=== PATIENT | male | born 1945 | race Caucasian/White ===

== ENCOUNTER 2022-01-23 04:47 | Outpatient (RCR) | payer MEDICAID, SELFPAY | END 2022-07-13 14:50 | disposition home or self-care (01) | LOC: MOW 04:47 | PROVIDERS: PCP Family Medicine; Visit Provider Family Medicine | DX: Z76.0 Encounter for issue of repeat prescription (principal) | CPT/HCPCS: S5170 ==

== ENCOUNTER 2022-01-31 12:59 | Outpatient (CLI) | payer OTHER, MEDICAID, SELFPAY ==
--- OUTSIDE RECORDS SUMMARY | 2022-03-13 16:15 | XMS_ITS | Encounter Summary ---
:1945 Author Organization Department of [facility] rs Address [address] [place] [address] Support Name Relationship Address Phone SIRIA THOMPSON Unavailable [address], [place] [address] JANEY LOPEZ Unavailable [address] [place] [address] [facility], Unavailable [address] [facility] [place] [address] Insurance Providers: All historical and current Section Date Range: From patient's date of to the date document was created.This section includes the names of all active insurance providers for the patient. Insurance Type of Plan Start of End of Group Member Insurance Policy P atient's Provider Coverage Name Policy Policy Number ID Provider's Maldonado's Relationship Coverage Coverage Telephone Name to Policy Number Maldonado MEDICARE MEDICARE PART Sep 26, PART A [id number] DONNA ALMANZAR (WNR) (M) A 2012 [phone] GIO LANDAVERDE MEDICARE MEDICARE PART Sep 26, PART B [id number] DONNAAMARILIS ALMANZAR (WNR) (M) B 2012 [id number] [phone] GIO LANDAVERDE Selected Encounter This section includes the information on record at NH for the Encounter. Date/Time Encounter Type Encounter Reason Provider Source Description Jan 17, 2022 OFFICE O/P EST PRIMARY ICD-10-CM M17.0 VAN 11:00 AM MOD 30-39 MIN CARE/MEDICINE Bilateral primary VRANKEN,BENJ A osteoarthritis of MIN E knee with Provider Comments: Bilateral Primary Osteoarthritis of Knee IHE Encounter Template Text not used by [facility] Assessments - Encounter Diagnoses This section includes the primary and secondary diagnoses documented for the Encounter. Date/Time Primary/Secondary Diagnosis Name Provider Source Diagnosis Jan 17, 2022 PRIMARY Bilateral primary DON Negrete [facility] 12:06 PM osteoarthritis of DAX CANALES knee MIN E Jan 17, 2022 SECONDARY longterm (current) DON MONTELONGO [facility] 12:06 PM use of VRDAX COREY anticoagulants MIN E Jan 17, 2022 SECONDARY Type 2 diabetes [facility] 12:06 PM mellitus with VRANKENDAX unspecified MIN E complications Jan 17, 2022 SECONDARY Unspecified atrial DON SCHWARTZ [facility] 12:06 PM fibrillation DAX CANALES MIN E Plan of Treatment: Future Appointments (+ 6 months) and Future Tests (+/- 45 days) The Plan of Treatment section includes future care activities for the patient from all NH treatmentfacilities. This section includes future appointments and future orders which are active, pending orscheduled.Future Appointments This section includes appointments that were scheduled to occur 6 months from the date of the Encounter, up to a maximum of 20 appointments. The data comes from all NH treatment facilities. Appointment Date/Time Appointment Type Appointment Facili ty Name Feb 02, 2022 11:16 AM AMBULATORY - NONE [facility] Feb 09, 2022 01:00 PM AMBULATORY - SURGERY [facility] Apr 11, 2022 11:00 AM AMBULATORY - MEDICINE [facility] Apr 30, 2022 10:30 AM AMBULATORY - PSYCHIATRY [facility] Lab Results: +/- 30 days of the encounter This section includes the Chemistry and Hematology Lab Results on record with NH for the patient. Radiology Reports and Pathology Reports are provided separately, in subsequent sections.Lab Results This section contains the Chemistry/Hematology Results that were resulted 30 days before or 30 daysafter the date of the Encounter. Date/Time Source Result Type Result - Unit Interpretation Reference Range Comment December 21, 2021 10:[address] [facility] HEMOGLOBIN A1C Specim en Type: BLOOD No comment enter ed. Ordering Provid er: VIPUL CRNAE Report Released Date/Time: Oct 11, 2021 08:32 AM Reporting Lab: [facility] [address] [place] [facility] [id number] Performing Lab: [facility] [id number] HEMOGLOBIN A1C 8.0 H 4.0-6.0 Vital Signs: All taken on the encounter date This section contains inpatient and outpatient Vital Signs collected on the date of the Encounter. Date/Time Temperature Pulse Blood Respiratory SP02 Pain Height Weight Alex dy Source Pressure Rate Mass Index Jan 17 115/77 16 /min 97 % 3 68 in 211 lb 32 [place] 2021 11:16 /min mm[Hg] [facility] Social History: Smoking Status (Most current) and Tobacco Use (All prior to encounter date) This section includes the most current, and the historical, smoking and tobacco-related health factors from the NH facility where the Encounter took place.Current Smoking Status This section includes the most current smoking, or tobacco-related health factor, from the [facility] where the Encounter took place. Date/Time Current Smoking Status Comment Facility Aug 21, 2021 01:00 PM NH-TOBACCO FORMER USER [facility] Tobacco Use History This section includes a history of the smoking, or tobacco- related health factors, that were collected on or before the date of the Encounter. The data comes from the [facility] where the Encounter took place. Date/Time Smoking Status/Tobacco Use Comment [facility] Aug 21, 2021 01:00 PM NH-TOBACCO QUIT [address] [facility] Jul 09, 2018 08:58 AM VA-TOBACCO FORMER USER [facility] Jul 09, 2018 08:58 AM NH-TOBACCO QUIT [address] [facility] Jul 18, 2017 09:58 AM FORMER TOBACCO USER 7Y OR [address] [facility] Aug 14, 2016 10:59 AM FORMER TOBACCO USER 7Y OR [facility] [facility] Jun 29, 2015 02:03 PM FORMER TOBACCO USER 7Y OR [facility] [facility] Jan 06, 2014 03:04 PM FORMER TOBACCO USER 7Y OR [facility] [facility] Jan 04, 2012 08:36 AM FORMER TOBACCO USER 7Y OR [facility] [facility] Radiology Reports: +/- 30 days of the encounter Radiology Reports For cases when an order for radiology services may have been completed prior to the date of the Encounter, the report list includes the Radiology Reports that were completed up to 30 days before date of the Encounter. For cases when an order for radiology services may have been completed after the date of the Encounter, the report list also includes the Radiology Reports that were completed up to 30days after date of the Encounter. The data comes from all NH treatment facilities. Date/Time Radiology Report Provider Source Jan 17, 2022 12:17 PM KNEE LEFT 4 VIEWS: LYNNE MARTÍNEZ [facility] GIO THOMPSON [id number] -[id number] M Exm Date: JAN 17, 2022@12:17 Req Phys: MAI MORALEZ Pat Loc: [facility]SP APACT L RES 0 2 WH 4F (Req' Img Loc: MAIN X-RAY Service: Unknown (Case [id number] COMPLETE) KNEE LEFT 4 VIEWS (RAD Adele led) CPT:70908 Reason for Study: knee pain Clinical History: IS NOT under investigation for COVID-19 or is COVID-19 negative knee pain Report Status: Verified Date Reported: JAN 17, 2022 Date Verified: JAN 17, 2022 Water Meter Reader E-Sig:/ES/LYNNE MARTÍNEZ DO Report: EXAMINATION: KNEE LEFT 3 VIEWS, KNEE RIGHT 4 EWS 01/17/2022 12:17 PM INDICATION: knee pain COMPARISON: Left knee 02/29/2016 FINDINGS: Left knee: No acute fracture or dislo cation. No suspicious bone lesion. Increased severe narrow ing of the medial compartment with minimal genu varum. Associated bony ridging along the medial joint line. Mild osteophytic l ipping in the lateral compartment. Moderate patellofemoral alfonzo int degenerative change with joint space narrowing and osteophyt e formation, slightly increased from prior. No suprapatellar joint effusion. There is atherosclerotic calcification. Right knee: No acute fracture or dislocation. N o suspicious bone lesion. Moderate narrowing of the medial compar tment with bony ridging along the joint line. Minimal genu varu m. Mild osteophytic lipping in the lateral compartment. Moderate patellofemoral joint degenerative change with j oint space narrowing and osteophyte formation. Small enthe sophyte at the superior pole the patella. No significant supra patellar joint effusion. There is atherosclerotic calcificatio n. Impression: Bilateral degenerative changes most pronounced in the medial and patellofemoral compartments. Primary Interpreting Staff: LYNNE MARTÍNEZ DO, RADIOLOGIST (Water Meter Reader) /DDS Jan 17, 2022 12:17 PM KNEE RIGHT 4 VIEWS: LYNNE MARTÍNEZ [facility] GIO THOMPSON [id number] -1945 M Exm Date: JAN 17, 2022@12:17 Req Phys: MORALEZJONATHAN MCMILLANChristos Calabrese Pat Loc: [facility] APACT L RES 0 2 WH 4F (Req' Img Loc: MAIN X-RAY Service: Unknown (Case [id number] COMPLETE) KNEE RIGHT 4 VIEWS (HETAL guerra) CPT:20239 Reason for Study: knee pain Clinical History: IS NOT under investigation for COVID-19 or is COVID-19 negative knee pain Report Status: Verified Date Reported: JAN 17, 2022 Date Verified: JAN 17, 2022 Water Meter Reader E-Sig:/ES/LYNNE MARTÍNEZ DO Report: EXAMINATION: KNEE LEFT 3 VIEWS, KNEE RIGHT 4 EWS 01/17/2022 12:17 PM INDICATION: knee pain COMPARISON: Left knee 02/29/2016 FINDINGS: Left knee: No acute fracture or dislo cation. No suspicious bone lesion. Increased severe narrow ing of the medial compartment with minimal genu varum. Associated bony ridging along the medial joint line. Mild osteophytic l ipping in the lateral compartment. Moderate patellofemoral alfonzo int degenerative change with joint space narrowing and osteophyt e formation, slightly increased from prior. No suprapatellar joint effusion. There is atherosclerotic calcification. Right knee: No acute fracture or dislocation. N o suspicious bone lesion. Moderate narrowing of the medial compar tment with bony ridging along the joint line. Minimal genu varu m. Mild osteophytic lipping in the lateral compartment. Moderate patellofemoral joint degenerative change with j oint space narrowing and osteophyte formation. Small enthe sophyte at the superior pole the patella. No significant supra patellar joint effusion. There is atherosclerotic calcificatio n. Impression: Bilateral degenerative changes most pronounced in the medial and patellofemoral compartments. Primary Interpreting Staff: LYNNE MARTÍNEZ DO, RADIOLOGIST (Water Meter Reader) /DDS Encounter Notes: All associated encounter notes This section contains the clinical notes associated to the Encounter. Date/Time Encounter Note(s) Provider Source Jan 17, 2022 11:54 INTERNAL MEDICINE NOTE: DON ALEXANDRE [facility] TITLE: MEDICINE CLINIC NOTE DAX CANALES STANDARD TITLE: INTERNAL MEDICINE NOTE DATE OF NOTE: JAN 17, 2022@11:54 ENTRY DATE: JAN 17, 2022@11:54:21 AUTHOR: PRANEETH CHAUDHARI EXP COSIGNER: URGENCY: STATUS: COMPLETED I have reviewed this patient's history, pertinen t physical examination, laboratory, and (when obtained) radiologic or ot her diagnostic tests with the Internal Medicine Resident evaluating this p atient. I agree with the treatment plan as outlined. This plan was review ed with the resident on the date of this note. 76 yo M w/ hx of AF (apixaba n), HTN, DMT2, mild cog dis, who has left knee pain. taking ibuprofen, whcih we have strongly discour aged. can use tylenol/ diclofenac gel PRN. ask him to see Ortho to get evaluated + x-rays. would liek to get PT. A1c up from 7 to 8. off metformin and diarrhea h as improved. had bariatric surgery, which is a concern in starting semaglut brady, although not an absolute CI. no clear indication for empagliflozin, from standpoint of hx of CAD or CHF, in addition to neg urine for microalb, but it se ems the more appropriate treatment to start, in an attempt to dis courage further weight gain. if vet is agreeable, will start empagliflozin, but trim ba ck glargine insulin by 20% first. /pablo/ ROWDY CHAUDHARI MD Staff Physician Signed: 01/17/2022 12:06 Jan 17, 2022 11:19 INTERNAL MEDICINE OUTPATIENT NOTE: JYOTSNA MEIER [facility] TITLE: MEDICINE CLINIC NURSING NOTE STANDARD TITLE: INTERNAL MEDICINE OUTPATIENT NOT E DATE OF NOTE: JAN 17, 2022@11:19 ENTRY DATE: JAN 17, 2022@11:19:36 AUTHOR: JYOTSNA MEIER EXP COSIGNER: URGENCY: STATUS: COMPLETED TYPE OF VISIT: Appointment Check In Type of appointment: In-person appointment REASON FOR VISIT: Check up for public health care. ALLERGIES: Patient has answered NKA VITAL SIGNS: Blood Pressure: 115/77 (01/17/2022 11:16) Pulse: 65 (01/17/2022 11:16) Respiration: 16 (01/17/2022 11:16) Temperature: 98.7 F [37.1 C] (05/13/2020 08:28) Weight: 211 lb [95.71 kg] (01/17/2022 11:16) Height: 68 in [172.7 cm] (01/17/2022 11:16) BMI: 32.1 O2 Sat: 97% (01/17/2022 11:16) Pain: 3 (01/17/2022 11:16) PAIN SCREEN: Patient is not having significant pain that the y wish to discuss with their provider today. MEDICATION Over the Counter/Herbal Medications: The patient states that they take some outside medications and/or herbals. COVID-19 Immunization: Moderna COVID-19 Vaccine given previously Patient received a prior dose of the Moderna CO VID-19 Vaccine. Date: November 29, 2021 Series: Series 4 Location: [facility] // JYOTSNA MEIER LPN STAFF DANCE COSTUME DESIGNER Signed: 01/17/2022 11:22 Jan 17, 2022 08:37 INTERNAL MEDICINE NOTE: MAI MORALEZ [facility] TITLE: MEDICINE CLINIC NOTE STANDARD TITLE: INTERNAL MEDICINE NOTE DATE OF NOTE: JAN 17, 2022@08:37 ENTRY DATE: JAN 22, 2022@08:37:45 AUTHOR: MAI MORALEZ EXP COSIGNER: URGENCY: STATUS: COMPLETED GIO SIRIABHAVYA THOMPSON is a 76 year old MALE wit h the following chief complaint: Nurse's Note Reviewed. Follow up for HPI/ROS: Gio Thompson is a pleasant 76 YO male with a Pmhx significant for HTN, T2DM, bariatric surgery, atrial fibrillation on apixab an, bipolar disorder and generalized anxiety disorder who came to the clinic today along with his legal Guardian Janey for a routine follow up and fernanda luation of knee pain Left > right. Patient has been having for a while however now it is getting difficult to manage. He is taking Ibuprofen and found relieve . He experiences pain almost every day.It feels achy/sore. Activity makes it worse. Left >right. No recent injury to the knee. Has been using dicol fenac gel as well. Interested in doing physical therapy at a nearby facility instead of NH. He did not notice any joint redness, warmth or tenderness. Patient was on metformin and insulin for his alonso betes. However he has stopped taking metformin a few weeks ago on his own. He has a long standing history of diarrhea from metformin. He was previously able to deal with it now he thinks that it is affecting his quality og life so he s topped taking it. Since then he did not experience diarrhea. He is currently taking 15 U of glargine. His most recent A1c was 8% which was up by 1% from heriberto heller. Past medical history/Active Problems: Active problems - Computerized Problem List is t he source for the followin. Essential hypertension (SNOMED CT 13628527) 2. Major depressive disorder (SNOMED CT 9866833 00) 3. Generalized anxiety disorder (SNOMED CT 2180 1239) 4. Primary Obesity 5. Bronchiectasis (SNOMED CT 49796991) 6. Gastroesophageal Reflux Disorder * 7. Bariatric Surgery Status 8. Cataracts (SNOMED CT 90841972) 9. Hypermetropia/Hyperopia 10. Astigmatism, Unspec 11. Presbyopia 12. Atrial fibrillation (SNOMED CT 21333263) 13. Varicose veins of lower extremity 14. Compulsive gambling 15. Bipolar disorder (SNOMED CT 15494088) 16. Mild cognitive disorder 17. Type 2 diabetes mellitus 18. Long-term current use of anticoagulant Allergies: Patient has answered NKA Active Outpatient Medications (excluding Supplie s): Outpatient Medications Status 1) ACCU-CHEK GUIDE (GLUCOSE) TEST STRIP USE 1 ST RIP ACTIVE EVERY DAY TO CHECK BLOOD SUGAR--USE WITHIN 3 MINUTES OF REMOVING FROM CONTAINER 2) ALBUTEROL 90MCG (CFC-F) 200D ORAL INHL INHALE 1-2 ACTIVE PUFFS BY INHALATION EVERY 4 HOURS NEEDED FOR IMMEDIATE RELIEF OF SHORTNESS OF BREATH *SHAKE WELL* 3) APIXABAN 5MG TAB TAKE ONE TABLET BY MOUTH JESUS RY 12 ACTIVE HOURS TO PREVENT AND/OR TREAT BLOOD CLOTS 4) ATORVASTATIN CALCIUM 20MG TAB TAKE ONE-HALF T ABLET BY ACTIVE MOUTH AT BEDTIME 5) CALCIUM CARB 500MG (CA 200MG) CHEW TAB CHEW O NE ACTIVE TABLET BY MOUTH TWICE A DAY 6) CHOLECALCIF 25MCG (D3-1,000UNIT) TAB TAKE ONE TABLET ACTIVE (S) BY MOUTH EVERY DAY 7) CYANOCOBALAMIN 1000MCG TAB TAKE ONE TABLET BY MOUTH ACTIVE EVERY DAY 8) DICLOFENAC NA 1% TOP GEL APPLY 2 GRAMS TOPICA LLY FOUR ACTIVE TIMES A DAY NEEDED TO AFFECTED AREA FOR PAIN . *USE DOSE CARD IN BOX TO MEASURE DOSE. MAX 32 G LINDSEY PER DAY. 9) EMPAGLIFLOZIN 25MG TAB TAKE ONE-HALF TABLET B Y MOUTH ACTIVE EVERY MORNING 10) INSULIN,GLARGINE 100 UNT/ML 3ML SOLOSTAR INJ ECT 12 ACTIVE UNITS UNDER THE SKIN EVERY DAY 11) MAGNESIUM OXIDE 400MG TAB TAKE ONE TABLET BY MOUTH ACTIVE EVERY DAY 12) METOPROLOL SUCCINATE 50MG SA TAB TAKE ONE TA BLET BY ACTIVE MOUTH EVERY DAY FOR HEART AND BLOOD PRESSURE 13) MULTIVIT/OPHTH AREDS2/LUTE/ZEAX CAP/TAB TAKE 1 ACTIVE CAP/TAB BY MOUTH TWICE A DAY WITH MEALS 14) MULTIVITAMIN CAP/TAB TAKE 1 TABLET BY MOUTH EVERY DAY ACTIVE 15) OMEPRAZOLE 20MG EC CAP TAKE TWO CAPSULES BY MOUTH ACTIVE EVERY DAY ON AN EMPTY STOMACH, AT LEAST 30 ELIF TIMO PRIOR TO A MEAL FOR REFRACTORY GERD 16) QUETIAPINE FUMARATE 25MG TAB TAKE ONE TO THR EE TABS ACTIVE BY MOUTH AT BEDTIME FOR SLEEP MEDICATION RECONCILIATION Outpatient At this visit I have reviewed the medication li st, and discussed relevant medications with the patient/surrogate . An updated patient medication list was given to the participant(s). ( ) No Change (X ) Change/New: I have noted this on the papa garcía's copy of the medication list. Education on NEW Medication: I have reviewed the medication list for possible drug:drug interactions or contraindicat ions prior to ordering NEW medications during this visit. (X )Patient instructed. I noted new medication on patient's copy of the medication list. Patient sent to Pharmacist for education on new medication. ( )Patient ( )Family Member ( )Caregiver indica levi readiness to learn and has been instructed on action, dose, frequency and side effects of the new medication and I noted new medication on patricia mcclain's copy of the medication list. ( ) Verbalizes understanding of instructions. ( ) Needs additional reinforcement of instructi ons(sent to Pharmacist). ( )Patient unable to participate in learning/in struction. EXAM: VS: Temp: 98.7 F [37.1 C] (05/13/2020 08:28) BP: 115/77 (01/17/2022 11:16) Pulse:65 (01/17/2022 11:16) Resp: 16 (01/17/2022 11:16) Pain: 3 (01/17/2022 11:16) Weight: WEIGHTS IN LAST 6 MONTHS: 211 (JAN 17, 2022@11:16:17) 218 (OCT 04, 2021@14:10:28) O2 sat: 97% (01/17/2022 11:16) General:Pleasant, alert and oriented X3, no foca l deficit HEENT:NC/AT,MMM Lungs:clear breath sounds bilaterally, no wheezi ng or crackles CV:normal rate, regular rhythm Abdomen:soft,non tender Extremities:warm, well perfused Skin:visible skin appears wnl Neuro:alert and oriented X3, no focal deficit Data/Labs: LAB RESULTS LAST 48 HRS - NONE FOUND Assessment and Plan: Gio Thompson is a pleasant 76 YO male with a Pmhx significant for HTN, T2DM, bariatric surgery, atrial fibrillation on apixab an, bipolar disorder and generalized anxiety disorder who came to the clinic today along with his legal Guardian Janey for a routine follow up and fernanda luation of knee pain Left > right. #Bilateral Knee pain L>R #Possible OA patient reported bilateral knee pain L>R for a w hile. No trauma, redness, warmth or edema reported. Takes Ibuprofen. Also applies diclofenac gel sometimes. He has hx of left knee trauma in 2016 . Xray at that time showed degenrative changes with moderate medial compartment narrowing. He was managed conservatively. -Ordered Bilaetral knee Xray -Discussed supportive management with Ice, tylen ol, Physical therapy. -patient prefers to have PT at a nearby facility -Strongly discouraged use of oral NSAID as patie nt currently on DOAC. Okay to use Tylenol instead. -Encouraged using topical diclofenac gel. -Orthopedics referral for steroid shot if above measures insufficient to control his pain. #T2DM Recent hemoglobin A1c is at 8. patient has stopp ed taking metformin due to diarrhea that was affecting his quality of life. Current BMI is 32.15 so increasing insulin dose would not be appropriate . He has hx of bariatric surgery so semaglutide is not an appropr iate option. Would start himn on SGLT2 inhibitor even though he does not have hx of CHF /CKD/CAD. -discontinued Metformin -start Empagliflozin 12.5 mg daily (discussed ri sk of UTI) -decrease insulin to 12 U daily to avoid hypogly cemia due to starting Empagliflozin. -RTC in 3 months or sooner with PCP. Patient staffed with Dr. Chaudhari Education on Treatment Plan: Patient indicates readiness to learn, verbalizes understanding, agreement and satisfaction with the treatment plan. Denies fur ther questions. Patient indicates readiness to learn and has bee n instructed on action, dose, frequency, and side effects of medications. Audrey ent verbalizes understanding. The medication list above was reviewed with the patient at today's visit. I have indicated discrepancies under each medica tion that is not being taken as prescribed. I have updated the medicine s under the med tab as appropriate. /pablo/ MAI MORALEZ MD RESIDENT Signed: 01/22/2022 09:41
--- OUTSIDE RECORDS SUMMARY | 2022-03-13 16:15 | XMS_ITS | Continuity of Care Document ---
:1945 Author Organization [facility] Care Team Providers Name Role Phone [facility] Unavailable Unavailable Problems Combined list of problems from Department of Defense and Veterans Affairs facilities. It does not include entries that were removed or entered in error. Problem Status Onset Problem Type Date of Comments Source Date Resolution Astigmatism, Unspec Active Condition [facility] Atrial fibrillation Active Condition [place] (SNOMED CT 09287573) [facility] Bariatric Surgery [place] Condition [place] Status (ICD-9-CM [facility] V45.86) Bipolar disorder Active Condition [place] (SNOMED CT 12091527) [facility] Bronchiectasis Active Condition [place] (SNOMED CT 28583573) [facility] Cataracts (SNOMED CT Active Condition [place] [id number]) [facility] Compulsive gambling Active Condition [facility] Essential Active Condition [place] hypertension (SNOMED [place] HCS CT 34040917) Gastroesophageal Active Condition [place] Reflux Disorder * [facility] (ICD-9-CM 530.81) Generalized anxiety Active Condition [place] disorder (SNOMED CT [place] [facility] 58223241) Hypermetropia/Hyperop Active Condition [place] ia [facility] Long-term current use Active Condition [place] of anticoagulant [facility] Major depressive Active Condition [place] disorder (SNOMED [place] [facility] 007167040) Mild cognitive Active Condition [place] disorder [facility] Presbyopia Active [place] [facility] Primary Obesity Active Condition [place] (ICD-9-CM 278.00) [facility] Type 2 diabetes Active Condition [place] mellitus [facility] Varicose veins of Active Condition [place] lower extremity [facility] Diagnosis: ICD-10-CM active Diagnosis [place] M17.0 Bilateral [facility] primary osteoarthritis of kneew[place] Provider Comments: Bilateral primary osteoarthritis of knee Diagnosis: ICD-10-CM active Diagnosis [place] M17.0 Bilateral [facility] primary osteoarthritis of [place] Provider Comments: Bilateral Primary Osteoarthritis of Knee Diagnosis: ICD-10-CM active Diagnosis [place] Z23 Encounter for [facility] immunizationwith Provider Comments: Encounter for any immunization Diagnosis: ICD-10-CM active Diagnosis [place] F33.1 Major [facility] depressive disorder, recurrent, moderatewith Provider Comments: Major depressive disorder (SCT 338713896) Diagnosis: ICD-10-CM active Diagnosis [place] Z79.01 alf [facility] (current) use of anticoagulantswith Provider Comments: Long-term current use of anticoagulant (SNOMED CT 449670232) Diagnosis: ICD-10-CM active Diagnosis [place] I10 Essential [facility] (primary) hypertensionwith Provider Comments: Essential hypertension (SCT 43146529) Diagnosis: ICD-10-CM active Diagnosis [place] F39 Unspecified mood [facility] [affective] disorderwith Provider Comments: Mood disorder (SCT 77495477) Diagnosis: ICD-10-CM active Diagnosis [place] 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 Medications provided include 1) outpatient medications from the last 15 months, and 2) patient-reported medications. Medication Details Route Status Patient Prescription Prescription Last Ordering Order Source Instructions Expires Number Dispense Provider Date Date ALBUTEROL INHALE INHALA ACTIVE 10/05/2022 [id number] CR[place]KEITH 10/04/ [place] 90MCG/ACTUA 1-2 TION 2 FFREY J 2021 [place] A T (CFC-F) PUFFS BY [facility] INHL,ORAL,8 INHALATI .5GM DOSE ON EVERY COUNTER 4 HOURS NEEDED FOR IMMEDIAT E RELIEF OF SHORTNES S OF BREATH *SHAKE WELL* APIXABAN TAKE ONE ORALLY ACTIVE 2022 [id number] RICHA SUE 10/11/ [place] 5MG TAB TABLET 2 NIFER KAYLA 2021 [place] [facility] BY MOUTH HCS EVERY 12 HOURS TO PREVENT AND/OR TREAT BLOOD CLOTS APIXABAN TAKE ONE ORALLY DISCONT 11/03/2021 [id number] DEVIN LEVYKEITH 10/04/ [place] 5MG TAB TABLET INUED 2 FFREY J 2021 [place] [facility] BY MOUTH [facility] EVERY 12 HOURS TO PREVENT BLOOD CLOTS ARIPIPRAZOL TAKE ORALLY ACTIVE 01/27/2023 [id number] NEHEMIAH SON, [place] E 30MG TAB ONE-HALF 2 USHA 2021 [place] [facility] A TABLET [facility] BY MOUTH EVERY DAY ARIPIPRAZOL TAKE ORALLY DISCONT 01/16/2022 [id number] THOMP SON, [place] E 30MG TAB ONE-HALF INUED 2 LORETA E 2021 [place] [facility] TABLET HCS BY MOUTH EVERY DAY ATORVASTATI TAKE ORALLY ACTIVE 10/05/2022 [id number] KEITH CRANE [place] CA 20MG ONE-HALF 2 [facility] J 2021 [place] [facility] TAB TABLET HCS BY MOUTH AT BEDTIME BUPROPION TAKE ONE ORALLY ACTIVE 01/27/2023 [id number] AT NESSAON, [place] HCL 150MG TABLET 2 USHA 2021 [place] [facility] 24HR TAB,SA BY MOUTH [facility] EVERY MORNING BUPROPION TAKE ONE ORALLY DISCONT 01/16/2022 [id number] TH OMPSON, [place] HCL 150MG TABLET INUED 2 LORETA E 2021 [place] [facility] 24HR TAB,SA BY MOUTH HCS EVERY MORNING CALCIUM CHEW ONE ORALLY ACTIVE 10/05/2022 [id number] KEITH RCANE 10/04/ [place] CARBONATE TABLET 2 [facility] 2021 [place] [facility] 500MG BY MOUTH HCS TAB,CHEWABL TWICE A E DAY CHOLECALCIF TAKE ONE ORALLY ACTIVE 10/05/2022 [id number] H KEITH EATON 10/04/ [place] GABRIELA 25MCG TABLET 2 [facility] 2021 [place] [facility] A (1,000UNIT) BY MOUTH HCS TAB EVERY DAY CYANOCOBALA TAKE ONE ORALLY ACTIVE 10/05/2022 [id number] H KEITH EATON 10/04/ [place] MIN 1000MCG TABLET 2 [facility] 2021 [place] [facility] TAB BY MOUTH HCS EVERY DAY DICLOFENAC APPLY 4 TOPICA ACTIVE 02/10/2023 [id number] HARPREET [place]NE[place] 02/09/ [place] NA 1% GRAMS LLY 2 HN H 2021 [place] [facility] GEL,TOP TOPICALL HCS Y FOUR TIMES A DAY NEEDED TO AFFECTED AREA FOR PAIN. *USE DOSE CARD IN BOX TO MEASURE DOSE. MAX 32 GRAMS PER DAY. DICLOFENAC APPLY 2 TOPICA DISCONT 10/05/2022 [id number] ADDIE TURPINKEITH 10/04/ [place] NA 1% GRAMS LLY INUED 2 2021 [place] [facility] GEL,TOP TOPICALL HCS Y FOUR TIMES A DAY NEEDED TO AFFECTED AREA FOR PAIN. *USE DOSE CARD IN BOX TO MEASURE DOSE. MAX 32 GRAMS PER DAY. EMPAGLIFLOZ TAKE ORALLY ACTIVE 01/18/2023 [id number] KIRTS JASKARAN 01/18/ [place] IN 25MG TAB ONE-HALF 2 2021 [place] [facility] TABLET HCS BY MOUTH EVERY MORNING INSULIN,GLA INJECT SUBCUT ACTIVE 01/18/2023 [id number] PARK NMAI 01/18/ [place] RGINE,HUMAN 12 UNITS ANEOUS 2 2021 [place] [facility] 100 UNIT/ML UNDER HCS INJ,SOLOSTA THE SKIN R,3ML EVERY DAY INSULIN,GLA INJECT SUBCUT DISCONT 10/06/2022 [id number] ADDIE OSMANGAELKEITH 10/08/ [place] RGINE,HUMAN 15 UNITS ANEOUS INUED 2 2021 [place] [facility] 100 UNIT/ML UNDER (EDIT) HCS INJ,SOLOSTA THE SKIN R,3ML EVERY DAY MAGNESIUM TAKE ONE ORALLY ACTIVE 10/06/2022 [id number] DEVIN LEVY,KEITH 10/08/ [place] OXIDE 400MG TABLET 2 2021 [place] [facility] TAB BY MOUTH HCS EVERY DAY METFORMIN TAKE TWO ORALLY DISCONT 10/05/2022 [id number] KEITH STERN 10/04/ [place] HCL 500MG TABLETS INUED 2 2021 [place] [facility] A 24HR TAB,SA BY MOUTH HCS TWICE A DAY METOPROLOL TAKE ONE ORALLY ACTIVE 10/05/2022 [id number] H KEITH EATON 10/04/ [place] SUCCINATE TABLET 2 2021 [place] [facility] 50MG TAB,SA BY MOUTH HCS EVERY DAY FOR HEART AND BLOOD PRESSURE MULTIVIT/OP TAKE 1 ORALLY ACTIVE 12/12/2022 [id number] DEVIN LEVY,KEITH 12/12/ [place] HTH CAP/TAB 2 2021 [place] [facility] AREDS2/LUTE BY MOUTH HCS IN/ZEAXANTH TWICE A IN CAP/TAB DAY WITH MEALS MULTIVITAMI TAKE 1 ORALLY ACTIVE 10/05/2022 [id number] KEITH DORADO 10/04/ [place] NS CAP/TAB TABLET 2 JONNY 2021 [place] [facility] A BY MOUTH HCS EVERY DAY OMEPRAZOLE TAKE TWO ORALLY ACTIVE 01/11/2023 [id number] MO JULIA, 01/11/ [place] 20MG CAP,EC CAPSULES 2 MARIUSZ 2022 O [place] [facility] BY MOUTH M HCS EVERY DAY ON AN EMPTY STOMACH, AT LEAST 30 MINUTES PRIOR TO A MEAL FOR REFRACTO RY GERD OMEPRAZOLE TAKE ONE ORALLY DISCONT 10/05/2022 [id number] H KEITH EATON 10/04/ [place] 20MG CAP,EC CAPSULE INUED 2 JONNY 2021 [place] [facility] BY MOUTH (EDIT) HCS EVERY DAY ON AN EMPTY STOMACH, AT LEAST 30 MINUTES PRIOR TO A MEAL FOR REFRACTO RY GERD QUETIAPINE TAKE ONE ORALLY ACTIVE 01/27/2023 [id number] A TKINSON, 01/30/ [place] FUMARATE TO THREE 2 2021 [place] [facility] 25MG TAB TABS BY [facility] MOUTH AT BEDTIME FOR SLEEP QUETIAPINE TAKE ONE ORALLY DISCONT 08/22/2022 [id number] H ERMANSEN 08/21/ [place] FUMARATE TO THREE INUED 2 EMMY A 2021 [place] [facility] 25MG TAB TABS BY [facility] MOUTH AT BEDTIME FOR SLEEP VENLAFAXINE TAKE ONE ORALLY ACTIVE 01/27/2023 [id number] PURI, 01/30/ [place] HCL 150MG CAPSULE 2 USHA 2021 [place] [facility] 24HR CAP,SA BY MOUTH [facility] EVERY DAY VENLAFAXINE TAKE ONE ORALLY DISCONT 01/16/2022 [id number] TANGELA, 10/18/ [place] HCL 150MG CAPSULE INUED 2 LORETA Baldo 2021 [place] [facility] 24HR CAP,SA BY MOUTH HCS EVERY DAY Allergies, Adverse Reactions, Alerts Combined list of allergies from Department of Defense and Veterans Affairs facilities. It does not include entries that were removed or entered in error. Substance Category Reaction Severity Reaction Status Date Comments S ource type Reported SULFAMETHOXA Propensity Acute Propensity active [place] ZOLE to adverse renal to adverse 2 LI S VA reactions impairment reactions H CS to drug to drug (finding) (finding) Immunizations Combined list of available immunizations from the Department of Defense and Veterans Affairs facilities. Immunization Series Date Administered Site Reaction Lot CVX Drug St atus Comments Source Given By Number Code [employer] Worker ZOSTER 2 complet [place] RECOMBINANT 2021 ed [place] [facility] COVID-19 4 complet [place] (MODERNA), 2021 ed JIM S VA MRNA, LNP-S, H CS PF, 100 MCG/0.5ML DOSE OR 50 MCG/0.25ML DOSE ZOSTER 1 complet [place] RECOMBINANT 2021 ed [place] [facility] COVID-19 3 complet [place] (MODER[place]), 2020 ed JIM S [facility] MRNA, LNP-S, H CS PF, 100 MCG/0.5ML DOSE OR 50 MCG/0.25ML DOSE INFLUENZA, complet [place] UNSPECIFIED 2020 ed [place] [facility] FORMULATION HC S COVID-19 1 complet [place] (MODERNA), 2020 ed JIM S [facility] MRNA, LNP-S, H CS PF, 100 MCG/0.5 ML DOSE COVID-19 1 complet [place] (MODERNA), 2020 ed JIM S [facility] MRNA, LNP-S, H CS PF, 100 MCG/0.5 ML DOSE INFLUENZA, complet [place] INJECTABLE, 2019 ed [place] [facility] QUADRIVALENT, HCS PRESERVATIVE FREE ZOSTER 1 complet [place] RECOMBINANT 2018 ed [place] [facility] INFLUENZA, complet [place] SEASONAL, 2018 ed [place] [facility] INJECTABLE, HC S PRESERVATIVE FREE INFLUENZA, complet [place] HIGH DOSE 2017 ed [place] [facility] SEASONAL HCS PNEUMOCOCCAL complet MERC K, [place] POLYSACCHARID 2017 ed [id number], [place] [facility] E PPV23 EX HCS 01/01/2018 INFLUENZA, complet [place] HIGH DOSE 2017 ed [place] [facility] SEASONAL HCS PNEUMOCOCCAL complet 000 [place] CONJUGATE PCV 2016 ed [place] [facility] 13 HCS INFLUENZA, complet [place] SEASONAL, 2014 ed [place] [facility] INJECTABLE HCS INFLUENZA, complet [place] SEASONAL, 2013 ed [place] [facility] INJECTABLE HCS INFLUENZA, complet [place] UNSPECIFIED 2012 ed [place] [facility] FORMULATION HC S TDAP complet 2R45M/10/ M [place] 2012 ed 04/12 [place] HCS ZOSTER LIVE complet J0016 98/0 [place] 2012 ed 8May14 [place] [facility] INFLUENZA, complet [place] UNSPECIFIED 2012 ed [facility] FORMULATION HC S INFLUENZA, complet [place] UNSPECIFIED 2010 ed [facility] [place] [facility] FORMULATION HC S PNEUMOCOCCAL, complet [place] UNSPECIFIED 2010 ed [place] [facility] FORMULATION HC S TD(ADULT) complet [place] UNSPECIFIED 2007 ed [place] [facility] FORMULATION HC S Results Combined list of recent chemistry, hematology and other laboratory results from Department of Defense and Veterans Affairs, ranging from 15 months to all on record, depending upon the facility. Order Results Value Reference Date Interpretation Specimen Commen ts Source Name Range HEMOGLOBI HEMOGLOBIN 8.0 4.0 - 6.0 12/21 H Specimen Type: BLOOD [place] A1C A1C/HEMOGLO /2021 No comment e ntered. IS [facility] BIN.TOTAL Ordering Prov ider: VIPUL CRANE IN BLOOD Report Release d Date/Time: Oct 11, 2021 08:32 AM Reporting Lab: [facility] [address] [facility] [place] [address] Performing Lab: [facility] [place] [address] VITAMIN E ALPHA 11.9 5.7 - 19.9 10/04 Specimen Ty pe: SERUM [place] TOCOPHEROL /2021 Comment: Lev els of alpha-tocopherol <5 mg/L are consistent with Vitamin E deficiency in adults. Vitamin supplementation within 24 hours prior to blood draw may affect the accuracy of the results IS [facility] [MASS/VOLUM . This test was developed and its analytical performance characteristics have been determined by [employer]. It has not been cleared or approved by the U.S. Food a E] IN SERUM nd Drug Admi nistration. This assay has been validated pursuant to the CLIA regulations and is used for clinical purposes. Test Performed by [facility], [employer], [address] [place], [place] Devante Meyer M.D., Ph.D., Director of Laboratories , CLIA [id number] Ordering Provid er: VIPUL CRANE Report Released Date/Time: Oct 04, 2021 02:12 PM Reporting Lab: [facility] [address] [facility] [place] [address] Performing Lab: [address] VITAMIN E BETA+GAMMA <1.0 - 4.3 10/04 Specimen Ty pe: SERUM [place] TOCOPHEROL /2021 Comment: Lev els of alpha-tocopherol <5 mg/L are consistent with Vitamin E deficiency in adults. Vitamin supplementation within 24 hours prior to blood draw may affect the accuracy of the results IS [place] HCS [MASS/VOLUM . This test was developed and its analytical performance characteristics have been determined by [employer] [place], [place]. It has not been cleared or approved by the U.S. Food a E] IN SERUM nd Drug Admi nistration. This assay has been validated pursuant to the CLIA regulations and is used for clinical purposes. Test Performed by [facility], [employer], [address] [place], [place] Devante Meyer M.D., Ph.D., Director of Laboratories , CLIA [id number] Ordering Provid er: VIPUL CRANE Report Released Date/Time: Oct 04, 2021 02:12 PM Reporting Lab: [facility] [address] [facility] [place] [address] Performing Lab: [address] VITAMIN A RETINOL 60 38 - 98 10/04 Specimen Type: SERUM [place] [MASS/VOLUM /2021 Comment: Vi tamin supplementation within 24 hours prior to blood draw may affect the accuracy of the results. This test was developed and its analytical performance characteristics have been determined IS [place] HCS E] IN SERUM by [employer] [place]. It has not been cleared or approved by the U.S. Food and Drug Administration. This assay has been validated pursuant to the CLIA regulations and is [place] PLASMA used for clini lance purposes. Test Performed by [facility], [facility], [address] [place] [address] Devante Meyer M.D., Ph.D., Director of Laboratories , CLIA [id number] Ordering Provid er: VIPUL CRANE Report Released Date/Time: Oct 04, 2021 02:12 PM Reporting Lab: [facility] [address] [place] [address] Performing Lab: [address] 12 COBALAMIN 604 213 - 816 10/04 Specimen Typ e: SERUM [place] (VITAMIN /2021 No comment ente red. IS [facility] B12) Ordering Provid er: VIPUL CRANE [MASS/VOLUM Report Rele ased Date/Time: Oct 04, 2021 02:12 PM E] IN SERUM Reporting L ab: [facility] OR PLASMA [facility] [address] Performing Lab: [facility] [place] [address] TSH THYROTROPIN 1.78 0.35 - 10/04 Specimen Typ e: PLASMA [place] W/REFLEX [UNITS/VOLU 4.94 No comment entered. IS [facility] TO FREE ME] IN Ordering Provid er: VIPUL CRANE T4 SERUM OR Report Release d Date/Time: Oct 04, 2021 02:12 PM PLASMA Reporting Lab: [facility] [address] [place] [address] Performing Lab: [facility] [place] [address] FOLATE FOLATE 17.7 7.0 10/04 Specimen Type: S MAKI [place] [MASS/VOLUM /2021 No comment e ntered. IS [facility] E] IN SERUM Ordering Pr ovider: VIPUL CRANE [place] PLASMA Report Releas ed Date/Time: Oct 04, 2021 02:12 PM Reporting Lab: [facility] [address] [place] [address] Performing Lab: [facility] [place] [address] VIT D 25-HYDROXYV 79 12 - 50 03/ H Specimen Typ e: SERUM [place] 25-OH,TOT ITAMIN D3 /2021 No comment e ntered. IS [facility] AL [MASS/VOLUM Ordering Pr ovider: VIPUL CRANE] IN SERUM Report Rele ased Date/Time: Oct 04, 2021 02:12 PM OR PLASMA Reporting Lab : [facility] [address] [facility] [place] [address] Performing Lab: [facility] [address] [facility] [place] [address] HEMOGLOBI HEMOGLOBIN 7.1 4.0 - 6.0 03 H Specimen Type: BLOOD [place] N A1C A1C/HEMOGLO /2021 No comment e ntered. IS [facility] BIN.TOTAL Ordering Prov ider: VIPUL CRANE IN BLOOD Report Release d Date/Time: Oct 04, 2021 02:12 PM Reporting Lab: [facility] [address] [facility] [place] [address] Performing Lab: [facility] [address] [facility] [place] [address] LIPID CHOLESTEROL 114 <199 - 199 10/04 Specimen Type: PLASMA [place] PANEL,NON [MASS/VOLUM /2021 No comment entered. IS [facility] -FASTING E] IN SERUM Ordering P rovider: VIPUL CRANE [place] PLASMA Report Releas ed Date/Time: Oct 04, 2021 02:12 PM Reporting Lab: [facility] [address] [facility] [place] [address] Performing Lab: [facility] [address] [facility] [place] [address] LIPID CHOLESTEROL 45 40 10/04 Specimen Typ e: PLASMA [place] PANEL,NON IN HDL /2021 No comment ent ered. IS [facility] -FASTING [MASS/VOLUM Ordering P rovider: VIPUL CRANE] IN SERUM Report Rele ased Date/Time: Oct 04, 2021 02:12 PM [place] PLASMA Reporting Lab : [facility] [address] [facility] [place] [address] Performing Lab: [facility] [address] [facility] [place] [address] LIPID CHOLESTEROL 55 <99 - 99 10/04 Specimen Ty pe: PLASMA [place] PANEL,NON IN LDL /2021 No comment ent ered. IS [facility] -[facility] [MASS/VOLUM Ordering P rovider: VIPUL CRANE] IN SERUM Report Rele ased Date/Time: Oct 04, 2021 02:12 PM OR PLASMA Reporting Lab : [facility] BY [address] [address] CALCULATION Performing Lab: [facility] [address] [place] [address] LIPID CHOLESTEROL 14 <29 - 29 10/04 Specimen Ty pe: PLASMA [place] PANEL,NON IN VLDL /2021 No comment ent ered. IS [place] [facility] -FASTING [MASS/VOLUM Ordering P rovider: VIPUL CRANE] IN SERUM Report Rele ased Date/Time: Oct 04, 2021 02:12 PM [place] PLASMA Reporting Lab : [facility] BY [place] [address] CALCULATION Performing Lab: [facility] [address] [place] [address] LIPID CHOLESTEROL 69 <129 - 129 10/04 Specimen Type: PLASMA [place] PANEL,NON NON HDL /2021 No comment ent ered. IS [place] [facility] -FASTING [MASS/VOLUM Ordering P rovider: VIPUL CRANE] IN SERUM Report Rele ased Date/Time: Oct 04, 2021 02:12 PM OR PLASMA Reporting Lab : [facility] [address] [place] [address] Performing Lab: [facility] [place] [address] LIPID TRIGLYCERID 69 <149 - 149 10/04 Specimen Type: PLASMA [place] PANEL,NON E /2021 No comment ent ered. IS [place] [facility] -FASTING [MASS/VOLUM Ordering P rovider: VIPUL CRANE] IN SERUM Report Rele ased Date/Time: Oct 04, 2021 02:12 PM OR PLASMA Reporting Lab : [facility] [place] [address] Performing Lab: [facility] [address] [facility] [place] [address] CBC LEUKOCYTES 8.98 4.0 - 11.0 10/04 Specimen T ype: BLOOD [place] [#/VOLUME] /2021 No comment en tered. IS [facility] IN BLOOD BY Ordering Pr ovider: VIPUL CRANE AUTOMATED Report Releas ed Date/Time: Oct 04, 2021 02:12 PM COUNT Reporting Lab: [facility] [address] [place] [address] Performing Lab: [facility] [address] [facility] [place] [address] CBC ERYTHROCYTE 4.19 4.6 - 6.2 10/04 L Specimen T ype: BLOOD [place] S /2021 No comment enter ed. IS [facility] [#/VOLUME] Ordering Pro vider: VIPUL CRANE IN BLOOD BY Report Rele ased Date/Time: Oct 04, 2021 02:12 PM AUTOMATED Reporting Lab : [facility] [address] [facility] [place] [address] Performing Lab: [facility] [address] [facility] [place] [address] CBC HEMOGLOBIN 12.1 13.5 - 03 L Specimen Type : BLOOD [place] [MASS/VOLUM 17.9 /2021 No comment e ntered. IS [facility] E] IN BLOOD Ordering Pr ovider: VIPUL CRANE Report Released Date/Time: Oct 04, 2021 02:12 PM Reporting Lab: [facility] [address] [place] [address] Performing Lab: [facility] [address] [facility] [place] [address] CBC HEMATOCRIT 36.4 41 - 54 10/04 L Specimen Type : BLOOD [place] [VOLUME /2021 No comment enter ed. IS [place] [facility] FRACTION] Ordering Prov ider: VIPUL CRANE OF BLOOD BY Report Rele ased Date/Time: Oct 04, 2021 02:12 PM AUTOMATED Reporting Lab : [facility] [place] [address] Performing Lab: [facility] [address] [place] [address] CBC MCV 86.9 80 - 100 10/04 Specimen Type: BLOOD [place] [ENTITIC /2021 No comment ente red. IS [facility] VOLUME] BY Ordering Pro vider: VIPUL CRANE AUTOMATED Report Releas ed Date/Time: Oct 04, 2021 02:12 PM COUNT Reporting Lab: [facility] [address] [facility] [place] [address] Performing Lab: [facility] [address] [facility] [place] [address] CBC MCH 28.9 27 - 33 10/04 Specimen Type: B LOOD [place] [ENTITIC /2021 No comment ente red. IS [facility] MASS] BY Ordering Provi tosin: VIPUL CRANE AUTOMATED Report Releas ed Date/Time: Oct 04, 2021 02:12 PM COUNT Reporting Lab: [facility] [address] [place] [address] Performing Lab: [facility] [address] [address] CBC MCHC 33.2 32.0 - 10/04 Specimen Type: B LOOD [place] [MASS/VOLUM 37.5 /2021 No comment e ntered. IS [facility] E] BY Ordering Provid er: VIPUL CRANE AUTOMATED Report Releas ed Date/Time: Oct 04, 2021 02:12 PM COUNT Reporting Lab: [facility] [address] [place] [address] Performing Lab: [facility] [address] [place] [address] CBC PLATELETS 279 150 - 400 10/04 Specimen Typ e: BLOOD [place] [#/VOLUME] /2021 No comment en tered. IS [place] [facility] IN BLOOD BY Ordering Pr ovider: VIPUL CRANE AUTOMATED Report Releas ed Date/Time: Oct 04, 2021 02:12 PM COUNT Reporting Lab: [facility] [address] [place] [facility] [place] [address] Performing Lab: [facility] [address] [facility] [place] [address] CBC PLATELET 10.5 7.4 - 10.4 03 H Specimen Typ e: BLOOD [place] MEAN VOLUME /2021 No comment e ntered. IS [place] [facility] [ENTITIC Ordering Provi tosin: VIPUL CRANE VOLUME] IN Report Relea sed Date/Time: Oct 04, 2021 02:12 PM BLOOD BY Reporting Lab: [facility] AUTOMATED [address] [facility] [place] [address] COUNT Performing Lab: [facility] [address] [facility] [place] [address] CBC ERYTHROCYTE 13.2 11.5 - 10/04 Specimen Typ e: BLOOD [place] DISTRIBUTIO 14.5 /2021 No comment e ntered. [place] [facility] N WIDTH Ordering Provid er: VIPUL CRANE [RATIO] BY Report Relea sed Date/Time: Oct 04, 2021 02:12 PM AUTOMATED Reporting Lab : [facility] [place] [address] Performing Lab: [facility] [address] [facility] [place] [address] Vital Signs Combined list of inpatient and outpatient Vital Signs from Department of Defense and Veterans Affairs, ranging from 12 months to all on record, depending upon the facility. Vital Sign Value Date Comments Source SYSTOLIC BLOOD PRESSURE 115 01/17/2022 11:16:17 [facility] DIASTOLIC BLOOD PRESSURE 77 01/17/2022 11:16:17 [facility] PULSE OXIMETRY 97% 01/17/2022 11:16:17 [facility] WEIGHT 211 01/17/2022 11:16:17 [facility] BMI 32kg/m2 01/17/2022 11:16:17 [facility] PAIN 3 01/17/2022 11:16:17 [facility] HEIGHT 68 01/17/2022 11:16:17 [facility] PULSE 65 01/17/2022 11:16:17 [facility] RESPIRATION 16 01/17/2022 11:16:17 [facility] SYSTOLIC BLOOD PRESSURE 138 10/04/2021 14:10:28 [facility] DIASTOLIC BLOOD PRESSURE 84 10/04/2021 14:10:28 [facility] PULSE OXIMETRY 99% 10/04/2021 14:10:28 [facility] WEIGHT 218 10/04/2021 14:10:28 [facility] BMI 33kg/m2 10/04/2021 14:10:28 [facility] PAIN 5 10/04/2021 14:10:28 [facility] HEIGHT 68 10/04/2021 14:10:28 [facility] PULSE 89 10/04/2021 14:10:28 [facility] RESPIRATION 14 10/04/2021 14:10:28 [facility] SYSTOLIC BLOOD PRESSURE 170 08/21/2021 13:06:44 [facility] DIASTOLIC BLOOD PRESSURE 80 08/21/2021 13:06:44 [facility] WEIGHT 224.2 08/21/2021 13:06:44 [facility] BMI 34kg/m2 08/21/2021 13:06:44 [facility] PULSE 74 08/21/2021 13:06:44 [facility] RESPIRATION 14 08/21/2021 13:06:44 [facility] Encounters Combined list of: 1) Encounters from Department of Veterans Affairs facilities going back up to the last 18 months, not all VA inpatient encounters are included; 2) Encounters from the Department of Defense facilities going back up to 280 months. Location Location Encounter Encounter Reason Attending ADM DC Stat us Disposition Source Details Type Number For Provider Date Date Visit Outpatient [id number] 09/21 [place] Encounter [id number] /2020 [place] Outpatient 20973-4.61 / [place] Encounter [id number] /2020 [facility] 32476-8.61 10/13 [place] Encounter [id number] /2020 [facility] 96062-561 10/15 [place] Encounter [id number] /2020 [facility] HC PRO 59890-861 Christos Wise 10/24 [place] [facility] PHONE CALL [id number] is: CEASAR JIM S VA 21-30 MIN ICD-10- HCS CM Z79.01 alf (curren t) use of anticoa gulants
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 gulants Outpatient 23943-761 BROMAGHIM, 11/05 [place] Encounter [id number] [facility] Out[facility] 79876-6.61 11/14 [place] Encounter [id number] /2020 [facility] Outpatient 15837-261 11/15 [place] Encounter [id number] /2020 [facility] [place] [facility] [place] 98937-261 11/22 [place] Encounter [id number] /2020 [place] Outpatient 36042-8.61 Deangelo PRIETO 11/22 [place] Encounter [id number] ERRY /2020 [facility] [place] [facility] [place] 22013-9.61 11/23 [place] Encounter [id number] /2020 [place] Outpatient 82470-8.61 12/02 [place] Encounter [id number] /2020 [facility] [place] [facility] [place] 02076-4.61 12/12 [place] Encounter [id number] /2020 [place] [address]-6.61 Diagnos POEPPING,H 12/12 [place] [facility] EST [id number] is: SHILOH L [facility] 15 MIN ICD-10- HCS CM Z79.01 alf (curren t) use of anticoa gulants
[facility] Provide r Comment s: alf (curren t) use of anticoa gulants Outpatient 60697-1.61 12/23 [place] Encounter [id number] /2020 [facility] 44791-8.61 02/07 [place] En[place] [id number] /2020 [facility] 28532-9.61 04/14 [place] En[place] [id number] /2020 [facility] 54036-0.61 04/19 [place] Encounter [id number] /2020 [facility] 83757-3.61 05/01 [place] En[place] [id number] /2020 [facility] 25186-5.61 10 [place] En[place] [id number] /2020 [facility] 81759-6.61 05/19 [place] En[place] [id number] /2020 [facility] 25675-5.61 07/20 [place] Encounter [id number] /2020 [facility] OFFICE O/P 47576-9.61 Diagnos HERMTRINHEN, 08/21 [place] [id number] is: EMMY A [facility] V A 40-54 MIN ICD-10- HCS CM F39 Unspeci fied mood [affect jennifer] disorde r
w [facility] Provide r Comment s: Mood disorde r ([facility] [id number] 5) Outpatient 60264-4.61 08/25 [place] Encounter [id number] /2021 [facility] 99259-0.61 03/ [place] Encounter [id number] /2021 [facility] OFFICE O/P 55284-8.61 Diagnos JESSICA, 10/04 [place] [id number] is: RAFFI F [facility] V A 60-74 MIN ICD-10- HCS CM I10 Essenti al (primar y) hyperte nsion<b r/>with Provide r Comment s: Clintenti al hyperte nsion ([facility] [id number] 0) Outpatient 20038-7.61 10/11 [place] Encounter [id number] /2021 [facility] [place] [address]-6 Diagnos MARYJO SUE 10/11 [place] DIG [id number] is: IFER KAYLA [facility] A ASSMT&MGMT ICD-10- HCS 21+ CM 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
wi th Provide r Comment s: Long-te rm current use of anticoa gulant ([facility] CT 9803279 03) Outpatient 37452-6.61 10/11 [place] Encounter [id number] /2021 [facility] OFFICE O/P 97647-6 Diagnos Kayla PURI 10/18 [place] [id number] is: AVID /2021 [facility] 40-54 MIN ICD-10- [facility] CM F33.1 Major depress jennifer disorde r, recurre nt, moderat e
w ith Provide r Comment s: Major depress jennifer disorde r ([facility] [id number] 00) Outpatient 73828-2.61 10/20 [place] Encounter [id number] /2021 [place] Outpatient 54878-0.61 05/04 [place] Encounter [id number] /2021 [facility] Outpatient 42269-2.61 05/ [place] Encounter [id number] /2021 [facility] Outpatient 64522-7.61 05/ [place] Encounter [id number] /2021 [facility] Outpatient 78043-5 BLAKE REY 12/04 [place] Encounter [id number] [place] M [facility] Outpatient 23961-2.61 05/12 [place] Encounter [id number] /2021 [facility] Outpatient 94816-8.12/15 [place] Encounter [id number] [facility] Outpatient 98742-1.61 12/15 [place] Encounter [id number] [facility] IMMUNIZATI 57274-8.61 Diagnos LEATHA BROWN 12/21 [place] ADMIN [id number] is: S A [facility] A ICD-10- HCS CM Z23 Encount er for immuniz ation<b r/>with Provide r Comment s: Encount er for any immuniz ation Outpatient 03755-7.61 12/22 [place] Encounter [id number] [facility] Outpatient 74747-1.61 01/03 [place] Encounter [id number] [facility] OFFICE O/P 53014-6.61 Diagnos VAN 01/17 [place] MOD [id number] is: ALLY,BE [facility] VA 30-39 MIN ICD-10- [place] HCS CM 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
with Provide r Comment s: Bilater al Primary Osteoar thritis of Knee Outpatient 02857-6.61 OTF, 02/02 [place] Encounter [id number] RA R /2021 [facility] OFFICE 05791-0.61 HELEN Camara 02/09 [place] CONSULTATI [id number] is: N H /2021 [facility] VA ON ICD-10- HCS CM 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
with Provide r Comment s: 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 Outpatient 20504-5.61 02/09 [place] Encounter [id number] [facility] Social History Combined list of available smoking, tobacco, and other social history from Department of Defense andVeterans Affairs facilities. Social History Type Response Date Comment Source Tobacco smoking status VA-TOBACCO QUIT 15 YRS 08/21/2021 [facility] NHIS OR MORE History of tobacco use VA-TOBACCO FORMER USER 08/21/2021 [facility] History of tobacco use VA-TOBACCO QUIT 15 YRS 07/09/2018 [facility] OR MORE History of tobacco use FORMER TOBACCO USER 7Y 07/18/2017 [facility] OR GREATER History of tobacco use FORMER TOBACCO USER 7Y 08/14/2016 [facility] HCS OR GREATER History of tobacco use FORMER TOBACCO USER 7Y 06/29/2015 [facility] OR GREATER History of tobacco use FORMER TOBACCO USER 7Y 01/06/2014 [facility] OR GREATER History of tobacco use FORMER TOBACCO USER 7Y 01/04/2012 [facility] OR GREATER Plan of Care List of future care activities from Department of Veterans Affairs facilities. Additional future care activities may be listed in the Assessment and Plan section. Date/Time Care Activity Care Activity Detail Facility 04/11/2022 AMBULATORY - MEDICINE AMBULATORY - MEDICINE [facility]
--- OUTSIDE RECORDS SUMMARY | 2022-03-13 16:15 | XMS_ITS | Encounter Summary ---
:1945 Author Organization Department of [facility] rs Address [address] [place] [address] Support Name Relationship Address Phone SIRIA THOMPSON Unavailable [address] [place] [address] JANEY LOPEZ Unavailable [address] [place] [address] [facility], Unavailable [address] [facility] [address] Insurance Providers: All historical and current Section [...] MEDICARE MEDICARE PART Sep 26, PART A [id number] DONNA ALMANZAR (WNR) (M) A 2012 [id number] [phone] JUAN LANDAVERDE MEDICARE MEDICARE PART Sep 26, PART B [id number] DONNA ALMANZAR (WNR) (M) B 2012 [id number] [phone] JUAN Selected Encounter This section includes the information on record at [place] for the Encounter. Date/Time Encounter Type Encounter Reason Provider Source Description Feb 02, 2022 11:16 Outpatient ADMIN PAT ACTIVTIES DUONG VANESSA AM Encounter (MASNONCT) IHE Encounter Template Text not used by [place] Plan of Treatment: Future Appointments (+ 6 months) and Future Tests (+/- 45 days) The Plan of Treatment section includes future care activities for the patient from all VA treatmentfacilities. This section includes future appointments and future orders which are active, pending orscheduled.Future Appointments This section includes appointments that were scheduled to occur 6 months from the date of the Encounter, up to a maximum of 20 appointments. The data comes from all [facility] Appointment Date/Time Appointment Type Appointment Facili ty Name Feb 09, 2022 01:00 PM AMBULATORY - SURGERY [facility] Apr 11, 2022 11:00 AM AMBULATORY - MEDICINE [facility] Apr 30, 2022 10:30 AM AMBULATORY - PSYCHIATRY [facility] Social History: Smoking Status (Most current) and Tobacco Use (All prior to encounter date) This section includes the most current, and the historical, smoking and tobacco-related health factors from the [place] facility where the Encounter took place.Current Smoking Status This section includes the most current smoking, or tobacco-related health factor, from the [place] facility where the Encounter took place. Date/Time Current Smoking Status Comment Facility Aug 21, 2021 01:00 PM AR-TOBACCO FORMER USER [facility] Tobacco Use History This section includes a history of the smoking, or tobacco- related health factors, that were collected on or before the date of the Encounter. The data comes from the [facility] where the Encounter took place. Date/Time Smoking Status/Tobacco Use Comment Facil ity Aug 21, 2021 01:00 PM VA-TOBACCO QUIT 15 YRS OR MORE [facility] Jul 09, 2018 08:58 AM VA-TOBACCO FORMER USER [facility] Jul 09, 2018 08:58 AM AR-TOBACCO QUIT 15 YRS OR MORE [facility] Jul 18, 2017 09:58 AM FORMER TOBACCO USER 7Y OR GREATER [facility] Aug 14, 2016 10:59 AM FORMER TOBACCO USER 7Y OR GREATER [facility] Jun 29, 2015 02:03 PM FORMER TOBACCO USER 7Y OR GREATER [facility] Jan 06, 2014 03:04 PM FORMER TOBACCO USER 7Y OR GREATER [facility] Jan 04, 2012 08:36 AM FORMER TOBACCO USER 7Y OR GREATER [facility] Radiology Reports: +/- 30 days of [...] the Encounter. The data comes from all VA treatment facilities. Date/Time Radiology Report Provider Source Jan 17, 2022 12:17 PM KNEE LEFT 4 VIEWS: LYNNE MARTÍNEZ [facility] JUAN THOMPSON [id number] -1945 M Exm Date: JAN 17, 2022@12:17 Req Phys: KIRT,MAI F Pat Loc: MSP APACT L RES 0 2 WH 4F (Req' Img Loc: MAIN X-RAY Service: Unknown (Case [id number] COMPLETE) KNEE LEFT 4 VIEWS (RAD Detai led) CPT:67979 Reason for Study: knee pain Clinical History: IS NOT under investigation for COVID-19 or is COVID-19 negative knee pain Report Status: Verified Date Reported: JAN 17, 2022 Date Verified: JAN 17, 2022 Test Preparation Tutor E-Sig:/ES/LYNNE MARTÍNEZ DO Report: EXAMINATION: KNEE LEFT [...] Primary Interpreting Staff: LYNNE MARTÍNEZ DO, RADIOLOGIST (Test Preparation Tutor) /DDS Jan 17, 2022 12:17 PM KNEE RIGHT 4 VIEWS: LYNNE MARTÍNEZ [facility] JUAN THOMPSON [id number] -1945 M Exm Date: JAN 17, 2022@12:17 Req Phys: MAI MORALEZ Pat Loc: [facility] APACT L RES 0 2 WH 4F (Req' Img Loc: MAIN X-RAY Service: Unknown (Case [id number] COMPLETE) KNEE RIGHT 4 VIEWS (HETAL guerra) CPT:23055 Reason for Study: knee pain Clinical History: [place] IS NOT under investigation for COVID-19 or is COVID-19 negative knee pain Report Status: Verified Date Reported: JAN 17, 2022 Date Verified: JAN 17, 2022 Test Preparation Tutor E-Sig:/ES/LYNNE MARTÍNEZ DO Report: EXAMINATION: KNEE LEFT [...] Primary Interpreting Staff: LYNNE MARTÍNEZ DO, RADIOLOGIST (Test Preparation Tutor) /DDS Encounter Notes: All associated encounter notes This section contains the clinical notes associated to the Encounter. Date/Time Encounter Note(s) Provider Source Jan 31, 2022 02:15 PM NONVA NOTE: ELISE ADAMS IS [facility] LOCAL TITLE: [facility] SELF PRESENTIN G CARE COORD PLAN STANDARD TITLE: NONVA NOTE DATE OF NOTE: JAN 31, 2022@14:15 ENTRY DATE: FEB 02, 2022@11:17:45 AUTHOR: ELISE ADAMS EXP COSIGNER: URGENCY: STATUS: COMPLETED [facility] SELF PRESENTING CARE CO ORD PLAN NOTE Has ADDENDA Emergency Notification Intake Date Presenting to the Facility: Jan Method of Contact: Notified from [employer] worklist Notification ID: [id number] HSRM Referral [facility] Name[facility] Hospital: [facility] Address: City: [place] State: [place] Zip Code: Phone : Community Facility Point of Contact: Name: Yoon Payne F: [phone] Chief complaint: HEADACHE/STIFF NECK Primary Diagnosis: Disposition Discharged Date of discharge: Jan Discharge to home POM Review /pablo/ ELISE ADAMS [employer]OD) Signed: 02/02/2022 11:21 Receipt Acknowledged By: 02/05/2022 10:31 /pablo/ DUONG VANESSA RN REGISTERED NURSE 02/05/2022 ADDENDUM STATUS: COMPLETED Records will be requested fo r this episode of care and will be uploaded to [employer] when received. /pablo/ DUONG VANESSA RN REGISTERED NURSE Signed: 02/05/2022 10:32 02/27/2022 ADDENDUM STATUS: COMPLETED Records requested for this episode of care x3, b ut not received. This [facility] RN will step out at this time, as I am unable to pr ocess further. /pablo/ DUONG VANESSA RN REGISTERED NURSE Signed: 02/27/2022 17:53
--- OUTSIDE RECORDS SUMMARY | 2022-03-13 16:16 | XMS_ITS | Encounter Summary ---
:1945 Author Organization Department of [facility] rs Address [address] [place] [address] Support Name Relationship Address Phone SIRIA THOMPSON Unavailable [address], [place] [phone] [place] [address] JANEY LOPEZ Unavailable [address] [place] [address] [facility], Unavailable [address] [facility] [place] [place] [address] Insurance Providers: All historical and current Section [...] MEDICARE MEDICARE PART Sep 26, PART A [id number] 800 DONNA HUANG YOHAN (WNR) (M) A 2012 [id number] [phone] JUAN MEDICARE MEDICARE PART Sep 26, PART B [id number] DONNAAMARILIS ALMANZAR (WNR) (M) B 2012 [id number] [phone] JUAN Selected Encounter This section includes the information on record at [place] for the Encounter. Date/Time Encounter Type Encounter Description Reason Provider Source December 15, 2021 02:19 Outpatient Encounter TELEPHONE TRIAGE PM IHE Encounter Template Text not used by [place] Plan of Treatment: Future Appointments (+ 6 [...] 20 appointments. The data comes from all [place] treatment facilities. Appointment Date/Time Appointment Type Appointment Facili ty Name December 21, 2021 09:45 AM AMBULATORY - NONE [facility] December 21, 2021 11:15 AM AMBULATORY - MEDICINE [facility] Jan 17, 2022 11:00 AM AMBULATORY - MEDICINE [facility] Jan 17, 2022 12:30 PM AMBULATORY - NONE [facility] Feb 02, 2022 11:16 AM AMBULATORY - NONE [facility] Feb 09, 2022 01:00 PM AMBULATORY - SURGERY [facility] Apr 11, 2022 11:00 AM AMBULATORY - MEDICINE [facility] Apr 30, 2022 10:30 AM AMBULATORY - PSYCHIATRY [facility] Lab Results: +/- 30 days of the encounter This section includes the Chemistry and Hematology Lab Results on record with [place] for the patient. Radiology Reports and Pathology Reports are provided separately, in subsequent sections.Lab Results This section contains the Chemistry/Hematology Results that were resulted 30 days before or 30 daysafter the date of the Encounter. Date/Time Source Result Type Result - Unit Interpretation Reference Range Comment December 21, 2021 10:34 AM [facility] HEMOGLOBIN A1C Specim en Type: BLOOD No comment enter ed. Ordering Provid er: VIPUL CRANE Report Released Date/Time: Oct 11, 2021 08:32 AM Reporting Lab: [facility] [address] [facility] [id number] Performing Lab: [facility] [address] [facility] [id number] HEMOGLOBIN A1C 8.0 H 4.0-6.0 Social History: Smoking Status (Most current) and Tobacco Use (All prior to encounter date) This section includes the most current, and the historical, smoking and tobacco-related health factors from the [place] facility where the Encounter took place.Current Smoking Status This section includes the most current smoking, or tobacco-related health factor, from the [place] facility where the Encounter took place. Date/Time Current Smoking Status Comment Facility Aug 21, 2021 01:00 PM VA-TOBACCO FORMER USER [facility] Tobacco Use History This section includes a history of the smoking, or tobacco- related health factors, that were collected on or before the date of the Encounter. The data comes from the [place] facility where the Encounter took place. Date/Time Smoking Status/Tobacco Use Comment [facility] Aug 21, 2021 01:00 PM VA-TOBACCO QUIT 15 YRS OR MORE [facility] Jul 09, 2018 08:58 AM VA-TOBACCO FORMER USER [facility] Jul 09, 2018 08:58 AM VA-TOBACCO QUIT 15 YRS OR MORE [facility] Jul 18, 2017 09:58 AM FORMER TOBACCO USER 7Y OR GREATER [facility] Aug 14, 2016 10:59 AM FORMER TOBACCO USER 7Y OR GREATER [facility] Jun 29, 2015 02:03 PM FORMER TOBACCO USER 7Y OR GREATER [facility] Jan 06, 2014 03:04 PM FORMER TOBACCO USER 7Y OR GREATER [facility] Jan 04, 2012 08:36 AM FORMER TOBACCO USER 7Y OR GREATER [facility] Encounter Notes: All associated encounter notes This section contains the clinical notes associated to the Encounter. Date/Time Encounter Note(s) Provider Source December 15, 2021 02:19 PM [facility] TITLE: PATIENT CONTACT NOTE STANDARD TITLE: REPORT OF CONTACT DATE OF NOTE: DECEMBER 15, 2021@14:19 ENTRY DATE: DECEMBER 15, 2021@14:20:02 AUTHOR: JOEL FARRIS EXP COSIGNER: URGENCY: STATUS: COMPLETED PATIENT CONTACT NOTE Has ADDENDA Patient contact Name of : JUAN THOMPSON JR Name/Relationship of Contact if other than Veter an: Date & Time of Contact: November@14:20 Type of Contact: Reason for Contact: called requesting for an increase on his OMEPRAZOLE CAP,EC 20MG medication. Please contact the olayinka g this matter. /pablo/ JOEL WYLIE 23 [facility] Call Center MSA Signed: 12/15/2021 14:22 Receipt Acknowledged By: 12/15/2021 20:49 /es/ VIPUL CRANE MD RESIDENT 12/15/2021 14:49 /es/ STACEY SAHNI RN RN PACT Pediatric Neurologist for SAM GONZALESKARLOS 12/15/2021 ADDENDUM STATUS: COMPLETED Attempted to reach t o assess any new abdominal symptoms. No answer. LEft message for pt to call the call center to speak to a nurse re: abdominal symptoms, why he needs to increase his omeprazol e. *Reviewed outpatient medications. Pt had previously been taking 2 x 20mg q day in the past. /pablo/ STACEY SAHNI RN RN PACT Pediatric Neurologist Signed: 12/15/2021 14:48 12/15/2021 ADDENDUM STATUS: COMPLETED Carlton phones back saying h is reflux symptoms have become way worse and he has heartburn all the time and w akes up choking from bile. He also states he used to take Omeprazole 40MG twice a day and wants to go back to this dose because it worked well for him. /es/ JODEE SAENZ, RN VISN 23 Daytime data examination clerk Signed: 12/15/2021 15:01 Receipt Acknowledged By: 12/15/2021 16:16 /pablo/ ANTOINETTE VERNON MA, RN, [facility] REGISTERED NURSE for STACEY SAHNI 12/15/2021 ADDENDUM STATUS: COMPLETED Will alert PCP for review of above message from PCP requesting increase in omeprazole due to increased reflux symptoms and reports these were better managed when on the 40mg twice daily dosing. /pablo/ ANTOINETTE VERNON MA, RN, [facility] REGISTERED NURSE Signed: 12/15/2021 16:15 Receipt Acknowledged By: 12/15/2021 20:43 /pablo/ VIPUL CRANE MD RESIDENT * AWAITING SIGNATURE * MARIUSZ PHILLIPS 12/15/2021 ADDENDUM STATUS: COMPLETED If Mr. Thompson is still experiencing reflux at 40mg a day then he showed be evaluate and possibly have a GI consult placed. I wont be in for awhile so he should follow up with any of the available resid ents in clinic this week if possible. /pablo/ VIPUL CRANE MD RESIDENT Signed: 12/15/2021 20:47 Receipt Acknowledged By: 12/18/2021 09:43 /pablo/ SAM OBREGON RN [facility] [employer] SEWER * AWAITING SIGNATURE * ANTOINETTE VERNON 12/18/2021 ADDENDUM STATUS: COMPLETED The patient was called at his number on file. No answer. Left detailed message on identified VM asking him to call this technical document writer back at directed contact number. /pablo/ SAM OBREGON RN AP[facility] LINING SEWER Signed: 12/18/2021 09:47
--- OUTSIDE RECORDS SUMMARY | 2022-03-13 16:16 | XMS_ITS | Encounter Summary ---
:1945 Author Organization Department of [facility] rs Address [address] [place] [address] Support Name Relationship Address Phone SIRIA THOMPSON Unavailable [address], [place] [address] JANEY LOPEZ Unavailable [address] [place] [address] [facility], Unavailable [address] [facility] [place] [place] [address] Insurance Providers: All historical and current Section [...] Maldonado MEDICARE MEDICARE PART Sep 26, PART B [id number] DONNA ALMANZAR (WNR) (M) B 2012 [id number] [phone] JUAN LANDAVERDE MEDICARE MEDICARE PART Sep 26, PART A [id number] 800 DONNA ALMANZAR (WNR) (M) A 2012 [id number] [phone] JUAN LANDAVERDE Selected Encounter This section includes the information on record at [place] for the Encounter. Date/Time Encounter Type Encounter Description Reason Provider Source December 15, 2021 02:00 Outpatient PSYCHOGERIATRIC - PM Encounter INDIVIDUAL IHE Encounter Template Text not used by [place] Plan of Treatment: Future Appointments (+ 6 [...] 21, 2021 09:45 AM AMBULATORY - NONE [facility] December 21, 2021 11:15 AM AMBULATORY - MEDICINE [facility] Jan 17, 2022 11:00 AM AMBULATORY - MEDICINE [facility] Jan 17, 2022 12:30 PM AMBULATORY - NONE [facility] Feb 02, 2022 11:16 AM AMBULATORY - NONE [facility] Feb 09, 2022 01:00 PM AMBULATORY - SURGERY [facility] Apr 11, 2022 11:00 AM AMBULATORY - MEDICINE [facility] Apr 30, 2022 10:30 AM AMBULATORY - PSYCHIATRY [facility] Lab Results: +/- 30 days of [...] Range Comment December 21, 2021 10:34 AM [facility] HEMOGLOBIN A1C Specim en Type: BLOOD No comment enter ed. Ordering Provid er: VIPUL CRANE Report Released Date/Time: Oct 11, 2021 08:32 AM Reporting Lab: [facility] [address] [facility] [id number] Performing Lab: [facility] [address] [facility] [id number] HEMOGLOBIN A1C 8.0 H 4.0-6.0 Social History: Smoking Status (Most current) and Tobacco Use (All prior to encounter date) This section includes the most current, and the historical, smoking and tobacco-related health factors from the [place] facility where the Encounter took place.Current Smoking Status This section includes the most current smoking, or tobacco-related health factor, from the [place] facility where the Encounter took place. Date/Time Current Smoking Status Comment Facility Aug 21, 2021 01:00 PM VA-TOBACCO FORMER USER MIN [facility] Tobacco Use History This section includes a history of the smoking, or tobacco- related health factors, that were collected on or before the date of the Encounter. The data comes from the [place] facility where the Encounter took place. Date/Time Smoking Status/Tobacco Use Comment [facility] Aug 21, 2021 01:00 PM VA-TOBACCO QUIT 15 YRS OR MORE [facility] Jul 09, 2018 08:58 AM VA-TOBACCO FORMER USER [facility] Jul 09, 2018 08:58 AM VA-TOBACCO QUIT 15 YRS OR MORE [facility] Jul 18, 2017 09:58 AM FORMER TOBACCO USER 7Y OR GREATER [facility] Aug 14, 2016 10:59 AM FORMER TOBACCO USER 7Y OR GREATER [facility] Jun 29, 2015 02:03 PM FORMER TOBACCO USER 7Y OR GREATER [facility] Jan 06, 2014 03:04 PM FORMER TOBACCO USER 7Y OR GREATER [facility] Jan 04, 2012 08:36 AM FORMER TOBACCO USER 7Y OR GREATER [facility] Encounter Notes: All associated encounter notes This section contains the clinical notes associated to the Encounter. Date/Time Encounter Note(s) Provider Source December 26, 2021 10:20 AM REPORT OF CONTACT: HARRISON DALLAS [facility] LOCAL TITLE: APPOINTMENT SCHEDULING NOTE STANDARD TITLE: REPORT OF CONTACT DATE OF NOTE: DECEMBER 26, 2021@10:20 ENTRY DATE: DECEMBER 26, 2021@10:20:13 AUTHOR: HARRISON DALLAS EXP COSIGNER: URGENCY: STATUS: COMPLETED APPOINTMENT SCHEDULING NOTE Has ADDENDA Attempt to schedule return to clinic 1st Contact: Called at: [phone] Left message Phone number left for to call back: [phone] 2nd Contact: Sent letter by regular [place] mail to address on jennyfer neilWillis JUAN THOMPSON [address] [address] /aneesh DALLAS SEQUENCING MACHINE OPERATOR Signed: 12/26/2021 10:20 12/27/2021 ADDENDUM STATUS: COMPLETED 2nd Attempt- Called [place] to (re)schedule appo intment with provider. No answer, LVM to call [phone]. /aneesh DALLAS SEQUENCING MACHINE OPERATOR Signed: 12/27/2021 08:53 12/28/2021 ADDENDUM STATUS: COMPLETED 3rd Attempt- Called [place] to (re)schedule appo intment with provider. No answer. Not in service. /aneesh DALLAS SEQUENCING MACHINE OPERATOR Signed: 12/28/2021 10:50 12/29/2021 ADDENDUM STATUS: COMPLETED 4th Attempt- Called to (re)schedule appo intment with provider. No answer, LVM to call [phone]. No further att empts will be made to contact . /aneesh DALLAS SEQUENCING MACHINE OPERATOR Signed: 12/29/2021 11:21 December 18, 2021 10:56 AM REPORT OF CONTACT: HARRISON DALLAS [facility] LOCAL TITLE: APPOINTMENT SCHEDULING NOTE STANDARD TITLE: REPORT OF CONTACT DATE OF NOTE: DECEMBER 18, 2021@10:56 ENTRY DATE: DECEMBER 18, 2021@10:56:31 AUTHOR: HARRISON DALLAS EXP COSIGNER: URGENCY: STATUS: COMPLETED APPOINTMENT SCHEDULING NOTE Has ADDENDA Attempt to schedule return to clinic 1st Contact: Called at: [phone] Left message Phone number left for to call back: [phone] 2nd Contact: Sent letter by regular [place] mail to address on jennyfer JUAN Mulligan [address] [address] {12/15/21} 2nd Attempt- Called [place] to (re)schedule appo intment with provider. No answer, LVM to call [phone]. /aneesh DALLAS SEQUENCING MACHINE OPERATOR Signed: 12/18/2021 10:57 12/19/2021 ADDENDUM STATUS: COMPLETED 3rd Attempt- Called [place] to (re)schedule appo intment with provider. No answer, LVM to call [phone]. /aneesh DALLAS SEQUENCING MACHINE OPERATOR Signed: 12/19/2021 12:09 12/20/2021 ADDENDUM STATUS: COMPLETED 4th Attempt- Called [place] to (re)schedule appo intment with provider. No answer, LVM to call [phone]. No further att empts will be made to contact [place]. /aneesh DALLAS SEQUENCING MACHINE OPERATOR Signed: 12/20/2021 09:39
--- OUTSIDE RECORDS SUMMARY | 2022-03-13 16:16 | XMS_ITS | Encounter Summary ---
:1945 Author Organization Department of [facility] rs Address [address] [place] [address] Support Name Relationship Address Phone SIRIA THOMPSON Unavailable [address], [address] [phone] [place] [address] JANEY LOPEZ Unavailable [address] [place] [address] [facility], Unavailable [address] [facility] [place] [address] Insurance Providers: All historical and current Section [...] MEDICARE MEDICARE PART Sep 26, PART A [id number] 800 DONNA ALMANZAR (WNR) (M) A 2012 [id number] JUAN LANDAVERDE MEDICARE MEDICARE PART Sep 26, PART B [id number] 800 DONNA ALMANZAR (WNR) (M) B 2012 [id number] [phone] JUAN LANDAVERDE Selected Encounter This section includes the information on record at [place] for the Encounter. Date/Time Encounter Type Encounter Reason Provider Source Description December 21, 2021 IMMUNIZATION PRIMARY ICD-10-CM Z23 CAMILLA BROWN 11:15 AM ADMIN CARE/MEDICINE Encounter for immunization with Provider Comments: Encounter for any immunization IHE Encounter Template Text not used by [place] Assessments - Encounter Diagnoses This section includes the primary and secondary diagnoses documented for the Encounter. Date/Time Primary/Secondary Diagnosis Name Provider Source Diagnosis December 21, 2021 PRIMARY Encounter for CAMILLA BROWN A 11:25 AM immunization [facility] Plan of Treatment: Future Appointments (+ 6 months) and Future Tests (+/- 45 days) The Plan of Treatment section includes future care activities for the patient from all [place] treatmentfacilities. This section includes future appointments and future orders which are active, pending orscheduled.Future Appointments This section includes appointments that were scheduled to occur 6 months from the date of the Encounter, up to a maximum of 20 appointments. The data comes from all [place] treatment facilities. Appointment Date/Time Appointment Type Appointment Facili ty Name Jan 17, 2022 11:00 AM AMBULATORY - MEDICINE [facility] Jan 17, 2022 12:30 PM AMBULATORY - NONE [facility] Feb 02, 2022 11:16 AM AMBULATORY - NONE [facility] Feb 09, 2022 01:00 PM AMBULATORY - SURGERY [facility] Apr 11, 2022 11:00 AM AMBULATORY - MEDICINE [facility] Apr 30, 2022 10:30 AM AMBULATORY - PSYCHIATRY [facility] Lab Results: +/- 30 days of the encounter This section includes the Chemistry and Hematology Lab Results on record with [place] for the patient. Radiology Reports and Pathology Reports are provided separately, in subsequent sections.Lab Results This section contains the Chemistry/Hematology Results that were resulted 30 days before or 30 daysafter the date of the Encounter. Date/Time Source Result Type Result - Unit Interpretation Reference Range Comment December 21, 2021 10:34 AM [facility] HEMOGLOBIN A1C Specim en Type: BLOOD No comment enter ed. Ordering Provid er: VIPUL CRANE Report Released Date/Time: Oct 11, 2021 08:32 AM Reporting Lab: [facility] [address] [facility] [id number] Performing Lab: [facility] [address] [facility] [facility] [address] [facility] [address] HEMOGLOBIN A1C 8.0 H 4.0-6.0 Immunizations: All administered on the encounter date This section contains immunizations associated to the Encounter. Immunization Series Date Issued Reaction Comments ZOSTER RECOMBINANT 2 December 21, 2021 Social History: Smoking Status (Most current) and Tobacco Use (All prior to encounter date) This section includes the most current, and the historical, smoking and tobacco-related health factors from the [place] facility where the Encounter took place.Current Smoking Status This section includes the most current smoking, or tobacco-related health factor, from the [place] facility where the Encounter took place. Date/Time Current Smoking Status Comment Facility Aug 21, 2021 01:00 PM VA-TOBACCO QUIT 15 YRS OR MORE [facility] Tobacco Use History This section includes a history of the smoking, or tobacco- related health factors, that were collected on or before the date of the Encounter. The data comes from the [place] facility where the Encounter took place. Date/Time Smoking Status/Tobacco Use Comment [facility] Aug 21, 2021 01:00 PM VA-TOBACCO QUIT 15 YRS OR MORE [facility] Jul 09, 2018 08:58 AM VA-TOBACCO FORMER USER [facility] Jul 09, 2018 08:58 AM VA-TOBACCO QUIT 15 YRS OR MORE [facility] Jul 18, 2017 09:58 AM FORMER TOBACCO USER 7Y OR GREATER [facility] Aug 14, 2016 10:59 AM FORMER TOBACCO USER 7Y OR GREATER [facility] Jun 29, 2015 02:03 PM FORMER TOBACCO USER 7Y OR GREATER [facility] Jan 06, 2014 03:04 PM FORMER TOBACCO USER 7Y OR GREATER [facility] Jan 04, 2012 08:36 AM FORMER TOBACCO USER 7Y OR GREATER [facility] Radiology Reports: +/- 30 days of the [...] the Encounter. The data comes from all [facility] facilities. Date/Time Radiology Report Provider Source Jan 17, 2022 12:17 PM KNEE LEFT 4 VIEWS: LYNNE MARTÍNEZ [facility] JUAN THOMPSON [id number] 1945 M Exm Date: JAN 17, 2022@12:17 Req Phys: MAI MORALEZ Pat Loc: [facility]ACT L RES 0 2 WH 4F (Req' Img Loc: MAIN X-RAY Service: Unknown (Case [id number] COMPLETE) KNEE LEFT 4 VIEWS (HETAL Angulo led) CPT:88092 Reason for Study: knee pain Clinical History: [place] IS NOT under investigation for COVID-19 or is COVID-19 negative knee pain Report Status: Verified Date Reported: JAN 17, 2022 Date Verified: JAN 17, 2022 Foundation Drill Operator Helper E-Sig:/ES/LYNNE MARTÍNEZ DO Report: EXAMINATION: KNEE LEFT [...] Primary Interpreting Staff: LYNNE MARTÍNEZ DO, RADIOLOGIST (Foundation Drill Operator Helper) /DDS Jan 17, 2022 12:17 PM KNEE RIGHT 4 VIEWS: LYNNE MARTÍNEZ [facility] JUAN THOMPSON [id number] 1945 M Exm Date: JAN 17, 2022@12:17 Req Phys: MAI MORALEZ Pat Loc: [facility] APACT L RES 0 2 WH 4F (Req' Img Loc: MAIN X-RAY Service: Unknown (Case [id number] COMPLETE) KNEE RIGHT 4 VIEWS (RAD Deta iled) CPT:61263 Reason for Study: knee pain Clinical History: [place] IS NOT under investigation for COVID-19 or is COVID-19 negative knee pain Report Status: Verified Date Reported: JAN 17, 2022 Date Verified: JAN 17, 2022 Foundation Drill Operator Helper E-Sig:/ES/LYNNE MARTÍNEZ DO Report: EXAMINATION: KNEE LEFT [...] Primary Interpreting Staff: LYNNE MARTÍNEZ DO, RADIOLOGIST (Foundation Drill Operator Helper) /DDS Encounter Notes: All associated encounter notes This section contains the clinical notes associated to the Encounter. Date/Time Encounter Note(s) Provider Source Jan 10, 2022 03:21 PM REPORT OF CONTACT: MARIBETH LOPEZ [facility] LOCAL TITLE: PATIENT CONTACT NOTE STANDARD TITLE: REPORT OF CONTACT DATE OF NOTE: JAN 10, 2022@15:21 ENTRY DATE: JAN 10, 2022@15:21:52 AUTHOR: MARIBETH LOPEZ EXP COSIGNER: URGENCY: STATUS: COMPLETED PATIENT CONTACT NOTE Has ADDENDA Patient contact Public health nurse called typewriter assembler stating Tiff pelaez is currently taking 40mg of Omperazole per day. He said he was told to doubl e his dose by his provider. Records do not indicate this . Can you please confirm amount dosage of Omperazole and change current prescription if appropriate. Vet is almost out per PHN /pablo/ MARIBETH LOPEZ REGISTERED NURSE Signed: 01/10/2022 15:24 Receipt Acknowledged By: 01/10/2022 15:52 /pablo/ MARIUSZ PHILLIPS MD PHYSICIAN for VIPUL CRANE 01/10/2022 ADDENDUM STATUS: COMPLETED Ok to cont 40 mg qd for now, can address further at upcoming visit. /pablo/ MARIUSZ PHILLIPS MD PHYSICIAN Signed: 01/10/2022 15:54 December 21, 2021 11:23 AM INTERNAL MEDICINE OUTPATIENT NOTE: CAMILLA BROWN [facility] LOCAL TITLE: MEDICINE CLINIC NURSING NOTE STANDARD TITLE: INTERNAL MEDICINE OUTPATIENT NOT E DATE OF NOTE: DECEMBER 21, 2021@11:23 ENTRY DATE: DECEMBER 21, 2021@11:23:52 AUTHOR: CAMILLA BROWN EXP COSIGNER: URGENCY: STATUS: COMPLETED TYPE OF VISIT: Nurse Clinic REASON FOR VISIT: 2nd shingrix inj ALLERGIES: FACILITY ALLERGY/ADR -------- No Remote Allergy/ADR Data available for this pa marcus [facility] No Known Allergies HERPES ZOSTER (SHINGLES) The patient received recombinant zoster vaccine (RZV) 0.5 ml IM in Left deltoid. Log Operations Coordinator: [employer]#s and Expiration Date: DN74H Exp. 02/04/23 Y 44ZT Exp. 02/04/23 /pablo/ CAMILLA BROWN LPN Signed: 12/21/2021 11:25
--- OUTSIDE RECORDS SUMMARY | 2022-03-13 16:16 | XMS_ITS | Encounter Summary ---
:1945 Author Organization Department of [facility] rs Address [address] [place] [address] Support Name Relationship Address Phone SIRIA THOMPSON Unavailable [address], [place] [address] JANEY LOPEZ Unavailable [address] [place] [address] [facility], Unavailable [address] [facility] [place] [address] Insurance Providers: All historical and current Section [...] MEDICARE MEDICARE PART Sep 26, PART A [id number] 800 DONNA ALMANZAR (WNR) (M) A 2012 [id number] [phone] JUAN LANDAVERDE MEDICARE MEDICARE PART Sep 26, PART B [id number] 800 DONNA ALMANZAR (WNR) (M) B 2012 [id number] [phone] JUAN LANDAVERDE Selected Encounter This section includes the information on record at [place] for the Encounter. Date/Time Encounter Type Encounter Description Reason Provider Source December 07, 2021 10:13 Outpatient Encounter TELEPHONE PRIMARY CARE IHE Encounter Template Text not used by [place] Plan of Treatment: Future Appointments (+ 6 [...] 20 appointments. The data comes from all [place] treatment facilities. Appointment Date/Time Appointment Type Appointment Facili ty Name December 21, 2021 09:45 AM AMBULATORY - NONE [facility] December 21, 2021 11:15 AM AMBULATORY - MEDICINE [facility] Jan 17, 2022 11:00 AM AMBULATORY - MEDICINE [facility] Jan 17, 2022 12:30 PM AMBULATORY - NONE [facility] Feb 02, 2022 11:16 AM AMBULATORY - NONE [facility] Feb 09, 2022 01:00 PM AMBULATORY - SURGERY [facility] Apr 11, 2022 11:00 AM AMBULATORY - MEDICINE [facility] Apr 30, 2022 10:30 AM AMBULATORY - PSYCHIATRY [facility] Lab Results: +/- 30 days of the encounter This section includes the Chemistry and Hematology Lab Results on record with [place] for the patient. Radiology Reports and Pathology Reports are provided separately, in subsequent sections.Lab Results This section contains the Chemistry/Hematology Results that were resulted 30 days before or 30 daysafter the date of the Encounter. Date/Time Source Result Type Result - Unit Interpretation Reference Range Comment December 21, 2021 10:34 AM [facility] HEMOGLOBIN A1C Specim en Type: BLOOD No comment enter ed. Ordering Provid er: VIPUL CRANE Report Released Date/Time: Oct 11, 2021 08:32 AM Reporting Lab: [facility] [address] [facility] [id number] Performing Lab: [facility] [address] [facility] [id number] HEMOGLOBIN A1C 8.0 H 4.0-6.0 Social History: Smoking Status (Most current) and Tobacco Use (All prior to encounter date) This section includes the most current, and the historical, smoking and tobacco-related health factors from the [place] facility where the Encounter took place.Current Smoking Status This section includes the most current smoking, or tobacco-related health factor, from the [place] facility where the Encounter took place. Date/Time Current Smoking Status Comment Facility Aug 21, 2021 01:00 PM VA-TOBACCO FORMER USER [facility] Tobacco Use History This section includes a history of the smoking, or tobacco- related health factors, that were collected on or before the date of the Encounter. The data comes from the [place] facility where the Encounter took place. Date/Time Smoking Status/Tobacco Use Comment Facil ity Aug 21, 2021 01:00 PM VA-TOBACCO QUIT 15 YRS OR MORE [facility] Jul 09, 2018 08:58 AM [facility] Jul 09, 2018 08:58 AM VA-TOBACCO QUIT 15 YRS OR MORE [facility] Jul 18, 2017 09:58 AM FORMER TOBACCO USER 7Y OR GREATER [facility] Aug 14, 2016 10:59 AM FORMER TOBACCO USER 7Y OR GREATER [facility] Jun 29, 2015 02:03 PM FORMER TOBACCO USER 7Y OR GREATER [facility] Jan 06, 2014 03:04 PM FORMER TOBACCO USER 7Y OR GREATER [facility] Jan 04, 2012 08:36 AM FORMER TOBACCO USER 7Y OR GREATER [facility] Encounter Notes: All associated encounter notes This section contains the clinical notes associated to the Encounter. Date/Time Encounter Note(s) Provider Source December 07, 2021 10:13 AM REPORT OF CONTACT: SAM OBREGON [facility] LOCAL TITLE: PATIENT CONTACT NOTE STANDARD TITLE: REPORT OF CONTACT DATE OF NOTE: DECEMBER 07, 2021@10:13 ENTRY DATE: DECEMBER 07, 2021@10:13:57 AUTHOR: SAM OBREGON EXP COSIGNER: URGENCY: STATUS: COMPLETED Name of (Contact): JUAN THOMPSON Name/Relationship of Contact if other than Veter an: Date of Contact: DECEMBER 07, 2021 Time of Contact: Type of Contact: [ ] Telephone [ ] Personal Reason for Contact: Plan/Disposition: Patient contact Name of : JUAN THOMPSON JR Name/Relationship of Contact if other than Veter an: Date & Time of Contact: November@10:14 Type of Contact: Telephone Reason for Contact: patient's [facility] nurse called this global technical writer asking fo r refills for Areds and Omeprazole. Please renew orders if appropriate. Thank you. Disposition: Message to provider /pablo/ SAM OBREGON RN [facility] Signed: 12/07/2021 10:15 Receipt Acknowledged By: * AWAITING SIGNATURE * VIPUL CRANE
--- OUTSIDE RECORDS SUMMARY | 2022-03-13 16:16 | XMS_ITS | Encounter Summary ---
:1945 Author Organization Department of [facility] rs Address [address] [place] [address] Support Name Relationship Address Phone SIRIA THOMPSON Unavailable [address], [place] [address] JANEY LOPEZ Unavailable [address] [place] [address] [facility], Unavailable [address] [facility] [place] [address] Insurance Providers: All historical and current Section [...] MEDICARE MEDICARE PART Sep 26, PART A [id number] 800 DONNA ALMANZAR (WNR) (M) A 2012 [id number] [phone] JUAN LANDAVERDE MEDICARE MEDICARE PART Sep 26, PART B [id number] 800 DONNA ALMANZAR (WNR) (M) B 2012 [id number] [phone] JUAN LANDAVERDE Selected Encounter This section includes the information on record at [place] for the Encounter. Date/Time Encounter Type Encounter Description Reason Provider Source December 22, 2021 10:51 Outpatient Encounter PRIMARY CARE/MEDICINE AM IHE Encounter Template Text not used by [place] Plan of Treatment: Future Appointments (+ 6 [...] 20 appointments. The data comes from all [place] treatment facilities. Appointment Date/Time Appointment Type Appointment Facili ty Name Jan 17, 2022 11:00 AM AMBULATORY - MEDICINE [facility] CS Jan 17, 2022 12:30 PM AMBULATORY - NONE [facility] Feb 02, 2022 11:16 AM AMBULATORY - NONE [facility] Feb 09, 2022 01:00 PM AMBULATORY - SURGERY [facility] S Apr 11, 2022 11:00 AM AMBULATORY - MEDICINE [facility] Apr 30, 2022 10:30 AM AMBULATORY - PSYCHIATRY [facility] Lab Results: +/- 30 days of the encounter This section includes the Chemistry and Hematology Lab Results on record with [place] for the patient. Radiology Reports and Pathology Reports are provided separately, in subsequent sections.Lab Results This section contains the Chemistry/Hematology Results that were resulted 30 days before or 30 daysafter the date of the Encounter. Date/Time Source Result Type Result - Unit Interpretation Reference Range Comment December 21, 2021 10:34 AM [facility] HEMOGLOBIN A1C Specim en Type: BLOOD No comment enter ed. Ordering Provid er: VIPUL CRANE Report Released Date/Time: Oct 11, 2021 08:32 AM Reporting Lab: [facility] [address] [facility] [id number] Performing Lab: [facility] [address] [facility] [id number] HEMOGLOBIN A1C 8.0 H 4.0-6.0 Social History: Smoking Status (Most current) and Tobacco Use (All prior to encounter date) This section includes the most current, and the historical, smoking and tobacco-related health factors from the [place] facility where the Encounter took place.Current Smoking Status This section includes the most current smoking, or tobacco-related health factor, from the [place] facility where the Encounter took place. Date/Time Current Smoking Status Comment Facility Aug 21, 2021 01:00 PM VA-TOBACCO FORMER USER [facility] Tobacco Use History This section includes a history of the smoking, or tobacco- related health factors, that were collected on or before the date of the Encounter. The data comes from the [place] facility where the Encounter took place. Date/Time Smoking Status/Tobacco Use Comment Facil ity Aug 21, 2021 01:00 PM RI-TOBACCO QUIT 15 YRS OR MORE [facility] Jul 09, 2018 08:58 AM VA-TOBACCO FORMER USER MIN [facility] Jul 09, 2018 08:58 AM RI-TOBACCO QUIT 15 YRS OR MORE [facility] Jul 18, 2017 09:58 AM FORMER TOBACCO USER 7Y OR GREATER [facility] Aug 14, 2016 10:59 AM FORMER TOBACCO USER 7Y OR GREATER [facility] Jun 29, 2015 02:03 PM FORMER TOBACCO USER 7Y OR GREATER [facility] Jan 06, 2014 03:04 PM FORMER TOBACCO USER 7Y OR GREATER [facility] Jan 04, 2012 08:36 AM FORMER TOBACCO USER 7Y OR GREATER [facility] Radiology Reports: +/- 30 days of the [...] the Encounter. The data comes from all [place] treatment facilities. Date/Time Radiology Report Provider Source Jan 17, 2022 12:17 PM KNEE LEFT 4 VIEWS: LYNNE MARTÍNEZ [facility] JUAN THOMPSON [id number] -1945 M Exm Date: JAN 17, 2022@12:17 Req Phys: MAI MORALEZ Pat Loc: [facility] APACT L RES 0 2 WH 4F (Req' Img Loc: MAIN X-RAY Service: Unknown (Case [id number] COMPLETE) KNEE LEFT 4 VIEWS (RAD Detai led) CPT:96438 Reason for Study: knee pain Clinical History: IS NOT under investigation for COVID-19 or is COVID-19 negative knee pain Report Status: Verified Date Reported: JAN 17, 2022 Date Verified: JAN 17, 2022 Motion Study Engineer E-Sig:/ES/LYNNE MARTÍNEZ DO Report: EXAMINATION: KNEE LEFT [...] Primary Interpreting Staff: LYNNE MARTÍNEZ DO, RADIOLOGIST (Motion Study Engineer) /DDS Jan 17, 2022 12:17 PM KNEE RIGHT 4 VIEWS: LYNNE [facility]Z [facility] JUAN THOMPSONIC [id number] -1945 M Ex Date: JAN 17, 2022@12:17 Req Phys: MAI MORALEZ F Pat Loc: [facility] APACT L RES 0 2 WH 4F (Req' Img Loc: MAIN X-RAY Service: Unknown (Case [id number] COMPLETE) KNEE RIGHT 4 VIEWS (HETAL guerra) CPT:50763 Reason for Study: knee pain Clinical History: [place] IS NOT under investigation for COVID-19 or is COVID-19 negative knee pain Report Status: Verified Date Reported: JAN 17, 2022 Date Verified: JAN 17, 2022 Motion Study Engineer E-Sig:/ES/LYNNE MARTÍNEZ DO Report: EXAMINATION: KNEE LEFT [...] Primary Interpreting Staff: LYNNE MARTÍNEZ DO, RADIOLOGIST (Motion Study Engineer) /DDS Encounter Notes: All associated encounter notes This section contains the clinical notes associated to the Encounter. Date/Time Encounter Note(s) Provider Source December 22, 2021 10:51 AM HOME HEALTH REFERRAL NOTE: MARQUISE LYLE [facility] LOCAL TITLE: [facility] HOME HEALTH CARE STANDARD TITLE: HOME HEALTH REFERRAL NOTE DATE OF NOTE: DECEMBER 22, 2021@10:51 ENTRY DATE: DECEMBER 22, 2021@10:51:12 AUTHOR: MARQUISE LYLE EXP COSIGNER: URGENCY: STATUS: COMPLETED HOME HEALTH CARE CERTIFICATION AND PLAN OF CARE SIGNED BY: Dr. Ordaz, [facility] [id number] Certification period From: November To: Jan 26 /pablo/ MARQUISE LYLE [facility]VANCED MSA Signed: 12/22/2021 10:51
--- OUTSIDE RECORDS SUMMARY | 2022-03-13 16:16 | XMS_ITS | Encounter Summary ---
:1945 Author Organization Department of [facility] rs Address [address] [place] [address] Support Name Relationship Address Phone SIRIA THOMPSON Unavailable [address], [place] [address] JANEY LOPEZ Unavailable [address] [place] [address] [facility], Unavailable [address] [facility] [place] [address] Insurance Providers: All historical and current Section [...] MEDICARE MEDICARE PART Sep 26, PART A [id number] 800 DONNA HUANG YOHAN (WNR) (M) A 2012 [id number] [phone] JUAN MEDICARE MEDICARE PART Sep 26, PART B [id number] 800 DONNAAMARILIS ALMANZAR (WNR) (M) B 2012 [id number] [phone] JUAN Selected Encounter This section includes the information on record at [place] for the Encounter. Date/Time Encounter Type Encounter Description Reason Provider Source Jan 03, 2022 08:34 Outpatient Encounter TELEPHONE TRIAGE AM IHE Encounter Template Text not used [...] 17, 2022 11:00 AM AMBULATORY - MEDICINE [facility] CS Jan 17, 2022 12:30 PM AMBULATORY - NONE [facility] Feb 02, 2022 11:16 AM AMBULATORY - NONE [facility] Feb 09, 2022 01:00 PM AMBULATORY - SURGERY [facility] S Apr 11, 2022 11:00 AM AMBULATORY - MEDICINE [facility] Apr 30, 2022 10:30 AM AMBULATORY - PSYCHIATRY [facility] Lab Results: +/- 30 days of [...] Range Comment December 21, 2021 10:34 AM [facility] HEMOGLOBIN A1C Specim en Type: BLOOD No comment enter ed. Ordering Provid er: VIPUL CRANE Report Released Date/Time: Oct 11, 2021 08:32 AM Reporting Lab: [facility] [address] [facility] [id number] Performing Lab: [facility] [address] [facility] [id number] HEMOGLOBIN A1C 8.0 H 4.0-6.0 Social History: [...] 2021 01:00 PM VA-TOBACCO FORMER USER MIN [facility] Tobacco Use History This section includes a history of the smoking, or tobacco- related health factors, that were collected on or before the date of the Encounter. The data comes from the [place] facility where the Encounter took place. Date/Time Smoking Status/Tobacco Use Comment Facil ity Aug 21, 2021 01:00 PM NH-TOBACCO QUIT 15 YRS OR MORE [facility] Jul 09, 2018 08:58 AM VA-TOBACCO FORMER USER MIN [facility] Jul 09, 2018 08:58 AM NH-TOBACCO QUIT 15 YRS OR MORE [facility] Jul 18, 2017 09:58 AM FORMER TOBACCO USER 7Y OR GREATER [facility] Aug 14, 2016 10:59 AM FORMER TOBACCO USER 7Y OR GREATER [facility] Jun 29, 2015 02:03 PM FORMER TOBACCO USER 7Y OR GREATER [facility] Jan 06, 2014 03:04 PM FORMER TOBACCO USER 7Y OR GREATER [facility] Jan 04, 2012 08:36 AM FORMER TOBACCO USER 7Y OR GREATER [facility] Radiology Reports: +/- 30 days of [...] PM KNEE LEFT 4 VIEWS: LYNNE MARTÍNEZ [facility] JUAN THOMPSON [id number] -1945 M Exm Date: JAN 17, 2022@12:17 Req Phys: MAI MORALEZ Pat Loc: [facility] APACT L RES 0 2 WH 4F (Req' Img Loc: MAIN X-RAY Service: Unknown (Case [id number] COMPLETE) KNEE LEFT 4 VIEWS (RAD Detai led) CPT:67005 Reason for Study: knee pain Clinical History: IS NOT under investigation for COVID-19 or is COVID-19 negative knee pain Report Status: Verified Date Reported: JAN 17, 2022 Date Verified: JAN 17, 2022 Aircraft Ordnance Technician E-Sig:/ES/LYNNE MARTÍNEZ DO Report: EXAMINATION: KNEE LEFT [...] Primary Interpreting Staff: LYNNE MARTÍNEZ DO, RADIOLOGIST (Aircraft Ordnance Technician) /DDS Jan 17, 2022 12:17 PM KNEE RIGHT 4 VIEWS: LYNNE MARTÍNEZ [facility] JUAN THOMPSON [id number] -1945 M Ex Date: JAN 17, 2022@12:17 Req Phys: MORALEZ,MAI F Pat Loc: [facility] APACT L RES 0 2 WH 4F (Req' Img Loc: MAIN X-RAY Service: Unknown (Case [id number] COMPLETE) KNEE RIGHT 4 VIEWS (HETAL guerra) CPT:88969 Reason for Study: knee pain Clinical History: [place] IS NOT under investigation for COVID-19 or is COVID-19 negative knee pain Report Status: Verified Date Reported: JAN 17, 2022 Date Verified: JAN 17, 2022 Aircraft Ordnance Technician E-Sig:/ES/LYNNE MARTÍNEZ DO Report: EXAMINATION: KNEE LEFT [...] Primary Interpreting Staff: LYNNE MARTÍNEZ DO, RADIOLOGIST (Aircraft Ordnance Technician) /DDS Encounter Notes: All associated encounter notes This section contains the clinical notes associated to the Encounter. Date/Time Encounter Note(s) Provider Source Jan 03, 2022 08:34 AM REPORT OF CONTACT: [facility] LOCAL TITLE: PATIENT CONTACT NOTE STANDARD TITLE: REPORT OF CONTACT DATE OF NOTE: JAN 03, 2022@08:34 ENTRY DATE: JAN 03, 2022@08:34:55 AUTHOR: [facility] EXP COSIGNER: URGENCY: STATUS: COMPLETED PATIENT CONTACT NOTE Has [facility] Primary [facility] Call Center Phone number verified as correct. [phone] - [facility] ([facility]) Patricia RN from [facility], called. Patricia is requesting up-to-date med list and verbal order for medical management. Pl ease fax med list to . Pat can be reach at [phone], for verb al order. /pablo/ [facility] VSN 23 [facility] AMSA Signed: 01/03/2022 08:36 Receipt Acknowledged By: 01/03/2022 10:00 /aneesh LOPEZ REGISTERED NURSE for ANTOINETTE Arreola SAULO 01/03/2022 ADDENDUM STATUS: COMPLETED Verbal orders given for medi lance management. Updated med list faxed to [phone] /aneesh LOPEZ REGISTERED NURSE Signed: 01/03/2022 10:00
--- OUTSIDE RECORDS SUMMARY | 2022-03-13 16:17 | XMS_ITS | Encounter Summary ---
:1945 Author Organization Department of [facility] rs Address [address] [place] [address] Support Name Relationship Address Phone SIRIA THOMPSON Unavailable [address], [place] [address] JANEY LOPEZ Unavailable [address] [place] [address] [facility], Unavailable [address] [facility] [place] [address] Insurance Providers: All historical and current Section [...] MEDICARE MEDICARE PART Sep 26, PART A [id number] 800 DONNA ALMANZAR (WNR) (M) A 2012 [phone] JUAN LANDAVERDE MEDICARE MEDICARE PART Sep 26, PART B [id number] 800 DONNA ALMANZAR (WNR) (M) B 2012 [id number] [phone] JUAN LANDAVERDE Selected Encounter This section includes the information on record at [place] for the Encounter. Date/Time Encounter Type Encounter Description Reason Provider Source November 29, 2021 12:00 Outpatient Encounter EVENT (HISTORICAL) AM E Encounter Template Text not used by [place] Plan of Treatment: Future Appointments (+ 6 [...] 20 appointments. The data comes from all [place] treatment facilities. Appointment Date/Time Appointment Type Appointment Facili ty Name December 21, 2021 09:45 AM AMBULATORY - NONE [facility] December 21, 2021 11:15 AM AMBULATORY - MEDICINE [facility] Jan 17, 2022 11:00 AM AMBULATORY - MEDICINE [facility] Jan 17, 2022 12:30 PM AMBULATORY - NONE [facility] Feb 02, 2022 11:16 AM AMBULATORY - NONE [facility] Feb 09, 2022 01:00 PM AMBULATORY - SURGERY [facility] Apr 11, 2022 11:00 AM AMBULATORY - MEDICINE [facility] Apr 30, 2022 10:30 AM AMBULATORY - PSYCHIATRY [facility] Lab Results: +/- 30 days of the encounter This section includes the Chemistry and Hematology Lab Results on record with [place] for the patient. Radiology Reports and Pathology Reports are provided separately, in subsequent sections.Lab Results This section contains the Chemistry/Hematology Results that were resulted 30 days before or 30 daysafter the date of the Encounter. Date/Time Source Result Type Result - Unit Interpretation Reference Range Comment December 21, 2021 10:34 AM [facility] HEMOGLOBIN A1C Specim en Type: BLOOD No comment enter ed. Ordering Provid er: VIPUL CRANE Report Released Date/Time: Oct 11, 2021 08:32 AM Reporting Lab: [facility] [address] [facility] [id number] Performing Lab: [facility] [address] [facility] [id number] HEMOGLOBIN A1C 8.0 H 4.0-6.0 Immunizations: All administered on the encounter date This section contains immunizations associated to the Encounter. Immunization Series Date Issued Reaction Comments COVID-19 (MODERNA), MRNA, LNP-S, PF, 100 4 November 29, 2021 MCG/0.5ML DOSE OR 50 MCG/0.25ML DOSE Social History: Smoking Status (Most current) and Tobacco Use (All prior to encounter date) This section includes the most current, and the historical, smoking and tobacco-related health factors from the [place] facility where the Encounter took place.Current Smoking Status This section includes the most current smoking, or tobacco-related health factor, from the [place] facility where the Encounter took place. Date/Time Current Smoking Status Comment Facility Aug 21, 2021 01:00 PM VA-TOBACCO QUIT 15 YRS OR MORE [facility] Tobacco Use History This section includes a history of the smoking, or tobacco- related health factors, that were collected on or before the date of the Encounter. The data comes from the [place] facility where the Encounter took place. Date/Time Smoking Status/Tobacco Use Comment Facil ity Aug 21, 2021 01:00 PM VA-TOBACCO QUIT 15 YRS OR MORE [facility] Jul 09, 2018 08:58 AM VA-TOBACCO FORMER USER [facility] Jul 09, 2018 08:58 AM VA-TOBACCO QUIT 15 YRS OR MORE [facility] Jul 18, 2017 09:58 AM FORMER TOBACCO USER 7Y OR GREATER [facility] Aug 14, 2016 10:59 AM FORMER TOBACCO USER 7Y OR GREATER [facility] Jun 29, 2015 02:03 PM FORMER TOBACCO USER 7Y OR GREATER [facility] Jan 06, 2014 03:04 PM FORMER TOBACCO USER 7Y OR GREATER [facility] Jan 04, 2012 08:36 AM FORMER TOBACCO USER 7Y OR GREATER [facility]
--- OUTSIDE RECORDS SUMMARY | 2022-03-13 16:17 | XMS_ITS | Encounter Summary ---
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 a son that lives a [place]most 350 miles away but he is not involved with his cares. 6) The Legal guarding reported that overall he i s doing well on his current medication regimen. Okay to go ahead and renew a nd refill as indicated. Then mail to the listed home address. 7) [facility] the Homer with Dr. Delvalle next available but was not available at this time. 8) Will request Dr. Delvalle for an order for the to get scheduled with him and the duration. PLAN: 1) Alert Dr. Delvalle to thi s correspondence for medication review, renewal and refill as indicated. 2) Alert Dr. Delvalle for a follow up visit orde r. 3) Alert [facility] for continuity of care. /pablo/ MYLES JOE RN-BSN, ROJAS BRIGGS, ROJAS Signed: 01/26/2022 15:34 Receipt Acknowledged By: 01/26/2022 15:53 /pablo/ USHA DELVALLE MD Staff Psychiatrist * AWAITING SIGNATURE * RAULBRAXTON 01/26/2022 ADDENDUM STATUS: COMPLETED Renewed Bupropion, Venlafaxine, Aripiprazole and Quetiapine at most recently prescribed dosages. RTC order placed. /pablo/ USHA DELVALLE MD Staff Psychiatrist Signed: 01/26/2022 15:50 Receipt Acknowledged By: * AWAITING SIGNATURE * MYLES JOE
--- OUTSIDE RECORDS SUMMARY | 2022-03-13 16:17 | XMS_ITS | Encounter Summary ---
:1945 Author Organization Department of [facility] rs Address [address] [place] [address] Support Name Relationship Address Phone SIRIA THOMPSON Unavailable [address] [address] JANEY LOPEZ Unavailable [address] [place] [address] [facility], Unavailable [address] [facility] [place] [address] Insurance Providers: All historical and current Section [...] MEDICARE MEDICARE PART Sep 26, PART A [id number] DONNA HUANG YOHAN (WNR) (M) A 2012 [id number] JUAN MEDICARE MEDICARE PART Sep 26, PART B [id number] DONNAAMARILIS ALMANZAR (WNR) (M) B 2012 [phone] JUAN Selected Encounter This section includes the information on record at [place] for the Encounter. Date/Time Encounter Type Encounter Description Reason Provider Source Oct 20, 2021 03:25 Outpatient Encounter TELEPHONE TRIAGE PM IHE Encounter Template Text not used by [place] Plan of Treatment: Future Appointments (+ 6 [...] 21, 2021 09:45 AM AMBULATORY - NONE [facility] December 21, 2021 11:15 AM AMBULATORY - MEDICINE [facility] Jan 17, 2022 11:00 AM AMBULATORY [facility] MEDICINE [facility] Jan 17, 2022 12:30 PM AMBULATORY - NONE [facility] Feb 02, 2022 11:16 AM AMBULATORY - NONE [facility] Feb 09, 2022 01:00 PM AMBULATORY - SURGERY [facility] S Apr 11, 2022 11:00 AM AMBULATORY - MEDICINE [facility] Active, Pending, and Scheduled Orders This section includes a listing of several types of active, pending, and scheduled orders, including clinic medications orders, diagnostic test orders, procedure orders and consult orders; where the start date of the order is 45 days before the date of the Encounter or 45 days after the date of the Encounter. The data comes from all [facility]. Test Date/Time Test Type Test Details Facility Name Oct 04, 2021 02:12 PM Laboratory - Chemistry MICROALBUMIN/CREATI N [facility] Order INE RATIO URINE URINE WC ONCE Lab Results: +/- 30 days of the encounter This section includes the Chemistry and Hematology Lab Results on record with [place] for the patient. Radiology Reports and Pathology Reports are provided separately, in subsequent sections.Lab Results This section contains the Chemistry/Hematology Results that were resulted 30 days before or 30 daysafter the date of the Encounter. Date/Time Source Result Type Result - Unit Interpretation Reference Range Comment Oct 04, 2021 03:59 PM [facility] VITAMIN E Specim en Type: SERUM Comment: Levels of alpha-tocopherol <5 mg/L are consistent with Vitamin E deficiency in adults. Vitamin supplementation within 24 hours prior to blood draw may affect the accuracy of the results. Th is test was rocael cisneros and its analytical performance characteristics have been determined by [employer] [place], [place]. It has not been cleared or approved by the U.S. Food and D rug Administrati on. This assay has been validated pursuant to the CLIA regulations and is used for clinical purposes. Test Performed by [facility], [employer] [facility], [address] [facility], [place], [place] Devante Meyer M.D., Ph.D., Director of Laboratories , CLIA [id number] Ordering Provid er: VIPUL CRANE Report Released Date/Time: Oct 04, 2021 02:12 PM Reporting Lab: [facility] [address] [facility] [address] Performing Lab: [address] .VITAMIN E (ALPHA) 11.9 5.7-19.9 .VITAMIN E (B-GAMMA) <1.0 <=4.3 Oct 04, 2021 03:59 PM [facility] VITAMIN A Specim en Type: SERUM Comment: Vitami n supplementation within 24 hours prior to blood draw may affect the accuracy of the results. This test was developed and its analytical performance characteristics have been determined by [employer] [place], [place]. It has not been cleared or approved by the U.S. Food and Drug Administration. This assay has been validated pursuant to the CLIA regulations and is used for clinica l purposes. Test Performed by [facility], [employer] [facility], [address] [place] [address] Devante Meyer M.D., Ph.D., Director of Laboratories , CLIA [id number] Ordering Provid er: VIPUL CRANE Report Released Date/Time: Oct 04, 2021 02:12 PM Reporting Lab: [facility] [address] [address] Performing Lab: [address] VITAMIN A 60 38-98 Oct 04, 2021 03:59 PM [facility] FOLATE Specim en Type: SERUM No comment enter ed. Ordering Provid er: VIPUL CRANE Report Released Date/Time: Oct 04, 2021 02:12 PM Reporting Lab: [facility] [address] [facility] [address] Performing Lab: [facility] [address] [facility] [address] FOLATE 17.7 >7.0 Oct 04, 2021 03:59 [facility] TSH W/REFLEX TO FREE Spec imen Type: PLASMA PM T4 No comment enter ed. Ordering Provid er: VIPUL CRANE Report Released Date/Time: Oct 04, 2021 02:12 PM Reporting Lab: [facility] [address] [facility] [address] Performing Lab: [facility] [address] [facility] [address] TSH 1.78 0.35-4.94 Oct 04, 2021 03:59 PM [facility] B 12 Specim en Type: SERUM No comment enter ed. Ordering Provid er: VIPUL CRANE Report Released Date/Time: Oct 04, 2021 02:12 PM Reporting Lab: [facility] [address] [facility] [address] Performing Lab: [facility] [address] [facility] [address] B 12 604 213-816 Oct 04, 2021 03:59 [facility] VIT D 25-OH,TOTAL Specime n Type: SERUM PM No comment enter ed. Ordering Provid er: VIPUL CRANE Report Released Date/Time: Oct 04, 2021 02:12 PM Reporting Lab: [facility] [address] [facility] [address] Performing Lab: [facility] [address] [facility] [address] VIT D 25-OH,TOTAL 79 H 12-50 Oct 04, 2021 03:59 PM [facility] HEMOGLOBIN A1C Specim en Type: BLOOD No comment enter ed. Ordering Provid er: VIPUL CRANE Report Released Date/Time: Oct 04, 2021 02:12 PM Reporting Lab: [facility] [address] [facility] [address] Performing Lab: [facility] [address] [facility] [address] HEMOGLOBIN A1C 7.1 H 4.0-6.0 Oct 04, 2021 [facility] LIPID PANEL,NON-FASTING Spec imen Type: PLASMA 03:59 PM No comment enter ed. Ordering Provid er: VIPUL CRANE Report Released Date/Time: Oct 04, 2021 02:12 PM Reporting Lab: [facility] [address] [facility] [address] Performing Lab: [facility] [address] [facility] [address] CHOLESTEROL 114 <199 .HDL 45 >40 LDL CALCULATION 55 <99 VLDL CALCULATION 14 <29 NON HDL CHOLESTEROL 69 <129 TRIG(NON FASTING) 69 <149 Oct 04, 2021 03:59 PM [facility] CBC Specim en Type: BLOOD No comment enter ed. Ordering Provid er: VIUPL CRANE Report Released Date/Time: Oct 04, 2021 02:12 PM Reporting Lab: [facility] [address] Performing Lab: [facility] [address] WBC 8.98 4.0-11.0 RBC 4.19 L 4.6-6.2 HGB 12.1 L 13.5-17.9 HCT 36.4 L 41-54 MCV 86.9 80-100 MCH 28.9 27-33 MCHC 33.2 32.0-37.5 PLT 279 150-400 MPV 10.5 H 7.4-10.4 RDW 13.2 11.5-14.5 Oct 04, 2021 [facility] COMPREHENSIVE METABOLIC Spec imen Type: PLASMA 03:59 PM PANEL+MG No comment enter ed. Ordering Provid er: VIPUL CRANE Report Released Date/Time: Oct 04, 2021 02:12 PM Reporting Lab: [facility] [address] Performing Lab: [facility] [address] CREATININE 1.1 0.7-1.2 UREA NITROGEN 17 8-26 GLUCOSE 118 H 74-100 SODIUM 142 136-145 POTASSIUM 3.6 3.5-5.1 CHLORIDE 105 98-107 CO2 26 22-29 CALCIUM 9.3 8.4-10.2 PROTEIN,TOTAL 6.4 6.0-8.3 ALBUMIN 4.1 3.5-5.2 BILIRUBIN, TOTAL 0.6 0.2-1.2 MAGNESIUM 1.3 L 1.6-2.6 ANION GAP 11 5-15 ALKALINE PHOSPHATASE 119 40-150 ALT/SGPT 12 <55 AST/SGOT 15 <34 CREAT EGFR(CKD-EPI) 71 >60 Oct 04, 2021 [facility] MICROALBUMIN/CREATININE RATIO Specimen Type: URINE 03:53 PM URINE No comment enter ed. Ordering Provid er: VIPUL CRANE Report Released Date/Time: Oct 04, 2021 03:39 PM Reporting Lab: [facility] [address] Performing Lab: [facility] [address] CREATININE,UR RANDOM 117.0 58.0-161. 0 ALB/CREAT RATIO,UR 15.8 <29.9 MICROALBUMIN,UR 18.5 <29.9 Social History: Smoking Status (Most current) and Tobacco Use (All prior to encounter date) This section includes the most current, and the historical, smoking and tobacco-related health factors from the [facility] where the Encounter took place.Current Smoking Status This section includes the most current smoking, or tobacco-related health factor, from the [facility] where the Encounter took place. Date/Time Current Smoking Status Comment Facility Aug 21, 2021 01:00 PM [place]-TOBACCO FORMER USER [facility] Tobacco Use History This section includes a history of the smoking, or tobacco- related health factors, that were collected on or before the date of the Encounter. The data comes from the [facility] where the Encounter took place. Date/Time Smoking Status/Tobacco Use Comment [facility] Aug 21, 2021 01:00 PM [place]-TOBACCO QUIT 15 YRS OR MORE [facility] Jul 09, 2018 08:58 AM [place]-TOBACCO FORMER USER [facility] Jul 09, 2018 08:58 AM [place]-TO[place]ACCO QUIT 15 YRS OR MORE [facility] Jul 18, 2017 09:58 AM FORMER TOBACCO USER 7Y OR GREATER [facility] Aug 14, 2016 10:59 AM FORMER TOBACCO USER 7Y OR GREATER [facility] Jun 29, 2015 02:03 PM FORMER TOBACCO USER 7Y OR GREATER [facility] Jan 06, 2014 03:04 PM FORMER TOBACCO USER 7Y OR GREATER [facility] Jan 04, 2012 08:36 AM FORMER TOBACCO USER 7Y OR GREATER [facility] Encounter Notes: All associated encounter notes This section contains the clinical notes associated to the Encounter. Date/Time Encounter Note(s) Provider Source Oct 20, 2021 03:25 PM REPORT OF CONTACT: ROYA ARANGO [facility] LOCAL TITLE: PATIENT CONTACT NOTE STANDARD TITLE: REPORT OF CONTACT DATE OF NOTE: OCT 20, 2021@15:25 ENTRY DATE: OCT 20, 2021@15:25:09 AUTHOR: ROYA ARANGO EXP COSIGNER: URGENCY: STATUS: COMPLETED PATIENT CONTACT NOTE Has [facility] Phone number verified as correct. Patient called back to schedule phone ca ll appointment with pcp. gag writer unable to schedule with pcp in December or January. patient crystal gregory like to be scheduled in December. He is okay with [facility] r resident giving him a call if need be. please call back to assist. /pablo/ ROYA patiño 23 [facility]sa Signed: 10/20/2021 15:30 Receipt Acknowledged By: 10/22/2021 20:46 /pablo/ VIPUL CRANE MD RESIDENT 10/20/2021 15:36 /pablo/ SAM OBREGON RN APACT FURNACE FILLER 10/20/2021 ADDENDUM STATUS: COMPLETED Max, please call this patien t and schedule him with any available provider for a telephone appt. I have called him once t o find out why he wants an appt. I had to leave a message. If you c an't connect with him we will have to wait until he contacts us. I will put an RTC in just i n case you contact him and we can move forward with his request. If you don't reach him please let me know and I'll remove the RTC order. thank you. /aneesh OBREGON RN APACT FURNACE FILLER Signed: 10/23/2021 14:35 Receipt Acknowledged By: 10/25/2021 11:43 /aneesh LUEVANO OIL INSPECTOR 10/23/2021 ADDENDUM STATUS: COMPLETED Patient was called at his number on file to request more information on why he wants to be seen. Left [facility] for patient to call this gag writer back at directed phone number. Will place RTC order after patient calls with more information. /aneesh OBREGON RN APACT FURNACE FILLER Signed: 10/23/2021 07:50 10/24/2021 ADDENDUM STATUS: COMPLETED Please schedule Vet for phone appointment after A1C on 12/21 to discuss the switch from 70/30 to lantus /aneesh LUEVANO OIL INSPECTOR Signed: 10/24/2021 13:04 10/25/2021 ADDENDUM STATUS: COMPLETED Left a 2nd voicemail with Vet. /aneesh LUEVANO OIL INSPECTOR Signed: 10/25/2021 11:42
--- OUTSIDE RECORDS SUMMARY | 2022-03-13 16:17 | XMS_ITS | Encounter Summary ---
:1945 Author Organization Department of [facility] rs Address [address] [place] [address] Support Name Relationship Address Phone SIRIA THOMPSON Unavailable [address], [place] [phone] [place] [address] JANEY LOPEZ Unavailable [address] [place] [address] [facility], Unavailable [address] [facility] [place] [address] Insurance Providers: All historical and current [...] MEDICARE MEDICARE PART Sep 26, PART A [id number] 800 DONNA ALMANZAR (WNR) (M) A 2012 [phone] JUAN LANDAVERDE MEDICARE MEDICARE PART Sep 26, PART B [id number] 800 DONNA ALMANZAR (WNR) (M) B 2012 [phone] JUAN LANDAVERDE Selected Encounter This section includes the information on record at [place] for the Encounter. Date/Time Encounter Type Encounter Description Reason Provider Source November 30, 2021 07:47 Outpatient Encounter PRIMARY CARE/MEDICINE AM IHE Encounter Template Text not used by [place] Plan of Treatment: Future Appointments (+ 6 [...] 20 appointments. The data comes from all [place] treatment facilities. Appointment Date/Time Appointment Type Appointment Facili ty Name December 21, 2021 09:45 AM AMBULATORY - NONE [facility] December 21, 2021 11:15 AM AMBULATORY - MEDICINE [facility] Jan 17, 2022 11:00 AM AMBULATORY - MEDICINE [facility] Jan 17, 2022 12:30 PM AMBULATORY - NONE [facility] Feb 02, 2022 11:16 AM AMBULATORY - NONE [facility] Feb 09, 2022 01:00 PM AMBULATORY - SURGERY [facility] Apr 11, 2022 11:00 AM AMBULATORY - MEDICINE [facility] Apr 30, 2022 10:30 AM AMBULATORY - PSYCHIATRY [facility] Lab Results: +/- 30 days of the encounter This section includes the Chemistry and Hematology Lab Results on record with [place] for the patient. Radiology Reports and Pathology Reports are provided separately, in subsequent sections.Lab Results This section contains the Chemistry/Hematology Results that were resulted 30 days before or 30 daysafter the date of the Encounter. Date/Time Source Result Type Result - Unit Interpretation Reference Range Comment December 21, 2021 10:34 AM [facility] HEMOGLOBIN A1C Specim en Type: BLOOD No comment enter ed. Ordering Provid er: VIPUL CRANE Report Released Date/Time: Oct 11, 2021 08:32 AM Reporting Lab: [facility] [address] [facility] [address] Performing Lab: [facility] [address] [facility] [address] HEMOGLOBIN A1C 8.0 H 4.0-6.0 Social History: Smoking Status (Most current) and Tobacco Use (All prior to encounter date) This section includes the most current, and the historical, smoking and tobacco-related health factors from the [place] facility where the Encounter took place.Current Smoking Status This section includes the most current smoking, or tobacco-related health factor, from the [place] facility where the Encounter took place. Date/Time Current Smoking Status Comment Facility Aug 21, 2021 01:00 PM [place]-TOBACCO FORMER USER [facility] Tobacco Use History This section includes a history of the smoking, or tobacco- related health factors, that were collected on or before the date of the Encounter. The data comes from the [place] facility where the Encounter took place. Date/Time Smoking Status/Tobacco Use Comment Facil it Aug 21, 2021 01:00 PM [place]-TOBACCO QUIT 15 YRS OR MORE [facility] Jul 09, 2018 08:58 AM [place] Jul 09, 2018 08:58 AM [place]-TOBACCO QUIT 15 YRS OR MORE [facility] Jul 18, 2017 09:58 AM FORMER TOBACCO USER 7Y OR GREATER [facility] Aug 14, 2016 10:59 AM FORMER TOBACCO USER 7Y OR GREATER [facility] Jun 29, 2015 02:03 PM FORMER TOBACCO USER 7Y OR GREATER [facility] Jan 06, 2014 03:04 PM FORMER TOBACCO USER 7Y OR GREATER [facility] Jan 04, 2012 08:36 AM FORMER TOBACCO USER 7Y OR GREATER [facility] Encounter Notes: All associated encounter notes This section contains the clinical notes associated to the Encounter. Date/Time Encounter Note(s) Provider Source November 30, 2021 07:47 AM HOME HEALTH REFERRAL NOTE: MARQUISE LYLE [facility] LOCAL TITLE: [facility] STANDARD TITLE: HOME HEALTH REFERRAL NOTE DATE OF NOTE: NOVEMBER 30, 2021@07:47 ENTRY DATE: NOVEMBER 30, 2021@07:47:29 AUTHOR: MARQUISE LYLE EXP COSIGNER: URGENCY: STATUS: COMPLETED HOME HEALTH CARE CERTIFICATION AND PLAN OF CARE SIGNED BY: Dr. Ordaz, Home Care [facility] [id number] Certification period From: Sep To: November 27 /pablo/ MARQUISE LYLE [facility]ED MSA Signed: 11/30/2021 07:48
--- OUTSIDE RECORDS SUMMARY | 2022-03-13 16:17 | XMS_ITS | Encounter Summary ---
:1945 Author Organization Department of [facility] rs Address [address] [place] [address] Support Name Relationship Address Phone SIRIA THOMPSON Unavailable [address] [phone] [place] [address] IVETTE OTTO Unavailable [address] [place] [address] [facility], Unavailable [address] [facility] [place] [address] Insurance Providers: All historical and current Section [...] MEDICARE MEDICARE PART Sep 26, PART A [id number] DONNA ALMANZAR (WNR) (M) A 2012 [id number] [phone] GIO LANDAVERDE MEDICARE MEDICARE PART Sep 26, PART B [id number] 800 DONNA ALMANZAR (WNR) (M) B 2012 [id number] [phone] GIO LANDAVERDE Selected Encounter This section includes the information on record at [place] for the Encounter. Date/Time Encounter Type Encounter Reason Provider Source Description December 04, 2021 01:44 Outpatient PRIMARY CINDY REY PM Encounter CARE/MEDICINE E Encounter Template Text not used by [place] Plan of Treatment: Future Appointments (+ 6 [...] 20 appointments. The data comes from all [place] treatment facilities. Appointment Date/Time Appointment Type Appointment Facili ty Name December 21, 2021 09:45 AM AMBULATORY - NONE [facility] December 21, 2021 11:15 AM AMBULATORY - MEDICINE [facility] Jan 17, 2022 11:00 AM AMBULATORY - MEDICINE [facility] Jan 17, 2022 12:30 PM AMBULATORY - NONE [facility] Feb 02, 2022 11:16 AM AMBULATORY - NONE [facility] Feb 09, 2022 01:00 PM AMBULATORY - SURGERY [facility] Apr 11, 2022 11:00 AM AMBULATORY - MEDICINE [facility] Apr 30, 2022 10:30 AM AMBULATORY - PSYCHIATRY [facility] Lab Results: +/- 30 days of the encounter This section includes the Chemistry and Hematology Lab Results on record with [facility] for the patient. Radiology Reports and Pathology Reports are provided separately, in subsequent sections.Lab Results This section contains the Chemistry/Hematology Results that were resulted 30 days before or 30 daysafter the date of the Encounter. Date/Time Source Result Type Result - Unit Interpretation Reference Range Comment December 21, 2021 10:34 AM [facility] HEMOGLOBIN A1C Specim en Type: BLOOD No comment enter ed. Ordering Provid er: VIPUL CRANE Report Released Date/Time: Oct 11, 2021 08:32 AM Reporting Lab: [facility] [address] [facility] [address] Performing Lab: [facility] [address] [facility] [address] HEMOGLOBIN A1C 8.0 H 4.0-6.0 Social History: Smoking Status (Most current) and Tobacco Use (All prior to encounter date) This section includes the most current, and the historical, smoking and tobacco-related health factors from the [place] facility where the Encounter took place.Current Smoking Status This section includes the most current smoking, or tobacco-related health factor, from the [place] facility where the Encounter took place. Date/Time Current Smoking Status Comment Facility Aug 21, 2021 01:00 PM [facility]-TO[facility]ACCO [facility]MER USER [facility] Tobacco Use History This section includes a history of the smoking, or tobacco- related health factors, that were collected on or before the date of the Encounter. The data comes from the [place] facility where the Encounter took place. Date/Time Smoking Status/Tobacco Use Comment Facil [facility] Aug 21, 2021 01:00 PM VA-TOBACCO QUIT 15 YRS OR MORE [facility] Jul 09, 2018 08:58 AM [facility]-TOBACCO FORMER USER [facility] Jul 09, 2018 08:58 AM VA-TOBACCO QUIT 15 YRS OR MORE [facility] Jul 18, 2017 09:58 AM FORMER TOBACCO USER 7Y OR GREATER [facility] Aug 14, 2016 10:59 AM FORMER TOBACCO USER 7Y OR GREATER [facility] Jun 29, 2015 02:03 PM FORMER TOBACCO USER 7Y OR GREATER [facility] Jan 06, 2014 03:04 PM FORMER TOBACCO USER 7Y OR GREATER [facility] Jan 04, 2012 08:36 AM FORMER TOBACCO USER 7Y OR GREATER [facility] Encounter Notes: All associated encounter notes This section contains the clinical notes associated to the Encounter. Date/Time Encounter Note(s) Provider Source December 04, 2021 01:44 PM SOCIAL WORK RISK ASSESSMENT SCREENING NOTE: CINDY REY [facility] LOCAL TITLE: SOCIAL WORK TRIAGE ASSESSMENT STANDARD TITLE: SOCIAL WORK RISK ASSESSMENT SCRE ENING NOTE DATE OF NOTE: DECEMBER 04, 2021@13:44 ENTRY DATE: DECEMBER 04, 2021@13:45:02 AUTHOR: CINDY REY EXP COSIGNER: URGENCY: STATUS: COMPLETED SOCIAL WORK TRIAGE ASSESSMENT Has ADDENDA * SOCIAL WORK TRIAGE ASSESSMENT Referral source: Legal Guardian Ivette Maiton Presenting issues: Documentation Brief summary: Ivette had left a requesting a return call to [phone] Is case management recommended? No Social Work Interventions and Plan: Warranty Clerk reviewed Mr Thompson's chart and ursula Steele's call: - Ivette informed she had previously submitted c ourt documentation appointing her as the legal guardian of Mr Thompson , however she believes it has not made its way into the EHR - Warranty Clerk offered to receive court documents via fax or email to facilitate expeditious forwarding to Executive Dianna sandoval - provided email address as well as PCSW fax numbers Warranty Clerk inquired and Ivette bauer eclined having any other questions/concerns at this time PCSW will remain available /es/ CINDY REY CLAY MACHINE OPERATOR, [facility] SVP PROGRAMMATIC TV Signed: 12/06/2021 14:44 01/01/2022 ADDENDUM STATUS: COMPLETED Warranty Clerk received the following email with pdf attachment FH Facts and Findings. Warranty Clerk forwarded printout of attachment to [facility] Executive Dianna Bernal. Ivette Simms [email or web address]. 01/01/2022 11:46 am SUBJECT: FH Court Orders Shaq Rivera, I'm reaching out to you as [facility] of [facility] is your patient, Gio Thompson's, court appointed legal guardian. I've attached the Facts and Findings report for your review and re cords. The order for Guardianship is on the last two pages of this at [facility]. Please use my cell number of [phone] for all appointment and i mportant information. Gio Thompson's information: Address: [address] [place] [address] [address], [facility] [address] 7 : [birth year] Last 4 of SSN: [id number] Thank you for your assistance, Ivette Otto [facility] [address] [facility] [address] Office: [phone] PCSW will remain available /es/ TRE TALLEY, [facility] SVP PROGRAMMATIC TV Signed: 01/01/2022 13:26
--- OUTSIDE RECORDS SUMMARY | 2022-03-13 16:17 | XMS_ITS | Encounter Summary ---
:1945 Author Organization Department of [facility] rs Address [address] [place] [address] Support Name Relationship Address Phone SIRIA THOMPSON Unavailable [address] [phone] [place] [address] IVETTE LOPEZ Unavailable [address] [place] [address] [facility], Unavailable [address] [facility] [place] [address] Insurance Providers: All historical and current Section [...] MEDICARE MEDICARE PART Sep 26, PART A [id number] 800 DONNA HUANG YOHAN (WNR) (M) A 2012 [id number] [phone] JUAN LANDAVERDE MEDICARE MEDICARE PART Sep 26, PART B [id number] 800 DONNA SAL ALMANZAR (WNR) (M) B 2012 [id number] [phone] JUAN LANDAVERDE Selected Encounter This section includes the information on record at [place] for the Encounter. Date/Time Encounter Type Encounter Description Reason Provider Source December 01, 2021 12:45 Outpatient [facility] Encounter Template Text not used by [place] Plan of Treatment: Future Appointments (+ 6 [...] 20 appointments. The data comes from all [place] treatment facilities. Appointment Date/Time Appointment Type Appointment Facili ty Name December 21, 2021 09:45 AM AMBULATORY - NONE [facility] December 21, 2021 11:15 AM AMBULATORY - MEDICINE [facility] Jan 17, 2022 11:00 AM AMBULATORY - MEDICINE [facility] Jan 17, 2022 12:30 PM AMBULATORY - NONE [facility] Feb 02, 2022 11:16 AM AMBULATORY - NONE [facility] Feb 09, 2022 01:00 PM AMBULATORY - SURGERY [facility] Apr 11, 2022 11:00 AM AMBULATORY - MEDICINE [facility] Apr 30, 2022 10:30 AM AMBULATORY - PSYCHIATRY [facility] Lab Results: +/- 30 days of the encounter This section includes the Chemistry and Hematology Lab Results on record with [place] for the patient. Radiology Reports and Pathology [...] Reporting Lab: [facility] [address] [facility] [address] Performing Lab: [facility] [address] [facility] [address] HEMOGLOBIN A1C 8.0 H 4.0-6.0 Social History: Smoking Status (Most current) and Tobacco Use (All prior to encounter date) This section includes the most current, and the historical, smoking and tobacco-related health factors from the [place] facility where the Encounter took place.Current Smoking Status This section includes the most current smoking, or tobacco-related health factor, from the [place] facility where the Encounter took place. Date/Time Current Smoking Status Comment Facility Aug 21, 2021 01:00 PM VA-TOBACCO FORMER USER [facility] Tobacco Use History This section includes a history of the smoking, or tobacco- related health factors, that were collected on or before the date of the Encounter. The data comes from the [place] facility where the Encounter took place. Date/Time Smoking Status/Tobacco Use Comment [facility] Aug 21, 2021 01:00 PM VA-TOBACCO QUIT 15 YRS OR MORE [facility] Jul 09, 2018 08:58 AM VA-TOBACCO FORMER USER [facility] Jul 09, 2018 08:58 AM VA-TOBACCO QUIT [...] Encounter. Date/Time Encounter Note(s) Provider Source December 01, 2021 12:45 REPORT OF CONTACT: SEVERO AMIN [facility] PM LOCAL TITLE: PATIENT CONTACT NOTE STANDARD TITLE: REPORT OF CONTACT DATE OF NOTE: DECEMBER 01, 2021@12:45 ENTRY DATE: DECEMBER 01, 2021@12:45:32 AUTHOR: SEVERO AMIN EXP COSIGNER: URGENCY: STATUS: COMPLETED Patient contact Name of : DONNAJUAN JR Name/Relationship of Contact if other than Veter an: IVETTE LOPEZ (Friend/Caregiver) Date & Time of Contact: November@12:45 Type of Contact: Telephone Reason for Contact: Ivette (Caregiver) contacted [facility] vi a phone on veterans behalf requesting to reschedule Neuropsychological Eval uation. Team Guide explained that the initial Consult was cancelled (per 14 day co ntact policy) and that a new Consult is required prior to scheduling. Team Guide confirmed that requesting provider would be notified for request for new c onsult and that apprentice painter brush(s) would contact Ivette for scheduling. Ivette is requesting a phone call back at [phone]. /pablo/ SEVERO AMIN [employer] Machine Tender, A Signed: 12/01/2021 12:48 Receipt Acknowledged By: * AWAITING SIGNATURE * LORETA HONEYCUTT
--- OUTSIDE RECORDS SUMMARY | 2022-03-13 16:18 | XMS_ITS | Encounter Summary ---
:1945 Author Organization Department of [facility] rs Address [address] [place] [address] Support Name Relationship Address Phone SIRIA THOMPSON Unavailable [address] [phone] [place] [address] JANEY LOPEZ Unavailable [address] [place] [address] [facility], Unavailable [address] [facility] [place] [address] Insurance Providers: All historical and current Section [...] MEDICARE MEDICARE PART Sep 26, PART A [id number] 800 DONNA ALMANZAR (WNR) (M) A 2012 [id number] [phone] JUAN LANDAVERDE MEDICARE MEDICARE PART Sep 26, PART B [id number] 800 DONNA ALMANZAR (WNR) (M) B 2012 [id number] [phone] JUAN LANDAVERDE Selected Encounter This section includes the information on record at [place] for the Encounter. Date/Time Encounter Type Encounter Description Reason Provider Source Oct 11, 2021 10:28 Outpatient Encounter PRIMARY CARE/MEDICINE [facility] Encounter Template Text not used by [place] Plan of Treatment: Future Appointments (+ 6 [...] 20 appointments. The data comes from all [facility]. Appointment Date/Time Appointment Type Appointment Facili ty Name Oct 18, 2021 01:00 PM AMBULATORY - PSYCHIATRY [facility] December 21, 2021 09:45 AM AMBULATORY - NONE [facility] December 21, 2021 11:15 AM AMBULATORY - MEDICINE [facility] Jan 17, 2022 11:00 AM AMBULATORY - MEDICINE [facility] Jan 17, 2022 12:30 PM AMBULATORY - NONE [facility] Feb 02, 2022 11:16 AM AMBULATORY - NONE [facility] Feb 09, 2022 01:00 PM AMBULATORY - SURGERY [facility] Apr 11, 2022 11:00 AM AMBULATORY - MEDICINE [facility] Active, Pending, and Scheduled Orders This section includes a listing of several types of active, pending, and scheduled orders, including clinic medications orders, diagnostic test orders, procedure orders and consult orders; where the start date of the order is 45 days before the date of the Encounter or 45 days after the date of the Encounter. The data comes from all [facility]. Test Date/Time Test Type Test Details Facility Name Oct 04, 2021 02:12 PM Laboratory - Chemistry MICROALBUMIN/CREATI N [facility] Order INE RATIO URINE URINE [...] Range Comment Oct 04, 2021 03:59 PM [facility] VITAMIN A Specim en Type: SERUM Comment: Vitami n supplementation within 24 hours prior to blood draw may affect the accuracy of the results. This test was developed and its analytical performance characteristics have been determined by [employer] [place], [place]. It has not been cleared or approved by the U.S. Food and Drug Administration. This assay has been validated pursuant to the CLIA regulations and is used for clinica l purposes. Test Performed by [facility], [facility], [address] [facility], [place], [place] Devante Meyer M.D., Ph.D., Director of Laboratories , CLIA [id number] Ordering Provid er: VIPUL CRANE Report Released Date/Time: Oct 04, 2021 02:12 PM Reporting Lab: [facility] [address] [facility] [address] Performing Lab: [address] VITAMIN A 60 38-98 Oct 04, 2021 03:59 PM [facility] VITAMIN E Specim en Type: SERUM Comment: Levels of alpha-tocopherol <5 mg/L are consistent with Vitamin E deficiency in adults. Vitamin supplementation within 24 hours prior to blood draw may affect the accuracy of the results. Th is test was rocael cisneros and its analytical performance characteristics have been determined by [employer] [place], [place]. It has not been cleared or approved by the U.S. Food and D rug Administrati on. This assay has been validated pursuant to the CLIA regulations and is used for clinical purposes. Test Performed by [facility], P[facility] Assistant [facility], [address] [place] [address] Devante Meyer M.D., Ph.D., Director of Laboratories , CLIA [id number] Ordering Provid er: VIPUL CRANE Report Released Date/Time: Oct 04, 2021 02:12 PM Reporting Lab: [facility] [address] [facility] [address] Performing Lab: [address] .VITAMIN E (ALPHA) 11.9 5.7-19.9 .VITAMIN E (B-GAMMA) <1.0 <=4.3 Oct 04, 2021 03:59 PM [facility] B 12 Specim en Type: SERUM No comment enter ed. Ordering Provid er: VIPUL CRANE Report Released Date/Time: Oct 04, 2021 02:12 PM Reporting Lab: [facility] [address] [facility] [address] Performing Lab: [facility] [address] [facility] [address] B 12 [phone] Oct 04, 2021 03:59 PM [facility] FOLATE Specim en Type: SERUM No comment enter ed. Ordering Provid er: VIPUL CRANE Report Released Date/Time: Oct 04, 2021 02:12 PM Reporting Lab: [facility] [address] [facility] [address] Performing Lab: [facility] [address] [facility] [address] FOLATE 17.7 >7.0 Oct 04, 2021 03:59 [facility] TSH W/REFLEX TO FREE Spec imen Type: PLASMA PM T4 No comment enter ed. Ordering Provid er: VIPUL CRANE Report Released Date/Time: Oct 04, 2021 02:12 PM Reporting Lab: [facility] [address] [facility] [address] Performing Lab: [facility] [address] [facility] [address] TSH 1.78 0.35-4.94 Oct 04, 2021 03:59 [facility] VIT D 25-[place],TOTAL Specime n Type: SERUM PM No comment enter ed. Ordering Provid er: VIPUL CRANE Report Released Date/Time: Oct 04, 2021 02:12 PM Reporting Lab: [facility] [address] [facility] [address] Performing Lab: [facility] [address] [facility] [address] VIT D 25-[place],TOTAL 79 H 12-50 Oct 04, 2021 03:59 PM [facility] HEMOGLOBIN A1C Specim en Type: BLOOD No comment enter ed. Ordering Provid er: VIPUL CRANE Report Released Date/Time: Oct 04, 2021 02:12 PM Reporting Lab: [facility] [address] [facility] [address] Performing Lab: [facility] [address] [facility] [address] HEMOGLOBIN A1C 7.1 H 4.0-6.0 Oct 04, 2021 03:59 PM [facility] CBC Specim en Type: BLOOD No comment enter ed. Ordering Provid er: VIPUL CRANE Report Released Date/Time: Oct 04, 2021 02:12 PM Reporting Lab: [facility] [address] [facility] [address] Performing Lab: [facility] [address] [facility] [address] WBC 8.98 4.0-11.0 RBC 4.19 L 4.6-6.2 HGB 12.1 L 13.5-17.9 HCT 36.4 L 41-54 MCV 86.9 80-100 MCH 28.9 27-33 MCHC 33.2 32.0-37.5 PLT 279 150-400 MPV 10.5 H 7.4-10.4 RDW 13.2 11.5-14.5 Oct 04, 2021 [facility] LIPID PANEL,NON-FASTING Spec imen Type: PLASMA 03:59 PM No comment enter ed. Ordering Provid er: VIPUL CRANE Report Released Date/Time: Oct 04, 2021 02:12 PM Reporting Lab: [facility] [address] [facility] [address] Performing Lab: [facility] [address] CHOLESTEROL 114 <199 .HDL 45 >40 LDL CALCULATION 55 <99 VLDL CALCULATION 14 <29 NON HDL CHOLESTEROL 69 <129 TRIG(NON FASTING) 69 <149 Oct 04, 2021 [facility] COMPREHENSIVE METABOLIC Spec imen Type: PLASMA 03:59 PM PANEL+MG No comment enter ed. Ordering Provid er: VIPUL CRANE Report Released Date/Time: Oct 04, 2021 02:12 PM Reporting Lab: [facility] [address] [facility] [address] Performing Lab: [facility] [address] [facility] [address] CREATININE 1.1 0.7-1.2 UREA NITROGEN 17 8-26 GLUCOSE 118 H 74-100 SODIUM 142 136-145 POTASSIUM 3.6 3.5-5.1 CHLORIDE 105 98-107 CO2 26 22-29 CALCIUM 9.3 8.4-10.2 PROTEIN,TOTAL 6.4 6.0-8.3 ALBUMIN 4.1 3.5-5.2 BILIRUBIN, TOTAL 0.6 0.2-1.2 MAGNESIUM 1.3 L 1.6-2.6 ANION GAP 11 5-15 ALKALINE PHOSPHATASE 119 40-150 ALT/SGPT 12 <55 AST/SGOT 15 <34 CREAT EGFR(CKD-EPI) 71 >60 Oct 04, 2021 [facility] MICROALBUMIN/CREATININE RATIO Specimen Type: URINE 03:53 PM URINE No comment enter ed. Ordering Provid er: VIPUL CRANE Report Released Date/Time: Oct 04, 2021 03:39 PM Reporting Lab: [facility] [address] [facility] [address] Performing Lab: [facility] [address] [facility] [address] CREATININE,UR RANDOM 117.0 58.0-161. 0 ALB/CREAT RATIO,UR 15.8 <29.9 MICROALBUMIN,UR 18.5 <29.9 Social History: Smoking Status (Most current) and Tobacco Use (All prior to encounter date) This section includes the most current, and the historical, smoking and tobacco-related health factors from the [facility] where the Encounter took place.Current Smoking Status This section includes the most current smoking, or tobacco-related health factor, from the [facility] where the Encounter took place. Date/Time Current Smoking Status Comment Facility Aug 21, 2021 01:00 PM [place]-TOB[place] FORMER USER [facility] Tobacco Use History This section includes a history of the smoking, or tobacco- related health factors, that were collected on or before the date of the Encounter. The data comes from the [facility] where the Encounter took place. Date/Time Smoking Status/Tobacco Use Comment [facility] Aug 21, 2021 01:00 PM VA-TOBACCO QUIT 15 YRS OR MORE [facility] Jul 09, 2018 08:58 AM VA-TOBACCO FORMER USER [facility] Jul 09, 2018 08:58 AM [place]-TOBACCO QUIT 15 YRS OR MORE [facility] Jul 18, 2017 09:58 AM FORMER TOBACCO USER 7Y OR GREATER [facility] Aug 14, 2016 10:59 AM FORMER TOBACCO USER 7Y OR GREATER [facility] Jun 29, 2015 02:03 PM FORMER TOBACCO USER 7Y OR GREATER [facility] Jan 06, 2014 03:04 PM FORMER TOBACCO USER 7Y OR GREATER [facility] Jan 04, 2012 08:36 AM FORMER TOBACCO USER 7Y OR GREATER [facility] Encounter Notes: All associated encounter notes This section contains the clinical notes associated to the Encounter. Date/Time Encounter Note(s) Provider Source Oct 11, 2021 10:28 AM REPORT OF CONTACT: NORMAN LUEVANO [facility] LOCAL TITLE: APPOINTMENT SCHEDULING NOTE STANDARD TITLE: REPORT OF CONTACT DATE OF NOTE: OCT 11, 2021@10:28 ENTRY DATE: OCT 11, 2021@10:28:08 AUTHOR: NORMAN LUEVANO EXP COSIGNER: URGENCY: STATUS: COMPLETED APPOINTMENT SCHEDULING NOTE Has ADDENDA Attempt to schedule return to clinic 1st Contact: Called Inman at: Sep Left message Phone number left for to call back: If calls back, schedule appointment for : [facility] 4F HEMOGLOBIN A1 C BLOOD SP ONCE LB #[id number] w/ shingle shot on 12/21 and then phone appointment after with an y APACT L provider. DOROTHY Cruz RES 03 WH PHONE Is the RTC marked as no later than? No /pablo/ NORMAN LUEVANO [facility] B[employer]ING FOLDER Signed: 10/11/2021 10:40 10/24/2021 ADDENDUM STATUS: COMPLETED Put in a phone appointment with any apact provid er /pablo/ NORMAN LUEVANO [employer] F[employer] Signed: 10/24/2021 13:05
--- OUTSIDE RECORDS SUMMARY | 2022-03-13 16:18 | XMS_ITS | Encounter Summary ---
:1945 Author Organization Department of [facility] rs Address [address] [place] [address] Support Name Relationship Address Phone SIRIA THOMPSON Unavailable [address], [place] [address] JANEY LOPEZ Unavailable [address] [place] [address] [facility], Unavailable [address] [facility] [place] [address] Insurance Providers: All historical and current Section [...] MEDICARE MEDICARE PART Sep 26, PART A [id number] DONNA ALMANZAR (WNR) (M) A 2012 [id number] [phone] JUAN LANDAVERDE MEDICARE MEDICARE PART Sep 26, PART B [id number] 800 DONNA ALMANZAR (WNR) (M) B 2012 [id number] [phone] JUAN LANDAVERDE Selected Encounter This section includes the information on record at [place] for the Encounter. Date/Time Encounter Type Encounter Description Reason Provider Source Aug 25, 2021 04:09 Outpatient PSYCHOGERIATRIC - PM Encounter INDIVIDUAL IHE Encounter Template Text not used by [place] Plan of Treatment: Future Appointments (+ 6 [...] 20 appointments. The data comes from all [facility]. Appointment Date/Time Appointment Type Appointment Facili ty Name Oct 04, 2021 02:00 PM AMBULATORY - MEDICINE [facility] Oct 18, 2021 01:00 PM AMBULATORY - PSYCHIATRY [facility] December 21, 2021 09:45 AM AMBULATORY - NONE [facility] December 21, 2021 11:15 AM AMBULATORY - MEDICINE [facility] Jan 17, 2022 11:00 AM AMBULATORY - MEDICINE [facility] Jan 17, 2022 12:30 PM AMBULATORY - NONE [facility] Feb 02, 2022 11:16 AM AMBULATORY - NONE [facility] Feb 09, 2022 01:00 PM AMBULATORY - SURGERY [facility] Active, Pending, and Scheduled Orders This section includes a listing of several types of active, pending, and scheduled orders, including clinic medications orders, diagnostic test orders, procedure orders and consult orders; where the start date of the order is 45 days before the date of the Encounter or 45 days after the date of the Encounter. The data comes from all [facility]. Test Date/Time Test Type Test Details Facility Name Oct 04, 2021 02:12 PM Laboratory - Chemistry MICROALBUMIN/CREATI N [facility] Order INE RATIO URINE URINE WC ONCE Social History: Smoking Status (Most current) and Tobacco Use (All prior to encounter date) This section includes the most current, and the historical, smoking and tobacco-related health factors from the [facility] where the Encounter took place.Current Smoking Status This section includes the most current smoking, or tobacco-related health factor, from the [place] facility where the Encounter took place. Date/Time Current Smoking Status Comment Facility Aug 21, 2021 01:00 PM VA-TOBACCO FORMER USER [facility] Tobacco Use History This section includes a history of the smoking, or tobacco- related health factors, that were collected on or before the date of the Encounter. The data comes from the [place] facility where the Encounter took place. Date/Time Smoking Status/Tobacco Use Comment [facility] Aug 21, 2021 01:00 PM VA-TOBACCO QUIT 15 YRS OR MORE [facility] Jul 09, 2018 08:58 AM VA-TOBACCO FORMER USER [facility] Jul 09, 2018 08:58 AM VA-TOBACCO QUIT 15 YRS OR MORE [facility] Jul 18, 2017 09:58 AM FORMER TOBACCO USER 7Y OR GREATER [facility] Aug 14, 2016 10:59 AM FORMER TOBACCO USER 7Y OR GREATER [facility] Jun 29, 2015 02:03 PM FORMER TOBACCO USER 7Y OR GREATER [facility] Jan 06, 2014 03:04 PM FORMER TOBACCO USER 7Y OR GREATER [facility] Jan 04, 2012 08:36 AM FORMER TOBACCO USER 7Y OR GREATER [facility] Encounter Notes: All associated encounter notes This section contains the clinical notes associated to the Encounter. Date/Time Encounter Note(s) Provider Source Aug 25, 2021 04:09 PM REPORT OF CONTACT: [facility] LOCAL TITLE: APPOINTMENT SCHEDULING NOTE STANDARD TITLE: REPORT OF CONTACT DATE OF NOTE: AUG 25, 2021@16:09 ENTRY DATE: AUG 25, 2021@16:09:43 AUTHOR: ELISE FERNÁNDEZ EXP COSIGNER: URGENCY: STATUS: COMPLETED Attempt to schedule return to clinic 1st Contact: Called [place] at: Left message Phone number left for to call back: 2nd Contact: Sent letter by regular [place] mail to address on [address] JUAN Mulligan JR [address] [address] If [place] calls back, schedule appointment for: rtc 10/02/2021 yves bueno f2f 60 Is the RTC marked as no later than? Malinda /pablo/ ELISE FERNÁNDEZ Se[employer] Signed: 08/25/2021 16:10
--- OUTSIDE RECORDS SUMMARY | 2022-03-13 16:18 | XMS_ITS | Encounter Summary ---
:1945 Author Organization Department of [facility] rs Address [address] [place] [address] Support Name Relationship Address Phone SIRIA THOMPSON Unavailable [address] [place] [address] JANEY LOPEZ Unavailable [address] [place] [address] [facility], Unavailable [address] [facility] [place] [place] [address] Insurance Providers: All historical and current Section [...] MEDICARE MEDICARE PART Sep 26, PART A [id number] 800 DONNA HUANG YOHAN (WNR) (M) A 2012 [id number] [phone] JUAN MEDICARE MEDICARE PART Sep 26, PART B [id number] 800 DONNAAMARILIS ALMANZAR (WNR) (M) B 2012 [id number] [phone] JUAN Selected Encounter This section includes the information on record at [place] for the Encounter. Date/Time Encounter Type Encounter Description Reason Provider Source Oct 11, 2021 05:34 Outpatient Encounter TELEPHONE TRIAGE PM IHE Encounter Template Text not used by [place] Plan of Treatment: Future Appointments (+ 6 [...] 20 appointments. The data comes from all [facility]. Appointment Date/Time Appointment Type Appointment Facili ty Name Oct 18, 2021 01:00 PM AMBULATORY - PSYCHIATRY [facility] December 21, 2021 09:45 AM AMBULATORY - NONE [facility] December 21, 2021 11:15 AM AMBULATORY - MEDICINE [facility] Jan 17, 2022 11:00 AM AMBULATORY - MEDICINE [facility] Jan 17, 2022 12:30 PM AMBULATORY - NONE [facility] Feb 02, 2022 11:16 AM AMBULATORY - NONE [facility] Feb 09, 2022 01:00 PM AMBULATORY - SURGERY [facility] Apr 11, 2022 11:00 AM AMBULATORY - MEDICINE [facility] Active, Pending, and Scheduled Orders This section includes a listing of several types of active, pending, and scheduled orders, including clinic medications orders, diagnostic test orders, procedure orders and consult orders; where the start date of the order is 45 days before the date of the Encounter or 45 days after the date of the Encounter. The data comes from all [facility]. Test Date/Time Test Type Test Details Facility Name Oct 04, 2021 02:12 PM Laboratory - Chemistry MICROALBUMIN/CREATI N [facility] Order INE RATIO URINE URINE WC [...] Range Comment Oct 04, 2021 03:59 PM [facility] VITAMIN E Specim en Type: SERUM Comment: Levels of alpha-tocopherol <5 mg/L are consistent with Vitamin E deficiency in adults. Vitamin supplementation within 24 hours prior to blood draw may affect the accuracy of the results. Th is test was rocael cisneros and its analytical performance characteristics have been determined by [employer] [place], [place]. It has not been cleared or approved by the U.S. Food and D rug Administrati on. This assay has been validated pursuant to the CLIA regulations and is used for clinical purposes. Test Performed by Jose Louie, [facility], [address] [place], [place] Devante Meyer M.D., Ph.D., Director of Laboratories , CLIA [id number] Ordering Provid er: VIPUL CRANE Report Released Date/Time: Oct 04, 2021 02:12 PM Reporting Lab: [facility] [address] [facility] [address] Performing Lab: [address] .VITAMIN E (ALPHA) 11.9 5.7-19.9 .VITAMIN E (B-GAMMA) <1.0 <=4.3 Oct 04, 2021 03:59 PM [facility] VITAMIN A Specim en Type: SERUM Comment: Vitami n supplementation within 24 hours prior to blood draw may affect the accuracy of the results. This test was developed and its analytical performance characteristics have been determined by [employer] [facility] [place], [place]. It has not been cleared or approved by the U.S. Food and Drug Administration. This assay has been validated pursuant to the CLIA regulations and is used for clinica l purposes. Test Performed by [facility], [facility], [address] [place] [address] Devante Meyer M.D., Ph.D., Director of Laboratories , CLIA [id number] Ordering Provid er: VIPUL CRANE Report Released Date/Time: Oct 04, 2021 02:12 PM Reporting Lab: [facility] [address] [facility] [address] Performing Lab: [address] VITAMIN A 60 38-98 Oct 04, 2021 03:59 PM [facility] B 12 Specim en Type: SERUM No comment enter ed. Ordering Provid er: VIPUL CRANE Report Released Date/Time: Oct 04, 2021 02:12 PM Reporting Lab: [facility] [address] [facility] [address] Performing Lab: [facility] [address] [facility] [address] B 12 [phone] Oct 04, 2021 03:59 PM [facility] FOLATE Specim en Type: SERUM No comment enter ed. Ordering Provid er: VIPUL CRANE Report Released Date/Time: Oct 04, 2021 02:12 PM Reporting Lab: [facility] [address] [facility] [address] Performing Lab: [facility] [address] [facility] [address] FOLATE 17.7 >7.0 Oct 04, 2021 03:59 [facility] TSH W/REFLEX TO FREE Spec imen Type: PLASMA PM T4 No comment enter ed. Ordering Provid er: VIPUL CRANE Report Released Date/Time: Oct 04, 2021 02:12 PM Reporting Lab: [facility] [address] [facility] [address] Performing Lab: [facility] [address] [facility] [address] TSH 1.78 0.35-4.94 Oct 04, 2021 03:59 [facility] VIT D 25-OH,TOTAL Specime n Type: SERUM PM No comment enter ed. Ordering Provid er: VIPUL CRANE Report Released Date/Time: Oct 04, 2021 02:12 PM Reporting Lab: [facility] [address] [facility] [address] Performing Lab: [facility] [address] [facility] [address] VIT D 25-OH,TOTAL 79 H 12-50 Oct 04, 2021 03:59 PM [facility] HEMOGLOBIN A1C Specim en Type: BLOOD No comment enter ed. Ordering Provid er: VIPUL CRANE Report Released Date/Time: Oct 04, 2021 02:12 PM Reporting Lab: [facility] [address] [facility] [address] Performing Lab: [facility] [address] [facility] [address] HEMOGLOBIN A1C 7.1 H 4.0-6.0 Oct 04, 2021 [facility] LIPID PANEL,NON-FASTING Spec imen Type: PLASMA 03:59 PM No comment enter ed. Ordering Provid er: VIPUL CRANE Report Released Date/Time: Oct 04, 2021 02:12 PM Reporting Lab: [facility] [address] [facility] [address] Performing Lab: [facility] [address] [facility] [address] CHOLESTEROL 114 <199 .HDL 45 >40 LDL CALCULATION 55 <99 VLDL CALCULATION 14 <29 NON HDL CHOLESTEROL 69 <129 TRIG(NON FASTING) 69 <149 Oct 04, 2021 03:59 PM [facility] CBC Specim en Type: BLOOD No comment enter ed. Ordering Provid er: VIPUL CRANE Report Released Date/Time: Oct 04, 2021 02:12 PM Reporting Lab: [facility] [address] [facility] [address] Performing Lab: [facility] [address] [facility] [address] WBC 8.98 4.0-11.0 RBC 4.19 L 4.6-6.2 HGB 12.1 L 13.5-17.9 HCT 36.4 L 41-54 MCV 86.9 80-100 MCH 28.9 27-33 MCHC 33.2 32.0-37.5 PLT 279 150-400 MPV 10.5 H 7.4-10.4 RDW 13.2 11.5-14.5 Oct 04, 2021 [facility] COMPREHENSIVE METABOLIC Spec imen Type: PLASMA 03:59 PM PANEL+MG No comment enter ed. Ordering Provid er: VIPUL CRANE Report Released Date/Time: Oct 04, 2021 02:12 PM Reporting Lab: [facility] [address] [facility] [address] Performing Lab: [facility] [address] CREATININE 1.1 0.7-1.2 UREA NITROGEN 17 8-26 GLUCOSE 118 H 74-100 SODIUM 142 136-145 POTASSIUM 3.6 3.5-5.1 CHLORIDE 105 98-107 CO2 26 22-29 CALCIUM 9.3 8.4-10.2 PROTEIN,TOTAL 6.4 6.0-8.3 ALBUMIN 4.1 3.5-5.2 BILIRUBIN, TOTAL 0.6 0.2-1.2 MAGNESIUM 1.3 L 1.6-2.6 ANION GAP 11 5-15 ALKALINE PHOSPHATASE 119 40-150 ALT/SGPT 12 <55 AST/SGOT 15 <34 CREAT EGFR(CKD-EPI) 71 >60 Oct 04, 2021 [facility] MICROALBUMIN/CREATININE RATIO Specimen Type: URINE 03:53 PM URINE No comment enter ed. Ordering Provid er: VIPUL CRANE Report Released Date/Time: Oct 04, 2021 03:39 PM Reporting Lab: [facility] [address] [facility] [address] Performing Lab: [facility] [address] [facility] [address] CREATININE,UR RANDOM 117.0 58.0-161. 0 ALB/CREAT RATIO,UR 15.8 <29.9 MICROALBUMIN,UR 18.5 <29.9 Social History: Smoking Status (Most current) and Tobacco Use (All prior to encounter date) This section includes the most current, and the historical, smoking and tobacco-related health factors from the [facility] where the Encounter took place.Current Smoking Status This section includes the most current smoking, or tobacco-related health factor, from the [facility] where the Encounter took place. Date/Time Current Smoking Status Comment Facility Aug 21, 2021 01:00 PM [place]-TOBACCO FORMER USER [facility] Tobacco Use History This section includes a history of the smoking, or tobacco- related health factors, that were collected on or before the date of the Encounter. The data comes from the [facility] where the Encounter took place. Date/Time Smoking Status/Tobacco Use Comment Facil it Aug 21, 2021 01:00 PM VA-TOBACCO QUIT 15 YRS OR MORE [facility] Jul 09, 2018 08:58 AM VA-TOBACCO FORMER USER [facility] Jul 09, 2018 08:58 AM [place]-TOBACCO QUIT 15 YRS OR MORE [facility] [...] TOBACCO USER 7Y OR GREATER [facility] Encounter Notes: All associated encounter notes This section contains the clinical notes associated to the Encounter. Date/Time Encounter Note(s) Provider Source Oct 11, 2021 05:34 PM REPORT OF CONTACT: JAMES COCHRAN [facility] LOCAL TITLE: PATIENT CONTACT NOTE STANDARD TITLE: REPORT OF CONTACT DATE OF NOTE: OCT 11, 2021@17:34 ENTRY DATE: OCT 11, 2021@17:34:44 AUTHOR: JAMES COCHRAN EXP COSIGNER: URGENCY: STATUS: COMPLETED PATIENT CONTACT NOTE Has [facility] requests to schedule the following order as an in-clinic appointment. He is requesting a return call. Return to [facility] RES 03 WH PHONE on or arou nd ( Jan 10, 2022 ) Prerequisites: prefers recall reminder, will not schedule RTC today DM check (recently switched from 70/30 to lantus ). 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
--- OUTSIDE RECORDS SUMMARY | 2022-03-13 16:18 | XMS_ITS | Encounter Summary ---
:1945 Author Organization Department of [facility] rs Address [address] [place] [address] Support Name Relationship Address Phone SIRIA THOMPSON Unavailable [address], [place] [address] JANEY LOPEZ Unavailable [address] [place] [address] [facility], Unavailable [address] [facility] [place] [address] Insurance Providers: All historical and current [...] MEDICARE MEDICARE PART Sep 26, PART A [id number] DONNA ALMANZAR (WNR) (M) A 2012 [id number] [phone] JUAN LANDAVERDE MEDICARE MEDICARE PART Sep 26, PART B [id number] DONNA ALMANZAR (WNR) (M) B 2012 [id number] [phone] JUAN LANDAVERDE Selected Encounter This section includes the information on record at [facility] for the Encounter. Date/Time Encounter Type Encounter Reason Provider Source Description Oct 04, 2021 OFFICE O/P NEW PRIMARY ICD-10-CM I10 ALFONSO LOPEZ 02:00 PM HI 60-74 MIN CARE/MEDICINE Essential ER F (primary) hypertension with Provider Comments: Essential hypertension ([facility] [id number]) IHE Encounter Template Text not used by [facility] Assessments - Encounter Diagnoses This section includes the primary and secondary diagnoses documented for the Encounter. Date/Time Primary/Secondary Diagnosis Name Provider Source Diagnosis Oct 04, 2021 PRIMARY Essential JON CRANE [facility] 03:53 PM (primary) Y J [facility] hypertension Oct 04, 2021 SECONDARY Asymptomatic JON CRANE [facility] 03:53 PM varicose veins of Y J HCS bilateral lower extremities Oct 04, 2021 SECONDARY Bipolar II JON CRANE [facility] 03:53 PM disorder Y J [facility] Oct 04, 2021 SECONDARY Bronchiectasis, JON CRANE [facility] 03:53 PM uncomplicated Y J HCS Oct 04, 2021 SECONDARY Encounter for SUSAN MEIER [place] L[place] A 03:53 PM immunization EMILY RUBY Oct 04, 2021 SECONDARY Generalized JON CRANE [facility] 03:53 PM anxiety disorder Y J [facility] Oct 04, 2021 SECONDARY Major depressive [facility] 03:53 PM disorder, Y J [facility] recurrent, moderate Oct 04, 2021 SECONDARY Mild cognitive JON CRANE [facility] 03:53 PM impairment, so Y J [facility] stated Oct 04, 2021 SECONDARY Other age-related [facility]ON [facility]ANE [facility] 03:53 PM cataract [facility] Oct 04, 2021 SECONDARY Type 2 diabetes JON CRANE [place] 03:53 PM mellitus with Y J TUNG unspecified complications Oct 04, 2021 SECONDARY Unspecified atrial JON CRANE [facility] 03:53 PM fibrillation Y J [facility] Plan of Treatment: Future Appointments (+ 6 months) and Future Tests (+/- 45 days) The Plan of Treatment section includes future care activities for the patient from all SD treatmentfaformerly [facility] du[facility]in hospitalities. This section includes future appointments and future orders which are active, pending orscheduled.Future Appointments This section includes appointments that were scheduled to occur 6 months from the date of the Encounter, up to a maximum of 20 appointments. The data comes from all SD treatment facilities. Appointment Date/Time Appointment Type Appointment Facili ty Name Oct 18, 2021 01:00 PM AMBULATORY - PSYCHIATRY [facility] December 21, 2021 09:45 AM AMBULATORY - NONE [facility] December 21, 2021 11:15 AM AMBULATORY - MEDICINE [facility] Jan 17, 2022 11:00 AM AMBULATORY - MEDICINE [facility] Jan 17, 2022 12:30 PM AMBULATORY - NONE [facility] Feb 02, 2022 11:16 AM AMBULATORY - NONE [facility] Feb 09, 2022 01:00 PM AMBULATORY - SURGERY [facility] S Active, Pending, and Scheduled [...] the Encounter. The data comes from all [place] treatment facilities. Test Date/Time Test Type Test Details Facility Name Oct 04, 2021 02:12 PM Laboratory - Chemistry MICROALBUMIN/CREATI N [facility] Order INE RATIO URINE URINE WC ONCE Lab Results: +/- 30 days of the encounter This section includes the Chemistry and Hematology Lab Results on record with SD for the patient. Radiology Reports and Pathology Reports are provided separately, in subsequent sections.Lab Results This section contains the Chemistry/Hematology Results that were resulted 30 days before or 30 daysafter the date of the Encounter. Date/Time Source Result Type Result - Unit Interpretation Reference Range Comment Oct 04, 2021 03:59 PM [facility] VITAMIN A Specim en Type: SERUM Comment: Vitami n supplementation within 24 hours prior to blood draw may affect the accuracy of the results. This test was developed and its analytical performance characteristics have been determined by [employer] [facility] [place], [place]. It has not been cleared or approved by the U.S. Food and Drug Administration. This assay has been validated pursuant to the CLIA regulations and is used for clinica l purposes. Test Performed by [facility], [facility], [address] [place] [address] Devante Meyer M.D., Ph.D., Director of Laboratories , CLIA [id number] Ordering Provid er: VIPUL CRANE Report Released Date/Time: Oct 04, 2021 02:12 PM Reporting Lab: [facility] [address] [facility] [address] Performing Lab: [address] VITAMIN A 60 38-98 Oct 04, 2021 03:59 PM [facility] VITAMIN E Specim en Type: SERUM Comment: Levels of alpha-tocopherol <5 mg/L are consistent with Vitamin E deficiency in adults. Vitamin supplementation within 24 hours prior to blood draw may affect the accuracy of the results. Th is test was rocael cisneros and its analytical performance characteristics have been determined by [employer] [place], [place]. It has not been cleared or approved by the U.S. Food and D rug Administrati on. This assay has been validated pursuant to the CLIA regulations and is used for clinical purposes. Test Performed by [facility], [employer] [facility], [address] [place], [place] Devante Meyer M.D., Ph.D., Director of Laboratories , CLIA [id number] Ordering Provid er: VIPUL CRANE Report Released Date/Time: Oct 04, 2021 02:12 PM Reporting Lab: [facility] [address] [facility] [address] Performing Lab: [facility] [address] [facility] .VITAMIN E (ALPHA) 11.9 5.7-19.9 .VITAMIN E (B-GAMMA) <1.0 <=4.3 Oct 04, 2021 03:59 PM [facility] B 12 Specim en Type: SERUM No comment enter ed. Ordering Provid er: VIPUL CRANE Report Released Date/Time: Oct 04, 2021 02:12 PM Reporting Lab: [facility] [address] [facility] [address] Performing Lab: [facility] [address] [facility] [address] B 12 [phone] Oct 04, 2021 03:59 PM [facility] FOLATE Specim en Type: SERUM No comment enter ed. Ordering Provid er: VIUPL CRANE Report Released Date/Time: Oct 04, 2021 02:12 PM Reporting Lab: [facility] [address] [facility] [address] Performing Lab: [facility] [address] [facility] [address] FOLATE 17.7 >7.0 Oct 04, 2021 03:59 [facility] TSH W/REFLEX TO FREE Spec imen Type: PLASMA PM T4 No comment enter ed. Ordering Provid er: VIPUL CRANE Report Released Date/Time: Oct 04, 2021 02:12 PM Reporting Lab: [facility] [address] [facility] [address] Performing Lab: [facility] [address] [facility] [address] TSH 1.78 0.35-4.94 Oct 04, 2021 03:59 [facility] VIT D 25-OH,TOTAL Specime n Type: SERUM PM No comment enter ed. Ordering Provid er: VIPUL CRANE Report Released Date/Time: Oct 04, 2021 02:12 PM Reporting Lab: [facility] [address] Performing Lab: [facility] [address] [facility] [address] VIT D 25-OH,TOTAL 79 H 12-50 Oct 04, 2021 03:59 PM [facility] HEMOGLOBIN A1C Specim en Type: BLOOD No comment enter ed. Ordering Provid er: VIPUL CRANE Report Released Date/Time: Oct 04, 2021 02:12 PM Reporting Lab: [facility] [address] Performing Lab: [facility] [address] HEMOGLOBIN A1C 7.1 H 4.0-6.0 Oct 04, 2021 [facility] LIPID PANEL,NON-FASTING Spec imen Type: PLASMA 03:59 PM No comment enter ed. Ordering Provid er: VIPUL CRANE Report Released Date/Time: Oct 04, 2021 02:12 PM Reporting Lab: [facility] [address] Performing Lab: [facility] [address] CHOLESTEROL 114 <199 .HDL 45 >40 LDL CALCULATION 55 <99 VLDL CALCULATION 14 <29 NON HDL CHOLESTEROL 69 <129 TRIG(NON FASTING) 69 <149 Oct 04, 2021 03:59 PM [facility] CBC Specim en Type: BLOOD No comment enter ed. Ordering Provid er: VIPUL CRANE Report Released Date/Time: Oct 04, 2021 02:12 PM Reporting Lab: [facility] [address] Performing Lab: [facility] [address] WBC 8.98 4.0-11.0 RBC 4.19 L 4.6-6.2 HGB 12.1 L 13.5-17.9 HCT 36.4 L 41-54 MCV 86.9 80-100 MCH 28.9 27-33 MCHC 33.2 32.0-37.5 PLT 279 150-400 MPV 10.5 H 7.4-10.4 RDW 13.2 11.5-14.5 Oct 04, 2021 [facility] COMPREHENSIVE METABOLIC Spec imen Type: PLASMA 03:59 PM PANEL+MG No comment enter ed. Ordering Provid er: VIPUL CRANE Report Released Date/Time: Oct 04, 2021 02:12 PM Reporting Lab: [facility] [address] Performing Lab: [facility] [address] CREATININE 1.1 0.7-1.2 UREA NITROGEN 17 8-26 GLUCOSE 118 H 74-100 SODIUM 142 136-145 POTASSIUM 3.6 3.5-5.1 CHLORIDE 105 98-107 CO2 26 22-29 CALCIUM 9.3 8.4-10.2 PROTEIN,TOTAL 6.4 6.0-8.3 ALBUMIN 4.1 3.5-5.2 BILIRUBIN, TOTAL 0.6 0.2-1.2 MAGNESIUM 1.3 L 1.6-2.6 ANION GAP 11 5-15 ALKALINE PHOSPHATASE 119 40-150 ALT/SGPT 12 <55 AST/SGOT 15 <34 CREAT EGFR(CKD-EPI) 71 >60 Oct 04, 2021 [facility] MICROALBUMIN/CREATININE RATIO Specimen Type: URINE 03:53 PM URINE No comment enter ed. Ordering Provid er: VIPUL CRANE Report Released Date/Time: Oct 04, 2021 03:39 PM Reporting Lab: [facility] [address] Performing Lab: [facility] [address] CREATININE,UR RANDOM 117.0 58.0-161. 0 ALB/CREAT RATIO,UR 15.8 <29.9 MICROALBUMIN,UR 18.5 <29.9 Vital Signs: All taken on the encounter date This section contains inpatient and outpatient Vital Signs collected on the date of the Encounter. Date/Time Temperature Pulse Blood Respiratory SP02 Pain Height Weight Alex dy Source Pressure Rate Mass Index Oct 04 138/84 14 /min 99 % 5 68 in 218 lb 33 [place] 2021 02:10 /min mm[Hg] IS [facility] Immunizations: All administered on the encounter date This section contains immunizations associated to the Encounter. Immunization Series Date Issued Reaction Comments ZOSTER RECOMBINANT 1 Oct 04, 2021 Social History: Smoking Status (Most current) and Tobacco Use (All prior to encounter date) This section includes the most current, and the historical, smoking and tobacco-related health factors from the [facility] where the Encounter took place.Current Smoking Status This section includes the most current smoking, or tobacco-related health factor, from the [place] facility where the Encounter took place. Date/Time Current Smoking Status Comment Facility Aug 21, 2021 01:00 PM VA-TOBACCO FORMER USER [facility] Tobacco Use History This section includes a history of the smoking, or tobacco- related health factors, that were collected on or before the date of the Encounter. The data comes from the [place] facility where the Encounter took place. Date/Time Smoking Status/Tobacco Use Comment [facility] Aug 21, 2021 01:00 PM VA-TOBACCO QUIT 15 YRS OR MORE [facility] Jul 09, 2018 08:58 AM VA-TOBACCO FORMER USER [facility] Jul 09, 2018 08:58 AM VA-TOBACCO QUIT 15 YRS OR MORE [facility] Jul 18, 2017 09:58 AM FORMER TOBACCO USER 7Y OR GREATER [facility] Aug 14, 2016 10:59 AM FORMER TOBACCO USER 7Y OR GREATER [facility] Jun 29, 2015 02:03 PM FORMER TOBACCO USER 7Y OR GREATER [facility] Jan 06, 2014 03:04 PM FORMER TOBACCO USER 7Y OR GREATER [facility] Jan 04, 2012 08:36 AM FORMER TOBACCO USER 7Y OR GREATER [facility] Encounter Notes: All associated encounter notes This section contains the clinical notes associated to the Encounter. Date/Time Encounter Note(s) Provider Source Oct 05, 2021 12:40 PM LETTERS: VIPUL CRANE IS [facility] LOCAL TITLE: FOLLOW UP RESULTS LETTER STANDARD TITLE: LETTERS DATE OF NOTE: OCT 05, 2021@12:40 ENTRY DATE: OCT 05, 2021@12:40:17 AUTHOR: VIPUL CRANE EXP COSIGNER: URGENCY: STATUS: COMPLETED [facility] [address] [place] [address] Sep JUAN THOMPSON [address] [facility] [address] Dear : I am writing to inform you of the results of wolfgang ting that you had done recently at the [facility]. - Cholesterol Tests (HDL = good and LDL = bad ) CHOLESTEROL 114 (10/04/21) (prefer less than 20 0) HDL 45 (10/04/21) (prefer more than 39) LDL CALCULATION 55 (10/04/21) (prefer less than 100) MEASURED LDL____ (prefer less than 100) TRIGLYCERIDE____ (prefer less than 150) - Complete Blood Count (red/white blood cell cou nts and platelets) White count: WBC 8.98 (10/04/21) (normal is 4.0 -11.0) Hemoglobin: HGB 12.1 L (10/04/21) (normal Male is 13.5-17.9; Female is 11.5-16) Hematocrit: HCT 36.4 L (10/04/21) (normal Male is 41-54; Female is 34.5-48) Platelets: PLT 279 (10/04/21) (normal is 150-40 0) - Electrolytes including sodium and potassium SODIUM 142 (10/04/21) (normal is 136-145) POTASSIUM 3.6 (10/04/21) (normal is 3.5-5.1) - Calcium CALCIUM 9.3 (10/04/21) (normal is 8.5-10.1) - Kidney function CREATININE 1.1 (10/04/21)(normal Male = less th an 1.2; normal Female = less than 1.0)) UREA NITROGEN 17 (10/04/21) (normal Male is 8-2 6; normal Female is 10- 20) - Blood Sugar GLUCOSE 118 H (10/04/21) (normal is 74 - 106 if fasting) - Liver function Tests AST/SGOT 15 (10/04/21) (normal 15-37) ALT/SGPT 12 (10/04/21) (normal 13-61) ALK PHOSPHATASE 119 (10/04/21) (normal 45-117) BILIRUBIN, TOTAL 0.6 (10/04/21) (normal 0.2-1.0 ) - Hemoglobin A1C (normal 4.0-6.0) Collection DT Spec HGBA1C 10/04/2021 15:59 BLOOD 7.1 H 04/23/2019 09:03 BLOOD 7.0 H 10/27/2018 08:51 BLOOD 7.2 H - Thyroid Function: TSH 1.78 (10/04/21) (normal 0.3-5.0) - Albumin/Creatinine Ratio: (test for protein in urine) (prefer less than 30) Collection DT Specimen Test Name Result Units R ef Range 10/04/2021 15:53 URINE ALB/CREAT RATIO,U 15.8 m g/g creat Ref: <=29.9 Additional Comments: Labs look great. Recently switched you insulin r egimen to Lantus. Please stop using the Novolog 70/30. You will have a phone v isit in 3 months with a repeat A1c to make sure you stay under control. Lantus pen with needles should have been mailed out to you. If you have any further questions or problems, heriberto tolentino contact our nursing staff or provider at the following number: [phone]. Sincerely, VIPUL CRANE MD RESIDENT Oct 04, 2021 02:12 PM INTERNAL MEDICINE OUTPATIENT NOTE: JYOTSNA BREWER [facility] LOCAL TITLE: MEDICINE CLINIC NURSING NOTE STANDARD TITLE: INTERNAL MEDICINE OUTPATIENT NOT E DATE OF NOTE: OCT 04, 2021@14:12 ENTRY DATE: OCT 04, 2021@14:12:30 AUTHOR: JYOTSNA MEIER EXP COSIGNER: URGENCY: STATUS: COMPLETED MEDICINE CLINIC NURSING NOTE Has ADDENDA * TYPE OF VISIT: Appointment Check In Type of appointment: In-person appointment REASON FOR VISIT: Establish care. ALLERGIES: Patient has answered NKA VITAL SIGNS: Blood Pressure: 138/84 (10/04/2021 14:10) Pulse: 89 (10/04/2021 14:10) Respiration: 14 (10/04/2021 14:10) Temperature: 98.7 F [37.1 C] (05/13/2020 08:28) Weight: 218 lb [99.1 kg] (10/04/2021 14:10) Height: 68 in [172.7 cm] (10/04/2021 14:10) BMI: 33.2 O2 Sat: 99% (10/04/2021 14:10) Pain: 5 (10/04/2021 14:10) PAIN SCREEN: Patient is not having significant pain that the y wish to discuss with their provider today. MEDICATION Over the Counter/Herbal Medications: The patient states that they take some outside medications and/or herbals. Depression Screening: Perform PHQ-2 A PHQ-2 screen was performed. The score was 0 w hich is a negative screen for depression. Over the past two weeks, how often have you bee n bothered by the following problems? 1. Little interest or pleasure in doing things Not at all 2. Feeling down, depressed, or hopeless Not at all Influenza Immunization: The patient has received the seasonal influenza vaccine for the current season at another location. Date: May 19, 2021 Location: [facility] Herpes Zoster (Shingles) Vaccine: The patient received recombinant zoster vaccine (RZV) 0.5 ml IM in Right deltoid. Delivery Engineer: [employer] Lot#s and Expiration Date: A725Y, EX 12/25/22, H2TB4, EX 12/25/22 Administered by protocol/policy Complications: None COVID-19 Immunization: Moderna COVID-19 Vaccine given previously Patient received a prior dose of the Moderna CO VID-19 Vaccine. Date: July 20, 2021 Series: Series 3 Location: [facility] /aneesh MEIER LPN STAFF TOAN Signed: 10/04/2021 14:25 10/04/2021 ADDENDUM STATUS: COMPLETED EDUCATION: PARTICIPANT(s): Patient Clean Catch Urine Instructed in collection of clean catch urine. Printed instructions provided and participant(s) is able to repeat t hese instructions accurately. Albumin/Creatinine urine sent to [facility] /aneesh MEIER LPN STAFF BONE CHAR OPERATOR Signed: 10/04/2021 15:42 Oct 04, 2021 08:46 AM INTERNAL MEDICINE NOTE: VIPUL CRANE [facility] LOCAL TITLE: MEDICINE CLINIC NOTE STANDARD TITLE: INTERNAL MEDICINE NOTE DATE OF NOTE: OCT 04, 2021@08:46 ENTRY DATE: OCT 04, 2021@08:47 AUTHOR: VIPUL CRANE COSIGNER: URGENCY: STATUS: COMPLETED MEDICINE CLINIC NOTE Has ADDENDA JUAN THOMPSON is a 75 year old MALE wit h the following chief complaint: Nurse's Note Reviewed. Follow up for reestablish care HPI/ROS: Mr. Thompson is a 75 yo male with a PMHx of HTN, DM2, Morbid Obesity, MDD, STEPHANIE, Bipolar, GERD, A.Fib, bronchiectasis, Gastric By pass 2002, mid cognitive disorder who is present to reestablish care at the [facility]. Patient was last seen by Dr. Hoffman in 2019. He was recently in [facility] [place] [facility] for 9 months but was discharged in July of 2021. Prior he was hospitalized in October/November of 2020 for severe hyp erglycemia, dehydraiton and delirium. He was being follo wed by [facility]. Since then he had moved back to independent living in [place], [place]. Patient currently have a legal guardianship Janey Lopez. 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 Patient denies any fevers, chills, CP, BM or urinary changes. Patient would get intermittent abdominal pain/burning but not at this time. Past medical history/Active Problems: Active problems - Computerized Problem List is t he source for the followin. Essential hypertension (SNOMED CT [id number]) 2. Depressive Disorder NEC 3. Anxiety Disorder * 4. Primary Obesity 5. Bronchiectasis without Acute Exacerbation 6. Gastroesophageal Reflux Disorder * 7. Bariatric Surgery Status 9. Cataract nos 10. Hypermetropia/Hyperopia 11. Astigmatism, Unspec 12. Presbyopia 13. Atrial fibrillation (SNOMED CT [id number]) 14. Varicose veins of lower extremity 15. Compulsive gambling 16. Bipolar II disorder, mos t recent episode rapid cycling (SNOMED CT 3984649013 17. Mild cognitive disorder 18. Type 2 diabetes mellitus Allergies: Patient has answered NKA Active Outpatient Medications (excluding Supplie s): Outpatient Medications Status 1) QUETIAPINE FUMARATE 25MG TAB TAKE ONE TO THRE E TABS ACTIVE BY MOUTH AT BEDTIME FOR SLEEP MEDICATION RECONCILIATION Outpatient At this visit I have reviewed the medication li st, and discussed relevant medications with the patient/surrogate . An updated patient medication list was given to the participant(s). (X) No Change () Change/New: I have noted this on the patient 's copy of the medication list. EXAM: Blood Pressure: 138/84 (10/04/2021 14:10) Pulse: 89 (10/04/2021 14:10) Respiration: 14 (10/04/2021 14:10) Temperature: 98.7 F [37.1 C] (05/13/2020 08:28) Weight: 218 lb [99.1 kg] (10/04/2021 14:10) Height: 68 in [172.7 cm] (10/04/2021 14:10) BMI: 33.2 O2 Sat: 99% (10/04/2021 14:10) Pain: 5 (10/04/2021 14:10) General: NAD HEENT: NC/AT, EOMI, no scleral icterus Lungs: CTAB CV: Irregularly irregular Abdomen: soft, ND, NT. No gu arding or rebound. Scar in the center of the abdomen Extremities: wwp, b/l peripehral edema Neuro: A&Ox3. Moving all extremities. Sensation decreased Data/Labs: LAB RESULTS LAST 48 HRS - NONE FOUND Assessment and Plan: # A Fib (CHADVASC 5) # HTN BP today was 138/84. BP controlled. - cont metoprolol - cont apixaban - Anticoag clinic referral to follow up # Bipolar II # MDD - recurrent # STEPHANIE Unclear what his current psy ch regimen is. Has had a history of suicide attempt. Will leave it up to to continue to manage. No SI or HI today. - cont psych meds per - F/u with Dr. Singer Per records in clinc patient is on: - Abilify 15 mg 1 tablet once a day - Venlafaxine 150 mg 1 tablet one a day - Wellbutrin 150 mg 1 tablet by mouth once a day - Recently started on Seroquel by # Bronchiectasis No recent exacerbation. Did have PFT back in [facility] t showed possible obstructive pattern though reader was unclear. No on any inh jamie. - Stopped Symbicort - CTM - albuterol PRN # DMII Last A1c at [facility] was 7.0 in . Unclear medication patient is supposed to be on for diabetes. Previously on metformin 1000 mg BI D and Lantus 25u QD. Patient currently on Novolog 70/30 4 units AM 20 units lunch and 4 units PM, metformin SA 1000 mg BID - Recheck A1c - Diabetic Nephropathy: Will order microalbumin - Diabetic Neuropathy/Foot E xam: decreasion sensation with intermittent tingling September 2021 - Diabetic Retinopathy: Needs to call eye clinic for appt # Mild to Moderate Neurocognitive Disorder # Chronic Small Vessel Ischemia - cont atorvastatin - On anticoagulation # Hx of Gastric Bypass Patient had Rou-en-Y done in early . Patient had been taking supplements. Unclear if he is still on it and if he has any d eficiencies. - Recheck B12, folate, Vit A, E and D, electroly wolfgang #RHM - C-scope: normal in 2017. No further scopes d/t aging out - AAA: 2016 normal - COVID booster at [facility] - Shingles today; 2nd dose 2-6 months Patient staffed with Dr. Lopez Education on Treatment Plan: Patient indicates readiness [...] s under the med tab as appropriate. Diabetic Foot Exam - Complete: A complete foot exam was completed at this visi t with the following findings: Visual Inspection: Normal Pedal pulses: Normal/Present -SENSORY EXAM: Abnormal/Decreased or absent sensation to monof ilament The following risk level was identified for herberth varghese patient: RISK LEVEL SCORE: --LEVEL 2 - (MODERATE RISK) No Level 3 red flag history Abnormal sensory exam Either normal circulation or diminished circulation with no foot deformity a nd no minor infection FOOT CARE EDUCATION: -Examine feet daily -Bathe feet daily -Use clean non-restrictive socks -Ulcers lead to gangrene and amputation -Do not walk barefoot and wear properly fitted shoes -Seek medical attention immediately for new cira t injuries or ulcers Blain offered Podiatry consult, but declined. /pablo/ VIPUL CRANE MD RESIDENT Signed: 10/04/2021 15:56 Receipt Acknowledged By: 10/05/2021 06:14 /pablo/ Sima Wisdom, Fletcher Sp ecialist Principal Facility PCMM Coordinator 10/04/2021 16:53 /pablo/ RAFFI LOPEZ MD Staff Physician 10/04/2021 ADDENDUM STATUS: COMPLETED I have obtained/reviewed this patient's history, pertinent physical exam, laboratory/radiologic data a s noted in today's visit documentation. I agree with the assessment and treatment plan as outlined. /pablo/ RAFFI LOPEZ MD Staff Physician Signed: 10/04/2021 16:54 10/05/2021 ADDENDUM STATUS: COMPLETED Patient A1c was 7.1. Switching patient b ack to Lantus for the time being. Hope is eventually wean back to just oral med ications. Would like patient to follow up in 3 months with new A1c. If worsening (>7.1) then would schedule patient for telephone encounter. I'll place lab order and or tosin for the Lantus. I'll call Janey and let her know. Also adding magn esium supplement to patient regimen as well. /pablo/ VIPUL CRANE MD RESIDENT Signed: 10/05/2021 12:26 10/05/2021 ADDENDUM STATUS: COMPLETED Was unable to get a hold of him or Janey (legal guardian). I left a voice mail. Could you relay the message if he calls back? Carolina guevara /pablo/ VIPUL CRANE MD RESIDENT Signed: 10/05/2021 12:32 Receipt Acknowledged By: 10/05/2021 13:41 /pablo/ SAM OBREGON RN [employer] REPRODUCTIVE SURGEON 10/05/2021 ADDENDUM STATUS: COMPLETED This chief writer unable to contac t either the patient or his guardian. Left a message with the patient and ensured he has this chief writer' s direct contact number. /pablo/ ULYSSES CARTERCT REPRODUCTIVE SURGEON Signed: 10/05/2021 13:42 10/05/2021 ADDENDUM STATUS: COMPLETED The patient returned this wr iter's call. He agrees with taking Lantus again and will expect it in the mail. He will also get his A1c rechecked when he's called and scheduled. He was notified a letter would be coming from his PCP that reviews his latest lab work and his POC. The patient V/U. No other questions for PC at this time. 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
--- OUTSIDE RECORDS SUMMARY | 2022-03-13 16:18 | XMS_ITS | Encounter Summary ---
:1945 Author Organization Department of [facility] rs Address [address] [place] [address] Support Name Relationship Address Phone SIRIA THOMPSON Unavailable [address] [place] [phone] [place] [address] JANEY OTTO Unavailable [address] [place] [address] [facility], Unavailable [address] [facility] [place] [place] [address] Insurance Providers: All historical and current Section [...] MEDICARE MEDICARE PART Sep 26, PART A [id number] DONNA SAL ALMANZAR (WNR) (M) A 2012 [id number] [phone] JUAN MEDICARE MEDICARE PART Sep 26, PART B [id number] ODNNA ALMANZAR (WNR) (M) B 2012 [id number] [phone] JRJUAN Selected Encounter This section includes the information on record at OR for the Encounter. Date/Time Encounter Type Encounter Reason Provider Source Description Oct 11, 2021 QNHP OL DIG CLINICAL ICD-10-CM Z79.01 REID SUE 11:04 AM ASSMT&MGMT 21+ PHARMACY snf (current) R KAYLA use of anticoagulants with Provider Comments: Long-term current use of anticoagulant (SNOMED CT [id number]) IHE Encounter Template Text not used by OR Assessments - Encounter Diagnoses This section includes the primary and secondary diagnoses documented for the Encounter. Date/Time Primary/Secondary Diagnosis Name Provider Source Diagnosis Oct 11, 2021 PRIMARY snf (current) [facility] 11:08 AM use of [facility] anticoagulants Oct 11, 2021 SECONDARY Unspecified atrial [facility] 11:08 AM fibrillation [facility] Plan of Treatment: Future Appointments (+ 6 months) and Future Tests (+/- 45 days) The Plan of Treatment section includes future care activities for the [facility] This section includes future appointments and future orders which are active, pending orscheduled.Future Appointments This section includes appointments that were scheduled to occur 6 months from the date of the Encounter, up to a maximum of 20 appointments. The data comes from all [facility]. Appointment Date/Time Appointment Type Appointment Facili ty Name Oct 18, 2021 01:00 PM AMBULATORY - PSYCHIATRY [facility] December 21, 2021 09:45 AM AMBULATORY - NONE [facility] December 21, 2021 11:15 AM AMBULATORY - MEDICINE [facility] Jan 17, 2022 11:00 AM AMBULATORY - MEDICINE [facility] Jan 17, 2022 12:30 PM AMBULATORY - NONE [facility] Feb 02, 2022 11:16 AM AMBULATORY - NONE [facility] Feb 09, 2022 01:00 PM AMBULATORY - SURGERY [facility] Apr 11, 2022 11:00 AM AMBULATORY - MEDICINE [facility] Active, Pending, and Scheduled Orders This section includes a listing of several types of active, pending, and scheduled orders, including clinic medications orders, diagnostic test orders, procedure orders and consult orders; where the start date of the order is 45 days before the date of the Encounter or 45 days after the date of the Encounter. The data comes from all [facility]. Test Date/Time Test Type Test Details Facility Name Oct 04, 2021 02:12 PM Laboratory - Chemistry MICROALBUMIN/CREATI N [facility] Order INE RATIO URINE URINE WC ONCE Lab Results: +/- 30 days of the encounter This section includes the Chemistry and Hematology Lab Results on record with OR for the patient. Radiology Reports and Pathology Reports are provided separately, in subsequent sections.Lab Results This section contains the Chemistry/Hematology Results that were resulted 30 days before or 30 daysafter the date of the Encounter. Date/Time Source Result Type Result - Unit Interpretation Reference Range Comment Oct 04, 2021 03:59 PM [facility] VITAMIN E Specim en Type: SERUM Comment: Levels of alpha-tocopherol <5 mg/L are consistent with Vitamin E deficiency in adults. Vitamin supplementation within 24 hours prior to blood draw may affect the accuracy of the results. Th is test was rocael cisneros and its analytical performance characteristics have been determined by [facility] [place], [place]. It has not been cleared or approved by the U.S. Food and D rug Administrati on. This assay has been validated pursuant to the CLIA regulations and is used for clinical purposes. Test Performed by [employer], [address] [place] [address] Devante Meyer M.D., Ph.D., Director of Laboratories , CLIA [id number] Ordering Provid er: VIPUL CRANE Report Released Date/Time: Oct 04, 2021 02:12 PM Reporting [facility] [address] Performing Lab: [address] .VITAMIN E (ALPHA) 11.9 5.7-19.9 .VITAMIN E (B-GAMMA) <1.0 <=4.3 Oct 04, 2021 03:59 PM [facility] VITAMIN A Specim en Type: SERUM Comment: Vitami n supplementation within 24 hours prior to blood draw may affect the accuracy of the results. This test was developed and its analytical performance characteristics have been determined by [employer] [place], [place]. It has not been cleared or approved by the U.S. Food and Drug Administration. This assay has been validated pursuant to the CLIA regulations and is used for clinica l purposes. Test Performed by [facility] [address] [place], [address] [place], [place] Devante Meyer M.D., Ph.D., Director of Laboratories , CLIA [id number] Ordering Provid er: VIPUL CRANE Report Released Date/Time: Oct 04, 2021 02:12 PM Reporting Lab: [facility] [address] Performing Lab: [facility] [address] [facility] VITAMIN A 60 38-98 Oct 04, 2021 03:59 PM [facility] B 12 Specim en Type: SERUM No comment enter ed. Ordering Provid er: VIPUL CRANE Report Released Date/Time: Oct 04, 2021 02:12 PM Reporting Lab: [facility] [address] [facility] [address] Performing Lab: [facility] [address] [facility] [address] B 12 604 213-816 Oct 04, 2021 03:59 [facility] TSH W/REFLEX TO FREE Spec imen Type: PLASMA PM T4 No comment enter ed. Ordering Provid er: VIPUL CRANE Report Released Date/Time: Oct 04, 2021 02:12 PM Reporting Lab: [facility] [address] [facility] [address] Performing Lab: [facility] [address] [facility] [address] TSH 1.78 0.35-4.94 Oct 04, 2021 03:59 PM [facility] FOLATE Specim en Type: SERUM No comment enter ed. Ordering Provid er: VIPUL CRANE Report Released Date/Time: Oct 04, 2021 02:12 PM Reporting Lab: [facility] [address] [facility] [address] Performing Lab: [facility] [address] [facility] [address] FOLATE 17.7 >7.0 Oct 04, 2021 03:59 [facility] VIT D 25-OH,TOTAL Specime n Type: SERUM PM No comment enter ed. Ordering Provid er: VIPUL CRANE Report Released Date/Time: Oct 04, 2021 02:12 PM Reporting Lab: [facility] [address] [facility] [address] Performing Lab: [facility] [address] [facility] [address] VIT D 25-OH,TOTAL 79 H 12-50 Oct 04, 2021 03:59 PM [facility] HEMOGLOBIN A1C Specim en Type: BLOOD No comment enter ed. Ordering Provid er: VIPUL CRANE Report Released Date/Time: Oct 04, 2021 02:12 PM Reporting Lab: [facility] [address] [facility] [address] Performing Lab: [facility] [address] [facility] [address] HEMOGLOBIN A1C 7.1 H 4.0-6.0 Oct 04, 2021 [facility] LIPID PANEL,NON-FASTING Spec imen Type: PLASMA 03:59 PM No comment enter ed. Ordering Provid er: VIPUL CRANE Report Released Date/Time: Oct 04, 2021 02:12 PM Reporting Lab: [facility] [address] Performing Lab: [facility] [address] CHOLESTEROL 114 <199 .HDL 45 >40 LDL CALCULATION 55 <99 VLDL CALCULATION 14 <29 NON HDL CHOLESTEROL 69 <129 TRIG(NON FASTING) 69 <149 Oct 04, 2021 03:59 PM [facility] CBC Specim en Type: BLOOD No comment enter ed. Ordering Provid er: VIPUL CRANE Report Released Date/Time: Oct 04, 2021 02:12 PM Reporting Lab: [facility] [address] Performing Lab: [facility] [address] WBC 8.98 4.0-11.0 RBC 4.19 L 4.6-6.2 HGB 12.1 L 13.5-17.9 HCT 36.4 L 41-54 MCV 86.9 80-100 MCH 28.9 27-33 MCHC 33.2 32.0-37.5 PLT 279 150-400 MPV 10.5 H 7.4-10.4 RDW 13.2 11.5-14.5 Oct 04, 2021 [facility] COMPREHENSIVE METABOLIC Spec imen Type: PLASMA 03:59 PM PANEL+MG No comment enter ed. Ordering Provid er: VIPUL CRANE Report Released Date/Time: Oct 04, 2021 02:12 PM Reporting [facility] [address] Performing Lab: [facility] [address] CREATININE 1.1 0.7-1.2 UREA NITROGEN 17 8-26 GLUCOSE 118 H 74-100 SODIUM 142 136-145 POTASSIUM 3.6 3.5-5.1 CHLORIDE 105 98-107 CO2 26 22-29 CALCIUM 9.3 8.4-10.2 PROTEIN,TOTAL 6.4 6.0-8.3 ALBUMIN 4.1 3.5-5.2 BILIRUBIN, TOTAL 0.6 0.2-1.2 MAGNESIUM 1.3 L 1.6-2.6 ANION GAP 11 5-15 ALKALINE PHOSPHATASE 119 40-150 ALT/SGPT 12 <55 AST/SGOT 15 <34 CREAT EGFR(CKD-EPI) 71 >60 Oct 04, 2021 [facility] MICROALBUMIN/CREATININE RATIO Specimen Type: URINE 03:53 PM URINE No comment enter ed. Ordering Provid er: VIPUL CRANE Report Released Date/Time: Oct 04, 2021 03:39 PM Reporting Lab: [facility] [address] [facility] [address] Performing Lab: [facility] [address] CREATININE,UR RANDOM 117.0 58.0-161. 0 ALB/CREAT RATIO,UR 15.8 <29.9 MICROALBUMIN,UR 18.5 <29.9 Social History: Smoking Status (Most current) and Tobacco Use (All prior to encounter date) This section includes the most current, and the historical, smoking and tobacco-related health factors from the OR facility where the Encounter took place.Current Smoking Status This section includes the most current smoking, or tobacco-related health factor, from the OR facility where the Encounter took place. Date/Time Current Smoking Status Comment Facility Aug 21, 2021 01:00 PM VA-TOBACCO FORMER USER [facility] Tobacco Use History This section includes a history of the smoking, or tobacco- related health factors, that were collected on or before the date of the Encounter. The data comes from the OR facility where the Encounter took place. Date/Time Smoking Status/Tobacco Use Comment [facility] Aug 21, 2021 01:00 PM VA-TOBACCO QUIT 15 YRS OR MORE [facility] Jul 09, 2018 08:58 AM VA-TOBACCO FORMER USER [facility] Jul 09, 2018 08:58 AM VA-TOBACCO QUIT 15 YRS OR MORE [facility] Jul 18, 2017 09:58 AM FORMER TOBACCO USER 7Y OR GREATER [facility] Aug 14, 2016 10:59 AM FORMER TOBACCO USER 7Y OR GREATER [facility] Jun 29, 2015 02:03 PM FORMER TOBACCO USER 7Y OR GREATER [facility] Jan 06, 2014 03:04 PM FORMER TOBACCO USER 7Y OR GREATER [facility] Jan 04, 2012 08:36 AM FORMER TOBACCO USER 7Y OR GREATER [facility] Encounter Notes: All associated encounter notes This section contains the clinical notes associated to the Encounter. Date/Time Encounter Note(s) Provider Source Oct 11, 2021 11:04 AM MEDICATION MGT CONSULT: RADHA SUE [facility] LOCAL TITLE: ANTICOAGULATION CLINIC CONSULT STANDARD TITLE: MEDICATION MGT CONSULT DATE OF NOTE: OCT 11, 2021@11:04 ENTRY DATE: OCT 11, 2021@11:04:50 AUTHOR: RADHA SUE EXP COSIGNER: URGENCY: STATUS: COMPLETED DOAC INITIATION - Anticoagulant regimen: Apixaban 5mg every 12 h ours - Indication: Atrial fibrillation - Secondary Indication/Relevant PMH: - h/o TIA (2011) per pt - h/o Ina-en-Y bariatric surgery - Prior major bleeds: none - Prior anticoagulants: warfarin (08/2013-10/2019 ) - Date started: October 2019, ROSARIO back to [place] 10/25 22 - Anticipated duration of therapy: indefinite - CHADS2-VASC = 3-5 [age, htn, dm, +/-tia] - HAS-BLED = 1-2 [age, +/-TIA] Notes: - difficult to reach by phone and has crystal louis getting his voicemail. - legal guardianship Janey Otto Care Coordination: - [facility], MEDINA Fernandez, ph:[phone], iram isiting weekly SUBJECTIVE/OBJECTIVE Obtained from chart review, patient and MEDINA antonio [facility] [place] and monitored locally. Discharged to home ~07/2021 and has now re-established PCP at OR. No Active bleeding/increased bleeding risk: No Active endocarditis: No Falls risk: Yes Abnormal mental status\compliance concerns: - cognitive disorder No Significant drug interactions: No Alcohol use: - Baseline: No Renal or hepatic dysfunction: No Valvular disease (mitral stenosis) or mechani lance valve replacement: No Active cancer/hypercoagulability: Yes History of bariatric or bowel resection surg [place]: - h/o gastric bypass No Weight >150kg/BMI >50 - ROSARIO or already been on 2-4 weeks No Recent health changes: No Upcoming procedures requiring interruption: No Bleeding or thromboembolic complications: Dashboard flags: none Active and Recently Outpatient Medicatio ns (excluding Supplies): Active Outpatient Medications Status 1) ACCU-CHEK GUIDE [...] JESUS RY 12 ACTIVE HOURS TO PREVENT BLOOD CLOTS 4) ATORVASTATIN CALCIUM 20MG TAB [...] UNITS UNDER THE SKIN EVERY DAY 10) MAGNESIUM OXIDE 400MG TAB TAKE ONE TABLET BY MOUTH ACTIVE EVERY DAY 11) METFORMIN HCL 500MG 24HR SA TAB TAKE TWO TAB LETS BY ACTIVE MOUTH TWICE A DAY 12) METOPROLOL SUCCINATE 50MG SA TAB TAKE ONE TA BLET BY ACTIVE MOUTH EVERY DAY FOR HEART AND BLOOD PRESSURE 13) MULTIVITAMIN CAP/TAB TAKE 1 TABLET BY MOUTH EVERY DAY ACTIVE 14) OMEPRAZOLE 20MG EC CAP TAKE ONE CAPSULE BY M OUTH ACTIVE EVERY DAY ON AN EMPTY STOMACH, AT LEAST 30 ELIF TIMO PRIOR TO A MEAL FOR REFRACTORY GERD 15) QUETIAPINE FUMARATE 25MG TAB TAKE ONE TO THR EE TABS ACTIVE BY MOUTH AT BEDTIME FOR SLEEP Inactive Outpatient Medications Status 1) CYANOCOBALAMIN 1000MCG TAB TAKE ONE TABLET BY MOUTH EVERY DAY 2) VENLAFAXINE HCL 150MG 24HR SA CAP TAKE ONE CA PSULE BY MOUTH EVERY EVERY MORNING 17 Total Medications Labs ---- Age: 76 Weight: 218 lb [99.1 kg] (10/04/2021 14:10) BMI: 33.2 Height: 68 in [172.7 cm] (10/04/2021 14:10) CREATININE 1.1 PLASMA (10/04/21 15:59) Cockcroft & Gault (Actual body weight) = 83.7 mL /min Collection DT Spec WBC HGB HCT PLT MCV 10/04/2021 15:59 BLOOD 8.98 12.1 L 36.4 L 279 86 .9 Collection DT Specimen Test Name Result Units Re f Range 10/04/2021 15:59 PLASMA BILIRUBIN, TOTAL 0.6 mg/ dL 0.2 - 1.2 10/04/2021 15:59 PLASMA ALKALINE PHOSPHAT 119 U/ L 40 - 150 10/04/2021 15:59 PLASMA AST/SGOT 15 U/L Ref: <=3 4 10/04/2021 15:59 PLASMA ALT/SGPT 12 U/L Ref: <=5 5 ASSESSMENT/PLAN - Appropriate for DOAC use. - Does NOT meet 2 out of 3 criteria (age >/= 80 years, creatinine >/= 1.5,weight </= 60 kg) for apixaban dose reducti on in A. fib. - Baseline labs within the past ~30 days: o available & acceptable. - Approve DOAC use: Apixaban 5mg q12h - Previously Educated on initial AC intake back in 09/2019, [facility] [place]. Cognitive dx and has HHN visiting weekly - Appropriate review planned: periodic - Lab monitoring frequency defined by dashboard or as clinically indicated. - Monitor dashboard for labs, drug interactions, and compliance. Time spent: 30 minutes Patient Education of Treatment Plan: Patient/Car egiver Indicates readiness to learn, verbalizes understanding, agreeme nt and satisfaction with the treatment plan. Denies further questions. /pablo/ Radha Sue, Pharm.D. Clinical Ambulance Driver Paramedic Signed: 10/11/2021 11:08
--- OUTSIDE RECORDS SUMMARY | 2022-03-13 16:18 | XMS_ITS | Encounter Summary ---
:1945 Author Organization [facility] rs Address [address] [place] [address] Support Name Relationship Address Phone SIRIA THOMPSON Unavailable [address] [place] [phone] [place] [address] JANEY LOPEZ Unavailable [address] [place] [address] [facility], Unavailable [address] [facility] [place] [address] Insurance Providers: All historical and current Section [...] MEDICARE MEDICARE PART Sep 26, PART A [id number] 800 DONNA HUANG YOHAN (WNR) (M) A 2012 [id number] [phone] JUAN MEDICARE MEDICARE PART Sep 26, PART B [id number] 800 DONNAAMARILIS ALMANZAR (WNR) (M) B 2012 [id number] [phone] JUAN Selected Encounter This section includes the information on record at [place] for the Encounter. Date/Time Encounter Type Encounter Description Reason Provider Source Sep 29, 2021 04:14 Outpatient Encounter TELEPHONE TRIAGE PM IHE Encounter Template Text not used by [place] Plan of Treatment: Future Appointments (+ 6 [...] 20 appointments. The data comes from all [facility]. Appointment Date/Time Appointment Type Appointment Facili ty Name Oct 04, 2021 02:00 PM AMBULATORY - MEDICINE [facility] Oct 18, 2021 01:00 PM AMBULATORY - PSYCHIATRY [facility] December 21, 2021 09:45 AM AMBULATORY - NONE [facility] December 21, 2021 11:15 AM AMBULATORY - MEDICINE [facility] Jan 17, 2022 11:00 AM AMBULATORY - MEDICINE [facility] Jan 17, 2022 12:30 PM AMBULATORY - NONE [facility] Feb 02, 2022 11:16 AM AMBULATORY - NONE [facility] Feb 09, 2022 01:00 PM AMBULATORY - SURGERY [facility] S Active, Pending, and Scheduled Orders This section includes a listing of several types of active, pending, and scheduled orders, including clinic medications orders, diagnostic test orders, procedure orders and consult orders; where the start date of the order is 45 days before the date of the Encounter or 45 days after the date of the Encounter. The data comes from all [facility]. Test Date/Time Test Type Test Details Facility Name Oct 04, 2021 02:12 PM Laboratory - Chemistry MICROALBUMIN/CREATI N [facility] Order INE RATIO URINE URINE WC [...] Range Comment Oct 04, 2021 03:59 PM [facility] VITAMIN E Specim en Type: SERUM Comment: Levels of alpha-tocopherol <5 mg/L are consistent with Vitamin E deficiency in adults. Vitamin supplementation within 24 hours prior to blood draw may affect the accuracy of the results. Th is test was rocael cisneros and its analytical performance characteristics have been determined by [employer] [place], [place]. It has not been cleared or approved by the U.S. Food and D rug Administrati on. This assay has been validated pursuant to the CLIA regulations and is used for clinical purposes. Test Performed by Jose Louie, [employer] [facility], [address] [place], [place] Devante Meyer M.D., Ph.D., Director of Laboratories , CLIA [id number] Ordering Provid er: VIPUL CRANE Report Released Date/Time: Oct 04, 2021 02:12 PM Reporting Lab: [facility] [address] [facility] [address] Performing Lab: [address] .VITAMIN E (ALPHA) 11.9 5.7-19.9 .VITAMIN E (B-GAMMA) <1.0 <=4.3 Oct 04, 2021 03:59 PM [facility] VITAMIN A Specim en Type: SERUM Comment: Vitami n supplementation within 24 hours prior to blood draw may affect the accuracy of the results. This test was developed and its analytical performance characteristics have been determined by [employer] [place], [place]. It has not been cleared or approved by the U.S. Food and Drug Administration. This assay has been validated pursuant to the CLIA regulations and is used for clinica l purposes. Test Performed by [facility], [employer] [facility], [address] [place] [address] Devante Meyer M.D., Ph.D., Director of Laboratories , CLIA [id number] Ordering Provid er: VIPUL CRANE Report Released Date/Time: Oct 04, 2021 02:12 PM Reporting Lab: [facility] [address] [facility] [address] Performing Lab: [address] VITAMIN A 60 38-98 Oct 04, 2021 03:59 PM [facility] B 12 Specim en Type: SERUM No comment enter ed. Ordering Provid er: VIPUL CRANE Report Released Date/Time: Oct 04, 2021 02:12 PM Reporting Lab: [facility] [address] [facility] [address] Performing Lab: [facility] [address] [facility] [address] B 12 [phone] Oct 04, 2021 03:59 [facility] TSH W/REFLEX TO FREE Spec imen Type: PLASMA PM T4 No comment enter ed. Ordering Provid er: VIPUL CRANE Report Released Date/Time: Oct 04, 2021 02:12 PM Reporting Lab: [facility] [address] [facility] [address] Performing Lab: [facility] [address] [facility] [address] TSH 1.78 0.35-4.94 Oct 04, 2021 03:59 PM [facility] FOLATE Specim en Type: SERUM No comment enter ed. Ordering Provid er: VIPUL CRANE Report Released Date/Time: Oct 04, 2021 02:12 PM Reporting Lab: [facility] [address] [facility] [address] Performing Lab: [facility] [address] [facility] [address] FOLATE 17.7 >7.0 Oct 04, 2021 03:59 [facility] VIT D 25-OH,TOTAL Specime n Type: SERUM PM No comment enter ed. Ordering Provid er: VIPUL CRANE Report Released Date/Time: Oct 04, 2021 02:12 PM Reporting Lab: [facility] [address] [facility] [address] Performing Lab: [facility] [address] [facility] [address] VIT D 25-OH,TOTAL 79 H 12-50 Oct 04, 2021 03:59 PM [facility] HEMOGLOBIN A1C Specim en Type: BLOOD No comment enter ed. Ordering Provid er: VIPUL CRANE Report Released Date/Time: Oct 04, 2021 02:12 PM Reporting Lab: [facility] [address] [facility] [address] Performing Lab: [facility] [address] [facility] [address] HEMOGLOBIN A1C 7.1 H 4.0-6.0 Oct 04, 2021 [facility] LIPID PANEL,NON-FASTING Spec imen Type: PLASMA 03:59 PM No comment enter ed. Ordering Provid er: VIPUL CRANE Report Released Date/Time: Oct 04, 2021 02:12 PM Reporting Lab: [facility] [address] [facility] [address] Performing Lab: [facility] [facility] [address] CHOLESTEROL 114 <199 .HDL 45 >40 LDL CALCULATION 55 <99 VLDL CALCULATION 14 <29 NON HDL CHOLESTEROL 69 <129 TRIG(NON FASTING) 69 <149 Oct 04, 2021 03:59 PM [facility] CBC Specim en Type: BLOOD No comment enter ed. Ordering Provid er: VIPUL CRANE Report Released Date/Time: Oct 04, 2021 02:12 PM Reporting Lab: [facility] [place] [address] [facility] [address] Performing Lab: [facility] [place] [facility] [address] WBC 8.98 4.0-11.0 RBC 4.19 L 4.6-6.2 HGB 12.1 L 13.5-17.9 HCT 36.4 L 41-54 MCV 86.9 80-100 MCH 28.9 27-33 MCHC 33.2 32.0-37.5 PLT 279 150-400 MPV 10.5 H 7.4-10.4 RDW 13.2 11.5-14.5 Oct 04, 2021 [facility] COMPREHENSIVE METABOLIC Spec imen Type: PLASMA 03:59 PM PANEL+MG No comment enter ed. Ordering Provid er: VIPUL CRANE Report Released Date/Time: Oct 04, 2021 02:12 PM Reporting Lab: [facility] [address] [facility] [address] Performing Lab: [facility] [address] CREATININE 1.1 0.7-1.2 UREA NITROGEN 17 8-26 GLUCOSE 118 H 74-100 SODIUM 142 136-145 POTASSIUM 3.6 3.5-5.1 CHLORIDE 105 98-107 CO2 26 22-29 CALCIUM 9.3 8.4-10.2 PROTEIN,TOTAL 6.4 6.0-8.3 ALBUMIN 4.1 3.5-5.2 BILIRUBIN, TOTAL 0.6 0.2-1.2 MAGNESIUM 1.3 L 1.6-2.6 ANION GAP 11 5-15 ALKALINE PHOSPHATASE 119 40-150 ALT/SGPT 12 <55 AST/SGOT 15 <34 CREAT EGFR(CKD-EPI) 71 >60 Oct 04, 2021 [facility] MICROALBUMIN/CREATININE RATIO Specimen Type: URINE 03:53 PM URINE No comment enter ed. Ordering Provid er: VIPUL CRANE Report Released Date/Time: Oct 04, 2021 03:39 PM Reporting Lab: [facility] [address] Performing Lab: [facility] [address] [facility] [address] CREATININE,UR RANDOM 117.0 58.0-161. 0 ALB/CREAT RATIO,UR 15.8 <29.9 MICROALBUMIN,UR 18.5 <29.9 Social History: Smoking Status (Most current) and Tobacco Use (All prior to encounter date) This section includes the most current, and the historical, smoking and tobacco-related health factors from the [facility] where the Encounter took place.Current Smoking Status This section includes the most current smoking, or tobacco-related health factor, from the [facility] where the Encounter took place. Date/Time Current Smoking Status Comment Facility Aug 21, 2021 01:00 PM [place]-TOBACCO FORMER USER [facility] Tobacco Use History This section includes a history of the smoking, or tobacco- related health factors, that were collected on or before the date of the Encounter. The data comes from the [facility] where the Encounter took place. Date/Time Smoking Status/Tobacco Use Comment Facil it Aug 21, 2021 01:00 PM MA-TOBACCO QUIT 15 YRS OR MORE [facility] Jul 09, 2018 08:58 AM [place]-TOBACCO FORMER USER [facility] Jul 09, 2018 08:58 AM [place]-TOBACCO QUIT 15 YRS OR MORE [facility] [...] USER 7Y OR GREATER [facility] Encounter Notes: All associated encounter notes This section contains the clinical notes associated to the Encounter. Date/Time Encounter Note(s) Provider Source Sep 29, 2021 04:14 PM [facility] TITLE: PATIENT CONTACT NOTE STANDARD TITLE: REPORT OF CONTACT DATE OF NOTE: SEP 29, 2021@16:14 ENTRY DATE: SEP 29, 2021@16:14:18 AUTHOR: JOEL FARRIS EXP COSIGNER: URGENCY: STATUS: COMPLETED PATIENT CONTACT NOTE Has ADDENDA Patient contact Name of : JUAN THOMPSON JR Name/Relationship of Contact if other than Veter an: Date & Time of Contact: Sep@16:14 Type of Contact: Reason for Contact: Rebecca, from [facility], called stating that the was recently discharged from nursing and [facility] Rebecca states that the has dementia and can be forgetful of what's on his med list. Rebecca states that she can provide a list o f that medication needed to please give her a call. Irasema mcdowell has new pt. appt on 10/04. Rebecca is also going to need orders of new updated m ed listed faxed over to [phone]. Please contact Rebecca at the number listed above. /pablo/ JOEL WYLIE 23 [facility] MSA Signed: 09/29/2021 16:19 Receipt Acknowledged By: 10/03/2021 08:19 /pablo/ VIPUL CRANE MD RESIDENT 10/02/2021 10:05 /pablo/ SAM OBREGON RN [employer] REPAIRER HELPER 10/02/2021 ADDENDUM STATUS: COMPLETED It appears the only medicati on still active for this patient is quetiapine. All other medications have expir ed. Please advise if the medications need to be renewed. This process description writer will contact Home Care for clarification of above note. /pablo/ SAM OBREGON RN [employer] MET[employer] REPAIRER HELPER Signed: 10/02/2021 10:12 Receipt Acknowledged By: 10/03/2021 08:28 /pablo/ VIPUL CRANE MD RESIDENT 10/02/2021 ADDENDUM STATUS: COMPLETED This process description writer contacted Rebecca [facility] nurse for this patient. She states he has moved out of a [facility] and now lives independently. The needs to be evaluated for his medi cation renewal and his cognitive ability to live by himself. The pharmacy he uses [facility] in [facility]. The contact number is [phone]. When the patient comes to his appointment on 10/04 Rebecca is hoping to get a new medic ation list with all of his meds up to date. No other questions at this time. Ensured she has this process description writer's direct contact number to call with any more questions or concerns. /pablo/ SAM OBREGON RN [employer] MET[employer] REPAIRER HELPER Signed: 10/02/2021 10:22 Receipt Acknowledged By: 10/03/2021 08:30 /pablo/ VIPUL CRANE MD RESIDENT 10/03/2021 ADDENDUM STATUS: COMPLETED All Psych medications needs to go through Dr. Lyle bray with /pablo/ VIPUL CRANE MD RESIDENT Signed: 10/03/2021 08:30 Receipt Acknowledged By: * AWAITING SIGNATURE * SAM OBREGON
--- OUTSIDE RECORDS SUMMARY | 2022-03-13 16:19 | XMS_ITS | Encounter Summary ---
:1945 Author Organization [facility] rs Address [address] [place] [address] Support Name Relationship Address Phone SIRIA THOMPSON Unavailable [address], [place] [address] JANEY LOPEZ Unavailable [address] [place] [address] [facility], Unavailable [address] [facility] [place] [address] Insurance Providers: All historical and current Section [...] MEDICARE MEDICARE PART Sep 26, PART A [id number] 800 DONNA HUANG YOHAN (WNR) (M) A 2012 [id number] [phone] JUAN MEDICARE MEDICARE PART Sep 26, PART B [id number] 800 DONNAAMARILIS ALMANZAR (WNR) (M) B 2012 [id number] [phone] JUAN Selected Encounter This section includes the information on record at [place] for the Encounter. Date/Time Encounter Type Encounter Description Reason Provider Source May 05, 2021 02:58 Outpatient Encounter TELEPHONE TRIAGE PM IHE Encounter [...] 20 appointments. The data comes from all [place] treatment facilities. Appointment Date/Time Appointment Type Appointment Facili ty Name Aug 21, 2021 01:00 PM AMBULATORY - PSYCHIATRY [facility] Oct 04, 2021 02:00 PM AMBULATORY - MEDICINE [facility] Oct 18, 2021 01:00 PM AMBULATORY - PSYCHIATRY [facility] Social History: Smoking Status (Most current) and Tobacco Use (All prior to encounter date) This section includes the most current, and the historical, smoking and tobacco-related health factors from the [facility] where the Encounter took place.Current Smoking Status This section includes the most current smoking, or tobacco-related health factor, from the [facility] where the Encounter took place. Date/Time Current Smoking Status Comment Facility Jul 09, 2018 08:58 AM VA-TOBACCO FORMER USER [facility] Tobacco Use History This section includes a history of the smoking, or tobacco- related health factors, that were collected on or before the date of the Encounter. The data comes from the [facility] where the Encounter took place. Date/Time Smoking Status/Tobacco Use Comment [facility] it Jul 09, 2018 08:58 AM VA-TOBACCO QUIT 15 YRS OR MORE [facility] Jul 18, 2017 09:58 AM FORMER TOBACCO USER 7Y OR GREATER [facility] Aug 14, 2016 10:59 AM FORMER TOBACCO USER 7Y OR GREATER [facility] Jun 29, 2015 02:03 PM FORMER TOBACCO USER 7Y OR GREATER [facility] Jan 06, 2014 03:04 PM FORMER TOBACCO USER 7Y OR GREATER [facility] Jan 04, 2012 08:36 AM FORMER TOBACCO USER 7Y OR GREATER [facility] Encounter Notes: All associated encounter notes This section contains the clinical notes associated to the Encounter. Date/Time Encounter Note(s) Provider Source May 05, 2021 02:58 PM REPORT OF CONTACT: CIPRIANO ROLON [place] [facility] LOCAL TITLE: PATIENT CONTACT NOTE D STANDARD TITLE: REPORT OF CONTACT DATE OF NOTE: MAY 05, 2021@14:58 ENTRY DATE: MAY 05, 2021@14:59:57 AUTHOR: DARIEL ROLON COSIGNER: URGENCY: STATUS: COMPLETED [facility] Call Center Phone number verified as correct. [phone] Almita/ Elvi nurse [employer] Account Assistant @ [facility] is requesting a call back to assist the in scheduling a msp p act morgan 4d pt request [facility] [phone]# with . Please call Almita at the number listed above. /pablo/ CIPRIANO MERCHANTN23 [facility] Signed: 05/05/2021 15:05 Receipt Acknowledged By: * AWAITING SIGNATURE * CHASIDY GUTIERREZ
--- OUTSIDE RECORDS SUMMARY | 2022-03-13 16:19 | XMS_ITS | Encounter Summary ---
:1945 Author Organization [facility] of [facility] rs Address [address] [place] [address] Support Name Relationship Address Phone SIRIA THOMPSON Unavailable [address], [place] [phone] [place] [address] JANEY LOPEZ Unavailable [address] [place] [address] [facility], Unavailable [address] [facility] [place], [place] [address] Insurance Providers: All historical and current Section [...] MEDICARE MEDICARE PART Sep 26, PART B [id number] 800 DONNA ALMANZAR (WNR) (M) B 2012 [id number] [phone] JUAN LANDAVERDE MEDICARE MEDICARE PART Sep 26, PART A [id number] 800 DONNA ALMANZAR (WNR) (M) A 2012 [id number] [phone] JUAN LANDAVERDE Selected Encounter This section includes the information on record at [place] for the Encounter. Date/Time Encounter Type Encounter Description Reason Provider Source May 19, 2021 12:00 Outpatient Encounter EVENT (HISTORICAL) AM E Encounter Template Text not used by [place] Plan of Treatment: Future Appointments (+ 6 [...] 20 appointments. The data comes from all [place] treatment facilities. Appointment Date/Time Appointment Type Appointment Facili ty Name Aug 21, 2021 01:00 PM AMBULATORY - PSYCHIATRY [facility] Oct 04, 2021 02:00 PM AMBULATORY - MEDICINE [facility] Oct 18, 2021 01:00 PM AMBULATORY - PSYCHIATRY [facility] Immunizations: All administered on the encounter date This section contains immunizations associated to the Encounter. Immunization Series Date Issued Reaction Comments INFLUENZA, UNSPECIFIED FORMULATION May 19, 2021 Social History: Smoking Status (Most current) and Tobacco Use (All prior to encounter date) This section includes the most current, and the historical, smoking and tobacco-related health factors from the [place] facility where the Encounter took place.Current Smoking Status This section includes the most current smoking, or tobacco-related health factor, from the [place] facility where the Encounter took place. Date/Time Current Smoking Status Comment Facility Jul 09, 2018 08:58 AM VA-TOBACCO FORMER USER [facility] Tobacco Use History This section includes a history of the smoking, or tobacco- related health factors, that were collected on or before the date of the Encounter. The data comes from the [place] facility where the Encounter took place. Date/Time Smoking Status/Tobacco Use Comment Facil ity Jul 09, 2018 08:58 AM VA-TOBACCO QUIT [address] [facility] Jul 18, 2017 09:58 AM FORMER TOBACCO USER 7Y OR GRE[address] [facility] Aug 14, 2016 10:59 AM FORMER TOBACCO USER 7Y OR [facility] [facility] Jun 29, 2015 02:03 PM FORMER TOBACCO USER 7Y OR [facility] [facility] Jan 06, 2014 03:04 PM FORMER TOBACCO USER 7Y OR [facility] [facility] Jan 04, 2012 08:36 AM FORMER TOBACCO USER 7Y OR [facility] [facility]
--- OUTSIDE RECORDS SUMMARY | 2022-03-13 16:19 | XMS_ITS | Encounter Summary ---
:1945 [address] [facility] of [facility] rs Address [address] [place] [address] Support Name Relationship Address Phone SIRIA THOMPSON Unavailable [address], [address] [phone] [place] [address] JANEY LOPEZ Unavailable [address] [place] [address] [facility], Unavailable [address] [facility] [place] [place] [address] Insurance Providers: All historical and current Section [...] MEDICARE MEDICARE PART Sep 26, PART A [id number] DONNA ALMANZAR (WNR) (M) A 2012 [id number] [phone] JUAN LANDAVERDE MEDICARE MEDICARE PART Sep 26, PART B [id number] DONNA ALMANZAR (WNR) (M) B 2012 [id number] [phone] JUAN Selected Encounter This section includes the information on record at [place] for the Encounter. Date/Time Encounter Type Encounter Reason Provider Source Description Aug 21, 2021 OFFICE O/P EST MENTAL HEALTH ICD-10-CM F39 DONTE SINGER 01:00 PM HI 40-54 [facility] CL[facility]IC - IND Unspecified mood E A [affective] disorder with Provider Comments: Mood disorder ([facility] [id number]) IHE Encounter Template Text not used by [facility] Assessments - Encounter Diagnoses This section includes the primary and secondary diagnoses documented for the Encounter. Date/Time Primary/Secondary Diagnosis Name Provider Source Diagnosis Aug 21, 2021 PRIMARY Unspecified mood CHRISTI SINGRE IS [facility] 08:05 PM [affective] E A HCS disorder Aug 21, 2021 SECONDARY Anxiety disorder, CHRISTI SINGERO LIS [place] 08:05 PM unspecified E A HCS Aug 21, 2021 SECONDARY Mild cognitive CHRISTI SINGER [place] 08:05 PM impairment, so E A [facility] stated Plan of Treatment: Future Appointments (+ 6 months) and Future Tests (+/- 45 days) The Plan of Treatment section includes future care activities for the patient from all [place] treatmentfacilst. [facility]. This section includes future appointments and future orders which are active, pending orscheduled.Future Appointments This section includes appointments that were scheduled to occur 6 months from the date of the Encounter, up to a maximum of 20 appointments. The data comes from all [facility]. Appointment Date/Time Appointment Type Appointment Facili ty Name Oct 04, 2021 02:00 PM AMBULATORY - MEDICINE [facility] Oct 18, 2021 01:00 PM AMBULATORY - PSYCHIATRY [facility] December 21, 2021 09:45 AM AMBULATORY - NONE [facility] December 21, 2021 11:15 AM AMBULATORY - MEDICINE [facility] Jan 17, 2022 11:00 AM AMBULATORY - MEDICINE [facility] Jan 17, 2022 12:30 PM AMBULATORY - NONE [facility] Feb 02, 2022 11:16 AM AMBULATORY NONE [facility] Feb 09, 2022 01:00 PM AMBULATORY - SURGERY [facility] S Active, Pending, and Scheduled Orders This section includes a listing of several types of active, pending, and scheduled orders, including clinic medications orders, diagnostic test orders, procedure orders and consult orders; where the start date of the order is 45 days before the date of the Encounter or 45 days after the date of the Encounter. The data comes from all [facility]. Test Date/Time Test Type Test Details Facility Name Oct 04, 2021 02:12 PM Laboratory - Chemistry MICROALBUMIN/CREATI N [facility] Order INE RATIO URINE URINE WC ONCE Vital Signs: All taken on the encounter date This section contains inpatient and outpatient Vital Signs collected on the date of the Encounter. Date/Time Temperature Pulse Blood Respiratory SP02 Pain Height Weight Alex dy Source Pressure Rate Mass Index Aug 21 170/80 14 /min 224.2 34 [place] 2021 01:06 /min mm[Hg] lb [facility] Social History: Smoking Status (Most current) and Tobacco Use (All prior to encounter date) This section includes the most current, and the historical, smoking and tobacco-related health factors from the [facility] where the Encounter took place.Current Smoking Status This section includes the most current smoking, or tobacco-related health factor, from the [facility] where the Encounter took place. Date/Time Current Smoking Status Comment Facility Aug 21, 2021 01:00 PM VA-TOBACCO FORMER USER [facility] Tobacco Use History This section includes a history of the smoking, or tobacco- related health factors, that were collected on or before the date of the Encounter. The data comes from the [facility] where the Encounter took place. Date/Time Smoking Status/Tobacco Use Comment [facility] Aug 21, 2021 01:00 PM [place]-TOBACCO QUIT 15 YRS OR MORE [facility] Jul 09, 2018 08:58 AM VA-TOBACCO FORMER USER [facility] Jul 09, 2018 08:58 AM VA-TOBACCO QUIT 15 YRS OR MORE [facility] Jul 18, 2017 09:58 AM FORMER TOBACCO USER 7Y OR GREATER [facility] Aug 14, 2016 10:59 AM FORMER TOBACCO USER 7Y OR GREATER [facility] Jun 29, 2015 02:03 PM FORMER TOBACCO USER 7Y OR GREATER [facility] Jan 06, 2014 03:04 PM FORMER TOBACCO USER 7Y OR GREATER [facility] Jan 04, 2012 08:36 AM FORMER TOBACCO USER 7Y OR GREATER [facility] Encounter Notes: All associated encounter notes This section contains the clinical notes associated to the Encounter. Date/Time Encounter Note(s) Provider Source Aug 21, 2021 SUICIDE PREVENTION RISK ASSESSMENT SCREENING NOT E: EMMY SINGER [facility] 08:10 PM LOCAL TITLE: [place] SCREENING NOTE A STANDARD TITLE: SUICIDE PREVENTION RISK ASSESSME NT SCREENING NOT DATE OF NOTE: AUG 21, 2021@20:10 ENTRY DATE: AUG 21, 2021@20:10:39 AUTHOR: EMMY SINGER EXP COSIGNER: URGENCY: STATUS: COMPLETED C-SSRS Screening [place]-Suicide Severity Rating Scale (C-SSRS Screener) 1. Over the past month, have you wished you wer e or wished you could go to sleep and not wake up? No 2. Over the past month, have you had any actual thoughts of killing yourself? No 3. Over the past month, have you been thinking about how you might do this? Response not required due to responses to other questions. 4. Over the past month, have you had these thou ghts and had some intention of acting on them? Response not required due to responses to other questions. 5. Over the past month, have you started to wor k out or worked out the details of how to kill yourself? Response not required due to responses to other questions. 6. If yes, at any time in the past month did yo u intend to carry out this plan? Response not required due to responses to other questions. 7. In your lifetime, have you ever done anythin g, started to do anything, or prepared to do anything to end your life (fo r example, collected pills, obtained a gun, gave away valuables, went to th e roof but didn't jump)? Yes 8. If YES, was this within the past 3 months? No /es/ EMMY SINGER MD STAFF PSYCHIATRIST Signed: 08/21/2021 20:11 Aug 21, 2021 PSYCHIATRY E & M NOTE[facility] 02:48 PM LOCAL TITLE: PSYCHIATRIC EVALUATION & MANAGE MENT A STANDARD TITLE: PSYCHIATRY E & M NOTE DATE OF NOTE: AUG 21, 2021@14:48 ENTRY DATE: AUG 21, 2021@14:48:26 AUTHOR: EMMY SINGER EXP COSIGNER: URGENCY: STATUS: COMPLETED PSYCHIATRIC EVALUATION & MANAGEMENT Has ADDENDA PSYCHIATRIC EVALUATION AND MANAGEMENT IN PERSON VISIT: Duration: 43 minutes 38 in psychotherapy ID: 75-year-old engaged in person for fu rther evaluation treatment consideration bipolar disorder type II u nspecified anxiety disorder history of gambling difficulties, probably mild cognitive d isorder. CHIEF CONCERN -sleep is poor INTERVAL HX: last contact in March 30. I was treating him for presumptive bipolar disorder type II with fluctu ating depression and mild hypomanic features. He was living independently diabetes and apparently had diabetic crisis. Was hospitalized with glucose o ag 800. He was discharged to a detention and has been there since. Reports 3 days ago he was released back to his apartment and [place]. He now has a guardian present since at least last November. [facility] is working on establishin g rep payee as well regarding Social Security funds. [place] states he enjoyed the staff at the detention and they hated to see him leave but he also did not want to stay there. Comments since he has been back he has g ot a poor sleeping futon and sleep has been poor. Unfortunately for the last several mo nths to year prior to hospitalization he had belief that he could comm unicate with [place] [facility] commentator's while they were on the air through his TV. He still believes that. Difficult to peanut picker other more clear-cut delusional ideation. He comments that he is eating fair. He does get Jayshree ls on Wheels. Difficulty falling asleep staying asleep. Historically slee p cycles would vary at times. Sometimes up late at night. Please have been called at least a couple times to his apartment prior because he was heard to be s houting apparently at news on the TV during the time he fe lt he could communicate with commentator's. He is a pleasant and gregarious individual but ability t o focus thoughts has worsened somewhat over time. Tending to drift in storytel ling. Occasionally losing track of story line. His hair is long now. He sanchez s a son in the area but son declined to become legal guardian and has histor ically had somewhat limited contact with . No other relatives in the area besides son's family. reports he has some friends in [facility] who are willing to let him live with them but he states he would prefer to stick around here for now. Historically he has had some gambling problems a t times less so prior to the hospitalization. He had been reporting i ncreasing depressive symptoms prior to the hospitalization and I sanchez d offered trial of Latuda. Unclear if he ever tried it. We had been using Abilif y bupropion and venlafaxine as most commonly he was having problems with depress ion and hypomania seemed mild and relatively brief. Insight has declined some over time. He has a new hospice case manager/legal guardian Janey Cardona. Her phone # [phone], fax number [phone]. Tuleta did sign release but she holds legal guardianship. [place]ta historically is quite intelligent has a colorful past regarding demonstrations political involvement. He conside rs himself bisexual. DIAGNOSES : (Per DSM 5 classification) Bipolar disorder type II 2. Anxiety disorder not otherwise specified (NOS). Gambling difficulties 3. (Gantt II:) Deferred. 4. (Gantt II:) Status post gastric bypass surgery for morbid obesity. 5. History of gastroesophageal reflux disease (GERD). 6. Lung disease. 7. Chronic cough. (Gantt IV:) Stressors are moderate to severe. Financial. Only recent housing. PDMP checked 07/02/19 PAST PSYCHIATRIC MEDS: Wellbutrin for years. Zoloft was added initially a fewyears ago. He f ound some sexual side effects difficult to tolerate so heswitched to Paxil, BuSpar lorazepam. Topiramate Lamotrigine Risperidone Abilify Venlafaxine Zolpidem DRUG/ALCOHOL USE: Again, he states in the 70s up until 2002 he had fairly regular use of alcohol. He denies this being typically more than 6 drinks on a given day but he drank most d ays; again, in part at times drank out of self-medication. No detoxes. He denies significant social sequela. The only legal sequela was 1 DWI in 2002. At that point he felt that his alcohol use was probably excess jeff and nearly quit. He comments more recently he might get a box of wi ne and that might last quite a while. He has no drank though in the las t few months because financially he could not afford. he experimented some with marijuana, some halluc inogens in the 60s and 70s, no use since 1979 apparently. PAST SUICIDE ATTEMPTS/GESTURES/SIB: He had 1 suicide attempt in 1969 with fluctuatin g thoughts of suicide over time.Finds he ruminates re suicide when depressed. LABS: SODIUM____ POTASSIUM____ CREATININE____ GLUCOSE____ WBC____ HGB____ PLT ____ Collection DT Specimen Test Name Result Units Re f Range 10/27/2018 08:51 PLASMA!! AST/SGOT 16 U/L 15 - 3 7 !! Indicates COMMENTS AVAILABLE...Refer to Inter im Lab Report. Collection DT Specimen Test Name Result Units Re f Range 10/27/2018 08:51 PLASMA!! ALT/SGPT 30 U/L 13 - 6 1 !! Indicates COMMENTS AVAILABLE...Refer to Inter im Lab Report. TSH ____ FREE T4____ VALPROIC ACID____ LITHIUM____ No data available HDL____ SLT - Lab Tests Selected Collection DT Specimen Test Name Result Units Re f Range 10/27/2018 08:51 PLASMA!! LDL CALCULATION canc m g/dL !! Indicates COMMENTS AVAILABLE...Refer to Inter im Lab Report. TRIGLYCERIDE____ CHOLESTEROL____ HEMOGLOBIN A1C____ PSYCHOTHERAPY: engaged in combined CBT/problem s olving and supportive psychotherapy Active Outpatient Medications (including Supplie s): Active Outpatient Medications Status 1) CYANOCOBALAMIN 1000MCG TAB TAKE ONE TABLET BY MOUTH ACTIVE EVERY DAY 2) QUETIAPINE FUMARATE 25MG TAB TAKE ONE TO THRE E TABS ACTIVE BY MOUTH AT BEDTIME FOR SLEEP 3) VENLAFAXINE HCL 150MG 24HR SA CAP TAKE ONE CA PSULE BY ACTIVE MOUTH EVERY EVERY MORNING Side effects: MEDICATION RECONCILIATION Outpatient I have reviewed the psychiatric meds under my g uidance with the patient/surrogate and have made the appropriate changes to the CPRS medication list. Non psychiatric meds briefly reviewed and encouraged pt to confirm meds and doses with the appropriate prescriber. ALLERGIES: Patient has answered NKA VITAL SIGNS: (selected; most recent on file) --BP: 170/80 (08/21/2021 13:06) --P: 74 (08/21/2021 13:06) --Measurement DT WEIGHT LB(KG)[BMI] 08/21/2021 13:06 224.2(101.70)[34*] 10/27/2018 09:16 250(113.40)[38*] 09/11/2018 08:33 241.5(109.54)[37*] PROBLEM LIST Essential hypertension (SCT 56535703) Depressiv e Disorder NEC (ICD-9-CM 311.) Anxiety Disorder (ICD-9-CM 300.00) Primary Obesi ty (ICD-9-CM 278.00) Bronchiectasis without Acute Exacerbatio Gastroesophageal Reflux Disorder (ICD- 9-CM 530.81) Bariatric Surgery Status (ICD-9-CM V45.8MDD, Rec urrent, unspec (ICD-9-CM 296.30) Cataract nos (ICD-9-CM 366.9) Hypermetropia/Hype ropia (ICD-9-CM 367.0) Astigmatism, Unspec (ICD-9-CM 367.20) Presbyopia (ICD-9-CM 367.4) Atrial fibrillation ([facility] [id number]) Varicose vein s of lower extremity ([facility] 76552006) Compulsive gambling ([facility] 56309272) Bipolar II di sorder, most recent episode rapid cycling ([facility] [id number]) Atrial fibrillation ([facility] 64905277) Mild cognitiv e disorder ([facility] 712613784) Type 2 diabetes mellitus ([facility] 40045034) Anxiety disorder ([facility] 588751290) Mood disorder ([facility] 85207231) MENTAL STATUS EXAM: Rather casually groomed with long hair. Engages easily pleasantly. Tends to be somewhat overly elaborat jeff in responses and tendency to digress. Mood is okay. Denies active wish to harm self or others. Still believes he can communicate directly with TV commentator's in real-time through his TV. Insight and judgment limited memories pa rtial attention concentration variable ASSESSMENT: had sign ificant elevation glucose and hospitalization which is led to placement in a detention and eventu al placement of legal guardianship. He has been a champion for human r ights in the past. I fear cognitively he is been slipping some. Unfortunat nahed it does appear delusional regarding his belief that he can communicate with [facility] commentator's directly through his TV. And that they interact with him. The legal guardian is also hospice case manager. He has a substantial debt and so i s not eligible for County van ride here. This limits frequency of visi ts for anything here. Rep payee status may be in place soon. Social Security has been a dvised to establish such. He does not know which medications he is on but believes they are similar to when we last met. They did not have discharge summary from detention. Legal guardian said she would forward to my nurse list of medications when she has them available. Given sleep issues I reviewed ri sks and benefits of Seroquel and will leave that available to help wi th sleep. He is reestablishing himself at his apartment. Had limited activities while t here and somewhat limited physical endurance for walking to various stores . He is a talker. Will refer to team a given my prison. Guardian/hospice case manager will try to provide us copy room technician y of current medication list. Regarding elevated blood pre ssure feels that will settle in as he adjust to his apartment and medication regimen he will have visiting nurse. Jerome's primary care needs currently being managed by doc from [facility]. I gave guardian # for call center t o [facility] primary care here, but transportation is difficult from [place]. Not allowe d to use [employer] of excess bill outstanding. TREATMENT PLAN: - Follow-up: Referral to team A - Medications: Seroquel available as nee ded for sleep 25 mg tablets up to 3 at bedtime probably Abilify but unclear on dosing p ossibly bupropion 150 mg and venlafaxine 150 mg - Therapy: Problem solving supported with me - Lab review: Liver enzymes okay - Target symptoms:manage mood anxiety, a ssist with avoiding excess dwelling on delusions, maintain functioning in community, be tter sleep Safety Risk Assessment: Risk Factors:INcreasing age, likely delu sions, mild cognitive fall off. living alone. history mood fluctuations Protective factors:apparently stable at [facility] has guardian to assist decision making. likely repayee soon. accepting meds sobe r Overall risk level:low currently, but likely int ermediate over time. Level of care required: Outpatient SAFETY PLANNING: patient aware they can call my nurse or other VA providers, use [facility]' hotline [phone], go to ER if nec essary or call 911. review and discuss other coping mechanisms to s corie safe and discuss non-VA supports as well during visits. Addition al Safety plan documents, when they are written as part of inpatient disc harge plans, contain this information as well. Patient states understanding of education/plan p rovided at this encounter; denies further questions; and agrees with plan. Patient indicates readiness to learn, education provided at this encounter. /es/ EMMY SINGER MD STAFF PSYCHIATRIST Signed: 08/21/2021 20:08 08/21/2021 ADDENDUM STATUS: COMPLETED given vet's age please seek transfer to team A, in person intake in 6-8 weeks. /aneesh SINGER MD STAFF PSYCHIATRIST Signed: 08/21/2021 20:09 Receipt Acknowledged By: 08/23/2021 14:54 /aneesh ZAVALA RN PAYROLL ADMINISTRATOR NURSE 08/23/2021 ADDENDUM STATUS: COMPLETED Please obtain discharge med list from TCU. May be able to get it from guardian. /aneesh SINGER MD STAFF PSYCHIATRIST Signed: 08/23/2021 07:01 Receipt Acknowledged By: 08/25/2021 13:02 /aneesh ZAVALA RN PAYROLL ADMINISTRATOR NURSE 08/23/2021 ADDENDUM STATUS: COMPLETED [place] is a candidate for transfer to [facility] if available. Will cosign Dr. Delvalle for review. /aneesh ZAVALA RN PAYROLL ADMINISTRATOR NURSE Signed: 08/23/2021 14:55 Receipt Acknowledged By: 08/25/2021 12:58 /aneesh DELVALLE MD Staff Psychiatrist 08/25/2021 ADDENDUM STATUS: COMPLETED Order placed to schedule [facility] appointment with Dr. Ortega in September 2021. /aneesh DELVALLE MD Staff Psychiatrist Signed: 08/25/2021 12:58 Receipt Acknowledged By: 08/25/2021 13:01 /aneesh ZAVALA RN PAYROLL ADMINISTRATOR NURSE * AWAITING SIGNATURE * LORETA ORTEGA 08/25/2021 ADDENDUM STATUS: COMPLETED Front Tender called 's guardian for a discharge summary of his detention stay so we know what medications he's taking. Le ft message for her to call back. Janey Simms: [phone] /aneesh ZAVALA RN PAYROLL ADMINISTRATOR NURSE Signed: 08/25/2021 13:03 Aug 21, 2021 MENTAL HEALTH NOTE: WALTER MCKEON [facility] 01:09 PM LOCAL TITLE: MH PROGRESS NOTE STANDARD TITLE: MENTAL HEALTH NOTE DATE OF NOTE: AUG 21, 2021@13:09 ENTRY DATE: AUG 21, 2021@13:09:03 AUTHOR: WALTER MCKEON EXP COSIGNER: URGENCY: STATUS: COMPLETED PROGRESS NOTE Has ADDENDA Type of Visit: Appointment Check In Vital Signs: Blood Pressure: 170/80 (08/21/2021 13:06) Rob nunn declined recheck on BP and denies experiencing any SOB,CP, dizziness, arm o r jaw pain, blurred vision or headache. in agreement with plan should he experience any change in physical condition to call his PCP, come to ER o r call [address] Singer was informed of patient BP reading. Pulse: 74 (08/21/2021 13:06) Respiration: 14 (08/21/2021 13:06) Temperature: 98.7 F [37.1 C] (05/13/2020 08:28) Weight: 224.2 lb [101.9 kg] (08/21/2021 13:06) Height: 68 in [172.7 cm] (10/27/2018 09:16) BMI: 34.2 Pain: 5 (05/13/2020 08:28) Medications: Active Outpatient Medications (including Supplie s): CYANOCOBALAMIN 1000MCG TAB TAKE ONE TABLET BY MO UTH EVERY ACTIVE DAY VENLAFAXINE HCL 150MG 24HR SA CAP TAKE ONE CAPSU LE BY ACTIVE MOUTH EVERY EVERY MORNING Patient verified his/her medication list. Patient reports taking current medication list a s prescribed: Yes Side effects: No New Non-VA/Over the Counter/Herbal Medications: None Patient instructed to keep a copy of his/her med ication list and to protect this personal and private medical inform ation. Tobacco use: No Nursing Annual Screening: Fall History Screen During the past 12 months, have you had any fal ls? Patient reports having one fall without injury requiring treatment. MEDICATIONS: Patient does not have an active prescription fo r one of the following medications: Antihypertensives, Antidepressants , Antipsychotics, Diuretics, or Opioid Analgesics (Contolled Subs tance medications used for pain). FALL RISK ADVICE: Fall Risk Advice provided. Handout entitled Fa ll Prevention At Home reviewed and given to patient and/or significan t other. Script Talk Screen Are you able to read your prescription bottles with your glasses, magnifiers or other aids? Yes or patient not taking any prescriptions. Skin Screen Patient reports any current pressure ulcers, a history of pressure ulcers, or a wound from a medical malpractice paralegal or Patient is bed-confined or a wheelchair-user or Patient requires assistance to transfer/change position No, Skin Screen is Negative Home Abuse/Violence Screen Is your home free of abuse and violence? Yes Outpatient Nutrition Screen Body Mass Index (BMI)= 34.2 [place]: Collection DT Specimen Test Name Result Units R ef Range 04/23/2019 09:03 BLOOD HEMOGLOBIN A1C 7.0 H % 4 .0 - 6.0 [place] Hgb A1C: No data available [place] Hgb A1C: No data available Point of Care Hgb A1C: POC HGB A1C____ Is patient's BMI less than 18.5? No Does patient have swallowing, coughing, or chew ing problems affecting oral intake? No Has patient experienced unplanned weight loss o r gain greater than 10 pounds over the last 2 months? No Is patient's Hgb A1C (Glycosylated Hemoglobin) greater than 9.5? Information not available Is patient receiving Total Parenteral Nutrition (TPN) or Tube Feedings? No Patient Health Education Screen BARRIERS/SPECIAL NEEDS: No barriers identified PREFERRED STYLE OF LEARNING: Watching something Listening Reading Client Assistive Service (LARISSA) Screen Does the patient require assistance with outpat ient visit? No Tobacco Use Screening: The patient is a former tobacco user. The patient quit fifteen or more years ago. Homelessness/Food Insecurity Screen: In the past 2 months, have you been living in s table housing that you own, rent, or stay in as part of a household? Y es - Living in stable housing. Are you worried or concerned that in the next 2 months you may NOT have stable housing that you own, rent, or stay in a s part of a household? No - Not worried about housing near future The reports the following: Within the past 12 months, you worried whether your food would run out before you got money to buy more. Never true Within the past 12 months, the food you bought just didn't last and you didn't have money to get more. Never true /es/ WALTER MCKEON LPN STAFF NURSE Signed: 08/21/2021 13:15 Receipt Acknowledged By: 08/21/2021 20:12 /es/ EMMY SINGER MD STAFF PSYCHIATRIST 08/21/2021 ADDENDUM STATUS: COMPLETED BP systolic noted. 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 likely not baseline reading when resting. Will monitor. No distress. Given # for call center to [facility] primary care. for now [facility] doc [facility]. Jose M toledo made aware as well. /pablo/ EMMY SINGER MD STAFF PSYCHIATRIST Signed: 08/21/2021 20:15
--- OUTSIDE RECORDS SUMMARY | 2022-03-13 16:20 | XMS_ITS | Encounter Summary ---
:1945 Author Organization Department of [facility] rs Address [address] [place] [address] Support Name Relationship Address Phone SIRIA THOMPSON Unavailable [address], [place] [address] JANEY LOPEZ Unavailable [address] [place] [address] [facility], Unavailable [address] [facility] [place], [place] [address] Insurance Providers: All historical and current Section [...] MEDICARE MEDICARE PART Sep 26, PART A [id number] DONNAAMARILIS ALMANZAR (WNR) (M) A 2012 [id number] [phone] JRJUAN MEDICARE MEDICARE PART Sep 26, PART B [id number] 800 DONNA ALMANZAR (WNR) (M) B 2012 [id number] [phone] JUAN Selected Encounter This section includes the information on record at [place] for the Encounter. Date/Time Encounter Type Encounter Description Reason Provider Source Apr 19, 2021 10:12 Outpatient Encounter PRIMARY CARE/MEDICINE AM IHE Encounter [...] 21, 2021 01:00 PM AMBULATORY - PSYCHIATRY [facility] Oct 04, 2021 02:00 PM AMBULATORY - MEDICINE [facility] Social History: Smoking Status (Most current) and Tobacco Use (All prior to encounter date) This section includes the most current, and the historical, smoking and tobacco-related health factors from the [facility] where the Encounter took place.Current Smoking Status This section includes the most current smoking, or tobacco-related health factor, from the [facility] where the Encounter took place. Date/Time Current Smoking Status Comment Facility Jul 09, 2018 08:58 AM [place]-TOBACCO FORMER USER [place] [facility] Tobacco Use History This section includes a history of the smoking, or tobacco- related health factors, that were collected on or before the date of the Encounter. The data comes from the [facility] where the Encounter took place. Date/Time Smoking Status/Tobacco Use Comment [facility] Jul 09, 2018 08:58 AM VA-TOBACCO QUIT 15 YRS OR MORE [facility] Jul 18, 2017 09:58 AM FORMER TOBACCO USER 7Y OR GREATER [facility] Aug 14, 2016 10:59 AM FORMER TOBACCO USER 7Y OR GREATER [facility] Jun 29, 2015 02:03 PM FORMER TOBACCO USER 7Y OR GREATER [facility] Jan 06, 2014 03:04 PM FORMER TOBACCO USER 7Y OR GREATER [facility] Jan 04, 2012 08:36 AM FORMER TOBACCO USER 7Y OR GREATER [facility] Encounter Notes: All associated encounter notes This section contains the clinical notes associated to the Encounter. Date/Time Encounter Note(s) Provider Source Apr 19, 2021 10:12 AM REPORT OF CONTACT: CHASIDY GUTIERREZ [facility] LOCAL TITLE: APPOINTMENT SCHEDULING NOTE STANDARD TITLE: REPORT OF CONTACT DATE OF NOTE: APR 19, 2021@10:12 ENTRY DATE: APR 19, 2021@10:12:10 AUTHOR: CHASIDY GUTIERREZ EXP COSIGNER: URGENCY: STATUS: COMPLETED Attempt to schedule return to clinic 1st Contact: Called [place] at: s Left message [phone] Phone number left for to call back: Unable to leave message on voice mail. 2nd Contact: Sent letter by regular [place] mail to address on JUAN Garcia JR [address] [address] If [place] calls back, schedule appointment for : please schedule into [facility] [address] [facility] [id number]# Is the RTC marked as no later than? No /pablo/ CHASIDY PATEL MSA Signed: 04/19/2021 10:14
--- OUTSIDE RECORDS SUMMARY | 2022-03-13 16:20 | XMS_ITS | Encounter Summary ---
:1945 Author Organization Department of [facility] rs Address [address] [place] [address] Support Name Relationship Address Phone SIRIA THOMPSON Unavailable [address], [address] [phone] [place] [address] JANEY LOPEZ Unavailable [address] [place] [address] [facility], Unavailable [address] [facility] [place] [address] Insurance Providers: All historical and current [...] MEDICARE MEDICARE PART Sep 26, PART A [id number] 800 DONNA HUANG YOHAN (WNR) (M) A 2012 [id number] [phone] JUAN MEDICARE MEDICARE PART Sep 26, PART B [id number] 800 DONNA SAL ALMANZAR (WNR) (M) B 2012 [id number] [phone] JUAN Selected Encounter This section includes the information on record at [place] for the Encounter. Date/Time Encounter Type Encounter Description Reason Provider Source Apr 14, 2021 03:22 Outpatient Encounter TELEPHONE TRIAGE PM IHE Encounter Template Text not used by [place] Plan of Treatment: Future Appointments (+ 6 [...] 20 appointments. The data comes from all [place] treatment facilities. Appointment Date/Time Appointment Type Appointment Facili ty Name Aug 21, 2021 01:00 PM AMBULATORY - PSYCHIATRY [facility] Oct 04, 2021 02:00 PM AMBULATORY - MEDICINE [facility] Social History: Smoking Status (Most current) and Tobacco Use (All prior to encounter date) This section includes the most current, and the historical, smoking and tobacco-related health factors from the [place] facility where the Encounter took place.Current Smoking Status This section includes the most current smoking, or tobacco-related health factor, from the [facility] where the Encounter took place. Date/Time Current Smoking Status Comment Facility Jul 09, 2018 08:58 AM VA-TOBACCO FORMER USER [place] [facility] Tobacco Use History This section includes a history of the smoking, or tobacco- related health factors, that were collected on or before the date of the Encounter. The data comes from the [facility] where the Encounter took place. Date/Time Smoking Status/Tobacco Use Comment Facil it Jul 09, 2018 08:58 AM VA-TOBACCO QUIT 15 YRS OR MORE [facility] Jul 18, 2017 09:58 AM FORMER TOBACCO USER 7Y OR GREATER [facility] Aug 14, 2016 10:59 AM FORMER TOBACCO USER 7Y OR GREATER [facility] Jun 29, 2015 02:03 PM FORMER TOBACCO USER 7Y OR GREATER [facility] Jan 06, 2014 03:04 PM FORMER TOBACCO USER 7Y OR GREATER [facility] Jan 04, 2012 08:36 AM FORMER TOBACCO USER 7Y OR GREATER [facility] Encounter Notes: All associated encounter notes This section contains the clinical notes associated to the Encounter. Date/Time Encounter Note(s) Provider Source Apr 14, 2021 03:22 PM RE[facility]TA[facility] LOCAL TITLE: PATIENT CONTACT NOTE STANDARD TITLE: REPORT OF CONTACT DATE OF NOTE: APR 14, 2021@15:22 ENTRY DATE: APR 14, 2021@15:22:30 AUTHOR: ARTEM OJEDA COSIGNER: URGENCY: STATUS: COMPLETED PATIENT CONTACT NOTE Has [facility] Primary Care Call Center Primary Care Provider Call. Please contact at the following number:[phone] Other: Almita bender [facility] calls this date requesting an appt for patient with Dr Angeles. Joe ruano would like to schedule a [facility] appt for patient as transportation is still and issue. /pablo/ ARTEM OJEDA SENIOR REVENUE ACCOUNTANT Signed: 04/14/2021 15:25 Receipt Acknowledged By: 04/14/2021 15:33 /pablo/ CATALINA HOPSON RN REGISTERED NURSE for NASIR SUAREZ * AWAITING SIGNATURE * [place] 04/14/2021 ADDENDUM STATUS: COMPLETED Will alert MSA to schedule /pablo/ CATALINA HOPSON RN REGISTERED NURSE Signed: 04/14/2021 15:34 Receipt Acknowledged By: * AWAITING SIGNATURE * CHASIDY GUTIERREZ
--- OUTSIDE RECORDS SUMMARY | 2022-03-13 16:20 | XMS_ITS | Encounter Summary ---
:1945 Author Organization Department of [facility] rs Address [address] [place] [address] Support Name Relationship Address Phone SIRIA THOMPSON Unavailable [address], [place] [address] JANEY LOPEZ Unavailable [address] [place] [address] [facility], Unavailable [address] [facility] [place], [place] [address] Insurance Providers: All historical and current Section [...] MEDICARE MEDICARE PART Sep 26, PART A [id number] 800 DONNA ALMANZAR (WNR) (M) A 2012 [id number] [phone] JUAN LANDAVERDE MEDICARE MEDICARE PART Sep 26, PART B [id number] 800 DONNA ALMANZAR (WNR) (M) B 2012 [id number] [phone] JUAN Selected Encounter This section includes the information on record at [place] for the Encounter. Date/Time Encounter Type Encounter Description Reason Provider Source May 01, 2021 12:00 Outpatient Encounter ADMIN ROBBI ROSADO AM (SREECT) IHE Encounter Template Text not used by [...] 20 appointments. The data comes from all [place] treatment facilities. Appointment Date/Time Appointment Type Appointment Facili ty Name Aug 21, 2021 01:00 PM AMBULATORY - PSYCHIATRY [facility] Oct 04, 2021 02:00 PM AMBULATORY - MEDICINE [facility] Oct 18, 2021 01:00 PM AMBULATORY - PSYCHIATRY [facility] Social History: Smoking Status (Most current) and Tobacco Use (All prior to encounter date) This section includes the most current, and the historical, smoking and tobacco-related health factors from the [facility] where the Encounter took place.Current Smoking Status This section includes the most current smoking, or tobacco-related health factor, from the [place] facility where the Encounter took place. Date/Time Current Smoking Status Comment Facility Jul 09, 2018 08:58 AM VA-TOBACCO FORMER USER [facility] Tobacco Use History This section includes a history of the smoking, or tobacco- related health factors, that were collected on or before the date of the Encounter. The data comes from the [place] facility where the Encounter took place. Date/Time Smoking Status/Tobacco Use Comment [facility] Jul 09, 2018 08:58 AM VA-TOBACCO QUIT 15 YRS OR MORE [facility] Jul 18, 2017 09:58 AM FORMER TOBACCO USER 7Y OR GREATER [facility] Aug 14, 2016 10:59 AM FORMER TOBACCO USER 7Y OR GREATER [facility] Jun 29, 2015 02:03 PM FORMER TOBACCO USER 7Y OR GREATER [facility] Jan 06, 2014 03:04 PM FORMER TOBACCO USER 7Y OR GREATER [facility] Jan 04, 2012 08:36 AM FORMER TOBACCO USER 7Y OR GREATER [facility] Encounter Notes: All associated encounter notes This section contains the clinical notes associated to the Encounter. Date/Time Encounter Note(s) Provider Source May 01, 2021 12:00 AM ADVANCE DIRECTIVE: MYLENE MONTANA [facility] LOCAL TITLE: PATIENT RECORD FLAG CATEGORY II - [place] STANDARD TITLE: ADVANCE DIRECTIVE DATE OF NOTE: MAY 01, 2021 ENTRY DATE: JAN 16 022@12:03:02 AUTHOR: MYLENE MONTANA COSIGNER: URGENCY: STATUS: COMPLETED VistA Imaging - Scanned Document /pablo/ MYLENE OMNTANA FILE ROOM AND R D ENGINEER Signed: 01/16/2022 12:03 May 01, 2021 12:00 AM [facility] T[facility]: PATIENT RECORD FLAG CATEGORY II - [place] STANDARD TITLE: ADVANCE DIRECTIVE DATE OF NOTE: MAY 01, 2021 ENTRY DATE: JAN 26@12:02:31 AUTHOR: MYLENE MONTANA EXP COSIGNER: URGENCY: STATUS: COMPLETED VistA Imaging - Scanned Document /pablo/ MYLENE MONTANA FILE ROOM AND R D ENGINEER Signed: 01/26/2022 12:02
--- OUTSIDE RECORDS SUMMARY | 2022-03-13 16:25 | XMS_ITS | Encounter Summary ---
:1945 Author Organization Department of [facility] rs Address [address] [place] [address] Support Name Relationship Address Phone SIRIA THOMPSON Unavailable [address], [place] [address] JANEY LOPEZ Unavailable [address] [place] [address] [facility], Unavailable [address] [facility] [place] [place] [address] Insurance Providers: All historical and current Section [...] MEDICARE MEDICARE PART Sep 26, PART A [id number] 800 DONNA ALMANZAR (WNR) (M) A 2012 [id number] [phone] JUAN LANDAVERDE MEDICARE MEDICARE PART Sep 26, PART B [id number] 800 DONNA ALMANZAR (WNR) (M) B 2012 [id number] [phone] JUAN LANDAVERDE Selected Encounter This section includes the information on record at [place] for the Encounter. Date/Time Encounter Type Encounter Description Reason Provider Source Feb 09, 2022 01:19 Outpatient Encounter EVENT (HISTORICAL) PM IHE Encounter Template Text not used by [place] Plan of Treatment: Future Appointments (+ 6 [...] 20 appointments. The data comes from all [facility]. Appointment Date/Time Appointment Type Appointment Facili ty Name Apr 11, 2022 11:00 AM AMBULATORY - MEDICINE [facility] Apr 30, 2022 10:30 AM AMBULATORY - PSYCHIATRY [facility] Social History: Smoking Status (Most current) and Tobacco Use (All prior to encounter date) This section includes the most current, and the historical, smoking and tobacco-related health factors from the [facility] where the Encounter took place.Current Smoking Status This section includes the most current smoking, or tobacco-related health factor, from the [facility] where the Encounter took place. Date/Time Current Smoking Status Comment Facility Aug 21, 2021 01:00 PM UT-TOBACCO FORMER USER [facility] Tobacco Use History This section includes a history of the smoking, or tobacco- related health factors, that were collected on or before the date of the Encounter. The data comes from the [facility] where the Encounter took place. Date/Time Smoking Status/Tobacco Use Comment Facil it Aug 21, 2021 01:00 PM VA-TOBACCO QUIT 15 YRS OR MORE [facility] Jul 09, 2018 08:58 AM VA-TOBACCO FORMER USER [facility] Jul 09, 2018 08:58 AM [place]-TOBACCO QUIT 15 YRS OR MORE [facility] Jul 18, 2017 09:58 AM FORMER TOBACCO USER 7Y OR GREATER [facility] Aug 14, 2016 10:59 AM FORMER TOBACCO USER 7Y OR GREATER [facility] Jun 29, 2015 02:03 PM FORMER TOBACCO USER 7Y OR GREATER [facility] Jan 06, 2014 03:04 PM FORMER TOBACCO USER 7Y OR GREATER [facility] Jan 04, 2012 08:36 AM FORMER TOBACCO USER 7Y OR GREATER [facility] Radiology Reports: +/- 30 days of [...] the Encounter. The data comes from all [facility]. Date/Time Radiology Report Provider Source Jan 17, 2022 12:17 PM KNEE LEFT 4 VIEWS: LYNNE MARTÍNEZ [facility] JUAN THOMPSON [id number] -1945 M Exm Date: JAN 17, 2022@12:17 Req Phys: MAI MORALEZ Pat Loc: [facility] APACT L RES 0 2 WH 4F (Req' Img Loc: MAIN X-RAY Service: Unknown (Case [id number] COMPLETE) KNEE LEFT 4 VIEWS (RAD Detai led) CPT:34487 Reason for Study: knee pain Clinical History: [facility] IS NOT under investigation for COVID-19 or is COVID-19 negative knee pain Report Status: Verified Date Reported: JAN 17, 2022 Date Verified: JAN 17, 2022 Hospital Monitor E-Sig:/ES/LYNNE MARTÍNEZ DO Report: EXAMINATION: KNEE LEFT [...] Primary Interpreting Staff: LYNNE MARTÍNEZ DO, RADIOLOGIST (Hospital Monitor) /DDS Jan 17, 2022 12:17 PM KNEE RIGHT 4 VIEWS: LYNNE MARTÍNEZ [facility] JUAN THOMPSON [id number] -1945 M Exm Date: JAN 17, 2022@12:17 Req Phys: MAI MORALEZ Pat Loc: [facility] APACT L RES 0 2 WH 4F (Req' Img Loc: MAIN X-RAY Service: Unknown (Case [id number] COMPLETE) KNEE RIGHT 4 VIEWS (HETAL guerra) CPT:51765 Reason for Study: knee pain Clinical History: [facility] IS NOT under investigation for COVID-19 or is COVID-19 negative knee pain Report Status: Verified Date Reported: JAN 17, 2022 Date Verified: JAN 17, 2022 Hospital Monitor E-Sig:/ES/LYNNE MARTÍNEZ DO Report: EXAMINATION: KNEE LEFT [...] Primary Interpreting Staff: LYNNE MARTÍNEZ DO, RADIOLOGIST (Hospital Monitor) /DDS
--- OUTSIDE RECORDS SUMMARY | 2022-03-13 16:25 | XMS_ITS | Encounter Summary ---
:1945 Author Organization Department of [facility] rs Address [address] [place] [address] Support Name Relationship Address Phone SIRIA THOMPSON Unavailable [address] [place] [phone] [place] [address] JANEY LOPEZ Unavailable [address] [place] [address] [facility], Unavailable [address] [facility] [place], [place] [address] Insurance Providers: All historical and current [...] MEDICARE MEDICARE PART Sep 26, PART A [id number] DONNA HUANG YOHAN (WNR) (M) A 2012 [id number] [phone] JUAN LANDAVERDE MEDICARE MEDICARE PART Sep 26, PART B [id number] DONNA SAL ALMANZAR (WNR) (M) B 2012 [id number] [phone] JUAN LANDAVERDE Selected Encounter This section includes the information on record at [place] for the Encounter. Date/Time Encounter Type Encounter Reason Provider Source Description Feb 09, 2022 OFFICE ORTHO/JOINT SURG ICD-10-CM M17.0 NEFTALY STEPHENSON 01:00 PM CONSULTATION Bilateral primary H osteoarthritis of knee with Provider Comments: Bilateral primary osteoarthritis of knee IHE Encounter Template Text not used by [place] Assessments - Encounter Diagnoses This section includes the primary and secondary diagnoses documented for the Encounter. Date/Time Primary/Secondary Diagnosis Name Provider Source Diagnosis Feb 09, 2022 PRIMARY Bilateral primary NEFTALY STEPHENSON IS [facility] 01:30 PM osteoarthritis of [facility] knee Plan of Treatment: Future Appointments (+ 6 months) and Future Tests (+/- 45 days) The Plan of Treatment section includes future care activities for the patient [facility] [place] [facility] This section includes future appointments and future orders which are active, pending orscheduled.Future Appointments This section includes appointments that were scheduled to occur 6 months from the date of the Encounter, up to a maximum of 20 appointments. The data comes from all [place] treatment facilities. Appointment Date/Time Appointment Type Appointment Facili ty Name Apr 11, 2022 11:00 AM AMBULATORY - MEDICINE [facility] Apr 30, 2022 10:30 AM AMBULATORY - PSYCHIATRY [facility] Social History: Smoking Status (Most current) and Tobacco Use (All prior to encounter date) This section includes the most current, and the historical, smoking and tobacco-related health factors from the [place] facility where the Encounter took place.Current Smoking Status This section includes the most current smoking, or tobacco-related health factor, from the [place] facility where the Encounter took place. Date/Time Current Smoking Status Comment Facility Aug 21, 2021 01:00 PM VA-TOBACCO FORMER USER [facility] Tobacco Use History This section includes a history of the smoking, or tobacco- related health factors, that were collected on or before the date of the Encounter. The data comes from the [place] facility where the Encounter took place. Date/Time Smoking Status/Tobacco Use Comment [facility] Aug 21, 2021 01:00 PM VA-TOBACCO QUIT 15 YRS OR MORE [facility] Jul 09, 2018 08:58 AM VA-TOBACCO FORMER USER [facility] Jul 09, 2018 08:58 AM VA-TOBACCO QUIT 15 YRS OR MORE [facility] Jul 18, 2017 09:58 AM FORMER TOBACCO USER 7Y OR GREATER [facility] Aug 14, 2016 10:59 AM FORMER TOBACCO USER 7Y OR GREATER [facility] Jun 29, 2015 02:03 PM FORMER TOBACCO USER 7Y OR GREATER [facility] Jan 06, 2014 03:04 PM FORMER TOBACCO USER 7Y OR GREATER [facility] Jan 04, 2012 08:36 AM FORMER TOBACCO USER 7Y OR GREATER [facility] Radiology Reports: +/- 30 days of [...] the Encounter. The data comes from all [place] treatment facilities. Date/Time Radiology Report Provider Source Jan 17, 2022 12:17 PM KNEE LEFT 4 VIEWS: [facility] JUAN THOMPSON [id number] -1945 M Exm Date: JAN 17, 2022@12:17 Req Phys: MAI MORALEZ F Pat Loc: [facility] APACT L RES 0 2 WH 4F (Req' Img Loc: MAIN X-RAY Service: Unknown (Case [id number] COMPLETE) KNEE LEFT 4 VIEWS (HETAL Angulo led) CPT:58193 Reason for Study: knee pain Clinical History: [facility] IS NOT under investigation for COVID-19 or is COVID-19 negative knee pain Report Status: Verified Date Reported: JAN 17, 2022 Date Verified: JAN 17, 2022 Weigh Tank Operator E-Sig:/ES/LYNNE MARTÍNEZ DO Report: EXAMINATION: KNEE LEFT [...] Primary Interpreting Staff: LYNNE MARTÍNEZ DO, RADIOLOGIST (Weigh Tank Operator) /DDS Jan 17, 2022 12:17 PM KNEE RIGHT 4 VIEWS: LYNNE MARTÍNEZ [facility] JUAN THOMPSON [id number] -1945 M Exm Date: JAN 17, 2022@12:17 Req Phys: MORALEZ,MAI F Pat Loc: [facility] L RES 0 2 WH 4F (Req' Img Loc: MAIN X-RAY Service: Unknown (Case [id number] COMPLETE) KNEE RIGHT 4 VIEWS (RAD Deta iled) CPT:41964 Reason for Study: knee pain Clinical History: [facility] IS NOT under investigation for COVID-19 or is COVID-19 negative knee pain Report Status: Verified Date Reported: JAN 17, 2022 Date Verified: JAN 17, 2022 Weigh Tank Operator E-Sig:/ES/LYNNE MARTÍNEZ DO Report: EXAMINATION: KNEE LEFT [...] Primary Interpreting Staff: LYNNE MARTÍNEZ DO, RADIOLOGIST (Weigh Tank Operator) /DDS Encounter Notes: All associated encounter notes This section contains the clinical notes associated to the Encounter. Date/Time Encounter Note(s) Provider Source Feb 09, 2022 01:30 PM ORTHOPEDIC SURGERY CONSULT: NEFTALY STEPHENSON [facility] LOCAL TITLE: ORTHOPEDIC CONSULT STANDARD TITLE: ORTHOPEDIC SURGERY CONSULT DATE OF NOTE: FEB 09, 2022@13:30 ENTRY DATE: FEB 09, 2022@13:30:37 AUTHOR: NEFTALY STEPHENSON EXP COSIGNER: URGENCY: STATUS: COMPLETED CHIEF COMPLAINT: Bilateral knee pain. HPI: The patient has been dealing with bilateral knee pain with an onset starting about 3 years ago. However, the patient started having significant pain about a month ago. He was seen in [facility] emergency Room related to his pain. Distribution of the pain is on the medial and go ing down his tibia. Bilaterally. The patient describes his pain as a dull ache that increases intensity throughout the day. MEDICAL HISTORY/ACTIVE PROBLEMS: Active Problems: Active problems - Computerized Problem List is t source for the followin. Essential hypertension (SNOMED CT 72392059) 2. Major depressive disorder (SNOMED CT 0165768 00) 3. Generalized anxiety disorder (SNOMED CT 2189 7009) 4. Primary Obesity 5. Bronchiectasis (SNOMED CT 63857943) 6. Gastroesophageal Reflux Disorder * 7. Bariatric Surgery Status 8. Cataracts (SNOMED CT 41074998) 9. Hypermetropia/Hyperopia 10. Astigmatism, Unspec 11. Presbyopia 12. Atrial fibrillation (SNOMED CT 46631607) 13. Varicose veins of lower extremity 14. Compulsive gambling 15. Bipolar disorder (SNOMED CT 55627122) 16. Mild cognitive disorder 17. Type 2 diabetes mellitus 18. Long-term current use of anticoagulant ALLERGIES: SULFAMETHOXAZOLE (Feb 07, 2022) Active Outpatient Medications (including Supplie s): Active [...] TO PREVENT AND/OR TREAT BLOOD CLOTS 4) ARIPIPRAZOLE 30MG TAB TAKE ONE-HALF TABLET BY MOUTH ACTIVE EVERY DAY 5) ATORVASTATIN CALCIUM 20MG TAB TAKE ONE-HALF T ABLET BY ACTIVE MOUTH AT BEDTIME 6) BUPROPION HCL 150MG 24HR SA TAB TAKE ONE TABL ET BY ACTIVE MOUTH EVERY MORNING 7) CALCIUM CARB 500MG (CA 200MG) CHEW TAB CHEW O NE ACTIVE TABLET BY MOUTH TWICE A DAY 8) CHOLECALCIF 25MCG (D3-1,000UNIT) TAB TAKE ONE TABLET ACTIVE (S) BY MOUTH EVERY DAY 9) CYANOCOBALAMIN 1000MCG TAB TAKE ONE TABLET BY MOUTH ACTIVE EVERY DAY 10) DICLOFENAC NA 1% TOP GEL APPLY 2 GRAMS TOPIC ALLY FOUR ACTIVE TIMES A DAY NEEDED TO AFFECTED AREA FOR PAIN . *USE DOSE CARD IN BOX TO MEASURE DOSE. MAX 32 G LINDSEY PER DAY. 11) EMPAGLIFLOZIN 25MG TAB TAKE ONE-HALF TABLET BY MOUTH ACTIVE EVERY MORNING 12) INSULIN,GLARGINE 100 UNT/ML 3ML SOLOSTAR INJ ECT 12 ACTIVE UNITS UNDER THE SKIN EVERY DAY 13) LANCET,SOFTCLIX USE 1 LANCET DIRECTED *DI SPOSE ACTIVE OF IN A HARD-PLASTIC CONTAINER WITH A SCREW-ON LIDCONTACT GARBAGE HAULER FOR PROPER DISPOSAL 14) MAGNESIUM OXIDE 400MG TAB TAKE ONE TABLET BY MOUTH ACTIVE EVERY DAY 15) METOPROLOL SUCCINATE 50MG SA TAB TAKE ONE TA BLET BY ACTIVE MOUTH EVERY DAY FOR HEART AND BLOOD PRESSURE 16) MULTIVIT/OPHTH AREDS2/LUTE/ZEAX CAP/TAB TAKE 1 ACTIVE CAP/TAB BY MOUTH TWICE A DAY WITH MEALS 17) MULTIVITAMIN CAP/TAB TAKE 1 TABLET BY MOUTH EVERY DAY ACTIVE 18) NEEDLE,PEN 31G,8MM USE 1 NEEDLE, NEEDLE, PEN 31G 8MM ACTIVE TOPICALLY DIRECTED *DISPOSE OF IN A HARD-ARIAN STIC CONTAINER WITH A SCREW-ON LID CONTACT GARBAGE HAULER FOR PROPER DISPOSAL 19) OMEPRAZOLE 20MG EC CAP TAKE TWO CAPSULES BY MOUTH ACTIVE EVERY DAY ON AN EMPTY STOMACH, AT LEAST 30 ELIF TIMO PRIOR TO A MEAL FOR REFRACTORY GERD 20) QUETIAPINE FUMARATE 25MG TAB TAKE ONE TO THR EE TABS ACTIVE BY MOUTH AT BEDTIME FOR SLEEP 21) VENLAFAXINE HCL 150MG 24HR SA CAP TAKE ONE C APSULE BY ACTIVE MOUTH EVERY DAY Pending Outpatient Medications Status 1) DICLOFENAC NA 1% TOP GEL APPLY 4 GRAMS TOPICA LLY FOUR PENDING TIMES A DAY NEEDED TO AFFECTED AREA FOR PAIN . *USE DOSE CARD IN BOX TO MEASURE DOSE. MAX 32 G LINDSEY PER DAY. 22 Total Medications SOCIAL HISTORY: Non-smoker REVIEW OF SYSTEMS: Constitutional: denies, fever Musculoskeletal: joint pain knees bilateral PHYSICAL EXAM: General Appearance: Frail Musculoskeletal: Exam of the right knee shows she is stable to varus and valgus stress. Anterior/posterior drawers test is negat jeff. He has pain palpating on the medial knee joint line. He has a tough time fully extending his knee. Flexion is to about 100 degrees. Patella trackin g is normal. Imaging: X-ray of the knees: Left knee: No acute fracture or dislocation. No suspicious bone lesion. Increased severe narrowing of the medial compart ment with minimal genu varum. Associated bony ridging along the medial joint l ine. Mild osteophytic lipping in the lateral compartment. Moderate patellofemo ral joint degenerative change with joint space narrowing and osteophyte format ion, slightly increased from prior. No suprapatellar join t effusion. There is atherosclerotic calcification. Right knee: No acute fracture or dislocation. No suspicious bone lesion. Moderate narrowing of the medial compart ment with bony ridging along the joint line. Minimal genu varum. Mild osteophyt ic lipping in the lateral compartment. Moderate patellofemoral join t degenerative change with joint space narrowing and osteophyte formation. Small enthesophyte at the superior pole the patella. No significant supra patellar joint effusion. There is atherosclerotic calcification. Diagnosis/Treatment Plan: Severe osteoarthritis of the knees bilateral. I reviewed the x-rays with the patient showing o steoarthritis in the medial femoral-tibial joint space. To help his pain, I went over different options to include diclofenac gel. He does use this. I pres cribed him some more. I did a cortisone injection today. Hopefully he will get good benefit from this. I did talk to him about a total knee arthroplasty. We will see how much benefit he gets from the therapies. The patient can follow- up as needed. /pablo/ NEFTALY STEPHENSON NP NURSE PRACTITIONER Signed: 02/09/2022 13:35 Feb 09, 2022 01:28 PM ORTHOPEDIC SURGERY PROCEDURE NOTE: NEFTALY STEPHENSON [facility] LOCAL TITLE: ORTHOPEDIC PROCEDURE NOTE STANDARD TITLE: ORTHOPEDIC SURGERY PROCEDURE NOT E DATE OF NOTE: FEB 09, 2022@13:28 ENTRY DATE: FEB 09, 2022@13:28:56 AUTHOR: NEFTALY STEPHENSON EXP COSIGNER: URGENCY: STATUS: COMPLETED Orthopedic Procedure Note *Patient was identified by using full name and s ocial security number. Procedure(s) to be performed was(were) discussed with patient and verified to be correct. Patient and/or family pr ovided with appropriate education and patient and/or family acknowledged understanding. *Written informed consent obtained from the dionte ent or surrogate including risks, benefits and alternatives. *Site Marking: Site marked (as indicated by policy) *Time Out Immediately prior to the procedure a time out was performed correct procedure and correct site. Imaging data were verified and confirmed. Patient positioning was verified prior to proced ure. Diagnosis: Arthritis Patient presents for: A single injection to the affected joint(s) After sterile preparation patient was injected w ith: Bupivacaine 9 mls Depomedrol 40 mg/ml 1 ml Injected into: Knee Side: Both Complications: None Pain: no change in pain *This injection is intended to provide temporary relief and should serve as only one part of an overall musculoskeletal c are plan which may also include (check any of the following): Activity modification Home Exercise Physical/Occupational therapy Next step in care: Discharge to PCP for surveillance /pablo/ NEFTALY STEPHENSON NP NURSE PRACTITIONER Signed: 02/09/2022 13:30
== END 2022-01-31 13:00 | disposition home or self-care (01) ==
LOC: AMB 03-13 16:13
PROVIDERS: PCP Family Medicine; Visit Provider Emergency Medicine Emergency Medical Services
DX: R51.9 Headache, unspecified (principal); M43.6 Torticollis
CPT/HCPCS: A0425; A0429

== ENCOUNTER 2022-01-31 13:17 | Emergency (ER) | payer OTHER, MEDICARE, MEDICAID, SELFPAY ==
[2022-01-31 13:32] VITALS: BP 111/76; PULSE 100; RESP 18; TEMP 37.1; O2SAT 98; BMI 30.9
--- NOTE | 2022-01-31 13:51 | CRLHL7_ITS ---
For Patients: As a result of the Cures Act, medical imaging exams and procedure reports are released immediately into your electronic medical record. You may view this report before your referring provider. If you have questions, please contact your health care provider. INDICATION: Headache and stiff neck TECHNIQUE: CT cervical spine without contrast. COMPARISON: None FINDINGS: Vertebral alignment: Alignment is normal. Vertebrae: There are no fractures or suspicious bony lesions. Discs and facet joints: Degenerative changes C5 through C7. Extraspinal findings: Prevertebral soft tissues, visualized airway, and visualized lungs are unremarkable. IMPRESSION: No acute findings. Degenerative changes C5 through C7. Dictated by Jason Parada MD @ 01/31/2022 3:48:52 PM Please note that all CT scans at this facility use dose modulation, iterative reconstruction, and/or weight-based dosing when appropriate to reduce radiation dose to as low as reasonably achievable. Dictated by: Jason Parada MD @ 01/31/2022 15:48:59 (Electronically Signed)
--- NOTE | 2022-01-31 13:51 | CRLHL7_ITS ---
For Patients: As a result of the Century Cures Act, medical imaging exams and procedure reports are released immediately into your electronic medical record. You may view this report before your referring provider. If you have questions, please contact your health care provider. INDICATION: Headache and stiff neck TECHNIQUE: CT head without contrast. COMPARISON: 11/19/2020 FINDINGS: CSF spaces: Within normal limits for age. Brain parenchyma: The chaney-white differentiation is normal. No sign of mass, hemorrhage, or midline shift. Skull base and calvarium: The visualized paranasal sinuses and mastoid air cells demonstrate no acute or significant findings. The visualized orbits are grossly unremarkable. No skull fractures. IMPRESSION: No acute intracranial abnormalities. Normal aeration of paranasal sinuses and mastoid air cells. Dictated by Jason Parada MD @ 01/31/2022 3:53:21 PM Please note that all CT scans at this facility use dose modulation, iterative reconstruction, and/or weight-based dosing when appropriate to reduce radiation dose to as low as reasonably achievable. Dictated by: Jason Parada MD @ 01/31/2022 15:53:28 (Electronically Signed)
--- NOTE | 2022-01-31 13:53 | ED.GENADULT ---
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 His headache and his back pain have improved he still continued continues to have some neck stiffness. He has limited range of motion of his neck to rotation lateral bending and flexion extension. He denies trauma to his neck, denies fever, denies other symptoms other than he has vomited a couple of times at night. He thought this might be due to his reflux and he got increasing doses of PPI. He doctors through the OR in [place]. He has no chest pain, shortness of breath, fevers, chills, abdominal pain, weakness, and no trauma as mention. He reports the pain in his neck is moderate, worse with movement, denies radicular symptoms her neurologic come changes in his arms or legs. He has had no skin rashes, no insect bites, no travel. The patient has insulin-dependent diabetes, atrial fibrillation, hypercholesterolemia, and depression. His medications are including apixaban aripiprazole atorvastatin bupropion Wellbutrin insulin/Lantus type, metoprolol. Related Data Home Medications Medication Instructions Recorded Confirmed apixaban 5 mg tablet (Eliquis) mg 01/31/22 aripiprazole 15 mg tablet mg 01/31/22 atorvastatin 10 mg tablet mg 01/31/22 bupropion HCl 150 mg 24 hr tablet, mg PO 01/31/22 extended release insulin aspar prot-insulin aspart SUBCUT 01/31/22 100 unit/mL (70-30) subcutaneous pen (Novolog Mix 70-30FlexPen U-100) insulin aspar prt-insulin aspart SUBCUT 01/31/22 100 unit/mL (70-30) subcutaneous soln (Novolog Mix 70-30 U-100 Insuln) metoprolol succinate 50 mg mg PO 01/31/22 tablet,extended release 24 hr Previous Rx's Medication Instructions Recorded methylprednisolone 4 mg tablets in 4 mg PO DAILY #21 ea 01/31/22 a dose pack (Medrol (Rizwan)) Allergies Allergy/AdvReac Type Severity Reaction Status Date / Time No Known Drug Allergies Allergy Verified 01/31/22 13:32 Review of Systems Status of ROS: Reports: 10 or more systems reviewed and unremarkable except as noted in History and below [facility] Social History Smoking Status: Unknown if ever smoked Do you use any of these nicotine containing products: None How often do you have a drink containing alcohol: never AUDIT-C Alcohol total score: 0 Non-prescribed substance use: denies use Exam Narrative: Exam Narrative: Patient is alert orient x3, noncyanotic, talks in even and unlabored sentences Vital signs are unremarkable, he is afebrile Neck is shows very limited range of motion, he is tender along his cervical strap muscles, no redness no swelling Rest of HEENT is unremarkable no facial asymmetry, no scleral icterus no skin changes or rashes. Neck are Chest is clear Heart: Pulse is irregular Abdomen benign Neurologic nonfocal in upper lower extremities Skin is unremarkable warm and dry Const: Vital Signs, click to edit/add: Vital Signs - 24 hr 01/31/22 13:32 Temperature 98.7 F Pulse Rate [Right Pulse Oximeter] 100 Respiratory Rate 18 Blood Pressure [Le ft Upper Arm] 111/76 Pulse Oximetry 98 Course Course Hospital Course: Given the patient's neck pain headache that has now improved I would recommend he get a head and neck CT to make sure he does not have a jumped facet, intracranial issue. He will also get laboratory studies. Of note is he has no temporal artery area pain no pain with mastication. Vital Signs Vital signs: Initial Vital Signs Temperature 98.7 F 01/31/22 13:32 Temperature Source Temporal Artery Scan 01/31/22 13:32 Pulse Rate 100 01/31/22 13:32 Respiratory Rate 18 01/31/22 13:32 Blood Pressure 111/76 01/31/22 13:32 Blood Pressure Mean 87 01/31/22 13:32 Blood Pressure Position Sitting 01/31/22 13:32 Pulse Oximetry 98 01/31/22 13:32 Oxygen Delivery Method 01/31/22 13:32 Vital Signs Temperature 98.7 F 01/31/22 13:32 Pulse Rate 100 01/31/22 13:32 Respiratory Rate 18 01/31/22 13:32 Blood Pressure 111/76 01/31/22 13:32 Pulse Oximetry 98 01/31/22 13:32 Temperature 98.7 F 01/31/22 13:32 Pulse Rate 100 01/31/22 13:32 Respiratory Rate 18 01/31/22 13:32 Blood Pressure 111/76 01/31/22 13:32 Pulse Oximetry 98 01/31/22 13:32 Medical Decision Making MDM Narrative Medical decision making narrative: The patient has a negative head and neck CT scan. His laboratory studies look reassuring. I am going to give him a Medrol Dosepak to take for anti-inflammatory effect, could also take some ibuprofen to continue. Recheck with his regular doctor within the next few days, may benefit from some physical therapy, or more advanced imaging such as MRI scanning. He does have degenerative changes in his C5 through C7 level. However he does not have any radicular symptoms at present. Lab Data Labs: Lab Results 01/31/22 01/31/22 Range/Units 14:03 14:03 WBC 7.87 (4.50-11.00) K/uL RBC 4.73 (4.30-5.90) m/uL Hgb 12.6 L (13.5-17.5) gm/dL Hct 39.5 (37.0-53.0) % MCV 84 (80-100) fL MCH 27 (26-34) pg MCHC 32 (32-36) gm/dL RDW Coeff of Maurice 14.7 (11.5-15.5) % Plt Count 340 (140-440) K/uL Neut % (Auto) 62.1 (42.0-72.0) % Lymph % (Auto) 23.0 (20-44) % Morehouse % (Auto) 11.7 H (0.0-11.0) % Eos % (Auto) 2.7 (0.0-7.0) % Baso % (Auto) 0.4 (0.0-3.0) % Neut # (Auto) 4.89 (1.7-7.0) K/uL Lymph # (Auto) 1.81 (0.90-2.90) K/uL Morehouse # (Auto) 0.90 (0.00-0.90) K/UL Eos # (Auto) 0.21 (0.00-0.50) K/uL Baso # (Auto) 0.03 (0.00-0.30) K/uL Abs Immat Gran (auto) 0.01 (0.00-0.30) K/uL Sodium 138 (135-149) mmol/L Potassium 4.2 (3.6-5.1) mmol/L Chloride 103 (96-114) mmol/L Carbon Dioxide 28 (20-32) mmol/L BUN 22 (7-30) mg/dL Creatinine 1.2 (0.5-1.5) mg/dL Estimated Creat Clear 52.25 Glucose 270 H (60-115) mg/dL Calcium 9.2 (8.4-10.6) mg/dL C-Reactive Protein 4.1 H (0.5-1.0) mg/dL Discharge Plan Discharge Clinical Impression: Acute neck pain Patient Disposition: Home w/ Parent or Adult Condition: Stable Additional Instructions: Light activity, rest, ice to the neck as tolerated, Medrol Dosepak, Advil as needed, recheck with regular doctor within the next 2 days, certainly return here problems concerns difficulty . Activity Level: Light activity Discharge Diet: Regular Prescriptions: New methylprednisolone [Medrol (Rizwan)] 4 mg tablets,dose pack 4 mg PO DAILY Qty: 21 0RF No Action atorvastatin 10 mg tablet 0RF metoprolol succinate 50 mg tablet extended release 24 hr PO 0RF insulin asp prt-insulin aspart [Novolog Mix 70-30FlexPen U-100] 100 unit/mL (70-30) insulin pen SUBCUT 0RF Label Comments: INJECT 20 UNITS EVERY MORNING AND 4 AT MEAL TIME aripiprazole 15 mg tablet 0RF insulin asp prt-insulin aspart [Novolog Mix 70-30 U-100 Insuln] 100 unit/mL (70-30) solution SUBCUT 0RF bupropion HCl 150 mg tablet extended release 24 hr PO 0RF Eliquis 5 mg tablet 0RF Follow Up/Referrals: Nelson Lowe MD [Primary Care Provider] - Stand Alone Forms: MyHealth Info Instructions
[2022-01-31 14:13] LABS: Basophils Absolute Auto 0.03 K/uL (0.00-0.30); Basophils Percent Auto 0.4 % (0.0-3.0); Eosinophils Absolute Auto 0.21 K/uL (0.00-0.50); Eosinophils Percent Auto 2.7 % (0.0-7.0); Hematocrit 39.5 % (37.0-53.0); Hemoglobin* 12.6 gm/dL (13.5-17.5); Immature Granulocytes Abs Auto 0.01 K/uL (0.00-0.30); Lymphocytes Absolute Auto 1.81 K/uL (0.90-2.90); Mean Corpuscular HGB Conc 32 gm/dL (32-36); Mean Corpuscular Hemoglobin 27 pg (26-34); Mean Corpuscular Volume 84 fL (80-100); Monocytes Percent Auto 11.7 % (0.0-11.0); Neutrophils Absolute Auto 4.89 K/uL (1.7-7.0); Neutrophils Percent Auto 62.1 % (42.0-72.0); Platelet Count* 340 K/uL (140-440); RDW Coefficient of Variation % 14.7 % (11.5-15.5); Red Blood Count 4.73 m/uL (4.30-5.90); White Blood Count* 7.87 K/uL (4.50-11.00)
[2022-01-31 14:38] LABS: Chloride* 103 mmol/L (96-114); Potassium* 4.2 mmol/L (3.6-5.1); Sodium* 138 mmol/L (135-149)
[2022-01-31 14:40] LABS: Slide Review Reflex No
[2022-01-31 14:41] LABS: Creatinine* 1.2 mg/dL (0.5-1.5); Est. Creatinine Clearance* 52.25; Estimated Glomerular Filt Rate 63.46
[2022-01-31 14:42] LABS: Blood Urea Nitrogen* 22 mg/dL (7-30); Calcium* 9.2 mg/dL (8.4-10.6); Carbon Dioxide* 28 mmol/L (20-32); Glucose* 270 mg/dL (60-115)
[2022-01-31 14:45] LABS: C Reactive Protein* 4.1 mg/dL (0.5-1.0)
== END 2022-01-31 16:11 ==
PROVIDERS: Emergency Provider Family Medicine; PCP Family Medicine
DX: M54.2 Cervicalgia (principal)
CPT/HCPCS: 36415; 70450; 72125; 80048; 85025; 86140; 99283; 99284

== ENCOUNTER 2022-12-06 17:45 | Emergency (ER) | payer MEDICARE, MEDICAID, SELFPAY ==
[2022-12-06 17:53] VITALS: BP 125/79; PULSE 89; RESP 18; TEMP 37.5; O2SAT 97; BMI 31.9
--- NOTE | 2022-12-06 18:23 | ED_ITS ---
HPI - General Adult General Chief complaint: Fever Stated complaint: Fever of 103.6 Time Seen by Provider: 12/06/22 18:17 History of Present Illness HPI narrative: pt here with dizziness and weakness, fever at home 103.6, voiding often, has a leaky basement 77-year-old man presenting to the emergency department with fever measured at home reportedly to 103.6. He arrives afebrile 99.5. His bowels old thakur this discrepancy. It sounds though as if he has taken 1500 mg of acetaminophen at some point earlier today. Yesterday evening evening he had a trouble getting up from a chair he said he was just weak. Subsequently has been more woozy. With movement it sounds as though he is more so not exactly dizziness described. He is short of breath with exertion. He has not any chest pain. Does have some abdominal discomfort and notes himself to be constipated but aided recently with some what sounds like senna on other measures. No sense of palpitations. Over the last day has been noting what I believe is describing as urinary frequency with some early void dysuria. Not endorsing sore throat. Underlying history of diabetes treated with insulin. 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 He does feel he needs some IV hydration. He says blood sugars have been in the 150s. Related Data Home Medications Medication Instructions Recorded Confirmed apixaban 5 mg tablet (Eliquis) mg 01/31/22 aripiprazole 15 mg tablet mg 01/31/22 atorvastatin 10 mg tablet mg 01/31/22 bupropion HCl 150 mg 24 hr tablet, mg PO 01/31/22 extended release insulin aspar prot-insulin aspart subcut 01/31/22 100 unit/mL (70-30) subcutaneous pen (Novolog Mix 70-30FlexPen U-100) insulin aspar prt-insulin aspart subcut 01/31/22 100 unit/mL (70-30) subcutaneous soln (Novolog Mix 70-30 U-100 Insuln) metoprolol succinate 50 mg mg PO 01/31/22 tablet,extended release 24 hr Previous Rx's Medication Instructions Recorded methylprednisolone 4 mg tablets in 4 mg PO DAILY #21 ea 01/31/22 a dose pack (Medrol (Rizwan)) Allergies Allergy/AdvReac Type Severity Reaction Status Date / Time No Known Drug Allergies Allergy Verified 01/31/22 13:32 Review of Systems Status of ROS: Reports: 6 or more systems reviewed and unremarkable except as noted in History and below [facility] Social History Smoking Status: Never smoker Do you use any of these nicotine containing products: None Second hand tobacco smoke exposure: No How often do you have a drink containing alcohol: never AUDIT-C Alcohol total score: 0 Non-prescribed substance use: denies use Exam Narrative: Exam Narrative: Pleasant. NAD. I believe he is wearing a left side slipper on his right foot. Oropharynx is moist. Cranial nerves 2-12 to be intact. Not appreciating nystagmus. Head looks to be atraumatic. Lungs with crepitus through the left lung and into bilateral bases. He is not tachypneic nor labored in his breathing. Heart with I think regular rate and rhythm distant. Abdomen is protuberant soft and a little tender in the left mid low abdomen. Lower extremities with 1+ pitting edema. Skin otherwise warm and dry. He notes some rashes thinking that he has got psoriatic arthritis. Const: Vital Signs, click to edit/add: Vital Signs - 24 hr 12/06/22 17:53 12/06/22 20:25 12/06/22 22:07 Temperature 99.5 F 98.6 F 98.9 F Pulse Rate [Right Pulse Oximeter] 89 84 86 Respiratory Rate 18 22 20 Blood Pressure [Ri ght Upper Arm] 125/79 160/75 H 161/78 H Pulse Oximetry 97 96 96 Oxygen Delivery Me thod Room Air Room Air Room Air Documenting provider has reviewed patient's vital signs: yes Course Vital Signs Vital signs: Initial Vital Signs Temperature 99.5 F 12/06/22 17:53 Temperature Source Temporal Artery Scan 12/06/22 17:53 Pulse Rate 89 12/06/22 17:53 Respiratory Rate 18 12/06/22 17:53 Blood Pressure 125/79 12/06/22 17:53 Blood Pressure Mean 94 12/06/22 17:53 Blood Pressure Position Sitting 12/06/22 17:53 Pulse Oximetry 97 12/06/22 17:53 Oxygen Delivery Method Room Air 12/06/22 17:53 Vital Signs Temperature 99.5 F 12/06/22 17:53 Pulse Rate 89 12/06/22 17:53 Respiratory Rate 18 12/06/22 17:53 Blood Pressure 125/79 12/06/22 17:53 Pulse Oximetry 97 12/06/22 17:53 Oxygen Delivery Method Room Air 12/06/22 17:53 Temperature 98.9 F 12/06/22 22:07 Pulse Rate 86 12/06/22 22:07 Respiratory Rate 20 12/06/22 22:07 Blood Pressure 161/78 H 12/06/22 22:07 Pulse Oximetry 96 12/06/22 22:07 Oxygen Delivery Method Room Air 12/06/22 22:07 Medical Decision Making MDM Narrative Medical decision making narrative: At this place screening for source of fever is reported. More concerning given history of diabetes. Will be hydrating. Urine. Chest x-ray given findings on physical exam. Vitals are reassuring at this time of triage Have not been able to obtain urine so far. Does not really appear to be cardiac in origin Chest x-ray by my read looks to have some infiltrative process in the right upper lung. This is not where most crepitus that I heard was on physical exam. IV was initiated received a L of normal saline. White count was elevated at 13.4 as well as a CRP elevated at 14.7. Urinalysis finally obtained without ketones or marked evidence of infection. Ordered for ceftriaxone and azithromycin. Generally well and able to rest sleep in the emergency department. Ambulatory from the ER. See patient discharge plan Lab Data Lab results reviewed: Yes I reviewed the patient's lab results Labs: Lab Results 12/06/22 12/06/22 12/06/22 Range/Units 19:00 19:51 20:20 WBC 13.37 H (4.50-11.00) K/uL RBC 4.34 (4.30-5.90) m/uL Hgb 11.4 L (13.5-17.5) gm/dL Hct 35.9 L (37.0-53.0) % MCV 83 (80-100) fL MCH 26 (26-34) pg MCHC 32 (32-36) gm/dL RDW Coeff of Maurice 16.9 H (11.5-15.5) % Plt Count 241 (140-440) K/uL Neut % (Auto) 76.6 H (42.0-72.0) % Lymph % (Auto) 14.7 L (20-44) % [place]berg % (Auto) 6.9 (0.0-11.0) % Eos % (Auto) 1.6 (0.0-7.0) % Baso % (Auto) 0.1 (0.0-3.0) % Neut # (Auto) 10.20 H (1.7-7.0) K/uL Lymph # (Auto) 2.00 (0.90-2.90) K/uL [place] # (Auto) 0.90 (0.00-0.90) K/UL Eos # (Auto) 0.20 (0.00-0.50) K/uL Baso # (Auto) 0.00 (0.00-0.30) K/uL VBG pH 7.438 H (7.32-7.43) VBG pCO2 46 (40-50) mmHG VBG pO2 31.5 (25-47) mmHG VBG HCO3 31 H (21-28) mmol/L Sodium 137 (135-149) mmol/L Potassium 3.7 (3.6-5.1) mmol/L Chloride 100 (96-114) mmol/L Carbon Dioxide 29 (20-32) mmol/L BUN 20 (7-30) mg/dL Creatinine 1.0 (0.5-1.5) mg/dL Estimated Creat Clear 61.75 Estimated GFR 78 ml/min Glucose 140 H (60-115) mg/dL Lactate 1.1 (0.5-1.9) mmol/L Calcium 8.7 (8.4-10.6) mg/dL C-Reactive Protein 14.7 H (0.5-1.0) mg/dL Urine Color Dark yellow (Yellow) Urine Appearance Clear (Clear) Urine pH 7.0 (5.0-8.5) Ur Specific Anderson 1.015 (1.000-1.030) Urine Protein Negative (Negative) Urine Glucose (UA) Negative (Negative) Urine Ketones Negative (Negative) Urine Blood Negative (Negative) Urine Nitrite Negative (Negative) Urine Bilirubin Negative (Negative) Urine Urobilinogen 2.0 A (0.2-1.0) Ur Leukocyte Esterase Trace A (Negative) Urine RBC 0-2 (0-2) Urine WBC 0-2 (0-5) Ur Squamous Epith Cells Few (None-Few) Urine Bacteria None (None) SARS-CoV-2 (PCR) Negative SARS-CoV-2 (Negative) Influenza Type A (PCR) Negative PCR FLU A (Negative) Influenza Type B (PCR) Negative PCR FLU B (Negative) RSV (PCR) Negative PCR RSV (Negative) Discharge Plan Discharge Clinical Impression: Pneumonia Patient Disposition: Home w/ Parent or Adult Condition: Improved Additional Instructions: Focus on hydration. Watch your blood sugars closely. Be seen/return for increasing persistent shortness of breath, inability to control fever, increasing weakness. Doxycycline from [facility] Prescriptions: No Action atorvastatin 10 mg tablet metoprolol succinate 50 mg tablet extended release 24 hr PO insulin asp prt-insulin aspart [Novolog Mix 70-30FlexPen U-100] 100 unit/mL (70-30) insulin pen SUBCUT Patient Comments: INJECT 20 UNITS EVERY MORNING AND 4 AT MEAL TIME aripiprazole 15 mg tablet insulin asp prt-insulin aspart [Novolog Mix 70-30 U-100 Insuln] 100 unit/mL (70-30) solution SUBCUT bupropion HCl 150 mg tablet extended release 24 hr PO Eliquis 5 mg tablet methylprednisolone [Medrol (Rizwan)] 4 mg tablets,dose pack 4 mg PO DAILY Qty: 21 0RF Follow Up/Referrals: Nelson Lowe MD [Primary Care Provider] - Stand Alone Forms: [email or web address] Info Instructions
--- NOTE | 2022-12-06 18:45 | CRLHL7_ITS ---
For Patients: As a result of the Century Cures Act, medical imaging exams and procedure reports are released immediately into your electronic medical record. You may view this report before your referring provider. If you have questions, please contact your health care provider. INDICATION: Short of breath with exertion TECHNIQUE: Chest 1 view COMPARISON: 11/19/2020 FINDINGS: Parenchymal densities right upper lobe. Lung bases clear. Mediastinum unchanged. Degenerative changes left shoulder. IMPRESSION: Right upper lobe pneumonia Dictated by Jason Cannon MD @ 12/06/2022 7:54:31 PM (Electronically Signed)
[2022-12-06 19:08] LABS: HCO3 VBG 31 mmol/L (21-28); Lactate* 1.1 mmol/L (0.5-1.9); PCO2 VBG 46 mmHG (40-50); PO2 VBG 31.5 mmHG (25-47); pH VBG 7.438 (7.32-7.43)
[2022-12-06] MEDS: 0.9 % SODIUM CHLORIDE 1000 ml 1,000 ML IV (19:08)
[2022-12-06 19:11] LABS: Basophils Percent Auto 0.1 % (0.0-3.0); Eosinophils Percent Auto 1.6 % (0.0-7.0); Hematocrit 35.9 % (37.0-53.0); Hemoglobin* 11.4 gm/dL (13.5-17.5); Immature Granulocytes Pct Auto 0.1 %; Lymphocytes Percent Auto 14.7 % (20-44); Mean Corpuscular HGB Conc 32 gm/dL (32-36); Mean Corpuscular Hemoglobin 26 pg (26-34); Mean Corpuscular Volume 83 fL (80-100); Monocytes Percent Auto 6.9 % (0.0-11.0); Neutrophils Percent Auto 76.6 % (42.0-72.0); Platelet Count* 241 K/uL (140-440); RDW Coefficient of Variation % 16.9 % (11.5-15.5); Red Blood Count 4.34 m/uL (4.30-5.90); White Blood Count* 13.37 K/uL (4.50-11.00)
[2022-12-06 19:27] LABS: Slide Review Reflex No
[2022-12-06 19:34] LABS: Chloride* 100 mmol/L (96-114); Sodium* 137 mmol/L (135-149)
[2022-12-06 19:35] LABS: Potassium* 3.7 mmol/L (3.6-5.1)
[2022-12-06 19:37] LABS: Est. Creatinine Clearance* 61.75; Estimated Glomerular Filt Rate 78 ml/min
[2022-12-06 19:38] LABS: Blood Urea Nitrogen* 20 mg/dL (7-30); Calcium* 8.7 mg/dL (8.4-10.6); Carbon Dioxide* 29 mmol/L (20-32); Glucose* 140 mg/dL (60-115)
[2022-12-06 19:53] LABS: C Reactive Protein* 14.7 mg/dL (0.5-1.0)
[2022-12-06] MEDS: cefTRIAXone 1 GM in 0.9 % SODIUM CHLORIDE Mini-bag 100 ML IVPB (20:20)
[2022-12-06] MEDS: AZITHROMYCIN 250 MG TABLET 500 MG PO (20:21)
[2022-12-06 20:25] VITALS: BP 160/75; PULSE 84; RESP 22; TEMP 37; O2SAT 96
[2022-12-06 20:41] LABS: Appearance Urine Clear (Clear); Bilirubin Urine Negative (Negative); Blood Urine Negative (Negative); Color Urine Dark yellow (Yellow); Glucose Urine Negative (Negative); Ketones Urine Negative (Negative); Leukocyte Esterase Urine Trace (Negative); Nitrite Urine Negative (Negative); Protein Urine Negative (Negative); Specific Gravity Urine 1.015 (1.000-1.030)
[2022-12-06 20:44] LABS: RBC Urine 0-2 (0-2); Squamous Epithelial Cell Urine Few (None-Few); WBC Urine 0-2 (0-5)
[2022-12-06 21:12] LABS: PCR FLU A Negative PCR FLU A (Negative); PCR FLU B Negative PCR FLU B (Negative); PCR RSV Negative PCR RSV (Negative)
[2022-12-06 21:15] LABS: SARS PCR* Negative SARS-CoV-2 (Negative)
[2022-12-06 22:07] VITALS: BP 161/78; PULSE 86; RESP 20; TEMP 37.2; O2SAT 96
--- NOTE | 2022-12-06 22:47 | ED.NURSE ---
Pt is A& Ox4, transportion provided by friend. IV removed. denies pain. Understand D/C instructons provided to him
== END 2022-12-06 22:05 | disposition home or self-care (01) ==
PROVIDERS: Emergency Provider Family Medicine; PCP Family Medicine
DX: J18.9 Pneumonia, unspecified organism (principal)
CPT/HCPCS: 36415; 71045; 80048; 81001; 82803; 83605; 85025; 86140; 87631; 96365; 99284; A9270; J0696; J7030

== ENCOUNTER 2023-04-11 11:41 | Emergency (ER) | payer MEDICARE, MEDICAID, SELFPAY ==
[2023-04-11] VITALS (17 sets, daily range): BP systolic 107–139; BP diastolic 77–87; PULSE 94–107; RESP 20; TEMP 36.4; O2SAT 96–100; BMI 29.3
--- NOTE | 2023-04-11 12:53 | ED.GENADULT ---
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 Patient states over the last couple days he has had increasing generalized weakness and productive cough, sputum is yellow in nature, no fevers but he has had chills, associated nausea and vomiting yesterday, denies any diarrhea, he has had worsening shortness of breath, associated chest pain with the cough, he feels he cannot clear the congestion in his chest. No recent falls. Patient has no history of any CAD or stroke. He gets his medical care at the [facility]. Patient recently had pneumonia. Patient states he has been eating and drinking normally. No other concerns at this time. Related Data Home Medications Medication Instructions Recorded Confirmed apixaban 5 mg tablet (Eliquis) mg 01/31/22 aripiprazole 15 mg tablet mg 01/31/22 atorvastatin 10 mg tablet mg 01/31/22 bupropion HCl 150 mg 24 hr tablet, mg PO 01/31/22 extended release insulin aspar prot-insulin aspart subcut 01/31/22 100 unit/mL (70-30) subcutaneous pen (Novolog Mix 70-30FlexPen U-100) insulin aspar prt-insulin aspart subcut 01/31/22 100 unit/mL (70-30) subcutaneous soln (Novolog Mix 70-30 U-100 Insuln) metoprolol succinate 50 mg mg PO 01/31/22 tablet,extended release 24 hr Previous Rx's Medication Instructions Recorded methylprednisolone 4 mg tablets in 4 mg PO DAILY #21 ea 01/31/22 a dose pack (Medrol (Rizwan)) amoxicillin 875 mg-potassium 1 tab PO BID 7 days #14 tabs 04/11/23 clavulanate 125 mg tablet doxycycline hyclate 100 mg capsule 100 mg PO BID #14 caps 04/11/23 Allergies Allergy/AdvReac Type Severity Reaction Status Date / Time No Known Drug Allergies Allergy Verified 01/31/22 13:32 Review of Systems Status of ROS: Reports: 10 or more systems reviewed and unremarkable except as noted in History and below [facility] Social History Smoking Status: Never smoker Do you use any of these nicotine containing products: None Second hand tobacco smoke exposure: No How often do you have a drink containing alcohol: never AUDIT-C Alcohol total score: 0 Non-prescribed substance use: denies use Exam Narrative: Exam Narrative: General: No obvious distress sitting comfortably HEENT: Oropharynx clear and moist, pupils equal round reactive to light Lungs: Mild bibasilar crackles, left greater than right. Heart; irregular regular, tachycardia Abdomen: Soft nontender, bowel sounds present Muscle skeletal: Chronic +2 lower extremity edema Neuro; alert awake and oriented x3 Const: Vital Signs, click to edit/add: Vital Signs - 24 hr 04/11/23 12:25 04/11/23 14:16 04/11/23 14:30 Temperature 97.6 F Pulse Rate 94 97 Pulse Rate [Right Pulse Oximeter] 107 H Respiratory Rate 20 Blood Pressure Blood Pressure [Ri ght Upper Arm] 128/79 Pulse Oximetry 98 97 96 Oxygen Delivery Me thod Room Air 04/11/23 14:31 04/11/23 15:00 04/11/23 15:01 Temperature Pulse Rate 95 99 101 H Pulse Rate [Right Pulse Oximeter] Respiratory Rate Blood Pressure 131/79 131/87 Blood Pressure [Ri ght Upper Arm] Pulse Oximetry 98 99 98 Oxygen Delivery Me thod Course Course ED Course: 1:00 PM: AIDET performed, vitals show mild tachycardia, otherwise stable, workup will include IV peripheral, CBC, CRP, CMP, lactate and blood cultures x2, will obtain EKG, imaging including XR PA and lateral. Will also obtain SARs nasopharyngeal swab. Patient was in agreement differential diagnosis include pneumonia, strep throat illness, COVID, bronchitis, asthma, reactive airway disease, sepsis, chronic cough, medication side effects, foreign body aspiration as well as all etiologies. Reevaluation(s) Time of Reevaluation #1: 14:53 Reevaluation #1: EKG shows sinus tachycardia with first-degree AV block, bpm 102, premature atrial complexes, low-voltage QRS, no comparisons, CBC showed leukocytosis with a left shift, CRP mildly elevated at 8.2, metabolic panel within normal limits. Lactate normal, blood cultures pending. Based on patient's recent history of pneumonia. Patient was given 1 g ceftriaxone and 500 mg azithromycin IV for the URI. No evidence of any pneumonia on imaging, however still plan to treat based on comorbidities and clinical presentation, Augmentin and doxycycline over the next 7 days. Patient is otherwise stable, plan to treat as an outpatient. XR chest PA and lateral: IMPRESSION: No acute cardiopulmonary process. Time of Reevaluation #2: 15:51 Reevaluation #2: Patient is feeling better after above care given, plan would be to discharge, prescription for Augmentin 875-125 mg and doxycycline 100 mg to be taken twice daily over the next 7 days, he will be given additional Tessalon Perles 100 mg 3 times daily over the next 5 days for cough, patient is to follow-up with primary care provider in the next 7-10 days. Return precautions given. Vital Signs Vital signs: Initial Vital Signs Temperature 97.6 F 04/11/23 12:25 Temperature Source Temporal Artery Scan 04/11/23 12:25 Pulse Rate 107 H 04/11/23 12:25 Respiratory Rate 04/11/23 12:25 Blood Pressure 128/79 04/11/23 12:25 Blood Pressure Mean 95 04/11/23 12:25 Blood Pressure Position Sitting 04/11/23 12:25 Pulse Oximetry 98 04/11/23 12:25 Oxygen Delivery Method Room Air 04/11/23 12:25 Vital Signs Temperature 97.6 F 04/11/23 12:25 Pulse Rate 107 H 04/11/23 12:25 Respiratory Rate 20 04/11/23 12:25 Blood Pressure 128/79 04/11/23 12:25 Pulse Oximetry 98 04/11/23 12:25 Oxygen Delivery Method Room Air 04/11/23 12:25 Temperature 97.6 F 04/11/23 12:25 Pulse Rate 101 H 04/11/23 15:01 Respiratory Rate 04/11/23 12:25 Blood Pressure 131/87 04/11/23 15:01 Pulse Oximetry 98 04/11/23 15:01 Oxygen Delivery Method Room Air 04/11/23 12:25 Medical Decision Making Lab Data Labs: Lab Results 04/11/23 Range/Units 13:41 WBC 14.31 H (4.50-11.00) K/uL RBC 4.54 (4.30-5.90) m/uL Hgb 13.0 L (13.5-17.5) gm/dL Hct 39.7 (37.0-53.0) % MCV 87 (80-100) fL MCH 29 (26-34) pg MCHC 33 (32-36) gm/dL RDW Coeff of Maurice 14.6 (11.5-15.5) % Plt Count 295 (140-440) K/uL Neut % (Auto) 78.2 H (42.0-72.0) % Lymph % (Auto) 12.2 L (20-44) % [place] % (Auto) 8.3 (0.0-11.0) % Eos % (Auto) 0.6 (0.0-7.0) % Baso % (Auto) 0.1 (0.0-3.0) % Neut # (Auto) 11.20 H (1.7-7.0) K/uL Lymph # (Auto) 1.70 (0.90-2.90) K/uL [place] # (Auto) 1.20 H (0.00-0.90) K/UL Eos # (Auto) 0.10 (0.00-0.50) K/uL Baso # (Auto) 0.00 (0.00-0.30) K/uL Abs Immat Gran (auto) 0.10 (0.00-0.30) K/uL Imm/Tot Granulo (auto) 0.6 % Sodium 135 (135-149) mmol/L Potassium 3.9 (3.6-5.1) mmol/L Chloride 97 (96-114) mmol/L Carbon Dioxide 33 H (20-32) mmol/L Anion Gap 5 L (7-15) mEq/L BUN 22 (7-30) mg/dL Creatinine 1.1 (0.5-1.5) mg/dL Estimated Creat Clear 56.14 Estimated GFR 70 ml/min Glucose 137 H (60-115) mg/dL Lactate 1.4 (0.5-1.9) mmol/L Calcium 9.3 (8.4-10.6) mg/dL Total Bilirubin 1.1 (0.1-1.5) mg/dL AST 22 (12-35) U/L ALT 16 (4-50) U/L Alkaline Phosphatase 108 (40-150) U/L C-Reactive Protein 8.2 H (0.5-1.0) mg/dL Total Protein 6.2 (6.0-8.3) g/dL Albumin 3.5 (3.3-5.0) g/dL SARS-CoV-2 (PCR) Negative SARS-CoV-2 (Negative) Discharge Plan Discharge Clinical Impression: Upper respiratory infection, Weakness Patient Disposition: Home, Self-Care Condition: Improved Instructions: Upper Respiratory Infection (ED) Additional Instructions: Doxycycline 100 mg twice daily over the next 7 days, Augmentin 875-125 mg tablets twice daily over the next 7 days, Tessalon Perles, 100 mg 3 times daily over the next 5 days for cough, follow-up with primary care provider over the next 7-10 days. Return if worsening symptoms. Activity Level: No Restrictions Prescriptions: New doxycycline hyclate 100 mg capsule 100 mg PO BID Qty: 14 0RF amoxicillin-pot clavulanate 875-125 mg tablet 1 tab PO BID 7 Days Qty: 14 0RF No Action atorvastatin 10 mg tablet metoprolol succinate 50 mg tablet extended release 24 hr PO insulin asp prt-insulin aspart [Novolog Mix 70-30FlexPen U-100] 100 unit/mL (70-30) insulin pen SUBCUT Patient Comments: INJECT 20 UNITS EVERY MORNING AND 4 AT MEAL TIME aripiprazole 15 mg tablet insulin asp prt-insulin aspart [Novolog Mix 70-30 U-100 Insuln] 100 unit/mL (70-30) solution SUBCUT bupropion HCl 150 mg tablet extended release 24 hr PO Eliquis 5 mg tablet methylprednisolone [Medrol (Rizwan)] 4 mg tablets,dose pack 4 mg PO DAILY Qty: 21 0RF Follow Up/Referrals: Nelson Lowe MD [Primary Care Provider] - Stand Alone Forms: [employer] Info Instructions
--- NOTE | 2023-04-11 13:08 | CRLHL7_ITS ---
For Patients: As a result of the Cures Act, medical imaging exams and procedure reports are released immediately into your electronic medical record. You may view this report before your referring provider. If you have questions, please contact your health care provider. INDICATION: Cough. TECHNIQUE: Chest 2 views. COMPARISON: 12/06/2022. FINDINGS: Cardiovascular and mediastinum: Stable. Lungs and pleural spaces: Lungs are clear. No sign of infiltrate or mass. No sign of pleural effusion. No pneumothorax. Bones and soft tissues: No significant interval findings. IMPRESSION: No acute cardiopulmonary process. Dictated by Devante Buckley MD @ 04/11/2023 2:45:19 PM (Electronically Signed)
[2023-04-11 13:53] LABS: Lactate* 1.4 mmol/L (0.5-1.9)
[2023-04-11 13:54] LABS: Basophils Percent Auto 0.1 % (0.0-3.0); Eosinophils Percent Auto 0.6 % (0.0-7.0); Hematocrit 39.7 % (37.0-53.0); Immature Granulocytes Pct Auto 0.6 %; Lymphocytes Percent Auto 12.2 % (20-44); Mean Corpuscular HGB Conc 33 gm/dL (32-36); Mean Corpuscular Hemoglobin 29 pg (26-34); Mean Corpuscular Volume 87 fL (80-100); Monocytes Percent Auto 8.3 % (0.0-11.0); Neutrophils Percent Auto 78.2 % (42.0-72.0); Platelet Count* 295 K/uL (140-440); RDW Coefficient of Variation % 14.6 % (11.5-15.5); Red Blood Count 4.54 m/uL (4.30-5.90); White Blood Count* 14.31 K/uL (4.50-11.00)
[2023-04-11 13:57] LABS: Slide Review Reflex No
[2023-04-11] MEDS: 0.9 % SODIUM CHLORIDE 500 ML 500 ML IV (14:10)
[2023-04-11 14:12] LABS: Albumin* 3.5 g/dL (3.3-5.0); Chloride* 97 mmol/L (96-114); Potassium* 3.9 mmol/L (3.6-5.1); Sodium* 135 mmol/L (135-149)
[2023-04-11 14:14] LABS: Anion Gap 5 mEq/L (7-15); Aspartate Amino Transferase* 22 U/L (12-35); Bilirubin Total* 1.1 mg/dL (0.1-1.5); Carbon Dioxide* 33 mmol/L (20-32); Creatinine* 1.1 mg/dL (0.5-1.5); Est. Creatinine Clearance* 56.14; Estimated Glomerular Filt Rate 70 ml/min
[2023-04-11 14:15] LABS: Alanine Aminotransferase* 16 U/L (4-50); Alkaline Phosphatase* 108 U/L (40-150); Blood Urea Nitrogen* 22 mg/dL (7-30); Glucose* 137 mg/dL (60-115); Total Protein* 6.2 g/dL (6.0-8.3)
[2023-04-11 14:16] LABS: Calcium* 9.3 mg/dL (8.4-10.6)
[2023-04-11 14:19] LABS: C Reactive Protein* 8.2 mg/dL (0.5-1.0)
[2023-04-11] MEDS: cefTRIAXone 1 GM in 0.9 % SODIUM CHLORIDE Mini-bag 100 ML IVPB (14:29)
[2023-04-11 14:31] LABS: SARS PCR* Negative SARS-CoV-2 (Negative)
[2023-04-11] MEDS: AZITHROMYCIN 500 MG in 0.9 % SODIUM CHLORIDE 250 ml 250 ML 255 MG IVPB (16:10)
== END 2023-04-11 17:31 | disposition home or self-care (01) ==
LOC: ED 16:30
PROVIDERS: Emergency Provider Student in an Organized Health Care Education/Training Program; PCP Family Medicine
DX: J06.9 Acute upper respiratory infection, unspecified (principal); R53.1 Weakness
CPT/HCPCS: 36415; 71046; 80053; 83605; 85025; 86140; 87040; 87635; 93005; 96365; 96368; 99284; 99285; J0456; J0696; J7050; J7120

== ENCOUNTER 2023-08-10 08:40 | Outpatient (CLI) | payer MEDICARE, MEDICAID, SELFPAY ==
--- OUTSIDE RECORDS SUMMARY | 2023-08-13 12:22 | XMS_ITS | Encounter Summary ---
Author Name [employer] [facility] [employer] Organization [facility] Address [address] [place] [address] Support Name Relationship Address Phone SIRIA THOMPSON Next of Kin [address] [place], [place] [id number] SIRIA THOMPSON Emergency Contact [address] [place] [phone] NATHALIE DING Emergency Contact Unknown [phone] Insurance Providers: All historical and current Section Date Range: From patient's date of to the date document was created. This section includes the names of all active insurance providers for the patient. Insurance Provider Type of Coverage Plan Name Start of Policy Coverage End of Policy Coverage Group Number Member ID Insurance Provider's Telephone Number Policy Maldonado's Name Patient's Relationship to Policy Maldonado MEDICARE (WNR) MEDICARE (M) PART A Sep 26, 2012 PART A [id number] [facility] [phone] JUAN THOMPSON JR PATIENT MEDICARE (WNR) MEDICARE (M) PART B Sep 26, 2012 PART B [id number] [phone] JUAN THOMPSON JR PATIENT Selected Encounter This section includes the information on record at MD for the Encounter. Date/Time Encounter Type Encounter Description Reason Pro vider Source Oct 11, 2022 03:51 PM Outpatient Encounter TELEPHONE PRIMARY CARE IHE Encounter Template Text not used by MD Plan of Treatment: Future Appointments (+ 6 months) and Future Tests (+/- 45 days) The Plan of Treatment section includes future care activities for the patient from all MD treatmentfacilities. This section includes future appointments and future orders which are active, pending or scheduled. Future Appointments This section includes appointments that were scheduled to occur 6 months from the date of the Encounter, up to a maximum of 20 appointments. The data comes from all MD treatment facilities. Appointment Date/Time Appointment Type Appointme nt Facility Name Nov 06, 2022 10:00 AM AM[place]ORY [place]IC[place] [facility] Nov 06, 2022 12:45 PM AM[place]ORY - NONE [place] [facility] Nov 19, 2022 11:00 AM AM[place] [facility] November 27, 2022 01:15 PM AMBULATORY - NONE [place] [facility] Dec 28, 2022 10:30 AM AMB[place]ATORY - MEDICINE [place] [facility] Dec 31, 2022 09:00 AM AM[place] [facility] Jan 16, 2023 10:00 AM AM[place] [facility] Jan 17, 2023 10:00 AM AM[place] [facility] Feb 13, 2023 01:45 PM AMBULATORY - [place] [facility] Feb 13, 2023 03:15 PM AM[place]ORY - NONE [place] [facility] Feb 25, 2023 09:15 AM AM[place]ORY - MEDICINE [place] [facility] Feb 25, 2023 09:30 AM AM[place]ORY - MEDICINE [place] [facility] Feb 25, 2023 11:00 AM AM[place]ULATORY - [place]ICINE [place] [facility] Mar 07, 2023 08:30 AM AMBULATORY - MEDICINE [place] [facility] Mar 31, 2023 07:00 AM AM[place]ULATORY - NONE [place] [facility] Lab Results: +/- 30 days of the encounter This section includes the Chemistry and Hematology Lab Results on record with MD for the patient. Radiology Reports and Pathology Reports are provided separately, in subsequent sections. Lab Results This section contains the Chemistry/Hematology Results that were resulted 30 days before or 30 daysafter the date of the Encounter. Date/Time Source Result Type Result - Unit Interpretation Reference Range Comment Nov 06, 2022 12:38 PM [facility] VITAMIN B-1,BLOOD Specimen Type: BLOOD Comment: Vitamin supplementation within 24 hours prior to blood draw may affect the accuracy of the results. This test was developed and its analytical performance characteristics have been determined by [facility] [place], [place]. It has not been cleared or approved by the U.S. Food and Drug Administration. This assay has been validated pursuant to the CLIA regulations and is used for clinical purposes. Test Performed by [facility], [facility], [address] [place], [place] Devante Meyer M.D., Ph.D., Director of Laboratories , [place] [id number] Ordering Provider: APRIL KINCAID Report Released Date/Time: Nov 06, 2022 11:06 AM Reporting Lab: [facility] [id number] Performing Lab: [address] VITAMIN B-1,BLOOD [phone] Nov 06, 2022 12:38 PM [facility] HEMOGLOBIN A1C Specimen Type: BLOOD Comment: Values obtained from A1C measurements can vary. For typical A1C assays, a reported value of 7.0 could actually be between 6.7 and 7.3 if measured by a reference method. A reported value of 9.0 could actually be between 8.7 and 9.3. Ref: [email or web address] [email or web address] Ordering Provider: APRIL KINCAID Report Released Date/Time: Nov 06, 2022 11:06 AM Reporting Lab: [facility] [id number] Performing Lab: [facility] [id number] HEMOGLOBIN A1C 8.6 H 4.0-6.0 Nov 06, 2022 12:38 PM [facility] COMPREHENSIVE METABOLIC PANEL+MG Specimen Type: PLASMA No comment entered. Ordering Provider: APRIL KINCAID Report Released Date/Time: Nov 06, 2022 11:06 AM Reporting Lab: [facility] [id number] Performing Lab: [facility] [id number] CREATININE 1.1 0.7-1.2 UREA NITROGEN 19 8-26 GLUCOSE 135 H 70-100 SODIUM 142 136-145 POTASSIUM 4.0 3.5-5.1 CHLORIDE 104 98-107 CO2 32 H 22-29 CALCIUM 9.3 8.4-10.2 PROTEIN,TOTAL 6.1 6.0-8.3 ALBUMIN 3.8 3.5-5.2 BILIRUBIN, TOTAL 0.5 0.2-1.2 MAGNESIUM 1.5 L 1.6-2.6 ANION GAP 6 5-15 ALKALINE PHOSPHATASE 149 40-150 ALT/SGPT 19 <55 AST/SGOT 16 <34 .CREAT EGFR(CKD-EPI) 70 >60 Social History: Smoking Status (Most current) and Tobacco Use (All prior to encounter date) This section includes the most current, and the historical, smoking and tobacco- related health factors from the MD facility where the Encounter took place. Current Smoking Status This section includes the most current smoking, or tobacco-related health factor, from the MD facility where the Encounter took place. Date/Time Current Smoking Status Comment Facil ity Aug 15, 2022 09:00 AM VA-TOBACCO FORMER USER [facility] Tobacco Use History This section includes a history of the smoking, or tobacco-related health factors, that were collected on or before the date of the Encounter. The data comes from the MD facility where the Encounter took place. Date/Time Smoking Status/Tobacco Use Comment F acility Aug 15, 2022 09:00 AM VA-TOBACCO QUIT 15 YRS OR MORE [facility] Aug 21, 2021 01:00 PM VA-TOBACCO FORMER USER [facility] Aug 21, 2021 01:00 PM VA-TOBACCO QUIT 15 YRS OR MORE [facility] Jul 09, 2018 08:58 AM VA-TOBACCO FORMER USER [facility] Jul 09, 2018 08:58 AM VA-TOBACCO QUIT 15 YRS OR MORE [facility] Jul 18, 2017 09:58 AM FORMER TOBACCO USER 7Y OR GREATE R [facility] Aug 14, 2016 10:59 AM FORMER TOBACCO USER 7Y OR GREATE R [facility] Jun 29, 2015 02:03 PM FORMER TOBACCO USER 7Y OR GREATE R [facility] Jan 06, 2014 03:04 PM FORMER TOBACCO USER 7Y OR GREATE R [facility] Jan 04, 2012 08:36 AM FORMER TOBACCO USER 7Y OR GREATE R [facility] Radiology Reports: +/- 30 days of the encounter Radiology Reports For cases when an order for radiology services may have been completed prior to the date of the Encounter, the report list includes the Radiology Reports that were completed up to 30 days before dateof the Encounter. For cases when an order for radiology services may have been completed after the date of the Encounter, the report list also includes the Radiology Reports that were completed up to30 days after date of the Encounter. The data comes from all [facility] facilities. Date/Time Radiology Report Provider Source Sep 28, 2022 08:55 AM ESOPHAGRAM CODY S JULIAN: JUAN THOMPSON [id number] -[id number] M Ex Date: SEP 28, 2022@08:55 Req Phys: VIPUL CRANE Loc: [facility] APACT L RES 03 WH 4F (Req' Img Loc: MAIN X-RAY Service: Unknown (Case [id number] COMPLETE) ESOPHAGRAM VIDEO SWALLOW (RAD Detailed) CPT:97923 Contrast Media : Barium Reason for Study: dysphagia Clinical History: IS NOT under investigation for COVID-19 or is COVID-19 negative Ongoing for several years. 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 Ongoing for several years. 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 FINDINGS/TECHNIQUE: Patient ingested various consistencies of barium (thin liquid, mildly thickened liquid, pudding, barium coated cracker) in the presence of a speech pathologist during observation with fluoroscopy in the lateral and frontal positions. Premature spillage to the level of the vallecula with thin liquid barium. Recurrent episodes of laryngeal penetration of thin barium. Mucosal coating at the larynx of the thin liquid barium is present without additional laryngeal penetration or tracheal aspiration during trials of mildly thickened barium, pudding consistency, or barium coated cracker. Small amount of vallecular residuals. Symmetrical transit of the bolus through the hypopharynx on frontal examination. . Frontal evaluation of the vocal folds demonstrates symmetric movement. Degenerative changes of the visualized cervical spine greatest at C5-6. Fluoroscopy time: 2.7 minutes Dose area product: 158.2 microGray meters squared Skin dose: 15.9 mGy Impression: 1. Laryngeal penetration of thin liquid barium without tracheal aspiration. No penetration or tracheal aspiration with other tested consistencies of barium. 2 Please refer to the speech pathologist report for additional findings and recommendations. I, Valentina Harvey, have reviewed the images and report. Primary Interpreting Staff: VALENTINA HARVEY MD, RADIOLOGIST (Nuclear Medicine Technologist) Primary Interpreting Resident: MARE ROMERO MD, SCRAP HOOKER /VALENTINA CHAMPAGNE [facility] Encounter Notes: All associated encounter notes This section contains the clinical notes associated to the Encounter. Date/Time Encounter Note(s) Provider Source Oct 11, 2022 03:51 PM HOME HEALTH REFERR AL NOTE: LOCAL TITLE: [facility] HEALTH CARE STANDARD TITLE: HOME HEALTH REFERRAL NOTE DATE OF NOTE: OCT 11, 2022@15:51 ENTRY DATE: OCT 11, 2022@15:51:29 AUTHOR: NATHALIE ABRAHAM EXP COSIGNER: URGENCY: STATUS: COMPLETED HOME HEALTH CARE CERTIFICATION AND PLAN OF CARE SIGNED BY: Dr. Ordaz for [facility] in [place], [place] Certification period From: Sep To: Dec /pablo/ NATHALIE ABRAHAM RN REGISTERED NURSE Signed: 10/11/2022 15:53 NATHALIE ABRAHAM [facility]
--- OUTSIDE RECORDS SUMMARY | 2023-08-13 12:22 | XMS_ITS | Encounter Summary ---
Author Name Department of Vetera Affairs Organization Department of Vetera ns Affairs Address [address] [place] [address] Support Name Relationship Address Phone SIRIA THOMPSON Next of Kin [address] [place] [address] SIRIA THOMPSON Emergency Contact [address] [phone] NATHALIE DING Emergency Contact Unknown Insurance Providers: All historical and current Section [...] Policy Maldonado MEDICARE (WNR) MEDICARE (M) PART B Sep 26, 2012 PART B [id number] [facility] [phone] GIO THOMPSON JR PATIENT MEDICARE (WNR) MEDICARE (M) PART A Sep 26, 2012 PART A [id number] [phone] GIO THOMPSON JR PATIENT Selected Encounter This section includes the information on record at [place] for the Encounter. Date/Time Encounter Type Encounter Description Reason Provider Source Oct 08, 2022 07:51 AM Outpatient Encounter COMMUNITY CARE CONSULT RENU SCHOFIELD Encounter Template Text not used by AL Plan of Treatment: Future Appointments (+ 6 [...] 20 appointments. The data comes from all [place] treatment facilities. Appointment Date/Time Appointment Type Appointme nt Facility Name Nov 06, 2022 10:00 AM AM[place] [facility] Nov 06, 2022 12:45 PM AM[place]ORY - NONE [place] [facility] Nov 19, 2022 11:00 AM [place] [facility] November 27, 2022 01:15 PM [place]ORY - NONE [place] [facility] Dec 28, 2022 10:30 AM [place]IC[place] [facility] Dec 31, 2022 09:00 AM [place] [facility] Jan 16, 2023 10:00 AM [place] [facility] Jan 17, 2023 10:00 AM [place] [facility] Feb 13, 2023 01:45 PM [place] [facility] Feb 13, 2023 03:15 PM [place]ONE [place] [facility] Feb 25, 2023 09:15 AM [place]IC[place] [facility] Feb 25, 2023 09:30 AM [place]ORY - [place]ICINE [place] [facility] Feb 25, 2023 11:00 AM [place]ORY - [place]ICINE [place] [facility] Mar 07, 2023 08:30 AM [place]ORY - MEDICINE [place] [facility] Mar 31, 2023 07:00 AM AM[place]UL[place]ORY - NONE [place] [facility] Lab Results: +/- 30 days of the encounter This section includes the Chemistry and Hematology Lab Results on record with AL for the patient. Radiology Reports and Pathology Reports are provided separately, in subsequent sections. Lab Results This section contains the Chemistry/Hematology Results that were resulted 30 days before or 30 daysafter the date of the Encounter. Date/Time Source Result Type Result - Unit Interpretation Reference Range Comment Nov 06, 2022 12:38 PM [facility] VITAMIN B-1,BLOOD Specimen Type: BLOOD Comment: Vitamin supplementation within 24 hours prior to blood draw may affect the accuracy of the results. This test was developed and its analytical performance characteristics have been determined by [employer] [place], [place]. It has not been cleared or approved by the U.S. Food and Drug Administration. This assay has been validated pursuant to the CLIA regulations and is used for clinical purposes. Test Performed by [facility], [employer] [facility], [address] [place], [place] Devante Meyer M.D., Ph.D., Director of Laboratories , [place] [id number] Ordering Provider: APRIL KINCAID Report Released Date/Time: Nov 06, 2022 11:06 AM Reporting Lab: [facility] [id number] Performing Lab: [address] VITAMIN B-1,BLOOD 173 [id number] Nov 06, 2022 12:38 PM [facility] HEMOGLOBIN A1C Specimen Type: BLOOD Comment: [...] Nov 06, 2022 11:06 AM Reporting Lab: [facility] [id number] Performing Lab: [facility] [address] HEMOGLOBIN A1C 8.6 H 4.0-6.0 Nov 06, 2022 12:38 PM [facility] COMPREHENSIVE METABOLIC PANEL+MG Specimen Type: PLASMA No comment entered. Ordering Provider: APRIL KINCAID Report Released Date/Time: Nov 06, 2022 11:06 AM Reporting Lab: [facility] [address] Performing Lab: [facility] [id number] CREATININE 1.1 0.7-1.2 UREA NITROGEN 19 8-26 GLUCOSE 135 H 70-100 SODIUM 142 136-145 POTASSIUM 4.0 3.5-5.1 CHLORIDE 104 98-107 CO2 32 H 22-29 CALCIUM 9.3 8.4-10.2 PROTEIN,TOTAL 6.1 6.0-8.3 ALBUMIN 3.8 3.5-5.2 BILIRUBIN, TOTAL 0.5 0.2-1.2 MAGNESIUM 1.5 L 1.6-2.6 ANION GAP 6 5-15 ALKALINE PHOSPHATASE 149 40-150 ALT/SGPT 19 <55 AST/SGOT 16 <34 .CREAT EGFR(CKD-EPI) 70 >60 Sep 11, 2022 12:52 PM [facility] VITAMIN A Specimen Type: SERUM Comment: Vitamin supplementation within 24 hours prior to blood draw may affect the accuracy of the results. This test was developed and its analytical performance characteristics have been determined by [employer] [place], [place]. It has not been cleared or approved by the U.S. Food and Drug Administration. This assay has been validated pursuant to the CLIA regulations and is used for clinical purposes. Test Performed by [facility], [employer] [facility], [address] [place] [address] Devante Meyer M.D., Ph.D., Director of Laboratories , [place] [id number] Ordering Provider: ABBY COHEN Report Released Date/Time: Sep 11, 2022 11:28 AM Reporting Lab: [facility] [id number] Performing Lab: [address] VITAMIN A 58 38-98 Sep 11, 2022 12:52 PM [facility] PTH-N-TACT Specimen Type: PLASMA No comment entered. Ordering Provider: ABBY COHEN Report Released Date/Time: Sep 11, 2022 11:28 AM Reporting Lab: [facility] [id number] Performing Lab: [facility] [address] PTH-N-TACT 62.1 8.7-77.1 Social History: Smoking Status (Most current) and Tobacco Use (All prior to encounter date) This section includes the most current, and the historical, smoking and tobacco- related health factors from the [facility] where the Encounter took place. Current Smoking Status This section includes the most current smoking, or tobacco-related health factor, from the [facility] where the Encounter took place. Date/Time Current Smoking Status Comment Facil ity Aug 15, 2022 09:00 AM VA-TOBACCO FORMER USER [facility] Tobacco Use History This section includes a history of the smoking, or tobacco-related health factors, that were collected on or before the date of the Encounter. The data comes from the [place] facility where the Encounter took place. Date/Time Smoking Status/Tobacco Use Comment F acility Aug 15, 2022 09:00 AM VA-TOBACCO QUIT 15 YRS OR MORE [facility] Aug 21, 2021 01:00 PM VA-TOBACCO FORMER USER [facility] Aug 21, 2021 01:00 PM VA-TOBACCO QUIT 15 YRS OR MORE [facility] Jul 09, 2018 08:58 AM VA-TOBACCO FORMER USER [facility] Jul 09, 2018 08:58 AM VA-TOBACCO QUIT 15 YRS OR MORE [facility] Jul 18, 2017 09:58 AM FORMER TOBACCO USER 7Y OR GREATE R [facility] Aug 14, 2016 10:59 AM FORMER TOBACCO USER 7Y OR GREATE R [facility] Jun 29, 2015 02:03 PM FORMER TOBACCO USER 7Y OR GREATE R [facility] Jan 06, 2014 03:04 PM FORMER TOBACCO USER 7Y OR GREATE R [facility] Jan 04, 2012 08:36 AM FORMER TOBACCO USER 7Y OR GREATE R [facility] Radiology Reports: +/- 30 days of [...] the Encounter. The data comes from all [facility] facilities. Date/Time Radiology Report Provider Source Sep 28, 2022 08:55 AM ESOPHAGRAM VIDEO S WALLOW: GIO THOMPSON [id number] -[id number] Ex Date: SEP 28, 2022@08:55 Req Phys: VIPUL CRANE Loc: [facility] APACT L RES 03 WH 4F (Req' Img Loc: MAIN X-RAY Service: Unknown (Case [id number] COMPLETE) ESOPHAGRAM VIDEO SWALLOW (RAD Detailed) CPT:31397 Contrast Media : Barium Reason for Study: dysphagia Clinical History: Sublimity IS NOT under investigation for COVID-19 or [...] 28, 2022 Date Verified: SEP 28, 2022 Yacht Captain E-Sig:/ES/VALENTINA LEON MD Report: EXAMINATION: ESOPHAGRAM VIDEO SWALLOW 09/28/2022 [...] pathologist report for additional findings and recommendations. IValentina, have reviewed the images and report. Primary Interpreting Staff: VALENTINA LEON MD, RADIOLOGIST (Yacht Captain) Primary Interpreting Resident: MARE ROMERO MD, PINION POLISHER /VALENTINA CHAMPAGNE [facility] Encounter Notes: All associated encounter notes This section contains the clinical notes associated to the Encounter. Date/Time Encounter Note(s) Provider Source Oct 08, 2022 07:51 AM GERIATRIC MEDICINE NOTE: LOCAL TITLE: PERSONAL CARE SERVICES CASE MIX TOOL STANDARD TITLE: GERIATRIC MEDICINE NOTE DATE OF NOTE: OCT 08, 2022@07:51:15 ENTRY DATE: OCT 08, 2022@07:51:15 AUTHOR: SCHOFIELD,RENU M EXP COSIGNER: URGENCY: STATUS: COMPLETED HCBS Case Mix & Budget Tool (CASE MIX) Date Given: 10/08/2022 Clinician: Renu Schofield Location: [facility] Care : Gio Thompson SSN: [id number] : [birth year]) Gender: Male Type of Evaluation: Initial Anticipated Start Date: 10/01/2022 Anticipated Length of Service: 12 months Case Mix Level: L ADL Category: Low Questions and Answers: Q1. DRESSING 0 Can dress without help of any kind. Q2. GROOMING 0 Can comb your hair, wash your face, shave or brush your teeth without help of any kind. Q3. BATHING *4 Need and get help washing and drying your body. Q4. EATING 0 Can eat without help of any kind. Q5. BED MOBILITY 0 Can move in bed without any help. Q6. TRANSFERRING 0 Can get in and out of a bed or chair without help of any kind. Q7. WALKING 1 Can walk with help of a cane, walker, crutch, or push wheelchair. Q8. BEHAVIOR 0 Behavior requires no intervention. Q9. COMMUNICATION 1 Usually Understood. Q10. TOILETING 0 Can use the toilet without help, including adjusting clothing. Q11. MDS HC 2.0/CPS Cognitive Skill for Daily Decision Making 1 Modified Hill - some difficulty in new situations only. Q12. MDS 2.0/CPS: Short Term Memory (recall of what was learned or known) 1 Memory problem Q13. SPECIAL TREATMENTS 0 No TX Q14. CLINICAL MONITORING 0 Less than once a day Q15. SPECIAL NURSING No Q16. NEUROMUSCULAR DIAGNOSIS No COMMENTS 76 YO Sublimity requiring assist with ADLs/IADLs SOURCES 2. Informant /es/ RENU SCHOFIELD, RN kosher dietary service manager Hygiene Teacher Signed: 10/08/2022 07:51 RENU SCHOFIELD [facility]
--- OUTSIDE RECORDS SUMMARY | 2023-08-13 12:22 | XMS_ITS | Encounter Summary ---
Author Name Department of Vetera Affairs Organization Department of Vetera ns Affairs Address [address] [place] [address] Support Name Relationship Address Phone SIRIA THOMPSON Next of Kin [address] [place], [place] [phone] SIRIA THOMPSON Emergency Contact [address] [place] [phone] NATHALIE DING Emergency Contact Unknown [phone] Insurance Providers: All historical and current Section [...] PART A Sep 26, 2012 PART A [id number] [facility] [phone] JUAN THOMPSON JR PATIENT MEDICARE (WNR) MEDICARE (M) PART B Sep 26, 2012 PART B [id number] [phone] JUAN THOMPSON JR PATIENT Selected Encounter This section includes the information on record at [place] for the Encounter. Date/Time Encounter Type Encounter Description Reason Pro vider Source Nov 11, 2022 08:36 AM Outpatient Encounter ENDOCRINOLOGY IHE Encounter Template Text not used by [place] Plan of Treatment: Future Appointments (+ 6 [...] 20 appointments. The data comes from all [place] treatment facilities. Appointment Date/Time Appointment Type Appointme nt Facility Name Nov 19, 2022 11:00 AM [place] [facility] November 27, 2022 01:15 PM [place]ORY - [place]ONE [place] [facility] Dec 28, 2022 10:30 AM [place]IC[place] [facility] Dec 31, 2022 09:00 AM [place] [facility] Jan 16, 2023 10:00 AM [place] [facility] Jan 17, 2023 10:00 AM [place] [facility] Feb 13, 2023 01:45 PM [place] SURGERY [place] [facility] Feb 13, 2023 03:15 PM [place]ORY - NONE [place] [facility] Feb 25, 2023 09:15 AM [place]ICINE [place] [facility] Feb 25, 2023 09:30 AM [place] [place]ICINE [place] [facility] Feb 25, 2023 11:00 AM [place]ORY [place]ICINE [place] [facility] Mar 07, 2023 08:30 AM [place] [place]ICINE [place] [facility] Mar 31, 2023 07:00 AM [place]ORY - NONE [place] [facility] Apr 19, 2023 10:30 AM AMBUL[facility]ORY - SURGERY [facility] Lab Results: +/- 30 days of the encounter This section includes the Chemistry and Hematology Lab Results on record with [place] for the patient. Radiology Reports and Pathology Reports are provided separately, in subsequent sections. Lab Results This section contains the Chemistry/Hematology Results that were resulted 30 days before or 30 daysafter the date of the Encounter. Date/Time Source Result Type Result - Unit Interpretation Reference Range Comment Nov 06, 2022 12:[address] [facility] VITAMIN B-1,BLOOD Specimen Type: BLOOD Comment: Vitamin supplementation within 24 hours prior to blood draw may affect the accuracy of the results. This test was developed and its analytical performance characteristics have been determined by [facility] It has not been cleared or approved by the U.S. Food and Drug Administration. This assay has been validated pursuant to the CLIA regulations and is used for clinical purposes. Test Performed by Jose [facility], [facility], [address] [place], [place] Devante Meyer M.D., Ph.D., Director of Laboratories , [facility] [id number] Ordering Provider: APRIL KINCAID Report Released Date/Time: Nov 06, 2022 11:06 AM Reporting Lab: [facility] [id number] Performing Lab: [facility] [address] [facility] VITAMIN B-1,BLOOD 173 78-185 Nov 06, 2022 12:[address] [facility] HEMOGLOBIN A1C Specimen Type: BLOOD Comment: Values [...] Nov 06, 2022 11:06 AM Reporting Lab: [facility] [address] Performing Lab: [facility] [address] HEMOGLOBIN A1C 8.6 H 4.0-6.0 Nov 06, 2022 12:[address] [facility] COMPREHENSIVE METABOLIC PANEL+MG Specimen Type: PLASMA No comment entered. Ordering Provider: APRIL KINCAID Report Released Date/Time: Nov 06, 2022 11:06 AM Reporting Lab: [facility] [id number] Performing Lab: [facility] [address] CREATININE 1.1 0.7-1.2 UREA NITROGEN 19 8-26 [...] and tobacco- related health factors from the [place] facility where the Encounter took place. Current Smoking Status This section includes the most current smoking, or tobacco-related health factor, from the [facility] where the Encounter took place. Date/Time Current Smoking Status Comment Facil ity Aug 15, 2022 09:00 AM VA-TOBACCO FORMER USER [facility] Tobacco Use History This section includes a history of the smoking, or tobacco-related health factors, that were collected on or before the date of the Encounter. The data comes from the [place] facility where the Encounter took place. Date/Time Smoking Status/Tobacco Use Comment F acility Aug 15, 2022 09:00 AM VA-TOBACCO QUIT [address] [facility] Aug 21, 2021 01:00 PM VA-TOBACCO FORMER USER [facility] Aug 21, 2021 01:00 PM VA-TOBACCO QUIT [address] [facility] Jul 09, 2018 08:58 AM VA-TOBACCO FORMER USER [facility] Jul 09, 2018 08:58 AM VA-TOBACCO QUIT [address] [facility] Jul 18, 2017 09:58 AM FORMER TOBACCO USER 7Y OR GREATE R [facility] Aug 14, 2016 10:59 AM FORMER TOBACCO USER 7Y OR GREATE R [facility] Jun 29, 2015 02:03 PM FORMER TOBACCO USER 7Y OR GREATE R [facility] Jan 06, 2014 03:04 PM FORMER TOBACCO USER 7Y OR GREATE R [facility] Jan 04, 2012 08:36 AM FORMER TOBACCO USER 7Y OR GREATE R [facility] Radiology Reports: +/- 30 days of the [...] the Encounter. The data comes from all [facility] facilities. Date/Time Radiology Report Provider Source November 27, 2022 01:02 PM DXA BONE DENSITY: JUAN THOMPSON [id number] -[id number] M Exm Date: NOVEMBER 27, 2022@13:02 Req Phys: ABBY COHEN Pat Loc: [facility] METABOLIC EVAL CONSULT 3D Img Loc: [facility] MED Service: Unknown (Case [id number] COMPLETE) DXA BONE DENSITY AXIAL (NM Detailed) CPT:52973 Reason for Study: r/o osteoporosis (Case 1253 COMPLETE) TECHNICAL CALC OF TBS (TRABECULAR(NM Detailed) CPT:15835 Clinical History: IS NOT under investigation for COVID-19 or is COVID-19 negative Has history of nora-en-y bypass; evaluated in endocrine clinic, ensure no osteoporosis/penia Responsible provider name and phone number to notify for critical findings if other than user placing the order and pager listed below: User placing orders pager: [phone] LAST CREATININE 1.1 (08/28/22) Report Status: Verified Date Reported: NOVEMBER 28, 2022 Date Verified: NOVEMBER 28, 2022 Cold Molding Press Operator E-Sig:/ES/ABDOULAYE RIZVI MD Report: DXA BONE DENSITY SCAN INDICATION: Rule out osteoporosis. Has history of Nora-en-Y bypass.. COMPARISONS: DXA Scan(s) 12/05/2017. CLINICAL INFORMATION: No additional clinical information. TRACING LATHE SET UP OPERATOR: [facility]. Model: [employer] A. TECHNIQUE/LIMITATIONS: The technical quality of the scan is good. RESULTS: Lumbar Spine (L1-L4): BMD: 1.499 g/cm2. T-score: 4.1. Z-score: 4.7. Femoral Neck: Left. BMD: 1.030 g/cm2. T-score: 1.6. Z-score: 2.1. Total Hip: Left. BMD: 1.278 g/cm2. T-score: 2.8. Z-score: 2.4. Trabecular Bone Score (TBS) L1-L4: 1.467. Impression: Diagnosis (WHO Classification): Normal bone mineral density. FRAX 10-year Fracture Risk: Not applicable BMD COMPARISONS: At this facility, the least significant change in BMD with 95% confidence is 0.036 g/cm2 at the L1-4 spine, 0.039 g/cm2 at the total hip. Compared to the prior study, the change in bone mineral density at the hip is not statistically different. Comparison to the prior for the spine cannot be performed due to differences in technique.. COMMENTS: None. Primary Diagnostic Code: NO ALERT REQUIRED Primary Interpreting Staff: ABDOULAYE RIZVI MD, STAFF NUCLEAR RADIOLOGIST (Cold Molding Press Operator) /CPD ABDOULAYE RIZVI [facility] Encounter Notes: All associated encounter notes This section contains the clinical notes associated to the Encounter. Date/Time Encounter Note(s) Provider Source Feb 14, 2023 03:31 PM ADDENDUM: LOCAL TITLE: Addendum STANDARD TITLE: ADDENDUM DATE OF NOTE: FEB 14, 2023@15:31 ENTRY DATE: FEB 14, 2023@15:31:01 AUTHOR: SHERIN CRESPO EXP COSIGNER: URGENCY: STATUS: COMPLETED Derek Jenkins, may you please enter the lad order for this patient? Labs and imaging were not ordered, order labs/imaging if appropriate and flag order to author of note. Thanks. /pablo/ SHANIKA BROWN ADVANCED MSA Signed: 02/14/2023 15:32 Receipt Acknowledged By: 02/19/2023 08:39 /pablo/ APRIL KINCAID ENDOCRINE FELLOW 02/14/2023 16:08 /pablo/ ISAEL ALVAREZ MD PHYSICIAN === --- Original Document --- 11/11/22 APPOINTMENT SCHEDULING NOTE: Return to clinic / follow up order needs clarification or adjustment Order needing clarification Activity:11/06/2022 11:03 New Order entered by APRIL KINCAID (FELLOW PHYSICIA) Order Text: Return to [facility] on or around ( Mar 06, 2023 ) for a total of 1 appointment(s) Prerequisites: Labs (NON-FASTING), Imaging Orders Labs and imaging were not ordered, order labs/imaging if appropriate and flag order to author of note. Thanks. /aneesh BROWN ADVANCED MSA Signed: 11/11/2022 08:38 Receipt Acknowledged By: 11/16/2022 09:26 /pablo/ APRIL KINCAID ENDOCRINE FELLOW 02/16/2023 ADDENDUM STATUS: COMPLETED I did not see any order for RTC for this patient. I just placed a new order for RTC with Dr Alvarez in 1 month. The patient does not need any labs or imaging prior to follow up /pablo/ APRIL KINCAID ENDOCRINE FELLOW Signed: 02/16/2023 14:36 Receipt Acknowledged By: 02/18/2023 08:58 /pablo/ SHANIKA HO MSA [facility] Nov 11, 2022 08:36 AM REPORT OF CONTACT: LOCAL TITLE: APPOINTMENT SCHEDULING NOTE STANDARD TITLE: REPORT OF CONTACT DATE OF NOTE: NOV 11, 2022@08:36 ENTRY DATE: NOV 11, 2022@08:36:26 AUTHOR: SHERIN CRESPO EXP COSIGNER: URGENCY: STATUS: COMPLETED APPOINTMENT SCHEDULING NOTE Has ADDENDA Return to clinic / follow up order needs clarification or adjustment Order needing clarification Activity:11/06/2022 11:03 New Order entered by APRIL KINCAID (FELLOW PHYSICIA) Order Text: Return to [address] on or around ( Mar 06, 2023 ) for a total of 1 appointment(s) Prerequisites: Labs (NON-FASTING), Imaging Orders Labs and imaging were not ordered, order labs/imaging if appropriate and flag order to author of note. Thanks. /pablo/ SHANIKA PATEL MSA Signed: 11/11/2022 08:38 Receipt Acknowledged By: 11/16/2022 09:26 /pablo/ APRIL KINCAID ENDOCRINE FELLOW 02/14/2023 ADDENDUM STATUS: COMPLETED Derek Jenkins, may you please enter the lad order for this patient? Labs and imaging were not ordered, order labs/imaging if appropriate and flag order to author of note. Thanks. /pablo/ SHANIKA PATEL MSA Signed: 02/14/2023 15:32 Receipt Acknowledged By: * AWAITING SIGNATURE * APRIL KINCAID 02/14/2023 16:08 /pablo/ ISAEL ALVAREZ MD PHYSICIAN 02/16/2023 ADDENDUM STATUS: COMPLETED I did not see any order for RTC for this patient. I just placed a new order for RTC with Dr Alvarez in 1 month. The patient does not need any labs or imaging prior to follow up /pablo/ APRIL KINCAID ENDOCRINE FELLOW Signed: 02/16/2023 14:36 Receipt Acknowledged By: * AWAITING SIGNATURE * SHANIKA CRESPO YOBANKA E [facility]
--- OUTSIDE RECORDS SUMMARY | 2023-08-13 12:22 | XMS_ITS | Encounter Summary ---
Author Name [facility] Organization [facility] Address [address] [place] [address] Support Name Relationship Address Phone SIRIA THOMPSON Next of Kin [address] [place], [place] [id number] SIRIA THOMPSON Emergency Contact [address] [place] [id number] NATHALIE DING Emergency Contact Unknown Insurance Providers: [...] PART A Sep 26, 2012 PART A [id number] [facility] [phone] JUAN THOMPSON JR PATIENT MEDICARE (WNR) MEDICARE (M) PART B Sep 26, 2012 PART B [id number] [phone] JUAN THOMPSON JR PATIENT Selected Encounter This section includes the information on record at [place] for the Encounter. Date/Time Encounter Type Encounter Description Reason Provider Source Nov 06, 2022 10:00 AM OFFICE O/P EST MOD 30-39 MIN ENDOCRINOLOGY ICD-10-CM E11.8 Type 2 diabetes mellitus with unspecified complications EDUIN KINCAID Encounter Template Text not used by [place] Assessments - Encounter Diagnoses This section includes the primary and secondary diagnoses documented for the Encounter. Date/Time Primary/Secondary Diagnosis Diagnosis Name Provider Source Nov 07, 2022 02:53 PM PRIMARY Type 2 diabetes mellitus with unspecified complications EDUIN KINCAID [facility] Plan of Treatment: Future Appointments (+ 6 months) and Future Tests (+/- 45 days) The Plan of Treatment section includes future care activities for the patient [facility] This section includes future appointments and future orders which are active, pending or scheduled. Future Appointments This section includes appointments that were scheduled to occur 6 months from the date of the Encounter, up to a maximum of 20 appointments. The data comes from all [place] treatment facilities. Appointment Date/Time Appointment Type Appointme nt Facility Name Nov 19, 2022 11:00 AM AMBULATORY - PS[facility]IATRY [facility] November 27, 2022 01:15 PM AMBUL[facility]ORY - NONE [place] [facility] Dec 28, 2022 10:30 AM [facility] Dec 31, 2022 09:00 AM AMBULATORY - PSYCHIATRY [facility] Jan 16, 2023 10:00 AM AMBULATORY - PSYCHIATRY [facility] Jan 17, 2023 10:00 AM AMBULATORY - PSYCHIATRY [facility] Feb 13, 2023 01:45 PM AMBULATORY - SURGERY [facility] Feb 13, 2023 03:15 PM AMBUL[facility]ORY - NONE [place] [facility] Feb 25, 2023 09:15 AM [place] [facility] Feb 25, 2023 09:30 [facility] Feb 25, 2023 11:00 AM [facility] [place]IC[place] [facility] Mar 07, 2023 08:30 AM [place] [place]IC[place] [facility] Mar 31, 2023 07:00 [facility] Apr 19, 2023 10:30 AM AMBULATORY - SURGERY [facility] Lab Results: +/- 30 days of the encounter This section includes the Chemistry and Hematology Lab Results on record with [place] for the patient. Radiology Reports and Pathology Reports are provided separately, in subsequent sections. Lab Results This section contains the Chemistry/Hematology Results that were resulted 30 days before or 30 daysafter the date of the Encounter. Date/Time Source Result Type Result - Unit Interpretation Reference Range Comment Nov 06, 2022 12:38 PM [facility] VITAMIN B-1,BLOOD Specimen Type: BLOOD Comment: Vitamin supplementation within 24 hours prior to blood draw may affect the accuracy of the results. This test was developed and its analytical performance characteristics have been determined by [employer] [place], [place]. It has not been cleared or approved by the U.S. Food and Drug Administration. This assay has been validated pursuant to the CLIA regulations and is used for clinical purposes. Test Performed by [employer] [facility], [employer] [facility], [address] [place] [address] Devante Meyer M.D., Ph.D., Director of Laboratories , CLIA [id number] Ordering Provider: EDUIN KINCAID Report Released Date/Time: Nov 06, 2022 11:06 AM Reporting Lab: [facility] [id number] Performing Lab: [address] VITAMIN B-1,BLOOD [phone] Nov 06, 2022 12:38 PM [facility] HEMOGLOBIN A1C Specimen Type: BLOOD Comment: Values obtained from A1C measurements can vary. For typical A1C assays, a reported value of 7.0 could actually be between 6.7 and 7.3 if measured by a reference method. A reported value of 9.0 could actually be between 8.7 and 9.3. Ref: http://www.[email or web address] [email or web address] Ordering Provider: EDUIN KINCAID Report Released Date/Time: Nov 06, 2022 11:06 AM Reporting Lab: [facility] [id number] Performing Lab: [facility] [id number] HEMOGLOBIN A1C 8.6 H 4.0-6.0 Nov 06, 2022 12:38 PM [facility] COMPREHENSIVE METABOLIC PANEL+MG Specimen Type: PLASMA No comment entered. Ordering Provider: EDUIN KINCAID Report Released Date/Time: Nov 06, 2022 11:06 AM Reporting Lab: [facility] [id number] Performing Lab: [facility] [id number] CREATININE 1.1 0.7-1.2 UREA NITROGEN 19 8-26 GLUCOSE 135 H 70-100 SODIUM 142 136-145 POTASSIUM 4.0 3.5-5.1 CHLORIDE 104 98-107 CO2 32 H 22-29 CALCIUM 9.3 8.4-10.2 PROTEIN,TOTAL 6.1 6.0-8.3 ALBUMIN 3.8 3.5-5.2 BILIRUBIN, TOTAL 0.5 0.2-1.2 MAGNESIUM 1.5 L 1.6-2.6 ANION GAP 6 5-15 ALKALINE PHOSPHATASE 149 40-150 ALT/SGPT 19 <55 AST/SGOT 16 <34 .CREAT EGFR(CKD-EPI) 70 >60 Vital Signs: All taken on the encounter date This section contains inpatient and outpatient Vital Signs collected on the date of the Encounter. Date/Time Temperature Pulse Blood Pressure Respiratory Rate SP02 Pain Height Weight Body Mass Index Source Nov 06, 2022 10:00 AM 99.7 F 88 /min 126/84 mm[Hg] 18 /min 98 % 0 220 lb 34 [facility] Social History: Smoking Status (Most current) and Tobacco Use (All prior to encounter date) This section includes the most current, and the historical, smoking and tobacco- related health factors from the [place] facility where the Encounter took place. Current Smoking Status This section includes the most current smoking, or tobacco-related health factor, from the [place] facility where the Encounter took place. Date/Time Current Smoking Status Comment Facil ity Aug 15, 2022 09:00 AM VA-TOBACCO FORMER USER [facility] Tobacco Use History This section includes a history of the smoking, or tobacco-related health factors, that were collected on or before the date of the Encounter. The data comes from the [place] facility where the Encounter took place. Date/Time Smoking Status/Tobacco Use Comment F acility Aug 15, 2022 09:00 AM VA-TOBACCO QUIT 15 YRS OR MORE [facility] Aug 21, 2021 01:00 PM VA-TOBACCO FORMER USER [facility] Aug 21, 2021 01:00 PM VA-TOBACCO QUIT 15 YRS OR MORE [facility] Jul 09, 2018 08:58 AM VA-TOBACCO FORMER USER [facility] Jul 09, 2018 08:58 AM VA-TOBACCO QUIT 15 YRS OR MORE [facility] Jul 18, 2017 09:58 AM FORMER TOBACCO USER 7Y OR GREATE R [facility] Aug 14, 2016 10:59 AM FORMER TOBACCO USER 7Y OR GREATE R [facility] Jun 29, 2015 02:03 PM FORMER TOBACCO USER 7Y OR GREATE R [facility] Jan 06, 2014 03:04 PM FORMER TOBACCO USER 7Y OR GREATE R [facility] Jan 04, 2012 08:36 AM FORMER TOBACCO USER 7Y OR GREATE R [facility] Radiology Reports: +/- 30 days of the [...] the Encounter. The data comes from all [place] treatment facilities. Date/Time Radiology Report Provider Source November 27, 2022 01:02 PM DXA BONE DENSITY: JUAN THOMPSON [id number] -[id number] M Exm Date: NOVEMBER 27, 2022@13:02 Req Phys: ABBY COHEN Loc: [facility] METABOLIC EVAL CONSULT 3D Img Loc: NUC MED Service: Unknown (Case 1252 COMPLETE) DXA BONE DENSITY AXIAL (NM Detailed) CPT:82274 Reason for Study: r/o osteoporosis (Case 1253 COMPLETE) TECHNICAL CALC OF TBS (TRABECULAR(NM Detailed) CPT:67500 Clinical History: IS NOT under investigation for COVID-19 or is COVID-19 negative Has history of nora-en-y bypass; evaluated in endocrine clinic, ensure no osteoporosis/penia Responsible provider name and phone number to notify for critical findings if other than user placing the order and pager listed below: User placing orders pager: [phone] LAST CREATININE 1.1 (08/28/22) Report Status: Verified Date Reported: NOVEMBER 28, 2022 Date Verified: NOVEMBER 28, [address] Deputy Clerk E-Sig:/ES/ABDOULAYE RIZVI MD Report: DXA BONE DENSITY SCAN INDICATION: Rule out osteoporosis. Has history of Nora-en-Y bypass.. COMPARISONS: DXA Scan(s) 12/05/2017. CLINICAL INFORMATION: No additional clinical information. PHARMACY ASSISTANT: Orad. Model: [employer] A. TECHNIQUE/LIMITATIONS: The technical quality of the [...] Staff: ABDOULAYE RIZVI MD, STAFF NUCLEAR RADIOLOGIST (Justice [address] Deputy Clerk) /ABDOULAYE SALVADOR [facility] Encounter Notes: All associated encounter notes This section contains the clinical notes associated to the Encounter. Date/Time Encounter Note(s) Provider Source November 28, 2022 03:43 PM LETTERS: LOCAL TITLE: FOLLOW UP RESULTS LETTER STANDARD TITLE: LETTERS DATE OF NOTE: NOVEMBER 28, 2022@15:43 ENTRY DATE: NOVEMBER 28, 2022@15:43:36 AUTHOR: ISAEL ALVAREZ EXP COSIGNER: URGENCY: STATUS: COMPLETED [facility] [address] [place] [address] November JUAN BEVERLY JR [facility] [address] [facility] [address] Dear : I am writing to inform you of the results of the tests you had done at the [facility]. The tests below were performed and are satisfactory unless otherwise noted. The date and time of the test as well as the normal range is listed if the actual value of the test is included. Comments: Metabolic results--normal bone density. Please let us know if you have any questions. Report Status: Verified Date Reported: NOVEMBER 28, 2022 Date Verified: NOVEMBER 28, [address] Deputy Clerk E-Sig:/ES/ABDOULAYE RIZVI MD Report: DXA BONE DENSITY SCAN INDICATION: Rule out osteoporosis. Has history of Nora-en-Y bypass.. COMPARISONS: DXA Scan(s) 12/05/2017. CLINICAL INFORMATION: No additional clinical information. PHARMACY ASSISTANT: Orad. Model: [employer] A. TECHNIQUE/LIMITATIONS: The technical quality of the [...] be performed due to differences in technique.. If you have any further questions or problems, please contact our nursing staff or me at the following number: [phone]. Sincerely, ISAEL ALVAREZ MD PHYSICIAN ISAEL ALVAREZ [facility] Nov 06, 2022 10:18 AM ENDOCRINOLOGY ATTE [facility] NOTE: LOCAL TITLE: METABOLIC CLINIC NOTE STANDARD TITLE: ENDOCRINOLOGY ATTENDING NOTE DATE OF NOTE: NOV 06, 2022@10:18 ENTRY DATE: NOV 06, 2022@10:18:12 AUTHOR: EDUIN KINCAID COSIGNER: URGENCY: STATUS: COMPLETED [facility] Note Patient is followed for treatment of morbid obesity associated with DM-2. BMI: 33.5 Todays weight: 220 lb [99.79 kg] (11/06/2022 10:00) Weights past 3 months Measurement DT WEIGHT LB(KG)[BMI] 11/06/2022 10:00 220(99.79)[34*] 09/11/2022 10:27 222.5(100.92)[34*] 08/15/2022 08:56 224(101.60)[34*] HPI PAtient is a 75 YO M w/ PMHx significant for nora-en-y bypass (2011), T2DM (insulin glargine + Metformin), MDD (Venlafaxine + Bupropion) who presents to clinic to seek assistance with weight loss. Patient eats 3 meals a day and snacks on cheese puffs. He does not drink alcohol frequently, does not smoke, and denies all other drug use. He is not physically active as, after orthopedic procedures, he is mainly confined to wheelchair/walker. He has had diabetes on and off in correlation to his weight. After his bypass procedure, patient lost over 100 lbs and his diabetes went into remission. He had his nora-en-y procedure in 2011 and has been taking vitamins/supplements since then including calcium. He drinks about 1 gallon of milk a week in various forms (typically cereal). His goal is to reduce his weight to 170lbs as this was the weight he was at last time when his diabetes went into remission. He has never had pancreatitis. Interval history: Vit A 58, PTH 62, Vit D 58, iron 28, A1c 8.4 Medication effects and side effects: Lantus 14 units daily Metformin 500 mg daily BG lately has been Current diet behavior: Frequency: Snack: Portion: Carb intake: High calories food intake: liquid calories: Alcohol: Cook method: Current physical activity behavior: Blood Pressure: 126/84 (11/06/2022 10:00) Active Outpatient Medications (including Supplies): ACCU-CHEK GUIDE (GLUCOSE) TEST STRIP USE 1 STRIP EVERY ACTIVE (S) DAY TO CHECK BLOOD SUGAR--USE WITHIN 3 MINUTES OF REMOVING FROM CONTAINER ACETAMINOPHEN 500MG TAB TAKE ONE TABLET BY MOUTH EVERY 6 ACTIVE HOURS NEEDED FOR PAIN APIXABAN 5MG TAB TAKE ONE TABLET BY MOUTH EVERY 12 HOURS ACTIVE TO PREVENT AND/OR TREAT BLOOD CLOTS ARIPIPRAZOLE 30MG TAB TAKE ONE-HALF TABLET BY MOUTH EVERY ACTIVE DAY ATORVASTATIN CALCIUM 10MG TAB TAKE ONE TABLET BY MOUTH AT ACTIVE BEDTIME BUPROPION HCL 150MG 24HR SA TAB TAKE ONE TABLET BY MOUTH ACTIVE EVERY MORNING CALCIUM 200MG (CA CITRATE-950MG) TAB TAKE TWO TABLETS BY ACTIVE MOUTH TWICE A DAY FOR CALCIUM SUPPLEMENT CHOLECALCIF 25MCG (D3-1,000UNIT) TAB TAKE ONE TABLET BY ACTIVE MOUTH EVERY DAY DICLOFENAC NA 1% TOP GEL APPLY 4 GRAMS TOPICALLY FOUR ACTIVE TIMES A DAY NEEDED TO AFFECTED AREA FOR PAIN. *USE DOSE CARD IN BOX TO MEASURE DOSE. MAX 32 GRAMS PER DAY. INSULIN,GLARGINE 100 UNT/ML 3ML SOLOSTAR INJECT 14 UNITS ACTIVE UNDER THE SKIN EVERY DAY LIDOCAINE 5% PATCH APPLY 1 PATCH TOPICALLY EVERY DAY FOR ACTIVE PAIN MAGNESIUM OXIDE 400MG TAB TAKE TWO TABLETS BY MOUTH EVERY ACTIVE DAY FOR SUPPLEMENTATION METFORMIN HCL 500MG TAB TAKE ONE TABLET BY MOUTH EVERY DAY ACTIVE FOR DIABETES *NOTE:WHOLE TABLETS METOPROLOL SUCCINATE 50MG SA TAB TAKE ONE TABLET BY MOUTH ACTIVE EVERY DAY FOR HEART AND BLOOD PRESSURE MULTIVIT/OPHTH AREDS2/LUTE/ZEAX CAP/TAB TAKE 1 CAP/TAB BY ACTIVE MOUTH TWICE A DAY WITH MEALS MULTIVITAMIN CAP/TAB TAKE 1 TABLET BY MOUTH EVERY DAY ACTIVE OMEPRAZOLE 20MG EC CAP TAKE ONE CAPSULE BY MOUTH EVERY ACTIVE MORNING AND TAKE TWO CAPSULES EVERY EVENING ON AN EMPTY STOMACH, AT LEAST 30 MINUTES PRIOR TO A MEAL FOR REFRACTORY GERD VENLAFAXINE HCL 150MG 24HR SA CAP TAKE ONE CAPSULE BY ACTIVE MOUTH EVERY DAY Assessment and Plan: # Morbid Obesity (BMI 33.9) # T2DM - uncontrolled # s/p Nora-en-y bypass w/ low iron PAtient received his bariatric procedude in 2011 and experienced profound weight loss thereafter w/ resolution of his diabetes. He is currently treated with Insulin Glargine (14U) and Metformin 500mg (reduced from 2000mg d/t GI symptoms). His A1c 8.6 is today. PLAN: -We would like to start semaglutide for him and RTC 3W and 6W for monitoring -decrease glargine to 8 units. continue metformin 500 mg -pt needs to follow up with dietitian to discuss about nutritional after bypass -we will prescribe iron supplement ofr him # Possible osteoporosis Familial history of osteoporosis. Reports height decrease from 5'10 to 5'8. No fracture history. Takes calcium carbonate supplements (1 500mg tab daily) and consumes 1-1.5 gallons of milk a week which is roughly 600mg elemental Ca daily from oral intake. Given hx of bypass, our goal is 1200-1500mg daily. - C/w Calcium Citrate 400mg BID - DEXA scan pending this month Time spent 30 minutes D/w Attending, who agrees with the assessment and plan. Eduin Kincaid MD Endocrine Fellow [facility] /pablo/ EDUIN KINCAID ENDOCRINE FELLOW Signed: 11/07/2022 14:53 EDUIN KINCAID [facility] Nov 06, 2022 10:02 AM INTERNAL MEDICINE OUTPATIENT NOTE: LOCAL TITLE: MEDICINE CLINIC NURSING NOTE STANDARD TITLE: INTERNAL MEDICINE OUTPATIENT NOTE DATE OF NOTE: NOV 06, 2022@10:02 ENTRY DATE: NOV 06, 2022@10:02:19 AUTHOR: BE WRIGHT EXP COSIGNER: URGENCY: STATUS: COMPLETED MEDICINE CLINIC NURSING NOTE Has ADDENDA TYPE OF VISIT: Appointment Check In Type of appointment: In-person appointment REASON FOR VISIT: scheduled visit ALLERGIES: SULFAMETHOXAZOLE (Feb 07, 2022) EMPAGLIFLOZIN (Jun 06, 2022) VITAL SIGNS: Blood Pressure: 126/84 (11/06/2022 10:00) Pulse: 88 (11/06/2022 10:00) Respiration: 18 (11/06/2022 10:00) Temperature: 99.7 F [37.6 C] (11/06/2022 10:00) Weight: 220 lb [99.79 kg] (11/06/2022 10:00) Height: 68 in [172.7 cm] (08/15/2022 08:56) BMI: 33.5 O2 Sat: 98% (11/06/2022 10:00) Pain: 0 (11/06/2022 10:00) PAIN SCREEN: Patient is not having significant pain that they wish to discuss with their provider today. MEDICATION Over the Counter/Herbal Medications: The patient denies taking any outside medications or herbals. Diabetes/Metabolic Clinic Glucometer: did not bring glucometer to appointment /pablo/ BE WRIGHT LPN LPN Signed: 11/06/2022 10:03 11/06/2022 ADDENDUM STATUS: COMPLETED EDUCATION: PARTICIPANT(s): Patient Diabetes Education GLP-1 Pen Administration: Semaglutide (Ozempic) seen for semaglutide instruction for either diabetes or weight management Intended effect of Drug: Improved blood sugars. Reduction in appetite. Stimulates pancreas to produce insulin in the presence of higher blood sugars. Slows down gastric emptying leading to increased satiety. Possible side effects: nausea, vomiting, weight loss, headache, pancreatits. Procedure: 1. Prepare the pen -verify the pen contains semaglutide and it is not . -pull off paper tab from a new disposable needle and screw it on to the pen -pull off the outer needle cap and save it for later. Pull off inner cap and dispose of it. -always use a new needle for each new injection. Avoid bending the needle. Never try to put the inner needle cap back on the needle. 2. Caring for pen -keep it clean, avoid getting dust or dirt on or in the device, clean with oistened mild detergent cloth. -turn the dose selector until the flow check symbol lines up with the pointer. -with each new pen, check the flow before your first injection. -hold the pen with needle pointing up, tap cartridge gently to get air bubbles to rise to top. -Press the dose button until the '0 mg' lines up with the pointer. -A drop of semaglutide should appear at the needle tip. If no drop appears, repeat above steps. If it still fails, try again with new needle. If no drop still, the pen is defective and you must use a new one. Notify your pharmacy. 3. Select your dose: -Always check that the pointer lines up with the '0 mg' to start, then turn the dose selector until the desired dose lines up with the pointer. -Do not try to select doses other than your prescribed dose. 4. Inject your dose: -Cleanse the desired injection site with alcohol swab, allow to dry. -Insert the needle into your skin at a 90- degree angle into your abdomen. -Keep the dose button pressed down and the needle under your skin for at least 6 seconds. -Pull out the needle. You may still see a drop of the medication on the needle tip, this is normal. -Guide the outer needle cap onto the needle. Push the cap onto pen. Unscrew the needle and dispose of it carefully in a [employer] approved container. -When pen is empty dispose of it without a needle attached in accordance with local requirements. Directions for dosing: -Inject Semaglutide weekly around the same time, usually 30 minutes prior to breakfast. -Start with 0.25mg subcutaneously weekly for 4 weeks. If tolerating medication you will be instructed to increase to 0.5mg weekly for 2-6 weeks. If tolerating this dose you may be instructed to increase to 1 mg weekly. -It is important to note that the first two doses (0.25mg and 0.5mg) are available in one pen. If your provider increases you to the 1mg dose, you will be given a new pen with only the 1mg dose as an option. Patient informed when starting this type of medication further adjustment to diabetes medications including insulin may be needed. Patient to continue to check blood sugar readings if ordered. A metabolic nurse case resolution specialist will be following up via phone call to assess blood sugars, medication effectiveness and any side effects. FOLLOW-UP RECOMMENDED None needed /es/ TONYA HINDS LPN LICENSED PRACTICAL NURSE Signed: 11/06/2022 12:33 Receipt Acknowledged By: * AWAITING SIGNATURE * MIGUEL ANGEL WHITLOCK MACKENSIE K [facility]
--- OUTSIDE RECORDS SUMMARY | 2023-08-13 12:22 | XMS_ITS | Continuity of Care Document ---
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 It does not include entries that were removed or entered in error. Problem Status Onset Date Problem Type Date of Resolution Comments Source Astigmatism, Unspec Active Condition [facility] Atrial fibrillation (SNOMED CT 55860675) Active Condition [facility] Bariatric Surgery Status (ICD-9-CM V45.86) Active Condition [facility] Bipolar disorder (SNOMED CT 07256614) Active Condition [facility] Bronchiectasis (SNOMED CT 22703877) Active Condition [facility] Cataracts (SNOMED CT 00857937) Active Condition [facility] Compulsive gambling Active Condition [facility] Dementia Active Condition [facility] Essential hypertension (SNOMED CT 74367151) Active Condition [facility] Gastritis Active Condition [facility] Gastroesophageal reflux disease (SNOMED CT 331070280) Active Condition [facility] Generalized anxiety disorder (SNOMED CT 86927836) Active Condition [facility] Hypermetropia/Hypero miguel Active Condition [facility] Long-term current use of anticoagulant Active Condition [facility] Major depressive disorder (SNOMED CT 414654421) Active Condition [facility] Mild cognitive disorder Active Condition [facility] Presbyopia Active Condition [facility] Primary Obesity (ICD-9-CM 278.00) Active Condition [facility] Type 2 diabetes mellitus Active Condition [facility] Varicose veins of lower extremity Active Condition [facility] Diagnosis: ICD-10-CM E66.3 Overweight Active Diagnosis [facility] Diagnosis: ICD-10-CM F03.A4 Unspecified dementia, mild, with anxiety Active Diagnosis [facility] Diagnosis: ICD-10-CM F31.81 Bipolar II disorder Active Diagnosis [facility] Diagnosis: ICD-10-CM M16.11 Unilateral primary osteoarthritis, right hip Active Diagnosis [facility] Diagnosis: ICD-10-CM E11.8 Type 2 diabetes mellitus with unspecified complications Active Diagnosis [facility] Diagnosis: ICD-10-CM Z01.818 Encounter for other preprocedural examination Active Diagnosis [facility] Diagnosis: ICD-10-CM Z13.6 Encounter for screening for cardiovascular disorders Active Diagnosis [facility] Diagnosis: ICD-10-CM F03.A18 Unspecified dementia, mild, with other behavioral disturb Active Diagnosis [facility] Diagnosis: ICD-10-CM R13.12 Dysphagia, oropharyngeal phase Active Diagnosis [facility] Diagnosis: ICD-10-CM E11.69 Type 2 diabetes mellitus with other specified complication Active Diagnosis [facility] Diagnosis: ICD-10-CM E66.09 Other obesity due to excess calories Active Diagnosis [facility] Diagnosis: ICD-10-CM M17.0 Bilateral primary osteoarthritis of knee Active Diagnosis [facility] Diagnosis: ICD-10-CM I10 Essential (primary) hypertension Active Diagnosis [facility] Diagnosis: ICD-10-CM K44.9 Diaphragmatic hernia without obstruction or gangrene Active Diagnosis [facility] Diagnosis: ICD-10-CM Z79.01 long term care pharmacist (current) use of anticoagulants Active Diagnosis [facility] Medications Combined list of outpatient medications from Department of Defense and [facility] Affairs facilities.Medications provided include 1) outpatient medications from the last 15 months, and 2) patient-reported medications. Medication Details Route Status Patient Instructions Prescription Expires Prescription Number Last Dispense Date Ordering Provider Order Date Source ACETAMINOPH EN 500MG TAB TAKE ONE TABLET BY MOUTH EVERY 6 HOURS NEEDED FOR PAIN ORALLY ACTIVE 08/16/2023 [id number] KEITH CRANE 2022 [facility] ALBUTEROL 90MCG/ACTUA T (CFC-F) INHL,ORAL,8 .5GM DOSE COUNTER INHALE 1-2 PUFFS BY INHALATI ON EVERY 4 HOURS NEEDED FOR IMMEDIAT E RELIEF OF SHORTNES S OF BREATH *SHAKE WELL* INHALA TION 10/05/2022 [id number] 2 KEITH CRANE 2021 [facility] APIXABAN 5MG TAB TAKE ONE TABLET BY MOUTH EVERY 12 HOURS TO PREVENT AND/OR TREAT BLOOD CLOTS ORALLY ACTIVE 10/13/2023 [id number] 3 SUZIE MISSY L 2022 [facility] APIXABAN 5MG TAB TAKE ONE TABLET BY MOUTH EVERY 12 HOURS TO PREVENT AND/OR TREAT BLOOD CLOTS ORALLY DISCONT INUED 2022 [id number] RICHA SUE 2021 [facility] ARIPIPRAZOL E 20MG TAB TAKE ONE TABLET BY MOUTH EVERY DAY FOR BIPOLAR DISORDER DOSE INCREASE D 11-23-22 ORALLY ACTIVE 11/24/2023 [id number] USHA PURI 2022 [facility] ARIPIPRAZOL E 30MG TAB TAKE ONE-HALF TABLET BY MOUTH EVERY DAY ORALLY DISCONT INUED (EDIT) 01/27/2023 [id number] 3 USHA PURI 2021 [facility] ATORVASTATI N CA 10MG TAB TAKE ONE TABLET BY MOUTH AT BEDTIME ORALLY ACTIVE 09/21/2023 [id number] 3 MARIUSZ PHILLIPS 2022 [facility] ATORVASTATI N CA 20MG TAB TAKE ONE-HALF TABLET BY MOUTH AT BEDTIME ORALLY DISCONT INUED 10/05/2022 [id number] KEITH CRANE 2021 [facility] ATORVASTATI N CA 20MG TAB TAKE ONE-HALF TABLET BY MOUTH AT BEDTIME ORALLY DISCONT INUED (EDIT) 09/21/2023 [id number] 3 MARIUSZ PHILLIPS 2022 [facility] BUPROPION HCL 150MG 24HR TAB,SA TAKE ONE TABLET BY MOUTH EVERY MORNING ORALLY SUSPEND ED 11/24/2023 [id number] 4 USHA PURI 2022 [facility] BUPROPION HCL 150MG 24HR TAB,SA TAKE ONE TABLET BY MOUTH EVERY MORNING ORALLY DISCONT INUED 01/27/2023 [id number] 3 USHA PURI 2021 [facility] CALCIUM 200MG (CA CITRATE-950 MG) TAB TAKE TWO TABLETS BY MOUTH TWICE A DAY FOR CALCIUM SUPPLEME NT ORALLY ACTIVE 09/12/2023 [id number] 3 JOSEKAYLEIGHZULLYChristos Diego 2022 [facility] CHOLECALCIF GABRIELA 25MCG (1,000UNIT) TAB TAKE ONE TABLET BY MOUTH EVERY DAY ORALLY SUSPEND ED 09/21/2023 [id number] 4 MARIUSZ PHILLIPS Elba 2022 [facility] CHOLECALCIF GABRIELA 25MCG (1,000UNIT) TAB TAKE ONE TABLET BY MOUTH EVERY DAY ORALLY DISCONT INUED 10/05/2022 [id number] 2 KEITH CRANE 2021 [facility] CYANOCOBALA MIN 1000MCG TAB TAKE ONE TABLET BY MOUTH EVERY DAY ORALLY SUSPEND ED 11/28/2023 [id number] 4 KEITH CRANE 2022 [facility] CYANOCOBALA MIN 1000MCG TAB TAKE ONE TABLET BY MOUTH EVERY DAY ORALLY DISCONT INUED 10/05/2022 [id number] 3 KEITH CRANE 2021 [facility] DICLOFENAC NA 1% GEL,TOP APPLY 4 GRAMS TOPICALL Y FOUR TIMES A DAY NEEDED TO AFFECTED AREA FOR PAIN. *USE DOSE CARD IN BOX TO MEASURE DOSE. MAX 32 GRAMS PER DAY. TOPICA LLY 02/10/2023 [id number] 3 HARPREET STEPHENSON 2021 [facility] FERROUS SO4 325MG TAB TAKE ONE TABLET BY MOUTH EVERY DAY IRON DEFICIEN CY ORALLY ACTIVE 11/07/2023 [id number] 3 ADELE KINCAID 2022 [facility] INSULIN,GLA RGINE,HUMAN 100 UNIT/ML INJ,SOLOSTA R,3ML INJECT 14 UNITS UNDER THE SKIN EVERY DAY SUBCUT ANEOUS 06/07/2023 [id number] [address] [facility] LIDOCAINE 5% PATCH APPLY 1 PATCH TOPICALL Y EVERY DAY FOR PAIN TOPICA LLY ACTIVE 08/16/2023 [id number] [address] [facility] MAGNESIUM OXIDE 400MG TAB TAKE TWO TABLETS BY MOUTH EVERY DAY FOR SUPPLEME NTATION ORALLY ACTIVE 06/17/2024 [id number] 3 LIZ AR,RACHEL [address] [facility] MAGNESI[facility] OXIDE 400MG TAB TAKE TWO TABLETS BY MOUTH EVERY DAY FOR SUPPLEME NTATION ORALLY DISCONT INUED 07/12/2023 [id number] 3 INGRID BURLESON R 2021 [facility] METFORMIN HCL 500MG TAB TAKE ONE TABLET BY MOUTH EVERY DAY FOR DIABETES *NOTE:WH OLE TABLETS ORALLY ACTIVE 06/12/2024 [id number] 4 KATHERINE, ALTHEA A 2022 [facility] METFORMIN HCL 500MG TAB TAKE ONE TABLET BY MOUTH EVERY DAY FOR DIABETES *NOTE:WH OLE TABLETS ORALLY DISCONT INUED 05/02/2023 [id number] 3 ANGIEFFA, ALTHEA A 2021 [facility] METOPROLOL SUCCINATE 50MG TAB,SA TAKE ONE TABLET BY MOUTH EVERY DAY FOR HEART AND BLOOD PRESSURE ORALLY ACTIVE 10/27/2023 [id number] 4 KEITH CRANE 2022 [facility] METOPROLOL SUCCINATE 50MG TAB,SA TAKE ONE TABLET BY MOUTH EVERY DAY FOR HEART AND BLOOD PRESSURE ORALLY DISCONT INUED 10/05/2022 [id number] [address] [facility] MULTIVIT/OP HTH AREDS2/LUTE IN/ZEAXANTH IN CAP/TAB TAKE 1 CAP/TAB BY MOUTH TWICE A DAY WITH MEALS ORALLY ACTIVE 12/28/2023 [id number] [address] [facility] MULTIVIT/OP HTH AREDS2/LUTE IN/ZEAXANTH IN CAP/TAB TAKE 1 CAP/TAB BY MOUTH TWICE A DAY WITH MEALS ORALLY DISCONT INUED 12/12/2022 [id number] KEITH CRANE 2021 [facility] MULTIVITAMI NS CAP/TAB TAKE 1 TABLET BY MOUTH EVERY DAY ORALLY ACTIVE 2023 [id number] 3 KEITH CRANE 2022 [facility] MULTIVITAMI NS CAP/TAB TAKE 1 TABLET BY MOUTH EVERY DAY ORALLY 10/05/2022 [id number] KEITH CRANE 2021 [facility] OMEPRAZOLE 20MG CAP,EC TAKE ONE CAPSULE BY MOUTH EVERY MORNING AND TAKE TWO CAPSULES EVERY EVENING ON AN EMPTY STOMACH, AT LEAST 30 MINUTES PRIOR TO A MEAL FOR REFRACTO RY GERD ORALLY 07/12/2023 [id number] 3 INGRID BURLESON 2021 [facility] SEMAGLUTIDE 0.25MG/0.37 5ML INJ,SOLN,PE N,3ML INJECT 0.5MG UNDER THE SKIN EVERY WEEK DIABETES AND WEIGHT LOSS SUBCUT ANEOUS ACTIVE 11/08/2023 [id number] 4 ADELE KINCAID HAJOSE 2022 [facility] SEMAGLUTIDE 0.25MG/0.37 5ML INJ,SOLN,PE N,3ML INJECT 0.25MG UNDER THE SKIN EVERY WEEK FOR 4 WEEKS, THEN INJECT 0.5MG EVERY WEEK DIABETES AND WEIGHT LOSS SUBCUT ANEOUS DISCONT INUED 11/08/2023 [id number] ADELE KINCAID 2022 [facility] VENLAFAXINE HCL 150MG 24HR CAP,SA TAKE ONE CAPSULE BY MOUTH EVERY DAY ORALLY SUSPEND ED 11/24/2023 [id number] 4 USHA PURI 2022 [facility] VENLAFAXINE HCL 150MG 24HR CAP,SA TAKE ONE CAPSULE BY MOUTH EVERY DAY ORALLY DISCONT INUED 01/27/2023 [id number] 3 PURIUSHA MAYO KERWIN 2021 [facility] Allergies, Adverse Reactions, Alerts Combined list of allergies from Department of Defense and Veterans Affairs facilities. It does not include entries that were removed or entered in error. Substance Category Reaction Severity Reaction type Status Date Reported Comments Source EMPAGLIFLOZI N Propensity to adverse reactions to drug (finding) Dizziness, Fatigue MILD active 2 [facility] Propensity to adverse reactions to drug (finding) Acute renal impairment active 2 [facility] Immunizations Combined list of available immunizations from the Department of Defense and Veterans Affairs facilities. Immunization Series Date Given Administered By Site Reaction Lot Number CVX Code Drug Doctorate Of Chiropractic Status Comments Source INFLUENZA VACCINE, QUADRIVALENT, ADJUVANTED 2022 SUSAN MEIER LEFT [place] ID [id number] 205 complet ed [facility] ZOSTER RECOMBINANT 2 2021 187 complet ed [facility] COVID-19 (MODERNA), MRNA, LNP-S, PF, 100 MCG/0.5ML DOSE OR 50 MCG/0.25ML DOSE 4 2021 207 complet ed [facility] ZOSTER RECOMBINANT 1 2021 187 complet ed [facility] COVID-19 (MODERNA), MRNA, LNP-S, PF, 100 MCG/0.5ML DOSE OR 50 MCG/0.25ML DOSE 3 2020 207 complet ed [facility] INFLUENZA, HIGH DOSE SEASONAL 2020 135 complet ed [facility] INFLUENZA, UNSPECIFIED FORMULATION 2020 88 complet ed [facility] COVID-19 (MODERNA), MRNA, LNP-S, PF, 100 MCG/0.5 ML DOSE 2 2020 207 complet ed [facility] COVID-19 (MODERNA), MRNA, LNP-S, PF, 100 MCG/0.5ML DOSE OR 50 MCG/0.25ML DOSE 2020 207 complet ed [facility] COVID-19 (MODERNA), MRNA, LNP-S, PF, 100 MCG/0.5 ML DOSE 1 2020 207 complet ed [facility] INFLUENZA, INJECTABLE, QUADRIVALENT, PRESERVATIVE FREE 2019 150 complet ed [facility] ZOSTER RECOMBINANT 1 2018 187 complet ed [facility] INFLUENZA, SEASONAL, INJECTABLE, PRESERVATIVE FREE 2017 140 complet ed [facility] INFLUENZA, HIGH DOSE SEASONAL 2016 135 complet ed [facility] PNEUMOCOCCAL POLYSACCHARID E PPV23 2016 33 complet ed [facility], [id number], EX 01/01/2018 [facility] INFLUENZA, HIGH DOSE SEASONAL 2016 135 complet ed [facility] PNEUMOCOCCAL CONJUGATE PCV 13 2015 133 complet ed 000 [facility] INFLUENZA, HIGH DOSE SEASONAL 2014 135 complet ed [facility] INFLUENZA, SEASONAL, INJECTABLE 2014 141 complet ed [facility] INFLUENZA, SEASONAL, INJECTABLE 2013 141 complet ed [facility] INFLUENZA, INJECTABLE, QUADRIVALENT 2013 158 complet ed [facility] INFLUENZA, UNSPECIFIED FORMULATION 2012 88 complet ed [facility] TDAP 2012 115 complet ed 2R45M/04/12 [facility] ZOSTER LIVE 2012 121 complet ed [id number] 8May14 [facility] INFLUENZA, UNSPECIFIED FORMULATION 2012 88 complet ed [facility] PNEUMOCOCCAL POLYSACCHARID E PPV23 2011 33 complet ed [facility] INFLUENZA, UNSPECIFIED FORMULATION 2010 88 complet ed [facility] PNEUMOCOCCAL, UNSPECIFIED FORMULATION 2010 109 complet ed [facility] INFLUENZA, SEASONAL, INJECTABLE, PRESERVATIVE FREE 2009 140 complet ed [facility] TD(ADULT) UNSPECIFIED FORMULATION 2007 139 complet ed [facility] INFLUENZA, SEASONAL, INJECTABLE 2002 141 complet ed [facility] INFLUENZA, UNSPECIFIED FORMULATION 1997 88 complet ed [facility] PNEUMOCOCCAL POLYSACCHARID E PPV23 1997 33 complet ed [facility] Results Combined list of recent chemistry, hematology and other laboratory results from Department of Defense and Veterans Affairs, ranging from 15 months to all on record, depending upon the facility. Order Name Results Value Reference Range Date Interpretation Specimen Comments Source BASIC METABOLIC PANEL+MG CREATININE [MASS/VOLUM E] IN SERUM OR PLASMA 1.2 0.7 - 1.2 07/11 Specimen Type: PLASMA No comment entered. Ordering Provider: JESSICA ALVAREZ Report Released Date/Time: Jul 11, 2023 10:23 AM Reporting Lab: [facility] [address] Performing Lab: [facility] [address] [place] [facility] BASIC METABOLIC PANEL+MG UREA NITROGEN [MASS/VOLUM E] IN SERUM OR PLASMA 22 8 - 26 07/11 Specimen Type: PLASMA No comment entered. Ordering Provider: JESSICA ALVAREZ Report Released Date/Time: Jul 11, 2023 10:23 AM Reporting Lab: [facility] [address] Performing Lab: [facility] [address] [place] [facility] BASIC METABOLIC PANEL+MG GLUCOSE [MASS/VOLUM E] IN SERUM OR PLASMA 193 70 - 100 07/11 H Specimen Type: PLASMA No comment entered. Ordering Provider: JESSICA ALVAREZ Report Released Date/Time: Jul 11, 2023 10:23 AM Reporting Lab: [facility] [address] Performing Lab: [facility] [address] [place] [facility] BASIC METABOLIC PANEL+MG SODIUM [MOLES/VOLU ME] IN SERUM OR PLASMA 143 136 - 145 07/11 Specimen Type: PLASMA No comment entered. Ordering Provider: JESSICA ALVAREZ Report Released Date/Time: Jul 11, 2023 10:23 AM Reporting Lab: [facility] [address] Performing Lab: [facility] [address] [place] [facility] BASIC METABOLIC PANEL+MG POTASSIUM [MOLES/VOLU ME] IN SERUM OR PLASMA 3.7 3.5 - 5.1 07/11 Specimen Type: PLASMA No comment entered. Ordering Provider: JESSICA ALVAREZ Report Released Date/Time: Jul 11, 2023 10:23 AM Reporting Lab: [facility] [address] Performing Lab: [facility] [address] [place] [facility] BASIC METABOLIC PANEL+MG CHLORIDE [MOLES/VOLU ME] IN SERUM OR PLASMA 108 98 - 107 07/11 H Specimen Type: PLASMA No comment entered. Ordering Provider: JESSCIA ALVAREZ Report Released Date/Time: Jul 11, 2023 10:23 AM Reporting Lab: [facility] [address] Performing Lab: [facility] [address] [place] [facility] BASIC METABOLIC PANEL+MG CARBON DIOXIDE, TOTAL [MOLES/VOLU ME] IN SERUM OR PLASMA 28 - 29 07/11 Specimen Type: PLASMA No comment entered. Ordering Provider: JESSICA ALVAREZ Report Released Date/Time: Jul 11, 2023 10:23 AM Reporting Lab: [facility] [address] Performing Lab: [facility] [address] [place] [facility] BASIC METABOLIC PANEL+MG CALCIUM [MASS/VOLUM E] IN SERUM OR PLASMA 9.2 8.4 - 10.2 07/11 Specimen Type: PLASMA No comment entered. Ordering Provider: JESSICA ALVAREZ Report Released Date/Time: Jul 11, 2023 10:23 AM Reporting Lab: [facility] [address] Performing Lab: [facility] [address] [place] [facility] BASIC METABOLIC PANEL+MG MAGNESIUM [MASS/VOLUM E] IN SERUM OR PLASMA 1.8 1.6 - 2.6 07/11 Specimen Type: PLASMA No comment entered. Ordering Provider: JESSICA ALVAREZ Report Released Date/Time: Jul 11, 2023 10:23 AM Reporting Lab: [facility] [address] Performing Lab: [facility] [address] [place] [facility] BASIC METABOLIC PANEL+MG ANION GAP IN SERUM OR PLASMA 7 5 - 15 07/11 Specimen Type: PLASMA No comment entered. Ordering Provider: JESSICA ALVAREZ Report Released Date/Time: Jul 11, 2023 10:23 AM Reporting Lab: [facility] [address] Performing Lab: [facility] [address] [facility] BASIC METABOLIC PANEL+MG GLOMERULAR FILTRATION RATE/1.73 SQ M.PREDICTED [VOLUME RATE/AREA] IN SERUM, PLASMA OR BLOOD BY CREATININE- BASED FORMULA (CKD-EPI 2020) 63 60 07/11 Specimen Type: PLASMA No comment entered. Ordering Provider: JESSICA ALVAREZ Report Released Date/Time: Jul 11, 2023 10:23 AM Reporting Lab: [facility] [address] Performing Lab: [facility] [address] [facility] VITAMIN B-1,BLOOD THIAMINE [MOLES/VOLU ME] IN BLOOD 132 78 - 185 07/11 Specimen Type: BLOOD Comment: Vitamin supplementa tion within 24 hours prior to blood draw may affect the accuracy of the results. This test was developed and its analytical performance characteris tics have been determined by [employer] [place], [place]. It has not been cleared or approved by the U.S. Food and Drug Administrat ion. This assay has been validated pursuant to the CLIA regulations and is used for clinical purposes. Test Performed by [facility], [facility], [address] [place] [address] Devante Meyer M.D., Ph.D., Director of Laboratorie s , CLIA [id number] Ordering Provider: JESSICA ALVAREZ Report Released Date/Time: Jul 11, 2023 10:23 AM Reporting Lab: [facility] [address] Performing Lab: [address] [facility] VITAMIN A RETINOL [MASS/VOLUM E] IN SERUM OR PLASMA 53 38 - 98 07/11 Specimen Type: SERUM Comment: Vitamin supplementa tion within 24 hours prior to blood draw may affect the accuracy of the results. This test was developed and its analytical performance characteris tics have been determined by [facility] [place]. It has not been cleared or approved by the U.S. Food and Drug Administrat ion. This assay has been validated pursuant to the CLIA regulations and is used for clinical purposes. Test Performed by [facility] Done In :[employer] [place], [address] [place] [address] Devante Meyer M.D., Ph.D., Director of Laboratorie s , CLIA [id number] Ordering Provider: JESSICA ALVAREZ Report Released Date/Time: Jul 11, 2023 10:23 AM Reporting Lab: [facility] [phone] Performing Lab: [address] [place] [facility] COPPER COPPER [MASS/VOLUM E] IN SERUM OR PLASMA 81 70 - 175 07/11 Specimen Type: PLASMA Comment: This test was developed and its analytical performance characteris tics have been determined by [facility] [place]. It has not been cleared or approved by the U.S. Food and Drug Administrat ion. This assay has been validated pursuant to the CLIA regulations and is used for clinical purposes. Test Performed by [facility], [address] [place] [address] Devante Meyer M.D., Ph.D., Director of Laboratorie s , CLIA [id number] Ordering Provider: JESSICA ALVAREZ Report Released Date/Time: Jul 11, 2023 10:23 AM Reporting Lab: [facility] [phone] Performing Lab: [address] [place] [facility] ZINC ZINC [MASS/VOLUM E] IN SERUM OR PLASMA 78 60 - 130 07/11 Specimen Type: SERUM Comment: This test was developed and its analytical performance characteris tics have been determined by [facility] [place]. It has not been cleared or approved by the U.S. Food and Drug Administrat ion. This assay has been validated pursuant to the CLIA regulations and is used for clinical purposes. Test Performed by [facility], [facility], [address] [place] [address] Devante Meyer M.D., Ph.D., Director of Laboratorie s , CLIA [id number] Ordering Provider: JESSICA ALVAREZ Report Released Date/Time: Jul 11, 2023 10:23 AM Reporting Lab: [facility] [address] Performing Lab: [facility] [address] [place] [address] [place] [facility] HEMOGLOBI N A1C HEMOGLOBIN A1C/HEMOGLO BIN.TOTAL IN BLOOD 6.5 4.0 - 6.0 07/11 H Specimen Type: BLOOD Comment: Values obtained from A1C measurement s can vary. For typical A1C assays, a reported value of 7.0 could actually be between 6.7 and 7.3 if measured by a reference method. A reported value of 9.0 could actually be between 8.7 and 9.3. Ref: http://www. ngsp.org/[place] Pdata.asp Ordering Provider: JESSICA ALVAREZ Report Released Date/Time: Jul 11, 2023 10:23 AM Reporting Lab: [facility] [address] Performing Lab: [facility] [address] [place] [facility] FERRITIN FERRITIN [MASS/VOLUM E] IN SERUM OR PLASMA 66.0 21.8 - 274.7 07/11 Specimen Type: SERUM No comment entered. Ordering Provider: JESSICA ALVAREZ Report Released Date/Time: Jul 11, 2023 10:23 AM Reporting Lab: [facility] [address] Performing Lab: [facility] [address] [place] [facility] PRE-ALBUM IN PREALBUMIN [MASS/VOLUM E] IN SERUM OR PLASMA 22.5 14.0 - 45.0 07/11 Specimen Type: SERUM No comment entered. Ordering Provider: JESSICA ALVAREZ Report Released Date/Time: Jul 11, 2023 10:23 AM Reporting Lab: [facility] [address] Performing Lab: [facility] [address] [facility] B 12 COBALAMIN (VITAMIN B12) [MASS/VOLUM E] IN SERUM OR PLASMA 1016 213 - 358 07/11 H Specimen Type: PLASMA No comment entered. Ordering Provider: JESSICA ALVAREZ Report Released Date/Time: Jul 11, 2023 10:23 AM Reporting Lab: [facility] [address] Performing Lab: [facility] [address] [facility] Vital Signs Combined list of inpatient and outpatient Vital Signs from Department of Defense and Veterans Affairs, ranging from 12 months to all on record, depending upon the facility. Vital Sign Value Date Comments Source SYSTOLIC BLOOD PRESSURE 104 07/11/2023 09:58:04 [facility] DIASTOLIC BLOOD PRESSURE 71 07/11/2023 09:58:04 [facility] PULSE OXIMETRY 99% 07/11/2023 09:58:[address] [facility] WEIGHT 184.3 07/11/2023 09:58:04 [facility] BMI 28kg/m2 07/11/2023 09:58:04 [facility] PAIN 4 07/11/2023 09:58:04 [facility] TEMPERATURE 97.4 07/11/2023 09:58:04 [facility] [place] [facility] PULSE 97 07/11/2023 09:58:04 [facility] RESPIRATION 16 07/11/2023 09:58:04 [facility] SYSTOLIC BLOOD PRESSURE 118 02/25/2023 09:35:04 [facility] [place] DIASTOLIC BLOOD PRESSURE 77 02/25/2023 09:35:04 [facility] [place] PULSE OXIMETRY 98% 02/25/2023 09:35:[address] WEIGHT 207.2 02/25/2023 09:35:04 [facility] BMI 32kg/m2 02/25/2023 09:35:04 [facility] HEIGHT 68 02/25/2023 09:35:04 [facility] TEMPERATURE 98.5 02/25/2023 09:35:04 [facility] PULSE 77 02/25/2023 09:35:04 [facility] RESPIRATION 16 02/25/2023 09:35:04 [facility] SYSTOLIC BLOOD PRESSURE 126 11/06/2022 10:00:35 [facility] DIASTOLIC BLOOD PRESSURE 84 11/06/2022 10:00:35 [facility] PULSE OXIMETRY 98% 11/06/2022 10:00:35 [facility] WEIGHT 220 11/06/2022 10:00:35 [facility] BMI 34kg/m2 11/06/2022 10:00:35 [facility] PAIN 0 11/06/2022 10:00:35 [facility] TEMPERATURE 99.7 11/06/2022 10:00:35 [facility] PULSE 88 11/06/2022 10:00:35 [facility] RESPIRATION 18 11/06/2022 10:00:35 [facility] SYSTOLIC BLOOD PRESSURE 166 09/11/2022 10:27:55 [facility] DIASTOLIC BLOOD PRESSURE 98 09/11/2022 10:27:55 [facility] PULSE OXIMETRY 97% 09/11/2022 10:27:55 [facility] WEIGHT 222.5 09/11/2022 10:27:55 [facility] BMI 34kg/m2 09/11/2022 10:27:55 [facility] TEMPERATURE 97.3 09/11/2022 10:27:55 [facility] PULSE 70 09/11/2022 10:27:55 [facility] RESPIRATION 18 09/11/2022 10:27:55 [facility] SYSTOLIC BLOOD PRESSURE 129 08/15/2022 08:56:36 [facility] DIASTOLIC BLOOD PRESSURE 74 08/15/2022 08:56:36 [facility] PULSE OXIMETRY 97% 08/15/2022 08:56:36 [facility] WEIGHT 224 08/15/2022 08:56:36 [facility] BMI 34kg/m2 08/15/2022 08:56:36 [facility] PAIN 8 08/15/2022 08:56:36 [facility] HEIGHT 68 08/15/2022 08:56:36 [facility] PULSE 66 08/15/2022 08:56:36 [facility]ISA RAMIRE[facility] RESPIRATION 20 08/15/2022 08:56:36 ALVERTO VILCHIS [facility] Encounters Combined list of: 1) Encounters from Department of Veterans Affairs facilities going back up to thelast 18 months. 2) Encounters from the Department of Defense facilities going back up to 280 months. Location Location Details Encounter Type Encounter Number Reason For Visit Attending Provider ADM Date DC Date Status Disposition Source [facility] OFFICE O/P EST HI 40-54 MIN [id number] Diagnos is: ICD-10- CM E11.8 Type 2 diabete s mellitu s with unspeci fied complic ations< br/> ADAN CHAUDHARI [facility] Outpatient Encounter [id number] 04/13 [facility] [place] [facility] Outpatient Encounter [id number] 04/13 [facility] [place] [facility] Outpatient Encounter [id number] 04/18 [facility] QNHP OL DIG ASSMT&MGMT 11-20 [id number] Diagnos is: ICD-10- CM Z79.01 snf (curren t) use of anticoa gulants
ELVIS CHAVEZ 04/23 [facility] [place] [facility] Outpatient Encounter [id number] 04/25 [place] [facility] [place] [facility] Outpatient Encounter [id number] Diagnos is: ICD-10- CM E11.8 Type 2 diabete s mellitu s with unspeci fied complic ations< br/> MONTSERRAT GARZA 04/26 [place] [facility] [place] [facility] Outpatient Encounter [id number] 04/26 [place] [facility] [place] [facility] Outpatient Encounter [id number] 04/26 [place] [facility] [place] [facility] OFFICE O/P EST MOD 30-39 MIN [id number] Diagnos is: ICD-10- CM F31.81 Bipolar II disorde r
Kayla PURI 04/30 [facility] [place] [facility] MTMS BY PHARM ADDL 15 MIN [id number] Diagnos is: ICD-10- CM E11.8 Type 2 diabete s mellitu s with unspeci fied complic ations< br/> Bill MURPHY EBECCA A 04/30 [facility] [place] [facility] Outpatient Encounter [id number] 05/01 [facility] [place] [facility] Outpatient Encounter [id number] 05/02 [place] [facility] [place] [facility] Outpatient Encounter [id number] 05/04 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
SARAH FORTUNE 05/08 [place] [facility] [place] [facility] Outpatient Encounter [id number] 05/08 [place] [facility] [place] [facility] Outpatient Encounter [id number] KIARRA BOOTH 05/11 [place] [facility] [place] [facility] Outpatient Encounter [id number] 05/16 [place] [facility] [place] [facility] Outpatient Encounter [id number] 05/16 [facility] Outpatient Encounter [id number] ROSA MARIAMAYO KETAN Cox 05/18 [facility] IS [facility] OFFICE O/P EST SF 10-19 MIN [id number] Diagnos is: ICD-10- CM 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
SHAHAB LYLES MD 05/23 [facility] MTMS BY PHARM ADDL 15 MIN [id number] Diagnos is: ICD-10- CM E11.8 Type 2 diabete s mellitu s with unspeci fied complic ations< br/> Kayla BURLESON 06/06 [facility] OFFICE O/P EST LOW 20-29 MIN [id number] Diagnos is: ICD-10- CM M16.11 Unilate ral primary osteoar thritis , right hip<br/ > SHALONDA SANTANA 06/06 [facility] Outpatient Encounter [id number] 06/06 [facility] Outpatient Encounter [id number] 06/26 [facility] Outpatient Encounter [id number] 07/05 [facility] MTMS BY PHARM ADDL 15 MIN [id number] Diagnos is: ICD-10- CM E11.8 Type 2 diabete s mellitu s with unspeci fied complic ations< br/> Kayla BURLESON 07/11 [facility] OFFICE O/P EST MOD 30-39 MIN [id number] Diagnos is: ICD-10- CM I10 Essenti al (primar y) hyperte nsion<b r/> ADAN CHAUDHARI NJAMIN E 08/15 [place] [facility] [place] [facility] Outpatient Encounter [id number] 08/17 [place] [facility] [place] [facility] Outpatient Encounter [id number] 08/18 [place] [facility] [place] [facility] OFFICE O/P EST MOD 30-39 MIN [id number] Diagnos is: ICD-10- CM F31.81 Bipolar II disorde r
Kayla PURI 08/21 [place] [facility] [place] [facility] OFFICE O/P EST SF 10-19 MIN [id number] Diagnos is: ICD-10- CM M17.0 Bilkrystal al primary osteoar thritis of knee
SOFIA VARELA 08/28 [place] [facility] [place] [facility] Outpatient Encounter [id number] 08/29 [place] [facility] [place] [facility] Outpatient Encounter [id number] 08/31 [place] [facility] [place] [facility] Outpatient Encounter [id number] RA JACOB NJU 09/07 [place] [facility] [place] [facility] Outpatient Encounter [id number] 09/10 [place] [facility] [place] [facility] Outpatient Encounter [id number] 09/10 [place] [facility] [place] [facility] OFF/OP CNSLTJ NEW/EST MOD 40 [id number] Diagnos is: ICD-10- CM E66.09 Other obesity due to excess calorie s
HARSH ALVAREZ 09/11 [place] [facility] [place] [facility] Outpatient Encounter [id number] 09/25 [place] [facility] [place] [facility] ORTHC/PROS TC MGMT SBSQ ENC [id number] Diagnos is: ICD-10- CM E11.69 Type 2 diabete s mellitu s with other specifi ed complic ation<b r/> NICANOR HOYT S 09/28 [place] [facility] ORAL FUNCTION THERAPY [id number] Diagnos is: ICD-10- CM R13.12 Dysphag ia, orophar yngeal phase<b r/> LATRELL POOLE AN P 09/28 [place] [facility] [place] [facility] Outpatient Encounter [id number] MARYJO SCHOFIELD 10/08 [place] [facility] [place] [facility] Outpatient Encounter [id number] 10/11 [place] [facility] [place] [facility] Outpatient Encounter [id number] 10/16 [place] [facility] [place] [facility] OFFICE O/P EST MOD 30-39 MIN [id number] Diagnos is: ICD-10- CM E11.8 Type 2 diabete s mellitu s with unspeci fied complic ations< br/> JEN KINCAID AEL 11/06 [place] [facility] [place] [facility] Outpatient Encounter [id number] 11/11 [place] [facility] [place] [facility] OFFICE O/P EST MOD 30-39 MIN [id number] Diagnos is: ICD-10- CM F31.81 Bipolar II disorde r
Kayla PURI 11/19 [place] [facility] [place] [facility] Outpatient Encounter [id number] 11/19 [place] [facility] [place] [facility] Outpatient Encounter [id number] 12/14 [place] [facility] [place] [facility] Outpatient Encounter [id number] 12/17 [place] [facility] [place] [facility] Outpatient Encounter [id number] 12/28 [place] [facility] [place] [facility] TST EVAL PHYS/QHP [place] [id number] Diagnos is: ICD-10- CM F03.A18 Unspeci fied dementi a, mild, with other behavio ral disturb
LYLES,JAMIE N 12/31 [place] [facility] [place] [facility] Outpatient Encounter [id number] 01/04 [place] [facility] [place] [facility] Outpatient Encounter [id number] 01/16 [place] [facility] [place] [facility] TST EVAL PHYS/QHP 1ST [id number] Diagnos is: ICD-10- CM F03.A18 Unspeci fied dementi a, mild, with other behavio ral disturb
LYLES,JAMIE N 01/17 [place] [facility] [place] [facility] Outpatient Encounter [id number] 01/24 [place] [facility] [place] [facility] Outpatient Encounter [id number] 01/29 [place] [facility] [place] [facility] OFFICE O/P EST LOW 20-29 MIN [id number] Diagnos is: ICD-10- CM M16.11 Unilate ral primary osteoar thritis , right hip<br/ > SOFIA VARELA 02/13 [place] [facility] [place] [facility] Outpatient Encounter [id number] 02/13 [place] [facility] [place] [facility] Outpatient Encounter [id number] 02/13 [place] [facility] [place] [facility] Outpatient Encounter [id number] 02/14 [facility] [place] [facility] Outpatient Encounter [id number] 02/20 [facility] [place] [facility] Outpatient [facility]counter [id number] 02/23 [facility] [place] [facility] ELECTROCAR DIOGRAM COMPLETE [id number] Diagnos is: ICD-10- CM Z13.6 Encount er for screeni ng for cardiov ascular disorde rs
Sabrina WILL 02/25 [facility] [place] [facility] OFFICE O/P EST MOD 30-39 MIN [id number] Diagnos is: ICD-10- CM Z01.818 Encount er for other preproc edural examina tion
RAFFI MG 02/25 [facility] [place] [facility] Outpatient Encounter [id number] 02/25 [facility] [place] [facility] Outpatient Encounter [id number] 02/28 [facility] [place] [facility] Outpatient Encounter [id number] 03/05 [facility] [place] [facility] PRO PHONE CALL 11-20 MIN [id number] Diagnos is: ICD-10- CM E11.8 Type 2 diabete s mellitu s with unspeci fied complic ations< br/> LUCY WHITLOCK I M 03/07 [facility] [place] [facility] Outpatient Encounter [id number] 03/07 [facility] [place] [facility] Outpatient Encounter [id number] 03/13 [facility] [place] [facility] Outpatient Encounter [id number] 04/05 [facility] [place] [facility] OFFICE O/P EST LOW 20-29 MIN [id number] Diagnos is: ICD-10- CM M16.11 Unilate ral primary osteoar thritis , right hip<br/ > PATITO FIGUEROA A 04/19 [facility] Outpatient Encounter [id number] 05/14 [facility] Outpatient Encounter [id number] 05/14 [facility] OFFICE O/P EST HI 40-54 MIN [id number] Diagnos is: ICD-10- CM F31.81 Bipolar II disorde r
Diego HONEYCUTT 05/20 [facility] Outpatient Encounter [id number] 06/04 [facility] SELF CARE MNGMENT TRAINING [id number] Diagnos is: ICD-10- CM F03.A4 Unspeci fied dementi a, mild, with anxiety
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 Social History Type Response Date Comment [facility] Tobacco smoking status IDIS RI-TOBACCO FORMER USER 08/15/2022 [facility] History of tobacco use RI-TOBACCO QUIT 1 5 YRS OR MORE 08/15/2022 [facility] [place] History of tobacco use RI-TOBACCO FORMER USER 08/21/2021 [facility] [place] History of tobacco use RI-TOBACCO FORMER USER 07/09/2018 [facility] [place] History of tobacco use FORMER TOBACCO US ER 7Y OR GREATER 07/18/2017 [facility] [place] History of tobacco use FORMER TOBACCO US ER 7Y OR GREATER 08/14/2016 [facility] [place] History of tobacco use FORMER TOBACCO US ER 7Y OR GREATER 06/29/2015 [facility] [place] History of tobacco use FORMER TOBACCO US ER 7Y OR GREATER 01/06/2014 [facility] [place] History of tobacco use FORMER TOBACCO US ER 7Y OR GREATER 01/04/2012 [facility] [place] Plan of Care List of future care activities from Department of Veterans Affairs facilities. Additional future care activities may be listed in the Assessment and Plan section. Date/Time Care Activity Care Activity Detail Facili ty 08/21/2023 AMBULATORY - PSYCHIATRY AMBULATORY - PSYC HIATRY [facility] [place]
--- OUTSIDE RECORDS SUMMARY | 2023-08-13 12:22 | XMS_ITS | Encounter Summary ---
Author Name Department of Vetera Affairs Organization [facility] of Veter[facility] Affairs Address [address] [place] [address] Support Name Relationship Address Phone DONNA SIRIA Next of Kin [address] [place], [place] [phone] SIRIA THOMPSON Emergency Contact [address] [place] [phone] NATHALIE DING Emergency Contact Unknown Insurance Providers: [...] PART A Sep 26, 2012 PART A [id number] [facility] [phone] JUAN THOMPSON JR PATIENT MEDICARE (WNR) MEDICARE (M) PART B Sep 26, 2012 PART B [id number] [facility] [phone] JUAN THOMPSON JR PATIENT Selected Encounter This section includes the information on record at [place] for the Encounter. Date/Time Encounter Type Encounter Description Reason Provider Source Sep 28, 2022 08:30 AM ORTHC/PROSTC MGMT SBSQ ENC PROSTHETICS/ORTHO TICS ICD-10-CM E11.69 Type 2 diabetes mellitus with other specified complication MCKAYLA HOYT Encounter Template Text not used by [place] Assessments - Encounter Diagnoses This section includes the primary and secondary diagnoses documented for the Encounter. Date/Time Primary/Secondary Diagnosis Diagnosis Name Provider Source Sep 30, 2022 03:20 PM PRIMARY Type 2 diabetes mellitus with other specified complication MCKAYLA HOYT [facility] Plan of Treatment: Future Appointments (+ 6 months) and Future Tests (+/- 45 days) The Plan of Treatment section includes future care activities for the patient from all [place] [facility]. This section includes future appointments and future orders which are active, pending or scheduled. Future Appointments This section includes appointments that were scheduled to occur 6 months from the date of the Encounter, up to a maximum of 20 appointments. The data comes from all [place] treatment facilities. Appointment Date/Time Appointment Type Appointme nt Facility Name Oct 01, 2022 07:00 AM [facility]ORY [facility] NONE [place] [facility] Oct 01, 2022 07:15 AM AMBULATORY - NONE [place] [facility] Nov 06, 2022 10:00 AM [place]IC[place] [facility] Nov 06, 2022 12:45 PM AMB[facility]ORY - NONE [place] [facility] Nov 19, 2022 11:00 AM [place] [facility] November 27, 2022 01:15 PM AMBULATORY - NONE [place] [facility] Dec 28, 2022 10:30 AM [place] [place]ICINE [place] [facility] Dec 31, 2022 09:00 AM [place] [facility] Jan 16, 2023 10:00 AM AM[facility] [facility] Jan 17, 2023 10:00 AM AM[place] [facility] Feb 13, 2023 01:45 PM [place] [place] [facility] Feb 13, 2023 03:15 PM AM[facility]ORY - NONE [place] [facility] Feb 25, 2023 09:15 AM [place] [place]IC[place] [facility] Feb 25, 2023 09:30 AM [place] [place]ICINE [place] [facility] Feb 25, 2023 11:00 AM [place]ORY [place]ICINE [place] [facility] Mar 07, 2023 08:30 AM [place] [place]ICINE [place] [facility] Mar 31, 2023 07:00 AM AM[facility]ULATORY - NONE [place] [facility] Lab Results: +/- 30 days of [...] Result - Unit Interpretation Reference Range Comment Sep 11, 2022 12:52 PM [facility] VITAMIN A Specimen Type: SERUM Comment: Vitamin supplementation within 24 hours prior to blood draw may affect the accuracy of the results. This test was developed and its analytical performance characteristics have been determined by [facility] [place], [place]. It has not been cleared or approved by the U.S. Food and Drug Administration. This assay has been validated pursuant to the CLIA regulations and is used for clinical purposes. Test Performed by [facility], [facility], [address] [place] [address] Devante Meyer M.D., Ph.D., Director of Laboratories , CLIA [id number] Ordering Provider: ABBY COHEN Report Released Date/Time: Sep 11, 2022 11:28 AM Reporting Lab: [facility] [id number] Performing Lab: [address] VITAMIN A 58 [id number] Sep 11, 2022 12:52 PM [facility] PTH-N-TACT Specimen Type: PLASMA No comment entered. Ordering Provider: ABBY COHEN Report Released Date/Time: Sep 11, 2022 11:28 AM Reporting Lab: [facility] [id number] Performing Lab: [facility] [address] PTH-N-TAC T 62.1 8.7-77.1 Social History: Smoking Status (Most current) and Tobacco Use (All prior to encounter date) This section includes the most current, and the historical, smoking and tobacco- related health factors from the [facility] where the Encounter took place. Current Smoking Status This section includes the most current smoking, or tobacco-related health factor, from the [place] facility where the Encounter took place. Date/Time Current Smoking Status Comment Aj benítezy Aug 15, 2022 09:00 AM VA-TOBACCO QUIT 15 YRS OR MORE [facility] Tobacco Use History This section includes a history of the smoking, or tobacco-related health factors, that were collected on or before the date of the Encounter. The data comes from the [place] facility where the Encounter took place. Date/Time Smoking Status/Tobacco Use Comment F acility Aug 15, 2022 09:00 AM VA-TOBACCO QUIT 15 YRS OR MORE [facility] Aug 21, 2021 01:00 PM VA-TOBACCO FORMER USER [facility] Aug 21, 2021 01:00 PM VA-TOBACCO QUIT 15 YRS OR MORE [facility] Jul 09, 2018 08:58 AM VA-TOBACCO FORMER USER [facility] Jul 09, 2018 08:58 AM VA-TOBACCO QUIT 15 YRS OR MORE [facility] Jul 18, 2017 09:58 AM FORMER TOBACCO USER 7Y OR GREATE R [facility] Aug 14, 2016 10:59 AM FORMER TOBACCO USER 7Y OR GREATE R [facility] Jun 29, 2015 02:03 PM FORMER TOBACCO USER 7Y OR GREATE R [facility] Jan 06, 2014 03:04 PM FORMER TOBACCO USER 7Y OR GREATE R [facility] Jan 04, 2012 08:36 AM FORMER TOBACCO USER 7Y OR GREATE R [facility] Radiology Reports: +/- 30 days [...] the Encounter. The data comes from all [facility] facilities. Date/Time Radiology Report Provider Source Sep 28, 2022 08:55 AM ESOPHAGRAM VIDEO S WALL: DONNA,JUAN LEDESMAIC [id number] -1945 [facility] Date: SEP 28, 2022@08:55 Req Phys: VIPUL CRANE Loc: [facility] APACT L RES 03 WH 4F (Req' Img Loc: MAIN X-RAY Service: Unknown (Case [id number] COMPLETE) ESOPHAGRAM VIDEO SWALLOW (RAD Detailed) CPT:85037 Contrast Media : Barium Reason for Study: dysphagia Clinical History: [place] IS NOT under investigation for COVID-19 or [...] 28, 2022 Date Verified: SEP 28, 2022 Licensed Final Expense Agents E-Sig:/ES/VALENTINA LEON MD Report: EXAMINATION: ESOPHAGRAM VIDEO [...] Primary Interpreting Staff: VALENTINA LEON MD, RADIOLOGIST (Licensed Final Expense Agents) Primary Interpreting Resident: MARE ROMERO MD, TELEVISION REPORTER /VALENTINA CHAMPAGNE [facility] Encounter Notes: All associated encounter notes This section contains the clinical notes associated to the Encounter. Date/Time Encounter Note(s) Provider Source Sep 28, 2022 08:30 AM ORTHOTICS PROSTHET ICS CONSULT: LOCAL TITLE: PROSTHETICS CONSULT STANDARD TITLE: ORTHOTICS PROSTHETICS CONSULT DATE OF NOTE: SEP 28, 2022@08:30 ENTRY DATE: SEP 30, 2022@15:16:47 AUTHOR: MCKAYLA HOYT EXP COSIGNER: URGENCY: STATUS: COMPLETED Provisional Diagnosis: Type 2 Diabetes Mellitus with other specified Complication(ICD-10-CM E11.69) Depth inlay shoe A extra depth shoe with a removable insert to accommodate foot orthotics. Available in low quarter or boot height with lace or velcro closure. Patient was seen in prosthetics department for evaluation of extra depth shoe and accommodative arch support. Patient is a type II diabetic male with neuropathy. Patient's shoes and socks were doffed and feet evaluated. Patient would benefit from extra depth shoes and custom accommodative arch supports in order to protect his at risk feet and distribute pressures evenly. EDUCATION: Education was provided to patient during this encounter. Patient indicated readiness to learn about educational information re: the following topics: donning/doffing, wash/care instructions, how to report a concern. Additional education training is not indicated. Patient indicates readiness to learn, verbalizes understanding, agreement and satisfaction with the treatment plan. Patient denies further questions. Patient's EDS and inserts will be mailed when received. Please create PO and order from Dr. Herrera: [id number] x [address] 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
--- OUTSIDE RECORDS SUMMARY | 2023-08-13 12:22 | XMS_ITS | Encounter Summary ---
Author Name Department of Vetera Affairs Organization Department of Vetera Affairs Address [address] [place] [address] Support Name Relationship Address Phone SIRIA THOMPSON Next of Kin [address] [place], [place] [phone] SIRIA THOMPSON Emergency Contact [address] [place] [phone] NATHALIE DING Emergency Contact Unknown Insurance Providers: [...] PART B Sep 26, [id number] [facility] [phone] JUAN THOMPSON JR PATIENT MEDICARE (WNR) MEDICARE (M) PART A Sep 26, 2012 PART A [id number] [phone] JUAN THOMPSON JR PATIENT Selected Encounter This section includes the information on record at [place] for the Encounter. Date/Time Encounter Type Encounter Description Reason Pro vider Source Oct 16, 2022 09:38 AM Outpatient Encounter WEIGHT MGMT & MOVE! PROG - IND IHE Encounter Template Text not used by [place] Plan of Treatment: Future Appointments (+ 6 [...] 20 appointments. The data comes from all [place] treatment facilities. Appointment Date/Time Appointment Type Appointme nt Facility Name Nov 06, 2022 10:00 AM [place]ORY [place]IC[place] [facility] Nov 06, 2022 12:45 PM AMBUL[facility]ORY - NONE [place] [facility] Nov 19, 2022 11:00 AM AM[place] [facility] November 27, 2022 01:15 PM AMBUL[facility]ORY - NONE [place] [facility] Dec 28, 2022 10:30 AM [place]ICINE [place] [facility] Dec 31, 2022 09:00 AM AM[place]UL[place] [facility] Jan 16, 2023 10:00 AM AM[place]UL[place] [facility] Jan 17, 2023 10:00 AM AM[place] [facility] Feb 13, 2023 01:45 PM [place]GERY [place] [facility] Feb 13, 2023 03:15 PM AMBUL[facility]ORY - NONE [place] [facility] Feb 25, 2023 09:15 AM [place]ORY [place] MEDICINE [place] [facility] Feb 25, 2023 09:30 AM [place]ORY [place] MEDICINE [place] [facility] Feb 25, 2023 11:00 AM AM[place]UL[place]ORY - MEDICINE [place] [facility] Mar 07, 2023 08:30 AM AMBUL[place]ORY - MEDICINE [place] [facility] Mar 31, 2023 07:00 AM AMBULATORY - NONE [place] [facility] Lab Results: +/- 30 days of the encounter This section includes the Chemistry and Hematology Lab Results on record with [place] for the patient. Radiology Reports and Pathology Reports are provided separately, in subsequent sections. Lab Results This section contains the Chemistry/Hematology Results that were resulted 30 days before or 30 daysafter the date of the Encounter. Date/Time Source Result Type Result - Unit Interpretation Reference Range Comment Nov 06, 2022 12:38 PM [facility] VITAMIN B-1,BLOOD Specimen Type: BLOOD Comment: Vitamin supplementation within 24 hours prior to blood draw may affect the accuracy of the results. This test was developed and its analytical performance characteristics have been determined by [facility] [place], [place]. It has not been cleared or approved by the U.S. Food and Drug Administration. This assay has been validated pursuant to the CLIA regulations and is used for clinical purposes. Test Performed by [facility], [facility], [address] [place] [address] Devante Meyer M.D., Ph.D., Director of Laboratories , CLIA [id number] Ordering Provider: APRIL KINCAID Report Released Date/Time: Nov 06, 2022 11:06 AM Reporting Lab: [facility] [address] Performing Lab: [facility] [id number] [place] [address] VITAMIN B-1,BLOOD 173 78-185 Nov 06, 2022 12:38 PM [facility] HEMOGLOBIN A1C Specimen Type: BLOOD Comment: [...] 11:06 AM Reporting Lab: [facility] [id number] Performing Lab: [facility] [address] HEMOGLOBIN A1C 8.6 H 4.0-6.0 Nov 06, 2022 12:38 PM [facility] COMPREHENSIVE METABOLIC PANEL+MG Specimen Type: PLASMA No comment entered. Ordering Provider: APRIL KINCAID Report Released Date/Time: Nov 06, 2022 11:06 AM Reporting Lab: [facility] [address] Performing Lab: [facility] [address] CREATININE 1.1 0.7-1.2 UREA NITROGEN 19 8-26 [...] and tobacco- related health factors from the [place] facility where the Encounter took place. Current Smoking Status This section includes the most current smoking, or tobacco-related health factor, from the [place] facility where the Encounter took place. Date/Time Current Smoking Status Comment Facil ity Aug 15, 2022 09:00 AM VA-TOBACCO FORMER USER [facility] Tobacco Use History This section includes a history of the smoking, or tobacco-related health factors, that were collected on or before the date of the Encounter. The data comes from the [place] facility where the Encounter took place. Date/Time Smoking Status/Tobacco Use Comment F acility Aug 15, 2022 09:00 AM VA-TOBACCO QUIT 15 YRS OR MORE [facility] Aug 21, 2021 01:00 PM VA-TOBACCO FORMER USER [facility] Aug 21, 2021 01:00 PM VA-TOBACCO QUIT 15 YRS OR MORE [facility] Jul 09, 2018 08:58 AM VA-TOBACCO FORMER USER [facility] Jul 09, 2018 08:58 AM VA-TOBACCO QUIT 15 YRS OR MORE [facility] Jul 18, 2017 09:58 AM FORMER TOBACCO USER 7Y OR GREATE R [facility] Aug 14, 2016 10:59 AM FORMER TOBACCO USER 7Y OR GREATE R [facility] Jun 29, 2015 02:03 PM FORMER TOBACCO USER 7Y OR GREATE R [facility] Jan 06, 2014 03:04 PM FORMER TOBACCO USER 7Y OR GREATE R [facility] Jan 04, 2012 08:36 AM FORMER TOBACCO USER 7Y OR GREATE R [facility] Radiology Reports: +/- 30 days of [...] the Encounter. The data comes from all [facility] facilities. Date/Time Radiology Report Provider Source Sep 28, 2022 08:55 AM ESOPHAGRAM VIDEO S WALLMARTY: JUAN THOMPSON [id number] -1945 M Ex Date: SEP 28, 2022@08:55 Req Phys: VIPUL CRANE Loc: [facility] APACT L RES 03 WH 4F (Req' Img Loc: MAIN X-RAY Service: Unknown (Case [id number] COMPLETE) ESOPHAGRAM VIDEO SWALLOW (RAD Detailed) CPT:58085 Contrast Media : Barium Reason for Study: dysphagia Clinical History: [place] IS NOT under investigation for COVID-19 or [...] 28, 2022 Date Verified: SEP 28, 2022 Spray Foam Installer E-Sig:/ES/VALENTINA HARVEY MD Report: EXAMINATION: ESOPHAGRAM VIDEO [...] Primary Interpreting Staff: VALENTINA HARVEY MD, RADIOLOGIST (Spray Foam Installer) Primary Interpreting Resident: MARE ROMERO MD, CLOTH HANDLER /VALENTINA CHAMPAGNE [facility] Encounter Notes: All associated encounter notes This section contains the clinical notes associated to the Encounter. Date/Time Encounter Note(s) Provider Source Oct 16, 2022 09:38 AM REPORT OF CONTACT: LOCAL TITLE: APPOINTMENT SCHEDULING NOTE STANDARD TITLE: REPORT OF CONTACT DATE OF NOTE: OCT 16, 2022@09:38 ENTRY DATE: OCT 16, 2022@09:38:43 AUTHOR: KSIP GIBSON EXP COSIGNER: URGENCY: STATUS: COMPLETED APPOINTMENT SCHEDULING NOTE Has ADDENDA Attempted to schedule Return to clinic (RTC) Contact attempt made to 1st attempt Telephone 2nd attempt Telephone Disposition order request after Oct Left message on voice mail to call back to this number [phone] If calls back, schedule appt for: Activity: 10/03/2022 15:21 New Order entered by ISAEL ALVAREZ (PHYSICIAN) Order Text: Return to [facility] MOVE DIET 3D on or around ( Oct 03, 2022 ) for a total of 1 appointment(s) ph/vvc ok if pt prefers;review current supplements/bariat nutr guidelines /es/ SKIP GIBSON RN RN Signed: 10/16/2022 09:40 10/16/2022 ADDENDUM STATUS: COMPLETED The following patient state he missed a call. Patient is requesting a return call to discuss the reason for the appt. JUAN THOMPSON [id number] /es/ [facility] Signed: 10/16/2022 10:22 Receipt Acknowledged By: * AWAITING SIGNATURE * SKIP GIBSON 10/16/2022 ADDENDUM STATUS: COMPLETED I also left voicemail for patient and sent secure message through [employer] website. /es/ WALTER BOWEN Advanced Hadoop Application Developer Signed: 10/16/2022 13:34 10/31/2022 ADDENDUM STATUS: COMPLETED Failed Scheduling mandated efforts RTC order will be dispositioned. /pablo/ SKIP GIBSON RN RN Signed: 10/31/2022 18:22 Receipt Acknowledged By: * AWAITING SIGNATURE * ISAEL ALVAREZ 10/31/2022 ADDENDUM STATUS: COMPLETED Phone call attempted, no answer, message left for a return call at [phone]. /pablo/ SKIP GIBSON RN RN Signed: 10/31/2022 18:24 SKIP GIBSON [facility]
--- OUTSIDE RECORDS SUMMARY | 2023-08-13 12:23 | XMS_ITS | Encounter Summary ---
Author Name Department of Vetera Affairs Organization Department of Veter[facility] ns Affairs Address [address] [place] [address] Support Name Relationship Address Phone SIRIA THOMPSON Next of Kin [address] [place], [place] [id number] SIRIA THOMPSON Emergency Contact [address] [place] [phone] NATHALIE DING Emergency Contact Unknown Insurance Providers: [...] PART A Sep 26, 2012 PART A [id number] [facility] [phone] JUAN THOMPSON JR PATIENT MEDICARE (WNR) MEDICARE (M) PART B Sep 26, 2012 PART B [id number] [phone] JUAN THOMPSON JR PATIENT Selected Encounter This section includes the information on record at [place] for the Encounter. Date/Time Encounter Type Encounter Description Reason Pro vider Source Nov 19, 2022 04:50 PM Outpatient Encounter TELEPHONE PRIMARY CARE IHE Encounter Template Text not used by [place] Plan of Treatment: Future Appointments (+ 6 months) and Future Tests (+/- 45 days) The Plan of Treatment section includes future care activities for the patient from all [place] treatmentfacilities. This section includes future appointments and future orders which are active, pending or scheduled. Future Appointments This section includes appointments that were scheduled to occur 6 months from the date of the Encounter, up to a maximum of 20 appointments. The data comes from all [place] treatment facilities. Appointment Date/Time Appointment Type Appointme nt Facility Name November 27, 2022 01:15 PM [place] [facility] Dec 28, 2022 10:30 AM [place] [facility] Dec 31, 2022 09:00 AM AM[place] [facility] Jan 16, 2023 10:00 AM AM[place] [facility] Jan 17, 2023 10:00 AM AM[place] [facility] Feb 13, 2023 01:45 PM [place] [facility] Feb 13, 2023 03:15 PM [place]ONE [place] [facility] Feb 25, 2023 09:15 AM [place] [facility] Feb 25, 2023 09:30 AM [place] [facility] Feb 25, 2023 11:00 AM [place]IC[place] [facility] Mar 07, 2023 08:30 AM [place] [facility] Mar 31, 2023 07:00 AM [place] [facility] Apr 19, 2023 10:30 AM [place] [facility] May 14, 2023 10:00 AM [place] [facility] May 20, 2023 08:00 AM AMB[place] - [place] [facility] Lab Results: +/- 30 days [...] Range Comment Nov 06, 2022 12:38 PM [facility] VITAMIN B-1,BLOOD Specimen Type: BLOOD Comment: Vitamin supplementation within 24 hours prior to blood draw may affect the accuracy of the results. This test was developed and its analytical performance characteristics have been determined by [facility] [place], [place]. It has not been cleared or approved by the U.S. Food and Drug Administration. This assay has been validated pursuant to the CLIA regulations and is used for clinical purposes. Test Performed by [facility], [facility], [address] [place], [place] Devante Meyer M.D., Ph.D., Director of Laboratories , [place] [id number] Ordering Provider: APRIL KINCAID Report Released Date/Time: Nov 06, 2022 11:06 AM Reporting Lab: [facility] [id number] Performing Lab: [address] VITAMIN B-1,BLOOD [phone] Nov 06, 2022 12:38 PM [facility] HEMOGLOBIN A1C Specimen Type: BLOOD [...] 06, 2022 11:06 AM Reporting Lab: [facility] [id number] Performing Lab: [facility] [address] HEMOGLOBIN A1C 8.6 H 4.0-6.0 Nov 06, 2022 12:38 PM [facility] COMPREHENSIVE METABOLIC PANEL+MG Specimen Type: PLASMA No comment entered. Ordering Provider: APRIL KINCAID Report Released Date/Time: Nov 06, 2022 11:06 AM Reporting Lab: [facility] [id number] Performing Lab: [facility] [id number] CREATININE 1.1 0.7-1.2 UREA NITROGEN 19 8-26 [...] and tobacco- related health factors from the [place] facility where the Encounter took place. Current Smoking Status This section includes the most current smoking, or tobacco-related health factor, from the [place] facility where the Encounter took place. Date/Time Current Smoking Status Comment Facil ity Aug 15, 2022 09:00 AM [place]-TOBACCO QUIT 15 YRS OR MORE [facility] Tobacco Use History [...] YRS OR MORE [facility] Aug 21, 2021 01:00 PM VA-TOBACCO FORMER USER [facility] Aug 21, 2021 01:00 PM VA-TOBACCO QUIT 15 YRS OR MORE [facility] Jul 09, 2018 08:58 AM VA-TOBACCO FORMER USER [facility] Jul 09, 2018 08:58 AM VA-TOBACCO QUIT 15 YRS OR MORE [facility] Jul 18, 2017 09:58 AM FORMER TOBACCO USER 7Y OR GREATE R [facility] Aug 14, 2016 10:59 AM FORMER TOBACCO USER 7Y OR GREATE R [facility] Jun 29, 2015 02:03 PM FORMER TOBACCO USER 7Y OR GREATE R [facility] Jan 06, 2014 03:04 PM FORMER TOBACCO USER 7Y OR GREATE R [facility] Jan 04, 2012 08:36 AM FORMER TOBACCO USER 7Y OR GREATE R [facility] Radiology Reports: +/- 30 days [...] the Encounter. The data comes from all [place] treatment facilities. Date/Time Radiology Report Provider Source November 27, 2022 01:02 PM DXA BONE DENSITY: JUAN THOMPSON [id number] -1945 M Exm Date: NOVEMBER 27, 2022@13:02 Req Phys: ABBY COHEN Pat Loc: [facility]SP METABOLIC EVAL CONSULT 3D Img Loc: NUC MED Service: Unknown (Case 1252 COMPLETE) DXA BONE DENSITY AXIAL (NM Detailed) CPT:22784 Reason for Study: r/o osteoporosis (Case 1253 COMPLETE) TECHNICAL CALC OF TBS (TRABECULAR(NM Detailed) CPT:53217 Clinical History: [place] IS NOT under investigation for COVID-19 or is COVID-19 negative Has history of nora-en-y bypass; evaluated in endocrine clinic, ensure no osteoporosis/penia Responsible provider name and phone number to notify for critical findings if other than user placing the order and pager listed below: User placing orders pager: [phone] LAST CREATININE 1.1 (08/28/22) Report Status: Verified Date Reported: NOVEMBER 28, 2022 Date Verified: NOVEMBER 28, 2022 Gas Tender E-Sig:/ES/ABDOULAYE RIZVI MD Report: DXA BONE DENSITY SCAN INDICATION: Rule out osteoporosis. Has history of Nora-en-Y bypass.. COMPARISONS: DXA Scan(s) 12/05/2017. CLINICAL INFORMATION: No additional clinical information. 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 Model: [address] A. TECHNIQUE/LIMITATIONS: The technical quality of the [...] Staff: ABDOULAYE RIZVI MD, STAFF NUCLEAR RADIOLOGIST (Gas Tender) /CPD ABDOULAYE RIZVI [facility] Encounter Notes: All associated encounter notes This section contains the clinical notes associated to the Encounter. Date/Time Encounter Note(s) Provider Source Nov 19, 2022 04:50 PM HOME HEALTH REFERR AL NOTE: LOCAL TITLE: [facility] STANDARD TITLE: HOME HEALTH REFERRAL NOTE DATE OF NOTE: NOV 19, 2022@16:50 ENTRY DATE: NOV 19, 2022@16:50:07 AUTHOR: NATHALIE ABRAHAM EXP COSIGNER: URGENCY: STATUS: COMPLETED HOME HEALTH CARE CERTIFICATION AND PLAN OF CARE SIGNED BY: Dr. Ordaz for [facility] in [place], [place] Certification period From: November To: Jan /pablo/ NATHALIE ABRAHAM RN REGISTERED NURSE Signed: 11/19/2022 16:50 NATHALIE ABRAHAM [facility]
--- OUTSIDE RECORDS SUMMARY | 2023-08-13 12:23 | XMS_ITS | Encounter Summary ---
Author Name Department of Vetera ns Affairs Organization Department of Vetera ns Affairs Address [address] [place] [address] Support Name Relationship Address Phone SIRIA THOMPSON Next of Kin [address] [place], [place] [phone] SIRIA THOMPSON Emergency Contact [address] [phone] NATHALIE CLINE Emergency Contact Unknown Insurance Providers: All historical [...] PART A Sep 26, 2012 PART A [id number] [facility] [phone] JUAN THOMPSON JR PATIENT MEDICARE (WNR) MEDICARE (M) PART B Sep 26, 2012 PART B [id number] JUAN THOMPSON JR PATIENT Selected Encounter This section includes the information on record at [place] for the Encounter. Date/Time Encounter Type Encounter Description Reason Pro vider Source Nov 19, 2022 11:00 AM OFFICE O/P EST MOD 30-39 MIN PSYCHOGERIATRIC - INDIVIDUAL ICD-10-CM F31.81 Bipolar II disorder ANA PURI Encounter Template Text not used by [place] Assessments - Encounter Diagnoses This section includes the primary and secondary diagnoses documented for the Encounter. Date/Time Primary/Secondary Diagnosis Diagnosis Name Provider Source Nov 19, 2022 04:23 PM PRIMARY Bipolar II disorder USHA PURI [facility] Nov 19, 2022 04:23 PM SECONDARY Mild cognitive impairment of uncertain or unknown etiology USHA PURI [facility] Plan of Treatment: Future Appointments (+ 6 months) and Future Tests (+/- 45 days) The Plan of Treatment section includes future care activities for the patient [facility]. This section includes future appointments and future orders which are active, pending or scheduled. Future Appointments This section includes appointments that were scheduled to occur 6 months from the date of the Encounter, up to a maximum of 20 appointments. The data comes from all [place] treatment facilities. Appointment Date/Time Appointment Type Appointme nt Facility Name November 27, 2022 01:15 PM [place]ORY - [place]ONE [place] [facility] Dec 28, 2022 10:30 AM [place] [facility] Dec 31, 2022 09:00 AM [place] [facility] Jan 16, 2023 10:00 AM [place] [facility] Jan 17, 2023 10:00 AM [place] [facility] Feb 13, 2023 01:45 PM [place] [facility] Feb 13, 2023 03:15 PM [place] [facility] Feb 25, 2023 09:15 AM [place]IC[place] [facility] Feb 25, 2023 09:30 AM [place]IC[place] [facility] Feb 25, 2023 11:00 AM [place]IC[place] [facility] Mar 07, 2023 08:30 AM [place]IC[place] [facility] Mar 31, 2023 07:00 AM [place]ONE [place] [facility] Apr 19, 2023 10:30 AM [place]GERY [place] [facility] May 14, 2023 10:00 AM [place] [facility] May 20, 2023 08:00 AM AM[place] [facility] Lab Results: +/- 30 days [...] Range Comment Nov 06, 2022 12:38 PM [facility] VITAMIN B-1,BLOOD Specimen Type: BLOOD Comment: Vitamin supplementation within 24 hours prior to blood draw may affect the accuracy of the results. This test was developed and its analytical performance characteristics have been determined by [facility] [place], [place]. It has not been cleared or approved by the U.S. Food and Drug Administration. This assay has been validated pursuant to the CLIA regulations and is used for clinical purposes. Test Performed by [facility], [facility], [id number] [place] [address] Devante Meyer M.D., Ph.D., Director of Laboratories , CLIA [id number] Ordering Provider: APRIL KINCAID Report Released Date/Time: Nov 06, 2022 11:06 AM Reporting Lab: [facility] [id number] Performing Lab: [address] VITAMIN B-1,BLOOD [phone] Nov 06, 2022 12:38 PM [facility] HEMOGLOBIN A1C Specimen Type: BLOOD Comment: [...] 11:06 AM Reporting Lab: [facility] [id number] Performing Lab: [facility] [address] HEMOGLOBIN A1C 8.6 H 4.0-6.0 Nov 06, 2022 12:38 PM [facility] COMPREHENSIVE METABOLIC PANEL+MG Specimen Type: PLASMA No comment entered. Ordering Provider: APRIL KINCAID Report Released Date/Time: Nov 06, 2022 11:06 AM Reporting Lab: [facility] [address] Performing Lab: [facility] [address] CREATININE 1.1 0.7-1.2 UREA NITROGEN 19 8-26 [...] and tobacco- related health factors from the [place] facility where the Encounter took place. Current Smoking Status This section includes the most current smoking, or tobacco-related health factor, from the [place] facility where the Encounter took place. Date/Time Current Smoking Status Comment Aj itstephanie Aug 15, 2022 09:00 AM VA-TOBACCO FORMER USER [facility] Tobacco Use History This section includes a history of the smoking, or tobacco-related health factors, that were collected on or before the date of the Encounter. The data comes from the [place] facility where the Encounter took place. Date/Time Smoking Status/Tobacco Use Comment F accelia Aug 15, 2022 09:00 AM VA-TOBACCO QUIT 15 YRS OR MORE [facility] Aug 21, 2021 01:00 PM VA-TOBACCO FORMER USER [facility] Aug 21, 2021 01:00 PM VA-TOBACCO QUIT 15 YRS OR MORE [facility] Jul 09, 2018 08:58 AM VA-TOBACCO FORMER USER [facility] Jul 09, 2018 08:58 AM VA-TOBACCO QUIT 15 YRS OR MORE [facility] Jul 18, 2017 09:58 AM FORMER TOBACCO USER 7Y OR GREATE R [facility] Aug 14, 2016 10:59 AM FORMER TOBACCO USER 7Y OR GREATE R [facility] Jun 29, 2015 02:03 PM FORMER TOBACCO USER 7Y OR GREATE R [facility] Jan 06, 2014 03:04 PM FORMER TOBACCO USER 7Y OR GREATE R [facility] Jan 04, 2012 08:36 AM FORMER TOBACCO USER 7Y OR GREATE R [facility] Radiology Reports: +/- 30 days of [...] the Encounter. The data comes from all [place] treatment facilities. Date/Time Radiology Report Provider Source November 27, 2022 01:02 PM DXA BONE DENSITY: JUAN THOMPSON [id number] -1945 M Exm Date: NOVEMBER 27, 2022@13:02 Req Phys: DHOLE,ABBY K Pat Loc: [facility] METABOLIC EVAL CONSULT 3D Img Loc: NUC MED Service: Unknown (Case 1252 COMPLETE) DXA BONE DENSITY AXIAL (NM Detailed) CPT:69565 Reason for Study: r/o osteoporosis (Case 1253 COMPLETE) TECHNICAL CALC OF TBS (TRABECULAR(NM Detailed) CPT:64235 Clinical History: IS NOT under investigation for COVID-19 or is COVID-19 negative Has history of nora-en-y bypass; evaluated in endocrine clinic, ensure no osteoporosis/penia Responsible provider name and phone number to notify for critical findings if other than user placing the order and pager listed below: User placing orders pager: [phone] LAST CREATININE 1.1 (08/28/22) Report Status: Verified Date Reported: NOVEMBER 28, 2022 Date Verified: NOVEMBER 28, 2022 Supervisor [employer] E-Sig:/ES/ABDOULAYE RIZVI MD Report: DXA BONE DENSITY SCAN INDICATION: Rule out osteoporosis. Has history of Nora-en-Y bypass.. COMPARISONS: DXA Scan(s) 12/05/2017. CLINICAL INFORMATION: No additional clinical information. 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 TECHNIQUE/LIMITATIONS: The technical quality of the scan [...] Staff: ABDOULAYE RIZVI MD, STAFF NUCLEAR RADIOLOGIST (Supervisor White [employer]) /CPD ABDOULAYE RIZVI [facility] Encounter Notes: All associated encounter notes This section contains the clinical notes associated to the Encounter. Date/Time Encounter Note(s) Provider Source Nov 19, 2022 04:10 PM PSYCHIATRY E & M N OTE: LOCAL TITLE: PSYCHIATRIC EVALUATION & MANAGEMENT STANDARD TITLE: PSYCHIATRY E & M NOTE DATE OF NOTE: NOV 19, 2022@16:10 ENTRY DATE: NOV 19, 2022@16:10:52 AUTHOR: USHA PURI EXP COSIGNER: URGENCY: STATUS: COMPLETED PSYCHIATRIC EVALUATION & MANAGEMENT Has ADDENDA PSYCHIATRIC EVALUATION AND MANAGEMENT FOLLOW UP VISIT Pt seen for MH followup, appropriate PPE worn throughout. Presents alone, brought by van. Feeling more depressed the past few months. Will have 4-5 day periods feeling lower mood, lower energy, then they pass. About 3-4 of these episodes since [place]. Denies any elevated mood or manic symptoms in the past several months. Thinks back on history of suicide attempt by overdose many years ago, or times when he would drive more recklessless, does not want to get into those states again (no longer drives). Suicide is NOT on my agenda. Feels he continues to enjoy life, look forward to activities like working on his book. His concern that suicide would have a negative impact on his children (who he's not seen for several years per his report), continues to be a major protective factor. He would like to see/speak with them more, but attempts to problem-solve this today are met with tangents and inability to identify any concrete steps. Given how he's been feeling the past several months, and his mental health history, he is interested in a medication adjustment. Denies any current concerns. He likes where he's living, continues to feel safe there. 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 He also acknowledges that his cognition is worsening, he's considered ordering Prevagen, and in agreement with neuropsych testing to better clarify diagnosis. MSE: Adult male appearing recorded age. Ambulates with walker, transfers independently. No abnormal or involuntary movements. Speech is fluent, no word finding deficits. Comprehension intact. Tangential during discussion, referencing irrelevant past events, needing redirection. No SI or HI. No delusions or obsessions. [facility] (09/2021) SUICIDE RISK ASSESSMENT: Low acute risk Risk factors: age, gender, race, mental health disease, history of suicide attempt, strained relationship with son per prior reports. Protective factors: established connection with the mental health clinic, motivated to improve mental and physical health, positive connection with legal guardian, safe and supportive living situation, absence of current SI or HI. ASSESSMENT: 77 yo male with PMH significant for GERD, hx bariatric surgery, AF, HTN, DM2, MCI, hx psychosis, bipolar 2 disorder, STEPHANIE and MDD, seen today for geriatric psychiatry follow-up. Interval worsening of mood, unclear precipitants, potentially seasonal variation though pt denies history of this. Given severity of MH history and current symptoms, will increase Aripiprazole to augment antidepressants. Pt motivated to attend to other aspects of his health. Will also refer for neuropsych testing. Given continued legal guardianship and supervised care setting, no acute safety concerns. Engages in treatment planning outlined below. TREATMENT PLAN: 1) Increase Aripiprazole to 20 mg po daily. Most recent metabolic labs from 2022 reviewed, continue to monitor. 2) Continue Venlafaxine 150 mg po daily. 3) Continue Bupropion 24HR 150 mg po daily. 4) Refer for NPT. 5) RTC in 2 months. Informed of this provider's anticipated move and plans to transition care at that time. Call with questions or concerns. Aware of clinic contact info and crisis/emergency services to utilize if needed. EDUCATION / SAFETY / MH TREATMENT PLAN: Treatment goals include minimizing and managing medication side effects, decreasing problematic symptoms and optimizing wellness. Patient's overall Mental Health Treatment reviewed. Patient continues to benefit from psychiatric medications as documented. Medication reconciliation for all medications managed by this prescriber was conducted at current visit. The patient has been told the purpose and side effects of the prescribed psychiatric medications. Informed consent obtained from patient and/or substitute medical decision maker where appropriate. Supportive therapy to optimize wellness, including medications, will be done as indicated during visits by MD, and RN. Patient agrees to contact this clinic with any concerns prior to next appointment. Patient is aware of additional MH services that are available, including emergency room and [facility] options. This plan will be reviewed yearly with patient, or sooner if needs change. This plan was discussed with the patient who acknowledges agreement and understanding. Total time, including time spent preparing to see patient, performing appropriate examination/evaluation, counseling and education of patient/family/caregiver, documenting clinical information in medical record, and care coordination: >30 min. /es/ USHA PURI MD Staff Psychiatrist Signed: 11/19/2022 16:23 11/23/2022 ADDENDUM STATUS: COMPLETED Call placed to phone numbers listed under Flag section in CPRS, to contact guardian and review treatment plan: , Office: [phone]. Reached voicemail of Nathalie Cline, with guardianship services for [facility], left message with my callback number. /pablo/ USHA PURI MD Staff Psychiatrist Signed: 11/23/2022 12:01 11/23/2022 ADDENDUM STATUS: COMPLETED Request Mr. Joe please contact patient's Home Health Nurse to inform them of the following medication change: We are increasing Aripiprazole from 15 mg po daily to 20 mg po daily. This will be done by replacing the 30 mg tabs (of which he was taking ONE-HALF tab), with 20 mg tabs (taking ONE FULL tab per day). Prescription will be mailed from [place] pharmacy. ------- [facility] [address] [place] [address] /es/ USHA PURI MD Staff Psychiatrist Signed: 11/23/2022 12:04 Receipt Acknowledged By: 11/23/2022 12:51 /pablo/ MYLES JOE RN-BSN, ROJAS RN-BSN, ROJAS 12/05/2022 ADDENDUM STATUS: COMPLETED 12/05/22 PM: Call placed again to Nathalie Cline with patient's guardianship services for [facility], at [phone] and [phone]. Reached VM. Left message with clinic callback info. /pablo/ USHA PURI MD Staff Psychiatrist Signed: 12/05/2022 16:07 USHA PURI [facility]
--- OUTSIDE RECORDS SUMMARY | 2023-08-13 12:24 | XMS_ITS | Encounter Summary ---
Author Name [facility] Organization [facility] Address [address] [place] [address] Support Name Relationship Address Phone SIRIA THOMPSON Next of Kin [address] [place], [place] [phone] SIRIA THOMPSON Emergency Contact [address] [place] [phone] NATHALIE DING Emergency Contact Unknown Insurance Providers: [...] PART A Sep 26, 2012 PART A [id number] [facility] [phone] JUAN THOMPSON JR PATIENT MEDICARE (WNR) MEDICARE (M) PART B Sep 26, 2012 PART B [id number] [phone] JUAN THOMPSON JR PATIENT Selected Encounter This section includes the information on record at [place] for the Encounter. Date/Time Encounter Type Encounter Description Reason Provider Source Aug 15, 2022 09:00 AM OFFICE O/P EST MOD 30-39 MIN PRIMARY CARE/MEDICINE ICD-10-CM I10 Essential (primary) hypertension DAX CHAUDHARI MIN E IHE Encounter Template Text not used by [place] Assessments - Encounter Diagnoses This section includes the primary and secondary diagnoses documented for the Encounter. Date/Time Primary/Secondary Diagnosis Diagnosis Name Provider Source Aug 15, 2022 01:03 PM PRIMARY Essential (primary) hypertension JON CRANE [facility] Aug 15, 2022 01:03 PM SECONDARY Bipolar II disorder JON CRANE [facility] Aug 15, 2022 01:03 PM SECONDARY Encounter for immunization SUSAN MEIER [facility] Aug 15, 2022 01:03 PM SECONDARY Gastritis, unspecified, without bleeding JON CRANE [facility] Aug 15, 2022 01:03 PM SECONDARY Gastro-esophageal reflux disease without esophagitis JON CRANE [facility] Aug 15, 2022 01:03 PM SECONDARY Generalized anxiety disorder JON CRANE [facility] Aug 15, 2022 01:03 PM 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 JON CRANE [facility] Aug 15, 2022 01:03 PM SECONDARY Major depressive disorder, recurrent, moderate JON CRANE [facility] Aug 15, 2022 01:03 PM SECONDARY Mild cognitive impairment of uncertain or unknown etiology JON CRANE [facility] Aug 15, 2022 01:03 PM SECONDARY Type 2 diabetes mellitus with unspecified complications JON CRANE [facility] Aug 15, 2022 01:03 PM SECONDARY Unspecified atrial fibrillation JON CRANE [facility] Plan of Treatment: Future Appointments (+ 6 months) and Future Tests (+/- 45 days) The Plan of Treatment section includes future care activities for the patient from all [facility]. This section includes future appointments and future orders which are active, pending or scheduled. Future Appointments This section includes appointments that were scheduled to occur 6 months from the date of the Encounter, up to a maximum of 20 appointments. The data comes from all [facility]. Appointment Date/Time Appointment Type Appointme nt Facility Name Aug 21, 2022 10:30 AM AMBUL[place]ORY [place] [facility] Aug 28, 2022 11:40 AM [place] [facility] Sep 03, 2022 05:00 PM AMBULATORY - REHAB MEDIC[facility] Sep 10, 2022 08:00 AM AMBULATORY - NONE [place] [facility] Sep 10, 2022 08:30 AM AMBULATORY - REHAB MEDICIN [place] [facility] Sep 10, 2022 11:00 AM AM[place]ORY [place]ONE [place] [facility] Sep 11, 2022 10:30 AM [place]IC[place] [facility] Sep 11, 2022 11:45 AM [place] [facility] Sep 28, 2022 08:30 AM AM[place]ORY - [place]ONE [place] [facility] Sep 28, 2022 09:00 AM AMB[place]ORY - [place]ONE [place] [facility] Sep 28, 2022 09:30 AM AMBULATORY - REHAB MEDICIN E [facility] Oct 01, 2022 07:00 AM [place]ORY [place]ONE [place] [facility] Oct 01, 2022 07:15 AM [place]ORY [place]ONE [place] [facility] Nov 06, 2022 10:00 AM [place]IC[place] [facility] Nov 06, 2022 12:45 PM AM[place]ORY [place]ONE [place] [facility] Nov 19, 2022 11:00 AM AMBUL[place]ORY [place] [facility] November 27, 2022 01:15 PM AM[place]UL[place]ORY - NONE [place] [facility] Dec 28, 2022 10:30 AM [place] [facility] Dec 31, 2022 09:00 AM [facility] Jan 16, 2023 10:00 AM [facility] Lab Results: +/- 30 days of the encounter This section includes the Chemistry and Hematology Lab Results on record with [place] for the patient. Radiology Reports and Pathology Reports are provided separately, in subsequent sections. Lab Results This section contains the Chemistry/Hematology Results that were resulted 30 days before or 30 daysafter the date of the Encounter. Date/Time Source Result Type Result - Unit Interpretation Reference Range Comment Sep 11, 2022 12:52 PM [facility] VITAMIN A Specimen Type: SERUM Comment: Vitamin supplementation within 24 hours prior to blood draw may affect the accuracy of the results. This test was developed and its analytical performance characteristics have been determined by [employer] [place], [place]. It has not been cleared or approved by the U.S. Food and Drug Administration. This assay has been validated pursuant to the CLIA regulations and is used for clinical purposes. Test Performed by [facility], [facility] [place], [address] [place] [address] Devante Meyer M.D., Ph.D., Director of Laboratories , CLIA [id number] Ordering Provider: ABBY COHEN Report Released Date/Time: Sep 11, 2022 11:28 AM Reporting Lab: [facility] [id number] Performing Lab: [facility] [id number] [facility] VITAMIN A 58 38-98 Sep 11, 2022 12:52 PM [facility] PTH-N-TACT Specimen Type: PLASMA No comment entered. Ordering Provider: ABBY COHEN Report Released Date/Time: Sep 11, 2022 11:28 AM Reporting Lab: [facility] [address] Performing Lab: [facility] [id number] PTH-N-TACT 62.1 8.7-77.1 Aug 28, 2022 10:51 AM [facility] HEMOGLOBIN A1C Specimen Type: BLOOD Comment: Values obtained from A1C measurements can vary. For typical A1C assays, a reported value of 7.0 could actually be between 6.7 and 7.3 if measured by a reference method. A reported value of 9.0 could actually be between 8.7 and 9.3. Ref: http://www.ngsp. org/CAPdata.asp Ordering Provider: VIPUL CRANE Report Released Date/Time: Aug 15, 2022 09:14 AM Reporting Lab: [facility] [address] Performing Lab: [facility] [address] HEMOGLOBIN A1C 8.4 H 4.0-6.0 Aug 28, 2022 10:51 AM [facility] LIPID PANEL,NON-FASTING Specimen Type: PLASMA No comment entered. Ordering Provider: VIPUL CRANE Report Released Date/Time: Aug 15, 2022 09:14 AM Reporting Lab: [facility] [phone] Performing Lab: [facility] [address] CHOLESTEROL 115 <199 .HDL 43 >40 LDL CALCULATION 58 <99 VLDL CALCULATION 14 <29 NON HDL CHOLESTEROL 72 <129 TRIG(NON FASTING) 70 <149 Aug 28, 2022 10:51 AM [facility] BASIC METABOLIC PANEL+MG Specimen Type: PLASMA No comment entered. Ordering Provider: INGRID BURLESON Report Released Date/Time: Jul 11, 2022 01:04 PM Reporting Lab: [facility] [phone] Performing Lab: [facility] [address] CREATININE 1.1 0.7-1.2 UREA NITROGEN 20 8-26 GLUCOSE 170 H 70-100 SODIUM 141 136-145 POTASSIUM 4.2 3.5-5.1 CHLORIDE 103 98-107 CO2 31 H 22-29 CALCIUM 9.4 8.4-10.2 MAGNESIUM 1.5 L 1.6-2.6 ANION GAP 7 5-15 CREAT EGFR(CKD-EPI ) 70 >60 Aug 28, 2022 10:51 AM [facility] FOLATE Specimen Type: SERUM No comment entered. Ordering Provider: VIPUL CRANE Report Released Date/Time: Aug 15, 2022 10:30 AM Reporting Lab: [facility] [address] Performing Lab: [facility] [address] FOLATE 16.2 >7.0 Aug 28, 2022 10:51 AM [facility] B 12 Specimen Type: SERUM No comment entered. Ordering Provider: VIPUL CRANE Report Released Date/Time: Aug 15, 2022 10:30 AM Reporting Lab: [facility] [address] Performing Lab: [facility] [address] B 12 934 H 213-816 Aug 28, 2022 10:51 AM [facility] TSH W/REFLEX TO FREE T4 Specimen Type: PLASMA No comment entered. Ordering Provider: VIPUL CRANE Report Released Date/Time: Aug 15, 2022 10:30 AM Reporting Lab: [facility] [address] Performing Lab: [facility] [address] TSH 2.66 0.35-4.94 Aug 28, 2022 10:51 AM [facility] VIT D 25-OH,TOTAL Specimen Type: SERUM No comment entered. Ordering Provider: VIPUL CRANE Report Released Date/Time: Aug 15, 2022 10:31 AM Reporting Lab: [facility] [address] Performing Lab: [facility] [address] VIT D 25-OH,TOTAL 58 H 12-50 Aug 28, 2022 10:51 AM [facility] CBC Specimen Type: BLOOD No comment entered. Ordering Provider: VIPUL CRANE Report Released Date/Time: Aug 15, 2022 09:14 AM Reporting Lab: [facility] [address] Performing Lab: [facility] [address] WBC 8.61 4.0-11.0 RBC 4.26 L 4.6-6.2 HGB 11.2 L 13.5-17.9 HCT 35.4 L 41-54 MCV 83.1 80-100 MCH 26.3 L 27-33 MCHC 31.6 L 32.0-37.5 PLT 345 150-400 MPV 9.4 7.4-10.4 RDW 15.0 H 11.5-14.5 Aug 28, 2022 10:51 AM [facility] IRON GROUP Specimen Type: SERUM No comment entered. Ordering Provider: VIPUL CRANE Report Released Date/Time: Aug 15, 2022 10:30 AM Reporting Lab: [facility] [address] Performing Lab: [facility] [address] IRON 29 L 65-175 TIBC,CALCULA ASCENCION 399 250-425 FERRITIN 19.7 L 21.8-274.7 IRON SATURATION 7 L 20-50 TRANSFERRIN 319 163-382 Aug 15, 2022 09:38 AM [facility] MICROALBUMIN/CREATININE RATIO URINE Specimen Type: URINE No comment entered. Ordering Provider: VIPUL CRANE Report Released Date/Time: Aug 15, 2022 09:10 AM Reporting Lab: [facility] [address] Performing Lab: [facility] [address] CREATININE,U R RANDOM 97.8 58.0-161.0 ALB/CREAT RATIO,UR 24.7 <29.9 MICROALBUMIN ,UR 24.2 <29.9 Vital Signs: All taken on the encounter date This section contains inpatient and outpatient Vital Signs collected on the date of the Encounter. Date/Time Temperature Pulse Blood Pressure Respiratory Rate SP02 Pain Height Weight Body Mass Index Source Aug 15, 2022 08:56 AM 66 /min 129/74 mm[Hg] 20 /min 97 % 8 68 in 224 lb 34 [facility] Immunizations: All administered on the encounter date This section contains immunizations associated to the Encounter. Immunization Series Date Issued Reaction Comments INFLUENZA VACCINE, QUADRIVALENT, ADJUVANTED Aug 15, 2022 Social History: Smoking Status (Most current) and Tobacco Use (All prior to encounter date) This section includes the most current, and the historical, smoking and tobacco- related health factors from the [facility] where the Encounter took place. Current Smoking Status This section includes the most current smoking, or tobacco-related health factor, from the [place] facility where the Encounter took place. Date/Time Current Smoking Status Comment Facil ity Aug 15, 2022 09:00 AM [place]-TOBACCO FORMER USER [facility] Tobacco Use History This section includes a history of the smoking, or tobacco-related health factors, that were collected on or before the date of the Encounter. The data comes from the [facility] where the Encounter took place. Date/Time Smoking Status/Tobacco Use Comment F acility Aug 15, 2022 09:00 AM VA-TOBACCO QUIT 15 YRS OR MORE [facility] Aug 21, 2021 01:00 PM VA-TOBACCO FORMER USER [facility] Aug 21, 2021 01:00 PM VA-TOBACCO QUIT 15 YRS OR MORE [facility] Jul 09, 2018 08:58 AM VA-TOBACCO FORMER USER [facility] Jul 09, 2018 08:58 AM IN-TOBACCO QUIT 15 YRS OR MORE [facility] Jul 18, 2017 09:58 AM FORMER TOBACCO USER 7Y OR GREATE R [facility] Aug 14, 2016 10:59 AM FORMER TOBACCO USER 7Y OR GREATE R [facility] Jun 29, 2015 02:03 PM FORMER TOBACCO USER 7Y OR GREATE R [facility] Jan 06, 2014 03:04 PM FORMER TOBACCO USER 7Y OR GREATE R [facility] Jan 04, 2012 08:36 AM FORMER TOBACCO USER 7Y OR GREATE R [facility] Radiology Reports: +/- 30 days of the [...] treatment facilities. Date/Time Radiology Report Provider Source Aug 28, 2022 12:35 PM HIP LEFT 2 VIEWS W /PELVIS: JUAN THOMPSON [id number] -[id number] M Exm Date: AUG 28, 2022@12:35 Req Phys: VIPUL CRANE Loc: [facility] APACT L RES 03 WH 4F (Req' Img Loc: MAIN X-RAY Service: Unknown (Case [id number] COMPLETE) HIP LEFT 2 VIEWS W/PELVIS (RAD Detailed) CPT:67249 Proc Modifiers : LEFT Reason for Study: Left hip pain Clinical History: [place] IS NOT under investigation for COVID-19 or is COVID-19 negative Hip Pain Responsible provider name and phone number to notify for critical findings if other than user placing the order and pager listed below: User placing orders pager: LAST CREATININE 1.1 (07/11/22) Report Status: Verified Date Reported: AUG 28, 2022 Date Verified: AUG 28, 2022 Alfalfa Dehydrator Operator E-Sig:/ES/LYNNE MARTÍNEZ DO Report: EXAMINATION: HIP LEFT 2 VIEWS W/PELVIS 08/28/2022 12:35 PM INDICATION: Left hip pain COMPARISON: 06/06/2022 Impression: No acute fracture or dislocation. Slightly progressed severe degenerative change in the right hip with joint space narrowing, subchondral sclerosis and osteophyte formation. Stable mild left hip joint degenerative change. No flattening of the femoral heads. No diastases of the SI joints. SI joint degenerative subchondral sclerosis is grossly stable. The pubic symphysis is intact. Degenerative change in the lower lumbar spine is incompletely evaluated. Stable enthesopathic changes at the iliac bones. There are pelvic phleboliths. Primary Interpreting Staff: LYNNE MARTÍNEZ DO, RADIOLOGIST (Alfalfa Dehydrator Operator) /DDS LYNNE MARTÍNEZ [facility] Encounter Notes: All associated encounter notes This section contains the clinical notes associated to the Encounter. Date/Time Encounter Note(s) Provider Source Aug 15, 2022 10:37 AM ADMINISTRATIVE NOTE: LOCAL TITLE: AFTER VISIT SUMMARY NOTE STANDARD TITLE: ADMINISTRATIVE NOTE DICT DATE: AUG 15, 2022@10:37:12 ENTRY DATE: AUG 15, 2022@10:37:12 DICTATED BY: VIPUL CRANE EXP COSIGNER: URGENCY: STATUS: COMPLETED The patient was provided with a copy of an after-visit summary at the conclusion of the visit. A copy of the after-visit summary provided to the patient is available in [employer]. SCANNED DOCUMENT SIGNATURE NOT REQUIRED Electronically Filed: 08/15/2022 by: [employer]ERRA [employer]IC[employer] ADVANCED MANAGER [employer]INT VIPUL CRANE [facility] Aug 15, 2022 10:02 AM INTERNAL MEDICINE NOTE: LOCAL TITLE: MEDICINE CLINIC NOTE STANDARD TITLE: INTERNAL MEDICINE NOTE DATE OF NOTE: AUG 15, 2022@10:02 ENTRY DATE: AUG 15, 2022@10:02:19 AUTHOR: PRANEETH CHAUDHARI EXP COSIGNER: URGENCY: STATUS: COMPLETED I have reviewed this patient's history, pertinent physical examination, laboratory, and (when obtained) radiologic or other diagnostic tests with the Internal Medicine Resident evaluating this patient. I agree with the treatment plan as outlined. This plan was reviewed with the resident on the date of this note. 76 yo M w/ hx f DMT2, HTN, osteoarthritis, AF (apixaban), GERD, who is here for f/u. right hip pain, intermittent. walks 9 blocks on a regular basis. uses diclofenac gel and lidocaine patches. pain has returned again. seen by Ortho but no tx necessary. uses walker. no falls. left hip pain, lateral. no gr troch tenderness. will get x-ray. quit smoking 25 yrs ago. has dysphagia. EGD - no esoph path but had gastropathy. PPI increased. will get INTERNAL SPECIALIST consult. MOVE referral. hx of Ina-en-Y gastric bypass. /pablo/ ROWDY Bland. DON CANALES MD Staff Physician Signed: 08/15/2022 10:16 ROWDY CHAUDHARI [facility] Aug 15, 2022 09:03 AM INTERNAL MEDICINE NOTE: LOCAL TITLE: MEDICINE CLINIC NOTE STANDARD TITLE: INTERNAL MEDICINE NOTE DATE OF NOTE: AUG 15, 2022@09:03 ENTRY DATE: AUG 15, 2022@09:03:32 AUTHOR: VIPUL CRANE EXP COSIGNER: URGENCY: STATUS: COMPLETED JUAN THOMPSON is a 76 year old MALE with the following chief complaint: Nurse's Note Reviewed. Follow up unclear HPI/ROS: Mr. Thompson is a 75 yo male with a PMHx of HTN, DM2, Morbid Obesity, MDD, STEPHANIE, Bipolar, GERD, A.Fib, bronchiectasis, Gastric Bypass 2002, mid cognitive disorder who doesn't know why he was scheduled for clinic. Unclear why he was scheduled so it was decided to prevent him having to travel back in September for annual to just proceed with it now. Patient major complaint today his his hip pain and dysphagia. Discussed further below. Patient otherwise doing ok. Did not have guardian with him in the room today but was waiting out in the lobby. Rest of ROS was unremarkable. Past medical history/Active Problems: Active problems - Computerized Problem List is the source for the followin. Essential hypertension (SNOMED CT 77586426) 2. Major depressive disorder (SNOMED CT 562406275) 3. Generalized anxiety disorder (SNOMED CT 25384783) 4. Primary Obesity 5. Bronchiectasis (SNOMED CT 53372015) 6. Gastroesophageal Reflux Disorder * 7. Bariatric Surgery Status 8. Cataracts (SNOMED CT 99604243) 9. Hypermetropia/Hyperopia 10. Astigmatism, Unspec 11. Presbyopia 12. Atrial fibrillation (SNOMED CT 66832551) 13. Varicose veins of lower extremity 14. Compulsive gambling 15. Bipolar disorder (SNOMED CT 73509357) 16. Mild cognitive disorder 17. Type 2 diabetes mellitus 18. Long-term current use of anticoagulant Allergies: SULFAMETHOXAZOLE (Feb 07, 2022) EMPAGLIFLOZIN (Jun 06, 2022) Active Outpatient Medications (excluding Supplies): Outpatient Medications Status 1) ACCU-CHEK GUIDE (GLUCOSE) TEST STRIP USE 1 STRIP ACTIVE EVERY DAY TO CHECK BLOOD SUGAR--USE WITHIN 3 MINUTES OF REMOVING FROM CONTAINER 2) ALBUTEROL 90MCG (CFC-F) 200D ORAL INHL INHALE 1-2 ACTIVE PUFFS BY INHALATION EVERY 4 HOURS NEEDED FOR IMMEDIATE RELIEF OF SHORTNESS OF BREATH *SHAKE WELL* 3) APIXABAN 5MG TAB TAKE ONE TABLET BY MOUTH EVERY 12 ACTIVE HOURS TO PREVENT AND/OR TREAT BLOOD CLOTS 4) ARIPIPRAZOLE 30MG TAB TAKE ONE-HALF TABLET BY MOUTH ACTIVE EVERY DAY 5) ATORVASTATIN CALCIUM 20MG TAB TAKE ONE-HALF TABLET BY ACTIVE MOUTH AT BEDTIME 6) BUPROPION HCL 150MG 24HR SA TAB TAKE ONE TABLET BY ACTIVE MOUTH EVERY MORNING 7) CALCIUM CARB 500MG (CA 200MG) CHEW TAB CHEW ONE ACTIVE TABLET BY MOUTH TWICE A DAY 8) CHOLECALCIF 25MCG (D3-1,000UNIT) TAB TAKE ONE TABLET ACTIVE BY MOUTH EVERY DAY 9) CYANOCOBALAMIN 1000MCG TAB TAKE ONE TABLET BY MOUTH ACTIVE EVERY DAY 10) DICLOFENAC NA 1% TOP GEL APPLY 4 GRAMS TOPICALLY FOUR ACTIVE TIMES A DAY NEEDED TO AFFECTED AREA FOR PAIN. *USE DOSE CARD IN BOX TO MEASURE DOSE. MAX 32 GRAMS PER DAY. 11) INSULIN,GLARGINE 100 UNT/ML 3ML SOLOSTAR INJECT 14 ACTIVE UNITS UNDER THE SKIN EVERY DAY 12) MAGNESIUM OXIDE 400MG TAB TAKE TWO TABLETS BY MOUTH ACTIVE EVERY DAY FOR SUPPLEMENTATION 13) METFORMIN HCL 500MG TAB TAKE ONE TABLET BY MOUTH ACTIVE EVERY DAY FOR DIABETES *NOTE:WHOLE TABLETS 14) METOPROLOL SUCCINATE 50MG SA TAB TAKE ONE TABLET BY ACTIVE MOUTH EVERY DAY FOR HEART AND BLOOD PRESSURE 15) MULTIVIT/OPHTH AREDS2/LUTE/ZEAX CAP/TAB TAKE 1 ACTIVE CAP/TAB BY MOUTH TWICE A DAY WITH MEALS 16) MULTIVITAMIN CAP/TAB TAKE 1 TABLET BY MOUTH EVERY DAY ACTIVE 17) OMEPRAZOLE 20MG EC CAP TAKE ONE CAPSULE BY MOUTH ACTIVE EVERY MORNING AND TAKE TWO CAPSULES EVERY EVENING ON AN EMPTY STOMACH, AT LEAST 30 MINUTES PRIOR TO A MEAL FOR REFRACTORY GERD 18) VENLAFAXINE HCL 150MG 24HR SA CAP TAKE ONE CAPSULE BY ACTIVE MOUTH EVERY DAY MEDICATION RECONCILIATION Outpatient At this visit I have reviewed the medication list, and discussed relevant medications with the patient/surrogate. An updated patient medication list was given to the participant(s). ( ) No Change (X) Change/New: I have noted this on the patient's copy of the medication list. Education on NEW Medication: I have reviewed the medication list for possible drug:drug interactions or contraindications prior to ordering NEW medications during this visit. (X)Patient instructed. I noted new medication on patient's copy of the medication list. Patient sent to Pharmacist for education on new medication. EXAM: VS: Temp: 98.1 F [36.7 C] (04/11/2022 11:16) BP: 129/74 (08/15/2022 08:56) Pulse:66 (08/15/2022 08:56) Resp: 20 (08/15/2022 08:56) Pain: 8 (08/15/2022 08:56) Weight: WEIGHTS IN LAST 6 MONTHS: 224 (AUG 15, 2022@08:56:36) 203 (APR 11, 2022@11:16:06) O2 sat: 97% (08/15/2022 08:56) General: NAD HEENT: NC/AT, EOMI, no scleral icterus Lungs: CTAB CV: Irregularly irregular Abdomen: soft, ND, NT. No guarding or rebound. Scar in the center of the abdomen Extremities: wwp, b/l peripehral edema MSK: Full ROM Lt and Rt Hip. Tenderness to palpation of lateral hip. Negative straight leg Neuro: A&Ox3. Moving all extremities. Sensation decreased Data/Labs: LAB RESULTS LAST 48 HRS - NONE FOUND Assessment and Plan: # Dysphagia Ongoing for year. Described it as feel food is stuck but normally sensation improve with water. Denies chronic cough or coughing up of food. No hx of PNA. Recent EGD done 04/2022 did not show evidence of esophagitis or malignancy. - INTERNAL SPECIALIST consulted w/ swallow study # Weight Gain # Obesity Patient states he gained about 16lbs over the last couple of months but states he hasn't been eating as much. Is interested in losing weight and would like to know more about the [facility] - Consult to M[facility]/SM[facility] Class[facility] # Chronic Rt Hip Pain # Subacute Lt Hip Pain Found to have severe arthritis in the right hip. Had previously seen Ortho and told them he did not have much pain with activity. Recommend conservative management. Feels like his pain has been getting worse but still not to the point of disabling. He also felt like his left hip was starting to hurt more but was not in pain in clinic - APAP PRN - Lidocaine QDay - Voltaren gel PRN - PT - Lt Hip Xray # A Fib (CHADVASC 5) # HTN BP today was 129/74. BP controlled. - cont metoprolol - cont apixaban # Bipolar II # MDD - recurrent # STEPHANIE Follows with Dr. Delvalle with . No SI/HI - cont psych meds per # DMII Last A1c at [place] was 8.2 06/2022. Diabetes case management following. Currently on metformin and Lantus - Diabetic Nephropathy: wnl - Diabetic Neuropathy/Foot Exam: decreasion sensation with intermittent tingling September 2021 - Diabetic Retinopathy: Needs to call eye clinic for appt - Cont to follow with case management (next appt 09/11/2022) # Mild to Moderate Neurocognitive Disorder # Chronic Small Vessel Ischemia - cont atorvastatin - On anticoagulation # Hx of Gastric Bypass Patient had Rou-en-Y done in early . Patient had been taking supplements. Unclear if he is still on it and if he has any deficiencies. - Recheck B12, folate, D, electrolytes # Bronchiectasis - albuterol PRN #RHM - C-scope: normal in 2017. No further scopes d/t aging out - AAA: 2016 normal - Eligible for flu shot and bivalent booster RTC in 1 year with labs Patient staffed with Dr. Chaudhari Education on Treatment Plan: Patient indicates readiness to learn, verbalizes understanding, agreement and satisfaction with the treatment plan. Denies further questions. Patient indicates readiness to learn and has been instructed on action, dose, frequency, and side effects of medications. Patient verbalizes understanding. The medication list above was reviewed with the patient at today's visit. I have indicated discrepancies under each medication that is not being taken as prescribed. I have updated the medicines under the med tab as appropriate. /pablo/ VIPUL CRANE MD RESIDENT Signed: 08/15/2022 13:09 VIPUL CRANE [facility] Aug 15, 2022 08:59 AM INTERNAL MEDICINE OUTPATIENT NOTE: LOCAL TITLE: MEDICINE CLINIC NURSING NOTE STANDARD TITLE: INTERNAL MEDICINE OUTPATIENT NOTE DATE OF NOTE: AUG 15, 2022@08:59 ENTRY DATE: AUG 15, 2022@08:59:12 AUTHOR: JYOTSNA MEIER EXP COSIGNER: URGENCY: STATUS: COMPLETED MEDICINE CLINIC NURSING NOTE Has ADDENDA TYPE OF VISIT: Appointment Check In Type of appointment: In-person appointment REASON FOR VISIT: Check up. ALLERGIES: SULFAMETHOXAZOLE (Feb 07, 2022) EMPAGLIFLOZIN (Jun 06, 2022) VITAL SIGNS: Blood Pressure: 129/74 (08/15/2022 08:56) Pulse: 66 (08/15/2022 08:56) Respiration: 20 (08/15/2022 08:56) Temperature: 98.1 F [36.7 C] (04/11/2022 11:16) Weight: 224 lb [101.60 kg] (08/15/2022 08:56) Height: 68 in [172.7 cm] (08/15/2022 08:56) BMI: 34.1 O2 Sat: 97% (08/15/2022 08:56) Pain: 8 (08/15/2022 08:56) PAIN SCREEN: Patient is having significant pain that they would like to talk to their provider about today. Acute pain is new pain, which as been present for less than 6 months Words used to describe pain: sharp Number that best describes pain intensity on average in the past week: 8 Pain located in the following location(s): other: RT Hip Pain has been happening for: 1-3 months Pain is worse when: walking Pain is better when: resting MEDICATION Over the Counter/Herbal Medications: The patient states that they take some outside medications and/or herbals. Suicide Screen: C-SSRS Screening [place] Suicide Severity Rating Scale (C-SSRS) screener 1. Over the past month, have you wished you were or wished you could go to sleep and not wake up? No 2. Over the past month, have you had any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
--- OUTSIDE RECORDS SUMMARY | 2023-08-13 12:25 | XMS_ITS | Encounter Summary ---
Author Name [facility] of [facility]a [facility] Organization [facility] Address [address] [place] [address] Support Name Relationship Address Phone SIRIA THOMPSON Next of Kin [address] [place], [place] [address] SIRIA THOMPSON Emergency Contact [address] [place] [id number] NATHALIE DING Emergency Contact Unknown Insurance Providers: [...] PART A Sep 26, 2012 PART A [id number] [facility] [phone] JUAN THOMPSON JR PATIENT MEDICARE (WNR) MEDICARE (M) PART B Sep 26, 2012 PART B [id number] [phone] JUAN THOMPSON JR PATIENT Selected Encounter This section includes the information on record at [place] for the Encounter. Date/Time Encounter Type Encounter Description Reason Pro vider Source Aug 17, 2022 01:58 PM Outpatient Encounter PRIMARY CARE/MEDICINE IHE Encounter Template Text not used by [place] Plan of Treatment: Future Appointments (+ 6 months) and Future Tests (+/- 45 days) The Plan of Treatment section includes future care activities for the patient from all [place] treatmentfacilities. This section includes future appointments and future orders which are active, pending or scheduled. Future Appointments This section includes appointments that were scheduled to occur 6 months from the date of the Encounter, up to a maximum of 20 appointments. The data comes from all [place] treatment [facility]. Appointment Date/Time Appointment Type Appointme nt Facility Name Aug 21, 2022 10:30 AM AM[place] [facility] Aug 28, 2022 11:40 AM [place] [facility] Sep 03, 2022 05:00 PM AMBULATORY - REHAB MEDIC[facility] Sep 10, 2022 08:00 AM [place]ONE [place] [facility] Sep 10, 2022 08:30 AM AMBULATORY - REHAB MEDICIN [facility] Sep 10, 2022 11:00 AM [place] [facility] Sep 11, 2022 10:30 AM [place]IC[place] [facility] Sep 11, 2022 11:45 AM [place] [facility] Sep 28, 2022 08:30 AM [place] [facility] Sep 28, 2022 09:00 AM [place] [facility] Sep 28, 2022 09:30 AM AMBULATORY - REHAB MEDICIN [facility] Oct 01, 2022 07:00 AM [place]ORY [place] [facility] Oct 01, 2022 07:15 AM [place] [facility] Nov 06, 2022 10:00 AM [place]ICINE [place] [facility] Nov 06, 2022 12:45 PM [place] [facility] Nov 19, 2022 11:00 AM [place] [facility] November 27, 2022 01:15 PM [place]ORY [place]ONE [place] [facility] Dec 28, 2022 10:30 AM [place]IC[place] [facility] Dec 31, 2022 09:00 AM [place] [facility] Jan 16, 2023 10:00 AM [facility] Lab Results: +/- 30 days of the encounter This section includes the Chemistry and Hematology Lab Results on record with [place] for the patient. Radiology Reports and Pathology Reports are provided separately, in subsequent sections. Lab Results This section contains the Chemistry/Hematology Results that were resulted 30 days before or 30 daysafter the date of the Encounter. Date/Time Source Result Type Result - Unit Interpretation Reference Range Comment Sep 11, 2022 12:52 PM [facility] VITAMIN A Specimen Type: SERUM Comment: Vitamin supplementation within 24 hours prior to blood draw may affect the accuracy of the results. This test was developed and its analytical performance characteristics have been determined by [facility] [place], [place]. It has not been cleared or approved by the U.S. Food and Drug Administration. This assay has been validated pursuant to the CLIA regulations and is used for clinical purposes. Test Performed by [facility], [facility], [address] [place] [address] Devante Meyer M.D., Ph.D., Director of Laboratories , CLIA [id number] Ordering Provider: ABBY COHEN Report Released Date/Time: Sep 11, 2022 11:28 AM Reporting Lab: [facility] [id number] Performing Lab: [address] VITAMIN A 58 [phone] Sep 11, 2022 12:52 PM [facility] PTH-N-TACT Specimen Type: PLASMA No comment entered. Ordering Provider: ABBY COHEN Report Released Date/Time: Sep 11, 2022 11:28 AM Reporting Lab: [facility] [phone] Performing Lab: [facility] [phone] PTH-N-TACT 62.1 8.7-77.1 Aug 28, 2022 10:51 AM [facility] LIPID PANEL,NON-FASTING Specimen Type: PLASMA No comment entered. Ordering Provider: VIPUL MONDRAGON Report Released Date/Time: Aug 15, 2022 09:14 AM Reporting Lab: [facility] [id number] Performing Lab: [facility] [phone] CHOLESTEROL 115 <199 .HDL 43 >40 LDL CALCULATION 58 <99 VLDL CALCULATION 14 <29 NON HDL CHOLESTEROL 72 <129 TRIG(NON FASTING) 70 <149 Aug 28, 2022 10:51 AM [facility] HEMOGLOBIN A1C Specimen Type: BLOOD Comment: Values obtained from A1C measurements can vary. For typical A1C assays, a reported value of 7.0 could actually be between 6.7 and 7.3 if measured by a reference method. A reported value of 9.0 could actually be between 8.7 and 9.3. Ref: [email or web address].[email or web address] [email or web address] Ordering Provider: VIPUL MONDRAGON Report Released Date/Time: Aug 15, 2022 09:14 AM Reporting Lab: [facility] [phone] Performing Lab: [facility] [phone] HEMOGLOBIN A1C 8.4 H 4.0-6.0 Aug 28, 2022 10:51 AM [facility] BASIC METABOLIC PANEL+MG Specimen Type: PLASMA No comment entered. Ordering Provider: INGRID BURLESON Report Released Date/Time: Jul 11, 2022 01:04 PM Reporting Lab: [facility] [phone] Performing Lab: [facility] [phone] CREATININE 1.1 0.7-1.2 UREA NITROGEN 20 8-26 GLUCOSE 170 H 70-100 SODIUM 141 136-145 POTASSIUM 4.2 3.5-5.1 CHLORIDE 103 98-107 CO2 31 H 22-29 CALCIUM 9.4 8.4-10.2 MAGNESIUM 1.5 L 1.6-2.6 ANION GAP 7 5-15 CREAT EGFR(CKD-EPI ) 70 >60 Aug 28, 2022 10:51 AM [facility] B 12 Specimen Type: SERUM No comment entered. Ordering Provider: VIPUL MONDRAGON Report Released Date/Time: Aug 15, 2022 10:30 AM Reporting Lab: [facility] [phone] Performing Lab: [facility] [address] B 12 934 H 213-816 Aug 28, 2022 10:51 AM [facility] TSH W/REFLEX TO FREE T4 Specimen Type: PLASMA No comment entered. Ordering Provider: VIPUL MONDRAGON Report Released Date/Time: Aug 15, 2022 10:30 AM Reporting Lab: [facility] [phone] Performing Lab: [facility] [address] TSH 2.66 0.35-4.94 Aug 28, 2022 10:51 AM [facility] FOLATE Specimen Type: SERUM No comment entered. Ordering Provider: VIPUL MONDRAGON Report Released Date/Time: Aug 15, 2022 10:30 AM Reporting Lab: [facility] [phone] Performing Lab: [facility] [phone] FOLATE 16.2 >7.0 Aug 28, 2022 10:51 AM [facility] CBC Specimen Type: BLOOD No comment entered. Ordering Provider: VIPUL MONDRAGON Report Released Date/Time: Aug 15, 2022 09:14 AM Reporting Lab: [facility] [phone] Performing Lab: [facility] [phone] WBC 8.61 4.0-11.0 RBC 4.26 L 4.6-6.2 HGB 11.2 L 13.5-17.9 HCT 35.4 L 41-54 MCV 83.1 80-100 MCH 26.3 L 27-33 MCHC 31.6 L 32.0-37.5 PLT 345 150-400 MPV 9.4 7.4-10.4 RDW 15.0 H 11.5-14.5 Aug 28, 2022 10:51 AM [facility] VIT D 25-OH,TOTAL Specimen Type: SERUM No comment entered. Ordering Provider: VIPUL MONDRAGON Report Released Date/Time: Aug 15, 2022 10:31 AM Reporting Lab: [facility] [phone] Performing Lab: [facility] [phone] VIT D 25-OH,TOTAL 58 H 12-50 Aug 28, 2022 10:51 AM [facility] IRON GROUP Specimen Type: SERUM No comment entered. Ordering Provider: VIPUL MONDRAGON Report Released Date/Time: Aug 15, 2022 10:30 AM Reporting Lab: [facility] [phone] Performing Lab: [facility] [phone] IRON 29 L 65-175 TIBC,CALCULA ASCENCION 399 250-425 FERRITIN 19.7 L 21.8-274.7 IRON SATURATION 7 L 20-50 TRANSFERRIN 319 163-382 Aug 15, 2022 09:38 AM [facility] MICROALBUMIN/CREATININE RATIO URINE Specimen Type: URINE No comment entered. Ordering Provider: VIPUL MONDRAGON Report Released Date/Time: Aug 15, 2022 09:10 AM Reporting Lab: [facility] [address] Performing Lab: [facility] [address] CREATININE,U R RANDOM 97.8 58.0-161.0 ALB/CREAT RATIO,UR 24.7 <29.9 MICROALBUMIN ,UR 24.2 <29.9 Social History: Smoking Status (Most current) and Tobacco Use (All prior to encounter date) This section includes the most current, and the historical, smoking and tobacco- related health factors from the [facility] where the Encounter took place. Current Smoking Status This section includes the most current smoking, or tobacco-related health factor, from the [place] facility where the Encounter took place. Date/Time Current Smoking Status Comment Facil ity Aug 15, 2022 09:00 AM VA-TOBACCO FORMER USER [facility] Tobacco Use History This section includes a history of the smoking, or tobacco-related health factors, that were collected on or before the date of the Encounter. The data comes from the [place] facility where the Encounter took place. Date/Time Smoking Status/Tobacco Use Comment F acility Aug 15, 2022 09:00 AM VA-TOBACCO QUIT 15 YRS OR MORE [facility] Aug 21, 2021 01:00 PM VA-TOBACCO FORMER USER [facility] Aug 21, 2021 01:00 PM VA-TOBACCO QUIT 15 YRS OR MORE [facility] Jul 09, 2018 08:58 AM VA-TOBACCO FORMER USER [facility] Jul 09, 2018 08:58 AM VA-TOBACCO QUIT 15 YRS OR MORE [facility] Jul 18, 2017 09:58 AM FORMER TOBACCO USER 7Y OR GREATE R [facility] Aug 14, 2016 10:59 AM FORMER TOBACCO USER 7Y OR GREATE R [facility] Jun 29, 2015 02:03 PM FORMER TOBACCO USER 7Y OR GREATE R [facility] Jan 06, 2014 03:04 PM FORMER TOBACCO USER 7Y OR GREATE R [facility] Jan 04, 2012 08:36 AM FORMER TOBACCO USER 7Y OR GREATE R [facility] Radiology Reports: +/- 30 [...] the Encounter. The data comes from all [place] treatment facilities. Date/Time Radiology Report Provider Source Aug 28, 2022 12:35 PM HIP LEFT 2 VIEWS W /PELVIS: JUAN THOMPSON [id number] -[id number] M Exm Date: AUG 28, 2022@12:35 Req Phys: MONDRAGONVIPUL MAYO Pat Loc: [facility] APACT L RES 03 WH 4F (Req' Img Loc: MAIN X-RAY Service: Unknown (Case [id number] COMPLETE) HIP LEFT 2 VIEWS W/PELVIS (RAD Detailed) CPT:82775 Proc Modifiers : LEFT Reason for Study: Left hip pain Clinical History: IS NOT under investigation for COVID-19 or is COVID-19 negative Hip Pain Responsible provider name and phone number to notify for critical findings if other than user placing the order and pager listed below: User placing orders pager: LAST CREATININE 1.1 (07/11/22) Report Status: Verified Date Reported: AUG 28, 2022 Date Verified: AUG 28, 2022 Automobile Drivers E-Sig:/ES/LYNNE MARTÍNEZ DO Report: EXAMINATION: HIP LEFT [...] Primary Interpreting Staff: LYNNE MARTÍNEZ DO, RADIOLOGIST (Automobile Drivers) /DDS LYNNE MARTÍNEZ [facility] Encounter Notes: All associated encounter notes This section contains the clinical notes associated to the Encounter. Date/Time Encounter Note(s) Provider Source Aug 17, 2022 01:58 PM REPORT OF CONTACT: LOCAL TITLE: APPOINTMENT SCHEDULING NOTE STANDARD TITLE: REPORT OF CONTACT DATE OF NOTE: AUG 17, 2022@13:58 ENTRY DATE: AUG 17, 2022@13:58:52 AUTHOR: DIEGO ROMERO EXP COSIGNER: URGENCY: STATUS: COMPLETED Attempt to schedule return to clinic 1st Contact: Called at: [phone] Jul Unable to leave message on voice mail. 2nd Contact: Sent letter by regular [place] mail to address on file. JUAN THOMPSON [address] [place] [address] If [place] calls back, schedule appointment for: 1) [facility] Xray HIP LEFT 2 VIEWS W/PELVIS LEFT and 2) [facility] Blood Lab [id number] denise Mondragon (schedule on or around 09/11/22) Is the RTC marked as no later than? No /es/ DIEGO ROMERO [facility] Electrical Prospecting Observer Signed: 08/17/2022 14:00 DIEGO ROMERO [facility]
--- OUTSIDE RECORDS SUMMARY | 2023-08-13 12:25 | XMS_ITS | Encounter Summary ---
Author Name [employer] Organization [employer] [facility] [employer] Address [address] [place] [address] Support Name Relationship Address Phone SIRIA THOMPSON Next of Kin [address] [place], [place] [id number] SIRIA THOMPSON Emergency Contact [address] [place] [id number] NATHALIE DING Emergency Contact Unknown [phone] Insurance Providers: All historical and current Section [...] PART A Sep 26, 2012 PART A [id number] [facility] [phone] JUAN THOMPSON JR PATIENT MEDICARE (WNR) MEDICARE (M) PART B Sep 26, 2012 PART B [id number] [facility] [phone] JUAN THOMPSON JR PATIENT Selected Encounter This section includes the information on record at [place] for the Encounter. Date/Time Encounter Type Encounter Description Reason Pro vider Source Aug 18, 2022 04:33 PM Outpatient Encounter WEIGHT MGMT & MOVE! PROG - IND IHE Encounter Template Text not used by [place] Plan of Treatment: Future Appointments (+ 6 months) and Future Tests (+/- 45 days) The Plan of Treatment section includes future care activities for the patient from all [place] treatmentfacilities. This section includes future appointments and future orders which are active, pending or scheduled. Future Appointments This section includes appointments that were scheduled to occur 6 months from the date of the Encounter, up to a maximum of 20 appointments. The data comes from all [place] treatment [facility]. Appointment Date/Time Appointment Type Appointme nt Facility Name Aug 21, 2022 10:30 AM AM[place] [facility] Aug 28, 2022 11:40 AM [place] [facility] Sep 03, 2022 05:00 PM AMBULATORY - REHAB MEDICIN [place] [facility] Sep 10, 2022 08:00 AM [place] [facility] Sep 10, 2022 08:30 AM AMBULATORY - REHAB MEDICIN E [facility] Sep 10, 2022 11:00 AM [place] [facility] Sep 11, 2022 10:30 AM [place] [facility] Sep 11, 2022 11:45 AM [place] [facility] Sep 28, 2022 08:30 AM [place] [facility] Sep 28, 2022 09:00 AM [place] [facility] Sep 28, 2022 09:30 AM AMBULATORY - REHAB MEDICIN E [facility] Oct 01, 2022 07:00 AM [place] [facility] Oct 01, 2022 07:15 AM [place] [facility] Nov 06, 2022 10:00 AM [place] [facility] Nov 06, 2022 12:45 PM [place] [facility] Nov 19, 2022 11:00 AM [place] [facility] November 27, 2022 01:15 PM [place] [facility] Dec 28, 2022 10:30 AM [place] [facility] Dec 31, 2022 09:00 AM [place] [facility] Jan 16, 2023 10:00 AM [place] [facility] Lab Results: +/- 30 days of the [...] Range Comment Sep 11, 2022 12:52 PM [facility] VITAMIN A Specimen Type: SERUM Comment: Vitamin supplementation within 24 hours prior to blood draw may affect the accuracy of the results. This test was developed and its analytical performance characteristics have been determined by [employer] [place], [place]. It has not been cleared or approved by the U.S. Food and Drug Administration. This assay has been validated pursuant to the CLIA regulations and is used for clinical purposes. Test Performed by [facility] [employer] [facility], [address] [place] [address] Devante Meyer M.D., Ph.D., Director of Laboratories , [place] [id number] Ordering Provider: ABBY COHEN Report Released Date/Time: Sep 11, 2022 11:28 AM Reporting Lab: [facility] [id number] Performing Lab: [address] VITAMIN A 58 38-98 Sep 11, 2022 12:52 PM [facility] PTH-N-TACT Specimen Type: PLASMA No comment entered. Ordering Provider: ABBY COHEN Report Released Date/Time: Sep 11, 2022 11:28 AM Reporting Lab: [facility] [address] Performing Lab: [facility] [address] PTH-N-TACT 62.1 8.7-77.1 Aug 28, 2022 10:51 AM [facility] HEMOGLOBIN A1C Specimen Type: [...] Aug 15, 2022 09:14 AM Reporting Lab: [facility] [address] Performing Lab: [facility] [address] HEMOGLOBIN A1C 8.4 H 4.0-6.0 Aug 28, 2022 10:51 AM [facility] B 12 Specimen Type: SERUM No comment entered. Ordering Provider: VIPUL CRANE Report Released Date/Time: Aug 15, 2022 10:30 AM Reporting Lab: [facility] [address] Performing Lab: [facility] [address] B 12 934 H 213-816 Aug 28, 2022 10:51 AM [facility] BASIC METABOLIC PANEL+MG Specimen Type: PLASMA No comment entered. Ordering Provider: INGRID BURLESON Report Released Date/Time: Jul 11, 2022 01:04 PM Reporting Lab: [facility] [address] Performing Lab: [facility] [address] CREATININE 1.1 0.7-1.2 UREA NITROGEN 20 8-26 GLUCOSE 170 H 70-100 SODIUM 141 136-145 POTASSIUM 4.2 3.5-5.1 CHLORIDE 103 98-107 CO2 31 H 22-29 CALCIUM 9.4 8.4-10.2 MAGNESIUM 1.5 L 1.6-2.6 ANION GAP 7 5-15 CREAT EGFR(CKD-EPI ) 70 >60 Aug 28, 2022 10:51 AM [facility] FOLATE Specimen Type: SERUM No comment entered. Ordering Provider: VIPUL CRANE Report Released Date/Time: Aug 15, 2022 10:30 AM Reporting Lab: [facility] [address] Performing Lab: [facility] [address] FOLATE 16.2 >7.0 Aug 28, 2022 10:51 AM [facility] LIPID PANEL,NON-FASTING Specimen Type: PLASMA No comment entered. Ordering Provider: VIPUL CRNAE Report Released Date/Time: Aug 15, 2022 09:14 AM Reporting Lab: [facility] [address] Performing Lab: [facility] [address] CHOLESTEROL 115 <199 .HDL 43 >40 LDL CALCULATION 58 <99 VLDL CALCULATION 14 <29 NON HDL CHOLESTEROL 72 <129 TRIG(NON FASTING) 70 <149 Aug 28, 2022 10:51 AM [facility] CBC Specimen Type: BLOOD No comment entered. Ordering Provider: VIPUL CRANE Report Released Date/Time: Aug 15, 2022 09:14 AM Reporting Lab: [facility] [address] Performing Lab: [facility] [address] WBC 8.61 4.0-11.0 RBC 4.26 L 4.6-6.2 HGB 11.2 L 13.5-17.9 HCT 35.4 L 41-54 MCV 83.1 80-100 MCH 26.3 L 27-33 MCHC 31.6 L 32.0-37.5 PLT 345 150-400 MPV 9.4 7.4-10.4 RDW 15.0 H 11.5-14.5 Aug 28, 2022 10:51 AM [facility] TSH W/REFLEX TO FREE T4 Specimen Type: PLASMA No comment entered. Ordering Provider: VIPUL CRANE Report Released Date/Time: Aug 15, 2022 10:30 AM Reporting Lab: [facility] [address] Performing Lab: [facility] [address] TSH 2.66 0.35-4.94 Aug 28, 2022 10:51 AM [facility] IRON GROUP Specimen Type: SERUM No comment entered. Ordering Provider: VIPUL CRANE Report Released Date/Time: Aug 15, 2022 10:30 AM Reporting Lab: [facility] [address] Performing Lab: [facility] [address] IRON 29 L 65-175 TIBC,CALCULA ASCENCION 399 250-425 FERRITIN 19.7 L 21.8-274.7 IRON SATURATION 7 L 20-50 TRANSFERRIN 319 163-382 Aug 28, 2022 10:51 AM [facility] VIT D 25-OH,TOTAL Specimen Type: SERUM No comment entered. Ordering Provider: VIPUL CRANE Report Released Date/Time: Aug 15, 2022 10:31 AM Reporting Lab: [facility] [address] Performing Lab: [facility] [address] VIT D 25-OH,TOTAL 58 H 12-50 Aug 15, 2022 09:38 AM [facility] MICROALBUMIN/CREATININE RATIO URINE Specimen Type: URINE No comment entered. Ordering Provider: VIPUL CRANE Report Released Date/Time: Aug 15, 2022 09:10 AM Reporting Lab: [facility] [address] Performing Lab: [facility] [address] CREATININE,U R RANDOM 97.8 58.0-161.0 ALB/CREAT RATIO,UR 24.7 <29.9 MICROALBUMIN ,UR 24.2 <29.9 Social History: Smoking Status (Most current) and Tobacco Use (All prior to encounter date) This section includes the most current, and the historical, smoking and tobacco- related health factors from the [facility] where the Encounter took place. Current Smoking Status This section includes the most current smoking, or tobacco-related health factor, from the [place] facility where the Encounter took place. Date/Time Current Smoking Status Comment Facil ity Aug 15, 2022 09:00 AM VA-TOBACCO QUIT 15 YRS OR MORE [facility] Tobacco Use History This [...] OR MORE [facility] Aug 21, 2021 01:00 PM VA-TOBACCO FORMER USER [facility] Aug 21, 2021 01:00 PM VA-TOBACCO QUIT 15 YRS OR MORE [facility] Jul 09, 2018 08:58 AM VA-TOBACCO FORMER USER [facility] Jul 09, 2018 08:58 AM VA-TOBACCO QUIT 15 YRS OR MORE [facility] Jul 18, 2017 09:58 AM FORMER TOBACCO USER 7Y OR GREATE R [facility] Aug 14, 2016 10:59 AM FORMER TOBACCO USER 7Y OR GREATE R [facility] Jun 29, 2015 02:03 PM FORMER TOBACCO USER 7Y OR GREATE R [facility] Jan 06, 2014 03:04 PM FORMER TOBACCO USER 7Y OR GREATE R [facility] Jan 04, 2012 08:36 AM FORMER TOBACCO USER 7Y OR GREATE R [facility] Radiology Reports: +/- 30 [...] LEFT 2 VIEWS W /PELVIS: JUAN THOMPSON [id number] -[id number] M Exm Date: AUG 28, 2022@12:35 Req Phys: VIPUL CRANE Pat Loc: [facility] APACT L RES 03 WH 4F (Req' Img Loc: MAIN X-RAY Service: Unknown (Case [id number] COMPLETE) HIP LEFT 2 VIEWS W/PELVIS (RAD Detailed) CPT:62651 Proc Modifiers : LEFT Reason for Study: Left hip pain Clinical History: [place] IS NOT under investigation for COVID-19 or is COVID-19 negative Hip Pain Responsible provider name and phone number to notify for critical findings if other than user placing the order and pager listed below: User placing orders pager: LAST CREATININE 1.1 (07/11/22) Report Status: Verified Date Reported: AUG 28, 2022 Date Verified: AUG 28, 2022 Maintenance Worker Municipal E-Sig:/ES/LYNNE MARTÍNEZ DO Report: EXAMINATION: HIP LEFT [...] Primary Interpreting Staff: LYNNE MARTÍNEZ DO, RADIOLOGIST (Maintenance Worker Municipal) /DDS LYNNE MARTÍNEZ [facility] Encounter Notes: All associated encounter notes This section contains the clinical notes associated to the Encounter. Date/Time Encounter Note(s) Provider Source Aug 18, 2022 04:33 PM REPORT OF CONTACT: LOCAL TITLE: APPOINTMENT SCHEDULING NOTE STANDARD TITLE: REPORT OF CONTACT DATE OF NOTE: AUG 18, 2022@16:33 ENTRY DATE: AUG 18, 2022@16:33:35 AUTHOR: TANK KUMAR COSIGNER: URGENCY: STATUS: COMPLETED SUBJECT: MOVE DIET APPOINTMENT SCHEDULING NOTE Has ADDENDA Attempt to schedule return to clinic 1st Contact: Called at: [phone] Jul Unable to leave message on voice mail. MAILBOX FULL. 2nd Contact: Sent letter by regular [place] mail to address on file. (Sent via [employer] message.) JUAN THOMPSON [address] [address] If [place] calls back, schedule appointment for: Activity: 08/15/2022 13:03 New Order entered by VIPUL CRANE (RESIDENT) Order Text: Return to [facility] MOVE DIET 3D on or around ( Aug 28, 2022 )for a total of 1 appointment(s) Prerequisites: Labs (NON-FASTING), [place] prefers recall reminder, will not schedule RTC today Remote hx of Ina en Y but recently start gaining weight Is the RTC marked as no later than? No /pablo/ MARIUSZ KUMAR MOVE! Plug Overwrap Machine Tender Signed: 08/18/2022 16:34 09/10/2022 ADDENDUM STATUS: COMPLETED Patient did not respond to scheduling efforts. No further action will be taken. Corresponding RTC has been discontinued. /pablo/ MARIUSZ KUMAR MOVE! Plug Overwrap Machine Tender Signed: 09/10/2022 16:48 TAYLOR KUMAR [facility]
--- OUTSIDE RECORDS SUMMARY | 2023-08-13 12:25 | XMS_ITS | Encounter Summary ---
Author Name [facility] Organization [facility] Address [address] [place] [address] Support Name Relationship Address Phone SIRIA THOMPSON Next of Kin [address] [place], [place] [id number] SIRIA THOMPSON Emergency Contact [address] [place] [id number] NATHALIE DING Emergency Contact Unknown [phone] Insurance Providers: All historical and current Section [...] PART A Sep 26, 2012 PART A [id number] [facility] [phone] JUAN THOMPSON JR PATIENT MEDICARE (WNR) MEDICARE (M) PART B Sep 26, 2012 PART B [id number] [phone] JUAN THOMPSON JR PATIENT Selected Encounter This section includes the information on record at [facility] for the Encounter. Date/Time Encounter Type Encounter Description Reason Pro vider Source Aug 21, 2022 10:30 AM OFFICE O/P EST MOD 30-39 MIN PSYCHOGERIATRIC - INDIVIDUAL ICD-10-CM F31.81 Bipolar II disorder ANA PURI Encounter Template Text not used by [facility] Assessments - Encounter Diagnoses This section includes the primary and secondary diagnoses documented for the Encounter. Date/Time Primary/Secondary Diagnosis Diagnosis Name Provider Source Aug 21, 2022 12:12 PM PRIMARY Bipolar II disorder USHA PURI [facility] Aug 21, 2022 12:12 PM SECONDARY Mild cognitive impairment of uncertain or unknown etiology USHA PURI [facility] Plan of Treatment: Future Appointments (+ 6 months) and Future Tests (+/- 45 days) The Plan of Treatment section includes future care activities for the patient [facility] This section includes future appointments and future orders which are active, pending or scheduled. Future Appointments This section includes appointments that were scheduled to occur 6 months from the date of the Encounter, up to a maximum of 20 appointments. The data comes from all [facility]. Appointment Date/Time Appointment Type Appointme nt Facility Name Aug 28, 2022 11:40 AM AMBULATORY - [place] [facility] Sep 03, 2022 05:00 PM AMBULATORY - REHAB MEDICIN E [facility] Sep 10, 2022 08:00 AM AMBUL[place]ORY - NONE [place] [facility] Sep 10, 2022 08:30 AM AMBULATORY - REHAB MEDICIN E [facility] Sep 10, 2022 11:00 AM AM[place]ULATORY - NONE [place] [facility] Sep 11, 2022 10:30 AM AMBULATORY [place]ICINE [place] [facility] Sep 11, 2022 11:45 AM AMBULATORY - NONE [place] [facility] Sep 28, 2022 08:30 AM AM[place]UL[place]ORY - [place]ONE [place] [facility] Sep 28, 2022 09:00 AM AMBULATORY - [place]ONE [place] [facility] Sep 28, 2022 09:30 AM AMBULATORY - REHAB MEDICIN E [facility] Oct 01, 2022 07:00 AM AM[place]UL[place]ORY - NONE [place] [facility] Oct 01, 2022 07:15 AM AMBULATORY - NONE [place] [facility] Nov 06, 2022 10:00 AM AMBULATORY - [place]ICINE [place] [facility] Nov 06, 2022 12:45 PM AMBUL[place]ORY - NONE [place] [facility] Nov 19, 2022 11:00 AM AMBUL[place]ORY [place] [facility] November 27, 2022 01:15 PM AMBULATORY - NONE [place] [facility] Dec 28, 2022 10:30 AM AMBUL[place]ORY - [place]ICINE [place] [facility] Dec 31, 2022 09:00 AM [place] [facility] Jan 16, 2023 10:00 AM [place] [facility] Jan 17, 2023 10:00 AM AMBULATORY - PSYCHIATRY [facility] Lab Results: +/- 30 days of the encounter This section includes the Chemistry and Hematology Lab Results on record with [facility] for the patient. Radiology Reports and Pathology Reports are provided separately, in subsequent sections. Lab Results This section contains the Chemistry/Hematology Results that were resulted 30 days before or 30 daysafter the date of the Encounter. Date/Time Source Result Type Result - Unit Interpretation Reference Range Comment Sep 11, 2022 12:52 PM [facility] VITAMIN A Specimen Type: SERUM Comment: Vitamin supplementation within 24 hours prior to blood draw may affect the accuracy of the results. This test was developed and its analytical performance characteristics have been determined by [facility] [place], [place]. It has not been cleared or approved by the U.S. Food and Drug Administration. This assay has been validated pursuant to the CLIA regulations and is used for clinical purposes. Test Performed by [facility], [facility], [address] [place] [address] Devante Meyer M.D., Ph.D., Director of Laboratories , CLIA [id number] Ordering Provider: ABBY COHEN Report Released Date/Time: Sep 11, 2022 11:28 AM Reporting Lab: [facility] [id number] Performing Lab: [address] VITAMIN A [phone] Sep 11, 2022 12:52 PM [facility] PTH-N-TACT Specimen Type: PLASMA No comment entered. Ordering Provider: ABBY COHEN Report Released Date/Time: Sep 11, 2022 11:28 AM Reporting Lab: [facility] [id number] Performing Lab: [facility] [id number] PTH-N-TACT 62.1 8.7-77.1 Aug 28, 2022 10:51 AM [facility] LIPID PANEL,NON-FASTING Specimen Type: PLASMA No comment entered. Ordering Provider: VIPUL CRANE Report Released Date/Time: Aug 15, 2022 09:14 AM Reporting Lab: [facility] [id number] Performing Lab: [facility] [id number] CHOLESTEROL 115 <199 .HDL 43 >40 LDL CALCULATION 58 <99 VLDL CALCULATION 14 <29 NON HDL CHOLESTEROL 72 <129 TRIG(NON FASTING) 70 <149 Aug 28, 2022 10:51 AM [facility] BASIC METABOLIC PANEL+MG Specimen Type: PLASMA No comment entered. Ordering Provider: INGRID BURLESON Report Released Date/Time: Jul 11, 2022 01:04 PM Reporting Lab: [facility] [id number] Performing Lab: [facility] [id number] CREATININE 1.1 0.7-1.2 UREA NITROGEN 20 8-26 GLUCOSE 170 H 70-100 SODIUM 141 136-145 POTASSIUM 4.2 3.5-5.1 CHLORIDE 103 98-107 CO2 31 H 22-29 CALCIUM 9.4 8.4-10.2 MAGNESIUM 1.5 L 1.6-2.6 ANION GAP 7 5-15 CREAT EGFR(CKD-EPI ) 70 >60 Aug 28, 2022 10:51 AM [facility] HEMOGLOBIN A1C Specimen Type: BLOOD Comment: [...] Aug 15, 2022 09:14 AM Reporting Lab: [facility] [phone] Performing Lab: [facility] [address] HEMOGLOBIN A1C 8.4 H 4.0-6.0 Aug 28, 2022 10:51 AM [facility] FOLATE Specimen Type: SERUM No comment entered. Ordering Provider: VIPUL CRANE Report Released Date/Time: Aug 15, 2022 10:30 AM Reporting Lab: [facility] [phone] Performing Lab: [facility] [phone] FOLATE 16.2 >7.0 Aug 28, 2022 10:51 AM [facility] TSH W/REFLEX TO FREE T4 Specimen Type: PLASMA No comment entered. Ordering Provider: VIPUL CRANE Report Released Date/Time: Aug 15, 2022 10:30 AM Reporting Lab: [facility] [phone] Performing Lab: [facility] [address] TSH 2.66 0.35-4.94 Aug 28, 2022 10:51 AM [facility] B 12 Specimen Type: SERUM No comment entered. Ordering Provider: VIPUL CRANE Report Released Date/Time: Aug 15, 2022 10:30 AM Reporting Lab: [facility] [id number] Performing Lab: [facility] [address] B 12 934 H 213-816 Aug 28, 2022 10:51 AM [facility] CBC Specimen Type: BLOOD No comment entered. Ordering Provider: VIPUL CRANE Report Released Date/Time: Aug 15, 2022 09:14 AM Reporting Lab: [facility] [phone] Performing Lab: [facility] [id number] WBC 8.61 4.0-11.0 RBC 4.26 L 4.6-6.2 HGB 11.2 L 13.5-17.9 HCT 35.4 L 41-54 MCV 83.1 80-100 MCH 26.3 L 27-33 MCHC 31.6 L 32.0-37.5 PLT 345 150-400 MPV 9.4 7.4-10.4 RDW 15.0 H 11.5-14.5 Aug 28, 2022 10:51 AM [facility] VIT D 25-OH,TOTAL Specimen Type: SERUM No comment entered. Ordering Provider: VIPUL CRANE Report Released Date/Time: Aug 15, 2022 10:31 AM Reporting Lab: [facility] [phone] Performing Lab: [facility] [phone] VIT D 25-OH,TOTAL 58 H 12-50 Aug 28, 2022 10:51 AM [facility] IRON GROUP Specimen Type: SERUM No comment entered. Ordering Provider: VIPUL CRANE Report Released Date/Time: Aug 15, 2022 10:30 AM Reporting Lab: [facility] [id number] Performing Lab: [facility] [phone] IRON 29 L 65-175 TIBC,CALCULA ASCENCION 399 250-425 FERRITIN 19.7 L 21.8-274.7 IRON SATURATION 7 L 20-50 TRANSFERRIN 319 163-382 Aug 15, 2022 09:38 AM [facility] MICROALBUMIN/CREATININE RATIO URINE Specimen Type: URINE No comment entered. Ordering Provider: VIPUL CRANE Report Released Date/Time: Aug 15, 2022 09:10 AM Reporting Lab: [facility] [phone] Performing Lab: [facility] [phone] CREATININE,U R RANDOM 97.8 58.0-161.0 ALB/CREAT RATIO,UR 24.7 <29.9 MICROALBUMIN ,UR 24.2 <29.9 Social History: Smoking Status (Most current) and Tobacco Use (All prior to encounter date) This section includes the most current, and the historical, smoking and tobacco- related health factors from the [facility] facility where the Encounter took place. Current Smoking Status This section includes the most current smoking, or tobacco-related health factor, from the [facility] facility where the Encounter took place. Date/Time Current Smoking Status Comment Aj ity Aug 15, 2022 09:00 AM VA-TOBACCO FORMER USER [facility] Tobacco Use History This section includes a history of the smoking, or tobacco-related health factors, that were collected on or before the date of the Encounter. The data comes from the [facility] facility where the Encounter took place. Date/Time Smoking Status/Tobacco Use Comment F acility Aug 15, 2022 09:00 AM VA-TOBACCO QUIT 15 YRS OR MORE [facility] Aug 21, 2021 01:00 PM VA-TOBACCO FORMER USER [facility] Aug 21, 2021 01:00 PM VA-TOBACCO QUIT 15 YRS OR MORE [facility] Jul 09, 2018 08:58 AM VA-TOBACCO FORMER USER [facility] Jul 09, 2018 08:58 AM VA-TOBACCO QUIT 15 YRS OR MORE [facility] Jul 18, 2017 09:58 AM FORMER TOBACCO USER 7Y OR GREATE R [facility] Aug 14, 2016 10:59 AM FORMER TOBACCO USER 7Y OR GREATE R [facility] Jun 29, 2015 02:03 PM FORMER TOBACCO USER 7Y OR GREATE R [facility] Jan 06, 2014 03:04 PM FORMER TOBACCO USER 7Y OR KIAH R [facility] Jan 04, 2012 08:36 AM FORMER TOBACCO USER 7Y OR KIAH Khan [facility] Radiology Reports: +/- 30 days of [...] the Encounter. The data comes from all [facility] treatment facilities. Date/Time Radiology Report Provider Source Aug 28, 2022 12:35 PM HIP LEFT 2 VIEWS W /PELVIS: JUAN THOMPSON [id number] M Exm Date: AUG 28, 2022@12:35 Req Phys: VIPUL CRANE Pat Loc: [facility] RES 03 WH 4F (Req' Img Loc: MAIN X-RAY Service: Unknown (Case [id number] COMPLETE) HIP LEFT 2 VIEWS W/PELVIS (RAD Detailed) CPT:74814 Proc Modifiers : LEFT Reason for Study: [...] 28, 2022 Date Verified: AUG 28, 2022 Teaching Pastor E-Sig:/ES/LYNNE MARTÍNEZ DO Report: EXAMINATION: HIP LEFT [...] Primary Interpreting Staff: LYNNE MARTÍNEZ DO, RADIOLOGIST (Teaching Pastor) /DDS LYNNE MARTÍNEZ [facility] Encounter Notes: All associated encounter notes This section contains the clinical notes associated to the Encounter. Date/Time Encounter Note(s) Provider Source Aug 21, 2022 07:43 PM PSYCHIATRY E & M NOTE: LOCAL TITLE: MH PSYCHIATRIC EVALUATION & MANAGEMENT STANDARD TITLE: PSYCHIATRY E & M NOTE DATE OF NOTE: AUG 21, 2022@19:43 ENTRY DATE: AUG 21, 2022@19:43:18 AUTHOR: USHA PURI EXP COSIGNER: URGENCY: STATUS: COMPLETED MH PSYCHIATRIC EVALUATION & MANAGEMENT Has ADDENDA PSYCHIATRIC EVALUATION AND MANAGEMENT FOLLOW UP VISIT Pt seen for MH followup, appropriate PPE worn throughout. His main health concerns are pain in his knees and hips; he is working with other providers to eventually undergo total hip replacement. In terms of MH, denies any interval changes. Mood generally stable. He feels he has some up periods, during which he more enthusiastically writes stories, an autobiography of sorts drawing from his own life experiences. He's self-conscious that others notices he is behaving differently from them, but otherwise denies any manic symptoms that create distres or functional impairment. Continues MH medication regimen which he's been on for an extended period, feels he's tolerating well, denies any adverse effects. 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 Denies any recent episodes of depression. States that he often thinks about the topic of suicide, but in an intellectual way, not with any desire or plans. Denies any safety concerns. He likes where he's living, feels safe there. He was accompanied to [facility] today by someone working with his guardianship organization; they remained in waiting room per his preference. MSE: Elderly man, appears documented age, seated in chair. Slightly disheveled. Appears well-nourished. No restlessness, tremors or repetitive movements appreciated. Speech is fluent, no word finding deficits. Comprehension intact. Logical and organized, moreso than last visit (see 04/30 note). Some perseveration on a prior psychiatrist of his who is now , that person's health issues and how it has him concerned about his own; redirectable. No SI or HI. No delusions or obsessions. MoCA (09/2021) SUICIDE RISK ASSESSMENT: low acute risk Risk factors: age, gender, race, mental health disease, history of suicide attempt, strained relationship with son Protective factors: established connection with the mental health clinic, motivated to improve mental and physical health, positive connection with legal guardian, safe and supportive living situation, absence of current SI or HI. ASSESSMENT: 76 yo male with PMH significant for GERD, hx bariatric surgery, AF, HTN, DM2, MCI, hx psychosis, bipolar 2 disorder, STEPHANIE and MDD, seen today for geriatric psychiatry follow-up. Interval stability in MH, continuing longstanding regimen of medication for mood stabilization. Given severity of MH history, continued tolerability of and benefit from current meds, will continue without changes. Pt motivated to attend to other aspects of his health. While he may have some degree of cognitive impairment, his engagement in discussion about health conditions and medications today indicates good awareness of his overall health. Given continued legal guardianship and supervised care setting, no acute safety concerns. Engages in treatment planning outlined below. TREATMENT PLAN: 1) Continue Aripiprazole 15 mg po daily. Monitor labs upcoming w/ primary care. 2) Continue Venlafaxine 150 mg po daily. 3) Continue Bupropion 24HR 150 mg po daily. 4) At followup, reassess indications for and interest in neuropsychiatric testing, given prior below-normal MoCA. 5) RTC in 3 months. Call sooner with questions or concerns. Aware of clinic c contact info and crisis/emergency services to utilize if needed. /pablo/ USHA PURI MD Staff Psychiatrist Signed: 08/21/2022 19:55 08/21/2022 ADDENDUM STATUS: COMPLETED EDUCATION / SAFETY / MH TREATMENT PLAN: [...] next appointment. Patient is aware of additional services that are available, including emergency room [...] medical record, and care coordination: >30 min. /pablo/ USHA PURI MD Staff Psychiatrist Signed: 08/21/2022 19:55 USHA PURI [facility] Aug 21, 2022 10:25 AM MENTAL HEALTH E & M NOTE: LOCAL TITLE: TARDIVE DYSKINESIA EXAM STANDARD TITLE: MENTAL HEALTH E & M NOTE DATE OF NOTE: AUG 21, 2022@10:25 ENTRY DATE: AUG 21, 2022@10:25:35 AUTHOR: WALTER MCKEON EXP COSIGNER: URGENCY: STATUS: COMPLETED AIMS (Mental Health Instrument) The patient was evaluated for symptoms of tardive dyskinesia using the AIMS. Total score for items 1-7: 0 1. Facial and Oral Movements Muscles of facial expression, e.g., movements of forehead, eyebrows, periorbital area, cheeks. Include frowning, blinking, grimacing of upper face. None 2. Facial and Oral Movements Lips and perioral area, e.g., puckering, pouting, smacking. None 3. Facial and Oral Movements Jaw, e.g., biting, clenching, chewing, mouth opening, lateral movement. None 4. Facial and Oral Movements Tongue. Rate only increase in movement both in and out of mouth, not inability to sustain movement. None 5. Extremity Movements Upper (arms, wrists, hands, fingers). Include movements that are choreic (rapid, objectively purposeless, Irregular, spontaneous) or athetoid (slow, irregular, complex, serpentine). Do not include tremor (repetitive, regular, rhythmic movements). None 6. Extremity Movements Lower (legs, knees, ankles, toes), e.g., lateral knee movement, foot tapping, heel dropping, foot squirming, Inversion and eversion of foot. None 7. Trunk Movements Neck, shoulders, hips, e.g., rocking, twisting, squirming, pelvic gyrations. Include diaphragmatic movements. None 8. Global Judgments Severity of abnormal movements. none, normal 9. Global Judgments Incapacitation due to abnormal movements. none, normal 10. Global Judgments Patient's awareness of abnormal movements. Rate only patient's report no awareness 11. Dental Status Current problems with teeth and/or dentures. yes 12. Dental Status Does patient usually wear dentures? yes The Psychiatrist/Clinician is responsible for determining if the patient has Tardive Dyskinesia and document it in the patients record. Last exam date/score/severity ratin09/11/2018 score was zero Only items 1-7 are counted in the total score. Items 8-10 are global judgments; items 11-12 indicate dental status. Exam score of 3 or more on 1 body region, or, 2 or more on 2 body regions, qualifies patients for Schooler's and Hurd's criteria of Tardive Dyskinesia. Scoring Thomas: 0=None, 1=minimal-might be normal, 2=mild, 3=moderate, 4=severe Tardive Dyskinesia Education: Yes/Date: 08/21/2022 EDUCATION: RISK OF TARDIVE DYSKINESIA - Patient demonstrates readiness to learn, informed of TD and EPS (extrapyramidal symptoms) from neuroleptic medication. Patient has been informed there is a risk of irreversible side effects including abnormal movements of the mouth, tongue or other body parts from psychiatric medications. Patient reports understand side effects from neuroleptic medication and agrees to discuss concerns, if any, with prescriber. Patient agrees to take medications as prescribed and to inform staff if there are side effects and to seek emergency medical care if serious side effects develop. /pablo/ WALTER MCKEON LPN STAFF NURSE Signed: 08/21/2022 10:27 Receipt Acknowledged By: * AWAITING SIGNATURE * USHA PURI * AWAITING SIGNATURE * MYLES JOE LORI [facility]
--- OUTSIDE RECORDS SUMMARY | 2023-08-13 12:26 | XMS_ITS | Encounter Summary ---
Author Name [facility] Organization [facility] Address [address] [place] [address] Support Name Relationship Address Phone SIRIA THOMPSON Next of Kin [address] [place], [place] [phone] SIRIA THOMPSON Emergency Contact [address] [place] [phone] NATHALIE DING Emergency Contact Unknown Insurance Providers: [...] PART A Sep 26, 2012 PART A [id number] [facility] [phone] JUAN THOMPSON JR PATIENT MEDICARE (WNR) MEDICARE (M) PART B Sep 26, 2012 PART B [id number] [phone] JUAN THOMPSON JR PATIENT Selected Encounter This section includes the information on record at [facility] for the Encounter. Date/Time Encounter Type Encounter Description Reason Provider Source Aug 28, 2022 11:40 AM OFFICE O/P EST SF 10-19 MIN ORTHO/JOINT SURG ICD-10-CM M17.0 Bilateral primary osteoarthritis of knee KAMAR VARELA Encounter Template Text not used by [place] Assessments - Encounter Diagnoses This section includes the primary and secondary diagnoses documented for the Encounter. Date/Time Primary/Secondary Diagnosis Diagnosis Name Provider Source Aug 29, 2022 08:24 AM PRIMARY Bilateral primary osteoarthritis of knee KAMAR VARELA [facility] Plan of Treatment: Future Appointments (+ 6 months) and Future Tests (+/- 45 days) The Plan of Treatment section includes future care activities for the patient from [facility] This section includes future appointments and future orders which are active, pending or scheduled. Future Appointments This section includes appointments that were scheduled to occur 6 months from the date of the Encounter, up to a maximum of 20 appointments. The data comes from all [facility]. Appointment Date/Time Appointment Type Appointme nt Facility Name Sep 03, 2022 05:00 PM AMBULATORY - REHAB MEDICIN E [facility] Sep 10, 2022 08:00 AM AMBULATORY - NONE [place] Sep 10, 2022 08:30 AM AMBULATORY - REHAB MEDICIN E [facility] Sep 10, 2022 11:00 AM AMBULATORY - NONE [place] [facility] [facility] Sep 11, 2022 10:30 AM AMBULATORY - MEDICINE [place] [facility] Sep 11, 2022 11:45 AM AMBULATORY - NONE [place] Sep 28, 2022 08:30 AM AMBULATORY - NONE [place] [facility] [facility] Sep 28, 2022 09:00 AM AMBULATORY - NONE [place] [facility] [facility] Sep 28, 2022 09:30 AM AMBULATORY - REHAB MEDICIN E [facility] Oct 01, 2022 07:00 AM AMBULATORY - NONE [place] [facility] Oct 01, 2022 07:15 AM AMBULATORY - NONE [place] [facility] Nov 06, 2022 10:00 AM AMBULATORY - MEDICINE [place] [facility] Nov 06, 2022 12:45 PM AMBULATORY - NONE [place] [facility] Nov 19, 2022 11:00 AM AMBULATORY [place]AT[place] [facility] November 27, 2022 01:15 PM AMBULATORY - NONE [place] [facility] Dec 28, 2022 10:30 AM AMBULATORY - MEDICINE [place] [facility] Dec 31, 2022 09:00 AM AMBULATORY [place] PS[place]IATRY [place] [facility] Jan 16, 2023 10:00 AM AMBULATORY [place] PS[place]IATRY [place] [facility] Jan 17, 2023 10:00 AM AMBULATORY [place] PS[place]ATRY [place] [facility] Feb 13, 2023 01:45 PM AMBULATORY - SURGERY [place] [facility] Lab Results: +/- 30 days of the encounter This section includes the Chemistry and Hematology Lab Results on record with [facility] for the patient. Radiology Reports and Pathology Reports are provided separately, in subsequent sections. Lab Results This section contains the Chemistry/Hematology Results that were resulted 30 days before or 30 daysafter the date of the Encounter. Date/Time Source Result Type Result - Unit Interpretation Reference Range Comment Sep 11, 2022 12:52 PM [facility] VITAMIN A Specimen Type: SERUM Comment: Vitamin supplementation within 24 hours prior to blood draw may affect the accuracy of the results. This test was developed and its analytical performance characteristics have been determined by [employer] [place], [place]. It has not been cleared or approved by the U.S. Food and Drug Administration. This assay has been validated pursuant to the CLIA regulations and is used for clinical purposes. Test Performed by [facility], [facility], [address] [place] [address] Devante Meyer M.D., Ph.D., Director of Laboratories , CLIA [id number] Ordering Provider: ABBY COHEN Report Released Date/Time: Sep 11, 2022 11:28 AM Reporting Lab: [facility] [id number] Performing Lab: [address] VITAMIN A 58 38-98 Sep 11, 2022 12:52 PM [facility] PTH-N-TACT Specimen Type: PLASMA No comment entered. Ordering Provider: ABBY COHEN Report Released Date/Time: Sep 11, 2022 11:28 AM Reporting Lab: [facility] [id number] Performing Lab: [facility] [id number] PTH-N-TACT 62.1 8.7-77.1 Aug 28, 2022 10:51 AM [facility] LIPID PANEL,NON-FASTING Specimen Type: PLASMA No comment entered. Ordering Provider: VIPUL CRANE Report Released Date/Time: Aug 15, 2022 09:14 AM Reporting Lab: [facility] [id number] Performing Lab: [facility] [address] CHOLESTEROL 115 <199 .HDL 43 >40 LDL CALCULATION 58 <99 VLDL CALCULATION 14 <29 NON HDL CHOLESTEROL 72 <129 TRIG(NON FASTING) 70 <149 Aug 28, 2022 10:51 AM [facility] B 12 Specimen Type: SERUM No comment entered. Ordering Provider: VIPUL CRANE Report Released Date/Time: Aug 15, 2022 10:30 AM Reporting Lab: [facility] [id number] Performing Lab: [place] [id number] B 12 934 H 213-816 Aug 28, 2022 10:51 AM [facility] HEMOGLOBIN A1C Specimen [...] Aug 15, 2022 09:14 AM Reporting Lab: [facility] [id number] Performing Lab: [facility] [id number] HEMOGLOBIN A1C 8.4 H 4.0-6.0 Aug 28, 2022 10:51 AM [facility] FOLATE Specimen Type: SERUM No comment entered. Ordering Provider: VIPUL CRANE Report Released Date/Time: Aug 15, 2022 10:30 AM Reporting Lab: [facility] [address] Performing Lab: [facility] [address] FOLATE 16.2 >7.0 Aug 28, 2022 10:51 AM [facility] TSH W/REFLEX TO FREE T4 Specimen Type: PLASMA No comment entered. Ordering Provider: VIPUL CRANE Report Released Date/Time: Aug 15, 2022 10:30 AM Reporting Lab: [facility] [phone] Performing Lab: [facility] [address] TSH 2.66 0.35-4.94 Aug 28, 2022 10:51 AM [facility] CBC Specimen Type: BLOOD No comment entered. Ordering Provider: VIPUL CRANE Report Released Date/Time: Aug 15, 2022 09:14 AM Reporting Lab: [facility] [id number] Performing Lab: [facility] [address] WBC 8.61 4.0-11.0 RBC 4.26 L 4.6-6.2 HGB 11.2 L 13.5-17.9 HCT 35.4 L 41-54 MCV 83.1 80-100 MCH 26.3 L 27-33 MCHC 31.6 L 32.0-37.5 PLT 345 150-400 MPV 9.4 7.4-10.4 RDW 15.0 H 11.5-14.5 Aug 28, 2022 10:51 AM [facility] VIT D 25-OH,TOTAL Specimen Type: SERUM No comment entered. Ordering Provider: VIPUL CRANE Report Released Date/Time: Aug 15, 2022 10:31 AM Reporting Lab: [facility] [phone] Performing Lab: [facility] [address] VIT D 25-OH,TOTAL 58 H 12-50 Aug 28, 2022 10:51 AM [facility] BASIC METABOLIC PANEL+MG Specimen Type: PLASMA No comment entered. Ordering Provider: INGRID BURLESON Report Released Date/Time: Jul 11, 2022 01:04 PM Reporting Lab: [facility] [phone] Performing Lab: [facility] [phone] CREATININE 1.1 0.7-1.2 UREA NITROGEN 20 8-26 GLUCOSE 170 H 70-100 SODIUM 141 136-145 POTASSIUM 4.2 3.5-5.1 CHLORIDE 103 98-107 CO2 31 H 22-29 CALCIUM 9.4 8.4-10.2 MAGNESIUM 1.5 L 1.6-2.6 ANION GAP 7 5-15 CREAT EGFR(CKD-EPI ) 70 >60 Aug 28, 2022 10:51 AM [facility] IRON GROUP Specimen Type: SERUM No comment entered. Ordering Provider: VIUPL CRANE Report Released Date/Time: Aug 15, 2022 10:30 AM Reporting Lab: [facility] [phone] Performing Lab: [facility] [address] IRON 29 L 65-175 TIBC,CALCULA ASCENCION 399 250-425 FERRITIN 19.7 L 21.8-274.7 IRON SATURATION 7 L 20-50 TRANSFERRIN 319 163-382 Aug 15, 2022 09:38 AM [facility] MICROALBUMIN/CREATININE RATIO URINE Specimen Type: URINE No comment entered. Ordering Provider: VIPUL CRANE Report Released Date/Time: Aug 15, 2022 09:10 AM Reporting Lab: [facility] [id number] Performing Lab: [facility] [address] CREATININE,U R RANDOM 97.8 58.0-161.0 ALB/CREAT RATIO,UR 24.7 <29.9 MICROALBUMIN ,UR 24.2 <29.9 Social History: Smoking Status (Most current) and Tobacco Use (All prior to encounter date) This section includes the most current, and the historical, smoking and tobacco- related health factors from the [facility] facility where the Encounter took place. Current Smoking Status This section includes the most current smoking, or tobacco-related health factor, from the [facility] facility where the Encounter took place. Date/Time Current Smoking Status Comment Aj ity Aug 15, 2022 09:00 AM VA-TOBACCO FORMER USER [facility] Tobacco Use History This section includes a history of the smoking, or tobacco-related health factors, that were collected on or before the date of the Encounter. The data comes from the [facility] facility where the Encounter took place. Date/Time [...] the Encounter. The data comes from all [place] treatment facilities. Date/Time Radiology Report Provider Source Aug 28, 2022 12:35 PM HIP LEFT 2 VIEWS W /PELVIS: JUAN THOMPSON [id number] M Exm Date: AUG 28, 2022@12:35 Req Phys: VIPUL CRANE Loc: [facility] APACT L RES 03 WH 4F (Req' Img Loc: MAIN X-RAY Service: Unknown (Case [id number] COMPLETE) HIP LEFT 2 VIEWS W/PELVIS (RAD Detailed) CPT:11102 Proc Modifiers : LEFT Reason for Study: Left hip pain Clinical History: [place] IS NOT under investigation for COVID-19 or is COVID-19 negative Hip Pain Responsible provider name and phone number to notify for critical findings if other than user placing the order and pager listed below: User placing orders pager: LAST CREATININE 1.1 (07/11/22) Report Status: Verified Date Reported: AUG 28, 2022 Date Verified: AUG 28, 2022 Assembly Worker E-Sig:/ES/LYNNE MARTÍNEZ DO Report: EXAMINATION: HIP LEFT [...] Primary Interpreting Staff: LYNNE MARTÍNEZ DO, RADIOLOGIST (Assembly Worker) /DDS LYNNE MARTÍNEZ [facility] Encounter Notes: All associated encounter notes This section contains the clinical notes associated to the Encounter. Date/Time Encounter Note(s) Provider Source Aug 29, 2022 08:11 AM ORTHOPEDIC SURGERY ATTENDING NOTE: LOCAL TITLE: ORTHOPEDIC CLINIC NOTE STANDARD TITLE: ORTHOPEDIC SURGERY ATTENDING NOTE DATE OF NOTE: AUG 29, 2022@08:11 ENTRY DATE: AUG 29, 2022@08:11:51 AUTHOR: KAMAR VARELA COSIGNER: URGENCY: STATUS: COMPLETED PATIENT NAME: JUAN THOMPSON JR SSN:[id number] DATE OF : Sep DATE OF SERVICE: 08/28/22 11:40 CHIEF COMPLAINT: bilateral knee pain HISTORY OF PRESENT ILLNESS: 76 year old male returning for bilateral knee pain. He has been followed in the orthopedic clinic for right hip, and bilateral knee pain in the past. He has advanced degenerative arthritis in all 3 joints. Currenlty the right hip is the most bothersome, and did have a discussion with Dr Floyd regarding possible MARK if symptoms progress. He is still thinking about that option, but is returning today for knee pain. The knees still are relatively stable. He has received cortisone injections in the past, last 05/23/22 which have helped his knee pain. He is returning today to consider repeat injection. PHYSICAL EXAM: VSD - Detailed Vitals Date Vital Measurement Qualifiers 08/15/2022 08:56 Pulse 66 Respir 20 BP 129/74 Ht in (cm) 68 (172.72) Wt lbs (kg)[BMI] 224 (101.60)[34*] Pain 8 POx (L/Min)(%) 97 BMI: 34.1 EXAM: pleasant 76 year old male in no acute distress. His knees bilaterally show no specific effusion but does have lower extremity edema bilaterally with redness. He may lack a couple of degrees of terminal extension, but can flex to 105 degrees. Mild varus alignment bilaterally. IMAGING: No new imaging, but reviewed xrays from December 2021, which confirmed tricompartmental arthritis, worse in medial compartment. ASSESSMENT:bilateral knee degenerative arthritis PLAN: Imed consent would not populate today, but we discussed the options of PT, bracing, injections and TKA along with the risks, benefits of cortisone injection. He is diabetic with last Hgb A1c of 8.4 today. We discussed that all things being equal, he may consider the MARK first when pain reaches level that he would like to consider. The knees were prepped with chloroprep. Each knee was injected with 1 cc depomedrol 40 mg/ml and 4 cc 0.25% bupivicaine without complication. He could repeat injection as soon as 3-4 months. This note was entered using speech recognition software. Although I diligently review and edit my dictations, insensible words or phrases may be present. /pablo/ KAMAR VARELA PA-C PHYSICIAN DYNAMO TENDER Signed: 08/29/2022 08:24 KAMAR VARELA [facility]
--- OUTSIDE RECORDS SUMMARY | 2023-08-13 12:27 | XMS_ITS | Encounter Summary ---
Author Name [facility] Organization [facility] Address [address] [place] [address] Support Name Relationship Address Phone SIRIA THOMPSON Next of Kin [address] [place], [place] [phone] SIRIA THOMPSON Emergency Contact [address] [place] [phone] NATHALIE DING Emergency Contact Unknown Insurance Providers: [...] PART A Sep 26, 2012 PART A [id number] [facility] [phone] JUAN THOMPSON JR PATIENT MEDICARE (WNR) MEDICARE (M) PART B Sep 26, 2012 PART B [id number] [phone] JUAN THOMPSON JR PATIENT Selected Encounter This section includes the information on record at [facility] for the Encounter. Date/Time Encounter Type Encounter Description Reason Pro vider Source Aug 31, 2022 11:55 AM Outpatient Encounter TELEPHONE PRIMARY CARE [facility] Encounter Template Text not used by [facility] Plan of Treatment: Future Appointments (+ 6 months) and Future Tests (+/- 45 days) The Plan of Treatment section includes future care activities for the patient from all [facility] treatmentfacilities. This section includes future appointments and future orders which are active, pending or scheduled. Future Appointments This section includes appointments that were scheduled to occur 6 months from the date of the Encounter, up to a maximum of 20 appointments. The data comes from all [facility] treatment [facility]. Appointment Date/Time Appointment Type Appointme nt Facility Name Sep 03, 2022 05:00 PM AMBULATORY - REHAB MEDICIN E [facility] Sep 10, 2022 08:00 AM AMBULATORY - NONE [place] [facility] Sep 10, 2022 08:30 AM AMBULATORY - REHAB MEDICIN E [facility] Sep 10, 2022 11:00 AM AMBULATORY - NONE [place] [facility] Sep 11, 2022 10:30 AM AMBULATORY [place]IC[place] [facility] Sep 11, 2022 11:45 AM AMBULATORY - NONE [place] [facility] Sep 28, 2022 08:30 AM AMBULATORY - NONE [place] [facility] Sep 28, 2022 09:00 AM AMBULATORY - NONE [place] [facility] Sep 28, 2022 09:30 AM AMBULATORY - REHAB MEDICIN E [facility] Oct 01, 2022 07:00 AM AMBULATORY - NONE [place] [facility] Oct 01, 2022 07:15 AM AMBULATORY - NONE [place] [facility] Nov 06, 2022 10:00 AM AMBULATORY - [place]ICINE [place] [facility] Nov 06, 2022 12:45 PM AMBULATORY - NONE [place] [facility] Nov 19, 2022 11:00 AM AMBULATORY [place] [facility] November 27, 2022 01:15 PM AMBULATORY - NONE [place] [facility] Dec 28, 2022 10:30 AM AMBULATORY - MEDICINE [place] [facility] Dec 31, 2022 09:00 AM AMBULATORY [place] [facility] Jan 16, 2023 10:00 AM AMBULATORY [place] [facility] Jan 17, 2023 10:00 AM AMBUL[place]ORY [place] [facility] Feb 13, 2023 01:45 PM AMBULATORY - SURGERY [place] [facility] Lab Results: +/- 30 days of the [...] Range Comment Sep 11, 2022 12:52 PM [facility] VITAMIN A Specimen Type: SERUM Comment: Vitamin supplementation within 24 hours prior to blood draw may affect the accuracy of the results. This test was developed and its analytical performance characteristics have been determined by [facility] [place], [place]. It has not been cleared or approved by the U.S. Food and Drug Administration. This assay has been validated pursuant to the CLIA regulations and is used for clinical purposes. Test Performed by [facility], [facility], [address] [place] [address] Devante Meyer M.D., Ph.D., Director of Laboratories , CLIA [id number] Ordering Provider: ABBY COHEN Report Released Date/Time: Sep 11, 2022 11:28 AM Reporting Lab: [facility] [id number] Performing Lab: [address] VITAMIN A 58 38-98 Sep 11, 2022 12:52 PM [facility] PTH-N-TACT Specimen Type: PLASMA No comment entered. Ordering Provider: ABBY COHEN Report Released Date/Time: Sep 11, 2022 11:28 AM Reporting Lab: [facility] [id number] Performing Lab: [facility] [address] PTH-N-TACT 62.1 8.7-77.1 Aug 28, 2022 10:51 AM [facility] HEMOGLOBIN A1C Specimen Type: BLOOD Comment: [...] AM Reporting Lab: [facility] [address] Performing Lab: [facility] [address] HEMOGLOBIN A1C 8.4 H 4.0-6.0 Aug 28, 2022 10:51 AM [facility] LIPID PANEL,NON-FASTING Specimen Type: PLASMA No comment entered. Ordering Provider: VIPUL CRANE Report Released Date/Time: Aug 15, 2022 09:14 AM Reporting Lab: [facility] [address] Performing Lab: [facility] [address] CHOLESTEROL 115 <199 .HDL 43 >40 LDL CALCULATION 58 <99 VLDL CALCULATION 14 <29 NON HDL CHOLESTEROL 72 <129 TRIG(NON FASTING) 70 <149 Aug 28, 2022 10:51 AM [facility] BASIC METABOLIC PANEL+MG Specimen Type: PLASMA No comment entered. Ordering Provider: INGRID BURLESON Report Released Date/Time: Jul 11, 2022 01:04 PM Reporting Lab: [facility] [address] Performing Lab: [facility] [address] CREATININE 1.1 0.7-1.2 UREA NITROGEN 20 8-26 GLUCOSE 170 H 70-100 SODIUM 141 136-145 POTASSIUM 4.2 3.5-5.1 CHLORIDE 103 98-107 CO2 31 H 22-29 CALCIUM 9.4 8.4-10.2 MAGNESIUM 1.5 L 1.6-2.6 ANION GAP 7 5-15 CREAT EGFR(CKD-EPI ) 70 >60 Aug 28, 2022 10:51 AM [facility] B 12 Specimen Type: SERUM No comment entered. Ordering Provider: VIPUL CRANE Report Released Date/Time: Aug 15, 2022 10:30 AM Reporting Lab: [facility] [address] Performing Lab: [facility] [address] B 12 934 H 213-816 Aug 28, 2022 10:51 AM [facility] FOLATE Specimen Type: SERUM No comment entered. Ordering Provider: VIPUL CRANE Report Released Date/Time: Aug 15, 2022 10:30 AM Reporting Lab: [facility] [address] Performing Lab: [facility] [address] FOLATE 16.2 >7.0 Aug 28, 2022 10:51 AM [facility] TSH W/REFLEX TO FREE T4 Specimen Type: PLASMA No comment entered. Ordering Provider: VIPUL CRANE Report Released Date/Time: Aug 15, 2022 10:30 AM Reporting Lab: [facility] [address] Performing Lab: [facility] [address] TSH 2.66 0.35-4.94 Aug 28, 2022 10:51 AM [facility] VIT D 25-OH,TOTAL Specimen Type: SERUM No comment entered. Ordering Provider: VIPUL CRANE Report Released Date/Time: Aug 15, 2022 10:31 AM Reporting Lab: [facility] [address] Performing Lab: [facility] [address] VIT D 25-OH,TOTAL 58 H 12-50 Aug 28, 2022 10:51 AM [facility] CBC Specimen Type: BLOOD No comment entered. Ordering Provider: VIPUL CRANE Report Released Date/Time: Aug 15, 2022 09:14 AM Reporting Lab: [facility] [address] Performing Lab: [facility] [address] WBC 8.61 4.0-11.0 RBC 4.26 L 4.6-6.2 HGB 11.2 L 13.5-17.9 HCT 35.4 L 41-54 MCV 83.1 80-100 MCH 26.3 L 27-33 MCHC 31.6 L 32.0-37.5 PLT 345 150-400 MPV 9.4 7.4-10.4 RDW 15.0 H 11.5-14.5 Aug 28, 2022 10:51 AM [facility] IRON GROUP Specimen Type: SERUM No comment entered. Ordering Provider: VIPUL CRANE Report Released Date/Time: Aug 15, 2022 10:30 AM Reporting Lab: [facility] [address] Performing Lab: [facility] [address] IRON 29 L 65-175 TIBC,CALCULA ASCENCION 399 250-425 FERRITIN 19.7 L 21.8-274.7 IRON SATURATION 7 L 20-50 TRANSFERRIN 319 163-382 Aug 15, 2022 09:38 AM [facility] MICROALBUMIN/CREATININE RATIO URINE Specimen Type: URINE No comment entered. Ordering Provider: VIPUL CRANE Report Released Date/Time: Aug 15, 2022 09:10 AM Reporting Lab: [facility] [address] Performing Lab: [facility] [address] CREATININE,U R RANDOM 97.8 58.0-161.0 ALB/CREAT RATIO,UR 24.7 <29.9 MICROALBUMIN ,UR 24.2 <29.9 Social History: Smoking Status (Most current) and Tobacco Use (All prior to encounter date) This section includes the most current, and the historical, smoking and tobacco- related health factors from the [facility] where the Encounter took place. Current Smoking Status This section includes the most current smoking, or tobacco-related health factor, from the [facility] facility where the Encounter took place. Date/Time Current Smoking Status Comment Facil ity Aug 15, 2022 09:00 AM [facility]-TOBACCO FORMER USER [facility] Tobacco Use History This section includes a history of the smoking, or tobacco-related health factors, that were collected on or before the date of the Encounter. The data comes from the [facility] facility where the Encounter took place. Date/Time Smoking Status/Tobacco Use Comment F acility Aug 15, 2022 09:00 AM VA-TOBACCO QUIT 15 YRS OR MORE [facility] Aug 21, 2021 01:00 PM VA-TOBACCO FORMER USER [facility] Aug 21, 2021 01:00 PM VA-TOBACCO QUIT 15 YRS OR MORE [facility] Jul 09, 2018 08:58 AM VA-TOBACCO FORMER USER [facility] Jul 09, 2018 08:58 AM VA-TOBACCO QUIT 15 YRS OR MORE [facility] Jul 18, 2017 09:58 AM FORMER TOBACCO USER 7Y OR GREATE R [facility] Aug 14, 2016 10:59 AM FORMER TOBACCO USER 7Y OR GREATE R [facility] Jun 29, 2015 02:03 PM FORMER TOBACCO USER 7Y OR GREATE R [facility] Jan 06, 2014 03:04 PM FORMER TOBACCO USER 7Y OR GREATE R [facility] Jan 04, 2012 08:36 AM FORMER TOBACCO USER 7Y OR GREATE R [facility] Radiology Reports: +/- 30 days of [...] treatment facilities. Date/Time Radiology Report Provider Source Sep 28, 2022 08:55 AM ESOPHAGRAM VIDEO S WALLOW: JUAN THOMPSON [id number] -[id number] M Exm Date: SEP 28, 2022@08:55 Req Phys: VIPUL CRANE Loc: [facility] APACT L RES 03 WH 4F (Req' Img Loc: MAIN X-RAY Service: Unknown (Case [id number] COMPLETE) ESOPHAGRAM VIDEO SWALLOW (RAD Detailed) CPT:78842 Contrast Media : Barium Reason for Study: dysphagia Clinical History: [place] IS NOT under investigation for COVID-19 or [...] 28, 2022 Date Verified: SEP 28, 2022 Friction Paint Machine Tender E-Sig:/ES/VALENTINA LEON MD Report: EXAMINATION: ESOPHAGRAM VIDEO [...] pathologist report for additional findings and recommendations. Valentina Srivastava, have reviewed the images and report. Primary Interpreting Staff: VALENTINA LEON MD, RADIOLOGIST (Friction Paint Machine Tender) Primary Interpreting Resident: MARE ROMREO MD, SILK SPOTTER /VALENTINA CHAMPAGNE [facility] Aug 28, 2022 12:35 PM HIP LEFT 2 VIEWS W /PELVIS: JUAN THOMPSON [id number] -1945 M Ex Date: AUG 28, 2022@12:35 Req Phys: VIPUL CRANE Loc: [facility] APACT L RES 03 WH 4F (Req' Img Loc: MAIN X-RAY Service: Unknown (Case [id number] COMPLETE) HIP LEFT 2 VIEWS W/PELVIS (RAD Detailed) CPT:95049 Proc Modifiers : LEFT Reason for Study: [...] 28, 2022 Date Verified: AUG 28, 2022 Friction Paint Machine Tender E-Sig:/ES/LYNNE MARTÍNEZ DO Report: EXAMINATION: HIP LEFT [...] Primary Interpreting Staff: LYNNE MARTÍNEZ DO, RADIOLOGIST (Friction Paint Machine Tender) /DDS LYNNE MARTÍNEZ [facility] Encounter Notes: All associated encounter notes This section contains the clinical notes associated to the Encounter. Date/Time Encounter Note(s) Provider Source Aug 31, 2022 11:55 AM HOME HEALTH REFERR AL NOTE: LOCAL TITLE: [facility] STANDARD TITLE: HOME HEALTH REFERRAL NOTE DATE OF NOTE: AUG 31, 2022@11:55 ENTRY DATE: AUG 31, 2022@11:56:10 AUTHOR: NATHALIE ABRAHAM EXP COSIGNER: URGENCY: STATUS: COMPLETED HOME HEALTH CARE CERTIFICATION AND PLAN OF CARE SIGNED BY: Dr. Ordaz for [facility] in [place], [place] Certification period From: Aug To: Oct /pablo/ NATHALIE ABRAHAM RN REGISTERED NURSE Signed: 08/31/2022 11:57 NATHALIE ABRAHAM [facility]
--- OUTSIDE RECORDS SUMMARY | 2023-08-13 12:27 | XMS_ITS | Encounter Summary ---
Author Name [facility] Organization [facility] Address [address] [place] [address] Support Name Relationship Address Phone SIRIA THOMPSON Next of Kin [address] [place], [place] [phone] SIRIA THOMPSON Emergency Contact [address] [place] [phone] NATHALIE DING Emergency Contact Unknown Insurance Providers: [...] PART A Sep 26, 2012 PART A [id number] [facility] [phone] JUAN THOMPSON JR PATIENT MEDICARE (WNR) MEDICARE (M) PART B Sep 26, 2012 PART B [id number] [phone] JUAN THOMPSON JR PATIENT Selected Encounter This section includes the information on record at [facility] for the Encounter. Date/Time Encounter Type Encounter Description Reason Pro vider Source Sep 10, 2022 11:00 AM Outpatient Encounter CLINICAL PHARMACY E Encounter Template Text not used by [facility] Plan of Treatment: Future Appointments (+ 6 months) and Future Tests (+/- 45 days) The Plan of Treatment section includes future care activities for the patient from all [facility] treatmentfacilities. This section includes future appointments and future orders which are active, pending or scheduled. Future Appointments This section includes appointments that were scheduled to occur 6 months from the date of the Encounter, up to a maximum of 20 appointments. The data comes from all [facility] treatment facilities. Appointment Date/Time Appointment Type Appointme nt Facility Name Sep 11, 2022 10:30 AM AMBULATORY [place] [facility] Sep 11, 2022 11:45 AM AMBULATORY - NONE [facility] Sep 28, 2022 08:30 AM AM[facility]ATORY [place] Sep 28, 2022 09:00 AM AM[facility]ATORY [place] [facility] Sep 28, 2022 09:30 AM AMBULATORY - REHAB MEDICIN [place] [facility] Oct 01, 2022 07:00 AM AM[facility]ULATORY [place] [facility] Oct 01, 2022 07:15 AM AMBULATORY [facility] [place] Nov 06, 2022 10:00 AM [facility]ATORY [place] [facility] Nov 06, 2022 12:45 PM AMBULATORY - [place] [facility] Nov 19, 2022 11:00 AM AMBULATORY - PS[place]CHIATRY [place] [facility] November 27, 2022 01:15 PM AMBULATORY - [place] Dec 28, 2022 10:30 AM AM[facility]ATORY [place] Dec 31, 2022 09:00 AM AMBULATORY - PS[place]CHIATRY [place] [facility] Jan 16, 2023 10:00 AM AMBULATORY - PS[place]AT[place] [facility] Jan 17, 2023 10:00 AM AMBULATORY - PS[place]ATRY [place] [facility] Feb 13, 2023 01:45 PM [facility]ORY [place] [facility] Feb 13, 2023 03:15 PM [facility]ORY [facility] Feb 25, 2023 09:15 AM [facility] [place] [facility] Feb 25, 2023 09:30 AM [facility]ORY [place] [facility] Feb 25, 2023 11:00 AM AMBULATORY - [place] [facility] Lab Results: +/- 30 days of the encounter This section includes the Chemistry and Hematology Lab Results on record with [facility] for the patient. Radiology Reports and Pathology Reports are provided separately, in subsequent sections. Lab Results This section contains the Chemistry/Hematology Results that were resulted 30 days before or 30 daysafter the date of the Encounter. Date/Time Source Result Type Result - Unit Interpretation Reference Range Comment Sep 11, 2022 12:52 PM [facility] VITAMIN A Specimen Type: SERUM Comment: Vitamin supplementation within 24 hours prior to blood draw may affect the accuracy of the results. This test was developed and its analytical performance characteristics have been determined by [facility] [place], [place]. It has not been cleared or approved by the U.S. Food and Drug Administration. This assay has been validated pursuant to the CLIA regulations and is used for clinical purposes. Test Performed by [facility], [facility], [address] [place] [address] eDvante Meyer M.D., Ph.D., Director of Laboratories , CLIA [id number] Ordering Provider: ABBY COHEN Report Released Date/Time: Sep 11, 2022 11:28 AM Reporting Lab: [facility] [id number] Performing Lab: [address] VITAMIN A 58 38-98 Sep 11, 2022 12:52 PM [facility] PTH-N-TACT Specimen Type: PLASMA No comment entered. Ordering Provider: ABBY COHEN Report Released Date/Time: Sep 11, 2022 11:28 AM Reporting Lab: [facility] [id number] Performing Lab: [facility] [address] PTH-N-TACT 62.1 8.7-77.1 Aug 28, 2022 10:51 AM [facility] HEMOGLOBIN A1C Specimen Type: BLOOD Comment: [...] Aug 15, 2022 09:14 AM Reporting Lab: [facility] [id number] Performing Lab: [facility] [address] HEMOGLOBIN A1C 8.4 H 4.0-6.0 Aug 28, 2022 10:51 AM [facility] LIPID PANEL,NON-FASTING Specimen Type: PLASMA No comment entered. Ordering Provider: VIPUL CRANE Report Released Date/Time: Aug 15, 2022 09:14 AM Reporting Lab: [facility] [address] Performing Lab: [facility] [address] CHOLESTEROL 115 <199 .HDL 43 >40 LDL CALCULATION 58 <99 VLDL CALCULATION 14 <29 NON HDL CHOLESTEROL 72 <129 TRIG(NON FASTING) 70 <149 Aug 28, 2022 10:51 AM [facility] BASIC METABOLIC PANEL+MG Specimen Type: PLASMA No comment entered. Ordering Provider: INGRID BURLESON Report Released Date/Time: Jul 11, 2022 01:04 PM Reporting Lab: [facility] [address] Performing Lab: [facility] [address] CREATININE 1.1 0.7-1.2 UREA NITROGEN 20 8-26 GLUCOSE 170 H 70-100 SODIUM 141 136-145 POTASSIUM 4.2 3.5-5.1 CHLORIDE 103 98-107 CO2 31 H 22-29 CALCIUM 9.4 8.4-10.2 MAGNESIUM 1.5 L 1.6-2.6 ANION GAP 7 5-15 CREAT EGFR(CKD-EPI ) 70 >60 Aug 28, 2022 10:51 AM [facility] FOLATE Specimen Type: SERUM No comment entered. Ordering Provider: VIPUL CRANE Report Released Date/Time: Aug 15, 2022 10:30 AM Reporting Lab: [facility] [address] Performing Lab: [facility] [address] FOLATE 16.2 >7.0 Aug 28, 2022 10:51 AM [facility] B 12 Specimen Type: SERUM No comment entered. Ordering Provider: VIPUL CRANE Report Released Date/Time: Aug 15, 2022 10:30 AM Reporting Lab: [facility] [id number] Performing Lab: [facility] [address] B 12 934 H 213-816 Aug 28, 2022 10:51 AM [facility] TSH W/REFLEX TO FREE T4 Specimen Type: PLASMA No comment entered. Ordering Provider: VIPUL CRANE Report Released Date/Time: Aug 15, 2022 10:30 AM Reporting Lab: [facility] [address] Performing Lab: [facility] [address] TSH 2.66 0.35-4.94 Aug 28, 2022 10:51 AM [facility] VIT D 25-OH,TOTAL Specimen Type: SERUM No comment entered. Ordering Provider: VIPUL CRANE Report Released Date/Time: Aug 15, 2022 10:31 AM Reporting Lab: [facility] [address] Performing Lab: [facility] [address] VIT D 25-OH,TOTAL 58 H 12-50 Aug 28, 2022 10:51 AM [facility] CBC Specimen Type: BLOOD No comment entered. Ordering Provider: VIPUL CRANE Report Released Date/Time: Aug 15, 2022 09:14 AM Reporting Lab: [facility] [address] Performing Lab: [facility] [address] WBC 8.61 4.0-11.0 RBC 4.26 L 4.6-6.2 HGB 11.2 L 13.5-17.9 HCT 35.4 L 41-54 MCV 83.1 80-100 MCH 26.3 L 27-33 MCHC 31.6 L 32.0-37.5 PLT 345 150-400 MPV 9.4 7.4-10.4 RDW 15.0 H 11.5-14.5 Aug 28, 2022 10:51 AM [facility] IRON GROUP Specimen Type: SERUM No comment entered. Ordering Provider: VIPUL CRANE Report Released Date/Time: Aug 15, 2022 10:30 AM Reporting Lab: [facility] [address] Performing Lab: [facility] [address] IRON 29 L 65-175 TIBC,CALCULA ASCENCION 399 250-425 FERRITIN 19.7 L 21.8-274.7 IRON SATURATION 7 L 20-50 TRANSFERRIN 319 163-382 Aug 15, 2022 09:38 AM [facility] MICROALBUMIN/CREATININE RATIO URINE Specimen Type: URINE No comment entered. Ordering Provider: VIPUL CRANE Report Released Date/Time: Aug 15, 2022 09:10 AM Reporting Lab: [facility] [address] Performing Lab: [facility] [address] CREATININE,U R RANDOM 97.8 58.0-161.0 ALB/CREAT RATIO,UR [...] smoking, or tobacco-related health factor, from the [facility] facility where the Encounter took place. Date/Time Current Smoking Status Comment Facil ity Aug 15, 2022 09:00 AM VA-TOBACCO FORMER USER [facility] Tobacco Use History This section includes a history of the smoking, or tobacco-related health factors, that were collected on or before the date of the Encounter. The data comes from the [facility] facility where the Encounter took place. Date/Time Smoking Status/Tobacco Use Comment F acility Aug 15, 2022 09:00 AM VA-TOBACCO QUIT 15 YRS OR MORE [facility] Aug 21, 2021 01:00 PM VA-TOBACCO FORMER USER [facility] Aug 21, 2021 01:00 PM VA-TOBACCO QUIT 15 YRS OR MORE [facility] Jul 09, 2018 08:58 AM VA-TOBACCO FORMER USER [facility] Jul 09, 2018 08:58 AM VA-TOBACCO QUIT 15 YRS OR MORE [facility] Jul 18, 2017 09:58 AM FORMER TOBACCO USER 7Y OR GREATE R [facility] Aug 14, 2016 10:59 AM FORMER TOBACCO USER 7Y OR GREATE R [facility] Jun 29, 2015 02:03 PM FORMER TOBACCO USER 7Y OR GREATE R [facility] Jan 06, 2014 03:04 PM FORMER TOBACCO USER 7Y OR GREATE R [facility] Jan 04, 2012 08:36 AM FORMER TOBACCO USER 7Y OR GREATE R [facility] Radiology Reports: +/- 30 days of [...] the Encounter. The data comes from all [place] treatment facilities. Date/Time Radiology Report Provider Source Sep 28, 2022 08:55 AM ESOPHAGRAM VIDEO S JULIAN: JUAN THOMPSON [id number] -[id number] M Exm Date: SEP 28, 2022@08:55 Req Phys: VIPUL CRANE Loc: [facility] APACT L RES 03 WH 4F (Req' Img Loc: MAIN X-RAY Service: Unknown (Case [id number] COMPLETE) ESOPHAGRAM VIDEO SWALLOW (RAD Detailed) CPT:77919 Contrast Media : Barium Reason for Study: [...] 28, 2022 Date Verified: SEP 28, 2022 Sports Anchor E-Sig:/ES/VALENTINA LEON MD Report: EXAMINATION: ESOPHAGRAM VIDEO [...] Primary Interpreting Staff: VALENTINA LEON MD, RADIOLOGIST (Sports Anchor) Primary Interpreting Resident: MARE ROMERO MD, SUPERVISOR BODY ASSEMBLY /VALENTINA CHAMPAGNE [facility] Aug 28, 2022 12:35 PM HIP LEFT 2 VIEWS W /PELVIS: JUAN THOMPSON [id number] -[id number] M Exm Date: AUG 28, 2022@12:35 Req Phys: VIPUL CRANE Loc: [facility] APACT L RES 03 WH 4F (Req' Img Loc: MAIN X-RAY Service: Unknown (Case [id number] COMPLETE) HIP LEFT 2 VIEWS W/PELVIS (RAD Detailed) CPT:65097 Proc Modifiers : LEFT Reason for Study: [...] 28, 2022 Date Verified: AUG 28, 2022 Sports Anchor E-Sig:/ES/LYNNE MARTÍNEZ DO Report: EXAMINATION: HIP LEFT [...] are pelvic phleboliths. Primary Interpreting Staff: LYNNE D. MAURICIO, DO, RADIOLOGIST (Sports Anchor) /LYNNE FRANCISCO [facility] Encounter Notes: All associated encounter notes This section contains the clinical notes associated to the Encounter. Date/Time Encounter Note(s) Provider Source Sep 10, 2022 11:30 AM NO SHOW NOTE: LOCAL TITLE: NO SHOW/CANCELLATION CLINIC NOTE STANDARD TITLE: NO SHOW NOTE DATE OF NOTE: SEP 10, 2022@11:30 ENTRY DATE: SEP 10, 2022@11:30:38 AUTHOR: INGRID BURLESON COSIGNER: URGENCY: STATUS: COMPLETED NO SHOW/CANCELLATION CLINIC NOTE Has ADDENDA Spring not seen for scheduled appointment due to: No Show Patient had a scheduled appointment today with PACT pharmacist for medication management. Patient did not answer. Attempted to contact patient 2x within appt time. Left a voice message asking patient to call appointment line [phone] to reschedule. Call Center: if calls to reschedule, please book into any open slot in the following clinics per preference: - [facility] PACT PHONE PHARM WHIT 2 - [facility] PACT PHARM 4F GREEN 2 (in person clinic) - [facility] PHARM BENJY MSA: please cancel 's scheduled pharmacy appointment from today, thanks! Appointment Rescheduled: No /pablo/ INGRID BURLESON Clinical Squadron Worker Signed: 09/10/2022 11:30 Receipt Acknowledged By: 09/10/2022 12:17 /pablo/ STUART Cruz HEAD VOLUNTEER SERVICES DIRECTOR 09/10/2022 ADDENDUM STATUS: COMPLETED Patient called back and said he tried to answer the phone but he got a message that said [id number]. He doesn't know what that means or why it happened. Outboard Technician offered to r/s phone appointment but he didn't want to and copy writer offered to schedule in person and he didn't want to. Outboard Technician was about to offer a video appointment but patient said he just wants a note sent to Ingrid. He would like Ingrid to try and call him back today and if it happens again then to send him a letter. /pablo/ ROYA patiño [address] [facility] Signed: 09/10/2022 11:47 Receipt Acknowledged By: 09/10/2022 16:02 /pablo/ INGRID BURLESON Clinical Squadron Worker 09/10/2022 ADDENDUM STATUS: COMPLETED Attempted to contact patient 2x this afternoon; patient did not answer. will be sent a no show letter given missed appt from earlier. Outboard Technician will attempt contact again tomorrow. /pablo/ INGRID BURLESON Clinical Squadron Worker Signed: 09/10/2022 16:03 INGRID BURLESON [facility]
--- OUTSIDE RECORDS SUMMARY | 2023-08-13 12:27 | XMS_ITS | Encounter Summary ---
Author Name [facility] Organization [facility] Address [address] [place] [address] Support Name Relationship Address Phone SIRIA THOMPSON Next of Kin [address] [place], [place] [id number] SIRIA THOMPSON Emergency Contact [address] [place] [id number] NATHALIE DING Emergency Contact Unknown [phone] Insurance Providers: All historical and current Section [...] PART A Sep 26, 2012 PART A [id number] IRA [facility] [phone] JUAN THOMPSON JR PATIENT MEDICARE (WNR) MEDICARE (M) PART B Sep 26, 2012 PART B [id number] [phone] JUAN THOMPSON JR PATIENT Selected Encounter This section includes the information on record at [facility] for the Encounter. Date/Time Encounter Type Encounter Description Reason Pro vider Source Sep 10, 2022 08:30 AM Outpatient Encounter SPEECH-LANGUAGE PATHOLOGY IHE Encounter Template Text not used by [...] [facility] treatment facilities. Appointment Date/Time Appointment Type Appointme nt Facility Name Sep 11, 2022 10:30 AM AMBULATORY - MEDICINE [facility] Sep 11, 2022 11:45 AM AMBULATORY - NONE [facility] Sep 28, 2022 08:30 AM AMBULATORY - NONE [facility] Sep 28, 2022 09:00 AM AMBULATORY - NONE [facility] Sep 28, 2022 09:30 AM AMBULATORY - REHAB MEDICIN E [facility] Oct 01, 2022 07:00 AM AMBULATORY - NONE [facility] Oct 01, 2022 07:15 AM AMBULATORY - NONE [facility] Nov 06, 2022 10:00 AM AMBULATORY - MEDICINE [facility] Nov 06, 2022 12:45 PM AMBULATORY - NONE [facility] Nov 19, 2022 11:00 AM AMBULATORY - [place]CHIATRY [facility] November 27, 2022 01:15 PM AMBULATORY - NONE [facility] Dec 28, 2022 10:30 AM AMBULATORY - MEDICINE [facility] Dec 31, 2022 09:00 AM AMBULATORY - PS[facility]CHIATRY [facility] Jan 16, 2023 10:00 AM AMBULATORY - PS[facility]CHIATRY [facility] Jan 17, 2023 10:00 AM AMBULATORY - PS[facility]CHIATRY [facility] Feb 13, 2023 01:45 PM AMBULATORY - SURGERY [facility] Feb 13, 2023 03:15 PM AMBULATORY - NONE [facility] Feb 25, 2023 09:15 AM AMBULATORY - MEDICINE [facility] Feb 25, 2023 09:30 AM AMBULATORY - MEDICINE [facility] Feb 25, 2023 11:00 AM AMBULATORY - MEDICINE [facility] Lab Results: +/- 30 days of the encounter This section includes the Chemistry and Hematology Lab Results on record with [facility] for the patient. Radiology Reports and Pathology Reports are provided separately, in subsequent sections. Lab Results This section contains the Chemistry/Hematology Results that were resulted 30 days before or 30 daysafter the date of the Encounter. Date/Time Source Result Type Result - Unit Interpretation Reference Range Comment Sep 11, 2022 12:52 PM [facility] VITAMIN A Specimen Type: SERUM Comment: Vitamin supplementation within 24 hours prior to blood draw may affect the accuracy of the results. This test was developed and its analytical performance characteristics have been determined by [employer] [place], [place]. It has not been cleared or approved by the U.S. Food and Drug Administration. This assay has been validated pursuant to the CLIA regulations and is used for clinical purposes. Test Performed by [facility], [employer] [facility], [address] [place] [address] Devante Meyer M.D., Ph.D., Director of Laboratories , CLIA [id number] Ordering Provider: ABBY COHEN Report Released Date/Time: Sep 11, 2022 11:28 AM Reporting Lab: [facility] [id number] Performing Lab: [address] VITAMIN A 58 38-98 Sep 11, 2022 12:52 PM [facility] PTH-N-TACT Specimen Type: PLASMA No comment entered. Ordering Provider: ABBY COHEN Report Released Date/Time: Sep 11, 2022 11:28 AM Reporting Lab: [facility] [id number] Performing Lab: [facility] [id number] PTH-N-TACT 62.1 8.7-77.1 Aug 28, 2022 10:51 AM [facility] HEMOGLOBIN A1C Specimen Type: BLOOD Comment: Values [...] Aug 15, 2022 09:14 AM Reporting Lab: [facility] [id number] Performing Lab: [facility] [address] HEMOGLOBIN A1C 8.4 H 4.0-6.0 Aug 28, 2022 10:51 AM [facility] LIPID PANEL,NON-FASTING Specimen Type: PLASMA No comment entered. Ordering Provider: VIPUL CRANE Report Released Date/Time: Aug 15, 2022 09:14 AM Reporting Lab: [facility] [address] Performing Lab: [facility] [address] CHOLESTEROL 115 <199 .HDL 43 >40 LDL CALCULATION 58 <99 VLDL CALCULATION 14 <29 NON HDL CHOLESTEROL 72 <129 TRIG(NON FASTING) 70 <149 Aug 28, 2022 10:51 AM [facility] BASIC METABOLIC PANEL+MG Specimen Type: PLASMA No comment entered. Ordering Provider: INGRID BURLESON Report Released Date/Time: Jul 11, 2022 01:04 PM Reporting Lab: [facility] [address] Performing Lab: [facility] [address] CREATININE 1.1 0.7-1.2 UREA NITROGEN 20 8-26 GLUCOSE 170 H 70-100 SODIUM 141 136-145 POTASSIUM 4.2 3.5-5.1 CHLORIDE 103 98-107 CO2 31 H 22-29 CALCIUM 9.4 8.4-10.2 MAGNESIUM 1.5 L 1.6-2.6 ANION GAP 7 5-15 CREAT EGFR(CKD-EPI ) 70 >60 Aug 28, 2022 10:51 AM [facility] B 12 Specimen Type: SERUM No comment entered. Ordering Provider: VIPUL CRANE Report Released Date/Time: Aug 15, 2022 10:30 AM Reporting Lab: [facility] [address] Performing Lab: [facility] [address] B 12 934 H 213-816 Aug 28, 2022 10:51 AM [facility] FOLATE Specimen Type: SERUM No comment entered. Ordering Provider: VIPUL CRANE Report Released Date/Time: Aug 15, 2022 10:30 AM Reporting Lab: [facility] [address] Performing Lab: [facility] [address] FOLATE 16.2 >7.0 Aug 28, 2022 10:51 AM [facility] CBC Specimen Type: BLOOD No comment entered. Ordering Provider: VIPUL CRANE Report Released Date/Time: Aug 15, 2022 09:14 AM Reporting Lab: [facility] [address] Performing Lab: [facility] [address] WBC 8.61 4.0-11.0 RBC 4.26 L 4.6-6.2 HGB 11.2 L 13.5-17.9 HCT 35.4 L 41-54 MCV 83.1 80-100 MCH 26.3 L 27-33 MCHC 31.6 L 32.0-37.5 PLT 345 150-400 MPV 9.4 7.4-10.4 RDW 15.0 H 11.5-14.5 Aug 28, 2022 10:51 AM [facility] VIT D 25-OH,TOTAL Specimen Type: SERUM No comment entered. Ordering Provider: VIPUL CRANE Report Released Date/Time: Aug 15, 2022 10:31 AM Reporting Lab: [facility] [address] Performing Lab: [facility] [address] VIT D 25-OH,TOTAL 58 H 12-50 Aug 28, 2022 10:51 AM [facility] TSH W/REFLEX TO FREE T4 Specimen Type: PLASMA No comment entered. Ordering Provider: VIPUL CRANE Report Released Date/Time: Aug 15, 2022 10:30 AM Reporting Lab: [facility] [address] Performing Lab: [facility] [address] TSH 2.66 0.35-4.94 Aug 28, 2022 10:51 AM [facility] IRON GROUP Specimen Type: SERUM No comment entered. Ordering Provider: VIPUL CRANE Report Released Date/Time: Aug 15, 2022 10:30 AM Reporting Lab: [facility] [address] Performing Lab: [facility] [address] IRON 29 L 65-175 TIBC,CALCULA ASCENCION 399 250-425 FERRITIN 19.7 L 21.8-274.7 IRON SATURATION 7 L 20-50 TRANSFERRIN 319 163-382 Aug 15, 2022 09:38 AM [facility] MICROALBUMIN/CREATININE RATIO URINE Specimen Type: URINE No comment entered. Ordering Provider: VIPUL CRANE Report Released Date/Time: Aug 15, 2022 09:10 AM Reporting Lab: [facility] [address] Performing Lab: [facility] [address] CREATININE,U R RANDOM 97.8 58.0-161.0 ALB/CREAT RATIO,UR 24.7 <29.9 MICROALBUMIN ,UR 24.2 <29.9 Social History: Smoking Status (Most current) and Tobacco Use (All prior to encounter date) This section includes the most current, and the historical, smoking and tobacco- related health factors from the [facility] where the Encounter took place. Current Smoking Status This section includes the most current smoking, or tobacco-related health factor, from the [facility] facility where the Encounter took place. Date/Time Current Smoking Status Comment Facil ity Aug 15, 2022 09:00 AM VA-TOBACCO FORMER USER [facility] Tobacco Use History This section includes a history of the smoking, or tobacco-related health factors, that were collected on or before the date of the Encounter. The data comes from the [facility] facility where the Encounter took place. Date/Time Smoking Status/Tobacco Use Comment F acility Aug 15, 2022 09:00 AM VA-TOBACCO QUIT 15 YRS OR MORE [facility] Aug 21, 2021 01:00 PM VA-TOBACCO FORMER USER [facility] Aug 21, 2021 01:00 PM VA-TOBACCO QUIT 15 YRS OR MORE [facility] Jul 09, 2018 08:58 AM VA-TOBACCO FORMER USER [facility] Jul 09, 2018 08:58 AM VA-TOBACCO QUIT 15 YRS OR MORE [facility] Jul 18, 2017 09:58 AM FORMER TOBACCO USER 7Y OR GREATE R [facility] Aug 14, 2016 10:59 AM FORMER TOBACCO USER 7Y OR GREATE R [facility] Jun 29, 2015 02:03 PM FORMER TOBACCO USER 7Y OR GREATE R [facility] Jan 06, 2014 03:04 PM FORMER TOBACCO USER 7Y OR GREATE R [facility] Jan 04, 2012 08:36 AM FORMER TOBACCO USER 7Y OR GREATE R [facility] Radiology Reports: +/- 30 days [...] the Encounter. The data comes from all [facility] treatment facilities. Date/Time Radiology Report Provider Source Sep 28, 2022 08:55 AM ESOPHAGRAM VIDEO S WALLOW: JUAN THOMPSON [id number] -1945 M Exm Date: SEP 28, 2022@08:55 Req Phys: VIPUL CRANE Loc: [facility] APACT L RES 03 WH 4F (Req' Img Loc: MAIN X-RAY Service: Unknown (Case [id number] COMPLETE) ESOPHAGRAM VIDEO SWALLOW (RAD Detailed) CPT:74269 Contrast Media : Barium Reason for Study: dysphagia Clinical History: [place] IS NOT under investigation for COVID-19 or [...] 28, 2022 Date Verified: SEP 28, 2022 Change Control Coordinator E-Sig:/ES/VALENTINA HARVEY MD Report: EXAMINATION: ESOPHAGRAM VIDEO [...] Primary Interpreting Staff: VALENTINA HARVEY MD, RADIOLOGIST (Change Control Coordinator) Primary Interpreting Resident: MARE ROMERO MD, UG DESIGNER /VALENTINA CHAMPAGNE [facility] Aug 28, 2022 12:35 PM HIP LEFT 2 VIEWS W /PELVIS: JUAN THOMPSON [id number] -1945 M Ex Date: AUG 28, 2022@12:35 Req Phys: VIPUL CRANE Loc: [facility] APACT L RES 03 WH 4F (Req' Img Loc: MAIN X-RAY Service: Unknown (Case [id number] COMPLETE) HIP LEFT 2 VIEWS W/PELVIS (RAD Detailed) CPT:20689 Proc Modifiers : LEFT Reason for Study: [...] 28, 2022 Date Verified: AUG 28, 2022 Change Control Coordinator E-Sig:/ES/LYNNE MARTÍNEZ DO Report: EXAMINATION: HIP LEFT [...] Primary Interpreting Staff: LYNNE MARTÍNEZ DO, RADIOLOGIST (Change Control Coordinator) /DDS LYNNE MARTÍNEZ [facility] Encounter Notes: All associated encounter notes This section contains the clinical notes associated to the Encounter. Date/Time Encounter Note(s) Provider Source Sep 10, 2022 09:53 AM NO SHOW NOTE: LOCAL TITLE: NO SHOW/CANCELLATION CLINIC NOTE STANDARD TITLE: NO SHOW NOTE DATE OF NOTE: SEP 10, 2022@09:53 ENTRY DATE: SEP 10, 2022@09:53:40 AUTHOR: CLEMENTE POOLE EXP COSIGNER: URGENCY: STATUS: COMPLETED [place] not seen for scheduled appointment due to: No Show Patient did not present for swallow study. No show letter sent. Appointment Rescheduled: Per [facility] policy Please review patient chart and medications for renewal needs (if appropriate). /pablo/ CLEMENTE POOLE M.S., CCC-ELECTRONIC SYSTEMS SECURITY ASSESSMENT, [employer]-S SPEECH-LANGUAGE PATHOLOGIST Signed: 09/10/2022 09:54 CLEMENTE POOLE [facility]
--- OUTSIDE RECORDS SUMMARY | 2023-08-13 12:27 | XMS_ITS | Encounter Summary ---
Author Name [facility] Organization [facility] Address [address] [place] [address] Support Name Relationship Address Phone SIRIA THOMPSON Next of Kin [address] [place], [place] [id number] SIRIA THOMPSON Emergency Contact [address] [place] [phone] NATHALIE DING Emergency Contact Unknown Insurance Providers: [...] PART A Sep 26, 2012 PART A [id number] [facility] [phone] JUAN THOMPSON JR PATIENT MEDICARE (WNR) MEDICARE (M) PART B Sep 26, 2012 PART B [id number] [phone] JUAN THOMPSON JR PATIENT Selected Encounter This section includes the information on record at [place] for the Encounter. Date/Time Encounter Type Encounter Description Reason Provider Source Sep 07, 2022 11:35 AM Outpatient Encounter COMMUNITY CARE CONSULT SHEYLA JAMES Encounter Template Text not used by [place] Plan of Treatment: Future Appointments (+ 6 [...] 20 appointments. The data comes from all [place] treatment [facility]. Appointment Date/Time Appointment Type Appointme nt Facility Name Sep 10, 2022 08:00 AM AMBULATORY - NONE [facility] Sep 10, 2022 08:30 AM AMBULATORY - REHAB MEDICIN E [facility] Sep 10, 2022 11:00 AM AMBULATORY - NONE [facility] Sep 11, 2022 10:30 AM AMBULATORY - MEDICINE [facility] Sep 11, 2022 11:45 AM AMBULATORY - NONE [facility] Sep 28, 2022 08:30 AM AMBULATORY - NONE [facility] Sep 28, 2022 09:00 AM AMBULATORY - NONE [facility] Sep 28, 2022 09:30 AM AMBULATORY - REHAB MEDICIN E [facility] Oct 01, 2022 07:00 AM AMBULATORY - NONE [facility] Oct 01, 2022 07:15 AM AMBULATORY - NONE [facility] Nov 06, 2022 10:00 AM AMBULATORY - MEDICINE [facility] Nov 06, 2022 12:45 PM AMBULATORY - NONE [facility] Nov 19, 2022 11:00 AM AMBULATORY - PSYCHIATRY [facility] November 27, 2022 01:15 PM AMBULATORY - NONE [facility] Dec 28, 2022 10:30 AM AMBULATORY - MEDICINE [facility] Dec 31, 2022 09:00 AM AMBULATORY - PSYCHIATRY [facility] Jan 16, 2023 10:00 AM AMBULATORY - PSYCHIATRY [facility] Jan 17, 2023 10:00 AM AMBULATORY - PSYCHIATRY [facility] Feb 13, 2023 01:45 PM AMBULATORY - SURGERY [facility] Feb 13, 2023 03:15 PM AMBULATORY - NONE [facility] Lab Results: +/- 30 days of the encounter This section includes the Chemistry and Hematology Lab Results on record with [place] for the patient. Radiology Reports and Pathology Reports are provided separately, in subsequent sections. Lab Results This section contains the Chemistry/Hematology Results that were resulted 30 days before or 30 daysafter the date of the Encounter. Date/Time Source Result Type Result - Unit Interpretation Reference Range Comment Sep 11, 2022 12:52 PM [facility] VITAMIN A Specimen Type: SERUM Comment: Vitamin supplementation within 24 hours prior to blood draw may affect the accuracy of the results. This test was developed and its analytical performance characteristics have been determined by [facility] [place]. It has not been cleared or approved by the U.S. Food and Drug Administration. This assay has been validated pursuant to the CLIA regulations and is used for clinical purposes. Test Performed by [facility], [facility], [address] [place] [address] Devante Meyer M.D., Ph.D., Director of Laboratories , CLIA [id number] Ordering Provider: ABBY COHEN Report Released Date/Time: Sep 11, 2022 11:28 AM Reporting Lab: [facility] [id number] Performing Lab: [address] VITAMIN A 58 [id number] Sep 11, 2022 12:52 PM [facility] PTH-N-TACT Specimen Type: PLASMA No comment entered. Ordering Provider: ABBY COHEN Report Released Date/Time: Sep 11, 2022 11:28 AM Reporting Lab: [facility] [id number] Performing Lab: [facility] [address] PTH-N-TACT 62.1 8.7-77.1 Aug 28, 2022 10:51 AM [facility] LIPID PANEL,NON-FASTING Specimen Type: PLASMA No comment entered. Ordering Provider: VIPUL CRANE Report Released Date/Time: Aug 15, 2022 09:14 AM Reporting Lab: [facility] [id number] Performing Lab: [facility] [id number] CHOLESTEROL 115 <199 .HDL 43 >40 LDL CALCULATION 58 <99 VLDL CALCULATION 14 <29 NON HDL CHOLESTEROL 72 <129 TRIG(NON FASTING) 70 <149 Aug 28, 2022 10:51 AM [facility] HEMOGLOBIN A1C Specimen Type: BLOOD Comment: [...] Aug 15, 2022 09:14 AM Reporting Lab: [facility] [id number] Performing Lab: [facility] [phone] HEMOGLOBIN A1C 8.4 H 4.0-6.0 Aug 28, 2022 10:51 AM [facility] BASIC METABOLIC PANEL+MG Specimen Type: PLASMA No comment entered. Ordering Provider: INGRID BURLESON Report Released Date/Time: Jul 11, 2022 01:04 PM Reporting Lab: [facility] [phone] Performing Lab: [facility] [id number] CREATININE 1.1 0.7-1.2 UREA NITROGEN 20 8-26 GLUCOSE 170 H 70-100 SODIUM 141 136-145 POTASSIUM 4.2 3.5-5.1 CHLORIDE 103 98-107 CO2 31 H 22-29 CALCIUM 9.4 8.4-10.2 MAGNESIUM 1.5 L 1.6-2.6 ANION GAP 7 5-15 CREAT EGFR(CKD-EPI ) 70 >60 Aug 28, 2022 10:51 AM [facility] FOLATE Specimen Type: SERUM No comment entered. Ordering Provider: VIPUL CARNE Report Released Date/Time: Aug 15, 2022 10:30 AM Reporting Lab: [facility] [id number] Performing Lab: [facility] [phone] FOLATE 16.2 >7.0 Aug 28, 2022 10:51 AM [facility] B 12 Specimen Type: SERUM No comment entered. Ordering Provider: VIPUL CRANE Report Released Date/Time: Aug 15, 2022 10:30 AM Reporting Lab: [facility] [id number] Performing Lab: [facility] [id number] B 12 934 H 213-816 Aug 28, 2022 10:51 AM [facility] TSH W/REFLEX TO FREE T4 Specimen Type: PLASMA No comment entered. Ordering Provider: VIPUL CRANE Report Released Date/Time: Aug 15, 2022 10:30 AM Reporting Lab: [facility] [id number] Performing Lab: [facility] [address] TSH 2.66 0.35-4.94 Aug 28, 2022 10:51 AM [facility] VIT D 25-OH,TOTAL Specimen Type: SERUM No comment entered. Ordering Provider: VIPUL CRANE Report Released Date/Time: Aug 15, 2022 10:31 AM Reporting Lab: [facility] [phone] Performing Lab: [facility] [address] VIT D 25-OH,TOTAL 58 H 12-50 Aug 28, 2022 10:51 AM [facility] CBC Specimen Type: BLOOD No comment entered. Ordering Provider: VIPUL CRANE Report Released Date/Time: Aug 15, 2022 09:14 AM Reporting Lab: [facility] [phone] Performing Lab: [facility] [id number] WBC 8.61 4.0-11.0 RBC 4.26 L 4.6-6.2 HGB 11.2 L 13.5-17.9 HCT 35.4 L 41-54 MCV 83.1 80-100 MCH 26.3 L 27-33 MCHC 31.6 L 32.0-37.5 PLT 345 150-400 MPV 9.4 7.4-10.4 RDW 15.0 H 11.5-14.5 Aug 28, 2022 10:51 AM [facility] IRON GROUP Specimen Type: SERUM No comment entered. Ordering Provider: VIPUL CRANE Report Released Date/Time: Aug 15, 2022 10:30 AM Reporting Lab: [facility] [phone] Performing Lab: [facility] [address] IRON 29 L 65-175 TIBC,CALCULA ASCENCION 399 250-425 FERRITIN 19.7 L 21.8-274.7 IRON SATURATION 7 L 20-50 TRANSFERRIN 319 163-382 Aug 15, 2022 09:38 AM [facility] MICROALBUMIN/CREATININE RATIO URINE Specimen Type: URINE No comment entered. Ordering Provider: VIPUL CRANE Report Released Date/Time: Aug 15, 2022 09:10 AM Reporting Lab: [facility] [address] Performing Lab: [facility] [address] CREATININE,U R RANDOM 97.8 58.0-161.0 ALB/CREAT RATIO,UR 24.7 <29.9 MICROALBUMIN ,UR 24.2 <29.9 Social History: Smoking Status (Most current) and Tobacco Use (All prior to encounter date) This section includes the most current, and the historical, smoking and tobacco- related health factors from the [facility] where the Encounter took place. Current Smoking Status This section includes the most current smoking, or tobacco-related health factor, from the [place] facility where the Encounter took place. Date/Time Current Smoking Status Comment Facil ity Aug 15, 2022 09:00 AM VA-TOBACCO FORMER USER [facility] Tobacco Use History This section includes a history of the smoking, or tobacco-related health factors, that were collected on or before the date of the Encounter. The data comes from the [place] facility where the Encounter took place. Date/Time Smoking Status/Tobacco Use Comment F acility Aug 15, 2022 09:00 AM VA-TOBACCO QUIT 15 YRS OR MORE [facility] Aug 21, 2021 01:00 PM VA-TOBACCO FORMER USER [facility] Aug 21, 2021 01:00 PM VA-TOBACCO QUIT 15 YRS OR MORE [facility] Jul 09, 2018 08:58 AM VA-TOBACCO FORMER USER [facility] Jul 09, 2018 08:58 AM VA-TOBACCO QUIT 15 YRS OR MORE [facility] Jul 18, 2017 09:58 AM FORMER TOBACCO USER 7Y OR GREATE R [facility] Aug 14, 2016 10:59 AM FORMER TOBACCO USER 7Y OR GREATE R [facility] Jun 29, 2015 02:03 PM FORMER TOBACCO USER 7Y OR GREATE R [facility] Jan 06, 2014 03:04 PM FORMER TOBACCO USER 7Y OR GREATE R [facility] Jan 04, 2012 08:36 AM FORMER TOBACCO USER 7Y OR GREATE R [facility] Radiology Reports: +/- 30 days of [...] the Encounter. The data comes from all [place] treatment facilities. Date/Time Radiology Report Provider Source Sep 28, 2022 08:55 AM ESOPHAGRAM VIDEO S WALLMARTY: JUAN THOMPSON [id number] -[id number] M Exm Date: SEP 28, 2022@08:55 Req Phys: VIPUL CRANE Loc: [facility] APACT L RES 03 WH 4F (Req' Img Loc: MAIN X-RAY Service: Unknown (Case [id number] COMPLETE) ESOPHAGRAM VIDEO SWALLOW (RAD Detailed) CPT:67158 Contrast Media : Barium Reason for Study: dysphagia Clinical History: [place] IS NOT under investigation for COVID-19 or [...] 28, 2022 Date Verified: SEP 28, 2022 Clinical Nursing Professor E-Sig:/ES/VALENTINA LEON MD Report: EXAMINATION: ESOPHAGRAM VIDEO [...] Primary Interpreting Staff: VALENTINA LEON MD, RADIOLOGIST (Clinical Nursing Professor) Primary Interpreting Resident: MARE ROMERO MD, HYDROELECTRIC COMPONENT MACHINIST /VALENTINA CHAMPAGNE [facility] Aug 28, 2022 12:35 PM HIP LEFT 2 VIEWS W /PELVIS: JUAN THOMPSON [id number] -[id number] M Ex Date: AUG 28, 2022@12:35 Req Phys: VIPUL CRANE Loc: [facility] APACT L RES 03 WH 4F (Req' Img Loc: MAIN X-RAY Service: Unknown (Case [id number] COMPLETE) HIP LEFT 2 VIEWS W/PELVIS (RAD Detailed) CPT:77580 Proc Modifiers : LEFT Reason for Study: Left hip pain Clinical History: [place] IS NOT under investigation for COVID-19 or is COVID-19 negative Hip Pain Responsible provider name and phone number to notify for critical findings if other than user placing the order and pager listed below: User placing orders pager: LAST CREATININE 1.1 (07/11/22) Report Status: Verified Date Reported: AUG 28, 2022 Date Verified: AUG 28, 2022 Clinical Nursing Professor E-Sig:/ES/LYNNE MARTÍNEZ DO Report: EXAMINATION: HIP LEFT [...] Primary Interpreting Staff: LYNNE MARTÍNEZ DO, RADIOLOGIST (Clinical Nursing Professor) /DDS LYNNE MARTÍNEZ [facility] Encounter Notes: All associated encounter notes This section contains the clinical notes associated to the Encounter. Date/Time Encounter Note(s) Provider Source Sep 07, 2022 11:35 AM NONVA NOTE: LOCAL TITLE: COMMUNITY CARE-CARE COORDINATION PLAN NOTE STANDARD TITLE: NONVA NOTE DATE OF NOTE: SEP 07, 2022@11:35 ENTRY DATE: SEP 07, 2022@11:35:37 AUTHOR: SHEYLA JAMES EXP COSIGNER: URGENCY: STATUS: COMPLETED Community Care Consult: COMMUNITY CARE-OPHTHALMOLOGY Consult No: [id number] Chief Complaint: Cataracts, glaucoma suspect Level of Care Coordination Complex/Chronic Care Coordination was determined from: Chart Review Facility Community Care Office Contact Care Coordination Point of Contact: Sheyla PONCE RN Phone Number: [phone] Services: Moderate Care Coordination Services Case Management, if appropriate Direct communications with interdisciplinary team Plan: [place] assessed as needing complex care coordination which may include case management if appropriate, direct communication with interdisciplinary team and/or [place], chronic disease management if appropriate. and/or caregiver will be provided direct contact information for community care department via letter after has been opted in. Assist with any follow up needs or additional requests for services. CC AMSA please proceed with scheduling process /es/ SHEYLA JAMES RN MARKETING AND DEVELOPMENT COORDINATOR OLERICULTURE PROFESSOR Signed: 09/07/2022 11:37 SHEYLA JAMES [facility]
--- OUTSIDE RECORDS SUMMARY | 2023-08-13 12:27 | XMS_ITS | Encounter Summary ---
Author Name [facility] Organization [facility] Address [address] [place] [address] Support Name Relationship Address Phone DONNA SIRIA Next of Kin [address] [place], [place] [id number] SIRIA THOMPSON Emergency Contact [address] [place] [phone] NATHALIE CLINE Emergency Contact Unknown [phone] Insurance Providers: All historical and current Section [...] PART A Sep 26, 2012 PART A [id number] [facility] [phone] JUAN THOMPSON JR PATIENT MEDICARE (WNR) MEDICARE (M) PART B Sep 26, 2012 PART B [id number] [phone] JUAN THOMPSON JR PATIENT Selected Encounter This section includes the information on record at [place] for the Encounter. Date/Time Encounter Type Encounter Description Reason Pro vider Source Aug 29, 2022 09:33 AM Outpatient Encounter TELEPHONE TRIAGE IHE Encounter Template Text not used by [...] The data comes from all [place] [facility]. Appointment Date/Time Appointment Type Appointme nt Facility Name Sep 03, 2022 05:00 PM AMBULATORY - REHAB MEDICIN E [facility] Sep 10, 2022 08:00 AM AMBULATORY - NONE [facility] Sep 10, 2022 08:30 AM AMBULATORY - REHAB MEDICIN E [facility] Sep 10, 2022 11:00 AM AMBULATORY - NONE [facility] Sep 11, 2022 10:30 AM AM[facility]UL[facility]ORY [place]ICINE [facility] Sep 11, 2022 11:45 AM AMBULATORY - NONE [facility] Sep 28, 2022 08:30 AM AMBULATORY - NONE [facility] Sep 28, 2022 09:00 AM AMBULATORY - NONE [facility] Sep 28, 2022 09:30 AM AMBULATORY - REHAB MEDICIN E [facility] Oct 01, 2022 07:00 AM AMBULATORY - NONE [facility] Oct 01, 2022 07:15 AM AMBULATORY - NONE [facility] Nov 06, 2022 10:00 AM AMBULATORY - MEDICINE [facility] Nov 06, 2022 12:45 PM AMBULATORY - NONE [facility] Nov 19, 2022 11:00 AM AMBULAT[facility] [place]AT[place] [facility] November 27, 2022 01:15 PM AMBULATORY - NONE [facility] Dec 28, 2022 10:30 AM AM[facility]UL[facility]ORY - MEDICINE [facility] Dec 31, 2022 09:00 AM AMBULATORY - PS[facility]CHIATRY [place] [facility] Jan 16, 2023 10:00 AM AMBULATORY - PS[facility]CHIATRY [place] [facility] Jan 17, 2023 10:00 AM AMBULATORY - PS[facility]CHIATRY [place] [facility] Feb 13, 2023 01:45 PM AMBULATORY - SURGERY [facility] Lab Results: +/- 30 [...] Range Comment Sep 11, 2022 12:52 PM [facility] VITAMIN A Specimen Type: SERUM Comment: Vitamin supplementation within 24 hours prior to blood draw may affect the accuracy of the results. This test was developed and its analytical performance characteristics have been determined by [employer] [place], [place]. It has not been cleared or approved by the U.S. Food and Drug Administration. This assay has been validated pursuant to the CLIA regulations and is used for clinical purposes. Test Performed by [facility], [employer] [facility], [address] [place] [address] Devante Meyer M.D., Ph.D., Director of Laboratories , CLIA [id number] Ordering Provider: ABBY COHEN Report Released Date/Time: Sep 11, 2022 11:28 AM Reporting Lab: [facility] [id number] Performing Lab: [address] VITAMIN A 58 38-98 Sep 11, 2022 12:52 PM [facility] PTH-N-TACT Specimen Type: PLASMA No comment entered. Ordering Provider: ABBY COHEN Report Released Date/Time: Sep 11, 2022 11:28 AM Reporting Lab: [facility] [id number] Performing Lab: [facility] [address] PTH-N-TACT 62.1 8.7-77.1 Aug 28, 2022 10:51 AM [facility] LIPID PANEL,NON-FASTING Specimen Type: PLASMA No comment entered. Ordering Provider: VIPUL CRANE Report Released Date/Time: Aug 15, 2022 09:14 AM Reporting Lab: [facility] [id number] Performing Lab: [facility] [address] CHOLESTEROL 115 <199 .HDL 43 >40 LDL CALCULATION 58 <99 VLDL CALCULATION 14 <29 NON HDL CHOLESTEROL 72 <129 TRIG(NON FASTING) 70 <149 Aug 28, 2022 10:51 AM [facility] HEMOGLOBIN A1C Specimen Type: [...] Aug 15, 2022 09:14 AM Reporting Lab: [facility] [id number] Performing Lab: [facility] [phone] HEMOGLOBIN A1C 8.4 H 4.0-6.0 Aug 28, 2022 10:51 AM [facility] B 12 Specimen Type: SERUM No comment entered. Ordering Provider: VIPUL CRANE Report Released Date/Time: Aug 15, 2022 10:30 AM Reporting Lab: [facility] [id number] Performing Lab: [facility] [address] B 12 934 H [phone] Aug 28, 2022 10:51 AM [facility] FOLATE Specimen Type: SERUM No comment entered. Ordering Provider: VIPUL CRANE Report Released Date/Time: Aug 15, 2022 10:30 AM Reporting Lab: [facility] [address] Performing Lab: [facility] [address] FOLATE 16.2 >7.0 Aug 28, 2022 10:51 AM [facility] CBC Specimen Type: BLOOD No comment entered. Ordering Provider: VIPUL CRANE Report Released Date/Time: Aug 15, 2022 09:14 AM Reporting Lab: [facility] [address] Performing Lab: [facility] [address] WBC 8.61 4.0-11.0 RBC 4.26 L 4.6-6.2 HGB 11.2 L 13.5-17.9 HCT 35.4 L 41-54 MCV 83.1 80-100 MCH 26.3 L 27-33 MCHC 31.6 L 32.0-37.5 PLT 345 150-400 MPV 9.4 7.4-10.4 RDW 15.0 H 11.5-14.5 Aug 28, 2022 10:51 AM [facility] TSH W/REFLEX TO FREE T4 Specimen Type: PLASMA No comment entered. Ordering Provider: VIPUL CRANE Report Released Date/Time: Aug 15, 2022 10:30 AM Reporting Lab: [facility] [id number] Performing Lab: [facility] [address] TSH 2.66 0.35-4.94 Aug 28, 2022 10:51 AM [facility] VIT D 25-OH,TOTAL Specimen Type: SERUM No comment entered. Ordering Provider: VIPUL CRANE Report Released Date/Time: Aug 15, 2022 10:31 AM Reporting Lab: [facility] [address] Performing Lab: [facility] [address] VIT D 25-OH,TOTAL 58 H 12-50 Aug 28, 2022 10:51 AM [facility] BASIC METABOLIC PANEL+MG Specimen Type: PLASMA No comment entered. Ordering Provider: INGRID BURLESON Report Released Date/Time: Jul 11, 2022 01:04 PM Reporting Lab: [facility] [address] Performing Lab: [facility] [address] CREATININE 1.1 0.7-1.2 UREA NITROGEN 20 8-26 GLUCOSE 170 H 70-100 SODIUM 141 136-145 POTASSIUM 4.2 3.5-5.1 CHLORIDE 103 98-107 CO2 31 H 22-29 CALCIUM 9.4 8.4-10.2 MAGNESIUM 1.5 L 1.6-2.6 ANION GAP 7 5-15 CREAT EGFR(CKD-EPI ) 70 >60 Aug 28, 2022 10:51 AM [facility] IRON GROUP Specimen Type: SERUM No comment entered. Ordering Provider: VIPUL CRANE Report Released Date/Time: Aug 15, 2022 10:30 AM Reporting Lab: [facility] [address] Performing Lab: [facility] [address] IRON 29 L 65-175 TIBC,CALCULA ASCENCION 399 250-425 FERRITIN 19.7 L 21.8-274.7 IRON SATURATION 7 L 20-50 TRANSFERRIN 319 163-382 Aug 15, 2022 09:38 AM [facility] MICROALBUMIN/CREATININE RATIO URINE Specimen Type: URINE No comment entered. Ordering Provider: VIPUL CRANE Report Released Date/Time: Aug 15, 2022 09:10 AM Reporting Lab: [facility] [address] Performing Lab: [facility] [address] CREATININE,U R RANDOM 97.8 58.0-161.0 ALB/CREAT RATIO,UR 24.7 <29.9 MICROALBUMIN ,UR 24.2 <29.9 Social History: Smoking Status (Most current) and Tobacco Use (All prior to encounter date) This section includes the most current, and the historical, smoking and tobacco- related health factors from the [facility] where the Encounter took place. Current Smoking Status This section includes the most current smoking, or tobacco-related health factor, from the [place] facility where the Encounter took place. Date/Time Current Smoking Status Comment Facil ity Aug 15, 2022 09:00 AM VA-TOBACCO FORMER USER [facility] Tobacco Use History This section includes a history of the smoking, or tobacco-related health factors, that were collected on or before the date of the Encounter. The data comes from the [place] facility where the Encounter took place. Date/Time Smoking Status/Tobacco Use Comment F acility Aug 15, 2022 09:00 AM VA-TOBACCO QUIT 15 YRS OR MORE [facility] Aug 21, 2021 01:00 PM VA-TOBACCO FORMER USER [facility] Aug 21, 2021 01:00 PM VA-TOBACCO QUIT 15 YRS OR MORE [facility] Jul 09, 2018 08:58 AM VA-TOBACCO FORMER USER [facility] Jul 09, 2018 08:58 AM VA-TOBACCO QUIT 15 YRS OR MORE [facility] Jul 18, 2017 09:58 AM FORMER TOBACCO USER 7Y OR GREATE R [facility] Aug 14, 2016 10:59 AM FORMER TOBACCO USER 7Y OR GREATE R [facility] Jun 29, 2015 02:03 PM FORMER TOBACCO USER 7Y OR GREATE R [facility] Jan 06, 2014 03:04 PM FORMER TOBACCO USER 7Y OR GREATE R [facility] Jan 04, 2012 08:36 AM FORMER TOBACCO USER 7Y OR GREATE R [facility] Radiology Reports: +/- 30 [...] AM ESOPHAGRAM VIDEO S WALLMARTY: JUAN THOMPSON [id number] -1945 M Exm Date: SEP 28, 2022@08:55 Req Phys: VIPUL CRANE Loc: [facility] APACT L RES 03 WH 4F (Req' Img Loc: MAIN X-RAY Service: Unknown (Case [id number] COMPLETE) ESOPHAGRAM VIDEO SWALLOW (RAD Detailed) CPT:76660 Contrast Media : Barium Reason for Study: [...] 28, 2022 Date Verified: SEP 28, 2022 Weight And Test Bar Clerk E-Sig:/ES/VALENTINA HARVEY MD Report: EXAMINATION: ESOPHAGRAM VIDEO [...] Primary Interpreting Staff: VALENTINA HARVEY MD, RADIOLOGIST (Weight And Test Bar Clerk) Primary Interpreting Resident: MARE ROMERO MD, METAL SMELTER /VALENTINA CHAMPAGNE [facility] Aug 28, 2022 12:35 PM HIP LEFT 2 VIEWS W /PELVIS: JUAN THOMPSON [id number] -1945 M Exm Date: AUG 28, 2022@12:35 Req Phys: VIPUL CRANE Loc: [facility] APACT L RES 03 WH 4F (Req' Img Loc: MAIN X-RAY Service: Unknown (Case [id number] COMPLETE) HIP LEFT 2 VIEWS W/PELVIS (RAD Detailed) CPT:19093 Proc Modifiers : LEFT Reason for Study: [...] 28, 2022 Date Verified: AUG 28, 2022 Weight And Test Bar Clerk E-Sig:/ES/LYNNE MARTÍNEZ DO Report: EXAMINATION: HIP LEFT [...] Primary Interpreting Staff: LYNNE MARTÍNEZ DO, RADIOLOGIST (Weight And Test Bar Clerk) /DDS LYNNE MARTÍNEZ [facility] Encounter Notes: All associated encounter notes This section contains the clinical notes associated to the Encounter. Date/Time Encounter Note(s) Provider Source Aug 29, 2022 09:33 AM REPORT OF CONTACT: LOCAL TITLE: PATIENT CONTACT NOTE STANDARD TITLE: REPORT OF CONTACT DATE OF NOTE: AUG 29, 2022@09:33 ENTRY DATE: AUG 29, 2022@09:33:17 AUTHOR: LUCRETIA LINARES EXP COSIGNER: URGENCY: STATUS: COMPLETED PATIENT CONTACT NOTE Has [facility]orthotic referral for . Nathalie stated no new emergent symptoms. Phone number verified as correct. Nathalie's cell [phone] /pablo/ GINO LINARES ADULT NEUROLOGIST Signed: 08/29/2022 09:36 Receipt Acknowledged By: 08/29/2022 15:39 /pablo/ ANJALI RUSS RN REGISTERED NURSE 08/29/2022 ADDENDUM STATUS: COMPLETED Prosthetics order for replacement shoes and inserts placed. /pablo/ ANJALI RUSS RN REGISTERED NURSE Signed: 08/29/2022 15:39 GINO LINARES [facility]
--- OUTSIDE RECORDS SUMMARY | 2023-08-13 12:28 | XMS_ITS | Encounter Summary ---
Author Name [facility] Organization [facility] Address [address] [place] [address] Support Name Relationship Address Phone SIRIA THOMPSON Next of Kin [address] [place], [place] [id number] SIRIA THOMPSON Emergency Contact [address] [place] [phone] NATHALIE DING Emergency Contact Unknown Insurance Providers: [...] PART A Sep 26, 2012 PART A [id number] [facility] [phone] JUAN THOMPSON JR PATIENT MEDICARE (WNR) MEDICARE (M) PART B Sep 26, 2012 PART B [id number] [phone] JUAN THOMPSON JR PATIENT Selected Encounter This section includes the information on record at ME for the Encounter. Date/Time Encounter Type Encounter Description Reason Provider Source Sep 11, 2022 10:30 AM OFF/OP CNSLTJ NEW/EST MOD 40 ENDOCRINOLOGY ICD-10-CM E66.09 Other obesity due to excess calories AMANDA ALVAREZ Encounter Template Text not used by ME Assessments - Encounter Diagnoses This section includes the primary and secondary diagnoses documented for the Encounter. Date/Time Primary/Secondary Diagnosis Diagnosis Name Provider Source Sep 16, 2022 07:06 PM PRIMARY Other obesity due to excess calories RAF ALVAREZ Kayla [facility] Sep 16, 2022 07:06 PM SECONDARY Bariatric surgery status RAF ALVAREZ Kayla [facility] Sep 16, 2022 07:06 PM SECONDARY Type 2 diabetes mellitus without complications RAF ALVAREZ [facility] Plan of Treatment: Future Appointments (+ 6 months) and Future Tests (+/- 45 days) The Plan of Treatment section includes future care activities for the patient from all [facility]. This section includes future appointments and future orders which are active, pending or scheduled. Future Appointments This section includes appointments that were scheduled to occur 6 months from the date of the Encounter, up to a maximum of 20 appointments. The data comes from all [facility] facilities. Appointment Date/Time Appointment Type Appointme nt Facility Name Sep 28, 2022 08:30 AM AMBUL[facility]ORY - NONE [place] [facility] Sep 28, 2022 09:00 AM AMBULATORY - NONE [place] [facility] Sep 28, 2022 09:30 AM AMBULATORY - REHAB MEDICIN E [facility] Oct 01, 2022 07:00 AM AMBULATORY - NONE [place] [facility] Oct 01, 2022 07:15 AM AMBULATORY - NONE [place] [facility] Nov 06, 2022 10:00 AM AMBULATORY - MEDICINE [place] [facility] Nov 06, 2022 12:45 PM AMBULATORY - NONE [place] [facility] Nov 19, 2022 11:00 AM AMBULATORY - [place]CHIATRY [place] [facility] November 27, 2022 01:15 PM AMBULATORY - NONE [place] [facility] Dec 28, 2022 10:30 AM AMBULATORY - MEDICINE [place] [facility] Dec 31, 2022 09:00 AM AMBULATORY - [place]CHIATRY [place] [facility] Jan 16, 2023 10:00 AM AMBULATORY - [place]IATRY [place] [facility] Jan 17, 2023 10:00 AM AMBULATORY - [place]CHIATRY [place] [facility] Feb 13, 2023 01:45 PM AMBULATORY - SURGERY [place] [facility] Feb 13, 2023 03:15 PM AMBULATORY - NONE [place] [facility] Feb 25, 2023 09:15 AM AMBUL[place]ORY - MEDICINE [place] [facility] Feb 25, 2023 09:30 AM [place]ORY [place] MEDICINE [place] [facility] Feb 25, 2023 11:00 AM [facility]ORY [facility] [place]ICINE [place] [facility] Mar 07, 2023 08:30 AM AMBULATORY - MEDICINE [facility] Lab Results: +/- 30 days of the encounter This section includes the Chemistry and Hematology Lab Results on record with ME for the patient. Radiology Reports and Pathology Reports are provided separately, in subsequent sections. Lab Results This section contains the Chemistry/Hematology Results that were resulted 30 days before or 30 daysafter the date of the Encounter. Date/Time Source Result Type Result - Unit Interpretation Reference Range Comment Sep 11, 2022 12:52 PM [facility] VITAMIN A Specimen Type: SERUM Comment: Vitamin supplementation within 24 hours prior to blood draw may affect the accuracy of the results. This test was developed and its analytical performance characteristics have been determined by [employer] [place], [place]. It has not been cleared or approved by the U.S. Food and Drug Administration. This assay has been validated pursuant to the CLIA regulations and is used for clinical purposes. Test Performed by [facility], [employer] [facility], [address] [place] [address] Devante Meyer M.D., Ph.D., Director of Laboratories , CLIA [id number] Ordering Provider: ABBY COHEN Report Released Date/Time: Sep 11, 2022 11:28 AM Reporting Lab: [facility] [id number] Performing Lab: [address] VITAMIN A 58 [phone] Sep 11, 2022 12:52 PM [facility] PTH-N-TACT Specimen Type: PLASMA No comment entered. Ordering Provider: ABBY COHEN Report Released Date/Time: Sep 11, 2022 11:28 AM Reporting Lab: [facility] [id number] Performing Lab: [facility] [id number] PTH-N-TACT 62.1 8.7-77.1 Aug 28, 2022 10:51 AM [facility] HEMOGLOBIN A1C Specimen Type: BLOOD Comment: [...] Aug 15, 2022 09:14 AM Reporting Lab: [facility] [id number] Performing Lab: [facility] [id number] HEMOGLOBIN A1C 8.4 H 4.0-6.0 Aug 28, 2022 10:51 AM [facility] LIPID PANEL,NON-FASTING Specimen Type: PLASMA No comment entered. Ordering Provider: VIPUL CRANE Report Released Date/Time: Aug 15, 2022 09:14 AM Reporting Lab: [facility] [id number] Performing Lab: [facility] [address] CHOLESTEROL 115 <199 .HDL 43 >40 LDL CALCULATION 58 <99 VLDL CALCULATION 14 <29 NON HDL CHOLESTEROL 72 <129 TRIG(NON FASTING) 70 <149 Aug 28, 2022 10:51 AM [facility] BASIC METABOLIC PANEL+MG Specimen Type: PLASMA No comment entered. Ordering Provider: INGRID BURLESON Report Released Date/Time: Jul 11, 2022 01:04 PM Reporting Lab: [facility] [id number] Performing Lab: [facility] [address] CREATININE 1.1 0.7-1.2 UREA NITROGEN 20 8-26 GLUCOSE 170 H 70-100 SODIUM 141 136-145 POTASSIUM 4.2 3.5-5.1 CHLORIDE 103 98-107 CO2 31 H 22-29 CALCIUM 9.4 8.4-10.2 MAGNESIUM 1.5 L 1.6-2.6 ANION GAP 7 5-15 CREAT EGFR(CKD-EPI ) 70 >60 Aug 28, 2022 10:51 AM [facility] B 12 Specimen Type: SERUM No comment entered. Ordering Provider: VIPUL CRANE Report Released Date/Time: Aug 15, 2022 10:30 AM Reporting Lab: [facility] [phone] Performing Lab: [facility] [address] B 12 934 H 213-816 Aug 28, 2022 10:51 AM [facility] FOLATE Specimen Type: SERUM No comment entered. Ordering Provider: VIPUL CRANE Report Released Date/Time: Aug 15, 2022 10:30 AM Reporting Lab: [facility] [phone] Performing Lab: [facility] [address] FOLATE 16.2 >7.0 Aug 28, 2022 10:51 AM [facility] TSH W/REFLEX TO FREE T4 Specimen Type: PLASMA No comment entered. Ordering Provider: VIPUL CRANE Report Released Date/Time: Aug 15, 2022 10:30 AM Reporting Lab: [facility] [address] Performing Lab: [facility] [address] TSH 2.66 0.35-4.94 Aug 28, 2022 10:51 AM [facility] VIT D 25-OH,TOTAL Specimen Type: SERUM No comment entered. Ordering Provider: VIPUL CRANE Report Released Date/Time: Aug 15, 2022 10:31 AM Reporting Lab: [facility] [phone] Performing Lab: [facility] [address] VIT D 25-OH,TOTAL 58 H 12-50 Aug 28, 2022 10:51 AM [facility] CBC Specimen Type: BLOOD No comment entered. Ordering Provider: VIPUL CRANE Report Released Date/Time: Aug 15, 2022 09:14 AM Reporting Lab: [facility] [phone] Performing Lab: [facility] [address] WBC 8.61 4.0-11.0 RBC 4.26 L 4.6-6.2 HGB 11.2 L 13.5-17.9 HCT 35.4 L 41-54 MCV 83.1 80-100 MCH 26.3 L 27-33 MCHC 31.6 L 32.0-37.5 PLT 345 150-400 MPV 9.4 7.4-10.4 RDW 15.0 H 11.5-14.5 Aug 28, 2022 10:51 AM [facility] IRON GROUP Specimen Type: SERUM No comment entered. Ordering Provider: VIPUL CRANE Report Released Date/Time: Aug 15, 2022 10:30 AM Reporting Lab: [facility] [address] Performing Lab: [facility] [id number] IRON 29 L 65-175 TIBC,CALCULA ASCENCION 399 250-425 FERRITIN 19.7 L 21.8-274.7 IRON SATURATION 7 L 20-50 TRANSFERRIN 319 163-382 Aug 15, 2022 09:38 AM [facility] MICROALBUMIN/CREATININE RATIO URINE Specimen Type: URINE No comment entered. Ordering Provider: VIPUL CRANE Report Released Date/Time: Aug 15, 2022 09:10 AM Reporting Lab: [facility] [phone] Performing Lab: [facility] [address] CREATININE,U R RANDOM 97.8 58.0-161.0 ALB/CREAT RATIO,UR 24.7 <29.9 MICROALBUMIN ,UR 24.2 <29.9 Vital Signs: All taken on the encounter date This section contains inpatient and outpatient Vital Signs collected on the date of the Encounter. Date/Time Temperature Pulse Blood Pressure Respiratory Rate SP02 Pain Height Weight Body Mass Index Source Sep 11, 2022 10:32 AM 144/85 mm[Hg] [facility] Sep 11, 2022 10:27 AM 97.3 F 70 /min 166/98 mm[Hg] 18 /min 97 % 222.5 lb 34 [facility] Social History: Smoking Status (Most current) and Tobacco Use (All prior to encounter date) This section includes the most current, and the historical, smoking and tobacco- related health factors from the ME facility where the Encounter took place. Current Smoking Status This section includes the most current smoking, or tobacco-related health factor, from the ME facility where the Encounter took place. Date/Time Current Smoking Status Comment Aj woods Aug 15, 2022 09:00 AM VA-TOBACCO FORMER USER [facility] Tobacco Use History This section includes a history of the smoking, or tobacco-related health factors, that were collected on or before the date of the Encounter. The data comes from the ME facility where the Encounter took place. Date/Time Smoking Status/Tobacco Use Comment F accelia Aug 15, 2022 09:00 AM ME-TOBACCO QUIT 15 YRS OR MORE [facility] Aug 21, 2021 01:00 PM VA-TOBACCO FORMER USER [facility] Aug 21, 2021 01:00 PM VA-TOBACCO QUIT 15 YRS OR MORE [facility] Jul 09, 2018 08:58 AM VA-TOBACCO FORMER USER [facility] Jul 09, 2018 08:58 AM VA-TOBACCO QUIT 15 YRS OR MORE [facility] Jul 18, 2017 09:58 AM FORMER TOBACCO USER 7Y OR GREATE R [facility] Aug 14, 2016 10:59 AM FORMER TOBACCO USER 7Y OR GREATE R [facility] Jun 29, 2015 02:03 PM FORMER TOBACCO USER 7Y OR GREATE R [facility] Jan 06, 2014 03:04 PM FORMER TOBACCO USER 7Y OR GREATE R [facility] Jan 04, 2012 08:36 AM FORMER TOBACCO USER 7Y OR GREATE R [facility] Radiology Reports: +/- 30 days of [...] the Encounter. The data comes from all [facility] facilities. Date/Time Radiology Report Provider Source Sep 28, 2022 08:55 AM ESOPHAGRAM VIDEO S WALLOW: JUAN THOMPSON [id number] -[id number] M Ex Date: SEP 28, 2022@08:55 Req Phys: VIPUL CRANE Loc: [facility] APACT L RES 03 WH 4F (Req' Img Loc: MAIN X-RAY Service: Unknown (Case [id number] COMPLETE) ESOPHAGRAM VIDEO SWALLOW (RAD Detailed) CPT:01152 Contrast Media : Barium Reason for Study: dysphagia Clinical History: IS NOT under investigation for COVID-19 or is COVID-19 negative Ongoing for several years. Had a Nora-en-Y and was previously a villegas and smoker (quit 25+ years ago) Responsible provider name and phone number to notify for critical findings if other than user placing the order and pager listed below: User placing orders pager: LAST CREATININE 1.1 (07/11/22) Report Status: Verified Date Reported: SEP 28, 2022 Date Verified: SEP 28, 2022 Lawn Technician E-Sig:/ES/VALENTINA LEON MD Report: EXAMINATION: ESOPHAGRAM VIDEO SWALLOW 09/28/2022 9:43 AM Clinical Indication: Dysphagia. Ongoing for several years. Had a Nora-en-Y and was previously a villegas and smoker [...] Primary Interpreting Staff: VALENTINA LEON MD, RADIOLOGIST (Lawn Technician) Primary Interpreting Resident: MARE ROMERO MD, TOP BOTTOM ATTACHING MACHINE OPERATOR /VALENTINA CHAMPAGNE [facility] Aug 28, 2022 12:35 PM HIP LEFT 2 VIEWS W /PELVIS: JUAN THOMPSON [id number] -1945 M [facility] Date: AUG 28, 2022@12:35 Req Phys: VIPUL CRANE Loc: [facility] APACT L RES 03 WH 4F (Req' Img Loc: MAIN X-RAY Service: Unknown (Case [id number] COMPLETE) HIP LEFT 2 VIEWS W/PELVIS (RAD Detailed) CPT:78168 Proc Modifiers : LEFT Reason for Study: [...] 28, 2022 Date Verified: AUG 28, 2022 Lawn Technician E-Sig:/ES/LYNNE MARTÍNEZ DO Report: EXAMINATION: HIP LEFT [...] Primary Interpreting Staff: LYNNE MARTÍNEZ DO, RADIOLOGIST (Lawn Technician) /DDS LYNNE MARTÍNEZ [facility] Encounter Notes: All associated encounter notes This section contains the clinical notes associated to the Encounter. Date/Time Encounter Note(s) Provider Source Sep 16, 2022 07:24 PM ENDOCRINOLOGY CONSULT: LOCAL TITLE: METABOLIC/ENDOCRINE CONSULT STANDARD TITLE: ENDOCRINOLOGY CONSULT DATE OF NOTE: SEP 16, 2022@19:24 ENTRY DATE: SEP 16, 2022@19:24:43 AUTHOR: ISAEL ALVAREZ COSIGNER: URGENCY: STATUS: COMPLETED Endocrine/Metabolic Clinic Note Chief Complaint: 76 year old MALE referred for initial evaluation of Weight loss. History of Present Illness: PAtient is a 75 YO M w/ [...] into remission. He has never had pancreatitis. Past Medical History: Active problems - Computerized Problem List is the source for the followin. Essential hypertension (SNOMED CT 52287208) 2. Major depressive disorder (SNOMED CT 146300419) 3. Generalized anxiety disorder (SNOMED CT 11697233) 4. Primary Obesity 5. Bronchiectasis (SNOMED CT 24103332) 6. Gastroesophageal reflux disease (SNOMED CT 944437569) 7. Bariatric Surgery Status 8. Cataracts (SNOMED CT 15983344) 9. Hypermetropia/Hyperopia 10. Astigmatism, Unspec 11. Presbyopia 12. Atrial fibrillation (SNOMED CT 53114731) 13. Varicose veins of lower extremity 14. Compulsive gambling 15. Bipolar disorder (SNOMED CT 64285071) 16. Mild cognitive disorder 17. Type 2 diabetes mellitus 18. Long-term current use of anticoagulant 19. Gastritis Allergies: SULFAMETHOXAZOLE (Feb 07, 2022) EMPAGLIFLOZIN (Jun 06, 2022) Active Outpatient Medications (including Supplies): ACCU-CHEK GUIDE (GLUCOSE) TEST STRIP USE 1 STRIP EVERY ACTIVE DAY TO CHECK BLOOD SUGAR--USE WITHIN 3 MINUTES OF REMOVING FROM CONTAINER ACETAMINOPHEN 500MG TAB TAKE ONE TABLET BY MOUTH EVERY 6 ACTIVE HOURS NEEDED FOR PAIN ALBUTEROL 90MCG (CFC-F) 200D ORAL INHL INHALE 1-2 PUFFS BY ACTIVE INHALATION EVERY 4 HOURS NEEDED FOR IMMEDIATE RELIEF OF SHORTNESS OF BREATH *SHAKE WELL* APIXABAN 5MG TAB TAKE ONE TABLET BY MOUTH EVERY 12 HOURS ACTIVE TO PREVENT AND/OR TREAT BLOOD CLOTS ARIPIPRAZOLE 30MG TAB TAKE ONE-HALF TABLET BY MOUTH EVERY ACTIVE (S) DAY ATORVASTATIN CALCIUM 20MG TAB TAKE ONE-HALF TABLET BY ACTIVE MOUTH AT BEDTIME BUPROPION HCL 150MG 24HR SA TAB TAKE ONE TABLET BY MOUTH ACTIVE (S) EVERY MORNING CALCIUM CARB 500MG (CA 200MG) CHEW TAB CHEW ONE TABLET BY ACTIVE MOUTH TWICE A DAY CHOLECALCIF 25MCG (D3-1,000UNIT) TAB TAKE ONE TABLET BY ACTIVE MOUTH EVERY DAY CYANOCOBALAMIN 1000MCG TAB TAKE ONE TABLET BY MOUTH EVERY ACTIVE DAY DICLOFENAC NA 1% TOP GEL APPLY 4 GRAMS TOPICALLY FOUR ACTIVE TIMES A DAY NEEDED TO AFFECTED AREA FOR PAIN. *USE DOSE CARD IN BOX TO MEASURE DOSE. MAX 32 GRAMS PER DAY. INSULIN,GLARGINE 100 UNT/ML 3ML SOLOSTAR INJECT 14 UNITS ACTIVE UNDER THE SKIN EVERY DAY LANCET,SOFTCLIX USE 1 LANCET DIRECTED *DISPOSE OF IN ACTIVE A HARD-PLASTIC CONTAINER WITH A SCREW-ON LIDCONTACT GARBAGE HAULER FOR PROPER DISPOSAL LIDOCAINE 5% PATCH APPLY 1 PATCH TOPICALLY [...] 1 TABLET BY MOUTH EVERY DAY ACTIVE NEEDLE,PEN 31G,8MM USE 1 NEEDLE, NEEDLE, PEN 31G 8MM ACTIVE TOPICALLY DIRECTED *DISPOSE OF IN A HARD-PLASTIC CONTAINER WITH A SCREW-ON LID CONTACT GARBAGE HAULER FOR PROPER DISPOSAL OMEPRAZOLE 20MG EC CAP TAKE ONE CAPSULE BY MOUTH EVERY ACTIVE MORNING AND TAKE TWO CAPSULES EVERY EVENING ON AN EMPTY STOMACH, AT LEAST 30 MINUTES PRIOR TO A MEAL FOR REFRACTORY GERD VENLAFAXINE HCL 150MG 24HR SA CAP TAKE ONE CAPSULE BY ACTIVE (S) MOUTH EVERY DAY MEDICATION RECONCILIATION Outpatient At this visit I have reviewed the medication list, and discussed relevant medications with the patient/surrogate. An updated patient medication list was given to the participant(s). Change/New: I have noted this on the patient's copy of the medication list. Education on NEW Medication: I have reviewed the medication list for possible drug:drug interactions or contraindications prior to ordering NEW medications during this visit. Patient indicated readiness to learn and has been instructed on action, dose, frequency and side effects of the new medication and I noted new medication on participant's copy of the medication list. Verbalizes understanding Family history Osteoporosis in mother Social history Living situation: Alcohol: Infrequently Tobacco: None; quit 30 years prior Other: Denies Review of Systems: Constitutional: denies, fever, chills Derm: denies, skin rashes, new skin lesions HEENT: denies, headaches, seasonal allergies CV: denies, chest discomfort, heart palpitations Resp: denies, shortness of breath, dyspnea on exertion GI: denies, nausea, vomiting, diarrhea Musculoskeletal: joint pain, muscle weakness Neuro: denies, numbness, falls : denies, hematuria Psych: depression Physical Exam: Vital Signs Temp: 97.3 F [36.3 C] (09/11/2022 10:27) B/P: 144/85 (09/11/2022 10:32) Pulse: 70 (09/11/2022 10:27) Ht: 68 in [172.7 cm] (08/15/2022 08:56) Wt: 222.5 lb [100.92 kg] (09/11/2022 10:27) Pain: 8 (08/15/2022 08:56) BMI: 33.9 General: Sitting in chair, walker next to patient, central obesity HEENT: No teeth Neck/Thyroid: thyroid not palpable Cardiac: RRR, no murmurs, radial pulses normal Chest/Lungs: nontender, CTAB Abdomen: soft, non-distended, non-tender : not assessed Extremities: BLE edema 2+ Neurological: hesitant gait (Requires assistance), sensation in legs intact Labs and Imaging LAB RESULTS TODAY - NONE FOUND Assessment and Plan # Morbid Obesity (BMI 33.9) # T2DM # s/p Nora-en-y bypass PAtient received his bariatric procedude in 2011 and experienced profound weight loss thereafter w/ resolution of his diabetes. He is currently treated with Insulin Glargine (14U) and Metformin 500mg (reduced from 2000mg d/t GI symptoms). His home glucometer is currently not functioning, so patient is unable to take measurements. We woud like to have twice daily measurements prior to initiating Liraglutide so that we can appropriately adjust his insulin. Will reach out to nursing home director to help coordinate replacing/troublshooting patient's glucometer. - Vit A level - Return to clinic in 2 months # Possible osteoporosis Familial history of osteoporosis. Reports height decrease from 5'10 to 5'8. No fracture history. Takes calcium carbonate supplements (1 500mg tab daily) and consumes 1-1.5 gallons of milk a week which is roughly 600mg elemental Ca daily from oral intake. Given hx of bypass, our goal is 1200-1500mg daily. - Discontinue Calcium carbonate supplements - Replace with Calcium Citrate 400mg BID - PTH levels today - DEXA ordered Over 50% of this 45 minute visit was spent counseling the patient. All labs completed at this time were discussed with the patient. Patient was discussed and examined with attending , who agrees with the assessment and plan /pablo/ ABBY COHEN RESIDENT PHYSICIAN Signed: 09/11/2022 12:01 Receipt Acknowledged By: 09/16/2022 19:06 /pablo/ ISAEL ALVAREZ MD PHYSICIAN /pablo/ ISAEL ALVAREZ MD PHYSICIAN Signed: 09/16/2022 19:25 ISAEL ALVAREZ [facility] Sep 16, 2022 07:20 PM LETTERS: LOCAL TITLE: FOLLOW UP RESULTS LETTER STANDARD TITLE: LETTERS DATE OF NOTE: SEP 16, 2022@19:20 ENTRY DATE: SEP 16, 2022@19:20:10 AUTHOR: ISAEL ALVAREZ EXP COSIGNER: URGENCY: STATUS: COMPLETED [facility] [address] [place] [address] Aug JUAN THOMPSON [address] [facility] [address] Dear : I am writing to inform you of the results of the tests you had done at the [facility]. The tests below were performed and are satisfactory unless otherwise noted. The date and time of the test as well as the normal range is listed if the actual value of the test is included. Comments: Metabolic results--With these results, given the history of bariatric surgery we obtained a parathyroid hormone and vitamin D level, both of which are at good levels. I also noted some earlier labs, iron studies, consistent with iron deficiency anemia. Let's get you scheduled with a bariatric hackler doll wigs from our group to review bariatric nutritional supplement guidelines, and review what you are currently taking, so that we can make some adjustments as needed. Collection time: Sep 11, 2022@12:52 Test Name Result Units Range --------- ------ ----- ----- PTH-N-TACT 62.1 pg/mL 8.7 - 77.1 VITAMIN A 58 mcg/dL 38 - 98 08/28/2022 10:51 VIT D 25-OH,TOTAL SERUM 58 H ng/mL 12 50 08/28/2022 10:51 B 12 SERUM 934 H pg/mL 213 816 08/28/2022 10:51 FOLATE SERUM 16.2 ng/mL 7.0 08/28/2022 10:51 IRON SERUM 29 L ug/dL 65 175 08/28/2022 10:51 TRANSFERRIN SERUM 319 mg/dL 163 382 08/28/2022 10:51 TIBC,CALCULATED SERUM 399 ug/dL 250 425 08/28/2022 10:51 IRON SATURATION SERUM 7 L % 20 50 08/28/2022 10:51 FERRITIN SERUM 19.7 L ng/mL 21.8 274.7 If you have any further questions or problems, please contact our nursing staff or me at the following number: [phone]. Sincerely, ISAEL ALVAREZ MD PHYSICIAN ISAEL ALVAREZ [facility] Sep 11, 2022 11:28 AM ENDOCRINOLOGY ATTENDING NOTE: LOCAL TITLE: METABOLIC CLINIC NOTE STANDARD TITLE: ENDOCRINOLOGY ATTENDING NOTE DATE OF NOTE: SEP 11, 2022@11:28 ENTRY DATE: SEP 11, 2022@11:28:59 AUTHOR: ABBY COHEN EXP COSIGNER: URGENCY: STATUS: COMPLETED METABOLIC CLINIC NOTE Has ADDENDA Endocrine/Metabolic Clinic Note Chief Complaint: 76 year old MALE referred for initial evaluation of Weight loss. History of Present Illness: PAtient is a 75 YO M w/ [...] into remission. He has never had pancreatitis. Past Medical History: Active problems - Computerized Problem List is the source for the followin. Essential hypertension (SNOMED CT 80604198) 2. Major depressive disorder (SNOMED CT 788609076) 3. Generalized anxiety disorder (SNOMED CT 19976894) 4. Primary Obesity 5. Bronchiectasis (SNOMED CT 04760641) 6. Gastroesophageal reflux disease (SNOMED CT 846061374) 7. Bariatric Surgery Status 8. Cataracts (SNOMED CT 83933921) 9. Hypermetropia/Hyperopia 10. Astigmatism, Unspec 11. Presbyopia 12. Atrial fibrillation (SNOMED CT 66966423) 13. Varicose veins of lower extremity 14. Compulsive gambling 15. Bipolar disorder (SNOMED CT 79582446) 16. Mild cognitive disorder 17. Type 2 diabetes mellitus 18. Long-term current use of anticoagulant 19. Gastritis Allergies: SULFAMETHOXAZOLE (Feb 07, 2022) EMPAGLIFLOZIN (Jun 06, 2022) Active Outpatient Medications (including Supplies): ACCU-CHEK GUIDE (GLUCOSE) TEST STRIP USE 1 STRIP EVERY ACTIVE DAY TO CHECK BLOOD SUGAR--USE WITHIN 3 MINUTES OF REMOVING FROM CONTAINER ACETAMINOPHEN 500MG TAB TAKE ONE TABLET BY MOUTH EVERY 6 ACTIVE HOURS NEEDED FOR PAIN ALBUTEROL 90MCG (CFC-F) 200D ORAL INHL INHALE 1-2 PUFFS BY ACTIVE INHALATION EVERY 4 HOURS NEEDED FOR IMMEDIATE RELIEF OF SHORTNESS OF BREATH *SHAKE WELL* APIXABAN 5MG TAB TAKE ONE TABLET BY MOUTH EVERY 12 HOURS ACTIVE TO PREVENT AND/OR TREAT BLOOD CLOTS ARIPIPRAZOLE 30MG TAB TAKE ONE-HALF TABLET BY MOUTH EVERY ACTIVE (S) DAY ATORVASTATIN CALCIUM 20MG TAB TAKE ONE-HALF TABLET BY ACTIVE MOUTH AT BEDTIME BUPROPION HCL 150MG 24HR SA TAB TAKE ONE TABLET BY MOUTH ACTIVE (S) EVERY MORNING CALCIUM CARB 500MG (CA 200MG) CHEW TAB CHEW ONE TABLET BY ACTIVE MOUTH TWICE A DAY CHOLECALCIF 25MCG (D3-1,000UNIT) TAB TAKE ONE TABLET BY ACTIVE MOUTH EVERY DAY CYANOCOBALAMIN 1000MCG TAB TAKE ONE TABLET BY MOUTH EVERY ACTIVE DAY DICLOFENAC NA 1% TOP GEL APPLY 4 GRAMS TOPICALLY FOUR ACTIVE TIMES A DAY NEEDED TO AFFECTED AREA FOR PAIN. *USE DOSE CARD IN BOX TO MEASURE DOSE. MAX 32 GRAMS PER DAY. INSULIN,GLARGINE 100 UNT/ML 3ML SOLOSTAR INJECT 14 UNITS ACTIVE UNDER THE SKIN EVERY DAY LANCET,SOFTCLIX USE 1 LANCET DIRECTED *DISPOSE OF IN ACTIVE A HARD-PLASTIC CONTAINER WITH A SCREW-ON LIDCONTACT GARBAGE HAULER FOR PROPER DISPOSAL LIDOCAINE 5% PATCH APPLY 1 PATCH TOPICALLY [...] 1 TABLET BY MOUTH EVERY DAY ACTIVE NEEDLE,PEN 31G,8MM USE 1 NEEDLE, NEEDLE, PEN 31G 8MM ACTIVE TOPICALLY DIRECTED *DISPOSE OF IN A HARD-PLASTIC CONTAINER WITH A SCREW-ON LID CONTACT GARBAGE HAULER FOR PROPER DISPOSAL OMEPRAZOLE 20MG EC CAP TAKE ONE CAPSULE BY MOUTH EVERY ACTIVE MORNING AND TAKE TWO CAPSULES EVERY EVENING ON AN EMPTY STOMACH, AT LEAST 30 MINUTES PRIOR TO A MEAL FOR REFRACTORY GERD VENLAFAXINE HCL 150MG 24HR SA CAP TAKE ONE CAPSULE BY ACTIVE (S) MOUTH EVERY DAY MEDICATION RECONCILIATION Outpatient At this visit I have reviewed the medication list, and discussed relevant medications with the patient/surrogate. An updated patient medication list was given to the participant(s). Change/New: I have noted this on the patient's copy of the medication list. Education on NEW Medication: I have reviewed the medication list for possible drug:drug interactions or contraindications prior to ordering NEW medications during this visit. Patient indicated readiness to learn and has been instructed on action, dose, frequency and side effects of the new medication and I noted new medication on participant's copy of the medication list. Verbalizes understanding Family history Osteoporosis in mother Social history Living situation: Alcohol: Infrequently Tobacco: None; quit 30 years prior Other: Denies Review of Systems: Constitutional: denies, fever, chills Derm: denies, skin rashes, new skin lesions HEENT: denies, headaches, seasonal allergies CV: denies, chest discomfort, heart palpitations Resp: denies, shortness of breath, dyspnea on exertion GI: denies, nausea, vomiting, diarrhea Musculoskeletal: joint pain, muscle weakness Neuro: denies, numbness, falls : denies, hematuria Psych: depression Physical Exam: Vital Signs Temp: 97.3 F [36.3 C] (09/11/2022 10:27) B/P: 144/85 (09/11/2022 10:32) Pulse: 70 (09/11/2022 10:27) Ht: 68 in [172.7 cm] (08/15/2022 08:56) Wt: 222.5 lb [100.92 kg] (09/11/2022 10:27) Pain: 8 (08/15/2022 08:56) BMI: 33.9 General: Sitting in chair, walker next to patient, central obesity HEENT: No teeth Neck/Thyroid: thyroid not palpable Cardiac: RRR, no murmurs, radial pulses normal Chest/Lungs: nontender, CTAB Abdomen: soft, non-distended, non-tender : not assessed Extremities: BLE edema 2+ Neurological: hesitant gait (Requires assistance), sensation in legs intact Labs and Imaging LAB RESULTS TODAY - NONE FOUND Assessment and Plan # Morbid Obesity (BMI 33.9) # T2DM # s/p Nora-en-y bypass PAtient received his bariatric procedude in 2011 and experienced profound weight loss thereafter w/ resolution of his diabetes. He is currently treated with Insulin Glargine (14U) and Metformin 500mg (reduced from 2000mg d/t GI symptoms). His home glucometer is currently not functioning, so patient is unable to take measurements. We woud like to have twice daily measurements prior to initiating Liraglutide so that we can appropriately adjust his insulin. Will reach out to nursing home director to help coordinate replacing/troublshooting patient's glucometer. - Vit A level - Return to clinic in 2 months # Possible osteoporosis Familial history of osteoporosis. Reports height decrease from 5'10 to 5'8. No fracture history. Takes calcium carbonate supplements (1 500mg tab daily) and consumes 1-1.5 gallons of milk a week which is roughly 600mg elemental Ca daily from oral intake. Given hx of bypass, our goal is 1200-1500mg daily. - Discontinue Calcium carbonate supplements - Replace with Calcium Citrate 400mg BID - PTH levels today - DEXA ordered Over 50% of this 45 minute visit was spent counseling the patient. All labs completed at this time were discussed with the patient. Patient was discussed and examined with attending , who agrees with the assessment and plan /pablo/ ABBY COHEN RESIDENT PHYSICIAN Signed: 09/11/2022 12:01 Receipt Acknowledged By: 09/16/2022 19:06 /pablo/ ISAEL ALVAREZ MD PHYSICIAN 09/16/2022 ADDENDUM STATUS: COMPLETED metabolic attending addendum--alerting metabolic nurse here by way of co-sign to please follow up with pt in about 1 wk on new blood sugars; pt should be checking sugars (is he checking 2 times daily?) in preparation for possible lirglutide start which will require insulin adjustment. When you talk to him please confirm current insulin dose--do not think he is on any other meds for DM, please confirm. /aneesh ALVAREZ MD PHYSICIAN Signed: 09/16/2022 19:11 Receipt Acknowledged By: 09/18/2022 15:08 /pablo/ MIGUEL ANGEL WHITLOCK RN Metabolic Pizzamaker 09/18/2022 ADDENDUM STATUS: COMPLETED Attemtped to contact , no answer. Left a voicemail with direct number to call when he is available. /aneesh WHITLOCK RN Metabolic Pizzamaker Signed: 09/18/2022 15:09 10/03/2022 ADDENDUM STATUS: COMPLETED pt needs bariatric surgical nutritional guidelines discussion and review of current supplements he is fadi ferraro(hx of bariatric sx); alerting [facility] for scheduling /pablo/ ISAEL ALVAREZ MD PHYSICIAN Signed: 10/03/2022 15:22 Receipt Acknowledged By: * AWAITING SIGNATURE * WALTER BOWEN [facility] Sep 11, 2022 10:29 AM INTERNAL MEDICINE OUTPATIENT NOTE: LOCAL TITLE: MEDICINE CLINIC NURSING NOTE STANDARD TITLE: INTERNAL MEDICINE OUTPATIENT NOTE DATE OF NOTE: SEP 11, 2022@10:29 ENTRY DATE: SEP 11, 2022@10:29:51 AUTHOR: BE WRIGHT EXP COSIGNER: URGENCY: STATUS: COMPLETED MEDICINE CLINIC NURSING NOTE Has ADDENDA TYPE OF VISIT: Appointment Check In Type of appointment: In-person appointment REASON FOR VISIT: scheduled visit ALLERGIES: SULFAMETHOXAZOLE (Feb 07, 2022) EMPAGLIFLOZIN (Jun 06, 2022) VITAL SIGNS: Blood Pressure: 166/98 (09/11/2022 10:27) Recheck: 144/85 Pulse: 70 (09/11/2022 10:27) Respiration: 18 (09/11/2022 10:27) Temperature: 97.3 F [36.3 C] (09/11/2022 10:27) Weight: 222.5 lb [100.92 kg] (09/11/2022 10:27) Height: 68 in [172.7 cm] (08/15/2022 08:56) BMI: 33.9 O2 Sat: 97% (09/11/2022 10:27) Pain: 8 (08/15/2022 08:56) Patient is asymptomatic PAIN SCREEN: Patient is not having significant pain that they wish to discuss with their provider today. MEDICATION Over the Counter/Herbal Medications: The patient denies taking any outside medications or herbals. /aneesh WRIGHT LPN LPN Signed: 09/11/2022 10:32 09/11/2022 ADDENDUM STATUS: COMPLETED THIRD B/P RECHECK: 152/79. Reinforced teaching to patient on monitoring b/p at home. Advised patient to follow up with primary/PACT. /pablo/ OG BUSTAMANTE LPN Signed: 09/11/2022 11:40 BE WRIGHT [facility]
--- OUTSIDE RECORDS SUMMARY | 2023-08-13 12:29 | XMS_ITS | Encounter Summary ---
Author Name [facility] Organization [facility] Address [address] [place] [address] Support Name Relationship Address Phone SIRIA THOMPSON Next of Kin [address] [place] [id number] SIRIA THOMPSON Emergency Contact [address] [place] [id number] NATHALIE DING Emergency Contact Unknown [phone] Insurance Providers: All historical and current Section Date Range: From patient's date of to the date document was created. This section includes the names of all active insurance providers for the patient. Insurance Provider Type of Coverage Plan Name Start of Policy Coverage End of Policy Coverage Group Number Member ID Insurance Provider's Telephone Number Policy Maldonado's Name Patient's Relationship to Policy Maldondao MEDICARE (WNR) MEDICARE (M) PART A Sep 26, 2012 PART A [id number] [facility] [phone] JUAN THOMPSON JR PATIENT MEDICARE (WNR) MEDICARE (M) PART B Sep 26, 2012 PART B [id number] [phone] JUAN THOMPSON JR PATIENT Selected Encounter This section includes the information on record at [place] for the Encounter. Date/Time Encounter Type Encounter Description Reason Provider Source Sep 28, 2022 09:30 AM ORAL FUNCTION THERAPY SPEECH-LANGUAGE PATHOLOGY ICD-10-CM R13.12 Dysphagia, oropharyngeal phase CLEMENTE POOLE Encounter Template Text not used by [place] Assessments - Encounter Diagnoses This section includes the primary and secondary diagnoses documented for the Encounter. Date/Time Primary/Secondary Diagnosis Diagnosis Name Provider Source Sep 28, 2022 10:02 AM PRIMARY Dysphagia, oropharyngeal phase CLEMENTE POOLE [facility] Plan of Treatment: Future Appointments (+ 6 months) and Future Tests (+/- 45 days) The Plan of Treatment section includes future care activities for the [facility] [place] [facility] This section includes future appointments and future orders which are active, pending or scheduled. Future Appointments This section includes appointments that were scheduled to occur 6 months from the date of the Encounter, up to a maximum of 20 appointments. The data comes from all [facility] facilities. Appointment Date/Time Appointment Type Appointme nt Facility Name Oct 01, 2022 07:00 AM AMBULATORY - NONE [facility] Oct 01, 2022 07:15 AM AMBULATORY - NONE [facility] [facility] Nov 06, 2022 10:00 AM AMBULATORY - [place]ICINE [place] [facility] Nov 06, 2022 12:45 PM AMBULATORY - NONE [facility] Nov 19, 2022 11:00 AM AMBUL[place]ORY [place] [facility] November 27, 2022 01:15 PM AMBULATORY - NONE [facility] [facility] Dec 28, 2022 10:30 AM AMBULATORY - MEDICINE [facility] [facility] Dec 31, 2022 09:00 AM AMBULATORY [place] [facility] [facility] Jan 16, 2023 10:00 AM AMBULATORY [place] [facility] [facility] Jan 17, 2023 10:00 AM AMBULATORY [place] [facility] [facility] Feb 13, 2023 01:45 PM AMBULATORY - SURGERY [place] [facility] [facility] Feb 13, 2023 03:15 PM AMBULATORY - NONE [facility] [facility] Feb 25, 2023 09:15 AM AMBULATORY - MEDICINE [place] [facility] [facility] Feb 25, 2023 09:30 AM AMBULATORY - MEDICINE [facility] [facility] Feb 25, 2023 11:00 AM AMBULATORY - MEDICINE [place] [facility] [facility] Mar 07, 2023 08:30 AM AMBULATORY - MEDICINE [place] [facility] [facility] Mar 31, 2023 07:00 AM AMBULATORY - NONE [place] [facility] [facility] Lab Results: +/- 30 days of the encounter This section includes the Chemistry and Hematology Lab Results on record with [place] for the patient. Radiology Reports and Pathology [...] analytical performance characteristics have been determined by [employer] [place], [place]. It has not been cleared or approved by the U.S. Food and Drug Administration. This assay has been validated pursuant to the CLIA regulations and is used for clinical purposes. Test Performed by [facility], [employer] [place], [address] [place] [address] Devante Meyer M.D., Ph.D., Director of Laboratories , CLIA [id number] Ordering Provider: ABBY COHEN Report Released Date/Time: Sep 11, 2022 11:28 AM Reporting Lab: [facility] [id number] Performing Lab: [address] VITAMIN A [id number] Sep 11, 2022 12:52 PM [facility] PTH-N-TACT Specimen Type: PLASMA No comment entered. Ordering Provider: ABBY COHEN Report Released Date/Time: Sep 11, 2022 11:28 AM Reporting Lab: [facility] [id number] Performing Lab: [facility] [id number] PTH-N-TAC T 62.1 8.7-77.1 Social History: Smoking Status (Most current) and Tobacco Use (All prior to encounter date) This section includes the most current, and the historical, smoking and tobacco- related health factors from the [place] facility where the Encounter took place. Current Smoking Status This section includes the most current smoking, or tobacco-related health factor, from the [place] facility where the Encounter took place. Date/Time Current Smoking Status Comment Aj woods Aug 15, 2022 09:00 AM VA-TOBACCO FORMER USER [facility] Tobacco Use History This section includes a history of the smoking, or tobacco-related health factors, that were collected on or before the date of the Encounter. The data comes from the [place] facility where the Encounter took place. Date/Time [...] Encounter. The data comes from all [facility] facilities. Date/Time Radiology Report Provider Source Sep 28, 2022 08:55 AM ESOPHAGRAM VIDEO S WALLOW: JUAN THOMPSON [id number] -[id number] M Ex Date: SEP 28, 2022@08:55 Req Phys: VIPUL CRANE Pat Loc: [facility] APACT L RES 03 WH 4F (Req' Img Loc: MAIN X-RAY Service: Unknown (Case [id number] COMPLETE) ESOPHAGRAM VIDEO SWALLOW (RAD Detailed) CPT:99880 Contrast Media : Barium Reason for Study: dysphagia Clinical History: [place] IS NOT under investigation for COVID-19 or is COVID-19 negative Ongoing for several years. 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 and smoker (quit 25+ years ago) Responsible provider name and phone number to notify for critical findings if other than user placing the order and pager listed below: User placing orders pager: LAST CREATININE 1.1 (12/14/22) Report Status: Verified Date Reported: SEP 28, 2022 Date Verified: SEP 28, 2022 Flat Sheet Maker E-Sig:/ES/VALENTINA LEON MD Report: EXAMINATION: ESOPHAGRAM VIDEO [...] Primary Interpreting Staff: VALENTINA LEON MD, RADIOLOGIST (Flat Sheet Maker) Primary Interpreting Resident: MARE ROMERO MD, TAMPER OPERATOR /VALENTINA CHAMPAGNE [facility] Encounter Notes: All associated encounter notes This section contains the clinical notes associated to the Encounter. Date/Time Encounter Note(s) Provider Source Sep 28, 2022 09:00 AM SPEECH PATHOLOGY C ONSULT: LOCAL TITLE: SPEECH PATHOLOGY CONSULT STANDARD TITLE: SPEECH PATHOLOGY CONSULT DATE OF NOTE: SEP 28, 2022@09:00 ENTRY DATE: SEP 28, 2022@10:36:36 AUTHOR: CLEMENTE POOLE EXP COSIGNER: URGENCY: STATUS: COMPLETED Speech-Language Pathology Outpatient Dysphagia--Modified Barium Swallow (MBS) Evaluation Note IMPRESSIONS: Dysphagia risk factors: # medical conditions; # medications; GERD; cognitive impairment Patient with mild oropharyngeal dysphagia (JOSEPHINE level 5). Deficits to include frequent involuntary tongue movements both at rest during CN exam and during swallowing, reduced oral control, reduced oral clearance, extended mastication (no teeth) with pt swallowing some solid whole/incompletely chewed, reduced anterior hyoid movement during swallowing with incomplete laryngeal vestibule closure, and reduced BOT retraction. There was chronic shallow penetration during the swallow of 100% of thin liquid trials, but most penetrated material was ejected with force of swallow. There was no aspiration for any consistency. There was a mild amount of vallecular residue after swallow of solid, but potentially, this is because it was poorly-chewed. Solid was cleared with a provided thin rinse. Overall, patient with mild deficits that can be well-managed at this time with compensations. Would also recommend GERD precautions as this can cause some of the symptoms he is reporting. Patient's cognitive status may be a barrier to self-use of compensations. Of note, a referral to Neurology could be appropriate given pt's significant hypophonia and tongue movements seen during the CN assessment and during MBSS (aware he has been evaluated for tardive dyskinesia before). I will respectfully defer to MD to place a referral if appropriate. EVENT MARKETING INTERN met with patient and his guardian after MBSS and showed them both the video swallow study on recording for improved understanding. Aspiration and reflux precautions were discussed. Patient thought the information was interesting and he stated understanding. Further EVENT MARKETING INTERN intervention not planned at this time. RECOMMENDATIONS: 1. Diet: - Solids: Easy to Chew solids (not a dysphagia diet, this is for the person without teeth) - Liquids: Thin liquids - Pills with water 2. Aspiration precautions for this patient: - Upright for all PO intake - Eat with maximal levels of awareness and alertness - Alternate solids with liquids 3. Oral hygiene AM and PM: Jasper mouth and tongue with toothbrush and toothpaste. 4. Acid reflux precautions: - Small/frequent meals - Take medication as recommended by physician - Remain upright while eating and for 60 mins after - Do not eat right before bedtime - Maintain water intake - Avoid spicy/acid foods: Alcohol, coffee, mint, chocolate, tomato, citrus, fatty/greasy foods. - Elevate HOB overnight PLAN: ----- -- Further EVENT MARKETING INTERN intervention not planned at this time -- Consider referral to Neurology given hypophonia and tongue shaking seen during swallowing and at rest during CN exam if not consistent with tardive dyskinesia -- Please reconsult EVENT MARKETING INTERN if needed based on outcomes of possible Neuro consult GOALS: ------ Patient goals: None stated this visit Long-term goals: a. Patient will maintain nutrition and hydration on the least restrictive diet without clinical s/s of aspiration or adverse respiratory event. History: -------- Mr. Thompson is a 76YOM with hx of HTN, Depression, STEPHANIE, obesity, GERD, bipolar disorder, gambling disorder, cognitive disorder, who was referred to EVENT MARKETING INTERN for MBSS after the patient reported difficulty swallowing solid food. He no showed the initial MBSS appt and so it was rescheduled for today. S: Patient arrived on time for MBSS accompanied by a guardian from the [facility]. Patient participated in clinical interview with EVENT MARKETING INTERN. He made so many jokes throughout that it was difficult to complete the interview or tell when he was being serious, e.g. when asked about swallowing he told a story about swallows (birds) off [address] in [place].... Redirection was needed throughout. He stated that he has not experienced any choking, but that the food drags down his throat. He eats soft meats and no stringy veggies. He denies problems swallowing liquids or pills. Notably, the patient was significantly hypophonic and he was constantly asked to repeat himself. OBJECTIVE: PATIENT STATUS: RESPIRATORY: On room air SITTING BALANCE: Adequate HEAD AND NECK CONTROL: Adequate HEARING: Impaired MENTAL STATUS: Cooperative, pleasant, friendly. Oral mechanism examination: Remarkable for tongue shaking at rest and mildly reduced tongue strength bilaterally. Complete edentulism. Significant hypophonia requiring repeated requests for repetition by the listener (EVENT MARKETING INTERN and pt's guardian). MBSS: ----- Positioning: Seated Views: Lateral, AP Consistencies: Thin liquid, Mildly-Thick Liquid, Pudding, Solid Presentation: Spoon, Cup SWALLOW: -------- MODIFIED BARIUM SWALLOW IMPAIRMENT PROFILE SCORES 1. Lip Closure 0=No labial escape 2. Tongue Control During Bolus hold 2=Posterior escape of less than half of bolus 3. Bolus Preparation/Mastication 2=Disorganized chewing/mashing with solid pieces of bolus unchewed 4. Bolus Transport/Lingual Motion 3=Repetitive/disorganized tongue motion 5. Oral Residue 2=Residue collection on oral structures Oral Residue Locations C=Tongue 6. Initiation of Pharyngeal Swallow 1=Bolus head in valleculae 7. Soft Palate Elevation 0=No bolus between soft palate (SP)/pharyngeal wall (PW) 8. Laryngeal Elevation 0=Complete superior movement of thyroid cartilage with complete approximation of arytenoids to epiglottic petiole 9. Anterior Hyoid Excursion 1=Partial anterior movement 10. Epiglottis Movement 0=Complete inversion 11. Laryngeal Vestibular Closure 1=Incomplete; narrow column air/contrast in laryngeal vestibule 12. Pharyngeal Stripping Wave 0=Present - complete 13. Pharyngeal Contraction 0=Complete 14. Pharyngoesophageal Segment Opening 0=Complete distension and complete duration; no obstruction of flow 15. Tongue Base Retraction 1=Trace column of contrast or air between TB and PPW 16. Pharyngeal Residue 1=Trace residue within or on pharyngeal structures Pharyngeal Residue Locations B=Valleculae 17. Esophageal Clearance Upright Position Could not assess Oral Impairment Score (Components 1-6): 10 Pharyngeal Impairment Score (Components 7-16): 4 Esophageal Impairment Score (Component 17): -- On the 8-item Penetration-Aspiration Scale, patient scored 1: Contrast does not enter the airway 2: Contrast enters the airway, remains above vocal folds, no residue 3: Contrast remains above vocal folds, visible residue remains 4: Contrast contacts vocal folds, no residue 5: Contrast contacts vocal folds, visual residue remains 6: Contrast passes glottis, no sub-glottic residue visible 7: Contrast passes glottis, visible sub-glottic residue despite pt response 8: Contrast passes glottis, visible sub-glottic residue, absent pt response Lateral View: Thin Liquids: Tsp. PAS: 2 Tsp. PAS: 2 Cup: PAS: 3 Cup: PAS: 3 Consecutive: PAS: 3-3-3-2 Mildly-Thick Liquid: Cup: PAS: 1 Pudding PAS: 1 Cracker: PAS: 1-1 Thin Liquids: Cup: PAS: 2 AP view: - Symmetric swallowing - Symmetrical vocal fold elevation and approximation with phonation FUNCTIONAL ORAL INTAKE SCALE (FOIS): The FOIS is a measure of swallow function that identifies a patient's current method and/or modifications for intake of daily nutrition. Tube Dependent (Levels 1-3) -No oral intake (1) -Tube dependent with minimal/inconsistent oral intake (2) -Tube supplements with consistent oral intake (3) Total Oral Intake (Levels 4-7) -Total oral intake of a single consistency (4) -Total oral intake of multiple consistencies requiring special preparation (5) -Total oral intake with no special preparation, but must avoid specific foods or liquid items (6) -Total oral intake with no restrictions (7) Patient score: 7 DYSPHAGIA OUTCOME AND SEVERITY SCALE: Level 5: Mild dysphagia: Distant supervision, may need one diet consistency restricted May exhibit one or more of the following Aspiration of thin liquids only but with strong reflexive cough to clear completely Airway penetration midway to cords with one or more consistency or to cords with one consistency but clears spontaneously Retention in pharynx that is cleared spontaneously Mild oral dysphagia with reduced mastication and/or oral retention that is cleared spontaneously Thank you for this consult. Please call EVENT MARKETING INTERN with questions at [phone]. /pablo/ CLEMENTE POOLE M.S., CCC-EVENT MARKETING INTERN, B[employer]-S SPEECH-LANGUAGE PATHOLOGIST Signed: 10/01/2022 14:19 CLEMENTE POOLE [facility]
--- OUTSIDE RECORDS SUMMARY | 2023-08-13 12:29 | XMS_ITS | Encounter Summary ---
Author Name Department of Vetera Affairs Organization Department of Vetera ns Affairs Address [address] [place] [address] Support Name Relationship Address Phone DONNA SIRIA Next of Kin [address] [place], [place] [phone] SIRIA THOMPSON Emergency Contact [address] [place] [id number] NATHALIE CLINE Emergency Contact Unknown [phone] Insurance Providers: All historical and current Section [...] PART A Sep 26, 2012 PART A [id number] [facility] [phone] JUAN THOMPSON JR PATIENT MEDICARE (WNR) MEDICARE (M) PART B Sep 26, 2012 PART B [id number] [phone] JUAN THOMPSON JR PATIENT Selected Encounter This section includes the information on record at [place] for the Encounter. Date/Time Encounter Type Encounter Description Reason Pro vider Source Sep 25, 2022 12:42 PM Outpatient Encounter TELEPHONE TRIAGE IHE Encounter Template Text not used by AL Plan of Treatment: Future Appointments (+ 6 months) and Future Tests (+/- 45 days) The Plan of Treatment section includes future care activities for the patient from all [place] treatmentfacilities. This section includes future appointments and [...] 08:30 AM [facility] [place] [facility] Sep 28, 2022 09:00 AM [place] [place] [facility] Sep 28, 2022 09:30 AM AMBULATORY - REHAB [facility] Oct 01, 2022 07:00 AM [place] [place] [facility] Oct 01, 2022 07:15 AM [facility] [place] [facility] Nov 06, 2022 10:00 AM [place] [facility] Nov 06, 2022 12:45 PM AM[facility]ORY [place]ONE [place] [facility] Nov 19, 2022 11:00 AM [place] [facility] November 27, 2022 01:15 PM AM[facility]UL[facility]ORY - NONE [place] [facility] Dec 28, 2022 10:30 AM [place] [facility] Dec 31, 2022 09:00 AM [place] [facility] Jan 16, 2023 10:00 AM [place] [facility] Jan 17, 2023 10:00 AM [place] [facility] Feb [...] [place] [facility] Lab Results: [...] Range Comment Sep 11, 2022 12:52 PM [facility] VITAMIN A Specimen Type: SERUM Comment: Vitamin supplementation within 24 hours prior to blood draw may affect the accuracy of the results. This test was developed and its analytical performance characteristics have been determined by [employer] [place] [place]. It has not been cleared or approved by the U.S. Food and Drug Administration. This assay has been validated pursuant to the CLIA regulations and is used for clinical purposes. Test Performed by [facility], [employer] [facility], [address] [place] [address] Devante Meyer M.D., Ph.D., Director of Laboratories , CLIA [id number] Ordering Provider: ABBY COHEN Report Released Date/Time: Sep 11, 2022 11:28 AM Reporting Lab: [facility] [id number] Performing Lab: [address] VITAMIN A 58 38-98 Sep 11, 2022 12:52 PM [facility] PTH-N-TACT Specimen Type: PLASMA No comment entered. Ordering Provider: ABBY COHEN Report Released Date/Time: Sep 11, 2022 11:28 AM Reporting Lab: [facility] [id number] Performing Lab: [facility] [address] PTH-N-TACT 62.1 8.7-77.1 Aug 28, 2022 10:51 AM [facility] LIPID PANEL,NON-FASTING Specimen Type: PLASMA No comment entered. Ordering Provider: VIPUL CRANE Report Released Date/Time: Aug 15, 2022 09:14 AM Reporting Lab: [facility] [address] Performing Lab: [facility] [address] CHOLESTEROL 115 <199 .HDL 43 >40 LDL CALCULATION 58 <99 VLDL CALCULATION 14 <29 NON HDL CHOLESTEROL 72 <129 TRIG(NON FASTING) 70 <149 Aug 28, 2022 10:51 AM [facility] HEMOGLOBIN A1C Specimen Type: BLOOD Comment: [...] Aug 15, 2022 09:14 AM Reporting Lab: [facility] [address] Performing Lab: [facility] [address] HEMOGLOBIN A1C 8.4 H 4.0-6.0 Aug 28, 2022 10:51 AM [facility] BASIC METABOLIC PANEL+MG Specimen Type: PLASMA No comment entered. Ordering Provider: INGRID BURLESON Report Released Date/Time: Jul 11, 2022 01:04 PM Reporting Lab: [facility] [address] Performing Lab: [facility] [address] CREATININE 1.1 0.7-1.2 UREA NITROGEN 20 8-26 GLUCOSE 170 H 70-100 SODIUM 141 136-145 POTASSIUM 4.2 3.5-5.1 CHLORIDE 103 98-107 CO2 31 H 22-29 CALCIUM 9.4 8.4-10.2 MAGNESIUM 1.5 L 1.6-2.6 ANION GAP 7 5-15 CREAT EGFR(CKD-EPI ) 70 >60 Aug 28, 2022 10:51 AM [facility] B 12 Specimen Type: SERUM No comment entered. Ordering Provider: VIPUL CRANE Report Released Date/Time: Aug 15, 2022 10:30 AM Reporting Lab: [facility] [address] Performing Lab: [facility] [address] B 12 934 H 213-816 Aug 28, 2022 10:51 AM [facility] FOLATE Specimen Type: SERUM No comment entered. Ordering Provider: VIPUL CRANE Report Released Date/Time: Aug 15, 2022 10:30 AM Reporting Lab: [facility] [address] Performing Lab: [facility] [address] FOLATE 16.2 >7.0 Aug 28, 2022 10:51 AM [facility] TSH W/REFLEX TO FREE T4 Specimen Type: PLASMA No comment entered. Ordering Provider: VIPUL CRANE Report Released Date/Time: Aug 15, 2022 10:30 AM Reporting Lab: [facility] [address] Performing Lab: [facility] [address] TSH 2.66 0.35-4.94 Aug 28, 2022 10:51 AM [facility] IRON GROUP Specimen Type: SERUM No comment entered. Ordering Provider: VIPUL CRANE Report Released Date/Time: Aug 15, 2022 10:30 AM Reporting Lab: [facility] [address] Performing Lab: [facility] [address] IRON 29 L 65-175 TIBC,CALCULA ASCENCION 399 250-425 FERRITIN 19.7 L 21.8-274.7 IRON SATURATION 7 L 20-50 TRANSFERRIN 319 163-382 Aug 28, 2022 10:51 AM [facility] VIT D 25-OH,TOTAL Specimen Type: SERUM No comment entered. Ordering Provider: VIPUL CRANE Report Released Date/Time: Aug 15, 2022 10:31 AM Reporting Lab: [facility] [address] Performing Lab: [facility] [address] VIT D 25-OH,TOTAL 58 H 12-50 Aug 28, 2022 10:51 AM [facility] CBC Specimen Type: BLOOD No comment entered. Ordering Provider: VIPUL CRANE Report Released Date/Time: Aug 15, 2022 09:14 AM Reporting Lab: [facility] [address] Performing Lab: [facility] [address] WBC 8.61 4.0-11.0 RBC 4.26 L 4.6-6.2 HGB 11.2 L 13.5-17.9 HCT 35.4 L 41-54 MCV 83.1 80-100 MCH 26.3 L 27-33 MCHC 31.6 L 32.0-37.5 PLT 345 150-400 MPV 9.4 7.4-10.4 RDW 15.0 H 11.5-14.5 Social History: Smoking Status (Most current) and Tobacco Use (All prior to encounter date) This section includes the most current, and the historical, smoking and tobacco- related health factors from the [facility] where the Encounter took place. Current Smoking Status This section includes the most current smoking, or tobacco-related health factor, from the [facility] facility where the Encounter took place. Date/Time Current Smoking Status Comment Facil ity Aug 15, 2022 09:00 AM VA-TOBACCO FORMER USER [facility] Tobacco Use History This section includes a history of the smoking, or tobacco-related health factors, that were collected on or before the date of the Encounter. The data comes from the [facility] where the Encounter took place. Date/Time Smoking Status/Tobacco Use Comment F acility Aug 15, 2022 09:00 AM VA-TOBACCO QUIT 15 YRS OR MORE [facility] Aug 21, 2021 01:00 PM VA-TOBACCO FORMER USER [facility] Aug 21, 2021 01:00 PM VA-TOBACCO QUIT 15 YRS OR MORE [facility] Jul 09, 2018 08:58 AM VA-TOBACCO FORMER USER [facility] Jul 09, 2018 08:58 AM VA-TOBACCO QUIT 15 YRS OR MORE [facility] Jul 18, 2017 09:58 AM FORMER TOBACCO USER 7Y OR GREATE R [facility] Aug 14, 2016 10:59 AM FORMER TOBACCO USER 7Y OR GREATE R [facility] Jun 29, 2015 02:03 PM FORMER TOBACCO USER 7Y OR GREATE R [facility] Jan 06, 2014 03:04 PM FORMER TOBACCO USER 7Y OR GREATE R [facility] Jan 04, 2012 08:36 AM FORMER TOBACCO USER 7Y OR GREATE R [facility] Radiology Reports: +/- 30 days of [...] the Encounter. The data comes from all [facility]. Date/Time Radiology Report Provider Source Sep 28, 2022 08:55 AM ESOPHAGRAM VIDEO S WALLMARTY: JUAN THOMPSON [id number] -1945 M Ex Date: SEP 28, 2022@08:55 Req Phys: VIPUL CRANE Loc: [facility] APACT L RES 03 WH 4F (Req' Img Loc: MAIN X-RAY Service: Unknown (Case [id number] COMPLETE) ESOPHAGRAM VIDEO SWALLOW (RAD Detailed) CPT:33511 Contrast Media : Barium Reason for Study: dysphagia Clinical History: [place] IS NOT under investigation for COVID-19 or [...] 28, 2022 Date Verified: SEP 28, 2022 Cooking Chef E-Sig:/ES/VALENTINA LEON MD Report: EXAMINATION: ESOPHAGRAM VIDEO [...] Primary Interpreting Staff: VALENTINA LEON MD, RADIOLOGIST (Cooking Chef) Primary Interpreting Resident: MARE ROMERO MD, IMPROVEMENT ANALYST /VALENTINA CHAMPAGNE [facility] Aug 28, 2022 12:35 PM HIP LEFT 2 VIEWS W /PELVIS: JUAN THOMPSON [id number] [facility]-1945 M Exm Date: AUG 28, 2022@12:35 Req Phys: CRANEVIPUL Cox Pat Loc: [facility] APACT L RES 03 WH 4F (Req' Img Loc: MAIN X-RAY Service: Unknown (Case [id number] COMPLETE) HIP LEFT 2 VIEWS W/PELVIS (RAD Detailed) CPT:67219 Proc Modifiers : LEFT Reason for Study: [...] 28, 2022 Date Verified: AUG 28, 2022 Cooking Chef E-Sig:/ES/LYNNE MARTÍNEZ DO Report: EXAMINATION: HIP LEFT [...] Primary Interpreting Staff: LYNNE MARTÍNEZ DO, RADIOLOGIST (Cooking Chef) /DDS LYNNE MARTÍNEZ [facility] Encounter Notes: All associated encounter notes This section contains the clinical notes associated to the Encounter. Date/Time Encounter Note(s) Provider Source Sep 25, 2022 12:42 PM REPORT OF CONTACT: LOCAL TITLE: PATIENT CONTACT NOTE STANDARD TITLE: REPORT OF CONTACT DATE OF NOTE: SEP 25, 2022@12:42 ENTRY DATE: SEP 25, 2022@12:42:54 AUTHOR: PENNY RITTER COSIGNER: URGENCY: STATUS: COMPLETED PATIENT CONTACT NOTE Has [facility] Call Center Phone number verified as correct. Noted: Sherry called from [facility] requesting homecare services for the patient. /es/ PENNY WYLIE [facility] Signed: 09/25/2022 12:44 Receipt Acknowledged By: 09/26/2022 13:42 /pablo/ ANJALI RUSS RN REGISTERED NURSE 09/26/2022 ADDENDUM STATUS: COMPLETED No phone number given for Sherry. Was able to reach [facility] and left message for his home care associate. Have not received call back regarding what he needs. /pablo/ ANJALI RUSS RN REGISTERED NURSE Signed: 09/26/2022 13:44 09/27/2022 ADDENDUM STATUS: COMPLETED [place] phoned in response to phone calls received with no vmail. His guardian is who most likely is inquiring about home care services. He believes [facility] is most likely planning in advance of possible hip surgery. Nathalie Cline is Guardian phone [phone], Sherry may also be helping her. /es/ [facility]OR[facility]ZA BLOOM [facility] Signed: 09/27/2022 12:26 Receipt Acknowledged By: 09/27/2022 14:14 /es/ ANJALI RUSS RN REGISTERED NURSE 09/27/2022 ADDENDUM STATUS: COMPLETED Spoke to Jerome Gomez's HHC RN through [facility]. She and Jerome and guardian are wanting to transition payer [facility] to [facility] for home health services. Also, Jerome needs in home PT which [facility] does not provide. Community home health care referral consults placed on chart hold for signature. /pablo/ ANJALI RUSS RN REGISTERED NURSE Signed: 09/27/2022 14:17 Receipt Acknowledged By: 09/27/2022 15:19 /es/ MARIUSZ PHILLIPS MD PHYSICIAN 09/28/2022 07:43 /pablo/ GENOVEVA TORRES RN COMMUNITY DREDGE OPERATOR for [facility] 09/28/2022 ADDENDUM STATUS: COMPLETED In absence of assigned HCC Coordinator, ULYSSES Schofield, alerting HCC Coverage, ULYSSES Mobley to note contents /pablo/ GENOVEVA TORRES RN COMMUNITY DREDGE OPERATOR Signed: 09/28/2022 07:44 09/28/2022 ADDENDUM STATUS: COMPLETED This HCC RN has been assigned coordination of HC services with [facility], no need to alert Rn Itz. Call placed to [facility], ph: [phone], call transferred to Callie Siu RN. Sherron confirms agency can provide PT services but only to VA and Medicare clients. Sherron indicates she is unaware of request for change in payer from [facility] to [facility], transferred call to Jerome's HC RN, Patricia. Left message for Pat requesting return call to this nurse regarding VA auth request and HCC need for agency to accept VA referral in order to transition from [facility] to [facility]. Also attempted call to Nathalie lCine, 's Guardian phone [phone], left generic message on voice mailbox requesting return call to this nurse. /es/ GENOVEVA TORRES, TRANSFER MACHINE OPERATOR DREDGE OPERATOR Signed: 09/28/2022 08:38 PENNY RITTER [facility]
--- OUTSIDE RECORDS SUMMARY | 2023-08-13 12:29 | XMS_ITS | Encounter Summary ---
Author Name Department of Vetera Affairs Organization Department of Vetera ns Affairs Address [address] [place] [address] Support Name Relationship Address Phone DONNA SIRIA Next of Kin [address] [place], [place] [phone] SIRIA THOMPSON Emergency Contact [address] [id number] NATHALIE DING Emergency Contact Unknown Insurance Providers: [...] PART B Sep 26, 2012 PART B [id number] [facility] [phone] JUAN THOMPSON JR PATIENT MEDICARE (WNR) MEDICARE (M) PART A Sep 26, 2012 PART A [id number] [phone] JUAN THOMPSON JR PATIENT Selected Encounter This section includes the information on record at [place] for the Encounter. Date/Time Encounter Type Encounter Description Reason Pro vider Source December 14, 2022 08:19 AM Outpatient Encounter TELEPHONE TRIAGE IHE Encounter [...] Date/Time Appointment Type Appointme nt Facility Name Dec 28, 2022 10:30 AM [place] [facility] Dec 31, 2022 09:00 AM [place] [facility] Jan 16, 2023 10:00 AM [place] [facility] Jan 17, 2023 10:00 AM [place] [facility] Feb 13, 2023 01:45 PM [place] [facility] Feb 13, 2023 03:15 PM [place] [facility] Feb 25, 2023 09:15 AM [place] [facility] Feb 25, 2023 09:30 AM [place] [facility] Feb 25, 2023 11:00 AM [place] [facility] Mar 07, 2023 08:30 AM [place] [facility] Mar 31, 2023 07:00 AM [place] [facility] Apr 19, 2023 10:30 AM [place] [facility] May 14, 2023 10:00 AM [place] [facility] May 20, 2023 08:00 [facility] Social History: Smoking Status (Most current) and [...] 15, 2022 09:00 AM VA-TOBACCO FORMER USER [facility] Tobacco Use History This section includes a history of the smoking, or tobacco-related health factors, that were collected on or before the date of the Encounter. The data comes from the [place] facility where the Encounter took place. Date/Time Smoking Status/Tobacco Use Comment [facility] Aug 15, 2022 09:00 AM VA-TOBACCO QUIT 15 YRS OR MORE [facility] Aug 21, 2021 01:00 PM VA-TOBACCO FORMER USER [facility] Aug 21, 2021 01:00 PM VA-TOBACCO QUIT 15 YRS OR MORE [facility] Jul 09, 2018 08:58 AM VA-TOBACCO FORMER USER [facility] Jul 09, 2018 08:58 AM VA-TOBACCO QUIT 15 YRS OR MORE [facility] Jul 18, 2017 09:58 AM FORMER TOBACCO USER 7Y OR GREATE R [facility] Aug 14, 2016 10:59 AM FORMER TOBACCO USER 7Y OR GREATE R [facility] Jun 29, 2015 02:03 PM FORMER TOBACCO USER 7Y OR GREATE R [facility] Jan 06, 2014 03:04 PM FORMER TOBACCO USER 7Y OR GREATE R [facility] Jan 04, 2012 08:36 AM FORMER TOBACCO USER 7Y OR GREATE R [facility] Radiology Reports: +/- 30 days [...] Hospital facilities. Date/Time Radiology Report Provider Source November 27, 2022 01:02 PM DXA BONE DENSITY: JUAN THOMPSON [id number] -[id number] M Exm Date: NOVEMBER 27, 2022@13:02 Req Phys: DHOLE,ABBY K Pat Loc: [facility] METABOLIC EVAL CONSULT 3D Img Loc: NUC MED Service: Unknown (Case [id number] COMPLETE) DXA BONE DENSITY AXIAL (NM Detailed) CPT:62484 Reason for Study: r/o osteoporosis (Case 1253 COMPLETE) TECHNICAL CALC OF TBS (TRABECULAR(NM Detailed) CPT:37684 Clinical History: IS NOT under investigation for COVID-19 or is COVID-19 negative Has history of nora-en-y bypass; evaluated in endocrine clinic, ensure no osteoporosis/penia Responsible provider name and phone number to notify for critical findings if other than user placing the order and pager listed below: User placing orders pager: [phone] LAST CREATININE 1.1 (08/28/22) Report Status: Verified Date Reported: NOVEMBER 28, 2022 Date Verified: NOVEMBER 28, 2022 Craps Manager E-Sig:/ES/ABDOULAYE RIZVI MD Report: DXA BONE DENSITY SCAN INDICATION: Rule out osteoporosis. Has history of Nora-en-Y bypass.. COMPARISONS: DXA Scan(s) 12/05/2017. CLINICAL INFORMATION: No additional clinical information. MAINTENANCE ADVISOR: [employer]. Model: [employer] A. TECHNIQUE/LIMITATIONS: The technical quality of the [...] Staff: ABDOULAYE RIZVI MD, STAFF NUCLEAR RADIOLOGIST (Craps Manager) /ABDOULAYE SALVADOR [facility] Encounter Notes: All associated encounter notes This section contains the clinical notes associated to the Encounter. Date/Time Encounter Note(s) Provider Source December 14, 2022 08:19 AM ADMINISTRATIVE NOT E: LOCAL TITLE: CCC: SCHEDULING ADMINISTRATION STANDARD TITLE: ADMINISTRATIVE NOTE DATE OF NOTE: DECEMBER 14, 2022@08:19 ENTRY DATE: DECEMBER 14, 2022@08:19:13 AUTHOR: LUCRETIA LINARES EXP COSIGNER: URGENCY: STATUS: COMPLETED CCC: SCHEDULING ADMINISTRATION Has [facility] and [facility] for knee injection for . Nathalie declined offer of triage RNs. Please call Nathalie or for scheduling. Phone number verified as correct. [phone] /es/ GINO LINARES SAP SD ANALYST Signed: 12/14/2022 08:22 Receipt Acknowledged By: 12/14/2022 09:34 /pablo/ KAMAR VARELA PA-C PHYSICIAN RADIOLOGY DIRECTOR 12/14/2022 ADDENDUM STATUS: COMPLETED order placed for follow up /pablo/ KAMAR VARELA PA-C PHYSICIAN RADIOLOGY DIRECTOR Signed: 12/14/2022 09:35 Receipt Acknowledged By: * AWAITING SIGNATURE * WILMAN GILL THERES A A [facility]
--- OUTSIDE RECORDS SUMMARY | 2023-08-13 12:30 | XMS_ITS | Encounter Summary ---
Author Name Department of Vetera Affairs Organization Department of Vetera ns Affairs Address [address] [place] [address] Support Name Relationship Address Phone SIRIA THOMPSON Next of Kin [address] [place], [place] [id number] SIRIA THOMPSON Emergency Contact [address] [place] [id number] NATHALIE DING Emergency Contact Unknown [phone] Insurance Providers: All historical and current Section [...] PART A Sep 26, 2012 PART A [id number] [facility] [phone] JUAN THOMPSON JR PATIENT MEDICARE (WNR) MEDICARE (M) PART B Sep 26, 2012 PART B [id number] JUAN THOMPSON JR PATIENT Selected Encounter This section includes the information on [place] at [place] for the Encounter. Date/Time Encounter Type Encounter Description Reason Pro vider Source Jan 04, 2023 01:33 PM Outpatient Encounter OPHTHALMOLOGY IHE Encounter Template Text not used by [...] 20 appointments. The data comes from all [facility]. Appointment Date/Time Appointment Type Appointme nt Facility Name Jan 16, 2023 10:00 AM AM[facility]ULATORY [facility]ATRY [facility] Jan 17, 2023 10:00 AM AMBULATORY - PSYCHIATRY [facility] Feb 13, 2023 01:45 PM AMBULATORY - SURGERY [facility] Feb 13, 2023 03:15 PM AMBULATORY - NONE [facility] Feb 25, 2023 09:15 AM [facility] Feb 25, 2023 09:30 AM [facility] Feb 25, 2023 11:00 AM [facility] Mar 07, 2023 08:30 AM [facility] Mar 31, 2023 07:00 AM AMBULATORY - NONE [facility] Apr 19, 2023 10:30 AM AMBULATORY - SURGERY [facility] May 14, 2023 10:00 AM AMBULATORY - [facility]YCHIATRY [facility] May 20, 2023 08:00 AM AMBULATORY - [facility]YCHIATRY [facility] Jun 17, 2023 08:30 AM AMBULATORY - REHAB MEDICIN E [facility] Jun 21, 2023 05:10 PM AMBULATORY - REHAB [facility] Active, Pending, and Scheduled Orders This section includes a listing of several types of active, pending, and scheduled orders, including clinic medications orders, diagnostic test orders, procedure orders and consult orders; where the start date of the order is 45 days before the date of the Encounter or 45 days after the date of theEncounter. The data comes from all [facility]. Test Date/Time Test Type Test Details Facility Name Feb 13, 2023 12:00 AM Laboratory - Blood Bank Order TYPE & SCREEN - LAB BLOOD SP [facility] Social History: Smoking Status (Most current) and Tobacco Use (All prior to encounter date) This section includes the most current, and the historical, smoking and tobacco- related health factors from the [place] facility where the Encounter took place. Current Smoking Status This section includes the most current smoking, or tobacco-related health factor, from the [place] facility where the Encounter took place. Date/Time Current Smoking Status Kirstie woods Aug 15, 2022 09:00 AM VA-TOBACCO FORMER USER [facility] Tobacco Use History This section includes a history of the smoking, or tobacco-related health factors, that were collected on or before the date of the Encounter. The data comes from the [place] facility where the Encounter took place. Date/Time Smoking Status/Tobacco Use Comment F acility Aug 15, 2022 09:00 AM VA-TOBACCO QUIT 15 YRS OR MORE [facility] Aug 21, 2021 01:00 PM VA-TOBACCO FORMER USER [facility] Aug 21, 2021 01:00 PM VA-TOBACCO QUIT 15 YRS OR MORE [facility] Jul 09, 2018 08:58 AM VA-TOBACCO FORMER USER [facility] Jul 09, 2018 08:58 AM VA-TOBACCO QUIT 15 YRS OR MORE [facility] Jul 18, 2017 09:58 AM FORMER TOBACCO USER 7Y OR GREATE R [facility] Aug 14, 2016 10:59 AM FORMER TOBACCO USER 7Y OR GREATE R [facility] Jun 29, 2015 02:03 PM FORMER TOBACCO USER 7Y OR GREATE R [facility] Jan 06, 2014 03:04 PM FORMER TOBACCO USER 7Y OR GREATE R [facility] Jan 04, 2012 08:36 AM FORMER TOBACCO USER 7Y OR GREATE R [facility] Encounter Notes: All associated encounter notes This section contains the clinical notes associated to the Encounter. Date/Time Encounter Note(s) Provider Source Jan 04, 2023 01:33 PM REPORT OF CONTACT: LOCAL TITLE: APPOINTMENT SCHEDULING NOTE STANDARD TITLE: REPORT OF CONTACT DATE OF NOTE: JAN 04, 2023@13:33 ENTRY DATE: JAN 04, 2023@13:33:59 AUTHOR: ALTHEA SOLOMON EXP COSIGNER: URGENCY: STATUS: COMPLETED Attempted to schedule Return to clinic (RTC) Contact attempt made to 1st attempt Telephone 2nd attempt Letter Disposition order request after 01/18/23 Unable to leave voice mail Other: Voicemail is full. If [place] calls back, schedule appt for: PID: 03/04/23 RTC: 12/31/22 2-3 M general clinic [id number] MAC APR /pablo/ ALTHEA SOLOMON ADVANCED MSA Signed: 01/04/2023 13:35 ALTHEA SOLOMON [facility]
--- OUTSIDE RECORDS SUMMARY | 2023-08-13 12:30 | XMS_ITS | Encounter Summary ---
Author Name Department of Vetera Affairs Organization Department of Vetera ns Affairs Address [address] [place] [address] Support Name Relationship Address Phone DONNA SIRIA Next of Kin [address] [place], [place] [phone] SIRIA THOMPSON Emergency Contact [address] [place] [id number] NATHALIE DING Emergency Contact Unknown Insurance Providers: [...] PART B Sep 26, 2012 PART B [id number] [facility] [phone] JUAN THOMPSON JR PATIENT MEDICARE (WNR) MEDICARE (M) PART A Sep 26, 2012 PART A [id number] [phone] JUAN THOMPSON JR PATIENT Selected Encounter This section includes the information on record at [place] for the Encounter. Date/Time Encounter Type Encounter Description Reason Pro vider Source December 17, 2022 08:50 AM Outpatient Encounter ORTHO/JOINT SURG IHE Encounter Template Text not used by [place] Plan of Treatment: Future Appointments (+ 6 months) and Future Tests (+/- 45 days) The Plan of Treatment section includes future care activities for the patient from all [place] treatmentfacilities. This section includes future appointments and future orders which are active, pending or scheduled. Future Appointments This section includes appointments that were scheduled to occur 6 months from the date of the Encounter, up to a maximum of 20 appointments. The data comes from all [place] treatment facilities. Appointment Date/Time Appointment Type Appointme nt Facility Name Dec 28, 2022 10:30 AM [facility] Dec 31, 2022 09:00 AM [facility] Jan 16, 2023 10:00 AM [facility] [place] [facility] [place] [facility] Jan 17, 2023 10:00 AM [facility] Feb 13, 2023 01:45 PM [facility] Feb 13, 2023 03:15 PM [facility] Feb 25, 2023 09:15 AM [facility] Feb 25, 2023 09:30 AM [facility] Feb 25[facility] 2023 11:00 AM [facility] Mar 07, 2023 08:30 AM [facility] Mar 31, 2023 07:00 AM [facility] [facility] Apr 19, 2023 10:30 AM [facility] May 14, 2023 10:00 AM [facility] May 20, 2023 08:00 AM AMBULATORY - PS[facility]CH[facility]ATRY [facility] Jun 17, 2023 08:30 AM AMBULATORY - REHAB MEDICIN E [facility] Social History: Smoking Status (Most current) and Tobacco Use (All prior to encounter date) This section includes the most current, and the historical, smoking and tobacco- related health factors from the [place] facility where the Encounter took place. Current Smoking Status This section includes the most current smoking, or tobacco-related health factor, from the [place] facility where the Encounter took place. Date/Time Current Smoking Status Comment Aj ity Aug 15, 2022 09:00 AM VA-TOBACCO FORMER USER [facility] Tobacco Use History This section includes a history of the smoking, or tobacco-related health factors, that were collected on or before the date of the Encounter. The data comes from the [place] facility where the Encounter took place. Date/Time Smoking Status/Tobacco Use Comment F acility Aug 15, 2022 09:00 AM VA-TOBACCO QUIT 15 YRS OR MORE [facility] Aug 21, 2021 01:00 PM VA-TOBACCO FORMER USER [facility] Aug 21, 2021 01:00 PM VA-TOBACCO QUIT 15 YRS OR MORE [facility] Jul 09, 2018 08:58 AM VA-TOBACCO FORMER USER [facility] Jul 09, 2018 08:58 AM VA-TOBACCO QUIT 15 YRS OR MORE [facility] Jul 18, 2017 09:58 AM FORMER TOBACCO USER 7Y OR GREATE R [facility] Aug 14, 2016 10:59 AM FORMER TOBACCO USER 7Y OR GREATE R [facility] Jun 29, 2015 02:03 PM FORMER TOBACCO USER 7Y OR GREATE R [facility] Jan 06, 2014 03:04 PM FORMER TOBACCO USER 7Y OR GREATE R [facility] Jan 04, 2012 08:36 AM FORMER TOBACCO USER 7Y OR GREATE R [facility] Radiology Reports: +/- 30 days of [...] the Encounter. The data comes from all [facility] facilities. Date/Time Radiology Report Provider Source November 27, 2022 01:02 PM DXA BONE DENSITY: JUAN THOMPSON [id number] M Exm Date: NOVEMBER 27, 2022@13:02 Req Phys: DHOLE,ATHARVA K Pat Loc: [facility] METABOLIC EVAL CONSULT 3D Img Loc: NUC MED Service: Unknown (Case [id number] COMPLETE) DXA BONE DENSITY AXIAL (NM Detailed) CPT:56690 Reason for Study: r/o osteoporosis (Case 1253 COMPLETE) TECHNICAL CALC OF TBS (TRABECULAR(NM Detailed) CPT:65367 Clinical History: [place] IS NOT under investigation for COVID-19 or is COVID-19 negative Has history of ina-en-y bypass; evaluated in endocrine clinic, ensure no osteoporosis/penia Responsible provider name and phone number to notify for critical findings if other than user placing the order and pager listed below: User placing orders pager: [phone] LAST CREATININE 1.1 (08/28/22) Report Status: Verified Date Reported: NOVEMBER 28, 2022 Date Verified: NOVEMBER 28, 2022 Spray Rig Operator E-Sig:/ES/ABDOULAYE RIZVI MD Report: DXA BONE DENSITY SCAN INDICATION: Rule out osteoporosis. Has history of Ina-en-Y bypass.. COMPARISONS: DXA Scan(s) 12/05/2017. CLINICAL INFORMATION: No additional clinical information. CLINICAL SERVICES PROFESSIONAL: [employer]. Model: [employer]on[employer] A. TECHNIQUE/LIMITATIONS: The technical quality of the [...] Staff: ABDOULAYE RIZVI MD, STAFF NUCLEAR RADIOLOGIST (Magdiel) /ABDOULAYE SALVADOR [facility] Encounter Notes: All associated encounter notes This section contains the clinical notes associated to the Encounter. Date/Time Encounter Note(s) Provider Source December 17, 2022 08:50 AM REPORT OF CONTACT: LOCAL TITLE: APPOINTMENT SCHEDULING NOTE STANDARD TITLE: REPORT OF CONTACT DATE OF NOTE: DECEMBER 17, 2022@08:50 ENTRY DATE: DECEMBER 17, 2022@08:50:52 AUTHOR: WILMAN GILL COSIGNER: URGENCY: STATUS: COMPLETED Attempted to schedule Return to clinic (RTC) Contact attempt made to 1st attempt Telephone 2nd attempt Letter Left message on voice mail to call back to this number [phone] If calls back, schedule appt for: Return to [facility]THO [facility] RTC on or around ( Jan 13, 2023 ) for a total of 1 appointment(s) knee f/u /pablo/ WILMAN GILL ADVANCED MSA Signed: 12/17/2022 08:53 WILMAN GILL [facility]
--- OUTSIDE RECORDS SUMMARY | 2023-08-13 12:30 | XMS_ITS | Encounter Summary ---
Author Name Department of Vetera Affairs Organization Department of Vetera ns Affairs Address [address] [place] [address] Support Name Relationship Address Phone SIRIA THOMPSON Next of Kin [address] [place], [place] [phone] SIRIA THOMPSON Emergency Contact [address] [place] [phone] NATHALIE DING Emergency Contact Unknown Insurance Providers: [...] PART A Sep 26, 2012 PART A [id number] [facility] [phone] JUAN THOMPSON JR PATIENT MEDICARE (WNR) MEDICARE (M) PART B Sep 26, 2012 PART B [id number] JUAN THOMPSON JR PATIENT Selected Encounter This section includes the information on record at [place] for the Encounter. Date/Time Encounter Type Encounter Description Reason Pro vider Source Dec 28, 2022 10:30 AM Outpatient Encounter TELEPHONE/MEDICINE E Encounter Template Text not used by [place] [...] The data comes from all [place] treatment [facility]. Appointment Date/Time Appointment Type Appointme nt Facility Name Dec 31, 2022 09:00 AM [place] [facility] Jan 16, 2023 10:00 AM [place] [facility] Jan 17, 2023 10:00 AM [place] [facility] Feb 13, 2023 01:45 PM [place] [facility] Feb 13, 2023 03:15 PM [place] [facility] Feb 25, 2023 09:15 AM [facility] Feb 25, 2023 09:30 [facility] Feb 25[facility] 2023 11:00 AM [facility] Mar 07, 2023 08:30 AM [facility] Mar 31, 2023 07:00 AM [place] [place] [facility] Apr 19, 2023 10:30 AM [place] [facility] May 14, 2023 10:00 AM [place] [place] [facility] May 20, 2023 08:00 AM [facility] Jun 17, 2023 08:30 AM AMBULATORY - REHAB MEDICIN E [facility] Jun 21, 2023 05:10 PM AMBULATORY - REHAB MEDICIN E [facility] Social History: Smoking Status (Most current) and Tobacco Use (All prior to encounter date) This section includes the most current, and the historical, smoking and tobacco- related health factors from the [place] facility where the Encounter took place. Current Smoking Status This section includes the most current smoking, or tobacco-related health factor, from the [place] facility where the Encounter took place. Date/Time Current Smoking Status Comment Facil ity Aug 15, 2022 09:00 AM [place]-TOBAC[place] QUIT 15 YRS OR MORE [facility] Tobacco Use History This section includes a history of the smoking, or tobacco-related health factors, that were collected on or before the date of the Encounter. The data comes from the [place] facility where the Encounter took place. Date/Time Smoking Status/Tobacco Use Comment F acility Aug 15, 2022 09:00 AM [place]-TO[place] QU[place] 15 YRS OR MORE [facility] Aug 21, 2021 01:00 PM VA-TOBACCO FORMER USER [facility] Aug 21, 2021 01:00 PM VA-TOBACCO QUIT 15 YRS OR MORE [facility] Jul 09, 2018 08:58 AM VA-TOBACCO FORMER USER [facility] Jul 09, 2018 08:58 AM VA-TOBACCO QUIT 15 YRS OR MORE [facility] Jul 18, 2017 09:58 AM FORMER TOBACCO USER 7Y OR GREATE R [facility] Aug 14, 2016 10:59 AM FORMER TOBACCO USER 7Y OR GREATE R [facility] Jun 29, 2015 02:03 PM FORMER TOBACCO USER 7Y OR GREATE R [facility] Jan 06, 2014 03:04 PM FORMER TOBACCO USER 7Y OR GREATE R [facility] Jan 04, 2012 08:36 AM FORMER TOBACCO USER 7Y OR GREATE R [facility] Encounter Notes: All associated encounter notes This section contains the clinical notes associated to the Encounter. Date/Time Encounter Note(s) Provider Source Dec 28, 2022 12:30 PM REPORT OF CONTACT: LOCAL TITLE: PATIENT CONTACT NOTE STANDARD TITLE: REPORT OF CONTACT DATE OF NOTE: DEC 28, 2022@12:30 ENTRY DATE: DEC 28, 2022@12:30:43 AUTHOR: MIGUEL ANGEL WHITLOCK EXP COSIGNER: URGENCY: STATUS: COMPLETED Patient contact Name of Frederick: JUAN THOMPSON JR Name/Relationship of Contact if other than : Date & Time of Contact: Dec@12:30 Type of Contact: Telephone Reason for Contact: Attempted to contact for a scheduled phone follow-up on semaglutide, no answer. Left a voicemail with direct number to call when he is available. /pablo/ MIGUEL ANGEL WHITLOCK RN Metabolic Bus Attendant Signed: 12/28/2022 12:31 MIGUEL ANGEL WHITLOCK [facility]
--- OUTSIDE RECORDS SUMMARY | 2023-08-13 12:30 | XMS_ITS | Encounter Summary ---
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 elements of the figure incomplete. Emotional/Personality Functioning RS Descriptor ---- GDS 3.00 WNL GAI 0.00 WNL DATA SUMMARY: Demographic factors, educational/occupational history, and previous test results indicate a gentleman with at least high average premorbid intellectual abilities. The current profile evidenced variability in performances across domains. Select aspects of verbal memory and executive functioning tasks appeared particularly challenging, though the 's memory performances are not amnestic. Current performances occur in the context of variable attention and engagement. The [place] currently receives support from his guardian and in-home care providers to manage daily functional tasks. He reported variable mood and ongoing visual hallucinations and also exhibited delusional thinking during the appointment; he did not endorse significant symptoms of depression or anxiety on self-report questionnaires. Compared to the previous evaluation, current results suggest declines on tasks of motor speed, attention and cognitive efficiency, verbal fluency, verbal learning, and variability in executive functioning. Other performances were stable. Daily functioning appears to have declined since 2016. Psychiatric symptoms appear to have worsened as he did not endorse hallucinations and there were no signs of delusional thinking in 2016. /pablo/ JAMIE LYLES, PHD, LP, ABPP STAFF NEUROPSYCHOLIGST Signed: 01/10/2023 09:17 Receipt Acknowledged By: 01/11/2023 12:08 /pablo/ USHA PURI MD Staff Psychiatrist 01/11/2023 ADDENDUM STATUS: COMPLETED Reviewed and appreciate the above. Will review MH symptoms at next visit, 01/16. /pablo/ USHA PURI MD Staff Psychiatrist Signed: 01/11/2023 12:09 JAMIE LYLES [facility]
--- OUTSIDE RECORDS SUMMARY | 2023-08-13 12:31 | XMS_ITS | Encounter Summary ---
Author Name Department of Vetera Affairs Organization Department of Vetera ns Affairs Address [address] [place] [address] Support Name Relationship Address Phone SIRIA THOMPSON Next of Kin [address] [place], [place] [id number] SIRIA THOMPSON Emergency Contact [address] [place] [id number] NATHALIE DING Emergency Contact Unknown [phone] Insurance Providers: All historical and current Section [...] PART A Sep 26, 2012 PART A [id number] [facility] [phone] JUAN THOMPSON JR PATIENT MEDICARE (WNR) MEDICARE (M) PART B Sep 26, 2012 PART B [id number] [facility] [phone] JUAN THOMPSON JR PATIENT Selected Encounter This section includes the information on record at [place] for the Encounter. Date/Time Encounter Type Encounter Description Reason Pro vider Source Jan 24, 2023 02:54 PM Outpatient Encounter PSYCHOGERIATRIC - INDIVIDUAL IHE Encounter Template Text not used by [place] Plan of Treatment: Future Appointments (+ 6 [...] Date/Time Appointment Type Appointme nt Facility Name Feb 13, 2023 01:45 PM AMBULATORY - SURGERY [facility] Feb 13, 2023 03:15 PM AMBULATORY - NONE [facility] Feb 25, 2023 09:15 AM AMBULATORY - MEDICINE [facility] Feb 25, 2023 09:30 AM AMBULATORY - MEDICINE [facility] Feb 25, 2023 11:00 AM [facility] Mar 07, 2023 08:30 AM AMBULATORY - MEDICINE [facility] Mar 31, 2023 07:00 AM AMBULATORY - NONE [facility] Apr 19, 2023 10:30 AM AMBULATORY - SURGERY [facility] May 14, 2023 10:00 AM AMBULATORY - PS[place]CHIATRY [place] [facility] May 20, 2023 08:00 AM AMBUL[facility] Jun 17, 2023 08:30 AM AMBULATORY - REHAB MEDICIN [facility] Jun 21, 2023 05:10 PM AMBULATORY - REHAB MEDICIN E [facility] Jul 11, 2023 10:00 AM AMBULATORY - MEDICINE [facility] Jul 11, 2023 11:15 AM AMBULATORY - MEDICINE [facility] Active, Pending, and Scheduled Orders This section includes a listing of several types of active, pending, and scheduled orders, including clinic medications orders, diagnostic test orders, procedure orders and consult orders; where the start date of the order is 45 days before the date of the Encounter or 45 days after the date of theEncounter. The data comes from all [facility]. Test Date/Time Test Type Test Details Facility Name Feb 13, 2023 12:00 AM Laboratory - Blood Bank Order TYPE & SCREEN - LAB BLOOD SP [facility] Lab Results: +/- 30 days of the encounter This section includes the Chemistry and Hematology Lab Results on record with [place] for the patient. Radiology Reports and Pathology Reports are provided separately, in subsequent sections. Lab Results This section contains the Chemistry/Hematology Results that were resulted 30 days before or 30 daysafter the date of the Encounter. Date/Time Source Result Type Result - Unit Interpretation Reference Range Comment Feb 13, 2023 03:07 PM [facility] PROTHROMBIN TIME/INR Specimen Type: PLASMA No comment entered. Ordering Provider: KAMAR VARELA Report Released Date/Time: Feb 13, 2023 01:44 PM Reporting Lab: [facility] [id number] Performing Lab: [facility] [address] .INR 1.3 H 0.8-1.1 .PT 15.5 H 9.4-12.5 Feb 13, 2023 03:07 PM [facility] HEMOGLOBIN A1C Specimen Type: BLOOD Comment: Values obtained from A1C measurements can vary. For typical A1C assays, a reported value of 7.0 could actually be between 6.7 and 7.3 if measured by a reference method. A reported value of 9.0 could actually be between 8.7 and 9.3. Ref: http://www.ngs p.org/CAPdata. asp Ordering Provider: KAMAR VARELA Report Released Date/Time: Feb 13, 2023 01:44 PM Reporting Lab: [facility] [id number] Performing Lab: [facility] [address] HEMOGLOBIN A1C 7.4 H 4.0-6.0 Feb 13, 2023 03:07 PM [facility] BASIC METABOLIC PANEL+MG Specimen Type: PLASMA No comment entered. Ordering Provider: KAMAR VARELA Report Released Date/Time: Feb 13, 2023 01:44 PM Reporting Lab: [facility] [id number] Performing Lab: [facility] [address] CREATININE 1.3 H 0.7-1.2 UREA NITROGEN 16 8-26 GLUCOSE 129 H 70-100 SODIUM 144 136-145 POTASSIUM 3.9 3.5-5.1 CHLORIDE 105 98-107 CO2 32 H 22-29 CALCIUM 9.1 8.4-10.2 MAGNESIUM 1.8 1.6-2.6 ANION GAP 7 5-15 .CREAT EGFR(CKD-EPI) 57 L See_Comment Feb 13, 2023 03:07 PM [facility] ALBUMIN Specimen Type: PLASMA No comment entered. Ordering Provider: KAMAR VARELA Report Released Date/Time: Feb 13, 2023 01:44 PM Reporting Lab: [facility] [address] Performing Lab: [facility] [address] ALBUMIN 3.8 3.5-5.2 Feb 13, 2023 03:07 PM [facility] CBC & DIFF Specimen Type: BLOOD Comment: Automated Differential Performed Ordering Provider: KAMAR VARELA Report Released Date/Time: Feb 13, 2023 01:44 PM Reporting Lab: [facility] [address] Performing Lab: [facility] [address] WBC 7.60 4.0-11.0 RBC 4.50 L 4.6-6.2 HGB 12.6 L 13.5-17.9 HCT 39.7 L 41-54 MCV 88.2 80-100 MCH 28.0 27-33 MCHC 31.7 L 32.0-37.5 PLT 246 150-400 MPV 10.0 7.4-10.4 NEUT 58.9 LYMPHS 28.8 MONO 8.9 EOSINO 2.8 BASO 0.3 RDW 16.1 H 11.5-14.5 ABS LYMPH 2.19 1.0-4.0 ABS MONO 0.68 0.1-1.0 ABS NEUT 4.48 2.0-7.7 ABS EOS 0.21 0-0.5 ABS BASO 0.02 0-0.2 IG(META,MYELO ,PRO) 0.3 ABS IMMATURE GRAN 0.02 0-0.1 IPF 3.0 0-10 Social History: Smoking Status (Most current) and Tobacco Use (All prior to encounter date) This section includes the most current, and the historical, smoking and tobacco- related health factors from the [place] facility where the Encounter took place. Current Smoking Status This section includes the most current smoking, or tobacco-related health factor, from the [place] facility where the Encounter took place. Date/Time Current Smoking Status Comment Aj woods Aug 15, 2022 09:00 AM VA-TOBACCO FORMER USER [facility] Tobacco Use History This section includes a history of the smoking, or tobacco-related health factors, that were collected on or before the date of the Encounter. The data comes from the [place] facility where the Encounter took place. Date/Time Smoking Status/Tobacco Use Comment F accelia Aug 15, 2022 09:00 AM VA-TOBACCO QUIT 15 YRS OR MORE [facility] Aug 21, 2021 01:00 PM VA-TOBACCO FORMER USER [facility] Aug 21, 2021 01:00 PM VA-TOBACCO QUIT 15 YRS OR MORE [facility] Jul 09, 2018 08:58 AM VA-TOBACCO FORMER USER [facility] Jul 09, 2018 08:58 AM VA-TOBACCO QUIT 15 YRS OR MORE [facility] Jul 18, 2017 09:58 AM FORMER TOBACCO USER 7Y OR GREATE R [facility] Aug 14, 2016 10:59 AM FORMER TOBACCO USER 7Y OR GREATE R [facility] Jun 29, 2015 02:03 PM FORMER TOBACCO USER 7Y OR GREATE R [facility] Jan 06, 2014 03:04 PM FORMER TOBACCO USER 7Y OR GREATE R [facility] Jan 04, 2012 08:36 AM FORMER TOBACCO USER 7Y OR GREATE R [facility] Encounter Notes: All associated encounter notes This section contains the clinical notes associated to the Encounter. Date/Time Encounter Note(s) Provider Source Jan 24, 2023 02:55 PM REPORT OF CONTACT: LOCAL TITLE: PATIENT CONTACT NOTE STANDARD TITLE: REPORT OF CONTACT DATE OF NOTE: JAN 24, 2023@14:55 ENTRY DATE: JAN 24, 2023@14:55:10 AUTHOR: BRANNON SAENZ EXP COSIGNER: URGENCY: STATUS: COMPLETED PATIENT CONTACT NOTE Has ADDENDA Patient contact Name of Howard: JUAN THOMPSON JR Name/Relationship of Contact if other than Howard: radiology scheduler Date & Time of Contact: Dec@14:55 Type of Contact: Reason for Contact: Scheduling return to clinic. /pablo/ BRANNON SAENZ [employer] Maker Signed: 01/24/2023 14:56 Receipt Acknowledged By: 01/28/2023 15:29 /es/ USHA PURI MD Staff Psychiatrist 01/25/2023 13:07 /es/ MYLES JOE RN-BSN, MA RN-BSN, MA * AWAITING SIGNATURE * CARMENZA KYLE 01/28/2023 ADDENDUM STATUS: COMPLETED Called number above. Reached voicemail of Josselyn, whom I believe works with patient's [employer]. Left general VM with clinic callback number. I will place RTC order for [address] April Ortega, due to my upcoming departure for [facility]. If patient or [employer] calls back requesting a sooner appointment, then I recommend scheduling [address] Amish Vigil if there is availability. /pablo/ USHA PURI MD Staff Psychiatrist Signed: 01/28/2023 15:31 Receipt Acknowledged By: * AWAITING SIGNATURE * MYLES JOE * AWAITING SIGNATURE * CARMENZA KYLE [facility]
--- OUTSIDE RECORDS SUMMARY | 2023-08-13 12:31 | XMS_ITS | Encounter Summary ---
Author Name Department of Vetera ns Affairs Organization Department of Vetera ns Affairs Address [address] [place] [address] Support Name Relationship Address Phone SIRIA THOMPSON Next of Kin [address] [place], [place] [id number] SIRIA THOMPSON Emergency Contact [address] [place] [id number] KIMBERLY CLINE Emergency Contact Unknown [phone] Insurance Providers: All historical and current Section [...] PART A Sep 26, 2012 PART A [id number] [facility] [phone] JUAN THOMPSON JR PATIENT MEDICARE (WNR) MEDICARE (M) PART B Sep 26, 2012 PART B [id number] [phone] JUAN THOMPSON JR PATIENT Selected Encounter This section includes the information on record at [place] for the Encounter. Date/Time Encounter Type Encounter Description Reason Provider Source Jan 17, 2023 10:00 AM NRPSYC TST EVAL PHYS/QHP 1ST TELEPHONE ICD-10-CM F03.A18 Unspecified dementia, mild, with other behavioral disturb JAMIE LYLES Encounter Template Text not used by [facility] Assessments - Encounter Diagnoses This section includes the primary and secondary diagnoses documented for the Encounter. Date/Time Primary/Secondary Diagnosis Diagnosis Name Provider Source Jan 17, 2023 10:00 AM PRIMARY Unspecified dementia, mild, with other behavioral disturb RAFALJAMIE Jolley [facility] Jan 17, 2023 10:00 AM SECONDARY Bipolar disord, crnt epsd depress, severe, w psych features JAMIE LYLES [facility] Plan of Treatment: Future Appointments (+ 6 months) and Future Tests (+/- 45 days) The Plan of Treatment section includes future care activities for the patient [facility] [place] [facility]. This section includes future appointments and future orders which are active, pending or scheduled. Future Appointments This section includes appointments that were scheduled to occur 6 months from the date of the Encounter, up to a maximum of 20 appointments. The data comes from all [facility]. Appointment Date/Time Appointment Type Appointme nt Facility Name Feb 13, 2023 01:45 PM AMBULATORY - SURGERY [facility] Feb 13, 2023 03:15 PM AMBULATORY - NONE [facility] Feb 25, 2023 09:15 AM AMBULATORY - MEDICINE [facility] Feb 25, 2023 09:30 AM AMBULATORY - MEDICINE [facility] Feb 25, 2023 11:00 AM AMBULATORY - MEDICINE [facility] Mar 07, 2023 08:30 AM AMBULATORY - MEDICINE [facility] Mar 31, 2023 07:00 AM AMBULATORY - NONE [facility] Apr 19, 2023 10:30 AM AMBULATORY - SURGERY [facility] May 14, 2023 10:00 AM AMBULATORY - PSYCHIATRY [facility] May 20, 2023 08:00 AM AMBULATORY - PSYCHIATRY [facility] Jun 17, 2023 08:30 AM AMBULATORY - REHAB MEDICIN [facility] Jun 21, 2023 05:10 PM AMBULATORY - REHAB MEDICIN [facility] Jul 11, 2023 10:00 AM AMBULATORY - MEDICINE [facility] Jul 11, 2023 11:15 AM AMBULATORY - MEDICINE [facility] Active, Pending, and Scheduled Orders This section includes a listing of several types of active, pending, and scheduled orders, including clinic medications orders, diagnostic test orders, procedure orders and consult orders; where the start date of the order is 45 days before the date of the Encounter or 45 days after the date of theEncounter. The data comes from all [facility]. Test Date/Time Test Type Test Details Facility Name Feb 13, 2023 12:00 AM Laboratory - Blood Bank Order TYPE & SCREEN - LAB BLOOD SP [facility] Lab Results: +/- 30 days [...] Range Comment Feb 13, 2023 03:07 PM [facility] PROTHROMBIN TIME/INR Specimen Type: PLASMA No comment entered. Ordering Provider: KAMAR VARELA Report Released Date/Time: Feb 13, 2023 01:44 PM Reporting Lab: [facility] [address] Performing Lab: [facility] [address] .INR 1.3 H 0.8-1.1 .PT 15.5 H 9.4-12.5 Feb 13, 2023 03:07 PM [facility] ALBUMIN Specimen Type: PLASMA No comment entered. Ordering Provider: KAMAR VARELA Report Released Date/Time: Feb 13, 2023 01:44 PM Reporting Lab: [facility] [address] Performing Lab: [facility] [address] ALBUMIN 3.8 3.5-5.2 Feb 13, 2023 03:07 PM [facility] HEMOGLOBIN A1C Specimen Type: BLOOD [...] 13, 2023 01:44 PM Reporting Lab: [facility] [address] Performing Lab: [facility] [address] HEMOGLOBIN A1C 7.4 H 4.0-6.0 Feb 13, 2023 03:07 PM [facility] BASIC METABOLIC PANEL+MG Specimen Type: PLASMA No comment entered. Ordering Provider: KAMAR VARELA Report Released Date/Time: Feb 13, 2023 01:44 PM Reporting Lab: [facility] [address] Performing Lab: [facility] [address] CREATININE 1.3 H 0.7-1.2 UREA NITROGEN 16 8-26 GLUCOSE 129 H 70-100 SODIUM 144 136-145 POTASSIUM 3.9 3.5-5.1 CHLORIDE 105 98-107 CO2 32 H 22-29 CALCIUM 9.1 8.4-10.2 MAGNESIUM 1.8 1.6-2.6 ANION GAP 7 5-15 .CREAT EGFR(CKD-EPI) 57 L See_Comment Feb 13, 2023 03:07 PM [facility] CBC & DIFF Specimen Type: BLOOD Comment: Automated Differential Performed Ordering Provider: KAMAR VARELA Report Released Date/Time: Feb 13, 2023 01:44 PM Reporting Lab: [facility] [address] Performing Lab: [facility] [address] WBC 7.60 4.0-11.0 RBC 4.50 L 4.6-6.2 [...] and tobacco- related health factors from the [place] facility where the Encounter took place. Current Smoking Status This section includes the most current smoking, or tobacco-related health factor, from the [facility] where the Encounter took place. Date/Time Current Smoking Status Comment Facil ity Aug 15, 2022 09:00 AM VA-TOBACCO FORMER USER [facility] Tobacco Use History This section includes a history of the smoking, or tobacco-related health factors, that were collected on or before the date of the Encounter. The data comes from the [place] facility where the Encounter took place. Date/Time Smoking Status/Tobacco Use Comment F acility Aug 15, 2022 09:00 AM VA-TOBACCO QUIT 15 YRS OR MORE [facility] Aug 21, 2021 01:00 PM VA-TOBACCO FORMER USER [facility] Aug 21, 2021 01:00 PM VA-TOBACCO QUIT 15 YRS OR MORE [facility] Jul 09, 2018 08:58 AM VA-TOBACCO FORMER USER [facility] Jul 09, 2018 08:58 AM VA-TOBACCO QUIT 15 YRS OR MORE [facility] Jul 18, 2017 09:58 AM FORMER TOBACCO USER 7Y OR GREATE R [facility] Aug 14, 2016 10:59 AM FORMER TOBACCO USER 7Y OR GREATE R [facility] Jun 29, 2015 02:03 PM FORMER TOBACCO USER 7Y OR GREATE R [facility] Jan 06, 2014 03:04 PM FORMER TOBACCO USER 7Y OR GREATE R [facility] Jan 04, 2012 08:36 AM FORMER TOBACCO USER 7Y OR GREATE R [facility] Encounter Notes: All associated encounter notes This section contains the clinical notes associated to the Encounter. Date/Time Encounter Note(s) Provider Source Jan 17, 2023 10:00 AM NEUROPSYCHOLOGY NO TE: LOCAL TITLE: NEUROPSYCHOLOGY PROGRESS NOTE STANDARD TITLE: NEUROPSYCHOLOGY NOTE DATE OF NOTE: JAN 17, 2023@10:00 ENTRY DATE: JAN 17, 2023@10:59:14 AUTHOR: JAMIE LYLES COSIGNER: URGENCY: STATUS: COMPLETED DATE OF SESSION: 01.17.23 SESSION TYPE/LENGTH: Individual telephone appointment per [place]'s request for audio-only telehealth, 45 minutes, plus call to his guardian to update the treatment plan, 10 minutes LOCATION: Telephone PROCEDURE CODE: [id number] PATIENT CONSENT/EDUCATION: At initial assessment appointment, informed consent was obtained for participation, including risks, benefits, potential complications, and purpose of the evaluation and limits to confidentiality from the [place]'s guardian and from Mr. Thompson. Today, the [place] indicated readiness to learn for the education provided during this session as noted above. He also indicated understanding by asking questions and making appropriate comments. EMERGENCY INFORMATION: Address at time of the session: [address] [address] Names of other individuals present in the home/emergency contact center team lead: no one else in the home, Kimberly Cline (guardian) as emergency contact Contact information for emergency contact: Kimberly Cline [phone] SUMMARY OF SESSION: The reason for neuropsychological evaluation was reviewed along with a simple explanation about how scores were interpreted. Areas assessed were reviewed noting strengths/weaknesses. Diagnosis, etiological considerations, and treatment recommendations as outlined in the Neuropsychology consult note dated 12.31.22 were discussed. SAFETY ASSESSMENT: The [place] reported that suicidal ideation his been present [...] is low and chronic risk is intermediate DSM-5/ICD-10 DIAGNOSIS: Unspecified dementia, mild, with other behavioral disturbance (ICD-10-CM F03.A18) (Primary), Bipolar Disorder, Current Episode Depressed, Severe, with Psychotic Features (ICD-10-CM F31.5) RECOMMENDATIONS/TREATMENT PLAN: 1. MENTAL HEALTH a. The 's presentation on current evaluation appears different than when he last consulted with Dr. Delvalle (i.e., no mention of psychotic symptoms in recent notes). Further evaluation of current symptoms is encouraged; Mr. Thompson has a Psychiatry appointment scheduled on 01.16. b. He is encouraged to focus on sleep hygiene strategies for optimal sleep. c. To optimize brain functioning, overall mental health, and quality of life, the [place] is encouraged to continue to focus on physical activity (as approved by medical providers), mental activity, social activity, and structure/routine. Physical activity in particular has been supported in the literature as possibly protective for brain functioning. 2. MEDICAL FOLLOW-UP: a. The [place] is encouraged to continue to follow-up with the metabolic clinic and any other available resources for management of diabetes. b. Careful management of blood pressure and heart function is encouraged for stroke prevention. 3. FUNCTIONAL SUPPORT: The [place] is well-supported by his guardian and select [...] and Social Work. 4. COMPENSATORY STRATEGIES: The [place] is encouraged to use compensatory strategies to [...] assist with recall e. FOR PROVIDERS: The [place]'s ability to attend and engage is variable. Keeping information concise, checking in frequently to gauge his understanding, and providing written information/recommendations is encouraged. 5. NEUROPSYCHOLOGY FOLLOW-UP: Re-evaluation may be most helpful after further evaluation and hopefully stabilization of the [place]'s psychiatric and medical conditions. Continued assessment through cognitive screening measures is encouraged. /pablo/ JAMIE LYLES, PHD, LP, ABPP STAFF NEUROPSYCHOLIGST Signed: 01/17/2023 11:09 JAMIE LYLES [facility]
--- OUTSIDE RECORDS SUMMARY | 2023-08-13 12:31 | XMS_ITS | Encounter Summary ---
Author Name Department of Vetera Affairs Organization Department of Veter[facility] ns Affairs Address [address] [place] [address] Support Name Relationship Address Phone SIRIA THOMPSON Next of Kin [address] [place], [place] [phone] SIRIA THOMPSON Emergency Contact [address] [place] [phone] NATHALIE DING Emergency Contact Unknown Insurance Providers: [...] PART B Sep 26, 2012 PART B [id number] [facility] [phone] JUAN THOMPSON JR PATIENT MEDICARE (WNR) MEDICARE (M) PART A Sep 26, 2012 PART A [id number] [phone] JUAN THOMPSON JR PATIENT Selected Encounter This section includes the information on record at [place] for the Encounter. Date/Time Encounter Type Encounter Description Reason Pro vider Source Jan 16, 2023 10:00 AM Outpatient Encounter PSYCHOGERIATRIC - INDIVIDUAL IHE Encounter [...] 20 appointments. [facility]. Appointment Date/Time Appointment Type Appointme nt Facility Name Jan 17, 2023 10:00 AM [facility] Feb 13, 2023 01:45 PM AMBULATORY - SURGERY [facility] Feb 13, 2023 03:15 PM AMBULATORY - NONE [facility] Feb 25, 2023 09:15 AM [facility] Feb 25, 2023 09:30 AM [facility] Feb 25, 2023 11:00 AM [facility] Mar 07[facility] 2023 08:30 AM [facility] Mar 31, 2023 07:00 AM [facility] Apr 19, 2023 10:30 AM AMBULATORY - SURGERY [facility] May 14, 2023 10:00 AM AMBULATORY - PSYCHIATRY [facility] May 20, 2023 08:00 AM AMBULATORY - PSYCHIATRY [facility] Jun 17, 2023 08:30 AM AMBULATORY - REHAB MEDICIN E [facility] Jun 21, 2023 05:10 PM AMBULATORY - REHAB MEDICIN E [facility] Jul 11, 2023 10:00 AM AMBULATORY - MEDICINE [facility] Jul 11, 2023 11:15 AM AMBULATORY - MEDICINE [facility] Active, Pending, and Scheduled Orders This section includes a listing of several types of active, pending, and scheduled orders, including clinic medications orders, diagnostic test orders, procedure orders and consult orders; where the start date of the order is 45 days before the date of the Encounter or 45 days after the date of theEncounter. The [facility] comes from all [facility] Test Date/Time Test Type Test Details Facility Name Feb 13, 2023 12:00 AM Laboratory - Blood Bank Order TYPE & SCREEN - LAB BLOOD SP [facility] Lab Results: +/- 30 days of [...] Range Comment Feb 13, 2023 03:07 PM [facility] PROTHROMBIN TIME/INR Specimen Type: PLASMA No comment entered. Ordering Provider: KAMAR VARELA Report Released Date/Time: Feb 13, 2023 01:44 PM Reporting Lab: [facility] [id number] Performing Lab: [facility] [address] .INR 1.3 H 0.8-1.1 .PT 15.5 H 9.4-12.5 Feb 13, 2023 03:07 PM [facility] ALBUMIN Specimen Type: PLASMA No comment entered. Ordering Provider: KAMAR VARELA Report Released Date/Time: Feb 13, 2023 01:44 PM Reporting Lab: [facility] [id number] Performing Lab: [facility] [id number] ALBUMIN 3.8 3.5-5.2 Feb 13, 2023 03:07 PM [facility] HEMOGLOBIN A1C Specimen Type: [...] Feb 13, 2023 01:44 PM Reporting Lab: [facility] [id number] Performing Lab: [facility] [address] HEMOGLOBIN A1C 7.4 H 4.0-6.0 Feb 13, 2023 03:07 PM [facility] BASIC METABOLIC PANEL+MG Specimen Type: PLASMA No comment entered. Ordering Provider: KAMAR VARELA Report Released Date/Time: Feb 13, 2023 01:44 PM Reporting Lab: [facility] [id number] Performing Lab: [facility] [address] CREATININE 1.3 H 0.7-1.2 UREA NITROGEN 16 8-26 GLUCOSE 129 H 70-100 SODIUM 144 136-145 POTASSIUM 3.9 3.5-5.1 CHLORIDE 105 98-107 CO2 32 H 22-29 CALCIUM 9.1 8.4-10.2 MAGNESIUM 1.8 1.6-2.6 ANION GAP 7 5-15 .CREAT EGFR(CKD-EPI) 57 L See_Comment Feb 13, 2023 03:07 PM [facility] CBC & DIFF Specimen Type: BLOOD Comment: Automated Differential Performed Ordering Provider: KAMAR VARELA Report Released Date/Time: Feb 13, 2023 01:44 PM Reporting Lab: [facility] [id number] Performing Lab: [facility] [id number] WBC 7.60 4.0-11.0 RBC 4.50 L 4.6-6.2 [...] 15, 2022 09:00 AM VA-TOBACCO FORMER USER [facility] Tobacco Use History This section includes a history of the smoking, or tobacco-related health factors, that were collected on or before the date of the Encounter. The data comes from the [place] facility where the Encounter took place. Date/Time Smoking Status/Tobacco Use Comment F acility Aug 15, 2022 09:00 AM VA-TOBACCO QUIT 15 YRS OR MORE [facility] Aug 21, 2021 01:00 PM VA-TOBACCO FORMER USER [facility] Aug 21, 2021 01:00 PM VA-TOBACCO QUIT 15 YRS OR MORE [facility] Jul 09, 2018 08:58 AM VA-TOBACCO FORMER USER [facility] Jul 09, 2018 08:58 AM VA-TOBACCO QUIT 15 YRS OR MORE [facility] Jul 18, 2017 09:58 AM FORMER TOBACCO USER 7Y OR GREATE R [facility] Aug 14, 2016 10:59 AM FORMER TOBACCO USER 7Y OR GREATE R [facility] Jun 29, 2015 02:03 PM FORMER TOBACCO USER 7Y OR GREATE R [facility] Jan 06, 2014 03:04 PM FORMER TOBACCO USER 7Y OR GREATE R [facility] Jan 04, 2012 08:36 AM FORMER TOBACCO USER 7Y OR GREATE R [facility] Encounter Notes: All associated encounter notes This section contains the clinical notes associated to the Encounter. Date/Time Encounter Note(s) Provider Source Feb 04, 2023 11:46 AM REPORT OF CONTACT: LOCAL TITLE: APPOINTMENT SCHEDULING NOTE STANDARD TITLE: REPORT OF CONTACT DATE OF NOTE: FEB 04, 2023@11:46 ENTRY DATE: FEB 04, 2023@11:46:50 AUTHOR: HARRISON DALLASIGNER: URGENCY: STATUS: COMPLETED APPOINTMENT SCHEDULING NOTE Has ADDENDA Attempted to schedule Return to clinic (RTC) Left [facility] [place] pt to call [phone]. Sent letter. /pablo/ HARRISON DALLAS AIRCRAFT ENGINE MECHANIC OVERHAUL Signed: 02/04/2023 11:47 02/05/2023 ADDENDUM STATUS: COMPLETED 3rd Attempt- Called to (re)schedule appointment with provider. No answer, LVM to call [phone]. /pablo/ HARRISON DALLAS AIRCRAFT ENGINE MECHANIC OVERHAUL Signed: 02/05/2023 08:46 HARRISON DALLAS [facility] Jan 17, 2023 07:47 AM REPORT OF CONTACT: LOCAL TITLE: APPOINTMENT SCHEDULING NOTE STANDARD TITLE: REPORT OF CONTACT DATE OF NOTE: JAN 17, 2023@07:47 ENTRY DATE: JAN 17, 2023@07:47:38 AUTHOR: HARRISON DALLAS EXP COSIGNER: URGENCY: STATUS: COMPLETED APPOINTMENT SCHEDULING NOTE Has ADDENDA Attempted to schedule Return to clinic (RTC) Mailbox is full. Sent letter. /pablo/ HARRISON DALLAS AIRCRAFT ENGINE MECHANIC OVERHAUL Signed: 01/17/2023 07:48 01/18/2023 ADDENDUM STATUS: COMPLETED 3rd Attempt- Called to (re)schedule appointment with provider. No answer. Mailbox is full. /pablo/ HARRISON DALLAS AIRCRAFT ENGINE MECHANIC OVERHAUL Signed: 01/18/2023 11:12 01/21/2023 ADDENDUM STATUS: COMPLETED 4th Attempt- Called to (re)schedule appointment with provider. No answer, LVM to call [phone]. No further attempts will be made to contact . /pablo/ HARRISON DALLAS AIRCRAFT ENGINE MECHANIC OVERHAUL Signed: 01/21/2023 13:47 HARRISON DALLAS [facility] Jan 16, 2023 03:33 PM NO SHOW NOTE: LOCAL TITLE: NO SHOW NOTE STANDARD TITLE: NO SHOW NOTE DATE OF NOTE: JAN 16, 2023@15:33 ENTRY DATE: JAN 16, 2023@15:33:22 AUTHOR: USHA PURI EXP COSIGNER: URGENCY: STATUS: COMPLETED NO SHOW NOTE Has ADDENDA Patient did not appear for scheduled appointment. Risk factors: age, gender, race, mental health diagnosis, history of suicide attempt, hx chronic SI, strained relationship with son per prior reports. Protective factors: established connection with the mental health clinic, motivated to improve mental and physical health, positive connection with legal guardian, safe and supportive living situation, absence of current suicide intent or plan at 12/31/22 visit. Clinicial Judgment of Risk: Low acute risk. Intermediate chronic risk. Plan Based on Clinician Judgment of Risk: Called patient 2x during scheduled appt time, at [phone]. Reached identified voicemail, left message explaining reason for call and provided clinic callback number. ------ Request Ms. Quispe please attempt followup outreach per No Show protocol. Recommend also trying to reach Guardian if pt does not answer. He is scheduled for neuropsych feedback tomorrow w/ Dr. Lyles, will alert as FYI. /pablo/ USHA PURI MD Staff Psychiatrist Signed: 01/16/2023 15:36 Receipt Acknowledged By: 01/16/2023 15:40 /es/ JAMIE LYLES, PHD, LP, ABPP STAFF NEUROPSYCHOLIGST 01/18/2023 09:33 /aneesh QUISPE PERFECT BINDER SETTER NURSE 01/16/2023 ADDENDUM STATUS: COMPLETED Please víctor today's visit w/ Dr. Puri as No Show. /pablo/ USHA PURI MD Staff Psychiatrist Signed: 01/16/2023 15:37 Receipt Acknowledged By: 01/17/2023 07:47 /pablo/ HARRISON DALLAS AIRCRAFT ENGINE MECHANIC OVERHAUL 01/17/2023 ADDENDUM STATUS: COMPLETED Attempt made to contact pt about his missed MH appointment, but the call went straight to voicemail and the mailbox is full. Rock Crushing Machine Operator called his son, Siria who stated pt called him yesterday, but has not heard from him today. Rock Crushing Machine Operator provided Siria with the MH clinic number to be given to his dad for rescheduling if he is interested. /aneesh QUISPE RN STAFF NURSE Signed: 01/17/2023 09:47 01/18/2023 ADDENDUM STATUS: COMPLETED Second attempt made to contact pt about his missed appointment. Called x2, no answer. Left a voicemail requesting to call back at [phone] for rescheduling. /aneesh QUISPE RN STAFF NURSE Signed: 01/18/2023 09:30 USHA PURI [facility]
--- OUTSIDE RECORDS SUMMARY | 2023-08-13 12:32 | XMS_ITS | Encounter Summary ---
Author Name Department of Vetera Affairs Organization Department of Vetera ns Affairs Address [address] [place] [address] Support Name Relationship Address Phone SIRIA THOMPSON Next of Kin [address] [place], [place] [phone] SIRIA THOMPSON Emergency Contact [address] [place] [id number] NATHALIE DING Emergency Contact Unknown Insurance Providers: [...] PART A Sep 26, 2012 PART A [id number] [facility] [phone] JUAN THOMPSON JR PATIENT MEDICARE (WNR) MEDICARE (M) PART B Sep 26, 2012 PART B [id number] [phone] JUAN THOMPSON JR PATIENT Selected Encounter This section includes the information on record at [place] for the Encounter. Date/Time Encounter Type Encounter Description Reason Pro vider Source Jan 29, 2023 01:34 PM Outpatient Encounter TELEPHONE/MEDICINE E Encounter Template Text not used by [place] Plan of Treatment: Future Appointments (+ 6 months) and Future Tests (+/- 45 days) The Plan of Treatment section includes future care activities for the patient from all [place] treatmentfacilities. This section includes future appointments and future orders which are active, pending or scheduled. Future Appointments This section includes appointments that were scheduled to occur 6 months from the date of the Encounter, up to a maximum of 20 appointments. The data comes from all [facility]. Appointment Date/Time Appointment Type Appointme nt Facility Name Feb 13, 2023 01:45 PM AMBULATORY - SURGERY [facility] Feb 13, 2023 03:15 PM AMBULATORY - NONE [facility] Feb 25, 2023 09:15 AM AMBULATORY - MEDICINE [facility] Feb 25, 2023 09:30 AM [facility] Feb 25, 2023 11:00 AM [facility] Mar 07, 2023 08:30 AM AMBULATORY - MEDICINE [facility] Mar 31, 2023 07:00 AM AMBULATORY - NONE [facility] Apr 19, 2023 10:30 AM AMBULATORY - SURGERY [facility] May 14, 2023 10:00 AM AMBULATORY - [place]CHIATRY [place] [facility] May 20, 2023 08:00 AM AMBULATORY - PSYCHIATRY [facility] Jun 17, 2023 08:30 AM AMBULATORY - REHAB MEDICIN E [facility] Jun 21, 2023 05:10 PM AMBULATORY - REHAB MEDICIN E [facility] Jul 11, 2023 10:00 AM AMBULATORY - MEDICINE [facility] Jul 11, 2023 11:15 AM AMBULATORY - MEDICINE [facility] Active, Pending, and Scheduled Orders This section includes a listing of several types of active, pending, and scheduled orders, including clinic medications orders, diagnostic test orders, procedure orders and consult orders; where the start date of the order is 45 days before the date of the Encounter or 45 days after the date of theEncounter. The data comes from all [facility]. Test Date/Time Test Type Test Details Facility Name Feb 13, 2023 12:00 AM Laboratory - Blood Bank Order TYPE & SCREEN - LAB BLOOD SP [facility] Lab Results: +/- 30 days of the encounter This section includes the Chemistry and Hematology Lab Results on record with [place] for the patient. Radiology Reports and Pathology Reports are provided separately, in subsequent sections. Lab Results This section contains the Chemistry/Hematology Results that were resulted 30 days before or 30 daysafter the date of the Encounter. Date/Time Source Result Type Result - Unit Interpretation Reference Range Comment Feb 13, 2023 03:07 PM [facility] HEMOGLOBIN A1C Specimen Type: BLOOD Comment: Values [...] 13, 2023 01:44 PM Reporting Lab: [facility] [id number] Performing Lab: [facility] [address] HEMOGLOBIN A1C 7.4 H 4.0-6.0 Feb 13, 2023 03:07 PM [facility] ALBUMIN Specimen Type: PLASMA No comment entered. Ordering Provider: KAMAR VARELA Report Released Date/Time: Feb 13, 2023 01:44 PM Reporting Lab: [facility] [id number] Performing Lab: [facility] [address] ALBUMIN 3.8 3.5-5.2 Feb 13, 2023 03:07 PM [facility] PROTHROMBIN TIME/INR Specimen Type: PLASMA No comment entered. Ordering Provider: KAMAR VARELA Report Released Date/Time: Feb 13, 2023 01:44 PM Reporting Lab: [facility] [id number] Performing Lab: [facility] [address] .INR 1.3 H 0.8-1.1 .PT 15.5 H 9.4-12.5 Feb 13, 2023 03:07 PM [facility] BASIC METABOLIC PANEL+MG Specimen Type: PLASMA No comment entered. Ordering Provider: KAMAR VARELA Report Released Date/Time: Feb 13, 2023 01:44 PM Reporting Lab: [facility] [id number] Performing Lab: [facility] [address] CREATININE 1.3 H 0.7-1.2 UREA NITROGEN 16 8-26 GLUCOSE 129 H 70-100 SODIUM 144 136-145 POTASSIUM 3.9 3.5-5.1 CHLORIDE 105 98-107 CO2 32 H 22-29 CALCIUM 9.1 8.4-10.2 MAGNESIUM 1.8 1.6-2.6 ANION GAP 7 5-15 .CREAT EGFR(CKD-EPI) 57 L See_Comment Feb 13, 2023 03:07 PM [facility] CBC & DIFF Specimen Type: BLOOD Comment: Automated Differential Performed Ordering Provider: KAMAR VARELA Report Released Date/Time: Feb 13, 2023 01:44 PM Reporting Lab: [facility] [id number] Performing Lab: [facility] [address] WBC 7.60 4.0-11.0 RBC 4.50 L 4.6-6.2 [...] and tobacco- related health factors from the [place] facility where the Encounter took place. Current Smoking Status This section includes the most current smoking, or tobacco-related health factor, from the [place] facility where the Encounter took place. Date/Time Current Smoking Status Comment Aj ity Aug 15, 2022 09:00 AM [place]-TOBAC[place] QUIT 15 YRS OR MORE [facility] Tobacco Use History This section includes a history of the smoking, or tobacco-related health factors, that were collected on or before the date of the Encounter. The data comes from the [place] facility where the Encounter took place. Date/Time Smoking Status/Tobacco Use Comment F pérez Aug 15, 2022 09:00 AM VA-TOBACCO QUIT 15 YRS OR MORE [facility] Aug 21, 2021 01:00 PM VA-TOBACCO FORMER USER [facility] Aug 21, 2021 01:00 PM VA-TOBACCO QUIT 15 YRS OR MORE [facility] Jul 09, 2018 08:58 AM VA-TOBACCO FORMER USER [facility] Jul 09, 2018 08:58 AM VA-TOBACCO QUIT 15 YRS OR MORE [facility] Jul 18, 2017 09:58 AM FORMER TOBACCO USER 7Y OR GREATE R [facility] Aug 14, 2016 10:59 AM FORMER TOBACCO USER 7Y OR GREATE R [facility] Jun 29, 2015 02:03 PM FORMER TOBACCO USER 7Y OR GREATE R [facility] Jan 06, 2014 03:04 PM FORMER TOBACCO USER 7Y OR GREATE R [facility] Jan 04, 2012 08:36 AM FORMER TOBACCO USER 7Y OR GREATE R [facility] Encounter Notes: All associated encounter notes This section contains the clinical notes associated to the Encounter. Date/Time Encounter Note(s) Provider Source Jan 29, 2023 01:34 PM REPORT OF CONTACT: LOCAL TITLE: APPOINTMENT SCHEDULING NOTE STANDARD TITLE: REPORT OF CONTACT DATE OF NOTE: JAN 29, 2023@13:34 ENTRY DATE: JAN 29, 2023@13:34:14 AUTHOR: AMA LAROSE EXP COSIGNER: URGENCY: STATUS: COMPLETED Attempted to schedule Return to clinic (RTC) Contact attempt made to 2nd attempt Letter - Mailed by Regular [place] Mail to address listed on file. Disposition order request after Jan Unable to leave voice mail Voicemail box is full. Other: Miguel Angel Whitlock RN attempted contact on 12-28-22 and left a voicemail for the patient. If [place] calls back, schedule appt for: Activity: 11/07/2022 09:48 New Order entered by MIGUEL ANGEL WHITLOCK (REGISTERED NURS) Order Text: Return to [facility] METABOLIC PHONE CHINYERE ARORA on or around ( December 10, 2022 ) for a total of 1 appointment(s) brittani f/u /pablo/ AMA LAROSE RN REGISTERED NURSE Signed: 01/29/2023 13:36 AMA LAROSE [facility]
--- OUTSIDE RECORDS SUMMARY | 2023-08-13 12:32 | XMS_ITS | Encounter Summary ---
Author Name [facility] of [facility] Organization [facility] Address [address] [place] [address] Support Name Relationship Address Phone SIRIA THOMPSON Next of Kin [address] [place], [place] [phone] SIRIA THOMPSON Emergency Contact [address] [place] [phone] NATHALIE DING Emergency Contact Unknown Insurance Providers: [...] PART A Sep 26, 2012 PART A [id number] [facility] [phone] JUAN THOMPSON JR PATIENT MEDICARE (WNR) MEDICARE (M) PART B Sep 26, 2012 PART B [id number] JUAN THOMPSON JR PATIENT Selected Encounter This section includes the information on record at [place] for the Encounter. Date/Time Encounter Type Encounter Description Reason Provider Source Feb 13, 2023 01:45 PM OFFICE O/P EST LOW 20-29 MIN ORTHO/JOINT SURG ICD-10-CM M16.11 Unilateral primary osteoarthritis, right hip KAMAR VARELA Encounter Template Text not used by [place] Assessments - Encounter Diagnoses This section includes the primary and secondary diagnoses documented for the Encounter. Date/Time Primary/Secondary Diagnosis Diagnosis Name Provider Source Feb 13, 2023 01:48 PM PRIMARY Unilateral primary osteoarthritis, right hip KAMAR VARELA [facility] Plan of Treatment: Future Appointments (+ 6 months) and Future Tests (+/- 45 days) The Plan of Treatment section includes future care activities for the patient from all [place] [facility]. This section includes future appointments and future orders which are active, pending or scheduled. Future Appointments This section includes appointments that were scheduled to occur 6 months from the date of the Encounter, up to a maximum of 20 appointments. The data comes from all [facility]. Appointment Date/Time Appointment Type Appointme nt Facility Name Feb 25, 2023 09:15 AM [facility] Feb 25, 2023 09:30 AM [facility] Feb 25, 2023 11:00 AM [facility] Mar 07, 2023 08:30 AM [facility] [facility] Mar 31, 2023 07:00 AM [facility] Apr 19, 2023 10:30 AM [facility] [place] [facility] May 14, 2023 10:00 AM [facility] May 20, 2023 08:00 AM [facility] Jun 17, 2023 08:30 AM AMBULATORY - REHAB MEDICIN E [facility] Jun 21, 2023 05:10 PM AMBULATORY - REHAB MEDICIN E [facility] Jul 11, 2023 10:00 AM AMBULATORY - MEDICINE [facility] Jul 11, 2023 11:15 AM AMBULATORY - MEDICINE [facility] Active, Pending, and Scheduled Orders This section includes a listing of several types of active, pending, and scheduled orders, including clinic medications orders, diagnostic test orders, procedure orders and consult orders; where the start date of the order is 45 days before the date of the Encounter or 45 days after the date of theEncounter. The data comes from all [facility]. Test Date/Time Test Type Test Details Facility Name Feb 13, 2023 12:00 AM Laboratory - Blood Bank Order TYPE & SCREEN - LAB BLOOD SP [facility] Lab Results: +/- 30 days of the [...] Range Comment Feb 13, 2023 03:07 PM [facility] PROTHROMBIN TIME/INR Specimen Type: PLASMA No comment entered. Ordering Provider: KAMAR VARELA Report Released Date/Time: Feb 13, 2023 01:44 PM Reporting Lab: [facility] [id number] Performing Lab: [facility] [id number] .INR 1.3 H 0.8-1.1 .PT 15.5 H 9.4-12.5 Feb 13, 2023 03:07 PM [facility] ALBUMIN Specimen Type: PLASMA No comment entered. Ordering Provider: KAMAR VARELA Report Released Date/Time: Feb 13, 2023 01:44 PM Reporting Lab: [facility] [id number] Performing Lab: [facility] [id number] ALBUMIN 3.8 3.5-5.2 Feb 13, 2023 03:07 PM [facility] HEMOGLOBIN A1C Specimen Type: BLOOD Comment: Values [...] Feb 13, 2023 01:44 PM Reporting Lab: [facility] [id number] Performing Lab: [facility] [phone] HEMOGLOBIN A1C 7.4 H 4.0-6.0 Feb 13, 2023 03:07 PM [facility] BASIC METABOLIC PANEL+MG Specimen Type: PLASMA No comment entered. Ordering Provider: KAMAR VARELA Report Released Date/Time: Feb 13, 2023 01:44 PM Reporting Lab: [facility] [phone] Performing Lab: [facility] [address] CREATININE 1.3 H 0.7-1.2 UREA NITROGEN 16 8-26 GLUCOSE 129 H 70-100 SODIUM 144 136-145 POTASSIUM 3.9 3.5-5.1 CHLORIDE 105 98-107 CO2 32 H 22-29 CALCIUM 9.1 8.4-10.2 MAGNESIUM 1.8 1.6-2.6 ANION GAP 7 5-15 .CREAT EGFR(CKD-EPI) 57 L See_Comment Feb 13, 2023 03:07 PM [facility] CBC & DIFF Specimen Type: BLOOD Comment: Automated Differential Performed Ordering Provider: KAMAR VARELA Report Released Date/Time: Feb 13, 2023 01:44 PM Reporting Lab: [facility] [phone] Performing Lab: [facility] [phone] WBC 7.60 4.0-11.0 RBC 4.50 L 4.6-6.2 [...] and tobacco- related health factors from the [place] facility where the Encounter took place. Current Smoking Status This section includes the most current smoking, or tobacco-related health factor, from the [place] facility where the Encounter took place. Date/Time Current Smoking Status Comment Aj woods Aug 15, 2022 09:00 AM VA-TOBACCO FORMER USER [facility] Tobacco Use History This section includes a history of the smoking, or tobacco-related health factors, that were collected on or before the date of the Encounter. The data comes from the [place] facility where the Encounter took place. Date/Time Smoking Status/Tobacco Use Comment F acility Aug 15, 2022 09:00 AM VA-TOBACCO QUIT 15 YRS OR MORE [facility] Aug 21, 2021 01:00 PM VA-TOBACCO FORMER USER [facility] Aug 21, 2021 01:00 PM VA-TOBACCO QUIT 15 YRS OR MORE [facility] Jul 09, 2018 08:58 AM VA-TOBACCO FORMER USER [facility] Jul 09, 2018 08:58 AM VA-TOBACCO QUIT 15 YRS OR MORE [facility] Jul 18, 2017 09:58 AM FORMER TOBACCO USER 7Y OR GREATE R [facility] Aug 14, 2016 10:59 AM FORMER TOBACCO USER 7Y OR GREATE R [facility] Jun 29, 2015 02:03 PM FORMER TOBACCO USER 7Y OR GREATE R [facility] Jan 06, 2014 03:04 PM FORMER TOBACCO USER 7Y OR GREATE R [facility] Jan 04, 2012 08:36 AM FORMER TOBACCO USER 7Y OR GREATE R [facility] Encounter Notes: All associated encounter notes This section contains the clinical notes associated to the Encounter. Date/Time Encounter Note(s) Provider Source Feb 13, 2023 01:56 PM ORTHOPEDIC SURGERY ATTENDING NOTE: LOCAL TITLE: ORTHOPEDIC CLINIC NOTE STANDARD TITLE: ORTHOPEDIC SURGERY ATTENDING NOTE DATE OF NOTE: FEB 13, 2023@13:56 ENTRY DATE: FEB 13, 2023@13:56:27 AUTHOR: KAMAR VARELA COSIGNER: URGENCY: STATUS: COMPLETED PATIENT NAME: JUAN THOMPSON SSN:[id number] DATE OF : Sep DATE OF SERVICE: 02/13/23 13:45 CHIEF COMPLAINT: Right hip, bilateral knee follow-up HISTORY OF PRESENT ILLNESS: 77-year-old male returning today for repeat evaluation of bilateral knee and right hip pain patient has been followed over the last year for these joints. X-rays of the hip show advanced superior joint space loss, and x-rays of his knees have shown moderate to severe osteoarthritis as well, left greater than right. Injections within the knees have provided some good short-term relief, but he has had a discussion regarding his hip with Dr. Floyd in May, but at that time his pain was fairly minimal. Over the past several months he has noted some progression of pain within his groin with occasional radiation over his anterior thigh with activity. He lives in an apartment which is all on 1 level, so does not have to deal with stairs, but pain is progressing so he is returning today for further discussion regarding the neck steps for his right hip. For the knees he is mainly interested in repeating a cortisone injection today. PHYSICAL EXAM: No data available BMI: 33.5 EXAM: Pleasant 77-year-old male no acute distress. Walks using a walker. Examination of the right hip: He is able to forward elevate to 100 degrees, externally rotate 30 degrees, but internal rotation is limited to about 5 degrees. He does have pain at the extremes of internal rotation. Stinchfield is positive to the groin. His knee exam bilaterally is relatively unchanged. He does lack a few degrees of terminal extension, but can flex to 110 degrees. There is a mild pseudolaxity to varus at 30 degrees with each knee. With the right leg, he does have some edema in bilateral lower extremities, with hair loss. His distal pulses PT/DP were palpable today. IMAGING: No new imaging, otherwise reviewed above ASSESSMENT: Degenerative arthritis right hip, bilateral knees PLAN: For the right hip, we did review his x-rays in detail today. We discussed that the options going forward would include continued symptom management with medications. We did discuss the option of a cortisone injection, but discussed the risk for further deterioration of the right hip in advanced arthritis with injection. He is not interested in injection. Otherwise we discussed right total hip arthroplasty in detail with a posterior approach. Patient was seen with Dr. Flood who discussed the risks and benefits of the procedure, including infection, dislocation, nerve injury and bleeding. He would be interested in pursuing surgery. Frailty index was 36, as patient does get slightly short of breath when walking distances, and has noted some memory changes over the last year. He has been taking Prevagen which has helped with the symptoms. He does have a guardian who helps him with transportation, and does have a nurse coming to his home 2 days a week to help with cleaning and other chores as he lives alone. Orders were placed for the procedure. For both knees, patient is mainly interested in repeating the cortisone injection. Informed consent was obtained through IMED consent. Patient wished to proceed. Knees were prepped with chloroprep, and I injected 1 cc depomedrol 40 mg/ml and 4 cc 0.25% bupivicaine into each knee without complication. This note was entered using speech recognition software. Although I diligently review and edit my dictations, insensible words or phrases may be present. /aneesh VARELA PA-C PHYSICIAN PAINT PREP TECHNICIAN Signed: 02/13/2023 15:07 KAMAR VARELA [facility] Feb 13, 2023 01:33 PM SURGERY NOTE: LOCAL TITLE: AYALA FRAILTY TOOL STANDARD TITLE: SURGERY NOTE DATE OF NOTE: FEB 13, 2023@13:33 ENTRY DATE: FEB 13, 2023@13:33:44 AUTHOR: KAMAR VARELA EXP COSIGNER: URGENCY: STATUS: COMPLETED FRAILTY CALCULATION: Risk Analysis Index (AYALA) score is: Score: 36 CALCULATED SCORE Variable Score Sex: 3 Cancer Status: No Weight Loss: 0 Poor Appetite: 0 Renal Insufficiency: 0 Chronic/Congestive Heart Failure: 0 Shortness of Breath: 3 Dependent Livin Cognitive Decline: Yes ADL*Cognitive Decline: 6 Mobility: Needs help from a cane, walker or scooter Eating: Can plan and prepare his/her own meals Toileting: Can use the toilet without help Personal Hygiene: Can shower or bathe without prompting or help AYALA Score: 36 /pablo/ KAMAR VARELA PA-C PHYSICIAN PAINT PREP TECHNICIAN Signed: 02/13/2023 13:48 KAMAR VARELA [facility]
--- OUTSIDE RECORDS SUMMARY | 2023-08-13 12:33 | XMS_ITS | Encounter Summary ---
Author Name Department of Vetera Affairs Organization [facility] of [facility] Address [address] [place] [address] Support Name Relationship Address Phone SIRIA THOMPSON Next of Kin [address] [place], [place] [phone] SIRIA THOMPSON Emergency Contact [address] [place] [phone] NATHALIE DING Emergency Contact Unknown Insurance Providers: [...] PART B Sep 26, 2012 PART B [id number] [facility] [phone] JUAN THOMPSON JR PATIENT MEDICARE (WNR) MEDICARE (M) PART A Sep 26, 2012 PART A [id number] [phone] JUAN THOMPSON JR PATIENT Selected Encounter This section includes the information on record at [place] for the Encounter. Date/Time Encounter Type Encounter Description Reason Pro vider Source Feb 13, 2023 03:19 PM Outpatient Encounter EVENT (HISTORICAL) IHE Encounter Template Text not used by [place] Plan of Treatment: Future Appointments (+ 6 [...] appointments. The data comes from all [facility]. Appointment Date/Time Appointment Type Appointme nt Facility Name Feb 25, 2023 09:15 AM [facility] Feb 25, 2023 09:30 AM [facility] Feb 25, 2023 11:00 AM [place] [place] [facility] [facility] Mar 07, 2023 08:30 AM [facility] [place] [place] [facility] [facility] Mar 31, 2023 07:00 AM [facility] Apr 19, 2023 10:30 AM [facility]BUL[facility]ORY [place] [facility] May 14, 2023 10:00 AM [facility] May 20, 2023 08:00 AM [facility] Jun 17, 2023 08:30 AM AMBULATORY - REHAB MEDICIN E [facility] Jun 21, 2023 05:10 PM AMBULATORY - REHAB MEDICIN E [facility] Jul 11, 2023 10:00 AM AMBULATORY - MEDICINE [facility] Jul 11, 2023 11:15 AM AMBULATORY - MEDICINE [facility] Active, Pending, and Scheduled Orders This section includes a listing of several types of active, pending, and scheduled orders, including clinic medications orders, diagnostic test orders, procedure orders and consult orders; where the start date of the order is 45 days before the date of the Encounter or 45 days after the date of theEncounter. The data comes from all [facility]. Test Date/Time Test Type Test Details Facility Name Feb 13, 2023 12:00 AM Laboratory - Blood Bank Order TYPE & SCREEN - LAB BLOOD SP [facility] Lab Results: +/- 30 days of the encounter This section includes the Chemistry and Hematology Lab Results on record with [place] for the patient. Radiology Reports and Pathology Reports are provided separately, in subsequent sections. Lab Results This section contains the Chemistry/Hematology Results that were resulted 30 days before or 30 daysafter the date of the Encounter. Date/Time Source Result Type Result - Unit Interpretation Reference Range Comment Feb 13, 2023 03:07 PM [facility] PROTHROMBIN TIME/INR Specimen Type: PLASMA No comment entered. Ordering Provider: KAMAR VARELA Report Released Date/Time: Feb 13, 2023 01:44 PM Reporting Lab: [facility] [id number] Performing Lab: [facility] [phone] .INR 1.3 H 0.8-1.1 .PT 15.5 H 9.4-12.5 Feb 13, 2023 03:07 PM [facility] ALBUMIN Specimen Type: PLASMA No comment entered. Ordering Provider: KAMAR VARELA Report Released Date/Time: Feb 13, 2023 01:44 PM Reporting Lab: [facility] [phone] Performing Lab: [facility] [phone] ALBUMIN 3.8 3.5-5.2 Feb 13, 2023 03:07 PM [facility] HEMOGLOBIN A1C Specimen [...] Feb 13, 2023 01:44 PM Reporting Lab: [facility] [phone] Performing Lab: [facility] [phone] HEMOGLOBIN A1C 7.4 H 4.0-6.0 Feb 13, 2023 03:07 PM [facility] BASIC METABOLIC PANEL+MG Specimen Type: PLASMA No comment entered. Ordering Provider: KAMAR VARELA Report Released Date/Time: Feb 13, 2023 01:44 PM Reporting Lab: [facility] [phone] Performing Lab: [facility] [phone] CREATININE 1.3 H 0.7-1.2 UREA NITROGEN 16 8-26 GLUCOSE 129 H 70-100 SODIUM 144 136-145 POTASSIUM 3.9 3.5-5.1 CHLORIDE 105 98-107 CO2 32 H 22-29 CALCIUM 9.1 8.4-10.2 MAGNESIUM 1.8 1.6-2.6 ANION GAP 7 5-15 .CREAT EGFR(CKD-EPI) 57 L See_Comment Feb 13, 2023 03:07 PM [facility] CBC & DIFF Specimen Type: BLOOD Comment: Automated Differential Performed Ordering Provider: KAMAR VARELA Report Released Date/Time: Feb 13, 2023 01:44 PM Reporting Lab: [facility] [phone] Performing Lab: [facility] [phone] WBC 7.60 4.0-11.0 RBC 4.50 L 4.6-6.2 [...] and tobacco- related health factors from the [place] facility where the Encounter took place. Current Smoking Status This section includes the most current smoking, or tobacco-related health factor, from the [place] facility where the Encounter took place. Date/Time Current Smoking Status Comment Aj woods Aug 15, 2022 09:00 AM VA-TOBACCO FORMER USER [facility] Tobacco Use History This section includes a history of the smoking, or tobacco-related health factors, that were collected on or before the date of the Encounter. The data comes from the [place] facility where the Encounter took place. Date/Time [...] GREATE R [facility] Jan 04, 2012 08:36 AM FORMER TOBACCO USER 7Y OR GREATE R [facility]
--- OUTSIDE RECORDS SUMMARY | 2023-08-13 12:33 | XMS_ITS | Encounter Summary ---
Author Name Department of Vetera Affairs Organization [facility] of [facility] Affairs Address [address] [place] [address] Support Name Relationship Address Phone DONNA SIRIA Next of Kin [address] [place], [place] [phone] SIRIA THOMPSON Emergency Contact [address] [place] [phone] KIMBERLY CLINE Emergency Contact Unknown Insurance Providers: [...] PART A Sep 26, 2012 PART A [id number] [facility] [phone] JUAN THOMPSON JR PATIENT MEDICARE (WNR) MEDICARE (M) PART B Sep 26, 2012 PART B [id number] [phone] JUAN THOMPSON JR PATIENT Selected Encounter This section includes the information on record at [place] for the Encounter. Date/Time Encounter Type Encounter Description Reason Pro vider Source Feb 13, 2023 02:29 PM Outpatient Encounter ORTHO/JOINT SURG IHE Encounter Template Text not used by [place] Plan of Treatment: Future Appointments (+ 6 months) and Future Tests (+/- 45 days) The Plan of Treatment section includes future care activities for the patient from all [place] treatmentfacilities. This section includes future appointments and future orders which are active, pending or scheduled. Future Appointments This section includes appointments that were scheduled to occur 6 months from the date of the Encounter, up to a maximum of 20 appointments. The data comes from all [facility]. Appointment Date/Time Appointment Type Appointme nt Facility Name Feb 25, 2023 09:15 AM [facility] Feb 25, 2023 09:30 AM [facility] Feb 25, 2023 11:00 [facility] Mar 07, 2023 08:30 [facility] Mar 31, 2023 07:00 AM [facility] Apr 19, 2023 10:30 AM [place] [facility] May 14, 2023 10:00 AM [facility] May 20, 2023 08:00 AM [facility] Jun 17, 2023 08:30 AM AMBULATORY - REHAB MEDICIN [facility] Jun 21, 2023 05:10 PM AMBULATORY - REHAB MEDICIN E [facility] Jul 11, 2023 10:00 AM AMBULATORY - MEDICINE [facility] Jul 11, 2023 11:15 AM AMBULATORY - MEDICINE [facility] Active, Pending, and Scheduled Orders This section includes a listing of several types of active, pending, and scheduled orders, including clinic medications orders, diagnostic test orders, procedure orders and consult orders; where the start date of the order is 45 days before the date of the Encounter or 45 days after the date of theEncounter. The data comes from all [facility]. Test Date/Time Test Type Test Details Facility Name Feb 13, 2023 12:00 AM Laboratory - Blood Bank Order TYPE & SCREEN - LAB BLOOD SP [facility] Lab Results: +/- 30 days [...] Range Comment Feb 13, 2023 03:[address] [facility] ALBUMIN Specimen Type: PLASMA No comment entered. Ordering Provider: KAMAR VARELA Report Released Date/Time: Feb 13, 2023 01:44 PM Reporting Lab: [facility] [id number] Performing Lab: [facility] [id number] ALBUMIN 3.8 3.5-5.2 Feb 13, 2023 03:[address] [facility] HEMOGLOBIN A1C Specimen Type: BLOOD [...] PM Reporting Lab: [facility] [phone] Performing Lab: [facility] [id number] HEMOGLOBIN A1C 7.4 H 4.0-6.0 Feb 13, 2023 03:[address] [facility] PROTHROMBIN TIME/INR Specimen Type: PLASMA No comment entered. Ordering Provider: KAMAR VARELA Report Released Date/Time: Feb 13, 2023 01:44 PM Reporting Lab: [facility] [phone] Performing Lab: [facility] [address] .INR 1.3 H 0.8-1.1 .PT 15.5 H 9.4-12.5 Feb 13, 2023 03:[address] [facility] CBC & DIFF Specimen Type: BLOOD Comment: Automated Differential Performed Ordering Provider: KAMAR VARELA Report Released Date/Time: Feb 13, 2023 01:44 PM Reporting Lab: [facility] [id number] Performing Lab: [facility] [phone] WBC 7.60 4.0-11.0 RBC 4.50 L 4.6-6.2 [...] IMMATURE GRAN 0.02 0-0.1 IPF 3.0 0-10 Feb 13, 2023 03:[address] [facility] BASIC METABOLIC PANEL+MG Specimen Type: PLASMA No comment entered. Ordering Provider: KAMAR VARELA Report Released Date/Time: Feb 13, 2023 01:44 PM Reporting Lab: [facility] [address] Performing Lab: [facility] [address] CREATININE 1.3 H 0.7-1.2 UREA NITROGEN 16 8-26 GLUCOSE 129 H 70-100 SODIUM 144 136-145 POTASSIUM 3.9 3.5-5.1 CHLORIDE 105 98-107 CO2 32 H 22-29 CALCIUM 9.1 8.4-10.2 MAGNESIUM 1.8 1.6-2.6 ANION GAP 7 5-15 .CREAT EGFR(CKD-EPI) 57 L See_Comment Social History: Smoking Status (Most current) and [...] 2022 09:00 AM VA-TOBACCO FORMER USER [facility] Tobacco Use History This section includes a history of the smoking, or tobacco-related health factors, that were collected on or before the date of the Encounter. The data comes from the [place] facility where the Encounter took place. Date/Time Smoking Status/Tobacco Use Comment [facility] Aug 15, 2022 09:00 AM VA-TOBACCO QUIT [address] [facility] Aug 21, 2021 01:00 PM VA-TOBACCO FORMER USER [facility] Aug 21, 2021 01:00 PM VA-TOBACCO QUIT [address] [facility] Jul 09, 2018 08:58 AM VA-TOBACCO FORMER USER [facility] Jul 09, 2018 08:58 AM VA-TOBACCO QUIT [address] [facility] Jul 18, 2017 09:58 AM FORMER TOBACCO USER 7Y OR GREATE R [facility] Aug 14, 2016 10:59 AM FORMER TOBACCO USER 7Y OR GREATE R [facility] Jun 29, 2015 02:03 PM FORMER TOBACCO USER 7Y OR GRE[facility] R [facility] Jan 06, 2014 03:04 PM FORMER TOBACCO USER 7Y OR GRE[facility] R [facility] Jan 04, 2012 08:36 AM FORMER TOBACCO USER 7Y OR GREATE R [facility] Encounter Notes: All associated encounter notes This section contains the clinical notes associated to the Encounter. Date/Time Encounter Note(s) Provider Source Feb 13, 2023 02:29 PM SURGERY CASE MANAG ER NOTE: LOCAL TITLE: SURGERY COORDINATOR NOTE STANDARD TITLE: SURGERY CLOUD SECURITY ARCHITECT NOTE DATE OF NOTE: FEB 13, 2023@14:29 ENTRY DATE: FEB 13, 2023@14:29:50 AUTHOR: YVETTE KIRKLAND COSIGNER: URGENCY: STATUS: COMPLETED SURGERY COORDINATOR NOTE Has ADDENDA Patient started down pathway toward elective Right MARK Met with patient and Guardian Kimberly Cline to review prescreening process. Reviewed current schedule at [facility]. Patient declined [facility]IC. Labs: 02/12 Dental: Full Dentures AYALA: 36 Vit D: taking Falls: denies Prescreening education: given to pt Scheduled prescreening appt with ekg on 02/25 If medically optimized after this appt, patient will be contacted to discuss surgery scheduling. Appt letter given to pt Alert DR. MONTES. /pablo/ Yvette Kirkland RN RN OR Signed: 02/13/2023 14:31 Receipt Acknowledged By: 02/19/2023 09:40 /pablo/ EDMOND MONTES MD STAFF PHYSICIAN 02/13/2023 ADDENDUM STATUS: COMPLETED Pt scheduled for med preop 02/25 - pt has guardimalu Cline [phone]. She will not be with pt at appt, she would like to be called with any significant findings. /pablo/ Yvette Kirkland RN RN OR Signed: 02/13/2023 14:35 Receipt Acknowledged By: 02/13/2023 15:11 /es/ RAFFI MG APRN NURSE PRACTITIONER YVETTE KIRKLAND [facility]
--- OUTSIDE RECORDS SUMMARY | 2023-08-13 12:34 | XMS_ITS | Encounter Summary ---
Author Name Department of Vetera Affairs Organization Department of Vetera ns Affairs Address [address] [place] [address] Support Name Relationship Address Phone SIRIA THOMPSON Next of Kin [address] [place], [place] [phone] SIRIA THOMPSON Emergency Contact [address] [place] [phone] NATHALIE DING Emergency Contact Unknown Insurance Providers: [...] PART A Sep 26, 2012 PART A [id number] [facility] [phone] JUAN THOMPOSN JR PATIENT MEDICARE (WNR) MEDICARE (M) PART B Sep 26, 2012 PART B [id number] [phone] JUAN THOMPSON JR PATIENT Selected Encounter This section includes the information on record at [place] for the Encounter. Date/Time Encounter Type Encounter Description Reason Pro vider Source Feb 14, 2023 03:22 PM Outpatient Encounter ENDOCRINOLOGY IHE Encounter Template Text [...] 20 appointments. The data comes from all [facility]. Appointment Date/Time Appointment Type Appointme nt Facility Name Feb 25, 2023 09:15 AM [facility] Feb 25, 2023 09:30 AM [facility] Feb 25, 2023 11:00 AM [facility] Mar 07, 2023 08:30 AM [facility] Mar 31, 2023 07:00 AM [place] [place] Apr 19, 2023 10:30 AM [place] [facility] May 14, 2023 10:00 AM [facility] [place] [facility] May 20, 2023 08:00 AM [place] [facility] Jun 17, 2023 08:30 AM AMBULATORY - REHAB MEDICIN [facility] Jun 21, 2023 05:10 PM AMBULATORY - REHAB MEDICIN E [facility] Jul 11, 2023 10:00 AM AMBULATORY - MEDICINE [facility] Jul 11, 2023 11:15 AM AMBULATORY - MEDICINE [facility] Active, Pending, and Scheduled Orders This section includes a listing of several types of active, pending, and scheduled orders, including clinic medications orders, diagnostic test orders, procedure orders and consult orders; where the start date of the order is 45 days before the date of the Encounter or 45 days after the date of theEncounter. The data comes from all [facility]. Test Date/Time Test Type Test Details Facility Name Feb 13, 2023 12:00 AM Laboratory - Blood Bank Order TYPE & SCREEN - LAB BLOOD SP [facility] Lab Results: +/- 30 days [...] Range Comment Feb 13, 2023 03:07 PM [facility] PROTHROMBIN TIME/INR Specimen Type: PLASMA No comment entered. Ordering Provider: KAMAR VARELA Report Released Date/Time: Feb 13, 2023 01:44 PM Reporting Lab: [facility] [id number] Performing Lab: [facility] [address] .INR 1.3 H 0.8-1.1 .PT 15.5 H 9.4-12.5 Feb 13, 2023 03:07 PM [facility] ALBUMIN Specimen Type: PLASMA No comment entered. Ordering Provider: KAMAR VARELA Report Released Date/Time: Feb 13, 2023 01:44 PM Reporting Lab: [facility] [address] Performing Lab: [facility] [address] ALBUMIN 3.8 3.5-5.2 Feb 13, 2023 03:07 PM [facility] HEMOGLOBIN A1C Specimen Type: BLOOD [...] Feb 13, 2023 01:44 PM Reporting Lab: [facility] [address] Performing Lab: [facility] [address] HEMOGLOBIN A1C 7.4 H 4.0-6.0 Feb 13, 2023 03:07 PM [facility] BASIC METABOLIC PANEL+MG Specimen Type: PLASMA No comment entered. Ordering Provider: KAMAR VARELA Report Released Date/Time: Feb 13, 2023 01:44 PM Reporting Lab: [facility] [address] Performing Lab: [facility] [address] CREATININE 1.3 H 0.7-1.2 UREA NITROGEN 16 8-26 GLUCOSE 129 H 70-100 SODIUM 144 136-145 POTASSIUM 3.9 3.5-5.1 CHLORIDE 105 98-107 CO2 32 H 22-29 CALCIUM 9.1 8.4-10.2 MAGNESIUM 1.8 1.6-2.6 ANION GAP 7 5-15 .CREAT EGFR(CKD-EPI) 57 L See_Comment Feb 13, 2023 03:07 PM [facility] CBC & DIFF Specimen Type: BLOOD Comment: Automated Differential Performed Ordering Provider: KAMAR VARELA Report Released Date/Time: Feb 13, 2023 01:44 PM Reporting Lab: [facility] [phone] Performing Lab: [facility] [address] WBC 7.60 4.0-11.0 RBC 4.50 L 4.6-6.2 [...] 15, 2022 09:00 AM VA-TOBACCO FORMER USER [facility] Tobacco Use History This section includes a history of the smoking, or tobacco-related health factors, that were collected on or before the date of the Encounter. The data comes from the [place] facility where the Encounter took place. Date/Time Smoking Status/Tobacco Use Comment Guan[place] ortez Aug 15, 2022 09:00 AM VA-TOBACCO QUIT 15 YRS OR MORE [facility] Aug 21, 2021 01:00 PM VA-TOBACCO FORMER USER [facility] Aug 21, 2021 01:00 PM VA-TOBACCO QUIT 15 YRS OR MORE [facility] Jul 09, 2018 08:58 AM VA-TOBACCO FORMER USER [facility] Jul 09, 2018 08:58 AM VA-TOBACCO QUIT 15 YRS OR MORE [facility] Jul 18, 2017 09:58 AM FORMER TOBACCO USER 7Y OR GREATE R [facility] Aug 14, 2016 10:59 AM FORMER TOBACCO USER 7Y OR GREATE R [facility] Jun 29, 2015 02:03 PM FORMER TOBACCO USER 7Y OR GREATE R [facility] Jan 06, 2014 03:04 PM FORMER TOBACCO USER 7Y OR GREATE R [facility] Jan 04, 2012 08:36 AM FORMER TOBACCO USER 7Y OR GREATE R [facility] Encounter Notes: All associated encounter notes This section contains the clinical notes associated to the Encounter. Date/Time Encounter Note(s) Provider Source Feb 14, 2023 03:22 PM REPORT OF CONTACT: LOCAL TITLE: APPOINTMENT SCHEDULING NOTE STANDARD TITLE: REPORT OF CONTACT DATE OF NOTE: FEB 14, 2023@15:22 ENTRY DATE: FEB 14, 2023@15:22:30 AUTHOR: SHERIN CRESPO EXP COSIGNER: URGENCY: STATUS: COMPLETED Attempted to schedule Cancellation Clinic cancellation Contact attempt made to [place] 1st attempt Telephone 2nd attempt Letter Left message on voice mail to call back to this number [phone] If calls back, schedule appt for: Activity: 11/06/2022 11:03 New Order entered by APRIL KINCAID (FELLOW PHYSICIA) Order Text: Return to [facility]D on or around ( Mar 06, 2023 ) for a total of 1 appointment(s) Prerequisites: Labs (NON-FASTING),(pendi ng) Imaging Orders /es/ SHANIKA BROWN ADVANCED MSA Signed: 02/14/2023 15:28 SHANIKA CRESPO [facility]
--- OUTSIDE RECORDS SUMMARY | 2023-08-13 12:34 | XMS_ITS | Encounter Summary ---
Author Name Department of Vetera Affairs Organization Department of Vetera ns Affairs Address [address] [place] [address] Support Name Relationship Address Phone DONNABALTAZARIC Next of Kin [address] [place] [phone] SIRIA THOMPSON Emergency Contact [address] [place] [phone] NATHALIE DING Emergency Contact Unknown Insurance Providers: [...] PART A Sep 26, 2012 PART A [id number] [facility] [phone] JUAN THOMPSON JR PATIENT MEDICARE (WNR) MEDICARE (M) PART B Sep 26, 2012 PART B [id number] [phone] JUAN THOMPSON JR PATIENT Selected Encounter This section includes the information on record at [place] for the Encounter. Date/Time Encounter Type Encounter Description Reason Pro vider Source IHE Encounter Template Text not used by [facility]
--- OUTSIDE RECORDS SUMMARY | 2023-08-13 12:34 | XMS_ITS | Encounter Summary ---
Author Name [facility] Organization [facility] Address [address] [place] [address] Support Name Relationship Address Phone SIRIA THOMPSON Next of Kin [address] [place], [place] [phone] SIRIA THOMPSON Emergency Contact [address] [place] [phone] NATHALIE CLINE Emergency Contact Unknown Insurance Providers: [...] PART A Sep 26, [id number] [facility] [phone] JUAN THOMPSON JR PATIENT MEDICARE (WNR) MEDICARE (M) PART B Sep 26, 2012 PART B [id number] [phone] JUAN THOMPSON JR PATIENT Selected Encounter This section includes the information on [place] at [place] for the Encounter. Date/Time Encounter Type Encounter Description Reason Provider Source Feb 25, 2023 09:30 AM OFFICE O/P EST MOD 30-39 MIN GENERAL INTERNAL MEDICINE ICD-10-CM Z01.818 Encounter for other preprocedural examination RAFFI MG Baldo Encounter Template Text not used by [place] Assessments - Encounter Diagnoses This section includes the primary and secondary diagnoses documented for the Encounter. Date/Time Primary/Secondary Diagnosis Diagnosis Name Provider Source Feb 25, 2023 12:44 PM PRIMARY Encounter for other preprocedural examination [facility]I [facility] Feb 25, 2023 12:44 PM SECONDARY Bipolar II disorder [facility] Feb 25, 2023 12:44 PM SECONDARY Essential (primary) hypertension [facility] Feb 25, 2023 12:44 PM SECONDARY Gastritis, unspecified, without bleeding [facility] Feb 25, 2023 12:44 PM SECONDARY Gastro-esophageal reflux disease without esophagitis [facility] Feb 25, 2023 12:44 PM SECONDARY supervisor intermediates (current) use of anticoagulants [facility] Feb 25, 2023 12:44 PM SECONDARY Mild cognitive impairment of uncertain or unknown etiology [facility] Feb 25, 2023 12:44 PM SECONDARY Pain in unspecified hip [facility] Feb 25, 2023 12:44 PM SECONDARY Type 2 diabetes mellitus with unspecified [facility] Feb 25, 2023 12:44 PM SECONDARY [facility]specified [facility] Feb 25, 2023 12:44 PM SECONDARY Unspecified dementia, mild, with other behavioral disturb [facility] Plan of Treatment: Future Appointments (+ 6 months) and Future Tests (+/- 45 days) The Plan of Treatment section includes future care activities for the patient from all [facility]. This section includes future appointments and future orders which are active, pending or scheduled. Future Appointments This section includes appointments that were scheduled to occur 6 months from the date of the Encounter, up to a maximum of 20 appointments. The data comes from all [facility]. Appointment Date/Time Appointment Type Appointme nt Facility Name Mar 07, 2023 08:30 AM [place]ORY [place] [facility] Mar 31, 2023 07:00 AM [place] - [place] [facility] Apr 19, 2023 10:30 AM AM[place]ORY [place] [facility] May 14, 2023 10:00 AM [facility] May 20, 2023 08:00 AM AMBULATORY - PSYCHIATRY IN [facility] Jun 17, 2023 08:30 AM AMBULATORY - REHAB MEDICIN E [facility] Jun 21, 2023 05:10 PM AMBULATORY - REHAB MEDICIN E [facility] Jul 11, 2023 10:00 AM AMBULATORY - MEDICINE [facility] Jul 11, 2023 11:15 AM AMBULATORY - MEDICINE [facility] Aug 21, 2023 10:30 AM AMBULATORY - PS[facility]ATRY [facility] Active, Pending, and Scheduled Orders This section includes a listing of several types of active, pending, and scheduled orders, including clinic medications orders, diagnostic test orders, procedure orders and consult orders; where the start date of the order is 45 days before the date of the Encounter or 45 days after the date of theEncounter. The data comes from all [place] treatment facilities. Test Date/Time Test Type Test Details Facility Name Feb 13, 2023 12:00 AM Laboratory - Blood Bank Order TYPE & SCREEN - LAB BLOOD SP [facility] Lab Results: +/- 30 days of the encounter This section includes the Chemistry and Hematology Lab Results on record with [place] for the patient. Radiology Reports and Pathology Reports are provided separately, in subsequent sections. Lab Results This section contains the Chemistry/Hematology Results that were resulted 30 days before or 30 daysafter the date of the Encounter. Date/Time Source Result Type Result - Unit Interpretation Reference Range Comment Feb 13, 2023 03:07 PM [facility] PROTHROMBIN TIME/INR Specimen Type: PLASMA No comment entered. Ordering Provider: KAMAR VARELA Report Released Date/Time: Feb 13, 2023 01:44 PM Reporting Lab: [facility] [id number] Performing Lab: [facility] [id number] .INR 1.3 H 0.8-1.1 .PT 15.5 H 9.4-12.5 Feb 13, 2023 03:07 PM [facility] ALBUMIN Specimen Type: PLASMA No comment entered. Ordering Provider: KAMAR VARELA Report Released Date/Time: Feb 13, 2023 01:44 PM Reporting Lab: [facility] [id number] Performing Lab: [facility] [id number] ALBUMIN 3.8 3.5-5.2 Feb 13, 2023 03:07 PM [facility] HEMOGLOBIN A1C Specimen Type: BLOOD Comment: [...] Feb 13, 2023 01:44 PM Reporting Lab: [facility] [id number] Performing Lab: [facility] [id number] HEMOGLOBIN A1C 7.4 H 4.0-6.0 Feb 13, 2023 03:07 PM [facility] BASIC METABOLIC PANEL+MG Specimen Type: PLASMA No comment entered. Ordering Provider: KAMAR VARELA Report Released Date/Time: Feb 13, 2023 01:44 PM Reporting Lab: [facility] [id number] Performing Lab: [facility] [id number] CREATININE 1.3 H 0.7-1.2 UREA NITROGEN 16 8-26 GLUCOSE 129 H 70-100 SODIUM 144 136-145 POTASSIUM 3.9 3.5-5.1 CHLORIDE 105 98-107 CO2 32 H 22-29 CALCIUM 9.1 8.4-10.2 MAGNESIUM 1.8 1.6-2.6 ANION GAP 7 5-15 .CREAT EGFR(CKD-EPI) 57 L See_Comment Feb 13, 2023 03:07 PM [facility] CBC & DIFF Specimen Type: BLOOD Comment: Automated Differential Performed Ordering Provider: KAMAR VARELA Report Released Date/Time: Feb 13, 2023 01:44 PM Reporting Lab: [facility] [id number] Performing Lab: [facility] [id number] WBC 7.60 4.0-11.0 RBC 4.50 L 4.6-6.2 [...] IMMATURE GRAN 0.02 0-0.1 IPF 3.0 0-10 Vital Signs: All taken on the encounter date This section contains inpatient and outpatient Vital Signs collected on the date of the Encounter. Date/Time Temperature Pulse Blood Pressure Respiratory Rate SP02 Pain Height Weight Body Mass Index Source Feb 25, 2023 09:35 AM 98.5 F 77 /min 118/77 mm[Hg] 16 /min 98 % 68 in 207.2 lb [facility] Social History: Smoking Status (Most current) [...] Facil ity Aug 15, 2022 09:00 AM [place]-TOBACCO QUIT 15 YRS OR MORE [facility] Tobacco Use History This section includes a history of the smoking, or tobacco-related health factors, that were collected on or before the date of the Encounter. The data comes from the [place] facility where the Encounter took place. Date/Time Smoking Status/Tobacco Use Comment F acility Aug 15, 2022 09:00 AM [place]-TOBACCO QUIT 15 YRS OR MORE [facility] Aug 21, 2021 01:00 PM VA-TOBACCO FORMER USER [facility] Aug 21, 2021 01:00 PM VA-TOBACCO QUIT 15 YRS OR MORE [facility] Jul 09, 2018 08:58 AM VA-TOBACCO FORMER USER [facility] Jul 09, 2018 08:58 AM VA-TOBACCO QUIT 15 YRS OR MORE [facility] Jul 18, 2017 09:58 AM FORMER TOBACCO USER 7Y OR GREATE R [facility] Aug 14, 2016 10:59 AM FORMER TOBACCO USER 7Y OR GREATE R [facility] Jun 29, 2015 02:03 PM FORMER TOBACCO USER 7Y OR GREATE R [facility] Jan 06, 2014 03:04 PM FORMER TOBACCO USER 7Y OR GREATE R [facility] Jan 04, 2012 08:36 AM FORMER TOBACCO USER 7Y OR KIAH Khan [facility] Encounter Notes: All associated encounter notes This section contains the clinical notes associated to the Encounter. Date/Time Encounter Note(s) Provider Source Feb 27, 2023 03:27 PM ADDENDUM: LOCAL TITLE: Addendum STANDARD TITLE: ADDENDUM DATE OF NOTE: FEB 27, 2023@15:27:33 ENTRY DATE: FEB 27, 2023@15:27:34 AUTHOR: RHYS LOJA EXP COSIGNER: URGENCY: STATUS: COMPLETED Ice Cutter called to review surgeon would like to see him before moving any farther with surgery. No answer left vm Ice Cutter called his deidra Harris. She stated that is not good with checking vms. She was in agreement with meeting in mar to discuss next steps. Understands no surgery offered at that time. Nathalie requested a morning appt for follow up-- Scheduled on 04/19 due to availability of provider. She will inform the patient. Stressed if surgery is decided we are able to pick a date for surgery. She has global technical writer's direct number incase she has any questions or concerns between now and surgery FYI to Dr. Figueroa- will follow up with you on 04/19 to discuss his Right hip. /es/ RHYS LOJA RN REGISTERED STAFF NURSE Signed: 02/27/2023 15:30 Receipt Acknowledged By: 03/01/2023 11:19 /es/ PATITO FIGUEROA MD STAFF SURGEON --- Original Document --- 02/25/23 MEDICINE PRE-OP EVALUATION NOTE: PRE-OP MEDICAL EVALUATION Name: DONNAJUAN OLMOS Age: 77 PLANNED SURGERY: R [facility] ALLERGY: SULFAMETHOXAZOLE (Feb 07, 2022) EMPAGLIFLOZIN (Jun 06, 2022) C-MEDS: DRUG RECONCILIATION Active Medications, as listed below, has been reviewed & Discussed with Pt and discrepancies has been reconciled & resolved today. 2) ACETAMINOPHEN 500MG TAB TAKE ONE TAB Q6 HOURS PRN 3) * APIXABAN 5MG TAB TAKE ONE TAB BID 4) ARIPIPRAZOLE 20MG TAB TAKE ONE TAB DAILY 5) ATORVASTATIN CALCIUM 10MG TAB TAKE ONE TAB AT BEDTIME 6) BUPROPION HCL 150MG 24HR SA TAB TAKE ONE TAB QAM 7) CALCIUM 200MG (CA CITRATE-950MG) TAB TAKE TWO TABS BID 8) CHOLECALCIF 25MCG (D3-1,000UNIT) TAB TAKE ONE TAB DAILY 9) CYANOCOBALAMIN 1000MCG TAB TAKE ONE TAB DAILY 10) FERROUS SULFATE 325MG TAB TAKE ONE TAB DAILY 11)* INSULIN,GLARGINE 100 UNT/ML 3ML SOLOSTAR INJECT 8 UNITS DAILY 12) LIDOCAINE 5% PATCH APPLY 1 PATCH DAILY 13) MAGNESIUM OXIDE 400MG TAB TAKE TWO TABS DAILY 14)* METFORMIN HCL 500MG TAB TAKE ONE TAB DAILY 15)* METOPROLOL SUCCINATE 50MG SA TAB TAKE ONE TAB DAILY 16) MULTIVIT/OPHTH AREDS2/LUTE/ZEAX CAP/TAB TAKE 1 TAB BID 17) MULTIVITAMIN CAP/TAB TAKE 1 TAB 18) OMEPRAZOLE 20MG EC CAP TAKE ONE CAP QAM AND TAKE TWO CAPS QPM 19) SEMAGLUTIDE 0.25MG/0.375ML INJ PEN 3ML INJECT 0.25MG WEEKLY (Sundays) 20) VENLAFAXINE HCL 150MG 24HR SA CAP TAKE ONE CAP DAILY 21) ALBUTEROL 90MCG (CFC-F) 200D ORAL INHL () Active problems: A-FIB -CHADS2: 3 -On AC CVD (?) -Patient self-reports that several years ago while homeless he thought he might of had a stroke. Somewhat difficult to gather history, in 2016 he was worked up by neuro for various memory/time labs concerns. MRI at that time showed Mild amount of chronic small vessel ischemic disease HTN DM-II -FS: 120-130s when fasting, up to 200's after eating GERD Bronchiectasis -Uses albuterol inhaler PRN Gastritis Obesity MDD Anxiety Bipolar Disorder MCI/Dementia Compulsive Gambling Varicose Veins of Lower Extremity Bariatric Surgery Status Cataracts Hypermetropia/Hyperopia Astigmatism, Unspec Presbyopia Past Tobacco Use -about 20 years, quit ~30 years ago PAST SURGICAL HISTORY 2001 Gastric Bypass Submandibular gland removed benign Bilateral carpal Tunnel Release Vasectomy Umbilical Hernia Repaired X 2 2001 Cholecystectomy Childhood Tonsillectomy ROS: Relevant Details In Active Med. List Above Functional Status: Best in last 6 months: Walks w/walker, able to walk from parking lot to clinic without stopping however he is limited due to pain in knees and hip. Patient also reports a history of shortness of breath with activity, previously was on inhalers, states he occasionally uses them still. Denies chest pain pressure with activity or dizziness/syncope WC/Bed:[No] METs:[4] Frail-BMI:33.5[No] Falls:[No] CVD : IN:[No] CABG:[No] PTCA/Stent:[No] Angina/Unstable:[No] CHF:[No] LEACH:[No] Orthopnea/PND:[No] :[No] Sxs:[No] A-F/SVT/VT:[YES], DCCV/Ablation:[No] AICD Or PM:[No] ABx Prophylaxis Need: SBE:[No] Cardiac Devices:[No] PAD:[No] CVD:[No] DVT/PE):[No] unprovoked:[No] HEM: Bleeding Diathesis:[No] ASA/PLAVIX/NSAID:[No] AC:[YES] GI: [id number]:[No] Agree to blood products:[Yes] Hepatitis:[No] Cirrhosis/Stage:[No] PULM: COPD/Asthma:[No] Home O2:[No] Oral Steroid<12ths:[No] RALPH:[No} C-PAP Compliant:[No] RALPH Suspect STOP-BANG:[ ] Aspiration Risk: Dysphagia[no] Hiatal Hernia[no] GERD[no] RENAL: CKD/Stage:[No] NARDA:[No] HD-Schedule:[No] BPH/LANDAVERDE[No] ENDOC: Adreno-Suppression:[No] DM[YES] Obesity:33.5:[YES] NEURO: Seizure:[No] Neuropathy:[No] Myopathy:[No] GADGET: Brain/Spinal/Vagal stimulators, Pumps, Prosthesis:[No] ANESTH: FHx/Personal Complic.:[No] Post-Op Delirium/Confusion:[No] CHEM.DEP: ETOH:[~2 drinks/day] Smoking:[No] Illicit Subs:[No] Naltrexone (PO/IM):[No] Buprenorphine:[No] Opioid:[No] BRAIN HEALTH: Dementia/Delirium:[YES] PTSD:[No] TBI:[No] CAPGERALDINEI: VTE RISK ASSESSMENT SCORE -- VTE RISK [%] SCORE -- VTE RISK [%] (0-2) -- Low -- 0.5-1.5% (5-8) -- High -- 6.0% (3-4) -- Moderate-- 3.0% (> 8) -- Highest -- 6-18% Age: 75 (41-60= 1) (61-74= 2) (>75= 3) (3) BMI:33.5 BMI>25= 1 (1) Surgery: Minor=1, Major=2. Major (within a month) Major:1 (2) Mobility: Central-line, Bed-Rest+/- Cast<72H=1 Confined +/- Cast>72H=2 (0) Women: Estrogen//Postpar angy/Spontaneous /Still =1 (0) PMHx:IN/CHF/IBD/Malignancy /(COPD/Asthma/Abnl PFT), LE edema/Varicosity=1(1) Recent Med Hx (< month): Sepsis, Pneumonia/Serious lung disease = 1 (0) CVA, Elective TKA/MARK/Spinal injury/Bone Fx(Hip/pelvis/Leg) =5 (5) VTE: VTE Hx, FHx of VTE, Congenital or Acquired thrombophilia =3 (0) TOTAL SCORE ==>[12] EXAM: General: NAD, uses Wheeled walker for mobility Ht:68 in [172.7 cm], BMI/Wt:31.6/207.2 lb [93.98 kg], RR:16, Temp:98.5 F [36.9 C], HR:77, BP:118/77 (02/25/2023 09:35) Mental Status: Normal: [Yes] Neck ROM: Normal:[Yes] Limited:[No] Trachea Midline:[Yes] Mouth Opening(Fingers): 3 Mallampati: 2 Teeth: WNL:[Yes] Loose:[No] Edentulous:[No] Lungs: CTA Heart: Rhythm: RRR. No Murmur. Extremity: LE edema: 1+ BLE LABS: SODIUM 144 (02/13/23) POTASSIUM 3.9 (02/13/23) UREA NITROGEN 16 (02/13/23) CREATININE 1.3 H (02/13/23) GLUCOSE 129 H (02/13/23) ALBUMIN 3.8 (02/13/23) WBC 7.60 (02/13/23) HGB 12.6 L (02/13/23) PLT 246 (02/13/23) INR 1.3 H (02/13/23) 02/13/2023 HEMOGLOBIN A1C 7.4 H % 4.0 - 6.0 HR: 78 Rhythm[NSR], low voltage QRS, cannot rule out anterior infarct, Date: 02/25/23 09/24/2017 CARDIOVASCULAR STRESS TEST 10451 Verified 1092 1. No ischemia demonstrated. 2. Left ventricular ejection fraction is 54 %. No focal wall motion abnormality. RISK ASSESSMENT: JUAN THOMPSON SIRIA LANDAVERDE is a 77 Y-O, Vet, With Med Hx as outlined above. Has known DM-II, bronchiectasis/COPD, CVD (?), CKD IIIa (? will recheck DOS).endorses baseline shortness of breath with activity that has been present for several years, uses albuterol inhaler as needed. Denies other Cardio-Pulmonary disease symptoms BUT has been relatively inactive as noted above, METS (4).somewhat difficult to gather history from patient reports that possibly in 2016 he had a stroke, reviewed neurology notes which did not appear to diagnose patient with stroke at that time. Labs, EKG, and Exam are as outlined & sign. for: Cr 1.3, Hgb 12.6, INR 1.3. Risk for the planned surgery relate to: Age, CVD (?), DM-II, CKD IIIa (?), A-fib, bronchiectasis, gastritis, dementia, and physical deconditioning. RCRI SCORE/RISK: ONE-TWO (DM-II and CVD (?)) INTERMEDIATE-HIGH RISK FOR THE PLANNED SURGERY FOR CARDIO-PULMONARY COMPLICATION I HAVE DISCUSSED WITH PATENT TODAY ALL THE ABOVE LISTED LABS:(CBC, SMA-7, INR)& EKG DONE TODAY. ALSO DISCUSSED ARE OTHER PERTINENT TESTS OUTLINED ABOVE. RECOMMENDATIONS: OPTIMIZATION FOR SURGERY Recheck Creatinine at Follow up appointment and or DOS CARDIAC: Known A-fib and CVD (?) At risk for RVR and ischemia/IN Hold apixaban 2 days Preop & day of surgery; resume per surgeon Stop Vitamins/Minerals/Suppleme nts 7 days Pre-op Give Metoprolol AM of OP Monitor Vitals & for Angina & Arrhythmia greg-op PULMONARY: Known Obesity and Bronchiectasis. Non Smoker. At risk for exacerbation Continue current inhaler therapy Albuterol nebs PRN greg-OP Incentive spirometry -Encourage use post-OP Keep head of bed elevated greg-OP when possible DM-II: Reasonably controlled, A1C 7.4% Give 1/2 Dose of Insulin Glargine AM of OP, 4 Units Hold Metformin AM of OP Monitor FSBG closely greg-OP Aspart Insulin SQ PRN FSBG Greg-OP RENAL: CKD-IIIa (?), Cr 1.3, slight elevation from baseline At risk for NARDA, monitor for worsening signs/symptoms Avoid NSAID and contrast dye Monitor Cr and K+ closely greg-OP ANEMIA: Hgb 12.6 Monitor HGB closely greg-OP Transfuse to keep HGB > 7.0 post-OP DVT PROPHYLAXIS: No Hx of DVT or Hypercoagulable state. CAPRINI SCORE:[12] == DVT/PE RISK: HIGHEST [6-18%] DVT PROPHYLAXIS RECOMMENDATION: Per surgical service ANESTHESIA: Oral Opening Fingers: 3 Mallampati: 1 BRAIN HEALTH: MCI/Dementia At risk for post-op delirium ALLERGY: Note allergies as listed above Thanks, call Q's. /pablo/ RAFFI MG APRN NURSE PRACTITIONER Signed: 02/25/2023 12:46 Receipt Acknowledged By: 02/25/2023 13:42 /aneesh Blackwell RN RN OR 02/25/2023 13:07 /pablo/ RHYS LOJA RN REGISTERED STAFF NURSE 02/25/2023 ADDENDUM STATUS: COMPLETED Ice Cutter called Guardimal[facility] Cline at [phone] and discussed appointment and findings. Nathalie appreciated call and would also like call w/updates from surgery coordinators with next step in process for surgery. /aneesh MG APRN NURSE PRACTITIONER Signed: 02/25/2023 12:55 Receipt Acknowledged By: 02/25/2023 13:39 /aneesh Blackwell RN RN OR 02/25/2023 13:07 /pablo/ RHYS LOJA RN REGISTERED STAFF NURSE 02/25/2023 ADDENDUM STATUS: COMPLETED came back as intermediate to High risk for Right MARK surgery. Do you want him to see you again for a pause appt prior to moving any farther or can be offered a date and see you at ortho pre-op. IF ok to proceed with scheduling please place surgery request. Thank you /aneesh LOJA RN REGISTERED STAFF NURSE Signed: 02/25/2023 13:07 Receipt Acknowledged By: 02/27/2023 12:03 /es/ PATITO FIGUEROA MD STAFF SURGEON 02/27/2023 ADDENDUM STATUS: COMPLETED order placed [facility] on 04/15/23 /pablo/ PATITO FIGUEROA MD STAFF SURGEON Signed: 02/27/2023 12:06 Receipt Acknowledged By: 02/27/2023 15:30 /pablo/ RHYS LOJA RN REGISTERED STAFF NURSE RHYS LOJA [facility] Feb 27, 2023 12:03 PM ADDENDUM: LOCAL TITLE: Addendum STANDARD TITLE: ADDENDUM DATE OF NOTE: FEB 27, 2023@12:03:49 ENTRY DATE: FEB 27, 2023@12:03:49 AUTHOR: PATITO FIGUEROA EXP COSIGNER: URGENCY: STATUS: COMPLETED order placed for follow up at [facility] on 04/15/23 /pablo/ PATITO FIGUEROA MD STAFF SURGEON Signed: 02/27/2023 12:06 Receipt Acknowledged By: 02/27/2023 15:30 /pablo/ RHYS LOJA RN REGISTERED STAFF NURSE --- Original Document --- 02/25/23 MEDICINE PRE-OP EVALUATION NOTE: PRE-OP MEDICAL EVALUATION Name: JUAN THOMPSON JR Age: 77 PLANNED SURGERY: R [facility] ALLERGY: SULFAMETHOXAZOLE (Feb 07, 2022) EMPAGLIFLOZIN (Jun 06, 2022) C-MEDS: DRUG RECONCILIATION Active Medications, as listed below, has been reviewed & Discussed with Pt and discrepancies has been reconciled & resolved today. 2) ACETAMINOPHEN 500MG TAB TAKE ONE TAB Q6 HOURS PRN 3) * APIXABAN 5MG TAB TAKE ONE TAB BID 4) ARIPIPRAZOLE 20MG TAB TAKE ONE TAB DAILY 5) ATORVASTATIN CALCIUM 10MG TAB TAKE ONE TAB AT BEDTIME 6) BUPROPION HCL 150MG 24HR SA TAB TAKE ONE TAB QAM 7) CALCIUM 200MG (CA CITRATE-950MG) TAB TAKE TWO TABS BID 8) CHOLECALCIF 25MCG (D3-1,000UNIT) TAB TAKE ONE TAB DAILY 9) CYANOCOBALAMIN 1000MCG TAB TAKE ONE TAB DAILY 10) FERROUS SULFATE 325MG TAB TAKE ONE TAB DAILY 11)* INSULIN,GLARGINE 100 UNT/ML 3ML SOLOSTAR INJECT 8 UNITS DAILY 12) LIDOCAINE 5% PATCH APPLY 1 PATCH DAILY 13) MAGNESIUM OXIDE 400MG TAB TAKE TWO TABS DAILY 14)* METFORMIN HCL 500MG TAB TAKE ONE TAB DAILY 15)* METOPROLOL SUCCINATE 50MG SA TAB TAKE ONE TAB DAILY 16) MULTIVIT/OPHTH AREDS2/LUTE/ZEAX CAP/TAB TAKE 1 TAB BID 17) MULTIVITAMIN CAP/TAB TAKE 1 TAB 18) OMEPRAZOLE 20MG EC CAP TAKE ONE CAP QAM AND TAKE TWO CAPS QPM 19) SEMAGLUTIDE 0.25MG/0.375ML INJ PEN 3ML INJECT 0.25MG WEEKLY (Sundays) 20) VENLAFAXINE HCL 150MG 24HR SA CAP TAKE ONE CAP DAILY 21) ALBUTEROL 90MCG (CFC-F) 200D ORAL INHL () Active problems: A-FIB -CHADS2: 3 -On AC CVD (?) -Patient self-reports that several years ago while homeless he thought he might of had a stroke. Somewhat difficult to gather history, in 2016 he was worked up by neuro for various memory/time labs concerns. MRI at that time showed Mild amount of chronic small vessel ischemic disease HTN DM-II -FS: 120-130s when fasting, up to 200's after eating GERD Bronchiectasis -Uses albuterol inhaler PRN Gastritis Obesity MDD Anxiety Bipolar Disorder MCI/Dementia Compulsive Gambling Varicose Veins of Lower Extremity Bariatric Surgery Status Cataracts Hypermetropia/Hyperopia Astigmatism, Unspec Presbyopia Past Tobacco Use -about 20 years, quit ~30 years ago PAST SURGICAL HISTORY 2001 Gastric Bypass Submandibular gland removed benign Bilateral carpal Tunnel Release Vasectomy Umbilical Hernia Repaired X 2 2001 Cholecystectomy Childhood Tonsillectomy ROS: Relevant Details In Active Med. List Above Functional Status: Best in last 6 months: Walks w/walker, able to walk from parking lot to clinic without stopping however he is limited due to pain in knees and hip. Patient also reports a history of shortness of breath with activity, previously was on inhalers, states he occasionally uses them still. Denies chest pain pressure with activity or dizziness/syncope WC/Bed:[No] METs:[4] Frail-BMI:33.5[No] Falls:[No] CVD : IN:[No] CABG:[No] PTCA/Stent:[No] Angina/Unstable:[No] CHF:[No] LEACH:[No] Orthopnea/PND:[No] :[No] Sxs:[No] A-F/SVT/VT:[YES], DCCV/Ablation:[No] AICD Or PM:[No] ABx Prophylaxis Need: SBE:[No] Cardiac Devices:[No] PAD:[No] CVD:[No] DVT/PE):[No] unprovoked:[No] HEM: Bleeding Diathesis:[No] ASA/PLAVIX/NSAID:[No] AC:[YES] GI: [id number]:[No] Agree to blood products:[Yes] Hepatitis:[No] Cirrhosis/Stage:[No] PULM: COPD/Asthma:[No] Home O2:[No] Oral Steroid<12ths:[No] RALPH:[No} C-PAP Compliant:[No] RALPH Suspect STOP-BANG:[ ] Aspiration Risk: Dysphagia[no] Hiatal Hernia[no] GERD[no] RENAL: CKD/Stage:[No] NARDA:[No] HD-Schedule:[No] BPH/LANDAVERDE[No] ENDOC: Adreno-Suppression:[No] DM[YES] Obesity:33.5:[YES] NEURO: Seizure:[No] Neuropathy:[No] Myopathy:[No] GADGET: Brain/Spinal/Vagal stimulators, Pumps, Prosthesis:[No] ANESTH: FHx/Personal Complic.:[No] Post-Op Delirium/Confusion:[No] CHEM.DEP: ETOH:[~2 drinks/day] Smoking:[No] Illicit Subs:[No] Naltrexone (PO/IM):[No] Buprenorphine:[No] Opioid:[No] BRAIN HEALTH: Dementia/Delirium:[YES] PTSD:[No] TBI:[No] CAPRINI: VTE RISK ASSESSMENT SCORE -- VTE RISK [%] SCORE -- VTE RISK [%] (0-2) -- Low -- 0.5-1.5% (5-8) -- High -- 6.0% (3-4) -- Moderate-- 3.0% (> 8) -- Highest -- 6-18% Age: 75 (41-60= 1) (61-74= 2) (>75= 3) (3) BMI:33.5 BMI>25= 1 (1) Surgery: Minor=1, Major=2. Major (within a month) Major:1 (2) Mobility: Central-line, Bed-Rest+/- Cast<72H=1 Confined +/- Cast>72H=2 (0) Women: Estrogen//Postpar angy/Spontaneous /Still =1 (0) PMHx:IN/CHF/IBD/Malignancy /(COPD/Asthma/Abnl PFT), LE edema/Varicosity=1(1) Recent Med Hx (< month): Sepsis, Pneumonia/Serious lung disease = 1 (0) CVA, Elective TKA/MARK/Spinal injury/Bone Fx(Hip/pelvis/Leg) =5 (5) VTE: VTE Hx, FHx of VTE, Congenital or Acquired thrombophilia =3 (0) TOTAL SCORE ==>[12] EXAM: General: NAD, uses Wheeled walker for mobility Ht:68 in [172.7 cm], BMI/Wt:31.6/207.2 lb [93.98 kg], RR:16, Temp:98.5 F [36.9 C], HR:77, BP:118/77 (02/25/2023 09:35) Mental Status: Normal: [Yes] Neck ROM: Normal:[Yes] Limited:[No] Trachea Midline:[Yes] Mouth Opening(Fingers): 3 Mallampati: 2 Teeth: WNL:[Yes] Loose:[No] Edentulous:[No] Lungs: CTA Heart: Rhythm: RRR. No Murmur. Extremity: LE edema: 1+ BLE LABS: SODIUM 144 (02/13/23) POTASSIUM 3.9 (02/13/23) UREA NITROGEN 16 (02/13/23) CREATININE 1.3 H (02/13/23) GLUCOSE 129 H (02/13/23) ALBUMIN 3.8 (02/13/23) WBC 7.60 (02/13/23) HGB 12.6 L (02/13/23) PLT 246 (02/13/23) INR 1.3 H (02/13/23) 02/13/2023 HEMOGLOBIN A1C 7.4 H % 4.0 - 6.0 HR: 78 Rhythm[NSR], low voltage QRS, cannot rule out anterior infarct, Date: 02/25/23 09/24/2017 CARDIOVASCULAR STRESS TEST 85195 Verified 1092 1. No ischemia demonstrated. 2. Left ventricular ejection fraction is 54 %. No focal wall motion abnormality. RISK ASSESSMENT: JUAN THOMPSON JR is a 77 Y-O, Vet, With Med Hx as outlined above. Has known DM-II, bronchiectasis/COPD, CVD (?), CKD IIIa (? will recheck DOS).endorses baseline shortness of breath with activity that has been present for several years, uses albuterol inhaler as needed. Denies other Cardio-Pulmonary disease symptoms BUT has been relatively inactive as noted above, METS (4).somewhat difficult to gather history from patient reports that possibly in 2016 he had a stroke, reviewed neurology notes which did not appear to diagnose patient with stroke at that time. Labs, EKG, and Exam are as outlined & sign. for: Cr 1.3, Hgb 12.6, INR 1.3. Risk for the planned surgery relate to: Age, CVD (?), DM-II, CKD IIIa (?), A-fib, bronchiectasis, gastritis, dementia, and physical deconditioning. RCRI SCORE/RISK: ONE-TWO (DM-II and CVD (?)) INTERMEDIATE-HIGH RISK FOR THE PLANNED SURGERY FOR CARDIO-PULMONARY COMPLICATION I HAVE DISCUSSED WITH PATENT TODAY ALL THE ABOVE LISTED LABS:(CBC, SMA-7, INR)& EKG DONE TODAY. ALSO DISCUSSED ARE OTHER PERTINENT TESTS OUTLINED ABOVE. RECOMMENDATIONS: OPTIMIZATION FOR SURGERY Recheck Creatinine at Follow up appointment and or DOS CARDIAC: Known A-fib and CVD (?) At risk for RVR and ischemia/IN Hold apixaban 2 days Preop & day of surgery; resume per surgeon Stop Vitamins/Minerals/Suppleme nts 7 days Pre-op Give Metoprolol AM of OP Monitor Vitals & for Angina & Arrhythmia greg-op PULMONARY: Known Obesity and Bronchiectasis. Non Smoker. At risk for exacerbation Continue current inhaler therapy Albuterol nebs PRN greg-OP Incentive spirometry -Encourage use post-OP Keep head of bed elevated greg-OP when possible DM-II: Reasonably controlled, A1C 7.4% Give 1/2 Dose of Insulin Glargine AM of OP, 4 Units Hold Metformin AM of OP Monitor FSBG closely greg-OP Aspart Insulin SQ PRN FSBG Greg-OP RENAL: CKD-IIIa (?), Cr 1.3, slight elevation from baseline At risk for NARDA, monitor for worsening signs/symptoms Avoid NSAID and contrast dye Monitor Cr and K+ closely greg-OP ANEMIA: Hgb 12.6 Monitor HGB closely greg-OP Transfuse to keep HGB > 7.0 post-OP DVT PROPHYLAXIS: No Hx of DVT or Hypercoagulable state. CAPRINI SCORE:[12] == DVT/PE RISK: HIGHEST [6-18%] DVT PROPHYLAXIS RECOMMENDATION: Per surgical service ANESTHESIA: Oral Opening Fingers: 3 Mallampati: 1 BRAIN HEALTH: MCI/Dementia At risk for post-op delirium ALLERGY: Note allergies as listed above Thanks, call Q's. /pablo/ RAFFI MG APRN NURSE PRACTITIONER Signed: 02/25/2023 12:46 Receipt Acknowledged By: 02/25/2023 13:42 /pablo/ Adeel Blackwell RN RN OR 02/25/2023 13:07 /pablo/ RHYS LOJA RN REGISTERED STAFF NURSE 02/25/2023 ADDENDUM STATUS: COMPLETED Ice Cutter called Butch Cline at [phone] and discussed appointment and findings. Nathalie appreciated call and would also like call w/updates from surgery coordinators with next step in process for surgery. /pablo/ RAFFI MG APRN NURSE PRACTITIONER Signed: 02/25/2023 12:55 Receipt Acknowledged By: 02/25/2023 13:39 /pablo/ Adeel Blackwell RN RN OR 02/25/2023 13:07 /pablo/ RHYS LOJA RN REGISTERED STAFF NURSE 02/25/2023 ADDENDUM STATUS: COMPLETED came back as intermediate to High risk for Right MARK surgery. Do you want him to see you again for a pause appt prior to moving any farther or can seth be offered a date and see you at ortho pre-op. IF ok to proceed with scheduling please place surgery request. Thank you /pablo/ RHYS LOJA RN REGISTERED STAFF NURSE Signed: 02/25/2023 13:07 Receipt Acknowledged By: 02/27/2023 12:03 /es/ PATITO FIGUEROA MD STAFF SURGEON 02/27/2023 ADDENDUM STATUS: COMPLETED Ice Cutter called to review surgeon would like to see him before moving any farther with surgery. No answer left vm Ice Cutter called his deidra Harris. She stated that is not good with checking vms. She was in agreement with meeting in mar to discuss next steps. Understands no surgery offered at that time. Nathalie requested a morning appt for follow up-- Scheduled on 04/19 due to availability of provider. She will inform the patient. Stressed if surgery is decided we are able to pick a date for surgery. She has global technical writer's direct number incase she has any questions or concerns between now and surgery FYI to Dr. Figueroa- will follow up with you on 04/19 to discuss his Right hip. /pablo/ RHYS LOJA RN REGISTERED STAFF NURSE Signed: 02/27/2023 15:30 Receipt Acknowledged By: * AWAITING SIGNATURE * PATITO FIGUEROA [facility] Feb 25, 2023 01:05 PM ADDENDUM: LOCAL TITLE: Addendum STANDARD TITLE: ADDENDUM DATE OF NOTE: FEB 25, 2023@13:05:38 ENTRY DATE: FEB 25, 2023@13:05:38 AUTHOR: RHYS LOJA EXP COSIGNER: URGENCY: STATUS: COMPLETED [place] came back as intermediate to High risk for Right MARK surgery. Do you want him to see you again for a pause appt prior to moving any farther or can be offered a date and see you at ortho pre-op. IF ok to proceed with scheduling please place surgery request. Thank you /pablo/ RHYS LOJA RN REGISTERED STAFF NURSE Signed: 02/25/2023 13:07 Receipt Acknowledged By: 02/27/2023 12:03 /pablo/ PATITO FIGUEROA MD STAFF SURGEON --- Original Document --- 02/25/23 MEDICINE PRE-OP EVALUATION NOTE: PRE-OP MEDICAL EVALUATION Name: DONNAJUAN LEDESMABHAVYA LANDAVERDE Age: 77 PLANNED SURGERY: [facility] ALLERGY: SULFAMETHOXAZOLE (Feb 07, 2022) EMPAGLIFLOZIN (Jun 06, 2022) C-MEDS: DRUG RECONCILIATION Active Medications, as listed below, has been reviewed & Discussed with Pt and discrepancies has been reconciled & resolved today. 2) ACETAMINOPHEN 500MG TAB TAKE ONE TAB Q6 HOURS PRN 3) * APIXABAN 5MG TAB TAKE ONE TAB BID 4) ARIPIPRAZOLE 20MG TAB TAKE ONE TAB DAILY 5) ATORVASTATIN CALCIUM 10MG TAB TAKE ONE TAB AT BEDTIME 6) BUPROPION HCL 150MG 24HR SA TAB TAKE ONE TAB QAM 7) CALCIUM 200MG (CA CITRATE-950MG) TAB TAKE TWO TABS BID 8) CHOLECALCIF 25MCG (D3-1,000UNIT) TAB TAKE ONE TAB DAILY 9) CYANOCOBALAMIN 1000MCG TAB TAKE ONE TAB DAILY 10) FERROUS SULFATE 325MG TAB TAKE ONE TAB DAILY 11)* INSULIN,GLARGINE 100 UNT/ML 3ML SOLOSTAR INJECT 8 UNITS DAILY 12) LIDOCAINE 5% PATCH APPLY 1 PATCH DAILY 13) MAGNESIUM OXIDE 400MG TAB TAKE TWO TABS DAILY 14)* METFORMIN HCL 500MG TAB TAKE ONE TAB DAILY 15)* METOPROLOL SUCCINATE 50MG SA TAB TAKE ONE TAB DAILY 16) MULTIVIT/OPHTH AREDS2/LUTE/ZEAX CAP/TAB TAKE 1 TAB BID 17) MULTIVITAMIN CAP/TAB TAKE 1 TAB 18) OMEPRAZOLE 20MG EC CAP TAKE ONE CAP QAM AND TAKE TWO CAPS QPM 19) SEMAGLUTIDE 0.25MG/0.375ML INJ PEN 3ML INJECT 0.25MG WEEKLY (Sundays) 20) VENLAFAXINE HCL 150MG 24HR SA CAP TAKE ONE CAP DAILY 21) ALBUTEROL 90MCG (CFC-F) 200D ORAL INHL () Active problems: A-FIB -CHADS2: 3 -On AC CVD (?) -Patient self-reports that several years ago while homeless he thought he might of had a stroke. Somewhat difficult to gather history, in 2016 he was worked up by neuro for various memory/time labs concerns. MRI at that time showed Mild amount of chronic small vessel ischemic disease HTN DM-II -FS: 120-130s when fasting, up to 200's after eating GERD Bronchiectasis -Uses albuterol inhaler PRN Gastritis Obesity MDD Anxiety Bipolar Disorder MCI/Dementia Compulsive Gambling Varicose Veins of Lower Extremity Bariatric Surgery Status Cataracts Hypermetropia/Hyperopia Astigmatism, Unspec Presbyopia Past Tobacco Use -about 20 years, quit ~30 years ago PAST SURGICAL HISTORY 2001 Gastric Bypass Submandibular gland removed benign Bilateral carpal Tunnel Release Vasectomy Umbilical Hernia Repaired X 2 2001 Cholecystectomy Childhood Tonsillectomy ROS: Relevant Details In Active Med. List Above Functional Status: Best in last 6 months: Walks w/walker, able to walk from parking lot to clinic without stopping however he is limited due to pain in knees and hip. Patient also reports a history of shortness of breath with activity, previously was on inhalers, states he occasionally uses them still. Denies chest pain pressure with activity or dizziness/syncope WC/Bed:[No] METs:[4] Frail-BMI:33.5[No] Falls:[No] CVD : IN:[No] CABG:[No] PTCA/Stent:[No] Angina/Unstable:[No] CHF:[No] LEACH:[No] Orthopnea/PND:[No] :[No] Sxs:[No] A-F/SVT/VT:[YES], DCCV/Ablation:[No] AICD Or PM:[No] ABx Prophylaxis Need: SBE:[No] Cardiac Devices:[No] PAD:[No] CVD:[No] DVT/PE):[No] unprovoked:[No] HEM: Bleeding Diathesis:[No] ASA/PLAVIX/NSAID:[No] AC:[YES] GI: [id number]:[No] Agree to blood products:[Yes] Hepatitis:[No] Cirrhosis/Stage:[No] PULM: COPD/Asthma:[No] Home O2:[No] Oral Steroid<12ths:[No] RALPH:[No} C-PAP Compliant:[No] RALPH Suspect STOP-BANG:[ ] Aspiration Risk: Dysphagia[no] Hiatal Hernia[no] GERD[no] RENAL: CKD/Stage:[No] NARDA:[No] HD-Schedule:[No] BPH/LANDAVERDE[No] ENDOC: Adreno-Suppression:[No] DM[YES] Obesity:33.5:[YES] NEURO: Seizure:[No] Neuropathy:[No] Myopathy:[No] GADGET: Brain/Spinal/Vagal stimulators, Pumps, Prosthesis:[No] ANESTH: FHx/Personal Complic.:[No] Post-Op Delirium/Confusion:[No] CHEM.DEP: ETOH:[~2 drinks/day] Smoking:[No] Illicit Subs:[No] Naltrexone (PO/IM):[No] Buprenorphine:[No] Opioid:[No] BRAIN HEALTH: Dementia/Delirium:[YES] PTSD:[No] TBI:[No] CAPRINI: VTE RISK ASSESSMENT SCORE -- VTE RISK [%] SCORE -- VTE RISK [%] (0-2) -- Low -- 0.5-1.5% (5-8) -- High -- 6.0% (3-4) -- Moderate-- 3.0% (> 8) -- Highest -- 6-18% Age: 75 (41-60= 1) (61-74= 2) (>75= 3) (3) BMI:33.5 BMI>25= 1 (1) Surgery: Minor=1, Major=2. Major (within a month) Major:1 (2) Mobility: Central-line, Bed-Rest+/- Cast<72H=1 Confined +/- Cast>72H=2 (0) Women: Estrogen//Postpar angy/Spontaneous /Still =1 (0) PMHx:IN/CHF/IBD/Malignancy /(COPD/Asthma/Abnl PFT), LE edema/Varicosity=1(1) Recent Med Hx (< month): Sepsis, Pneumonia/Serious lung disease = 1 (0) CVA, Elective TKA/MARK/Spinal injury/Bone Fx(Hip/pelvis/Leg) =5 (5) VTE: VTE Hx, FHx of VTE, Congenital or Acquired thrombophilia =3 (0) TOTAL SCORE ==>[12] EXAM: General: NAD, uses Wheeled walker for mobility Ht:68 in [172.7 cm], BMI/Wt:31.6/207.2 lb [93.98 kg], RR:16, Temp:98.5 F [36.9 C], HR:77, BP:118/77 (02/25/2023 09:35) Mental Status: Normal: [Yes] Neck ROM: Normal:[Yes] Limited:[No] Trachea Midline:[Yes] Mouth Opening(Fingers): 3 Mallampati: 2 Teeth: WNL:[Yes] Loose:[No] Edentulous:[No] Lungs: CTA Heart: Rhythm: RRR. No Murmur. Extremity: LE edema: 1+ BLE LABS: SODIUM 144 (02/13/23) POTASSIUM 3.9 (02/13/23) UREA NITROGEN 16 (02/13/23) CREATININE 1.3 H (02/13/23) GLUCOSE 129 H (02/13/23) ALBUMIN 3.8 (02/13/23) WBC 7.60 (02/13/23) HGB 12.6 L (02/13/23) PLT 246 (02/13/23) INR 1.3 H (02/13/23) 02/13/2023 HEMOGLOBIN A1C 7.4 H % 4.0 - 6.0 HR: 78 Rhythm[NSR], low voltage QRS, cannot rule out anterior infarct, Date: 7/31/23 09/24/2017 CARDIOVASCULAR STRESS TEST 21367 Verified 1092 1. No ischemia demonstrated. 2. Left ventricular ejection fraction is 54 %. No focal wall motion abnormality. RISK ASSESSMENT: JUAN THOMPSON SIRIA LANDAVERDE is a 77 Y-O, Vet, With Med Hx as outlined above. Has known DM-II, bronchiectasis/COPD, CVD (?), CKD IIIa (? will recheck DOS).endorses baseline shortness of breath with activity that has been present for several years, uses albuterol inhaler as needed. Denies other Cardio-Pulmonary disease symptoms BUT has been relatively inactive as noted above, METS (4).somewhat difficult to gather history from patient reports that possibly in 2016 he had a stroke, reviewed neurology notes which did not appear to diagnose patient with stroke at that time. Labs, EKG, and Exam are as outlined & sign. for: Cr 1.3, Hgb 12.6, INR 1.3. Risk for the planned surgery relate to: Age, CVD (?), DM-II, CKD IIIa (?), A-fib, bronchiectasis, gastritis, dementia, and physical deconditioning. RCRI SCORE/RISK: ONE-TWO (DM-II and CVD (?)) INTERMEDIATE-HIGH RISK FOR THE PLANNED SURGERY FOR CARDIO-PULMONARY COMPLICATION I HAVE DISCUSSED WITH PATENT TODAY ALL THE ABOVE LISTED LABS:(CBC, SMA-7, INR)& EKG DONE TODAY. ALSO DISCUSSED ARE OTHER PERTINENT TESTS OUTLINED ABOVE. RECOMMENDATIONS: OPTIMIZATION FOR SURGERY Recheck Creatinine at Follow up appointment and or DOS CARDIAC: Known A-fib and CVD (?) At risk for RVR and ischemia/IN Hold apixaban 2 days Preop & day of surgery; resume per surgeon Stop Vitamins/Minerals/Suppleme nts 7 days Pre-op Give Metoprolol AM of OP Monitor Vitals & for Angina & Arrhythmia greg-op PULMONARY: Known Obesity and Bronchiectasis. Non Smoker. At risk for exacerbation Continue current inhaler therapy Albuterol nebs PRN greg-OP Incentive spirometry -Encourage use post-OP Keep head of bed elevated greg-OP when possible DM-II: Reasonably controlled, A1C 7.4% Give 1/2 Dose of Insulin Glargine AM of OP, 4 Units Hold Metformin AM of OP Monitor FSBG closely greg-OP Aspart Insulin SQ PRN FSBG Greg-OP RENAL: CKD-IIIa (?), Cr 1.3, slight elevation from baseline At risk for NARDA, monitor for worsening signs/symptoms Avoid NSAID and contrast dye Monitor Cr and K+ closely greg-OP ANEMIA: Hgb 12.6 Monitor HGB closely greg-OP Transfuse to keep HGB > 7.0 post-OP DVT PROPHYLAXIS: No Hx of DVT or Hypercoagulable state. CAPRINI SCORE:[12] == DVT/PE RISK: HIGHEST [6-18%] DVT PROPHYLAXIS RECOMMENDATION: Per surgical service ANESTHESIA: Oral Opening Fingers: 3 Mallampati: 1 BRAIN HEALTH: MCI/Dementia At risk for post-op delirium ALLERGY: Note allergies as listed above Thanks, call Q's. /pablo/ RAFFI MG APRN NURSE PRACTITIONER Signed: 02/25/2023 12:46 Receipt Acknowledged By: 02/25/2023 13:42 /pablo/ Adeel Blackwell RN RN OR 02/25/2023 13:07 /es/ RHYS LOJA, RN REGISTERED STAFF NURSE 02/25/2023 ADDENDUM STATUS: COMPLETED Ice Cutter called Butch Cline at [phone] and discussed appointment and findings. Nathalie appreciated call and would also like call w/updates from surgery coordinators with next step in process for surgery. /pablo/ RAFFI MG APRN NURSE PRACTITIONER Signed: 02/25/2023 12:55 Receipt Acknowledged By: 02/25/2023 13:39 /pablo/ Adeel BlackwellRN RN OR 02/25/2023 13:07 /pablo/ RHYS LOJA, RN REGISTERED STAFF NURSE 02/27/2023 ADDENDUM STATUS: UNSIGNED You may not VIEW this UNSIGNED Addendum. RHYS LOJA [facility] Feb 25, 2023 12:46 PM ADDENDUM: LOCAL TITLE: Addendum STANDARD TITLE: ADDENDUM DATE OF NOTE: FEB 25, 2023@12:46:50 ENTRY DATE: FEB 25, 2023@12:46:51 AUTHOR: RAFFI MG EXP COSIGNER: URGENCY: STATUS: COMPLETED Ice Cutter called Butch Cline at [phone] and discussed appointment and findings. Nathalie appreciated call and would also like call w/updates from surgery coordinators with next step in process for surgery. /es/ RAFFI MG APRN NURSE PRACTITIONER Signed: 02/25/2023 12:55 Receipt Acknowledged By: 02/25/2023 13:39 /es/ Adeel Blackwell RN RN OR 02/25/2023 13:07 /es/ RHYS LOJA RN REGISTERED STAFF NURSE --- Original Document --- 02/25/23 MEDICINE PRE-OP EVALUATION NOTE: PRE-OP MEDICAL EVALUATION Name: JUAN THOMPSON JR Age: 77 PLANNED SURGERY: [facility] ALLERGY: SULFAMETHOXAZOLE (Feb 07, 2022) EMPAGLIFLOZIN (Jun 06, 2022) C-MEDS: DRUG RECONCILIATION Active Medications, as listed below, has been reviewed & Discussed with Pt and discrepancies has been reconciled & resolved today. 2) ACETAMINOPHEN 500MG TAB TAKE ONE TAB Q6 HOURS PRN 3) * APIXABAN 5MG TAB TAKE ONE TAB BID 4) ARIPIPRAZOLE 20MG TAB TAKE ONE TAB DAILY 5) ATORVASTATIN CALCIUM 10MG TAB TAKE ONE TAB AT BEDTIME 6) BUPROPION HCL 150MG 24HR SA TAB TAKE ONE TAB QAM 7) CALCIUM 200MG (CA CITRATE-950MG) TAB TAKE TWO TABS BID 8) CHOLECALCIF 25MCG (D3-1,000UNIT) TAB TAKE ONE TAB DAILY 9) CYANOCOBALAMIN 1000MCG TAB TAKE ONE TAB DAILY 10) FERROUS SULFATE 325MG TAB TAKE ONE TAB DAILY 11)* INSULIN,GLARGINE 100 UNT/ML 3ML SOLOSTAR INJECT 8 UNITS DAILY 12) LIDOCAINE 5% PATCH APPLY 1 PATCH DAILY 13) MAGNESIUM OXIDE 400MG TAB TAKE TWO TABS DAILY 14)* METFORMIN HCL 500MG TAB TAKE ONE TAB DAILY 15)* METOPROLOL SUCCINATE 50MG SA TAB TAKE ONE TAB DAILY 16) MULTIVIT/OPHTH AREDS2/LUTE/ZEAX CAP/TAB TAKE 1 TAB BID 17) MULTIVITAMIN CAP/TAB TAKE 1 TAB 18) OMEPRAZOLE 20MG EC CAP TAKE ONE CAP QAM AND TAKE TWO CAPS QPM 19) SEMAGLUTIDE 0.25MG/0.375ML INJ PEN 3ML INJECT 0.25MG WEEKLY (Sundays) 20) VENLAFAXINE HCL 150MG 24HR SA CAP TAKE ONE CAP DAILY 21) ALBUTEROL 90MCG (CFC-F) 200D ORAL INHL () Active problems: A-FIB -CHADS2: 3 -On AC CVD (?) -Patient self-reports that several years ago while homeless he thought he might of had a stroke. Somewhat difficult to gather history, in 2016 he was worked up by neuro for various memory/time labs concerns. MRI at that time showed Mild amount of chronic small vessel ischemic disease HTN DM-II -FS: 120-130s when fasting, up to 200's after eating GERD Bronchiectasis -Uses albuterol inhaler PRN Gastritis Obesity MDD Anxiety Bipolar Disorder MCI/Dementia Compulsive Gambling Varicose Veins of Lower Extremity Bariatric Surgery Status Cataracts Hypermetropia/Hyperopia Astigmatism, Unspec Presbyopia Past Tobacco Use -about 20 years, quit ~30 years ago PAST SURGICAL HISTORY 2001 Gastric Bypass Submandibular gland removed benign Bilateral carpal Tunnel Release Vasectomy Umbilical Hernia Repaired X 2 2001 Cholecystectomy Childhood Tonsillectomy ROS: Relevant Details In Active Med. List Above Functional Status: Best in last 6 months: Walks w/walker, able to walk from parking lot to clinic without stopping however he is limited due to pain in knees and hip. Patient also reports a history of shortness of breath with activity, previously was on inhalers, states he occasionally uses them still. Denies chest pain pressure with activity or dizziness/syncope WC/Bed:[No] METs:[4] Frail-BMI:33.5[No] Falls:[No] CVD : IN:[No] CABG:[No] PTCA/Stent:[No] Angina/Unstable:[No] CHF:[No] LEACH:[No] Orthopnea/PND:[No] :[No] Sxs:[No] A-F/SVT/VT:[YES], DCCV/Ablation:[No] AICD Or PM:[No] ABx Prophylaxis Need: SBE:[No] Cardiac Devices:[No] PAD:[No] CVD:[No] DVT/PE):[No] unprovoked:[No] HEM: Bleeding Diathesis:[No] ASA/PLAVIX/NSAID:[No] AC:[YES] GI: [id number]:[No] Agree to blood products:[Yes] Hepatitis:[No] Cirrhosis/Stage:[No] PULM: COPD/Asthma:[No] Home O2:[No] Oral Steroid<12ths:[No] RALPH:[No} C-PAP Compliant:[No] RALPH Suspect STOP-BANG:[ ] Aspiration Risk: Dysphagia[no] Hiatal Hernia[no] GERD[no] RENAL: CKD/Stage:[No] NARDA:[No] HD-Schedule:[No] BPH/LANDAVERDE[No] ENDOC: Adreno-Suppression:[No] DM[YES] Obesity:33.5:[YES] NEURO: Seizure:[No] Neuropathy:[No] Myopathy:[No] GADGET: Brain/Spinal/Vagal stimulators, Pumps, Prosthesis:[No] ANESTH: FHx/Personal Complic.:[No] Post-Op Delirium/Confusion:[No] CHEM.DEP: ETOH:[~2 drinks/day] Smoking:[No] Illicit Subs:[No] Naltrexone (PO/IM):[No] Buprenorphine:[No] Opioid:[No] BRAIN HEALTH: Dementia/Delirium:[YES] PTSD:[No] TBI:[No] CAPRINI: VTE RISK ASSESSMENT SCORE -- VTE RISK [%] SCORE -- VTE RISK [%] (0-2) -- Low -- 0.5-1.5% (5-8) -- High -- 6.0% (3-4) -- Moderate-- 3.0% (> 8) -- Highest -- 6-18% Age: 75 (41-60= 1) (61-74= 2) (>75= 3) (3) BMI:33.5 BMI>25= 1 (1) Surgery: Minor=1, Major=2. Major (within a month) Major:1 (2) Mobility: Central-line, Bed-Rest+/- Cast<72H=1 Confined +/- Cast>72H=2 (0) Women: Estrogen//Postpar angy/Spontaneous /Still =1 (0) PMHx:IN/CHF/IBD/Malignancy /(COPD/Asthma/Abnl PFT), LE edema/Varicosity=1(1) Recent Med Hx (< month): Sepsis, Pneumonia/Serious lung disease = 1 (0) CVA, Elective TKA/MARK/Spinal injury/Bone Fx(Hip/pelvis/Leg) =5 (5) VTE: VTE Hx, FHx of VTE, Congenital or Acquired thrombophilia =3 (0) TOTAL SCORE ==>[12] EXAM: General: NAD, uses Wheeled walker for mobility Ht:68 in [172.7 cm], BMI/Wt:31.6/207.2 lb [93.98 kg], RR:16, Temp:98.5 F [36.9 C], HR:77, BP:118/77 (02/25/2023 09:35) Mental Status: Normal: [Yes] Neck ROM: Normal:[Yes] Limited:[No] Trachea Midline:[Yes] Mouth Opening(Fingers): 3 Mallampati: 2 Teeth: WNL:[Yes] Loose:[No] Edentulous:[No] Lungs: CTA Heart: Rhythm: RRR. No Murmur. Extremity: LE edema: 1+ BLE LABS: SODIUM 144 (02/13/23) POTASSIUM 3.9 (02/13/23) UREA NITROGEN 16 (02/13/23) CREATININE 1.3 H (02/13/23) GLUCOSE 129 H (02/13/23) ALBUMIN 3.8 (02/13/23) WBC 7.60 (02/13/23) HGB 12.6 L (02/13/23) PLT 246 (02/13/23) INR 1.3 H (02/13/23) 02/13/2023 HEMOGLOBIN A1C 7.4 H % 4.0 - 6.0 HR: 78 Rhythm[NSR], low voltage QRS, cannot rule out anterior infarct, Date: 02/25/23 09/24/2017 CARDIOVASCULAR STRESS TEST 23050 Verified 1092 1. No ischemia demonstrated. 2. Left ventricular ejection fraction is 54 %. No focal wall motion abnormality. RISK ASSESSMENT: JUAN THOMPSON SIRIA LANDAVERDE is a 77 Y-O, Vet, With Med Hx as outlined above. Has known DM-II, bronchiectasis/COPD, CVD (?), CKD IIIa (? will recheck DOS).endorses baseline shortness of breath with activity that has been present for several years, uses albuterol inhaler as needed. Denies other Cardio-Pulmonary disease symptoms BUT has been relatively inactive as noted above, METS (4).somewhat difficult to gather history from patient reports that possibly in 2016 he had a stroke, reviewed neurology notes which did not appear to diagnose patient with stroke at that time. Labs, EKG, and Exam are as outlined & sign. for: Cr 1.3, Hgb 12.6, INR 1.3. Risk for the planned surgery relate to: Age, CVD (?), DM-II, CKD IIIa (?), A-fib, bronchiectasis, gastritis, dementia, and physical deconditioning. RCRI SCORE/RISK: ONE-TWO (DM-II and CVD (?)) INTERMEDIATE-HIGH RISK FOR THE PLANNED SURGERY FOR CARDIO-PULMONARY COMPLICATION I HAVE DISCUSSED WITH PATENT TODAY ALL THE ABOVE LISTED LABS:(CBC, SMA-7, INR)& EKG DONE TODAY. ALSO DISCUSSED ARE OTHER PERTINENT TESTS OUTLINED ABOVE. RECOMMENDATIONS: OPTIMIZATION FOR SURGERY Recheck Creatinine at Follow up appointment and or DOS CARDIAC: Known A-fib and CVD (?) At risk for RVR and ischemia/IN Hold apixaban 2 days Preop & day of surgery; resume per surgeon Stop Vitamins/Minerals/Suppleme nts 7 days Pre-op Give Metoprolol AM of OP Monitor Vitals & for Angina & Arrhythmia greg-op PULMONARY: Known Obesity and Bronchiectasis. Non Smoker. At risk for exacerbation Continue current inhaler therapy Albuterol nebs PRN greg-OP Incentive spirometry -Encourage use post-OP Keep head of bed elevated greg-OP when possible DM-II: Reasonably controlled, A1C 7.4% Give 1/2 Dose of Insulin Glargine AM of OP, 4 Units Hold Metformin AM of OP Monitor FSBG closely greg-OP Aspart Insulin SQ PRN FSBG Greg-OP RENAL: CKD-IIIa (?), Cr 1.3, slight elevation from baseline At risk for NARDA, monitor for worsening signs/symptoms Avoid NSAID and contrast dye Monitor Cr and K+ closely greg-OP ANEMIA: Hgb 12.6 Monitor HGB closely greg-OP Transfuse to keep HGB > 7.0 post-OP DVT PROPHYLAXIS: No Hx of DVT or Hypercoagulable state. CAPRINI SCORE:[12] == DVT/PE RISK: HIGHEST [6-18%] DVT PROPHYLAXIS RECOMMENDATION: Per surgical service ANESTHESIA: Oral Opening Fingers: 3 Mallampati: 1 BRAIN HEALTH: MCI/Dementia At risk for post-op delirium ALLERGY: Note allergies as listed above Thanks, call Q's. /pablo/ RAFFI MG APRN NURSE PRACTITIONER Signed: 02/25/2023 12:46 Receipt Acknowledged By: * AWAITING SIGNATURE * ADEEL BLACKWELL ADIN 02/25/2023 13:07 /pablo/ RHYS LOJA RN REGISTERED STAFF NURSE 02/25/2023 ADDENDUM STATUS: COMPLETED [place] came back as intermediate to High risk for Right MARK surgery. Do you want him to see you again for a pause appt prior to moving any farther or can be offered a date and see you at ortho pre-op. IF ok to proceed with scheduling please place surgery request. Thank you /pablo/ RHYS LOJA RN REGISTERED STAFF NURSE Signed: 02/25/2023 13:07 Receipt Acknowledged By: * AWAITING SIGNATURE * PATITO FIGUEROA [facility] Feb 25, 2023 08:04 AM PRE OPERATIVE E & M NOTE: LOCAL TITLE: MEDICINE PRE-OP EVALUATION NOTE STANDARD TITLE: PRE OPERATIVE E & M NOTE DATE OF NOTE: FEB 25, 2023@08:04 ENTRY DATE: FEB 14, 2023@14:52:25 AUTHOR: RAFFI MG EXP COSIGNER: URGENCY: STATUS: COMPLETED MEDICINE PRE-OP EVALUATION NOTE Has ADDENDA PRE-OP MEDICAL EVALUATION Name: DONNAJUAN JR Age: 77 PLANNED SURGERY: R MARK [facility] ALLERGY: SULFAMETHOXAZOLE (Feb 07, 2022) EMPAGLIFLOZIN (Jun 06, 2022) C-MEDS: DRUG RECONCILIATION Active Medications, as listed below, has been reviewed & Discussed with Pt and discrepancies has been reconciled & resolved today. 2) ACETAMINOPHEN 500MG TAB TAKE ONE TAB Q6 HOURS PRN 3) * APIXABAN 5MG TAB TAKE ONE TAB BID 4) ARIPIPRAZOLE 20MG TAB TAKE ONE TAB DAILY 5) ATORVASTATIN CALCIUM 10MG TAB TAKE ONE TAB AT BEDTIME 6) BUPROPION HCL 150MG 24HR SA TAB TAKE ONE TAB QAM 7) CALCIUM 200MG (CA CITRATE-950MG) TAB TAKE TWO TABS BID 8) CHOLECALCIF 25MCG (D3-1,000UNIT) TAB TAKE ONE TAB DAILY 9) CYANOCOBALAMIN 1000MCG TAB TAKE ONE TAB DAILY 10) FERROUS SULFATE 325MG TAB TAKE ONE TAB DAILY 11)* INSULIN,GLARGINE 100 UNT/ML 3ML SOLOSTAR INJECT 8 UNITS DAILY 12) LIDOCAINE 5% PATCH APPLY 1 PATCH DAILY 13) MAGNESIUM OXIDE 400MG TAB TAKE TWO TABS DAILY 14)* METFORMIN HCL 500MG TAB TAKE ONE TAB DAILY 15)* METOPROLOL SUCCINATE 50MG SA TAB TAKE ONE TAB DAILY 16) MULTIVIT/OPHTH AREDS2/LUTE/ZEAX CAP/TAB TAKE 1 TAB BID 17) MULTIVITAMIN CAP/TAB TAKE 1 TAB 18) OMEPRAZOLE 20MG EC CAP TAKE ONE CAP QAM AND TAKE TWO CAPS QPM 19) SEMAGLUTIDE 0.25MG/0.375ML INJ PEN 3ML INJECT 0.25MG WEEKLY (Sundays) 20) VENLAFAXINE HCL 150MG 24HR SA CAP TAKE ONE CAP DAILY 21) ALBUTEROL 90MCG (CFC-F) 200D ORAL INHL () Active problems: A-FIB -CHADS2: 3 -On AC CVD (?) -Patient self-reports that several years ago while homeless he thought he might of had a stroke. Somewhat difficult to gather history, in 2016 he was worked up by neuro for various memory/time labs concerns. MRI at that time showed Mild amount of chronic small vessel ischemic disease HTN DM-II -FS: 120-130s when fasting, up to 200's after eating GERD Bronchiectasis -Uses albuterol inhaler PRN Gastritis Obesity MDD Anxiety Bipolar Disorder MCI/Dementia Compulsive Gambling Varicose Veins of Lower Extremity Bariatric Surgery Status Cataracts Hypermetropia/Hyperopia Astigmatism, Unspec Presbyopia Past Tobacco Use -about 20 years, quit ~30 years ago PAST SURGICAL HISTORY 2001 Gastric Bypass Submandibular gland removed benign Bilateral carpal Tunnel Release Vasectomy Umbilical Hernia Repaired X 2 2001 Cholecystectomy Childhood Tonsillectomy ROS: Relevant Details In Active Med. List Above Functional Status: Best in last 6 months: Walks w/walker, able to walk from parking lot to clinic without stopping however he is limited due to pain in knees and hip. Patient also reports a history of shortness of breath with activity, previously was on inhalers, states he occasionally uses them still. Denies chest pain pressure with activity or dizziness/syncope WC/Bed:[No] METs:[4] Frail-BMI:33.5[No] Falls:[No] CVD : IN:[No] CABG:[No] PTCA/Stent:[No] Angina/Unstable:[No] CHF:[No] LEACH:[No] Orthopnea/PND:[No] :[No] Sxs:[No] A-F/SVT/VT:[YES], DCCV/Ablation:[No] AICD Or PM:[No] ABx Prophylaxis Need: SBE:[No] Cardiac Devices:[No] PAD:[No] CVD:[No] DVT/PE):[No] unprovoked:[No] HEM: Bleeding Diathesis:[No] ASA/PLAVIX/NSAID:[No] AC:[YES] GI: [id number]:[No] Agree to blood products:[Yes] Hepatitis:[No] Cirrhosis/Stage:[No] PULM: COPD/Asthma:[No] Home O2:[No] Oral Steroid<12ths:[No] RALPH:[No} C-PAP Compliant:[No] RALPH Suspect STOP-BANG:[ ] Aspiration Risk: Dysphagia[no] Hiatal Hernia[no] GERD[no] RENAL: CKD/Stage:[No] NARDA:[No] HD-Schedule:[No] BPH/LANDAVERDE[No] ENDOC: Adreno-Suppression:[No] DM[YES] Obesity:33.5:[YES] NEURO: Seizure:[No] Neuropathy:[No] Myopathy:[No] GADGET: Brain/Spinal/Vagal stimulators, Pumps, Prosthesis:[No] ANESTH: FHx/Personal Complic.:[No] Post-Op Delirium/Confusion:[No] CHEM.DEP: ETOH:[~2 drinks/day] Smoking:[No] Illicit Subs:[No] Naltrexone (PO/IM):[No] Buprenorphine:[No] Opioid:[No] BRAIN HEALTH: Dementia/Delirium:[YES] PTSD:[No] TBI:[No] CAPRINI: VTE RISK ASSESSMENT SCORE -- VTE RISK [%] SCORE -- VTE RISK [%] (0-2) -- Low -- 0.5-1.5% (5-8) -- High -- 6.0% (3-4) -- Moderate-- 3.0% (> 8) -- Highest -- 6-18% Age: 77 (41-60= 1) (61-74= 2) (>75= 3) (3) BMI:33.5 BMI>25= 1 (1) Surgery: Minor=1, Major=2. Major (within a month) Major:1 (2) Mobility: Central-line, Bed-Rest+/- Cast<72H=1 Confined +/- Cast>72H=2 (0) Women: Estrogen//Postpar angy/Spontaneous /Still =1 (0) PMHx:IN/CHF/IBD/Malignancy /(COPD/Asthma/Abnl PFT), LE edema/Varicosity=1(1) Recent Med Hx (< month): Sepsis, Pneumonia/Serious lung disease = 1 (0) CVA, Elective TKA/MARK/Spinal injury/Bone Fx(Hip/pelvis/Leg) =5 (5) VTE: VTE Hx, FHx of VTE, Congenital or Acquired thrombophilia =3 (0) TOTAL SCORE ==>[12] EXAM: General: NAD, uses Wheeled walker for mobility Ht:68 in [172.7 cm], BMI/Wt:31.6/207.2 lb [93.98 kg], RR:16, Temp:98.5 F [36.9 C], HR:77, BP:118/77 (02/25/2023 09:35) Mental Status: Normal: [Yes] Neck ROM: Normal:[Yes] Limited:[No] Trachea Midline:[Yes] Mouth Opening(Fingers): 3 Mallampati: 2 Teeth: WNL:[Yes] Loose:[No] Edentulous:[No] Lungs: CTA Heart: Rhythm: RRR. No Murmur. Extremity: LE edema: 1+ BLE LABS: SODIUM 144 (02/13/23) POTASSIUM 3.9 (02/13/23) UREA NITROGEN 16 (02/13/23) CREATININE 1.3 H (02/13/23) GLUCOSE 129 H (02/13/23) ALBUMIN 3.8 (02/13/23) WBC 7.60 (02/13/23) HGB 12.6 L (02/13/23) PLT 246 (02/13/23) INR 1.3 H (02/13/23) 02/13/2023 HEMOGLOBIN A1C 7.4 H % 4.0 - 6.0 HR: 78 Rhythm[NSR], low voltage QRS, cannot rule out anterior infarct, Date: 02/25/23 09/24/2017 CARDIOVASCULAR STRESS TEST 37882 Verified 1092 1. No ischemia demonstrated. 2. Left ventricular ejection fraction is 54 %. No focal wall motion abnormality. RISK ASSESSMENT: JUAN THOMPSON JR is a 77 Y-O, Vet, With Med Hx as outlined above. Has known DM-II, bronchiectasis/COPD, CVD (?), CKD IIIa (? will recheck DOS).endorses baseline shortness of breath with activity that has been present for several years, uses albuterol inhaler as needed. Denies other Cardio-Pulmonary disease symptoms BUT has been relatively inactive as noted above, METS (4).somewhat difficult to gather history from patient reports that possibly in 2016 he had a stroke, reviewed neurology notes which did not appear to diagnose patient with stroke at that time. Labs, EKG, and Exam are as outlined & sign. for: Cr 1.3, Hgb 12.6, INR 1.3. Risk for the planned surgery relate to: Age, CVD (?), DM-II, CKD IIIa (?), A-fib, bronchiectasis, gastritis, dementia, and physical deconditioning. RCRI SCORE/RISK: ONE-TWO (DM-II and CVD (?)) INTERMEDIATE-HIGH RISK FOR THE PLANNED SURGERY FOR CARDIO-PULMONARY COMPLICATION I HAVE DISCUSSED WITH PATENT TODAY ALL THE ABOVE LISTED LABS:(CBC, SMA-7, INR)& EKG DONE TODAY. ALSO DISCUSSED ARE OTHER PERTINENT TESTS OUTLINED ABOVE. RECOMMENDATIONS: OPTIMIZATION FOR SURGERY Recheck Creatinine at Follow up appointment and or DOS CARDIAC: Known A-fib and CVD (?) At risk for RVR and ischemia/IN Hold apixaban 2 days Preop & day of surgery; resume per surgeon Stop Vitamins/Minerals/Suppleme nts 7 days Pre-op Give Metoprolol AM of OP Monitor Vitals & for Angina & Arrhythmia greg-op PULMONARY: Known Obesity and Bronchiectasis. Non Smoker. At risk for exacerbation Continue current inhaler therapy Albuterol nebs PRN greg-OP Incentive spirometry -Encourage use post-OP Keep head of bed elevated greg-OP when possible DM-II: Reasonably controlled, A1C 7.4% Give 1/2 Dose of Insulin Glargine AM of OP, 4 Units Hold Metformin AM of OP Monitor FSBG closely greg-OP Aspart Insulin SQ PRN FSBG Greg-OP RENAL: CKD-IIIa (?), Cr 1.3, slight elevation from baseline At risk for NARDA, monitor for worsening signs/symptoms Avoid NSAID and contrast dye Monitor Cr and K+ closely greg-OP ANEMIA: Hgb 12.6 Monitor HGB closely greg-OP Transfuse to keep HGB > 7.0 post-OP DVT PROPHYLAXIS: No Hx of DVT or Hypercoagulable state. CAPRINI SCORE:[12] == DVT/PE RISK: HIGHEST [6-18%] DVT PROPHYLAXIS RECOMMENDATION: Per surgical service ANESTHESIA: Oral Opening Fingers: 3 Mallampati: 1 BRAIN HEALTH: MCI/Dementia At risk for post-op delirium ALLERGY: Note allergies as listed above Thanks, call Q's. /pablo/ RAFFI MG APRN NURSE PRACTITIONER Signed: 02/25/2023 12:46 Receipt Acknowledged By: 02/25/2023 13:42 /pablo/ Adeel Blackwell RN RN OR 02/25/2023 13:07 /pablo/ RHYS LOJA RN REGISTERED STAFF NURSE 02/25/2023 ADDENDUM STATUS: COMPLETED Ice Cutter called Guardimalu Cline at [phone] and discussed appointment and findings. Nathalie appreciated call and would also like call w/updates from surgery coordinators with next step in process for surgery. /pablo/ RAFFI MG APRN NURSE PRACTITIONER Signed: 02/25/2023 12:55 Receipt Acknowledged By: 02/25/2023 13:39 /pablo/ Adeel Blackwell RN RN OR 02/25/2023 13:07 /pablo/ RHYS LOJA RN REGISTERED STAFF NURSE 02/25/2023 ADDENDUM STATUS: COMPLETED [place] came back as intermediate to High risk for Right MARK surgery. Do you want him to see you again for a pause appt prior to moving any farther or can seth be offered a date and see you at ortho pre-op. IF ok to proceed with scheduling please place surgery request. Thank you /pablo/ RHYS LOJA RN REGISTERED STAFF NURSE Signed: 02/25/2023 13:07 Receipt Acknowledged By: 02/27/2023 12:03 /pablo/ PATITO FIGUEROA MD STAFF SURGEON 02/27/2023 ADDENDUM STATUS: COMPLETED order placed for [facility] up at [facility] on 04/15/23 /pablo/ PATITO FIGUEROA MD STAFF SURGEON Signed: 02/27/2023 12:06 Receipt Acknowledged By: 02/27/2023 15:30 /pablo/ RHYS LOJA RN REGISTERED STAFF NURSE 02/27/2023 ADDENDUM STATUS: COMPLETED Ice Cutter called to review surgeon would like to see him before moving any farther with surgery. No answer left vm Ice Cutter called his deidra Harris. She stated that is not good with checking vms. She was in agreement with meeting in mar to discuss next steps. Understands no surgery offered at that time. Nathalie requested a morning appt for follow up-- Scheduled on 04/19 due to availability of provider. She will inform the patient. Stressed if surgery is decided we are able to pick a date for surgery. She has global technical writer's direct number incase she has any questions or concerns between now and surgery FYI to Dr. Figueroa- will follow up with you on 04/19 to discuss his Right hip. /pablo/ RHYS LOJA RN REGISTERED STAFF NURSE Signed: 02/27/2023 15:30 Receipt Acknowledged By: * AWAITING SIGNATURE * PATITO FIGUEROA,RAFFI [facility]
--- OUTSIDE RECORDS SUMMARY | 2023-08-13 12:34 | XMS_ITS | Encounter Summary ---
Author Name [employer] [facility] [employer] Organization [facility] Address [address] [place] [address] Support Name Relationship Address Phone DONNA SIRIA Next of Kin [address] [place], [place] [id number] SIRIA THOMPSON Emergency Contact [address] [place] [id number] NATHALIE DING Emergency Contact Unknown Insurance Providers: [...] PART A Sep 26, 2012 PART A [id number] [facility] [phone] JUAN THOMPSON JR PATIENT MEDICARE (WNR) MEDICARE (M) PART B Sep 26, 2012 PART B [id number] [facility] [phone] JUAN THOMPSON JR PATIENT Selected Encounter This section includes the information on record at MD for the Encounter. Date/Time Encounter Type Encounter Description Reason Pro vider Source Feb 20, 2023 09:52 AM Outpatient Encounter TELEPHONE [facility] Encounter Template Text not used by MD [...] 20 appointments. The data comes from all [facility]. Appointment Date/Time Appointment Type Appointme nt Facility Name Feb 25, 2023 09:15 AM [facility] Feb 25, 2023 09[facility]30 [facility] Feb 25, 2023 11:00 AM [place] [facility] Mar 07, 2023 08:30 AM [facility] Mar 31, 2023 07:00 AM [place] [facility] Apr 19, 2023 10:30 AM [place] [facility] May 14, 2023 10:00 AM [place] [facility] May 20, 2023 08:00 AM [place] [facility] Jun 17, 2023 08:30 AM AMBULATORY - REHAB MEDICIN [place] [facility] Jun 21, 2023 05:10 PM AMBULATORY - REHAB MEDICIN E [facility] Jul 11, 2023 10:00 AM [facility] Jul 11, 2023 11:15 AM [facility] Aug 21, 2023 10:30 AM [place] [place] [facility] Active, Pending, and Scheduled Orders This section includes a listing of several types of active, pending, and scheduled orders, including clinic medications orders, diagnostic test orders, procedure orders and consult orders; where the start date of the order is 45 days before the date of the Encounter or 45 days after the date of theEncounter. The data comes from all [facility]. Test Date/Time Test Type Test Details Facility Name Feb 13, 2023 12:00 AM Laboratory - Blood Bank Order TYPE & SCREEN - LAB BLOOD SP [facility] Lab Results: +/- 30 days [...] Range Comment Feb 13, 2023 03:07 PM [facility] ALBUMIN Specimen Type: PLASMA No comment entered. Ordering Provider: KAMAR VARELA Report Released Date/Time: Feb 13, 2023 01:44 PM Reporting Lab: [facility] [id number] Performing Lab: [facility] [id number] ALBUMIN 3.8 3.5-5.2 Feb 13, 2023 03:07 PM [facility] PROTHROMBIN TIME/INR Specimen Type: PLASMA No comment entered. Ordering Provider: KAMAR VARELA Report Released Date/Time: Feb 13, 2023 01:44 PM Reporting Lab: [facility] [id number] Performing Lab: [facility] [id number] .INR 1.3 H 0.8-1.1 .PT 15.5 H 9.4-12.5 Feb 13, 2023 03:07 PM [facility] BASIC METABOLIC PANEL+MG Specimen Type: PLASMA No comment entered. Ordering Provider: KAMAR VARELA Report Released Date/Time: Feb 13, 2023 01:44 PM Reporting Lab: [facility] [id number] Performing Lab: [facility] [id number] CREATININE 1.3 H 0.7-1.2 UREA NITROGEN 16 8-26 GLUCOSE 129 H 70-100 SODIUM 144 136-145 POTASSIUM 3.9 3.5-5.1 CHLORIDE 105 98-107 CO2 32 H 22-29 CALCIUM 9.1 8.4-10.2 MAGNESIUM 1.8 1.6-2.6 ANION GAP 7 5-15 .CREAT EGFR(CKD-EPI) 57 L See_Comment Feb 13, 2023 03:07 PM [facility] HEMOGLOBIN A1C Specimen Type: BLOOD [...] Feb 13, 2023 01:44 PM Reporting Lab: [facility] [id number] Performing Lab: [facility] [phone] HEMOGLOBIN A1C 7.4 H 4.0-6.0 Feb 13, 2023 03:07 PM [facility] CBC & DIFF Specimen Type: BLOOD Comment: Automated Differential Performed Ordering Provider: KAMAR VARELA Report Released Date/Time: Feb 13, 2023 01:44 PM Reporting Lab: [facility] [id number] Performing Lab: [facility] [id number] WBC 7.60 4.0-11.0 RBC 4.50 L 4.6-6.2 [...] benítezy Aug 15, 2022 09:00 AM VA-TOBACCO FORMER USER [facility] Tobacco Use History This section includes a history of the smoking, or tobacco-related health factors, that were collected on or before the date of the Encounter. The data comes from the MD facility where the Encounter took place. Date/Time Smoking Status/Tobacco Use Comment [facility] Aug 15, 2022 09:00 AM MD-TOBACCO QUIT 15 YRS OR MORE [facility] Aug 21, 2021 01:00 PM VA-TOBACCO FORMER USER [facility] Aug 21, 2021 01:00 PM VA-TOBACCO QUIT 15 YRS OR MORE [facility] Jul 09, 2018 08:58 AM VA-TOBACCO FORMER USER [facility] Jul 09, 2018 08:58 AM VA-TOBACCO QUIT 15 YRS OR MORE [facility] Jul 18, 2017 09:58 AM FORMER TOBACCO USER 7Y OR GREATE R [facility] Aug 14, 2016 10:59 AM FORMER TOBACCO USER 7Y OR GREATE R [facility] Jun 29, 2015 02:03 PM FORMER TOBACCO USER 7Y OR GREATE R [facility] Jan 06, 2014 03:04 PM FORMER TOBACCO USER 7Y OR GREATE R [facility] Jan 04, 2012 08:36 AM FORMER TOBACCO USER 7Y OR GREATE R [facility] Encounter Notes: All associated encounter notes This section contains the clinical notes associated to the Encounter. Date/Time Encounter Note(s) Provider Source Feb 20, 2023 09:52 AM REPORT OF CONTACT: LOCAL TITLE: PATIENT CONTACT NOTE STANDARD TITLE: REPORT OF CONTACT DATE OF NOTE: FEB 20, 2023@09:52 ENTRY DATE: FEB 20, 2023@09:52:24 AUTHOR: JAMIE LYLES EXP COSIGNER: URGENCY: STATUS: COMPLETED Patient contact Name of [place]: JUAN THOMPSON SIRIA LANDAVERDE Name/Relationship of Contact if other than : Date & Time of Contact: Jan@09:52 Type of Contact: Telephone Reason for Contact: Received voicemail from [place], stating that he was informed that his rep payee is being changed and that he has no information on this change. He stated that this was through [facility] and that they were cutting me loose. He was seeking additional information about this change. This ticket writer met with the for a neuropsychological evaluation in December 2022 and I do not see any information in the [place]'s medical chart about the issues he described. I left a HIPAA-compliant message for Mr. Thompson, providing [facility][phone][facility] as is listed in his medical chart and encouraging him to contact them to seek more information. /pablo/ JAMIE LYLES, PHD, LP, ABPP STAFF NEUROPSYCHOLIGST Signed: 02/20/2023 09:55 JAMIE LYLES [facility]
--- OUTSIDE RECORDS SUMMARY | 2023-08-13 12:35 | XMS_ITS | Encounter Summary ---
Author Name Department of Vetera Affairs Organization Department of Vetera ns Affairs Address [address] [place] [address] Support Name Relationship Address Phone SIRIA THOMPSON Next of Kin [address] [place], [place] [phone] SIRIA THOMPSON Emergency Contact [address] [place] [phone] NATHALIE DING Emergency Contact Unknown Insurance Providers: [...] PART A Sep 26, 2012 PART A [id number] [facility] [phone] JUAN THOMPSON JR PATIENT MEDICARE (WNR) MEDICARE (M) PART B Sep 26, 2012 PART B [id number] [phone] JUAN THOMPSON JR PATIENT Selected Encounter This section includes the information on record at [place] for the Encounter. Date/Time Encounter Type Encounter Description Reason Pro vider Source Feb 25, 2023 11:00 AM Outpatient Encounter TELEPHONE/MEDICINE E Encounter Template Text not used by MA Plan of Treatment: Future Appointments (+ 6 months) and Future Tests (+/- 45 days) The Plan of Treatment section includes future care activities for the patient from all [place] treatmentfacilities. This section includes future appointments and future orders which are active, pending or scheduled. Future Appointments This section includes appointments that were scheduled to occur 6 months from the date of the Encounter, up to a maximum of 20 appointments. The data comes from all [facility]. Appointment Date/Time Appointment Type Appointme nt Facility Name Mar 07, 2023 08:30 AM [facility] Mar 31, 2023 07:00 AM AMBULATORY - NONE [facility] Apr 19, 2023 10:30 AM [place] [place] [facility] May 14, 2023 10:00 AM [place] [place] [facility] [facility] May 20, 2023 08:00 AM [place] [facility] Jun 17, 2023 08:30 AM AMBULATORY - REHAB MEDICIN E [facility] Jun 21, 2023 05:10 PM AMBULATORY - REHAB MEDICIN E [facility] Jul 11, 2023 10:00 AM AMBULATORY - MEDICINE [facility] Jul 11, 2023 11:15 AM AMBULATORY - MEDICINE [facility] Aug 21, 2023 10:30 AM [facility] [place] [facility] Active, Pending, and Scheduled Orders This section includes a listing of several types of active, pending, and scheduled orders, including clinic medications orders, diagnostic test orders, procedure orders and consult orders; where the start date of the order is 45 days before the date of the Encounter or 45 days after the date of theEncounter. The data comes from all [facility]. Test Date/Time Test Type Test Details Facility Name Feb 13, 2023 12:00 AM Laboratory - Blood Bank Order TYPE & SCREEN - LAB BLOOD SP [facility] Lab Results: +/- 30 days of the encounter This section includes the Chemistry and Hematology Lab Results on record with MA for the patient. Radiology Reports and Pathology Reports are provided separately, in subsequent sections. Lab Results This section contains the Chemistry/Hematology Results that were resulted 30 days before or 30 daysafter the date of the Encounter. Date/Time Source Result Type Result - Unit Interpretation Reference Range Comment Feb 13, 2023 03:07 PM [facility] ALBUMIN Specimen Type: PLASMA No comment entered. Ordering Provider: KAMAR VARELA Report Released Date/Time: Feb 13, 2023 01:44 PM Reporting Lab: [facility] [id number] Performing Lab: [facility] [id number] ALBUMIN 3.8 3.5-5.2 Feb 13, 2023 03:07 PM [facility] HEMOGLOBIN A1C Specimen Type: BLOOD Comment: Values [...] Feb 13, 2023 01:44 PM Reporting Lab: [facility] [id number] Performing Lab: [facility] [address] HEMOGLOBIN A1C 7.4 H 4.0-6.0 Feb 13, 2023 03:07 PM [facility] PROTHROMBIN TIME/INR Specimen Type: PLASMA No comment entered. Ordering Provider: KAMAR VARELA Report Released Date/Time: Feb 13, 2023 01:44 PM Reporting Lab: [facility] [id number] Performing Lab: [facility] [address] .INR 1.3 H 0.8-1.1 .PT 15.5 H 9.4-12.5 Feb 13, 2023 03:07 PM [facility] BASIC METABOLIC PANEL+MG Specimen Type: PLASMA No comment entered. Ordering Provider: KAMAR VARELA Report Released Date/Time: Feb 13, 2023 01:44 PM Reporting Lab: [facility] [id number] Performing Lab: [facility] [address] CREATININE 1.3 H 0.7-1.2 UREA NITROGEN 16 8-26 GLUCOSE 129 H 70-100 SODIUM 144 136-145 POTASSIUM 3.9 3.5-5.1 CHLORIDE 105 98-107 CO2 32 H 22-29 CALCIUM 9.1 8.4-10.2 MAGNESIUM 1.8 1.6-2.6 ANION GAP 7 5-15 .CREAT EGFR(CKD-EPI) 57 L See_Comment Feb 13, 2023 03:07 PM [facility] CBC & DIFF Specimen Type: BLOOD Comment: Automated Differential Performed Ordering Provider: KAMAR VARELA Report Released Date/Time: Feb 13, 2023 01:44 PM Reporting Lab: [facility] [id number] Performing Lab: [facility] [address] WBC 7.60 4.0-11.0 RBC 4.50 L 4.6-6.2 [...] 98 % 68 in 207.2 lb 32 [place] [facility] [facility] Social History: Smoking Status (Most current) and Tobacco Use (All prior to encounter date) This section includes the most current, and the historical, smoking and tobacco- related health factors from the [place] facility where the Encounter took place. Current Smoking Status This section includes the most current smoking, or tobacco-related health factor, from the [place] facility where the Encounter took place. Date/Time Current Smoking Status Comment Aj woods Aug 15, 2022 09:00 AM VA-TOBACCO FORMER USER [facility] Tobacco Use History This section includes a history of the smoking, or tobacco-related health factors, that were collected on or before the date of the Encounter. The data comes from the [place] facility where the Encounter took place. Date/Time Smoking Status/Tobacco Use Comment F pérez Aug 15, 2022 09:00 AM VA-TOBACCO QUIT 15 YRS OR MORE [facility] Aug 21, 2021 01:00 PM VA-TOBACCO FORMER USER [facility] Aug 21, 2021 01:00 PM VA-TOBACCO QUIT 15 YRS OR MORE [facility] Jul 09, 2018 08:58 AM VA-TOBACCO FORMER USER [facility] Jul 09, 2018 08:58 AM VA-TOBACCO QUIT 15 YRS OR MORE [facility] Jul 18, 2017 09:58 AM FORMER TOBACCO USER 7Y OR GREATE R [facility] Aug 14, 2016 10:59 AM FORMER TOBACCO USER 7Y OR GREATE R [facility] Jun 29, 2015 02:03 PM FORMER TOBACCO USER 7Y OR GREATE R [facility] Jan 06, 2014 03:04 PM FORMER TOBACCO USER 7Y OR GREATE R [facility] Jan 04, 2012 08:36 AM FORMER TOBACCO USER 7Y OR GREATE R [facility] Encounter Notes: All associated encounter notes This section contains the clinical notes associated to the Encounter. Date/Time Encounter Note(s) Provider Source Feb 25, 2023 11:12 AM NO SHOW NOTE: LOCAL TITLE: NO SHOW/CANCELLATION CLINIC NOTE STANDARD TITLE: NO SHOW NOTE DATE OF NOTE: FEB 25, 2023@11:12 ENTRY DATE: FEB 25, 2023@11:12:44 AUTHOR: JACOBO HAMILTON EXP COSIGNER: URGENCY: STATUS: COMPLETED [place] not seen for scheduled appointment due to: Attempted to contact patient for scheduled metabolic RN phone appointment. No answer and patient's voicemail box is full. /pablo/ JACOBO HAMILTON RN Signed: 02/25/2023 11:14 JACOBO HAMILTON [facility]
--- OUTSIDE RECORDS SUMMARY | 2023-08-13 12:35 | XMS_ITS | Encounter Summary ---
Author Name Department of Vetera Affairs Organization Department of Vetera ns Affairs Address [address] [place] [address] Support Name Relationship Address Phone SIRIA THOMPSON Next of Kin [address] [place], [place] [phone] SIRIA THOMPSON Emergency Contact [address] [place] [phone] NATHALIE DING Emergency Contact Unknown Insurance Providers: [...] PART A Sep 26, [id number] [facility] [phone] JUAN THOMPSON JR PATIENT MEDICARE (WNR) MEDICARE (M) PART B Sep 26, [id number] [facility] [phone] JUAN THOMPSON JR PATIENT Selected Encounter This section includes the information on record at [place] for the Encounter. Date/Time Encounter Type Encounter Description Reason Pro vider Source May 14, 2023 10:00 AM Outpatient Encounter PSYCHOGERIATRIC - INDIVIDUAL IHE Encounter Template Text not used by [place] Plan of Treatment: Future Appointments (+ 6 [...] 20 appointments. The data comes from all [facility] facilities. Appointment Date/Time Appointment Type Appointme nt Facility Name May 20, 2023 08:00 AM AMBULATORY [place]ATRY [place] [facility] Jun 17, 2023 08:30 AM AMBULATORY - REHAB MEDICIN E [facility] Jun 21, 2023 05:10 PM AMBULATORY - REHAB MEDICIN E [facility] Jul 11, 2023 10:00 AM AMBULATORY - MEDICINE [facility] Jul 11, 2023 11:15 AM AMBULATORY - MEDICINE [facility] Aug 21, 2023 10:30 AM AMBUL[place]ORY [place]ATRY [place] [facility] Nov 07, 2023 09:30 AM AMBULATORY - MEDICINE [facility] Nov 07, 2023 10:30 AM AM[facility]ULATORY [facility] MEDICINE [facility] Social History: Smoking Status (Most current) and Tobacco Use (All prior to encounter date) This section includes the most current, and the historical, smoking and tobacco- related health factors from the [place] facility where the Encounter took place. Current Smoking Status This section includes the most current smoking, or tobacco-related health factor, from the [place] facility where the Encounter took place. Date/Time Current Smoking Status Comment Facil ity Aug 15, 2022 09:00 AM VA-TOBACCO FORMER USER [facility] Tobacco Use History This section includes a history of the smoking, or tobacco-related health factors, that were collected on or before the date of the Encounter. The data comes from the [place] facility where the Encounter took place. Date/Time Smoking Status/Tobacco Use Comment F acility Aug 15, 2022 09:00 AM VA-TOBACCO QUIT [address] [facility] Aug 21, 2021 01:00 PM VA-TOBACCO FORMER USER [facility] Aug 21, 2021 01:00 PM VA-TOBACCO QUIT [address] [facility] Jul 09, 2018 08:58 AM VA-TOBACCO FORMER USER [facility] Jul 09, 2018 08:58 AM VA-TOBACCO QUIT [address] [facility] Jul 18, 2017 09:58 AM FORMER TOBACCO USER 7Y OR GREATE R [facility] Aug 14, 2016 10:59 AM FORMER TOBACCO USER 7Y OR GREATE R [facility] Jun 29, 2015 02:03 PM FORMER TOBACCO USER 7Y OR GREATE R [facility] Jan 06, 2014 03:04 PM FORMER TOBACCO USER 7Y OR K[facility]H Khan [facility] Jan 04, 2012 08:36 AM FORMER TOBACCO USER 7Y OR [facility]H Khan [facility] Encounter Notes: All associated encounter notes This section contains the clinical notes associated to the Encounter. Date/Time Encounter Note(s) Provider Source Feb 20, 2023 02:58 PM MENTAL HEALTH ADMINISTRATIVE NOTE: LOCAL TITLE: MHTC ASSIGNMENT/REASSIGNMENT NOTE STANDARD TITLE: MENTAL HEALTH ADMINISTRATIVE NOTE DATE OF NOTE: FEB 20, 2023@14:58 ENTRY DATE: FEB 20, 2023@14:59 AUTHOR: USHA PURI EXP COSIGNER: URGENCY: STATUS: COMPLETED MHTC Reassignment This note documents the reassignment of the [facility] [employer] (MHTC) on Jan. The 's new Mental Health Meter Tester [employer] is: MHTC Name: Jesus Alberto Rojas MHTC Contact information: Office Other contact: This [facility] existing MHTC was reassigned due to: Dr. Puri leaving [facility] The assignment of the MHTC and education on the role of the MHTC in the 's mental health care was discussed with the Scott, who verbally concurred with the reassignment. The new MHTC's contact information was provided in writing to . The 's CPRS chart (i.e., PCMM) and MH Treatment Plan have been updated to reflect the new MHTC Assignment. The [facility] new MHTC, along with the previous MHTC if applicable, are included as additional signers on this note. /pablo/ USHA PURI MD Staff Psychiatrist Signed: 02/20/2023 14:59 Receipt Acknowledged By: 02/22/2023 15:13 /pablo/ FAWAD CRENSHAW PIPE SMOKING MACHINE OFFBEARER USHA PURI [facility]
--- OUTSIDE RECORDS SUMMARY | 2023-08-13 12:35 | XMS_ITS | Encounter Summary ---
Author Name Department of Vetera Affairs Organization Department of Vetera ns Affairs Address [address] [place] [address] Support Name Relationship Address Phone DONNA SIRIA Next of Kin [address] [place], [place] [phone] SIRIA THOMPSON Emergency Contact [address] [place] [phone] NATHALIE DING Emergency Contact Unknown Insurance Providers: [...] PART A Sep 26, 2012 PART A [id number] [facility] [phone] JUAN THOMPSON JR PATIENT MEDICARE (WNR) MEDICARE (M) PART B Sep 26, 2012 PART B [id number] JUAN THOMPSON JR PATIENT Selected Encounter This section includes the information on record at [place] for the Encounter. Date/Time Encounter Type Encounter Description Reason Pro vider Source Feb 23, 2023 12:28 PM Outpatient Encounter TELEPHONE TRIAGE IHE Encounter Template Text not used by [place] Plan of Treatment: Future Appointments (+ 6 months) and Future Tests (+/- 45 days) The Plan of Treatment section includes future care activities for the patient from all [place] treatmentfacilities. This section includes future appointments and future orders which are active, pending or scheduled. Future Appointments This section includes appointments that were scheduled to occur 6 months from the date of the Encounter, up to a maximum of 20 appointments. The data comes from all [facility]. Appointment Date/Time Appointment Type Appointme nt Facility Name Feb 25, 2023 09:15 AM [facility] Feb 25[facility] 2023 09:30 AM [place] [facility] Feb 25, 2023 11:00 AM [place] [facility] Mar 07, 2023 08:30 AM [place]IC[place] [facility] Mar 31, 2023 07:00 AM [place]ORY - [place]ONE [place] [facility] Apr 19, 2023 10:30 AM AMB[place]ORY [place]GERY [place] [facility] May 14, 2023 10:00 AM [facility] May 20[facility] 2023 08:00 AM [facility] [place] [facility] [facility] Jun 17, 2023 08:30 AM AMBULATORY - REHAB MEDICIN E [facility] Jun 21, 2023 05:10 PM AMBULATORY - REHAB MEDICIN E [facility] Jul 11, 2023 10:00 AM [facility] Jul 11, 2023 11:15 AM [facility] Aug 21, 2023 10:30 AM [facility] [place] [facility] Active, Pending, and Scheduled Orders This section includes a listing of several types of active, pending, and scheduled orders, including clinic medications orders, diagnostic test orders, procedure orders and consult orders; where the start date of the order is 45 days before the date of the Encounter or 45 days after the date of theEncounter. The data comes from all [facility]. Test Date/Time Test Type Test Details Facility Name Feb 13, 2023 12:00 AM Laboratory - Blood Bank Order TYPE & SCREEN - LAB BLOOD SP [facility] Lab Results: +/- 30 [...] Range Comment Feb 13, 2023 03:07 PM [facility] HEMOGLOBIN A1C Specimen Type: BLOOD Comment: [...] 13, 2023 01:44 PM Reporting Lab: [facility] [id number] Performing Lab: [facility] [address] HEMOGLOBIN A1C 7.4 H 4.0-6.0 Feb 13, 2023 03:07 PM [facility] PROTHROMBIN TIME/INR Specimen Type: PLASMA No comment entered. Ordering Provider: KAMAR VARELA Report Released Date/Time: Feb 13, 2023 01:44 PM Reporting Lab: [facility] [id number] Performing Lab: [facility] [address] .INR 1.3 H 0.8-1.1 .PT 15.5 H 9.4-12.5 Feb 13, 2023 03:07 PM [facility] ALBUMIN Specimen Type: PLASMA No comment entered. Ordering Provider: KAMAR VARELA Report Released Date/Time: Feb 13, 2023 01:44 PM Reporting Lab: [facility] [address] Performing Lab: [facility] [address] ALBUMIN 3.8 3.5-5.2 Feb 13, 2023 03:07 PM [facility] BASIC METABOLIC PANEL+MG Specimen Type: PLASMA No comment entered. Ordering Provider: KAMAR VARELA Report Released Date/Time: Feb 13, 2023 01:44 PM Reporting Lab: [facility] [address] Performing Lab: [facility] [address] CREATININE 1.3 H 0.7-1.2 UREA NITROGEN 16 8-26 GLUCOSE 129 H 70-100 SODIUM 144 136-145 POTASSIUM 3.9 3.5-5.1 CHLORIDE 105 98-107 CO2 32 H 22-29 CALCIUM 9.1 8.4-10.2 MAGNESIUM 1.8 1.6-2.6 ANION GAP 7 5-15 .CREAT EGFR(CKD-EPI) 57 L See_Comment Feb 13, 2023 03:07 PM [facility] CBC & DIFF Specimen Type: BLOOD Comment: Automated Differential Performed Ordering Provider: KAMAR VARELA Report Released Date/Time: Feb 13, 2023 01:44 PM Reporting Lab: [facility] [address] Performing Lab: [facility] [address] WBC 7.60 4.0-11.0 RBC 4.50 L 4.6-6.2 [...] 15, 2022 09:00 AM VA-TOBACCO FORMER USER [facility] Tobacco Use History This section includes a history of the smoking, or tobacco-related health factors, that were collected on or before the date of the Encounter. The data comes from the [place] facility where the Encounter took place. Date/Time Smoking Status/Tobacco Use Comment F accelia Aug 15, 2022 09:00 AM [place]-TOBACCO QUIT 15 YRS OR MORE [facility] Aug 21, 2021 01:00 PM VA-TOBACCO FORMER USER [facility] Aug 21, 2021 01:00 PM VA-TOBACCO QUIT 15 YRS OR MORE [facility] Jul 09, 2018 08:58 AM VA-TOBACCO FORMER USER [facility] Jul 09, 2018 08:58 AM VA-TOBACCO QUIT 15 YRS OR MORE [facility] Jul 18, 2017 09:58 AM FORMER TOBACCO USER 7Y OR GREATE R [facility] Aug 14, 2016 10:59 AM FORMER TOBACCO USER 7Y OR GREATE R [facility] Jun 29, 2015 02:03 PM FORMER TOBACCO USER 7Y OR GREATE R [facility] Jan 06, 2014 03:04 PM FORMER TOBACCO USER 7Y OR GREATE R [facility] Jan 04, 2012 08:36 AM FORMER TOBACCO USER 7Y OR GREATE R [facility] Encounter Notes: All associated encounter notes This section contains the clinical notes associated to the Encounter. Date/Time Encounter Note(s) Provider Source Feb 25, 2023 10:27 AM ADDENDUM: LOCAL TITLE: Addendum STANDARD TITLE: ADDENDUM DATE OF NOTE: FEB 25, 2023@10:27:13 ENTRY DATE: FEB 25, 2023@10:27:14 AUTHOR: ANTOINETTE VERNON EXP COSIGNER: URGENCY: STATUS: COMPLETED Will alert metabolic RN to above request from patient to be seen in person rather than phone. /pablo/ ANTOINETTE VERNON MA, RN, [facility] REGISTERED NURSE Signed: 02/25/2023 10:27 Receipt Acknowledged By: 02/25/2023 11:19 /pablo/ JACOBO HAMILTON RN for MIGUEL ANGEL WHITLOCK 02/25/2023 10:54 /es/ RAFFI MG APRN NURSE PRACTITIONER --- Original Document --- 02/23/23 CCC: SCHEDULING ADMINISTRATION: Patient would rather come into the office since he has a prior appointment at 9:30. He states, he has a hard time with his cell phone. Please contact Patient in Preop with Lázaro. APPT: 02/25/2023 @ 11:00 MSP METABOLIC PHONE CHINYERE ARORA /pablo/ JAZ FORD ADVANCED LAB NURSE Signed: 02/23/2023 12:29 Receipt Acknowledged By: 02/25/2023 09:23 /pablo/ TYSHAWN AWAN [facility] 02/25/2023 10:29 /es/ ANTOINETTE VERNON MA, RN, CCCTM REGISTERED NURSE for SIOMARA AMARALANTOINETTE SMITH [facility] Feb 23, 2023 12:28 PM ADMINISTRATIVE NOT E: LOCAL TITLE: CCC: SCHEDULING ADMINISTRATION STANDARD TITLE: ADMINISTRATIVE NOTE DATE OF NOTE: FEB 23, 2023@12:28 ENTRY DATE: FEB 23, 2023@12:28:33 AUTHOR: JAZ FORD EXP COSIGNER: URGENCY: STATUS: COMPLETED CCC: SCHEDULING ADMINISTRATION Has ADDENDA Patient would rather come into the office since he has a prior appointment at 9:30. He states, he has a hard time with his cell phone. Please contact Patient in Preop with Lázaro. APPT: 02/25/2023 @ 11:00 MSP METABOLIC PHONE CHINYERE ARORA /pablo/ JAZ FORD ADVANCED LAB NURSE Signed: 02/23/2023 12:29 Receipt Acknowledged By: 02/25/2023 09:23 /es/ [facility]WN [facility] 02/25/2023 10:29 /es/ ANTOINETTE VERNON MA, RN, CCCTM REGISTERED NURSE for SIOMARA SNYDER 02/25/2023 ADDENDUM STATUS: COMPLETED Will alert metabolic RN to above request from patient to be seen in person rather than phone. /pablo/ ANTOINETTE VERNON MA, RN, CCCTM REGISTERED NURSE Signed: 02/25/2023 10:27 Receipt Acknowledged By: * AWAITING SIGNATURE * MIGUEL ANGEL WHITLOCK * AWAITING SIGNATURE * RAFFI MG TONJUA D [facility]
--- OUTSIDE RECORDS SUMMARY | 2023-08-13 12:36 | XMS_ITS | Encounter Summary ---
Author Name Department of Vetera Affairs Organization Department of Vetera ns Affairs Address [address] [place] [address] Support Name Relationship Address Phone SIRIA THOMPSON Next of Kin [address] [place], [place] [phone] SIRIA THOMPSON Emergency Contact [address] [place] [phone] NATHALIE DING Emergency Contact Unknown [phone] Insurance Providers: All historical and current Section [...] PART A Sep 26, 2012 PART A [id number] [facility] [phone] JUAN THOMPSON JR PATIENT MEDICARE (WNR) MEDICARE (M) PART B Sep 26, 2012 PART B [id number] [phone] JUAN THOMPSON JR PATIENT Selected Encounter This section includes the information on record at [place] for the Encounter. Date/Time Encounter Type Encounter Description Reason Pro vider Source Mar 05, 2023 12:00 AM Outpatient Encounter COMMUNITY CARE CONSULT IHE Encounter Template Text not used by [...] 20 appointments. The data comes from all [facility]. Appointment Date/Time Appointment Type Appointme nt Facility Name Mar 07, 2023 08:30 AM [facility] Mar 31, 2023 07:00 AM AMBULATORY - NONE [facility] Apr 19, 2023 10:30 AM AM[place] [facility] May 14, 2023 10:00 AM [facility] May 20, 2023 08:00 AM [facility] Jun 17, 2023 08:30 AM AMBULATORY - REHAB MEDICIN E [facility] Jun 21, 2023 05:10 PM AMBULATORY - REHAB MEDICIN E [facility] Jul 11, 2023 10:00 AM AMBULATORY - MEDICINE [facility] Jul 11, 2023 11:15 AM AMBULATORY - MEDICINE [facility] Aug 21, 2023 10:30 AM AMBULATORY - PSYCHIATRY [facility] Active, Pending, and Scheduled Orders This section includes a listing of several types of active, pending, and scheduled orders, including clinic medications orders, diagnostic test orders, procedure orders and consult orders; where the start date of the order is 45 days before the date of the Encounter or 45 days after the date of theEncounter. The data comes from all [facility]. Test Date/Time Test Type Test Details Facility Name Feb 13, 2023 12:00 AM Laboratory - Blood Bank Order TYPE & SCREEN - LAB BLOOD SP [facility] Lab Results: [...] Range Comment Feb 13, 2023 03:07 PM [facility] PROTHROMBIN TIME/INR Specimen Type: PLASMA No comment entered. Ordering Provider: KAMAR VARELA Report Released Date/Time: Feb 13, 2023 01:44 PM Reporting Lab: [facility] [id number] Performing Lab: [facility] [address] .INR 1.3 H 0.8-1.1 .PT 15.5 H 9.4-12.5 Feb 13, 2023 03:07 PM [facility] ALBUMIN Specimen Type: PLASMA No comment entered. Ordering Provider: KAMAR VARELA Report Released Date/Time: Feb 13, 2023 01:44 PM Reporting Lab: [facility] [id number] Performing Lab: [facility] [address] ALBUMIN 3.8 3.5-5.2 Feb 13, 2023 03:07 PM [facility] HEMOGLOBIN A1C Specimen Type: BLOOD [...] Feb 13, 2023 01:44 PM Reporting Lab: [facility] [id number] Performing Lab: [facility] [address] HEMOGLOBIN A1C 7.4 H 4.0-6.0 Feb 13, 2023 03:07 PM [facility] BASIC METABOLIC PANEL+MG Specimen Type: PLASMA No comment entered. Ordering Provider: KAMAR VARELA Report Released Date/Time: Feb 13, 2023 01:44 PM Reporting Lab: [facility] [id number] Performing Lab: [facility] [address] CREATININE 1.3 H 0.7-1.2 UREA NITROGEN 16 8-26 GLUCOSE 129 H 70-100 SODIUM 144 136-145 POTASSIUM 3.9 3.5-5.1 CHLORIDE 105 98-107 CO2 32 H 22-29 CALCIUM 9.1 8.4-10.2 MAGNESIUM 1.8 1.6-2.6 ANION GAP 7 5-15 .CREAT EGFR(CKD-EPI) 57 L See_Comment Feb 13, 2023 03:07 PM [facility] CBC & DIFF Specimen Type: BLOOD Comment: Automated Differential Performed Ordering Provider: KAMAR VARELA Report Released Date/Time: Feb 13, 2023 01:44 PM Reporting Lab: [facility] [address] Performing Lab: [facility] [address] WBC 7.60 4.0-11.0 RBC 4.50 L 4.6-6.2 [...] woods Aug 15, 2022 09:00 AM VA-TOBACCO QUIT 15 YRS OR MORE [facility] Tobacco Use History This section includes a history of the smoking, or tobacco-related health factors, that were collected on or before the date of the Encounter. The data comes from the [place] facility where the Encounter took place. Date/Time Smoking Status/Tobacco Use Comment Guan[place]ito ortez Aug 15, 2022 09:00 AM VA-TOBACCO QUIT 15 YRS OR MORE [facility] Aug 21, 2021 01:00 PM VA-TOBACCO FORMER USER [facility] Aug 21, 2021 01:00 PM VA-TOBACCO QUIT 15 YRS OR MORE [facility] Jul 09, 2018 08:58 AM VA-TOBACCO FORMER USER [facility] Jul 09, 2018 08:58 AM VA-TOBACCO QUIT 15 YRS OR MORE [facility] Jul 18, 2017 09:58 AM FORMER TOBACCO USER 7Y OR MARVAE R [facility] Aug 14, 2016 10:59 AM FORMER TOBACCO USER 7Y OR MARVAE R [facility] Jun 29, 2015 02:03 PM FORMER TOBACCO USER 7Y OR KIAH R [facility] Jan 06, 2014 03:04 PM FORMER TOBACCO USER 7Y OR MARVAE R [facility] Jan 04, 2012 08:36 AM FORMER TOBACCO USER 7Y OR KIAH Khan [facility] Encounter Notes: All associated encounter notes This section contains the clinical notes associated to the Encounter. Date/Time Encounter Note(s) Provider Source Mar 05, 2023 12:00 AM NONVA CONSULT: LOCAL TITLE: COMMUNITY CARE CONSULT RESULT NOTE STANDARD TITLE: NONVA CONSULT DATE OF NOTE: MAR 05, 2023 ENTRY DATE: MAR 07, 2023@11:59:45 AUTHOR: YADIEL FARRELL EXP COSIGNER: URGENCY: STATUS: COMPLETED [employer] - Scanned Document [facility] SKILLED HOME [facility]ARE [facility] CHOICE APPOINTMENT INFORMATION Documentation received from non-VA provider and scanned into [employer]. /pablo/ YADIEL PROCESS Signed: 03/07/2023 11:59 YADIEL FARRELL [facility]
--- OUTSIDE RECORDS SUMMARY | 2023-08-13 12:36 | XMS_ITS | Encounter Summary ---
Author Name Department of Vetera Affairs Organization Department of Vetera ns Affairs Address [address] [place] [address] Support Name Relationship Address Phone SIRIA THOMPSON Next of Kin [address] [place], [place] [phone] SIRIA THOMPSON Emergency Contact [address] [place] [phone] NATHALIE DING Emergency Contact Unknown Insurance Providers: [...] PART A Sep 26, 2012 PART A [id number] [facility] [phone] JUAN THOMPSON JR PATIENT MEDICARE (WNR) MEDICARE (M) PART B Sep 26, 2012 PART B [id number] [phone] JUAN THOMPSON JR PATIENT Selected Encounter This section includes the information on record at [place] for the Encounter. Date/Time Encounter Type Encounter Description Reason Provider Source Feb 25, 2023 09:15 AM ELECTROCARDIOGRAM COMPLETE EKG ICD-10-CM Z13.6 Encounter for screening for cardiovascular disorders [facility] Encounter Template Text not used by [place] Assessments - Encounter Diagnoses This section includes the primary and secondary diagnoses documented for the Encounter. Date/Time Primary/Secondary Diagnosis Diagnosis Name Provider Source Feb 25, 2023 03:22 PM PRIMARY Encounter for screening for cardiovascular disorders [facility]HA SAMANO [facility] Plan of Treatment: Future Appointments (+ 6 months) and Future Tests (+/- 45 days) The Plan of Treatment section includes future care activities for the patient from [facility] [place] [facility] This section includes future appointments and future orders which are active, pending or scheduled. Future Appointments This section includes appointments that were scheduled to occur 6 months from the date of the Encounter, up to a maximum of 20 appointments. The data comes from all [facility]. Appointment Date/Time Appointment Type Appointme nt Facility Name Mar 07, 2023 08:30 AM AM[place]UL[place]ORY [place]IC[place] [facility] Mar 31, 2023 07:00 AM [facility] Apr 19, 2023 10:30 AM AMBUL[place]ORY - [place] [facility] May 14, 2023 10:00 AM AM[place]ORY [place] [facility] May 20, 2023 08:00 AM AMBULATORY - PS[place]IATRY [place] [facility] Jun 17, 2023 08:30 AM AMBULATORY - REHAB MEDICIN E [facility] Jun 21, 2023 05:10 PM AMBULATORY - REHAB MEDICIN E [facility] Jul 11, 2023 10:00 AM AMBULATORY - MEDICINE [facility] Jul 11, 2023 11:15 AM AMBULATORY - MEDICINE [facility] Aug 21, 2023 10:30 AM AMBULATORY - PSYCHIATRY [place] [facility] Active, Pending, and Scheduled Orders This section includes a listing of several types of active, pending, and scheduled orders, including clinic medications orders, diagnostic test orders, procedure orders and consult orders; where the start date of the order is 45 days before the date of the Encounter or 45 days after the date of theEncounter. The data comes from all [facility]. Test Date/Time Test Type Test Details Facility Name Feb 13, 2023 12:00 AM Laboratory - Blood Bank Order TYPE & SCREEN - LAB BLOOD SP [facility] Lab Results: +/- 30 days of the encounter This section includes the Chemistry and Hematology Lab Results on record with [place] for the patient. Radiology Reports and Pathology Reports are provided separately, in subsequent sections. Lab Results This section contains the Chemistry/Hematology Results that were resulted 30 days before or 30 daysafter the date of the Encounter. Date/Time Source Result Type Result - Unit Interpretation Reference Range Comment Feb 13, 2023 03:[address] [facility] PROTHROMBIN TIME/INR Specimen Type: PLASMA No comment entered. Ordering Provider: KAMAR VARELA Report Released Date/Time: Feb 13, 2023 01:44 PM Reporting Lab: [facility] [id number] Performing Lab: [facility] [id number] .INR 1.3 H 0.8-1.1 .PT 15.5 H 9.4-12.5 Feb 13, 2023 03:[address] [facility] ALBUMIN Specimen Type: PLASMA No comment entered. Ordering Provider: KAMAR VARELA Report Released Date/Time: Feb 13, 2023 01:44 PM Reporting Lab: [facility] [id number] Performing Lab: [facility] [address] ALBUMIN 3.8 3.5-5.2 Feb 13, 2023 03:[address] [facility] HEMOGLOBIN A1C Specimen Type: BLOOD Comment: [...] Feb 13, 2023 01:44 PM Reporting Lab: [facility] [address] Performing Lab: [facility] [address] HEMOGLOBIN A1C 7.4 H 4.0-6.0 Feb 13, 2023 03:[address] [facility] BASIC METABOLIC PANEL+MG Specimen Type: PLASMA No comment entered. Ordering Provider: KAMAR VARELA Report Released Date/Time: Feb 13, 2023 01:44 PM Reporting Lab: [facility] [address] Performing Lab: [facility] [address] CREATININE 1.3 H 0.7-1.2 UREA NITROGEN 16 8-26 GLUCOSE 129 H 70-100 SODIUM 144 136-145 POTASSIUM 3.9 3.5-5.1 CHLORIDE 105 98-107 CO2 32 H 22-29 CALCIUM 9.1 8.4-10.2 MAGNESIUM 1.8 1.6-2.6 ANION GAP 7 5-15 .CREAT EGFR(CKD-EPI) 57 L See_Comment Feb 13, 2023 03:[address] [facility] CBC & DIFF Specimen Type: BLOOD Comment: Automated Differential Performed Ordering Provider: KAMAR VARELA Report Released Date/Time: Feb 13, 2023 01:44 PM Reporting Lab: [facility] [address] Performing Lab: [facility] [address] WBC 7.60 4.0-11.0 RBC 4.50 L 4.6-6.2 [...] 68 in 207.2 lb 32 [place] [facility] Social History: Smoking Status (Most current) and Tobacco Use (All prior to encounter date) This section includes the most current, and the historical, smoking and tobacco- related health factors from the [place] facility where the Encounter took place. Current Smoking Status This section includes the most current smoking, or tobacco-related health factor, from the [place] facility where the Encounter took place. Date/Time Current Smoking Status Comment Aj woods Aug 15, 2022 09:00 AM VA-TOBACCO FORMER USER [facility] Tobacco Use History This section includes a history of the smoking, or tobacco-related health factors, that were collected on or before the date of the Encounter. The data comes from the [place] facility where the Encounter took place. Date/Time Smoking Status/Tobacco Use Comment F acility Aug 15, 2022 09:00 AM VA-TOBACCO QUIT [address] [facility] Aug 21, 2021 01:00 PM VA-TOBACCO FORMER USER [facility] Aug 21, 2021 01:00 PM VA-TOBACCO QUIT [address] [facility] Jul 09, 2018 08:58 AM VA-TOBACCO FORMER USER [facility] Jul 09, 2018 08:58 AM VA-TOBACCO QUIT [address] [facility] Jul 18, 2017 09:58 AM FORMER TOBACCO USER 7Y OR GREATE R [facility] Aug 14, 2016 10:59 AM FORMER TOBACCO USER 7Y OR GREATE R [facility] Jun 29, 2015 02:03 PM FORMER TOBACCO USER 7Y OR GREATE R [facility] Jan 06, 2014 03:04 PM FORMER TOBACCO USER 7Y OR GREATE R [facility] Jan 04, 2012 08:36 AM FORMER TOBACCO USER 7Y OR GRE[facility] R [facility]
--- OUTSIDE RECORDS SUMMARY | 2023-08-13 12:36 | XMS_ITS | Encounter Summary ---
Author Name Department of Vetera Affairs Organization Department of Vetera ns Affairs Address [address] [place] [address] Support Name Relationship Address Phone SIRIA THOMPSON Next of Kin [address] [place], [place] [phone] SIRIA THOMPSON Emergency Contact [address] [place] [phone] NATHALIE DING Emergency Contact Unknown [phone] Insurance Providers: All historical and current Section [...] PART B Sep 26, 2012 PART B [id number] [facility] [phone] JUAN THOMPSON JR PATIENT MEDICARE (WNR) MEDICARE (M) PART A Sep 26, 2012 PART A [id number] [phone] JUAN THOMPSON JR PATIENT Selected Encounter This section includes the information on record at [place] for the Encounter. Date/Time Encounter Type Encounter Description Reason Pro vider Source Feb 28, 2023 10:00 AM Outpatient Encounter TELEPHONE/MEDICINE E Encounter Template Text not used by [place] Plan of Treatment: Future Appointments (+ 6 months) and Future Tests (+/- 45 days) The Plan of Treatment section includes future care activities for the patient from all [place] treatmentfacilities. This section includes future appointments and future orders which are active, pending or scheduled. Future Appointments This section includes appointments that were scheduled to occur 6 months from the date of the Encounter, up to a maximum of 20 appointments. The data comes from all [facility]. Appointment Date/Time Appointment Type Appointme nt Facility Name Mar 07, 2023 08:30 AM [facility] Mar 31, 2023 07:00 AM AMBULATORY - NONE [facility] Apr 19, 2023 10:30 AM AMBULATORY - [facility]GERY [place] [facility] May 14, 2023 10:00 AM [facility] May 20, 2023 08:00 AM [facility] Jun 17, 2023 08:30 AM AMBULATORY - REHAB MEDICIN E [facility] Jun 21, 2023 05:10 PM AMBULATORY - REHAB MEDICIN E [facility] Jul 11, 2023 10:00 AM AMBULATORY - MEDICINE [facility] Jul 11, 2023 11:15 AM AMBULATORY - MEDICINE [facility] Aug 21, 2023 10:30 AM AMBULATORY - PS[facility]CHIATRY [facility] Active, Pending, and Scheduled Orders This section includes a listing of several types of active, pending, and scheduled orders, including clinic medications orders, diagnostic test orders, procedure orders and consult orders; where the start date of the order is 45 days before the date of the Encounter or 45 days after the date of theEncounter. The data comes from all [facility]. Test Date/Time Test Type Test Details Facility Name Feb 13, 2023 12:00 AM Laboratory - Blood Bank Order TYPE & SCREEN - LAB BLOOD SP [facility] Lab Results: +/- 30 days [...] Range Comment Feb 13, 2023 03:07 PM [facility] HEMOGLOBIN A1C Specimen Type: BLOOD [...] Feb 13, 2023 01:44 PM Reporting Lab: [facility] [id number] Performing Lab: [facility] [address] HEMOGLOBIN A1C 7.4 H 4.0-6.0 Feb 13, 2023 03:07 PM [facility] ALBUMIN Specimen Type: PLASMA No comment entered. Ordering Provider: KAMAR VARELA Report Released Date/Time: Feb 13, 2023 01:44 PM Reporting Lab: [facility] [id number] Performing Lab: [facility] [address] ALBUMIN 3.8 3.5-5.2 Feb 13, 2023 03:07 PM [facility] PROTHROMBIN TIME/INR Specimen Type: PLASMA No comment entered. Ordering Provider: KAMAR VARELA Report Released Date/Time: Feb 13, 2023 01:44 PM Reporting Lab: [facility] [address] Performing Lab: [facility] [address] .INR 1.3 H 0.8-1.1 .PT 15.5 H 9.4-12.5 Feb 13, 2023 03:07 PM [facility] BASIC METABOLIC PANEL+MG Specimen Type: PLASMA No comment entered. Ordering Provider: KAMAR VARELA Report Released Date/Time: Feb 13, 2023 01:44 PM Reporting Lab: [facility] [address] Performing Lab: [facility] [address] CREATININE 1.3 H 0.7-1.2 UREA NITROGEN 16 8-26 GLUCOSE 129 H 70-100 SODIUM 144 136-145 POTASSIUM 3.9 3.5-5.1 CHLORIDE 105 98-107 CO2 32 H 22-29 CALCIUM 9.1 8.4-10.2 MAGNESIUM 1.8 1.6-2.6 ANION GAP 7 5-15 .CREAT EGFR(CKD-EPI) 57 L See_Comment Feb 13, 2023 03:07 PM [facility] CBC & DIFF Specimen Type: BLOOD Comment: Automated Differential Performed Ordering Provider: KAMAR VARELA Report Released Date/Time: Feb 13, 2023 01:44 PM Reporting Lab: [facility] [address] Performing Lab: [facility] [address] WBC 7.60 4.0-11.0 RBC 4.50 L 4.6-6.2 [...] and tobacco- related health factors from the [place] facility where the Encounter took place. Current Smoking Status This section includes the most current smoking, or tobacco-related health factor, from the [place] facility where the Encounter took place. Date/Time Current Smoking Status Comment Aj woods Aug 15, 2022 09:00 AM VA-TOBACCO FORMER USER [facility] Tobacco Use History This section includes a history of the smoking, or tobacco-related health factors, that were collected on or before the date of the Encounter. The data comes from the [place] facility where the Encounter took place. Date/Time Smoking Status/Tobacco Use Comment F accelia Aug 15, 2022 09:00 AM VA-TOBACCO QUIT 15 YRS OR MORE [facility] Aug 21, 2021 01:00 PM VA-TOBACCO FORMER USER [facility] Aug 21, 2021 01:00 PM VA-TOBACCO QUIT 15 YRS OR MORE [facility] Jul 09, 2018 08:58 AM VA-TOBACCO FORMER USER [facility] Jul 09, 2018 08:58 AM VA-TOBACCO QUIT 15 YRS OR MORE [facility] Jul 18, 2017 09:58 AM FORMER TOBACCO USER 7Y OR GREATE R [facility] Aug 14, 2016 10:59 AM FORMER TOBACCO USER 7Y OR GREATE R [facility] Jun 29, 2015 02:03 PM FORMER TOBACCO USER 7Y OR GREATE R [facility] Jan 06, 2014 03:04 PM FORMER TOBACCO USER 7Y OR GREATE R [facility] Jan 04, 2012 08:36 AM FORMER TOBACCO USER 7Y OR GREATE R [facility] Encounter Notes: All associated encounter notes This section contains the clinical notes associated to the Encounter. Date/Time Encounter Note(s) Provider Source Feb 28, 2023 10:00 AM REPORT OF CONTACT: LOCAL TITLE: APPOINTMENT SCHEDULING NOTE STANDARD TITLE: REPORT OF CONTACT DATE OF NOTE: FEB 28, 2023@10:00 ENTRY DATE: FEB 28, 2023@10:01:02 AUTHOR: SAM CRAMER COSIGNER: URGENCY: STATUS: COMPLETED Attempted to schedule No show Contact: Called [place] at: [phone] If calls back, schedule appointment for: Activity:11/07/2022 14:52 New Order entered by APRIL KINCAID ([employer]) Order Text: Return to [facility] on or around ( Jan 16, 2023 ) for a total of 1 appointment(s) Contact attempt made to 1st attempt Telephone 2nd attempt Letter Unable to leave voice mail Other: JODEE MOSES /pablo/ SAM CRAMER LEAD MSA Signed: 02/28/2023 10:01 SAM CRAMER CASSANDRA [facility]
--- OUTSIDE RECORDS SUMMARY | 2023-08-13 12:36 | XMS_ITS | Encounter Summary ---
Author Name Department of Vetera Affairs Organization Department of Vetera ns Affairs Address [address] [place] [address] Support Name Relationship Address Phone SIRIA THOMPSON Next of Kin [address] [place], [place] [phone] SIRIA THOMPSON Emergency Contact [address] [place] [id number] NATHALIE DING Emergency Contact Unknown Insurance Providers: [...] PART A Sep 26, 2012 PART A [id number] [facility] [phone] JUAN THOMPSON JR PATIENT MEDICARE (WNR) MEDICARE (M) PART B Sep 26, 2012 PART B [id number] [phone] JUAN THOMPSON JR PATIENT Selected Encounter This section includes the information on record at [place] for the Encounter. Date/Time Encounter Type Encounter Description Reason Pro vider Source Mar 07, 2023 08:30 AM Outpatient Encounter TELEPHONE/MEDICINE E Encounter Template Text not used by [place] Plan of Treatment: Future Appointments (+ 6 months) and Future Tests (+/- 45 days) The Plan of Treatment section includes future care activities for the patient from all [place] treatmentfacilities. This section includes future appointments and future orders which are active, pending or scheduled. Future Appointments This section includes appointments that were scheduled to occur 6 months from the date of the Encounter, up to a maximum of 20 appointments. The data comes from all [facility]. Appointment Date/Time Appointment Type Appointme nt Facility Name Mar 31, 2023 07:00 AM AMBULATORY - NONE [place] [facility] Apr 19, 2023 10:30 AM AMBULATORY - SURGERY [facility] ALEXANDRE [facility] May 14, 2023 10:00 AM [facility] May 20, 2023 08:00 AM AMBULATORY - PSYCHIATRY [place] [facility] Jun 17, 2023 08:30 AM AMBULATORY - REHAB MEDICIN E [facility] Jun 21, 2023 05:10 PM AMBULATORY - REHAB MEDICIN E [facility] Jul 11, 2023 10:00 AM [facility] Jul 11, 2023 11:15 AM AMBULATORY - MEDICINE [facility] Aug 21, 2023 10:30 AM AMBULATORY - PSYCHIATRY [place] [facility] Active, Pending, and Scheduled Orders This [...] comes from all [facility]. Test Date/Time Test Type Test Details Facility [...] Feb 13, 2023 01:44 PM Reporting Lab: [facility] [id number] Performing Lab: [facility] [address] .INR 1.3 H 0.8-1.1 .PT 15.5 H 9.4-12.5 Feb 13, 2023 03:07 PM [facility] ALBUMIN Specimen Type: PLASMA No comment entered. Ordering Provider: KAMAR VARELA Report Released Date/Time: Feb 13, 2023 01:44 PM Reporting Lab: [facility] [id number] Performing Lab: [facility] [id number] ALBUMIN 3.8 3.5-5.2 Feb 13, 2023 03:07 [...] Feb 13, 2023 01:44 PM Reporting Lab: [facility] [id number] Performing Lab: [facility] [address] HEMOGLOBIN A1C 7.4 H 4.0-6.0 Feb 13, 2023 03:07 PM [facility] BASIC METABOLIC PANEL+MG Specimen Type: PLASMA No comment entered. Ordering Provider: KAMAR VARELA Report Released Date/Time: Feb 13, 2023 01:44 PM Reporting Lab: [facility] [id number] Performing Lab: [facility] [address] CREATININE 1.3 H 0.7-1.2 UREA NITROGEN 16 [...] Feb 13, 2023 01:44 PM Reporting Lab: [facility] [id number] Performing Lab: [facility] [address] WBC 7.60 4.0-11.0 RBC 4.50 L 4.6-6.2 [...] Facil ity Aug 15, 2022 09:00 AM [place]-TOBACCO QUIT 15 YRS OR MORE [facility] Tobacco Use History This section [...] Encounter. Date/Time Encounter Note(s) Provider Source Mar 07, 2023 09:08 AM ADDENDUM: LOCAL TITLE: Addendum STANDARD TITLE: ADDENDUM DATE OF NOTE: MAR 07, 2023@09:08:24 ENTRY DATE: MAR 07, 2023@09:08:24 AUTHOR: MORTEZA BLOOM EXP COSIGNER: URGENCY: STATUS: COMPLETED phoned. Please try him again. He isn't sure how to clear his VM but is watching for your call. /es/ MORTEZA BLOOM VISN23 CCC AMSA Signed: 03/07/2023 09:09 Receipt Acknowledged By: 03/07/2023 11:24 /aneesh WHITLOCK RN Metabolic Bag Shop Worker ====== --- Original Document --- 03/07/23 PATIENT CONTACT NOTE: Patient contact Name of : JUAN THOMPSON JR Name/Relationship of Contact if other than : Date & Time of Contact: Feb@08:32 Type of Contact: Telephone Reason for Contact: Attempted to contact the for scheduled phone appt, no answer. Unable to leave a message, voicemail box is full. /aneesh WHITLOCK RN Metabolic Bag Shop Worker Signed: 03/07/2023 08:33 03/07/2023 ADDENDUM STATUS: COMPLETED Attempted to return 's call, no answer. Will make another attempt at a later time. /aneesh WHITLOCK RN Metabolic Bag Shop Worker Signed: 03/07/2023 11:28 MORTEZA BLOOM [facility] Mar 07, 2023 08:31 AM REPORT OF CONTACT: LOCAL TITLE: PATIENT CONTACT NOTE STANDARD TITLE: REPORT OF CONTACT DATE OF NOTE: MAR 07, 2023@08:31 ENTRY DATE: MAR 07, 2023@08:31:55 AUTHOR: MIGUEL ANGEL WHITLOCK EXP COSIGNER: URGENCY: STATUS: COMPLETED PATIENT CONTACT NOTE Has ADDENDA Patient contact Name of : DONNAJUAN SIRIABHAVYA LANDAVERDE Name/Relationship of Contact if other than : Date & Time of Contact: Feb@08:32 Type of Contact: Telephone Reason for Contact: Attempted to contact the for scheduled phone appt, no answer. Unable to leave a message, voicemail box is full. /aneesh WHITLOCK RN Metabolic Bag Shop Worker Signed: 03/07/2023 08:33 03/07/2023 ADDENDUM STATUS: COMPLETED phoned. Please try him again. He isn't sure how to clear his VM but is watching for your call. /pablo/ MORTEZA BLOOM VISN23 [facility] AMSA Signed: 03/07/2023 09:09 Receipt Acknowledged By: 03/07/2023 11:24 /aneesh WHITLOCK RN Metabolic Bag Shop Worker 03/07/2023 ADDENDUM STATUS: COMPLETED Attempted to return 's call, no answer. Will make another attempt at a later time. /aneesh WHITLOCK RN Metabolic Bag Shop Worker Signed: 03/07/2023 11:28 03/07/2023 ADDENDUM STATUS: COMPLETED Made another attempt to contact , no answer. Unable to leave a message, mailbox is full. /aneesh WHITLOCK RN Metabolic Bag Shop Worker Signed: 03/07/2023 15:13 MIGUEL ANGEL WHITLOCK [facility]
--- OUTSIDE RECORDS SUMMARY | 2023-08-13 12:37 | XMS_ITS | Encounter Summary ---
Author Name Department of Vetera Affairs Organization Department of Vetera ns Affairs Address [address] [place] [address] Support Name Relationship Address Phone DONNA SIRIA Next of Kin [address] [place], [place] [phone] SIRIA THOMPSON Emergency Contact [address] [place] [phone] NATHALIE DING Emergency Contact Unknown Insurance Providers: [...] PART A Sep 26, 2012 PART A [id number] [facility] [phone] JUAN THOMPSON JR PATIENT MEDICARE (WNR) MEDICARE (M) PART B Sep 26, 2012 PART B [id number] [phone] JUAN THOMPSON JR PATIENT Selected Encounter This section includes the information on record at [place] for the Encounter. Date/Time Encounter Type Encounter Description Reason Pro vider Source Mar 13, 2023 09:45 AM Outpatient Encounter TELEPHONE TRIAGE IHE Encounter [...] appointments. The data comes from all [facility]. Appointment Date/Time Appointment Type Appointme nt Facility Name Mar 31, 2023 07:00 AM AMBULATORY - NONE [place] [facility] Apr 19, 2023 10:30 AM AMBULATORY - SURGERY [facility]ISA ALEXANDRE [facility] May 14, 2023 10:00 AM [facility] May 20, 2023 08:00 AM AMBULATORY - PSYCHIATRY [place] [facility] Jun 17, 2023 08:30 AM AMBULATORY - REHAB MEDICIN E [facility] Jun 21, 2023 05:10 PM AMBULATORY - REHAB MEDICIN E [facility] Jul 11, 2023 10:00 AM AMBULATORY - MEDICINE [facility] Jul 11, 2023 11:15 AM AMBULATORY - MEDICINE [facility] Aug 21, 2023 10:30 AM AMBULATORY - PSYCHIATRY [place] [facility] Active, Pending, and Scheduled Orders This section includes a listing of several types of active, pending, and scheduled orders, including clinic medications orders, diagnostic test orders, procedure orders and consult orders; where the start date of the order is 45 days before the date of the Encounter or 45 days after the date of theEncounter. The data comes from all [facility]. Test Date/Time Test Type Test Details Facility Name Feb 13, 2023 12:00 AM Laboratory - Blood Bank Order TYPE & SCREEN - LAB BLOOD SP [facility] Lab Results: +/- 30 days of [...] Range Comment Feb 13, 2023 03:07 PM [facility] PROTHROMBIN TIME/INR Specimen Type: PLASMA No comment entered. Ordering Provider: KAMAR VARELA Report Released Date/Time: Feb 13, 2023 01:44 PM Reporting Lab: [facility] [id number] Performing Lab: [facility] [address] .INR 1.3 H 0.8-1.1 .PT 15.5 H 9.4-12.5 Feb 13, 2023 03:07 PM [facility] ALBUMIN Specimen Type: PLASMA No comment entered. Ordering Provider: KAMAR VARELA Report Released Date/Time: Feb 13, 2023 01:44 PM Reporting Lab: [facility] [id number] Performing Lab: [facility] [address] ALBUMIN 3.8 3.5-5.2 Feb 13, 2023 03:07 PM [facility] HEMOGLOBIN A1C Specimen Type: BLOOD Comment: [...] 13, 2023 01:44 PM Reporting Lab: [facility] [address] Performing Lab: [facility] [address] HEMOGLOBIN A1C 7.4 H 4.0-6.0 Feb 13, 2023 03:07 PM [facility] BASIC METABOLIC PANEL+MG Specimen Type: PLASMA No comment entered. Ordering Provider: KAMAR VARELA Report Released Date/Time: Feb 13, 2023 01:44 PM Reporting Lab: [facility] [address] Performing Lab: [facility] [address] CREATININE 1.3 H 0.7-1.2 UREA NITROGEN 16 8-26 GLUCOSE 129 H 70-100 SODIUM 144 136-145 POTASSIUM 3.9 3.5-5.1 CHLORIDE 105 98-107 CO2 32 H 22-29 CALCIUM 9.1 8.4-10.2 MAGNESIUM 1.8 1.6-2.6 ANION GAP 7 5-15 .CREAT EGFR(CKD-EPI) 57 L See_Comment Feb 13, 2023 03:07 PM [facility] CBC & DIFF Specimen Type: BLOOD Comment: Automated Differential Performed Ordering Provider: KAMAR VARELA Report Released Date/Time: Feb 13, 2023 01:44 PM Reporting Lab: [facility] [address] Performing Lab: [facility] [address] [facility] [address] WBC 7.60 4.0-11.0 RBC 4.50 L 4.6-6.2 [...] 15, 2022 09:00 AM VA-TOBACCO FORMER USER [facility] Tobacco Use History This section includes a history of the smoking, or tobacco-related health factors, that were collected on or before the date of the Encounter. The data comes from the [place] facility where the Encounter took place. Date/Time Smoking Status/Tobacco Use Comment F acility Aug 15, 2022 09:00 AM VA-TOBACCO QUIT 15 YRS OR MORE [facility] Aug 21, 2021 01:00 PM VA-TOBACCO FORMER USER [facility] Aug 21, 2021 01:00 PM VA-TOBACCO QUIT 15 YRS OR MORE [facility] Jul 09, 2018 08:58 AM VA-TOBACCO FORMER USER [facility] Jul 09, 2018 08:58 AM VA-TOBACCO QUIT 15 YRS OR MORE [facility] Jul 18, 2017 09:58 AM FORMER TOBACCO USER 7Y OR GREATE R [facility] Aug 14, 2016 10:59 AM FORMER TOBACCO USER 7Y OR KIAH Khan [facility] Jun 29, 2015 02:03 PM FORMER TOBACCO USER 7Y OR KIAH Khan [facility] Jan 06, 2014 03:04 PM FORMER TOBACCO USER 7Y OR KIAH Khan [facility] Jan 04, 2012 08:36 AM FORMER TOBACCO USER 7Y OR KIAH Khan [facility] Encounter Notes: All associated encounter notes This section contains the clinical notes associated to the Encounter. Date/Time Encounter Note(s) Provider Source Mar 13, 2023 09:45 AM REPORT OF CONTACT: LOCAL TITLE: PATIENT CONTACT NOTE - PHARMACY STANDARD TITLE: REPORT OF CONTACT DATE OF NOTE: MAR 13, 2023@09:45 ENTRY DATE: MAR 13, 2023@09:45:20 AUTHOR: TIMA SIDDIQI EXP COSIGNER: URGENCY: STATUS: COMPLETED PATIENT CONTACT NOTE - PHARMACY Has ADDENDA Patient Contact Date & Time of Contact: Feb@09:45 Type of Contact: Comments: Patient called pharmacy requesting a refill for the following medication(s) that have been discontinued. Patient states that they still use this medication(s) and would like it refilled. Please advise patient if unable to fill. Thank you Medication(s): CALCIUM CARBONATE TAB,CHEWABLE 500MG /pablo/ TIMA SIDDIQI, PAPER HANDLER V23 [facility] ENTRY PROCESS[facility] Signed: 03/13/2023 09:45 Receipt Acknowledged By: 03/22/2023 09:18 /es/ LYUBOV YEUNG MD RESIDENT PHYSICIAN 03/13/2023 12:54 /es/ Brittani Hernandez RN Registered Nurse 03/13/2023 11:35 /pablo/ MARIUSZ PHILLIPS MD PHYSICIAN 03/13/2023 ADDENDUM STATUS: COMPLETED Patient has active order for calcium citrate for calcium supplement. Please advise if patient is specifically requesting calcium carbonate or if there has been some confusion. Refill pending for calcium citrate. /pablo/ MARIUSZ PHILLIPS MD PHYSICIAN Signed: 03/13/2023 11:37 03/13/2023 ADDENDUM STATUS: COMPLETED Called pt for clarification of above message, no answer. Left detailed message on pt's self-identified voicemail stating per August provider notes he was to stop calcium carbonate chewables and start calcium citrate tablets- asked pt to call back and clarify if he is still taking calcium citrate tablets and if he is taking calcium carbonate chewables daily or PRN for other symptoms, like acid reflux. Left this publications writer's call back number for clarification and f/u. /es/ Brittani Hernandez RN Registered Nurse Signed: 03/13/2023 12:56 TIMA SIDDIQI [facility]
--- OUTSIDE RECORDS SUMMARY | 2023-08-13 12:37 | XMS_ITS | Encounter Summary ---
Author Name Department of Vetera Affairs Organization Department of Vetera ns Affairs Address [address] [place] [address] Support Name Relationship Address Phone SIRIA THOMPSON Next of Kin [address] [place], [place] [phone] SIRIA THOMPSON Emergency Contact [address] [place] [phone] NATHALIE DING Emergency Contact Unknown [phone] Insurance Providers: All historical and current Section [...] PART A Sep 26, 2012 PART A [id number] [facility] [phone] JUAN THOMPSON JR PATIENT MEDICARE (WNR) MEDICARE (M) PART B Sep 26, 2012 PART B [id number] JUAN THOMPSON JR PATIENT Selected Encounter This section includes the information on record at [place] for the Encounter. Date/Time Encounter Type Encounter Description Reason Provider Source Mar 07, 2023 08:30 AM HC PRO PHONE CALL 11-20 MIN TELEPHONE/MEDICIN E ICD-10-CM E11.8 Type 2 diabetes mellitus with unspecified complications MIGUEL ANGEL WHITLOCK Encounter Template Text not used by [place] Assessments - Encounter Diagnoses This section includes the primary and secondary diagnoses documented for the Encounter. Date/Time Primary/Secondary Diagnosis Diagnosis Name Provider Source Mar 07, 2023 08:30 AM PRIMARY Type 2 diabetes mellitus with unspecified complications MIGUEL ANGEL WHITLOCK [facility] Plan of Treatment: Future Appointments (+ 6 months) and Future Tests (+/- 45 days) The Plan of Treatment section includes future care activities for the patient from [facility] [place] [facility] This section includes future appointments and future orders which are active, pending or scheduled. Future Appointments This section includes appointments that were scheduled to occur 6 months from the date of the Encounter, up to a maximum of 20 appointments. The data comes from all [facility]. Appointment Date/Time Appointment Type Appointme nt Facility Name Mar 31, 2023 07:00 AM AMBULATORY - NONE [facility] Apr 19, 2023 10:30 AM AMBULATORY - SURGERY [facility] May 14, 2023 10:00 AM AMBULATORY - PSYCHIATRY [facility] May 20, 2023 08:00 AM AMBULATORY - PSYCHIATRY [facility] Jun 17, 2023 08:30 AM [facility] Jun 21, 2023 05:10 PM AMBULATORY - REHAB MEDICIN E [facility] Jul 11, 2023 10:00 AM AMBULATORY - MEDICINE [facility] Jul 11, 2023 11:15 AM AMBULATORY - MEDICINE [facility] Aug 21, 2023 10:30 AM AMBULATORY - PSYCHIATRY [facility] Active, Pending, and Scheduled Orders This section includes a listing of several types of active, pending, and scheduled orders, including clinic medications orders, diagnostic test orders, procedure orders and consult orders; where the start date of the order is 45 days before the date of the Encounter or 45 days after the date of theEncounter. The data comes from all [facility]. Test Date/Time Test Type Test Details Facility Name Feb 13, 2023 12:00 AM Laboratory - Blood Bank Order TYPE & SCREEN - LAB BLOOD SP [facility] Lab Results: +/- 30 days of the encounter This section includes the Chemistry and Hematology Lab Results on record with [place] for the patient. Radiology Reports and Pathology Reports are provided separately, in subsequent sections. Lab Results This section contains the Chemistry/Hematology Results that were resulted 30 days before or 30 daysafter the date of the Encounter. Date/Time Source Result Type Result - Unit Interpretation Reference Range Comment Feb 13, 2023 03:07 PM [facility] PROTHROMBIN TIME/INR Specimen Type: PLASMA No comment entered. Ordering Provider: KAMAR VARELA Report Released Date/Time: Feb 13, 2023 01:44 PM Reporting Lab: [facility] [id number] Performing Lab: [facility] [address] .INR 1.3 H 0.8-1.1 .PT 15.5 H 9.4-12.5 Feb 13, 2023 03:07 PM [facility] ALBUMIN Specimen Type: PLASMA No comment entered. Ordering Provider: KAMAR VARELA Report Released Date/Time: Feb 13, 2023 01:44 PM Reporting Lab: [facility] [id number] Performing Lab: [facility] [address] ALBUMIN 3.8 3.5-5.2 Feb 13, 2023 03:07 PM [facility] HEMOGLOBIN A1C Specimen Type: BLOOD Comment: Values [...] Feb 13, 2023 01:44 PM Reporting Lab: [facility] [address] Performing Lab: [facility] [address] HEMOGLOBIN A1C 7.4 H 4.0-6.0 Feb 13, 2023 03:07 PM [facility] BASIC METABOLIC PANEL+MG Specimen Type: PLASMA No comment entered. Ordering Provider: KAMAR VARELA Report Released Date/Time: Feb 13, 2023 01:44 PM Reporting Lab: [facility] [address] Performing Lab: [facility] [address] CREATININE 1.3 H 0.7-1.2 UREA NITROGEN 16 8-26 GLUCOSE 129 H 70-100 SODIUM 144 136-145 POTASSIUM 3.9 3.5-5.1 CHLORIDE 105 98-107 CO2 32 H 22-29 CALCIUM 9.1 8.4-10.2 MAGNESIUM 1.8 1.6-2.6 ANION GAP 7 5-15 .CREAT EGFR(CKD-EPI) 57 L See_Comment Feb 13, 2023 03:07 PM [facility] CBC & DIFF Specimen Type: BLOOD Comment: Automated Differential Performed Ordering Provider: KAMAR VARELA Report Released Date/Time: Feb 13, 2023 01:44 PM Reporting Lab: [facility] [id number] Performing Lab: [facility] [address] WBC 7.60 4.0-11.0 RBC 4.50 L 4.6-6.2 [...] and tobacco- related health factors from the [place] facility where the Encounter took place. Current Smoking Status This section includes the most current smoking, or tobacco-related health factor, from the [place] facility where the Encounter took place. Date/Time Current Smoking Status Comment [place] Aug 15, 2022 09:00 AM VA-TOBACCO FORMER USER [facility] Tobacco Use History This section includes a history of the smoking, or tobacco-related health factors, that were collected on or before the date of the Encounter. The data comes from the [place] facility where the Encounter took place. Date/Time Smoking Status/Tobacco Use Comment F acility Aug 15, 2022 09:00 AM VA-TOBACCO QUIT 15 YRS OR MORE [facility] Aug 21, 2021 01:00 PM VA-TOBACCO FORMER USER [facility] Aug 21, 2021 01:00 PM VA-TOBACCO QUIT 15 YRS OR MORE [facility] Jul 09, 2018 08:58 AM VA-TOBACCO FORMER USER [facility] Jul 09, 2018 08:58 AM VA-TOBACCO QUIT 15 YRS OR MORE [facility] Jul 18, 2017 09:58 AM FORMER TOBACCO USER 7Y OR GREATE R [facility] Aug 14, 2016 10:59 AM FORMER TOBACCO USER 7Y OR GREATE R [facility] Jun 29, 2015 02:03 PM FORMER TOBACCO USER 7Y OR GREATE R [facility] Jan 06, 2014 03:04 PM FORMER TOBACCO USER 7Y OR GREATE R [facility] Jan 04, 2012 08:36 AM FORMER TOBACCO USER 7Y OR GREATE R [facility] Encounter Notes: All associated encounter notes This section contains the clinical notes associated to the Encounter. Date/Time Encounter Note(s) Provider Source Mar 07, 2023 03:24 PM REPORT OF CONTACT: LOCAL TITLE: PATIENT CONTACT NOTE STANDARD TITLE: REPORT OF CONTACT DATE OF NOTE: MAR 07, 2023@15:24 ENTRY DATE: MAR 07, 2023@15:24:59 AUTHOR: MIGUEL ANGEL WHITLOCK EXP COSIGNER: URGENCY: STATUS: COMPLETED DIABETES: Type of visit: RN phone appt to f/u on semaglutide Patient History: T2DM Allergies: SULFAMETHOXAZOLE (Feb 07, 2022) EMPAGLIFLOZIN (Jun 06, 2022) ACTIVE DIABETIC MEDICATIONS: Metformin 500mg qday Glargine 4 units, decreased from 8 units 3 days ago semaglutide 0.5mg qweek Reports he is tolerating semaglutide without side effects. His appetite has decreased. His weight is down 15 lbs. SELF BLOOD GLUCOSE MONITORING: Date AM Lunch Supper Bedtime Feb 121 Feb 242 Feb 159 Feb 122 Feb 167 Feb 125 Feb 129 Feb 209 Checks his blood sugars before bed. Last A1C was 7.9 on 02/13/23. TYPICAL DIET: He eats 2-3 meals a day, denies snacking since starting semaglutide. Drinks sugar free drinks. REPORTED ACTIVITY & EXERCISE: Reports being quite active, walks 9-10 blocks every few days. PLAN: Collaborated with participant(s) who is/are in agreement with the following plan: MEDICATION CHANGES: He is tolerating semaglutide. Continue to take medications as prescribed. Encouraged him to call if evening blood sugars are consistently in the 200's. FOLLOW UP: He did not another RN phone appt, provided my direct number for him to call with any questions or concerns. Encouraged him to call if evening blood sugar are consistently in the 200's, he is agreeable. Dr. Salvador clinic appt 06/27/23 /pablo/ MIGUEL ANGEL WHITLOCK RN Metabolic Exhibition Designer Signed: 03/07/2023 15:45 MIGUEL ANGEL WHITLOCK [facility]
--- OUTSIDE RECORDS SUMMARY | 2023-08-13 12:37 | XMS_ITS | Encounter Summary ---
Author Name Department of Vetera Affairs Organization [facility] of [facility] Affairs Address [address] [place] [address] Support Name Relationship Address Phone SIRIA THOMPSON Next of Kin [address] [place], [place] [phone] SIRIA THOMPSON Emergency Contact [address] [place] [id number] NATHALIE DING Emergency Contact Unknown Insurance Providers: [...] PART A Sep 26, 2012 PART A [id number] [facility] [phone] JUAN THOMPSON JR PATIENT MEDICARE (WNR) MEDICARE (M) PART B Sep 26, 2012 PART B [id number] [phone] JUAN THOMPSON JR PATIENT Selected Encounter This section includes the information on record at [place] for the Encounter. Date/Time Encounter Type Encounter Description Reason Pro vider Source Apr 05, 2023 11:15 AM Outpatient Encounter PRIMARY CARE/MEDICINE IHE Encounter Template [...] 20 appointments. The data comes from all [facility] facilities. Appointment Date/Time Appointment Type Appointme nt Facility Name Apr 19, 2023 10:30 AM AMBULATORY - SURGERY [facility] May 14, 2023 10:00 AM AMBULATORY [place] [facility] May 20, 2023 08:00 AM AM[place] [facility] Jun 17, 2023 08:30 AM AMBULATORY - REHAB MEDICIN E [facility] Jun 21, 2023 05:10 PM AMBULATORY - REHAB MEDICIN E [facility] Jul 11, 2023 10:00 AM AMBULATORY - MEDICINE [facility] Jul 11, 2023 11:15 AM AMBULATORY - MEDICINE [facility] Aug 21, 2023 10:30 AM AMBULATORY [place]ATRY [place] [facility] Social History: Smoking Status (Most current) and [...] 15, 2022 09:00 AM VA-TOBACCO FORMER USER [facility] Tobacco Use History This [...] FORMER TOBACCO USER 7Y OR [facility] Jan 04, 2012 08:36 AM FORMER TOBACCO USER 7Y OR [facility] Encounter Notes: All associated encounter notes This section contains the clinical notes associated to the Encounter. Date/Time Encounter Note(s) Provider Source Apr 05, 2023 11:15 AM HOME HEALTH REFERR AL NOTE: LOCAL TITLE: [facility] STANDARD TITLE: HOME HEALTH REFERRAL NOTE DATE OF NOTE: APR 05, 2023@11:15 ENTRY DATE: APR 05, 2023@11:15:15 AUTHOR: TYSHAWN AWAN EXP COSIGNER: URGENCY: STATUS: COMPLETED HOME HEALTH CARE CERTIFICATION AND PLAN OF CARE SIGNED BY: Dr. Ordaz for [facility] in [place], [place] Certification period From: Mar To: Apr /pablo/ TYSHAWN AWAN AMSA Signed: 04/05/2023 11:15 TYSHAWN AWAN [facility]
--- OUTSIDE RECORDS SUMMARY | 2023-08-13 12:38 | XMS_ITS | Encounter Summary ---
Author Name Department of Vetera ns Affairs Organization Department of Vetera ns Affairs Address [address] [place] [address] Support Name Relationship Address Phone SIRIA THOMPSON Next of Kin [address] [place], [place] [phone] SIRIA THOMPSON Emergency Contact [address] [place] [phone] NATHALIE DING Emergency Contact Unknown [phone] Insurance Providers: All historical and current Section [...] PART B Sep 26, 2012 PART B [id number] [facility] [phone] GIO THOMPSON JR PATIENT MEDICARE (WNR) MEDICARE (M) PART A Sep 26, 2012 PART A [id number] GIO THOMPSON JR PATIENT Selected Encounter This section includes the information on record at [place] for the Encounter. Date/Time Encounter Type Encounter Description Reason Provider Source Apr 19, 2023 10:30 AM OFFICE O/P EST LOW 20-29 MIN ORTHO/JOINT SURG ICD-10-CM M16.11 Unilateral primary osteoarthritis, right hip DAIN FIGUEROA Encounter Template Text not used by [place] Assessments - Encounter Diagnoses This section includes the primary and secondary diagnoses documented for the Encounter. Date/Time Primary/Secondary Diagnosis Diagnosis Name Provider Source Apr 21, 2023 09:15 PM PRIMARY Unilateral primary osteoarthritis, right hip LAVON FIGUEROA [facility] Apr 21, 2023 09:15 PM SECONDARY Bilateral primary osteoarthritis of knee LAVON FIGUEROA [facility] Plan of Treatment: Future Appointments (+ 6 months) and Future Tests (+/- 45 days) The Plan of Treatment section includes future care activities for the patient from [facility] [place] [facility] This section includes future appointments and future orders which are active, pending or scheduled. Future Appointments This section includes appointments that were scheduled to occur 6 months from the date of the Encounter, up to a maximum of 20 appointments. The data comes from all [place] treatment facilities. Appointment Date/Time Appointment Type Appointme nt Facility Name May 14, 2023 10:00 AM AMBULATORY - PSYCHIATRY [facility] May 20, 2023 08:00 AM AMBULATORY - PSYCHIATRY [facility] Jun 17, 2023 08:30 AM AMBULATORY - [facility] Jun 21, 2023 05:10 PM AMBULATORY - [facility]AB MEDICIN [facility] Jul 11, 2023 10:00 AM AMBULATORY - MEDICINE [facility] Jul 11, 2023 11:15 AM AMBULATORY - MEDICINE [facility] Aug 21, 2023 10:30 AM AMBULATORY - PSYCHIATRY [facility] Social History: Smoking Status (Most current) and Tobacco Use (All prior to encounter date) This section includes the most current, and the historical, smoking and tobacco- related health factors from the [place] facility where the Encounter took place. Current [...] USER 7Y OR GREATE R [facility] Encounter Notes: All associated encounter notes This section contains the clinical notes associated to the Encounter. Date/Time Encounter Note(s) Provider Source Apr 19, 2023 04:15 PM ORTHOPEDIC SURGERY ATTENDING NOTE: LOCAL TITLE: ORTHOPEDIC CLINIC NOTE STANDARD TITLE: ORTHOPEDIC SURGERY ATTENDING NOTE DATE OF NOTE: APR 19, 2023@16:15 ENTRY DATE: APR 19, 2023@16:15:07 AUTHOR: PATITO FIGUEROA COSIGNER: URGENCY: STATUS: COMPLETED SUBJECT: Orthopedic Clinic Note Subjective: Mr. Gio Thompson is a 77-year-old male returning today for repeat evaluation of bilateral knee and right hip osteoarthritis. The patient was last seen back in 02/13/23 where he was given cortisone injections on both knees. At that time he signified his intention to proceed with his right hip surgery. At present, the patient is currently being treated for pneumonia. He has a scheduled appointment next week to check if this been resolved. He continues to report right groin pain that has not changed in character. This continues to prevent him from engaging in his daily activities. His interest remains the same in pursuing right hip surgery. Objective: Physical Examination: general: alert, oriented x 3, not in acute distress, uses a walker for ambulation. Musculoskeletal: Focused examination of his right hip revealed - no obvious deformities; no significant warmth, swelling or erythema - intact skin - ROM: extension 0 degrees; flexion 100 degrees, externally rotate 25 degrees, internal rotation 5 degrees. - (+) Stinchfield test. Focused examination of both knees revealed - no obvious deformities bilaterally. - ROM: lacks a few degrees of terminal extension; flexion, 110 degrees. - mild edema in bilateral lower extremities, with hair loss. - intact motor and sensory function - distal pulses PT/DP were palpable today. Imaging: No new imaging, otherwise reviewed above Assessment/Plan: - Degenerative arthritis right hip - Degerative arthritiss bilateral knees We will hold off on scheduling him for a right MARK. The patient will continue with his pneumonia treatment and will discuss this further once the pneumonia has been resolved. The patient and his guardian were instructed to call us to get the process started once he gets cleared from pnemonia. Th enumber of our nurse coordinator was provided. The last cortisone injection given for both knees continue to provide relief. No new additional treatment for his knees. The patient and his guardian agreed with this plan. All their questions and concerns were answered to their satisfaction. I spent 25 minutes with the patient to discuss the clinical findings, review the imaging studies and treatment plan. More than 50% of the time was spent counselling the patient. /pablo/ PATITO FIGUEROA MD STAFF SURGEON Signed: 04/21/2023 21:15 PATITO FIGUEROA [facility]
--- OUTSIDE RECORDS SUMMARY | 2023-08-13 12:38 | XMS_ITS | Encounter Summary ---
Author Name Department of Vetera Affairs Organization Department of Vetera ns Affairs Address [address] [place] [address] Support Name Relationship Address Phone SIRIA THOMPSON Next of Kin [address] [place], [place] [phone] SIRIA THOMPSON Emergency Contact [address] [place] [phone] KIMBERLY CLINE Emergency Contact Unknown Insurance Providers: [...] PART B Sep 26, 2012 PART B [id number] [facility] [phone] JUAN THOMPSON JR PATIENT MEDICARE (WNR) MEDICARE (M) PART A Sep 26, 2012 PART A [id number] [facility] [phone] JUAN THOMPSON JR PATIENT Selected Encounter This section includes the information on record at [place] for the Encounter. Date/Time Encounter Type Encounter Description Reason Pro vider Source May 14, 2023 10:00 AM Outpatient Encounter PSYCHOGERIATRIC - INDIVIDUAL IHE Encounter Template Text not used by [place] Plan of Treatment: Future Appointments (+ 6 [...] 20 appointments. The data comes from all [facility] facilities. Appointment Date/Time Appointment Type Appointme nt Facility Name May 20, 2023 08:00 AM AMBULATORY - [place]ATRY [place] [facility] Jun 17, 2023 08:30 AM AMBULATORY - REHAB MEDICIN E [facility] Jun 21, 2023 05:10 PM AMBULATORY - REHAB MEDICIN E [facility] Jul 11, 2023 10:00 AM AMBULATORY - MEDICINE [facility] Jul 11, 2023 11:15 AM AMBULATORY - MEDICINE [facility] Aug 21, 2023 10:30 AM AMBULATORY - PS[place]CHIATRY [place] [facility] Nov 07, 2023 09:30 AM AMBULATORY - MEDICINE [facility] Nov 07, 2023 10:30 AM AMBULATORY - MEDICINE [facility] Social History: Smoking Status (Most [...] 2022 09:00 AM VA-TOBACCO FORMER USER [facility] Tobacco Use History This section includes a history of the smoking, or tobacco-related health factors, that were collected on or before the date of the Encounter. The data comes from the [place] facility where the Encounter took place. Date/Time Smoking Status/Tobacco Use Comment F acility Aug 15, 2022 09:00 AM VA-TOBACCO QUIT [address] [facility] Aug 21, 2021 01:00 PM VA-TOBACCO FORMER USER [facility] Aug 21, 2021 01:00 PM VA-TOBACCO QUIT [address] [facility] Jul 09, 2018 08:58 AM VA-TOBACCO FORMER USER [facility] Jul 09, 2018 08:58 AM VA-TOBACCO QUIT [address] [facility] Jul 18, 2017 09:58 AM FORMER TOBACCO USER 7Y OR [facility] Aug 14, 2016 10:59 AM FORMER TOBACCO USER [address]Y [address] [facility] [facility] Jun 29, 2015 02:03 PM FORMER TOBACCO USER [address]Y [address] [facility] Jan 06, 2014 03:04 PM FORMER TOBACCO USER [address]Y [address] [facility] Jan 04, 2012 08:36 AM FORMER TOBACCO USER 7Y OR [facility] Encounter Notes: All associated encounter notes This section contains the clinical notes associated to the Encounter. Date/Time Encounter Note(s) Provider Source May 14, 2023 12:27 PM REPORT OF CONTACT: LOCAL TITLE: APPOINTMENT SCHEDULING NOTE STANDARD TITLE: REPORT OF CONTACT DATE OF NOTE: MAY 14, 2023@12:27 ENTRY DATE: MAY 14, 2023@12:27:37 AUTHOR: HARRISON DALLAS EXP COSIGNER: URGENCY: STATUS: COMPLETED Attempted to schedule Return to clinic (RTC) Called Kimberly Cline [phone] to r/s pt. Left msg to call [phone]. Sent letter. /aneesh DALLAS MAPPING PILOT Signed: 05/14/2023 12:28 HARRISON DALLAS [facility] May 14, 2023 10:13 AM ADDENDUM: LOCAL TITLE: Addendum STANDARD TITLE: ADDENDUM DATE OF NOTE: MAY 14, 2023@10:13:35 ENTRY DATE: MAY 14, 2023@10:13:36 AUTHOR: LORETA HONEYCUTT EXP COSIGNER: URGENCY: STATUS: COMPLETED Alerting Harrison Dallas MSA. Please complete no show protocol to reschedule appointment by contacting patient's guardian , Kimberly Cline, at ph :. /aneesh HONEYCUTT DO STAFF PSYCHIATRIST Signed: 05/14/2023 10:14 Receipt Acknowledged By: 05/14/2023 12:26 /aneesh DALLAS MAPPING PILOT --- Original Document --- 05/14/23 NO SHOW NOTE: Patient did not appear for scheduled appointment. Risk Factors: gender, race, previous hx psychiatric diagnosis, previous history of psychosis, cognitive impairment Protective Factors: Denies SI/intent or plan. Denies HI. Reports stable mental health. Adequate support system Clinician Judgment of Risk: Low Plan Based on Clinician Judgment of Risk: General Teller called patient who answered telephone and reports he slept late and missed the appointment. Patient denies acute Mental health concerns. Reports he is doing well from a mental health standpoint . Also reports he is taking ozempic and recently lost 40 lbs. He reports he has occasional visual hallucinations of his family around him, reports they don't say or do anything, but he feels like he can sense their present. He denies any AH or CAH/SI/HI. He reports it would be best to call his guardian to reschedule the appointment. General Teller called patient's guardian Kimberly Cline, ph . Voicemail left alerting her to patient no show to mental health appointment and provided instructions to call and reschedule or reach the clinic with other concerns. She was provided with outpatient mental health phone number ([phone]). /pablo/ LORETA HONEYCUTT DO STAFF PSYCHIATRIST Signed: 05/14/2023 10:[address] [facility] May 14, 2023 10:08 AM NO SHOW NOTE: LOCAL TITLE: NO SHOW NOTE STANDARD TITLE: NO SHOW NOTE DATE OF NOTE: MAY 14, 2023@10:08 ENTRY DATE: MAY 14, 2023@10:08:23 AUTHOR: LORETA HONEYCUTT EXP COSIGNER: URGENCY: STATUS: COMPLETED NO SHOW NOTE Has ADDENDA Patient did not appear for scheduled appointment. Risk Factors: gender, race, previous hx psychiatric diagnosis, previous history of psychosis, cognitive impairment Protective Factors: Denies SI/intent or plan. Denies HI. Reports stable mental health. Adequate support system Clinician Judgment of Risk: Low Plan Based on Clinician Judgment of Risk: General Teller called patient who answered telephone and reports he slept late and missed the appointment. Patient denies acute Mental health concerns. Reports he is doing well from a mental health standpoint . Also reports he is taking ozempic and recently lost 40 lbs. He reports he has occasional visual hallucinations of his family around him, reports they don't say or do anything, but he feels like he can sense their present. He denies any AH or CAH/SI/HI. He reports it would be best to call his guardian to reschedule the appointment. General Teller called patient's guardian Kimberly Cline, ph . Voicemail left alerting her to patient no show to mental health appointment and provided instructions to call and reschedule or reach the clinic with other concerns. She was provided with outpatient mental health phone number ([phone]). /pablo/ LORETA HONEYCUTT DO STAFF PSYCHIATRIST Signed: 05/14/2023 10:13 05/14/2023 ADDENDUM STATUS: COMPLETED Alerting Harrison Dallas MSA. Please complete no show protocol to reschedule appointment by contacting patient's guardian , Kimberly Cline, at ph :. /pablo/ LORETA HONEYCUTT DO STAFF PSYCHIATRIST Signed: 05/14/2023 10:14 Receipt Acknowledged By: * AWAITING SIGNATURE * HARRISON DALLAS [facility]
--- OUTSIDE RECORDS SUMMARY | 2023-08-13 12:38 | XMS_ITS | Encounter Summary ---
Author Name [facility] Organization [facility] Address [address] [place] [address] Support Name Relationship Address Phone SIRIA THOMPSON Next of Kin [address] [place], [place] [id number] SIRIA THOMPSON Emergency Contact [address] [place] [id number] NATHALIE DING Emergency Contact Unknown Insurance Providers: [...] PART A Sep 26, 2012 PART A [id number] [facility] [phone] JUAN THOMPSON JR PATIENT MEDICARE (WNR) MEDICARE (M) PART B Sep 26, 2012 PART B [id number] [phone] JUAN THOMPSON JR PATIENT Selected Encounter This section includes the information on record at [place] for the Encounter. Date/Time Encounter Type Encounter Description Reason Pro vider Source May 20, 2023 08:00 AM OFFICE O/P EST HI 40-54 MIN PSYCHOGERIATRIC - INDIVIDUAL ICD-10-CM F31.81 Bipolar II disorder JOSE HONEYCUTT Encounter Template Text not used by [place] Assessments - Encounter Diagnoses This section includes the primary and secondary diagnoses documented for the Encounter. Date/Time Primary/Secondary Diagnosis Diagnosis Name Provider Source May 21, 2023 08:17 AM PRIMARY Bipolar II disorder JOSE HONEYCUTT [facility] May 21, 2023 08:17 AM SECONDARY Unspecified dementia, mild, with other behavioral disturb JOSE HONEYCUTT [facility] May 21, 2023 08:17 AM SECONDARY Visual hallucinations JOSE HONEYCUTT [facility] Plan of Treatment: Future Appointments (+ 6 months) and Future Tests (+/- 45 days) The Plan of Treatment section includes future care activities for the [facility] This section includes future appointments and future orders which are active, pending or scheduled. Future Appointments This section includes appointments that were scheduled to occur 6 months from the date of the Encounter, up to a maximum of 20 appointments. The data comes from all [facility]. Appointment Date/Time Appointment Type Appointme nt Facility Name Jun 17, 2023 08:30 AM AMBULATORY - REHAB MEDICIN [facility] Jun 21, 2023 05:10 PM AMBULATORY - REHAB MEDICIN [facility] Jul 11, 2023 10:00 AM AMBULATORY - MEDICINE [facility] Jul 11, 2023 11:15 AM AMBULATORY - MEDICINE [facility] Aug 21, 2023 10:30 AM AMBULATORY - PSYCHIATRY [facility] Nov 07, 2023 09:30 AM AMBULATORY - MEDICINE [facility] Nov 07, 2023 10:30 AM AMBULATORY - MEDICINE [facility] Social History: Smoking Status (Most current) and Tobacco Use (All prior to encounter date) This section includes the most current, and the historical, smoking and tobacco- related health factors from the [place] facility where the Encounter took place. Current Smoking Status This section includes the most current smoking, or tobacco-related health factor, from the [place] facility where the Encounter took place. Date/Time Current Smoking Status Comment Aj ity Aug 15, 2022 09:00 AM AL-TOBACCO QUIT 15 YRS OR MORE [facility] Tobacco Use History This section includes a history of the smoking, or tobacco-related health factors, that were collected on or before the date of the Encounter. The data comes from the [place] facility where the Encounter took place. Date/Time Smoking Status/Tobacco Use Comment F acility Aug 15, 2022 09:00 AM AL-TOBACCO QUIT 15 YRS OR MORE [facility] Aug 21, 2021 01:00 PM VA-TOBACCO FORMER USER [facility] Aug 21, 2021 01:00 PM VA-TOBACCO QUIT 15 YRS OR MORE [facility] Jul 09, 2018 08:58 AM VA-TOBACCO FORMER USER [facility] Jul 09, 2018 08:58 AM VA-TOBACCO QUIT 15 YRS OR MORE [facility] Jul 18, 2017 09:58 AM FORMER TOBACCO USER 7Y OR GREATE R [facility] Aug 14, 2016 10:59 AM FORMER TOBACCO USER 7Y OR GREATE R [facility] Jun 29, 2015 02:03 PM FORMER TOBACCO USER 7Y OR GREATE R [facility] Jan 06, 2014 03:04 PM FORMER TOBACCO USER 7Y OR GREATE R [facility] Jan 04, 2012 08:36 AM FORMER TOBACCO USER 7Y OR GREATE R [facility] Encounter Notes: All associated encounter notes This section contains the clinical notes associated to the Encounter. Date/Time Encounter Note(s) Provider Source May 21, 2023 08:18 AM MENTAL HEALTH ADMINISTRATIVE NOTE: LOCAL TITLE: MHTC ASSIGNMENT/REASSIGNMENT NOTE STANDARD TITLE: MENTAL HEALTH ADMINISTRATIVE NOTE DATE OF NOTE: MAY 21, 2023@08:18 ENTRY DATE: MAY 21, 2023@08:18:13 AUTHOR: LORETA HONEYCUTT COSIGNER: URGENCY: STATUS: COMPLETED MHTC ASSIGNMENT/REASSIGNMENT NOTE Has ADDENDA MHTC Reassignment This note documents the reassignment of the [facility] Mental Health Telecom Analyst (MHTC) on Apr. The [facility] new Mental Health Telecom Analyst is: MHTC Name: Loreta Honeycutt DO MHTC Contact information: Office Other contact: This [facility] existing MHTC was reassigned due to: prior psychiatrist left [facility] The assignment of the MHTC and education on the role of the MHTC in the 's mental health care was discussed with the , who verbally concurred with the reassignment. The new MHTC's contact information was provided in writing to [facility]. The [facility] CPRS chart (i.e., PCMM) and MH Treatment Plan have been updated to reflect the new MHTC Assignment. The 's new MHTC, along with the previous MHTC if applicable, are included as additional signers on this note. /pablo/ LORETA HONEYCUTT DO STAFF PSYCHIATRIST Signed: 05/21/2023 08:19 Receipt Acknowledged By: 05/21/2023 11:09 /pablo/ FAWAD CRENSHAW DEGREASING SOLUTION MIXER 06/04/2023 ADDENDUM STATUS: COMPLETED Received VM from ULYSSES Gomez at [facility] ([phone]). Patricia requesting a shower chair for as he is moving to a new apartment. Alerting PACT for f/u with Pat regarding DME needs /es/ RENU SCHOFIELD RN servomechanism designer Software Tools Build Engineer Signed: 06/04/2023 13:05 06/04/2023 ADDENDUM STATUS: COMPLETED Disregard above note. Separate CCCP note placed alerting PACT to DME needs. /pablo/ RENU SCHOFIELD RN servomechanism designer Software Tools Build Engineer Signed: 06/04/2023 13:07 LORETA HONEYCUTT [facility] May 20, 2023 08:13 AM PSYCHIATRY E & M NOTE: LOCAL TITLE: PSYCHIATRIC EVALUATION & MANAGEMENT STANDARD TITLE: PSYCHIATRY E & M NOTE DATE OF NOTE: MAY 20, 2023@08:13 ENTRY DATE: MAY 20, 2023@08:14:35 AUTHOR: LORETA HONEYCUTT EXP COSIGNER: URGENCY: STATUS: COMPLETED PSYCHIATRIC EVALUATION AND MANAGEMENT FOLLOW UP VISIT INTERVAL HISTORY: Patient presents on time for appointment. He ambulates with a walker. He is appropriately dressed and groomed. He is cooperative. His thought process is tangential but redirectable. Patient reports overall his mood is pretty good. He reports that current medications appear to be helping him. States he had 1 incident at his current residence where he blew up at another resident but this was very out of character. In general reports he is good at making friends and is interested in becoming more of a community with the people in his residence. Roving Inspector asked patient about prior report of delusions of being able to communicate with Emma Esparza through the television. Patient reports that happened in the past and is no longer occurring. He reports he would watch [employer] every night and that she had a message for him and about 100 other people. Reports she would show him images of protesters being lead away or wrongly treated. States he showed Emma Senaw pictures of his grandchildren. Currently denies any ability to communicate with television. He denies paranoid or persecutory delusion, though he does report that his communication with Emma Esparza was real. Denies command type auditory hallucinations. Patient reports visual hallucinations of seeing his family occasionally. States it can happen at anytime of day. States it does not bother him at all and is actually somewhat of a comfort. He will see his mother and his sister talking. Does make him sad sometimes that he cannot communicate with them. He emphasizes that it is not bothersome and is if anything a comfort, and does not want to change his medication to target the symptoms, which are not causing any danger to himself or others. Patient denies suicidal ideation, intent, or plan. Denies homicidal ideation. No manic or hypomanic symptoms reported. Reports sleep is adequate. States his mood fluctuates and if anything tends towards the depressed side, but currently feels the medications are helping maintain a stable mood. Reports he does get sad when he thinks about his estranged relationship with his son and grandchildren. We reviewed neuropsychological testing. Patient reports he had a lot of difficulty completing the testing. Reports he has a crush on the aws consultant and felt like a 17-year-old boy. He reports his mind went chaney and he could not focus on some of the tasks. He thinks some of this might have had to do with adjusting aripiprazole several weeks prior. Now feels he has adjusted aripiprazole and its helping him. SUBSTANCE USE: Denies current substance use MEDICATION COMPLIANCE: Good per patient SIDE EFFECTS: MEDICAL ROS (Review of System): MOST RECENT VITALS: Blood Pressure: 118/77 (02/25/2023 09:35) Pulse: 77 (02/25/2023 09:35) Temperature: 98.5 F [36.9 C] (02/25/2023 09:35) Weight: 207.2 lb [93.98 kg] (02/25/2023 09:35) Body Mass Index: 31.6 Kidney Function: Creatinine: CREATININE 1.3 H (02/13/23) Liver Panel: Alk Phosphatase ALK PHOSPHATASE 149 (11/06/22) ALT/SGPT: SGPT 19 (11/06/22) AST/SGOT: SGOT 16 (11/06/22) Bilirubin: BILIRUBIN, TOTAL 0.5 (11/06/22) Metabolic: LAB TESTS SELECTED Collection DT Specimen Test Name Result Units Ref Range 02/13/2023 15:07 BLOOD !! HEMOGLOBIN A1C 7.4 H % 4.0 - 6.0 !! Indicates COMMENTS AVAILABLE...Refer to Interim Lab Report. GLUCOSE 129 H (02/13/23) Lipid Panel: Cholesterol: CHOLESTEROL 115 (08/28/22) Triglyceride: TRIGLYCERIDE____ HDL: HDL 43 (08/28/22) LDL-C: LDL CALCULATION 58 (08/28/22) TSH: TSH 2.66 (08/28/22) MENTAL STATUS EXAM: General: Cooperative, no acute distress Eye Contact: Good Psychomotor Activity: WNL (Within normal limits) Abnormal Involuntary Movements: None Speech: Regular rate and rhythm, soft Mood: Euthymic Affect: Euthymic Thought Process: Tangential, referencing unrelated past events Thought Content: Denies SI (Suicidal Ideation), HI(Homicidal Ideation) Perceptual disturbances: No AH(Auditory Hallucinations),VH(Visual Hallucinations), or delusions Insight: Fair Judgment: Fair Attention/Concentration: Intact for exam purposes Musculoskeletal: Muscle strength/tone intact for exam purposes. Neuropsychological testing 01/17/2023: SUMMARY/IMPRESSIONS: The [facility] presentation is likely consistent with a major neurocognitive disorder (dementia) affecting multiple cognitive domains. Etiology is certainly multifactorial. The 's psychiatric presentation likely plays a prominent role; symptoms of psychosis were evident during the current evaluation and appeared to affect his attention and ability to engage in the assessment; this may be technical service representative of his day-to-day functioning. Given his [...] as Alzheimer's disease is less likely. The [facility] presentation is complex and symptoms may persist and progress, as his history increases his risk for future decline. Further evaluation of his psychiatric symptoms and intervention for management of diabetes and sleep disruption is encouraged. DIAGNOSIS: Unspecified dementia, mild, with other behavioral disturbance (ICD- 10-CM F03.A18) (Primary), Bipolar Disorder, Current Episode Depressed, Severe, with Psychotic Features (ICD-10-CM F31.5) MoCA (09/2021) SUICIDE RISK ASSESSMENT: Low acute [...] MDD, seen today for geriatric psychiatry follow-up. Last seen by Dr. Delvalle October 2022 at which time aripiprazole was increased from 15 to 20 mg for depression. Psychotic symptoms were noted during neuropsychological assessment by Dr. Hess in December 2022. He reported an ability to communicate with television writer Emmawinifred SenaNiko Niko and visual hallucinations of his siblings at night. Today patient endorses stable mood, and believes depression has improved since increase in aripiprazole. He continues to endorse delusion that he communicated with television writer in the past, though reports it is not currently occurring. He continues to report visual hallucinations of his family which are not bothersome and if anything are comforting. Denies any command type auditory hallucinations, suicidal ideation, homicidal ideation, manic or hypomanic symptoms. Though some induced psychosis are present, (fixed delusion about communicating with EmmaCrowd Visionw, VH of family), the intensity appears to have lessened and now references that communication with television writer occured in the past, not currently and are not interfering with patient's daily function, not distressing, and not causing patient to be a danger to himself or others. VH/delusions are not associated with current symptoms of a major depressive episode. Patient does not want to increase his medication any further at present and believes it is helping and maintaining stable mood. We will continue to monitor closely. DIAGNOSIS: Bipolar Disorder, most recent episode depressed, now stable Psychosis, unspecified Unspecified dementia, mild, with other behavioral disturbance (ICD- 10-CM F03.A18) TREATMENT PLAN: 1) Continue Aripiprazole 20 mg po daily. Most recent metabolic labs from 2023 reviewed, continue to monitor. 2) Continue Venlafaxine 150 mg po daily. 3) Continue Bupropion 24HR 150 mg po daily. 4) NPT completed 5) RTC in 2 months. Informed of this provider's anticipated move and plans to transition care at that time. Call with questions or concerns. Aware of clinic contact info and crisis/emergency services to utilize if needed. PERCEIVED ACUTE SUICIDE RISK: Low acute - No current intent or recent suicide preparatory behaviors. Protective factors and coping strategies are present. PERCEIVED CHRONIC SUICIDE RISK: Low Chronic - Can identify strengths, activate and utilize resources, does not have chronic suicidal ideation or history of self-directed violence. EDUCATION / SAFETY / MH TREATMENT PLAN: [...] agrees to contact this clinic with any concerns. Patient is aware of additional MH services that are available, including emergency room and [facility] options. This plan was discussed with the patient who acknowledges agreement and understanding. Total time, including time spent preparing to see patient, performing appropriate examination/evaluation, counseling and education of patient/family/caregiver, documenting clinical information in medical record, and care coordination: 60 minutes /es/ LORETA HONEYCUTT DO STAFF PSYCHIATRIST Signed: 05/21/2023 08:17 LORETA HONEYCUTT [facility]
--- OUTSIDE RECORDS SUMMARY | 2023-08-13 12:39 | XMS_ITS | Encounter Summary ---
Author Name [facility] Organization [facility] Address [address] [place] [address] Support Name Relationship Address Phone SIRIA THOMPSON Next of Kin [address] [place], [place] [id number] SIRIA THOMPSON Emergency Contact [address] [place] [phone] NATHALIE DING Emergency Contact Unknown Insurance Providers: [...] PART B Sep 26, 2012 PART B [id number] [facility] [phone] JUAN THOMPSON JR PATIENT MEDICARE (WNR) MEDICARE (M) PART A Sep 26, 2012 PART A [id number] [phone] JUAN THOMPSON JR PATIENT Selected Encounter This section includes the information on record at [place] for the Encounter. Date/Time Encounter Type Encounter Description Reason Provider Source Jul 11, 2023 10:00 AM OFFICE O/P EST MOD 30-39 MIN ENDOCRINOLOGY ICD-10-CM E66.3 Overweight RAF ALVAREZ Encounter Template Text not used by [place] Assessments - Encounter Diagnoses This section includes the primary and secondary diagnoses documented for the Encounter. Date/Time Primary/Secondary Diagnosis Diagnosis Name Provider Source Jul 15, 2023 11:19 AM PRIMARY Overweight RAF ALVAREZ [facility] Jul 15, 2023 11:19 AM SECONDARY Bariatric surgery status RAF ALVAREZ [facility] Jul 15, 2023 11:19 AM SECONDARY Type 2 diabetes mellitus without complications RAF ALVAREZ [facility] Plan of Treatment: Future Appointments (+ 6 months) and Future Tests (+/- 45 days) The Plan of Treatment section includes future care activities for the patient from all [place] [facility]. This section includes future appointments and future orders which are active, pending or scheduled. Future Appointments This section includes appointments that were scheduled to occur 6 months from the date of the Encounter, up to a maximum of 20 appointments. The data comes from all [facility]. Appointment Date/Time Appointment Type Appointme nt Facility Name Aug 21, 2023 10:30 AM AMBULATORY - PSYCHIATRY [facility] Nov 07, 2023 09:30 AM AMBULATORY - MEDICINE [facility] Nov 07, 2023 10:30 AM AMBULATORY MEDICINE [facility] Active, Pending, and Scheduled Orders This section includes a listing of several types of active, pending, and scheduled orders, including clinic medications orders, diagnostic test orders, procedure orders and consult orders; where the start date of the order is 45 days before the date of the Encounter or 45 days after the date of theEncounter. The data comes from all [facility]. Test Date/Time Test Type Test Details Facility Name Jul 11, 2023 12:00 AM Laboratory - Chemi stry Order VITAMIN A SERUM [facility] Jul 11, 2023 12:00 AM Laboratory - Chemi stry Order HEMOGLOBIN A1C BLOOD [facility] Aug 15, 2023 12:00 AM Laboratory - Chemi stry Order BASIC METABOLIC PANEL+MG PLASMA [facility] Aug 15, 2023 12:00 AM Laboratory - Chemi stry Order HEMOGLOBIN A1C BLOOD [facility] Aug 15, 2023 12:00 AM Laboratory - Chemi stry Order CBC BLOOD [facility] Lab Results: +/- 30 days [...] Result - Unit Interpretation Reference Range Comment Jul 11, 2023 10:38 AM [facility] BASIC METABOLIC PANEL+MG Specimen Type: PLASMA No comment entered. Ordering Provider: ISAEL ALVAREZ Report Released Date/Time: Jul 11, 2023 10:23 AM Reporting Lab: [facility] [id number] Performing Lab: [facility] [id number] CREATININE 1.2 0.7-1.2 UREA NITROGEN 22 8-26 GLUCOSE 193 H 70-100 SODIUM 143 136-145 POTASSIUM 3.7 3.5-5.1 CHLORIDE 108 H 98-107 CO2 28 22-29 CALCIUM 9.2 8.4-10.2 MAGNESIUM 1.8 1.6-2.6 ANION GAP 7 5-15 .CREAT EGFR(CKD-EPI ) 63 >60 Jul 11, 2023 10:37 AM [facility] VITAMIN B-1,BLOOD Specimen Type: BLOOD Comment: Vitamin supplementation within 24 hours prior to blood draw may affect the accuracy of the results. This test was developed and its analytical performance characteristics have been determined by [employer] [place], [place]. It has not been cleared or approved by the U.S. Food and Drug Administration. This assay has been validated pursuant to the CLIA regulations and is used for clinical purposes. Test Performed by [facility], [facility] [place], [address] [place] [address] Devante Meyer M.D., Ph.D., Director of Laboratories , CLIA [id number] Ordering Provider: ISAEL ALVAREZ Report Released Date/Time: Jul 11, 2023 10:23 AM Reporting Lab: [facility] [id number] Performing Lab: [address] VITAMIN B-1,BLOOD 132 78-185 Jul 11, 2023 10:37 AM [facility] VITAMIN A Specimen Type: SERUM Comment: Vitamin supplementation within 24 hours prior to blood draw may affect the accuracy of the results. This test was developed and its analytical performance characteristics have been determined by [facility] [place] [place]. It has not been cleared or approved by the U.S. Food and Drug Administration. This assay has been validated pursuant to the CLIA regulations and is used for clinical purposes. Test Performed by [facility] [employer] [place], [address] [place] [address] Devante Meyer M.D., Ph.D., Director of Laboratories , CLIA [id number] Ordering Provider: ISAEL ALVAREZ Report Released Date/Time: Jul 11, 2023 10:23 AM Reporting Lab: [facility] [phone] Performing Lab: [address] [address] VITAMIN A 53 38-98 Jul 11, 2023 10:37 AM [facility] ZINC Specimen Type: SERUM Comment: This test was developed and its analytical performance characteristics have been determined by [facility] [place] [place]. It has not been cleared or approved by the U.S. Food and Drug Administration. This assay has been validated pursuant to the CLIA regulations and is used for clinical purposes. Test Performed by [facility] [employer] [place], [address] [place] [address] Devante Meyer M.D., Ph.D., Director of Laboratories , CLIA [id number] Ordering Provider: ISAEL ALVAREZ Report Released Date/Time: Jul 11, 2023 10:23 AM Reporting Lab: [facility] [phone] Performing Lab: [address] ZINC 78 60-130 Jul 11, 2023 10:37 AM [facility] COPPER Specimen Type: PLASMA Comment: This test was developed and its analytical performance characteristics have been determined by [facility] [place] [place]. It has not been cleared or approved by the U.S. Food and Drug Administration. This assay has been validated pursuant to the CLIA regulations and is used for clinical purposes. Test Performed by [facility] [employer] [place], [address] [place] [address] Devante Meyer M.D., Ph.D., Director of Laboratories , CLIA [id number] Ordering Provider: ISAEL ALVAREZ Report Released Date/Time: Jul 11, 2023 10:23 AM Reporting Lab: [facility] [phone] Performing Lab: [facility] [address] [facility] [address] [place] 81 70-175 Jul 11, 2023 10:37 AM [facility] FERRITIN Specimen Type: SERUM No comment entered. Ordering Provider: ISAEL ALVAREZ Report Released Date/Time: Jul 11, 2023 10:23 AM Reporting Lab: [facility] [id number] Performing Lab: [facility] [address] FERRITIN 66.0 21.8-274.7 Jul 11, 2023 10:37 AM [facility] LIPID PANEL,NON-FASTING Specimen Type: PLASMA Comment: Values obtained from A1C measurements can vary. For typical A1C assays, a reported value of 7.0 could actually be between 6.7 and 7.3 if measured by a reference method. A reported value of 9.0 could actually be between 8.7 and 9.3. Ref: http://www.ngsp. org/CAPdata.asp Ordering Provider: ISAEL ALVAREZ Report Released Date/Time: Jul 11, 2023 10:23 AM Reporting Lab: [facility] [phone] Performing Lab: [facility] Jul 11, 2023 10:37 AM [facility] HEMOGLOBIN A1C Specimen Type: BLOOD Comment: Values obtained from A1C measurements can vary. For typical A1C assays, a reported value of 7.0 could actually be between 6.7 and 7.3 if measured by a reference method. A reported value of 9.0 could actually be between 8.7 and 9.3. Ref: http://www.ngsp. org/CAPdata.asp Ordering Provider: ISAEL ALVAREZ Report Released Date/Time: Jul 11, 2023 10:23 AM Reporting Lab: [facility] [phone] Performing Lab: [facility] [address] HEMOGLOBIN A1C 6.5 H 4.0-6.0 Jul 11, 2023 10:37 AM [facility] PRE-ALBUMIN Specimen Type: SERUM No comment entered. Ordering Provider: ISAEL ALVAREZ Report Released Date/Time: Jul 11, 2023 10:23 AM Reporting Lab: [facility] [phone] Performing Lab: [facility] [address] PRE-ALBUMIN 22.5 14.0-45.0 Jul 11, 2023 10:37 AM [facility] B 12 Specimen Type: PLASMA No comment entered. Ordering Provider: ISAEL ALVAREZ Report Released Date/Time: Jul 11, 2023 10:23 AM Reporting Lab: [facility] [phone] Performing Lab: [facility] [address] B 12 1016 H 213-816 Jul 11, 2023 10:37 AM [facility] CBC Specimen Type: BLOOD No comment entered. Ordering Provider: ISAEL ALVAREZ Report Released Date/Time: Jul 11, 2023 10:23 AM Reporting Lab: [facility] [address] Performing Lab: [facility] [address] WBC 7.56 4.0-11.0 RBC 4.25 L 4.6-6.2 HGB 12.5 L 13.5-17.9 HCT 39.1 L 41-54 MCV 92.0 80-100 MCH 29.4 27-33 MCHC 32.0 32.0-37.5 PLT 249 150-400 MPV 9.8 7.4-10.4 RDW 14.6 H 11.5-14.5 Jul 11, 2023 10:37 AM [facility] FOLATE Specimen Type: SERUM No comment entered. Ordering Provider: ISAEL ALVAREZ Report Released Date/Time: Jul 11, 2023 10:23 AM Reporting Lab: [facility] [address] Performing Lab: [facility] [address] FOLATE 17.8 >7.0 Jul 11, 2023 10:37 AM [facility] IRON GROUP Specimen Type: SERUM Comment: Values obtained from A1C measurements can vary. For typical A1C assays, a reported value of 7.0 could actually be between 6.7 and 7.3 if measured by a reference method. A reported value of 9.0 could actually be between 8.7 and 9.3. Ref: [email or web address].[email or web address] org/CAPdata.asp Ordering Provider: ISAEL ALVAREZ Report Released Date/Time: Jul 11, 2023 10:23 AM Reporting Lab: [facility] [address] Performing Lab: [facility] Jul 11, 2023 10:37 AM [facility] MAGNESIUM Specimen Type: PLASMA No comment entered. Ordering Provider: ISAEL ALVAREZ Report Released Date/Time: Jul 11, 2023 10:23 AM Reporting Lab: [facility] [address] Performing Lab: [facility] [address] MAGNESIUM 1.7 1.6-2.6 Jul 11, 2023 10:37 AM [facility] VIT D 25-OH,TOTAL Specimen Type: SERUM No comment entered. Ordering Provider: ISAEL ALVAREZ Report Released Date/Time: Jul 11, 2023 10:23 AM Reporting Lab: [facility] [address] Performing Lab: [facility] [address] VIT D 25-OH,TOTAL 68 H 12-50 Jul 11, 2023 10:37 AM [facility] CALCIUM Specimen Type: PLASMA No comment entered. Ordering Provider: ISAEL ALVAREZ Report Released Date/Time: Jul 11, 2023 10:23 AM Reporting Lab: [facility] [address] Performing Lab: [facility] [address] CALCIUM 9.2 8.4-10.2 Jul 11, 2023 10:37 AM [facility] PTH-N-TACT Specimen Type: SERUM No comment entered. Ordering Provider: ISAEL ALVAREZ Report Released Date/Time: Jul 11, 2023 10:23 AM Reporting Lab: [facility] [phone] Performing Lab: [facility] [address] PTH-N-TACT 30.3 8.7-77.1 Vital Signs: All taken on the encounter date This section contains inpatient and outpatient Vital Signs collected on the date of the Encounter. Date/Time Temperature Pulse Blood Pressure Respiratory Rate SP02 Pain Height Weight Body Mass Index Source Jul 11, 2023 09:58 AM 97.4 F 97 /min 104/71 mm[Hg] 16 /min 99 % 4 184.3 lb 28 CIARA GAMING [facility] Social History: Smoking Status (Most current) [...] Facil ity Aug 15, 2022 09:00 AM [place]-TOBACCO QUIT 15 YRS OR MORE [facility] Tobacco Use History This section includes a history of the smoking, or tobacco-related health factors, that were collected on or before the date of the Encounter. The data comes from the [facility] where the Encounter took place. Date/Time Smoking Status/Tobacco Use Comment F acility Aug 15, 2022 09:00 AM [place]-TOBACCO QUIT 15 YRS OR MORE [facility] Aug 21, 2021 01:00 PM VA-TOBACCO FORMER USER [facility] Aug 21, 2021 01:00 PM [place]-TOBACCO QUIT 15 YRS OR MORE [facility] Jul 09, 2018 08:58 AM [place]-TOBACCO FORMER USER [facility] Jul 09, 2018 08:58 AM [place]-TOBACCO QUIT 15 YRS OR MORE [facility] [...] USER 7Y OR GREATE R [facility] Encounter Notes: All associated encounter notes This section contains the clinical notes associated to the Encounter. Date/Time Encounter Note(s) Provider Source Jul 18, 2023 08:20 PM ADDENDUM: LOCAL TITLE: Addendum STANDARD TITLE: ADDENDUM DATE OF NOTE: JUL 18, 2023@20:20:42 ENTRY DATE: JUL 18, 2023@20:20:43 AUTHOR: ISAEL ALVAREZ EXP COSIGNER: URGENCY: STATUS: COMPLETED lab results letter sent to pt--will alert Timothy Munoz here by way of co-sign to please review that with him and review the nutritional supplement doses he is currently taking as well as recommendations for adjustments. thanks for your input. /pablo/ ISAEL ALVAREZ MD PHYSICIAN Signed: 07/18/2023 20:23 Receipt Acknowledged By: 07/24/2023 09:09 /pablo/ MILY CACER[address], LD MOVE! Dietitian for TIMOTHY Cox TAMMY --- Original Document --- 07/11/23 METABOLIC CLINIC NOTE: Endocrine/Metabolic Clinic Note Nursing note reviewed and agree. PAtient is a 77 YO M w/ PMHx significant for nora-en-y bypass (2011), T2DM who presents to clinic to seek assistance with weight loss. return visit for him, reviewed and relevant is the following history, as extracted-- Patient eats 3 meals a day and [...] lbs and his diabetes went into remission. Interval history: He had his nora-en-y procedure in 2011 and continues taking vitamins/supplements since then including calcium, MVI, B12, vit D. He drinks about 1 gallon of milk a week in various forms (including use with cereal). His goal is to reduce his weight to 170lbs; he again notes this was the weight he was at last time when his diabetes went into remission. He has never had pancreatitis. due for nutritional labs screening again Medication effects and side effects: semaglutide 0.5 mg weekly, tolerating, benefiting Metformin 500 mg daily Past Medical History: Active problems - Computerized Problem List is the source for the followin. Essential hypertension (SNOMED CT 15422229) 2. Major depressive disorder (SNOMED CT 223763935) 3. Generalized anxiety disorder (SNOMED CT 54424530) 4. Primary Obesity 5. Bronchiectasis (SNOMED CT 90849374) 6. Gastroesophageal reflux disease (SNOMED CT 956791421) 7. Bariatric Surgery Status 8. Cataracts (SNOMED CT 10796963) 9. Hypermetropia/Hyperopia 10. Astigmatism, Unspec 11. Presbyopia 12. Atrial fibrillation (SNOMED CT 98367162) 13. Varicose veins of lower extremity 14. Compulsive gambling 15. Bipolar disorder (SNOMED CT 24357802) 16. Mild cognitive disorder 17. Type 2 diabetes mellitus 18. Long-term current use of anticoagulant 19. Gastritis 20. Dementia Allergies: SULFAMETHOXAZOLE (Feb 07, 2022) EMPAGLIFLOZIN (Jun [...] TO PREVENT AND/OR TREAT BLOOD CLOTS ARIPIPRAZOLE 20MG TAB TAKE ONE TABLET BY MOUTH EVERY DAY ACTIVE FOR BIPOLAR DISORDER DOSE INCREASED 11-23-22 ATORVASTATIN CALCIUM 10MG TAB TAKE ONE TABLET [...] ONE TABLET BY MOUTH EVERY ACTIVE DAY FERROUS SULFATE 325MG TAB TAKE ONE TABLET BY MOUTH EVERY ACTIVE DAY IRON DEFICIENCY LIDOCAINE 5% PATCH APPLY 1 PATCH TOPICALLY [...] PRIOR TO A MEAL FOR REFRACTORY GERD SEMAGLUTIDE 0.25MG/0.375ML INJ PEN 3ML INJECT 0.5MG UNDER ACTIVE THE SKIN EVERY WEEK DIABETES AND WEIGHT LOSS VENLAFAXINE HCL 150MG 24HR SA CAP TAKE ONE CAPSULE BY ACTIVE MOUTH EVERY DAY Review of Systems: Constitutional/endo reviewed with pertinents as above Physical Exam: Vital Signs Temp: 97.4 F [36.3 C] (07/11/2023 09:58) B/P: 104/71 (07/11/2023 09:58) Pulse: 97 (07/11/2023 09:58) Ht: 68 in [172.7 cm] (02/25/2023 09:35) Wt: 184.3 lb [83.60 kg] (07/11/2023 09:58) Pain: 4 (07/11/2023 09:58) BMI: 28.1 General: NAD, alert, interactive HEENT: NCAT, eomi, no scleral icterus or proptosis Labs: 02/13/2023 15:07 WBC BLOOD 7.60 K/cmm 4.0 11.0 Automated Differential Performed... [+] 02/13/2023 15:07 UREA NITROGEN PLASMA 16 mg/dL 8 26 02/13/2023 15:07 SODIUM PLASMA 144 mmol/L 136 145 02/13/2023 15:07 RDW BLOOD 16.1 H % 11.5 14.5 Automated Differential Performed... [+] 02/13/2023 15:07 RBC BLOOD 4.50 L M/cmm 4.6 6.2 Automated Differential Performed... [+] 02/13/2023 15:07 POTASSIUM PLASMA 3.9 mmol/L 3.5 5.1 02/13/2023 15:07 PLT BLOOD 246 K/cmm 150 400 Automated Differential Performed... [+] 02/13/2023 15:07 NEUT BLOOD 58.9 % Automated Differential Performed... [+] 02/13/2023 15:07 MPV BLOOD 10.0 fL 7.4 10.4 Automated Differential Performed... [+] 02/13/2023 15:07 MONO BLOOD 8.9 % Automated Differential Performed... [+] 02/13/2023 15:07 MCV BLOOD 88.2 fL 80 100 Automated Differential Performed... [+] 02/13/2023 15:07 MCHC BLOOD 31.7 L g/dL 32.0 37.5 Automated Differential Performed... [+] 02/13/2023 15:07 MCH BLOOD 28.0 pg 27 33 Automated Differential Performed... [+] 02/13/2023 15:07 MAGNESIUM PLASMA 1.8 mg/dL 1.6 2.6 02/13/2023 15:07 LYMPHS BLOOD 28.8 % Automated Differential Performed... [+] 02/13/2023 15:07 IPF BLOOD 3.0 % 0 10 Automated Differential Performed... [+] 02/13/2023 15:07 IG(META,MYELO,PRO) BLOOD 0.3 % Automated Differential Performed... [+] 02/13/2023 15:07 HGB BLOOD 12.6 L g/dL 13.5 17.9 Automated Differential Performed... [+] 02/13/2023 15:07 HEMOGLOBIN A1C BLOOD 7.4 H % 4.0 6.0 Values obtained from A1C measurements can vary. For typical A1C... [+] 02/13/2023 15:07 HCT BLOOD 39.7 L % 41 54 Automated Differential Performed... [+] 02/13/2023 15:07 GLUCOSE PLASMA 129 H mg/dL 70 100 02/13/2023 15:07 EOSINO BLOOD 2.8 % Automated Differential Performed... [+] 02/13/2023 15:07 EGFRCKD PLASMA 57 L 60 02/13/2023 15:07 CREATININE PLASMA 1.3 H mg/dL 0.7 1.2 02/13/2023 15:07 CO2 PLASMA 32 H mmol/L 22 29 02/13/2023 15:07 CHLORIDE PLASMA 105 mmol/L 98 107 02/13/2023 15:07 CALCIUM PLASMA 9.1 mg/dL 8.4 10.2 02/13/2023 15:07 BASO BLOOD 0.3 % Automated Differential Performed... [+] 02/13/2023 15:07 ANION GAP PLASMA 7 mmol/L 5 15 02/13/2023 15:07 ALBUMIN PLASMA 3.8 g/dL 3.5 5.2 02/13/2023 15:07 ABS NEUT BLOOD 4.48 K/cmm 2.0 7.7 Automated Differential Performed... [+] 02/13/2023 15:07 ABS MONO BLOOD 0.68 K/cmm 0.1 1.0 Automated Differential Performed... [+] 02/13/2023 15:07 ABS LYMPH BLOOD 2.19 K/cmm 1.0 4.0 Automated Differential Performed... [+] 02/13/2023 15:07 ABS IMMATURE GRAN BLOOD 0.02 K/UL 0 0.1 Automated Differential Performed... [+] 02/13/2023 15:07 ABS EOS BLOOD 0.21 K/cmm 0 0.5 Automated Differential Performed... [+] 02/13/2023 15:07 ABS BASO BLOOD 0.02 K/cmm 0 0.2 Automated Differential Performed... [+] Assessment and Plan: # Morbid Obesity (BMI 28 with treatment) # T2DM - controlled # s/p Nora-en-y bypass w/ low iron prior, need to reassess PLAN: -labs today # osteoporosis screen (done 12/18) Familial history of osteoporosis. he had reported height decrease from 5'10 to 5'8. No fracture history. Takes calcium --had nl DXA --will follow RTC October 2023 with labs then Time spent 30 minutes /pablo/ ISAEL ALVAREZ MD PHYSICIAN Signed: 07/15/2023 11:19 ISAEL ALVAREZ [facility] Jul 15, 2023 10:54 AM LETTERS: LOCAL TITLE: FOLLOW UP RESULTS LETTER STANDARD TITLE: LETTERS DATE OF NOTE: JUL 15, 2023@10:54 ENTRY DATE: JUL 15, 2023@10:54:51 AUTHOR: ISAEL ALVAREZ EXP COSIGNER: URGENCY: STATUS: COMPLETED [facility] [place] [address] Jun JUAN THOMPSON [address] [facility] [address] Dear : I am writing to inform you of the results of the tests you had done at the [facility]. The tests below were performed and are satisfactory unless otherwise noted. The date and time of the test as well as the normal range is listed if the actual value of the test is included. Comments: Metabolic results--with these results we will want to check in with you on your current iron supplementation dosage, result here is low. Also, the 25OH vitamin D level was high--you can lower your daily intake by around 2000 IU--we will confirm after we confirm the dosage you have been taking most recently and how long you have been regularly taking that dose. Collection time: Jul 11, 2023@10:37 Test Name Result Units Range --------- ------ ----- ----- ZINC 78 mcg/dL 60 - 130 COPPER 81 mcg/dL 70 - 175 FOLATE 17.8 ng/mL Ref: >=7.0 IRON 45 L ug/dL 65 - 175 TRANSFERRIN 188 mg/dL 163 - 382 TIBC,CALCULATED 235 L ug/dL 250 - 425 IRON SATURATION 19 L % 20 - 50 FERRITIN 66.0 ng/mL 21.8 - 274.7 FERRITIN 66.0 ng/mL 21.8 - 274.7 PRE-ALBUMIN 22.5 mg/dL 14.0 - 45.0 VIT D 25-OH,TOTAL 68 H ng/mL 12 - 50 B 12 1016 H pg/mL 213 - 816 CALCIUM 9.2 mg/dL 8.4 - 10.2 MAGNESIUM 1.7 mg/dL 1.6 - 2.6 CHOLESTEROL 110 mg/dL Ref: <=199 TRIG(NON FASTING) 93 mg/dL Ref: <=149 .HDL 53 mg/dL Ref: >=40 LDL CALCULATION 38 mg/dL Ref: <=99 VLDL CALCULATION 19 mg/dL Ref: <=29 NON HDL CHOLESTEROL 57 mg/dL Ref: <=129 PTH-N-TACT 30.3 pg/mL 8.7 - 77.1 SODIUM 143 mmol/L 136 - 145 POTASSIUM 3.7 mmol/L 3.5 - 5.1 CHLORIDE 108 H mmol/L 98 - 107 CO2 28 mmol/L 22 - 29 ANION GAP 7 mmol/L 5 - 15 GLUCOSE 193 H mg/dL 70 - 100 UREA NITROGEN 22 mg/dL 8 - 26 CREATININE 1.2 mg/dL 0.7 - 1.2 CALCIUM 9.2 mg/dL 8.4 - 10.2 MAGNESIUM 1.8 mg/dL 1.6 - 2.6 .CREAT EGFR(CKD-EPI) 63 Ref: >=60 WBC 7.56 K/cmm 4.0 - 11.0 RBC 4.25 L M/cmm 4.6 - 6.2 HGB 12.5 L g/dL 13.5 - 17.9 HCT 39.1 L % 41 - 54 MCV 92.0 fL 80 - 100 MCH 29.4 pg 27 - 33 MCHC 32.0 g/dL 32.0 - 37.5 RDW 14.6 H % 11.5 - 14.5 PLT 249 K/cmm 150 - 400 MPV 9.8 fL 7.4 - 10.4 HEMOGLOBIN A1C 6.5 H % 4.0 - 6.0 VITAMIN A 53 mcg/dL 38 - 98 VITAMIN B-1,BLOOD 132 nmol/L 78 - 185 If you have any further questions or problems, please contact our nursing staff or me at the following number: [phone]. Sincerely, ISAEL ALVAREZ MD PHYSICIAN ISAEL ALVAREZ [facility] Jul 11, 2023 10:07 AM ENDOCRINOLOGY ATTE NDMICHELLE NOTE: LOCAL TITLE: METABOLIC CLINIC NOTE STANDARD TITLE: ENDOCRINOLOGY ATTENDING NOTE DATE OF NOTE: JUL 11, 2023@10:07 ENTRY DATE: JUL 11, 2023@10:07:31 AUTHOR: ISAEL ALVAREZ EXP COSIGNER: URGENCY: STATUS: COMPLETED METABOLIC CLINIC NOTE Has ADDENDA Endocrine/Metabolic Clinic Note Nursing note reviewed and agree. PAtient is a 77 YO M w/ PMHx significant for nora-en-y bypass (2011), T2DM who presents to clinic to seek assistance with weight loss. return visit for him, reviewed and relevant is the following history, as extracted-- Patient eats 3 meals a day and [...] lbs and his diabetes went into remission. Interval history: He had his nora-en-y procedure in 2011 and continues taking vitamins/supplements since then including calcium, MVI, B12, vit D. He drinks about 1 gallon of milk a week in various forms (including use with cereal). His goal is to reduce his weight to 170lbs; he again notes this was the weight he was at last time when his diabetes went into remission. He has never had pancreatitis. due for nutritional labs screening again Medication effects and side effects: semaglutide 0.5 mg weekly, tolerating, benefiting Metformin 500 mg daily Past Medical History: Active problems - Computerized Problem List is the source for the followin. Essential hypertension (SNOMED CT 49902979) 2. Major depressive disorder (SNOMED CT 920062257) 3. Generalized anxiety disorder (SNOMED CT 45717975) 4. Primary Obesity 5. Bronchiectasis (SNOMED CT 94920120) 6. Gastroesophageal reflux disease (SNOMED CT 557818658) 7. Bariatric Surgery Status 8. Cataracts (SNOMED CT 89559249) 9. Hypermetropia/Hyperopia 10. Astigmatism, Unspec 11. Presbyopia 12. Atrial fibrillation (SNOMED CT 63011235) 13. Varicose veins of lower extremity 14. Compulsive gambling 15. Bipolar disorder (SNOMED CT 50959509) 16. Mild cognitive disorder 17. Type 2 diabetes mellitus 18. Long-term current use of anticoagulant 19. Gastritis 20. Dementia Allergies: SULFAMETHOXAZOLE (Feb 07, 2022) EMPAGLIFLOZIN (Jun [...] TO PREVENT AND/OR TREAT BLOOD CLOTS ARIPIPRAZOLE 20MG TAB TAKE ONE TABLET BY MOUTH EVERY DAY ACTIVE FOR BIPOLAR DISORDER DOSE INCREASED 11-23-22 ATORVASTATIN CALCIUM 10MG TAB TAKE ONE TABLET [...] ONE TABLET BY MOUTH EVERY ACTIVE DAY FERROUS SULFATE 325MG TAB TAKE ONE TABLET BY MOUTH EVERY ACTIVE DAY IRON DEFICIENCY LIDOCAINE 5% PATCH APPLY 1 PATCH TOPICALLY [...] PRIOR TO A MEAL FOR REFRACTORY GERD SEMAGLUTIDE 0.25MG/0.375ML INJ PEN 3ML INJECT 0.5MG UNDER ACTIVE THE SKIN EVERY WEEK DIABETES AND WEIGHT LOSS VENLAFAXINE HCL 150MG 24HR SA CAP TAKE ONE CAPSULE BY ACTIVE MOUTH EVERY DAY Review of Systems: Constitutional/endo reviewed with pertinents as above Physical Exam: Vital Signs Temp: 97.4 F [36.3 C] (07/11/2023 09:58) B/P: 104/71 (07/11/2023 09:58) Pulse: 97 (07/11/2023 09:58) Ht: 68 in [172.7 cm] (02/25/2023 09:35) Wt: 184.3 lb [83.60 kg] (07/11/2023 09:58) Pain: 4 (07/11/2023 09:58) BMI: 28.1 General: NAD, alert, interactive HEENT: NCAT, eomi, no scleral icterus or proptosis Labs: 02/13/2023 15:07 WBC BLOOD 7.60 K/cmm 4.0 11.0 Automated Differential Performed... [+] 02/13/2023 15:07 UREA NITROGEN PLASMA 16 mg/dL 8 26 02/13/2023 15:07 SODIUM PLASMA 144 mmol/L 136 145 02/13/2023 15:07 RDW BLOOD 16.1 H % 11.5 14.5 Automated Differential Performed... [+] 02/13/2023 15:07 RBC BLOOD 4.50 L M/cmm 4.6 6.2 Automated Differential Performed... [+] 02/13/2023 15:07 POTASSIUM PLASMA 3.9 mmol/L 3.5 5.1 02/13/2023 15:07 PLT BLOOD 246 K/cmm 150 400 Automated Differential Performed... [+] 02/13/2023 15:07 NEUT BLOOD 58.9 % Automated Differential Performed... [+] 02/13/2023 15:07 MPV BLOOD 10.0 fL 7.4 10.4 Automated Differential Performed... [+] 02/13/2023 15:07 MONO BLOOD 8.9 % Automated Differential Performed... [+] 02/13/2023 15:07 MCV BLOOD 88.2 fL 80 100 Automated Differential Performed... [+] 02/13/2023 15:07 MCHC BLOOD 31.7 L g/dL 32.0 37.5 Automated Differential Performed... [+] 02/13/2023 15:07 MCH BLOOD 28.0 pg 27 33 Automated Differential Performed... [+] 02/13/2023 15:07 MAGNESIUM PLASMA 1.8 mg/dL 1.6 2.6 02/13/2023 15:07 LYMPHS BLOOD 28.8 % Automated Differential Performed... [+] 02/13/2023 15:07 IPF BLOOD 3.0 % 0 10 Automated Differential Performed... [+] 02/13/2023 15:07 IG(META,MYELO,PRO) BLOOD 0.3 % Automated Differential Performed... [+] 02/13/2023 15:07 HGB BLOOD 12.6 L g/dL 13.5 17.9 Automated Differential Performed... [+] 02/13/2023 15:07 HEMOGLOBIN A1C BLOOD 7.4 H % 4.0 6.0 Values obtained from A1C measurements can vary. For typical A1C... [+] 02/13/2023 15:07 HCT BLOOD 39.7 L % 41 54 Automated Differential Performed... [+] 02/13/2023 15:07 GLUCOSE PLASMA 129 H mg/dL 70 100 02/13/2023 15:07 EOSINO BLOOD 2.8 % Automated Differential Performed... [+] 02/13/2023 15:07 EGFRCKD PLASMA 57 L 60 02/13/2023 15:07 CREATININE PLASMA 1.3 H mg/dL 0.7 1.2 02/13/2023 15:07 CO2 PLASMA 32 H mmol/L 22 29 02/13/2023 15:07 CHLORIDE PLASMA 105 mmol/L 98 107 02/13/2023 15:07 CALCIUM PLASMA 9.1 mg/dL 8.4 10.2 02/13/2023 15:07 BASO BLOOD 0.3 % Automated Differential Performed... [+] 02/13/2023 15:07 ANION GAP PLASMA 7 mmol/L 5 15 02/13/2023 15:07 ALBUMIN PLASMA 3.8 g/dL 3.5 5.2 02/13/2023 15:07 ABS NEUT BLOOD 4.48 K/cmm 2.0 7.7 Automated Differential Performed... [+] 02/13/2023 15:07 ABS MONO BLOOD 0.68 K/cmm 0.1 1.0 Automated Differential Performed... [+] 02/13/2023 15:07 ABS LYMPH BLOOD 2.19 K/cmm 1.0 4.0 Automated Differential Performed... [+] 02/13/2023 15:07 ABS IMMATURE GRAN BLOOD 0.02 K/UL 0 0.1 Automated Differential Performed... [+] 02/13/2023 15:07 ABS EOS BLOOD 0.21 K/cmm 0 0.5 Automated Differential Performed... [+] 02/13/2023 15:07 ABS BASO BLOOD 0.02 K/cmm 0 0.2 Automated Differential Performed... [+] Assessment and Plan: # Morbid Obesity (BMI 28 with treatment) # T2DM - controlled # s/p Nora-en-y bypass w/ low iron prior, need to reassess PLAN: -labs today # osteoporosis screen (done 12/18) Familial history of osteoporosis. he had reported height decrease from 5'10 to 5'8. No fracture history. Takes calcium --had nl DXA --will follow RTC October 2023 with labs then Time spent 30 minutes /aneesh ALVAREZ MD PHYSICIAN Signed: 07/15/2023 11:19 07/18/2023 ADDENDUM STATUS: COMPLETED lab results letter sent to pt--will alert Timothy Munoz here by way of co-sign to please review that with him and review the nutritional supplement doses he is currently taking as well as recommendations for adjustments. thanks for your input. /pablo/ ISAEL ALVAREZ MD PHYSICIAN Signed: 07/18/2023 20:23 Receipt Acknowledged By: 07/24/2023 09:09 /pablo/ MILY CACERES [address], NIKKI MOVE! Dietitian for TIMOTHY MUNOZ 07/24/2023 ADDENDUM STATUS: COMPLETED Attempted to reach to discuss iron supplementation. Left voicemail with call back number. /pablo/ NIKKI NAVA RD MOVE! Dietitian Signed: 07/24/2023 15:37 ISAEL ALVAREZ [facility] Jul 11, 2023 09:59 AM INTERNAL MEDICINE OUTPATIENT NOTE: LOCAL TITLE: MEDICINE CLINIC NURSING NOTE STANDARD TITLE: INTERNAL MEDICINE OUTPATIENT NOTE DATE OF NOTE: JUL 11, 2023@09:59 ENTRY DATE: JUL 11, 2023@09:59:25 AUTHOR: NATHALIE MCCLELLAN EXP COSIGNER: URGENCY: STATUS: COMPLETED TYPE OF VISIT: Appointment Check In Type of appointment: In-person appointment REASON FOR VISIT: Scheduled clinic visit ALLERGIES: SULFAMETHOXAZOLE (Feb 07, 2022) EMPAGLIFLOZIN (Jun 06, 2022) VITAL SIGNS: Blood Pressure: 104/71 (07/11/2023 09:58) Pulse: 97 (07/11/2023 09:58) Respiration: 16 (07/11/2023 09:58) Temperature: 97.4 F [36.3 C] (07/11/2023 09:58) Weight: 184.3 lb [83.60 kg] (07/11/2023 09:58) Height: 68 in [172.7 cm] (02/25/2023 09:35) BMI: 28.1 O2 Sat: 99% (07/11/2023 09:58) Pain: 4 (07/11/2023 09:58) PAIN SCREEN: Patient is not having significant pain that they wish to discuss with their provider today. MEDICATION Over the Counter/Herbal Medications: The patient denies taking any outside medications or herbals. Diabetes/Metabolic Clinic Glucometer: Huslia did not bring glucometer to appointment /pablo/ NATHALIE MCCLELLAN LPN Licensed Practical Nurse Signed: 07/11/2023 10:00 NATHALIE MCCLELLAN [facility]
--- OUTSIDE RECORDS SUMMARY | 2023-08-13 12:39 | XMS_ITS | Encounter Summary ---
Author Name [employer] [facility] [employer] Organization [facility] Address [address] [place] [address] Support Name Relationship Address Phone SIRIA THOMPSON Next of Kin [address] [place], [place] [phone] SIRIA THOMPSON Emergency Contact [address] [place] [phone] NATHALIE DING Emergency Contact Unknown Insurance Providers: [...] PART A Sep 26, 2012 PART A [id number] [facility] [phone] JUAN THOMPSON JR PATIENT MEDICARE (WNR) MEDICARE (M) PART B Sep 26, 2012 PART B [id number] [phone] JUAN THOMPSON JR PATIENT Selected Encounter This section includes the information on record at [place] for the Encounter. Date/Time Encounter Type Encounter Description Reason Provider Source Jun 17, 2023 08:30 AM SELF CARE MNGMENT TRAINING OCCUPATIONAL THERAPY ICD-10-CM F03.A4 Unspecified dementia, mild, with anxiety MARQUITA COOK Baldo Encounter Template Text not used by [place] Assessments - Encounter Diagnoses This section includes the primary and secondary diagnoses documented for the Encounter. Date/Time Primary/Secondary Diagnosis Diagnosis Name Provider Source Jun 17, 2023 09:27 AM PRIMARY Unspecified dementia, mild, with anxiety DEB COOK [facility] Plan of Treatment: Future Appointments (+ 6 months) and Future Tests (+/- 45 days) The Plan of Treatment section includes future care activities for the patient from all [place] [facility] This section includes future appointments and future orders which are active, pending or scheduled. Future Appointments This section includes appointments that were scheduled to occur 6 months from the date of the Encounter, up to a maximum of 20 appointments. The data comes from all [facility]. Appointment Date/Time Appointment Type Appointme nt Facility Name Jun 21, 2023 05:10 PM AMBULATORY - REHAB MEDICIN E [facility] Jul 11, 2023 10:00 AM AMBULATORY - MEDICINE [facility] Jul 11, 2023 11:15 AM AMBULATORY MEDICINE [facility] Aug 21, 2023 10:30 AM AMBULATORY - PSYCHIATRY [facility] Nov 07, 2023 09:30 AM AMBULATORY MEDICINE [facility] Nov 07, 2023 10:30 AM AMBULATORY MEDICINE [facility] Active, Pending, and Scheduled Orders This section includes a listing of several types of active, pending, and scheduled orders, including clinic medications orders, diagnostic test orders, procedure orders and consult orders; where the start date of the order is 45 days before the date of the Encounter or 45 days after the date of theEncounter. The data comes from all [facility]. Test Date/Time Test Type Test Details Facility Name Jul 11, 2023 12:00 AM Laboratory - Chemi stry Order VITAMIN A SERUM [facility] Jul 11, 2023 12:00 AM Laboratory - Chemi stry Order HEMOGLOBIN A1C BLOOD [facility] Lab Results: +/- 30 days [...] Range Comment Jul 11, 2023 10:38 AM [facility] BASIC METABOLIC PANEL+MG Specimen Type: PLASMA No comment entered. Ordering Provider: ISAEL ALVAREZ Report Released Date/Time: Jul 11, 2023 10:23 AM Reporting Lab: [facility] [id number] Performing Lab: [facility] [address] CREATININE 1.2 0.7-1.2 UREA NITROGEN 22 8-26 GLUCOSE 193 H 70-100 SODIUM 143 136-145 POTASSIUM 3.7 3.5-5.1 CHLORIDE 108 H 98-107 CO2 28 22-29 CALCIUM 9.2 8.4-10.2 MAGNESIUM 1.8 1.6-2.6 ANION GAP 7 5-15 .CREAT EGFR(CKD-EPI ) 63 >60 Jul 11, 2023 10:37 AM [facility] VITAMIN B-1,BLOOD Specimen Type: BLOOD Comment: Vitamin supplementation within 24 hours prior to blood draw may affect the accuracy of the results. This test was developed and its analytical performance characteristics have been determined by [employer] [place], [place]. It has not been cleared or approved by the U.S. Food and Drug Administration. This assay has been validated pursuant to the CLIA regulations and is used for clinical purposes. Test Performed by [facility] [employer] [place], [address] [place] [address] Devante Meyer M.D., Ph.D., Director of Laboratories , CLIA [id number] Ordering Provider: ISAEL ALVAREZ Report Released Date/Time: Jul 11, 2023 10:23 AM Reporting Lab: [facility] [phone] Performing Lab: [address] VITAMIN B-1,BLOOD 132 78-185 Jul 11, 2023 10:37 AM [facility] VITAMIN A Specimen Type: SERUM Comment: Vitamin supplementation within 24 hours prior to blood draw may affect the accuracy of the results. This test was developed and its analytical performance characteristics have been determined by [employer] [place]. It has not been cleared or approved by the U.S. Food and Drug Administration. This assay has been validated pursuant to the CLIA regulations and is used for clinical purposes. Test Performed by [facility] [employer], [address] [place] [address] Devante Meyer M.D., Ph.D., Director of Laboratories , CLIA [id number] Ordering Provider: ISAEL ALVAREZ Report Released Date/Time: Jul 11, 2023 10:23 AM Reporting Lab: [facility] [phone] Performing Lab: [address] VITAMIN A 53 38-98 Jul 11, 2023 10:37 AM [facility] COPPER Specimen Type: PLASMA Comment: This test was developed and its analytical performance characteristics have been determined by [employer] [place], [place]. It has not been cleared or approved by the U.S. Food and Drug Administration. This assay has been validated pursuant to the CLIA regulations and is used for clinical purposes. Test Performed by [facility] [employer] [place], [address] [place] [address] Devante Meyer M.D., Ph.D., Director of Laboratories , CLIA [id number] Ordering Provider: ISAEL ALVAREZ Report Released Date/Time: Jul 11, 2023 10:23 AM Reporting Lab: [facility] [phone] Performing Lab: [address] COPPER 81 70-175 Jul 11, 2023 10:37 AM [facility] ZINC Specimen Type: SERUM Comment: This test was developed and its analytical performance characteristics have been determined by [employer] [place], [place]. It has not been cleared or approved by the U.S. Food and Drug Administration. This assay has been validated pursuant to the CLIA regulations and is used for clinical purposes. Test Performed by [facility] [employer] [place], [address] [place] [address] Devante Meyer M.D., Ph.D., Director of Laboratories , CLIA [id number] Ordering Provider: ISAEL ALVAREZ Report Released Date/Time: Jul 11, 2023 10:23 AM Reporting Lab: [facility] [phone] Performing Lab: [address] [address] ZINC 78 60-130 Jul 11, 2023 10:37 AM [facility] HEMOGLOBIN A1C Specimen Type: BLOOD [...] Jul 11, 2023 10:23 AM Reporting Lab: [facility] [phone] Performing Lab: [facility] [address] HEMOGLOBIN A1C 6.5 H 4.0-6.0 Jul 11, 2023 10:37 AM [facility] FERRITIN Specimen Type: SERUM No comment entered. Ordering Provider: ISAEL ALVAREZ Report Released Date/Time: Jul 11, 2023 10:23 AM Reporting Lab: [facility] [address] Performing Lab: [facility] [address] FERRITIN 66.0 21.8-274.7 Jul 11, 2023 10:37 AM [facility] LIPID PANEL,NON-FASTING Specimen Type: PLASMA Comment: Values [...] Jul 11, 2023 10:23 AM Reporting Lab: [facility] [phone] Performing Lab: [facility] Jul 11, 2023 10:37 AM [facility] PRE-ALBUMIN Specimen Type: SERUM No comment entered. Ordering Provider: ISAEL ALVAREZ Report Released Date/Time: Jul 11, 2023 10:23 AM Reporting Lab: [facility] [address] Performing Lab: [facility] [phone] PRE-ALBUMIN 22.5 14.0-45.0 Jul 11, 2023 10:37 AM [facility] B 12 Specimen Type: PLASMA No comment entered. Ordering Provider: ISAEL ALVAREZ Report Released Date/Time: Jul 11, 2023 10:23 AM Reporting Lab: [facility] [address] Performing Lab: [facility] [address] B 12 1016 H 213-816 Jul 11, 2023 10:37 AM [facility] FOLATE Specimen Type: SERUM No comment entered. Ordering Provider: ISAEL ALVAREZ Report Released Date/Time: Jul 11, 2023 10:23 AM Reporting Lab: [facility] [address] Performing Lab: [place] [phone] FOLATE 17.8 >7.0 Jul 11, 2023 10:37 AM [facility] CBC Specimen Type: BLOOD No comment entered. Ordering Provider: ISAEL ALVAREZ Report Released Date/Time: Jul 11, 2023 10:23 AM Reporting Lab: [facility] [address] Performing Lab: [facility] [address] WBC 7.56 4.0-11.0 RBC 4.25 L 4.6-6.2 HGB 12.5 L 13.5-17.9 HCT 39.1 L 41-54 MCV 92.0 80-100 MCH 29.4 27-33 MCHC 32.0 32.0-37.5 PLT 249 150-400 MPV 9.8 7.4-10.4 RDW 14.6 H 11.5-14.5 Jul 11, 2023 10:37 AM [facility] IRON GROUP Specimen Type: SERUM Comment: Values [...] Jul 11, 2023 10:23 AM Reporting Lab: [facility] [phone] Performing Lab: [facility] Jul 11, 2023 10:37 AM [facility] VIT D 25-OH,TOTAL Specimen Type: SERUM No comment entered. Ordering Provider: ISAEL ALVAREZ Report Released Date/Time: Jul 11, 2023 10:23 AM Reporting Lab: [facility] [address] Performing Lab: [facility] [address] VIT D 25-OH,TOTAL 68 H 12-50 Jul 11, 2023 10:37 AM [facility] CALCIUM Specimen Type: PLASMA No comment entered. Ordering Provider: ISAEL ALVAREZ Report Released Date/Time: Jul 11, 2023 10:23 AM Reporting Lab: [facility] [address] Performing Lab: [facility] [address] CALCIUM 9.2 8.4-10.2 Jul 11, 2023 10:37 AM [facility] PTH-N-TACT Specimen Type: SERUM No comment entered. Ordering Provider: ISAEL ALVAREZ Report Released Date/Time: Jul 11, 2023 10:23 AM Reporting Lab: [facility] [address] Performing Lab: [facility] [address] PTH-N-TACT 30.3 8.7-77.1 Jul 11, 2023 10:37 AM [facility] MAGNESIUM Specimen Type: PLASMA No comment entered. Ordering Provider: ISAEL ALVAREZ Report Released Date/Time: Jul 11, 2023 10:23 AM Reporting Lab: [facility] [address] Performing Lab: [facility] [address] MAGNESIUM 1.7 1.6-2.6 Social History: Smoking Status (Most current) and [...] 15, 2022 09:00 AM [place]-TOBACCO FORMER USER [facility] Tobacco Use History This section includes a history of the smoking, or tobacco-related health factors, that were collected on or before the date of the Encounter. The data comes from the [place] facility where the Encounter took place. Date/Time Smoking Status/Tobacco Use Comment F acility Aug 15, 2022 09:00 AM VA-TOBACCO QUIT 15 YRS OR MORE [facility] Aug 21, 2021 01:00 PM VA-TOBACCO FORMER USER [facility] Aug 21, 2021 01:00 PM VA-TOBACCO QUIT 15 YRS OR MORE [facility] Jul 09, 2018 08:58 AM VA-TOBACCO FORMER USER [facility] Jul 09, 2018 08:58 AM VA-TOBACCO QUIT 15 YRS OR MORE [facility] Jul 18, 2017 09:58 AM FORMER TOBACCO USER 7Y OR GREATE R [facility] Aug 14, 2016 10:59 AM FORMER TOBACCO USER 7Y OR GREATE R [facility] Jun 29, 2015 02:03 PM FORMER TOBACCO USER 7Y OR GREATE R [facility] Jan 06, 2014 03:04 PM FORMER TOBACCO USER 7Y OR GREATE R [facility] Jan 04, 2012 08:36 AM FORMER TOBACCO USER 7Y OR GREATE R [facility] Encounter Notes: All associated encounter notes This section contains the clinical notes associated to the Encounter. Date/Time Encounter Note(s) Provider Source Jun 17, 2023 07:48 AM OCCUPATIONAL THERA PY CONSULT: [facility] TITLE: OCCUPATIONAL THERAPY CONSULT STANDARD TITLE: OCCUPATIONAL THERAPY CONSULT DATE OF NOTE: JUN 17, 2023@07:48 ENTRY DATE: JUN 17, 2023@07:48:34 AUTHOR: DEB COOK EXP COSIGNER: URGENCY: STATUS: COMPLETED OCCUPATIONAL THERAPY EQUIPMENT CONSULT Ordering provider: MARIUSZ PHILLIPS Consult request: OCCUPATIONAL THERAPY OPT OT EQUIPMENT CONSULT Diagnosis: Unspecified dementia, mild, with anxiety(ICD-10-CM F03.A4) Encounter: 15 min low complexity evaluation 15 min self care Subjective: Vet reports he needs a shower bench for his new walk in shower, he moved [facility] apartments Assessment/recommendations: Vet seen via clinic today to discuss adaptive equipment to increase safety and independence for showering and shower transfer. Vet recieves assist to shower and would benefit from a chair for fall prevention. Identified the following barriers: -Impaired cognition -Lives alone -Generalized weakness -Hx of falls -Hx of seizures Vet will benefit from adaptive equipment to increase safety and functional independence and was provided education on features and benefits of equipment. Vet will benefit from the following adaptive equipment that was ordered at this date: -Shower bench CURRENT MEDICAL HISTORY: Essential hypertension ([facility] [id number]) Major depressive disorder ([facility] [id number]) Generalized anxiety disorder ([facility] [id number] Obesity (ICD-9-CM 278.00) Bronchiectasis ([facility] [id number]) Gastroesophageal reflux disease ([facility] [id number]) Bariatric Surgery Status (ICD-9-CM V45.8Cataracts ([facility] [id number]) Hypermetropia/Hyperopia (ICD-9-CM 367.0)Astigmatism, Unspec (ICD-9-CM 367.20) Presbyopia (ICD-9-CM 367.4) Atrial fibrillation ([facility] 10990508) Varicose veins of lower extremity (SCT 7Compulsive gambling ([facility] [id number]) Bipolar disorder ([facility] 96892918) Mild cognitive disorder ([facility] [id number]) Type 2 diabetes mellitus ([facility] 37114024) Long-term current use of anticoagulant ([facility] [id number]) Gastritis ([facility] 9094645) Dementia ([facility] 12457666) CONTEXT SOCIAL HISTORY/HOME ENVIRONMENT: Lives: Alone Primary Support System: Home health aide for help with showering [employer] Lives in: [facility] Home accessibility comments: - 0 steps to enter - Lives on 1st floor Bathroom: Walk-in shower w/ bars - Toilet with grab bars PRIOR LEVEL OF FUNCTION: Activities of Daily Living (ADLs)/IADLs: - Vet reports dependent for showering Falls in the last 6 months: 2-3, used falls alert device IADLs: Cooking: I, Ind grocery shopping Cleaning: [employer] Laundry: [employer] Driving: Shuttle bus Medication management: SetupA with automatic dispenser manager wealth management: Insurance Biller Pay Funtional mobility: No AD today, reports he forgot 4WW COGNITION: - Orientation: Oriented to self, place and situation, not oreinted to time, vet late to appt and forgot about his 8:30 appt - Attention span: Attended to full session without difficulty - Commands: Able to follow 1 step commands, requires cues - Communication: Able to make needs known - Safety Awareness: Appears intact, pt demonstrates insight to current limitations EMOTIONAL/BEHAVIORAL: Appropriate affect, Eye contact, Acknowledges others, Initiates/engages conversation, Calm/pleasant, Cooperative Education: Vet indicates readiness to learn, verbalizes understanding, agreement and satisfaction with the treatment plan. Denies further questions. PLAN: No other OT needs at this time. GOALS: 1.Vet will identify areas of concern in the home to assist with equipment selection in order to maximize safety and (I). MET OCCUPATIONAL THERAPY EVALUATION COMPLEXITY Identifying and reporting the complexity level of an evaluation focuses on the first three of these factors--profile and history, assessment and determination of deficits, and clinical decision making. These three factors must be scored and defensible documentation written to support the choice of a level. (Information taken from: https://www.aota.org) PROFILE AND HISTORY (including chart view) Brief history of medical and/or therapy records relating to the presenting problem (low complexity) ASSESSMENT & PERFORMANCE DEFICITS (select all that apply): Physical & Cognition 1-3 performance deficits (Low complexity) LEVEL OF CLINICAL DECISION MAKING Problem-focused assessment(s), consideration of a limited number of treatment options, presents with no comorbidities and modification of tasks or assistance is not necessary.(Low complexity) LOW COMPLEXITY Brief history of medical/or therapy records relating to the presenting problem. An assessment(s) that identifies 1-3 performance deficits that result in activity limitation and/or participating restrictions. Includes analysis of the occupational profile, analysis of date from problem- focused assessment(s), and consideration of a limited number of treatment options. Patient presents with no comorbidities that affect occupational performance. Modification of tasks or assistance with assessment(s) is not necessary to enable completion of evaluation component. /es/ DEB COOK Occupational Therapist Signed: 06/17/2023 09:27 DEB COOK [facility]
--- OUTSIDE RECORDS SUMMARY | 2023-08-13 12:39 | XMS_ITS | Encounter Summary ---
Author Name Department of Vetera Affairs Organization [facility] Affairs Address [address] [place] [address] Support Name Relationship Address Phone SIRIA THOMPSON Next of Kin [address] [place], [place] [id number] SIRIA THOMPSON Emergency Contact [address] [place] [phone] NATHALIE DING Emergency Contact Unknown Insurance Providers: [...] PART A Sep 26, 2012 PART A [id number] [facility] [phone] JUAN THOMPSON JR PATIENT MEDICARE (WNR) MEDICARE (M) PART B Sep 26, 2012 PART B [id number] [phone] JUAN THOMPSON JR PATIENT Selected Encounter This section includes the information on record at [place] for the Encounter. Date/Time Encounter Type Encounter Description Reason Pro vider Source Jun 04, 2023 01:06 PM Outpatient Encounter COMMUNITY CARE CONSULT IHE Encounter Template Text not used by [place] [...] appointments. The data comes from all [facility]. Appointment Date/Time Appointment Type Appointme nt Facility Name Jun 17, 2023 08:30 AM AMBULATORY - REHAB MEDICIN E [facility] Jun 21, 2023 05:10 PM AMBULATORY - REHAB MEDICIN E [facility] Jul 11, 2023 10:00 AM AMBULATORY - MEDICINE [facility] Jul 11, 2023 11:15 AM AMBULATORY - MEDICINE [facility] Aug 21, 2023 10:30 AM AMBULATORY - PSYCHIATRY [facility] Nov 07, 2023 09:30 AM AMBULATORY - MEDICINE [facility] Nov 07, 2023 10:30 AM AMBULATORY MEDICINE [facility] Active, Pending, and Scheduled [...] theEncounter. The data comes from all [facility]. Test Date/Time Test Type Test Details Facility Name Jul 11, 2023 12:00 AM Laboratory - Chemi stry Order VITAMIN A SERUM [facility] Jul 11, 2023 12:00 AM Laboratory - Chemi stry Order HEMOGLOBIN A1C BLOOD [facility] Social History: Smoking Status (Most current) and Tobacco Use (All prior to encounter date) This section includes the most current, and the historical, smoking and tobacco- related health factors from the [place] facility where the Encounter took place. Current Smoking Status This section includes the most current smoking, or tobacco-related health factor, from the [place] facility where the Encounter took place. Date/Time Current Smoking Status Comment Facil ity Aug 15, 2022 09:00 AM [place]-TOBACCO FORMER USER [facility] Tobacco Use History This section includes a history of the smoking, or tobacco-related health factors, that were collected on or before the date of the Encounter. The data comes from the [place] facility where the Encounter took place. Date/Time Smoking Status/Tobacco Use Comment F acility Aug 15, 2022 09:00 AM [place]-TOBACCO QUIT 15 YRS OR MORE [facility] Aug 21, 2021 01:00 PM VA-TOBACCO FORMER USER [facility] Aug 21, 2021 01:00 PM VA-TOBACCO QUIT 15 YRS OR MORE [facility] Jul 09, 2018 08:58 AM VA-TOBACCO FORMER USER [facility] Jul 09, 2018 08:58 AM VA-TOBACCO QUIT 15 YRS OR MORE [facility] Jul 18, 2017 09:58 AM FORMER TOBACCO USER 7Y OR GREATE R [facility] Aug 14, 2016 10:59 AM FORMER TOBACCO USER 7Y OR GREATE R [facility] Jun 29, 2015 02:03 PM FORMER TOBACCO USER 7Y OR GREATE R [facility] Jan 06, 2014 03:04 PM FORMER TOBACCO USER 7Y OR GREATE R [facility] Jan 04, 2012 08:36 AM FORMER TOBACCO USER 7Y OR GREATE R [facility] Encounter Notes: All associated encounter notes This section contains the clinical notes associated to the Encounter. Date/Time Encounter Note(s) Provider Source Jun 04, 2023 01:06 PM NONVA NOTE: LOCAL TITLE: COMMUNITY CARE-CARE COORDINATION PLAN NOTE STANDARD TITLE: NONVA NOTE DATE OF NOTE: JUN 04, 2023@13:06 ENTRY DATE: JUN 04, 2023@13:06:19 AUTHOR: RENU SCHOFIELD EXP COSIGNER: URGENCY: STATUS: COMPLETED COMMUNITY CARE-CARE COORDINATION PLAN NOTE Has ADDENDA Received VM from ULYSSES Gomez at [facility] ([phone]). Patricia requesting a shower chair for as he is moving to a new apartment. 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 /pablo/ Brittani Hernandez RN Registered Nurse Signed: 06/04/2023 13:47 RENU SCHOFIELD [facility]
--- OUTSIDE RECORDS SUMMARY | 2023-08-13 12:40 | XMS_ITS | Encounter Summary ---
Author Name Department of Vetera Affairs Organization [facility] of Veter[facility] ns Affairs Address [address] [place] [address] Support Name Relationship Address Phone SIRIA THOMPSON Next of Kin [address] [place], [place] [phone] SIRIA THOMPSON Emergency Contact [address] [place] [phone] NATHALIE DING Emergency Contact Unknown Insurance Providers: [...] PART A Sep 26, 2012 PART A [id number] [facility] [phone] JUAN THOMPSON JR PATIENT MEDICARE (WNR) MEDICARE (M) PART B Sep 26, 2012 PART B [id number] [phone] JUAN THOMPSON JR PATIENT Selected Encounter This section includes the information on record at [place] for the Encounter. Date/Time Encounter Type Encounter Description Reason Pro vider Source Aug 09, 2023 03:55 PM Outpatient Encounter PRIMARY CARE/MEDICINE IHE Encounter [...] 21, 2023 10:30 AM AMBULATORY - PSYCHIATRY [facility] Nov 07, 2023 09:30 AM AMBULATORY - MEDICINE [facility] Nov 07, 2023 10:30 AM AMBULATORY - MEDICINE [facility] Active, Pending, and Scheduled Orders This section [...] - Chemi stry Order VITAMIN A SERUM [facility] Jul 11, 2023 12:00 AM Laboratory - Chemi stry Order HEMOGLOBIN A1C BLOOD [facility] Aug 15, 2023 12:00 AM Laboratory - Chemi stry Order BASIC METABOLIC PANEL+MG PLASMA [facility] Aug 15, 2023 12:00 AM Laboratory - Chemi stry Order HEMOGLOBIN A1C BLOOD [facility] Aug 15, 2023 12:00 AM Laboratory - Chemi stry Order CBC BLOOD [facility] Lab Results: +/- 30 days of [...] Range Comment Jul 11, 2023 10:[address] [facility] BASIC METABOLIC PANEL+MG Specimen Type: PLASMA No comment entered. Ordering Provider: ISAEL ALVAREZ Report Released Date/Time: Jul 11, 2023 10:23 AM Reporting Lab: [facility] [id number] Performing Lab: [facility] [id number] CREATININE 1.2 0.7-1.2 UREA NITROGEN 22 8-26 GLUCOSE 193 H 70-100 SODIUM 143 136-145 POTASSIUM 3.7 3.5-5.1 CHLORIDE 108 H 98-107 CO2 28 22-29 CALCIUM 9.2 8.4-10.2 MAGNESIUM 1.8 1.6-2.6 ANION GAP 7 5-15 .CREAT EGFR(CKD-EPI ) 63 >60 Jul 11, 2023 10:[address] [facility] VITAMIN B-1,BLOOD Specimen Type: BLOOD Comment: Vitamin supplementation within 24 hours prior to blood draw may affect the accuracy of the results. This test was developed and its analytical performance characteristics have been determined by [facility] [place], [place]. It has not been cleared or approved by the U.S. Food and Drug Administration. This assay has been validated pursuant to the CLIA regulations and is used for clinical purposes. Test Performed by [facility] [email or web address] [place], [address] [place] [address] Devante Meyer M.D., Ph.D., Director of Laboratories , CLIA [id number] Ordering Provider: ISAEL ALVAREZ Report Released Date/Time: Jul 11, 2023 10:23 AM Reporting Lab: [facility] [phone] Performing Lab: [address] VITAMIN B-1,BLOOD 132 78-185 Jul 11, 2023 10:[address] [facility] VITAMIN A Specimen Type: SERUM Comment: Vitamin supplementation within 24 hours prior to blood draw may affect the accuracy of the results. This test was developed and its analytical performance characteristics have been determined by [email or web address] [place], [place]. It has not been cleared or approved by the U.S. Food and Drug Administration. This assay has been validated pursuant to the CLIA regulations and is used for clinical purposes. Test Performed by [facility], [facility], [address] [place] [address] Devante Meyer M.D., Ph.D., Director of Laboratories , CLIA [id number] Ordering Provider: ISAEL ALVAREZ Report Released Date/Time: Jul 11, 2023 10:23 AM Reporting Lab: [facility] [id number] Performing Lab: [address] [address] VITAMIN A 53 38-98 Jul 11, 2023 10:[address] [facility] ZINC Specimen Type: SERUM Comment: This test was developed and its analytical performance characteristics have been determined by [email or web address] [place], [place]. It has not been cleared or approved by the U.S. Food and Drug Administration. This assay has been validated pursuant to the CLIA regulations and is used for clinical purposes. Test Performed by [facility] [email or web address] [facility], [address] [place] [address] Devante Meyer M.D., Ph.D., Director of Laboratories , CLIA [id number] Ordering Provider: ISAEL ALVAREZ Report Released Date/Time: Jul 11, 2023 10:23 AM Reporting Lab: [facility] [address] Performing Lab: [address] ZINC 78 60-130 Jul 11, 2023 10:[address] [facility] COPPER Specimen Type: PLASMA Comment: This test was developed and its analytical performance characteristics have been determined by [email or web address] [place], [place]. It has not been cleared or approved by the U.S. Food and Drug Administration. This assay has been validated pursuant to the CLIA regulations and is used for clinical purposes. Test Performed by [facility] [email or web address] [facility], [address] [place] [address] Devante Meyer M.D., Ph.D., Director of Laboratories , CLIA [id number] Ordering Provider: ISAEL ALVAREZ Report Released Date/Time: Jul 11, 2023 10:23 AM Reporting Lab: [facility] [address] Performing Lab: [place] [address] COPPER 81 70-175 Jul 11, 2023 10:[address] [facility] HEMOGLOBIN A1C Specimen Type: BLOOD Comment: [...] Jul 11, 2023 10:23 AM Reporting Lab: [facility] [address] Performing Lab: [facility] [address] HEMOGLOBIN A1C 6.5 H 4.0-6.0 Jul 11, 2023 10:[address] [facility] FERRITIN Specimen Type: SERUM No comment entered. Ordering Provider: ISAEL ALVAREZ Report Released Date/Time: Jul 11, 2023 10:23 AM Reporting Lab: [facility] [address] Performing Lab: [facility] [address] FERRITIN 66.0 21.8-274.7 Jul 11, 2023 10:[address] [facility] LIPID PANEL,NON-FASTING Specimen Type: PLASMA Comment: [...] Jul 11, 2023 10:23 AM Reporting Lab: [facility] [address] Performing Lab: [facility] Jul 11, 2023 10:[address] [facility] PRE-ALBUMIN Specimen Type: SERUM No comment entered. Ordering Provider: ISAEL ALVAREZ Report Released Date/Time: Jul 11, 2023 10:23 AM Reporting Lab: [facility] [address] Performing Lab: [facility] [address] PRE-ALBUMIN 22.5 14.0-45.0 Jul 11, 2023 10:[address] [facility] B 12 Specimen Type: PLASMA No comment entered. Ordering Provider: ISAEL ALVAREZ Report Released Date/Time: Jul 11, 2023 10:23 AM Reporting Lab: [facility] [address] Performing Lab: [facility] [address] B 12 1016 H 213-816 Jul 11, 2023 10:[address] [facility] FOLATE Specimen Type: SERUM No comment entered. Ordering Provider: ISAEL ALVAREZ Report Released Date/Time: Jul 11, 2023 10:23 AM Reporting Lab: [facility] [address] Performing Lab: [facility] [address] FOLATE 17.8 >7.0 Jul 11, 2023 10:[address] [facility] VIT D 25-[place],TOTAL Specimen Type: SERUM No comment entered. Ordering Provider: ISAEL ALVAREZ Report Released Date/Time: Jul 11, 2023 10:23 AM Reporting Lab: [facility] [address] Performing Lab: [facility] [address] VIT D 25-OH,TOTAL 68 H 12-50 Jul 11, 2023 10:[address] [facility] CBC Specimen Type: BLOOD No comment entered. Ordering Provider: ISAEL ALVAREZ Report Released Date/Time: Jul 11, 2023 10:23 AM Reporting Lab: [facility] [address] Performing Lab: [facility] [address] WBC 7.56 4.0-11.0 RBC 4.25 L 4.6-6.2 HGB 12.5 L 13.5-17.9 HCT 39.1 L 41-54 MCV 92.0 80-100 MCH 29.4 27-33 MCHC 32.0 32.0-37.5 PLT 249 150-400 MPV 9.8 7.4-10.4 RDW 14.6 H 11.5-14.5 Jul 11, 2023 10:[address] [facility] IRON GROUP Specimen Type: SERUM Comment: [...] Jul 11, 2023 10:23 AM Reporting Lab: [facility] [address] Performing Lab: [facility] Jul 11, 2023 10:[address] [facility] CALCIUM Specimen Type: PLASMA No comment entered. Ordering Provider: ISAEL ALVAREZ Report Released Date/Time: Jul 11, 2023 10:23 AM Reporting Lab: [facility] [address] Performing Lab: [facility] [address] CALCIUM 9.2 8.4-10.2 Jul 11, 2023 10:[address] [facility] PTH-N-TACT Specimen Type: SERUM No comment entered. Ordering Provider: ISAEL ALVAREZ Report Released Date/Time: Jul 11, 2023 10:23 AM Reporting Lab: [facility] [address] Performing Lab: [facility] [address] PTH-N-TACT 30.3 8.7-77.1 Jul 11, 2023 10:[address] [facility] MAGNESIUM Specimen Type: PLASMA No comment entered. Ordering Provider: ISAEL ALVAREZ Report Released Date/Time: Jul 11, 2023 10:23 AM Reporting Lab: [facility] [address] Performing Lab: [facility] [address] MAGNESIUM 1.7 1.6-2.6 Social History: Smoking Status [...] 2022 09:00 AM VA-TOBACCO FORMER USER [facility] Tobacco Use History This section includes a history of the smoking, or tobacco-related health factors, that were collected on or before the date of the Encounter. The data comes from the [place] facility where the Encounter took place. Date/Time Smoking Status/Tobacco Use Comment [facility] Aug 15, 2022 09:00 AM VA-TOBACCO QUIT [address] [facility] Aug 21, 2021 01:00 PM VA-TOBACCO FORMER USER [facility] Aug 21, 2021 01:00 PM VA-TOBACCO QUIT [address] [facility] Jul 09, 2018 08:58 AM VA-TOBACCO FORMER USER [facility] Jul 09, 2018 08:58 AM VA-TOBACCO QUIT [address] [facility] Jul 18, 2017 09:58 AM FORMER TOBACCO USER 7Y OR GREATE R [facility] Aug 14, 2016 10:59 AM FORMER TOBACCO USER 7Y OR GREATE R [facility] Jun 29, 2015 02:03 PM FORMER TOBACCO USER 7Y OR GREATE R [facility] Jan 06, 2014 03:04 PM FORMER TOBACCO USER 7Y OR GREATE R [facility] Jan 04, 2012 08:36 AM FORMER TOBACCO USER 7Y OR GRE[address] R [facility] Encounter Notes: All associated encounter notes This section contains the clinical notes associated to the Encounter. Date/Time Encounter Note(s) Provider Source Aug 09, 2023 03:55 PM REPORT OF CONTACT: LOCAL TITLE: APPOINTMENT SCHEDULING NOTE STANDARD TITLE: REPORT OF CONTACT DATE OF NOTE: AUG 09, 2023@15:55 ENTRY DATE: AUG 09, 2023@15:55:31 AUTHOR: WILL INIGUEZ EXP COSIGNER: URGENCY: STATUS: COMPLETED Attempted to schedule Recall/Patient Center Scheduling (PtCSch) Contact attempt made to [facility] 1st attempt, 07/16/23 Letter - Sent letter by regular [place] mail to address on file: 2nd attempt Text message, 07/23/23 If [facility] calls back, schedule appt for: DOROTHY MORGANCT L RES 03 RTC +12M W/NF [id number] FED 08/15/22 Dispositioned: 08/09/23 /pablo/ Will Iniguez CP, BEBETO Rail Technician Signed: 08/09/2023 15:[address] [facility]
== END 2023-08-10 08:41 | disposition home or self-care (01) ==
LOC: AMB 08-13 12:10
PROVIDERS: PCP Family Medicine; Visit Provider Family Medicine
DX: S89.92XA Unspecified injury of left lower leg, initial encounter (principal); W18.30XA Fall on same level, unspecified, initial encounter; Y92.038 Other place in apartment as the place of occurrence of the external cause
CPT/HCPCS: A0998

== ENCOUNTER 2023-08-14 08:18 | Outpatient (CLI) | payer MEDICARE, MEDICAID, SELFPAY ==
--- OUTSIDE RECORDS SUMMARY | 2023-08-16 16:16 | XMS_ITS | Continuity of Care Document ---
Author Name [facility] Organization [facility] Care Team Providers Care Eight Section Blower Name Role Phone [facility] Unavailable Unavailable Problems Combined list of problems from Department of Defense and Veterans Affairs facilities. It does not include entries that were removed or entered in error. Problem Status Onset Date Problem Type Date of Resolution Comments Source Astigmatism, Unspec Active Condition [facility] Atrial fibrillation (SNOMED CT 56305013) Active Condition [facility] Bariatric Surgery Status (ICD-9-CM V45.86) Active Condition [facility] Bipolar disorder (SNOMED CT 99441589) Active Condition [facility] Bronchiectasis (SNOMED CT 31671467) Active Condition [facility] Cataracts (SNOMED CT 42101920) Active Condition [facility] Compulsive gambling Active Condition [facility] Dementia Active Condition [facility] Essential hypertension (SNOMED CT 77337554) Active Condition [facility] Gastritis Active Condition [facility] Gastroesophageal reflux disease (SNOMED CT 690684349) Active Condition [facility] Generalized anxiety disorder (SNOMED CT 21060357) Active Condition [facility] Hypermetropia/Hypero miguel Active Condition [facility] Long-term current use of anticoagulant Active Condition [facility] Major depressive disorder (SNOMED CT 168810913) Active Condition [facility] Mild cognitive disorder Active Condition [facility] Presbyopia Active Condition [facility] Primary Obesity (ICD-9-CM 278.00) [address] [facility] Type 2 diabetes mellitus Active Condition [facility] Varicose veins of lower extremity Active Condition [facility] Diagnosis: ICD-10-CM E66.[address] [facility] Diagnosis: ICD-10-CM F03.A4 Unspecified dementia, mild, with anxiety Active Diagnosis [facility] Diagnosis: ICD-10-CM F31.81 Bipolar II disorder Active Diagnosis [facility] Diagnosis: ICD-10-CM M16.11 Unilateral primary osteoarthritis, right hip Active Diagnosis [facility] Diagnosis: ICD-10-CM E11.8 Type 2 diabetes mellitus with unspecified complications Active Diagnosis [facility] Diagnosis: ICD-10-CM Z01.818 Encounter for other preprocedural examination Active Diagnosis [facility] Diagnosis: ICD-10-CM Z13.6 Encounter for screening for cardiovascular disorders Active Diagnosis [facility] Diagnosis: ICD-10-CM F03.A18 Unspecified dementia, mild, with other behavioral disturb Active Diagnosis [facility] Diagnosis: ICD-10-CM R13.12 Dysphagia, oropharyngeal phase Active Diagnosis [facility] Diagnosis: ICD-10-CM E11.69 Type 2 diabetes mellitus with other specified complication Active Diagnosis [facility] Diagnosis: ICD-10-CM E66.09 Other obesity due to excess calories Active Diagnosis [facility] Diagnosis: ICD-10-CM M17.0 Bilateral primary osteoarthritis of knee Active Diagnosis [facility] Diagnosis: ICD-10-CM I10 Essential (primary) hypertension Active Diagnosis [facility] Diagnosis: ICD-10-CM K44.9 Diaphragmatic hernia without obstruction or gangrene Active Diagnosis [facility] Diagnosis: ICD-10-CM 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 Medication Details Route Status Patient Instructions Prescription Expires Prescription Number Last Dispense Date Ordering Provider Order Date Source ACETAMINOPH EN 500MG TAB TAKE ONE TABLET BY MOUTH EVERY 6 HOURS NEEDED FOR PAIN ORALLY ACTIVE 08/16/2023 [id number] [facility] ALBUTEROL 90MCG/ACTUA T (CFC-F) INHL,ORAL,8 .5GM DOSE COUNTER INHALE 1-2 PUFFS BY INHALATI ON EVERY 4 HOURS NEEDED FOR IMMEDIAT E RELIEF OF SHORTNES S OF BREATH *SHAKE WELL* INHALA TION 10/05/2022 [id number] [address] [facility] APIXABAN 5MG TAB TAKE ONE TABLET BY MOUTH EVERY 12 HOURS TO PREVENT AND/OR TREAT BLOOD CLOTS ORALLY ACTIVE 10/13/2023 [id number] SUZIE MISSY Nancy [address] [facility] APIXABAN 5MG TAB TAKE ONE TABLET BY MOUTH EVERY 12 HOURS TO PREVENT AND/OR TREAT BLOOD CLOTS ORALLY DISCONT INUED 2022 [id number] RICHA SUE 2021 [facility] ARIPIPRAZOL E 20MG TAB TAKE ONE TABLET BY MOUTH EVERY DAY FOR BIPOLAR DISORDER DOSE INCREASE D 11-23-22 ORALLY ACTIVE 11/24/2023 [id number] 3 [facility] PUR[facility] ARIPIPRAZOL E 30MG TAB TAKE ONE-HALF TABLET BY MOUTH EVERY DAY ORALLY DISCONT INUED (EDIT) 01/27/2023 [id number] 3 USHA PURI 2021 [facility] ATORVASTATI N CA 10MG TAB TAKE ONE TABLET BY MOUTH AT BEDTIME ORALLY ACTIVE 09/21/2023 [id number] 3 MARIUSZ PHILLIPS 2022 [facility] ATORVASTATI N CA 20MG TAB TAKE ONE-HALF TABLET BY MOUTH AT BEDTIME ORALLY DISCONT INUED 10/05/2022 [id number] [facility] ATORVASTATI N CA 20MG TAB TAKE ONE-HALF TABLET BY MOUTH AT BEDTIME ORALLY DISCONT INUED (EDIT) 09/21/2023 [id number] 3 MARIUSZ PHILLIPS 2022 [facility] BUPROPION HCL 150MG 24HR TAB,SA TAKE ONE TABLET BY MOUTH EVERY MORNING ORALLY ACTIVE 11/24/2023 [id number] 4 USHA PURI 2022 [facility] BUPROPION HCL 150MG 24HR TAB,SA TAKE ONE TABLET BY MOUTH EVERY MORNING ORALLY DISCONT INUED 01/27/2023 [id number] [address] [facility] CALCIUM 200MG (CA CITRATE-950 MG) TAB TAKE TWO TABLETS BY MOUTH TWICE A DAY FOR CALCIUM SUPPLEME NT ORALLY ACTIVE 09/12/2023 [id number] 3 JOSEKAYLEIGHZULLYChristos Diego [address] [facility] CHOLECALCIF GABRIELA 25MCG (1,000UNIT) TAB TAKE ONE TABLET BY MOUTH EVERY DAY ORALLY ACTIVE 09/21/2023 [id number] 4 JACQUELINE, MARIUSZ Elba [address] [facility] CHOLECALCIF GABRIELA 25MCG (1,000UNIT) TAB TAKE ONE TABLET BY MOUTH EVERY DAY ORALLY DISCONT INUED 10/05/2022 [id number] [address] [facility] CYANOCOBALA MIN 1000MCG TAB TAKE ONE TABLET BY MOUTH EVERY DAY ORALLY ACTIVE 11/28/2023 [id number] [address] [facility] CYANOCOBALA MIN 1000MCG TAB TAKE ONE TABLET BY MOUTH EVERY DAY ORALLY DISCONT INUED 10/05/2022 [id number] [address] [facility] DICLOFENAC NA 1% GEL,TOP APPLY 4 GRAMS TOPICALL Y FOUR TIMES A DAY NEEDED TO AFFECTED AREA FOR PAIN. *USE DOSE CARD IN BOX TO MEASURE DOSE. MAX 32 GRAMS PER DAY. [place] 02/10/2023 [id number] [address] HARPRE[address]SON [address] [facility] FERROUS SO4 325MG TAB TAKE ONE TABLET BY MOUTH EVERY DAY IRON DEFICIEN CY ORALLY ACTIVE 11/07/2023 [id number] 3 ADE[address]CAID [address] [facility] INSULIN,GLA RGINE,HUMAN 100 UNIT/ML INJ,SOLOSTA R,3ML INJECT 14 UNITS UNDER THE SKIN EVERY DAY SUBCUT ANEOUS 06/07/2023 [id number] 3 INGRID BURLESON 2021 [facility] LIDOCAINE 5% PATCH APPLY 1 PATCH TOPICALL Y EVERY DAY FOR PAIN TOPICA LLY ACTIVE 08/16/2023 [id number] 4 KEITH CRANE 2022 [facility] MAGNESIUM OXIDE 400MG TAB TAKE TWO TABLETS BY MOUTH EVERY DAY FOR SUPPLEME NTATION ORALLY ACTIVE 06/17/2024 [id number] 3 LIZ TABOR,RACHEL 2022 [place] [facility] MAGNESIUM OXIDE 400MG TAB TAKE TWO TABLETS BY MOUTH EVERY DAY FOR SUPPLEME NTATION ORALLY DISCONT INUED 07/12/2023 [id number] INGRID BURLESON R 2021 [facility] METFORMIN HCL 500MG TAB TAKE ONE TABLET BY MOUTH EVERY DAY FOR DIABETES *NOTE:WH OLE TABLETS ORALLY ACTIVE 06/12/2024 [id number] 4 DONITAA ALTHEA A 2022 [facility] METFORMIN HCL 500MG TAB TAKE ONE TABLET BY MOUTH EVERY DAY FOR DIABETES *NOTE:WH OLE TABLETS ORALLY DISCONT INUED 05/02/2023 [id number] 3 MARRAFFA, ALTHEA A 2021 [facility] METOPROLOL SUCCINATE 50MG TAB,SA TAKE ONE TABLET BY MOUTH EVERY DAY FOR HEART AND BLOOD PRESSURE ORALLY ACTIVE 10/27/2023 [id number] 4 KEITH CRANE 2022 [facility] METOPROLOL SUCCINATE 50MG TAB,SA TAKE ONE TABLET BY MOUTH EVERY DAY FOR HEART AND BLOOD PRESSURE ORALLY DISCONT INUED 10/05/2022 [id number] 3 KEITH CRANE 2021 [place] [facility] MULTIVIT/OP HTH AREDS2/LUTE IN/ZEAXANTH IN CAP/TAB TAKE 1 CAP/TAB BY MOUTH TWICE A DAY WITH MEALS ORALLY ACTIVE 12/28/2023 [id number] 3 KEITH CRANE 2022 [place] [facility] MULTIVIT/OP HTH AREDS2/LUTE IN/ZEAXANTH IN CAP/TAB TAKE 1 CAP/TAB BY MOUTH TWICE A DAY WITH MEALS ORALLY DISCONT INUED 12/12/2022 [id number] KEITH CRANE 2021 [place] [facility] MULTIVITAMI NS CAP/TAB TAKE 1 TABLET BY MOUTH EVERY DAY ORALLY ACTIVE 2023 [id number] KEITH CRANE 2022 [place] [facility] MULTIVITAMI NS CAP/TAB TAKE 1 TABLET BY MOUTH EVERY DAY ORALLY 10/05/2022 [id number] KEITH CRANE 2021 [facility] OMEPRAZOLE 20MG CAP,EC TAKE ONE CAPSULE BY MOUTH EVERY MORNING AND TAKE TWO CAPSULES EVERY EVENING ON AN EMPTY STOMACH, AT LEAST 30 MINUTES PRIOR TO A MEAL FOR REFRACTO RY GERD ORALLY 07/12/2023 [id number] 3 INGRID BURLESON 2021 [facility] SEMAGLUTIDE 0.25MG/0.37 5ML INJ,SOLN,PE N,3ML INJECT 0.5MG UNDER THE SKIN EVERY WEEK DIABETES AND WEIGHT LOSS SUBCUT ANEOUS ACTIVE 11/08/2023 [id number] 4 ADELE KINCAID 2022 [place] [facility] SEMAGLUTIDE 0.25MG/0.37 5ML INJ,SOLN,PE N,3ML INJECT 0.25MG UNDER THE SKIN EVERY WEEK FOR 4 WEEKS, THEN INJECT 0.5MG EVERY WEEK DIABETES AND WEIGHT LOSS SUBCUT ANEOUS DISCONT INUED 11/08/2023 [id number] ADELE KINCAID 2022 [place] [facility] VENLAFAXINE HCL 150MG 24HR CAP,SA TAKE ONE CAPSULE BY MOUTH EVERY DAY ORALLY ACTIVE 11/24/2023 [id number] 4 USHA PURI 2022 [place] [facility] VENLAFAXINE HCL 150MG 24HR CAP,SA TAKE ONE CAPSULE BY MOUTH EVERY DAY ORALLY DISCONT INUED 01/27/2023 [id number] [address] [facility] Allergies, Adverse Reactions, Alerts Combined list of allergies from Department of Defense and Veterans Affairs facilities. It does not include entries that were removed or entered in error. Substance Category Reaction Severity Reaction type Status Date Reported Comments Source EMPAGLIFLOZI N Propensity to adverse reactions to drug (finding) Dizziness, Fatigue MILD active 2 [facility] SULFAMETHOXA ZOLE Propensity to adverse reactions to drug (finding) Acute renal impairment active 2 [facility] Immunizations Combined list of available immunizations from the Department of Defense and Veterans Affairs facilities. Immunization Series Date Given Administered By Site Reaction Lot Number CVX Code Drug Store Stock Associate Status Comments Source INFLUENZA VACCINE, QUADRIVALENT, ADJUVANTED 2022 SUSAN MEIER LEFT DELTO ID [id number] [address] [facility] ZOSTER RECOMBINANT [address] [facility] COVID-19 (MODERNA), MRNA, LNP-S, PF, 100 MCG/0.5ML DOSE OR 50 MCG/0.25ML DOSE [address] [facility] ZOSTER RECOMBINANT 1 [address] [facility] COVID-19 (MODERNA), MRNA, LNP-S, PF, 100 MCG/0.5ML DOSE OR 50 MCG/0.25ML DOSE 3 [address] [facility] INFLUENZA, HIGH DOSE SEASONAL [address] [facility] INFLUENZA, UNSPECIFIED FORMULATION [address] [facility] COVID-19 (MODERNA), MRNA, LNP-S, PF, 100 MCG/0.5 ML DOSE 1 [address] [facility] COVID-19 (MODERNA), MRNA, LNP-S, PF, 100 MCG/0.5ML DOSE OR 50 MCG/0.25ML DOSE [address] [facility] COVID-19 (MODERNA), MRNA, LNP-S, PF, 100 MCG/0.5 ML DOSE 1 [address] [facility] INFLUENZA, INJECTABLE, QUADRIVALENT, PRESERVATIVE FREE [address] [facility] ZOSTER RECOMBINANT 1 [address] [facility] INFLUENZA, SEASONAL, INJECTABLE, PRESERVATIVE FREE [address] [facility] INFLUENZA, HIGH DOSE SEASONAL [address] [facility] PNEUMOCOCCAL POLYSACCHARID E PPV23 2016 33 complet ed [facility], [id number], EX 01/01/2018 [facility] INFLUENZA, HIGH DOSE SEASONAL [address] [facility] PNEUMOCOCCAL CONJUGATE PCV 13 [address] [facility] INFLUENZA, HIGH DOSE SEASONAL [address] [facility] INFLUENZA, SEASONAL, INJECTABLE [address] [facility] INFLUENZA, SEASONAL, INJECTABLE [address] [facility] INFLUENZA, INJECTABLE, QUADRIVALENT [address] [facility] INFLUENZA, UNSPECIFIED FORMULATION [address] [facility] TDAP 2012 115 complet ed 2R45M/04/12 [facility] ZOSTER LIVE 2012 121 complet ed [id number] [facility] INFLUENZA, UNSPECIFIED FORMULATION [address] [facility] PNEUMOCOCCAL POLYSACCHARID E PPV23 [address] [facility] INFLUENZA, UNSPECIFIED FORMULATION [address] [facility] PNEUMOCOCCAL, UNSPECIFIED FORMULATION [address] [facility] INFLUENZA, SEASONAL, INJECTABLE, PRESERVATIVE FREE [address] [facility] TD(ADULT) UNSPECIFIED FORMULATION [address] [facility] INFLUENZA, SEASONAL, INJECTABLE [address] [facility] INFLUENZA, UNSPECIFIED FORMULATION [address] [facility] PNEUMOCOCCAL POLYSACCHARID E PPV23 [address] [facility] Results Combined list of recent chemistry, hematology [...] Jul 11, 2023 10:23 AM Reporting Lab: [facility] [address] Performing Lab: [facility] [phone] [place] [facility] BASIC METABOLIC PANEL+MG UREA NITROGEN [MASS/VOLUM E] IN SERUM OR PLASMA 22 8 - 26 07/11 Specimen Type: PLASMA No comment entered. Ordering Provider: JESSICA ALVAREZ Report Released Date/Time: Jul 11, 2023 10:23 AM Reporting Lab: [facility] [address] Performing Lab: [facility] [address] [place] [facility] BASIC METABOLIC PANEL+MG GLUCOSE [MASS/VOLUM E] IN SERUM OR PLASMA 193 70 - 100 07/11 H Specimen Type: PLASMA No comment entered. Ordering Provider: JESSICA ALVAREZ Report Released Date/Time: Jul 11, 2023 10:23 AM Reporting Lab: [facility] [address] Performing Lab: [facility] [address] [place] [facility] BASIC METABOLIC PANEL+MG SODIUM [MOLES/VOLU ME] IN SERUM OR PLASMA 143 136 - 145 07/11 Specimen Type: PLASMA No comment entered. Ordering Provider: JESSICA ALVAREZ Report Released Date/Time: Jul 11, 2023 10:23 AM Reporting Lab: [facility] [address] Performing Lab: [facility] [address] [place] [facility] BASIC METABOLIC PANEL+MG POTASSIUM [MOLES/VOLU ME] IN SERUM OR PLASMA 3.7 3.5 - 5.1 07/11 Specimen Type: PLASMA No comment entered. Ordering Provider: JESSICA ALVAREZ Report Released Date/Time: Jul 11, 2023 10:23 AM Reporting Lab: [facility] [address] Performing Lab: [facility] [address] [place] [facility] BASIC METABOLIC PANEL+MG CHLORIDE [MOLES/VOLU ME] IN SERUM OR PLASMA 108 98 - 107 07/11 H Specimen Type: PLASMA No comment entered. Ordering Provider: JESSICA ALVAREZ Report Released Date/Time: Jul 11, 2023 10:23 AM Reporting Lab: [facility] [address] Performing Lab: [facility] [address] [place] [facility] BASIC METABOLIC PANEL+MG CARBON DIOXIDE, TOTAL [MOLES/VOLU ME] IN SERUM OR PLASMA - 07/11 Specimen Type: PLASMA No comment entered. Ordering Provider: JESSICA ALVAREZ Report Released Date/Time: Jul 11, 2023 10:23 AM Reporting Lab: [facility] [address] Performing Lab: [facility] [address] [place] [facility] BASIC METABOLIC PANEL+MG CALCIUM [MASS/VOLUM E] IN SERUM OR PLASMA 9.2 8.4 - 10.2 07/11 Specimen Type: PLASMA No comment entered. Ordering Provider: JESSICA ALVAREZ Report Released Date/Time: Jul 11, 2023 10:23 AM Reporting Lab: [facility] [address] Performing Lab: [facility] [address] [place] [facility] BASIC METABOLIC PANEL+MG MAGNESIUM [MASS/VOLUM E] IN SERUM OR PLASMA 1.8 1.6 - 2.6 07/11 Specimen Type: PLASMA No comment entered. Ordering Provider: JESSICA ALVAREZ Report Released Date/Time: Jul 11, 2023 10:23 AM Reporting Lab: [facility] [address] Performing Lab: [facility] [address] [place] [facility] BASIC METABOLIC PANEL+MG ANION GAP IN SERUM OR PLASMA 7 5 - 15 07/11 Specimen Type: PLASMA No comment entered. Ordering Provider: JESSICA ALVAREZ Report Released Date/Time: Jul 11, 2023 10:23 AM Reporting Lab: [facility] [address] Performing Lab: [facility] [address] [facility] BASIC METABOLIC PANEL+MG GLOMERULAR FILTRATION RATE/1.73 SQ M.PREDICTED [VOLUME RATE/AREA] IN SERUM, PLASMA OR BLOOD BY CREATININE- BASED FORMULA (CKD-EPI 2020) 63 60 07/11 Specimen Type: PLASMA No comment entered. Ordering Provider: JESSICA ALVAREZ Report Released Date/Time: Jul 11, 2023 10:23 AM Reporting Lab: [facility] [address] Performing Lab: [facility] [address] [facility] VITAMIN B-1,BLOOD THIAMINE [MOLES/VOLU ME] IN BLOOD 132 78 - 185 07/11 Specimen Type: BLOOD Comment: Vitamin supplementa tion within 24 hours prior to blood draw may affect the accuracy of the results. This test was developed and its analytical performance characteris tics have been determined by [employer] [place], [place]. It has not been cleared or approved by the U.S. Food and Drug Administrat ion. This assay has been validated pursuant to the CLIA regulations and is used for clinical purposes. Test Performed by [facility], [facility], [address] [place] [address] Devante Meyer M.D., Ph.D., Director of Laboratorie s , CLIA [id number] Ordering Provider: JESSICA ALVAREZ Report Released Date/Time: Jul 11, 2023 10:23 AM Reporting Lab: [facility] [phone] Performing Lab: [address] [facility] VITAMIN A RETINOL [MASS/VOLUM E] IN SERUM OR PLASMA 53 38 - 98 07/11 Specimen Type: SERUM Comment: Vitamin supplementa tion within 24 hours prior to blood draw may affect the accuracy of the results. This test was developed and its analytical performance characteris tics have been determined by [employer] [place]. It has not been cleared or approved by the U.S. Food and Drug Administrat ion. This assay has been validated pursuant to the CLIA regulations and is used for clinical purposes. Test Performed by [facility], [employer] [place], [address] [place] [address] Devante Meyer M.D., Ph.D., Director of Laboratorie s , CLIA [id number] Ordering Provider: JESSICA ALVAREZ Report Released Date/Time: Jul 11, 2023 10:23 AM Reporting Lab: [facility] [address] Performing Lab: [address] [place] [facility] ZINC ZINC [MASS/VOLUM E] IN SERUM OR PLASMA 78 60 - 130 07/11 Specimen Type: SERUM Comment: This test was developed and its analytical performance characteris tics have been determined by [employer] [place], [place]. It has not been cleared or approved by the U.S. Food and Drug Administrat ion. This assay has been validated pursuant to the CLIA regulations and is used for clinical purposes. Test Performed by [facility] [place], [address] [place] [address] Devante Meyer M.D., Ph.D., Director of Laboratorie s , CLIA [id number] Ordering Provider: JESSICA ALVAREZ Report Released Date/Time: Jul 11, 2023 10:23 AM Reporting Lab: [facility] [address] Performing Lab: [address] [place] [facility] COPPER COPPER [MASS/VOLUM E] IN SERUM OR PLASMA 81 70 - 175 07/11 Specimen Type: PLASMA Comment: This test was developed and its analytical performance characteris tics have been determined by [employer] [place], [place]. It has not been cleared or approved by the U.S. Food and Drug Administrat ion. This assay has been validated pursuant to the CLIA regulations and is used for clinical purposes. Test Performed by [facility], [facility], [address] [place] [address] Devante Meyer M.D., Ph.D., Director of Laboratorie s , CLIA [id number] Ordering Provider: JESSICA ALVAREZ Report Released Date/Time: Jul 11, 2023 10:23 AM Reporting Lab: [facility] [address] Performing Lab: [facility] [address] [facility] [place] [facility] HEMOGLOBI N A1C HEMOGLOBIN A1C/HEMOGLO BIN.TOTAL [...] Jul 11, 2023 10:23 AM Reporting Lab: [facility] [address] Performing Lab: [facility] [address] [place] [facility] FERRITIN FERRITIN [MASS/VOLUM E] IN SERUM OR PLASMA 66.0 21.8 - 274.7 07/11 Specimen Type: SERUM No comment entered. Ordering Provider: JESSICA ALVAREZ Report Released Date/Time: Jul 11, 2023 10:23 AM Reporting Lab: [facility] [address] Performing Lab: [facility] [address] [place] [facility] PRE-ALBUM IN PREALBUMIN [MASS/VOLUM E] IN SERUM OR PLASMA 22.5 14.0 - 45.0 07/11 Specimen Type: SERUM No comment entered. Ordering Provider: JESSICA ALVAREZ Report Released Date/Time: Jul 11, 2023 10:23 AM Reporting Lab: [facility] [address] Performing Lab: [facility] [address] [place] [facility] B 12 COBALAMIN (VITAMIN B12) [MASS/VOLUM E] IN SERUM OR PLASMA 1016 213 - 145 07/11 H Specimen Type: PLASMA No comment entered. Ordering Provider: JESSICA ALVAREZ Report Released Date/Time: Jul 11, 2023 10:23 AM Reporting Lab: [facility] [address] Performing Lab: [facility] [address] [facility] Vital Signs Combined list of inpatient and outpatient Vital Signs from Department of Defense and Veterans Affairs, ranging from 12 months to all on record, depending upon the facility. Vital Sign Value Date Comments Source SYSTOLIC BLOOD PRESSURE 104 07/11/2023 09:58:04 [facility] DIASTOLIC BLOOD PRESSURE 71 07/11/2023 09:58:04 [facility] PULSE OXIMETRY 99% 07/11/2023 09:58:[address] [facility] WEIGHT 184.3 07/11/2023 09:58:04 [facility] BMI 28kg/m2 07/11/2023 09:58:04 [facility] PAIN 4 07/11/2023 09:58:04 [facility] TEMPERATURE 97.4 07/11/2023 09[place]58:04 [place] [facility] PULSE 97 07/11/2023 09:58:04 [facility] RESPIRATION 16 07/11/2023 09:58:04 [facility] SYSTOLIC BLOOD PRESSURE 118 02/25/2023 09:35:04 [facility] [facility] D[facility] B[facility] PRESSURE 77 02/25/2023 09:35:04 [facility] PULSE OXIMETRY 98% 02/25/2023 09:35:04 [facility] WEIGHT 207.2 02/25/2023 09:35:04 [facility] BMI 32kg/m2 02/25/2023 09:35:04 [facility] HEIGHT 68 02/25/2023 09:35:04 [facility] TEMPERATURE 98.5 02/25/2023 09:35:04 [facility] PULSE 77 02/25/2023 09:35:04 [facility] RESPIRATION 16 02/25/2023 09:35:04 [facility] SYSTOLIC BLOOD PRESSURE 126 11/06/2022 10:00:35 [facility] DIASTOLIC BLOOD PRESSURE 84 11/06/2022 10:00:35 [facility] PULSE OXIMETRY 98% 11/06/2022 10:00:35 [facility] 220 11[facility]06/2022 10:00:35 [facility] BMI 34kg/m2 11/06/2022 10:00:35 [facility] PAIN 0 11/06/2022 10:00:35 [facility] TEMPERATURE 99.7 11/06/2022 10:00:35 [facility] PULSE 88 11/06/2022 10:00:35 [facility] RESPIRATION 18 11/06/2022 10:00:35 [facility] SYSTOLIC BLOOD PRESSURE 166 09/11/2022 10:27:55 [facility] DIASTOLIC BLOOD PRESSURE 98 09/11/2022 10:27:55 [facility] PULSE OXIMETRY 97% 09/11/2022 10:27:55 [facility] WEIGHT 222.5 09/11/2022 10:27:55 [facility] BMI 34kg/m2 09/11/2022 10:27:55 [facility] TEMPERATURE 97.3 09/11/2022 10:27:55 [facility] PULSE 70 09/11/2022 10:27:55 [facility] RESPIRATION 18 09/11/2022 10:27:55 [facility] Encounters Combined list of: 1) Encounters from Department of Veterans Affairs facilities going back up to thelast 18 months. 2) Encounters from the Department of Defense facilities going back up to 280 months. Location Location Details Encounter Type Encounter Number Reason For Visit Attending Provider ADM Date DC Date Status Disposition Source FELIX SCHWARTZ [facility] OFFICE O/P EST HI 40-54 MIN [id number] Diagnos is: ICD-10- CM E11.8 Type 2 diabete s mellitu s with unspeci fied complic ations< br/> ADAN CHAUDHARI 04/11 [place] [facility] [place] [facility] Outpatient Encounter [id number] 04/13 [place] [facility] [place] [facility] Outpatient Encounter [id number] 04/13 [place] [facility] [place] [facility] Outpatient [facility]counter [id number] 04/18 [place] 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
ELVIS CHAVEZ 04/23 [place] [facility] Outpatient Encounter [id number] 04/25 [place] [facility] Outpatient Encounter [id number] Diagnos is: ICD-10- CM E11.8 Type 2 diabete s mellitu s with unspeci fied complic ations< br/> MONTSERRAT GARZA A 04/26 [place] [facility] [place] [facility] Outpatient Encounter [id number] 04/26 [place] [facility] Outpatient Encounter [id number] 04/26 [facility] OFF[facility] O/P EST MOD 30-39 MIN [id number] Diagnos is: ICD-10- CM F31.81 Bipolar II disorde r
Kayla PURI 04/30 [facility] MTMS BY PHARM ADDL 15 MIN [id number] Diagnos is: ICD-10- CM E11.8 Type 2 diabete s mellitu s with unspeci fied complic ations< br/> Bill MURPHY A 04/30 [place] [facility] [place] [facility] Outpatient Encounter [id number] 05/01 [place] [facility] [place] [facility] Outpatient Encounter [id number] 05/02 [place] [facility] [place] [facility] Outpatient Encounter [id number] 05/04 [place] 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
SARAH FORTUNE 05/08 [facility] [place] [facility] Outpatient Encounter [id number] 05/08 [facility] [place] [facility] Outpatient Encounter [id number] KIARRA BOOTHOS A 05/11 [facility] [place] [facility] Outpatient Encounter [id number] 05/16 [facility] [place] [facility] Outpatient Encounter [id number] 05/16 [facility] [place] [facility] Outpatient Encounter [id number] MAYO CRANE 05/18 [facility] OFF[facility] O/P EST SF 10-19 MIN [id number] Diagnos is: ICD-10- CM 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
SHAHAB LYLES MD 05/23 [facility] MTMS BY PHARM ADDL 15 MIN [id number] Diagnos is: ICD-10- CM E11.8 Type 2 diabete s mellitu s with unspeci fied complic ations< br/> Kayla BURLESON 06/06 [place] [facility] [place] [facility] OFF[place] O/P EST LOW 20-29 MIN [id number] Diagnos is: ICD-10- CM M16.11 Unilate ral primary osteoar thritis , right hip<br/ > SHALONDA SANTANA T 06/06 [place] [facility] [place] [facility] Outpatient Encounter [id number] 06/06 [place] [facility] [place] [facility] Outpatient Encounter [id number] 06/26 [place] [facility] [place] [facility] Outpatient Encounter [id number] 07/05 [facility] [place] [facility] MTMS BY PHARM ADDL 15 MIN [id number] Diagnos is: ICD-10- CM E11.8 Type 2 diabete s mellitu s with unspeci fied complic ations< br/> Kayla BURLESONOND R 07/11 [facility] [place] [facility] OFFICE O/P EST MOD 30-39 MIN [id number] Diagnos is: ICD-10- CM I10 Essenti al (primar y) hyperte nsion<b r/> ADAN CHAUDHARI NJSUGAR E 08/15 [place] [facility] [place] [facility] Outpatient Encounter [id number] 08/17 [place] [facility] [place] [facility] Outpatient Encounter [id number] 08/18 [place] [facility] [place] [facility] OFF[place] O/P EST MOD 30-39 MIN [id number] Diagnos is: ICD-10- CM F31.81 Bipolar II disorde r
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
SOFIA VARELA RAMIREZ D 08/28 [place] [facility] [place] [facility] Outpatient Encounter [id number] 08/29 [place] [facility] [place] [facility] Outpatient Encounter [id number] 08/31 [place] [facility] [place] [facility] Outpatient Encounter [id number] RA DARIA JAMESU 09/07 [place] [facility] [place] [facility] Outpatient Encounter [id number] 09/10 [place] [facility] [place] [facility] Outpatient [facility]counter [id number] 09/10 [place] [facility] OFF/OP CNSLTJ NEW/EST MOD 40 [id number] Diagnos is: ICD-10- CM E66.09 Other obesity due to excess calorie s
HARSH ALVAREZ D 09/11 [place] [facility] [place] [facility] Outpatient Encounter [id number] 09/25 [place] [facility] ORTHC/PROS TC MGMT SBSQ ENC [id number] Diagnos is: ICD-10- CM E11.69 Type 2 diabete s mellitu s with other specifi ed complic ation<b r/> ANCO,NICANOR S 09/28 [place] [facility] ORAL FUNCTION THERAPY [id number] Diagnos is: ICD-10- CM R13.12 Dysphag ia, orophar yngeal phase<b r/> LATRELL POOLE P 09/28 [place] [facility] [place] [facility] Outpatient Encounter [id number] MARYJO SCHOFIELD 10/08 [place] [facility] Outpatient Encounter [id number] 10/11 [place] [facility] [place] [facility] Outpatient Encounter [id number] 10/16 [place] [facility] [place] [facility] OFF[place] O/P EST MOD 30-39 MIN [id number] Diagnos is: ICD-10- CM E11.8 Type 2 diabete s mellitu s with unspeci fied complic ations< br/> JEN KINCAID AEL 11/06 [place] [facility] [place] [facility] Outpatient Encounter [id number] 11/11 [place] [facility] [place] [facility] OFF[place] O/P EST MOD 30-39 MIN [id number] Diagnos is: ICD-10- CM F31.81 Bipolar II disorde r
Kayla PURI 11/19 [facility] [place] [facility] Outpatient Encounter [id number] 11/19 [place] [facility] [place] [facility] Outpatient Encounter [id number] 12/14 [place] [facility] [place] [facility] Outpatient Encounter [id number] 12/17 [place] [facility] [place] [facility] Outpatient Encounter [id number] 12/28 [facility] [place] [facility] NRPSYC TST EVAL PHYS/[place] [id number] Diagnos is: ICD-10- CM F03.A18 Unspeci fied dementi a, mild, with other behavio ral disturb
JAMIE LYLES 12/31 [place] [facility] [place] [facility] Outpatient Encounter [id number] 01/04 [place] [facility] [place] [facility] Outpatient Encounter [id number] 01/16 [place] [facility] [place] [facility] NRPSYC TST EVAL PHYS/QHP 1ST [id number] Diagnos is: ICD-10- CM F03.A18 Unspeci fied dementi a, mild, with other behavio ral disturb
JAMIE LYLES N 01/17 [place] [facility] [place] [facility] Outpatient Encounter [id number] 01/24 [place] [facility] [place] [facility] Outpatient Encounter [id number] 01/29 [facility] [place] [facility] OFFICE O/P EST LOW 20-29 MIN [id number] Diagnos is: ICD-10- CM M16.11 Unilate ral primary osteoar thritis , right hip<br/ > SOFIA VARELA 02/13 [facility] [place] [facility] Outpatient Encounter [id number] 02/13 [facility] [place] [facility] Outpatient Encounter [id number] 02/13 [facility] [place] [facility] Outpatient Encounter [id number] 02/14 [facility] [place] [facility] Outpatient Encounter [id number] 02/20 [facility] [place] [facility] Outpatient Encounter [id number] 02/23 [facility] [place] [facility] ELECTROCAR DIOGRAM COMPLETE [id number] Diagnos is: ICD-10- CM Z13.6 Encount er for screeni ng for cardiov ascular disorde rs
Sabrina WILL O 02/25 [facility] [place] [facility] OFF[place] O/P EST MOD 30-39 MIN [id number] Diagnos is: ICD-10- CM Z01.818 Encount er for other preproc edural examina tion
RAFFI MG 02/25 [place] [facility] [place] [facility] Outpatient Encounter [id number] 02/25 [place] [facility] [place] [facility] Outpatient Encounter [id number] 02/28 [place] [facility] [place] [facility] Outpatient Encounter [id number] 03/05 [facility] [place] [facility] PRO PHONE CALL 11-20 MIN [id number] Diagnos is: ICD-10- CM E11.8 Type 2 diabete s mellitu s with unspeci fied complic ations< br/> LUCY WHITLOCK 03/07 [facility] [place] [facility] Outpatient Encounter [id number] 03/07 [facility] [place] [facility] Outpatient Encounter [id number] 03/13 [facility] [place] [facility] Outpatient Encounter [id number] 04/05 [facility] [place] [facility] OFFICE O/P EST LOW 20-29 MIN [id number] Diagnos is: ICD-10- CM M16.11 Unilate ral primary osteoar thritis , right hip<br/ > PATITO FIGUEROA 04/19 [facility] [place] [facility] Outpatient Encounter [id number] 05[facility]14 [facility] [place] [facility] Outpatient Encounter [id number] 05/14 [facility] [place] [facility] OFFICE O/P EST HI 40-54 MIN [id number] Diagnos is: ICD-10- CM F31.81 Bipolar II disorde r
Diego HONEYCUTT 05/20 [facility] Outpatient Encounter [id number] 06/04 [facility] SELF CARE MNGMENT TRAINING [id number] Diagnos is: ICD-10- CM F03.A4 Unspeci fied dementi a, mild, with anxiety
JAVIER COOKIN A 06/17 [facility] OFF[facility] O/P EST MOD 30-39 MIN [id number] Diagnos is: ICD-10- CM E66.3 Overwei ght<br/ > HARSH ALVAREZ 07/11 [facility] Outpatient Encounter [id number] 08/09 [facility] Outpatient Encounter [id number] 08/14 [facility] Social History Combined list of available smoking, tobacco, and other social history from Department of Defense and Veterans Affairs facilities. Social History Type Response Date Comment Sour e Tobacco smoking status NHIS [place]-TOBACCO FORMER USER 08/15/2022 [facility] History of tobacco use MT-TOBACCO QUIT 1 5 YRS OR MORE 08/15/2022 [facility] History of tobacco use MT-TOBACCO FORMER USER 08/21/2021 [facility] History of tobacco use MT-TOBACCO FORMER USER 07/09/2018 [facility] History of tobacco use FORMER TOBACCO US ER 7Y OR GREATER 07/18/2017 [facility] History of tobacco use FORMER TOBACCO US ER 7Y OR GREATER 08/14/2016 [facility] History of tobacco use FORMER TOBACCO US ER 7Y OR GREATER 06/29/2015 [facility] History of tobacco use FORMER TOBACCO US ER 7Y OR GREATER 01/06/2014 [facility] History of tobacco use FORMER TOBACCO US ER 7Y OR GREATER 01/04/2012 [facility] Plan of Care List of future care activities from Department of Veterans Affairs facilities. Additional future care activities may be listed in the Assessment and Plan section. Date/Time Care Activity Care Activity Detail Facili ty 08/21/2023 AMBULATORY - PSYCHIATRY [facility]
--- OUTSIDE RECORDS SUMMARY | 2023-08-16 16:27 | XMS_ITS | Encounter Summary ---
Author Name [facility] Organization [facility] Address [address] [place] [address] Support Name Relationship Address Phone SIRIA THOMPSON Next of Kin [address] [place], [place] [phone] SIRIA THOMPSON Emergency Contact [address] [place] [phone] NATHALIE DING Emergency Contact Unknown [phone] Insurance Providers: All historical and current Section [...] PART A Sep 26, 2012 PART A [id number] [facility] [phone] JUAN THOMPSON JR PATIENT MEDICARE (WNR) MEDICARE (M) PART B Sep 26, 2012 PART B [id number] [phone] JUAN THOMPSON JR PATIENT Selected Encounter This section includes the information on record at [facility] for the Encounter. Date/Time Encounter Type Encounter Description Reason Pro vider Source Aug 14, 2023 12:03 PM Outpatient Encounter PRIMARY CARE/MEDICINE IHE Encounter Template Text not used by [facility] Plan of Treatment: Future Appointments (+ 6 months) and Future Tests (+/- 45 days) The Plan of Treatment section includes future care activities for the patient from all [facility] treatmentfacilities. This section includes future appointments and future orders which are active, pending or scheduled. Future Appointments This section includes appointments that were scheduled to occur 6 months from the date of the Encounter, up to a maximum of 20 appointments. The data comes from all [facility]. Appointment Date/Time Appointment Type Appointme nt Facility Name Aug 21, 2023 10:30 AM AMBULATORY - PSYCHIATRY [facility] Nov 07, 2023 09:30 AM AMBULATORY - MEDICINE [facility] Nov 07, 2023 10:30 AM AMBULATORY - MEDICINE [facility] Active, Pending, and Scheduled Orders This section includes a listing of several types of active, pending, and scheduled orders, including clinic medications orders, diagnostic test orders, procedure orders and consult orders; where the start date of the order is 45 days before the date of the Encounter or 45 days after the date of theEncounter. The data comes from all [facility]. Test Date/Time Test Type Test Details Facility Name Jul 11, 2023 12:00 AM Laboratory - Chemi stry Order VITAMIN A SERUM [facility] Jul 11, 2023 12:00 AM Laboratory - Chemi stry Order HEMOGLOBIN A1C BLOOD [facility] Aug 15, 2023 12:00 AM Laboratory - Chemi stry Order BASIC METABOLIC PANEL+MG PLASMA [facility] Aug 15, 2023 12:00 AM Laboratory - Chemi stry Order HEMOGLOBIN A1C BLOOD [facility] Aug 15, 2023 12:00 AM Laboratory - Chemi stry Order CBC BLOOD [facility] Social History: Smoking Status (Most current) and Tobacco Use (All prior to encounter date) This section includes the most current, and the historical, smoking and tobacco- related health factors from the [facility] where the Encounter took place. Current Smoking Status This section includes the most current smoking, or tobacco-related health factor, from the [facility] where the Encounter took place. Date/Time Current Smoking Status Comment Facil ity Aug 15, 2022 09:00 AM VA-TOBACCO FORMER USER [facility] Tobacco Use History This section includes a history of the smoking, or tobacco-related health factors, that were collected on or before the date of the Encounter. The data comes from the [facility] where the Encounter took place. Date/Time Smoking Status/Tobacco Use Comment F acility Aug 15, 2022 09:00 AM SD-TOBACCO QUIT 15 YRS OR MORE [facility] Aug 21, 2021 01:00 PM VA-TOBACCO FORMER USER [facility] Aug 21, 2021 01:00 PM VA-TOBACCO QUIT 15 YRS OR MORE [facility] Jul 09, 2018 08:58 AM VA-TOBACCO FORMER USER [facility] Jul 09, 2018 08:58 AM VA-TOBACCO QUIT 15 YRS OR MORE [facility] Jul 18, 2017 09:58 AM FORMER TOBACCO USER 7Y OR GREATE R [facility] Aug 14, 2016 10:59 AM FORMER TOBACCO USER 7Y OR GREATE R [facility] Jun 29, 2015 02:03 PM FORMER TOBACCO USER 7Y OR GREATE R [facility] Jan 06, 2014 03:04 PM FORMER TOBACCO USER 7Y OR GREATE R [facility] Jan 04, 2012 08:36 AM FORMER TOBACCO USER 7Y OR GREATE R [facility] Encounter Notes: All associated encounter notes This section contains the clinical notes associated to the Encounter. Date/Time Encounter Note(s) Provider Source Aug 14, 2023 12:03 PM HOME HEALTH REFERR AL NOTE: LOCAL TITLE: [facility] STANDARD TITLE: HOME HEALTH REFERRAL NOTE DATE OF NOTE: AUG 14, 2023@12:03 ENTRY DATE: AUG 14, 2023@12:03:32 AUTHOR: STACEY SEWELL EXP COSIGNER: URGENCY: STATUS: COMPLETED HOME HEALTH CARE CERTIFICATION AND PLAN OF CARE SIGNED BY: Dr. Sonia Ordaz/[facility] Certification period From: Jun To: Aug /pablo/ STACEY SEWELL RN Signed: 08/14/2023 12:04 STACEY SEWELL [facility]
== END 2023-08-14 08:19 | disposition home or self-care (01) ==
LOC: AMB 08-16 16:14
PROVIDERS: Visit Provider Family Medicine
DX: S69.92XA Unspecified injury of left wrist, hand and finger(s), initial encounter (principal); W18.30XA Fall on same level, unspecified, initial encounter; Y92.480 Sidewalk as the place of occurrence of the external cause
CPT/HCPCS: A0425; A0429

== ENCOUNTER 2023-08-14 08:41 | Emergency (ER) | payer MEDICARE, MEDICAID, SELFPAY ==
[2023-08-14 08:50] VITALS: BP 123/70; PULSE 73; RESP 18; TEMP 36.6; O2SAT 99; BMI 25.5
--- NOTE | 2023-08-14 08:51 | ED_ITS ---
HPI - General Adult General Chief complaint: Extremity Pain/Injury, Lower Stated complaint: fall Time Seen by Provider: 08/14/23 08:42 History of Present Illness HPI narrative: The patient is a 77-year-old male who unfortunately is follow a couple of times in the last few days. Most recently was yesterday. Today developed some pain in his knee on the left and his right wrist. His main reason for coming is his right wrist. He was brought in by ambulance. He reports that he simply lost balance when he was walking. He has not had issues with frequent falls by his report. He has a pretty complicated medical history including impaired cognition, pneumonia , diabetes , atrial fibrillation is chronic COPD, lumbar disc herniation. He denies lightheadedness, dizziness, fevers, chills he, cough. Denies lower extremity edema. Denies focal neurologic changes Related Data Home Medications Medication Instructions Recorded Confirmed apixaban 5 mg tablet (Eliquis) 5 mg PO BID 04/24/23 04/24/23 aripiprazole 15 mg tablet 15 mg PO QDAY 04/24/23 04/24/23 atorvastatin 10 mg tablet 10 mg PO QHS 04/24/23 04/24/23 bupropion HCl 150 mg 24 hr tablet, 150 mg PO QDAY 04/24/23 04/24/23 extended release calcium carbonate 500 mg-vitamin 2 tab PO BID 04/24/23 04/24/23 D3 3.125 mcg (125 unit) tablet cholecalciferol (vitamin D3) 25 2,000 unit PO DAILY 04/24/23 04/24/23 mcg (1,000 unit) tablet cyanocobalamin (vitamin B-12) 1,000 mcg PO DAILY 04/24/23 04/24/23 1,000 mcg tablet insulin aspar prot-insulin aspart 4 unit subcut QDAY 04/24/23 04/24/23 100 unit/mL (70-30) subcutaneous pen (Novolog Mix 70-30FlexPen U-100) lurasidone 40 mg tablet 40 mg PO QPM 04/24/23 04/24/23 magnesium oxide 400 mg (241.3 mg 400 mg PO BID 04/24/23 04/24/23 magnesium) tablet metformin 500 mg tablet,extended 500 mg PO DAILY 04/24/23 04/24/23 release 24 hr metoprolol succinate 50 mg 50 mg PO QDAY 04/24/23 04/24/23 tablet,extended release 24 hr multivitamin 1 tab PO QDAY 04/24/23 04/24/23 mv-mn-folic 200 mcg-vit K 15 1 cap PO BID 04/24/23 04/24/23 mcg-lutein 5 mg-zeaxanthin 1 mg capsule (PreserVision AREDS 2 Plus Multivit) omeprazole 20 mg capsule,delayed 40 mg PO BID 04/24/23 04/24/23 release venlafaxine 150 mg 150 mg PO DAILY 04/24/23 04/24/23 capsule,extended release 24 hr Allergies Allergy/AdvReac Type Severity Reaction Status Date / Time Sulfa (Sulfonamide Allergy Mild Rash Verified 04/24/23 14:02 Antibiotics) sulfamethoxazole Allergy Mild Rash Verified 04/24/23 14:02 trimethoprim Allergy Mild Rash Verified 04/24/23 14:02 Review of Systems Status of ROS: Reports: 6 or more systems reviewed and unremarkable except as noted in History and below PFSH PFSH Surgical History Hx of appendectomy ?Z90.49 - Acquired absence of other specified parts of digestive tract (ICD- 10) History of carpal tunnel release ?Z98.890 - Other specified postprocedural states (ICD-10) Hx of cholecystectomy ?Z90.49 - Acquired absence of other specified parts of digestive tract (ICD- 10) H/O submandibular gland removal ?Z98.890 - Other specified postprocedural states (ICD-10) ?Z90.89 - Acquired absence of other organs (ICD-10) Hx of hernia repair ?Z98.890 - Other specified postprocedural states (ICD-10) ?Z87.19 - Personal history of other diseases of the digestive system (ICD-10) Hx of tonsillectomy ?Z90.89 - Acquired absence of other organs (ICD-10) History of gastric bypass ?Z98.84 - Bariatric surgery status (ICD-10) Social History Smoking Status: Never smoker Do you use any of these nicotine containing products: None Second hand tobacco smoke exposure: No How often do you have a drink containing alcohol: never AUDIT-C Alcohol total score: 0 Non-prescribed substance use: denies use Exam Narrative: Exam Narrative: Objective: Patient's vital signs look within normal limits He is alert orient x3, pleasant man HEENT and neck are unremarkable to any findings no bruising ecchymoses no neck tenderness Back exam unremarkable Chest nontender abdomen nontender upper extremities show right wrist swelling over the distal radius, no open wounds distal CMS is intact His abdomen is benign pelvis stable Extremities show a bruise over his left knee slight soft tissue swelling about his knee. He reports he has been ambulatory. He has no focal neurologic w eakness or sensation change. Const: Vital Signs, click to edit/add: Vital Signs - 24 hr 08/14/23 08:50 Temperature 97.8 F Pulse Rate [Right Pulse Oximeter] 73 Respiratory Rate 18 Blood Pressure [Ri ght Upper Arm] 123/70 Pulse Oximetry 99 Oxygen Delivery Me thod Room Air Course Vital Signs Vital signs: Initial Vital Signs Temperature 97.8 F 08/14/23 08:50 Temperature Source Temporal Artery Scan 08/14/23 08:50 Pulse Rate 73 08/14/23 08:50 Respiratory Rate 18 08/14/23 08:50 Blood Pressure 123/70 08/14/23 08:50 Blood Pressure Mean 87 08/14/23 08:50 Blood Pressure Position Sitting 08/14/23 08:50 Pulse Oximetry 99 08/14/23 08:50 Oxygen Delivery Method Room Air 08/14/23 08:50 Vital Signs Temperature 97.8 F 08/14/23 08:50 Pulse Rate 73 08/14/23 08:50 Respiratory Rate 18 08/14/23 08:50 Blood Pressure 123/70 08/14/23 08:50 Pulse Oximetry 99 08/14/23 08:50 Oxygen Delivery Method Room Air 08/14/23 08:50 Temperature 97.8 F 08/14/23 08:50 Pulse Rate 73 08/14/23 08:50 Respiratory Rate 18 08/14/23 08:50 Blood Pressure 123/70 08/14/23 08:50 Pulse Oximetry 99 08/14/23 08:50 Oxygen Delivery Method Room Air 08/14/23 08:50 Medical Decision Making MDM Narrative Medical decision making narrative: [age] year white male who by his report [place] [facility] [place], reports that he has fallen a couple of times accidentally and when he lost his balance over the last few days. Last fall was yesterday where he injured his right wrist and left knee. These will get x-rayed. Will also check a heme 4 and a basic 7. Disposition pending findings. Addendum 9:44 a.m. by my read his x-rays of his knee and wrist or other thakur negative for fracture, mild degenerative changes. He is also complaining of his right hip will get a pelvis and right hip x-ray. Also check his electrolytes and hemoglobin. Addendum 10:30 a.m.: The patient's x-ray of his wrist and pelvis are negative, his knee x-ray is also negative other than chronic degenerative changes. The patient's white count is normal at 6750 hemoglobin 11.5, electrolytes are pending at this point. If these are somewhat within normal limits will long to go home, have given him a wrist splint. Would not use Tylenol and ice on the affected areas. Recheck with regular doctor in the next few days. Lab Data Labs: Lab Results 08/14/23 Range/Units 09:50 WBC 6.75 (4.50-11.00) K/uL RBC 3.88 L (4.30-5.90) m/uL Hgb 11.5 L (13.5-17.5) gm/dL Hct 35.4 L (37.0-53.0) % MCV 91 (80-100) fL MCH 30 (26-34) pg MCHC 33 (32-36) gm/dL RDW Coeff of Maurcie 13.9 (11.5-15.5) % Plt Count 206 (140-440) K/uL Neut % (Auto) 61.0 (42.0-72.0) % Lymph % (Auto) 25.2 (20-44) % Kleberg % (Auto) 10.8 (0.0-11.0) % Eos % (Auto) 2.8 (0.0-7.0) % Baso % (Auto) 0.1 (0.0-3.0) % Neut # (Auto) 4.11 (1.7-7.0) K/uL Lymph # (Auto) 1.70 (0.90-2.90) K/uL Kleberg # (Auto) 0.70 (0.00-0.90) K/UL Eos # (Auto) 0.19 (0.00-0.50) K/uL Baso # (Auto) 0.01 (0.00-0.30) K/uL Abs Immat Gran (auto) 0.01 (0.00-0.30) K/uL Imm/Tot Granulo (auto) 0.1 % Sodium 140 (135-149) mmol/L Potassium 4.6 (3.6-5.1) mmol/L Chloride 103 (96-114) mmol/L Carbon Dioxide 34 H (20-32) mmol/L Anion Gap 3 L (7-15) mEq/L BUN 23 (7-30) mg/dL Creatinine 1.0 (0.5-1.5) mg/dL Estimated Creat Clear 63.83 Estimated GFR 78 ml/min Glucose 123 H (60-115) mg/dL Calcium 8.9 (8.4-10.6) mg/dL Discharge Plan Discharge Clinical Impression: Acute wrist pain, Fall Patient Disposition: Home w/ Parent or Adult Condition: Stable Additional Instructions: Wear the wrist splint, he can put ice on the affected areas from your fall. Recommend we recheck with her regular doctor the next several days. Continue home medications. Activity Level: Light activity Discharge Diet: Diabetic Prescriptions: No Action lurasidone 40 mg tablet 40 mg PO QPM cholecalciferol (vitamin D3) 25 mcg (1,000 unit) tablet 2,000 unit PO DAILY cyanocobalamin (vitamin B-12) 1,000 mcg tablet 1,000 mcg PO DAILY multivitamin Tablet 1 tab PO QDAY venlafaxine 150 mg capsule,extended release 24hr 150 mg PO DAILY PreserVision AREDS 2 Plus MV 200 mcg-15 mcg- 5 mg-1 mg capsule 1 cap PO BID magnesium oxide 400 mg (241.3 mg magnesium) tablet 400 mg PO BID omeprazole 20 mg capsule,delayed release(DR/EC) 40 mg PO BID calcium carbonate-vitamin D3 500 mg-3.125 mcg (125 unit) tablet 2 tab PO BID metformin 500 mg tablet extended release 24 hr 500 mg PO DAILY Eliquis 5 mg tablet 5 mg PO BID aripiprazole 15 mg tablet 15 mg PO QDAY atorvastatin 10 mg tablet 10 mg PO QHS bupropion HCl 150 mg tablet extended release 24 hr 150 mg PO QDAY metoprolol succinate 50 mg tablet extended release 24 hr 50 mg PO QDAY insulin asp prt-insulin aspart [Novolog Mix 70-30FlexPen U-100] 100 unit/mL (70-30) insulin pen 4 unit SUBCUT QDAY Patient Comments: INJECT 20 UNITS EVERY MORNING AND 4 AT MEAL TIME Follow Up/Referrals: Nelson Lowe MD [Staff Physician] - Stand Alone Forms: [employer] Info Instructions
--- NOTE | 2023-08-14 08:59 | CRLHL7_ITS ---
For Patients: As a result of the Cures Act, medical imaging exams and procedure reports are released immediately into your electronic medical record. You may view this report before your referring provider. If you have questions, please contact your health care provider. Indication: Injury Technique: A total of three views of the right knee were acquired. Comparison: None Findings: Bones: Alignment is normal. No fractures or bone lesions. Joint spaces: Mild degenerative changes. No dislocation Soft tissues: Unremarkable. Impression: Mild degenerative changes. No acute fracture, dislocation or destructive process Dictated by Joe Ambriz MD @ 08/14/2023 9:34:14 AM (Electronically Signed)
--- NOTE | 2023-08-14 08:59 | CRLHL7_ITS ---
For Patients: As a result of the Century Cures Act, medical imaging exams and procedure reports are released immediately into your electronic medical record. You may view this report before your referring provider. If you have questions, please contact your health care provider. Indication: Fall Technique: A total of three views of the left knee were acquired. Comparison: None Findings: Neuro are demineralized osseous structures and degenerative changes. This most affects the medial and patellofemoral compartment. No dislocation. There is a small joint effusion. 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 No directly visible acute fracture, dislocation or destructive process. Small joint effusion. Dictated by Joe Ambriz MD @ 08/14/2023 9:33:06 AM (Electronically Signed)
--- OUTSIDE RECORDS SUMMARY | 2023-08-14 09:19 | XMS_ITS | Continuity of Care Document ---
Author Name [facility] Organization [facility] Care Team Providers Care Television Actor Name Role Phone [facility] Unavailable Unavailable Problems Combined list of problems from Department of Defense and Veterans Affairs facilities. It does not include entries that were removed or entered in error. Problem Status Onset Date Problem Type Date of Resolution Comments Source Astigmatism, Unspec Active Condition [facility] Atrial fibrillation (SNOMED CT 35123708) Active Condition [facility] Bariatric Surgery Status (ICD-9-CM V45.86) Active Condition [facility] Bipolar disorder (SNOMED CT 85954812) Active Condition [facility] Bronchiectasis (SNOMED CT 17958359) Active Condition [facility] Cataracts (SNOMED CT 14533970) Active Condition [facility] Compulsive gambling Active Condition [facility] Dementia Active Condition [facility] Essential hypertension (SNOMED CT 75150147) Active Condition [facility] Gastritis Active Condition [facility] Gastroesophageal reflux disease (SNOMED CT 778891154) Active Condition [facility] Generalized anxiety disorder (SNOMED CT 41958140) Active Condition [facility] Hypermetropia/Hypero miguel Active Condition [facility] Long-term current use of anticoagulant Active Condition [facility] Major depressive disorder (SNOMED CT 228465159) Active Condition [facility] Mild cognitive disorder Active Condition [facility] Presbyopia Active Condition [facility] Primary Obesity (ICD-9-CM 278.00) Active Condition [facility] Type 2 diabetes mellitus Active Condition [facility] Varicose veins of lower extremity Active Condition [facility] Diagnosis: ICD-10-CM E66.3 Overweight Active Diagnosis [facility] Diagnosis: ICD-10-CM F03.A4 Unspecified dementia, mild, with anxiety Active Diagnosis [facility] Diagnosis: ICD-10-CM F31.81 Bipolar II disorder Active Diagnosis [facility] Diagnosis: ICD-10-CM M16.11 Unilateral primary osteoarthritis, right hip Active Diagnosis [facility] Diagnosis: ICD-10-CM E11.8 Type 2 diabetes mellitus with unspecified complications Active Diagnosis [facility] Diagnosis: ICD-10-CM Z01.818 Encounter for other preprocedural examination Active Diagnosis [facility] Diagnosis: ICD-10-CM Z13.6 Encounter for screening for cardiovascular disorders Active Diagnosis [facility] Diagnosis: ICD-10-CM F03.A18 Unspecified dementia, mild, with other behavioral disturb Active Diagnosis [facility] Diagnosis: ICD-10-CM R13.12 Dysphagia, oropharyngeal phase Active Diagnosis [facility] Diagnosis: ICD-10-CM E11.69 Type 2 diabetes mellitus with other specified complication Active Diagnosis [facility] Diagnosis: ICD-10-CM E66.09 Other obesity due to excess calories Active Diagnosis [facility] Diagnosis: ICD-10-CM M17.0 Bilateral primary osteoarthritis of knee Active Diagnosis [facility] Diagnosis: ICD-10-CM I10 Essential (primary) hypertension Active Diagnosis [facility] Diagnosis: ICD-10-CM K44.9 Diaphragmatic hernia without obstruction or gangrene Active Diagnosis [facility] Diagnosis: ICD-10-CM Z79.01 intermediate manager (current) use of anticoagulants Active Diagnosis [facility] Medications Combined list of outpatient medications from Department of Defense and [facility] Affairs facilities.Medications provided include 1) outpatient medications from the last 15 months, and 2) patient-reported medications. Medication Details Route Status Patient Instructions Prescription Expires Prescription Number Last Dispense Date Ordering Provider Order Date Source ACETAMINOPH EN 500MG TAB TAKE ONE TABLET BY MOUTH EVERY 6 HOURS NEEDED FOR PAIN ORALLY ACTIVE 08/16/2023 [id number] KEITH CRANE 2022 [facility] ALBUTEROL 90MCG/ACTUA T (CFC-F) INHL,ORAL,8 .5GM DOSE COUNTER INHALE 1-2 PUFFS BY INHALATI ON EVERY 4 HOURS NEEDED FOR IMMEDIAT E RELIEF OF SHORTNES S OF BREATH *SHAKE WELL* INHALA TION 10/05/2022 [id number] 2 KEITH CRANE 2021 [facility] APIXABAN 5MG TAB TAKE ONE TABLET BY MOUTH EVERY 12 HOURS TO PREVENT AND/OR TREAT BLOOD CLOTS ORALLY ACTIVE 10/13/2023 [id number] 3 SUZIE MISSY L 2022 [facility] APIXABAN 5MG TAB TAKE ONE TABLET BY MOUTH EVERY 12 HOURS TO PREVENT AND/OR TREAT BLOOD CLOTS ORALLY DISCONT INUED 2022 [id number] RICHA SUE 2021 [facility] ARIPIPRAZOL E 20MG TAB TAKE ONE TABLET BY MOUTH EVERY DAY FOR BIPOLAR DISORDER DOSE INCREASE D 11-23-22 ORALLY ACTIVE 11/24/2023 [id number] 3 USHA PURI 2022 [facility] ARIPIPRAZOL E 30MG TAB TAKE ONE-HALF TABLET BY MOUTH EVERY DAY ORALLY DISCONT INUED (EDIT) 01/27/2023 [id number] 3 USHA PURI 2021 [facility] ATORVASTATI N CA 10MG TAB TAKE ONE TABLET BY MOUTH AT BEDTIME ORALLY ACTIVE 09/21/2023 [id number] 3 MARIUSZ PHILLIPS 2022 [facility] ATORVASTATI N CA 20MG TAB TAKE ONE-HALF TABLET BY MOUTH AT BEDTIME ORALLY DISCONT INUED 10/05/2022 [id number] 2 KEITH CRANE 2021 [facility] ATORVASTATI N CA 20MG TAB TAKE ONE-HALF TABLET BY MOUTH AT BEDTIME ORALLY DISCONT INUED (EDIT) 09/21/2023 [id number] 3 MARIUSZ PHILLIPS 2022 [facility] BUPROPION HCL 150MG 24HR TAB,SA TAKE ONE TABLET BY MOUTH EVERY MORNING ORALLY SUSPEND ED 11/24/2023 [id number] 4 USHA PURI 2022 [place] [facility] BUPROPION HCL 150MG 24HR TAB,SA TAKE ONE TABLET BY MOUTH EVERY MORNING ORALLY DISCONT INUED 01/27/2023 [id number] 3 USHA PURI 2021 [facility] CALCIUM 200MG (CA CITRATE-950 MG) TAB TAKE TWO TABLETS BY MOUTH TWICE A DAY FOR CALCIUM SUPPLEME NT ORALLY ACTIVE 09/12/2023 [id number] 3 JOSEKAYLEIGHZULLYChristos Digeo 2022 [facility] CHOLECALCIF GABRIELA 25MCG (1,000UNIT) TAB TAKE ONE TABLET BY MOUTH EVERY DAY ORALLY SUSPEND ED 09/21/2023 [id number] 4 MARIUSZ PHILLIPS Elba 2022 [facility] CHOLECALCIF GABRIELA 25MCG (1,000UNIT) TAB TAKE ONE TABLET BY MOUTH EVERY DAY ORALLY DISCONT INUED 10/05/2022 [id number] KEITH CRANE 2021 [facility] CYANOCOBALA MIN 1000MCG TAB TAKE ONE TABLET BY MOUTH EVERY DAY ORALLY SUSPEND ED 11/28/2023 [id number] 4 KEITH CRANE 2022 [facility] CYANOCOBALA MIN 1000MCG TAB TAKE ONE TABLET BY MOUTH EVERY DAY ORALLY DISCONT INUED 10/05/2022 [id number] 3 KEITH CRANE 2021 [facility] DICLOFENAC NA 1% GEL,TOP APPLY 4 GRAMS TOPICALL Y FOUR TIMES A DAY NEEDED TO AFFECTED AREA FOR PAIN. *USE DOSE CARD IN BOX TO MEASURE DOSE. MAX 32 GRAMS PER DAY. TOPICA LLY 02/10/2023 [id number] 3 HARPREET STEPHENSON 2021 [facility] FERROUS SO4 325MG TAB TAKE ONE TABLET BY MOUTH EVERY DAY IRON DEFICIEN CY ORALLY ACTIVE 11/07/2023 [id number] 3 ADELE KINCAID 2022 [facility] INSULIN,GLA RGINE,HUMAN 100 UNIT/ML INJ,SOLOSTA R,3ML INJECT 14 UNITS UNDER THE SKIN EVERY DAY SUBCUT ANEOUS 06/07/2023 [id number] 3 INGRID BURLESON 2021 [facility]AP [facility] LIDOCAINE 5% PATCH APPLY 1 PATCH TOPICALL Y EVERY DAY FOR PAIN TOPICA LLY ACTIVE 08/16/2023 [id number] 4 KEITH CRANE 2022 [facility]AP [facility] MAGNESIUM OXIDE 400MG TAB TAKE TWO TABLETS BY MOUTH EVERY DAY FOR SUPPLEME NTATION ORALLY ACTIVE 06/17/2024 [id number] 3 LIZ AR,RACHEL 2022 [facility] MAGNESIUM OXIDE 400MG TAB TAKE TWO TABLETS BY MOUTH EVERY DAY FOR SUPPLEME NTATION ORALLY DISCONT INUED 07/12/2023 [id number] 3 INGRID BURLESON R 2021 [facility] METFORMIN HCL 500MG TAB TAKE ONE TABLET BY MOUTH EVERY DAY FOR DIABETES *NOTE:WH OLE TABLETS ORALLY ACTIVE 06/12/2024 [id number] 4 KATHERINE, ALTHEA A 2022 [facility] METFORMIN HCL 500MG TAB TAKE ONE TABLET BY MOUTH EVERY DAY FOR DIABETES *NOTE:WH OLE TABLETS ORALLY DISCONT INUED 05/02/2023 [id number] 3 ANGIEFFA, ALTHEA A 2021 [facility] METOPROLOL SUCCINATE 50MG TAB,SA TAKE ONE TABLET BY MOUTH EVERY DAY FOR HEART AND BLOOD PRESSURE ORALLY ACTIVE 10/27/2023 [id number] 4 KEITH CRANE 2022 [facility] METOPROLOL SUCCINATE 50MG TAB,SA TAKE ONE TABLET BY MOUTH EVERY DAY FOR HEART AND BLOOD PRESSURE ORALLY DISCONT INUED 10/05/2022 [id number] 3 KEITH CRANE 2021 [facility]AP IS [facility] MULTIVIT/OP HTH AREDS2/LUTE IN/ZEAXANTH IN CAP/TAB TAKE 1 CAP/TAB BY MOUTH TWICE A DAY WITH MEALS ORALLY ACTIVE 12/28/2023 [id number] 3 KEITH CRANE 2022 [facility]AP [facility] MULTIVIT/OP HTH AREDS2/LUTE IN/ZEAXANTH IN CAP/TAB TAKE 1 CAP/TAB BY MOUTH TWICE A DAY WITH MEALS ORALLY DISCONT INUED 12/12/2022 [id number] 3 KEITH CRANE 2021 [place] [facility] MULTIVITAMI NS CAP/TAB TAKE 1 TABLET BY MOUTH EVERY DAY ORALLY ACTIVE 2023 [id number] 3 KEITH CRANE 2022 [place] [facility] MULTIVITAMI NS CAP/TAB TAKE 1 TABLET BY MOUTH EVERY DAY ORALLY 10/05/2022 [id number] KEITH CRANE 2021 [place] [facility] OMEPRAZOLE 20MG CAP,EC TAKE ONE CAPSULE BY MOUTH EVERY MORNING AND TAKE TWO CAPSULES EVERY EVENING ON AN EMPTY STOMACH, AT LEAST 30 MINUTES PRIOR TO A MEAL FOR REFRACTO RY GERD ORALLY 07/12/2023 [id number] 3 INGRID BURLESON 2021 [place] [facility] SEMAGLUTIDE 0.25MG/0.37 5ML INJ,SOLN,PE N,3ML INJECT 0.5MG UNDER THE SKIN EVERY WEEK DIABETES AND WEIGHT LOSS SUBCUT ANEOUS ACTIVE 11/08/2023 [id number] 4 ADELE KINCAID HAJOSE 2022 [place] [facility] SEMAGLUTIDE 0.25MG/0.37 5ML INJ,SOLN,PE N,3ML INJECT 0.25MG UNDER THE SKIN EVERY WEEK FOR 4 WEEKS, THEN INJECT 0.5MG EVERY WEEK DIABETES AND WEIGHT LOSS SUBCUT ANEOUS DISCONT INUED 11/08/2023 [id number] 3 ADELE KINCAID 2022 [place] [facility] VENLAFAXINE HCL 150MG 24HR CAP,SA TAKE ONE CAPSULE BY MOUTH EVERY DAY ORALLY SUSPEND ED 11/24/2023 [id number] 4 USHA PURI 2022 [place] [facility] VENLAFAXINE HCL 150MG 24HR CAP,SA TAKE ONE CAPSULE BY MOUTH EVERY DAY ORALLY DISCONT INUED 01/27/2023 [id number] 3 PURIUSHA MAYO KERWIN 2021 [facility] Allergies, Adverse Reactions, Alerts Combined list of allergies from Department of Defense and Veterans Affairs facilities. It does not include entries that were removed or entered in error. Substance Category Reaction Severity Reaction type Status Date Reported Comments Source EMPAGLIFLOZI N Propensity to adverse reactions to drug (finding) Dizziness, Fatigue MILD active 2 [facility] SULFAMETHOXA ZOLE Propensity to adverse reactions to drug (finding) Acute renal impairment active 2 [facility] Immunizations Combined list of available immunizations from the Department of Defense and Veterans Affairs facilities. Immunization Series Date Given Administered By Site Reaction Lot Number CVX Code Drug English Instructor Status Comments Source INFLUENZA VACCINE, QUADRIVALENT, ADJUVANTED 2022 SUSAN MEIER LEFT DELTO ID [id number] 205 complet ed [facility] ZOSTER RECOMBINANT 2 2021 187 complet ed [facility] COVID-19 (MODERNA), MRNA, LNP-S, PF, 100 MCG/0.5ML DOSE OR 50 MCG/0.25ML DOSE 4 2021 207 complet ed [facility] ZOSTER RECOMBINANT 1 2021 187 complet ed [facility] COVID-19 (MODERNA), MRNA, LNP-S, PF, 100 MCG/0.5ML DOSE OR 50 MCG/0.25ML DOSE 3 2020 207 complet ed [facility] INFLUENZA, HIGH DOSE SEASONAL 2020 135 complet ed [facility] INFLUENZA, UNSPECIFIED FORMULATION 2020 88 complet ed [facility] COVID-19 (MODERNA), MRNA, LNP-S, PF, 100 MCG/0.5 ML DOSE 2 2020 207 complet ed [facility] COVID-19 (MODERNA), MRNA, LNP-S, PF, 100 MCG/0.5ML DOSE OR 50 MCG/0.25ML DOSE 2020 207 complet ed [facility] COVID-19 (MODERNA), MRNA, LNP-S, PF, 100 MCG/0.5 ML DOSE 1 2020 207 complet ed [facility] INFLUENZA, INJECTABLE, QUADRIVALENT, PRESERVATIVE FREE 2019 150 complet ed [facility] ZOSTER RECOMBINANT 1 2018 187 complet ed [facility] INFLUENZA, SEASONAL, INJECTABLE, PRESERVATIVE FREE 2017 140 complet ed [facility] INFLUENZA, HIGH DOSE SEASONAL 2016 135 complet ed [facility] PNEUMOCOCCAL POLYSACCHARID E PPV23 2016 33 complet ed [place], [id number], EX 01/01/2018 [facility] INFLUENZA, HIGH DOSE SEASONAL 2016 135 complet ed [facility] PNEUMOCOCCAL CONJUGATE PCV 13 2015 133 complet ed 000 [facility] INFLUENZA, HIGH DOSE SEASONAL 2014 135 complet ed [facility] INFLUENZA, SEASONAL, INJECTABLE 2014 141 complet ed [facility] INFLUENZA, SEASONAL, INJECTABLE 2013 141 complet ed [facility] INFLUENZA, INJECTABLE, QUADRIVALENT 2013 158 complet ed [facility] INFLUENZA, UNSPECIFIED FORMULATION 2012 88 complet ed [facility] TDAP 2012 115 complet ed 2R45M/04/12 [facility] ZOSTER LIVE 2012 121 complet ed [id number] [facility] INFLUENZA, UNSPECIFIED FORMULATION 2012 88 complet ed [facility] PNEUMOCOCCAL POLYSACCHARID E PPV23 2011 33 complet ed [facility] INFLUENZA, UNSPECIFIED FORMULATION 2010 88 complet ed [facility] PNEUMOCOCCAL, UNSPECIFIED FORMULATION 2010 109 complet ed [facility] INFLUENZA, SEASONAL, INJECTABLE, PRESERVATIVE FREE 2009 140 complet ed [facility] TD(ADULT) UNSPECIFIED FORMULATION 2007 139 complet ed [facility] INFLUENZA, SEASONAL, INJECTABLE 2002 141 complet ed [facility] INFLUENZA, UNSPECIFIED FORMULATION 1997 88 complet ed [facility] PNEUMOCOCCAL POLYSACCHARID E PPV23 1997 33 complet ed [facility] Results Combined list of recent chemistry, hematology [...] Jul 11, 2023 10:23 AM Reporting Lab: [facility] [address] Performing Lab: [facility] [address] [place] [facility] BASIC METABOLIC PANEL+MG UREA NITROGEN [MASS/VOLUM E] IN SERUM OR PLASMA 22 8 - 26 07/11 Specimen Type: PLASMA No comment entered. Ordering Provider: EJSSICA ALVAREZ Report Released Date/Time: Jul 11, 2023 10:23 AM Reporting Lab: [facility] [address] Performing Lab: [facility] [address] [place] [facility] BASIC METABOLIC PANEL+MG GLUCOSE [MASS/VOLUM E] IN SERUM OR PLASMA 193 70 - 100 07/11 H Specimen Type: PLASMA No comment entered. Ordering Provider: JESSICA ALVAREZ Report Released Date/Time: Jul 11, 2023 10:23 AM Reporting Lab: [facility] [address] Performing Lab: [facility] [address] [place] [facility] BASIC METABOLIC PANEL+MG SODIUM [MOLES/VOLU ME] IN SERUM OR PLASMA 143 136 - 145 07/11 Specimen Type: PLASMA No comment entered. Ordering Provider: JESSICA ALVAREZ Report Released Date/Time: Jul 11, 2023 10:23 AM Reporting Lab: [facility] [address] Performing Lab: [facility] [address] [place] [facility] BASIC METABOLIC PANEL+MG POTASSIUM [MOLES/VOLU ME] IN SERUM OR PLASMA 3.7 3.5 - 5.1 07/11 Specimen Type: PLASMA No comment entered. Ordering Provider: JESSICA ALVAREZ Report Released Date/Time: Jul 11, 2023 10:23 AM Reporting Lab: [facility] [address] Performing Lab: [facility] [address] [place] [facility] BASIC METABOLIC PANEL+MG CHLORIDE [MOLES/VOLU ME] IN SERUM OR PLASMA 108 98 - 107 07/11 H Specimen Type: PLASMA No comment entered. Ordering Provider: JESSICA ALVAREZ Report Released Date/Time: Jul 11, 2023 10:23 AM Reporting Lab: [facility] [address] Performing Lab: [facility] [address] [place] [facility] BASIC METABOLIC PANEL+MG CARBON DIOXIDE, TOTAL [MOLES/VOLU ME] IN SERUM OR PLASMA 28 - 29 07/11 Specimen Type: PLASMA No comment entered. Ordering Provider: JESSICA ALVAREZ Report Released Date/Time: Jul 11, 2023 10:23 AM Reporting Lab: [facility] [address] Performing Lab: [facility] [address] [place] [facility] BASIC METABOLIC PANEL+MG CALCIUM [MASS/VOLUM E] IN SERUM OR PLASMA 9.2 8.4 - 10.2 07/11 Specimen Type: PLASMA No comment entered. Ordering Provider: JESSICA ALVAREZ Report Released Date/Time: Jul 11, 2023 10:23 AM Reporting Lab: [facility] [address] Performing Lab: [facility] [address] [place] [facility] BASIC METABOLIC PANEL+MG MAGNESIUM [MASS/VOLUM E] IN SERUM OR PLASMA 1.8 1.6 - 2.6 07/11 Specimen Type: PLASMA No comment entered. Ordering Provider: JESSICA ALVAREZ Report Released Date/Time: Jul 11, 2023 10:23 AM Reporting Lab: [facility] [address] Performing Lab: [facility] [address] [place] [facility] BASIC METABOLIC PANEL+MG ANION GAP IN SERUM OR PLASMA 7 5 - 15 07/11 Specimen Type: PLASMA No comment entered. Ordering Provider: JESSICA ALVAREZ Report Released Date/Time: Jul 11, 2023 10:23 AM Reporting Lab: [facility] [address] Performing Lab: [facility] [address] [place] [facility] BASIC METABOLIC PANEL+MG GLOMERULAR FILTRATION RATE/1.73 SQ M.PREDICTED [VOLUME RATE/AREA] IN SERUM, PLASMA OR BLOOD BY CREATININE- BASED FORMULA (CKD-EPI 2020) 63 60 07/11 Specimen Type: PLASMA No comment entered. Ordering Provider: JESSICA ALVAREZ Report Released Date/Time: Jul 11, 2023 10:23 AM Reporting Lab: [facility] [address] Performing Lab: [facility] [address] [place] [facility] B 12 COBALAMIN (VITAMIN B12) [MASS/VOLUM E] IN SERUM OR PLASMA 1016 213 - 816 07/11 H Specimen Type: PLASMA No comment entered. Ordering Provider: JESSICA ALVAREZ Report Released Date/Time: Jul 11, 2023 10:23 AM Reporting Lab: [facility] [address] Performing Lab: [facility] [address] [facility] COPPER COPPER [MASS/VOLUM E] IN SERUM OR PLASMA 81 70 - 175 07/11 Specimen Type: PLASMA Comment: This test was developed and its analytical performance characteris tics have been determined by [employer] [facility] [place], [place]. It has not been cleared or approved by the U.S. Food and Drug Administrat ion. This assay has been validated pursuant to the CLIA regulations and is used for clinical purposes. Test Performed by [facility], [facility], [address] [place], [place] Devante Meyer M.D., Ph.D., Director of Laboratorie s , CLIA [id number] Ordering Provider: JESSICA ALVAREZ Report Released Date/Time: Jul 11, 2023 10:23 AM Reporting Lab: [facility] [address] Performing Lab: [facility] [address] [facility] [place] [facility] FERRITIN FERRITIN [MASS/VOLUM E] IN SERUM OR PLASMA 66.0 21.8 - 274.7 07/11 Specimen Type: SERUM No comment entered. Ordering Provider: JESSICA ALVAREZ Report Released Date/Time: Jul 11, 2023 10:23 AM Reporting Lab: [facility] [address] Performing Lab: [facility] [address] [place] [facility] HEMOGLOBI N A1C HEMOGLOBIN A1C/HEMOGLO BIN.TOTAL IN [...] Jul 11, 2023 10:23 AM Reporting Lab: [facility] [address] Performing Lab: [facility] [address] [place] [facility] PRE-ALBUM IN PREALBUMIN [MASS/VOLUM E] IN SERUM OR PLASMA 22.5 14.0 - 45.0 07/11 Specimen Type: SERUM No comment entered. Ordering Provider: JESSICA ALVAREZ Report Released Date/Time: Jul 11, 2023 10:23 AM Reporting Lab: [facility] [address] Performing Lab: [facility] [address] [place] [facility] VITAMIN A RETINOL [MASS/VOLUM E] IN SERUM OR PLASMA 53 38 - 98 07/11 Specimen Type: SERUM Comment: Vitamin supplementa tion within 24 hours prior to blood draw may affect the accuracy of the results. This test was developed and its analytical performance characteris tics have been determined by [place]. It has not been cleared or approved by the U.S. Food and Drug Administrat ion. This assay has been validated pursuant to the CLIA regulations and is used for clinical purposes. Test Performed by [facility], [employer], [address] [place] [address] Devante Meyer M.D., Ph.D., Director of Laboratorie s , CLIA [id number] Ordering Provider: JESSICA ALVAREZ Report Released Date/Time: Jul 11, 2023 10:23 AM Reporting Lab: [facility] [address] Performing Lab: [address] [place] [facility] VITAMIN B-1,BLOOD THIAMINE [MOLES/VOLU ME] IN BLOOD 132 78 - 185 07/11 Specimen Type: BLOOD Comment: Vitamin supplementa tion within 24 hours prior to blood draw may affect the accuracy of the results. This test was developed and its analytical performance characteris tics have been determined by [employer] [facility] [place]. It has not been cleared or approved by the U.S. Food and Drug Administrat ion. This assay has been validated pursuant to the CLIA regulations and is used for clinical purposes. Test Performed by [facility], [employer] [place], [address] [place] [address] Devante Meyer M.D., Ph.D., Director of Laboratorie s , CLIA [id number] Ordering Provider: JESSICA ALVAREZ Report Released Date/Time: Jul 11, 2023 10:23 AM Reporting Lab: [facility] [address] Performing Lab: [address] [place] [facility] ZINC ZINC [MASS/VOLUM E] IN SERUM OR PLASMA 78 60 - 130 07/11 Specimen Type: SERUM Comment: This test was developed and its analytical performance characteris tics have been determined by [employer] [place]. It has not been cleared or approved by the U.S. Food and Drug Administrat ion. This assay has been validated pursuant to the CLIA regulations and is used for clinical purposes. Test Performed by [facility], [facility], [address] [place], [place] Devante Meyer M.D., Ph.D., Director of Laboratorie s , CLIA [id number] Ordering Provider: JESSICA ALVAREZ Report Released Date/Time: Jul 11, 2023 10:23 AM Reporting Lab: [facility] [address] Performing Lab: [address] [facility] Vital Signs Combined list of inpatient and outpatient Vital Signs from Department of Defense and Veterans Affairs, ranging from 12 months to all on record, depending upon the facility. Vital Sign Value Date Comments Source SYSTOLIC BLOOD PRESSURE 104 07/11/2023 09:58:04 [facility] DIASTOLIC BLOOD PRESSURE 71 07/11/2023 09:58:04 [facility] PULSE OXIMETRY 99% 07/11/2023 09:58:04 [facility] WEIGHT 184.3 07/11/2023 09:58:04 [facility] BMI 28kg/m2 07/11/2023 09:58:04 [facility] PAIN 4 07/11/2023 09:58:04 [facility] TEMPERATURE 97.4 07/11/2023 09:58:04 [facility] PULSE 97 07/11/2023 09:58:04 [facility] RESPIRATION 16 07/11/2023 09:58:04 [facility] SYSTOLIC BLOOD PRESSURE 118 02/25/2023 09:35:04 [facility] DIASTOLIC BLOOD PRESSURE 77 02/25/2023 09:35:04 [facility] PULSE OXIMETRY 98% 02/25/2023 09:35:04 [facility] WEIGHT 207.2 02/25/2023 09:35:04 [facility] BMI 32kg/m2 02/25/2023 09:35:04 [facility] HEIGHT 68 02/25/2023 09:35:04 [facility] TEMPERATURE 98.5 02/25/2023 09:35:04 [facility] HE[facility] 68 08/15/2022 08:56:36 [facility] PULSE 66 08/15/2022 08:56:36 [facility] RESPIRATION 20 08/15/2022 08:56:36 ALVERTO VILCHIS [facility] Encounters Combined list of: 1) Encounters from Department of Veterans Affairs facilities going back up to thelast 18 months. 2) Encounters from the Department of Defense facilities going back up to 280 months. Location Location Details Encounter Type Encounter Number Reason For Visit Attending Provider ADM Date DC Date Status Disposition Source [facility] OFFICE O/P EST HI 40-54 MIN [id number] Diagnos is: ICD-10- CM E11.8 Type 2 diabete s mellitu s with unspeci fied complic ations< br/> ADAN CHAUDHARI 04/11 [facility] Outpatient Encounter [id number] 04/13 [facility] [place] [facility] Outpatient Encounter [id number] 04/13 [facility] [place] [facility] Outpatient Encounter [id number] 04/18 [facility] QNHP OL DIG ASSMT&MGMT 11-20 [id number] Diagnos is: ICD-10- CM Z79.01 intermediate (curren t) use of anticoa gulants
ELVIS CHAVEZ 04/23 [facility] [place] [facility] Outpatient Encounter [id number] 04/25 [place] [facility] [place] [facility] Outpatient Encounter [id number] Diagnos is: ICD-10- CM E11.8 Type 2 diabete s mellitu s with unspeci fied complic ations< br/> MONTSERRAT GARZA 04/26 [place] [facility] [place] [facility] Outpatient Encounter [id number] 04/26 [place] [facility] [place] [facility] Outpatient Encounter [id number] 04/26 [place] [facility] [place] [facility] OFFICE O/P EST MOD 30-39 MIN [id number] Diagnos is: ICD-10- CM F31.81 Bipolar II disorde r
Kayla PURI 04/30 [facility] [place] [facility] MTMS BY PHARM ADDL 15 MIN [id number] Diagnos is: ICD-10- CM E11.8 Type 2 diabete s mellitu s with unspeci fied complic ations< br/> Bill MURPHY EBECCA A 04/30 [facility] [place] [facility] Outpatient Encounter [id number] 05/01 [facility] [place] [facility] Outpatient Encounter [id number] 05/02 [place] [facility] [place] [facility] Outpatient Encounter [id number] 05/04 [facility] [place] [facility] EGD BIOPSY SINGLE/MUL TIPLE [id number] Diagnos is: ICD-10- CM K44.9 Diaphra gmatic hernia without obstruc tion or gangren e
SARAH FORTUNE 05/08 [place] [facility] [place] [facility] Outpatient Encounter [id number] 05/08 [place] [facility] [place] [facility] Outpatient Encounter [id number] KIARRA BOOTH 05/11 [place] [facility] [place] [facility] Outpatient Encounter [id number] 05/16 [place] [facility] [place] [facility] Outpatient Encounter [id number] 05/16 [facility] Outpatient Encounter [id number] ROSA MARIAMAYO KETAN Cox 05/18 [facility] OFFICE O/P EST SF 10-19 MIN [id number] Diagnos is: ICD-10- CM 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
SHAHAB LYLES MD 05/23 [facility] MTMS BY PHARM ADDL 15 MIN [id number] Diagnos is: ICD-10- CM E11.8 Type 2 diabete s mellitu s with unspeci fied complic ations< br/> Kayla BURLESON 06/06 [facility] OFFICE O/P EST LOW 20-29 MIN [id number] Diagnos is: ICD-10- CM M16.11 Unilate ral primary osteoar thritis , right hip<br/ > SHALONDA SANTANA 06/06 [facility] Outpatient Encounter [id number] 06/06 [facility] Outpatient Encounter [id number] 06/26 [facility] Outpatient Encounter [id number] 07/05 [facility] MTMS BY PHARM ADDL 15 MIN [id number] Diagnos is: ICD-10- CM E11.8 Type 2 diabete s mellitu s with unspeci fied complic ations< br/> Kayla BURLESON 07/11 [facility] OFFICE O/P EST MOD 30-39 MIN [id number] Diagnos is: ICD-10- CM I10 Essenti al (primar y) hyperte nsion<b r/> ADAN CHAUDHARI NJAMIN E 08/15 [place] [facility] [place] [facility] Outpatient Encounter [id number] 08/17 [place] [facility] [place] [facility] Outpatient Encounter [id number] 08/18 [place] [facility] [place] [facility] OFF[facility] O/P EST MOD 30-39 MIN [id number] Diagnos is: ICD-10- CM F31.81 Bipolar II disorde r
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
SOFIA VARELA 08/28 [place] [facility] [place] [facility] Outpatient Encounter [id number] 08/29 [place] [facility] [place] [facility] Outpatient Encounter [id number] 08/31 [place] [facility] [place] [facility] Outpatient Encounter [id number] RA JACOB NJU 09/07 [place] [facility] [place] [facility] Outpatient Encounter [id number] 09/10 [place] [facility] [place] [facility] Outpatient Encounter [id number] 09/10 [place] [facility] [place] [facility] OFF/OP CNSLTJ NEW/EST MOD 40 [id number] Diagnos is: ICD-10- CM E66.09 Other obesity due to excess calorie s
HARSH ALVAREZ 09/11 [place] [facility] [place] [facility] Outpatient Encounter [id number] 09/25 [place] [place] [facility] ORTHC/PROS TC MGMT SBSQ ENC [id number] Diagnos is: ICD-10- CM E11.69 Type 2 diabete s mellitu s with other specifi ed complic ation<b r/> NICANOR HOYT S 09/28 [place] [facility] ORAL FUNCTION THERAPY [id number] Diagnos is: ICD-10- CM R13.12 Dysphag ia, orophar yngeal phase<b r/> LATRELL POOLE AN P 09/28 [place] [facility] [place] [facility] Outpatient Encounter [id number] MARYJO SCHOFIELD 10/08 [place] [facility] [place] [facility] Outpatient Encounter [id number] 10/11 [place] [facility] [place] [facility] Outpatient Encounter [id number] 10/16 [place] [facility] [place] [facility] OFFICE O/P EST MOD 30-39 MIN [id number] Diagnos is: ICD-10- CM E11.8 Type 2 diabete s mellitu s with unspeci fied complic ations< br/> JEN KINCAID AEL 11/06 [place] [facility] [place] [facility] Outpatient Encounter [id number] 11/11 [place] [facility] [place] [facility] OFFICE O/P EST MOD 30-39 MIN [id number] Diagnos is: ICD-10- CM F31.81 Bipolar II disorde r
Kayla PURI 11/19 [place] [facility] [place] [facility] Outpatient Encounter [id number] 11/19 [place] [facility] [place] [facility] Outpatient Encounter [id number] 12/14 [place] [facility] [place] [facility] Outpatient Encounter [id number] 12/17 [place] [facility] [place] [facility] Outpatient Encounter [id number] 12/28 [place] [facility] [place] [facility] TST EVAL PHYS/[place] [id number] Diagnos is: ICD-10- CM F03.A18 Unspeci fied dementi a, mild, with other behavio ral disturb
LYLES,JAMIE N 12/31 [place] [facility] [place] [facility] Outpatient Encounter [id number] 01/04 [place] [facility] [place] [facility] Outpatient Encounter [id number] 01/16 [place] [facility] [place] [facility] TST EVAL PHYS/QHP 1ST [id number] Diagnos is: ICD-10- CM F03.A18 Unspeci fied dementi a, mild, with other behavio ral disturb
LYLES,JAMIE N 01/17 [place] [facility] [place] [facility] Outpatient Encounter [id number] 01/24 [place] [facility] [place] [facility] Outpatient Encounter [id number] 01/29 [place] [facility] [place] [facility] OFFICE O/P EST LOW 20-29 MIN [id number] Diagnos is: ICD-10- CM M16.11 Unilate ral primary osteoar thritis , right hip<br/ > SOFIA VARELA 02/13 [place] [facility] [place] [facility] Outpatient Encounter [id number] 02/13 [place] [facility] [place] [facility] Outpatient Encounter [id number] 02/13 [place] [facility] [place] [facility] Outpatient Encounter [id number] 02/14 [facility] [place] [facility] Outpatient Encounter [id number] 02/20 [facility] [place] [facility] Outpatient Encounter [id number] 02/23 [facility] [place] [facility] ELECTROCAR DIOGRAM COMPLETE [id number] Diagnos is: ICD-10- CM Z13.6 Encount er for screeni ng for cardiov ascular disorde rs
Sabrina WILL 02/25 [facility] [place] [facility] OFFICE O/P EST MOD 30-39 MIN [id number] Diagnos is: ICD-10- CM Z01.818 Encount er for other preproc edural examina tion
RAFFI MG 02/25 [facility] [place] [facility] Outpatient Encounter [id number] 02/25 [facility] [place] [facility] Outpatient Encounter [id number] 02/28 [facility] [place] [facility] Outpatient Encounter [id number] 03/05 [facility] [place] [facility] PRO PHONE CALL 11-20 MIN [id number] Diagnos is: ICD-10- CM E11.8 Type 2 diabete s mellitu s with unspeci fied complic ations< br/> LUCY WHITLOCK I M 03/07 [facility] [place] [facility] Outpatient Encounter [id number] 03/07 [facility] [place] [facility] Outpatient Encounter [id number] 03/13 [facility] [place] [facility] Outpatient Encounter [id number] 04/05 [facility] [place] [facility] OFFICE O/P EST LOW 20-29 MIN [id number] Diagnos is: ICD-10- CM M16.11 Unilate ral primary osteoar thritis , right hip<br/ > PATITO FIGUEROA A 04/19 [facility] Outpatient Encounter [id number] 05/14 [facility] Outpatient Encounter [id number] 05/14 [facility] OFFICE O/P EST HI 40-54 MIN [id number] Diagnos is: ICD-10- CM F31.81 Bipolar II disorde r
Diego HONEYCUTT 05/20 [facility] Outpatient Encounter [id number] 06/04 [facility] SELF CARE MNGMENT TRAINING [id number] Diagnos is: ICD-10- CM F03.A4 Unspeci fied dementi a, mild, with anxiety
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 Social History Type Response Date Comment [facility] e Tobacco smoking status NY[place] PR-TOBACCO FORMER USER 08/15/2022 [facility] History of tobacco use PR-TOBACCO QUIT 1 5 YRS OR MORE 08/15/2022 [facility] History of tobacco use PR-TOBACCO FORMER USER 08/21/2021 [facility] History of tobacco use PR-TOBACCO FORMER USER 07/09/2018 [facility] History of tobacco use FORMER TOBACCO US ER 7Y OR GREATER 07/18/2017 [facility] History of tobacco use FORMER TOBACCO US ER 7Y OR GREATER 08/14/2016 [facility] History of tobacco use FORMER TOBACCO US ER 7Y OR GREATER 06/29/2015 [facility] History of tobacco use FORMER TOBACCO US ER 7Y OR GREATER 01/06/2014 [facility] History of tobacco use FORMER TOBACCO US ER 7Y OR GREATER 01/04/2012 [facility] Plan of Care List of future care activities from Department of Veterans Affairs facilities. Additional future care activities may be listed in the Assessment and Plan section. Date/Time Care Activity Care Activity Detail Facili ty 08/21/2023 AMBULATORY - PSYCHIATRY AMBULATORY - PSYC HIATRY [facility]
--- NOTE | 2023-08-14 09:42 | CRLHL7_ITS ---
For Patients: As a result of the Cures Act, medical imaging exams and procedure reports are released immediately into your electronic medical record. You may view this report before your referring provider. If you have questions, please contact your health care provider. Indication: FALL, HIP PAIN Technique: Single frontal view of the pelvis and frontal and lateral views of the right hip. Comparison: None. Findings/Impression: No acute fracture or malalignment. 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 No significant degenerative changes of the left femoral acetabular joint. Minimal degenerative changes of the visualized lower lumbar spine. No suspicious osseous lesions. Few pelvic phleboliths. No suspicious soft tissue abnormalities. Dictated by Sheng Pizano MD @ 08/14/2023 10:21:59 AM (Electronically Signed)
[2023-08-14 10:03] LABS: Basophils Absolute Auto 0.01 K/uL (0.00-0.30); Basophils Percent Auto 0.1 % (0.0-3.0); Eosinophils Absolute Auto 0.19 K/uL (0.00-0.50); Eosinophils Percent Auto 2.8 % (0.0-7.0); Hematocrit 35.4 % (37.0-53.0); Hemoglobin* 11.5 gm/dL (13.5-17.5); Immature Granulocytes Abs Auto 0.01 K/uL (0.00-0.30); Immature Granulocytes Pct Auto 0.1 %; Lymphocytes Percent Auto 25.2 % (20-44); Mean Corpuscular HGB Conc 33 gm/dL (32-36); Mean Corpuscular Hemoglobin 30 pg (26-34); Mean Corpuscular Volume 91 fL (80-100); Monocytes Percent Auto 10.8 % (0.0-11.0); Neutrophils Absolute Auto 4.11 K/uL (1.7-7.0); Platelet Count* 206 K/uL (140-440); RDW Coefficient of Variation % 13.9 % (11.5-15.5); Red Blood Count 3.88 m/uL (4.30-5.90); White Blood Count* 6.75 K/uL (4.50-11.00)
[2023-08-14 10:05] LABS: Slide Review Reflex No
[2023-08-14 10:17] LABS: Chloride* 103 mmol/L (96-114); Potassium* 4.6 mmol/L (3.6-5.1); Sodium* 140 mmol/L (135-149)
[2023-08-14 10:20] LABS: Anion Gap 3 mEq/L (7-15); Blood Urea Nitrogen* 23 mg/dL (7-30); Carbon Dioxide* 34 mmol/L (20-32); Est. Creatinine Clearance* 63.83; Estimated Glomerular Filt Rate 78 ml/min; Glucose* 123 mg/dL (60-115)
[2023-08-14 10:21] LABS: Calcium* 8.9 mg/dL (8.4-10.6)
--- NOTE | 2023-08-14 11:26 | PC.NURSE ---
Wrist splint provided to patient. States it feels very comfortable. Ambulated without difficulty. Requested a cab ride home. Will be here at 1145. All questions answered. Left via ambulatory.
== END 2023-08-14 11:27 | disposition home or self-care (01) ==
PROVIDERS: Emergency Provider Family Medicine
DX: M25.531 Pain in right wrist (principal); W19.XXXA Unspecified fall, initial encounter
CPT/HCPCS: 29125; 36415; 73110; 73502; 73562; 80048; 85025; 99283; 99284

== ENCOUNTER 2023-09-30 14:50 | Outpatient (CLI) | payer MEDICARE, MEDICAID, SELFPAY | END 2023-09-30 14:51 | disposition home or self-care (01) | LOC: AMB 10-10 00:58 | PROVIDERS: Visit Provider Emergency Medicine | DX: S09.93XA Unspecified injury of face, initial encounter (principal); W18.30XA Fall on same level, unspecified, initial encounter; Y92.099 Unspecified place in other non-institutional residence as the place of occurrence of the external cause | CPT/HCPCS: A0425; A0429 ==

== ENCOUNTER 2023-09-30 15:10 | Emergency (ER) | payer MEDICARE, MEDICAID, SELFPAY ==
[2023-09-30 15:23] VITALS: BP 119/76; PULSE 74; RESP 18; TEMP 36.6; O2SAT 99; BMI 25.8
--- NOTE | 2023-09-30 15:32 | CT_ITS ---
Final Report Patient: JUAN THOMPSON Facility:?[facility] Patient ID:?[id number] Site Patient ID:?[id number]. Site :?[id number] Study:?CT Head W/O-09/30/2023 4:08:37 PM Ordering Physician:STEFANIE Final Report: INDICATION: Fall TECHNIQUE: CT head without contrast. COMPARISON: Head CT 01/31/2022 FINDINGS: CSF spaces: Within normal limits for age. Brain parenchyma: The chaney-white differentiation is normal. No sign of mass, hemorrhage, or midline shift. Diffuse cerebral atrophy. Skull base and calvarium: Atherosclerosis. Opacified right ethmoid air cell. The visualized orbits are grossly unremarkable. No skull fractures. Left infraorbital subcutaneous hematoma. IMPRESSION: 1. Left infraorbital subcutaneous hematoma without evidence of fracture. No intracranial bleed. 2. Cerebral atrophy. Please note that all CT scans at this facility use dose modulation, iterative reconstruction, and/or weight-based dosing when appropriate to reduce radiation dose to as low as reasonably achievable. Dictated by Dominick Faulkner MD @ 09/30/2023 4:34:29 PM (Electronic Signature)
--- NOTE | 2023-09-30 15:32 | CT_ITS ---
Final Report Patient: JUAN THOMPSON Facility:?[facility] Patient ID:?[id number] Site Patient ID:?[id number]. Site :?[id number] Study:?CT Facial W/O-09/30/2023 4:09:42 PM Ordering Physician:STEFANIE Final Report: INDICATION: Fall with left facial swelling and pain TECHNIQUE: CT maxillofacial without contrast. COMPARISON: None FINDINGS: Facial bones: No fractures or bone lesions. Specifically the nasal bones, temporomandibular joints, maxilla and mandible appear intact. Orbits and globes: Unremarkable. Globes are intact. No sign of intraorbital hemorrhage or emphysema. Sinuses: Opacification right middle ethmoidal air cells. Soft tissues: Fat stranding and soft tissue density in the left buccal region consistent with hematoma. IMPRESSION: Left facial subcutaneous hematoma without evidence of facial fracture. Please note that all CT scans at this facility use dose modulation, iterative reconstruction, and/or weight-based dosing when appropriate to reduce radiation dose to as low as reasonably achievable. Dictated by Dominick Faulkner MD @ 09/30/2023 4:40:59 PM (Electronic Signature)
--- NOTE | 2023-09-30 15:33 | CT_ITS ---
Final Report Patient: JUAN THOMPSON Facility:?[facility] Patient ID:?[id number] Site Patient ID:?[id number] Site :?[id number] Study:?CT Spine Cervical W/O-09/30/2023 4:10:54 PM Ordering Physician:STEFANIE Final Report: INDICATION: Fall TECHNIQUE: CT cervical spine without contrast. COMPARISON: Cervical spine CT 01/31/2022 FINDINGS: Vertebrae: Alignment is normal. There are no fractures or suspicious bony lesions. Discs and facet joints: Facet hypertrophy C2-3 without significant stenosis. Facet hypertrophy C3-4 without significant stenosis. Facet hypertrophy with small posterior osteophytes at the C4-5 level without significant stenosis. Disc space narrowing with small marginal osteophytes and mild facet hypertrophy at C5-6 without significant stenosis. Facet hypertrophy at C6-7 and C7-T1 without significant stenosis. Extraspinal findings: Atherosclerosis. Left facial subcutaneous hematoma. IMPRESSION: Multilevel degenerative changes cervical spine without evidence of cervical spine fracture. Please note that all CT scans at this facility use dose modulation, iterative reconstruction, and/or weight-based dosing when appropriate to reduce radiation dose to as low as reasonably achievable. Dictated by Dominick Faulkner MD @ 09/30/2023 4:38:46 PM (Electronic Signature)
[2023-09-30 16:43] VITALS: BP 120/62; PULSE 77; RESP 18; O2SAT 100
--- NOTE | 2023-09-30 17:15 | ED.GENADULT ---
HPI - General Adult General Date Seen: 09/30/23 Chief complaint: Fall/Minor Trauma Stated complaint: fall Time Seen by Provider: 09/30/23 15:28 Source: patient, EMS and RN notes reviewed Mode of arrival: EMS Limitations: no limitations History of Present Illness HPI narrative: Patient is a very pleasant 77-year-old who lives at [address] [facility]. He had a fall last night, he says he stood up ?2 straight, lost his balance and fell. He hit the left side of his face on the ground, sustained a cut to his chin. He also has a skin tear on his right forearm. He has a small bruise by his left shoulder but says he does not have any pain there aside from his normal arthritis pain. He did not lose consciousness, he has some neck pain but says he always has neck pain. He comes in this afternoon, the delay he says attributed to stubbornness on his part, not wanting to come in. Related Data Home Medications Medication Instructions Recorded Confirmed apixaban 5 mg tablet (Eliquis) 5 mg PO BID 04/24/23 09/30/23 aripiprazole 15 mg tablet 15 mg PO QDAY 04/24/23 09/30/23 atorvastatin 10 mg tablet 10 mg PO QHS 04/24/23 09/30/23 bupropion HCl 150 mg 24 hr tablet, 150 mg PO QDAY 04/24/23 09/30/23 extended release calcium carbonate 500 mg-vitamin 2 tab PO BID 04/24/23 09/30/23 D3 3.125 mcg (125 unit) tablet cholecalciferol (vitamin D3) 25 2,000 unit PO DAILY 04/24/23 09/30/23 mcg (1,000 unit) tablet cyanocobalamin (vitamin B-12) 1,000 mcg PO DAILY 04/24/23 09/30/23 1,000 mcg tablet magnesium oxide 400 mg (241.3 mg 400 mg PO BID 04/24/23 09/30/23 magnesium) tablet metformin 500 mg tablet,extended 500 mg PO DAILY 04/24/23 09/30/23 release 24 hr metoprolol succinate 50 mg 50 mg PO QDAY 04/24/23 09/30/23 tablet,extended release 24 hr multivitamin 1 tab PO QDAY 04/24/23 09/30/23 mv-mn-folic 200 mcg-vit K 15 1 cap PO BID 04/24/23 09/30/23 mcg-lutein 5 mg-zeaxanthin 1 mg capsule (PreserVision AREDS 2 Plus Multivit) omeprazole 20 mg capsule,delayed 40 mg PO BID 04/24/23 09/30/23 release venlafaxine 150 mg 150 mg PO DAILY 04/24/23 09/30/23 capsule,extended release 24 hr ferrous sulfate 325 mg (65 mg 325 mg PO DAILY 09/30/23 09/30/23 iron) tablet (Daniel-Time) Allergies Allergy/AdvReac Type Severity Reaction Status Date / Time Sulfa (Sulfonamide Allergy Mild Rash Verified 09/30/23 15:29 Antibiotics) sulfamethoxazole Allergy Mild Rash Verified 09/30/23 15:29 trimethoprim Allergy Mild Rash Verified 09/30/23 15:29 Review of Systems Status of ROS: Reports: 10 or more systems reviewed and unremarkable except as noted in History and below PFSH PFSH Surgical History Hx of appendectomy ?Z90.49 - Acquired absence of other specified parts of digestive tract (ICD-10) History of carpal tunnel release ?Z98.890 - Other specified postprocedural states (ICD-10) Hx of cholecystectomy ?Z90.49 - Acquired absence of other specified parts of digestive tract (ICD-10) H/O submandibular gland removal ?Z98.890 - Other specified postprocedural states (ICD-10) ?Z90.89 - Acquired absence of other organs (ICD-10) Hx of hernia repair ?Z98.890 - Other specified postprocedural states (ICD-10) ?Z87.19 - Personal history of other diseases of the digestive system (ICD-10) Hx of tonsillectomy ?Z90.89 - Acquired absence of other organs (ICD-10) History of gastric bypass ?Z98.84 - Bariatric surgery status (ICD-10) Social History Smoking Status: Former smoker Do you use any of these nicotine containing products: None Second hand tobacco smoke exposure: No How often do you have a drink containing alcohol: monthly or less How many standard drinks containing alcohol do you have on a typical day: 1 or 2 How often do you have six or more drinks on one occasion: Never AUDIT-C Alcohol total score: 1 Non-prescribed substance use: denies use service: Yes Exam Narrative: Exam Narrative: Vital signs as noted above. In general, an alert, nontoxic elderly male. Head: Normocephalic. He has a 2 cm laceration on his chin with bleeding controlled. No jaw deformity or tenderness. He has significant bruising and swelling over his left cheek, no obvious bony deformity. Eyes: Pupils are equal reactive. Extraocular movements are full. Conjunctivae are normal. ENT: Mucous membranes are moist. Neck: Supple without lymphadenopathy. No midline tenderness. Heart: Regular rate and rhythm. No murmur or rub. Lungs: Clear bilaterally. No increased work of breathing, crackles or wheezes. Abdomen: Soft and nontender. No organomegaly. Extremities: Well perfused. No edema. No calf tenderness. Pulses intact. On the right forearm he has a skin tear, bleeding controlled. Neurologic: Patient is alert and oriented to person and place. Speech is fluent. Face is symmetric. Moves all extremities equally. Affect: Normal. Skin: Warm and dry. Well perfused. Const: Vital Signs, click to edit/add: Vital Signs - 24 hr 09/30/23 15:23 09/30/23 16:43 Temperature 97.9 F Pulse Rate [Pulse Oximeter] 74 77 Respiratory Rate 18 18 Blood Pressure [Ri ght Upper Arm] 119/76 120/62 Pulse Oximetry 99 100 Oxygen Delivery Me thod Room Air Documenting provider has reviewed patient's vital signs: yes Course Course ED Course: Patient had CT scans of the head, cervical spine and facial bones, all read as negative by Radiology for acute findings. Procedure note: The wound on his chin was anesthetized with lidocaine with epinephrine and then cleaned and explored, no evidence of foreign body or injury to deeper structures. I approximated the skin edges using 2 deep sutures with 5 0 Vicryl, then placed a total of for superficial simple interrupted sutures with 5 0 nylon. He tolerated this well, bleeding controlled, no immediate complication. The skin tear was cleaned and dressed. Patient feels well at this time, stable for discharge home. Suture removal in about 7 days, return any time for signs of infection. Vital Signs Vital signs: Initial Vital Signs Temperature 97.9 F 09/30/23 15:23 Temperature Source Temporal Artery Scan 09/30/23 15:23 Pulse Rate 74 09/30/23 15:23 Pulse Rhythm Regular 09/30/23 15:23 Pulse Strength 3+ Normal 09/30/23 15:23 Respiratory Rate 18 09/30/23 15:23 Blood Pressure 119/76 09/30/23 15:23 Blood Pressure Mean 90 09/30/23 15:23 Blood Pressure Position Semi-Fowlers 09/30/23 15:23 Pulse Oximetry 99 09/30/23 15:23 Oxygen Delivery Method Room Air 09/30/23 15:23 Vital Signs Temperature 97.9 F 09/30/23 15:23 Pulse Rate 74 09/30/23 15:23 Respiratory Rate 18 09/30/23 15:23 Blood Pressure 119/76 09/30/23 15:23 Pulse Oximetry 99 09/30/23 15:23 Oxygen Delivery Method Room Air 09/30/23 15:23 Temperature 97.9 F 09/30/23 15:23 Pulse Rate 77 09/30/23 16:43 Respiratory Rate 18 09/30/23 16:43 Blood Pressure 120/62 09/30/23 16:43 Pulse Oximetry 100 09/30/23 16:43 Oxygen Delivery Method Room Air 09/30/23 15:23 Discharge Plan Discharge Clinical Impression: Skin tear of right forearm without complication, Chin laceration, Contusion of multiple sites Patient Disposition: Home, Self-Care Condition: Improved Instructions: Laceration (ED), Skin Tear (ED) Additional Instructions: Your CT scans do not show any evidence of broken bones. The stitches in your chin should be taken out in about 7 days. If you develop signs of infection such as significant increased redness, swelling or pain, you should be seen again. Tylenol and ice as needed for areas of bruising/swelling. Prescriptions: No Action cholecalciferol (vitamin D3) 25 mcg (1,000 unit) tablet 2,000 unit PO DAILY cyanocobalamin (vitamin B-12) 1,000 mcg tablet 1,000 mcg PO DAILY multivitamin Tablet 1 tab PO QDAY venlafaxine 150 mg capsule,extended release 24hr 150 mg PO DAILY PreserVision AREDS 2 Plus MV 200 mcg-15 mcg- 5 mg-1 mg capsule 1 cap PO BID magnesium oxide 400 mg (241.3 mg magnesium) tablet 400 mg PO BID omeprazole 20 mg capsule,delayed release(DR/EC) 40 mg PO BID calcium carbonate-vitamin D3 500 mg-3.125 mcg (125 unit) tablet 2 tab PO BID metformin 500 mg tablet extended release 24 hr 500 mg PO DAILY Eliquis 5 mg tablet 5 mg PO BID aripiprazole 15 mg tablet 15 mg PO QDAY atorvastatin 10 mg tablet 10 mg PO QHS bupropion HCl 150 mg tablet extended release 24 hr 150 mg PO QDAY metoprolol succinate 50 mg tablet extended release 24 hr 50 mg PO QDAY ferrous sulfate [Daniel-Time] 325 mg (65 mg iron) tablet 325 mg PO DAILY Follow Up/Referrals: Provider,Not a Local [Primary Care Provider] - Stand Alone Forms: [facility] Info Instructions
== END 2023-09-30 17:24 | disposition home or self-care (01) ==
PROVIDERS: Emergency Provider Emergency Medicine
DX: S01.81XA Laceration without foreign body of other part of head, initial encounter (principal); S51.811A Laceration without foreign body of right forearm, initial encounter; W18.30XA Fall on same level, unspecified, initial encounter
CPT/HCPCS: 12051; 70450; 70486; 72125; 99284; 99285

== ENCOUNTER 2024-03-02 10:24 | Outpatient (RCR) | payer MEDICAID, SELFPAY | END 2025-02-26 08:17 | disposition home or self-care (01) | LOC: MOW 10:24 | PROVIDERS: PCP Hospitalist; Visit Provider Hospitalist | DX: Z76.0 Encounter for issue of repeat prescription (principal) | CPT/HCPCS: S5170 ==

== ENCOUNTER 2024-07-06 13:22 | Outpatient (CLI) | payer MEDICARE, MEDICAID, SELFPAY | END 2024-07-06 13:23 | disposition home or self-care (01) | LOC: AMB 07-11 06:55 | PROVIDERS: PCP Hospitalist; Visit Provider Family Medicine | DX: M79.605 Pain in left leg (principal); R22.42 Localized swelling, mass and lump, left lower limb | CPT/HCPCS: A0425; A0427 ==

== ENCOUNTER 2024-07-06 13:55 | Emergency (ER) | payer MEDICARE, MEDICAID, SELFPAY ==
[2024-07-06 14:00] VITALS: BP 127/73; PULSE 59; RESP 16; TEMP 36.8; O2SAT 98; BMI 24.4
--- NOTE | 2024-07-06 15:59 | ED.GENADULT ---
HPI - General Adult General Time Seen by Provider: 15:59 Date Seen: 07/06/24 Chief complaint: Lower Extremity Swelling Stated complaint: illness Time Seen by Provider: 07/06/24 15:59 Source: patient, family, EMS and RN notes reviewed Mode of arrival: EMS Limitations: no limitations History of Present Illness HPI narrative: This 78-year-old male is coming into the ER with concern of bilateral lower extremity swelling, he reports left is worse than right. He issues feel little tight but he notes no pain in his lower extremities. He has had bilateral hip and bilateral knee replacements. [facility], he contacted them and they told him to come to the ER. His son called 911 to have him come in. Right now he is here alone when I see him. He notes he is lost about 100 lb over the last year so, he was following the [place] diet to do this. He does have underlying atrial fibrillation and is chronically anticoagulated with Eliquis, states he has been taking it twice a day and is not missing doses. He states he has had a history of bronchiectasis, is not maintained on any chronic inhalers. He believes there is probably some scarring in his lungs. He is able to lie flat, sleeping okay. He baseline note some shortness of breath and some dyspnea on exertion but can not say that it is worse at this time. He is concerned maybe about congestive heart failure given the swelling in his legs. He did tell nursing staff that he had a little chest pain. He tells me that he gets twinges of chest pain, this is been happening maybe for years. He has no pain right now. It may not happen every day. He also has a history of type 2 diabetes, chart states he has COPD. He notes no illness at this time. Medications reviewed. Related Data Home Medications ?Medication ?Instructions ?Recorded ?Confirmed apixaban 5 mg tablet (Eliquis) 5 mg PO BID 04/24/23 07/06/24 aripiprazole 15 mg tablet 15 mg PO QDAY 04/24/23 07/06/24 atorvastatin 10 mg tablet 10 mg PO QHS 04/24/23 07/06/24 bupropion HCl 150 mg 24 hr tablet, 150 mg PO QDAY 04/24/23 07/06/24 extended release calcium 500 mg (as 2 tab PO BID 04/24/23 07/06/24 carbonate)-vitamin D3 3.125 mcg (125 unit) tablet cholecalciferol (vitamin D3) 25 2,000 unit PO DAILY 04/24/23 07/06/24 mcg (1,000 unit) tablet cyanocobalamin (vitamin B-12) 1,000 mcg PO DAILY 04/24/23 07/06/24 1,000 mcg tablet magnesium oxide 400 mg (241.3 mg 400 mg PO BID 04/24/23 07/06/24 magnesium) tablet metformin 500 mg tablet,extended 500 mg PO DAILY 04/24/23 07/06/24 release 24 hr metoprolol succinate 50 mg 50 mg PO QDAY 04/24/23 07/06/24 tablet,extended release 24 hr multivitamin 1 tab PO QDAY 04/24/23 07/06/24 mv-mn-folic 200 mcg-vit K 15 1 cap PO BID 04/24/23 07/06/24 mcg-lutein 5 mg-zeaxanthin 1 mg capsule (PreserVision AREDS 2 Plus Multivit) omeprazole 20 mg capsule,delayed 40 mg PO BID 04/24/23 07/06/24 release venlafaxine 150 mg 150 mg PO DAILY 04/24/23 07/06/24 capsule,extended release 24 hr ferrous sulfate 325 mg (65 mg 325 mg PO DAILY 09/30/23 07/06/24 iron) tablet (Daniel-Time) Previous Rx's ?Medication ?Instructions ?Recorded furosemide 20 mg tablet 20 mg PO DAILY #3 tabs 07/06/24 Allergies Allergy/AdvReac Type Severity Reaction Status Date / Time Sulfa (Sulfonamide Allergy Mild Rash Verified 07/06/24 14:07 Antibiotics) sulfamethoxazole Allergy Mild Rash Verified 07/06/24 14:07 trimethoprim Allergy Mild Rash Verified 07/06/24 14:07 Review of Systems Status of ROS: Reports: 6 or more systems reviewed and unremarkable except as noted in History and below [facility] Surgical History Hx of appendectomy ?Z90.49 - Acquired absence of other specified parts of digestive tract (ICD-10) History of carpal tunnel release ?Z98.890 - Other specified postprocedural states (ICD-10) Hx of cholecystectomy ?Z90.49 - Acquired absence of other specified parts of digestive tract (ICD-10) H/O submandibular gland removal ?Z98.890 - Other specified postprocedural states (ICD-10) ?Z90.89 - Acquired absence of other organs (ICD-10) Hx of hernia repair ?Z98.890 - Other specified postprocedural states (ICD-10) ?Z87.19 - Personal history of other diseases of the digestive system (ICD-10) Hx of tonsillectomy ?Z90.89 - Acquired absence of other organs (ICD-10) History of gastric bypass ?Z98.84 - Bariatric surgery status (ICD-10) Social History Smoking Status: Former smoker Do you use any of these nicotine containing products: None Second hand tobacco smoke exposure: No How often do you have a drink containing alcohol: monthly or less How many standard drinks containing alcohol do you have on a typical day: 1 or 2 How often do you have six or more drinks on one occasion: Never AUDIT-C Alcohol total score: 1 Non-prescribed substance use: denies use service: Yes Exam Const: Vital Signs, click to edit/add: Vital Signs - 24 hr 07/06/24 14:00 07/06/24 16:39 Temperature 98.3 F Pulse Rate 65 Pulse Rate [Pulse Oximeter] 59 L Respiratory Rate 16 14 Blood Pressure [Ri ght Upper Arm] 127/73 Pulse Oximetry 98 98 Oxygen Delivery Me thod Room Air This 78-year-old male is alert, interactive, no apparent distress. He is sitting up in the chair in the room. Able speak in complete sentences. Neck supple, no masses or jugular venous distension noted. Lungs are clear, good air entry, no wheezing or crackles. Heart rate sounds mostly regular but is slower, certainly no murmur, normal S1-S2. Abdomen soft, nontender. He has about 3+ bilateral lower extremity edema, hemosiderin staining about shelter up both of his legs. They are both symmetrically swollen, does extend down into the feet. He has normal sensation distally, still feel good dorsalis pedis pulses bilaterally. Do not appreciate any secondary areas of infection, definitely seems to have chronic pigmentary changes that would suggest chronic edema. Documenting provider has reviewed patient's vital signs: yes Course Course ED Course: This 78-year-old male is coming in with lower extremity edema, is not supporting significant respiratory symptoms. The chest symptoms he is reporting are short, sharp and fleeting, have been recurrent for potentially years. We still will do a troponin and a baseline EKG given the edema. He does have peripheral edema, could be some right heart failure developing but he has no respiratory symptoms at this time and is hemodynamically stable. Both legs are edematous and looked to be of similar size. I a note no evidence of any infectious etiology like cellulitis. Will get a portable chest x-ray to look at the lung parenchyma and full complement of labs. Reevaluation(s) Time of Reevaluation #1: 17:51 Reevaluation #1: Reviewed with patient that his chest x-ray, labs are all reassuring. He definitely has peripheral edema of his lower extremities but no evidence of congestive heart failure. We discussed using compression stockings which he the stated that he had. 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 He would like to try the diuretic. His kidney function should allow this but will only provide few days worth and to follow up with primary provider bailey. Vital Signs Vital signs: Initial Vital Signs Temperature 98.3 F 07/06/24 14:00 Temperature Source Temporal Artery Scan 07/06/24 14:00 Pulse Rate 59 L 07/06/24 14:00 Respiratory Rate 16 07/06/24 14:00 Blood Pressure 127/73 07/06/24 14:00 Blood Pressure Mean 91 07/06/24 14:00 Blood Pressure Position Sitting 07/06/24 14:00 Pulse Oximetry 98 07/06/24 14:00 Oxygen Delivery Method Room Air 07/06/24 14:00 Vital Signs Temperature 98.3 F 07/06/24 14:00 Pulse Rate 59 L 07/06/24 14:00 Respiratory Rate 16 07/06/24 14:00 Blood Pressure 127/73 07/06/24 14:00 Pulse Oximetry 98 07/06/24 14:00 Oxygen Delivery Method Room Air 07/06/24 14:00 Temperature 98.3 F 07/06/24 14:00 Pulse Rate 65 07/06/24 16:39 Respiratory Rate 14 07/06/24 16:39 Blood Pressure 127/73 07/06/24 14:00 Pulse Oximetry 98 07/06/24 16:39 Oxygen Delivery Method Room Air 07/06/24 14:00 Medical Decision Making Lab Data Lab results reviewed: Yes I reviewed the patient's lab results Lab results narrative: Hemoglobin has been in the 11 range since 2022 and is currently stable. Labs: Lab Results 07/06/24 Range/Units 16:29 WBC 5.44 (4.50-11.00) K/uL RBC 3.82 L (4.30-5.90) m/uL Hgb 11.1 L (13.5-17.5) gm/dL Hct 35.3 L (37.0-53.0) % MCV 92 (80-100) fL MCH 29 (26-34) pg MCHC 31 L (32-36) gm/dL RDW Coeff of Maurice 13.8 (11.5-15.5) % Plt Count 259 (140-440) K/uL Neut % (Auto) 48.7 (42.0-72.0) % Lymph % (Auto) 33.5 (20-44) % Vermilion % (Auto) 12.1 H (0.0-11.0) % Eos % (Auto) 5.3 (0.0-7.0) % Baso % (Auto) 0.4 (0.0-3.0) % Neut # (Auto) 2.65 (1.7-7.0) K/uL Lymph # (Auto) 1.82 (0.90-2.90) K/uL Vermilion # (Auto) 0.70 (0.00-0.90) K/UL Eos # (Auto) 0.29 (0.00-0.50) K/uL Baso # (Auto) 0.02 (0.00-0.30) K/uL Abs Immat Gran (auto) 0.00 (0.00-0.30) K/uL Imm/Tot Granulo (auto) 0.0 % Sodium 139 (135-149) mmol/L Potassium 4.1 (3.6-5.1) mmol/L Chloride 102 (96-114) mmol/L Carbon Dioxide 33 H (20-32) mmol/L Anion Gap 4 L (7-15) mEq/L BUN 27 (7-30) mg/dL Creatinine 0.9 (0.5-1.5) mg/dL Estimated Creat Clear 64.89 Estimated GFR 89 ml/min Glucose 134 H (60-115) mg/dL Lactate 1.1 (0.5-1.9) mmol/L Calcium 9.5 (8.4-10.6) mg/dL Total Bilirubin 0.2 (0.1-1.5) mg/dL AST 21 (12-35) U/L ALT 16 (4-50) U/L Alkaline Phosphatase 77 (40-150) U/L Troponin I < 0.01 L (0.01-0.04) ng/mL C-Reactive Protein < 0.5 L (0.5-1.0) mg/dL NT-Pro-B Natriuret Pep 211 pg/mL Total Protein 6.3 (6.0-8.3) g/dL Albumin 4.1 (3.3-5.0) g/dL Imaging Data Chest x-ray: Attestation: I have reviewed the pertinent imaging results. My impression: I see no acute pathology on my preliminary review, await radiology over read. Radiologist's impression: Patient: JUAN THOMPSON Facility:?[facility] Patient ID:?[id number] Site Patient ID:?[id number]. Site :?[id number] Study:?XRay-Chest PORTABLE-07/06/2024 4:26:22 PM Ordering Physician:Renu Pandya Final Report: INDICATION: Cough. TECHNIQUE: Chest 1 views. COMPARISON: April 11, 2023. FINDINGS: Cardiovascular and mediastinum: Heart size and vasculature are normal in caliber and appearance. Lungs and pleural spaces: Lungs are clear. No sign of infiltrate or mass. No sign of pleural effusion. No pneumothorax. Bones and soft tissues: No significant findings. IMPRESSION: No acute or significant findings. No change. Dictated by Roosevelt Berg MD @ 07/06/2024 5:04:06 PM (Electronic Signature) ECG Data Attestation: I personally reviewed and interpreted this ECG as follows: (Atrial fibrillation, low-voltage, rate 62 beats per minute. No evidence of any active ischemia or definitive infarct, some artifact noted.) Prior ECG tracings: available for review (Prior EKG reportedly sinus tachycardia, 102 beats per minute, from March of 2023.) Discharge Plan Discharge Clinical Impression: Bilateral edema of lower extremity Patient Disposition: Home, Self-Care Condition: Stable Instructions: Leg Edema (ED) Additional Instructions: There is no evidence of congestive heart failure this evening but you definitely do have lower extremity edema. Some of the pigmentary changes in your lower extremities really does point to chronic underlying edema and can come from venous insufficiency. I do recommend wearing the knee high compression stockings daily, can come off at night. When you are resting, try to keep your lower legs up and elevate them, this helps to prevent edema. Have written for a couple days of diuretic use, take tomorrow morning. Need to follow-up with your primary care provider as soon as possible. Activity Level: Activity as Tolerated Prescriptions: New furosemide 20 mg tablet 20 mg PO DAILY Qty: 3 0RF No Action cholecalciferol (vitamin D3) 25 mcg (1,000 unit) tablet 2,000 unit PO DAILY cyanocobalamin (vitamin B-12) 1,000 mcg tablet 1,000 mcg PO DAILY multivitamin Tablet 1 tab PO QDAY venlafaxine 150 mg capsule,extended release 24hr 150 mg PO DAILY PreserVision AREDS 2 Plus MV 200 mcg-15 mcg- 5 mg-1 mg capsule 1 cap PO BID magnesium oxide 400 mg (241.3 mg magnesium) tablet 400 mg PO BID omeprazole 20 mg capsule,delayed release(DR/EC) 40 mg PO BID calcium carbonate-vitamin D3 500 mg-3.125 mcg (125 unit) tablet 2 tab PO BID metformin 500 mg tablet extended release 24 hr 500 mg PO DAILY Eliquis 5 mg tablet 5 mg PO BID aripiprazole 15 mg tablet 15 mg PO QDAY atorvastatin 10 mg tablet 10 mg PO QHS bupropion HCl 150 mg tablet extended release 24 hr 150 mg PO QDAY metoprolol succinate 50 mg tablet extended release 24 hr 50 mg PO QDAY ferrous sulfate [Daniel-Time] 325 mg (65 mg iron) tablet 325 mg PO DAILY Follow Up/Referrals: Sonia Ordaz MD [Primary Care Provider] - Stand Alone Forms: [facility] Info Instructions
--- NOTE | 2024-07-06 16:11 | CRLHL7_ITS ---
For Patients: As a result of the Cures Act, medical imaging exams and procedure reports are released immediately into your electronic medical record. You may view this report before your referring provider. If you have questions, please contact your health care provider. INDICATION: Cough. TECHNIQUE: Chest 1 views. COMPARISON: April 11, 2023. FINDINGS: Cardiovascular and mediastinum: Heart size and vasculature are normal in caliber and appearance. Lungs and pleural spaces: Lungs are clear. No sign of infiltrate or mass. No sign of pleural effusion. No pneumothorax. Bones and soft tissues: No significant findings. IMPRESSION: No acute or significant findings. No change. Dictated by Roosevelt Berg MD @ 07/06/2024 5:04:06 PM (Electronically Signed)
--- OUTSIDE RECORDS SUMMARY | 2024-07-06 16:16 | XMS_ITS | Encounter Summary ---
Author Name [facility] [facility] [place] Address [address] [facility] 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 Date/Time Encounter Type Encounter Description Reason Provider Source Jul 11, 2023 10:00 AM OFFICE O/P EST MOD 30-39 MIN ENDOCRINOLOGY ICD-10-CM E66.3 Overweight RAF ALVAREZ Kayla [facility] Encounter Template Text not used by [place] Assessments - Encounter Diagnoses This section includes the primary and secondary diagnoses documented for the Encounter. Date/Time Primary/Secondary Diagnosis Diagnosis Name Provider Source Jul 15, 2023 11:19 AM PRIMARY Overweight RAF ALVAREZ SHARONA Garza [facility] Jul 15, 2023 11:19 AM SECONDARY Bariatric surgery status RAF ALVAREZ [facility] Jul 15, 2023 11:19 AM SECONDARY Type 2 diabetes mellitus without complications RAF ALVAREZ [facility] Plan of Treatment: Future Appointments (+ 6 months) and Future Tests (+/- 45 days) The Plan of Treatment section includes future care activities for the patient from [facility] [place] [facility] This section includes future appointments [...] 2023 10:30 AM AMBULATORY [place] [facility] Aug 21, 2023 11:15 AM [place]IC[place] [facility] Aug 21, 2023 01:30 PM AMBUL[place]ORY - NONE [place] [facility] Sep 28, 2023 07:00 AM AMBULATORY - NONE [place] [facility] Oct 02, 2023 07:00 AM AMBUL[place]ORY - [place]ONE [place] [facility] Oct 03, 2023 08:30 AM AMBULATORY - [place] [facility] Oct 09, 2023 09:00 AM AMBUL[place]ORY - NONE [place] [facility] Oct 09, 2023 10:00 AM AM[place]ORY [place]ICINE [place] [facility] Nov 07, 2023 09:30 AM [place]ORY - [place]ICINE [place] [facility] Nov 07, 2023 10:30 AM AMB[place]ORY - [place]ICINE [place] [facility] Nov 07, 2023 11:30 AM AMBUL[place]ORY [place]RY [place] [facility] Nov 07, 2023 11:45 AM [place]ORY [place]ICINE [place] [facility] Nov 20, 2023 09:00 AM AMBUL[place]ORY [place]UROLOG[place] [facility] December 05, 2023 09:30 AM [facility] Active, Pending, and Scheduled Orders [...] data comes from all [facility]. Test Date/Time Test Type Test Details Facility Name Aug 15, 2023 12:00 AM Laboratory - Chemi stry Order BASIC METABOLIC PANEL+MG PLASMA [facility] Aug 15, 2023 12:00 AM Laboratory - Chemi stry Order HEMOGLOBIN A1C BLOOD [facility] Aug 15, 2023 12:00 AM Laboratory - Chemi stry Order CBC BLOOD [facility] Aug 21, 2023 04:02 PM Laboratory - Chemi stry Order URINALYSIS URINE ER STAT WC ONCE [facility] Lab Results: +/- 30 [...] Range Comment Jul 11, 2023 10:38 AM [facility] BASIC METABOLIC PANEL+MG Specimen Type: PLASMA No comment entered. Ordering Provider: ISAEL ALVAREZ Report Released Date/Time: Jul 11, 2023 10:23 AM Reporting Lab: [facility] [phone] Performing Lab: [facility] [phone] CREATININE 1.2 mg/dL 0.7-1.2 UREA NITROGEN 22 mg/dL 8-26 GLUCOSE 193 mg/dL H 70-100 SODIUM 143 mmol/L 136-145 POTASSIUM 3.7 mmol/L 3.5-5.1 CHLORIDE 108 mmol/L H 98-107 CO2 28 mmol/L 22-29 CALCIUM 9.2 mg/dL 8.4-10.2 MAGNESIUM 1.8 mg/dL 1.6-2.6 ANION GAP 7 mmol/L 5-15 .CREAT EGFR(CKD-EPI ) 63 >60 Jul 11, 2023 10:37 AM [facility] VITAMIN A Specimen Type: SERUM Comment: Vitamin supplementation within 24 hours prior to blood draw may affect the accuracy of the results. This test was developed and its analytical performance characteristics have been determined by [facility] [place] [place]. It has not been cleared or approved by the U.S. Food and Drug Administration. This assay has been validated pursuant to the CLIA regulations and is used for clinical purposes. Test Performed by [facility] [place], [address] [place] [address] Devante Meyer M.D., Ph.D., Director of Laboratories , CLIA [id number] Ordering Provider: ISAEL ALVAREZ Report Released Date/Time: Jul 11, 2023 10:23 AM Reporting Lab: [facility] [id number] Performing Lab: [address] VITAMIN A 53 ug/dL 38-98 Jul 11, 2023 10:37 AM [facility] VITAMIN B-1,BLOOD Specimen Type: BLOOD Comment: Vitamin supplementation within 24 hours prior to blood draw may affect the accuracy of the results. This test was developed and its analytical performance characteristics have been determined by [facility] [place] [place]. It has not been cleared or approved by the U.S. Food and Drug Administration. This assay has been validated pursuant to the CLIA regulations and is used for clinical purposes. Test Performed by [facility], [facility], [address] [place] [address] Devante Meyer M.D., Ph.D., Director of Laboratories , CLIA [id number] Ordering Provider: ISAEL ALVAREZ Report Released Date/Time: Jul 11, 2023 10:23 AM Reporting Lab: [facility] [phone] Performing Lab: [address] VITAMIN B-1,BLOOD 132 nmol/L 78-185 Jul 11, 2023 10:37 AM [facility] ZINC Specimen Type: SERUM Comment: This test was developed and its analytical performance characteristics have been determined by [facility] [place] [place]. It has not been cleared or approved by the U.S. Food and Drug Administration. This assay has been validated pursuant to the CLIA regulations and is used for clinical purposes. Test Performed by [facility] [place], [address] [place] [address] Devante Meyer M.D., Ph.D., Director of Laboratories , CLIA [id number] Ordering Provider: ISAEL ALVAREZ Report Released Date/Time: Jul 11, 2023 10:23 AM Reporting Lab: [facility] [phone] Performing Lab: [address] ZINC 78 ug/dL 60-130 Jul 11, 2023 10:37 AM [facility] COPPER Specimen Type: PLASMA Comment: This test was developed and its analytical performance characteristics have been determined by [facility] [place] [place]. It has not been cleared or approved by the U.S. Food and Drug Administration. This assay has been validated pursuant to the CLIA regulations and is used for clinical purposes. Test Performed by [facility] [place], [address] [place] [address] Devante Meyer M.D., Ph.D., Director of Laboratories , CLIA [id number] Ordering Provider: ISAEL ALVAREZ Report Released Date/Time: Jul 11, 2023 10:23 AM Reporting Lab: [facility] [phone] Performing Lab: [address] COPPER 81 ug/dL 70-175 Jul 11, 2023 10:37 AM [facility] HEMOGLOBIN A1C [...] Jul 11, 2023 10:23 AM Reporting Lab: [facility] [phone] Performing Lab: [facility] [phone] HEMOGLOBIN A1C 6.5 H 4.0-6.0 Jul 11, 2023 10:37 AM [facility] FERRITIN Specimen Type: SERUM No comment entered. Ordering Provider: ISAEL ALVAREZ Report Released Date/Time: Jul 11, 2023 10:23 AM Reporting Lab: [facility] [phone] Performing Lab: [facility] [address] FERRITIN 66.0 ng/mL 21.8-274.7 Jul 11, 2023 10:37 AM [facility] LIPID PANEL,NON-FASTING [...] Jul 11, 2023 10:23 AM Reporting Lab: [facility] [phone] Performing Lab: [facility] Jul 11, 2023 10:37 AM [facility] PRE-ALBUMIN Specimen Type: SERUM No comment entered. Ordering Provider: ISAEL ALVAREZ Report Released Date/Time: Jul 11, 2023 10:23 AM Reporting Lab: [facility] [phone] Performing Lab: [facility] [address] PRE-ALBUMIN 22.5 mg/dL 14.0-45.0 Jul 11, 2023 10:37 AM [facility] FOLATE Specimen Type: SERUM No comment entered. Ordering Provider: ISAEL ALVAREZ Report Released Date/Time: Jul 11, 2023 10:23 AM Reporting Lab: [facility] [phone] Performing Lab: [facility] [address] FOLATE 17.8 ng/mL >7.0 Jul 11, 2023 10:37 AM [facility] B 12 Specimen Type: PLASMA No comment entered. Ordering Provider: ISAEL ALVAREZ Report Released Date/Time: Jul 11, 2023 10:23 AM Reporting Lab: [facility] [address] Performing Lab: [facility] [address] B 12 1016 pg/mL H 213-816 Jul 11, 2023 10:37 AM [facility] CBC Specimen Type: BLOOD No comment entered. Ordering Provider: ISAEL ALVAREZ Report Released Date/Time: Jul 11, 2023 10:23 AM Reporting Lab: [facility] [phone] Performing Lab: [facility] [phone] WBC 7.56 10*3/uL 4.0-11.0 RBC 4.25 10*6/uL L 4.6-6.2 HGB 12.5 g/dL L 13.5-17.9 HCT 39.1 L 41-54 MCV 92.0 fL 80-100 MCH 29.4 pg 27-33 MCHC 32.0 g/dL 32.0-37.5 PLT 249 10*3/uL 150-400 MPV 9.8 fL 7.4-10.4 RDW 14.6 H 11.5-14.5 Jul 11, 2023 10:37 AM [facility] VIT D 25-OH,TOTAL Specimen Type: SERUM No comment entered. Ordering Provider: ISAEL ALVAREZ Report Released Date/Time: Jul 11, 2023 10:23 AM Reporting Lab: [facility] [phone] Performing Lab: [facility] [phone] VIT D 25-OH,TOTAL 68 ng/mL H 12-50 Jul 11, 2023 10:37 AM [facility] IRON GROUP [...] Jul 11, 2023 10:23 AM Reporting Lab: [facility] [phone] Performing Lab: [facility] Jul 11, 2023 10:37 AM [facility] MAGNESIUM Specimen Type: PLASMA No comment entered. Ordering Provider: ISAEL ALVAREZ Report Released Date/Time: Jul 11, 2023 10:23 AM Reporting Lab: [facility] [phone] Performing Lab: [facility] [address] MAGNESIUM 1.7 mg/dL 1.6-2.6 Jul 11, 2023 10:37 AM [facility] PTH-N-TACT Specimen Type: SERUM No comment entered. Ordering Provider: ISAEL ALVAREZ Report Released Date/Time: Jul 11, 2023 10:23 AM Reporting Lab: [facility] [phone] Performing Lab: [facility] [address] PTH-N-TACT 30.3 pg/mL 8.7-77.1 Jul 11, 2023 10:37 AM [facility] CALCIUM Specimen Type: PLASMA No comment entered. Ordering Provider: ISAEL ALVAREZ Report Released Date/Time: Jul 11, 2023 10:23 AM Reporting Lab: [facility] [phone] Performing Lab: [facility] [address] CALCIUM 9.2 mg/dL 8.4-10.2 Vital Signs: All taken on the encounter date This section contains inpatient and outpatient Vital Signs collected on the date of the Encounter. Date/Time Temperature Pulse Blood Pressure Respiratory Rate SP02 Pain Height Weight Body Mass Index Source Jul 11, 2023 09:58 AM 97.4 F 97 /min 104/71 mm[Hg] 16 /min 99 % 4 184.3 lb 28 [facility] Social History: Smoking Status (Most current) [...] OR GREATE R [facility] Encounter Notes: All [...] [address], NIKKI MOVE! Dietitian for TIMOTHY Cox TAMMY --- [...] for the followin. Essential hypertension (SNOMED CT 16599630) 2. Major depressive disorder (SNOMED CT 715613145) 3. Generalized anxiety disorder (SNOMED CT 71564091) 4. Primary Obesity 5. Bronchiectasis (SNOMED CT 76579024) 6. Gastroesophageal reflux disease (SNOMED CT 550362702) 7. Bariatric Surgery Status 8. Cataracts (SNOMED CT 51458872) 9. Hypermetropia/Hyperopia 10. Astigmatism, Unspec 11. Presbyopia 12. Atrial fibrillation (SNOMED CT 16122699) 13. Varicose veins of lower extremity 14. Compulsive gambling [facility]. [facility] 16. Mild cognitive disorder 17. Type 2 [...] MD PHYSICIAN Signed: 07/15/2023 11:19 ISAEL ALVAREZ [facility] Jul 15, 2023 10:54 AM LETTERS: LOCAL TITLE: FOLLOW UP RESULTS LETTER STANDARD TITLE: LETTERS DATE OF NOTE: JUL 15, 2023@10:54 ENTRY DATE: JUL 15, 2023@10:54:51 AUTHOR: ISAEL ALVAREZ EXP COSIGNER: URGENCY: STATUS: COMPLETED [facility] [address] [place] [address] Jun JUAN THOMPSON [address] [facility] [address] Dear [place]: I am writing to inform you of the results of the tests you had done at the [facility]. The tests below were performed and are [...] staff or me at the following number: [phone]. Sincerely, ISAEL ALVAREZ MD PHYSICIAN ISAEL ALVAREZ [facility] Jul 11, 2023 10:07 AM ENDOCRINOLOGY ATTE SHELLIE NOTE: LOCAL TITLE: [...] for the followin. Essential hypertension (SNOMED CT 09124037) 2. Major depressive disorder (SNOMED CT 182610966) 3. Generalized anxiety disorder (SNOMED CT 33473578) 4. Primary Obesity 5. Bronchiectasis (SNOMED CT 32138189) 6. Gastroesophageal reflux disease (SNOMED CT 548165697) 7. Bariatric Surgery Status 8. Cataracts (SNOMED CT 56678736) 9. Hypermetropia/Hyperopia 10. Astigmatism, Unspec 11. Presbyopia 12. Atrial fibrillation (SNOMED CT 00311959) 13. Varicose veins of lower extremity 14. Compulsive gambling 15. Bipolar disorder (SNOMED CT 32323418) 16. Mild cognitive disorder 17. Type 2 [...] ISAEL ALVAREZ MD PHYSICIAN Signed: 07/15/2023 11:19 07/18/2023 ADDENDUM STATUS: COMPLETED lab results letter sent to pt--will alert Timothy Moontrinity here by way of co-sign to please review that with him and review the nutritional supplement doses he is currently taking as well as recommendations for adjustments. thanks for your input. /aneesh ALVAREZ MD PHYSICIAN Signed: 07/18/2023 20:23 Receipt Acknowledged By: 07/24/2023 09:09 /pablo/ MILY [address], LD MOVE! Dietitian for TIMOTHY MUNOZ 07/24/2023 ADDENDUM STATUS: COMPLETED Attempted to reach to discuss iron supplementation. Left voicemail with call back number. /pablo/ MILY [address], NIKKI MOVE! Dietitian Signed: 07/24/2023 15:37 ISAEL ALVAREZ [facility] Jul 11, 2023 09:59 AM INTERNAL MEDICINE [...] outside medications or herbals. Diabetes/Metabolic Clinic Glucometer: [place] did not bring glucometer to appointment /pablo/ NATHALIE MCCLELLAN LPN Licensed Practical Nurse Signed: 07/11/2023 10:00 NATHALIE MCCLELLAN [facility]
--- OUTSIDE RECORDS SUMMARY | 2024-07-06 16:16 | XMS_ITS | Continuity of Care Document ---
Author Name [facility] Organization [facility] Care Team Providers Care Head Kiln Operator Name Role Phone [facility] Unavailable Unavailable Problems Combined list of problems from Department of Defense and Veterans Affairs facilities. It does not include entries that were removed or entered in error. Problem Status Onset Date Problem Type Date of Resolution Comments Source Anemia Active Condition [facility] Astigmatism, Unspec Active Condition [facility] Atrial fibrillation (SNOMED CT 89490915) Active Condition [facility] Bariatric Surgery Status (ICD-9-CM V45.86) Active Condition [facility] Bipolar disorder (SNOMED CT 96089211) Active Condition [facility] Bronchiectasis (SNOMED CT 86167101) Active Condition [facility] Cataracts (SNOMED CT 53710396) Active Condition [facility] Compulsive gambling Active Condition [facility] Dementia Active Condition [facility] Essential hypertension (SNOMED CT 88971193) Active Condition [facility] Gastritis Active Condition [facility] Gastroesophageal reflux disease (SNOMED CT 095572829) Active Condition [facility] Generalized anxiety disorder (SNOMED CT 07846453) Active Condition [facility] Hypermetropia/Hypero miguel Active Condition [facility] Long-term current use of anticoagulant Active Condition [facility] Major depressive disorder (SNOMED CT 882274622) Active Condition [facility] Mild cognitive disorder Active Condition [facility] Monoclonal gammopathy of uncertain significance Active Condition [facility] Presbyopia Active Condition [facility] Primary Obesity (ICD-9-CM 278.00) Active Condition [facility] Type 2 diabetes mellitus Active Condition [facility] Varicose veins of lower extremity Active Condition [facility] Diagnosis: ICD-10-CM R91.1 Solitary pulmonary nodule Active Diagnosis [facility] Diagnosis: ICD-10-CM D47.2 Monoclonal gammopathy Active Diagnosis [facility] Diagnosis: ICD-10-CM R93.7 Abnormal findings on diagnostic imaging of prt ms sys Active Diagnosis [facility] Diagnosis: ICD-10-CM D64.9 Anemia, unspecified Active Diagnosis [facility] Diagnosis: ICD-10-CM 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, mild, w/o beh/psych/mood/anx [facility] Diagnosis: ICD-10-CM R63.4 Abnormal weight loss Active Diagnosis [facility] Diagnosis: ICD-10-CM R93.89 Abnormal findings on dx imaging of oth body structures Active Diagnosis [facility] Diagnosis: ICD-10-CM F03.A18 Unspecified dementia, mild, with other behavioral disturb Active Diagnosis [facility] Diagnosis: ICD-10-CM M17.0 Bilateral primary osteoarthritis of knee Active Diagnosis [facility] Diagnosis: ICD-10-CM G20.C Parkinsonism, unspecified Active Diagnosis [facility] Diagnosis: ICD-10-CM M25.552 Pain in left hip Active Diagnosis [facility] Diagnosis: ICD-10-CM M16.11 Unilateral primary osteoarthritis, right hip Active Diagnosis [facility] Diagnosis: ICD-10-CM E11.8 Type 2 diabetes mellitus with unspecified complications Active Diagnosis [facility] Diagnosis: ICD-10-CM R60.9 Edema, unspecified Active Diagnosis [facility] Diagnosis: ICD-10-CM Z79.01 longterm (current) use of anticoagulants Active Diagnosis [facility] Diagnosis: ICD-10-CM F31.81 Bipolar II disorder Active Diagnosis [facility] Diagnosis: ICD-10-CM F31.76 Bipolar disorder, in full remis, most recent episode depress Active Diagnosis [facility] Diagnosis: ICD-10-CM 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 mellitus with diabetic neuropathy, unsp Active Diagnosis [facility] Diagnosis: ICD-10-CM W19.XXXD Unspecified fall, subsequent encounter Active Diagnosis [facility] Diagnosis: ICD-10-CM W19.XXXA Unspecified fall, initial encounter Active Diagnosis [facility] Diagnosis: ICD-10-CM E66.3 Overweight Active Diagnosis [facility] Diagnosis: ICD-10-CM F03.A4 Unspecified dementia, mild, with anxiety Active Diagnosis [facility] Diagnosis: ICD-10-CM Z01.818 Encounter for other preprocedural examination Active Diagnosis [facility] Diagnosis: ICD-10-CM Z13.6 Encounter for screening for cardiovascular disorders Active Diagnosis [facility] Medications Combined list of outpatient medications from Department of Defense and Veterans Affairs facilities.Medications provided include 1) outpatient medications from the last 15 months, and 2) patient-reported medications. Medication Details Route Status Patient Instructions Prescription Expires Prescription Number Last Dispense Date Ordering Provider Order Date Order Qty Source ACETAMINOPH EN 500MG TAB TAKE ONE TABLET BY MOUTH EVERY 6 HOURS NEEDED FOR PAIN ORAL ACTIVE 10/09/2024 [id number] 4 LYUBOV YEUNG 2023 100 [facility] ACETAMINOPH EN 500MG TAB TAKE ONE TABLET BY MOUTH EVERY 6 HOURS NEEDED FOR PAIN ORAL DISCONT INUED 08/16/2023 [id number] KEITH CRANE 2022 100 [facility] ALBUTEROL 90MCG/ACTUA T (CFC-F) INHL,ORAL,8 .5GM DOSE COUNTER INHALE 2 PUFFS BY INHALATI ON FOUR TIMES A DAY NEEDED FOR SHORTNES S OF BREATH RESPIR ATORY (INHAL ATION) ACTIVE 10/09/2024 [id number] 4 LYUBOV YEUNG 2023 2 [facility] AMOXICILLIN TRIHYDRATE 875MG/CLAVU LANATE K 125MG TAB TAKE 1 TABLET BY MOUTH TWICE A DAY FOR URINARY TRACT INFECTIO N ORAL 09/20/2023 [id number] Caden CHAVEZ 2023 14 [facility] APIXABAN 5MG TAB TAKE ONE TABLET BY MOUTH EVERY 12 HOURS TO PREVENT AND/OR TREAT BLOOD CLOTS ORAL ACTIVE 12/05/2024 [id number] 4 COBY HOWE 2023 180 [facility] APIXABAN 5MG TAB TAKE ONE TABLET BY MOUTH EVERY 12 HOURS TO PREVENT AND/OR TREAT BLOOD CLOTS ORAL DISCONT INUED 10/13/2023 [id number] 4 MISSY LARSEN 2022 180 [facility] ARIPIPRAZOL E 20MG TAB TAKE ONE TABLET BY MOUTH EVERY DAY FOR BIPOLAR DISORDER DOSE INCREASE D 11-23-22 ORAL ACTIVE 12/05/2024 [id number] 4 LORETA HONEYCUTT 2023 90 [facility] ARIPIPRAZOL E 20MG TAB TAKE ONE TABLET BY MOUTH EVERY DAY FOR BIPOLAR DISORDER DOSE INCREASE D 11-23-22 ORAL DISCONT INUED 11/24/2023 [id number] 4 USHA PURI 2022 90 [facility] ATORVASTATI N CA 10MG TAB TAKE ONE TABLET BY MOUTH AT BEDTIME ORAL ACTIVE 10/09/2024 [id number] 4 LYUBOV YEUNG 2023 90 [facility] ATORVASTATI N CA 10MG TAB TAKE ONE TABLET BY MOUTH AT BEDTIME ORAL DISCONT INUED 09/21/2023 [id number] MARIUSZ PHILLIPS 2022 90 [facility] BUPROPION HCL 150MG 24HR TAB,SA TAKE ONE TABLET BY MOUTH EVERY MORNING ORAL DISCONT INUED BY PROVIDE R 11/24/2023 [id number] 4 USHA PURI 2022 90 [facility] CALCIUM 200MG (CA CITRATE-950 MG) TAB TAKE TWO TABLETS BY MOUTH TWICE A DAY FOR CALCIUM SUPPLEME NT ORAL ACTIVE 11/13/2024 [id number] 4 MARIUSZ PHILLIPS 2023 400 [facility] CALCIUM 200MG (CA CITRATE-950 MG) TAB TAKE TWO TABLETS BY MOUTH TWICE A DAY FOR CALCIUM SUPPLEME NT ORAL DISCONT INUED 09/12/2023 [id number] DHOLE,ATH ARVA K 2022 400 [facility] CHOLECALCIF GABRIELA 25MCG (1,000UNIT) TAB TAKE ONE TABLET BY MOUTH EVERY DAY ORAL DISCONT INUED BY PROVIDE R 10/30/2024 [id number] 4 MARIUSZ PHILLIPS 2023 100 [facility] CHOLECALCIF GABRIELA 25MCG (1,000UNIT) TAB TAKE ONE TABLET BY MOUTH EVERY DAY ORAL DISCONT INUED 09/21/2023 [id number] 4 MARIUSZ PHILLIPS 2022 100 [facility] CYANOCOBALA MIN 1000MCG TAB TAKE ONE TABLET BY MOUTH EVERY DAY ORAL ACTIVE 03/10/2025 [id number] 4 MARIUSZ PHILLIPS 2023 100 [facility] CYANOCOBALA MIN 1000MCG TAB TAKE ONE TABLET BY MOUTH EVERY DAY ORAL DISCONT INUED 11/28/2023 [id number] 4 KEITH CRANE 2022 100 [facility] DICLOFENAC NA 1% GEL,TOP APPLY 4 GRAMS TOPICALL Y FOUR TIMES A DAY NEEDED TO AFFECTED AREA FOR PAIN TOPICA L ACTIVE 11/13/2024 [id number] 4 RACHEL LEIVA 2023 100 [facility] FERROUS SO4 325MG TAB TAKE ONE TABLET BY MOUTH EVERY DAY FOR IRON SUPPLEME NT ORAL ACTIVE 01/13/2025 [id number] 4 ADELE KINCAID 2023 100 [facility] FERROUS SO4 325MG TAB TAKE ONE TABLET BY MOUTH EVERY DAY IRON DEFICIEN CY ORAL DISCONT INUED 11/07/2023 [id number] ADELE KINCAID HAJOSE 2022 100 [facility] LIDOCAINE 5% PATCH APPLY 1 PATCH TOPICALL Y EVERY DAY FOR UP TO 12 HOURS FOR PAIN TOPICA L ACTIVE 10/09/2024 [id number] 4 LYUBOV YEUNG 2023 30 [facility] LIDOCAINE 5% PATCH APPLY 1 PATCH TOPICALL Y EVERY DAY FOR PAIN TOPICA L DISCONT INUED 08/16/2023 [id number] 4 KEITH CRANE 2022 30 [facility] MAGNESIUM OXIDE 400MG TAB TAKE TWO TABLETS BY MOUTH EVERY DAY FOR SUPPLEME NTATION ORAL SUSPEND ED 05/07/2025 [id number] 5 MARIUSZ PHILLIPS 2023 120 [facility] MAGNESIUM OXIDE 400MG TAB TAKE TWO TABLETS BY MOUTH EVERY DAY FOR SUPPLEME NTATION ORAL DISCONT INUED 06/17/2024 [id number] 4 RACHEL LEIVA 2022 120 [facility] MAGNESIUM OXIDE 400MG TAB TAKE TWO TABLETS BY MOUTH EVERY DAY FOR SUPPLEME NTATION ORAL DISCONT INUED 07/12/2023 [id number] INGRID BURLESON 2021 240 [facility] METFORMIN HCL 500MG TAB TAKE ONE TABLET BY MOUTH EVERY DAY FOR DIABETES *NOTE:WH OLE TABLETS ORAL DISCONT INUED 05/02/2023 [id number] MARRAFFA, ALTHEA A 2021 60 [facility] METFORMIN HCL 500MG TAB TAKE ONE TABLET BY MOUTH EVERY DAY FOR DIABETES *NOTE:WH OLE TABLETS ORAL 06/12/2024 [id number] 4 MARRAFFA, ALTHEA A 2022 60 [facility] METOPROLOL SUCCINATE 25MG TAB,SA TAKE THREE TABLETS BY MOUTH EVERY DAY FOR HEART AND BLOOD PRESSURE ORAL ACTIVE 10/09/2024 [id number] 4 LYUBOV YEUNG 2023 270 [facility] METOPROLOL SUCCINATE 50MG TAB,SA TAKE ONE TABLET BY MOUTH EVERY DAY FOR HEART AND BLOOD PRESSURE ORAL DISCONT INUED (EDIT) 10/27/2023 [id number] 4 KEITH CRANE 2022 90 [facility] MULTIVIT/OP HTH AREDS2/LUTE IN/ZEAXANTH IN CAP/TAB TAKE 1 CAP/TAB BY MOUTH TWICE A DAY WITH MEALS ORAL ACTIVE 02/24/2025 [id number] 4 MARIUSZ PHILLIPS 2023 120 [facility] MULTIVIT/OP HTH AREDS2/LUTE IN/ZEAXANTH IN CAP/TAB TAKE 1 CAP/TAB BY MOUTH TWICE A DAY WITH MEALS ORAL DISCONT INUED 12/28/2023 [id number] 4 KEITH CRANE 2022 120 [facility] MULTIVITAMI NS CAP/TAB TAKE 1 TABLET BY MOUTH EVERY DAY FOR SUPPLEME NT ORAL ACTIVE 03/12/2025 [id number] MARIUSZ PHILLIPS 2023 100 [facility] MULTIVITAMI NS CAP/TAB TAKE 1 TABLET BY MOUTH EVERY DAY ORAL 2023 [id number] KEITH CRANE 2022 100 [facility] OMEPRAZOLE 20MG CAP,EC TAKE ONE CAPSULE BY MOUTH EVERY MORNING AND TAKE TWO CAPSULES EVERY EVENING ON AN EMPTY STOMACH, AT LEAST 30 MINUTES PRIOR TO A MEAL FOR REFRACTO RY GERD ORAL DISCONT INUED 07/12/2023 [id number] INGRID BURLESON 2021 270 [facility] OMEPRAZOLE 40MG CAP,EC TAKE ONE CAPSULE BY MOUTH TWICE A DAY ON AN EMPTY STOMACH, AT LEAST 30 MINUTES PRIOR TO A MEAL TO DECREASE STOMACH ACID ORAL ACTIVE 09/19/2024 [id number] JACQUELINEMARIUSZ Garza Elba 2023 180 [facility] SEMAGLUTIDE 0.25MG/0.37 5ML INJ,SOLN,PE N,3ML INJECT 0.5MG UNDER THE SKIN EVERY WEEK DIABETES AND WEIGHT LOSS SUBCUT ANEOUS DISCONT INUED BY ANGEL Khan 12/03/2024 [id number] 4 ADELE KINCAID 2023 1 [facility] SEMAGLUTIDE 0.25MG/0.37 5ML INJ,SOLN,PE N,3ML INJECT 0.5MG UNDER THE SKIN EVERY WEEK DIABETES AND WEIGHT LOSS SUBCUT ANEOUS DISCONT INUED 11/08/2023 [id number] 4 ADELE KINCAID 2022 1 [facility] VENLAFAXINE HCL 150MG 24HR CAP,SA TAKE ONE CAPSULE BY MOUTH EVERY DAY ORAL ACTIVE 12/05/2024 [id number] 4 LORETA HONEYCUTT 2023 90 [facility] VENLAFAXINE HCL 150MG 24HR CAP,SA TAKE ONE CAPSULE BY MOUTH EVERY DAY ORAL DISCONT INUED 11/24/2023 [id number] 4 USHA PURI 2022 90 [facility] Allergies, Adverse Reactions, Alerts Combined list of allergies from Department of Defense and Veterans Affairs facilities. It does not include entries that were removed or entered in error. Substance Category Reaction Severity Reaction type Status Date Reported Comments Source EMPAGLIFLOZI N Propensity to adverse reactions to drug (finding) Dizziness, Fatigue MILD active 2 [facility] SULFAMETHOXA ZOLE Propensity to adverse reactions to drug (finding) Acute renal impairment active 2 [facility] Immunizations Combined list of available immunizations from the Department of Defense and Veterans Affairs facilities. Immunization Series Date Given Administered By Site Reaction Lot Number CVX Code Drug Computer System Validation Specialist Status Comments Source COVID-19 (PFIZER), MRNA, LNP-S, PF, JERI-SUCROSE, 30 MCG/0.3 ML (AGES 12+ YEARS) 2023 SUSAN MEIER LEFT DELTO ID [id number] 309 complet ed [facility] PNEUMOCOCCAL CONJUGATE PCV20, POLYSACCHARID E [id number] CONJUGATE, ADJUVANT, PF 2023 DIVINAS,CAMILLA A RIGHT DELTO ID [id number] 216 complet ed [facility] INFLUENZA, HIGH-DOSE, TRIVALENT, PF 2023 SHADES,CAMILLA A LEFT DELTO ID [id number] A 135 complet ed [facility] INFLUENZA VACCINE, QUADRIVALENT, ADJUVANTED 2022 SUSAN MEIER LEFT DELTO ID [id number] 205 complet ed [facility] ZOSTER RECOMBINANT 2 2021 187 complet ed [facility] COVID-19 (MODERNA), MRNA, LNP-S, PF, 100 MCG/0.5ML DOSE OR 50 MCG/0.25ML DOSE 4 2021 207 complet ed [facility] ZOSTER RECOMBINANT 1 2021 187 complet ed [facility] COVID-19 (MODERNA), MRNA, LNP-S, PF, 100 MCG/0.5ML DOSE OR 50 MCG/0.25ML DOSE 3 2020 207 complet ed [facility] INFLUENZA, HIGH DOSE SEASONAL 2020 135 complet ed [facility] INFLUENZA, UNSPECIFIED FORMULATION 2020 88 complet ed [facility] COVID-19 (MODERNA), MRNA, LNP-S, PF, 100 MCG/0.5 ML DOSE 1 2020 207 complet ed [facility] COVID-19 (MODERNA), MRNA, LNP-S, PF, 100 MCG/0.5ML DOSE OR 50 MCG/0.25ML DOSE 2020 207 complet ed [facility] COVID-19 (MODERNA), MRNA, LNP-S, PF, 100 MCG/0.5 ML DOSE 1 2020 207 complet ed [facility] INFLUENZA, INJECTABLE, QUADRIVALENT, PRESERVATIVE FREE 2019 150 complet ed [facility] ZOSTER RECOMBINANT 1 2018 187 complet ed [facility] INFLUENZA, SEASONAL, INJECTABLE, PRESERVATIVE FREE 2017 140 complet ed [facility] INFLUENZA, HIGH DOSE SEASONAL 2016 135 complet ed [facility] PNEUMOCOCCAL POLYSACCHARID E PPV23 2016 33 complet ed MERCK, [id number], EX 01/01/2018 [facility] INFLUENZA, HIGH DOSE SEASONAL 2016 135 complet ed [facility] PNEUMOCOCCAL CONJUGATE PCV 13 2015 133 complet ed 000 [facility] INFLUENZA, HIGH DOSE SEASONAL 2014 135 complet ed [facility] INFLUENZA, SEASONAL, INJECTABLE 2014 141 complet ed [facility] INFLUENZA, SEASONAL, INJECTABLE 2013 141 complet ed [facility] INFLUENZA, INJECTABLE, QUADRIVALENT 2013 158 complet ed [facility] INFLUENZA, UNSPECIFIED FORMULATION 2012 88 complet ed [facility] TDAP 2012 115 complet ed 2R45M/04/12 [facility] ZOSTER LIVE 2012 121 complet ed [id number] 8May14 [facility] INFLUENZA, UNSPECIFIED FORMULATION 2012 88 complet ed [facility] PNEUMOCOCCAL POLYSACCHARID E PPV23 2011 33 complet ed [facility] INFLUENZA, UNSPECIFIED FORMULATION 2010 88 complet ed [facility] PNEUMOCOCCAL, UNSPECIFIED FORMULATION 2010 109 complet ed [facility] INFLUENZA, SEASONAL, INJECTABLE, PRESERVATIVE FREE 2009 140 complet ed [facility] TD(ADULT) UNSPECIFIED FORMULATION 2007 139 complet ed [facility] INFLUENZA, SEASONAL, INJECTABLE 2002 141 complet ed [facility] INFLUENZA, UNSPECIFIED FORMULATION 1997 88 complet ed [facility] PNEUMOCOCCAL POLYSACCHARID E PPV23 1997 33 complet ed [facility] Results Combined list of recent chemistry, hematology and other laboratory results from Department of Defense and Veterans Affairs, ranging from 15 months to all on record, depending upon the facility. Order Name Results Value Reference Range Date Interpretation Specimen Comments Source PHOSPHOR US PHOSPHATE [MASS/VOLU ME] IN SERUM OR PLASMA 3.4 mg/dL 2.3 - 4.3 06/12 Specimen Type: PLASMA No comment entered. Ordering Provider: ADA MICHELLE Report Released Date/Time: May 26, 2024 09:45 AM Reporting Lab: [facility] [address] Performing Lab: [facility] [address] [facility] RETICULOCY TIMO/100 ERYTHROCYT ES IN BLOOD BY AUTOMATED COUNT 0.0429 0.0300 - 0.1000 06/12 Specimen Type: BLOOD Comment: Automated Differentia l Performed Ordering Provider: ADA MICHELLE Report Released Date/Time: May 26, 2024 09:53 AM Reporting Lab: [facility] [address] Performing Lab: [facility] [address] [facility] RETICS RETICULOCY TIMO/100 ERYTHROCYT ES IN BLOOD BY AUTOMATED COUNT 1.06 0.6 - 2.0 06/12 Specimen Type: BLOOD Comment: Automated Differentia l Performed Ordering Provider: ADA MICHELLE Report Released Date/Time: May 26, 2024 09:53 AM Reporting Lab: [facility] [address] Performing Lab: [facility] [phone] [place] [facility] IMMATURE RETICULOCY TIMO/RETICU LOCYTES.TO ANA IN BLOOD 5.9 1.0 - 14.0 06/12 Specimen Type: BLOOD Comment: Automated Differentia l Performed Ordering Provider: ADA MICHELLE Report Released Date/Time: May 26, 2024 09:53 AM Reporting Lab: [facility] [address] Performing Lab: [facility] [address] [place] [facility] RETICULOCY TE PRODUCTION INDEX 30.5 pg 28.2 - 36.6 06/12 Specimen Type: BLOOD Comment: Automated Differentia l Performed Ordering Provider: ADA MICHELLE Report Released Date/Time: May 26, 2024 09:53 AM Reporting Lab: [facility] [phone] Performing Lab: [facility] [address] [place] [facility] COMPREHE NSIVE METABOLI C PANEL+MG CREATININE [MASS/VOLU ME] IN SERUM OR PLASMA 1.0 mg/dL 0.7 - 1.2 06/12 Specimen Type: PLASMA No comment entered. Ordering Provider: ADA MICHELLE Report Released Date/Time: May 26, 2024 09:45 AM Reporting Lab: [facility] [address] Performing Lab: [facility] [address] [place] [facility] COMPREHE NSIVE METABOLI C PANEL+MG UREA NITROGEN [MASS/VOLU ME] IN SERUM OR PLASMA 22 mg/dL 8 - 26 06/12 Specimen Type: PLASMA No comment entered. Ordering Provider: ADA MICHELLE Report Released Date/Time: May 26, 2024 09:45 AM Reporting Lab: [facility] [address] Performing Lab: [facility] [address] [place] [facility] COMPREHE NSIVE METABOLI C PANEL+MG GLUCOSE [MASS/VOLU ME] IN SERUM OR PLASMA 132 mg/dL 70 - 100 06/12 H Specimen Type: PLASMA No comment entered. Ordering Provider: ADA MICHELLE Report Released Date/Time: May 26, 2024 09:45 AM Reporting Lab: [facility] [address] Performing Lab: [facility] [address] [place] [facility] COMPREHE NSIVE METABOLI C PANEL+MG SODIUM [MOLES/VOL UME] IN SERUM OR PLASMA 142 mmol/L 136 - 145 06/12 Specimen Type: PLASMA No comment entered. Ordering Provider: ADA MICHELLE Report Released Date/Time: May 26, 2024 09:45 AM Reporting Lab: [facility] [address] Performing Lab: [facility] [address] [place] [facility] COMPREHE NSIVE METABOLI C PANEL+MG POTASSIUM [MOLES/VOL UME] IN SERUM OR PLASMA 4.2 mmol/L 3.5 - 5.1 06/12 Specimen Type: PLASMA No comment entered. Ordering Provider: ADA MICHELLE Report Released Date/Time: May 26, 2024 09:45 AM Reporting Lab: [facility] [address] Performing Lab: [facility] [address] [place] [facility] COMPREHE NSIVE METABOLI C PANEL+MG CHLORIDE [MOLES/VOL UME] IN SERUM OR PLASMA 104 mmol/L 98 - 107 06/12 Specimen Type: PLASMA No comment entered. Ordering Provider: ADA MICHELLE Report Released Date/Time: May 26, 2024 09:45 AM Reporting Lab: [facility] [address] Performing Lab: [facility] [address] [place] [facility] COMPREHE NSIVE METABOLI C PANEL+MG CARBON DIOXIDE, TOTAL [MOLES/VOL UME] IN SERUM OR PLASMA 32 mmol/L 22 - 29 06/12 H Specimen Type: PLASMA No comment entered. Ordering Provider: ADA MICHELLE Report Released Date/Time: May 26, 2024 09:45 AM Reporting Lab: [facility] [address] Performing Lab: [facility] [address] [place] [facility] COMPREHE NSIVE METABOLI C PANEL+MG CALCIUM [MASS/VOLU ME] IN SERUM OR PLASMA 9.0 mg/dL 8.4 - 10.2 06/12 Specimen Type: PLASMA No comment entered. Ordering Provider: ADA MICHELLE Report Released Date/Time: May 26, 2024 09:45 AM Reporting Lab: [facility] [address] Performing Lab: [facility] [address] [place] [facility] COMPREHE NSIVE METABOLI C PANEL+MG PROTEIN [MASS/VOLU ME] IN SERUM OR PLASMA 5.9 g/dL 6.4 - 8.3 06/12 L Specimen Type: PLASMA No comment entered. Ordering Provider: ADA MICHELLE Report Released Date/Time: May 26, 2024 09:45 AM Reporting Lab: [facility] [address] Performing Lab: [facility] [address] [place] [facility] COMPREHE NSIVE METABOLI C PANEL+MG ALBUMIN [MASS/VOLU ME] IN SERUM OR PLASMA 3.8 g/dL 3.5 - 5.0 06/12 Specimen Type: PLASMA No comment entered. Ordering Provider: ADA MICHELLE Report Released Date/Time: May 26, 2024 09:45 AM Reporting Lab: [facility] [address] Performing Lab: [facility] [address] [place] [facility] COMPREHE NSIVE METABOLI C PANEL+MG BILIRUBIN. TOTAL [MASS/VOLU ME] IN SERUM OR PLASMA 0.2 mg/dL 0.2 - 1.2 06/12 Specimen Type: PLASMA No comment entered. Ordering Provider: ADA MICHELLE Report Released Date/Time: May 26, 2024 09:45 AM Reporting Lab: [facility] [address] Performing Lab: [facility] [address] [place] [facility] COMPREHE NSIVE METABOLI C PANEL+MG MAGNESIUM [MASS/VOLU ME] IN SERUM OR PLASMA 1.6 mg/dL 1.6 - 2.6 06/12 Specimen Type: PLASMA No comment entered. Ordering Provider: ADA MICHELLE Report Released Date/Time: May 26, 2024 09:45 AM Reporting Lab: [facility] [address] Performing Lab: [facility] [address] [place] [facility] COMPREHE NSIVE METABOLI C PANEL+MG ANION GAP IN SERUM OR PLASMA 6 mmol/L 5 - 15 06/12 Specimen Type: PLASMA No comment entered. Ordering Provider: ADA MICHELLE Report Released Date/Time: May 26, 2024 09:45 AM Reporting Lab: [facility] [address] Performing Lab: [facility] [address] [facility] COMPREHE NSIVE METABOLI C PANEL+MG ALKALINE PHOSPHATAS E [ENZYMATIC ACTIVITY/V OLUME] IN SERUM OR PLASMA 74 U/L 40 - 150 06/12 Specimen Type: PLASMA No comment entered. Ordering Provider: ADA MICHELLE Report Released Date/Time: May 26, 2024 09:45 AM Reporting Lab: [facility] [address] Performing Lab: [facility] [address] [place] [facility] COMPREHE NSIVE METABOLI C PANEL+MG ALANINE AMINOTRANS FERASE [ENZYMATIC ACTIVITY/V OLUME] IN SERUM OR PLASMA 14 U/L <44 - 44 06/12 Specimen Type: PLASMA No comment entered. Ordering Provider: ADA MICHELLE Report Released Date/Time: May 26, 2024 09:45 AM Reporting Lab: [facility] [address] Performing Lab: [facility] [address] [place] [facility] COMPREHE NSIVE METABOLI C PANEL+MG ASPARTATE AMINOTRANS FERASE [ENZYMATIC ACTIVITY/V OLUME] IN SERUM OR PLASMA 20 U/L 11 - 34 06/12 Specimen Type: PLASMA No comment entered. Ordering Provider: ADA MICHELLE Report Released Date/Time: May 26, 2024 09:45 AM Reporting Lab: [facility] [address] Performing Lab: [facility] [address] [place] [facility] COMPREHE NSIVE METABOLI C PANEL+MG GLOMERULAR FILTRATION RATE/1.73 SQ M.PREDICTE D [VOLUME RATE/AREA] IN SERUM, PLASMA OR BLOOD BY CREATININE -BASED FORMULA (CKD-EPI 2020) 78 60 06/12 Specimen Type: PLASMA No comment entered. Ordering Provider: ADA MICHELLE Report Released Date/Time: May 26, 2024 09:45 AM Reporting Lab: [facility] [id number] Performing Lab: [facility] [phone] [place] [facility] CBC & DIFF LEUKOCYTES [#/VOLUME] IN BLOOD BY AUTOMATED COUNT 6.4 4.0 - 11.0 06/12 Specimen Type: BLOOD Comment: Automated Differentia l Performed Ordering Provider: ADA MICHELLE Report Released Date/Time: May 26, 2024 09:45 AM Reporting Lab: [facility] [address] Performing Lab: [facility] [address] [place] [facility] CBC & DIFF ERYTHROCYT ES [#/VOLUME] IN BLOOD BY AUTOMATED COUNT 4.05 4.60 - 6.20 06/12 L Specimen Type: BLOOD Comment: Automated Differentia l Performed Ordering Provider: ADA MICHELLE Report Released Date/Time: May 26, 2024 09:45 AM Reporting Lab: [facility] [address] Performing Lab: [facility] [address] [place] [facility] CBC & DIFF HEMOGLOBIN [MASS/VOLU ME] IN BLOOD 11.8 g/dL 13.5 - 17.9 06/12 L Specimen Type: BLOOD Comment: Automated Differentia l Performed Ordering Provider: ADA MICHELLE Report Released Date/Time: May 26, 2024 09:45 AM Reporting Lab: [facility] [address] Performing Lab: [facility] [address] [place] [facility] CBC & DIFF HEMATOCRIT [VOLUME FRACTION] OF BLOOD BY AUTOMATED COUNT 37.5 41.0 - 54.0 06/12 L Specimen Type: BLOOD Comment: Automated Differentia l Performed Ordering Provider: ADA MICHELLE Report Released Date/Time: May 26, 2024 09:45 AM Reporting Lab: [facility] [address] Performing Lab: [facility] [address] [place] [facility] CBC & DIFF MCV [ENTITIC VOLUME] BY AUTOMATED COUNT 92.6 fL 80.0 - 100.0 06/12 Specimen Type: BLOOD Comment: Automated Differentia l Performed Ordering Provider: ADA MICHELLE Report Released Date/Time: May 26, 2024 09:45 AM Reporting Lab: [facility] [address] Performing Lab: [facility] [address] [place] [facility] CBC & DIFF MCH [ENTITIC MASS] BY AUTOMATED COUNT 29.1 pg 27.0 - 33.0 06/12 Specimen Type: BLOOD Comment: Automated Differentia l Performed Ordering Provider: ADA MICHELLE Report Released Date/Time: May 26, 2024 09:45 AM Reporting Lab: [facility] [address] Performing Lab: [facility] [address] [place] [facility] CBC & DIFF MCHC [MASS/VOLU ME] BY AUTOMATED COUNT 31.5 g/dL 32.0 - 37.5 06/12 L Specimen Type: BLOOD Comment: Automated Differentia l Performed Ordering Provider: ADA MICHELLE Report Released Date/Time: May 26, 2024 09:45 AM Reporting Lab: [facility] [address] Performing Lab: [facility] [address] [place] [facility] CBC & DIFF PLATELETS [#/VOLUME] IN BLOOD BY AUTOMATED COUNT 298 150 - 400 06/12 Specimen Type: BLOOD Comment: Automated Differentia l Performed Ordering Provider: ADA MICHELLE Report Released Date/Time: May 26, 2024 09:45 AM Reporting Lab: [facility] [address] Performing Lab: [facility] [address] [place] [facility] CBC & DIFF PLATELET MEAN VOLUME [ENTITIC VOLUME] IN BLOOD BY AUTOMATED COUNT 9.0 fL 9.1 - 13.0 06/12 L Specimen Type: BLOOD Comment: Automated Differentia l Performed Ordering Provider: ADA MICHELLE Report Released Date/Time: May 26, 2024 09:45 AM Reporting Lab: [facility] [address] Performing Lab: [facility] [address] [place] [facility] CBC & DIFF NEUTROPHIL S/100 LEUKOCYTES IN BLOOD BY MANUAL COUNT 54.5 40.0 - 80.0 06/12 Specimen Type: BLOOD Comment: Automated Differentia l Performed Ordering Provider: ADA MICHELLE Report Released Date/Time: May 26, 2024 09:45 AM Reporting Lab: [facility] [address] Performing Lab: [facility] [address] [place] [facility] CBC & DIFF LYMPHOCYTE S/100 LEUKOCYTES IN BLOOD BY MANUAL COUNT 31.6 15.0 - 45.0 06/12 Specimen Type: BLOOD Comment: Automated Differentia l Performed Ordering Provider: ADA MICHELLE Report Released Date/Time: May 26, 2024 09:45 AM Reporting Lab: [facility] [address] Performing Lab: [facility] [address] [place] [facility] CBC & DIFF MONOCYTES/ 100 LEUKOCYTES IN BLOOD BY AUTOMATED COUNT 9.2 2.0 - 12.0 06/12 Specimen Type: BLOOD Comment: Automated Differentia l Performed Ordering Provider: ADA MICHELLE Report Released Date/Time: May 26, 2024 09:45 AM Reporting Lab: [facility] [address] Performing Lab: [facility] [address] [place] [facility] CBC & DIFF EOSINOPHIL S/100 LEUKOCYTES IN BLOOD BY AUTOMATED COUNT 3.9 0.0 - 6.0 06/12 Specimen Type: BLOOD Comment: Automated Differentia l Performed Ordering Provider: ADA MICHELLE Report Released Date/Time: May 26, 2024 09:45 AM Reporting Lab: [facility] [address] Performing Lab: [facility] [address] [place] [facility] CBC & DIFF BASOPHILS/ 100 LEUKOCYTES IN BLOOD BY MANUAL COUNT 0.5 0.0 - 2.0 06/12 Specimen Type: BLOOD Comment: Automated Differentia l Performed Ordering Provider: ADA MICHELLE Report Released Date/Time: May 26, 2024 09:45 AM Reporting Lab: [facility] [address] Performing Lab: [facility] [address] [place] [facility] CBC & DIFF ERYTHROCYT E DISTRIBUTI ON WIDTH [RATIO] BY AUTOMATED COUNT 14.1 11.5 - 14.5 06/12 Specimen Type: BLOOD Comment: Automated Differentia l Performed Ordering Provider: ADA MICHELLE Report Released Date/Time: May 26, 2024 09:45 AM Reporting Lab: [facility] [address] Performing Lab: [facility] [address] [place] [facility] CBC & DIFF LYMPHOCYTE S [#/VOLUME] IN BLOOD BY AUTOMATED COUNT 2.0 1.0 - 4.0 06/12 Specimen Type: BLOOD Comment: Automated Differentia l Performed Ordering Provider: ADA MICHELLE Report Released Date/Time: May 26, 2024 09:45 AM Reporting Lab: [facility] [address] Performing Lab: [facility] [address] [place] [facility] CBC & DIFF MONOCYTES [#/VOLUME] IN BLOOD BY AUTOMATED COUNT 0.6 0.1 - 1.0 06/12 Specimen Type: BLOOD Comment: Automated Differentia l Performed Ordering Provider: ADA MICHELLE Report Released Date/Time: May 26, 2024 09:45 AM Reporting Lab: [facility] [address] Performing Lab: [facility] [address] [place] [facility] CBC & DIFF NEUTROPHIL S [#/VOLUME] IN BLOOD BY AUTOMATED COUNT 3.5 2.0 - 7.7 06/12 Specimen Type: BLOOD Comment: Automated Differentia l Performed Ordering Provider: ADA MICHELLE Report Released Date/Time: May 26, 2024 09:45 AM Reporting Lab: [facility] [address] Performing Lab: [facility] [address] [place] [facility] CBC & DIFF EOSINOPHIL S [#/VOLUME] IN BLOOD BY AUTOMATED COUNT 0.3 0.0 - 0.5 06/12 Specimen Type: BLOOD Comment: Automated Differentia l Performed Ordering Provider: ADA MICHELLE Report Released Date/Time: May 26, 2024 09:45 AM Reporting Lab: [facility] [address] Performing Lab: [facility] [address] [place] [facility] CBC & DIFF BASOPHILS [#/VOLUME] IN BLOOD BY AUTOMATED COUNT 0.0 0.0 - 0.2 06/12 Specimen Type: BLOOD Comment: Automated Differentia l Performed Ordering Provider: ADA MICHELLE Report Released Date/Time: May 26, 2024 09:45 AM Reporting Lab: [facility] [address] Performing Lab: [facility] [address] [place] [facility] CBC & DIFF IG(META,MY [place],PRO) 0.3 06/12 Specimen Type: BLOOD Comment: Automated Differentia l Performed Ordering Provider: ADA MICHELLE Report Released Date/Time: May 26, 2024 09:45 AM Reporting Lab: [facility] [address] Performing Lab: [facility] [address] [place] [facility] CBC & DIFF IMMATURE GRANULOCYT ES [PRESENCE] IN BLOOD BY AUTOMATED COUNT 0.0 0.0 - 0.1 06/12 Specimen Type: BLOOD Comment: Automated Differentia l Performed Ordering Provider: ADA MICHELLE Report Released Date/Time: May 26, 2024 09:45 AM Reporting Lab: [facility] [address] Performing Lab: [facility] [address] [place] [facility] CBC & DIFF RETICULOCY TE PRODUCTION INDEX 30.5 pg 28.2 - 36.6 06/12 Specimen Type: BLOOD Comment: Automated Differentia l Performed Ordering Provider: ADA MICHELLE Report Released Date/Time: May 26, 2024 09:45 AM Reporting Lab: [facility] [address] Performing Lab: [facility] [address] [place] [facility] URINALYS IS COLOR OF URINE YELLOW 06/03 Specimen Type: URINE No comment entered. Ordering Provider: DESIREE YEUNG NNOR R Report Released Date/Time: Jun 03, 2024 10:39 AM Reporting Lab: [facility] [address] Performing Lab: [facility] [address] [place] [facility] URINALYS IS SPECIFIC GRAVITY OF URINE 1.018 1.003 - 1.035 06/03 Specimen Type: URINE No comment entered. Ordering Provider: DESIREE YEUNG NNOR R Report Released Date/Time: Jun 03, 2024 10:39 AM Reporting Lab: [facility] [address] Performing Lab: [facility] [address] [place] [facility] URINALYS IS BILIRUBIN. TOTAL [PRESENCE] IN URINE BY TEST STRIP NEGATIVE 06/03 Specimen Type: URINE No comment entered. Ordering Provider: DESIREE YEUNG NNOR R Report Released Date/Time: Jun 03, 2024 10:39 AM Reporting Lab: [facility] [address] Performing Lab: [facility] [address] [place] [facility] URINALYS IS KETONES [MASS/VOLU ME] IN URINE BY TEST STRIP NEGATIVE 06/03 Specimen Type: URINE No comment entered. Ordering Provider: DESIREE YEUNG NNOR R Report Released Date/Time: Jun 03, 2024 10:39 AM Reporting Lab: [facility] [address] Performing Lab: [facility] [address] [place] [facility] URINALYS IS GLUCOSE [MASS/VOLU ME] IN URINE BY TEST STRIP 500 mg/dL <30 - 30 06/03 Specimen Type: URINE No comment entered. Ordering Provider: DESIREE YEUNG NNOR R Report Released Date/Time: Jun 03, 2024 10:39 AM Reporting Lab: [facility] [address] Performing Lab: [facility] [address] [place] [facility] URINALYS IS PROTEIN [MASS/VOLU ME] IN URINE BY TEST STRIP NEGATIVE mg/dL <20 - 20 06/03 Specimen Type: URINE No comment entered. Ordering Provider: DESIREE YEUNG NNOR R Report Released Date/Time: Jun 03, 2024 10:39 AM Reporting Lab: [facility] [address] Performing Lab: [facility] [address] [facility] URINALYS IS PH OF URINE BY TEST STRIP 6.5 5.0 - 8.0 06/03 Specimen Type: URINE No comment entered. Ordering Provider: DESIREE YEUNG NNOR R Report Released Date/Time: Jun 03, 2024 10:39 AM Reporting Lab: [facility] [address] Performing Lab: [facility] [address] [facility] URINALYS IS LEUKOCYTES [#/AREA] IN URINE SEDIMENT BY MICROSCOPY HIGH POWER FIELD 9 /[HPF] 0 - 7 06/03 H Specimen Type: URINE No comment entered. Ordering Provider: DESIREE YEUNG NNOR R Report Released Date/Time: Jun 03, 2024 10:39 AM Reporting Lab: [facility] [address] Performing Lab: [facility] [address] [place] [facility] URINALYS IS BACTERIA [PRESENCE] IN URINE SEDIMENT BY LIGHT MICROSCOPY NONE SEEN 06/03 Specimen Type: URINE No comment entered. Ordering Provider: DESIREE YEUNG NNOR R Report Released Date/Time: Jun 03, 2024 10:39 AM Reporting Lab: [facility] [address] Performing Lab: [facility] [address] [place] [facility] URINALYS IS ERYTHROCYT ES [#/AREA] IN URINE SEDIMENT BY MICROSCOPY HIGH POWER FIELD 3 /[HPF] 0 - 3 06/03 Specimen Type: URINE No comment entered. Ordering Provider: DESIREE YEUNG NNOR R Report Released Date/Time: Jun 03, 2024 10:39 AM Reporting Lab: [facility] [address] Performing Lab: [facility] [address] [place] [facility] URINALYS IS APPEARANCE OF URINE CLEAR 06/03 Specimen Type: URINE No comment entered. Ordering Provider: DESIREE YEUNG NNOR R Report Released Date/Time: Jun 03, 2024 10:39 AM Reporting Lab: [facility] [address] Performing Lab: [facility] [address] [place] [facility] URINALYS IS EPITHELIAL CELLS.SQUA MOUS [#/AREA] IN URINE SEDIMENT BY MICROSCOPY HIGH POWER FIELD <1/[HPF] 06/03 Specimen Type: URINE No comment entered. Ordering Provider: DESIREE YEUNG NNOR R Report Released Date/Time: Jun 03, 2024 10:39 AM Reporting Lab: [facility] [address] Performing Lab: [facility] [address] [place] [facility] URINALYS IS HEMOGLOBIN [PRESENCE] IN URINE BY TEST STRIP NEGATIVE 06/03 Specimen Type: URINE No comment entered. Ordering Provider: DESIREE YEUNG NNOR R Report Released Date/Time: Jun 03, 2024 10:39 AM Reporting Lab: [facility] [address] Performing Lab: [facility] [address] [place] [facility] URINALYS IS NITRITE [PRESENCE] IN URINE BY TEST STRIP NEGATIVE 06/03 Specimen Type: URINE No comment entered. Ordering Provider: DESIREE YEUNG NNOR R Report Released Date/Time: Jun 03, 2024 10:39 AM Reporting Lab: [facility] [address] Performing Lab: [facility] [address] [place] [facility] URINALYS IS LEUKOCYTE ESTERASE [PRESENCE] IN URINE BY TEST STRIP 75 06/03 Specimen Type: URINE No comment entered. Ordering Provider: DESIREE YEUNG Report Released Date/Time: Jun 03, 2024 10:39 AM Reporting Lab: [facility] [address] Performing Lab: [facility] [address] [facility] FINGERST ICK GLUCOSE GLUCOSE [MASS/VOLU ME] IN CAPILLARY BLOOD 148 mg/dL 70 - 100 05/20 H Specimen Type: BLOOD Comment: Save Result Ordering Provider: JOSE PHILLIPS Report Released Date/Time: May 20, 2024 03:03 PM Reporting Lab: [facility] [address] Performing Lab: [facility] [address] [facility] KAPPA/LA MBDA LC FREE,RAT IO KAPPA LIGHT CHAINS.PAULA E [MASS/VOLU ME] IN SERUM 27.3 mg/L 3.3 - 19.4 05/13 H Specimen Type: SERUM Comment: Free kappa/lambd a ratio in serum of normal individuals is 0.26-1.65. Excess production of free kappa or lambda chains can alter the ratio. Monoclonal free light chains are found in the serum of patients with multiple myeloma, Waldenstrom 's macroglobul inemia, mu-heavy chain disease, primary amyloidosis , light chain deposition disease, monoclonal gammopathy of undetermine d significanc e, and lymphoproli ferative disorders. Measurement of free light chain concen- tration in serum is useful for diagnosis, prognosis, monitoring disease activity and following response to therapy of these disorders. Test Performed by [facility], [facility] [facility], [address] [place] [address] Devante Meyer M.D., Ph.D., Director of Laboratorie s , CLIA [id number] Ordering Provider: RENUKA JOHNSON Report Released Date/Time: Apr 24, 2024 04:08 PM Reporting Lab: [facility] [address] Performing Lab: [address] [place] [facility] KAPPA/LA MBDA LC FREE,RAT IO LAMBDA LIGHT CHAINS.PAULA E [MASS/VOLU ME] IN SERUM OR PLASMA 15.8 mg/L 5.7 - 26.3 05/13 Specimen Type: SERUM Comment: Free kappa/lambd a ratio in serum of normal individuals is 0.26-1.65. Excess production of free kappa or lambda chains can alter the ratio. Monoclonal free light chains are found in the serum of patients with multiple myeloma, Waldenstrom 's macroglobul inemia, mu-heavy chain disease, primary amyloidosis , light chain deposition disease, monoclonal gammopathy of undetermine d significanc e, and lymphoproli ferative disorders. Measurement of free light chain concen- tration in serum is useful for diagnosis, prognosis, monitoring disease activity and following response to therapy of these disorders. Test Performed by [employer], [employer], [address] [place] [address] Devante Meyer M.D., Ph.D., Director of Laboratorie s , CLIA [id number] Ordering Provider: RENUKA JOHNSON Report Released Date/Time: Apr 24, 2024 04:08 PM Reporting Lab: [facility] [address] Performing Lab: [address] [place] [facility] KAPPA/LA MBDA LC FREE,RAT IO KAPPA LIGHT CHAINS.PAULA E/LAMBDA LIGHT CHAINS.PAULA E [MASS RATIO] IN SERUM 1.73 0.26 - 1.65 05/13 H Specimen Type: SERUM Comment: Free kappa/lambd a ratio in serum of normal individuals is 0.26-1.65. Excess production of free kappa or lambda chains can alter the ratio. Monoclonal free light chains are found in the serum of patients with multiple myeloma, Waldenstrom 's macroglobul inemia, mu-heavy chain disease, primary amyloidosis , light chain deposition disease, monoclonal gammopathy of undetermine d significanc e, and lymphoproli ferative disorders. Measurement of free light chain concen- tration in serum is useful for diagnosis, prognosis, monitoring disease activity and following response to therapy of these disorders. Test Performed by [facility], [facility] [facility], [address] [place], [place] Devante Meyer M.D., Ph.D., Director of Laboratorie s , [place] [id number] Ordering Provider: RENUKA JOHNSON Report Released Date/Time: Apr 24, 2024 04:08 PM Reporting Lab: [facility] [address] Performing Lab: [facility] [address] [facility] LD,TOTAL LACTATE DEHYDROGEN ASE [ENZYMATIC ACTIVITY/V OLUME] IN SERUM OR PLASMA BY LACTATE TO PYRUVATE REACTION 141 U/L 125 - 220 05/13 Specimen Type: PLASMA No comment entered. Ordering Provider: RENUKA JOHNSON Report Released Date/Time: Apr 24, 2024 04:08 PM Reporting Lab: [facility] [address] Performing Lab: [facility] [address] [facility] URIC ACID URATE [MASS/VOLU ME] IN SERUM OR PLASMA 3.1 mg/dL 3.7 - 7.7 05/13 L Specimen Type: PLASMA No comment entered. Ordering Provider: RENUKA JOHNSON Report Released Date/Time: Apr 24, 2024 04:08 PM Reporting Lab: [facility] [address] Performing Lab: [facility] [address] [facility] B 12 COBALAMIN (VITAMIN B12) [MASS/VOLU ME] IN SERUM OR PLASMA 722 pg/mL 213 - 816 05/13 Specimen Type: SERUM No comment entered. Ordering Provider: RENUKA JOHNSON Report Released Date/Time: Apr 24, 2024 04:08 PM Reporting Lab: [facility] [address] Performing Lab: [facility] [address] [facility] Vital Signs Combined list of inpatient and outpatient Vital Signs from Department of Defense and Veterans Affairs, ranging from 12 months to all on record, depending upon the facility. Vital Sign Value Date Comments Source SYSTOLIC BLOOD PRESSURE 142 06/23/2024 09:54:57 [facility] DIASTOLIC BLOOD PRESSURE 73 06/23/2024 09:54:57 [facility] PULSE OXIMETRY 99 06/23/2024 09:54:57 [facility] WEIGHT 176.8 06/23/2024 09:54:57 [facility] BMI 27kg/m2 06/23/2024 09:54:57 [facility] PAIN 0 06/23/2024 09:54:57 [facility] HEIGHT 68 06/23/2024 09:54:57 [facility] TEMPERATURE 97.9 06/23/2024 09:54:57 [facility] PULSE 58 06/23/2024 09:54:57 [facility] RESPIRATION 18 06/23/2024 09:54:57 [facility] SYSTOLIC BLOOD PRESSURE 109 06/12/2024 08:50:58 [facility] DIASTOLIC BLOOD PRESSURE 62 06/12/2024 08:50:58 [facility] PULSE OXIMETRY 99 06/12/2024 08:50:58 [facility] WEIGHT 173.2 06/12/2024 08:50:58 [facility] BMI 26kg/m2 06/12/2024 08:50:58 [facility] PAIN 0 06/12/2024 08:50:58 [facility] HEIGHT 68 06/12/2024 08:50:58 [facility] TEMPERATURE 97.6 06/12/2024 08:50:58 [facility] PULSE 77 06/12/2024 08:50:58 [facility] RESPIRATION 20 06/12/2024 08:50:58 [facility] SYSTOLIC BLOOD PRESSURE 110 06/03/2024 10:12:03 [facility] DIASTOLIC BLOOD PRESSURE 73 06/03/2024 10:12:03 [facility] PULSE OXIMETRY 97 06/03/2024 10:12:03 [facility] WEIGHT 166 06/03/2024 10:12:03 [facility] BMI 25kg/m2 06/03/2024 10:12:03 [facility] PAIN 1 06/03/2024 10:12:03 [facility] HEIGHT 68 06/03/2024 10:12:03 [facility] PULSE 90 06/03/2024 10:12:03 [facility] RESPIRATION 16 06/03/2024 10:12:03 [facility] SYSTOLIC BLOOD PRESSURE 110 05/26/2024 09:22:56 [facility] DIASTOLIC BLOOD PRESSURE 73 05/26/2024 09:22:56 [facility] PULSE OXIMETRY 98 05/26/2024 09:22:56 [facility] WEIGHT 166.9 05/26/2024 09:22:56 [facility] BMI 25kg/m2 05/26/2024 09:22:56 [facility] PAIN 4 05/26/2024 09:22:56 [facility] TEMPERATURE 98.6 05/26/2024 09:22:56 [facility] PULSE 88 05/26/2024 09:22:56 [facility] RESPIRATION 19 05/26/2024 09:22:56 [facility] SYSTOLIC BLOOD PRESSURE 120 05/13/2024 12:38:02 [facility] DIASTOLIC BLOOD PRESSURE 80 05/13/2024 12:38:02 [facility] PULSE OXIMETRY 97 05/13/2024 12:38:02 [facility] WEIGHT 162.3 05/13/2024 12:38:02 [facility] BMI 25kg/m2 05/13/2024 12:38:02 [facility] PAIN 4 05/13/2024 12:38:02 [facility] TEMPERATURE 98.6 05/13/2024 12:38:02 [facility] PULSE 105 05/13/2024 12:38:02 [facility] RESPIRATION 17 05/13/2024 12:38:02 [facility] Encounters Combined list of: 1) Encounters from Department of Veterans Affairs facilities going back up to thelast 18 months. 2) Encounters from the Department of Defense facilities going back up to 280 months. Location Location Details Encounter Type Encounter Number Reason For Visit Attending Provider ADM Date DC Date Status Disposition Source [facility] [facility] Outpatient Encounter [id number] 01/04 [place] [facility] [place] [facility] Outpatient Encounter [id number] 01[facility]16 [place] [facility] [place] [facility] NRPSYC TST EVAL PHYS/QHP 1ST [id number] Diagnos is: ICD-10- CM F03.A18 Unspeci fied dementi a, mild, with other behavio ral disturb
JAMIE LYLES N 01/17 [place] [facility] [place] [facility] Out[facility] Encounter [id number] 01/24 [place] [facility] [place] [facility] Outpatient Encounter [id number] 01/29 [facility] [place] [facility] OFFICE O/P EST LOW 20-29 MIN [id number] Diagnos is: ICD-10- CM M16.11 Unilate ral primary osteoar thritis , right hip<br/ > SOFIA VARELA 02/13 [facility] [place] [facility] Outpatient Encounter [id number] 02/13 [facility] [place] [facility] Outpatient Encounter [id number] 02/13 [facility] [place] [facility] Outpatient Encounter [id number] 02/14 [facility] [place] [facility] Outpatient Encounter [id number] 02/20 [place] [facility] [place] [facility] Outpatient Encounter [id number] 02/23 [facility] [place] [facility] ELECTROCAR DIOGRAM COMPLETE [id number] Diagnos is: ICD-10- CM Z13.6 Encount er for screeni ng for cardiov ascular disorde rs
Sabrina WILL O 02/25 [facility] [place] [facility] OFFICE O/P EST MOD 30-39 MIN [id number] Diagnos is: ICD-10- CM Z01.818 Encount er for other preproc edural examina tion
RAFFI MG 02/25 [facility] [place] [facility] Outpatient Encounter [id number] 02/25 [facility] [place] [facility] Outpatient [facility]counter [id number] 02/28 [facility] Outpatient Encounter [id number] 03/05 [facility] PRO PHONE CALL 11-20 MIN [id number] Diagnos is: ICD-10- CM E11.8 Type 2 diabete s mellitu s with unspeci fied complic ations< br/> LUCY WHITLOCK 03/07 [facility] [place] Outpatient Encounter [id number] 03/07 [facility] [place] [facility] Outpatient Encounter [id number] 03/13 [facility] [place] Outpatient Encounter [id number] 04/05 [facility] [place] OFFICE O/P EST LOW 20-29 MIN [id number] Diagnos is: ICD-10- CM M16.11 Unilate ral primary osteoar thritis , right hip<br/ > PATITO FIGUEROA 04/19 [facility] [place] [facility] Outpatient Encounter [id number] 05/14 [facility] [place] [facility] Outpatient Encounter [id number] 05/14 [facility] [place] [facility] OFFICE O/P EST HI 40-54 MIN [id number] Diagnos is: ICD-10- CM F31.81 Bipolar II disorde r
Diego HONEYCUTT 05/20 [facility] [place] [facility] Outpatient Encounter [id number] 06/04 [facility] [place] [facility] SELF CARE MNGMENT TRAINING [id number] Diagnos is: ICD-10- CM F03.A4 Unspeci fied dementi a, mild, with anxiety
JAVIER COOKIN A 06/17 [facility] OFFICE O/P EST MOD 30-39 MIN [id number] Diagnos is: ICD-10- CM E66.3 Overwei ght<br/ > HARSH ALVAREZ 07/11 [facility] Outpatient Encounter [id number] 08/09 [facility] [place] [facility] Outpatient Encounter [id number] 08/14 [facility] [place] [facility] OFFICE O/P EST MOD 30 MIN [id number] Diagnos is: ICD-10- CM F31.81 Bipolar II disorde r
Diego HONEYCUTT 08/21 [facility] EMERGENCY DEPT VISIT MOD MDM [id number] Diagnos is: ICD-10- CM W19.XXX A Unspeci fied fall, initial encount er
SA ROSA CHAVEZA A 08/21 [facility] [place] Outpatient Encounter [id number] 08/22 [facility] [place] [facility] Outpatient Encounter [id number] 08/22 [facility] [place] Outpatient Encounter [id number] 08/23 [facility] [place] [facility] Outpatient Encounter [id number] 08/29 [facility] Outpatient Encounter [id number] MARYJO SCHOFIELD Elba 09/04 [facility] [place] [facility] Outpatient Encounter [id number] 09/19 [facility] [place] [facility] Outpatient Encounter [id number] 10/01 [facility] [place] [facility] Outpatient Encounter [id number] 10/01 [facility] OFFICE O/P EST MOD 30 MIN [id number] Diagnos is: ICD-10- CM F31.76 Bipolar disorde r, in full remis, most recent episode depress
Diego HONEYCUTT 10/02 [facility] OFFICE O/P EST MOD 30 MIN [id number] Diagnos is: ICD-10- CM W19.XXX D Unspeci fied fall, subsequ ent encount er
LA OVIEDO 10/08 [facility] Outpatient Encounter [id number] 10/13 [facility] OFFICE O/P EST MOD 30 MIN [id number] Diagnos is: ICD-10- CM E11.40 Type 2 diabete s mellitu s with diabeti c neuropa thy, unsp
HARSH ALVAREZ 11/06 [facility] OFFICE O/P EST MOD 30 MIN [id number] Diagnos is: ICD-10- CM F31.76 Bipolar disorde r, in full remis, most recent episode depress
Diego HONEYCUTT 04/11 /2024 [facility] Outpatient Encounter [id number] 11/08 [place] [facility] [place] [facility] Outpatient Encounter [id number] ASHOK CHRISTIANSON MALCOM WALTER 11/10 [place] [facility] [place] [facility] Outpatient Encounter [id number] ANNALEE LENNON 11/12 [facility] OFF/OP CNSLTJ NEW/EST MOD 40 [id number] Diagnos is: ICD-10- CM G20.C Yumiko onism, unspeci fied
ADELE DUNN 11/19 [facility] [place] [facility] Outpatient Encounter [id number] 11/25 [place] [facility] Outpatient Encounter [id number] BAR LANTIGUA 11/27 [facility] OFFICE O/P EST MOD 30 MIN [id number] [id number] Diagnos is: ICD-10- CM F31.81 Bipolar II disorde r
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
Christos HOWE 12/04 [facility] [place] [facility] Outpatient Encounter [id number] SAAR MI 02/05 [facility] [place] [facility] Outpatient Encounter [id number] 02/05 [facility] OFFICE O/P EST MOD 30 MIN [id number] [id number] Diagnos is: ICD-10- CM M16.11 Unilate ral primary osteoar thritis , right hip<br/ > PATITO FIGUEROA A 02/06 [facility] TTE W/DOPPLER COMPLETE [id number] Diagnos is: ICD-10- CM R60.9 Edema, unspeci fied
MELVIN MERRILL RADHA 02/17 [facility] Outpatient Encounter [id number] 02/18 [facility] OFFICE O/P EST HI 40 MIN [id number] [id number] Diagnos is: ICD-10- CM E11.8 Type 2 diabete s mellitu s with unspeci fied complic ations< br/> HARSH ALVAREZ 03/05 [facility] Outpatient Encounter [id number] Diagnos is: ICD-10- CM M16.11 Unilate ral primary osteoar thritis , right hip<br/ > PATITO FIGUEROA A 03/09 [facility] Outpatient Encounter [id number] JOE ROPER A 03/10 [facility] Outpatient Encounter [id number] MARYJO SCHOFIELD 03/12 [facility] Outpatient Encounter [id number] 03/12 [facility] OFFICE O/P EST MOD 30 MIN [id number] Diagnos is: ICD-10- CM M25.552 Pain in left hip<br/ > ROYA RIBEIRO 03/16 [facility] Outpatient Encounter [id number] 03/16 [facility] Outpatient Encounter [id number] 03/25 [facility] Outpatient Encounter [id number] 03/27 [facility] OFFICE O/P EST MOD 30 MIN [id number] [id number] Diagnos is: ICD-10- CM G20.C Yumiko onism, unspeci fied
ADELE DUNN 04/20 [facility] Outpatient Encounter [id number] 04/22 [facility] OFFICE O/P EST MOD 30 MIN [id number] [id number] Diagnos is: ICD-10- CM R63.4 Abnorma l weight loss
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
PATITO FIGUEROA 04/29 [facility] PRO PHONE CALL 21-30 MIN [id number] Diagnos is: ICD-10- CM F03.A18 Unspeci fied dementi a, mild, with other behavio ral disturb
ROJAS SNYDER K 05/01 [facility] Outpatient Encounter [id number] 05/08 [facility] OFFICE O/P NEW HI 60 MIN [id number] Diagnos is: ICD-10- CM R93.89 Abnorma l finding s on dx imaging of oth body structu res<br/ > RENUKA JOHNSON 05/13 [facility] Outpatient Encounter [id number] CASEY DASILVA E 05/14 [facility] Outpatient Encounter [id number] 05/20 [facility] OFFICE O/P EST HI 40 MIN [id number] [id number] Diagnos is: ICD-10- CM R93.89 Abnorma l finding s on dx imaging of oth body structu res<br/ > OSIEL MICHELLE ASHOKTY M 05/26 [facility] Outpatient Encounter [id number] 05/26 [facility] OFFICE O/P EST MOD 30 MIN [id number] [id number] Diagnos is: ICD-10- CM R63.4 Abnorma l weight loss
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
Diego HONEYCUTT 06/04 [facility] Outpatient Encounter [id number] 06/04 [facility] HC PRO PHONE CALL 11-20 MIN [id number] [id number] Diagnos is: ICD-10- CM D64.9 Anemia, unspeci fied
ABDIRAHMAN CHIN M 06/05 [facility] Outpatient Encounter [id number] 06/11 [facility] DX [employer] BX [employer] ASPIR [id number] Diagnos is: ICD-10- CM R93.7 Abnorma l finding s on diagnos tic imaging of prt ms sys<br/ > FERNANDOMARY S 06/12 [facility] Outpatient Encounter [id number] 06/12 [facility] Outpatient Encounter [id number] CIOC,SARAH M 06/16 [facility] Outpatient Encounter [id number] CIOC,SARAH M 06/16 [facility] OFFICE O/P EST HI 40 MIN [id number] Diagnos is: ICD-10- CM 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<br/ > RENUKA JOHNSON 06/23 [facility] Outpatient Encounter [id number] ROJAS PARKER S 06/24 [facility] OFF/OP EST MAY X REQ PHY/QHP [id number] [id number] Diagnos is: ICD-10- CM R91.1 Solitar y pulmona ry nodule< br/> ROJAS PARKER S 06/24 [facility] Outpatient Encounter [id number] 07/02 [facility] Outpatient Encounter [id number] 07/06 [facility] Social History 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 Social History Type Response Date Comment [facility]ly [facility] e Tobacco smoking status NHIS VA-TOBACCO FORMER USER 08/21/2023 [facility] History of tobacco use ND-TOBACCO QUIT 1 5 YRS OR MORE 08/21/2023 [facility] History of tobacco use VA-TOBACCO FORMER USER 08/15/2022 [facility] History of tobacco use VA-TOBACCO FORMER USER 08/21/2021 [facility] History of tobacco use VA-TOBACCO FORMER USER 07/09/2018 [facility] History of tobacco use FORMER TOBACCO US ER 7Y OR GREATER 07/18/2017 [facility] History of tobacco use FORMER TOBACCO US ER 7Y OR GREATER 08/14/2016 [facility] History of tobacco use FORMER TOBACCO US ER 7Y OR GREATER 06/29/2015 [facility] History of tobacco use FORMER TOBACCO US ER 7Y OR GREATER 01/06/2014 [facility] History of tobacco use FORMER TOBACCO US ER 7Y OR GREATER 01/04/2012 [facility] Plan of Care List of future care activities from [facility] Affairs facilities. Additional future care activities may be listed in the Assessment and Plan section. Date/Time Care Activity Care Activity Detail Facili ty 07/06/2024 AMBULATORY - NONE AMBULATORY - NONE [facility] 07/16/2024 AMBULATORY - MEDICINE AMBULATORY - MEDICI NE [facility] 07/16/2024 AMBULATORY - MEDICINE AMBULATORY - MEDICI NE [facility] 07/16/2024 AMBULATORY - PSYCHIATRY AMBULATORY - PSYC HIATRY [facility] 07/16/2024 AMBULATORY - PSYCHIATRY AMBULATORY - PSYC HIATRY [facility] 10/07/2024 AMBULATORY - MEDICINE AMBULATORY - MEDICI NE [facility] 10/19/2024 AMBULATORY - NEUROLOGY AMBULATORY - NEURO LOGY [facility] 06/19/2024 Consult [facility] Cons Management Consultant's Choice [facility]
--- OUTSIDE RECORDS SUMMARY | 2024-07-06 16:17 | XMS_ITS | Encounter Summary ---
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 Date/Time Encounter Type Encounter Description Reason Provider Source Apr 20, 2024 09:30 AM OFFICE O/P EST MOD 30 MIN NEUROLOGY ICD-10-CM G20.C Parkinsonism, unspecified APRIL DUNN [facility] Encounter Template Text not used by [place] Assessments - Encounter Diagnoses This section includes the primary and secondary diagnoses documented for the Encounter. Date/Time Primary/Secondary Diagnosis Diagnosis Name Provider Source Apr 22, 2024 10:01 AM PRIMARY Parkinsonism, unspecified APRIL DUNN [facility] Plan of Treatment: Future Appointments (+ 6 months) and Future Tests (+/- 45 days) The Plan of Treatment section includes future care activities for the patient from all [place] treatmentfacilities. This section includes future appointments and future orders which are active, pending or scheduled. Future Appointments This section includes appointments that were scheduled to occur 6 months from the date of the Encounter, up to a maximum of 20 appointments. The data comes from all [place] treatment facilities. Appointment Date/Time Appointment Type Appointme nt Facility Name Apr 22, 2024 09:00 AM AM[place] - [place] [facility] Apr 22, 2024 10:00 AM [place]IC[place] [facility] Apr 29, 2024 10:30 AM AMB[place] [facility] May 13, 2024 12:00 PM AMBUL[place]ORY - NONE [place] [facility] May 13, 2024 01:00 PM [place]IC[place] [facility] May 20, 2024 09:45 AM AMBULATORY - NONE [place] [facility] May 26, 2024 09:15 AM [place]IC[place] [facility] Jun 03, 2024 10:00 AM [place]IC[place] [facility] Jun 04, 2024 09:30 AM [place] [facility] Jun 05, 2024 01:30 PM [place]ORY [place]IC[place] [facility] Jun 12, 2024 07:30 AM AM[place]ORY - NONE [place] [facility] Jun 12, 2024 08:30 AM [place]IC[place] [facility] Jun 23, 2024 10:15 AM [place]ORY - [place]ICINE [place] [facility] Jul 06, 2024 08:30 AM AM[place]ORY - NONE [place] [facility] Jul 16, 2024 07:30 AM [place]IC[place] [facility] Jul 16, 2024 08:30 AM [place]IC[place] [facility] Jul 16, 2024 09:00 AM AM[place] [facility] Jul 16, 2024 09:30 AM AMBULATORY - PS[facility]CHIATRY [facility] Oct 07, 2024 09:00 AM [facility] Active, Pending, and Scheduled Orders This section includes a listing of several types of active, pending, and scheduled orders, including clinic medications orders, diagnostic test orders, procedure orders and consult orders; where the start date of the order is 45 days before the date of the Encounter or 45 days after the date of theEncounter. The data comes from all [place] treatment facilities. Test Date/Time Test Type Test Details Facility Name Mar 18, 2024 05:05 PM Consult Order CARDIAC EC HO OUTPT-ALL SITES Cons Full Time Paramedic's Choice [facility] Lab Results: +/- 30 days of the encounter This section includes the Chemistry and Hematology Lab Results on record with [place] for the patient. Radiology Reports and Pathology Reports are provided separately, in subsequent sections. Lab Results This section contains the Chemistry/Hematology Results that were resulted 30 days before or 30 daysafter the date of the Encounter. Date/Time Source Result Type Result - Unit Interpretation Reference Range Comment May 20, 2024 09:39 AM [facility] FINGERSTICK GLUCOSE Specimen Type: BLOOD Comment: Save Result Ordering Provider: TANK PHILLIPS Report Released Date/Time: May 20, 2024 03:03 PM Reporting Lab: [facility] [phone] Performing Lab: [facility] [address] FINGERSTICK GLUCOSE 148 mg/dL H 70-100 May 13, 2024 11:44 AM [facility] KAPPA/LAMBDA LC FREE,RATIO Specimen Type: SERUM Comment: Free kappa/lambda ratio in serum of normal individuals is 0.26-1.65. Excess production of free kappa or lambda chains can alter the ratio. Monoclonal free light chains are found in the serum of patients with multiple myeloma, Waldenstrom's macroglobulinemi a, mu-heavy chain disease, primary amyloidosis, light chain deposition disease, monoclonal gammopathy of undetermined significance, and lymphoproliferat jeff disorders. Measurement of free light chain concen- tration in serum is useful for diagnosis, prognosis, monitoring disease activity and following response to therapy of these disorders. Test Performed by Jose Louie, [employer] [facility], [address] [place], [place] Devante Meyer M.D., Ph.D., Director of Laboratories , [facility] [id number] Ordering Provider: RENUKA JOHNSON Report Released Date/Time: Apr 24, 2024 04:08 PM Reporting Lab: [facility] [address] Performing Lab: [facility] [address] [facility] .KAPPA LT CHAIN,FREE 27.3 mg/L H 3.3-19.4 .LAMBDA LC,FREE 15.8 mg/L 5.7-26.3 .KAPPA/LAMBDA, FREE 1.73 H 0.26-1.65 May 13, 2024 11:44 AM [facility] LD,TOTAL Specimen Type: PLASMA No comment entered. Ordering Provider: RENUKA JOHNSON Report Released Date/Time: Apr 24, 2024 04:08 PM Reporting Lab: [facility] [address] Performing Lab: [facility] [address] LD,TOTAL 141 U/L 125-220 May 13, 2024 11:44 AM [facility] URIC ACID Specimen Type: PLASMA No comment entered. Ordering Provider: RENUKA JOHNSON Report Released Date/Time: Apr 24, 2024 04:08 PM Reporting Lab: [facility] [address] Performing Lab: [facility] [address] URIC ACID 3.1 mg/dL L 3.7-7.7 May 13, 2024 11:44 AM [facility] B 12 Specimen Type: SERUM No comment entered. Ordering Provider: RENUKA JOHNSON Report Released Date/Time: Apr 24, 2024 04:08 PM Reporting Lab: [facility] [address] Performing Lab: [facility] [address] B 12 722 pg/mL 213-816 May 13, 2024 11:44 AM [facility] FOLATE Specimen Type: SERUM No comment entered. Ordering Provider: RENUKA JOHNSON Report Released Date/Time: Apr 24, 2024 04:08 PM Reporting Lab: [facility] [address] Performing Lab: [facility] [address] FOLATE 14.6 ng/mL >7.0 May 13, 2024 11:44 AM [facility] PHOSPHORUS Specimen Type: PLASMA No comment entered. Ordering Provider: RENUKA JOHNSON Report Released Date/Time: Apr 24, 2024 04:08 PM Reporting Lab: [facility] [address] Performing Lab: [facility] [address] PHOSPHORUS 3.3 mg/dL 2.3-4.3 May 13, 2024 11:44 AM [facility] IRON GROUP Specimen Type: SERUM No comment entered. Ordering Provider: RENUKA JOHNSON Report Released Date/Time: Apr 24, 2024 04:08 PM Reporting Lab: [facility] [address] Performing Lab: [facility] [address] IRON 101 ug/dL 65-175 TIBC,CALCULATE D 313 ug/dL 250-425 FERRITIN pending IRON SATURATION 32 20-50 TRANSFERRIN 250 mg/dL 163-382 May 13, 2024 11:44 AM [facility] BETA 2-MICROGLOBULIN Specimen Type: SERUM No comment entered. Ordering Provider: RENUKA JOHNSON Report Released Date/Time: Apr 24, 2024 04:08 PM Reporting Lab: [facility] [address] Performing Lab: [facility] [address] BETA 2-MICROGLOBULI N 3.36 mg/L H 0.97-2.64 May 13, 2024 11:44 AM [facility] PSA Specimen Type: SERUM No comment entered. Ordering Provider: ABBY MEANS Report Released Date/Time: May 12, 2024 08:28 PM Reporting Lab: [facility] [address] Performing Lab: [facility] [address] PSA 0.49 ng/mL <4.00 May 13, 2024 11:44 AM [facility] TOTAL IMMUNOGLOB (IGA,IGG,IGM) Specimen Type: PLASMA No comment entered. Ordering Provider: RENUKA JOHNSON Report Released Date/Time: Apr 24, 2024 04:08 PM Reporting Lab: [facility] [address] Performing Lab: [facility] [address] IGM 78.8 mg/dL 22.0-293.0 IGG 714.3 mg/dL 540.0-18 22 .0 IGA 123.8 mg/dL 63.0-645.0 May 13, 2024 11:44 AM [facility] TESTOSTERONE Specimen Type: SERUM No comment entered. Ordering Provider: ABBY MEANS Report Released Date/Time: May 12, 2024 08:30 PM Reporting Lab: [facility] [address] Performing Lab: [facility] [address] TESTOSTERONE 534 ng/dL 221-870 May 13, 2024 11:44 AM [facility] CBC & DIFF Specimen Type: BLOOD Comment: Automated Differential Performed Ordering Provider: RENUKA JOHNSON Report Released Date/Time: Apr 24, 2024 04:08 PM Reporting Lab: [facility] [address] Performing Lab: [facility] [address] WBC 8.3 4.0-11.0 RBC 4.04 L 4.60-6.20 HGB 11.5 g/dL L 13.5-17.9 HCT 36.7 L 41.0-54.0 MCV 90.8 fL 80.0-100.0 MCH 28.5 pg 27.0-33.0 MCHC 31.3 g/dL L 32.0-37.5 PLT 327 150-400 MPV 9.8 fL 9.1-13.0 NEUT 66.2 40.0-80.0 LYMPHS 23.9 15.0-45.0 MONO 7.1 2.0-12.0 EOSINO 2.0 0.0-6.0 BASO 0.4 0.0-2.0 RDW 14.6 H 11.5-14.5 ABS LYMPH 2.0 1.0-4.0 ABS MONO 0.6 0.1-1.0 ABS NEUT 5.5 2.0-7.7 ABS EOS 0.2 0.0-0.5 ABS BASO 0.0 0.0-0.2 IG(META,MYELO, PRO) 0.4 ABS IMMATURE GRAN 0.0 0.0-0.1 May 13, 2024 11:44 AM [facility] COMPREHENSIVE METABOLIC PANEL+MG Specimen Type: PLASMA No comment entered. Ordering Provider: RENUKA JOHNSON Report Released Date/Time: Apr 24, 2024 04:08 PM Reporting Lab: [facility] [address] Performing Lab: [facility] [address] CREATININE 1.0 mg/dL 0.7-1.2 UREA NITROGEN 26 mg/dL 8-26 GLUCOSE 212 mg/dL H 70-100 SODIUM 140 mmol/L 136-145 POTASSIUM 4.1 mmol/L 3.5-5.1 CHLORIDE 104 mmol/L 98-107 CO2 30 mmol/L H 22-29 CALCIUM 9.2 mg/dL 8.4-10.2 PROTEIN,TOTAL 6.2 g/dL L 6.4-8.3 ALBUMIN 3.9 g/dL 3.5-5.2 BILIRUBIN, TOTAL 0.4 mg/dL 0.2-1.2 MAGNESIUM 1.5 mg/dL L 1.6-2.6 ANION GAP 6 mmol/L 5-15 ALKALINE PHOSPHATASE 78 U/L 40-150 ALT/SGPT 14 U/L <44 AST/SGOT 21 U/L 11-34 .CREAT EGFR(CKD-EPI) 78 >60 May 13, 2024 11:44 AM [facility] PERIPHERAL SMEAR PATHOLOGIST REVIEW Specimen Type: BLOOD No comment entered. Ordering Provider: RENUKA JOHNSON Report Released Date/Time: May 13, 2024 01:51 PM Reporting Lab: [facility] [address] Performing Lab: [facility] [address] PERIPHERAL SMEAR PATHOLOGIST REVIEW SLIDES MADE Apr 22, 2024 10:41 AM [facility] ELP/IMMFIX,SERUM PANEL Specimen Type: SERUM Comment: Decreased gamma fraction may be seen in certain lymphoproliferat jeff disorders. Recommend submitting a 24 hr urine for ELP and immunofixation tests. Ordering Provider: LYUBOV YEUNG Report Released Date/Time: Apr 22, 2024 10:20 AM Reporting Lab: [facility] [address] Performing Lab: [facility] [address] PROTEIN,TOTAL 6.0 g/dL L 6.4-8.3 .ALBUMIN FRACTION 3.63 g/dL L 3.66-4.78 .ALPHA 1 FRACTION 0.37 g/dL 0.14-0.38 .ALPHA 2 FRACTION 0.81 g/dL 0.50-0.90 .BETA 1 FRACTION 0.34 g/dL 0.33-0.55 .BETA 2 FRACTION 0.28 g/dL 0.20-0.52 .GAMMA FRACTION 0.57 g/dL L 0.58-1.72 .TOTAL PROTEIN 6.0 g/dL 6.0-8.3 .INTERPRETATIO N NO MONOCLONALS DETECTED Apr 22, 2024 10:32 AM [facility] ELP/IMMFIX,URINE RANDOM PANEL Specimen Type: URINE No comment entered. Ordering Provider: LYUBOV YEUNG Report Released Date/Time: Apr 22, 2024 10:20 AM Reporting Lab: [facility] [address] Performing Lab: [facility] [address] PROTEIN,T. RANDOM UR <6.8 mg/dL <14.0 .INTERPRETATIO N,UR NO MONOCLONALS DETECTED Apr 22, 2024 08:15 AM [facility] CBC Specimen Type: BLOOD No comment entered. Ordering Provider: LYUBOV YEUNG Report Released Date/Time: Oct 09, 2023 11:10 AM Reporting Lab: [facility] [address] Performing Lab: [facility] [address] WBC 9.8 4.0-11.0 RBC 4.45 L 4.60-6.20 HGB 13.0 g/dL L 13.5-17.9 HCT 40.2 L 41-54 MCV 90.3 fL 80-100 MCH 29.2 pg 27-33 MCHC 32.3 g/dL 32.0-37.5 PLT 328 150-400 MPV 9.7 fL 9.1-13.0 RDW 14.3 11.5-14.5 Apr 22, 2024 08:15 AM [facility] BASIC METABOLIC PANEL+MG Specimen Type: PLASMA No comment entered. Ordering Provider: LYUBOV YEUNG Report Released Date/Time: Oct 09, 2023 11:10 AM Reporting Lab: [facility] [address] Performing Lab: [facility] [address] CREATININE 1.0 mg/dL 0.7-1.2 UREA NITROGEN 18 mg/dL 8-26 GLUCOSE 217 mg/dL H 70-100 SODIUM 144 mmol/L 136-145 POTASSIUM 4.3 mmol/L 3.5-5.1 CHLORIDE 106 mmol/L 98-107 CO2 31 mmol/L H 22-29 CALCIUM 9.6 mg/dL 8.4-10.2 MAGNESIUM 1.4 mg/dL L 1.6-2.6 ANION GAP 7 mmol/L 5-15 .CREAT EGFR(CKD-EPI) 78 >60 Apr 20, 2024 08:28 AM [facility] POC CREATININE Specimen Type: BLOOD No comment entered. Ordering Provider: TANK PHILLIPS Report Released Date/Time: Apr 20, 2024 08:30 AM Reporting Lab: [facility] [address] Performing Lab: [facility] [address] POC CREATININE 1.1 mg/dL 0.6-1.3 Vital Signs: All taken on the encounter date This section contains inpatient and outpatient Vital Signs collected on the date of the Encounter. Date/Time Temperature Pulse Blood Pressure Respiratory Rate SP02 Pain Height Weight Body Mass Index Source Apr 20, 2024 09:38 AM 98.5 65 105/66 16 97 5 [facility] Social History: Smoking Status (Most current) and Tobacco Use (All prior to encounter date) This section includes the most current, and the historical, smoking and tobacco- related health factors from the [place] facility where the Encounter took place. Current Smoking Status This section includes the most current smoking, or tobacco-related health factor, from the [place] facility where the Encounter took place. Date/Time Current Smoking Status Comment Aj woods Aug 21, 2023 10:30 AM [place]-TOBACCO FORMER USER [facility] Tobacco Use History This section includes a history of the smoking, or tobacco-related health factors, that were collected on or before the date of the Encounter. The data comes from the [place] facility where the Encounter took place. Date/Time Smoking Status/Tobacco Use Comment Guanakito ortez Aug 21, 2023 10:30 AM [place]-TOBACCO QUIT 15 YRS OR MORE [facility] Aug 15, 2022 09:00 AM [place]-TOBACCO FORMER USER [facility] Aug 15, 2022 09:00 AM [place]-TOBACCO QUIT 15 YRS OR MORE [facility] OR GREATE R [facility] Radiology Reports: +/- 30 days [...] the Encounter. The data comes from all [place] treatment facilities. Date/Time Radiology Report Provider Source May 20, 2024 09:[address] BODY W/O CONTRAST (P): JUAN THOMPSON [id number] -[id number] M Exm Date: MAY 20, 2024@09:14 Req Phys: LYUBOV YEUNG Loc: [facility] APACT L RES 03 WH 4F (Req' Img Loc: NUC MED Service: [place] [address] (Case [id number] COMPLETE) SKULL-THIGH PET IMAGE W/CT ([place] Detailed) CPT:64201 Reason for Study: eval for malignancy (Case 1910 COMPLETE) F-18 FDG ([place] Detailed) CPT:A9552 Clinical History: Per Joint Commission Standards, by signing this diagnostic imaging request the ordering provider confirms they have considered patients age and recent imaging history. 78M advancing weight loss, weakness, LAD, lytic bone lesions. Eval for primary malignancy. Responsible provider name and phone number to notify for critical findings if other than user placing the order and pager listed below: User placing orders pager: [phone] LAST CREATININE 1.0 (04/22/24) Report Status: Verified Date Reported: MAY 20, 2024 Date Verified: MAY 20, 2024 Project Builder E-Sig:/ES/RUFUS GROVES MD, FACR, CCD Report: PET/CT SCAN INDICATION: Weight loss. Weakness. Lymphadenopathy. Lytic bone lesions. Evaluate for primary malignancy. CLINICAL HISTORY ADDITIONAL: May 13, 2024 peripheral smear demonstrated slight anemia. COMPARISON: CT scan chest, abdomen and pelvis April 20, 2024. TECHNIQUE: Total Exam DLP: 644 mGy-cm. FDG dose: 11.4 mCi. Injection site: Left arm. Injection to scan time: 61 minutes. Contrast: Oral. Scan region: Skull base to mid thigh. Blood glucose: 148 mg/dl. SUVs based on lean body mass. FINDINGS: HEAD AND NECK: No abnormal hypermetabolism identified. CHEST: No abnormal hypermetabolism visualized. A groundglass pulmonary opacities seen previously within the right upper lobe and right lower lobe on the CT scan performed on April 20, 2024 have either significantly decreased or resolved. Residual groundglass opacity is seen within the right upper lobe. In addition, a 5 mm solid pulmonary nodule appears to present within the right upper lobe with surrounding groundglass opacity on image 96 series 3. This small solid nodule appears new from April 20, 2024 and is likely inflammatory in nature. This is associated with minimal metabolic activity. No hypermetabolic hilar or mediastinal lymph nodes identified. Bilateral calcified pleural plaques. This is compatible with previous asbestos exposure. Moderate coronary artery calcification. Valve calcification. ABDOMEN AND PELVIS: No abnormal hypermetabolism identified. Postsurgical changes stomach. [Nonobstructing calculi inferior pole left kidney. Small nonobstructing calculus right kidney. MUSCULOSKELETAL: No abnormal hypermetabolism identified to suggest metastatic disease. No abnormal hypermetabolism identified within the bone marrow. Impression: 1. Hyperglycemia. This may decrease the sensitivity of the examination for detecting viable tumor. 2. No malignancy identified. 3. Residual groundglass opacity right upper lobe. This is associated with a 5 mm solid nodule which appears new from April 20, 2024. I would favor the findings are likely inflammatory in nature. If clinically desired, close follow-up can be considered. Primary Diagnostic Code: SIGNIFICANT ABNORMALITY, ATTN NEEDED Secondary Diagnostic Codes: INCIDENTAL LUNG NODULE(NONSCREENING) Primary Interpreting Staff: RUFUS GROVES MD, FACR, STAFF RADIOLOGIST (Project Builder) /BSF RUFUS GROVES [facility] Apr 20, 2024 08:[address] (CAP) CHEST/ABD/PELVIS (P): JUAN THOMPSON [id number] M Exm Date: APR 20, 2024@08:07 Req Phys: JACRACHEL PRICE Pat Loc: [facility] APACT L RES 03 WH 4F (Req' Img Loc: CT IMAGING Service: [place] [address] (Case [id number] COMPLETE) CT (CAP) CHEST W CONTRAST (CT Detailed) CPT:72582 Contrast Media : Non-ionic Iodinated Reason for Study: 78M with weight loss & lymphadenopathy, CT for malignancy eval (Case 148 COMPLETE) CT (CAP) ABDOMEN/PELVIS W CONTRAS(CT Detailed) CPT:93203 Contrast Media : Non-ionic Iodinated Clinical History: 78M with weight loss & lymphadenopathy, CT for malignancy eval Per Joint Commission Standards, by signing this diagnostic imaging request the ordering provider confirms they have considered patients age and recent imaging history. Defer to radiologist for final CT protocol. Contact number for responsible provider who can be reached for any questions or notifications of critical findings: [phone] If ordering provider is a trainee, enter the name and contact information of the responsible staff physician. Amish Figueroa LAST 3: Collection DT Specimen Test Name Result Units Ref Range 03/05/2024 09:55 PLASMA CREATININE 1.1 mg/dL 0.7 - 1.2 10/09/2023 08:35 PLASMA CREATININE 1.1 mg/dL 0.7 - 1.2 08/21/2023 13:36 PLASMA CREATININE 1.2 mg/dL 0.7 - 1.2 03/05/2024 09:55 PLASMA .CREAT EGFR(CKD-E 70 Ref: >=60 10/09/2023 08:35 PLASMA .CREAT EGFR(CKD-E 70 Ref: >=60 08/21/2023 13:36 PLASMA .CREAT EGFR(CKD-E 63 Ref: >=60 Allergies: ([facility] only) SULFAMETHOXAZOLE (Feb 07, 2022) EMPAGLIFLOZIN (Jun 06, 2022) Report Status: Verified Date Reported: APR 20, 2024 Date Verified: APR 20, 2024 Project Builder E-Sig:/ES/JONATAN MILLER MD Report: CT CHEST, ABDOMEN AND PELVIS WITH IV CONTRAST CLINICAL HISTORY: 78-year-old male with weight loss and lymphadenopathy. Evaluate for malignancy. COMPARISON FILMS: No prior CT chest, abdomen or pelvis. Previous abdominal ultrasound dated 11/11/2015. TECHNIQUE: Axial images through the chest, abdomen and pelvis with IV contrast. 81 ml Omnipaque 350 IV contrast was administered. Coronal and sagittal reformats obtained. DOSE: Total DLP 529 mGy*cm. FINDINGS: LUNG PARENCHYMA AND PLEURA: Calcified pleural plaques in both hemithoraces and over the right hemidiaphragm. Mild peribronchovascular and centrilobular groundglass opacities in the right upper lobe, posterior left upper lobe, within the lower lobes bilaterally with very mild peribronchovascular ground glass opacities in the right middle lobe and lingula. Linear fibrosis versus atelectasis in the left lower lobe. Scattered calcified granuloma in the left upper and left lower lobes. 14 x 12 mm part solid nodule in the right lower lobe image 201 series 3 with 2 adjacent solid components measuring up to 3 mm surrounded by groundglass opacities. A few scattered solid pulmonary nodules (series 3) for example, a 3.5 mm perivascular nodule in the right lower lobe centrally image 166, 3.5 mm perivascular solid pulmonary nodule in the right lower lobe image 160, a 4 mm perivascular nodule in the lateral left lower lobe image 218. MEDIASTINUM: Thyroid unremarkable. Mildly atherosclerotic thoracic aorta. Ascending thoracic aorta measures 4 cm. Main pulmonary artery within normal measuring 2.2 cm. Moderate coronary artery calcifications. Aortic valve calcifications. Heart size within normal. No pericardial effusion. Patulous esophagus with mild esophageal wall thickening and a small sliding-type hiatal hernia. A few prominent paratracheal, AP window, subcarinal and hilar lymph nodes some of which are partially calcified. Largest noncalcified lymph node measures 3.2 mm in short axis dimension (image 116 series 2). Mucosal stranding in the distal trachea. Central tracheobronchial tree otherwise clear. ABDOMEN: Liver: No focal masses. No intrahepatic ductal dilatation. Gallbladder: Surgically absent. Common bile duct measures 8 mm likely secondary to a postoperative reservoir effect. No calcified choledocholithiasis. Spleen: Unremarkable. Spleen 10.5 cm. Pancreas: Diffuse fatty infiltration of the pancreas. No pancreatic duct dilation. No discrete mass. Adrenals: Unremarkable. No focal nodules. Kidneys: Fluid attenuating cysts within both kidneys. Several nonobstructing calyceal stones in these inferior pole calyx of the left kidney largest measuring 1.3 cm. Tiny nonobstructing calyceal stone in the inferior pole of the right kidney measuring 4 mm. No hydronephrosis or hydroureter. No ureteric calculi. 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 Small bowel unremarkable. Question colonic wall thickening versus inadequate distention of the ascending colon images [id number] series 2. Colonic diverticulosis. No diverticulitis. Mesentery/Peritoneum: Unremarkable. Nodes: A few subcentimeter periportal and portal caval lymph nodes. A few subcentimeter periaortic lymph nodes. No significant lymphadenopathy by size criteria. Vasculature: Atherosclerotic abdominal aorta. No abdominal aortic aneurysm. PELVIS: Prostate calcifications. Bladder unremarkable. OSSEOUS STRUCTURES AND SOFT TISSUES: Degenerative changes in the hips, sacroiliac joints, facet joints and lumbar spine. Mild anterior wedging involving the inferior endplate of T12, mild anterior wedging of T11 likely chronic. Mottled appearance to the ribs, thoracic and lumbar spine. Degenerative changes in both shoulders. Small lytic lesions within the sacrum (image 474 series 2 measuring 8 mm, in the iliacs more pronounced on the left image 46 series 2 measuring 8.2 mm, in the right acetabulum image 524 measuring 1.4 cm, in the femoral heads and necks images [id number] series 2. Calcified right axillary lymph nodes. Bilateral gynecomastia. Impression: In this patient with history of weight loss with lymphadenopathy: 1. Mottled appearance to ribs, thoracic, lumbar spine, femoral heads and neck with suggestion of a small lytic lesions within the sacrum and iliacs. Metastatic disease or myeloma cannot be excluded. 2. Question mild thickening versus inadequate distention of the ascending colon. Underlying lesion cannot be excluded. 3. 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 An underlying gastritis or underlying lesion cannot be excluded. 4. Mild peribronchial vascular groundglass opacities in the lung parenchyma bilaterally. A mild infectious or inflammatory pneumonitis cannot be excluded. 5. Findings suggesting asbestos related pleural disease with a few scattered solid sub-4 mm, subsolid (14 mm) and calcified nodules in the lung parenchyma as described above. Follow-up according to Fleischner Society criteria. 6. Several nonobstructing calyceal stones as described above. 7. Additional incidental findings as described in the body the report. Primary Interpreting Staff: JONATAN MILLER MD, RADIOLOGIST (Project Builder) /JONATAN GOMEZ [facility] Pathology Reports: +/- 30 days of the encounter Pathology Reports For cases when an order for pathology services may have been completed prior to the date of the Encounter, the report list includes the Pathology Reports that were completed up to 30 days before dateof the Encounter. For cases when an order for pathology services may have been completed after the date of the Encounter, the report list also includes the Pathology Reports that were completed up to30 days after date of the Encounter. The data comes from all [place] treatment facilities. Date/Time Pathology Report Provider Source May 14, 2024 10:47 AM LR SURGICAL PATHOLOGY REPORT: LOCAL TITLE: LR SURGICAL PATHOLOGY REPORT STANDARD TITLE: PATHOLOGY REPORT DATE OF NOTE: MAY 14, 2024@10:47:04 ENTRY DATE: MAY 14, 2024@10:47:04 AUTHOR: VIPUL DASILVA COSIGNER: URGENCY: STATUS: COMPLETED $APHDR Reporting Lab: [facility] [CLIA# [id number]] [address] [place] [address] - - - - - - - - - - - - - - - - - - - - - - - - - - - - - - - - - - - - - - - - MEDICAL RECORD PERIPHERAL SMEAR - - - - - - - - - - - - - - - - - - - - - - - - - - - - - - - - - - - - - - - - PATHOLOGY REPORT Accession No. PS-MN [id number] - - - - - - - - - - - - - - - - - - - - - - - - - - - - - - - - - - - - - - - - $TEXT Submitted by: Date obtained: May 13, 2024 - - - - - - - - - - - - - - - - - - - - - - - - - - - - - - - - - - - - - - - - Specimen (Received May 14, 2024 08:12): PERIPHERAL SMEAR - - - - - - - - - - - - - - - - - - - - - - - - - - - - - - - - - - - - - - - - BRIEF CLINICAL HISTORY: - - - - - - - - - - - - - - - - - - - - - - - - - - - - - - - - - - - - - - - - PREOPERATIVE DIAGNOSIS: - - - - - - - - - - - - - - - - - - - - - - - - - - - - - - - - - - - - - - - - OPERATIVE FINDINGS: - - - - - - - - - - - - - - - - - - - - - - - - - - - - - - - - - - - - - - - - POSTOPERATIVE DIAGNOSIS: Surgeon/physician: RENUKA JOHNSON MD =-=-=-=-=-=-=-=-=-=-=-=-=-=-=- =-=-=-=-=-=-=-=-=-=-=-=-=-=-=- =-=-=-=-=-=-=-=-=-= - - - - - - - - - - - - - - - - - - - - - - - - - - - - - - - - - - - - - - - - PATHOLOGY REPORT Accession No. PS-MN [id number] - - - - - - - - - - - - - - - - - - - - - - - - - - - - - - - - - - - - - - - - Specimen: The automated CBC shows a slight normochromic normocytic anemia. The red blood cells have a slight increase in anisopoikilocytosis with ovalocytes and other nonspecific forms. Polychromasia is not increased. The reticulocyte production index is decreased at 1.5. The neutrophils have normal segmentation and granulation. The lymphocytes are small and mature appearing. The platelets are small to medium in size with normal granulation. Diagnosis: - Slight normochromic normocytic anemia Comment: There is no morphologic evidence of hemolysis. Normochromic normocytic anemia without increased polychromasia can be seen with a large variety of systemic conditions such as infection/inflammation, malignancies (with or without bone marrow involvement), renal insufficiency, liver disease, endocrine diseases, early nutritional deficiency (iron, B12, folate). It can also be seen with chemotherapy and erythroid hypoplasia (congenital or acquired). Correlation with clinical history and other lab data is necessary. /pablo/ VIPUL DASILVA MD STAFF PATHOLOGIST Signed May 14, 2024@10:47 Performing Laboratory: Surgical Pathology Report Performed By: [facility] [CLIA# [id number]] [place] [address] $FTR - - - - - - - - - - - - - - - - - - - - - - - - - - - - - - - - - - - - - - - - (End of report) VIPUL orantes Date May 14, 2024 - - - - - - - - - - - - - - - - - - - - - - - - - - - - - - - - - - - - - - - - JUAN THOMPSON STANDARD FORM 515 ID:[id number] SEX:M :1945 AGE: 78 LOC:[id number] PCP: Sonia Phillips /pablo/ VIPUL DASILVA MD STAFF PATHOLOGIST Signed: 05/14/2024 10:47 VIPUL DASILVA [facility] Encounter Notes: All associated encounter notes This section contains the clinical notes associated to the Encounter. Date/Time Encounter Note(s) Provider Source Apr 20, 2024 10:30 AM NEUROLOGY ATTENDIN Dena NOTE: LOCAL TITLE: NEUROLOGY CLINIC NOTE STANDARD TITLE: NEUROLOGY ATTENDING NOTE DATE OF NOTE: APR 20, 2024@10:30 ENTRY DATE: APR 22, 2024@10:01:13 AUTHOR: APRIL DUNN COSIGNER: URGENCY: STATUS: COMPLETED The patient returns to neurology clinic for follow-up. He was last seen in October 2023. He has been referred for complaints of shuffling gait, hypophonia and difficulty turning when walking. The patient reports he has not had any significant changes. He does note that it is difficult for him to project when he speaks. He also endorses vivid dreaming. He will sometimes wake up and still believe he is in a dream. He reports waking up and hearing his mother who 15 years ago. He walks with a 4 wheeled walker. He reports this significantly helps his balance. He has been quite unsteady. He does report a couple near falls but no actual falls. Examination: Mental status: The patient is alert and oriented x 3. Speech and language are normal. Cranial nerves: He does have masked facies and hypophonia. Motor: Tone is increased in the bilateral upper extremities left greater than right. It is worse with distraction. Gait: He takes somewhat short steps and walks with a four-wheel walker. Impression and plan: 78-year-old man with a history of parkinsonism. He has not had any obvious progression since his last visit. I will refer the patient for a DaTscan to help evaluate for Parkinson's disease. I will plan to have the patient return to clinic in 6 months time for further follow-up. /pablo/ APRIL DUNN STAFF NEUROLOGIST Signed: 04/22/2024 10:02 APRIL DUNN [facility] Apr 20, 2024 09:44 AM NEUROLOGY NURSING OUTPATIENT NOTE: LOCAL TITLE: NEUROLOGY CLINIC NURSING NOTE STANDARD TITLE: NEUROLOGY NURSING OUTPATIENT NOTE DATE OF NOTE: APR 20, 2024@09:44 ENTRY DATE: APR 20, 2024@09:44:49 AUTHOR: MARY GRACE PACHECO COSIGNER: URGENCY: STATUS: COMPLETED Type of visit: Appointment Check In Reason for Visit: RTC Vital Signs: Blood Pressure: 105/66 (04/20/2024 09:38) Pulse: 65 (04/20/2024 09:38) Respiration: 16 (04/20/2024 09:38) Temperature: 98.5 F [36.9 C] (04/20/2024 09:38) Weight: 156.8 lb [71.12 kg] (03/16/2024 09:03) Height: 68 in [172.7 cm] (10/09/2023 09:43) BMI: 23.9 Pain: 5 (04/20/2024 09:38) Allergies: SULFAMETHOXAZOLE (Feb 07, 2022) EMPAGLIFLOZIN (Jun 06, 2022) Medications: Active Outpatient Medications and Supplies: Active Outpatient Medications (including Supplies): Active Outpatient Medications Status 1) ACETAMINOPHEN 500MG TAB TAKE ONE TABLET BY MOUTH ACTIVE EVERY 6 HOURS NEEDED FOR PAIN 2) ALBUTEROL 90MCG (CFC-F) 200D ORAL INHL INHALE 2 PUFFS ACTIVE BY INHALATION FOUR TIMES A DAY NEEDED FOR SHORTNESS OF BREATH 3) APIXABAN 5MG TAB TAKE ONE TABLET BY MOUTH EVERY 12 ACTIVE HOURS TO PREVENT AND/OR TREAT BLOOD CLOTS 4) ARIPIPRAZOLE 20MG TAB TAKE ONE TABLET BY MOUTH EVERY ACTIVE DAY FOR BIPOLAR DISORDER DOSE INCREASED 11-23-22 5) ATORVASTATIN CALCIUM 10MG TAB TAKE ONE TABLET BY ACTIVE MOUTH AT BEDTIME 6) CALCIUM 200MG (CA CITRATE-950MG) TAB TAKE TWO TABLETS ACTIVE BY MOUTH TWICE A DAY FOR CALCIUM SUPPLEMENT 7) CYANOCOBALAMIN 1000MCG TAB TAKE ONE TABLET BY MOUTH ACTIVE EVERY DAY 8) DICLOFENAC NA 1% TOP GEL APPLY 4 GRAMS TOPICALLY FOUR ACTIVE TIMES A DAY NEEDED TO AFFECTED AREA FOR PAIN 9) FERROUS SULFATE 325MG TAB TAKE ONE TABLET BY MOUTH ACTIVE EVERY DAY FOR IRON SUPPLEMENT 10) LIDOCAINE 5% PATCH APPLY 1 PATCH TOPICALLY EVERY DAY ACTIVE FOR UP TO 12 HOURS FOR PAIN 11) MAGNESIUM OXIDE 400MG TAB TAKE TWO TABLETS BY MOUTH ACTIVE (S) EVERY DAY FOR SUPPLEMENTATION 12) METFORMIN HCL 500MG TAB TAKE ONE TABLET BY MOUTH ACTIVE EVERY DAY FOR DIABETES *NOTE:WHOLE TABLETS 13) METOPROLOL SUCCINATE 25MG SA TAB TAKE THREE TABLETS ACTIVE BY MOUTH EVERY DAY FOR HEART AND BLOOD PRESSURE 14) MULTIVIT/OPHTH AREDS2/LUTE/ZEAX CAP/TAB TAKE 1 ACTIVE CAP/TAB BY MOUTH TWICE A DAY WITH MEALS 15) MULTIVITAMIN CAP/TAB TAKE 1 TABLET BY MOUTH EVERY DAY ACTIVE FOR SUPPLEMENT 16) OMEPRAZOLE 40MG EC CAP TAKE ONE CAPSULE BY MOUTH ACTIVE TWICE A DAY ON AN EMPTY STOMACH, AT LEAST 30 MINUTES PRIOR TO A MEAL TO DECREASE STOMACH ACID 17) VENLAFAXINE HCL 150MG 24HR SA CAP TAKE ONE CAPSULE BY ACTIVE MOUTH EVERY DAY Patient reports the following changes regarding the current pharmacy list of medications: The above medication list confirmed with patient. A copy of the above medication list given to the MD for review and update. Provider will give printed copy of medication list to patient with any changes documented on printed medication list. /pablo/ MARY GRACE PACHECO LPN LPN Signed: 04/20/2024 09:45 MARY GRACE PACHECO [facility]
--- OUTSIDE RECORDS SUMMARY | 2024-07-06 16:18 | XMS_ITS | Encounter Summary ---
Author Name [facility] [facility] [place] [facility] [place] [place] Address [address] [place] [address] Care Team Providers Care Rn Security Name Role Phone SONIA PHILLIPS Primary Care [...] PART A Sep 26, 2012 PART A [id number] [phone] JUAN THOMPSON JR PATIENT MEDICARE ([place]NR) MEDICARE (M) PART B Sep 26, 2012 PART B [id number] [phone] JUAN THOMPSON JR PATIENT Selected Encounter This section includes the information on record at [place] for the Encounter. Date/Time Encounter Type Encounter Description Reason Pro vider Source Apr 22, 2024 08:23 AM Outpatient Encounter PRIMARY CARE/MEDICINE IHE Encounter Template Text not used by [place] Plan of Treatment: Future Appointments (+ 6 months) and Future Tests (+/- 45 days) The Plan of Treatment section includes future care activities for the [facility] [place] [facility] This section includes future appointments and future orders which are active, pending or scheduled. Future Appointments This section includes appointments that were scheduled to occur 6 months from the date of the Encounter, up to a maximum of 20 appointments. The data comes from all [place] treatment facilities. Appointment Date/Time Appointment Type Appointme nt Facility Name Apr 29, 2024 10:30 AM AMBULATORY - [place] [facility] May 13, 2024 12:00 PM AMBULATORY - NONE [place] [facility] May 13, 2024 01:00 PM AMBULATORY - MEDICINE [place] [facility] May 20, 2024 09:45 AM AMBULATORY - NONE [place] [facility] May 26, 2024 09:15 AM AMBULATORY - MEDICINE [place] [facility] Jun 03, 2024 10:00 AM AMBULATORY - MEDICINE [place] [facility] Jun 04, 2024 09:30 AM AMBULATORY [place]CHIATRY [place] [facility] Jun 05, 2024 01:30 PM AMBULATORY - MEDICINE [place] [facility] Jun 12, 2024 07:30 AM AMBULATORY - NONE [place] [facility] Jun 12, 2024 08:30 AM AMBULATORY - MEDICINE [place] [facility] Jun 23, 2024 10:15 AM AMBULATORY - MEDICINE [place] [facility] Jul 06, 2024 08:30 AM AMBULATORY - NONE [place] [facility] Jul 16, 2024 07:30 AM AMBULATORY - MEDICINE [place] [facility] Jul 16, 2024 08:30 AM AMBULATORY - MEDICINE [place] [facility] Jul 16, 2024 09:00 AM AMBULATORY [place] PS[place]ATRY [place] [facility] Jul 16, 2024 09:30 AM AMBUL[place]ORY [place]ATRY [place] [facility] Oct 07, 2024 09:00 AM AMBULATORY - MEDICINE [place] [facility] Oct 19, 2024 09:30 AM AMBUL[place]ORY [place]UROLOGY [place] [facility] Active, Pending, and Scheduled Orders This section includes a listing of several types of active, pending, and scheduled orders, including clinic medications orders, diagnostic test orders, procedure orders and consult orders; where the start date of the order is 45 days before the date of the Encounter or 45 days after the date of theEncounter. The data comes from all [place] treatment facilities. Test Date/Time Test Type Test Details Facility Name Mar 18, 2024 05:05 PM Consult Order CARDIAC EC HO OUTPT-ALL SITES Cons [employer] [facility] Lab Results: +/- 30 days of the encounter This section includes the Chemistry and Hematology Lab Results on record with [place] for the patient. Radiology Reports and Pathology Reports are provided separately, in subsequent sections. Lab Results This section contains the Chemistry/Hematology Results that were resulted 30 days before or 30 daysafter the date of the Encounter. Date/Time Source Result Type Result - Unit Interpretation Reference Range Comment May 20, 2024 09:39 AM [facility] FINGERSTICK GLUCOSE Specimen Type: BLOOD Comment: Save Result Ordering Provider: TANK PHILLIPS Report Released Date/Time: May 20, 2024 03:03 PM Reporting Lab: [facility] [address] Performing Lab: [facility] [address] FINGERSTICK GLUCOSE 148 mg/dL H 70-100 May 13, 2024 11:44 AM [facility] KAPPA/LAMBDA LC FREE,RATIO Specimen Type: SERUM Comment: [...] therapy of these disorders. Test Performed by [employer] [facility], [address] [place] [address] Devante Meyer M.D., Ph.D., Director of Laboratories , CLIA [id number] Ordering Provider: RENUKA JOHNSON Report Released Date/Time: Apr 24, 2024 04:08 PM Reporting Lab: [facility] [address] Performing Lab: [address] [place] .KAPPA LT CHAIN,FREE 27.3 mg/L H 3.3-19.4 .LAMBDA LC,FREE 15.8 mg/L 5.7-26.3 .KAPPA/LAMBDA, FREE 1.73 H 0.26-1.65 May 13, 2024 11:44 AM [facility] LD,TOTAL Specimen Type: PLASMA No comment entered. Ordering Provider: RENUKA JOHNSON Report Released Date/Time: Apr 24, 2024 04:08 PM Reporting Lab: [facility] [address] Performing Lab: [facility] [address] LD,TOTAL 141 U/L 125-220 May 13, 2024 11:44 AM [facility] URIC ACID Specimen Type: PLASMA No comment entered. Ordering Provider: RENUKA JOHNSON Report Released Date/Time: Apr 24, 2024 04:08 PM Reporting Lab: [facility] [address] Performing Lab: [facility] [address] URIC ACID 3.1 mg/dL L 3.7-7.7 May 13, 2024 11:44 AM [facility] B 12 Specimen Type: SERUM No comment entered. Ordering Provider: RENUKA JOHNSON Report Released Date/Time: Apr 24, 2024 04:08 PM Reporting Lab: [facility] [address] Performing Lab: [facility] [address] B 12 722 pg/mL 213-816 May 13, 2024 11:44 AM [facility] FOLATE Specimen Type: SERUM No comment entered. Ordering Provider: RENUKA JOHNSON Report Released Date/Time: Apr 24, 2024 04:08 PM Reporting Lab: [facility] [address] Performing Lab: [facility] [address] FOLATE 14.6 ng/mL >7.0 May 13, 2024 11:44 AM [facility] PHOSPHORUS Specimen Type: PLASMA No comment entered. Ordering Provider: RENUKA JOHNSON Report Released Date/Time: Apr 24, 2024 04:08 PM Reporting Lab: [facility] [address] Performing Lab: [facility] [address] PHOSPHORUS 3.3 mg/dL 2.3-4.3 May 13, 2024 11:44 AM [facility] IRON GROUP Specimen Type: SERUM No comment entered. Ordering Provider: RENUKA JOHNSON Report Released Date/Time: Apr 24, 2024 04:08 PM Reporting Lab: [facility] [address] Performing Lab: [facility] [address] IRON 101 ug/dL 65-175 TIBC,CALCULATE D 313 ug/dL 250-425 FERRITIN pending IRON SATURATION 32 20-50 TRANSFERRIN 250 mg/dL 163-382 May 13, 2024 11:44 AM [facility] BETA 2-MICROGLOBULIN Specimen Type: SERUM No comment entered. Ordering Provider: RENUKA JOHNSON Report Released Date/Time: Apr 24, 2024 04:08 PM Reporting Lab: [facility] [address] Performing Lab: [facility] [address] BETA 2-MICROGLOBULI N 3.36 mg/L H 0.97-2.64 May 13, 2024 11:44 AM [facility] PSA Specimen Type: SERUM No comment entered. Ordering Provider: ABBY MEANS Report Released Date/Time: May 12, 2024 08:28 PM Reporting Lab: [facility] [address] Performing Lab: [facility] [address] PSA 0.49 ng/mL <4.00 May 13, 2024 11:44 AM [facility] TOTAL IMMUNOGLOB (IGA,IGG,IGM) Specimen Type: PLASMA No comment entered. Ordering Provider: RENUKA JOHNSON Report Released Date/Time: Apr 24, 2024 04:08 PM Reporting Lab: [facility] [address] Performing Lab: [facility] [address] IGM 78.8 mg/dL 22.0-293.0 IGG 714.3 mg/dL 540.0-18 22 .0 IGA 123.8 mg/dL 63.0-645.0 May 13, 2024 11:44 AM [facility] TESTOSTERONE Specimen Type: SERUM No comment entered. Ordering Provider: ABBY MEANS Report Released Date/Time: May 12, 2024 08:30 PM Reporting Lab: [facility] [address] Performing Lab: [facility] [address] TESTOSTERONE 534 ng/dL 221-870 May 13, 2024 11:44 AM [facility] CBC & DIFF Specimen Type: BLOOD Comment: Automated Differential Performed Ordering Provider: RENUKA JOHNSON Report Released Date/Time: Apr 24, 2024 04:08 PM Reporting Lab: [facility] [address] Performing Lab: [facility] [address] WBC 8.3 4.0-11.0 RBC 4.04 L 4.60-6.20 [...] 0.0 0.0-0.1 May 13, 2024 11:44 AM [facility] COMPREHENSIVE METABOLIC PANEL+MG Specimen Type: PLASMA No comment entered. Ordering Provider: RENUKA JOHNSON Report Released Date/Time: Apr 24, 2024 04:08 PM Reporting Lab: [facility] [address] Performing Lab: [facility] [address] CREATININE 1.0 mg/dL 0.7-1.2 UREA NITROGEN 26 [...] 78 >60 May 13, 2024 11:44 AM [facility] PERIPHERAL SMEAR PATHOLOGIST REVIEW Specimen Type: BLOOD No comment entered. Ordering Provider: RENUKA JOHNSON Report Released Date/Time: May 13, 2024 01:51 PM Reporting Lab: [facility] [address] Performing Lab: [facility] [address] PERIPHERAL SMEAR PATHOLOGIST REVIEW SLIDES MADE Apr 22, 2024 10:41 AM [facility] ELP/IMMFIX,SERUM PANEL Specimen Type: SERUM Comment: Decreased gamma fraction may be seen in certain lymphoproliferat jeff disorders. Recommend submitting a 24 hr urine for ELP and immunofixation tests. Ordering Provider: LYUBOV YEUNG Report Released Date/Time: Apr 22, 2024 10:20 AM Reporting Lab: [facility] [address] Performing Lab: [facility] [address] PROTEIN,TOTAL 6.0 g/dL L 6.4-8.3 .ALBUMIN FRACTION 3.63 g/dL L 3.66-4.78 .ALPHA 1 FRACTION 0.37 g/dL 0.14-0.38 .ALPHA 2 FRACTION 0.81 g/dL 0.50-0.90 .BETA 1 FRACTION 0.34 g/dL 0.33-0.55 .BETA 2 FRACTION 0.28 g/dL 0.20-0.52 .GAMMA FRACTION 0.57 g/dL L 0.58-1.72 .TOTAL PROTEIN 6.0 g/dL 6.0-8.3 .INTERPRETATIO N NO MONOCLONALS DETECTED Apr 22, 2024 10:32 AM [facility] ELP/IMMFIX,URINE RANDOM PANEL Specimen Type: URINE No comment entered. Ordering Provider: LYUBOV YEUNG Report Released Date/Time: Apr 22, 2024 10:20 AM Reporting Lab: [facility] [address] Performing Lab: [facility] [address] PROTEIN,T. RANDOM UR <6.8 mg/dL <14.0 .INTERPRETATIO N,UR NO MONOCLONALS DETECTED Apr 22, 2024 08:15 AM [facility] BASIC METABOLIC PANEL+MG Specimen Type: PLASMA No comment entered. Ordering Provider: LYUBOV YEUNG Report Released Date/Time: Oct 09, 2023 11:10 AM Reporting Lab: [facility] [address] Performing Lab: [facility] [address] CREATININE 1.0 mg/dL 0.7-1.2 UREA NITROGEN 18 mg/dL 8-26 GLUCOSE 217 mg/dL H 70-100 SODIUM 144 mmol/L 136-145 POTASSIUM 4.3 mmol/L 3.5-5.1 CHLORIDE 106 mmol/L 98-107 CO2 31 mmol/L H 22-29 CALCIUM 9.6 mg/dL 8.4-10.2 MAGNESIUM 1.4 mg/dL L 1.6-2.6 ANION GAP 7 mmol/L 5-15 .CREAT EGFR(CKD-EPI) 78 >60 Apr 22, 2024 08:15 AM [facility] CBC Specimen Type: BLOOD No comment entered. Ordering Provider: LYUBOV YEUNG Report Released Date/Time: Oct 09, 2023 11:10 AM Reporting Lab: [facility] [address] Performing Lab: [facility] [address] WBC 9.8 4.0-11.0 RBC 4.45 L 4.60-6.20 HGB 13.0 g/dL L 13.5-17.9 HCT 40.2 L 41-54 MCV 90.3 fL 80-100 MCH 29.2 pg 27-33 MCHC 32.3 g/dL 32.0-37.5 PLT 328 150-400 MPV 9.7 fL 9.1-13.0 RDW 14.3 11.5-14.5 Apr 20, 2024 08:28 AM [facility] POC CREATININE Specimen Type: BLOOD No comment entered. Ordering Provider: TANK PHILLIPS Report Released Date/Time: Apr 20, 2024 08:30 AM Reporting Lab: [facility] [address] Performing Lab: [facility] [address] POC CREATININE 1.1 mg/dL 0.6-1.3 Vital Signs: All taken on the encounter date This section contains inpatient and outpatient Vital Signs collected on the date of the Encounter. Date/Time Temperature Pulse Blood Pressure Respiratory Rate SP02 Pain Height Weight Body Mass Index Source Apr 22, 2024 10:20 AM 88 [facility] Apr 22, 2024 08:49 AM 102/69 [facility] Apr 22, 2024 08:40 AM 97.6 120 94/64 18 97 5 68 154.8 24 [facility] Social History: Smoking Status (Most [...] 21, 2023 10:30 AM [place]-TOBACCO FORMER USER [facility] Tobacco Use History This section includes a history of the smoking, or tobacco-related health factors, that were collected on or before the date of the Encounter. The data comes from the [place] facility where the Encounter took place. Date/Time Smoking Status/Tobacco Use Comment F acility Aug 21, 2023 10:30 AM VA-TOBACCO QUIT 15 YRS OR MORE [facility] Aug 15, 2022 09:00 AM VA-TOBACCO FORMER USER [facility] Aug 15, 2022 09:00 AM VA-TOBACCO QUIT [...] the Encounter. The data comes from all [place] treatment facilities. Date/Time Radiology Report Provider Source May 20, 2024 09:[address] BODY W/O CONTRAST (P): JUAN THOMPSON [id number] -1945 M Exm Date: MAY 20, 2024@09:14 Req Phys: LYUBOV YEUNG Pat Loc: [facility] APACT L RES 03 WH 4F (Req' Img Loc: NUC MED Service: [place] [address] (Case [id number] COMPLETE) SKULL-THIGH PET IMAGE W/CT (NM Detailed) CPT:00266 Reason for Study: eval for malignancy (Case [...] pager listed below: User placing orders pager: [phone] LAST CREATININE 1.0 (04/22/24) Report Status: Verified Date Reported: MAY 20, 2024 Date Verified: MAY 20, 2024 [employer] E-Sig:/ES/RUFUS GROVES MD, FACR, CCD Report: PET/CT [...] Staff: RUFUS GROVES MD, FACR, STAFF RADIOLOGIST (Graphite Pan Drier Tender) /BSF RUFUS GROVES [facility] Apr 20, 2024 08:[address] (CAP) CHEST/ABD/PELVIS (P): JUAN THOMPSON [id number] -1945 M Exm Date: APR 20, 2024@08:07 Req Phys: RACHEL WATSON Pat Loc: [facility] APACT L RES 03 WH 4F (Req' Img Loc: CT IMAGING Service: [place] [address] (Case [id number] COMPLETE) CT (CAP) CHEST W CONTRAST (CT Detailed) CPT:79205 Contrast Media : Non-ionic Iodinated Reason for Study: 78M with weight loss & lymphadenopathy, CT for malignancy eval (Case 148 COMPLETE) CT (CAP) ABDOMEN/PELVIS W CONTRAS(CT Detailed) CPT:45075 Contrast Media : Non-ionic Iodinated Clinical History: [...] any questions or notifications of critical findings: [phone] If ordering provider is a trainee, enter [...] PLASMA .CREAT EGFR(CKD-E 63 Ref: >=60 Allergies: ([place] only) SULFAMETHOXAZOLE (Feb 07, 2022) EMPAGLIFLOZIN (Jun 06, 2022) Report Status: Verified Date Reported: APR 20, 2024 Date Verified: APR 20, 2024 [employer] Pan Drier Tender E-Sig:/ES/JONATAN MILLER MD Report: CT CHEST, ABDOMEN [...] Primary Interpreting Staff: JONATAN MILLER MD, RADIOLOGIST (Graphite Pan Drier Tender) /JONATAN GOMEZ [facility] Pathology Reports: +/- 30 days of the [...] the Encounter. The data comes from all [place] treatment facilities. Date/Time Pathology Report Provider Source May 14, 2024 10:47 AM LR SURGICAL PATHOLOGY REPORT: LOCAL TITLE: LR SURGICAL PATHOLOGY REPORT STANDARD TITLE: PATHOLOGY REPORT DATE OF NOTE: MAY 14, 2024@10:47:04 ENTRY DATE: MAY 14, 2024@10:47:04 AUTHOR: VIPUL DASILVA COSIGNER: URGENCY: STATUS: COMPLETED $APHDR Reporting Lab: [facility] [CLIA# [id number]] [place] [address] - - - - - - - [...] Performing Laboratory: Surgical Pathology Report Performed By: [facility] [CLIA# [id number]] [place] [address] $FTR - - - - - - - - - - - - - - - - - - - - - - - - - - - - - - - - - - - - - - - - (End of report) VIPUL DASILVA MD rolanda Date May 14, 2024 - - - - - - - - - - - - - - - - - - - - - - - - - - - - - - - - - - - - - - - - JUAN THOMPSON JR STANDARD FORM 515 ID:[id number] SEX:M :1945 AGE: 78 LOC:[id number] PCP: Sonia Phillips /pablo/ VIPUL DASILVA MD STAFF PATHOLOGIST Signed: 05/14/2024 10:47 VIPUL DASILVA [facility] Encounter Notes: All associated encounter notes This section contains the clinical notes associated to the Encounter. Date/Time Encounter Note(s) Provider Source Apr 22, 2024 08:23 AM ADVANCE DIRECTIVE: LOCAL TITLE: AD NOTIFICATION AND SCREENING STANDARD TITLE: ADVANCE DIRECTIVE DATE OF NOTE: APR 22, 2024@08:23 ENTRY DATE: APR 22, 2024@08:23:44 AUTHOR: SAÚL LEVY EXP COSIGNER: URGENCY: STATUS: COMPLETED ADVANCE DIRECTIVE NOTIFICATION: Patient was given written notification of the following rights: 1. Accept or refuse any medical treatment. 2. Complete a durable power of senior trial attorney for health care. 3. Complete a living will. ADVANCE DIRECTIVE SCREENING: Does patient have an Advance Directive? The patient does not have an Advance Directive. The patient does not wish to create an Advance Directive for health care. Comment: declined /aneesh LEVY Advance Yield Engineer Signed: 04/22/2024 08:24 SAÚL LEVY [facility]
--- OUTSIDE RECORDS SUMMARY | 2024-07-06 16:18 | XMS_ITS | Encounter Summary ---
Author Name [facility] [facility] [place] Address [address] [place] [address] Care Team Providers Care Van Loader Name Role Phone SONIA PHILLIPS Primary Care [...] PART A Sep 26, 2012 PART A [id number] [facility] [phone] JUAN THOMPSON JR PATIENT MEDICARE (WNR) MEDICARE (M) PART B Sep 26, 2012 PART B [id number] [phone] JUAN THOMPSON JR PATIENT Selected Encounter This section includes the information on record at [place] for the Encounter. Date/Time Encounter Type Encounter Description Reason Provider Source Apr 22, 2024 10:00 AM OFFICE O/P EST MOD 30 MIN PRIMARY CARE/MEDICINE ICD-10-CM R63.4 Abnormal weight loss CIPRIANO ZENG Baldo Encounter Template Text not used by [place] Assessments - Encounter Diagnoses This section includes the primary and secondary diagnoses documented for the Encounter. Date/Time Primary/Secondary Diagnosis Diagnosis Name Provider Source Apr 22, 2024 04:44 PM PRIMARY Abnormal weight loss ELOISE YEUNG OR R [facility] Apr 22, 2024 04:44 PM SECONDARY Bronchiectasis, uncomplicated [facility] Apr 22, 2024 04:44 PM SECONDARY Encounter for immunization SHADES,CAMILLA A [facility] Apr 22, 2024 04:44 PM SECONDARY Gastro-esophageal reflux disease without esophagitis [facility] Apr 22, 2024 04:44 PM SECONDARY Generalized anxiety disorder [facility] Apr 22, 2024 04:44 PM 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 [facility] Apr 22, 2024 04:44 PM SECONDARY Major depressive disorder, recurrent, moderate [facility] Apr 22, 2024 04:44 PM SECONDARY Type 2 diabetes mellitus with unspecified complications [facility] Apr 22, 2024 04:44 PM SECONDARY Unspecified atrial fibrillation [facility] Plan of Treatment: Future Appointments (+ 6 months) and Future Tests (+/- 45 days) The Plan of Treatment section includes future care activities for the patient from all [facility]. This section includes future appointments and future orders which are active, pending or scheduled. Future Appointments This section includes appointments that were scheduled to occur 6 months from the date of the Encounter, up to a maximum of 20 appointments. The data comes from all [facility]. Appointment Date/Time Appointment Type Appointme nt Facility Name Apr 29, 2024 10:30 AM AMBULATORY - SURGERY [facility] [place] [facility] May 13, 2024 12:00 PM AMBULATORY - NONE [facility] May 13, 2024 01:00 PM AMBULATORY - MEDICINE [facility] May 20, 2024 09:45 AM AMBULATORY - NONE [facility] May 26, 2024 09:15 AM AMBULATORY - MEDICINE [facility] Jun 03, 2024 10:00 AM AMBULATORY - MEDICINE [facility] Jun 04, 2024 09:30 AM AMBUL[place]ORY [place] [facility] Jun 05, 2024 01:30 PM AMBULATORY - MEDICINE [place] [facility] Jun 12, 2024 07:30 AM AMBULATORY - NONE [place] [facility] Jun 12, 2024 08:30 AM AMBULATORY - [place]IC[place] [facility] Jun 23, 2024 10:15 AM AMBULATORY - [place]IC[place] [facility] Jul 06, 2024 08:30 AM AMBULATORY - NONE [place] [facility] Jul 16, 2024 07:30 AM AMBULATORY - [place]IC[place] [facility] Jul 16, 2024 08:30 AM AMBUL[place]ORY - [place]IC[place] [facility] Jul 16, 2024 09:00 AM AMBUL[place]ORY [place] [facility] Jul 16, 2024 09:30 AM AMBUL[place]ORY [place] [facility] Oct 07, 2024 09:00 AM AMBULATORY - MEDICINE [place] [facility] Oct 19, 2024 09:30 AM AMBULATORY - [place]UROLOGY [place] [facility] Active, Pending, and Scheduled Orders This section includes a listing of several types of active, pending, and scheduled orders, including clinic medications orders, diagnostic test orders, procedure orders and consult orders; where the start date of the order is 45 days before the date of the Encounter or 45 days after the date of theEncounter. The data comes from all [place] treatment facilities. Test Date/Time Test Type Test Details Facility Name Mar 18, 2024 05:05 PM Consult Order CARDIAC EC HO OUTPT-ALL SITES Cons Mud Engineer's Choice [facility] Lab Results: +/- 30 days of [...] Range Comment May 20, 2024 09:39 AM [facility] FINGERSTICK GLUCOSE Specimen Type: BLOOD Comment: Save Result Ordering Provider: TANK PHILLIPS Report Released Date/Time: May 20, 2024 03:03 PM Reporting Lab: [facility] [phone] Performing Lab: [facility] [phone] FINGERSTICK GLUCOSE 148 mg/dL H 70-100 May 13, 2024 11:44 AM [facility] KAPPA/LAMBDA LC FREE,RATIO Specimen Type: SERUM Comment: [...] therapy of these disorders. Test Performed by [facility], [facility], [address] [place] [address] Devante Meyer M.D., Ph.D., Director of Laboratories , [facility] [id number] Ordering Provider: RENUKA JOHNSON Report Released Date/Time: Apr 24, 2024 04:08 PM Reporting Lab: [facility] [phone] Performing Lab: [address] .KAPPA LT CHAIN,FREE 27.3 mg/L H 3.3-19.4 .LAMBDA LC,FREE 15.8 mg/L 5.7-26.3 .KAPPA/LAMBDA, FREE 1.73 H 0.26-1.65 May 13, 2024 11:44 AM [facility] LD,TOTAL Specimen Type: PLASMA No comment entered. Ordering Provider: RENUKA JOHNSON Report Released Date/Time: Apr 24, 2024 04:08 PM Reporting Lab: [facility] [address] Performing Lab: [facility] [phone] LD,TOTAL 141 U/L 125-220 May 13, 2024 11:44 AM [facility] B 12 Specimen Type: SERUM No comment entered. Ordering Provider: RENUKA JOHNSON Report Released Date/Time: Apr 24, 2024 04:08 PM Reporting Lab: [facility] [phone] Performing Lab: [facility] [address] B 12 722 pg/mL 213-816 May 13, 2024 11:44 AM [facility] URIC ACID Specimen Type: PLASMA No comment entered. Ordering Provider: RENUKA JOHNSON Report Released Date/Time: Apr 24, 2024 04:08 PM Reporting Lab: [facility] [phone] Performing Lab: [facility] [address] URIC ACID 3.1 mg/dL L 3.7-7.7 May 13, 2024 11:44 AM [facility] FOLATE Specimen Type: SERUM No comment entered. Ordering Provider: RENUKA JOHNSON Report Released Date/Time: Apr 24, 2024 04:08 PM Reporting Lab: [facility] [phone] Performing Lab: [facility] [address] FOLATE 14.6 ng/mL >7.0 May 13, 2024 11:44 AM [facility] IRON GROUP Specimen Type: SERUM No comment entered. Ordering Provider: RENUKA JOHNSON Report Released Date/Time: Apr 24, 2024 04:08 PM Reporting Lab: [facility] [address] Performing Lab: [facility] [address] IRON 101 ug/dL 65-175 TIBC,CALCULATE D 313 ug/dL 250-425 FERRITIN pending IRON SATURATION 32 20-50 TRANSFERRIN 250 mg/dL 163-382 May 13, 2024 11:44 AM [facility] PHOSPHORUS Specimen Type: PLASMA No comment entered. Ordering Provider: RENUKA JOHNSON Report Released Date/Time: Apr 24, 2024 04:08 PM Reporting Lab: [facility] [address] Performing Lab: [facility] [phone] PHOSPHORUS 3.3 mg/dL 2.3-4.3 May 13, 2024 11:44 AM [facility] BETA 2-MICROGLOBULIN Specimen Type: SERUM No comment entered. Ordering Provider: RENUKA JOHNSON Report Released Date/Time: Apr 24, 2024 04:08 PM Reporting Lab: [facility] [phone] Performing Lab: [facility] [address] BETA 2-MICROGLOBULI N 3.36 mg/L H 0.97-2.64 May 13, 2024 11:44 AM [facility] PSA Specimen Type: SERUM No comment entered. Ordering Provider: ABBY MEANS Report Released Date/Time: May 12, 2024 08:28 PM Reporting Lab: [facility] [address] Performing Lab: [facility] [address] PSA 0.49 ng/mL <4.00 May 13, 2024 11:44 AM [facility] TESTOSTERONE Specimen Type: SERUM No comment entered. Ordering Provider: ABBY MEANS Report Released Date/Time: May 12, 2024 08:30 PM Reporting Lab: [facility] [address] Performing Lab: [facility] [address] TESTOSTERONE 534 ng/dL 221-870 May 13, 2024 11:44 AM [facility] CBC & DIFF Specimen Type: BLOOD Comment: Automated Differential Performed Ordering Provider: RENUKA JOHNSON Report Released Date/Time: Apr 24, 2024 04:08 PM Reporting Lab: [facility] [address] Performing Lab: [facility] [address] WBC 8.3 4.0-11.0 RBC 4.04 L 4.60-6.20 [...] 0.0 0.0-0.1 May 13, 2024 11:44 AM [facility] TOTAL IMMUNOGLOB (IGA,IGG,IGM) Specimen Type: PLASMA No comment entered. Ordering Provider: RENUKA JOHNSON Report Released Date/Time: Apr 24, 2024 04:08 PM Reporting Lab: [facility] [address] Performing Lab: [facility] [address] IGM 78.8 mg/dL 22.0-293.0 IGG 714.3 mg/dL 540.0-18 22 .0 IGA 123.8 mg/dL 63.0-645.0 May 13, 2024 11:44 AM [facility] COMPREHENSIVE METABOLIC PANEL+MG Specimen Type: PLASMA No comment entered. Ordering Provider: RENUKA JOHNSON Report Released Date/Time: Apr 24, 2024 04:08 PM Reporting Lab: [facility] [address] Performing Lab: [facility] [address] CREATININE 1.0 mg/dL 0.7-1.2 UREA NITROGEN 26 [...] 78 >60 May 13, 2024 11:44 AM [facility] PERIPHERAL SMEAR PATHOLOGIST REVIEW Specimen Type: BLOOD No comment entered. Ordering Provider: RENUKA JOHNSON Report Released Date/Time: May 13, 2024 01:51 PM Reporting Lab: [facility] [address] Performing Lab: [facility] [address] PERIPHERAL SMEAR PATHOLOGIST REVIEW SLIDES MADE Apr 22, 2024 10:41 AM [facility] ELP/IMMFIX,SERUM PANEL Specimen Type: SERUM Comment: Decreased gamma fraction may be seen in certain lymphoproliferat jeff disorders. Recommend submitting a 24 hr urine for ELP and immunofixation tests. Ordering Provider: LYUBOV YEUNG Report Released Date/Time: Apr 22, 2024 10:20 AM Reporting Lab: [facility] [address] Performing Lab: [facility] [address] PROTEIN,TOTAL 6.0 g/dL L 6.4-8.3 .ALBUMIN FRACTION 3.63 g/dL L 3.66-4.78 .ALPHA 1 FRACTION 0.37 g/dL 0.14-0.38 .ALPHA 2 FRACTION 0.81 g/dL 0.50-0.90 .BETA 1 FRACTION 0.34 g/dL 0.33-0.55 .BETA 2 FRACTION 0.28 g/dL 0.20-0.52 .GAMMA FRACTION 0.57 g/dL L 0.58-1.72 .TOTAL PROTEIN 6.0 g/dL 6.0-8.3 .INTERPRETATIO N NO MONOCLONALS DETECTED Apr 22, 2024 10:32 AM [facility] ELP/IMMFIX,URINE RANDOM PANEL Specimen Type: URINE No comment entered. Ordering Provider: LYUBOV YEUNG Report Released Date/Time: Apr 22, 2024 10:20 AM Reporting Lab: [facility] [address] Performing Lab: [facility] [address] PROTEIN,T. RANDOM UR <6.8 mg/dL <14.0 .INTERPRETATIO N,UR NO MONOCLONALS DETECTED Apr 22, 2024 08:15 AM [facility] CBC Specimen Type: BLOOD No comment entered. Ordering Provider: LYUBOV YEUNG Report Released Date/Time: Oct 09, 2023 11:10 AM Reporting Lab: [facility] [address] Performing Lab: [facility] [address] WBC 9.8 4.0-11.0 RBC 4.45 L 4.60-6.20 HGB 13.0 g/dL L 13.5-17.9 HCT 40.2 L 41-54 MCV 90.3 fL 80-100 MCH 29.2 pg 27-33 MCHC 32.3 g/dL 32.0-37.5 PLT 328 150-400 MPV 9.7 fL 9.1-13.0 RDW 14.3 11.5-14.5 Apr 22, 2024 08:15 AM [facility] BASIC METABOLIC PANEL+MG Specimen Type: PLASMA No comment entered. Ordering Provider: LYUBOV YEUNG Report Released Date/Time: Oct 09, 2023 11:10 AM Reporting Lab: [facility] [address] Performing Lab: [facility] [address] CREATININE 1.0 mg/dL 0.7-1.2 UREA NITROGEN 18 mg/dL 8-26 GLUCOSE 217 mg/dL H 70-100 SODIUM 144 mmol/L 136-145 POTASSIUM 4.3 mmol/L 3.5-5.1 CHLORIDE 106 mmol/L 98-107 CO2 31 mmol/L H 22-29 CALCIUM 9.6 mg/dL 8.4-10.2 MAGNESIUM 1.4 mg/dL L 1.6-2.6 ANION GAP 7 mmol/L 5-15 .CREAT EGFR(CKD-EPI) 78 >60 Apr 20, 2024 08:28 AM [facility] POC CREATININE Specimen Type: BLOOD No comment entered. Ordering Provider: TANK PHILLIPS Report Released Date/Time: Apr 20, 2024 08:30 AM Reporting Lab: [facility] [address] Performing Lab: [facility] [address] POC CREATININE 1.1 mg/dL 0.6-1.3 Vital Signs: All taken on the encounter date This section contains inpatient and outpatient Vital Signs collected on the date of the Encounter. Date/Time Temperature Pulse Blood Pressure Respiratory Rate SP02 Pain Height Weight Body Mass Index Source Apr 22, 2024 10:20 AM 88 [facility] Apr 22, 2024 08:49 AM 102/69 [facility] Apr 22, 2024 08:40 AM 97.6 120 94/64 18 97 5 68 154.8 24 [facility] Immunizations: All administered on the encounter date This section contains immunizations associated to the Encounter. Immunization Series Date Issued Reaction Comments PNEUMOCOCCAL CONJUGATE PCV20 , POLYSACCHARIDE HMF385 CONJUGATE, ADJUVANT, PF Apr 22, 2024 INFLUENZA, HIGH-DOSE, TRIVALENT, PF Apr 22 Social History: Smoking Status (Most current) and Tobacco Use (All prior to encounter date) This section includes the most current, and the historical, smoking and tobacco- related health factors from the [facility] where the Encounter took place. Current Smoking Status This section includes the most current smoking, or tobacco-related health factor, from the [place] facility where the Encounter took place. Date/Time Current Smoking Status Comment Facil ity Aug 21, 2023 10:30 AM [place]-TOBACCO FORMER USER [facility] Tobacco Use History This section includes a history of the smoking, or tobacco-related health factors, that were collected on or before the date of the Encounter. The data comes from the [facility] where the Encounter took place. Date/Time Smoking Status/Tobacco Use Comment F acility Aug 21, 2023 10:30 AM VA-TOBACCO QUIT 15 YRS OR MORE [facility] Aug 15, 2022 09:00 AM VA-TOBACCO FORMER USER [facility] Aug 15, 2022 09:00 AM VA-TOBACCO QUIT 15 YRS OR MORE [facility] Aug 21, 2021 01:00 PM VA-TOBACCO FORMER USER [facility] Aug 21, 2021 01:00 PM VA-TOBACCO QUIT 15 YRS OR MORE [facility] Jul 09, 2018 08:58 AM VA-TOBACCO FORMER USER [facility] Jul 09, 2018 08:58 AM VA-TOBACCO QUIT 15 YRS OR MORE [facility] Jul 18, 2017 09:58 AM FORMER TOBACCO USER 7Y OR GREATE R [facility] Aug 14, 2016 10:59 AM FORMER TOBACCO USER 7Y OR GREATE R [facility] Jun 29, 2015 02:03 PM FORMER TOBACCO USER 7Y OR GREATE R [facility] Jan 06, 2014 03:04 PM FORMER TOBACCO USER 7Y OR GREATE R [facility] Jan 04, 2012 08:36 AM FORMER TOBACCO USER 7Y OR GREATE R [facility] Radiology Reports: +/- 30 days of the [...] the Encounter. The data comes from all [place] treatment facilities. Date/Time Radiology Report Provider Source May 20, 2024 09:[address] BODY W/O CONTRAST (P): JUAN THOMPSON [id number] -1945 M Exm Date: MAY 20, 2024@09:14 Req Phys: LYUBOV YEUNG Loc: [facility] APACT L RES 03 WH 4F (Req' Img Loc: [facility]UC MED Service: [place] [address] (Case 190 COMPLETE) SKULL-THIGH PET IMAGE W/CT (NM Detailed) CPT:78330 Reason for Study: eval for malignancy (Case [...] pager listed below: User placing orders pager: [phone] LAST CREATININE 1.0 (04/22/24) Report Status: Verified Date Reported: MAY 20, 2024 Date Verified: MAY 20, 2024 Sole Polisher E-Sig:/ES/RUFUS GROVES MD, FACR, CCD Report: PET/CT [...] Staff: RUFUS GROVES MD, FACR, STAFF RADIOLOGIST (Sole Polisher) /BSF RUFUS GROVES [facility] Apr 20, 2024 08:[address] (CAP) CHEST/ABD/PELVIS (P): JUAN THOMPSON [id number] -1945 M Exm Date: APR 20, 2024@08:07 Req Phys: RACHEL WATSON Pat Loc: [facility] APACT L RES 03 WH 4F (Req' Img Loc: CT IMAGING Service: [place] [address] (Case 147 COMPLETE) CT (CAP) CHEST W CONTRAST (CT Detailed) CPT:35080 Contrast Media : Non-ionic Iodinated Reason for Study: 78M with weight loss & lymphadenopathy, CT for malignancy eval (Case 148 COMPLETE) CT (CAP) ABDOMEN/PELVIS W CONTRAS(CT Detailed) CPT:45398 Contrast Media : Non-ionic Iodinated Clinical History: [...] any questions or notifications of critical findings: [phone] If ordering provider is a trainee, enter [...] PLASMA .CREAT EGFR(CKD-E 63 Ref: >=60 Allergies: ([place] only) SULFAMETHOXAZOLE (Feb 07, 2022) EMPAGLIFLOZIN (Jun 06, 2022) Report Status: Verified Date Reported: APR 20, 2024 Date Verified: APR 20, 2024 Sole Polisher E-Sig:/ES/JONATAN MILLER MD Report: CT CHEST, ABDOMEN [...] Primary Interpreting Staff: JONATAN MILLER MD, RADIOLOGIST (Sole Polisher) /[facility] Pathology Reports: +/- 30 days of [...] the Encounter. The data comes from all [place] treatment facilities. Date/Time Pathology Report Provider Source May 14, 2024 10:47 AM LR SURGICAL PATHOLOGY REPORT: LOCAL TITLE: LR SURGICAL PATHOLOGY REPORT STANDARD TITLE: PATHOLOGY REPORT DATE OF NOTE: MAY 14, 2024@10:47:04 ENTRY DATE: MAY 14, 2024@10:47:04 AUTHOR: VIPUL DASILVA COSIGNER: URGENCY: STATUS: COMPLETED $APHDR Reporting Lab: [facility] [CLIA# [id number]] [place] [address] - - - - - - - [...] history and other lab data is necessary. /es/ VIPUL DASILVA MD STAFF PATHOLOGIST Signed May 14, 2024@10:47 Performing Laboratory: Surgical Pathology Report Performed By: [facility] [CLIA# [id number]] [place] [address] $FTR - - - - - - [...] - JUAN THOMPSON JR STANDARD FORM 515 ID:[id number] SEX:M :1945 AGE: 78 LOC:[id number] PCP: Sonia Phillips /pablo/ VIPUL DASILVA MD STAFF PATHOLOGIST Signed: 05/14/2024 10:47 VIPUL DASILVA [facility] Encounter Notes: All associated encounter notes This section contains the clinical notes associated to the Encounter. Date/Time Encounter Note(s) Provider Source Apr 22, 2024 08:42 AM INTERNAL MEDICINE OUTPATIENT NOTE: LOCAL TITLE: MEDICINE CLINIC NURSING NOTE STANDARD TITLE: INTERNAL MEDICINE OUTPATIENT NOTE DATE OF NOTE: APR 22, 2024@08:42 ENTRY DATE: APR 22, 2024@08:42:41 AUTHOR: CAMILLA BROWN COSIGNER: URGENCY: STATUS: COMPLETED MEDICINE CLINIC NURSING NOTE Has ADDENDA TYPE OF VISIT: Appointment Check In Type of appointment: In-person appointment REASON FOR VISIT: wt loss, cat scan results ALLERGIES: SULFAMETHOXAZOLE (Feb 07, 2022) EMPAGLIFLOZIN (Jun 06, 2022) VITAL SIGNS: Blood Pressure: 94/64 (04/22/2024 08:40) rechecked 102/69 Pulse: 120 (04/22/2024 08:40) Respiration: 18 (04/22/2024 08:40) Temperature: 97.6 F [36.4 C] (04/22/2024 08:40) Weight: 154.8 lb [70.22 kg] (04/22/2024 08:40) Height: 68 in [172.7 cm] (04/22/2024 08:40) BMI: 23.6 O2 Sat: 97% (04/22/2024 08:40) Pain: 5 (04/22/2024 08:40) PAIN SCREEN: Patient is having significant pain that they would like to talk to their provider about today. Old (Chronic) (began more than 6 months ago) Patient states their average pain this past week is 5 Patient states the average number on how the chronic pain affects their enjoyment of life the past week is 2 Patient states during the past week the average number on how the pain has interfered with their general activity is 2 MEDICATION Over the Counter/Herbal Medications: The patient denies taking any outside medications or herbals. Influenza Immunization: Influenza, High-Dose, Trivalent, Preservative Free (Fluzone-Syringe) Administered: INFLUENZA, HIGH-DOSE, TRIVALENT, PF Date Administered: Apr 22, 2024 08:44 Fx Artist: [employer] PASTEUR Lot: [id number] Exp Date: Jan 25, 2025 Admin Route/Site: INTRAMUSCULAR/LEFT DELTOID Dosage: 0.5mL Vaccine Information Statement(s): INFLUENZA(FLU) VACC(INACTIVATED OR RECOMBINANT)VIS Mar 03, 2021 (ECUADOREAN) Order By: Policy Administered By: Camilla Brown The Influenza Vaccine Information Statement (VIS) was reviewed with the patient/caregiver which lists the benefits and risks of the vaccine and the risks of not receiving the Influenza vaccine. The patient/caregiver denied any prior severe reaction to this vaccine or its components or a severe allergic reaction, such as anaphylaxis, to any vaccine or any injectable therapy. The patient/caregiver gave verbal consent to receive the vaccine. PNEUMOCOCCAL VACCINATION Pneumococcal Conjugate Vaccine PCV20 ([id number]) PCV20 (Prevnar 20) Administered: PNEUMOCOCCAL CONJUGATE PCV20, POLYSACCHARIDE DSM438 CONJUGATE, ADJUVANT, PF Date Administered: Apr 22, 2024 08:46 Fx Artist: Patient Communicator, Sharematic Lot: [id number] Exp Date: Jan 25, 2025 [facility]: [id number] Admin Route/Site: INTRAMUSCULAR/RIGHT DELTOID Dosage: 0.5mL Vaccine Information Statement(s): PNEUMOCOCCAL CONJUGATE ([id number]) VIS December 07, 2022 (ECUADOREAN) Order By: Policy Administered By: Camilla Brown Vaccine Information Sheet (VIS) was given to the patient/caregiver, education regarding adverse reactions was discussed, as well as barriers to learning, if any, were acknowledged. /pablo/ CAMILLA BROWN LPN Signed: 04/22/2024 08:48 04/22/2024 ADDENDUM STATUS: COMPLETED EDUCATION: PARTICIPANT(s): Patient Clean Catch Urine Instructed in collection of clean catch urine. Printed instructions provided and participant(s) is able to repeat these instructions accurately. Urinalysis sent to lab /pablo/ JYOTSNA MEIER LPN STAFF STERILE TECH Signed: 04/22/2024 10:25 CAMILLA BROWN [facility] Apr 22, 2024 07:57 AM INTERNAL MEDICINE NOTE: LOCAL TITLE: MEDICINE CLINIC NOTE STANDARD TITLE: INTERNAL MEDICINE NOTE DATE OF NOTE: APR 22, 2024@07:57:51 ENTRY DATE: APR 22, 2024@07:57:52 AUTHOR: LYUBOV YEUNG COSIGNER: URGENCY: STATUS: COMPLETED JUAN SIRIA THOMPSON is a 78 year old MALE Nurse's Note Reviewed. HPI/ROS: 78M presenting for 6m f/u and acute visit for LAD and weight loss. PMhx includes obesity s/p Nora-en-y 2011, bilateral knee OA, right hip OA, falls, parkinsonism, DM2. Recently called to discuss weight loss with Dr. Watson who ordered CT CAP to eval for malignancy, that imaging notable for mottled appearance of several bony structures with small lytic lesions in sacrum and iliac bones c/f metastatic disease or myeloma. Could not exclude lesions in ascending colon, bypassed portion of stomach Patient's weight was 224 lbs on 08/15/22, but has decreased to 157 lbs by 03/16/24. Patient had been on semaglutide from 10/2022 until early 02/2024. he had a nora-en-y bypass ~14 years ago. However weight loss over this time (67 lbs) exceeds what would be expected for semaglutide. He also reports generalized weakness, has meals on wheels that comes and delivers food but it's not always good so he doesn't always eat it. Eats protein shake and a couple of cheese sandwiches and some of the meals on wheels every day. Feels like his appetite is improving so he's eating more since stopping the semaglutide a month ago. Weight loss has plateaued, essentially stable over last month (155 from 157). Feels generally very healthy except for the weakness and weight loss. Last a1c was 6.6 02/2024. Still has not had Nikolay to eval for parkinsons as planned 10/2023, symptoms are unchanged. Knee and hips still painful. Uses lidocaine patches which are helpful. Also reports worsening L chest wall pain, not positional. Reports his chronic cough is now productive of pink phlegm most days over past month. Patient denies fevers, chills, or night sweats. Past medical history/Active Problems: Active problems - Computerized Problem List is the source for the followin. Essential hypertension (SNOMED CT 74124041) 2. Major depressive disorder (SNOMED CT 760930004) 3. Generalized anxiety disorder (SNOMED CT 82109963) 4. Primary Obesity 5. Bronchiectasis (SNOMED CT 50949859) 6. Gastroesophageal reflux disease (SNOMED CT 071380450) 7. Bariatric Surgery Status 8. Cataracts (SNOMED CT 53930318) 9. Hypermetropia/Hyperopia 10. Astigmatism, Unspec 11. Presbyopia 12. Atrial fibrillation (SNOMED CT 18990062) 13. Varicose veins of lower extremity 14. Compulsive gambling 15. Bipolar disorder (SNOMED CT 18630300) 16. Mild cognitive disorder 17. Type 2 diabetes mellitus 18. Long-term current use of anticoagulant 19. Gastritis 20. Dementia Allergies: SULFAMETHOXAZOLE (Feb 07, 2022) EMPAGLIFLOZIN (Jun 06, 2022) EXAM: VS: Temperature: 97.6 F [36.4 C] (04/22/2024 08:40) Blood Pressure: 102/69 (04/22/2024 08:49) Pulse: 88 (04/22/2024 10:20) Respiration: 18 (04/22/2024 08:40) Pain: 5 (04/22/2024 08:40) General: sitting comfortably, NAD HEENT: NCAT, PERRL, EOMI, MMM Lungs: bibasilar insp crackles otherwise CTAB, no W/R/R CV: irregularly irregular though overall normocardic, no M/G/R, no JVD Abdomen: BS+, S/NT/ND, no masses Extremities: WWP, pulses 2+ and symmetric b/l Neuro: Shuffling gait, hypophonia, fine resting tremor most notable in jaw> hands. Strength 5/5 in UE and LE. CN II-XII grossly intact Psych: Calm, cooperative, appropriate Data/Labs: Today's Labs: PROTEIN,TOTAL: 6.0 L PROTEIN TOTAL URINE (03/01): <6.8 WBC: 9.8 RBC: 4.45 L HGB: 13.0 L HCT: 40.2 L MCV: 90.3 MCH: 29.2 MCHC: 32.3 RDW: 14.3 PLT: 328 MPV: 9.7 GLUCOSE: 217 H UREA NITROGEN: 18 CREATININE: 1.0 SODIUM: 144 POTASSIUM: 4.3 CHLORIDE: 106 CO2: 31 H CALCIUM: 9.6 MAGNESIUM: 1.4 L ANION GAP: 7 CREATININE EGFR (CKD-EPI): 78 CT CAP 04/20/24 Impression: In this patient with history of [...] as described in the body the report. Assessment and Plan: # Weight loss # Lytic bone lesions While lytic bone lesions can certainly be benign or non-infectious in many cases, and we lack a comparator image to prove that the findings are acute, this patient's age, rapid weight loss, and radiographic findings are concerning for infection or cancer of unknown primary. The main ddx for multiple lytic lesions in an elderly patient is multiple myeloma. However, he does not have renal failure or hypercalcemia, and we have no other data pointing towards myeloma. Other lytic metastases include renal cancer, non-small cell lung cancer, thyroid cancer, melanoma, non-hodgkin lymphoma, and breast cancer. His self-reported pink sputum and multiple lung nodules with evidence of possible asbestosis on imaging would seem to make NSCLC most likely of these. For patients with an unknown primary cancer who present with a bone metastasis, an initial PET is indicated to see if a particular primary can be identified, otherwise a biopsy is generally indicated to both confirm the malignant nature of the bone lesion and to provide histologic information about likely primary sites. Will eval for myeloma today, order the PET ANAMIKA given his advancing disease and unknown primary, and refer to oncology for further eval/mgmt. - Full-body PET, may need biopsy of most available site - SPEP - UPEP - Referral to oncology, appreciate input # Parkinsonism Following with neurology, saw him 10/2023 and planned Nikolay scan which was not performed, saw him again 03/2024 no changes and still plan for Nikolay scan. No recent falls. - Continue to follow with neurology # A Fib (CHADSVASC 5) # HTN - controlled BP today controlled. - Cont metoprolol 75 mg QD - Cont apixaban via anticoag clinic # OA Affected: hips, knees. [facility], planning for R hip MARK. - APAP PRN - Lidocaine QDay - Voltaren gel PRN - PT - F/u ortho as planned # Normocytic anemia Stable. Mulifactorial (vitamin deficiencies d/t gastric bypass + ACD). - Supplements and f/u as planned per metabolic clinic # Bipolar II # STEPHANIE # Major Neurocognitive Disorder, multifactoral etiology (vascular , bipolar disorder, h/o delirium, sleep dysfunction) # Sleep dysfunction # Psychosis Follows with Dr. Delvalle with . No SI/HI. Feels this is well controlled currently. - cont psych meds per # Mild aortic stenosis # Mild regurgitation - F/u echo scheduled for 01/2025 # DMII Well controlled. Metabolic clinic following. Off insulin and stopped semaglutide in setting of weight loss as above. - Diabetic Nephropathy: wnl 2022, repeat U alb/cr next visit - Diabetic Neuropathy/Foot Exam: complete at next visit - Diabetic Retinopathy: reminded to call eye clinic for appt - Cont metformin 500 mg QD - F/u as planned metabolic clinic (next 06/2024) # HLD # Chronic Small Vessel Ischemia - cont atorvastatin # Hx of Gastric Bypass Patient had Rou-en-Y done in early . Lab monitoring and supplements per metabolic clinic - F/u with metabolic clinic as planned (next visit 06/2024) # Bronchiectasis - albuterol PRN #RHM - C-scope: normal in 2017. No further scopes d/t aging out - AAA: 2016 normal RTC 1m for f/u imaging and RHM. Patient staffed with Dr. Trenton Yeung MD Internal Medicine/Dermatology PGY-4 --[id number] Education on Treatment Plan: Patient indicates readiness [...] medicines under the med tab as appropriate. /es/ LYUBOV YEUNG MD RESIDENT PHYSICIAN Signed: 04/22/2024 16:44 LYUBOV YEUNG [facility]
--- OUTSIDE RECORDS SUMMARY | 2024-07-06 16:19 | XMS_ITS | Encounter Summary ---
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 [phone] JUAN THOMPSON JR PATIENT MEDICARE (WNR) MEDICARE (M) PART B Sep 26, 2012 PART B [id number] [phone] JUAN THOMPSON JR PATIENT Selected Encounter This section includes the information on record at [place] for the Encounter. Date/Time Encounter Type Encounter Description Reason Provider Source May 13, 2024 01:00 PM OFFICE O/P [place] 60 MIN ONCOLOGY/TUMOR ICD-10-CM R93.89 Abnormal findings on dx imaging of oth body structures RENUKA JOHNSON [facility] Encounter Template Text not used by [place] Assessments - Encounter Diagnoses This section includes the primary and secondary diagnoses documented for the Encounter. Date/Time Primary/Secondary Diagnosis Diagnosis Name Provider Source May 14, 2024 06:44 PM PRIMARY Abnormal findings on dx imaging of oth body structures RENUKA JOHNSON [facility] Plan of Treatment: Future Appointments (+ 6 months) and Future Tests (+/- 45 days) The Plan of Treatment section includes future care activities for the patient [facility] all [facility] This section includes future appointments and future orders which are active, pending or scheduled. Future Appointments This section includes appointments that were scheduled to occur 6 months from the date of the Encounter, up to a maximum of 20 appointments. The data comes from all [place] treatment facilities. Appointment Date/Time Appointment Type Appointme nt Facility Name May 20, 2024 09:45 AM [place] [facility] May 26, 2024 09:15 AM [place] [facility] Jun 03, 2024 10:00 AM [place] [facility] Jun 04, 2024 09:30 AM [place] [facility] Jun 05, 2024 01:30 PM [place] [facility] Jun 12, 2024 07:30 AM [place]ONE [place] [facility] Jun 12, 2024 08:30 AM [place] [facility] Jun 23, 2024 10:15 AM [place]IC[place] [facility] Jul 06, 2024 08:30 AM [place]ONE [place] [facility] Jul 16, 2024 07:30 AM [place] [facility] Jul 16, 2024 08:30 AM [place] [facility] Jul 16, 2024 09:00 AM [place] [facility] Jul 16, 2024 09:30 AM [place] [facility] Oct 07, 2024 09:00 AM [place] [facility] Oct 19, 2024 09:30 AM [place] [facility] Active, Pending, and Scheduled Orders This section includes a listing of several types of active, pending, and scheduled orders, including clinic medications orders, diagnostic test orders, procedure orders and consult orders; where the start date of the order is 45 days before the date of the Encounter or 45 days after the date of theEncounter. The data comes from all [place] treatment facilities. Test Date/Time Test Type Test Details Facility Name Jun 19, 2024 04:32 PM Consult Order [facility] Cons Ferris Wheel Attendant's Choice [facility] Lab Results: +/- 30 days of the encounter This section includes the Chemistry and Hematology Lab Results on record with [place] for the patient. Radiology Reports and Pathology Reports are provided separately, in subsequent sections. Lab Results This section contains the Chemistry/Hematology Results that were resulted 30 days before or 30 daysafter the date of the Encounter. Date/Time Source Result Type Result - Unit Interpretation Reference Range Comment Jun 12, 2024 07:22 AM [facility] PHOSPHORUS Specimen Type: PLASMA No comment entered. Ordering Provider: JAVIER MICHELLE Report Released Date/Time: May 26, 2024 09:45 AM Reporting Lab: [facility] [address] Performing Lab: [facility] [address] PHOSPHORUS 3.4 mg/dL 2.3-4.3 Jun 12, 2024 07:22 AM [facility] RETICS Specimen Type: BLOOD Comment: Automated Differential Performed Ordering Provider: JAVIER MICHELLE Report Released Date/Time: May 26, 2024 09:53 AM Reporting Lab: [facility] [address] Performing Lab: [facility] [address] ABS RETIC 0.0429 0.0300-0.1 000 .RETICULOCYTE 1.06 0.6-2.0 IMMATURE RETIC 5.9 1.0-14.0 .RETICULOCYTE HE 30.5 pg 28.2-36.6 Jun 12, 2024 07:22 AM [facility] COMPREHENSIVE METABOLIC PANEL+MG Specimen Type: PLASMA No comment entered. Ordering Provider: JAVIER MICHELLE Report Released Date/Time: May 26, 2024 09:45 AM Reporting Lab: [facility] [address] Performing Lab: [facility] [address] CREATININE 1.0 mg/dL 0.7-1.2 UREA NITROGEN 22 mg/dL 8-26 GLUCOSE 132 mg/dL H 70-100 SODIUM 142 mmol/L 136-145 POTASSIUM 4.2 mmol/L 3.5-5.1 CHLORIDE 104 mmol/L 98-107 CO2 32 mmol/L H 22-29 CALCIUM 9.0 mg/dL 8.4-10.2 PROTEIN,TOTAL 5.9 g/dL L 6.4-8.3 ALBUMIN 3.8 g/dL 3.5-5.0 BILIRUBIN, TOTAL 0.2 mg/dL 0.2-1.2 MAGNESIUM 1.6 mg/dL 1.6-2.6 ANION GAP 6 mmol/L 5-15 ALKALINE PHOSPHATASE 74 U/L 40-150 ALT/SGPT 14 U/L <44 AST/SGOT 20 U/L 11-34 .CREAT EGFR(CKD-EPI) 78 >60 Jun 12, 2024 07:22 AM [facility] CBC & DIFF Specimen Type: BLOOD Comment: Automated Differential Performed Ordering Provider: JAVIER MICHELLE Report Released Date/Time: May 26, 2024 09:45 AM Reporting Lab: [facility] [address] Performing Lab: [facility] [address] WBC 6.4 4.0-11.0 RBC 4.05 L 4.60-6.20 HGB 11.8 g/dL L 13.5-17.9 HCT 37.5 L 41.0-54.0 MCV 92.6 fL 80.0-100.0 MCH 29.1 pg 27.0-33.0 MCHC 31.5 g/dL L 32.0-37.5 PLT 298 150-400 MPV 9.0 fL L 9.1-13.0 NEUT 54.5 40.0-80.0 LYMPHS 31.6 15.0-45.0 MONO 9.2 2.0-12.0 EOSINO 3.9 0.0-6.0 BASO 0.5 0.0-2.0 RDW 14.1 11.5-14.5 ABS LYMPH 2.0 1.0-4.0 ABS MONO 0.6 0.1-1.0 ABS NEUT 3.5 2.0-7.7 ABS EOS 0.3 0.0-0.5 ABS BASO 0.0 0.0-0.2 IG(META,MYELO, PRO) 0.3 ABS IMMATURE GRAN 0.0 0.0-0.1 .RETICULOCYTE HE 30.5 pg 28.2-36.6 Jun 03, 2024 11:17 AM [facility] URINALYSIS Specimen Type: URINE No comment entered. Ordering Provider: LYUBOV YEUNG Report Released Date/Time: Jun 03, 2024 10:39 AM Reporting Lab: [facility] [address] Performing Lab: [facility] [address] URINE COLOR YELLOW SPECIFIC GRAVITY 1.018 1.003-1.03 5 URINE BILIRUBIN NEGATIVE NEGATIVE URINE KETONES NEGATIVE NEGATIVE URINE GLUCOSE 500 mg/dL <30 URINE PROTEIN NEGATIVE mg/dL <20 URINE PH 6.5 5.0-8.0 URINE WBC/HPF 9 /[HPF] H 0-7 URINE BACTERIA NONE SEEN URINE RBC/HPF 3 /[HPF] 0-3 APPEARANCE CLEAR SQUAMOUS EPITHELIAL <1 /[HPF] URINE BLOOD NEGATIVE NEGATIVE URINE NITRITE NEGATIVE NEGATIVE LEUKOCYTE ESTERASE 75 NEGATIVE May 20, 2024 09:39 AM [facility] FINGERSTICK GLUCOSE Specimen Type: BLOOD Comment: Save Result Ordering Provider: TANK PHILLIPS Report Released Date/Time: May 20, 2024 03:03 PM Reporting Lab: [facility] [address] Performing Lab: [facility] [address] FINGERSTICK GLUCOSE 148 mg/dL H 70-100 May 13, 2024 11:44 AM [facility] KAPPA/LAMBDA LC FREE,RATIO Specimen Type: SERUM [...] therapy of these disorders. Test Performed by [employer], [facility], [address] [place], [place] Devante Meyer M.D., Ph.D., Director of Laboratories , [facility] [id number] Ordering Provider: RENUKA JOHNSON Report Released Date/Time: Apr 24, 2024 04:08 PM Reporting Lab: [facility] [address] Performing Lab: [facility] [address] [facility] .KAPPA LT CHAIN,FREE 27.3 mg/L H 3.3-19.4 .LAMBDA LC,FREE 15.8 mg/L 5.7-26.3 .KAPPA/LAMBDA, FREE 1.73 H 0.26-1.65 May 13, 2024 11:44 AM [facility] LD,TOTAL Specimen Type: PLASMA No comment entered. Ordering Provider: RENUKA JOHNSON Report Released Date/Time: Apr 24, 2024 04:08 PM Reporting Lab: [facility] [address] Performing Lab: [facility] [address] LD,TOTAL 141 U/L 125-220 May 13, 2024 11:44 AM [facility] URIC ACID Specimen Type: PLASMA No comment entered. Ordering Provider: RENUKA JOHNSON Report Released Date/Time: Apr 24, 2024 04:08 PM Reporting Lab: [facility] [address] Performing Lab: [facility] [address] URIC ACID 3.1 mg/dL L 3.7-7.7 May 13, 2024 11:44 AM [facility] B 12 Specimen Type: SERUM No comment entered. Ordering Provider: RENUKA JOHNSON Report Released Date/Time: Apr 24, 2024 04:08 PM Reporting Lab: [facility] [address] Performing Lab: [facility] [address] B 12 722 pg/mL 213-816 May 13, 2024 11:44 AM [facility] FOLATE Specimen Type: SERUM No comment entered. Ordering Provider: RENUKA JOHNSON Report Released Date/Time: Apr 24, 2024 04:08 PM Reporting Lab: [facility] [address] Performing Lab: [facility] [address] FOLATE 14.6 ng/mL >7.0 May 13, 2024 11:44 AM [facility] PHOSPHORUS Specimen Type: PLASMA No comment entered. Ordering Provider: RENUKA JOHNSON Report Released Date/Time: Apr 24, 2024 04:08 PM Reporting Lab: [facility] [address] Performing Lab: [facility] [address] PHOSPHORUS 3.3 mg/dL 2.3-4.3 May 13, 2024 11:44 AM [facility] IRON GROUP Specimen Type: SERUM No comment entered. Ordering Provider: RENUKA JOHNSON Report Released Date/Time: Apr 24, 2024 04:08 PM Reporting Lab: [facility] [address] Performing Lab: [facility] [address] IRON 101 ug/dL 65-175 TIBC,CALCULATE D 313 ug/dL 250-425 FERRITIN pending IRON SATURATION 32 20-50 TRANSFERRIN 250 mg/dL 163-382 May 13, 2024 11:44 AM [facility] PSA Specimen Type: SERUM No comment entered. Ordering Provider: ABBY MEANS Report Released Date/Time: May 12, 2024 08:28 PM Reporting Lab: [facility] [address] Performing Lab: [facility] [address] PSA 0.49 ng/mL <4.00 May 13, 2024 11:44 AM [facility] BETA 2-MICROGLOBULIN Specimen Type: SERUM No comment entered. Ordering Provider: RENUKA JOHNSON Report Released Date/Time: Apr 24, 2024 04:08 PM Reporting Lab: [facility] [address] Performing Lab: [facility] [address] BETA 2-MICROGLOBULI N 3.36 mg/L H 0.97-2.64 May 13, 2024 11:44 AM [facility] TOTAL IMMUNOGLOB (IGA,IGG,IGM) Specimen Type: PLASMA No comment entered. Ordering Provider: RENUKA JOHNSON Report Released Date/Time: Apr 24, 2024 04:08 PM Reporting Lab: [facility] [address] Performing Lab: [facility] [address] IGM 78.8 mg/dL 22.0-293.0 IGG 714.3 mg/dL 540.0-18 22 .0 IGA 123.8 mg/dL 63.0-645.0 May 13, 2024 11:44 AM [facility] TESTOSTERONE Specimen Type: SERUM No comment entered. Ordering Provider: ABBY MEANS Report Released Date/Time: May 12, 2024 08:30 PM Reporting Lab: [facility] [address] Performing Lab: [facility] [address] TESTOSTERONE 534 ng/dL 221-870 May 13, 2024 11:44 AM [facility] CBC & DIFF Specimen Type: BLOOD Comment: Automated Differential Performed Ordering Provider: RENUKA JOHNSON Report Released Date/Time: Apr 24, 2024 04:08 PM Reporting Lab: [facility] [address] Performing Lab: [facility] [address] WBC 8.3 4.0-11.0 RBC 4.04 L 4.60-6.20 [...] 0.0 0.0-0.1 May 13, 2024 11:44 AM [facility] COMPREHENSIVE METABOLIC PANEL+MG Specimen Type: PLASMA No comment entered. Ordering Provider: RENUKA JOHNSON Report Released Date/Time: Apr 24, 2024 04:08 PM Reporting Lab: [facility] [address] Performing Lab: [facility] [address] CREATININE 1.0 mg/dL 0.7-1.2 UREA NITROGEN 26 [...] 78 >60 May 13, 2024 11:44 AM [facility] PERIPHERAL SMEAR PATHOLOGIST REVIEW Specimen Type: BLOOD No comment entered. Ordering Provider: RENUKA JOHNSON Report Released Date/Time: May 13, 2024 01:51 PM Reporting Lab: [facility] [address] Performing Lab: [facility] [address] PERIPHERAL SMEAR PATHOLOGIST REVIEW SLIDES MADE Apr 22, 2024 10:41 AM [facility] ELP/IMMFIX,SERUM PANEL Specimen Type: SERUM Comment: Decreased gamma fraction may be seen in certain lymphoproliferat jeff disorders. Recommend submitting a 24 hr urine for ELP and immunofixation tests. Ordering Provider: LYUBOV YEUNG Report Released Date/Time: Apr 22, 2024 10:20 AM Reporting Lab: [facility] [address] Performing Lab: [facility] [address] PROTEIN,TOTAL 6.0 g/dL L 6.4-8.3 .ALBUMIN FRACTION 3.63 g/dL L 3.66-4.78 .ALPHA 1 FRACTION 0.37 g/dL 0.14-0.38 .ALPHA 2 FRACTION 0.81 g/dL 0.50-0.90 .BETA 1 FRACTION 0.34 g/dL 0.33-0.55 .BETA 2 FRACTION 0.28 g/dL 0.20-0.52 .GAMMA FRACTION 0.57 g/dL L 0.58-1.72 .TOTAL PROTEIN 6.0 g/dL 6.0-8.3 .INTERPRETATIO N NO MONOCLONALS DETECTED Apr 22, 2024 10:32 AM [facility] ELP/IMMFIX,URINE RANDOM PANEL Specimen Type: URINE No comment entered. Ordering Provider: LYUBOV YEUNG Report Released Date/Time: Apr 22, 2024 10:20 AM Reporting Lab: [facility] [address] Performing Lab: [facility] [address] PROTEIN,T. RANDOM UR <6.8 mg/dL <14.0 .INTERPRETATIO N,UR NO MONOCLONALS DETECTED Apr 22, 2024 08:15 AM [facility] CBC Specimen Type: BLOOD No comment entered. Ordering Provider: LYUBOV YEUNG Report Released Date/Time: Oct 09, 2023 11:10 AM Reporting Lab: [facility] [address] Performing Lab: [facility] [address] WBC 9.8 4.0-11.0 RBC 4.45 L 4.60-6.20 HGB 13.0 g/dL L 13.5-17.9 HCT 40.2 L 41-54 MCV 90.3 fL 80-100 MCH 29.2 pg 27-33 MCHC 32.3 g/dL 32.0-37.5 PLT 328 150-400 MPV 9.7 fL 9.1-13.0 RDW 14.3 11.5-14.5 Apr 22, 2024 08:15 AM [facility] BASIC METABOLIC PANEL+MG Specimen Type: PLASMA No comment entered. Ordering Provider: LYUBOV YEUNG Report Released Date/Time: Oct 09, 2023 11:10 AM Reporting Lab: [facility] [address] Performing Lab: [facility] [address] CREATININE 1.0 mg/dL 0.7-1.2 UREA NITROGEN 18 mg/dL 8-26 GLUCOSE 217 mg/dL H 70-100 SODIUM 144 mmol/L 136-145 POTASSIUM 4.3 mmol/L 3.5-5.1 CHLORIDE 106 mmol/L 98-107 CO2 31 mmol/L H 22-29 CALCIUM 9.6 mg/dL 8.4-10.2 MAGNESIUM 1.4 mg/dL L 1.6-2.6 ANION GAP 7 mmol/L 5-15 .CREAT EGFR(CKD-EPI) 78 >60 Apr 20, 2024 08:28 AM [facility] POC CREATININE Specimen Type: BLOOD No comment entered. Ordering Provider: TANK PHILLIPS Report Released Date/Time: Apr 20, 2024 08:30 AM Reporting Lab: [facility] [address] Performing Lab: [facility] [address] POC CREATININE 1.1 mg/dL 0.6-1.3 Vital Signs: All taken on the encounter date This section contains inpatient and outpatient Vital Signs collected on the date of the Encounter. Date/Time Temperature Pulse Blood Pressure Respiratory Rate SP02 Pain Height Weight Body Mass Index Source May 13, 2024 12:38 PM 98.6 105 120/80 17 97 4 162.3 25 [facility] Social History: Smoking Status (Most current) and Tobacco Use (All prior to encounter date) This section includes the most current, and the historical, smoking and tobacco- related health factors from the [place] facility where the Encounter took place. Current Smoking Status This section includes the most current smoking, or tobacco-related health factor, from the [place] facility where the Encounter took place. Date/Time Current Smoking Status Comment Aj woods Aug 21, 2023 10:30 AM [place]-TOBACCO FORMER USER [facility] Tobacco Use History This section includes a history of the smoking, or tobacco-related health factors, that were collected on or before the date of the Encounter. The data comes from the NE facility where the Encounter took place. Date/Time Smoking Status/Tobacco Use Comment Guanakito ortez Aug 21, 2023 10:30 AM NE-TOBACCO QUIT 15 YRS OR MORE [facility] Aug 15, 2022 09:00 AM VA-TOBACCO FORMER USER [facility] Aug 15, 2022 09:00 AM NE-TOBACCO QUIT 15 YRS OR MORE [facility] Aug 21, 2021 01:00 PM VA-TOBACCO FORMER USER [facility] Aug 21, 2021 01:00 PM VA-TOBACCO QUIT 15 YRS OR MORE [facility] Jul 09, 2018 08:58 AM VA-TOBACCO FORMER USER [facility] Jul 09, 2018 08:58 AM VA-TOBACCO QUIT 15 YRS OR MORE [facility] Jul 18, 2017 09:58 AM FORMER TOBACCO USER 7Y OR GREATE R [facility] Aug 14, 2016 10:59 AM FORMER TOBACCO USER 7Y OR GREATE R [facility] Jun 29, 2015 02:03 PM FORMER TOBACCO USER 7Y OR GREATE R [facility] Jan 06, 2014 03:04 PM FORMER TOBACCO USER 7Y OR GREATE R [facility] Jan 04, 2012 08:36 AM FORMER TOBACCO USER 7Y OR GREATE R [facility] Radiology Reports: +/- 30 days of [...] the Encounter. The data comes from all [place] treatment facilities. Date/Time Radiology Report Provider Source May 20, 2024 09:[address] BODY W/O CONTRAST (P): JUAN THOMPSON [id number] -1945 M Exm Date: MAY 20, 2024@09:14 Req Phys: LYUBOV YEUNG Loc: [facility] APACT L RES 03 WH 4F (Req' Img Loc: NUC MED Service: [place] [address] (Case [id number] COMPLETE) SKULL-THIGH PET IMAGE W/CT (NM Detailed) CPT:53112 Reason for Study: eval for malignancy (Case [...] pager listed below: User placing orders pager: [phone] LAST CREATININE 1.0 (04/22/24) Report Status: Verified Date Reported: MAY 20, 2024 Date Verified: MAY 20, 2024 Filter Changer E-Sig:/ES/RUFUS GROVES MD, FACR, CCD Report: PET/CT [...] Staff: RUFUS GROVES MD, FACR, STAFF RADIOLOGIST (Filter Changer) /BSF RUFUS GROVES [facility] Apr 20, 2024 08:[address] (CAP) CHEST/ABD/PELVIS (P): JUAN THOMPSON [id number] -1945 M Exm Date: APR 20, 2024@08:07 Req Phys: JACRACHEL PRICE Pat Loc: [facility] APACT L RES 03 WH 4F (Req' Img Loc: CT IMAGING Service: [place] [address] (Case 147 COMPLETE) CT (CAP) CHEST W CONTRAST (CT Detailed) CPT:36696 Contrast Media : Non-ionic Iodinated Reason for Study: 78M with weight loss & lymphadenopathy, CT for malignancy eval (Case 148 COMPLETE) CT (CAP) ABDOMEN/PELVIS W CONTRAS(CT Detailed) CPT:06614 Contrast Media : Non-ionic Iodinated Clinical History: [...] any questions or notifications of critical findings: [phone] If ordering provider is a trainee, enter [...] PLASMA .CREAT EGFR(CKD-E 63 Ref: >=60 Allergies: ([place] only) SULFAMETHOXAZOLE (Feb 07, 2022) EMPAGLIFLOZIN (Jun 06, 2022) Report Status: Verified Date Reported: APR 20, 2024 Date Verified: APR 20, 2024 Filter Changer E-Sig:/ES/JONATAN MILLER MD Report: CT CHEST, ABDOMEN [...] Primary Interpreting Staff: JONATAN MILLER MD, RADIOLOGIST (Filter Changer) /JONATAN GOMEZ [facility] Pathology Reports: +/- 30 days of [...] the Encounter. The data comes from all [place] treatment facilities. Date/Time Pathology Report Provider Source May 14, 2024 10:47 AM LR SURGICAL PATHOLOGY REPORT: LOCAL TITLE: LR SURGICAL PATHOLOGY REPORT STANDARD TITLE: PATHOLOGY REPORT DATE OF NOTE: MAY 14, 2024@10:47:04 ENTRY DATE: MAY 14, 2024@10:47:04 AUTHOR: VIPUL DASILVA COSIGNER: URGENCY: STATUS: COMPLETED $APHDR Reporting Lab: [facility] [CLIA# [id number]] [employer] [place] [place] [address] - - - - - - - [...] Performing Laboratory: Surgical Pathology Report Performed By: [facility] [CLIA# [id number]] [place] [address] $FTR - - - - - - [...] - - JUAN THOMPSON STANDARD FORM 515 ID:[id number] SEX:M :1945 AGE: 78 LOC:[id number] PCP: Sonia Phillips /pablo/ VIPUL DASILVA MD STAFF PATHOLOGIST Signed: 05/14/2024 10:47 VIPUL DASILVA [facility] Encounter Notes: All associated encounter notes This section contains the clinical notes associated to the Encounter. Date/Time Encounter Note(s) Provider Source May 13, 2024 12:48 PM HEMATOLOGY AND ONCOLOGY CONSULT: LOCAL TITLE: HEM/ONC/COAG CONSULT STANDARD TITLE: HEMATOLOGY AND ONCOLOGY CONSULT DATE OF NOTE: MAY 13, 2024@12:48 ENTRY DATE: MAY 13, 2024@12:48:19 AUTHOR: ABBY MEANS EXP COSIGNER: URGENCY: STATUS: COMPLETED HEM/ONC/COAG CONSULT Has ADDENDA Reason for consult: Lytic lesions on CT, pending further work up. History of present illness: A 78 -year-old male with complex PMHx including but not limited to Ina en Y bypass (2011), Afib on eliquis, personal history of colonic polyps, mild cognitive disorder, bipolar disorder, >30 year smoking history, lung nodules here for initial oncology visit for lytic lesions and non specific LAD noted on CT and ongoing unintentional weight loss for malignancy work up. Pt noted to have 65+ lb weight loss since few months, overall decline in energy levels. Pt reports pink sputum. Pt has been taking semaglutide from 10/2022 until 02/2024 when metabolic clinic team stopped 02/2024. As part of weight loss work up, CT CAP was done that showed multiple non specific LAD, Mottled appearance to ribs, thoracic, lumbar spine, femoral heads and neck with suggestion of a small lytic lesions within the sacrum and iliacs. RLL opacity 1.4 x 1.1 cm with semisolid components. He has ongoing back and hip pain ongoing since few months.I do see some XRays done over past few months. Mid February 2024 had mechanical fall: XR L hip without fracture In january pt had Lumbar spine and R hip X ray for radiating RLE pain: showed modest degenerative changes in L spine and advanced degernative change in R hip. 07/2023 CT C spine showed multi level degenerative changes without fratures. 04/22/24: SPEP, UPEP: no monoclonal protein, 11/27/22: Dexa scan - Normal BMD. Most recent PSA:2012 0.29 Most recent colonoscopy: 08/28/2016: Impression: - The cecum is normal. - The transverse colon is normal. - Diverticulosis in the sigmoid colon and in the ascending colon making the colonoscopy particularly challenging. - Hemorrhoids. - No specimens collected. Recommendation: - Discharge patient to home. - Repeat colonoscopy can be consider in 10 years for surveillance, however, the patient will be > 75 y/o and colon cancer screening will no longer be needed Endoscopy: 05/08/2022: A 3 cm hiatal hernia was present. The middle third of the esophagus and lower third of the esophagus were normal. Biopsies were taken with a cold forceps for histology. Evidence of a sleeve gastrectomy was found in the gastric body. This was characterized by congestion, edema, erosion and erythema. Biopsies were taken with a cold forceps for Helicobacter pylori testing. Path: SPEC.1 Stomach; body; biopsy-- -mild to moderate reactive gastropathy, vascular congestion -special stain for H pylori with adequate controls is negative SPEC.2 Stomach; body, white plaques; biopsy-- -mild to moderate reactive gastropathy, vascular congestion, and edema -PAS special stain with adequate controls is negative for fungal forms -special stain for H pylori with adequate controls is negative SPEC.3 Esophagus; mid/distal; biopsies-- -no significant histopathologic abnormalities -no evidence of eosinophilic esophagitis PAST MEDICAL HISTORY: Active problems - Computerized Problem List is the source for the followin. Essential hypertension (SNOMED CT 66571705) 2. Major depressive disorder (SNOMED CT 197480611) 3. Generalized anxiety disorder (SNOMED CT 75484593) 4. Primary Obesity 5. Bronchiectasis (SNOMED CT 54876540) 6. Gastroesophageal reflux disease (SNOMED CT 537735153) 7. Bariatric Surgery Status 8. Cataracts (SNOMED CT 60485175) 9. Hypermetropia/Hyperopia 10. Astigmatism, Unspec 11. Presbyopia 12. Atrial fibrillation (SNOMED CT 66928063) 13. Varicose veins of lower extremity 14. Compulsive gambling 15. Bipolar disorder (SNOMED CT 20066477) 16. Mild cognitive disorder 17. Type 2 diabetes mellitus 18. Long-term current use of anticoagulant 19. Gastritis 20. Dementia ALLERGIES Reviewed: SULFAMETHOXAZOLE (Feb 07, 2022) EMPAGLIFLOZIN (Jun 06, 2022) Medications reviewed: Active Outpatient Medications (including Supplies): Active Outpatient [...] ONE CAPSULE BY ACTIVE MOUTH EVERY DAY FAMILY HISTORY: PGM: colon cancer maternal AUNT: Colon cancer BROTHER SON: spinal cancer SOCIAL HISTORY: Tobacco use: smoked 1PPD x 20 years, quit >30 years ago Alcohol: Drink very occasionally , once a month Lives by himself. Has assistance with nurses visiting him at home. 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 REVIEW OF SYSTEMS: All other systems are negative except what was mentioned in the history of present illness. PHYSICAL EXAMINATION: VITAL SIGNS: Tempreture:98.6 F [37.0 C] (05/13/2024 12:38), BP: 120/80 (05/13/2024 12:38), HR: 105 (05/13/2024 12:38), RR: 17 (05/13/2024 12:38), Weight: 162.3 lb [73.62 kg] (05/13/2024 12:38) Vital Signs Max/Min Last 24 Hrs: VITALS HIGH & LOW - NONE FOUND CBC: WBC 8.3 (05/13/24) HGB 11.5 L (05/13/24) HCT 36.7 L (05/13/24) PLT 327 (05/13/24) ABS NEUT 5.5 (05/13/24) ABS LYMPH 2.0 (05/13/24) Hg trend: HGB 11.5 L BLOOD (05/13/24 11:44) 13.0 L BLOOD (04/22/24 08:15) 12.3 L BLOOD (03/05/24 09:55) BMP POTASSIUM 4.1 (05/13/24) CO2 30 H (05/13/24) UREA NITROGEN 26 (05/13/24) CREATININE 1.0 (05/13/24) CALCIUM 9.2 (05/13/24) Liver Function tests: SGOT 21 (05/13/24) SGPT 14 (05/13/24) BILIRUBIN, TOTAL 0.4 (05/13/24) ALK PHOSPHATASE 78 (05/13/24) ALBUMIN 3.9 (05/13/24) IMAGING Reviewed with patient: 04/20/24: CT CAP: FINDINGS: LUNG PARENCHYMA AND PLEURA: Calcified pleural [...] lateral left lower lobe image 218. MEDIASTINUM: Patulous esophagus with mild esophageal wall thickening and a small sliding-type hiatal hernia. A few prominent paratracheal, AP window, subcarinal and hilar lymph nodes some of which are partially calcified. Largest noncalcified lymph node measures 3.2 mm in short axis dimension . Mucosal stranding in the distal trachea. Central tracheobronchial tree otherwise clear. Kidneys: Fluid attenuating cysts within both kidneys. [...] as described in the body the report. Performance Status ECOG = 2 (ambulating with walker, Lives with assited care living [facility] due to cognitive issues) ASSESSMENT: A 78 -year-old male with complex PMHx including but not limited to [place] en Y bypass (2011), Afib on eliquis, personal history of colonic polyps, mild cognitive disorder, bipolar disorder, >3- year smoking history, lung nodules here for initial oncology visit for lytic lesions and non specific LAD noted on CT and ongoing unintentional weight loss for malignancy work up. At this time we do not have a definite diagnosis of malignancy. PSA today noral. SPEP , UPEP without monoclonal protein, will complete MM workup with Light chains, IgG levels. Overall low suspicion of MM with normal renal function, normal Calcium, Hgb 11-13 to explain this extent of bone inv, could still be light chain disease. Pt has unexplained non specifci LAD of unclear origin. We recommend work up with PET/CT and most amenable lesion biopsy after PET. RECOMMENDATIONS - F/u labs from today - PET/CT - Next steps based on above work up. RTC 05/26/24 to review PET/CT results and discuss +/- biopsy. 80 min spent with patient, with greater than 50% in patient education, counselling, management and coordination of care. Patient seen and examined with Dr. Gideon Means MD Hematology and Medical Oncology Fellow Pager: /pablo/ ABBY MEANS HEMATOLOGY AND MEDICAL ONCOLOGY FELLOW Signed: 05/13/2024 14:06 Receipt Acknowledged By: 05/14/2024 18:44 /pablo/ Renuka Johnson MD HEM/ONC STAFF PHYSICIAN 05/14/2024 ADDENDUM STATUS: COMPLETED I saw Mr. Thompson and agree with the fellow note and plan. Mr. Thompson has weight loss, new bone lesiosn on imaging, and lymphadenopathy. Recommended a pet/ct to better define a potential biopsy site to evaluate for malignancy. Will f/u after the pet/ct is complete and make recommendations then. /pablo/ Renuka Johnson MD HEM/ONC STAFF PHYSICIAN Signed: 05/14/2024 18:45 05/25/2024 ADDENDUM STATUS: COMPLETED PET SCAN 05/20/24 Impression: 1. Hyperglycemia. This may decrease the sensitivity of the examination for detecting viable tumor. 2. No malignancy identified. 3. Residual groundglass opacity right upper lobe. This is associated with a 5 mm solid nodule which appears new from April 20, 2024. I would favor the findings are likely inflammatory in nature. If clinically desired, close follow-up can be considered. Will review with MD Johnson prior to visit to determine if we will continue to follow vs. biopsy. /pablo/ JAVIER MICHELLE, MSN, CORE INSPECTOR CORE INSPECTOR Signed: 05/25/2024 17:36 ABBY MEANS [facility] May 13, 2024 12:41 PM INTERNAL MEDICINE OUTPATIENT NOTE: LOCAL TITLE: MEDICINE CLINIC NURSING NOTE STANDARD TITLE: INTERNAL MEDICINE OUTPATIENT NOTE DATE OF NOTE: MAY 13, 2024@12:41 ENTRY DATE: MAY 13, 2024@12:41:44 AUTHOR: ЕЛЕНА LAWTON EXP COSIGNER: URGENCY: STATUS: COMPLETED TYPE OF VISIT: Appointment Check In Type of appointment: In-person appointment REASON FOR VISIT: Scheduled visit ALLERGIES: SULFAMETHOXAZOLE (Feb 07, 2022) EMPAGLIFLOZIN (Jun 06, 2022) VITAL SIGNS: Blood Pressure: 120/80 (05/13/2024 12:38) Pulse: 105 (05/13/2024 12:38) Respiration: 17 (05/13/2024 12:38) Temperature: 98.6 F [37.0 C] (05/13/2024 12:38) Weight: 162.3 lb [73.62 kg] (05/13/2024 12:38) Height: 68 in [172.7 cm] (04/22/2024 08:40) BMI: 24.7 O2 Sat: 97% (05/13/2024 12:38) Pain: 4 (05/13/2024 12:38) PAIN SCREEN: Patient is not having significant pain that they wish to discuss with their provider today. MEDICATION Over the Counter/Herbal Medications: The patient denies taking any outside medications or herbals. Hematology/Oncology Clinic Has the [place] had concerns about any of the items below in the past week, including today. Physical Problems: If yes, notify provider of physical problem(s) Pain Sleep Fatigue Memory or concentration Emotional Concerns: Loss of interest or enjoyment Loneliness Social Concerns: Relationship with family members Communication with health care team Practical Concerns: Housing Transportation Treatment decisions Referral resources: Physical Concerns: Contacted Nursing/Provider Patient declines Social Work /pablo/ ЕЛЕНА LAWTON LPN Signed: 05/13/2024 12:48 Receipt Acknowledged By: 05/13/2024 13:08 /pablo/ TISHA KRUSE, CABLE WORKER HELPER Primary Care Contracting Engineer ЕЛЕНА LAWTON [facility]
--- OUTSIDE RECORDS SUMMARY | 2024-07-06 16:19 | XMS_ITS | Encounter Summary ---
Author Name [facility] [place] Organization [facility] [place] Address [address] [place] [address] Care Team Providers Care Aluminum Hydroxide Process Operator Name Role Phone SONIA PHILLIPS Primary [...] PART A Sep 26, 2012 PART A [id number] [phone] JUAN THOMPSON JR PATIENT MEDICARE (WNR) MEDICARE (M) PART B Sep 26, 2012 PART B [id number] [phone] JUAN THOMPSON JR PATIENT Selected Encounter This section includes the information on record at [place] for the Encounter. Date/Time Encounter Type Encounter Description Reason Pro vider Source Apr 28, 2024 02:52 PM Outpatient Encounter TELEPHONE TRIAGE IHE Encounter Template Text not used by [place] Plan of Treatment: Future Appointments (+ 6 months) and Future Tests (+/- 45 days) The Plan of Treatment section includes future care activities for the [facility] [place] [facility] This section includes future appointments and future orders which are active, pending or scheduled. Future Appointments This section includes appointments that were scheduled to occur 6 months from the date of the Encounter, up to a maximum of 20 appointments. The data comes from all [facility] facilities. Appointment Date/Time Appointment Type Appointme nt Facility Name Apr 29, 2024 10:30 AM [place] [facility] May 13, 2024 12:00 PM [place] [facility] May 13, 2024 01:00 PM [place] [facility] May 20, 2024 09:45 AM [place] [facility] May 26, 2024 09:15 AM [place] [facility] Jun 03, 2024 10:00 AM [place] [facility] Jun 04, 2024 09:30 AM [place] [facility] Jun 05, 2024 01:30 PM [place] [facility] Jun 12, 2024 07:30 AM [place] [facility] Jun 12, 2024 08:30 AM [place] [facility] Jun 23, 2024 10:15 AM [place] [facility] Jul 06, 2024 08:30 AM [place] [facility] Jul 16, 2024 07:30 AM [place] [facility] Jul 16, 2024 08:30 AM [place] [facility] Jul 16, 2024 09:00 AM [place] [facility] Jul 16, 2024 09:30 AM [place] [facility] Oct 07, 2024 09:00 AM [place] [facility] Oct 19, 2024 09:30 AM [place] [facility] Active, Pending, and Scheduled Orders This section includes a listing of several types of active, pending, and scheduled orders, including clinic medications orders, diagnostic test orders, procedure orders and consult orders; where the start date of the order is 45 days before the date of the Encounter or 45 days after the date of theEncounter. The data comes from all [place] treatment facilities. Test Date/Time Test Type Test Details Facility Name Mar 18, 2024 05:05 PM Consult Order CARDIAC EC HO OUTPT-ALL SITES Cons Branch Service Associate's Choice [facility] Lab Results: +/- 30 days of [...] Range Comment May 20, 2024 09:39 AM [facility] FINGERSTICK GLUCOSE Specimen Type: BLOOD Comment: Save Result Ordering Provider: TANK PHILLIPS Report Released Date/Time: May 20, 2024 03:03 PM Reporting Lab: [facility] [address] Performing Lab: [facility] [address] FINGERSTICK GLUCOSE 148 mg/dL H 70-100 May 13, 2024 11:44 AM [facility] KAPPA/LAMBDA LC FREE,RATIO Specimen Type: SERUM [...] therapy of these disorders. Test Performed by [email or web address], [facility], [address] [place] [address] Devante Meyer M.D., Ph.D., Director of Laboratories , CLIA [id number] Ordering Provider: RENUKA JOHNSON Report Released Date/Time: Apr 24, 2024 04:08 PM Reporting Lab: [facility] [address] Performing Lab: [address] .KAPPA LT CHAIN,FREE 27.3 mg/L H 3.3-19.4 .LAMBDA LC,FREE 15.8 mg/L 5.7-26.3 .KAPPA/LAMBDA, FREE 1.73 H 0.26-1.65 May 13, 2024 11:44 AM [facility] LD,TOTAL Specimen Type: PLASMA No comment entered. Ordering Provider: RENUKA JOHNSON Report Released Date/Time: Apr 24, 2024 04:08 PM Reporting Lab: [facility] [address] Performing Lab: [facility] [address] LD,TOTAL 141 U/L 125-220 May 13, 2024 11:44 AM [facility] URIC ACID Specimen Type: PLASMA No comment entered. Ordering Provider: RENUKA JOHNSON Report Released Date/Time: Apr 24, 2024 04:08 PM Reporting Lab: [facility] [address] Performing Lab: [facility] [address] URIC ACID 3.1 mg/dL L 3.7-7.7 May 13, 2024 11:44 AM [facility] B 12 Specimen Type: SERUM No comment entered. Ordering Provider: RENUKA JOHNSON Report Released Date/Time: Apr 24, 2024 04:08 PM Reporting Lab: [facility] [address] Performing Lab: [facility] [address] B 12 722 pg/mL 213-816 May 13, 2024 11:44 AM [facility] FOLATE Specimen Type: SERUM No comment entered. Ordering Provider: RENUKA JOHNSON Report Released Date/Time: Apr 24, 2024 04:08 PM Reporting Lab: [facility] [address] Performing Lab: [facility] [address] FOLATE 14.6 ng/mL >7.0 May 13, 2024 11:44 AM [facility] PHOSPHORUS Specimen Type: PLASMA No comment entered. Ordering Provider: RENUKA JOHNSON Report Released Date/Time: Apr 24, 2024 04:08 PM Reporting Lab: [facility] [address] Performing Lab: [facility] [address] PHOSPHORUS 3.3 mg/dL 2.3-4.3 May 13, 2024 11:44 AM [facility] IRON GROUP Specimen Type: SERUM No comment entered. Ordering Provider: RENUKA JOHNSON Report Released Date/Time: Apr 24, 2024 04:08 PM Reporting Lab: [facility] [address] Performing Lab: [facility] [address] IRON 101 ug/dL 65-175 TIBC,CALCULATE D 313 ug/dL 250-425 FERRITIN pending IRON SATURATION 32 20-50 TRANSFERRIN 250 mg/dL 163-382 May 13, 2024 11:44 AM [facility] BETA 2-MICROGLOBULIN Specimen Type: SERUM No comment entered. Ordering Provider: RENUKA JOHNSON Report Released Date/Time: Apr 24, 2024 04:08 PM Reporting Lab: [facility] [address] Performing Lab: [facility] [address] BETA 2-MICROGLOBULI N 3.36 mg/L H 0.97-2.64 May 13, 2024 11:44 AM [facility] PSA Specimen Type: SERUM No comment entered. Ordering Provider: ABBY MEANS Report Released Date/Time: May 12, 2024 08:28 PM Reporting Lab: [facility] [address] Performing Lab: [facility] [address] PSA 0.49 ng/mL <4.00 May 13, 2024 11:44 AM [facility] TOTAL IMMUNOGLOB (IGA,IGG,IGM) Specimen Type: PLASMA No comment entered. Ordering Provider: RENUKA JOHNSON Report Released Date/Time: Apr 24, 2024 04:08 PM Reporting Lab: [facility] [address] Performing Lab: [facility] [address] IGM 78.8 mg/dL 22.0-293.0 IGG 714.3 mg/dL 540.0-18 22 .0 IGA 123.8 mg/dL 63.0-645.0 May 13, 2024 11:44 AM [facility] TESTOSTERONE Specimen Type: SERUM No comment entered. Ordering Provider: ABBY MEANS Report Released Date/Time: May 12, 2024 08:30 PM Reporting Lab: [facility] [address] Performing Lab: [facility] [address] TESTOSTERONE 534 ng/dL 221-870 May 13, 2024 11:44 AM [facility] CBC & DIFF Specimen Type: BLOOD Comment: Automated Differential Performed Ordering Provider: RENUKA JOHNSON Report Released Date/Time: Apr 24, 2024 04:08 PM Reporting Lab: [facility] [address] Performing Lab: [facility] [address] WBC 8.3 4.0-11.0 RBC 4.04 L 4.60-6.20 [...] 0.0 0.0-0.1 May 13, 2024 11:44 AM [facility] COMPREHENSIVE METABOLIC PANEL+MG Specimen Type: PLASMA No comment entered. Ordering Provider: RENUKA JOHNSON Report Released Date/Time: Apr 24, 2024 04:08 PM Reporting Lab: [facility] [address] Performing Lab: [facility] [address] CREATININE 1.0 mg/dL 0.7-1.2 UREA NITROGEN 26 [...] 78 >60 May 13, 2024 11:44 AM [facility] PERIPHERAL SMEAR PATHOLOGIST REVIEW Specimen Type: BLOOD No comment entered. Ordering Provider: RENUKA JOHNSON Report Released Date/Time: May 13, 2024 01:51 PM Reporting Lab: [facility] [address] Performing Lab: [facility] [address] PERIPHERAL SMEAR PATHOLOGIST REVIEW SLIDES MADE Apr 22, 2024 10:41 AM [facility] ELP/IMMFIX,SERUM PANEL Specimen Type: SERUM Comment: Decreased gamma fraction may be seen in certain lymphoproliferat jeff disorders. Recommend submitting a 24 hr urine for ELP and immunofixation tests. Ordering Provider: LYUBOV YEUNG Report Released Date/Time: Apr 22, 2024 10:20 AM Reporting Lab: [facility] [address] Performing Lab: [facility] [address] PROTEIN,TOTAL 6.0 g/dL L 6.4-8.3 .ALBUMIN FRACTION 3.63 g/dL L 3.66-4.78 .ALPHA 1 FRACTION 0.37 g/dL 0.14-0.38 .ALPHA 2 FRACTION 0.81 g/dL 0.50-0.90 .BETA 1 FRACTION 0.34 g/dL 0.33-0.55 .BETA 2 FRACTION 0.28 g/dL 0.20-0.52 .GAMMA FRACTION 0.57 g/dL L 0.58-1.72 .TOTAL PROTEIN 6.0 g/dL 6.0-8.3 .INTERPRETATIO N NO MONOCLONALS DETECTED Apr 22, 2024 10:32 AM [facility] ELP/IMMFIX,URINE RANDOM PANEL Specimen Type: URINE No comment entered. Ordering Provider: LYUBOV YEUNG Report Released Date/Time: Apr 22, 2024 10:20 AM Reporting Lab: [facility] [address] Performing Lab: [facility] [address] PROTEIN,T. RANDOM UR <6.8 mg/dL <14.0 .INTERPRETATIO N,UR NO MONOCLONALS DETECTED Apr 22, 2024 08:15 AM [facility] CBC Specimen Type: BLOOD No comment entered. Ordering Provider: LYUBOV YEUNG Report Released Date/Time: Oct 09, 2023 11:10 AM Reporting Lab: [facility] [address] Performing Lab: [facility] [address] WBC 9.8 4.0-11.0 RBC 4.45 L 4.60-6.20 HGB 13.0 g/dL L 13.5-17.9 HCT 40.2 L 41-54 MCV 90.3 fL 80-100 MCH 29.2 pg 27-33 MCHC 32.3 g/dL 32.0-37.5 PLT 328 150-400 MPV 9.7 fL 9.1-13.0 RDW 14.3 11.5-14.5 Apr 22, 2024 08:15 AM [facility] BASIC METABOLIC PANEL+MG Specimen Type: PLASMA No comment entered. Ordering Provider: LYUBOV YEUNG Report Released Date/Time: Oct 09, 2023 11:10 AM Reporting Lab: [facility] [address] Performing Lab: [facility] [address] CREATININE 1.0 mg/dL 0.7-1.2 UREA NITROGEN 18 mg/dL 8-26 GLUCOSE 217 mg/dL H 70-100 SODIUM 144 mmol/L 136-145 POTASSIUM 4.3 mmol/L 3.5-5.1 CHLORIDE 106 mmol/L 98-107 CO2 31 mmol/L H 22-29 CALCIUM 9.6 mg/dL 8.4-10.2 MAGNESIUM 1.4 mg/dL L 1.6-2.6 ANION GAP 7 mmol/L 5-15 .CREAT EGFR(CKD-EPI) 78 >60 Apr 20, 2024 08:28 AM [facility] POC CREATININE Specimen Type: BLOOD No comment entered. Ordering Provider: TANK PHILLIPS Report Released Date/Time: Apr 20, 2024 08:30 AM Reporting Lab: [facility] [address] Performing Lab: [facility] [address] POC CREATININE 1.1 mg/dL 0.6-1.3 Social History: Smoking Status (Most current) and [...] Current Smoking Status Comment Aj ity Aug 21, 2023 10:30 AM VA-TOBACCO QUIT 15 YRS OR MORE [facility] Tobacco Use History This section includes a history of the smoking, or tobacco-related health factors, that were collected on or before the date of the Encounter. The data comes from the [place] facility where the Encounter took place. Date/Time Smoking Status/Tobacco Use Comment F acility Aug 21, 2023 10:30 AM VA-TOBACCO QUIT 15 YRS OR MORE [facility] Aug 15, 2022 09:00 AM VA-TOBACCO FORMER USER [facility] Aug 15, 2022 09:00 AM VA-TOBACCO QUIT 15 YRS OR MORE [facility] Aug 21, 2021 01:00 PM VA-TOBACCO FORMER USER [facility] Aug 21, 2021 01:00 PM VA-TOBACCO QUIT 15 YRS OR MORE [facility] Jul 09, 2018 08:58 AM VA-TOBACCO FORMER USER [facility] Jul 09, 2018 08:58 AM VA-TOBACCO QUIT 15 YRS OR MORE [facility] Jul 18, 2017 09:58 AM FORMER TOBACCO USER 7Y OR GREATE R [facility] Aug 14, 2016 10:59 AM FORMER TOBACCO USER 7Y OR GREATE R [facility] Jun 29, 2015 02:03 PM FORMER TOBACCO USER 7Y OR GREATE R [facility] Jan 06, 2014 03:04 PM FORMER TOBACCO USER 7Y OR GREATE R [facility] Jan 04, 2012 08:36 AM FORMER TOBACCO USER 7Y OR GREATE R [facility] Radiology Reports: [...] the Encounter. The data comes from all [place] treatment facilities. Date/Time Radiology Report Provider Source May 20, 2024 09:[address] BODY W/O CONTRAST (P): JUAN THOMPSON [id number] -1945 M Exm Date: MAY 20, 2024@09:14 Req Phys: LYUBOV YEUNG Loc: [facility] APACT L RES 03 WH 4F (Req' Img Loc: [facility] Service: [place] [address] (Case [id number] COMPLETE) SKULL-THIGH PET IMAGE W/CT (NM Detailed) CPT:28867 Reason for Study: eval for malignancy (Case [...] pager listed below: User placing orders pager: [phone] LAST CREATININE 1.0 (04/22/24) Report Status: Verified Date Reported: MAY 20, 2024 Date Verified: MAY 20, 2024 Professor Of Engineering E-Sig:/ES/RUFUS GROVES MD, FACR, CCD Report: PET/CT [...] Staff: RUFUS GROVES MD, FACR, STAFF RADIOLOGIST (Professor Of Engineering) /BSF RUFUS GROVES [facility] Apr 20, 2024 08:[address] (CAP) CHEST/ABD/PELVIS (P): JUAN THOMPSON [id number] 1945 M Exm Date: APR 20, 2024@08:07 Req Phys: RACHEL WATSON Pat Loc: [facility] APACT L RES 03 WH 4F (Req' Img Loc: CT IMAGING Service: [place] [address] (Case [id number] COMPLETE) CT (CAP) CHEST W CONTRAST (CT Detailed) CPT:62586 Contrast Media : Non-ionic Iodinated Reason for Study: 78M with weight loss & lymphadenopathy, CT for malignancy eval (Case 148 COMPLETE) CT (CAP) ABDOMEN/PELVIS W CONTRAS(CT Detailed) CPT:41616 Contrast Media : Non-ionic Iodinated Clinical History: [...] any questions or notifications of critical findings: [phone] If ordering provider is a trainee, enter [...] PLASMA .CREAT EGFR(CKD-E 63 Ref: >=60 Allergies: ([place] only) SULFAMETHOXAZOLE (Feb 07, 2022) EMPAGLIFLOZIN (Jun 06, 2022) Report Status: Verified Date Reported: APR 20, 2024 Date Verified: APR 20, 2024 Professor Of Engineering E-Sig:/ES/JONATAN MILLER MD Report: CT CHEST, ABDOMEN [...] Primary Interpreting Staff: JONATAN MILLER MD, RADIOLOGIST (Professor Of Engineering) /[facility] Pathology Reports: +/- 30 days of the [...] the Encounter. The data comes from all [place] treatment facilities. Date/Time Pathology Report Provider Source May 14, 2024 10:47 AM LR SURGICAL PATHOLOGY REPORT: LOCAL TITLE: LR SURGICAL PATHOLOGY REPORT STANDARD TITLE: PATHOLOGY REPORT DATE OF NOTE: MAY 14, 2024@10:47:04 ENTRY DATE: MAY 14, 2024@10:47:04 AUTHOR: VIPUL DASILVA COSIGNER: URGENCY: STATUS: COMPLETED $APHDR Reporting Lab: [facility] [CLIA# [id number]] [place] [address] - - - - - - - [...] Performing Laboratory: Surgical Pathology Report Performed By: [facility] [CLIA# [id number]] [facility] [place] [address] $FTR - - - - - - [...] - - - - - JUAN THOMPSON SIRIA STANDARD FORM 515 ID:[id number] SEX:M :1945 AGE: 78 LOC:[id number] PCP: Sonia Phillips /pablo/ VIPUL DASILVA MD STAFF PATHOLOGIST Signed: 05/14/2024 10:47 VIPUL DASILVA [facility] Encounter Notes: All associated encounter notes This section contains the clinical notes associated to the Encounter. Date/Time Encounter Note(s) Provider Source Apr 28, 2024 02:52 PM ADMINISTRATIVE NOT E: LOCAL TITLE: CCC: SCHEDULING ADMINISTRATION STANDARD TITLE: ADMINISTRATIVE NOTE DATE OF NOTE: APR 28, 2024@14:52 ENTRY DATE: APR 28, 2024@14:52:40 AUTHOR: ROYA SALAS EXP COSIGNER: URGENCY: STATUS: COMPLETED CCC: SCHEDULING ADMINISTRATION Has [facility] Primary Care Call Center Primary Care Provider Call. Please contact at the following number: [phone] Other: Nathalie with [facility] would like a call back to go over results of the CT scan he had done last week. Please contact Nathalie at number above to further discuss. This note was created by a [employer] [facility] Call Center JANESA/ANASTACIO. Please do not alert this mortgage or loan underwriter by adding as a signer for future communications. Alerts are not monitored by this user, please reach out to [facility] Leadership instead if indicated. /aneesh SALAS Risk Control Consultant Signed: 04/28/2024 14:54 Receipt Acknowledged By: 05/01/2024 11:35 /pablo/ Brittani Hernandez RN Registered Nurse 05/01/2024 ADDENDUM STATUS: COMPLETED See PACT RN note. /aneesh Hernandez RN Registered Nurse Signed: 05/01/2024 11:36 ROYA SALAS [facility]
--- OUTSIDE RECORDS SUMMARY | 2024-07-06 16:19 | XMS_ITS | Encounter Summary ---
Author Name [facility] Organization [facility] [place] Address [address] [place] [address] Care Team Providers Care Party Planner Name Role Phone SONIA PHILLIPS Primary Care [...] PART B Sep 26, 2012 PART B [id number] [facility] [phone] JUAN THOMPSON JR PATIENT MEDICARE (WNR) MEDICARE (M) PART A Sep 26, 2012 PART A [id number] [phone] JUAN THOMPSON JR PATIENT Selected Encounter This section includes the information on record at [place] for the Encounter. Date/Time Encounter Type Encounter Description Reason Provider Source May 01, 2024 11:13 AM HC PRO PHONE CALL 21-30 MIN TELEPHONE PRIMARY CARE ICD-10-CM F03.A18 Unspecified dementia, mild, with other behavioral disturb BRITTANI HERNANDEZ [facility] Encounter Template Text not used by [place] Assessments - Encounter Diagnoses This section includes the primary and secondary diagnoses documented for the Encounter. Date/Time Primary/Secondary Diagnosis Diagnosis Name Provider Source May 01, 2024 11:13 AM PRIMARY Unspecified dementia, mild, with other behavioral disturb BRITTANI HERNANDEZ [facility] May 01, 2024 11:13 AM SECONDARY Abnormal weight loss BRITTANI HERNANDEZ [facility] Plan of Treatment: Future Appointments (+ 6 months) and Future Tests (+/- 45 days) The Plan of Treatment section includes future care activities for the patient from all [place] [facility]. This section includes future appointments and future orders which are active, pending or scheduled. Future Appointments This section includes appointments that were scheduled to occur 6 months from the date of the Encounter, up to a maximum of 20 appointments. The data comes from all [place] treatment facilities. Appointment Date/Time Appointment Type Appointme nt Facility Name May 13, 2024 12:00 PM AM[place] - [place] [facility] [facility] May 13, 2024 01:00 [facility] May 20, 2024 09:45 AM [facility] [place] [facility] May 26, 2024 09:15 AM [facility] Jun 03[facility] 2024 10:00 [facility] Jun 04, 2024 09:30 [facility] Jun 05, 2024 01:30 PM [place] [facility] Jun 12, 2024 07:30 AM [place] [facility] Jun 12, 2024 08:30 AM [place] [facility] Jun 23, 2024 10:15 AM [place] [facility] Jul 06, 2024 08:30 AM [place] [facility] Jul 16, 2024 07:30 AM [place] [facility] Jul 16, 2024 08:30 AM [place] [facility] Jul 16, 2024 09:00 AM [facility] 16, 2024 09:30 [facility] Oct 07, 2024 09:00 AM [place] [facility] Oct 19, 2024 09:30 AM [place] [facility] Active, Pending, and Scheduled Orders This section includes a listing of several types of active, pending, and scheduled orders, including clinic medications orders, diagnostic test orders, procedure orders and consult orders; where the start date of the order is 45 days before the date of the Encounter or 45 days after the date of theEncounter. The data comes from all [place] treatment facilities. Test Date/Time Test Type Test Details Facility Name Mar 18, 2024 05:05 PM Consult Order CARDIAC EC HO OUTPT-ALL SITES Cons [employer] [facility] Lab Results: +/- 30 days of the encounter This section includes the Chemistry and Hematology Lab Results on record with [place] for the patient. Radiology Reports and Pathology Reports are provided separately, in subsequent sections. Lab Results This section contains the Chemistry/Hematology Results that were resulted 30 days before or 30 daysafter the date of the Encounter. Date/Time Source Result Type Result - Unit Interpretation Reference Range Comment May 20, 2024 09:39 AM [facility] FINGERSTICK GLUCOSE Specimen Type: BLOOD Comment: Save Result Ordering Provider: TANK PHILLIPS Report Released Date/Time: May 20, 2024 03:03 PM Reporting Lab: [facility] [phone] Performing Lab: [facility] [address] FINGERSTICK GLUCOSE 148 mg/dL H 70-100 May 13, 2024 11:44 AM [facility] KAPPA/LAMBDA LC FREE,RATIO Specimen Type: [...] these disorders. Test Performed by Jose Louie, [facility], [address] [place], [place] Devante Meyer M.D., Ph.D., Director of Laboratories , [facility] [id number] Ordering Provider: RENUKA JOHNSON Report Released Date/Time: Apr 24, 2024 04:08 PM Reporting Lab: [facility] [address] Performing Lab: [facility] [address] [facility] .KAPPA LT CHAIN,FREE 27.3 mg/L H 3.3-19.4 .LAMBDA LC,FREE 15.8 mg/L 5.7-26.3 .KAPPA/LAMBDA, FREE 1.73 H 0.26-1.65 May 13, 2024 11:44 AM [facility] LD,TOTAL Specimen Type: PLASMA No comment entered. Ordering Provider: RENUKA JOHNSON Report Released Date/Time: Apr 24, 2024 04:08 PM Reporting Lab: [facility] [address] Performing Lab: [facility] [address] LD,TOTAL 141 U/L 125-220 May 13, 2024 11:44 AM [facility] URIC ACID Specimen Type: PLASMA No comment entered. Ordering Provider: RENUKA JOHNSON Report Released Date/Time: Apr 24, 2024 04:08 PM Reporting Lab: [facility] [address] Performing Lab: [facility] [address] URIC ACID 3.1 mg/dL L 3.7-7.7 May 13, 2024 11:44 AM [facility] B 12 Specimen Type: SERUM No comment entered. Ordering Provider: RENUKA JOHNSON Report Released Date/Time: Apr 24, 2024 04:08 PM Reporting Lab: [facility] [address] Performing Lab: [facility] [address] B 12 722 pg/mL 213-816 May 13, 2024 11:44 AM [facility] FOLATE Specimen Type: SERUM No comment entered. Ordering Provider: RENUKA JOHNSON Report Released Date/Time: Apr 24, 2024 04:08 PM Reporting Lab: [facility] [address] Performing Lab: [facility] [address] FOLATE 14.6 ng/mL >7.0 May 13, 2024 11:44 AM [facility] PHOSPHORUS Specimen Type: PLASMA No comment entered. Ordering Provider: RENUKA JOHNSON Report Released Date/Time: Apr 24, 2024 04:08 PM Reporting Lab: [facility] [address] Performing Lab: [facility] [address] PHOSPHORUS 3.3 mg/dL 2.3-4.3 May 13, 2024 11:44 AM [facility] IRON GROUP Specimen Type: SERUM No comment entered. Ordering Provider: RENUKA JOHNSON Report Released Date/Time: Apr 24, 2024 04:08 PM Reporting Lab: [facility] [address] Performing Lab: [facility] [address] IRON 101 ug/dL 65-175 TIBC,CALCULATE D 313 ug/dL 250-425 FERRITIN pending IRON SATURATION 32 20-50 TRANSFERRIN 250 mg/dL 163-382 May 13, 2024 11:44 AM [facility] BETA 2-MICROGLOBULIN Specimen Type: SERUM No comment entered. Ordering Provider: RENUKA JOHNSON Report Released Date/Time: Apr 24, 2024 04:08 PM Reporting Lab: [facility] [address] Performing Lab: [facility] [address] BETA 2-MICROGLOBULI N 3.36 mg/L H 0.97-2.64 May 13, 2024 11:44 AM [facility] PSA Specimen Type: SERUM No comment entered. Ordering Provider: ABBY MEANS Report Released Date/Time: May 12, 2024 08:28 PM Reporting Lab: [facility] [address] Performing Lab: [facility] [address] PSA 0.49 ng/mL <4.00 May 13, 2024 11:44 AM [facility] TOTAL IMMUNOGLOB (IGA,IGG,IGM) Specimen Type: PLASMA No comment entered. Ordering Provider: RENUKA JOHNSON Report Released Date/Time: Apr 24, 2024 04:08 PM Reporting Lab: [facility] [address] Performing Lab: [facility] [address] IGM 78.8 mg/dL 22.0-293.0 IGG 714.3 mg/dL 540.0-18 22 .0 IGA 123.8 mg/dL 63.0-645.0 May 13, 2024 11:44 AM [facility] TESTOSTERONE Specimen Type: SERUM No comment entered. Ordering Provider: ABBY MEANS Report Released Date/Time: May 12, 2024 08:30 PM Reporting Lab: [facility] [address] Performing Lab: [facility] [address] TESTOSTERONE 534 ng/dL 221-870 May 13, 2024 11:44 AM [facility] CBC & DIFF Specimen Type: BLOOD Comment: Automated Differential Performed Ordering Provider: RENUKA JOHNSON Report Released Date/Time: Apr 24, 2024 04:08 PM Reporting Lab: [facility] [address] Performing Lab: [facility] [address] WBC 8.3 4.0-11.0 RBC 4.04 L 4.60-6.20 [...] 0.0 0.0-0.1 May 13, 2024 11:44 AM [facility] COMPREHENSIVE METABOLIC PANEL+MG Specimen Type: PLASMA No comment entered. Ordering Provider: RENUKA JOHNSON Report Released Date/Time: Apr 24, 2024 04:08 PM Reporting Lab: [facility] [address] Performing Lab: [facility] [address] CREATININE 1.0 mg/dL 0.7-1.2 UREA NITROGEN 26 [...] 78 >60 May 13, 2024 11:44 AM [facility] PERIPHERAL SMEAR PATHOLOGIST REVIEW Specimen Type: BLOOD No comment entered. Ordering Provider: RENUKA JOHNSON Report Released Date/Time: May 13, 2024 01:51 PM Reporting Lab: [facility] [address] Performing Lab: [facility] [address] PERIPHERAL SMEAR PATHOLOGIST REVIEW SLIDES MADE Apr 22, 2024 10:41 AM [facility] ELP/IMMFIX,SERUM PANEL Specimen Type: SERUM Comment: Decreased gamma fraction may be seen in certain lymphoproliferat jeff disorders. Recommend submitting a 24 hr urine for ELP and immunofixation tests. Ordering Provider: LYUBOV YEUNG Report Released Date/Time: Apr 22, 2024 10:20 AM Reporting Lab: [facility] [address] Performing Lab: [facility] [address] PROTEIN,TOTAL 6.0 g/dL L 6.4-8.3 .ALBUMIN FRACTION 3.63 g/dL L 3.66-4.78 .ALPHA 1 FRACTION 0.37 g/dL 0.14-0.38 .ALPHA 2 FRACTION 0.81 g/dL 0.50-0.90 .BETA 1 FRACTION 0.34 g/dL 0.33-0.55 .BETA 2 FRACTION 0.28 g/dL 0.20-0.52 .GAMMA FRACTION 0.57 g/dL L 0.58-1.72 .TOTAL PROTEIN 6.0 g/dL 6.0-8.3 .INTERPRETATIO N NO MONOCLONALS DETECTED Apr 22, 2024 10:32 AM [facility] ELP/IMMFIX,URINE RANDOM PANEL Specimen Type: URINE No comment entered. Ordering Provider: LYUBOV YEUNG Report Released Date/Time: Apr 22, 2024 10:20 AM Reporting Lab: [facility] [address] Performing Lab: [facility] [address] PROTEIN,T. RANDOM UR <6.8 mg/dL <14.0 .INTERPRETATIO N,UR NO MONOCLONALS DETECTED Apr 22, 2024 08:15 AM [facility] CBC Specimen Type: BLOOD No comment entered. Ordering Provider: LYUBOV YEUNG Report Released Date/Time: Oct 09, 2023 11:10 AM Reporting Lab: [facility] [address] Performing Lab: [facility] [address] WBC 9.8 4.0-11.0 RBC 4.45 L 4.60-6.20 HGB 13.0 g/dL L 13.5-17.9 HCT 40.2 L 41-54 MCV 90.3 fL 80-100 MCH 29.2 pg 27-33 MCHC 32.3 g/dL 32.0-37.5 PLT 328 150-400 MPV 9.7 fL 9.1-13.0 RDW 14.3 11.5-14.5 Apr 22, 2024 08:15 AM [facility] BASIC METABOLIC PANEL+MG Specimen Type: PLASMA No comment entered. Ordering Provider: LYUBOV YEUNG Report Released Date/Time: Oct 09, 2023 11:10 AM Reporting Lab: [facility] [address] Performing Lab: [facility] [address] CREATININE 1.0 mg/dL 0.7-1.2 UREA NITROGEN 18 mg/dL 8-26 GLUCOSE 217 mg/dL H 70-100 SODIUM 144 mmol/L 136-145 POTASSIUM 4.3 mmol/L 3.5-5.1 CHLORIDE 106 mmol/L 98-107 CO2 31 mmol/L H 22-29 CALCIUM 9.6 mg/dL 8.4-10.2 MAGNESIUM 1.4 mg/dL L 1.6-2.6 ANION GAP 7 mmol/L 5-15 .CREAT EGFR(CKD-EPI) 78 >60 Apr 20, 2024 08:28 AM [facility] POC CREATININE Specimen Type: BLOOD No comment entered. Ordering Provider: TANK PHILLIPS Report Released Date/Time: Apr 20, 2024 08:30 AM Reporting Lab: [facility] [address] Performing Lab: [facility] [address] POC CREATININE 1.1 mg/dL 0.6-1.3 Social History: Smoking Status (Most current) and Tobacco Use (All prior to encounter date) This section includes the most current, and the historical, smoking and tobacco- related health factors from the [facility] where the Encounter took place. Current Smoking Status This section includes the most current smoking, or tobacco-related health factor, from the [place] facility where the Encounter took place. Date/Time Current Smoking Status Comment Aj woods Aug 21, 2023 10:30 AM [place]-TOBACCO QUIT 15 YRS OR MORE [facility] Tobacco Use History This section includes a history of the smoking, or tobacco-related health factors, that were collected on or before the date of the Encounter. The data comes from the [place] facility where the Encounter took place. Date/Time Smoking Status/Tobacco Use Comment Guanakito accelia Aug 21, 2023 10:30 AM VA-TOBACCO QUIT 15 YRS OR MORE [facility] Aug 15, 2022 09:00 AM VA-TOBACCO FORMER USER [facility] Aug 15, 2022 09:00 AM VA-TOBACCO QUIT 15 YRS OR MORE [facility] Aug 21, 2021 01:00 PM VA-TOBACCO FORMER USER [facility] Aug 21, 2021 01:00 PM VA-TOBACCO QUIT 15 YRS OR MORE [facility] Jul 09, 2018 08:58 AM VA-TOBACCO FORMER USER [facility] Jul 09, 2018 08:58 AM VA-TOBACCO QUIT 15 YRS OR MORE [facility] Jul 18, 2017 09:58 AM FORMER TOBACCO USER 7Y OR GREATE R [facility] Aug 14, 2016 10:59 AM FORMER TOBACCO USER 7Y OR GREATE R [facility] Jun 29, 2015 02:03 PM FORMER TOBACCO USER 7Y OR GREATE R [facility] Jan 06, 2014 03:04 PM FORMER TOBACCO USER 7Y OR GREATE R [facility] Jan 04, 2012 08:36 AM FORMER TOBACCO USER 7Y OR GREATE R [facility] Radiology Reports: +/- 30 days [...] the Encounter. The data comes from all [place] treatment facilities. Date/Time Radiology Report Provider Source May 20, 2024 09:[address] BODY W/O CONTRAST (P): JUAN THOMPSON [id number] -1945 M Exm Date: MAY 20, 2024@09:14 Req Phys: LYUBOV YEUNG Pat Loc: [facility] APACT L RES 03 WH 4F (Req' Img Loc: NUC MED Service: [place] [address] (Case [id number] COMPLETE) SKULL-THIGH PET IMAGE W/CT (NM Detailed) CPT:19613 Reason for Study: eval for malignancy (Case [...] pager listed below: User placing orders pager: [phone] LAST CREATININE 1.0 (04/22/24) Report Status: Verified Date Reported: MAY 20, 2024 Date Verified: MAY 20, 2024 Health Unit Coordinator E-Sig:/ES/RUFUS GROVES MD, FACR, CCD Report: PET/CT [...] Staff: RUFUS GROVES MD, FACR, STAFF RADIOLOGIST (Health Unit Coordinator) /BSF RUFUS GROVES [facility] Apr 20, 2024 08:[address] (CAP) CHEST/ABD/PELVIS (P): JUAN THOMPSON [id number] -1945 M Exm Date: APR 20, 2024@08:07 Req Phys: RACHEL WATSON Pat Loc: [facility] APACT L RES 03 WH 4F (Req' Img Loc: CT IMAGING Service: [place] [address] (Case [id number] COMPLETE) CT (CAP) CHEST W CONTRAST (CT Detailed) CPT:75255 Contrast Media : Non-ionic Iodinated Reason for Study: 78M with weight loss & lymphadenopathy, CT for malignancy eval (Case 148 COMPLETE) CT (CAP) ABDOMEN/PELVIS W CONTRAS(CT Detailed) CPT:43134 Contrast Media : Non-ionic Iodinated Clinical History: [...] any questions or notifications of critical findings: [phone] If ordering provider is a trainee, enter [...] PLASMA .CREAT EGFR(CKD-E 63 Ref: >=60 Allergies: ([place]ris only) SULFAMETHOXAZOLE (Feb 07, 2022) EMPAGLIFLOZIN (Jun 06, 2022) Report Status: Verified Date Reported: APR 20, 2024 Date Verified: APR 20, 2024 Health Unit Coordinator E-Sig:/ES/JONATAN MILLER MD Report: CT CHEST, ABDOMEN [...] Primary Interpreting Staff: JONATAN MILLER MD, RADIOLOGIST (Health Unit Coordinator) /JONATAN GOMEZ-FARHAN [facility] Pathology Reports: +/- 30 days [...] the Encounter. The data comes from all [place] treatment facilities. Date/Time Pathology Report Provider Source May 14, 2024 10:47 AM LR SURGICAL PATHOLOGY REPORT: LOCAL TITLE: LR SURGICAL PATHOLOGY REPORT STANDARD TITLE: PATHOLOGY REPORT DATE OF NOTE: MAY 14, 2024@10:47:04 ENTRY DATE: MAY 14, 2024@10:47:04 AUTHOR: VIPUL DASILVA COSIGNER: URGENCY: STATUS: COMPLETED $APHDR Reporting Lab: [facility] [CLIA# [id number]] [place] [address] - - - - - - - [...] Performing Laboratory: Surgical Pathology Report Performed By: [facility] [CLIA# [id number]] [place] [address] $FTR - - - - - - - - - - - - - - - - - - - - - - - - - - - - - - - - - - - - - - - - (End of report) VIPUL torreso Date May 14, 2024 - - - - - - - - - - - - - - - - - - - - - - - - - - - - - - - - - - - - - - - - JUAN THOMPSON STANDARD FORM 515 ID:[id number] SEX:M :1945 AGE: 78 LOC:[id number] PCP: Sonia Phillips /pablo/ VIPUL DASILVA MD STAFF PATHOLOGIST Signed: 05/14/2024 10:47 VIPUL DASILVA [facility] Encounter Notes: All associated encounter notes This section contains the clinical notes associated to the Encounter. Date/Time Encounter Note(s) Provider Source May 01, 2024 11:13 AM NURSING OUTPATIENT NOTE: LOCAL TITLE: MEDICINE CLINIC NURSING RN NOTE STANDARD TITLE: NURSING OUTPATIENT NOTE DATE OF NOTE: MAY 01, 2024@11:13 ENTRY DATE: MAY 01, 2024@11:13:46 AUTHOR: BRITTANI HERNANDEZ COSIGNER: URGENCY: STATUS: COMPLETED TYPE OF VISIT: Telephone Case Management REASON FOR VISIT: CT results f/u ----- Copied from 04/28 note: Please contact at the following number: [phone] Other: Nathalie with [facility] would like a call back to go over results of the CT scan he had done last week. Please contact Nathalie at number above to further discuss. ----- ASSESSMENT: Called and spoke to pt's guardian, Nathalie Cline. Reviewed notes from recent neurology , ortho, and primary care visits; reviewed 04/20 CT report. All questions and concerns addressed. She will f/u with pt to ensure understanding and attendance at upcoming appts. PLAN: - Warm hand off transfer to nuclear medicine for scheduling PET scan - F/u 05/13 with oncology and PCP. - Alerting PCP for f/u results letter for 04/20 CT and f/u recs, any other message for pt's guardian; please alert PACT RN and will fax to her for update. - Fax CT results, appt list to Nathalie: - Update pt's primary contact number to Nathalie'halima for improved response to scheduling efforts. - Alerting PACT ANASTACIO to update primary phone number to . /pablo/ Brittani Hernandez RN Registered Nurse Signed: 05/01/2024 11:32 Receipt Acknowledged By: 05/07/2024 07:46 /es/ LYUBOV YEUNG MD RESIDENT PHYSICIAN 05/04/2024 12:29 /pablo/ BRITTANI TERESA MSA [facility]
--- OUTSIDE RECORDS SUMMARY | 2024-07-06 16:19 | XMS_ITS | Encounter Summary ---
Author Name [facility] [place] Organization [facility] [place] [place] Address [address] [place] [address] Care Team Providers Care Bed Bug Exterminator Name Role Phone SONIA PHILLIPS Primary Care [...] PART A Sep 26, 2012 PART A [id number] JUAN THOMPSON JR PATIENT MEDICARE (WNR) MEDICARE (M) PART B Sep 26, 2012 PART B [id number] [phone] JUAN THOMPSON JR PATIENT Selected Encounter This section includes the information on record at [place] for the Encounter. Date/Time Encounter Type Encounter Description Reason Pro vider Source May 08, 2024 04:12 PM Outpatient Encounter TELEPHONE/SURGERY IHE Encounter Template Text not used by [facility] Plan of Treatment: Future Appointments (+ 6 months) and Future Tests (+/- 45 days) The Plan of Treatment section includes future care activities for the [facility] [place] [facility] This section includes future appointments [...] 12:00 PM AMBULATORY - NONE [place] [facility] May 13, 2024 01:00 PM AMBULATORY - MEDICINE [facility] [facility] [facility] May 20, 2024 09:45 AM AMBULATORY - NONE [facility] [facility] May 26, 2024 09:15 AM AMBULATORY - MEDICINE [facility] Jun 03, 2024 10:00 AM AMBULATORY - MEDICINE [facility] Jun 04, 2024 09:30 AM AMBULATORY - PS[place]CHIATRY [place] [facility] Jun 05, 2024 01:30 PM AMBULATORY - MEDICINE [facility] Jun 12, 2024 07:30 AM AMBULATORY - NONE [facility] [facility] Jun 12, 2024 08:30 AM AMBULATORY - MEDICINE [facility] Jun 23, 2024 10:15 AM AMBULATORY - MEDICINE [facility] [facility] Jul 06, 2024 08:30 AM AMBULATORY - NONE [facility] Jul 16, 2024 07:30 AM AMBULATORY - MEDICINE [facility] Jul 16, 2024 08:30 AM AMBULATORY - MEDICINE [facility] Jul 16, 2024 09:00 AM AMBULATORY - PS[place]CHIATRY [place] [facility] Jul 16, 2024 09:30 AM AMBULATORY - PS[place]CHIATRY [place] [facility] [facility] Oct 07, 2024 09:00 AM AMBULATORY - MEDICINE [facility] [facility] [facility] Oct 19, 2024 09:30 AM AMBULATORY - NEUROLOGY [place] [facility] [facility] Active, Pending, and Scheduled Orders This section includes a listing of several types of active, pending, and scheduled orders, including clinic medications orders, diagnostic test orders, procedure orders and consult orders; where the start date of the order is 45 days before the date of the Encounter or 45 days after the date of theEncounter. The data comes from all [facility] treatment facilities. Test Date/Time Test Type Test Details Facility Name Jun 19, 2024 04:32 PM Consult Order COMMUNITY CARE-NUCLEAR MEDICINE Cons Configuration Management Manager's Choice [facility] Lab Results: +/- 30 days of the encounter This section includes the Chemistry and Hematology Lab Results on record with [place] for the patient. Radiology Reports and Pathology Reports are provided separately, in subsequent sections. Lab Results This section contains the Chemistry/Hematology Results that were resulted 30 days before or 30 daysafter the date of the Encounter. Date/Time Source Result Type Result - Unit Interpretation Reference Range Comment Jun 03, 2024 11:17 AM [facility] URINALYSIS Specimen Type: URINE No comment entered. Ordering Provider: LYUBOV YEUNG Report Released Date/Time: Jun 03, 2024 10:39 AM Reporting Lab: [facility] [address] Performing Lab: [facility] [address] URINE COLOR YELLOW SPECIFIC GRAVITY 1.018 1.003-1.03 [...] 75 NEGATIVE May 20, 2024 09:39 AM [facility] FINGERSTICK GLUCOSE Specimen Type: BLOOD Comment: Save Result Ordering Provider: TANK PHILLIPS Report Released Date/Time: May 20, 2024 03:03 PM Reporting Lab: [facility] [address] Performing Lab: [facility] [address] FINGERSTICK GLUCOSE 148 mg/dL H 70-100 May 13, 2024 11:44 AM [facility] KAPPA/LAMBDA LC FREE,RATIO Specimen Type: SERUM Comment: [...] therapy of these disorders. Test Performed by [employer] [facility], [id number] [place] [address] Devante Meyer M.D., Ph.D., Director of Laboratories , [place] [id number] Ordering Provider: RENUKA JOHNSON Report Released Date/Time: Apr 24, 2024 04:08 PM Reporting Lab: [facility] [address] Performing Lab: [address] .KAPPA LT CHAIN,FREE 27.3 mg/L H 3.3-19.4 .LAMBDA LC,FREE 15.8 mg/L 5.7-26.3 .KAPPA/LAMBDA, FREE 1.73 H 0.26-1.65 May 13, 2024 11:44 AM [facility] LD,TOTAL Specimen Type: PLASMA No comment entered. Ordering Provider: RENUKA JOHNSON Report Released Date/Time: Apr 24, 2024 04:08 PM Reporting Lab: [facility] [address] Performing Lab: [facility] [address] LD,TOTAL 141 U/L 125-220 May 13, 2024 11:44 AM [facility] B 12 Specimen Type: SERUM No comment entered. Ordering Provider: RENUKA JOHNSON Report Released Date/Time: Apr 24, 2024 04:08 PM Reporting Lab: [facility] [address] Performing Lab: [facility] [address] B 12 722 pg/mL 213-816 May 13, 2024 11:44 AM [facility] URIC ACID Specimen Type: PLASMA No comment entered. Ordering Provider: RENUKA JOHNSON Report Released Date/Time: Apr 24, 2024 04:08 PM Reporting Lab: [facility] [address] Performing Lab: [facility] [address] URIC ACID 3.1 mg/dL L 3.7-7.7 May 13, 2024 11:44 AM [facility] FOLATE Specimen Type: SERUM No comment entered. Ordering Provider: RENUKA JOHNSON Report Released Date/Time: Apr 24, 2024 04:08 PM Reporting Lab: [facility] [address] Performing Lab: [facility] [address] FOLATE 14.6 ng/mL >7.0 May 13, 2024 11:44 AM [facility] IRON GROUP Specimen Type: SERUM No comment entered. Ordering Provider: RENUKA JOHNSON Report Released Date/Time: Apr 24, 2024 04:08 PM Reporting Lab: [facility] [address] Performing Lab: [facility] [address] IRON 101 ug/dL 65-175 TIBC,CALCULATE D 313 ug/dL 250-425 FERRITIN pending IRON SATURATION 32 20-50 TRANSFERRIN 250 mg/dL 163-382 May 13, 2024 11:44 AM [facility] PHOSPHORUS Specimen Type: PLASMA No comment entered. Ordering Provider: RENUKA JOHNSON Report Released Date/Time: Apr 24, 2024 04:08 PM Reporting Lab: [facility] [address] Performing Lab: [facility] [address] PHOSPHORUS 3.3 mg/dL 2.3-4.3 May 13, 2024 11:44 AM [facility] BETA 2-MICROGLOBULIN Specimen Type: SERUM No comment entered. Ordering Provider: RENUKA JOHNSON Report Released Date/Time: Apr 24, 2024 04:08 PM Reporting Lab: [facility] [address] Performing Lab: [facility] [address] BETA 2-MICROGLOBULI N 3.36 mg/L H 0.97-2.64 May 13, 2024 11:44 AM [facility] PSA Specimen Type: SERUM No comment entered. Ordering Provider: ABBY MEANS Report Released Date/Time: May 12, 2024 08:28 PM Reporting Lab: [facility] [address] Performing Lab: [facility] [address] PSA 0.49 ng/mL <4.00 May 13, 2024 11:44 AM [facility] TESTOSTERONE Specimen Type: SERUM No comment entered. Ordering Provider: ABBY MEANS Report Released Date/Time: May 12, 2024 08:30 PM Reporting Lab: [facility] [address] Performing Lab: [facility] [address] TESTOSTERONE 534 ng/dL 221-870 May 13, 2024 11:44 AM [facility] CBC & DIFF Specimen Type: BLOOD Comment: Automated Differential Performed Ordering Provider: RENUKA JOHNSON Report Released Date/Time: Apr 24, 2024 04:08 PM Reporting Lab: [facility] [address] Performing Lab: [facility] [address] WBC 8.3 4.0-11.0 RBC 4.04 L 4.60-6.20 [...] 0.0 0.0-0.1 May 13, 2024 11:44 AM [facility] TOTAL IMMUNOGLOB (IGA,IGG,IGM) Specimen Type: PLASMA No comment entered. Ordering Provider: RENUKA JOHNSON Report Released Date/Time: Apr 24, 2024 04:08 PM Reporting Lab: [facility] [address] Performing Lab: [facility] [address] IGM 78.8 mg/dL 22.0-293.0 IGG 714.3 mg/dL 540.0-18 22 .0 IGA 123.8 mg/dL 63.0-645.0 May 13, 2024 11:44 AM [facility] COMPREHENSIVE METABOLIC PANEL+MG Specimen Type: PLASMA No comment entered. Ordering Provider: RENUKA JOHNSON Report Released Date/Time: Apr 24, 2024 04:08 PM Reporting Lab: [facility] [address] Performing Lab: [facility] [address] CREATININE 1.0 mg/dL 0.7-1.2 UREA NITROGEN 26 [...] 78 >60 May 13, 2024 11:44 AM [facility] PERIPHERAL SMEAR PATHOLOGIST REVIEW Specimen Type: BLOOD No comment entered. Ordering Provider: RENUKA JOHNSON Report Released Date/Time: May 13, 2024 01:51 PM Reporting Lab: [facility] [address] Performing Lab: [facility] [address] PERIPHERAL SMEAR PATHOLOGIST REVIEW SLIDES MADE Apr 22, 2024 10:41 AM [facility] ELP/IMMFIX,SERUM PANEL Specimen Type: SERUM Comment: Decreased gamma fraction may be seen in certain lymphoproliferat jeff disorders. Recommend submitting a 24 hr urine for ELP and immunofixation tests. Ordering Provider: LYUBOV YEUNG Report Released Date/Time: Apr 22, 2024 10:20 AM Reporting Lab: [facility] [address] Performing Lab: [facility] [address] PROTEIN,TOTAL 6.0 g/dL L 6.4-8.3 .ALBUMIN FRACTION 3.63 g/dL L 3.66-4.78 .ALPHA 1 FRACTION 0.37 g/dL 0.14-0.38 .ALPHA 2 FRACTION 0.81 g/dL 0.50-0.90 .BETA 1 FRACTION 0.34 g/dL 0.33-0.55 .BETA 2 FRACTION 0.28 g/dL 0.20-0.52 .GAMMA FRACTION 0.57 g/dL L 0.58-1.72 .TOTAL PROTEIN 6.0 g/dL 6.0-8.3 .INTERPRETATIO N NO MONOCLONALS DETECTED Apr 22, 2024 10:32 AM [facility] ELP/IMMFIX,URINE RANDOM PANEL Specimen Type: URINE No comment entered. Ordering Provider: LYUBOV YEUNG Report Released Date/Time: Apr 22, 2024 10:20 AM Reporting Lab: [facility] [address] Performing Lab: [facility] [address] PROTEIN,T. RANDOM UR <6.8 mg/dL <14.0 .INTERPRETATIO N,UR NO MONOCLONALS DETECTED Apr 22, 2024 08:15 AM [facility] CBC Specimen Type: BLOOD No comment entered. Ordering Provider: LYUBOV YEUNG Report Released Date/Time: Oct 09, 2023 11:10 AM Reporting Lab: [facility] [address] Performing Lab: [facility] [address] WBC 9.8 4.0-11.0 RBC 4.45 L 4.60-6.20 HGB 13.0 g/dL L 13.5-17.9 HCT 40.2 L 41-54 MCV 90.3 fL 80-100 MCH 29.2 pg 27-33 MCHC 32.3 g/dL 32.0-37.5 PLT 328 150-400 MPV 9.7 fL 9.1-13.0 RDW 14.3 11.5-14.5 Apr 22, 2024 08:15 AM [facility] BASIC METABOLIC PANEL+MG Specimen Type: PLASMA No comment entered. Ordering Provider: LYUBOV YEUNG Report Released Date/Time: Oct 09, 2023 11:10 AM Reporting Lab: [facility] [address] Performing Lab: [facility] [address] CREATININE 1.0 mg/dL 0.7-1.2 UREA NITROGEN 18 mg/dL 8-26 GLUCOSE 217 mg/dL H 70-100 SODIUM 144 mmol/L 136-145 POTASSIUM 4.3 mmol/L 3.5-5.1 CHLORIDE 106 mmol/L 98-107 CO2 31 mmol/L H 22-29 CALCIUM 9.6 mg/dL 8.4-10.2 MAGNESIUM 1.4 mg/dL L 1.6-2.6 ANION GAP 7 mmol/L 5-15 .CREAT EGFR(CKD-EPI) 78 >60 Apr 20, 2024 08:28 AM [facility] POC CREATININE Specimen Type: BLOOD No comment entered. Ordering Provider: TANK PHILLIPS Report Released Date/Time: Apr 20, 2024 08:30 AM Reporting Lab: [facility] [address] Performing Lab: [facility] [address] POC CREATININE 1.1 mg/dL 0.6-1.3 Social History: Smoking Status (Most current) and Tobacco Use (All prior to encounter date) This section includes the most current, and the historical, smoking and tobacco- related health factors from the [place] facility where the Encounter took place. Current Smoking Status This section includes the most current smoking, or tobacco-related health factor, from the [place] facility where the Encounter took place. Date/Time Current Smoking Status Comment Aj woods Aug 21, 2023 10:30 AM VA-TOBACCO FORMER USER [facility] Tobacco Use History This section includes a history of the smoking, or tobacco-related health factors, that were collected on or before the date of the Encounter. The data comes from the [place] facility where the Encounter took place. Date/Time Smoking Status/Tobacco Use Comment Guanakito ortez Aug 21, 2023 10:30 AM VA-TOBACCO QUIT 15 YRS OR MORE [facility] Aug 15, 2022 09:00 AM VA-TOBACCO FORMER USER [facility] Aug 15, 2022 09:00 AM VA-TOBACCO QUIT 15 YRS OR MORE [facility] Aug 21, 2021 01:00 PM VA-TOBACCO FORMER USER [facility] Aug 21, 2021 01:00 PM VA-TOBACCO QUIT 15 YRS OR MORE [facility] Jul 09, 2018 08:58 AM VA-TOBACCO FORMER USER [facility] Jul 09, 2018 08:58 AM VA-TOBACCO QUIT 15 YRS OR MORE [facility] Jul 18, 2017 09:58 AM FORMER TOBACCO USER 7Y OR GREATE R [facility] Aug 14, 2016 10:59 AM FORMER TOBACCO USER 7Y OR GREATE R [facility] Jun 29, 2015 02:03 PM FORMER TOBACCO USER 7Y OR GREATE R [facility] Jan 06, 2014 03:04 PM FORMER TOBACCO USER 7Y OR GREATE R [facility] Jan 04, 2012 08:36 AM FORMER TOBACCO USER 7Y OR GREATE R [facility] Radiology Reports: +/- 30 days of the [...] the Encounter. The data comes from all [place] treatment facilities. Date/Time Radiology Report Provider Source May 20, 2024 09:[address] BODY W/O CONTRAST (P): JUAN THOMPSON [id number] -1945 M Exm Date: MAY 20, 2024@09:14 Req Phys: LYUBOV YEUNG Pat Loc: [facility] APACT L RES 03 WH 4F (Req' Img Loc: NUC MED Service: [place] [address] (Case [id number] COMPLETE) SKULL-THIGH PET IMAGE W/CT ([place] Detailed) CPT:97295 Reason for Study: eval for malignancy (Case [...] pager listed below: User placing orders pager: [phone] LAST CREATININE 1.0 (04/22/24) Report Status: Verified Date Reported: MAY 20, 2024 Date Verified: MAY 20, 2024 [employer]er E-Sig:/ES/RUFUS GROVES MD, FACR, CCD Report: PET/CT [...] Staff: RUFUS GROVES MD, FACR, STAFF RADIOLOGIST (Lock[employer]ch Front Edge Tape Sewer) /BSF RUFUS GROVES [facility] Apr 20, 2024 08:[address] (CAP) CHEST/ABD/PELVIS (P): JUAN THOMPSON [id number] -1945 M Exm Date: APR 20, 2024@08:07 Req Phys: JACDEERACHEL Pat Loc: [facility] APACT L RES 03 WH 4F (Req' Img Loc: CT IMAGING Service: [place] [address] (Case [id number] COMPLETE) CT (CAP) CHEST W CONTRAST (CT Detailed) CPT:29559 Contrast Media : Non-ionic Iodinated Reason for Study: 78M with weight loss & lymphadenopathy, CT for malignancy eval (Case 148 COMPLETE) CT (CAP) ABDOMEN/PELVIS W CONTRAS(CT Detailed) CPT:65825 Contrast Media : Non-ionic Iodinated Clinical History: [...] any questions or notifications of critical findings: [phone] If ordering provider is a trainee, enter the name and contact information of the responsible staff physician. Aimsh Figueroa LAST 3: Collection DT Specimen Test [...] PLASMA .CREAT EGFR(CKD-E 63 Ref: >=60 Allergies: ([place] only) SULFAMETHOXAZOLE (Feb 07, 2022) EMPAGLIFLOZIN (Jun 06, 2022) Report Status: Verified Date Reported: APR 20, 2024 Date Verified: APR 20, 2024 Lockstitch Front Edge Tape Sewer E-Sig:/ES/JONATAN MILLER MD Report: CT CHEST, ABDOMEN [...] Primary Interpreting Staff: JONATAN MILLER MD, RADIOLOGIST (Lockstitch Front Edge Tape Sewer) /JONATAN GOMEZ [facility] Pathology Reports: +/- 30 days of the [...] the Encounter. The data comes from all [place] treatment facilities. Date/Time Pathology Report Provider Source May 14, 2024 10:47 AM [facility] SURGICAL PATHOLOGY REPORT: LOCAL TITLE: LR SURGICAL PATHOLOGY REPORT STANDARD TITLE: PATHOLOGY REPORT DATE OF NOTE: MAY 14, 2024@10:47:04 ENTRY DATE: MAY 14, 2024@10:47:04 AUTHOR: VIPUL DASILVA COSIGNER: URGENCY: STATUS: COMPLETED $APHDR Reporting Lab: [facility] [CLIA# [id number]] [place] [address] - - - - - - - [...] Performing Laboratory: Surgical Pathology Report Performed By: [facility] [CLIA# [id number]] [place] [address] $FTR - - - - - - [...] - JUAN THOMPSON JR STANDARD FORM 515 ID:[id number] SEX:M :1945 AGE: 78 LOC:[id number] PCP: Sonia Phillips /apblo/ VIPUL DASILVA MD STAFF PATHOLOGIST Signed: 05/14/2024 10:47 VIPUL DASILVA [facility] Encounter Notes: All associated encounter notes This section contains the clinical notes associated to the Encounter. Date/Time Encounter Note(s) Provider Source May 08, 2024 04:12 PM REPORT OF CONTACT: LOCAL TITLE: APPOINTMENT SCHEDULING NOTE STANDARD TITLE: REPORT OF CONTACT DATE OF NOTE: MAY 08, 2024@16:12 ENTRY DATE: MAY 08, 2024@16:12:44 AUTHOR: ALMA FREDERICK COSIGNER: URGENCY: STATUS: COMPLETED Attempted to schedule [facility]uling ([facility]) request; unable to accommodate times indicated Contact attempt made to [place] 1st attempt Telephone 2nd attempt Letter - Sent letter by regular [place] mail to address on file: JUAN THOMPSON JR [address] [address] If calls back, schedule appt for: Return to [facility] PHONE on or around ( Jul 29, 2024 ) for a total of 1 appointment(s) Phone follow up to discuss cancer work up, determine surgical timing of TKA /es/ ALMA FREDERICK ADVANCED MSA Signed: 05/08/2024 16:15 ALMA FREDERICK [facility]
--- OUTSIDE RECORDS SUMMARY | 2024-07-06 16:19 | XMS_ITS | Encounter Summary ---
Author Name [facility] [facility] [place] [facility] [place] [facility] [place] Address [address] [place] [address] Care Team Providers Care Machine Bender Name Role Phone SONIA PHILLIPS Primary Care [...] Member ID Insurance Provider's Telephone Number Policy Maldoando's Name Patient's Relationship to Policy Maldonado MEDICARE (WNR) MEDICARE (M) PART A Sep 26, 2012 PART A [id number] [facility] [phone] GIO THOMPSON JR PATIENT MEDICARE (WNR) MEDICARE (M) PART B Sep 26, 2012 PART B [id number] GIO THOMPSON JR PATIENT Selected Encounter This section includes the information on record at [place] for the Encounter. Date/Time Encounter Type Encounter Description Reason Provider Source Apr 29, 2024 10:30 AM OFFICE O/P EST MOD 30 MIN ORTHO/JOINT SURG ICD-10-CM M17.0 Bilateral primary osteoarthritis of knee LAVON FIGUEROA IHE Encounter Template Text not used by [place] Assessments - Encounter Diagnoses This section includes the primary and secondary diagnoses documented for the Encounter. Date/Time Primary/Secondary Diagnosis Diagnosis Name Provider Source Apr 29, 2024 02:33 PM PRIMARY Bilateral primary osteoarthritis of knee ZULEMA CARVALHO [facility] Apr 29, 2024 02:33 PM SECONDARY Unilateral primary osteoarthritis, right hip ZULEMA CARVALHO [facility] Plan of Treatment: Future Appointments (+ 6 months) and Future Tests (+/- 45 days) The Plan of Treatment section includes future care activities for the patient from all [place] [facility]. This section includes future appointments and future orders which are active, pending or scheduled. Future Appointments This section includes appointments that were scheduled to occur 6 months from the date of the Encounter, up to a maximum of 20 appointments. The data comes from all [place] treatment facilities. Appointment Date/Time Appointment Type Appointme nt Facility Name May 13, 2024 12:00 PM [facility] May 13, 2024 01:00 PM [facility] [place]IC[place] [facility] May 20, 2024 09:45 AM [facility] May 26, 2024 09:15 AM [facility] [place]IC[place] [facility] Jun 03, 2024 10:00 AM [facility] Jun 04, 2024 09:30 AM AMBUL[place]ORY [place] [facility] Jun 05, 2024 01:30 PM [facility]ORY - [place]IC[place] [facility] Jun 12, 2024 07:30 AM [facility] Jun 12, 2024 08:30 AM [facility] - [place]IC[place] [facility] Jun 23, 2024 10:15 AM [facility]BUL[facility]ORY - [place]IC[place] [facility] Jul 06, 2024 08:30 AM [facility] Jul 16, 2024 07:30 AM [facility] [place]IC[place] [facility] Jul 16, 2024 08:30 AM [facility] Jul 16, 2024 09:00 AM [place] [facility] Jul 16, 2024 09:30 AM [place] [facility] Oct 07, 2024 09:00 AM AMBULATORY - MEDICINE [facility] Oct 19, 2024 09:30 AM AMBULATORY - NEUROLOGY [facility] Active, Pending, and Scheduled Orders This section includes a listing of several types of active, pending, and scheduled orders, including clinic medications orders, diagnostic test orders, procedure orders and consult orders; where the start date of the order is 45 days before the date of the Encounter or 45 days after the date of theEncounter. The data comes from all [place] treatment facilities. Test Date/Time Test Type Test Details Facility Name Mar 18, 2024 05:05 PM Consult Order CARDIAC EC HO OUTPT-ALL SITES Cons Per Diem Rn's Choice [facility] Lab Results: +/- 30 days of the encounter This section includes the Chemistry and Hematology Lab Results on record with [place] for the patient. Radiology Reports and Pathology Reports are provided separately, in subsequent sections. Lab Results This section contains the Chemistry/Hematology Results that were resulted 30 days before or 30 daysafter the date of the Encounter. Date/Time Source Result Type Result - Unit Interpretation Reference Range Comment May 20, 2024 09:39 AM [facility] FINGERSTICK GLUCOSE Specimen Type: BLOOD Comment: Save Result Ordering Provider: TANK PHILLIPS Report Released Date/Time: May 20, 2024 03:03 PM Reporting Lab: [facility] [address] Performing Lab: [facility] [address] FINGERSTICK GLUCOSE 148 mg/dL H 70-100 May 13, 2024 11:44 AM [facility] KAPPA/LAMBDA LC FREE,RATIO Specimen Type: SERUM Comment: [...] therapy of these disorders. Test Performed by [facility] [employer] [facility], [address] [place], [place] Devante Meyer M.D., Ph.D., Director of Laboratories , [facility] [id number] Ordering Provider: RENUKA JOHNSON Report Released Date/Time: Apr 24, 2024 04:08 PM Reporting Lab: [facility] [address] Performing Lab: [facility] [address] [facility] .KAPPA LT CHAIN,FREE 27.3 mg/L H 3.3-19.4 .LAMBDA LC,FREE 15.8 mg/L 5.7-26.3 .KAPPA/LAMBDA, FREE 1.73 H 0.26-1.65 May 13, 2024 11:44 AM [facility] LD,TOTAL Specimen Type: PLASMA No comment entered. Ordering Provider: RENUKA JOHNSON Report Released Date/Time: Apr 24, 2024 04:08 PM Reporting Lab: [facility] [address] Performing Lab: [facility] [address] LD,TOTAL 141 U/L 125-220 May 13, 2024 11:44 AM [facility] URIC ACID Specimen Type: PLASMA No comment entered. Ordering Provider: RENUKA JOHNSON Report Released Date/Time: Apr 24, 2024 04:08 PM Reporting Lab: [facility] [address] Performing Lab: [facility] [address] URIC ACID 3.1 mg/dL L 3.7-7.7 May 13, 2024 11:44 AM [facility] B 12 Specimen Type: SERUM No comment entered. Ordering Provider: RENUKA JOHNSON Report Released Date/Time: Apr 24, 2024 04:08 PM Reporting Lab: [facility] [address] Performing Lab: [facility] [address] B 12 722 pg/mL 213-816 May 13, 2024 11:44 AM [facility] FOLATE Specimen Type: SERUM No comment entered. Ordering Provider: RENUKA JOHNSON Report Released Date/Time: Apr 24, 2024 04:08 PM Reporting Lab: [facility] [address] Performing Lab: [facility] [address] FOLATE 14.6 ng/mL >7.0 May 13, 2024 11:44 AM [facility] PHOSPHORUS Specimen Type: PLASMA No comment entered. Ordering Provider: RENUKA JOHNSON Report Released Date/Time: Apr 24, 2024 04:08 PM Reporting Lab: [facility] [address] Performing Lab: [facility] [address] PHOSPHORUS 3.3 mg/dL 2.3-4.3 May 13, 2024 11:44 AM [facility] IRON GROUP Specimen Type: SERUM No comment entered. Ordering Provider: RENUKA JOHNSON Report Released Date/Time: Apr 24, 2024 04:08 PM Reporting Lab: [facility] [address] Performing Lab: [facility] [address] IRON 101 ug/dL 65-175 TIBC,CALCULATE D 313 ug/dL 250-425 FERRITIN pending IRON SATURATION 32 20-50 TRANSFERRIN 250 mg/dL 163-382 May 13, 2024 11:44 AM [facility] BETA 2-MICROGLOBULIN Specimen Type: SERUM No comment entered. Ordering Provider: RENUKA JOHNSON Report Released Date/Time: Apr 24, 2024 04:08 PM Reporting Lab: [facility] [address] Performing Lab: [facility] [address] BETA 2-MICROGLOBULI N 3.36 mg/L H 0.97-2.64 May 13, 2024 11:44 AM [facility] PSA Specimen Type: SERUM No comment entered. Ordering Provider: ABBY MEANS Report Released Date/Time: May 12, 2024 08:28 PM Reporting Lab: [facility] [address] Performing Lab: [facility] [address] PSA 0.49 ng/mL <4.00 May 13, 2024 11:44 AM [facility] TOTAL IMMUNOGLOB (IGA,IGG,IGM) Specimen Type: PLASMA No comment entered. Ordering Provider: RENUKA JOHNSON Report Released Date/Time: Apr 24, 2024 04:08 PM Reporting Lab: [facility] [address] Performing Lab: [facility] [address] IGM 78.8 mg/dL 22.0-293.0 IGG 714.3 mg/dL 540.0-18 22 .0 IGA 123.8 mg/dL 63.0-645.0 May 13, 2024 11:44 AM [facility] TESTOSTERONE Specimen Type: SERUM No comment entered. Ordering Provider: ABBY MEANS Report Released Date/Time: May 12, 2024 08:30 PM Reporting Lab: [facility] [address] Performing Lab: [facility] [address] TESTOSTERONE 534 ng/dL 221-870 May 13, 2024 11:44 AM [facility] CBC & DIFF Specimen Type: BLOOD Comment: Automated Differential Performed Ordering Provider: RENUKA JOHNSON Report Released Date/Time: Apr 24, 2024 04:08 PM Reporting Lab: [facility] [address] Performing Lab: [facility] [address] WBC 8.3 4.0-11.0 RBC 4.04 L 4.60-6.20 [...] 0.0 0.0-0.1 May 13, 2024 11:44 AM [facility] COMPREHENSIVE METABOLIC PANEL+MG Specimen Type: PLASMA No comment entered. Ordering Provider: RENUKA JOHNSON Report Released Date/Time: Apr 24, 2024 04:08 PM Reporting Lab: [facility] [address] Performing Lab: [facility] [address] CREATININE 1.0 mg/dL 0.7-1.2 UREA NITROGEN 26 [...] 78 >60 May 13, 2024 11:44 AM [facility] PERIPHERAL SMEAR PATHOLOGIST REVIEW Specimen Type: BLOOD No comment entered. Ordering Provider: RENUKA JOHNSON Report Released Date/Time: May 13, 2024 01:51 PM Reporting Lab: [facility] [address] Performing Lab: [facility] [address] PERIPHERAL SMEAR PATHOLOGIST REVIEW SLIDES MADE Apr 22, 2024 10:41 AM [facility] ELP/IMMFIX,SERUM PANEL Specimen Type: SERUM Comment: Decreased gamma fraction may be seen in certain lymphoproliferat jeff disorders. Recommend submitting a 24 hr urine for ELP and immunofixation tests. Ordering Provider: LYUBOV YEUNG Report Released Date/Time: Apr 22, 2024 10:20 AM Reporting Lab: [facility] [address] Performing Lab: [facility] [address] PROTEIN,TOTAL 6.0 g/dL L 6.4-8.3 .ALBUMIN FRACTION 3.63 g/dL L 3.66-4.78 .ALPHA 1 FRACTION 0.37 g/dL 0.14-0.38 .ALPHA 2 FRACTION 0.81 g/dL 0.50-0.90 .BETA 1 FRACTION 0.34 g/dL 0.33-0.55 .BETA 2 FRACTION 0.28 g/dL 0.20-0.52 .GAMMA FRACTION 0.57 g/dL L 0.58-1.72 .TOTAL PROTEIN 6.0 g/dL 6.0-8.3 .INTERPRETATIO N NO MONOCLONALS DETECTED Apr 22, 2024 10:32 AM [facility] ELP/IMMFIX,URINE RANDOM PANEL Specimen Type: URINE No comment entered. Ordering Provider: LYUBOV YEUNG Report Released Date/Time: Apr 22, 2024 10:20 AM Reporting Lab: [facility] [address] Performing Lab: [facility] [address] PROTEIN,T. RANDOM UR <6.8 mg/dL <14.0 .INTERPRETATIO N,UR NO MONOCLONALS DETECTED Apr 22, 2024 08:15 AM [facility] CBC Specimen Type: BLOOD No comment entered. Ordering Provider: LYUBOV YEUNG Report Released Date/Time: Oct 09, 2023 11:10 AM Reporting Lab: [facility] [address] Performing Lab: [facility] [address] WBC 9.8 4.0-11.0 RBC 4.45 L 4.60-6.20 HGB 13.0 g/dL L 13.5-17.9 HCT 40.2 L 41-54 MCV 90.3 fL 80-100 MCH 29.2 pg 27-33 MCHC 32.3 g/dL 32.0-37.5 PLT 328 150-400 MPV 9.7 fL 9.1-13.0 RDW 14.3 11.5-14.5 Apr 22, 2024 08:15 AM [facility] BASIC METABOLIC PANEL+MG Specimen Type: PLASMA No comment entered. Ordering Provider: LYUBOV YEUNG Report Released Date/Time: Oct 09, 2023 11:10 AM Reporting Lab: [facility] [address] Performing Lab: [facility] [address] CREATININE 1.0 mg/dL 0.7-1.2 UREA NITROGEN 18 mg/dL 8-26 GLUCOSE 217 mg/dL H 70-100 SODIUM 144 mmol/L 136-145 POTASSIUM 4.3 mmol/L 3.5-5.1 CHLORIDE 106 mmol/L 98-107 CO2 31 mmol/L H 22-29 CALCIUM 9.6 mg/dL 8.4-10.2 MAGNESIUM 1.4 mg/dL L 1.6-2.6 ANION GAP 7 mmol/L 5-15 .CREAT EGFR(CKD-EPI) 78 >60 Apr 20, 2024 08:28 AM [facility] POC CREATININE Specimen Type: BLOOD No comment entered. Ordering Provider: TANK PHILLIPS Report Released Date/Time: Apr 20, 2024 08:30 AM Reporting Lab: [facility] [address] Performing Lab: [facility] [address] POC CREATININE 1.1 mg/dL 0.6-1.3 Vital Signs: All taken on the encounter date This section contains inpatient and outpatient Vital Signs collected on the date of the Encounter. Date/Time Temperature Pulse Blood Pressure Respiratory Rate SP02 Pain Height Weight Body Mass Index Source Apr 29, 2024 12:02 PM 158 24 [facility] Social History: Smoking Status [...] Aj woods Aug 21, 2023 10:30 AM [place]-TOBACCO QUIT 15 YRS OR MORE [facility] Tobacco Use History This section includes a history of the smoking, or tobacco-related health factors, that were collected on or before the date of the Encounter. The data comes from the [place] facility where the Encounter took place. Date/Time Smoking Status/Tobacco Use Comment Guanakito ortez Aug 21, 2023 10:30 AM [place]-TOBACCO QUIT 15 YRS OR MORE [facility] Aug 15, 2022 09:00 AM [place]-TOBAC[place] FORMER USER [facility] Aug 15, 2022 09:00 AM [place]-TOBACCO QUIT 15 YRS OR MORE [facility] Aug 21, 2021 01:00 PM [place]-TOBACCO FORMER USER [facility] Aug 21, 2021 01:00 PM [place]-TOBACCO QUIT 15 YRS OR MORE [facility] Jul 09, 2018 08:58 AM [place]-TOBACCO FORMER USER [facility] Jul 09, 2018 08:58 AM [place]-TOBACCO QUIT 15 YRS OR MORE [facility] Jul 18, 2017 09:58 AM FORMER TOBACCO USER 7Y OR GREATE R [facility] Aug 14, 2016 10:59 AM FORMER TOBACCO USER 7Y OR GREATE R [facility] Jun 29, 2015 02:03 PM FORMER TOBACCO USER 7Y OR GREATE R [facility] Jan 06, 2014 03:04 PM FORMER TOBACCO USER 7Y OR GREATE R [facility] Jan 04, 2012 08:36 AM FORMER TOBACCO USER 7Y OR GREATE R [facility] Radiology Reports: +/- [...] the Encounter. The data comes from all [place] treatment facilities. Date/Time Radiology Report Provider Source May 20, 2024 09:[address] BODY W/O CONTRAST (P): GIO THOMPSON [id number] -1945 M Exm Date: MAY 20, 2024@09:14 Req Phys: LYUBOV YEUNG Pat Loc: [facility] APACT L RES 03 WH 4F (Req' Img Loc: NUC MED Service: [place] [address] (Case [id number] COMPLETE) SKULL-THIGH PET IMAGE W/CT (NM Detailed) CPT:83651 Reason for Study: eval for malignancy (Case [...] pager listed below: User placing orders pager: [phone] LAST CREATININE 1.0 (04/22/24) Report Status: Verified Date Reported: MAY 20, 2024 Date Verified: MAY 20, 2024 Pilot Control Operator Helper E-Sig:/ES/RUFUS GROVES MD, FACR, CCD Report: PET/CT [...] Staff: RUFUS GROVES MD, FACR, STAFF RADIOLOGIST (Pilot Control Operator Helper) /BSF RUFUS GROVES [facility] Apr 20, 2024 08:[address] (CAP) CHEST/ABD/PELVIS (P): GIO THOMPSON [id number] -1945 M Exm Date: APR 20, 2024@08:07 Req Phys: RACHEL WATSON Pat Loc: [facility] APACT L RES 03 WH 4F (Req' Img Loc: CT IMAGING Service: [place] [address] (Case 147 COMPLETE) CT (CAP) CHEST W CONTRAST (CT Detailed) CPT:67245 Contrast Media : Non-ionic Iodinated Reason for Study: 78M with weight loss & lymphadenopathy, CT for malignancy eval (Case 148 COMPLETE) CT (CAP) ABDOMEN/PELVIS W CONTRAS(CT Detailed) CPT:23638 Contrast Media : Non-ionic Iodinated Clinical History: [...] any questions or notifications of critical findings: [phone] If ordering provider is a trainee, enter [...] PLASMA .CREAT EGFR(CKD-E 63 Ref: >=60 Allergies: ([place] only) SULFAMETHOXAZOLE (Feb 07, 2022) EMPAGLIFLOZIN (Jun 06, 2022) Report Status: Verified Date Reported: APR 20, 2024 Date Verified: APR 20, 2024 Pilot Control Operator Helper E-Sig:/ES/JONATAN MILLER MD Report: CT CHEST, ABDOMEN [...] Primary Interpreting Staff: JONATAN MILLER MD, RADIOLOGIST (Pilot Control Operator Helper) /JONATAN GOMEZ [facility] Pathology Reports: +/- 30 days of the [...] the Encounter. The data comes from all [place] treatment facilities. Date/Time Pathology Report Provider Source May 14, 2024 10:47 AM LR SURGICAL PATHOLOGY REPORT: LOCAL TITLE: LR SURGICAL PATHOLOGY REPORT STANDARD TITLE: PATHOLOGY REPORT DATE OF NOTE: MAY 14, 2024@10:47:04 ENTRY DATE: MAY 14, 2024@10:47:04 AUTHOR: VIPUL DASILVA COSIGNER: URGENCY: STATUS: COMPLETED $APHDR Reporting Lab: [facility] [CLIA# [id number]] [place] [address] - - - - - - - [...] Performing Laboratory: Surgical Pathology Report Performed By: [facility] [CLIA# [id number]] [place] [address] $FTR - - - - - - [...] - - - - - - - GIO THOMPSON STANDARD FORM 515 ID:[id number] SEX:M :1945 AGE: 78 LOC:[id number] PCP: Sonia Phillips /pablo/ VIPUL DASILVA MD STAFF PATHOLOGIST Signed: 05/14/2024 10:47 VIPUL DASILVA [facility] Encounter Notes: All associated encounter notes This section contains the clinical notes associated to the Encounter. Date/Time Encounter Note(s) Provider Source Apr 29, 2024 12:09 PM ORTHOPEDIC SURGERY ATTENDING NOTE: LOCAL TITLE: ORTHOPEDIC CLINIC NOTE STANDARD TITLE: ORTHOPEDIC SURGERY ATTENDING NOTE DATE OF NOTE: APR 29, 2024@12:09 ENTRY DATE: APR 29, 2024@12:09:22 AUTHOR: ZULEMA CARVALHO COSIGNER: URGENCY: STATUS: COMPLETED Subjective: Mr. Gio Thompson is a 78-year-old male returning today for follow-up evaluation of his bilateral knee and right hip osteoarthritis. He was last seen for the above problems back in 02/07/[address] Figueroa. At that time, he was undergoing treatment for frequent falls. At present, he still has persistent bilateral knee pain, L>R, that is relatively well controlled but does limit his ability to walk more than 18 blocks every 2-4 days. He states that his right hip pain has actually improved since his last visit. He has had cortisone injections in both knees- most recent in February of 2023 with improvement in pain, albeit for a short time. He feels he is ready to discuss surgical treatment options but notes that in light of recent unexplained weightloss, he is currently undergoing workup for possible underlying malignancy. He has no other complaints. Objective: Physical Examination: General: alert, oriented x 3, not in acute distress; uses a walker for ambulation. Cardiopulmonary: RRR, respirations nonlabored and WNL Respiration: equal chest expansion, clear breath sounds; no wheezing Musculoskeletal: Focused examination of his right hip revealed: - no obvious deformities; no significant warmth, swelling or erythema - intact skin - ROM: extension 0 degrees; flexion 100 degrees, externally rotate 30 degrees, internal rotation 5 degrees. Focused examination of bilateral knees revealed - no obvious deformities bilaterally. - ROM: 5 degrees short of full extension; flexion to 110 degrees - medial and lateral joint line tenderness to palpation - no reproduceable radiating pain on hip/LE maneuvers - intact motor and sensory function - distal pulses PT/DP palpable Focused examination of the lower back: - no pain with SLR Imaging: No new imaging obtained at today's visit. Assessment/Plan: - Degenerative arthritis right hip - Degerative arthritis bilateral knees Discussed both nonoperative and operative treatment options moving forward with the patinet. His bilateral knee pain persists, L>R, with improvement in his right hip pain. We discussed that given his early work up for possible malignancy in the setting of unintentional weight loss and CT CAP with evidnence of lytic lesions in the sacrum and pelvis, we will defer any surgical intervention until he has been seen by oncology and workup has been determined. The patient agreed with the plan. All of his questions and concerns were answered to his satisfaction. Will plan for follow up in 3 months via telephone to determine steps moving forward, overall treatment plan with Oncology. The patient was seen and examined with Dr Figueroa. I spent 30 minutes with the patient to discuss the clinical findings, review the imaging studies and treatment plan. More than 50% of the time was spent counselling the patient. /pablo/ ZULEMA CARVALHO MD RESIDENT Signed: 04/29/2024 14:31 ZULEMA CARVALHO [facility]
--- OUTSIDE RECORDS SUMMARY | 2024-07-06 16:20 | XMS_ITS | Encounter Summary ---
Author Name [facility] [place] [facility] [place] [facility] [facility] [place] Address [address] [place] [address] Care Team Providers Care Electrical Repairer Name Role Phone SONIA PHILLIPS Primary Care [...] PART A Sep 26, 2012 PART A [id number] [facility] [phone] JUAN THOMPSON JR PATIENT MEDICARE (WNR) MEDICARE (M) PART B Sep 26, 2012 PART B [id number] [phone] JUAN THOMPSON JR PATIENT Selected Encounter This section includes the information on record at [place] for the Encounter. Date/Time Encounter Type Encounter Description Reason Provider Source May 26, 2024 09:15 AM OFFICE O/P EST HI 40 MIN ONCOLOGY/TUMOR ICD-10-CM R93.89 Abnormal findings on dx imaging of oth body structures TAILA MICHELLE [facility] Encounter Template Text not used by [place] Assessments - Encounter Diagnoses This section includes the primary and secondary diagnoses documented for the Encounter. Date/Time Primary/Secondary Diagnosis Diagnosis Name Provider Source May 26, 2024 10:24 AM PRIMARY Abnormal findings on dx imaging of oth body structures TALIA MICHELLE [facility] Plan of Treatment: Future Appointments (+ 6 months) and Future Tests (+/- 45 days) The Plan of Treatment section includes future care activities for the [facility] [place] [facility] This section includes future appointments and future orders which are active, pending or scheduled. Future Appointments This section includes appointments that were scheduled to occur 6 months from the date of the Encounter, up to a maximum of 20 appointments. The data comes from all [place] treatment facilities. Appointment Date/Time Appointment Type Appointme nt Facility Name Jun 03, 2024 10:00 AM [facility] Jun 04, 2024 09:30 AM [facility] Jun 05, 2024 01:30 PM [facility] Jun 12, 2024 07:30 AM [facility] [place] [facility] Jun 12, 2024 08:30 AM [facility] Jun 23, 2024 10:15 AM [place] [facility] Jul 06, 2024 08:30 AM [place] [facility] Jul 16, 2024 07:30 AM [place] [facility] Jul 16, 2024 08:30 AM [place] [facility] Jul 16, 2024 09:00 AM [place] [facility] Jul 16, 2024 09:30 AM [place] [facility] Oct 07, 2024 09:00 AM [facility] Oct 19, 2024 09:30 AM [facility] Active, Pending, and Scheduled Orders This section includes a listing of several types of active, pending, and scheduled orders, including clinic medications orders, diagnostic test orders, procedure orders and consult orders; where the start date of the order is 45 days before the date of the Encounter or 45 days after the date of theEncounter. The data comes from all [place] treatment facilities. Test Date/Time Test Type Test Details Facility Name Jun 19, 2024 04:32 PM Consult Order COMMUNITY CARE-NUCLEAR MEDICINE Cons Concession Attendant's Choice [facility] Lab Results: +/- 30 [...] Range Comment Jun 12, 2024 07:[address] [facility] PHOSPHORUS Specimen Type: PLASMA No comment entered. Ordering Provider: JAVIER MICHELLE Report Released Date/Time: May 26, 2024 09:45 AM Reporting Lab: [facility] [address] Performing Lab: [facility] [address] PHOSPHORUS 3.4 mg/dL 2.3-4.3 Jun 12, 2024 07:[address] [facility] RETICS Specimen Type: BLOOD Comment: Automated Differential Performed Ordering Provider: JAVIER MICHELLE Report Released Date/Time: May 26, 2024 09:53 AM Reporting Lab: [facility] [id number] Performing Lab: [facility] [address] ABS RETIC 0.0429 0.0300-0.1 000 .RETICULOCYTE 1.06 0.6-2.0 IMMATURE RETIC 5.9 1.0-14.0 .RETICULOCYTE HE 30.5 pg 28.2-36.6 Jun 12, 2024 07:[address] [facility] COMPREHENSIVE METABOLIC PANEL+MG Specimen Type: PLASMA No comment entered. Ordering Provider: JAVIER MICHELLE Report Released Date/Time: May 26, 2024 09:45 AM Reporting Lab: [facility] [address] Performing Lab: [facility] [address] CREATININE 1.0 mg/dL 0.7-1.2 UREA NITROGEN 22 [...] 78 >60 Jun 12, 2024 07:[address] [facility] CBC & DIFF Specimen Type: BLOOD Comment: Automated Differential Performed Ordering Provider: JAVIER MICHELLE Report Released Date/Time: May 26, 2024 09:45 AM Reporting Lab: [facility] [address] Performing Lab: [facility] [address] WBC 6.4 4.0-11.0 RBC 4.05 L 4.60-6.20 [...] pg 28.2-36.6 Jun 03, 2024 11:[address] [facility] URINALYSIS Specimen Type: URINE No comment entered. Ordering Provider: LYUBOV YEUNG Report Released Date/Time: Jun 03, 2024 10:39 AM Reporting Lab: [facility] [address] Performing Lab: [facility] [address] URINE COLOR YELLOW SPECIFIC GRAVITY 1.018 1.003-1.03 [...] 75 NEGATIVE May 20, 2024 09:[address] [facility] FINGERSTICK GLUCOSE Specimen Type: BLOOD Comment: Save Result Ordering Provider: TANK PHILLIPS Report Released Date/Time: May 20, 2024 03:03 PM Reporting Lab: [facility] [address] Performing Lab: [facility] [address] FINGERSTICK GLUCOSE 148 mg/dL H 70-100 May 13, 2024 11:[address] [facility] KAPPA/LAMBDA LC FREE,RATIO Specimen Type: SERUM [...] therapy of these disorders. Test Performed by [facility], [facility], [address] [place], [place] Devante Meyer M.D., Ph.D., Director of Laboratories , [facility] [id number] Ordering Provider: RENUKA JOHNSON Report Released Date/Time: Apr 24, 2024 04:08 PM Reporting Lab: [facility] [address] Performing Lab: [facility] [address] [facility] .KAPPA LT CHAIN,FREE 27.3 mg/L H 3.3-19.4 .LAMBDA LC,FREE 15.8 mg/L 5.7-26.3 .KAPPA/LAMBDA, FREE 1.73 H 0.26-1.65 May 13, 2024 11:[address] [facility] LD,TOTAL Specimen Type: PLASMA No comment entered. Ordering Provider: RENUKA JOHNSON Report Released Date/Time: Apr 24, 2024 04:08 PM Reporting Lab: [facility] [address] Performing Lab: [facility] [address] LD,TOTAL 141 U/L 125-220 May 13, 2024 11:[address] [facility] URIC ACID Specimen Type: PLASMA No comment entered. Ordering Provider: RENUKA JOHNSON Report Released Date/Time: Apr 24, 2024 04:08 PM Reporting Lab: [facility] [address] Performing Lab: [facility] [address] URIC ACID 3.1 mg/dL L 3.7-7.7 May 13, 2024 11:[address] [facility] B 12 Specimen Type: SERUM No comment entered. Ordering Provider: RENUKA JOHNSON Report Released Date/Time: Apr 24, 2024 04:08 PM Reporting Lab: [facility] [address] Performing Lab: [facility] [address] B 12 722 pg/mL 213-816 May 13, 2024 11:[address] [facility] FOLATE Specimen Type: SERUM No comment entered. Ordering Provider: RENUKA JOHNSON Report Released Date/Time: Apr 24, 2024 04:08 PM Reporting Lab: [facility] [address] Performing Lab: [place] [address] FOLATE 14.6 ng/mL >7.0 May 13, 2024 11:[address] [facility] PHOSPHORUS Specimen Type: PLASMA No comment entered. Ordering Provider: RENUKA JOHNSON Report Released Date/Time: Apr 24, 2024 04:08 PM Reporting Lab: [facility] [address] Performing Lab: [facility] [address] PHOSPHORUS 3.3 mg/dL 2.3-4.3 May 13, 2024 11:[address] [facility] IRON GROUP Specimen Type: SERUM No comment entered. Ordering Provider: RENUKA JOHNSON Report Released Date/Time: Apr 24, 2024 04:08 PM Reporting Lab: [facility] [address] Performing Lab: [facility] [address] IRON 101 ug/dL 65-175 TIBC,CALCULATE D 313 ug/dL 250-425 FERRITIN pending IRON SATURATION 32 20-50 TRANSFERRIN 250 mg/dL 163-382 May 13, 2024 11:[address] [facility] BETA 2-MICROGLOBULIN Specimen Type: SERUM No comment entered. Ordering Provider: RENUKA JOHNSON Report Released Date/Time: Apr 24, 2024 04:08 PM Reporting Lab: [facility] [address] Performing Lab: [facility] [address] BETA 2-MICROGLOBULI N 3.36 mg/L H 0.97-2.64 May 13, 2024 11:[address] [facility] PSA Specimen Type: SERUM No comment entered. Ordering Provider: ABBY MEANS Report Released Date/Time: May 12, 2024 08:28 PM Reporting Lab: [facility] [address] Performing Lab: [facility] [address] PSA 0.49 ng/mL <4.00 May 13, 2024 11:[address] [facility] TOTAL IMMUNOGLOB (IGA,IGG,IGM) Specimen Type: PLASMA No comment entered. Ordering Provider: RENUKA JOHNSON Report Released Date/Time: Apr 24, 2024 04:08 PM Reporting Lab: [facility] [address] Performing Lab: [facility] [address] IGM 78.8 mg/dL 22.0-293.0 IGG 714.3 mg/dL 540.0-18 22 .0 IGA 123.8 mg/dL 63.0-645.0 May 13, 2024 11:[address] [facility] TESTOSTERONE Specimen Type: SERUM No comment entered. Ordering Provider: ABBY MEANS Report Released Date/Time: May 12, 2024 08:30 PM Reporting Lab: [facility] [address] Performing Lab: [facility] [address] TESTOSTERONE 534 ng/dL 221-870 May 13, 2024 11:[address] [facility] CBC & DIFF Specimen Type: BLOOD Comment: Automated Differential Performed Ordering Provider: RENUKA JOHNSON Report Released Date/Time: Apr 24, 2024 04:08 PM Reporting Lab: [facility] [address] Performing Lab: [facility] [address] WBC 8.3 4.0-11.0 RBC 4.04 L 4.60-6.20 [...] 0.0 0.0-0.1 May 13, 2024 11:[address] [facility] COMPREHENSIVE METABOLIC PANEL+MG Specimen Type: PLASMA No comment entered. Ordering Provider: RENUKA JOHNSON Report Released Date/Time: Apr 24, 2024 04:08 PM Reporting Lab: [facility] [address] Performing Lab: [facility] [address] CREATININE 1.0 mg/dL 0.7-1.2 UREA NITROGEN 26 [...] 78 >60 May 13, 2024 11:[address] [facility] PERIPHERAL SMEAR PATHOLOGIST REVIEW Specimen Type: BLOOD No comment entered. Ordering Provider: RENUKA JOHNSON Report Released Date/Time: May 13, 2024 01:51 PM Reporting Lab: [facility] [address] Performing Lab: [facility] [address] PERIPHERAL SMEAR PATHOLOGIST REVIEW SLIDES MADE Vital Signs: All taken on the encounter date This section contains inpatient and outpatient Vital Signs collected on the date of the Encounter. Date/Time Temperature Pulse Blood Pressure Respiratory Rate SP02 Pain Height Weight Body Mass Index Source May 26, 2024 09:22 AM 98.6 88 110/73 19 98 4 166.9 25 [facility] Social History: Smoking Status [...] place. Date/Time Current Smoking Status Comment Facil [facility] Aug 21, 2023 10:30 AM [place]-TOBACCO QUIT [address] [facility] Tobacco Use History This section includes a history of the smoking, or tobacco-related health factors, that were collected on or before the date of the Encounter. The data comes from the [place] facility where the Encounter took place. Date/Time Smoking Status/Tobacco Use Comment F acility Aug 21, 2023 10:30 AM VA-TOBACCO QUIT [address] [facility] Aug 15, 2022 09:00 AM VA-TOBACCO FORMER USER [facility] Aug 15, 2022 09:00 AM VA-TOBACCO [...] 7Y OR GREATE R [facility] Radiology Reports: +/- 30 days of [...] the Encounter. The data comes from all [facility] facilities. Date/Time Radiology Report Provider Source May 20, 2024 09:[address] BODY W/O CO NTRAST (P): JUAN THOMPSON [id number] -1945 M Exm Date: MAY 20, 2024@09:14 Req Phys: LYUBOV YEUNG Loc: [facility] APACT L RES 03 WH 4F (Req' Img Loc: NUC MED Service: [place] [address] (Case [id number] COMPLETE) SKULL-THIGH PET IMAGE W/CT (NM Detailed) CPT:11143 Reason for Study: eval for malignancy (Case [...] pager listed below: User placing orders pager: [phone] LAST CREATININE 1.0 (04/22/24) Report Status: Verified Date Reported: MAY 20, 2024 Date Verified: MAY 20, 2024 Academic Advisement Director E-Sig:/ES/RUFUS GROVES MD, FACR, CCD Report: PET/CT [...] Staff: RUFUS GROVES MD, FACR, STAFF RADIOLOGIST (Academic Advisement Director) /BSF RUFUS GROVES [facility] Pathology Reports: +/- 30 days of [...] comes from all [place] treatment facilities. Date/Time Pathology Report Provider Source Jun 16, 2024 12:06 PM LR SURGICAL PATHOLOGY REPORT: LOCAL TITLE: LR SURGICAL PATHOLOGY REPORT STANDARD TITLE: PATHOLOGY REPORT DATE OF NOTE: JUN 16, 2024@12:06:01 ENTRY DATE: JUN 16, 2024@12:06:01 AUTHOR: BRIELLE AMIN COSIGNER: URGENCY: STATUS: COMPLETED $APHDR Reporting Lab: [facility] [CLIA# [id number]] [facility] [place] [address] - - - - - - - - - - - - - - - - - - - - - - - - - - - - - - - - - - - - - - - - MEDICAL RECORD BONE MARROW - - - - - - - - - - - - - - - - - - - - - - - - - - - - - - - - - - - - - - - - PATHOLOGY REPORT Accession No. [id number] - - - - - - - - - - - - - - - - - - - - - - - - - - - - - - - - - - - - - - - - $TEXT Submitted by: Date obtained: Jun 12, 2024 10:30 - - - - - - - - - - - - - - - - - - - - - - - - - - - - - - - - - - - - - - - - Specimen (Received Jun 12, 2024 11:40): BONE MARROW - - - - - - - - - - - - - - - - - - - - - - - - - - - - - - - - - - - - - - - - BRIEF CLINICAL HISTORY: 78 year old male with lytic lesion, weight loss and fatigue. - - - - - - - [...] - - - - POSTOPERATIVE DIAGNOSIS: Surgeon/physician: JAVIER MICHELLE =-=-=-=-=-=-=-=-=-=-=-=-=-=-=- =-=-=-=-=-=-=-=-=-=-=-=-=-=-=- =-=-=-=-=-=-=-=-=-= - - - - - - - - - - - - - - - - - - - - - - - - - - - - - - - - - - - - - - - - PATHOLOGY REPORT Accession No. [id number] - - - - - - - - - - - - - - - - - - - - - - - - - - - - - - - - - - - - - - - - Bone marrow biopsy procedure performed by SAL Jurado. Bone marrow core biopsy obtained from right posterior iliac crest. Bone marrow aspirate obtained from right posterior iliac crest. Specimens are received labeled with the patient's name and MRN and date/time in formalin. Specimen identification is confirmed. A. Specimen is labeled Asp and is an particle concentrate consisting of 4.0x1.0x0.1cm aggregate of hemorrhagic soft tissue entirely submitted in cassette A. B. Specimen is labeled right bone and consists of 1 red-pink bone core fragment of approximately 0.3cm in diameter and length of 2.0cm entirely submitted after decalcification in cassette B. Grossing performed by: DAVID, Spraying Machine Operator Entered by: DAVID, Spraying Machine Operator Grossing confirmed by: Brielle Amin Hematopathologist This report includes the results of laboratory tests utilizing Analyte Specific Reagents or commercially available antibodies (Stow and Lambda CISH Probes). These tests have been developed, fully validated, and their optimal performance characteristics determined by the [facility]. Such tests have not been cleared nor approved by the US Food and Drug Administration. Proper control tissues were used. DIAGNOSIS: - Slightly hypercellular bone marrow (50% cellular) with trilineage hematopoietic maturation - No morphologic or immunophenotypic evidence of involvement by a lymphoid or plasma cell neoplasm; no evidence of metastatic carcinoma - Peripheral blood smear with moderate normochromic, normocytic anemia Comment: Please see also concurrent negative flow cytometry study ([id number]). Imaging studies concerning for possible lytic lesions are noted. Bone marrow findings do not provide an explanation for these concerns. Rare lymphoid aggregates are present; however, there is no immunophenotypic evidence of clonal lymphocyte (or plasma cell) populations. PERIPHERAL BLOOD DATA: 06/12/2024 HEMOGRAM WBC 6.43 (K/cmm) RBC 4.05 (M/cmm) HGB 11.8 (g/dL) MCV 92.6 (fl) MCHC 31.5 (g/dl) RDW-CV 14.1 (%) PLT 298 (K/cmm) DIFFERENTIAL (200 cells) 58.0% neutrophils 34.0% lymphocytes 5.0% monocytes 3.0% eosinophils 0.0% basophils Morphologic Description: The red blood cells are normochromic. Occasional elliptocytes, ellipto-ovalocytes, and echinocytes are seen. White blood cell morphology is essentially unremarkable. Small platelet clumps are noted. BONE MARROW SPECIAL STUDIES SENT: Flow cytometry DIFFERENTIAL: 500 cells from touch imprints. Normal Ranges Myeloblasts 1.4 % 0-1 Promyelocytes 2.0 % 2-4 Neutrophil & Precursors 55.0 % 54-63 Erythroid precursors 31.0 % 18-24 Monocytes 1.0 % 1-1.5 Eosinophils 4.0 % 1-3 Basophils 0.0 % 0-1 Lymphocytes 5.0 % 8-12 Plasma cells 0.6 % 0-1.5 ASPIRATE DESCRIPTION: The aspirate smears and touch imprints are adequate for evaluation. Neutrophilic and erythroid maturation is complete. Erythroid precursors show slight megaloblastoid changes and rare karyorrhectic nuclei. Megakaryocytes are present and generally show normal morphology. A rare hypolobated megakaryocyte or megakaryocyte with widely nuclear lobes is noted. IRON STAINS: Iron stains with appropriately reactive tissue controls were performed. Sideroblasts number 17% of erythroblasts. Ring sideroblasts number 3% of normoblasts. Of note, the ring sideroblasts identified fulfill only minimal morphologic requirements. Particle crush preparation shows slightly increased storage iron. CLOT AND TREPHINE BIOPSY SECTIONS: The biopsy section is adequate for evaluation. The marrow is slightly hypercellular for the patients age (50 cellular). The differential count of the touch imprint is confirmed. Megakaryocytes are normal in number. Rare lymphoid aggregates are seen. IMMUNOHISTOCHEMISTRY: Immunohistochemical stains with appropriately reactive tissue controls for CD3, CD20, CD34, CD61, CD138, Stow and lambda light chains, and pankeratin are performed on the clot and biopsy sections. Rare blasts are seen. Megakaryocytes appear generally adequate in number and morphology. Scattered and small groups of B- and T-cells are present with T-cells exceeding B-cells. Plasma cells appear normal in number and distribution and appear polyclonal. Pankeratin stain is negative. /pablo/ BRIELLE AMIN MD STAFF PATHOLOGIST, PATHOLOGY & LABORATORY [facility] Signed Jun 16, 2024@12:06 Performing Laboratory: Surgical Pathology Report Performed By: [facility] [CLIA# [id number]] [place] [address] $FTR - - - - - - - - - - - - - - - - - - - - - - - - - - - - - - - - - - - - - - - - (End of report) BRIELLE AMIN MD [facility] [place] Date Jun 16, 2024 - - - - - - - - - - - - - - - - - - - - - - - - - - - - - - - - - - - - - - - - JUAN THOMPSON JR STANDARD FORM 515 ID:[id number] SEX:M :1945 AGE: 78 LOC:[id number] PCP: Sonia alegre/ BRIELLE AMIN MD STAFF PATHOLOGIST, PATHOLOGY & LABORATORY [facility] Signed: 06/16/2024 12:[address] [facility] Jun 16, 2024 12:02 PM LR SURGICAL PATHOLOGY REPORT: LOCAL TITLE: LR SURGICAL PATHOLOGY REPORT STANDARD TITLE: PATHOLOGY REPORT DATE OF NOTE: JUN 16, 2024@12:02:40 ENTRY DATE: JUN 16, 2024@12:02:40 AUTHOR: BRIELLE AMIN EXP COSIGNER: URGENCY: STATUS: COMPLETED $APHDR Reporting Lab: [facility] [CLIA# [id number]] [place] [address] - - - - - - - - - - - - - - - - - - - - - - - - - - - - - - - - - - - - - - - - MEDICAL RECORD FLOW CYTOMETRY - - - - - - - - - - - - - - - - - - - - - - - - - - - - - - - - - - - - - - - - PATHOLOGY REPORT Accession No. [id number] - - - - - - - - - - - - - - - - - - - - - - - - - - - - - - - - - - - - - - - - $TEXT Submitted by: Date obtained: Jun 12, 2024 10:15 - - - - - - - - - - - - - - - - - - - - - - - - - - - - - - - - - - - - - - - - Specimen (Received Jun 12, 2024 10:56): IMMUNOPHENOTYPING BONE MARROW Bone Marrow Aspirate - - - - - - - [...] - - - - POSTOPERATIVE DIAGNOSIS: Surgeon/physician: JAVIER MICHELLE =-=-=-=-=-=-=-=-=-=-=-=-=-=-=- =-=-=-=-=-=-=-=-=-=-=-=-=-=-=- =-=-=-=-=-=-=-=-=-= - - - - - - - - - - - - - - - - - - - - - - - - - - - - - - - - - - - - - - - - PATHOLOGY REPORT Accession No. [id number] - - - - - - - - - - - - - - - - - - - - - - - - - - - - - - - - - - - - - - - - INTERPRETATION: No immunophenotypic evidence of a lymphoproliferative disorder. No increase in blasts. Plasma cell clonality was not analyzed by this method. For morphologic correlation see bone marrow biopsy report [id number]. Summary: On CD45 vs. side scatter analysis, lymphocytes comprise 14% of the total cells analyzed, and consist of 73% T-cells, 3% B-cells and 24% NK-cells. The CD4:CD8 ratio is normal: 1.6:1. The B-cells are polyclonal with a kappa to lambda ratio of 1.5:1. A population of plasma cells is identified by this method, comprising 0.2% of the total cells analyzed (approximately 150 cells). These cells express CD19, CD38, CD45, and CD138 but lack CD56. Plasma cells were too scarce for assessment of clonality. Blasts are not increased (1% of total cells analyzed). Antibodies performed: Six color analyses are performed for the following markers: CD3, CD4, CD8, CD10, CD13, CD14, CD19, CD20, CD23, CD33, CD34, CD38, CD43, CD45, CD138, and kappa and lambda (surface and cytoplasmic) immunoglobulin chains. Cells are gated to isolate populations (CD45 vs side scatter and forward scatter vs side scatter) to exclude debris and to exclude cell doublets. Forward scatter varies with size. Side scatter varies with the number of cytoplasmic granules. Intensity for CD45 usually increases as hematolymphoid cells mature. This test was developed and its performance characteristics determined by the [facility]. It has not been cleared or approved by the U.S. Food and Drug Administration. /pablo/ BRIELLE AMIN MD STAFF PATHOLOGIST, PATHOLOGY & LABORATORY MED [facility] [place] Signed Jun 16, 2024@12:02 Performing Laboratory: Surgical Pathology Report Performed By: [facility] [CLIA# [id number]] [place] [address] $FTR - - - - - - - - - - - - - - - - - - - - - - - - - - - - - - - - - - - - - - - - (End of report) BRIELLE AMIN MD [facility] [place] Date Jun 16, 2024 - - - - - - - - - - - - - - - - - - - - - - - - - - - - - - - - - - - - - - - - JUAN THOMPSON STANDARD FORM 515 ID:[id number] SEX:M :1945 AGE: 78 LOC:[id number] PCP: Sonia Phillips /aneesh AMIN MD STAFF PATHOLOGIST, PATHOLOGY & LABORATORY [facility] Signed: 06/16/2024 12:[address] [facility] May 14, 2024 10:47 AM LR SURGICAL PATHOLOGY REPORT: LOCAL TITLE: LR SURGICAL PATHOLOGY REPORT STANDARD TITLE: PATHOLOGY REPORT DATE OF NOTE: MAY 14, 2024@10:47:04 ENTRY DATE: MAY 14, 2024@10:47:04 AUTHOR: VIPUL DASILVA COSIGNER: URGENCY: STATUS: COMPLETED $APHDR Reporting Lab: [facility] [CLIA# [id number]] [place] [address] - - - - - - - [...] Performing Laboratory: Surgical Pathology Report Performed By: [facility] [CLIA# [id number]] [place] [address] $FTR - - - - - - [...] - JUAN THOMPSON JR STANDARD FORM 515 ID:[id number] SEX:M :1945 AGE: 78 LOC:[id number] PCP: Sonia Phillips /pablo/ VIPUL DASILVA MD STAFF PATHOLOGIST Signed: 05/14/2024 10:[address] [facility] Encounter Notes: All associated encounter notes This section contains the clinical notes associated to the Encounter. Date/Time Encounter Note(s) Provider Source May 26, 2024 10:27 AM ADDENDUM: LOCAL TITLE: Addendum STANDARD TITLE: ADDENDUM DATE OF NOTE: MAY 26, 2024@10:27:57 ENTRY DATE: MAY 26, 2024@10:27:58 AUTHOR: JAVIER MICHELLE: URGENCY: STATUS: COMPLETED In review of patient's chart, mortgage loan underwriter identified that has a guardian (see neuropsych note 01/17/23). A BMBX has been recommended for . Visual Developer saw today who appeared decisional. Requesting Hem/Onc social media sr strategy manager to evaluate further and see if guardian will need to be present (via phone or in person) to consent for BMBX for patient. /pablo/ JAVIER MICHELLE, MSN, TILE LAYER DRAINAGE TILE LAYER DRAINAGE Signed: 05/26/2024 10:31 Receipt Acknowledged By: 05/26/2024 13:09 /pablo/ TISHA KRUSE, [facility] Primary Care Loss Prevention Analyst --- Original Document --- 05/26/24 HEME/ONC CLINIC NOTE: Date of service: MAY 25, 2024 Last visit: 05/13/24 Reason for visit: f/u for lytic lesions Interval Hx: JUAN THOMPSON is a 78 year old MALE who presents to the [facility] ([facility]). Liberty shares that his right and left leg have been hurting, mainly from knee up and into the thigh and has been interrupting sleep. He shares that he is currently being evaluated for a hip replacement, anticipated to take place in September. No new leg weakness, no overt blood in stool or urine however, urine turns black in incontinence brief. He also has a strong sense of urinary urgency and is frequently unable to make it to the restroom before his stream has started. Has numbness and tingling and hands in feet, baseline due to diagnosis of peripheral neuropathy. Denies fevers, chills, night sweats. Denies changes in appetite or baseline energy level. Denies recent infections, hospitalizations, or changes in baseline health. ROS: 10 point ROS completed with pertinent positives and negatives as detailed above in interval history section. 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 07/2023 CT C spine showed multi level degenerative changes without fractures. 04/22/24: SPEP, UPEP: no monoclonal protein, 11/27/22: [...] histopathologic abnormalities -no evidence of eosinophilic esophagitis Meds reviewed/Allergies reviewed: SULFAMETHOXAZOLE (Feb 07, 2022) EMPAGLIFLOZIN (Jun 06, 2022) Nursing note and vitals reviewed: Height: 68 in [172.7 cm] (04/22/2024 08:40) Weight: 162.3 lb. [73.62 kg] (05/13/2024 12:38) BSA: 1.88 BMI: 24.7 BP: 120/80 (05/13/2024 12:38) Pulse: 105 (05/13/2024 12:38) Resp: 17 (05/13/2024 12:38) Temp: 98.6 F [37.0 C] (05/13/2024 12:38) Pain: 4 (05/13/2024 12:38) Measurement DT WEIGHT LB(KG)[BMI] 05/13/2024 12:38 162.3(73.62)[25] 04/29/2024 12:02 158(71.67)[24] 04/22/2024 08:40 154.8(70.22)[24] PHYSICAL EXAMINATION: General: no acute distress, appears stated age, dressed appropriately for weather. Head: normocephalic and atraumatic Cardiac: Regular rate and rhythm, no lower extremity edema Respiratory: symmetrical chest expansion and respiratory effort, no audible rales, rhonchi, or wheezing MSK: walks with rollinator at baseline Skin: no rash or ulcers, no nodules Neurology: grossly normal, no apparent neuro deficits Psychiatric: Appropriate mood and affect. LABORATORY/IMAGING STUDIES: The results of the laboratory and imaging studies obtained by Hem/Onc for this visit were reviewed and discussed with the patient. LABORATORY Collection DT Spec WBC HGB HCT PLT MCV NEUT LYMPHS 05/13/2024 11:44 BLOOD 8.3 11.5 L 36.7 L 327 90.8 66.2 23.9 04/22/2024 08:15 BLOOD 9.8 13.0 L 40.2 L 328 90.3 03/05/2024 09:55 BLOOD 6.85 12.3 L 37.6 L 305 89.5 65.5 23.8 CREATININE 1.0 PLASMA (05/13/24 11:44) 1.0 PLASMA (04/22/24 08:15) 1.1 PLASMA (03/05/24 09:55) UREA NITROGEN 26 (05/13/24) POTASSIUM 4.1 (05/13/24) SODIUM 140 (05/13/24) CO2 30 H (05/13/24) CALCIUM 9.2 (05/13/24) MAGNESIUM 1.5 L (05/13/24) PO4 3.3 (05/13/24) SGOT 21 (05/13/24) SGPT 14 (05/13/24) BILIRUBIN, TOTAL 0.4 (05/13/24) ALK PHOSPHATASE 78 (05/13/24) ALBUMIN 3.9 (05/13/24) IMAGING: PET SCAN 05/20/24 Impression: 1. Hyperglycemia. This may decrease the sensitivity of the examination for detecting viable tumor. 2. No malignancy identified. 3. Residual ground glass opacity right upper lobe. This is associated with a 5 mm solid nodule which appears new from April 20, 2024. I would favor the findings are likely inflammatory in nature. If clinically desired, close follow-up can be considered. Performance Status: ECOG 2 0 Fully active, able to carry on all pre-disease performance without restriction 1 Restricted in physically strenuous activity but ambulatory and able to carry out work of a light or sedentary nature, e.g., light house work, office work 2 Ambulatory and capable of all selfcare but unable to carry out any work activities. Up and about more than 50% of waking hours 3 Capable of only limited selfcare, confined to bed or chair more than 50% of waking hours 4 Completely disabled. Cannot carry on any selfcare. Totally confined to bed or chair 5 Am. J. Clin. Oncol. (CCT) 5:649-655, 1981 ASSESSMENT/PLAN: 1. A 78 -year-old male with complex PMHx including but not limited to Ina en Y bypass (2011), Afib on Eliquis, personal history of colonic polyps, mild cognitive disorder, bipolar disorder, >3- year smoking history, lung nodules here for initial oncology visit for lytic lesions and non specific LAD noted on CT and ongoing unintentional weight loss for malignancy work up. At this time we do not have a definite diagnosis of malignancy. PSA today normal. SPEP , UPEP without monoclonal protein, will complete MM workup with Light chains, IgG levels. Overall low suspicion of MM with normal renal function, normal Calcium, Hgb 11-13 to explain this extent of bone inv, could still be light chain disease. Pt has unexplained non specific LAD of unclear origin. Pet scan completed 05/20/24 does not demonstrate evidence of malignancy. Discussed with patient that next step for work up would be bone marrow biopsy. Patient is agreeable to pursing bone marrow biopsy. PLAN: - BMBX in next 2-3 weeks - RTC MD Johnson Fellow clinic 1 week following, with labs prior Patient Education of Treatment Plan: Patient indicates readiness to learn, verbalizes understanding, agreement and satisfaction with the treatment plan. All questions answered to their apparent satisfaction. 40 min spent in total including time spent with patient, reviewing lab results, examination, reviewing treatment plan, coordination of care, and EHR documentation. Pt discussed with Dr. Johnson who agrees with the above assessment and plan. /pablo/ JAVIER MICHELLE, MSN, TILE LAYER DRAINAGE TILE LAYER DRAINAGE Signed: 05/26/2024 10:24 Receipt Acknowledged By: * AWAITING SIGNATURE * RENUKA JOHNSON [facility] May 26, 2024 10:23 AM HEMATOLOGY AND ONCOLOGY ATTENDING NOTE: LOCAL TITLE: HEME/ONC CLINIC NOTE STANDARD TITLE: HEMATOLOGY AND ONCOLOGY ATTENDING NOTE DATE OF NOTE: MAY 26, 2024@10:23 ENTRY DATE: MAY 25, 2024@17:45:09 AUTHOR: JAVIER MICHELLE EXP COSIGNER: URGENCY: STATUS: COMPLETED HEME/ONC CLINIC NOTE Has ADDENDA Date of service: MAY 25, 2024 Last visit: 05/13/24 Reason for visit: f/u for lytic lesions Interval Hx: JUAN BEVERLY JR DONNA is a 78 year old MALE who presents to the [facility] ([facility]). [place] shares that his right and left leg have been hurting, mainly from knee up and into the thigh and has been interrupting sleep. He shares that he is currently being evaluated for a hip replacement, anticipated to take place in September. No new leg weakness, no overt blood in stool or urine however, urine turns black in incontinence brief. He also has a strong sense of urinary urgency and is frequently unable to make it to the restroom before his stream has started. Has numbness and tingling and hands in feet, baseline due to diagnosis of peripheral neuropathy. Denies fevers, chills, night sweats. Denies changes in appetite or baseline energy level. Denies recent infections, hospitalizations, or changes in baseline health. ROS: 10 point ROS completed with pertinent positives and negatives as detailed above in interval history section. 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 07/2023 CT C spine showed multi level degenerative changes without fractures. 04/22/24: SPEP, UPEP: no monoclonal protein, 11/27/22: [...] histopathologic abnormalities -no evidence of eosinophilic esophagitis Meds reviewed/Allergies reviewed: SULFAMETHOXAZOLE (Feb 07, 2022) EMPAGLIFLOZIN (Jun 06, 2022) Nursing note and vitals reviewed: Height: 68 in [172.7 cm] (04/22/2024 08:40) Weight: 162.3 lb. [73.62 kg] (05/13/2024 12:38) BSA: 1.88 BMI: 24.7 BP: 120/80 (05/13/2024 12:38) Pulse: 105 (05/13/2024 12:38) Resp: 17 (05/13/2024 12:38) Temp: 98.6 F [37.0 C] (05/13/2024 12:38) Pain: 4 (05/13/2024 12:38) Measurement DT WEIGHT LB(KG)[BMI] 05/13/2024 12:38 162.3(73.62)[25] 04/29/2024 12:02 158(71.67)[24] 04/22/2024 08:40 154.8(70.22)[24] PHYSICAL EXAMINATION: General: no acute distress, appears stated age, dressed appropriately for weather. Head: normocephalic and atraumatic Cardiac: Regular rate and rhythm, no lower extremity edema Respiratory: symmetrical chest expansion and respiratory effort, no audible rales, rhonchi, or wheezing MSK: walks with rollinator at baseline Skin: no rash or ulcers, no nodules Neurology: grossly normal, no apparent neuro deficits Psychiatric: Appropriate mood and affect. LABORATORY/IMAGING STUDIES: The results of the laboratory and imaging studies obtained by Hem/Onc for this visit were reviewed and discussed with the patient. LABORATORY Collection DT Spec WBC HGB HCT PLT MCV NEUT LYMPHS 05/13/2024 11:44 BLOOD 8.3 11.5 L 36.7 L 327 90.8 66.2 23.9 04/22/2024 08:15 BLOOD 9.8 13.0 L 40.2 L 328 90.3 03/05/2024 09:55 BLOOD 6.85 12.3 L 37.6 L 305 89.5 65.5 23.8 CREATININE 1.0 PLASMA (05/13/24 11:44) 1.0 PLASMA (04/22/24 08:15) 1.1 PLASMA (03/05/24 09:55) UREA NITROGEN 26 (05/13/24) POTASSIUM 4.1 (05/13/24) SODIUM 140 (05/13/24) CO2 30 H (05/13/24) CALCIUM 9.2 (05/13/24) MAGNESIUM 1.5 L (05/13/24) PO4 3.3 (05/13/24) SGOT 21 (05/13/24) SGPT 14 (05/13/24) BILIRUBIN, TOTAL 0.4 (05/13/24) ALK PHOSPHATASE 78 (05/13/24) ALBUMIN 3.9 (05/13/24) IMAGING: PET SCAN 05/20/24 Impression: 1. Hyperglycemia. This may decrease the sensitivity of the examination for detecting viable tumor. 2. No malignancy identified. 3. Residual ground glass opacity right upper lobe. This is associated with a 5 mm solid nodule which appears new from April 20, 2024. I would favor the findings are likely inflammatory in nature. If clinically desired, close follow-up can be considered. Performance Status: ECOG 2 0 Fully active, able to carry on all pre-disease performance without restriction 1 Restricted in physically strenuous activity but ambulatory and able to carry out work of a light or sedentary nature, e.g., light house work, office work 2 Ambulatory and capable of all selfcare but unable to carry out any work activities. Up and about more than 50% of waking hours 3 Capable of only limited selfcare, confined to bed or chair more than 50% of waking hours 4 Completely disabled. Cannot carry on any selfcare. Totally confined to bed or chair 5 Am. J. Clin. Oncol. (CCT) 5:649-655, 1982 ASSESSMENT/PLAN: 1. A 78 -year-old male with complex PMHx including but not limited to Ina en Y bypass (2011), Afib on Eliquis, personal history of colonic polyps, mild cognitive disorder, bipolar disorder, >3- year smoking history, lung nodules here for initial oncology visit for lytic lesions and non specific LAD noted on CT and ongoing unintentional weight loss for malignancy work up. At this time we do not have a definite diagnosis of malignancy. PSA today normal. SPEP , UPEP without monoclonal protein, will complete MM workup with Light chains, IgG levels. Overall low suspicion of MM with normal renal function, normal Calcium, Hgb 11-13 to explain this extent of bone inv, could still be light chain disease. Pt has unexplained non specific LAD of unclear origin. Pet scan completed 05/20/24 does not demonstrate evidence of malignancy. Discussed with patient that next step for work up would be bone marrow biopsy. Patient is agreeable to pursing bone marrow biopsy. PLAN: - BMBX in next 2-3 weeks - RTC MD Johnson Fellow clinic 1 week following, with labs prior Patient Education of Treatment Plan: Patient indicates readiness to learn, verbalizes understanding, agreement and satisfaction with the treatment plan. All questions answered to their apparent satisfaction. 40 min spent in total including time spent with patient, reviewing lab results, examination, reviewing treatment plan, coordination of care, and EHR documentation. Pt discussed with Dr. Johnson who agrees with the above assessment and plan. /pablo/ JAVIER MICHELLE, MSN, TILE LAYER DRAINAGE TILE LAYER DRAINAGE Signed: 05/26/2024 10:24 Receipt Acknowledged By: 05/26/2024 17:08 /es/ Renuka Johnson MD HEM/ONC STAFF PHYSICIAN 05/26/2024 ADDENDUM STATUS: COMPLETED In review of patient's chart, mortgage loan underwriter identified that has a guardian (see neuropsych note 01/17/23). A BMBX has been recommended for . Visual Developer saw today who appeared decisional. Requesting Hem/Onc social media sr strategy manager to evaluate further and see if guardian will need to be present (via phone or in person) to consent for BMBX for patient. /pablo/ JAVIER MICHELLE, MSN, TILE LAYER DRAINAGE TILE LAYER DRAINAGE Signed: 05/26/2024 10:31 Receipt Acknowledged By: 05/26/2024 13:09 /es/ TISHA KRUSE, [facility] Primary Care Loss Prevention Analyst 06/18/2024 ADDENDUM STATUS: COMPLETED - - - - - - - - - - - - - - - - - - - - - - - - - - - - - - - - - - - - - - - - PATHOLOGY REPORT Accession No. [id number] - - - - - - - - - - - - - - - - - - - - - - - - - - - - - - - - - - - - - - - - Submitted by: Date obtained: Jun 12, 2024 10:30 - - - - - - - - - - - - - - - - - - - - - - - - - - - - - - - - - - - - - - - - Specimen (Received Jun 12, 2024 11:40): BONE MARROW - - - - - - - - - - - - - - - - - - - - - - - - - - - - - - - - - - - - - - - - BRIEF CLINICAL HISTORY: 78 year old male with lytic lesion, weight loss and fatigue. - - - - - - - [...] - - - - POSTOPERATIVE DIAGNOSIS: Surgeon/physician: JAVIER MICHELLE =-=-=-=-=-=-=-=-=-=-=-=-=-=-= -=-=-=-=-=-=-=-=-=-=-=-=-=-=- =-=-=-=-=-=-=-=-=-=-= - - - - - - - - - - - - - - - - - - - - - - - - - - - - - - - - - - - - - - - - PATHOLOGY REPORT Accession No. [id number] - - - - - - - - - - - - - - - - - - - - - - - - - - - - - - - - - - - - - - - Bone marrow biopsy procedure performed by SAL Jurado. Bone marrow core biopsy obtained from right posterior iliac crest. Bone marrow aspirate obtained from right posterior iliac crest. Specimens are received labeled with the patient's name and MRN and date/time in formalin. Specimen identification is confirmed. A. Specimen is labeled Asp and is an particle concentrate consisting of 4.0x1.0x0.1cm aggregate of hemorrhagic soft tissue entirely submitted in cassette A. B. Specimen is labeled right bone and consists of 1 red-pink bone core fragment of approximately 0.3cm in diameter and length of 2.0cm entirely submitted after decalcification in cassette B. Grossing performed by: DAVID, Spraying Machine Operator Entered by: DAVID, Spraying Machine Operator Grossing confirmed by: Brielle Amin, Hematopathologist This report includes the results of laboratory tests utilizing Analyte Specific Reagents or commercially available antibodies (Stow and Lambda CISH Probes). These tests have been developed, fully validated, and their optimal performance characteristics determined by the [facility]. Such tests have not been cleared nor approved by the [place] Food and Drug Administration. Proper control tissues were used. DIAGNOSIS: - Slightly hypercellular bone marrow (50% cellular) with trilineage hematopoietic maturation - No morphologic or immunophenotypic evidence of involvement by a lymphoid or plasma cell neoplasm; no evidence of metastatic carcinoma - Peripheral blood smear with moderate normochromic, normocytic anemia Comment: Please see also concurrent negative flow cytometry study ([id number]). Imaging studies concerning for possible lytic lesions are noted. Bone marrow findings do not provide an explanation for these concerns. Rare lymphoid aggregates are present; however, there is no immunophenotypic evidence of clonal lymphocyte (or plasma cell) populations. PERIPHERAL BLOOD DATA: 06/12/2024 HEMOGRAM WBC 6.43 (K/cmm) RBC 4.05 (M/cmm) HGB 11.8 (g/dL) MCV 92.6 (fl) MCHC 31.5 (g/dl) RDW-CV 14.1 (%) PLT 298 (K/cmm) DIFFERENTIAL (200 cells) 58.0% neutrophils 34.0% lymphocytes 5.0% monocytes 3.0% eosinophils 0.0% basophils Morphologic Description: The red blood cells are normochromic. Occasional elliptocytes, ellipto-ovalocytes, and echinocytes are seen. White blood cell morphology is essentially unremarkable. Small platelet clumps are noted. BONE MARROW SPECIAL STUDIES SENT: Flow cytometry DIFFERENTIAL: 500 cells from touch imprints. Normal Ranges Myeloblasts 1.4 % 0-1 Promyelocytes 2.0 % 2-4 Neutrophil & Precursors 55.0 % 54-63 Erythroid precursors 31.0 % 18-24 Monocytes 1.0 % 1-1.5 Eosinophils 4.0 % 1-3 Basophils 0.0 % 0-1 Lymphocytes 5.0 % 8-12 Plasma cells 0.6 % 0-1.5 ASPIRATE DESCRIPTION: The aspirate smears and touch imprints are adequate for evaluation. Neutrophilic and erythroid maturation is complete. Erythroid precursors show slight megaloblastoid changes and rare karyorrhectic nuclei. Megakaryocytes are present and generally show normal morphology. A rare hypolobated megakaryocyte or megakaryocyte with widely nuclear lobes is noted. IRON STAINS: Iron stains with appropriately reactive tissue controls were performed. Sideroblasts number 17% of erythroblasts. Ring sideroblasts number 3% of normoblasts. Of note, the ring sideroblasts identified fulfill only minimal morphologic requirements. Particle crush preparation shows slightly increased storage iron. CLOT AND TREPHINE BIOPSY SECTIONS: The biopsy section is adequate for evaluation. The marrow is slightly hypercellular for the patients age (50 cellular). The differential count of the touch imprint is confirmed. Megakaryocytes are normal in number. Rare lymphoid aggregates are seen. IMMUNOHISTOCHEMISTRY: Immunohistochemical stains with appropriately reactive tissue controls for CD3, CD20, CD34, CD61, CD138, Stow and lambda light chains, and pankeratin are performed on the clot and biopsy sections. Rare blasts are seen. Megakaryocytes appear generally adequate in number and morphology. Scattered and small groups of B- and T-cells are present with T-cells exceeding B-cells. Plasma cells appear normal in number and distribution and appear polyclonal. Pankeratin stain is negative. /es/ BRIELLE AMIN MD STAFF PATHOLOGIST, PATHOLOGY & LABORATORY MED [facility] [place] Signed Jun 16, 2024@12:06 Performing Laboratory: Surgical Pathology Report Performed By: [facility] [CLIA# [id number]] [place] [address] - - - - - - - - - - - - - - - - - - - - - - - - - - - - - - - - - - - - - - - - (End of report) BRIELLE AMIN MD [facility] [place] Date Jun 16, 2024 - - - - - - - - - - - - - - - - - - - - - - - - - - - - - - - - - - - - - - - - JUAN THOMPSON JR STANDARD FORM 515 ID:[id number] SEX:M :1945 AGE: 78 LOC:[id number] PCP: Sonia Phillips Facility: [facility] /pablo/ JAVIER MICHELLE, MSN, TILE LAYER DRAINAGE TILE LAYER DRAINAGE Signed: 06/18/2024 19:[address] [facility] May 26, 2024 09:27 AM INTERNAL MEDICINE OUTPATIENT NOTE: LOCAL TITLE: MEDICINE CLINIC NURSING NOTE STANDARD TITLE: INTERNAL MEDICINE OUTPATIENT NOTE DATE OF NOTE: MAY 26, 2024@09:27 ENTRY DATE: MAY 26, 2024@09:27:10 AUTHOR: EDMOND RANGEL EXP COSIGNER: URGENCY: STATUS: COMPLETED TYPE OF VISIT: Appointment Check In Type of appointment: In-person appointment REASON FOR VISIT: scheduled visit ALLERGIES: SULFAMETHOXAZOLE (Feb 07, 2022) EMPAGLIFLOZIN (Jun 06, 2022) VITAL SIGNS: Blood Pressure: 110/73 (05/26/2024 09:22) Pulse: 88 (05/26/2024 09:22) Respiration: 19 (05/26/2024 09:22) Temperature: 98.6 F [37.0 C] (05/26/2024 09:22) Weight: 166.9 lb [75.70 kg] (05/26/2024 09:22) Height: 68 in [172.7 cm] (04/22/2024 08:40) BMI: 25.4 O2 Sat: 98% (05/26/2024 09:22) Pain: 4 (05/26/2024 09:22) PAIN SCREEN: Patient is not having significant pain that they wish to discuss with their provider today. /pablo/ EDMOND RANGEL BUSINESS DEVELOPMENT OFFICER BUSINESS DEVELOPMENT OFFICER Signed: 05/26/2024 09:[address] [facility]
--- OUTSIDE RECORDS SUMMARY | 2024-07-06 16:20 | XMS_ITS | Encounter Summary ---
Author Name [facility] [place] [facility] [place] [facility] [place] Address [address] [place] [address] Care Team Providers Care Enrollment Manager Name Role Phone SONIA PHILLIPS Primary Care [...] PART A Sep 26, 2012 PART A [id number] [phone] JUAN THOMPSON JR PATIENT MEDICARE (WNR) MEDICARE (M) PART B Sep 26, 2012 PART B [id number] [phone] JUAN THOMPSON JR PATIENT Selected Encounter This section includes the information on record at [place] for the Encounter. Date/Time Encounter Type Encounter Description Reason Pro vider Source May 26, 2024 11:23 AM Outpatient Encounter TELEPHONE/MEDICINE IHE Encounter Template Text not used by [facility] Plan of Treatment: Future Appointments (+ 6 months) and Future Tests (+/- 45 days) The Plan of Treatment section includes future care activities for the patient from all [place] [facility]. This section includes future appointments [...] AMBULATORY - [place]IC[place] [facility] Jun 04, 2024 09:30 AM AMB[place]AT[place] [facility] Jun 05, 2024 01:30 PM [place]IC[place] [facility] Jun 12, 2024 07:30 AM [place]UL[place]ORY - [place] [facility] Jun 12, 2024 08:30 AM [place]IC[place] [facility] Jun 23, 2024 10:15 AM [place]IC[place] [facility] Jul 06, 2024 08:30 AM [place]ORY - [place]ONE [place] [facility] Jul 16, 2024 07:30 AM [place]IC[place] [facility] Jul 16, 2024 08:30 AM [place] [facility] Jul 16, 2024 09:00 AM AMBULATORY [place] [facility] Jul 16, 2024 09:30 AM AMBULATORY [place] [facility] Oct 07, 2024 09:00 AM [place]IC[place] [facility] Oct 19, 2024 09:30 AM [place] [facility] Active, Pending, and Scheduled Orders This section includes a listing of several types of active, pending, and scheduled orders, including clinic medications orders, diagnostic test orders, procedure orders and consult orders; where the start date of the order is 45 days before the date of the Encounter or 45 days after the date of theEncounter. The data comes from all [facility]. Test Date/Time Test Type Test Details Facility Name Jun 19, 2024 04:32 PM Consult Order COMMUNITY CARE-NUCLEAR MEDICINE Cons [place] [facility] Lab Results: +/- 30 days [...] Range Comment Jun 12, 2024 07:22 AM [facility] PHOSPHORUS Specimen Type: PLASMA No comment entered. Ordering Provider: JAVIER MICHELLE Report Released Date/Time: May 26, 2024 09:45 AM Reporting Lab: [facility] [place] [address] Performing Lab: [facility] [place] [address] PHOSPHORUS 3.4 mg/dL 2.3-4.3 Jun 12, 2024 07:22 AM [facility] RETICS Specimen Type: BLOOD Comment: Automated Differential Performed Ordering Provider: JAVIER MICHELLE Report Released Date/Time: May 26, 2024 09:53 AM Reporting Lab: [facility] [place] [address] Performing Lab: [facility] [place] [address] ABS RETIC 0.0429 0.0300-0.1 000 .RETICULOCYTE 1.06 0.6-2.0 IMMATURE RETIC 5.9 1.0-14.0 .RETICULOCYTE HE 30.5 pg 28.2-36.6 Jun 12, 2024 07:22 AM [facility] COMPREHENSIVE METABOLIC PANEL+MG Specimen Type: PLASMA No comment entered. Ordering Provider: JAVIER MICHELLE Report Released Date/Time: May 26, 2024 09:45 AM Reporting Lab: [facility] [place] [address] Performing Lab: [facility] [place] [address] CREATININE 1.0 mg/dL 0.7-1.2 UREA NITROGEN 22 [...] 78 >60 Jun 12, 2024 07:22 AM [facility] CBC & DIFF Specimen Type: BLOOD Comment: Automated Differential Performed Ordering Provider: JAVIER MICHELLE Report Released Date/Time: May 26, 2024 09:45 AM Reporting Lab: [facility] [place] [address] Performing Lab: [facility] [place] [address] WBC 6.4 4.0-11.0 RBC 4.05 L 4.60-6.20 [...] pg 28.2-36.6 Jun 03, 2024 11:17 AM [facility] URINALYSIS Specimen Type: URINE No comment entered. Ordering Provider: LYUBOV YEUNG Report Released Date/Time: Jun 03, 2024 10:39 AM Reporting Lab: [facility] [place] [address] Performing Lab: [facility] [place] [address] URINE COLOR YELLOW SPECIFIC GRAVITY 1.018 1.003-1.03 [...] 75 NEGATIVE May 20, 2024 09:39 AM [facility] FINGERSTICK GLUCOSE Specimen Type: BLOOD Comment: Save Result Ordering Provider: TANK PHILLIPS Report Released Date/Time: May 20, 2024 03:03 PM Reporting Lab: [facility] [place] [address] Performing Lab: [facility] [place] [address] FINGERSTICK GLUCOSE 148 mg/dL H 70-100 May 13, 2024 11:44 AM [facility] KAPPA/LAMBDA LC FREE,RATIO Specimen Type: [...] therapy of these disorders. Test Performed by [facility], [employer] [facility], [address] [place] [address] Devante Meyer M.D., Ph.D., Director of Laboratories , CLIA [id number] Ordering Provider: RENUKA JOHNSON Report Released Date/Time: Apr 24, 2024 04:08 PM Reporting Lab: [facility] [place] [address] Performing Lab: [address] .KAPPA LT CHAIN,FREE 27.3 mg/L H 3.3-19.4 .LAMBDA LC,FREE 15.8 mg/L 5.7-26.3 .KAPPA/LAMBDA, FREE 1.73 H 0.26-1.65 May 13, 2024 11:44 AM [facility] LD,TOTAL Specimen Type: PLASMA No comment entered. Ordering Provider: RENUKA JOHNSON Report Released Date/Time: Apr 24, 2024 04:08 PM Reporting Lab: [facility] [place] [address] Performing Lab: [address] LD,TOTAL 141 U/L 125-220 May 13, 2024 11:44 AM [facility] URIC ACID Specimen Type: PLASMA No comment entered. Ordering Provider: RENUKA JOHNSON Report Released Date/Time: Apr 24, 2024 04:08 PM Reporting Lab: [facility] [place] [address] Performing Lab: [address] URIC ACID 3.1 mg/dL L 3.7-7.7 May 13, 2024 11:44 AM [facility] B 12 Specimen Type: SERUM No comment entered. Ordering Provider: RENUKA JOHNSON Report Released Date/Time: Apr 24, 2024 04:08 PM Reporting Lab: [facility] [place] [address] Performing Lab: [facility] [place] [address] B 12 722 pg/mL 213-816 May 13, 2024 11:44 AM [facility] FOLATE Specimen Type: SERUM No comment entered. Ordering Provider: RENUKA JOHNSON Report Released Date/Time: Apr 24, 2024 04:08 PM Reporting Lab: [facility] [place] [address] Performing Lab: [facility] [place] [address] FOLATE 14.6 ng/mL >7.0 May 13, 2024 11:44 AM [facility] PHOSPHORUS Specimen Type: PLASMA No comment entered. Ordering Provider: RENUKA JOHNSON Report Released Date/Time: Apr 24, 2024 04:08 PM Reporting Lab: [facility] [place] [address] Performing Lab: [facility] [place] [address] PHOSPHORUS 3.3 mg/dL 2.3-4.3 May 13, 2024 11:44 AM [facility] IRON GROUP Specimen Type: SERUM No comment entered. Ordering Provider: RENUKA JOHNSON Report Released Date/Time: Apr 24, 2024 04:08 PM Reporting Lab: [facility] [place] [address] Performing Lab: [facility] [place] [address] IRON 101 ug/dL 65-175 TIBC,CALCULATE D 313 ug/dL 250-425 FERRITIN pending IRON SATURATION 32 20-50 TRANSFERRIN 250 mg/dL 163-382 May 13, 2024 11:44 AM [facility] PSA Specimen Type: SERUM No comment entered. Ordering Provider: ABBY MEANS Report Released Date/Time: May 12, 2024 08:28 PM Reporting Lab: [facility] [place] [address] Performing Lab: [place] [phone] PSA 0.49 ng/mL <4.00 May 13, 2024 11:44 AM [facility] BETA 2-MICROGLOBULIN Specimen Type: SERUM No comment entered. Ordering Provider: RENUKA JOHNSON Report Released Date/Time: Apr 24, 2024 04:08 PM Reporting Lab: [facility] [place] [address] Performing Lab: [facility] [place] [address] BETA 2-MICROGLOBULI N 3.36 mg/L H 0.97-2.64 May 13, 2024 11:44 AM [facility] TOTAL IMMUNOGLOB (IGA,IGG,IGM) Specimen Type: PLASMA No comment entered. Ordering Provider: RENUKA JOHNSON Report Released Date/Time: Apr 24, 2024 04:08 PM Reporting Lab: [facility] [place] [address] Performing Lab: [facility] [place] [address] IGM 78.8 mg/dL 22.0-293.0 IGG 714.3 mg/dL 540.0-18 22 .0 IGA 123.8 mg/dL 63.0-645.0 May 13, 2024 11:44 AM [facility] TESTOSTERONE Specimen Type: SERUM No comment entered. Ordering Provider: ABBY MENAS Report Released Date/Time: May 12, 2024 08:30 PM Reporting Lab: [facility] [place] [address] Performing Lab: [facility] [place] [address] TESTOSTERONE 534 ng/dL 221-870 May 13, 2024 11:44 AM [facility] CBC & DIFF Specimen Type: BLOOD Comment: Automated Differential Performed Ordering Provider: RENUKA JOHNSON Report Released Date/Time: Apr 24, 2024 04:08 PM Reporting Lab: [facility] [place] [address] Performing Lab: [facility] [place] [address] WBC 8.3 4.0-11.0 RBC 4.04 L 4.60-6.20 [...] 0.0 0.0-0.1 May 13, 2024 11:44 AM [facility] COMPREHENSIVE METABOLIC PANEL+MG Specimen Type: PLASMA No comment entered. Ordering Provider: RENUKA JOHNSON Report Released Date/Time: Apr 24, 2024 04:08 PM Reporting Lab: [facility] [place] [address] Performing Lab: [facility] [place] [address] CREATININE 1.0 mg/dL 0.7-1.2 UREA NITROGEN 26 [...] 78 >60 May 13, 2024 11:44 AM [facility] PERIPHERAL SMEAR PATHOLOGIST REVIEW Specimen Type: BLOOD No comment entered. Ordering Provider: RENUKA JOHNSON Report Released Date/Time: May 13, 2024 01:51 PM Reporting Lab: [facility] [place] [address] Performing Lab: [facility] [place] [address] PERIPHERAL SMEAR PATHOLOGIST REVIEW SLIDES MADE Vital Signs: All taken on the encounter date This section contains inpatient and outpatient Vital Signs collected on the date of the Encounter. Date/Time Temperature Pulse Blood Pressure Respiratory Rate SP02 Pain Height Weight Body Mass Index Source May 26, 2024 09:22 AM 98.6 88 110/73 19 98 4 166.9 [facility] Social History: Smoking Status (Most current) [...] 21, 2023 10:30 AM [place]-TOBACCO FORMER USER [facility] Tobacco Use History This section includes a history of the smoking, or tobacco-related health factors, that were collected on or before the date of the Encounter. The data comes from the [place] facility where the Encounter took place. Date/Time Smoking Status/Tobacco Use Comment F pérez Aug 21, 2023 10:30 AM [place]-TOBACCO QUIT 15 YRS OR MORE [facility] Aug 15, 2022 09:00 AM VA-TOBACCO FORMER USER [facility] Aug 15, 2022 09:00 AM [...] the Encounter. The data comes from all [place] treatment facilities. Date/Time Radiology Report Provider Source May 20, 2024 09:[address] BODY W/O CO NTRAST (P): JUAN THOMPSON [id number] -1945 M Exm Date: MAY 20, 2024@09:14 Req Phys: LYUBOV YEUNG Pat Loc: [facility] APACT L RES 03 WH 4F (Req' Img Loc: [facility] Service: [place] [address] (Case 190 COMPLETE) SKULL-THIGH PET IMAGE W/CT (NM Detailed) CPT:06523 Reason for Study: eval for malignancy (Case [...] pager listed below: User placing orders pager: [phone] LAST CREATININE 1.0 (04/22/24) Report Status: Verified Date Reported: MAY 20, 2024 Date Verified: MAY 20, 2024 Supervisor [place] E-Sig:/ES/RUFUS GROVES MD, FACR, CCD Report: PET/CT [...] Staff: RUFUS GROVES MD, FACR, STAFF RADIOLOGIST (Supervisor [place]) /BSF RUFUS GROVES [facility] Pathology Reports: +/- 30 days [...] the Encounter. The data comes from all [place] treatment facilities. Date/Time Pathology Report Provider Source Jun 16, 2024 12:06 PM LR SURGICAL PATHOLOGY REPORT: LOCAL TITLE: LR SURGICAL PATHOLOGY REPORT STANDARD TITLE: PATHOLOGY REPORT DATE OF NOTE: JUN 16, 2024@12:06:01 ENTRY DATE: JUN 16, 2024@12:06:01 AUTHOR: BRIELLE AIMN COSIGNER: URGENCY: STATUS: COMPLETED $APHDR Reporting Lab: [facility] [CLIA# [id number]] [place] [address] - - - - - - - [...] in cassette B. Grossing performed by: DAVID, Wood Pile Driver Operator Entered by: DAVID, Wood Pile Driver Operator Grossing confirmed by: Brielle Amin, Hematopathologist This report includes the results of laboratory tests utilizing Analyte Specific Reagents or commercially available antibodies (Haslett and Lambda CISH Probes). These tests have [...] see also concurrent negative flow cytometry study ([id number]). Imaging studies concerning for possible lytic lesions [...] controls for CD3, CD20, CD34, CD61, CD138, Haslett and lambda light chains, and pankeratin are [...] MD STAFF PATHOLOGIST, PATHOLOGY & LABORATORY [facility] Signed Jun 16, 2024@12:06 Performing Laboratory: Surgical Pathology Report Performed By: [facility] [CLIA# [id number]] [place] [address] $FTR - - - - - - - - - - - - - - - - - - - - - - - - - - - - - - - - - - - - - - - - (End of report) BRIELLE AMIN MD [facility] Date Jun 16, 2024 - - - - - - - - - - - - - - - - - - - - - - - - - - - - - - - - - - - - - - - - JUAN THOMPSON JR STANDARD FORM 515 ID:[id number] SEX:M :1945 AGE: 78 LOC:[id number] PCP: Sonia Phillips /pablo/ BRIELLE AMIN MD STAFF PATHOLOGIST, PATHOLOGY & LABORATORY [facility] Signed: 06/16/2024 12:06 BRIELLE AMIN [facility] Jun 16, 2024 12:02 PM LR SURGICAL PATHOLOGY REPORT: LOCAL TITLE: LR SURGICAL PATHOLOGY REPORT STANDARD TITLE: PATHOLOGY REPORT DATE OF NOTE: JUN 16, 2024@12:02:40 ENTRY DATE: JUN 16, 2024@12:02:40 AUTHOR: BRIELLE AMIN EXP COSIGNER: URGENCY: STATUS: COMPLETED $APHDR Reporting Lab: [facility] [CLIA# [id number]] [place] [address] - - - - - - - [...] morphologic correlation see bone marrow biopsy report [id number]. Summary: On CD45 vs. side scatter analysis, [...] MD STAFF PATHOLOGIST, PATHOLOGY & LABORATORY [facility] Signed Jun 16, 2024@12:02 Performing Laboratory: Surgical Pathology Report Performed By: [facility] [CLIA# [id number]] [place] [address] $FTR - - - - - - - - - - - - - - - - - - - - - - - - - - - - - - - - - - - - - - - - (End of report) BRIELLE AMIN MD [facility] Date Jun 16, 2024 - - - - - - - - - - - - - - - - - - - - - - - - - - - - - - - - - - - - - - - - JUAN THOMPSON JR STANDARD FORM 515 ID:[id number] SEX:M :1945 AGE: 78 LOC:[id number] PCP: Sonia Phillips /aneesh AMIN MD STAFF PATHOLOGIST, PATHOLOGY & LABORATORY [facility] Signed: 06/16/2024 12:02 BRIELLE AMIN [facility] May 14, 2024 10:47 AM LR SURGICAL PATHOLOGY REPORT: LOCAL TITLE: LR SURGICAL PATHOLOGY REPORT STANDARD TITLE: PATHOLOGY REPORT DATE OF NOTE: MAY 14, 2024@10:47:04 ENTRY DATE: MAY 14, 2024@10:47:04 AUTHOR: VIPUL DASILVA COSIGNER: URGENCY: STATUS: COMPLETED $APHDR Reporting Lab: [facility] [CLIA# [id number]] [place] [address] - - - - - - - [...] - PATHOLOGY REPORT Accession No. [id number] - - - - - - - [...] Performing Laboratory: Surgical Pathology Report Performed By: [facility] [CLIA# [id number]] [place] [address] $FTR - - - - - - [...] - - JUAN THOMPSON STANDARD FORM 515 ID:[id number] SEX:M :1945 AGE: 78 LOC:[id number] PCP: Sonia Phillips /pablo/ VIPUL DASILVA MD STAFF PATHOLOGIST Signed: 05/14/2024 10:47 VIPUL DASILVA [facility] Encounter Notes: All associated encounter notes This section contains the clinical notes associated to the Encounter. Date/Time Encounter Note(s) Provider Source May 26, 2024 11:23 AM SOCIAL WORK NOTE: LOCAL TITLE: SOCIAL WORK PROGRESS NOTE STANDARD TITLE: SOCIAL WORK NOTE DATE OF NOTE: MAY 26, 2024@11:23 ENTRY DATE: MAY 26, 2024@13:11:11 AUTHOR: STACEY MONACO EXP COSIGNER: URGENCY: STATUS: COMPLETED SOCIAL WORK PROGRESS NOTE Has ADDENDA PCSW-Hem/Onc. Ceo And President copied to addendum to 05/26/24 Heme/Onc Clinic Note regarding guardianship for . Review of records shows has been under guardianship with [employer] [facility] since 05/01/21. Recent records in CPRS reference Nathalie Cline as current guardian Cell as his current guardian. Reviewed guardianship flag, Ms. Cline is not one of the four individuals named. The cell phone number above is listed as the cell phone number for 's guardian on the guardianship flag. Left HIPPA compliant vm message for Ms. Cline inviting return call, provided direct contact information and tour. When we connected, functional tester typewriters introduced self, role, and purpose of call. Ms. Cline confirms she works with [employer] [facility] and is 's current guardian and must consent for 's medical care. She said that she often does phone consents if needed. Ms. Cline said 3 of the 4 individuals initially listed on the Guardianship flag no longer work with [employer]. She confirmed address, phone, cell, and fax as listed on guardianship flag. Ceo And President requested updated guardianship papework and Ms. Cline will fax to functional tester typewriters's attention. She is driving and unable to take down [facility] fax number, agreed functional tester typewriters could call back and leave it on her voicemail and this was done. Ceo And President will fax her [facility] Form [id number] Request for and Authorization to Release Health Information for completion and return. Faxed [facility] Form [id number] to Attention of Nathalie at [phone]. PCSW remains available. /es/ TISHA KRUSE LICSW [facility] Signed: 05/26/2024 13:22 06/04/2024 ADDENDUM STATUS: COMPLETED Entered Guardianship--Historical note dated 06/04/24 with updated information showing Nathalie Cline as 's current guardian through [employer] [facility]. Forms placed in mailbox for TISHA Hernandez LICSW who manages Guardianship flag. Also received ENOCH form from [employer] [facility] and this was placed in ENOCH box to be scanned into his record. PCSW remains available. /pablo/ TISHA KRUSE LICSW Primary Care [facility] Diver Signed: 06/04/2024 17:17 STACEY MONACO [facility]
--- OUTSIDE RECORDS SUMMARY | 2024-07-06 16:20 | XMS_ITS | Encounter Summary ---
Author Name [facility] [place] [facility] [place] Address [address] [place] [address] Care Team Providers Care Medical Accountant Name Role Phone SONIA PHILLIPS Primary Care [...] PART A Sep 26, 2012 PART A [id number] [phone] JUAN THOMPSON JR PATIENT MEDICARE (WNR) MEDICARE (M) PART B Sep 26, 2012 PART B [id number] [phone] JUAN THOMPSON JR PATIENT Selected Encounter This section includes the information on record at [place] for the Encounter. Date/Time Encounter Type Encounter Description Reason Provider Source May 14, 2024 10:47 AM Outpatient Encounter EVENT (HISTORICAL) VIPUL DASILVA Encounter Template Text not used by [place] Plan of Treatment: Future Appointments (+ 6 months) and Future Tests (+/- 45 days) The Plan of Treatment section includes [facility] care [facility] [place] [facility] This section includes future appointments [...] 2024 09:45 AM AM[place] [facility] May 26, 2024 09:15 AM [facility] Jun 03, 2024 10:00 [facility] Jun 04, 2024 09:30 AM [facility] [place] [facility] Jun 05[facility] 2024 01:30 [place] [facility] Jun 12, 2024 07:30 AM [place] [facility] Jun 12, 2024 08:30 AM [place] [facility] Jun 23, 2024 10:15 AM [place] [place] [facility] Jul 06, 2024 08:30 AM [place] [facility] Jul 16, 2024 07:30 AM [place] [place] [facility] Jul 16, 2024 08:30 AM [place] [facility] Jul 16, 2024 09:00 AM [place] [facility] [facility] Jul 16, 2024 09:30 AM [place] [facility] [facility] Oct 07, 2024 09:00 AM [place] [facility] Oct 19, 2024 09:30 AM [place] [facility] Active, Pending, and Scheduled Orders This [...] PM Consult Order COMMUNITY CARE-NUCLEAR MEDICINE Cons Siene Maker's Choice [facility] Lab Results: +/- 30 [...] Range Comment Jun 12, 2024 07:22 AM [facility] PHOSPHORUS Specimen Type: PLASMA No comment entered. Ordering Provider: JAVIER MICHELLE Report Released Date/Time: May 26, 2024 09:45 AM Reporting Lab: [facility] [address] Performing Lab: [facility] [address] PHOSPHORUS 3.4 mg/dL 2.3-4.3 Jun 12, 2024 07:22 AM [facility] RETICS Specimen Type: BLOOD Comment: Automated Differential Performed Ordering Provider: JAVIER MICHELLE Report Released Date/Time: May 26, 2024 09:53 AM Reporting Lab: [facility] [address] Performing Lab: [facility] [address] ABS RETIC 0.0429 0.0300-0.1 000 .RETICULOCYTE 1.06 0.6-2.0 IMMATURE RETIC 5.9 1.0-14.0 .RETICULOCYTE HE 30.5 pg 28.2-36.6 Jun 12, 2024 07:22 AM [facility] COMPREHENSIVE METABOLIC PANEL+MG Specimen Type: PLASMA No comment entered. Ordering Provider: JAVIER MICHELLE Report Released Date/Time: May 26, 2024 09:45 AM Reporting Lab: [facility] [address] Performing Lab: [facility] [address] CREATININE 1.0 mg/dL 0.7-1.2 UREA NITROGEN 22 [...] 78 >60 Jun 12, 2024 07:22 AM [facility] CBC & DIFF Specimen Type: BLOOD Comment: Automated Differential Performed Ordering Provider: JAVIER MICHELLE Report Released Date/Time: May 26, 2024 09:45 AM Reporting Lab: [facility] [address] Performing Lab: [facility] [address] WBC 6.4 4.0-11.0 RBC 4.05 L 4.60-6.20 [...] pg 28.2-36.6 Jun 03, 2024 11:17 AM [facility] URINALYSIS Specimen Type: URINE No comment entered. Ordering Provider: LYUBOV YEUNG Report Released Date/Time: Jun 03, 2024 10:39 AM Reporting Lab: [facility] [address] Performing Lab: [facility] [address] URINE COLOR YELLOW SPECIFIC GRAVITY 1.018 1.003-1.03 [...] 75 NEGATIVE May 20, 2024 09:39 AM [facility] FINGERSTICK GLUCOSE Specimen Type: BLOOD Comment: Save Result Ordering Provider: TANK PHILLIPS Report Released Date/Time: May 20, 2024 03:03 PM Reporting Lab: [facility] [address] Performing Lab: [facility] [address] FINGERSTICK GLUCOSE 148 mg/dL H 70-100 May 13, 2024 11:44 AM [facility] KAPPA/LAMBDA LC FREE,RATIO Specimen Type: SERUM [...] therapy of these disorders. Test Performed by [employer] [place], [facility], [address] [place], [place] Devante Meyer M.D., Ph.D., Director of Laboratories , CLIA [id number] Ordering Provider: RENUKA JOHNSON Report Released Date/Time: Apr 24, 2024 04:08 PM Reporting Lab: [facility] [address] Performing Lab: [place] [id number] [facility] .KAPPA LT CHAIN,FREE 27.3 mg/L H 3.3-19.4 .LAMBDA LC,FREE 15.8 mg/L 5.7-26.3 .KAPPA/LAMBDA, FREE 1.73 H 0.26-1.65 May 13, 2024 11:44 AM [facility] LD,TOTAL Specimen Type: PLASMA No comment entered. Ordering Provider: RENUKA JOHNSON Report Released Date/Time: Apr 24, 2024 04:08 PM Reporting Lab: [facility] [address] Performing Lab: [facility] [address] LD,TOTAL 141 U/L 125-220 May 13, 2024 11:44 AM [facility] URIC ACID Specimen Type: PLASMA No comment entered. Ordering Provider: RENUKA JOHNSON Report Released Date/Time: Apr 24, 2024 04:08 PM Reporting Lab: [facility] [address] Performing Lab: [facility] [address] URIC ACID 3.1 mg/dL L 3.7-7.7 May 13, 2024 11:44 AM [facility] B 12 Specimen Type: SERUM No comment entered. Ordering Provider: RENUKA JOHNSON Report Released Date/Time: Apr 24, 2024 04:08 PM Reporting Lab: [facility] [address] Performing Lab: [facility] [address] B 12 722 pg/mL 213-816 May 13, 2024 11:44 AM [facility] FOLATE Specimen Type: SERUM No comment entered. Ordering Provider: RENUKA JOHNSON Report Released Date/Time: Apr 24, 2024 04:08 PM Reporting Lab: [facility] [address] Performing Lab: [facility] [address] FOLATE 14.6 ng/mL >7.0 May 13, 2024 11:44 AM [facility] PHOSPHORUS Specimen Type: PLASMA No comment entered. Ordering Provider: RENUKA JOHNSON Report Released Date/Time: Apr 24, 2024 04:08 PM Reporting Lab: [facility] [address] Performing Lab: [facility] [address] PHOSPHORUS 3.3 mg/dL 2.3-4.3 May 13, 2024 11:44 AM [facility] IRON GROUP Specimen Type: SERUM No comment entered. Ordering Provider: RENUKA JOHNSON Report Released Date/Time: Apr 24, 2024 04:08 PM Reporting Lab: [facility] [address] Performing Lab: [facility] [address] IRON 101 ug/dL 65-175 TIBC,CALCULATE D 313 ug/dL 250-425 FERRITIN pending IRON SATURATION 32 20-50 TRANSFERRIN 250 mg/dL 163-382 May 13, 2024 11:44 AM [facility] BETA 2-MICROGLOBULIN Specimen Type: SERUM No comment entered. Ordering Provider: RENUKA JOHNSON Report Released Date/Time: Apr 24, 2024 04:08 PM Reporting Lab: [facility] [address] Performing Lab: [facility] [address] BETA 2-MICROGLOBULI N 3.36 mg/L H 0.97-2.64 May 13, 2024 11:44 AM [facility] PSA Specimen Type: SERUM No comment entered. Ordering Provider: ABBY MEANS Report Released Date/Time: May 12, 2024 08:28 PM Reporting Lab: [facility] [address] Performing Lab: [facility] [address] PSA 0.49 ng/mL <4.00 May 13, 2024 11:44 AM [facility] TOTAL IMMUNOGLOB (IGA,IGG,IGM) Specimen Type: PLASMA No comment entered. Ordering Provider: RENUKA JOHNSON Report Released Date/Time: Apr 24, 2024 04:08 PM Reporting Lab: [facility] [address] Performing Lab: [facility] [address] IGM 78.8 mg/dL 22.0-293.0 IGG 714.3 mg/dL 540.0-18 22 .0 IGA 123.8 mg/dL 63.0-645.0 May 13, 2024 11:44 AM [facility] TESTOSTERONE Specimen Type: SERUM No comment entered. Ordering Provider: ABBY MEANS Report Released Date/Time: May 12, 2024 08:30 PM Reporting Lab: [facility] [address] Performing Lab: [facility] [address] TESTOSTERONE 534 ng/dL 221-870 May 13, 2024 11:44 AM [facility] CBC & DIFF Specimen Type: BLOOD Comment: Automated Differential Performed Ordering Provider: RENUKA JOHNSON Report Released Date/Time: Apr 24, 2024 04:08 PM Reporting Lab: [facility] [address] Performing Lab: [facility] [address] WBC 8.3 4.0-11.0 RBC 4.04 L 4.60-6.20 [...] 0.0 0.0-0.1 May 13, 2024 11:44 AM [facility] COMPREHENSIVE METABOLIC PANEL+MG Specimen Type: PLASMA No comment entered. Ordering Provider: RENUKA JOHNSON Report Released Date/Time: Apr 24, 2024 04:08 PM Reporting Lab: [facility] [address] Performing Lab: [facility] [address] CREATININE 1.0 mg/dL 0.7-1.2 UREA NITROGEN 26 [...] 78 >60 May 13, 2024 11:44 AM [facility] PERIPHERAL SMEAR PATHOLOGIST REVIEW Specimen Type: BLOOD No comment entered. Ordering Provider: RENUKA JOHNSON Report Released Date/Time: May 13, 2024 01:51 PM Reporting Lab: [facility] [address] Performing Lab: [facility] [address] PERIPHERAL SMEAR PATHOLOGIST REVIEW SLIDES MADE Apr 22, 2024 10:41 AM [facility] ELP/IMMFIX,SERUM PANEL Specimen Type: SERUM Comment: Decreased gamma fraction may be seen in certain lymphoproliferat jeff disorders. Recommend submitting a 24 hr urine for ELP and immunofixation tests. Ordering Provider: LYUBOV YEUNG Report Released Date/Time: Apr 22, 2024 10:20 AM Reporting Lab: [facility] [address] Performing Lab: [facility] [address] PROTEIN,TOTAL 6.0 g/dL L 6.4-8.3 .ALBUMIN FRACTION 3.63 g/dL L 3.66-4.78 .ALPHA 1 FRACTION 0.37 g/dL 0.14-0.38 .ALPHA 2 FRACTION 0.81 g/dL 0.50-0.90 .BETA 1 FRACTION 0.34 g/dL 0.33-0.55 .BETA 2 FRACTION 0.28 g/dL 0.20-0.52 .GAMMA FRACTION 0.57 g/dL L 0.58-1.72 .TOTAL PROTEIN 6.0 g/dL 6.0-8.3 .INTERPRETATIO N NO MONOCLONALS DETECTED Apr 22, 2024 10:32 AM [facility] ELP/IMMFIX,URINE RANDOM PANEL Specimen Type: URINE No comment entered. Ordering Provider: LYUBOV YEUNG Report Released Date/Time: Apr 22, 2024 10:20 AM Reporting Lab: [facility] [address] Performing Lab: [facility] [address] PROTEIN,T. RANDOM UR <6.8 mg/dL <14.0 .INTERPRETATIO N,UR NO MONOCLONALS DETECTED Apr 22, 2024 08:15 AM [facility] CBC Specimen Type: BLOOD No comment entered. Ordering Provider: LYUBOV YEUNG Report Released Date/Time: Oct 09, 2023 11:10 AM Reporting Lab: [facility] [address] Performing Lab: [facility] [address] WBC 9.8 4.0-11.0 RBC 4.45 L 4.60-6.20 HGB 13.0 g/dL L 13.5-17.9 HCT 40.2 L 41-54 MCV 90.3 fL 80-100 MCH 29.2 pg 27-33 MCHC 32.3 g/dL 32.0-37.5 PLT 328 150-400 MPV 9.7 fL 9.1-13.0 RDW 14.3 11.5-14.5 Apr 22, 2024 08:15 AM [facility] BASIC METABOLIC PANEL+MG Specimen Type: PLASMA No comment entered. Ordering Provider: LYUBOV YEUNG Report Released Date/Time: Oct 09, 2023 11:10 AM Reporting Lab: [facility] [address] Performing Lab: [facility] [address] CREATININE 1.0 mg/dL 0.7-1.2 UREA NITROGEN 18 mg/dL 8-26 GLUCOSE 217 mg/dL H 70-100 SODIUM 144 mmol/L 136-145 POTASSIUM 4.3 mmol/L 3.5-5.1 CHLORIDE 106 mmol/L 98-107 CO2 31 mmol/L H 22-29 CALCIUM 9.6 mg/dL 8.4-10.2 MAGNESIUM 1.4 mg/dL L 1.6-2.6 ANION GAP 7 mmol/L 5-15 .CREAT EGFR(CKD-EPI) 78 >60 Apr 20, 2024 08:28 AM [facility] POC CREATININE Specimen Type: BLOOD No comment entered. Ordering Provider: TANK PHILLIPS Report Released Date/Time: Apr 20, 2024 08:30 AM Reporting Lab: [facility] [address] Performing Lab: [facility] [address] POC CREATININE 1.1 mg/dL 0.6-1.3 Social History: Smoking Status (Most current) and Tobacco Use (All prior to encounter date) This section includes the most current, and the historical, smoking and tobacco- related health factors from the [place] facility where the Encounter took place. Current Smoking Status This section includes the most current smoking, or tobacco-related health factor, from the [place] facility where the Encounter took place. Date/Time Current Smoking Status Comment Facil ity Aug 21, 2023 10:30 AM [place] FORMER USER [facility] [...] YRS OR MORE [facility] Aug 15, 2022 09:00 AM [place]-TOBAC[place] FORMER USER [facility] Aug 15, 2022 09:00 AM [place] [...] 08:36 AM FORMER TOBACCO USER 7Y OR [facility] Radiology Reports: +/- 30 days of [...] the Encounter. The data comes from all [place] treatment facilities. Date/Time Radiology Report Provider Source May 20, 2024 09:[address] BODY W/O CONTRAST (P): JUAN THOMPSON [id number] -1945 M Exm Date: MAY 20, 2024@09:14 Req Phys: LYUBOV YEUNG Loc: [facility] APACT L RES 03 WH 4F (Req' Img Loc: [facility] MED Service: [place] [address] (Case [id number] COMPLETE) SKULL-THIGH PET IMAGE W/CT (NM Detailed) CPT:82976 Reason for Study: eval for malignancy (Case [...] pager listed below: User placing orders pager: [phone] LAST CREATININE 1.0 (04/22/24) Report Status: Verified Date Reported: MAY 20, 2024 Date Verified: MAY 20, 2024 Hospital Personnel Director E-Sig:/ES/RUFUS GROVES MD, FACR, CCD Report: [...] Staff: RUFUS GROVES MD, FACR, STAFF RADIOLOGIST (Hospital Personnel Director) /BSF RUFUS GROVES [facility] Apr 20, 2024 08:[address] (CAP) CHEST/ABD/PELVIS (P): JUAN THOMPSON [id number] 1945 M Exm Date: APR 20, 2024@08:07 Req Phys: RACHEL WATSON Pat Loc: [facility] APACT L RES 03 WH 4F (Req' Img Loc: CT IMAGING Service: [place] [address] (Case [id number] COMPLETE) CT (CAP) CHEST W CONTRAST (CT Detailed) CPT:93537 Contrast Media : Non-ionic Iodinated Reason for Study: 78M with weight loss & lymphadenopathy, CT for malignancy eval (Case [id number] COMPLETE) CT (CAP) ABDOMEN/PELVIS W CONTRAS(CT Detailed) CPT:96797 Contrast Media : Non-ionic Iodinated Clinical History: [...] any questions or notifications of critical findings: [phone] If ordering provider is a trainee, enter [...] PLASMA .CREAT EGFR(CKD-E 63 Ref: >=60 Allergies: ([place] only) SULFAMETHOXAZOLE (Feb 07, 2022) EMPAGLIFLOZIN (Jun 06, 2022) Report Status: Verified Date Reported: APR 20, 2024 Date Verified: APR 20, 2024 Hospital Personnel Director E-Sig:/ES/JONATAN MILLER MD Report: CT CHEST, ABDOMEN [...] Primary Interpreting Staff: JONATAN MILLER MD, RADIOLOGIST (Hospital Personnel Director) [facility] Reports: +/- 30 days of [...] the Encounter. The data comes from all [place] treatment facilities. Date/Time Pathology Report Provider Source May 14, 2024 10:47 AM [facility] SURGICAL PATHOLOGY REPORT: LOCAL TITLE: LR SURGICAL PATHOLOGY REPORT STANDARD TITLE: PATHOLOGY REPORT DATE OF NOTE: MAY 14, 2024@10:47:04 ENTRY DATE: MAY 14, 2024@10:47:04 AUTHOR: VIPUL DASILVA COSIGNER: URGENCY: STATUS: COMPLETED $APHDR Reporting Lab: [facility] [CLIA# [id number]] [place] [address] - - - - - - - [...] Performing Laboratory: Surgical Pathology Report Performed By: [facility] [CLIA# [id number]] [place] [address] $FTR - - - - - - [...] - JUAN THOMPSON JR STANDARD FORM 515 ID:[id number] SEX:M :1945 AGE: 78 LOC:85670 PCP: Sonia Phillips /pablo/ VIPUL DASILVA MD STAFF PATHOLOGIST Signed: 05/14/2024 10:47 VIPUL DASILVA [facility] Encounter Notes: All associated encounter notes This section contains the clinical notes associated to the Encounter. Date/Time Encounter Note(s) Provider Source May 14, 2024 10:47 AM PATHOLOGY REPORT: LOCAL TITLE: LR SURGICAL PATHOLOGY REPORT STANDARD TITLE: PATHOLOGY REPORT DATE OF NOTE: MAY 14, 2024@10:47:04 ENTRY DATE: MAY 14, 2024@10:47:04 AUTHOR: VIPUL DASILVA EXP COSIGNER: URGENCY: STATUS: COMPLETED $APHDR Reporting Lab: [facility] [CLIA# [id number]] [place] [address] - - - - - - - [...] Performing Laboratory: Surgical Pathology Report Performed By: [facility] [CLIA# [id number]] [place] [address] $FTR - - - - - - [...] - JUAN THOMPSON JR STANDARD FORM 515 ID:[id number] SEX:M :1945 AGE: 78 LOC:58761 PCP: Sonia Phillips /pablo/ VIPUL DASILVA MD STAFF PATHOLOGIST Signed: 05/14/2024 10:47 VIPUL DASILVA [facility]
--- OUTSIDE RECORDS SUMMARY | 2024-07-06 16:21 | XMS_ITS | Encounter Summary ---
Author Name [facility] [place] [facility] [place] [facility] [place] [facility] [place] Address [address] [place] [address] Care Team Providers Care Authors Motivational Name Role Phone SONIA PHILLIPS Primary Care Provider TUAN Mayfield Unavailable Unavailable Insurance Providers: All historical [...] PART A Sep 26, 2012 PART A [id number] [facility] [phone] JUAN THOMPSON JR PATIENT MEDICARE (WNR) MEDICARE (M) PART B Sep 26, 2012 PART B [id number] [phone] JUAN THOMPSON JR PATIENT Selected Encounter This section includes the information on record at [place] for the Encounter. Date/Time Encounter Type Encounter Description Reason Provider Source Jun 03, 2024 10:00 AM OFFICE O/P EST MOD 30 MIN PRIMARY CARE/MEDICINE ICD-10-CM R63.4 Abnormal weight loss LINDA BOOGIE I IHE Encounter Template Text not used by [place] Assessments - Encounter Diagnoses This section includes the primary and secondary diagnoses documented for the Encounter. Date/Time Primary/Secondary Diagnosis Diagnosis Name Provider Source Jun 03, 2024 12:20 PM PRIMARY Abnormal weight loss WESTON BOOGIE GURINDER [facility] Jun 03, 2024 12:20 PM SECONDARY Encounter for immunization SUSAN MEIER [facility] Plan of Treatment: Future Appointments (+ 6 months) and Future Tests (+/- 45 days) The Plan of Treatment section includes future care activities for the patient from all [place] [facility]. This section includes future appointments and future orders which are active, pending or scheduled. Future Appointments This section includes appointments that were scheduled to occur 6 months from the date of the Encounter, up to a maximum of 20 appointments. The data comes from all [place] treatment facilities. Appointment Date/Time Appointment Type Appointme nt Facility Name Jun 04, 2024 09:30 AM AMBULATORY [place]AT[place] [facility] Jun 05, 2024 01:30 PM [facility] Jun 12, 2024 07:30 AM AMBULATORY - NONE [facility] Jun 12, 2024 08:30 AM [facility] Jun 23, 2024 10:15 AM [facility] Jul 06, 2024 08:30 AM [facility] Jul 16, 2024 07:30 AM [facility] Jul 16, 2024 08:30 AM AMBULATORY - MEDICINE [facility] Jul 16, 2024 09:00 AM AMBULATORY [place]AT[place] [facility] Jul 16, 2024 09:30 AM AMBULATORY [place]IATRY [place] [facility] Oct 07, 2024 09:00 AM [facility] Oct 19, 2024 09:30 AM AMBULATORY - NEUROLOGY [facility] Active, Pending, and [...] of theEncounter. The data comes from all [place] treatment facilities. Test Date/Time Test Type Test Details Facility Name Jun 19, 2024 04:32 PM Consult Order COMMUNITY CARE-NUCLEAR MEDICINE Cons Inspector [employer] [facility] Lab Results: +/- 30 days of [...] Range Comment Jun 12, 2024 07:22 AM [facility] PHOSPHORUS Specimen Type: PLASMA No comment entered. Ordering Provider: JAVIER MICHELLE Report Released Date/Time: May 26, 2024 09:45 AM Reporting Lab: [facility] [address] Performing Lab: [facility] [address] PHOSPHORUS 3.4 mg/dL 2.3-4.3 Jun 12, 2024 07:22 AM [facility] RETICS Specimen Type: BLOOD Comment: Automated Differential Performed Ordering Provider: JAVIER MICHELLE Report Released Date/Time: May 26, 2024 09:53 AM Reporting Lab: [facility] [address] Performing Lab: [facility] [address] ABS RETIC 0.0429 0.0300-0.1 000 .RETICULOCYTE 1.06 0.6-2.0 IMMATURE RETIC 5.9 1.0-14.0 .RETICULOCYTE HE 30.5 pg 28.2-36.6 Jun 12, 2024 07:22 AM [facility] COMPREHENSIVE METABOLIC PANEL+MG Specimen Type: PLASMA No comment entered. Ordering Provider: JAVIER MICHELLE Report Released Date/Time: May 26, 2024 09:45 AM Reporting Lab: [facility] [address] Performing Lab: [facility] [address] CREATININE 1.0 mg/dL 0.7-1.2 UREA NITROGEN 22 [...] 78 >60 Jun 12, 2024 07:22 AM [facility] CBC & DIFF Specimen Type: BLOOD Comment: Automated Differential Performed Ordering Provider: JAVIER MICHELLE Report Released Date/Time: May 26, 2024 09:45 AM Reporting Lab: [facility] [address] Performing Lab: [facility] [address] WBC 6.4 4.0-11.0 RBC 4.05 L 4.60-6.20 [...] pg 28.2-36.6 Jun 03, 2024 11:17 AM [facility] URINALYSIS Specimen Type: URINE No comment entered. Ordering Provider: TUAN YEUNG Report Released Date/Time: Jun 03, 2024 10:39 AM Reporting Lab: [facility] [address] Performing Lab: [facility] [address] URINE COLOR YELLOW SPECIFIC GRAVITY 1.018 1.003-1.03 [...] 75 NEGATIVE May 20, 2024 09:39 AM [facility] FINGERSTICK GLUCOSE Specimen Type: BLOOD Comment: Save Result Ordering Provider: TANK PHILLIPS Report Released Date/Time: May 20, 2024 03:03 PM Reporting Lab: [facility] [address] Performing Lab: [facility] [address] FINGERSTICK GLUCOSE 148 mg/dL H 70-100 May 13, 2024 11:44 AM [facility] KAPPA/LAMBDA LC FREE,RATIO Specimen Type: SERUM [...] therapy of these disorders. Test Performed by [facility], [facility], [address] [place], [place] Devante Meyer M.D., Ph.D., Director of Laboratories , CLIA [id number] Ordering Provider: RENUKA JOHNSON Report Released Date/Time: Apr 24, 2024 04:08 PM Reporting Lab: [facility] [address] Performing Lab: [facility] [address] [facility] .KAPPA LT CHAIN,FREE 27.3 mg/L H 3.3-19.4 .LAMBDA LC,FREE 15.8 mg/L 5.7-26.3 .KAPPA/LAMBDA, FREE 1.73 H 0.26-1.65 May 13, 2024 11:44 AM [facility] LD,TOTAL Specimen Type: PLASMA No comment entered. Ordering Provider: RENUKA JOHNSON Report Released Date/Time: Apr 24, 2024 04:08 PM Reporting Lab: [facility] [address] Performing Lab: [facility] [address] LD,TOTAL 141 U/L 125-220 May 13, 2024 11:44 AM [facility] URIC ACID Specimen Type: PLASMA No comment entered. Ordering Provider: RENUKA JOHNSON Report Released Date/Time: Apr 24, 2024 04:08 PM Reporting Lab: [facility] [address] Performing Lab: [facility] [address] URIC ACID 3.1 mg/dL L 3.7-7.7 May 13, 2024 11:44 AM [facility] B 12 Specimen Type: SERUM No comment entered. Ordering Provider: RENUKA JOHNSON Report Released Date/Time: Apr 24, 2024 04:08 PM Reporting Lab: [facility] [address] Performing Lab: [facility] [address] B 12 722 pg/mL 213-816 May 13, 2024 11:44 AM [facility] FOLATE Specimen Type: SERUM No comment entered. Ordering Provider: RENUKA JOHNSON Report Released Date/Time: Apr 24, 2024 04:08 PM Reporting Lab: [facility] [address] Performing Lab: [facility] [address] FOLATE 14.6 ng/mL >7.0 May 13, 2024 11:44 AM [facility] PHOSPHORUS Specimen Type: PLASMA No comment entered. Ordering Provider: RENUKA JOHNSON Report Released Date/Time: Apr 24, 2024 04:08 PM Reporting Lab: [facility] [address] Performing Lab: [facility] [address] PHOSPHORUS 3.3 mg/dL 2.3-4.3 May 13, 2024 11:44 AM [facility] IRON GROUP Specimen Type: SERUM No comment entered. Ordering Provider: RENUKA JOHNSON Report Released Date/Time: Apr 24, 2024 04:08 PM Reporting Lab: [facility] [address] Performing Lab: [facility] [address] IRON 101 ug/dL 65-175 TIBC,CALCULATE D 313 ug/dL 250-425 FERRITIN pending IRON SATURATION 32 20-50 TRANSFERRIN 250 mg/dL 163-382 May 13, 2024 11:44 AM [facility] BETA 2-MICROGLOBULIN Specimen Type: SERUM No comment entered. Ordering Provider: RENUKA JOHNSON Report Released Date/Time: Apr 24, 2024 04:08 PM Reporting Lab: [facility] [address] Performing Lab: [facility] [address] BETA 2-MICROGLOBULI N 3.36 mg/L H 0.97-2.64 May 13, 2024 11:44 AM [facility] PSA Specimen Type: SERUM No comment entered. Ordering Provider: ABBY MEANS Report Released Date/Time: May 12, 2024 08:28 PM Reporting Lab: [facility] [address] Performing Lab: [facility] [address] PSA 0.49 ng/mL <4.00 May 13, 2024 11:44 AM [facility] TOTAL IMMUNOGLOB (IGA,IGG,IGM) Specimen Type: PLASMA No comment entered. Ordering Provider: RENUKA JOHNSON Report Released Date/Time: Apr 24, 2024 04:08 PM Reporting Lab: [facility] [address] Performing Lab: [facility] [address] IGM 78.8 mg/dL 22.0-293.0 IGG 714.3 mg/dL 540.0-18 22 .0 IGA 123.8 mg/dL 63.0-645.0 May 13, 2024 11:44 AM [facility] TESTOSTERONE Specimen Type: SERUM No comment entered. Ordering Provider: ABBY MEANS Report Released Date/Time: May 12, 2024 08:30 PM Reporting Lab: [facility] [address] Performing Lab: [facility] [address] TESTOSTERONE 534 ng/dL 221-870 May 13, 2024 11:44 AM [facility] CBC & DIFF Specimen Type: BLOOD Comment: Automated Differential Performed Ordering Provider: RENUKA JOHNSON Report Released Date/Time: Apr 24, 2024 04:08 PM Reporting Lab: [facility] [address] Performing Lab: [facility] [address] WBC 8.3 4.0-11.0 RBC 4.04 L 4.60-6.20 [...] 0.0 0.0-0.1 May 13, 2024 11:44 AM [facility] COMPREHENSIVE METABOLIC PANEL+MG Specimen Type: PLASMA No comment entered. Ordering Provider: RENUKA JOHNSON Report Released Date/Time: Apr 24, 2024 04:08 PM Reporting Lab: [facility] [address] Performing Lab: [facility] [address] CREATININE 1.0 mg/dL 0.7-1.2 UREA NITROGEN 26 [...] 78 >60 May 13, 2024 11:44 AM [facility] PERIPHERAL SMEAR PATHOLOGIST REVIEW Specimen Type: BLOOD No comment entered. Ordering Provider: RENUKA JOHNSON Report Released Date/Time: May 13, 2024 01:51 PM Reporting Lab: [facility] [address] Performing Lab: [facility] [address] PERIPHERAL SMEAR PATHOLOGIST REVIEW SLIDES MADE Vital Signs: All taken on the encounter date This section contains inpatient and outpatient Vital Signs collected on the date of the Encounter. Date/Time Temperature Pulse Blood Pressure Respiratory Rate SP02 Pain Height Weight Body Mass Index Source Jun 03, 2024 10:12 AM 90 110/73 16 97 1 68 166 25 [facility] Immunizations: All administered on the encounter date This section contains immunizations associated to the Encounter. Immunization Series Date Issued Reaction Comments COVID-19 (PFIZER), MRNA, LNP -S, PF, JERI-SUCROSE, 30 MCG/0.3 ML (AGES 12+ YEARS) Jun 03, 2024 Social History: Smoking Status (Most current) and [...] 21, 2023 10:30 AM [place]-TO[place]AC[place] FORMER USER [facility] Tobacco Use History This section includes a history of the smoking, or tobacco-related health factors, that were collected on or before the date of the Encounter. The data comes from the [facility] where the Encounter took place. Date/Time Smoking Status/Tobacco Use Comment F acility Aug 21, 2023 10:30 AM [place]-TOBACCO QUIT 15 YRS OR MORE [facility] Aug 15, 2022 09:00 AM VA-TOBACCO FORMER USER [facility] Aug 15, 2022 09:00 AM VA-TOBACCO QUIT 15 YRS OR MORE [facility] Aug 21, 2021 01:00 PM VA-TOBACCO FORMER USER [facility] Aug 21, 2021 01:00 PM VA-TOBACCO QUIT 15 YRS OR MORE [facility] Jul 09, 2018 08:58 AM VA-TOBACCO FORMER USER [facility] Jul 09, 2018 08:58 AM VA-TOBACCO QUIT 15 YRS OR MORE [facility] Jul 18, 2017 09:58 AM FORMER TOBACCO USER 7Y OR GREATE R [facility] Aug 14, 2016 10:59 AM FORMER TOBACCO USER 7Y OR GREATE R [facility] Jun 29, 2015 02:03 PM FORMER TOBACCO USER 7Y OR GREATE R [facility] Jan 06, 2014 03:04 PM FORMER TOBACCO USER 7Y OR GREATE R [facility] Jan 04, 2012 08:36 AM FORMER TOBACCO USER 7Y OR GREATE R [facility] Radiology Reports: +/- 30 days of [...] the Encounter. The data comes from all [facility] facilities. Date/Time Radiology Report Provider Source May 20, 2024 09:[address] BODY W/O CO NTRAST (P): DONNAJUAN OLMOS SIRIA [id number] -1945 M Ex Date: MAY 20, 2024@09:14 Req Phys: TUAN YEUNG Loc: [facility] APACT L RES 03 WH 4F (Req' Img Loc: [facility] MED Service: [place] [address] (Case [id number] COMPLETE) SKULL-THIGH PET IMAGE W/CT (NM Detailed) CPT:08265 Reason for Study: eval for malignancy (Case [...] pager listed below: User placing orders pager: [phone] LAST CREATININE 1.0 (04/22/24) Report Status: Verified Date Reported: MAY 20, 2024 Date Verified: MAY 20, 2024 Direct Marketing Specialist E-Sig:/ES/RUFUS GROVES MD, FACR, CCD Report: PET/CT [...] Staff: RUFUS GROVES MD, FACR, STAFF RADIOLOGIST (Direct Marketing Specialist) /BSF RUFUS GROVES [facility] Pathology Reports: +/- 30 days of [...] the Encounter. The data comes from all [place] treatment facilities. Date/Time Pathology Report Provider Source Jun 16, 2024 12:06 PM LR SURGICAL PATHOLOGY REPORT: LOCAL TITLE: LR SURGICAL PATHOLOGY REPORT STANDARD TITLE: PATHOLOGY REPORT DATE OF NOTE: JUN 16, 2024@12:06:01 ENTRY DATE: JUN 16, 2024@12:06:01 AUTHOR: BRIELLE AMIN COSIGNER: URGENCY: STATUS: COMPLETED $APHDR Reporting Lab: [facility] [CLIA# [id number]] [place] [address] - - - - - - - [...] in cassette B. Grossing performed by: DAVID, Oil Field Equipment Mechanic Supervisor Entered by: DAVID, Oil Field Equipment Mechanic Supervisor Grossing confirmed by: Brielle Amin, Hematopathologist This report includes the results of laboratory tests utilizing Analyte Specific Reagents or commercially available antibodies ([place] and Lambda CISH Probes). These tests have been developed, fully validated, and their optimal performance characteristics determined by the [facility]. Such tests have not been [...] see also concurrent negative flow cytometry study ([id number]). Imaging studies concerning for possible lytic lesions [...] controls for CD3, CD20, CD34, CD61, CD138, [place] and lambda light chains, and pankeratin are [...] MD STAFF PATHOLOGIST, PATHOLOGY & LABORATORY MED [facility] Signed Jun 16, 2024@12:06 Performing Laboratory: Surgical Pathology Report Performed By: [facility] [CLIA# [id number]] [place] [address] $FTR - - - - - - - - - - - - - - - - - - - - - - - - - - - - - - - - - - - - - - - - (End of report) BRIELLE AMIN MD [facility] Date Jun 16, 2024 - - - - - - - - - - - - - - - - - - - - - - - - - - - - - - - - - - - - - - - - JUAN THOMPSON SIRIA STANDARD FORM 515 ID:[id number] SEX:M :1945 AGE: 78 LOC:[id number] PCP: Sonia Phillips /pablo/ BRIELLE AMIN MD STAFF PATHOLOGIST, PATHOLOGY & LABORATORY [facility] Signed: 06/16/2024 12:06 BRIELLE AMIN [facility] Jun 16, 2024 12:02 PM LR SURGICAL PATHOLOGY REPORT: LOCAL TITLE: LR SURGICAL PATHOLOGY REPORT STANDARD TITLE: PATHOLOGY REPORT DATE OF NOTE: JUN 16, 2024@12:02:40 ENTRY DATE: JUN 16, 2024@12:02:40 AUTHOR: BRIELLE AMIN EXP COSIGNER: URGENCY: STATUS: COMPLETED $APHDR Reporting Lab: [facility] [CLIA# [id number]] [place] [address] - - - - - - - [...] morphologic correlation see bone marrow biopsy report [id number]. Summary: On CD45 vs. side scatter analysis, [...] MD STAFF PATHOLOGIST, PATHOLOGY & LABORATORY [facility] Signed Jun 16, 2024@12:02 Performing Laboratory: Surgical Pathology Report Performed By: [facility] [CLIA# [id number]] [place] [address] $FTR - - - - - - - - - - - - - - - - - - - - - - - - - - - - - - - - - - - - - - - - (End of report) BRIELLE AMIN MD [facility] Date Jun 16, 2024 - - - - - - - - - - - - - - - - - - - - - - - - - - - - - - - - - - - - - - - - JUAN THOMPSON JR STANDARD FORM 515 ID:[id number] SEX:M :1945 AGE: 78 LOC:[id number] PCP: Sonia Phillips /aneesh AMIN MD STAFF PATHOLOGIST, PATHOLOGY & LABORATORY [facility] Signed: 06/16/2024 12:02 BRIELLE AMIN [facility] May 14, 2024 10:47 AM LR SURGICAL PATHOLOGY REPORT: LOCAL TITLE: LR SURGICAL PATHOLOGY REPORT STANDARD TITLE: PATHOLOGY REPORT DATE OF NOTE: MAY 14, 2024@10:47:04 ENTRY DATE: MAY 14, 2024@10:47:04 AUTHOR: VIPUL DASILVA COSIGNER: URGENCY: STATUS: COMPLETED $APHDR Reporting Lab: [facility] [CLIA# [id number]] [place] [address] - - - - - - - [...] Performing Laboratory: Surgical Pathology Report Performed By: [facility] [CLIA# [id number]] [place] [address] $FTR - - - - - - [...] - JUAN THOMPSON JR STANDARD FORM 515 ID:[id number] SEX:M :1945 AGE: 78 LOC:[id number] PCP: Sonia Phillips /pablo/ VIPUL DASILVA MD STAFF PATHOLOGIST Signed: 05/14/2024 10:47 VIPUL DASILVA [facility] Encounter Notes: All associated encounter notes This section contains the clinical notes associated to the Encounter. Date/Time Encounter Note(s) Provider Source Jun 03, 2024 10:15 AM INTERNAL MEDICINE OUTPATIENT NOTE: LOCAL TITLE: MEDICINE CLINIC NURSING NOTE STANDARD TITLE: INTERNAL MEDICINE OUTPATIENT NOTE DATE OF NOTE: JUN 03, 2024@10:15 ENTRY DATE: JUN 03, 2024@10:15:32 AUTHOR: JYOTSNA MEIER EXP COSIGNER: URGENCY: STATUS: COMPLETED MEDICINE CLINIC NURSING NOTE Has ADDENDA TYPE OF VISIT: Appointment Check In Type of appointment: In-person appointment REASON FOR VISIT: Check up. ALLERGIES: SULFAMETHOXAZOLE (Feb 07, 2022) EMPAGLIFLOZIN (Jun 06, 2022) VITAL SIGNS: Blood Pressure: 110/73 (06/03/2024 10:12) Pulse: 90 (06/03/2024 10:12) Respiration: 16 (06/03/2024 10:12) Temperature: 98.6 F [37.0 C] (05/26/2024 09:22) Weight: 166 lb [75.30 kg] (06/03/2024 10:12) Height: 68 in [172.7 cm] (06/03/2024 10:12) BMI: 25.3 O2 Sat: 97% (06/03/2024 10:12) Pain: 1 (06/03/2024 10:12) PAIN SCREEN: Patient is not having significant pain that they wish to discuss with their provider today. MEDICATION Over the Counter/Herbal Medications: The patient states that they take some outside medications and/or herbals. COVID-19 Immunization: Pfizer Monovalent (Comirnaty) Administered: COVID-19 (PFIZER), MRNA, LNP-S, PF, JERI-SUCROSE, 30 MCG/0.3 ML (AGES 12+ YEARS) Date Administered: Jun 03, 2024 10:00 Observation Assistant: [employer] Lot: [id number] Exp Date: Oct 27, 2024 [facility]: [id number] Admin Route/Site: INTRAMUSCULAR/LEFT DELTOID Dosage: 0.3mL Vaccine Information Statement(s): COVID-19 MRNA VACCINE (12+ YRS) VACCINE VIS May 14, 2024 (CYPRIOT) Order By: Policy Administered By: Jyotsna Meier Vaccine administered without complications. Td / Tdap Immunization: The patient declines to receive the recommended dose of Td/Tdap vaccine. Immunization: TD(ADULT) UNSPECIFIED FORMULATION Refusal Reason: PATIENT DECISION Patient refuses all immunization(s) in the Td group Date Documented: 06/03/24 10:17 /aneesh MEIER LPN STAFF SILVERLIGHT DEVELOPER Signed: 06/03/2024 10:17 06/03/2024 ADDENDUM STATUS: COMPLETED EDUCATION: PARTICIPANT(s): Patient Clean Catch Urine Instructed in collection of clean catch urine. Printed instructions provided and participant(s) is able to repeat these instructions accurately. Urinalysis and urine culture sent to lab /pablo/ JYOTSNA MEIER LPN STAFF SILVERLIGHT DEVELOPER Signed: 06/03/2024 10:52 JYOTSNA MEIER [facility] Jun 03, 2024 08:46 AM INTERNAL MEDICINE NOTE: LOCAL TITLE: MEDICINE CLINIC NOTE STANDARD TITLE: INTERNAL MEDICINE NOTE DATE OF NOTE: JUN 03, 2024@08:46:21 ENTRY DATE: JUN 03, 2024@08:46:23 AUTHOR: TUAN YEUNG COSIGNER: URGENCY: STATUS: COMPLETED MEDICINE CLINIC NOTE Has ADDENDA JUAN THOMPSON is a 78 year old MALE Nurse's Note Reviewed. HPI/ROS: 78-year-old who is here for follow-up with ongoing workup for weight loss and lytic bone lesions. His imaging performed since last visit includes PET scan, on which no malignancy was identified. He did have residual groundglass opacity in the right upper lobe associated with a 5 mm solid nodule, though these findings were favored to be likely inflammatory in nature. His kappa light chains were elevated at 27.3, and the kappa lambda ratio was elevated at 1.73. His beta-2 microglobulin was also high. He was seen in the oncology clinic after that exam, at which time they planned for bone marrow biopsy to further workup his unexplained nonspecific lymphadenopathy of unclear origin. Overall there is a low suspicion of multiple myeloma given his normal renal function, normal calcium, hemoglobin 11-13, though he still may have light chain disease. His bone marrow biopsy is scheduled for June 12, and he has follow-up with oncology on the . Weight has risen from heber of 155 to 168. Reports he just started eating more, and eating more sweets. Hasn't noticed any changes to his energy level. On ROS reports that he has a little pinkness to his urine that has been consistent for several months. Still has intermittently productive cough from his bronchiectasis but this is unchanged in quality or quantity and he feels the albuterol is helpful. Otherwise he denies new or changing fever, chills, night sweats, headaches, dizzyness, vision/hearing changes, sore throat, difficulty swallowing, nausea, vomiting, reflux, chest pain, palpitations, SOB, cough, orthopnea, abdominal pain, diarrhea, constipation, bloody or dark stool, urinary habit changes, numbness/tingling, cramping, focal weakness, joint pains/swelling, muscle pains/weakness, bleeding, rashes, lumps. Past medical history/Active Problems: Active problems - Computerized Problem List is the source for the followin. Essential hypertension (SNOMED CT 14098994) 2. Major depressive disorder (SNOMED CT 423705695) 3. Generalized anxiety disorder (SNOMED CT 38524160) 4. Primary Obesity 5. Bronchiectasis (SNOMED CT 63225606) 6. Gastroesophageal reflux disease (SNOMED CT 993172846) 7. Bariatric Surgery Status 8. Cataracts (SNOMED CT 90443789) 9. Hypermetropia/Hyperopia 10. Astigmatism, Unspec 11. Presbyopia 12. Atrial fibrillation (SNOMED CT 15123731) 13. Varicose veins of lower extremity 14. Compulsive gambling 15. Bipolar disorder (SNOMED CT 83984704) 16. Mild cognitive disorder 17. Type 2 diabetes mellitus 18. Long-term current use of anticoagulant 19. Gastritis 20. Dementia Allergies: SULFAMETHOXAZOLE (Feb 07, 2022) EMPAGLIFLOZIN (Jun 06, 2022) EXAM: VS: Temperature: 98.6 F [37.0 C] (05/26/2024 09:22) Blood Pressure: 110/73 (06/03/2024 10:12) Pulse: 90 (06/03/2024 10:12) Respiration: 16 (06/03/2024 10:12) Pain: 1 (06/03/2024 10:12) General: sitting comfortably, NAD HEENT: NCAT, PERRL, EOMI, MMM Lungs: bibasilar insp crackles otherwise CTAB, no W/R/R CV: irregularly irregular though overall normocardic, no M/G/R, no JVD Abdomen: BS+, S/NT/ND, no masses Extremities: WWP, pulses 2+ and symmetric b/l Neuro: Shuffling gait, hypophonia, fine resting tremor most notable in jaw hands. Strength 5/5 in UE and LE. CN II-XII grossly intact Psych: Calm, cooperative, appropriate Data/Labs: LAB RESULTS LAST 48 HRS - NONE FOUND Assessment and Plan: # Weight loss # Lytic bone lesions # Diffuse LAD PET unremarkable, light chains elevated, weight loss appears to have stabilized with some recent gains since stopping semaglutide 02/2024. Workup ongoing per oncology team. - BMBx next week, f/u oncology, appreciate input # [place] urine No urinary tract sxs otherwise, but reports on questioning today that pink urine he was experiencing earlier this year has not fully resolved. July UA in the ED showed >180 RBC and trace blood. CT abdomen and PET performed since that time have shown an unremarkable bladder, prostatic calcifications, and nonobstructing ureteral stones. May need CT urogram for further workup if this has not resolved. - UA # Parkinsonism Following with neurology, saw him 10/2023 and planned Nikolay scan which was not performed, saw him again 03/2024 no changes and still plan for Nikolay scan, though this does not appear to have been ordered and has not been performed. No recent falls. Still concerned this may be medication related. - Continue to follow with neurology - Co-sign neurology to ensure Nikolay scan is being performed as planned # Hx of Gastric Bypass Patient had Ina-en-Y done in early . Lab monitoring and supplements per metabolic clinic, next f/u 06/2024. Will also have him meet with dietitian given recent weight loss followed by reported switch to a more sweets-based diet on discontinuation of semaglutide. - Dietitian PACT referral - F/u with metabolic clinic as planned (next visit 06/2024) # DMII Well controlled. Metabolic clinic managing. Off insulin. - Diabetic Nephropathy: wnl 2022, repeat U alb/cr next visit - Diabetic Neuropathy/Foot Exam: complete at next visit - Diabetic Retinopathy: reminded to call eye clinic for appt - Cont metformin 500 mg QD - F/u as planned metabolic clinic (next 06/2024) # A Fib (CHADSVASC 5) # HTN [...] - F/u echo scheduled for 01/2025 # HLD # Chronic Small Vessel Ischemia - cont atorvastatin # Bronchiectasis - albuterol PRN #RHM - C-scope: normal in 2017. No further scopes d/t aging out - AAA: 2016 normal - COVID vaccines today RTC 4m Patient staffed with Dr. Boogie. Tuan Yeung MD Internal Medicine/Dermatology PGY-4 --[id number] Education on Treatment Plan: Patient indicates readiness [...] under the med tab as appropriate. /pablo/ TUAN YEUNG MD RESIDENT PHYSICIAN Signed: 06/03/2024 11:11 Receipt Acknowledged By: 06/03/2024 12:20 /pablo/ LA BOOGIE MD Staff Physician 06/19/2024 16:28 /pablo/ APRIL DUNN STAFF NEUROLOGIST 06/03/2024 ADDENDUM STATUS: COMPLETED I have reviewed this patient's history, pertinent physical examination, laboratory, and (when obtained) radiologic or other diagnostic tests with the resident evaluating this patient. I agree with the treatment plan as outlined. This plan was reviewed with the resident on the date of this note. Staffed with Dr. Yeung. Mr. Thompson presents today to follow up his unintentional weight loss. He had elevated light chains without a diagnosis of multiple myeloma but with lytic bone lesions. He is due for bone marrow biopsy on 06/12/24 and then follow up with heme/onc. He also reports a history concerning for hematuria; will verify and consider CT urogram and follow up with urology. He was seeing neurology for possible Parkinson's disease and will follow up with neurology. /pablo/ LA BOOGIE MD Staff Physician Signed: 06/03/2024 12:20 [facility]AN YEUNG [facility]
--- OUTSIDE RECORDS SUMMARY | 2024-07-06 16:22 | XMS_ITS | Encounter Summary ---
Author Name [facility] [facility] [place] [facility] [place] [facility] [place] Address [address] [place] [address] Care Team Providers Care Dehairing Machine Tender Name Role Phone SONIA PHILLIPS Primary Care [...] PART A Sep 26, 2012 PART A [id number] [facility] [phone] JUAN THOMPSON JR PATIENT MEDICARE (WNR) MEDICARE (M) PART B Sep 26, 2012 PART B [id number] [phone] JUAN THOMPSON JR PATIENT Selected Encounter This section includes the information on record at [place] for the Encounter. Date/Time Encounter Type Encounter Description Reason Provider Source Jun 12, 2024 08:30 AM DX BONE MARROW BX & ASPIR ONCOLOGY/TUMOR ICD-10-CM R93.7 Abnormal findings on diagnostic imaging of prt WILLEM Kwok I[facility] Encounter Template Text not used by [place] Assessments - Encounter Diagnoses This section includes the primary and secondary diagnoses documented for the Encounter. Date/Time Primary/Secondary Diagnosis Diagnosis Name Provider Source Jun 12, 2024 10:39 AM PRIMARY Abnormal findings on diagnostic imaging of prt WILLEM Kwok [facility] Plan of Treatment: Future Appointments (+ 6 months) and Future Tests (+/- 45 days) The Plan of Treatment section includes future care activities for the patient from all [place] [facility]. This section includes future appointments and future orders which are active, pending or scheduled. Future Appointments This section includes appointments that were scheduled to occur 6 months from the date of the Encounter, up to a maximum of 20 appointments. The data comes from all [facility]. Appointment Date/Time Appointment Type Appointme nt Facility Name Jun 23, 2024 10:15 AM [facility] Jul 06, 2024 08:30 AM [facility] Jul 16, 2024 07:30 AM [facility] Jul 16, 2024 08:30 [facility] Jul 16, 2024 09:00 AM [facility] [place] [facility] Jul 16, 2024 09:30 AM [facility] [place] [facility] Oct 07[facility] 2024 09:00 AM [facility] Oct 19, 2024 09:30 AM AM[facility] - NEUROLOGY [facility] Active, Pending, and Scheduled Orders This section includes a listing of several types of active, pending, and scheduled orders, including clinic medications orders, diagnostic test orders, procedure orders and consult orders; where the start date of the order is 45 days before the date of the Encounter or 45 days after the date of theEncounter. The data comes from all [facility]. Test Date/Time Test Type Test Details Facility Name Jun 19, 2024 04:32 PM Consult Order COMMUNITY CARE-NUCLEAR MEDICINE Cons Inbound Sales Consultant's Choice [facility] Lab Results: +/- 30 days of [...] Range Comment Jun 12, 2024 07:22 AM [facility] PHOSPHORUS Specimen Type: PLASMA No comment entered. Ordering Provider: AYANA MICHELLE Report Released Date/Time: May 26, 2024 09:45 AM Reporting Lab: [facility] [address] Performing Lab: [facility] [address] PHOSPHORUS 3.4 mg/dL 2.3-4.3 Jun 12, 2024 07:22 AM [facility] RETICS Specimen Type: BLOOD Comment: Automated Differential Performed Ordering Provider: AYANA MICHELLE Report Released Date/Time: May 26, 2024 09:53 AM Reporting Lab: [facility] [address] Performing Lab: [facility] [address] ABS RETIC 0.0429 0.0300-0.1 000 .RETICULOCYTE 1.06 0.6-2.0 IMMATURE RETIC 5.9 1.0-14.0 .RETICULOCYTE HE 30.5 pg 28.2-36.6 Jun 12, 2024 07:22 AM [facility] COMPREHENSIVE METABOLIC PANEL+MG Specimen Type: PLASMA No comment entered. Ordering Provider: AYANA MICHELLE Report Released Date/Time: May 26, 2024 09:45 AM Reporting Lab: [facility] [address] Performing Lab: [facility] [address] CREATININE 1.0 mg/dL 0.7-1.2 UREA NITROGEN 22 [...] 78 >60 Jun 12, 2024 07:22 AM [facility] CBC & DIFF Specimen Type: BLOOD Comment: Automated Differential Performed Ordering Provider: AYANA MICHELLE Report Released Date/Time: May 26, 2024 09:45 AM Reporting Lab: [facility] [address] Performing Lab: [facility] [address] WBC 6.4 4.0-11.0 RBC 4.05 L 4.60-6.20 [...] EOS 0.3 0.0-0.5 ABS BASO 0.0 0.0-0.2 IG(META,MYELO,P RO) 0.3 ABS IMMATURE GRAN 0.0 0.0-0.1 .RETICULOCYTE HE 30.5 pg 28.2-36.6 Jun 03, 2024 11:17 AM [facility] URINALYSIS Specimen Type: URINE No comment entered. Ordering Provider: ELOISE YEUNG Report Released Date/Time: Jun 03, 2024 10:39 AM Reporting Lab: [facility] [address] Performing Lab: [facility] [address] URINE COLOR YELLOW SPECIFIC GRAVITY 1.018 1.003-1.03 [...] 75 NEGATIVE May 20, 2024 09:39 AM [facility] FINGERSTICK GLUCOSE Specimen Type: BLOOD Comment: Save Result Ordering Provider: UNA PHILLIPS Report Released Date/Time: May 20, 2024 03:03 PM Reporting Lab: [facility] [address] Performing Lab: [facility] [address] FINGERSTICK GLUCOSE 148 mg/dL H 70-100 Vital Signs: All taken on the encounter date This section contains inpatient and outpatient Vital Signs collected on the date of the Encounter. Date/Time Temperature Pulse Blood Pressure Respiratory Rate SP02 Pain Height Weight Body Mass Index Source Jun 12, 2024 11:14 AM 97.4 63 119/70 16 97 0 [facility] Jun 12, 2024 10:32 AM 97.7 62 126/83 16 97 0 [facility] Jun 12, 2024 08:50 AM 97.6 77 109/62 20 99 0 68 173.2 26 [facility] Social History: Smoking Status (Most [...] Aj ity Aug 21, 2023 10:30 AM [place]-TOBACCO QUIT 15 YRS OR MORE [facility] Tobacco Use History This section includes a history of the smoking, or tobacco-related health factors, that were collected on or before the date of the Encounter. The data comes from the [place] facility where the Encounter took place. Date/Time Smoking Status/Tobacco Use Comment F acility Aug 21, 2023 10:30 AM VA-TOBACCO QUIT 15 YRS OR MORE [facility] Aug 15, 2022 09:00 AM VA-TOBACCO FORMER USER [facility] Aug 15, 2022 09:00 AM VA-TOBACCO [...] the Encounter. The data comes from all [facility] facilities. Date/Time Radiology Report Provider Source May 20, 2024 09:[address] BODY W/O CO NTRAST (P): JUAN THOMPSON [id number] -1945 M Ex Date: MAY 20, 2024@09:14 Req Phys: LYUBOV YEUNG Loc: [facility] APACT L RES 03 WH 4F (Req' Img Loc: NUC MED Service: [place] [address] (Case [id number] COMPLETE) SKULL-THIGH PET IMAGE W/CT (NM Detailed) CPT:88683 Reason for Study: eval for malignancy (Case [...] pager listed below: User placing orders pager: [phone] LAST CREATININE 1.0 (04/22/24) Report Status: Verified Date Reported: MAY 20, 2024 Date Verified: MAY 20, 2024 Rubber Gasket Inspector Trimmer E-Sig:/ES/RUFUS GROVES MD, FACR, CCD Report: PET/CT [...] Staff: RUFUS GROVES MD, FACR, STAFF RADIOLOGIST (Rubber Gasket Inspector Trimmer) /BSF RUFUS GROVES [facility] Pathology Reports: +/- 30 days of [...] COSIGNER: URGENCY: STATUS: COMPLETED $APHDR Reporting Lab: [facility] [CLIA# [id number]] [place] [address] - - - - - - - [...] in cassette B. Grossing performed by: DAVID, Trimmer Tailer Entered by: DAVID, Trimmer Tailer Grossing confirmed by: Brielle Amin, Hematopathologist This report includes the results of laboratory tests utilizing Analyte Specific Reagents or commercially available antibodies (Comunas and Lambda CISH Probes). These tests have been developed, fully validated, and their optimal performance characteristics determined by the [facility]. Such tests have not been [...] see also concurrent negative flow cytometry study ([id number]). Imaging studies concerning for possible lytic lesions [...] controls for CD3, CD20, CD34, CD61, CD138, Comunas and lambda light chains, and pankeratin are [...] MD STAFF PATHOLOGIST, PATHOLOGY & LABORATORY [facility] Signed Jun 16, 2024@12:06 Performing Laboratory: Surgical Pathology Report Performed By: [facility] [CLIA# [id number]] [place] [address] $FTR - - - - - - - - - - - - - - - - - - - - - - - - - - - - - - - - - - - - - - - - (End of report) BRIELLE AMIN MD [facility] [place] Jun 16, 2024 - - - - - - - - - - - - - - - - - - - - - - - - - - - - - - - - - - - - - - - - JUAN THOMPSON JR STANDARD FORM 515 ID:[id number] SEX:M :1945 AGE: 78 LOC:[id number] PCP: Sonia alegre/ BRIELLE AMIN MD STAFF PATHOLOGIST, PATHOLOGY & LABORATORY [facility] Signed: 06/16/2024 12:06 BRIELLE AMIN [facility] Jun 16, 2024 12:02 PM LR SURGICAL PATHOLOGY REPORT: LOCAL TITLE: LR SURGICAL PATHOLOGY REPORT STANDARD TITLE: PATHOLOGY REPORT DATE OF NOTE: JUN 16, 2024@12:02:40 ENTRY DATE: JUN 16, 2024@12:02:40 AUTHOR: BRIELLE AMIN EXP COSIGNER: URGENCY: STATUS: COMPLETED $APHDR Reporting Lab: [facility] [CLIA# [id number]] [place] [address] - - - - - - - [...] - - - PATHOLOGY REPORT Accession No. [id number] - - - - - [...] morphologic correlation see bone marrow biopsy report [id number]. Summary: On CD45 vs. side scatter analysis, [...] MD STAFF PATHOLOGIST, PATHOLOGY & LABORATORY [facility] Signed Jun 16, 2024@12:02 Performing Laboratory: Surgical Pathology Report Performed By: [facility] [CLIA# [id number]] [place] [address] $FTR - - - - - - - - - - - - - - - - - - - - - - - - - - - - - - - - - - - - - - - - (End of report) BRIELLE AMIN MD [facility] [place] Jun 16, 2024 - - - - - - - - - - - - - - - - - - - - - - - - - - - - - - - - - - - - - - - - JUAN THOMPSON STANDARD FORM 515 ID:[id number] SEX:M :1945 AGE: 78 LOC:[id number] PCP: Sonia Phillips /pablo/ BRIELLE AMIN MD STAFF PATHOLOGIST, PATHOLOGY & LABORATORY [facility] Signed: 06/16/2024 12:02 BRIELLE AMIN [facility] May 14, 2024 10:47 AM LR SURGICAL PATHOLOGY REPORT: LOCAL TITLE: LR SURGICAL PATHOLOGY REPORT STANDARD TITLE: PATHOLOGY REPORT DATE OF NOTE: MAY 14, 2024@10:47:04 ENTRY DATE: MAY 14, 2024@10:47:04 AUTHOR: VIPUL DASILVA COSIGNER: URGENCY: STATUS: COMPLETED $APHDR Reporting Lab: [facility] [CLIA# [id number]] [place] [address] - - - - - - - [...] Performing Laboratory: Surgical Pathology Report Performed By: [facility] [CLIA# [id number]] [place] [address] $FTR - - - - - - [...] - JUAN THOMPSON JR STANDARD FORM 515 ID:[id number] SEX:M :1945 AGE: 78 LOC:[id number] PCP: Sonia Phillips /pablo/ VIPUL DASILVA MD STAFF PATHOLOGIST Signed: 05/14/2024 10:47 VIPUL DASILVA [facility] Encounter Notes: All associated encounter notes This section contains the clinical notes associated to the Encounter. Date/Time Encounter Note(s) Provider Source Jun 12, 2024 11:36 AM INTERNAL MEDICINE OUTPATIENT NOTE: LOCAL TITLE: MEDICINE CLINIC NURSING NOTE STANDARD TITLE: INTERNAL MEDICINE OUTPATIENT NOTE DATE OF NOTE: JUN 12, 2024@11:36 ENTRY DATE: JUN 12, 2024@11:36:15 AUTHOR: ROSANA ORANTES EXP COSIGNER: URGENCY: STATUS: COMPLETED MEDICINE CLINIC NURSING NOTE Has ADDENDA Procedure: Bone Marrow Biopsy Biopsy Procedure Release Criteria Vital Signs Temperature: 97.4 F [36.3 C] (06/12/2024 11:14) Pulse: 63 (06/12/2024 11:14) Respirations: 16 (06/12/2024 11:14) Blood Pressure: 119/70 (06/12/2024 11:14) Pain: 0 (06/12/2024 11:14) O2 Sats: 97% (06/12/2024 11:14) Hematoma: No; Bleeding: No; Dressing: Clean, Dry, and Intact Wristband Removed: Yes /pablo/ ROSANA ORANTES LPN, LPN Signed: 06/12/2024 11:37 Receipt Acknowledged By: 06/12/2024 11:54 /pablo/ JAMES CHIN REGISTERED NURSE 06/12/2024 ADDENDUM STATUS: COMPLETED Procedure: Bone Marrow Biopsy Biopsy Procedure Release Criteria Vital Signs Temperature: 97.4 F [36.3 C] (06/12/2024 11:14) Pulse: 63 (06/12/2024 11:14) Respirations: 16 (06/12/2024 11:14) Blood Pressure: 119/70 (06/12/2024 11:14) Pain: 0 (06/12/2024 11:14) O2 Sats: 97% (06/12/2024 11:14) Hematoma: No; Bleeding: No; Dressing: Clean, Dry, and Intact Wristband Removed: Yes RN Education: Patient, Family Member demonstrates readiness to learn and has been instructed on the instructions for home care. Verbalizes understanding of release instructions. /pablo/ JAMES CHIN REGISTERED NURSE Signed: 06/12/2024 11:55 ROSANA ORANTES [facility] Jun 12, 2024 10:33 AM INTERNAL MEDICINE OUTPATIENT NOTE: LOCAL TITLE: MEDICINE CLINIC NURSING NOTE STANDARD TITLE: INTERNAL MEDICINE OUTPATIENT NOTE DATE OF NOTE: JUN 12, 2024@10:33 ENTRY DATE: JUN 12, 2024@10:33:48 AUTHOR: ROSANA ORANTES EXP COSIGNER: URGENCY: STATUS: COMPLETED Procedure: Bone Marrow Biopsy Nursing Post Biopsy Note Vital Signs Temperature: 97.7 F [36.5 C] (06/12/2024 10:32) Pulse: 62 (06/12/2024 10:32) Respirations: 16 (06/12/2024 10:32) Blood Pressure: 126/83 (06/12/2024 10:32) Pain: 0 (06/12/2024 10:32) O2 Sats: 97% (06/12/2024 10:32) Hematoma: No; Bleeding: No; Location of Bone Marrow Biopsy Site: Right posterior iliac crest// Dressing: Clean, Dry, and Intact Bedrest until: May@11:20 /pablo/ ROSANA ORANTES LPN [employer]'S SURVEYOR Signed: 06/12/2024 10:36 ROSANA ORANTES [facility] Jun 12, 2024 10:29 AM HEMATOLOGY AND ONC OLOGY PROCEDURE NOTE: LOCAL TITLE: HEME/ONC PROCEDURE NOTE STANDARD TITLE: HEMATOLOGY AND ONCOLOGY PROCEDURE NOTE DATE OF NOTE: JUN 12, 2024@10:29 ENTRY DATE: JUN 12, 2024@10:29:08 AUTHOR: MARY KING EXP COSIGNER: URGENCY: STATUS: COMPLETED Reason for procedure: abnormal imaging with suspected lytic lesions, weight loss Procedure start time: May@09:55 Procedure stop time: May@10:15 Bone Marrow Core Biopsy Patient was identified by using full name and social security number. Procedure(s) to be performed was(were) discussed with patient and verified to be correct. Patient and legal guardian provided with appropriate education and patient and legal guardian acknowledged understanding. Site Marking: Site marked (as indicated by policy) A time out was taken prior to the procedure to verify correct patient, correct procedure and correct site. Written informed consent obtained from the patient, using the [place] approved form. Informed Consent Progress Note containing risks, benefits and alternatives documented. Patient positioning was verified prior to procedure if relevant. Patient positioned prone. All necessary special equipment including implants were verified prior to procedure. ORAL PRE-MEDICATION: Tylenol 1000mg PO once ANESTHETIC: 30 ml 1% Lidocaine without Epinephrine PROCEDURE: 2 cm biopsy from right posterior iliac crest (Jamshidi needle) 4 ml aspirate was obtained easily from the right posterior superior iliac spine OTHER STUDIES: 4ml for Cytometry. 4ml for Cytogenetics. 4ml for other:NGS if needed DRESSING(S)APPLIED:Coverl et and Pressure Bandage. COMPLICATIONS/FINDINGS: Patient tolerated the procedure well overall. Alert, conversant, and following commands throughout procedure. Minimal blood loss. No immediate complications. Patient positioned supine at end of procedure. /pablo/ SAL RODRIGUEZ [address] [employer]ICE LOCKSMITH Signed: 06/12/2024 10:45 MARY KING [facility] Jun 12, 2024 08:51 AM INTERNAL MEDICINE OUTPATIENT NOTE: LOCAL TITLE: MEDICINE CLINIC NURSING NOTE STANDARD TITLE: INTERNAL MEDICINE OUTPATIENT NOTE DATE OF NOTE: JUN 12, 2024@08:51 ENTRY DATE: JUN 12, 2024@08:52:01 AUTHOR: ROSANA ORANTES COSIGNER: URGENCY: STATUS: COMPLETED MEDICINE CLINIC NURSING NOTE Has ADDENDA TYPE OF VISIT: Appointment Check In Type of appointment: In-person appointment REASON FOR VISIT: bone marrow biopsy ALLERGIES: SULFAMETHOXAZOLE (Feb 07, 2022) EMPAGLIFLOZIN (Jun 06, 2022) VITAL SIGNS: Blood Pressure: 109/62 (06/12/2024 08:50) Pulse: 77 (06/12/2024 08:50) Respiration: 20 (06/12/2024 08:50) Temperature: 97.6 F [36.4 C] (06/12/2024 08:50) Weight: 173.2 lb [78.56 kg] (06/12/2024 08:50) Height: 68 in [172.7 cm] (06/12/2024 08:50) BMI: 26.4 O2 Sat: 99% (06/12/2024 08:50) Pain: 0 (06/12/2024 08:50) PAIN SCREEN: Patient is not having significant pain that they wish to discuss with their provider today. MEDICATION Over the Counter/Herbal Medications: The patient denies taking any outside medications or herbals. Procedure: Bone Marrow Biopsy Nursing Pre-Biopsy Note Education: Patient demonstrates readiness to learn and has been instructed on the biopsy procedure. Brochure of Bone Marrow Biopsy given. Bone Marrow Biopsy Handout Given the opportunity to ask questions. States understanding of the procedure. Medication list reviewed with patient/caregiver? Yes: What medication/s did you hold today? patient held all his AM medications Pre-medications given as ordered: : No Baseline Vital Signs: Temperature: 97.6 F [36.4 C] (06/12/2024 08:50) Pulse: 77 (06/12/2024 08:50) Respirations: 20 (06/12/2024 08:50) Blood Pressure: 109/62 (06/12/2024 08:50) Pain: 0 (06/12/2024 08:50) O2 Sats: 99% (06/12/2024 08:50) Height: 68 in [172.7 cm] (06/12/2024 08:50) Weight: 173.2 lb [78.56 kg] (06/12/2024 08:50) Mental Status: Alert, Oriented x3 Patient states understanding of procedure/surgery: Yes Emergency Contact Information: Primary NOK: SIRIA THOMPSON Relation: SON [address] [place], [place] [address] Emergency Contact information verified or corrected. Outpatient Scheduler accompanying patient today: anam [phone] /pablo/ ROSANA ORANTES LPN, LPN Signed: 06/12/2024 08:55 06/12/2024 ADDENDUM STATUS: COMPLETED tylenol 1000mg given at 0925 /pablo/ ROSANA ORANTES LPN, LPN Signed: 06/12/2024 09:32 ROSANA ORANTES [facility]
--- OUTSIDE RECORDS SUMMARY | 2024-07-06 16:22 | XMS_ITS | Encounter Summary ---
Author Name [facility] [facility] Address [address] [place] [address] Care Team Providers Care Hand Cutter Name Role Phone SONIA PHILLIPS Primary Care [...] PART A Sep 26, 2012 PART A [id number] [facility] [phone] JUAN THOMPSON JR PATIENT MEDICARE (WNR) MEDICARE (M) PART B Sep 26, 2012 PART B [id number] [phone] JUAN THOMPSON JR PATIENT Selected Encounter This section includes the information on record at [place] for the Encounter. Date/Time Encounter Type Encounter Description Reason Provider Source Jun 05, 2024 01:30 PM HC PRO PHONE CALL 11-20 MIN TELEPHONE/MEDICIN E ICD-10-CM D64.9 Anemia, unspecified JAMES CHIN IHE Encounter Template Text not used by [place] Assessments - Encounter Diagnoses This section includes the primary and secondary diagnoses documented for the Encounter. Date/Time Primary/Secondary Diagnosis Diagnosis Name Provider Source Jun 05, 2024 01:30 PM PRIMARY Anemia, unspecified JAMES CHIN [facility] Plan of Treatment: Future Appointments (+ 6 months) and Future Tests (+/- 45 days) The Plan of Treatment section includes future care activities for the patient [facility] This section includes future appointments and future orders which are active, pending or scheduled. Future Appointments This section includes appointments that were scheduled to occur 6 months from the date of the Encounter, up to a maximum of 20 appointments. The data comes from all [facility]. Appointment Date/Time Appointment Type Appointme nt Facility Name Jun 12, 2024 07:30 AM AMBULATORY - NONE [facility] Jun 12, 2024 08:30 AM AM[facility]ORY [facility] MEDICINE [facility] Jun 23, 2024 10:15 AM AMBULATORY - [facility]IC[facility] Jul 06, 2024 08:30 AM AMBULATORY - NONE [facility] Jul 16, 2024 07:30 AM [facility]UL[facility]ORY - [facility] Jul 16, 2024 08:30 AM AMBULATORY - MEDICINE [facility] Jul 16, 2024 09:00 AM AMBULATORY - PSYCHIATRY [facility] Jul 16, 2024 09:30 AM AMBULATORY - PSYCHIATRY IN [facility] Oct 07, 2024 09:00 AM AMBULATORY - MEDICINE [facility] Oct 19, 2024 09:30 AM AMBULATORY - NEUROLOGY [facility] Active, Pending, [...] of theEncounter. The data comes from all [facility]. Test Date/Time Test Type Test Details Facility Name Jun 19, 2024 04:32 PM Consult Order COMMUNITY [facility]ARE-NUCLEAR MEDICINE Cons [employer] [facility] Lab Results: +/- 30 days of [...] Range Comment Jun 12, 2024 07:22 AM [facility] PHOSPHORUS Specimen Type: PLASMA No comment entered. Ordering Provider: JAVIER MICHELLE Report Released Date/Time: May 26, 2024 09:45 AM Reporting Lab: [facility] [address] Performing Lab: [facility] [address] PHOSPHORUS 3.4 mg/dL 2.3-4.3 Jun 12, 2024 07:22 AM [facility] RETICS Specimen Type: BLOOD Comment: Automated Differential Performed Ordering Provider: JAVIER MICHELLE Report Released Date/Time: May 26, 2024 09:53 AM Reporting Lab: [facility] [address] Performing Lab: [facility] [address] ABS RETIC 0.0429 0.0300-0.1 000 .RETICULOCYTE 1.06 0.6-2.0 IMMATURE RETIC 5.9 1.0-14.0 .RETICULOCYTE HE 30.5 pg 28.2-36.6 Jun 12, 2024 07:22 AM [facility] COMPREHENSIVE METABOLIC PANEL+MG Specimen Type: PLASMA No comment entered. Ordering Provider: JAVIER MICHELLE Report Released Date/Time: May 26, 2024 09:45 AM Reporting Lab: [facility] [address] Performing Lab: [facility] [address] CREATININE 1.0 mg/dL 0.7-1.2 UREA NITROGEN 22 [...] 78 >60 Jun 12, 2024 07:22 AM [facility] CBC & DIFF Specimen Type: BLOOD Comment: Automated Differential Performed Ordering Provider: JAVIER MICHELLE Report Released Date/Time: May 26, 2024 09:45 AM Reporting Lab: [facility] [address] Performing Lab: [facility] [address] WBC 6.4 4.0-11.0 RBC 4.05 L 4.60-6.20 [...] pg 28.2-36.6 Jun 03, 2024 11:17 AM [facility] URINALYSIS Specimen Type: URINE No comment entered. Ordering Provider: LYUBOV YEUNG Report Released Date/Time: Jun 03, 2024 10:39 AM Reporting Lab: [facility] [address] Performing Lab: [facility] [address] URINE COLOR YELLOW SPECIFIC GRAVITY 1.018 1.003-1.03 [...] 75 NEGATIVE May 20, 2024 09:39 AM [facility] FINGERSTICK GLUCOSE Specimen Type: BLOOD Comment: Save Result Ordering Provider: TANK PHILLIPS Report Released Date/Time: May 20, 2024 03:03 PM Reporting Lab: [facility] [address] Performing Lab: [facility] [address] FINGERSTICK GLUCOSE 148 mg/dL H 70-100 May 13, 2024 11:44 AM [facility] KAPPA/LAMBDA LC FREE,RATIO Specimen Type: SERUM [...] therapy of these disorders. Test Performed by [facility] [place], [facility], [address] [place] [address] Devante Meyer M.D., Ph.D., Director of Laboratories , CLIA [id number] Ordering Provider: RENUKA JOHNSON Report Released Date/Time: Apr 24, 2024 04:08 PM Reporting Lab: [facility] [address] Performing Lab: [address] .KAPPA LT CHAIN,FREE 27.3 mg/L H 3.3-19.4 .LAMBDA LC,FREE 15.8 mg/L 5.7-26.3 .KAPPA/LAMBDA, FREE 1.73 H 0.26-1.65 May 13, 2024 11:44 AM [facility] LD,TOTAL Specimen Type: PLASMA No comment entered. Ordering Provider: RENUKA JOHNSON Report Released Date/Time: Apr 24, 2024 04:08 PM Reporting Lab: [facility] [address] Performing Lab: [address] LD,TOTAL 141 U/L 125-220 May 13, 2024 11:44 AM [facility] URIC ACID Specimen Type: PLASMA No comment entered. Ordering Provider: RENUKA JOHNSON Report Released Date/Time: Apr 24, 2024 04:08 PM Reporting Lab: [facility] [address] Performing Lab: [facility] [address] URIC ACID 3.1 mg/dL L 3.7-7.7 May 13, 2024 11:44 AM [facility] B 12 Specimen Type: SERUM No comment entered. Ordering Provider: RENUKA JOHNSON Report Released Date/Time: Apr 24, 2024 04:08 PM Reporting Lab: [facility] [address] Performing Lab: [facility] [address] B 12 722 pg/mL 213-816 May 13, 2024 11:44 AM [facility] FOLATE Specimen Type: SERUM No comment entered. Ordering Provider: RENUKA JOHNSON Report Released Date/Time: Apr 24, 2024 04:08 PM Reporting Lab: [facility] [address] Performing Lab: [facility] [address] FOLATE 14.6 ng/mL >7.0 May 13, 2024 11:44 AM [facility] PHOSPHORUS Specimen Type: PLASMA No comment entered. Ordering Provider: RENUKA JOHNSON Report Released Date/Time: Apr 24, 2024 04:08 PM Reporting Lab: [facility] [address] Performing Lab: [facility] [address] PHOSPHORUS 3.3 mg/dL 2.3-4.3 May 13, 2024 11:44 AM [facility] IRON GROUP Specimen Type: SERUM No comment entered. Ordering Provider: RENUKA JOHNSON Report Released Date/Time: Apr 24, 2024 04:08 PM Reporting Lab: [facility] [address] Performing Lab: [facility] [address] IRON 101 ug/dL 65-175 TIBC,CALCULATE D 313 ug/dL 250-425 FERRITIN pending IRON SATURATION 32 20-50 TRANSFERRIN 250 mg/dL 163-382 May 13, 2024 11:44 AM [facility] BETA 2-MICROGLOBULIN Specimen Type: SERUM No comment entered. Ordering Provider: RENUKA JOHNSON Report Released Date/Time: Apr 24, 2024 04:08 PM Reporting Lab: [facility] [address] Performing Lab: [facility] [address] BETA 2-MICROGLOBULI N 3.36 mg/L H 0.97-2.64 May 13, 2024 11:44 AM [facility] PSA Specimen Type: SERUM No comment entered. Ordering Provider: ABBY MEANS Report Released Date/Time: May 12, 2024 08:28 PM Reporting Lab: [facility] [address] Performing Lab: [facility] [address] PSA 0.49 ng/mL <4.00 May 13, 2024 11:44 AM [facility] TOTAL IMMUNOGLOB (IGA,IGG,IGM) Specimen Type: PLASMA No comment entered. Ordering Provider: RENUKA JOHNSON Report Released Date/Time: Apr 24, 2024 04:08 PM Reporting Lab: [facility] [address] Performing Lab: [facility] [address] IGM 78.8 mg/dL 22.0-293.0 IGG 714.3 mg/dL 540.0-18 22 .0 IGA 123.8 mg/dL 63.0-645.0 May 13, 2024 11:44 AM [facility] TESTOSTERONE Specimen Type: SERUM No comment entered. Ordering Provider: ABBY MEANS Report Released Date/Time: May 12, 2024 08:30 PM Reporting Lab: [facility] [address] Performing Lab: [facility] [address] TESTOSTERONE 534 ng/dL 221-870 May 13, 2024 11:44 AM [facility] CBC & DIFF Specimen Type: BLOOD Comment: Automated Differential Performed Ordering Provider: RENUKA JOHNSON Report Released Date/Time: Apr 24, 2024 04:08 PM Reporting Lab: [facility] [address] Performing Lab: [facility] [address] WBC 8.3 4.0-11.0 RBC 4.04 L 4.60-6.20 [...] 0.0 0.0-0.1 May 13, 2024 11:44 AM [facility] COMPREHENSIVE METABOLIC PANEL+MG Specimen Type: PLASMA No comment entered. Ordering Provider: RENUKA JOHNSON Report Released Date/Time: Apr 24, 2024 04:08 PM Reporting Lab: [facility] [address] Performing Lab: [facility] [address] CREATININE 1.0 mg/dL 0.7-1.2 UREA NITROGEN 26 [...] 78 >60 May 13, 2024 11:44 AM [facility] PERIPHERAL SMEAR PATHOLOGIST REVIEW Specimen Type: BLOOD No comment entered. Ordering Provider: RENUKA JOHNSON Report Released Date/Time: May 13, 2024 01:51 PM Reporting Lab: [facility] [address] Performing Lab: [facility] [address] PERIPHERAL SMEAR PATHOLOGIST REVIEW SLIDES MADE Social History: Smoking Status (Most current) and Tobacco Use (All prior to encounter date) This section includes the most current, and the historical, smoking and tobacco- related health factors from the [place] facility where the Encounter took place. Current Smoking Status This section includes the most current smoking, or tobacco-related health factor, from the [place] facility where the Encounter took place. Date/Time Current Smoking Status Comment Aj woods Aug 21, 2023 10:30 AM [place]-TOBACCO QUIT 15 YRS OR MORE [facility] Tobacco [...] [facility] Aug 15, 2022 09:00 AM VA-TOBACCO FORMER USER [facility] Aug 15, 2022 09:00 AM VA-TOBACCO [...] BODY W/O CO NTRAST (P): JUAN THOMPSON [id number] -1945 M Exm Date: MAY 20, 2024@09:14 Req Phys: LYUBOV YEUNG Pat Loc: [facility] APACT L RES 03 WH 4F (Req' Img Loc: [facility]UC MED Service: [place] [address] (Case [id number] COMPLETE) SKULL-THIGH PET IMAGE W/CT (NM Detailed) CPT:77943 Reason for Study: eval for malignancy (Case [...] pager listed below: User placing orders pager: [phone] LAST CREATININE 1.0 (04/22/24) Report Status: Verified Date Reported: MAY 20, 2024 Date Verified: MAY 20, 2024 Configuration Manager E-Sig:/ES/RUFUS GROVES MD, FACR, CCD Report: PET/CT [...] Staff: RUFUS GROVES MD, FACR, STAFF RADIOLOGIST (Configuration Manager) /BSF RUFUS GROVES [facility] Pathology Reports: +/- 30 days of [...] comes from all [place] treatment facilities. Date/Time Pathology Report Provider Source Jun 16, 2024 12:06 PM LR SURGICAL PATHOLOGY REPORT: LOCAL TITLE: LR SURGICAL PATHOLOGY REPORT STANDARD TITLE: PATHOLOGY REPORT DATE OF NOTE: JUN 16, 2024@12:06:01 ENTRY DATE: JUN 16, 2024@12:06:01 AUTHOR: BRIELLE AMIN COSIGNER: URGENCY: STATUS: COMPLETED $APHDR Reporting Lab: [facility] [CLIA# [id number]] [place] [address] - - - - - - - [...] in cassette B. Grossing performed by: DAVID, Mounter Automatic Entered by: DAVID, Mounter Automatic Grossing confirmed by: Brielle Amin, Hematopathologist This report includes the results of laboratory tests utilizing Analyte Specific Reagents or commercially available antibodies (Olinda and Lambda CISH Probes). These tests have been developed, fully validated, and their optimal performance characteristics determined by the [facility]. Such tests have not been [...] see also concurrent negative flow cytometry study ([id number]). Imaging studies concerning for possible lytic lesions [...] controls for CD3, CD20, CD34, CD61, CD138, Olinda and lambda light chains, and pankeratin are [...] MD STAFF PATHOLOGIST, PATHOLOGY & LABORATORY [facility] Signed Jun 16, 2024@12:06 Performing Laboratory: Surgical Pathology Report Performed By: [facility] [CLIA# [id number]] [place] [address] $FTR - - - - - - - - - - - - - - - - - - - - - - - - - - - - - - - - - - - - - - - - (End of report) BRIELLE AMIN MD [facility] Date Jun 16, 2024 - - - - - - - - - - - - - - - - - - - - - - - - - - - - - - - - - - - - - - - - JUAN THOMPSON JR STANDARD FORM 515 ID:[id number] SEX:M :1945 AGE: 78 LOC:[id number] PCP: Sonia Phillips /aneesh AMIN MD STAFF PATHOLOGIST, PATHOLOGY & LABORATORY [facility] Signed: 06/16/2024 12:06 BRIELLE AMIN [facility] Jun 16, 2024 12:02 PM LR SURGICAL PATHOLOGY REPORT: LOCAL TITLE: LR SURGICAL PATHOLOGY REPORT STANDARD TITLE: PATHOLOGY REPORT DATE OF NOTE: JUN 16, 2024@12:02:40 ENTRY DATE: JUN 16, 2024@12:02:40 AUTHOR: BRIELLE AMIN COSIGNER: URGENCY: STATUS: COMPLETED $APHDR Reporting Lab: [facility] [CLIA# [id number]] [address] [place] [address] - - - - - - - [...] - - - PATHOLOGY REPORT Accession No. [id number] - - - - - - - [...] morphologic correlation see bone marrow biopsy report [id number]. Summary: On CD45 vs. side scatter analysis, [...] MD STAFF PATHOLOGIST, PATHOLOGY & LABORATORY [facility] Signed Jun 16, 2024@12:02 Performing Laboratory: Surgical Pathology Report Performed By: [facility] [CLIA# [id number]] [place] [address] $FTR - - - - - - - - - - - - - - - - - - - - - - - - - - - - - - - - - - - - - - - - (End of report) BRIELLE AMIN MD [facility] Date Jun 16, 2024 - - - - - - - - - - - - - - - - - - - - - - - - - - - - - - - - - - - - - - - - JUAN THOMPSON JR STANDARD FORM 515 ID:[id number] SEX:M :1945 AGE: 78 LOC:[id number] PCP: Sonia Phillips /pablo/ BRIELLE AMIN MD STAFF PATHOLOGIST, PATHOLOGY & LABORATORY [facility] Signed: 06/16/2024 12:02 BRIELLE AMIN [facility] May 14, 2024 10:47 AM LR SURGICAL PATHOLOGY REPORT: LOCAL TITLE: LR SURGICAL PATHOLOGY REPORT STANDARD TITLE: PATHOLOGY REPORT DATE OF NOTE: MAY 14, 2024@10:47:04 ENTRY DATE: MAY 14, 2024@10:47:04 AUTHOR: VIPUL DASILVA COSIGNER: URGENCY: STATUS: COMPLETED $APHDR Reporting Lab: [facility] [CLIA# [id number]] [place] [address] - - - - - - - [...] Performing Laboratory: Surgical Pathology Report Performed By: [facility] [CLIA# [id number]] [place] [address] $FTR - - - - - - [...] - - JUAN THOMPSON STANDARD FORM 515 ID:[id number] SEX:M :1945 AGE: 78 LOC:[id number] PCP: Sonia Phillips /pablo/ VIPUL DASILVA MD STAFF PATHOLOGIST Signed: 05/14/2024 10:47 VIPUL DASILVA [facility] Encounter Notes: All associated encounter notes This section contains the clinical notes associated to the Encounter. Date/Time Encounter Note(s) Provider Source Jun 05, 2024 01:58 PM HEMATOLOGY AND ONC OLOGY NURSING NOTE: LOCAL TITLE: HEME/ONC CASE MANAGEMENT NOTE STANDARD TITLE: HEMATOLOGY AND ONCOLOGY NURSING NOTE DATE OF NOTE: JUN 05, 2024@13:58 ENTRY DATE: JUN 05, 2024@13:58:50 AUTHOR: JAMES CHIN EXP COSIGNER: URGENCY: STATUS: COMPLETED OBJECTIVES: Bone Marrow Biopsy Indicated readiness to learn and has been instructed on the following: -Purpose of the bone marrow biopsy -Verify if Bone Marrow Biopsy pamphlet provided or mailed to patient at least 4 days prior to procedure -What to expect: o Local anesthetic o Possible complications such as pain, infection, and bleeding o Pre-medications o Tylenol (Acetaminophen)) o Ativan (Lorazepam) o Dilaudid (Hydromorphone) -Blood thinner o Yes--RN to verify with provider if medication needs to be held. Provider to provide date to begin holding, duration to be held and restart date. -Discuss the need for driver license technician or if no driver license technician available the alternate option is local Lidocaine and Tylenol only as pre-medication -Post care discharge instructions found in informational [facility] pamphlet Day of Bone Marrow Biopsy -You may eat breakfast -Take your medications as prescribed -Lab appointment 1 hr prior -Report to 3V-100 to check for [facility] appointment -Expect to be in clinic until around 12pm Patient questions the [place] has regarding the procedure: No questions at this time. Appointments Confirmed: 06/12/24 Lab draw 0730 [facility] Appointment 0830 Allergy posting Reviewed Per MD Johnson hold Apixaban the morning of procedure only, patient verbalized understanding and repeated back correctly. Patient has court appointed gaurdian named Nathalie Cline- she completes his medical consents. Under [facility] contacted Nathalie, who will be available for phone consent at 0900. Please contact her at # /es/ JAMES CHIN REGISTERED NURSE Signed: 06/05/2024 14:16 Receipt Acknowledged By: 06/05/2024 14:22 /pablo/ SAL RODRIGUEZ PHYSICIAN PRIMARY CLASS TEACHER JAMES CHIN [facility]
--- OUTSIDE RECORDS SUMMARY | 2024-07-06 16:22 | XMS_ITS | Encounter Summary ---
Author Name [facility] Address [address] [place] [address] Care Team Providers Care Suede Brusher Name Role Phone SONIA PHILLIPS Primary Care [...] PART A Sep 26, 2012 PART A [id number] [phone] JUAN THOMPSON JR PATIENT MEDICARE (WNR) MEDICARE (M) PART B Sep 26, 2012 PART B [id number] [phone] JUAN THOMPSON JR PATIENT Selected Encounter This section includes the information on record at [place] for the Encounter. Date/Time Encounter Type Encounter Description Reason Pro vider Source Jun 12, 2024 09:16 AM Outpatient Encounter EVENT (HISTORICAL) I[facility] Encounter Template Text not used by [place] Plan of Treatment: Future Appointments (+ 6 months) and Future Tests (+/- 45 days) The Plan of Treatment section includes future care activities for the patient from all [place] [facility]. This section includes future appointments and future orders which are active, pending or scheduled. Future Appointments This section includes appointments that were scheduled to occur 6 months from the date of the Encounter, up to a maximum of 20 appointments. The data comes from all [place] treatment facilities. Appointment Date/Time Appointment Type Appointme nt Facility Name Jun 23, 2024 10:15 AM [facility] Jul 06, 2024 08:30 AM AMBULATORY - NONE [facility] Jul 16, 2024 07:30 AM [facility] Jul 16, 2024 08:30 AM [facility] Jul 16, 2024 09:00 AM AMBULATORY - PSYCHIATRY [facility] Jul 16, 2024 09:30 AM AMBULATORY - PSYCHIATRY [facility] Oct 07, 2024 09:00 AM [facility] Oct 19, 2024 09:30 AM AMBULATORY - NEUROLOGY [facility] Active, Pending, and Scheduled Orders This section includes a listing of several types of active, pending, and scheduled orders, including clinic medications orders, diagnostic test orders, procedure orders and consult orders; where the start date of the order is 45 days before the date of the Encounter or 45 days after the date of theEncounter. The data comes from all [facility]. 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 Ordering Provider: AYANA MICHELLE Report Released Date/Time: May 26, 2024 09:45 AM Reporting Lab: [facility] [address] Performing Lab: [facility] [address] PHOSPHORUS 3.4 mg/dL 2.3-4.3 Jun 12, 2024 07:22 AM [facility] RETICS Specimen Type: BLOOD Comment: Automated Differential Performed Ordering Provider: AYANA MICHELLE Report Released Date/Time: May 26, 2024 09:53 AM Reporting Lab: [facility] [address] Performing Lab: [facility] [address] ABS RETIC 0.0429 0.0300-0.1 000 .RETICULOCYTE 1.06 0.6-2.0 IMMATURE RETIC 5.9 1.0-14.0 .RETICULOCYTE HE 30.5 pg 28.2-36.6 Jun 12, 2024 07:22 AM [facility] COMPREHENSIVE METABOLIC PANEL+MG Specimen Type: PLASMA No comment entered. Ordering Provider: AYANA MICHELLE Report Released Date/Time: May 26, 2024 09:45 AM Reporting Lab: [facility] [address] Performing Lab: [facility] [address] CREATININE 1.0 mg/dL 0.7-1.2 UREA NITROGEN 22 [...] Jun 12, 2024 07:22 AM [facility] CBC & DIFF Specimen Type: BLOOD Comment: Automated Differential Performed Ordering Provider: AYANA MICHELLE Report Released Date/Time: May 26, 2024 09:45 AM Reporting Lab: [facility] [address] Performing Lab: [facility] [address] WBC 6.4 4.0-11.0 RBC 4.05 L 4.60-6.20 [...] Jun 03, 2024 11:17 AM [facility] URINALYSIS Specimen Type: URINE No comment entered. Ordering Provider: ELOISE YEUNG Report Released Date/Time: Jun 03, 2024 10:39 AM Reporting Lab: [facility] [address] Performing Lab: [facility] [address] URINE COLOR YELLOW SPECIFIC GRAVITY 1.018 1.003-1.03 [...] May 20, 2024 09:39 AM [facility] FINGERSTICK GLUCOSE Specimen Type: BLOOD Comment: Save Result Ordering Provider: UNA PHILLIPS Report Released Date/Time: May 20, 2024 03:03 PM Reporting Lab: [facility] [address] Performing Lab: [facility] [address] FINGERSTICK GLUCOSE 148 mg/dL H 70-100 Vital Signs: All taken on the encounter date This section contains inpatient and outpatient Vital Signs collected on the date of the Encounter. Date/Time Temperature Pulse Blood Pressure Respiratory Rate SP02 Pain Height Weight Body Mass Index Source Jun 12, 2024 11:14 AM 97.4 63 119/70 16 97 0 [facility] Jun 12, 2024 10:32 AM 97.7 62 126/83 16 97 0 [facility] Jun 12, 2024 08:50 AM 97.6 77 109/62 20 99 0 68 173.2 26 [facility] Social History: Smoking Status (Most current) and Tobacco Use (All prior to encounter date) This section includes the most current, and the historical, smoking and tobacco- related health factors from the [place] facility where the Encounter took place. Current [...] YRS OR MORE [facility] Aug 15, 2022 09:00 AM VA-TOBACCO FORMER USER [facility] Aug 15, 2022 09:00 AM VA-TOBACCO [...] 7Y OR GREATE R [facility] Radiology Reports: +/- 30 days of [...] BODY W/O CO NTRAST (P): JUAN THOMPSON [id number] -1945 M Exm Date: MAY 20, 2024@09:14 Req Phys: LYUBOV YEUNG Loc: [facility] APACT L RES 03 WH 4F (Req' Img Loc: [facility] MED Service: [place] [address] (Case [id number] COMPLETE) SKULL-THIGH PET IMAGE W/CT (NM Detailed) CPT:42633 Reason for Study: eval for malignancy (Case [...] pager listed below: User placing orders pager: [phone] LAST CREATININE 1.0 (04/22/24) Report Status: Verified Date Reported: MAY 20, 2024 Date Verified: MAY 20, 2024 Hotel Lobby Concierge E-Sig:/ES/RUFUS GROVES MD, FACR, CCD Report: PET/CT [...] Staff: RUFUS GROVES MD, FACR, STAFF RADIOLOGIST (Hotel Lobby Concierge) /BSF RUFUS GROVES [facility] Pathology Reports: +/- 30 days of [...] comes from all [place] treatment facilities. Date/Time Pathology Report Provider Source Jun 16, 2024 12:06 PM [facility] SURGICAL PATHOLOGY REPORT: LOCAL TITLE: LR SURGICAL PATHOLOGY REPORT STANDARD TITLE: PATHOLOGY REPORT DATE OF NOTE: JUN 16, 2024@12:06:01 ENTRY DATE: JUN 16, 2024@12:06:01 AUTHOR: BRIELLE OROURKE COSIGNER: URGENCY: STATUS: COMPLETED $APHDR Reporting Lab: [facility] [CLIA# [id number]] [place] [address] - - - - - - - [...] in cassette B. Grossing performed by: DAVID, Wind Farm Engineer Entered by: DAVID, Wind Farm Engineer Grossing confirmed by: Brielle Orourke, Hematopathologist This report includes the results of laboratory tests utilizing Analyte Specific Reagents or commercially available antibodies ([place] and Lambda CISH Probes). These tests have been developed, fully validated, and their optimal performance characteristics determined by the [facility]. Such tests have not been [...] see also concurrent negative flow cytometry study ([id number]). Imaging studies concerning for possible lytic lesions [...] controls for CD3, CD20, CD34, CD61, CD138, [place] and lambda light chains, and pankeratin are performed on the clot and biopsy sections. Rare blasts are seen. Megakaryocytes appear generally adequate in number and morphology. Scattered and small groups of B- and T-cells are present with T-cells exceeding B-cells. Plasma cells appear normal in number and distribution and appear polyclonal. Pankeratin stain is negative. /pablo/ BRIELLE OROURKE MD STAFF PATHOLOGIST, PATHOLOGY & LABORATORY [facility] Signed Jun 16, 2024@12:06 Performing Laboratory: Surgical Pathology Report Performed By: [facility] [CLIA# [id number]] [place] [address] $FTR - - - - - - - - - - - - - - - - - - - - - - - - - - - - - - - - - - - - - - - - (End of report) BRIELLE OROURKE MD [facility] [place] Jun 16, 2024 - - - - - - - - - - - - - - - - - - - - - - - - - - - - - - - - - - - - - - - - JUAN THOMPSON JR STANDARD FORM 515 ID:[id number] SEX:M :1945 AGE: 78 LOC:[id number] PCP: Sonia Phillips /aneesh OROURKE MD STAFF PATHOLOGIST, PATHOLOGY & LABORATORY [facility] Signed: 06/16/2024 12:06 BRIELLE OROURKE [facility] Jun 16, 2024 12:02 PM LR SURGICAL PATHOLOGY REPORT: LOCAL TITLE: LR SURGICAL PATHOLOGY REPORT STANDARD TITLE: PATHOLOGY REPORT DATE OF NOTE: JUN 16, 2024@12:02:40 ENTRY DATE: JUN 16, 2024@12:02:40 AUTHOR: BRIELLE OROURKE COSIGNER: URGENCY: STATUS: COMPLETED $APHDR Reporting Lab: [facility] [CLIA# [id number]] [place] [address] - - - - - - - [...] - - - PATHOLOGY REPORT Accession No. [id number] - - - - - - - [...] morphologic correlation see bone marrow biopsy report [id number]. Summary: On CD45 vs. side scatter analysis, [...] U.S. Food and Drug Administration. /pablo/ BRIELLE OROURKE MD STAFF PATHOLOGIST, PATHOLOGY & LABORATORY [facility] Signed Jun 16, 2024@12:02 Performing Laboratory: Surgical Pathology Report Performed By: [facility] [CLIA# [id number]] [place] [address] $FTR - - - - - - - - - - - - - - - - - - - - - - - - - - - - - - - - - - - - - - - - (End of report) BRIELLE OROURKE MD [facility] [place] Date Jun 16, 2024 - - - - - - - - - - - - - - - - - - - - - - - - - - - - - - - - - - - - - - - - JUAN THOMPSON JR STANDARD FORM 515 ID:[id number] SEX:M :1945 AGE: 78 LOC:[id number] PCP: Sonia Phillips /pablo/ BRIELLE OROURKE MD STAFF PATHOLOGIST, PATHOLOGY & LABORATORY [facility] Signed: 06/16/2024 12:02 BRIELLE OROURKE [facility] May 14, 2024 10:47 AM LR SURGICAL PATHOLOGY REPORT: LOCAL TITLE: LR SURGICAL PATHOLOGY REPORT STANDARD TITLE: PATHOLOGY REPORT DATE OF NOTE: MAY 14, 2024@10:47:04 ENTRY DATE: MAY 14, 2024@10:47:04 AUTHOR: VIPUL DASILVA EXP COSIGNER: URGENCY: STATUS: COMPLETED $APHDR Reporting Lab: [facility] [CLIA# [id number]] [place] [address] - - - - - - - [...] Surgical Pathology Report Performed By: [facility] [CLIA# [id number]] [place] [address] $FTR - - - - - - [...] - - JUAN THOMPSON STANDARD FORM 515 ID:[id number] SEX:M :1945 AGE: 78 LOC:[id number] PCP: Sonia Phillips /pablo/ VIPUL DASILVA MD STAFF PATHOLOGIST Signed: 05/14/2024 10:47 VIPUL DASILVA [facility]
--- OUTSIDE RECORDS SUMMARY | 2024-07-06 16:22 | XMS_ITS | Encounter Summary ---
Author Name [facility] [place] Organization [facility] [place] Address [address] [place] [address] Care Team Providers Care Water Quality Control Engineer Name Role Phone SONIA PHILLIPS Primary Care [...] PART A Sep 26, 2012 PART A [id number] JUAN THOMPSON JR PATIENT MEDICARE (WNR) MEDICARE (M) PART B Sep 26, 2012 PART B [id number] [phone] JUAN THOMPSON JR PATIENT Selected Encounter This section includes the information on record at [place] for the Encounter. Date/Time Encounter Type Encounter Description Reason Pro vider Source Jun 11, 2024 09:17 AM Outpatient Encounter SOCIAL WORK SERVICE IHE Encounter Template Text not used by [facility] Plan of Treatment: Future Appointments (+ 6 months) and Future Tests (+/- 45 days) The Plan of Treatment section includes future care activities for the [facility] This section includes future appointments and future orders which are active, pending or scheduled. Future Appointments This section includes appointments that were scheduled to occur 6 months from the date of the Encounter, up to a maximum of 20 appointments. The data comes from all [facility]. Appointment Date/Time Appointment Type Appointme nt Facility Name Jun 12, 2024 07:30 AM AM[facility] - NONE [facility] Jun 12, 2024 08:30 AM [facility] Jun 23, 2024 10:15 [facility] Jul 06[facility] 2024 08:30 AM [facility] Jul 16, 2024 07:30 AM [facility] Jul 16, 2024 08:30 [facility] Jul 16, 2024 09:00 AM [facility] 16, 2024 09:30 AM [facility] Oct 07, 2024 09:00 AM [facility] Oct 19, 2024 09:30 AM AMBULATORY - NEUROLOGY [facility] Active, Pending, and Scheduled Orders This section includes a listing of several types of active, pending, and scheduled orders, including clinic medications orders, diagnostic test orders, procedure orders and consult orders; where the start date of the order is 45 days before the date of the Encounter or 45 days after the date of theEncounter. The data comes from all [facility]. Test Date/Time Test Type Test Details Facility Name Jun 19, 2024 04:32 PM Consult Order COMMUNITY CARE-NUCLEAR MEDICINE Cons Manager Corporate Strategy's Choice [facility] Lab Results: +/- 30 days of [...] Range Comment Jun 12, 2024 07:22 AM [facility] PHOSPHORUS Specimen Type: PLASMA No comment entered. Ordering Provider: JAVIER MICHELLE Report Released Date/Time: May 26, 2024 09:45 AM Reporting Lab: [facility] [address] Performing Lab: [facility] [address] PHOSPHORUS 3.4 mg/dL 2.3-4.3 Jun 12, 2024 07:22 AM [facility] RETICS Specimen Type: BLOOD Comment: Automated Differential Performed Ordering Provider: JAVIER MICHELLE Report Released Date/Time: May 26, 2024 09:53 AM Reporting Lab: [facility] [address] Performing Lab: [facility] [address] ABS RETIC 0.0429 0.0300-0.1 000 .RETICULOCYTE 1.06 0.6-2.0 IMMATURE RETIC 5.9 1.0-14.0 .RETICULOCYTE HE 30.5 pg 28.2-36.6 Jun 12, 2024 07:22 AM [facility] COMPREHENSIVE METABOLIC PANEL+MG Specimen Type: PLASMA No comment entered. Ordering Provider: JAVIER MICHELLE Report Released Date/Time: May 26, 2024 09:45 AM Reporting Lab: [facility] [address] Performing Lab: [facility] [address] CREATININE 1.0 mg/dL 0.7-1.2 UREA NITROGEN 22 [...] 78 >60 Jun 12, 2024 07:22 AM [facility] CBC & DIFF Specimen Type: BLOOD Comment: Automated Differential Performed Ordering Provider: JAVIER MICHELLE Report Released Date/Time: May 26, 2024 09:45 AM Reporting Lab: [facility] [address] Performing Lab: [facility] [address] WBC 6.4 4.0-11.0 RBC 4.05 L 4.60-6.20 [...] pg 28.2-36.6 Jun 03, 2024 11:17 AM [facility] URINALYSIS Specimen Type: URINE No comment entered. Ordering Provider: LYUBOV YEUNG Report Released Date/Time: Jun 03, 2024 10:39 AM Reporting Lab: [facility] [address] Performing Lab: [facility] [address] URINE COLOR YELLOW SPECIFIC GRAVITY 1.018 1.003-1.03 [...] 75 NEGATIVE May 20, 2024 09:39 AM [facility] FINGERSTICK GLUCOSE Specimen Type: BLOOD Comment: Save Result Ordering Provider: TANK PHILLIPS Report Released Date/Time: May 20, 2024 03:03 PM Reporting Lab: [facility] [address] Performing Lab: [facility] [address] FINGERSTICK GLUCOSE 148 mg/dL H 70-100 May 13, 2024 11:44 AM [facility] KAPPA/LAMBDA LC FREE,RATIO Specimen Type: SERUM [...] therapy of these disorders. Test Performed by [facility] [place], [facility], [address] [place] [address] Devante Meyer M.D., Ph.D., Director of Laboratories , [place] [id number] Ordering Provider: RENUKA JOHNSON Report Released Date/Time: Apr 24, 2024 04:08 PM Reporting Lab: [facility] [address] Performing Lab: [address] .KAPPA LT CHAIN,FREE 27.3 mg/L H 3.3-19.4 .LAMBDA LC,FREE 15.8 mg/L 5.7-26.3 .KAPPA/LAMBDA, FREE 1.73 H 0.26-1.65 May 13, 2024 11:44 AM [facility] LD,TOTAL Specimen Type: PLASMA No comment entered. Ordering Provider: RENUKA JOHNSON Report Released Date/Time: Apr 24, 2024 04:08 PM Reporting Lab: [facility] [address] Performing Lab: [facility] [address] LD,TOTAL 141 U/L 125-220 May 13, 2024 11:44 AM [facility] URIC ACID Specimen Type: PLASMA No comment entered. Ordering Provider: RENUAK JOHNSON Report Released Date/Time: Apr 24, 2024 04:08 PM Reporting Lab: [facility] [address] Performing Lab: [facility] [address] URIC ACID 3.1 mg/dL L 3.7-7.7 May 13, 2024 11:44 AM [facility] B 12 Specimen Type: SERUM No comment entered. Ordering Provider: RENUKA JOHNSON Report Released Date/Time: Apr 24, 2024 04:08 PM Reporting Lab: [facility] [address] Performing Lab: [facility] [address] B 12 722 pg/mL 213-816 May 13, 2024 11:44 AM [facility] FOLATE Specimen Type: SERUM No comment entered. Ordering Provider: RENUKA JOHNSON Report Released Date/Time: Apr 24, 2024 04:08 PM Reporting Lab: [facility] [address] Performing Lab: [facility] [address] FOLATE 14.6 ng/mL >7.0 May 13, 2024 11:44 AM [facility] PHOSPHORUS Specimen Type: PLASMA No comment entered. Ordering Provider: RENUKA JOHNSON Report Released Date/Time: Apr 24, 2024 04:08 PM Reporting Lab: [facility] [address] Performing Lab: [facility] [address] PHOSPHORUS 3.3 mg/dL 2.3-4.3 May 13, 2024 11:44 AM [facility] IRON GROUP Specimen Type: SERUM No comment entered. Ordering Provider: RENUKA JOHNSON Report Released Date/Time: Apr 24, 2024 04:08 PM Reporting Lab: [facility] [address] Performing Lab: [facility] [address] IRON 101 ug/dL 65-175 TIBC,CALCULATE D 313 ug/dL 250-425 FERRITIN pending IRON SATURATION 32 20-50 TRANSFERRIN 250 mg/dL 163-382 May 13, 2024 11:44 AM [facility] BETA 2-MICROGLOBULIN Specimen Type: SERUM No comment entered. Ordering Provider: RENUKA JOHNSON Report Released Date/Time: Apr 24, 2024 04:08 PM Reporting Lab: [facility] [address] Performing Lab: [facility] [address] BETA 2-MICROGLOBULI N 3.36 mg/L H 0.97-2.64 May 13, 2024 11:44 AM [facility] PSA Specimen Type: SERUM No comment entered. Ordering Provider: ABBY MEANS Report Released Date/Time: May 12, 2024 08:28 PM Reporting Lab: [facility] [address] Performing Lab: [facility] [address] PSA 0.49 ng/mL <4.00 May 13, 2024 11:44 AM [facility] TOTAL IMMUNOGLOB (IGA,IGG,IGM) Specimen Type: PLASMA No comment entered. Ordering Provider: RENUKA JOHNSON Report Released Date/Time: Apr 24, 2024 04:08 PM Reporting Lab: [facility] [address] Performing Lab: [facility] [address] IGM 78.8 mg/dL 22.0-293.0 IGG 714.3 mg/dL 540.0-18 22 .0 IGA 123.8 mg/dL 63.0-645.0 May 13, 2024 11:44 AM [facility] TESTOSTERONE Specimen Type: SERUM No comment entered. Ordering Provider: ABBY MEANS Report Released Date/Time: May 12, 2024 08:30 PM Reporting Lab: [facility] [address] Performing Lab: [facility] [address] TESTOSTERONE 534 ng/dL 221-870 May 13, 2024 11:44 AM [facility] CBC & DIFF Specimen Type: BLOOD Comment: Automated Differential Performed Ordering Provider: RENUKA JOHNSON Report Released Date/Time: Apr 24, 2024 04:08 PM Reporting Lab: [facility] [address] Performing Lab: [facility] [address] WBC 8.3 4.0-11.0 RBC 4.04 L 4.60-6.20 [...] 0.0 0.0-0.1 May 13, 2024 11:44 AM [facility] COMPREHENSIVE METABOLIC PANEL+MG Specimen Type: PLASMA No comment entered. Ordering Provider: RENUKA JOHNSON Report Released Date/Time: Apr 24, 2024 04:08 PM Reporting Lab: [facility] [address] Performing Lab: [facility] [address] CREATININE 1.0 mg/dL 0.7-1.2 UREA NITROGEN 26 [...] 78 >60 May 13, 2024 11:44 AM [facility] PERIPHERAL SMEAR PATHOLOGIST REVIEW Specimen Type: BLOOD No comment entered. Ordering Provider: RENUKA JOHNSON Report Released Date/Time: May 13, 2024 01:51 PM Reporting Lab: [facility] [address] Performing Lab: [facility] [address] PERIPHERAL SMEAR PATHOLOGIST REVIEW SLIDES MADE Social History: Smoking Status (Most current) and Tobacco Use (All prior to encounter date) This section includes the most current, and the historical, smoking and tobacco- related health factors from the [place] facility where the Encounter took place. Current Smoking Status This section includes the most current smoking, or tobacco-related health factor, from the [place] facility where the Encounter took place. Date/Time Current Smoking Status Comment Aj ity Aug 21, 2023 10:30 AM VA-TOBACCO FORMER USER [facility] [...] YRS OR MORE [facility] Aug 15, 2022 09:00 AM VA-TOBACCO FORMER USER [facility] Aug 15, 2022 09:00 AM VA-TOBACCO [...] FORMER TOBACCO USER 7Y OR [facility] Jan 04, 2012 08:36 AM FORMER TOBACCO USER 7Y OR [facility] Bill [facility] Radiology Reports: +/- 30 [...] the Encounter. The data comes from all [place] treatment facilities. Date/Time Radiology Report Provider Source May 20, 2024 09:[address] BODY W/O CO NTRAST (P): JUAN THOMPSON [id number] -1945 M Exm Date: MAY 20, 2024@09:14 Req Phys: LYUBOV YEUNG Loc: [facility] APACT L RES 03 WH 4F (Req' Img Loc: [facility] MED Service: [place] [address] (Case [id number] COMPLETE) SKULL-THIGH PET IMAGE W/CT (NM Detailed) CPT:70543 Reason for Study: eval for malignancy (Case [...] pager listed below: User placing orders pager: [phone] LAST CREATININE 1.0 (04/22/24) Report Status: Verified Date Reported: MAY 20, 2024 Date Verified: MAY 20, 2024 Temper Mill Operator E-Sig:/ES/RUFUS GROVES MD, FACR, CCD Report: PET/CT [...] Staff: RUFUS GROVES MD, FACR, STAFF RADIOLOGIST (Temper Mill Operator) /RUFUS HANEY [facility] Pathology Reports: +/- 30 days of [...] the Encounter. The data comes from all [place] treatment facilities. Date/Time Pathology Report Provider Source Jun 16, 2024 12:06 PM LR SURGICAL PATHOLOGY REPORT: LOCAL TITLE: LR SURGICAL PATHOLOGY REPORT STANDARD TITLE: PATHOLOGY REPORT DATE OF NOTE: JUN 16, 2024@12:06:01 ENTRY DATE: JUN 16, 2024@12:06:01 AUTHOR: BRIELLE AMIN COSIGNER: URGENCY: STATUS: COMPLETED $APHDR Reporting Lab: [facility] [CLIA# [id number]] [place] [address] - - - - - - - [...] in cassette B. Grossing performed by: DAVID, Evp Strategy Entered by: DAVID, Evp Strategy Grossing confirmed by: Brielle Amin, Hematopathologist This report includes the results of laboratory tests utilizing Analyte Specific Reagents or commercially available antibodies (Parkton and Lambda CISH Probes). These tests have been developed, fully validated, and their optimal performance characteristics determined by the [facility]. Such tests have not [...] see also concurrent negative flow cytometry study ([id number]). Imaging studies concerning for possible lytic lesions [...] controls for CD3, CD20, CD34, CD61, CD138, Parkton and lambda light chains, and pankeratin are [...] AMIN MD STAFF PATHOLOGIST, PATHOLOGY & LABORATORY [facility] Signed Jun 16, 2024@12:06 Performing Laboratory: Surgical Pathology Report Performed By: [facility] [CLIA# [id number]] [place] [address] $FTR - - - - - - - - - - - - - - - - - - - - - - - - - - - - - - - - - - - - - - - - (End of report) BRIELLE AMIN MD [facility] Date Jun 16, 2024 - - - - - - - - - - - - - - - - - - - - - - - - - - - - - - - - - - - - - - - - JUAN THOMPSON JR STANDARD FORM 515 ID:[id number] SEX:M :1945 AGE: 78 LOC:[id number] PCP: Sonia Phillisp /pablo/ BRIELLE AMIN MD STAFF PATHOLOGIST, PATHOLOGY & LABORATORY [facility] Signed: 06/16/2024 12:06 BRIELLE AMIN [facility] Jun 16, 2024 12:02 PM LR SURGICAL PATHOLOGY REPORT: LOCAL TITLE: LR SURGICAL PATHOLOGY REPORT STANDARD TITLE: PATHOLOGY REPORT DATE OF NOTE: JUN 16, 2024@12:02:40 ENTRY DATE: JUN 16, 2024@12:02:40 AUTHOR: BRIELLE AMIN EXP COSIGNER: URGENCY: STATUS: COMPLETED $APHDR Reporting Lab: [facility] [CLIA# [id number]] [place] [address] - - - - - - - [...] morphologic correlation see bone marrow biopsy report [id number]. Summary: On CD45 vs. side scatter analysis, [...] MD STAFF PATHOLOGIST, PATHOLOGY & LABORATORY [facility] Signed Jun 16, 2024@12:02 Performing Laboratory: Surgical Pathology Report Performed By: [facility] [CLIA# [id number]] [place] [address] $FTR - - - - - - - - - - - - - - - - - - - - - - - - - - - - - - - - - - - - - - - - (End of report) BRIELLE AMIN MD [facility] Date Jun 16, 2024 - - - - - - - - - - - - - - - - - - - - - - - - - - - - - - - - - - - - - - - - JUAN THOMPSON JR STANDARD FORM 515 ID:[id number] SEX:M :1945 AGE: 78 LOC:[id number] PCP: Sonia Phillips /pablo/ BRIELLE AMIN MD STAFF PATHOLOGIST, PATHOLOGY & LABORATORY [facility] Signed: 06/16/2024 12:02 BRIELLE AMIN [facility] May 14, 2024 10:47 AM LR SURGICAL PATHOLOGY REPORT: LOCAL TITLE: LR SURGICAL PATHOLOGY REPORT STANDARD TITLE: PATHOLOGY REPORT DATE OF NOTE: MAY 14, 2024@10:47:04 ENTRY DATE: MAY 14, 2024@10:47:04 AUTHOR: VIPUL DASILVA EXP COSIGNER: URGENCY: STATUS: COMPLETED $APHDR Reporting Lab: [facility] [CLIA# [id number]] [place] [address] - - - - - - - [...] Performing Laboratory: Surgical Pathology Report Performed By: [facility] [CLIA# [id number]] [place] [address] $FTR - - - - - - [...] - - JUAN THOMPSON STANDARD FORM 515 ID:[id number] SEX:M :1945 AGE: 78 LOC:[id number] PCP: Sonia Phillips /pablo/ VIPUL DASILVA MD STAFF PATHOLOGIST Signed: 05/14/2024 10:47 VIPUL DASILVA [facility] Encounter Notes: All associated encounter notes This section contains the clinical notes associated to the Encounter. Date/Time Encounter Note(s) Provider Source Jun 11, 2024 09:17 AM RESCINDED ADVANCE DIRECTIVE: LOCAL TITLE: GUARDIANSHIP-HISTORICAL STANDARD TITLE: RESCINDED ADVANCE DIRECTIVE DATE OF NOTE: JUN 11, 2024@09:17 ENTRY DATE: JUN 11, 2024@09:17:28 AUTHOR: TIMA STANLEY EXP COSIGNER: URGENCY: STATUS: COMPLETED [place] has a court appointed Guardian of Person: Guardian name: Guardianship Services [facility]: Flor Sanford, Elaina Verdugo, Nathalie Cline, Danya Aviles, and Tima Cassidy Contact information for Guardian: Office Office Cell Phone(s): Khanh Bynum: Flor Diaz: Elaina Verdugo: Nathalie Cline: Danya Aviles: [address] [place] [address] [address] [place] [address] Effective Date of Guardianship: 05/01/2021 If applicable, expiration date of Guardianship: Court documents sent to scanning to be scanned into [employer]: Yes /pablo/ TIMA STANLEY Senior Delivery Recruiter Signed: 06/11/2024 09:19 TIMA STANLEY [facility]
--- OUTSIDE RECORDS SUMMARY | 2024-07-06 16:22 | XMS_ITS | Encounter Summary ---
Author Name [facility] [place] [facility] [place] [facility] [place] [place] Address [address] [place] [address] Care Team Providers Care Educational Administration Teacher Name Role Phone SONIA PHILLIPS Primary Care [...] PART A Sep 26, 2012 PART A [id number] JUAN THOMPSON JR PATIENT MEDICARE (WNR) MEDICARE (M) PART B Sep 26, 2012 PART B [id number] [phone] JUAN THOMPSON JR PATIENT Selected Encounter This section includes the information on [place] at [place] for the [place]counter. Date/Time Encounter Type Encounter Description Reason Pro vider Source Jun 04, 2024 05:07 PM Outpatient Encounter TELEPHONE/MEDICINE IHE Encounter Template Text not used by [facility] Plan of Treatment: Future Appointments (+ 6 months) and Future Tests (+/- 45 days) The Plan of Treatment section includes future care activities for the patient from [facility] [place] [facility] This section includes future appointments and future orders which are active, pending or scheduled. Future Appointments This section includes appointments that were scheduled to occur 6 months from the date of the Encounter, up to a maximum of 20 appointments. The data comes from all [facility]. Appointment Date/Time Appointment Type Appointme nt Facility Name Jun 05, 2024 01:30 PM AM[place]UL[place]ORY [place] [facility] Jun 12, 2024 07:30 AM [facility] Jun 12, 2024 08:30 AM [facility] Jun 23, 2024 10:15 AM [facility] Jul 06, 2024 08:30 AM [facility] Jul 16, 2024 07:30 AM [facility] [facility] Jul 16, 2024 08:30 AM [place] [place] [facility] Jul 16, 2024 09:00 AM [facility] Jul 16, 2024 09:30 AM AMBUL[place] [facility] Oct 07, 2024 09:00 AM [facility] [place] [facility] Oct 19, 2024 09:30 AM AMBULATORY - NEUROLOGY [facility] Active, Pending, and Scheduled Orders This section includes a listing of several types of active, pending, and scheduled orders, including clinic medications orders, diagnostic test orders, procedure orders and consult orders; where the start date of the order is 45 days before the date of the Encounter or 45 days after the date of theEncounter. The data comes from all [facility]. Test Date/Time Test Type Test Details Facility Name Jun 19, 2024 04:32 PM Consult Order COMMUNITY CARE-NUCLEAR MEDICINE Cons Software Integration Developer's Choice [facility] Lab Results: +/- 30 days [...] Range Comment Jun 12, 2024 07:22 AM [facility] PHOSPHORUS Specimen Type: PLASMA No comment entered. Ordering Provider: JAVIER MICHELLE Report Released Date/Time: May 26, 2024 09:45 AM Reporting Lab: [facility] [address] Performing Lab: [facility] [address] PHOSPHORUS 3.4 mg/dL 2.3-4.3 Jun 12, 2024 07:22 AM [facility] RETICS Specimen Type: BLOOD Comment: Automated Differential Performed Ordering Provider: JAVIER MICHELLE Report Released Date/Time: May 26, 2024 09:53 AM Reporting Lab: [facility] [address] Performing Lab: [facility] [address] ABS RETIC 0.0429 0.0300-0.1 000 .RETICULOCYTE 1.06 0.6-2.0 IMMATURE RETIC 5.9 1.0-14.0 .RETICULOCYTE HE 30.5 pg 28.2-36.6 Jun 12, 2024 07:22 AM [facility] COMPREHENSIVE METABOLIC PANEL+MG Specimen Type: PLASMA No comment entered. Ordering Provider: JAVIER MICHELLE Report Released Date/Time: May 26, 2024 09:45 AM Reporting Lab: [facility] [address] Performing Lab: [facility] [address] CREATININE 1.0 mg/dL 0.7-1.2 UREA NITROGEN 22 [...] 78 >60 Jun 12, 2024 07:22 AM [facility] CBC & DIFF Specimen Type: BLOOD Comment: Automated Differential Performed Ordering Provider: JAVIER MICHELLE Report Released Date/Time: May 26, 2024 09:45 AM Reporting Lab: [facility] [address] Performing Lab: [facility] [address] WBC 6.4 4.0-11.0 RBC 4.05 L 4.60-6.20 [...] pg 28.2-36.6 Jun 03, 2024 11:17 AM [facility] URINALYSIS Specimen Type: URINE No comment entered. Ordering Provider: LYUBOV YEUNG Report Released Date/Time: Jun 03, 2024 10:39 AM Reporting Lab: [facility] [address] Performing Lab: [facility] [address] URINE COLOR YELLOW SPECIFIC GRAVITY 1.018 1.003-1.03 [...] 75 NEGATIVE May 20, 2024 09:39 AM [facility] FINGERSTICK GLUCOSE Specimen Type: BLOOD Comment: Save Result Ordering Provider: TANK PHILLIPS Report Released Date/Time: May 20, 2024 03:03 PM Reporting Lab: [facility] [address] Performing Lab: [facility] [address] FINGERSTICK GLUCOSE 148 mg/dL H 70-100 May 13, 2024 11:44 AM [facility] KAPPA/LAMBDA LC FREE,RATIO Specimen Type: [...] therapy of these disorders. Test Performed by [facility], [address] [place] [address] Devante Meyer M.D., Ph.D., Director of Laboratories , [place] [id number] Ordering Provider: RENUKA JOHNSON Report Released Date/Time: Apr 24, 2024 04:08 PM Reporting Lab: [facility] [address] Performing Lab: [address] .KAPPA LT CHAIN,FREE 27.3 mg/L H 3.3-19.4 .LAMBDA LC,FREE 15.8 mg/L 5.7-26.3 .KAPPA/LAMBDA, FREE 1.73 H 0.26-1.65 May 13, 2024 11:44 AM [facility] LD,TOTAL Specimen Type: PLASMA No comment entered. Ordering Provider: RENUKA JOHNSON Report Released Date/Time: Apr 24, 2024 04:08 PM Reporting Lab: [facility] [address] Performing Lab: [facility] [address] LD,TOTAL 141 U/L 125-220 May 13, 2024 11:44 AM [facility] URIC ACID Specimen Type: PLASMA No comment entered. Ordering Provider: RENUKA JOHNSON Report Released Date/Time: Apr 24, 2024 04:08 PM Reporting Lab: [facility] [address] Performing Lab: [facility] [address] URIC ACID 3.1 mg/dL L 3.7-7.7 May 13, 2024 11:44 AM [facility] B 12 Specimen Type: SERUM No comment entered. Ordering Provider: RENUKA JOHNSON Report Released Date/Time: Apr 24, 2024 04:08 PM Reporting Lab: [facility] [address] Performing Lab: [facility] [address] B 12 722 pg/mL 213-816 May 13, 2024 11:44 AM [facility] FOLATE Specimen Type: SERUM No comment entered. Ordering Provider: RENUKA JOHNSON Report Released Date/Time: Apr 24, 2024 04:08 PM Reporting Lab: [facility] [address] Performing Lab: [facility] [address] FOLATE 14.6 ng/mL >7.0 May 13, 2024 11:44 AM [facility] PHOSPHORUS Specimen Type: PLASMA No comment entered. Ordering Provider: RENUKA JOHNSON Report Released Date/Time: Apr 24, 2024 04:08 PM Reporting Lab: [facility] [address] Performing Lab: [facility] [address] PHOSPHORUS 3.3 mg/dL 2.3-4.3 May 13, 2024 11:44 AM [facility] IRON GROUP Specimen Type: SERUM No comment entered. Ordering Provider: RENUKA JOHNSON Report Released Date/Time: Apr 24, 2024 04:08 PM Reporting Lab: [facility] [address] Performing Lab: [facility] [address] IRON 101 ug/dL 65-175 TIBC,CALCULATE D 313 ug/dL 250-425 FERRITIN pending IRON SATURATION 32 20-50 TRANSFERRIN 250 mg/dL 163-382 May 13, 2024 11:44 AM [facility] PSA Specimen Type: SERUM No comment entered. Ordering Provider: ABBY MEANS Report Released Date/Time: May 12, 2024 08:28 PM Reporting Lab: [facility] [address] Performing Lab: [facility] [address] PSA 0.49 ng/mL <4.00 May 13, 2024 11:44 AM [facility] BETA 2-MICROGLOBULIN Specimen Type: SERUM No comment entered. Ordering Provider: RENUKA JOHNSON Report Released Date/Time: Apr 24, 2024 04:08 PM Reporting Lab: [facility] [address] Performing Lab: [facility] [address] BETA 2-MICROGLOBULI N 3.36 mg/L H 0.97-2.64 May 13, 2024 11:44 AM [facility] TOTAL IMMUNOGLOB (IGA,IGG,IGM) Specimen Type: PLASMA No comment entered. Ordering Provider: RENUKA JOHNSON Report Released Date/Time: Apr 24, 2024 04:08 PM Reporting Lab: [facility] [address] Performing Lab: [facility] [address] IGM 78.8 mg/dL 22.0-293.0 IGG 714.3 mg/dL 540.0-18 22 .0 IGA 123.8 mg/dL 63.0-645.0 May 13, 2024 11:44 AM [facility] TESTOSTERONE Specimen Type: SERUM No comment entered. Ordering Provider: ABBY MEANS Report Released Date/Time: May 12, 2024 08:30 PM Reporting Lab: [facility] [address] Performing Lab: [facility] [address] TESTOSTERONE 534 ng/dL 221-870 May 13, 2024 11:44 AM [facility] CBC & DIFF Specimen Type: BLOOD Comment: Automated Differential Performed Ordering Provider: RENUKA JOHNSON Report Released Date/Time: Apr 24, 2024 04:08 PM Reporting Lab: [facility] [address] Performing Lab: [facility] [address] WBC 8.3 4.0-11.0 RBC 4.04 L 4.60-6.20 [...] 0.0 0.0-0.1 May 13, 2024 11:44 AM [facility] COMPREHENSIVE METABOLIC PANEL+MG Specimen Type: PLASMA No comment entered. Ordering Provider: RENUKA JOHNSON Report Released Date/Time: Apr 24, 2024 04:08 PM Reporting Lab: [facility] [address] Performing Lab: [facility] [address] CREATININE 1.0 mg/dL 0.7-1.2 UREA NITROGEN 26 [...] 78 >60 May 13, 2024 11:44 AM [facility] PERIPHERAL SMEAR PATHOLOGIST REVIEW Specimen Type: BLOOD No comment entered. Ordering Provider: RENUKA JOHNSON Report Released Date/Time: May 13, 2024 01:51 PM Reporting Lab: [facility] [address] Performing Lab: [facility] [address] PERIPHERAL SMEAR PATHOLOGIST REVIEW SLIDES MADE Social History: Smoking Status (Most current) and Tobacco Use (All prior to encounter date) This section includes the most current, and the historical, smoking and tobacco- related health factors from the [place] facility where the Encounter took place. Current Smoking Status This section includes the most current smoking, or tobacco-related health factor, from the [place] facility where the Encounter took place. Date/Time Current Smoking Status Comment Facil ity Aug 21, 2023 10:30 AM VA-TOBACCO FORMER USER [facility] Tobacco Use History This section includes a history of the smoking, or tobacco-related health factors, that were collected on or before the date of the Encounter. The data comes from the [place] facility where the Encounter took place. Date/Time Smoking Status/Tobacco Use Comment F acility Aug 21, 2023 10:30 AM VA-TOBACCO QUIT 15 YRS OR MORE [facility] Aug 15, 2022 09:00 AM VA-TOBACCO FORMER USER [facility] Aug 15, 2022 09:00 AM VA-TOBACCO QUIT 15 YRS OR MORE [facility] Aug 21, 2021 01:00 PM VA-TOBACCO FORMER USER [facility] Aug 21, 2021 01:00 PM VA-TOBACCO QUIT 15 YRS OR MORE [facility] Jul 09, 2018 08:58 AM VA-TOBACCO FORMER USER [facility] Jul 09, 2018 08:58 AM VA-TOBACCO QUIT 15 YRS OR MORE [facility] Jul 18, 2017 09:58 AM FORMER TOBACCO USER 7Y OR GREATE R [facility] Aug 14, 2016 10:59 AM FORMER TOBACCO USER 7Y OR GREATE R [facility] Jun 29, 2015 02:03 PM FORMER TOBACCO USER 7Y OR MARVAE R [facility] Jan 06, 2014 03:04 PM FORMER TOBACCO USER 7Y OR MARVAE R [facility] Jan 04, 2012 08:36 AM FORMER TOBACCO USER 7Y OR KIAH R [facility] Radiology Reports: +/- 30 days [...] BODY W/O CO NTRAST (P): JUAN THOMPSON [id number] -1945 M Exm Date: MAY 20, 2024@09:14 Req Phys: LYUBOV YEUNG Loc: [facility] APACT L RES 03 WH 4F (Req' Img Loc: [facility] MED Service: [place] [address] (Case [id number] COMPLETE) SKULL-THIGH PET IMAGE W/CT (NM Detailed) CPT:54275 Reason for Study: eval for malignancy (Case [...] pager listed below: User placing orders pager: [phone] LAST CREATININE 1.0 (04/22/24) Report Status: Verified Date Reported: MAY 20, 2024 Date Verified: MAY 20, 2024 Mold Sheet Cleaner E-Sig:/ES/RUFUS GROVES MD, FACR, CCD Report: PET/CT [...] Staff: RUFUS GROVES MD, FACR, STAFF RADIOLOGIST (Mold Sheet Cleaner) /BSF RUFUS GROVES [facility] Pathology Reports: +/- 30 days [...] comes from all [place] treatment facilities. Date/Time Pathology Report Provider Source Jun 16, 2024 12:06 PM [facility] SURGICAL PATHOLOGY REPORT: LOCAL TITLE: LR SURGICAL PATHOLOGY REPORT STANDARD TITLE: PATHOLOGY REPORT DATE OF NOTE: JUN 16, 2024@12:06:01 ENTRY DATE: JUN 16, 2024@12:06:01 AUTHOR: BRIELLE OROURKE COSIGNER: URGENCY: STATUS: COMPLETED $APHDR Reporting Lab: [facility] [CLIA# [id number]] [place] [address] - - - - - - - [...] in cassette B. Grossing performed by: DAVID, Youtuber Entered by: DAVID, Youtuber Grossing confirmed by: Brielle Orourke, Hematopathologist This report includes the results of laboratory tests utilizing Analyte Specific Reagents or commercially available antibodies ([place] and Lambda CISH Probes). These tests have been developed, fully validated, and their optimal performance characteristics determined by the [facility]. Such tests have not [...] see also concurrent negative flow cytometry study ([id number]). Imaging studies concerning for possible lytic lesions [...] controls for CD3, CD20, CD34, CD61, CD138, [place] and lambda light chains, and pankeratin are [...] MD STAFF PATHOLOGIST, PATHOLOGY & LABORATORY [facility] Signed Jun 16, 2024@12:06 Performing Laboratory: Surgical Pathology Report Performed By: [facility] [CLIA# [id number]] [place] [address] $FTR - - - - - - - - - - - - - - - - - - - - - - - - - - - - - - - - - - - - - - - - (End of report) BRIELLE OROURKE MD [facility] Date Jun 16, 2024 - - - - - - - - - - - - - - - - - - - - - - - - - - - - - - - - - - - - - - - - JUAN THOMPSON JR STANDARD FORM 515 ID:[id number] SEX:M :1945 AGE: 78 LOC:[id number] PCP: Sonia Phillips /aneesh OROURKE MD STAFF PATHOLOGIST, PATHOLOGY & LABORATORY [facility] [place] Signed: 06/16/2024 12:06 BRIELLE OROURKE [facility] Jun 16, 2024 12:02 PM LR SURGICAL PATHOLOGY REPORT: LOCAL TITLE: LR SURGICAL PATHOLOGY REPORT STANDARD TITLE: PATHOLOGY REPORT DATE OF NOTE: JUN 16, 2024@12:02:40 ENTRY DATE: JUN 16, 2024@12:02:40 AUTHOR: BRIELLE OROURKE EXP COSIGNER: URGENCY: STATUS: COMPLETED $APHDR Reporting Lab: [facility] [CLIA# [id number]] [place] [address] - - - - - - - [...] morphologic correlation see bone marrow biopsy report [id number]. Summary: On CD45 vs. side scatter analysis, [...] MD STAFF PATHOLOGIST, PATHOLOGY & LABORATORY [facility] Signed Jun 16, 2024@12:02 Performing Laboratory: Surgical Pathology Report Performed By: [facility] [CLIA# [id number]] [place] [address] $FTR - - - - - - - - - - - - - - - - - - - - - - - - - - - - - - - - - - - - - - - - (End of report) BRIELLE OROURKE MD [facility] Date Jun 16, 2024 - - - - - - - - - - - - - - - - - - - - - - - - - - - - - - - - - - - - - - - - DONNAJUAN SIRIABHAVYA LANDAVERDE STANDARD FORM 515 ID:[id number] SEX:M :1945 AGE: 78 LOC:[id number] PCP: Sonia Phillips /pablo/ BRIELLE OROURKE MD STAFF PATHOLOGIST, PATHOLOGY & LABORATORY [facility] Signed: 06/16/2024 12:02 BRIELLE OROURKE [facility] May 14, 2024 10:47 AM LR SURGICAL PATHOLOGY REPORT: LOCAL TITLE: LR SURGICAL PATHOLOGY REPORT STANDARD TITLE: PATHOLOGY REPORT DATE OF NOTE: MAY 14, 2024@10:47:04 ENTRY DATE: MAY 14, 2024@10:47:04 AUTHOR: VIPUL DASILVA EXP COSIGNER: URGENCY: STATUS: COMPLETED $APHDR Reporting Lab: [facility] [CLIA# [id number]] [place] [address] - - - - - - - [...] Performing Laboratory: Surgical Pathology Report Performed By: [facility] [CLIA# [id number]] [place] [address] $FTR - - - - - - [...] - JUAN THOMPSON JR STANDARD FORM 515 ID:[id number] SEX:M :1945 AGE: 78 LOC:[id number] PCP: Sonia Phillips /pablo/ VIPUL DASILVA MD STAFF PATHOLOGIST Signed: 05/14/2024 10:47 VIPUL DASILVA [facility]
--- OUTSIDE RECORDS SUMMARY | 2024-07-06 16:22 | XMS_ITS | Encounter Summary ---
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 Date/Time Encounter Type Encounter Description Reason Pro vider Source Jun 04, 2024 09:30 AM OFFICE O/P EST HI 40 MIN PSYCHOGERIATRIC - INDIVIDUAL ICD-10-CM 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, mild, w/o beh/psych/mo od/anx JANETTE HONEYCUTT IN [facility] Encounter Template Text not used by [place] Assessments - Encounter Diagnoses This section includes the primary and secondary diagnoses documented for the Encounter. Date/Time Primary/Secondary Diagnosis Diagnosis Name Provider Source Jun 04, 2024 05:53 PM PRIMARY Dem in other dis classd elswhr, mild, w/o beh/psych/mood/ anx JANETTE HONEYCUTT IN [facility] Jun 04, 2024 05:53 PM SECONDARY Bipolar II disorder JANETTE HONEYCUTT IN [facility] Plan of Treatment: Future Appointments (+ 6 months) and Future Tests (+/- 45 days) The Plan of Treatment section includes future care activities for the patient from all [place] [facility] This section includes future appointments and future orders which are active, pending or scheduled. Future Appointments This section includes appointments that were scheduled to occur 6 months from the date of the Encounter, up to a maximum of 20 appointments. The data comes from all [place] [facility]. Appointment Date/Time Appointment Type Appointme nt Facility Name Jun 05, 2024 01:30 PM [facility] Jun 12, 2024 07:30 AM AMBULATORY - NONE [facility] Jun 12, 2024 08:30 AM AMBULATORY - MEDICINE [facility] Jun 23, 2024 10:15 AM AMBULATORY - MEDICINE [facility] Jul 06, 2024 08:30 AM AMBULATORY - NONE [facility] Jul 16, 2024 07:30 AM [facility] Jul 16, 2024 08:30 AM [facility] Jul 16, 2024 09:00 AM AMBULATORY - PSYCHIATRY [facility] Jul 16, 2024 09:30 AM AMBULATORY - PSYCHIATRY [facility] Oct 07, 2024 09:00 AM [facility] Oct 19, 2024 09:30 AM AMBULATORY - NEUROLOGY [facility] Active, Pending, and Scheduled Orders [...] PM Consult Order COMMUNITY CARE-NUCLEAR MEDICINE Cons Oil Treater's Choice [facility] Lab Results: +/- [...] Jun 12, 2024 07:[address] [facility] PHOSPHORUS Specimen Type: PLASMA No comment entered. Ordering Provider: JAVIER MICHELLE Report Released Date/Time: May 26, 2024 09:45 AM Reporting Lab: [facility] [address] Performing Lab: [facility] [address] PHOSPHORUS 3.4 mg/dL 2.3-4.3 Jun 12, 2024 07:[address] [facility] RETICS Specimen Type: BLOOD Comment: Automated Differential Performed Ordering Provider: JAVIER MICHELLE Report Released Date/Time: May 26, 2024 09:53 AM Reporting Lab: [facility] [address] Performing Lab: [facility] [address] ABS RETIC 0.0429 0.0300-0.1 000 .RETICULOCYTE 1.06 0.6-2.0 IMMATURE RETIC 5.9 1.0-14.0 .RETICULOCYTE HE 30.5 pg 28.2-36.6 Jun 12, 2024 07:[address] [facility] COMPREHENSIVE METABOLIC PANEL+MG Specimen Type: PLASMA No comment entered. Ordering Provider: JAVIER MICHELLE Report Released Date/Time: May 26, 2024 09:45 AM Reporting Lab: [facility] [address] Performing Lab: [facility] [address] CREATININE 1.0 mg/dL 0.7-1.2 UREA NITROGEN 22 [...] Jun 12, 2024 07:[address] [facility] CBC & DIFF Specimen Type: BLOOD Comment: Automated Differential Performed Ordering Provider: JAVIER MICHELLE Report Released Date/Time: May 26, 2024 09:45 AM Reporting Lab: [facility] [address] Performing Lab: [facility] [address] WBC 6.4 4.0-11.0 RBC 4.05 L 4.60-6.20 [...] Jun 03, 2024 11:[address] [facility] URINALYSIS Specimen Type: URINE No comment entered. Ordering Provider: LYUBOV YEUNG Report Released Date/Time: Jun 03, 2024 10:39 AM Reporting Lab: [facility] [address] Performing Lab: [facility] [address] URINE COLOR YELLOW SPECIFIC GRAVITY 1.018 1.003-1.03 [...] May 20, 2024 09:[address] [facility] FINGERSTICK GLUCOSE Specimen Type: BLOOD Comment: Save Result Ordering Provider: TANK PHILLIPS Report Released Date/Time: May 20, 2024 03:03 PM Reporting Lab: [facility] [address] Performing Lab: [facility] [address] FINGERSTICK GLUCOSE 148 mg/dL H 70-100 May 13, 2024 11:[address] [facility] KAPPA/LAMBDA LC FREE,RATIO Specimen Type: [...] therapy of these disorders. Test Per[facility] by [facility], [facility], [address] [place] [address] Devante Meyer M.D., Ph.D., Director of Laboratories , [place] [id number] Ordering Provider: RENUKA JOHNSON Report Released Date/Time: Apr 24, 2024 04:08 PM Reporting Lab: [facility] [address] Performing Lab: [facility] [address] [facility] .KAPPA LT CHAIN,FREE 27.3 mg/L H 3.3-19.4 .LAMBDA LC,FREE 15.8 mg/L 5.7-26.3 .KAPPA/LAMBDA, FREE 1.73 H 0.26-1.65 May 13, 2024 11:[address] [facility] LD,TOTAL Specimen Type: PLASMA No comment entered. Ordering Provider: RENUKA JOHNSON Report Released Date/Time: Apr 24, 2024 04:08 PM Reporting Lab: [facility] [address] Performing Lab: [facility] [address] LD,TOTAL 141 U/L 125-220 May 13, 2024 11:[address] [facility] URIC ACID Specimen Type: PLASMA No comment entered. Ordering Provider: RENUKA JOHNSON Report Released Date/Time: Apr 24, 2024 04:08 PM Reporting Lab: [facility] [address] Performing Lab: [facility] [address] URIC ACID 3.1 mg/dL L 3.7-7.7 May 13, 2024 11:[address] [facility] B 12 Specimen Type: SERUM No comment entered. Ordering Provider: RENUKA JOHNSON Report Released Date/Time: Apr 24, 2024 04:08 PM Reporting Lab: [facility] [address] Performing Lab: [facility] [address] B 12 722 pg/mL 213-816 May 13, 2024 11:[address] [facility] FOLATE Specimen Type: SERUM No comment entered. Ordering Provider: RENUKA JOHNSON Report Released Date/Time: Apr 24, 2024 04:08 PM Reporting Lab: [facility] [address] Performing Lab: [facility] [address] FOLATE 14.6 ng/mL >7.0 May 13, 2024 11:[address] [facility] PHOSPHORUS Specimen Type: PLASMA No comment entered. Ordering Provider: RENUKA JOHNSON Report Released Date/Time: Apr 24, 2024 04:08 PM Reporting Lab: [facility] [address] Performing Lab: [facility] [address] PHOSPHORUS 3.3 mg/dL 2.3-4.3 May 13, 2024 11:[address] [facility] IRON GROUP Specimen Type: SERUM No comment entered. Ordering Provider: RENUKA JOHNSON Report Released Date/Time: Apr 24, 2024 04:08 PM Reporting Lab: [facility] [address] Performing Lab: [facility] [address] IRON 101 ug/dL 65-175 TIBC,CALCULATE D 313 ug/dL 250-425 FERRITIN pending IRON SATURATION 32 20-50 TRANSFERRIN 250 mg/dL 163-382 May 13, 2024 11:[address] [facility] PSA Specimen Type: SERUM No comment entered. Ordering Provider: ABBY MEANS Report Released Date/Time: May 12, 2024 08:28 PM Reporting Lab: [facility] [address] Performing Lab: [facility] [address] PSA 0.49 ng/mL <4.00 May 13, 2024 11:[address] [facility] BETA 2-MICROGLOBULIN Specimen Type: SERUM No comment entered. Ordering Provider: RENUKA JOHNSON Report Released Date/Time: Apr 24, 2024 04:08 PM Reporting Lab: [facility] [address] Performing Lab: [facility] [address] BETA 2-MICROGLOBULI N 3.36 mg/L H 0.97-2.64 May 13, 2024 11:[address] [facility] TOTAL IMMUNOGLOB (IGA,IGG,IGM) Specimen Type: PLASMA No comment entered. Ordering Provider: RENUKA JOHNSON Report Released Date/Time: Apr 24, 2024 04:08 PM Reporting Lab: [facility] [address] Performing Lab: [facility] [address] IGM 78.8 mg/dL 22.0-293.0 IGG 714.3 mg/dL 540.0-18 22 .0 IGA 123.8 mg/dL 63.0-645.0 May 13, 2024 11:[address] [facility] TESTOSTERONE Specimen Type: SERUM No comment entered. Ordering Provider: ABBY MEANS Report Released Date/Time: May 12, 2024 08:30 PM Reporting Lab: [facility] [address] Performing Lab: [facility] [address] TESTOSTERONE 534 ng/dL 221-870 May 13, 2024 11:[address] [facility] CBC & DIFF Specimen Type: BLOOD Comment: Automated Differential Performed Ordering Provider: RENUKA JOHNSON Report Released Date/Time: Apr 24, 2024 04:08 PM Reporting Lab: [facility] [address] Performing Lab: [facility] [address] WBC 8.3 4.0-11.0 RBC 4.04 L 4.60-6.20 [...] May 13, 2024 11:[address] [facility] COMPREHENSIVE METABOLIC PANEL+MG Specimen Type: PLASMA No comment entered. Ordering Provider: RENUKA JOHNSON Report Released Date/Time: Apr 24, 2024 04:08 PM Reporting Lab: [facility] [address] Performing Lab: [facility] [address] CREATININE 1.0 mg/dL 0.7-1.2 UREA NITROGEN 26 [...] May 13, 2024 11:[address] [facility] PERIPHERAL SMEAR PATHOLOGIST REVIEW Specimen Type: BLOOD No comment entered. Ordering Provider: RENUKA JOHNSON Report Released Date/Time: May 13, 2024 01:51 PM Reporting Lab: [facility] [address] Performing Lab: [facility] [address] PERIPHERAL SMEAR PATHOLOGIST REVIEW SLIDES MADE Social [...] 21, 2023 10:30 AM [facility] OR MORE [facility] Aug 15, 2022 09:00 AM [facility]AC[place] FORMER USER [facility] Aug 15, 2022 09:00 AM [...] OR GREATE R [facility] Radiology Reports: +/- 30 days [...] the Encounter. The data comes from [facility]. Date/Time Radiology Report Provider Source May 20, 2024 09:[address] BODY W/O CO NTRAST (P): JUAN THOMPSON [id number] -1945 M Ex Date: MAY 20, 2024@09:14 Req Phys: LYUBOV YEUNG Loc: [facility] APACT L RES 03 WH 4F (Req' Img Loc: [facility] Service: [place] [address] (Case [id number] COMPLETE) SKULL-THIGH PET IMAGE W/CT (NM Detailed) CPT:26175 Reason for Study: eval for malignancy (Case [...] pager listed below: User placing orders pager: [phone] LAST CREATININE 1.0 (04/22/24) Report Status: Verified Date Reported: MAY 20, 2024 Date Verified: MAY 20, 2024 Assurance Manager Insurance E-Sig:/ES/RUFUS GROVES MD, FACR, CCD Report: PET/CT [...] Staff: RUFUS GROVES MD, FACR, STAFF RADIOLOGIST (Assurance Manager Insurance) /BSF RUFUS GROVES [facility] Pathology Reports: +/- 30 days [...] STATUS: COMPLETED $APHDR Reporting Lab: [facility] [CLIA# [id number]] [place] [address] - - - - - - - [...] in cassette B. Grossing performed by: DAVID, Weigher And Grader Entered by: DAVID, Weigher And Grader Grossing confirmed by: Brielle Amin, Hematopathologist This report includes the results of laboratory tests utilizing Analyte Specific Reagents or commercially available antibodies ([place] and Lambda CISH Probes). These tests have been developed, fully validated, and their optimal performance characteristics determined by the [facility]. Such tests have [...] see also concurrent negative flow cytometry study ([id number]). Imaging studies concerning for possible lytic lesions [...] controls for CD3, CD20, CD34, CD61, CD138, [place] and lambda light chains, and pankeratin are [...] MD STAFF PATHOLOGIST, PATHOLOGY & LABORATORY [facility] [place]igned Jun 16, 2024@12:06 Performing Laboratory: Surgical Pathology Report Performed By: [facility] [CLIA# [id number]] [place] [address] $FTR - - - - - - - - - - - - - - - - - - - - - - - - - - - - - - - - - - - - - - - - (End of report) BRIELLE AMIN MD [facility] Date Jun 16, 2024 - - - - - - - - - - - - - - - - - - - - - - - - - - - - - - - - - - - - - - - - JUAN THOMPSON JR STANDARD FORM 515 ID:[id number] SEX:M :1945 AGE: 78 LOC:[id number] PCP: Sonia Phillips /es/ BRIELLE AMIN MD STAFF PATHOLOGIST, PATHOLOGY & LABORATORY MED [facility] Signed: 06/16/2024 12:[address] [facility] Jun 16, 2024 12:02 PM LR SURGICAL PATHOLOGY REPORT: LOCAL TITLE: LR SURGICAL PATHOLOGY REPORT STANDARD TITLE: PATHOLOGY REPORT DATE OF NOTE: JUN 16, 2024@12:02:40 ENTRY DATE: JUN 16, 2024@12:02:40 AUTHOR: BRIELLE AMIN EXP COSIGNER: URGENCY: STATUS: COMPLETED $APHDR Reporting Lab: [facility] [CLIA# [id number]] [place] [address] - - - - - - - [...] morphologic correlation see bone marrow biopsy report [id number]. Summary: On CD45 vs. side scatter analysis, [...] MD STAFF PATHOLOGIST, PATHOLOGY & LABORATORY [facility] Signed Jun 16, 2024@12:02 Performing Laboratory: Surgical Pathology Report Performed By: [facility] [CLIA# [id number]] [place] [address] $FTR - - - - - - - - - - - - - - - - - - - - - - - - - - - - - - - - - - - - - - - - (End of report) BRIELLE AMIN MD [facility] Date Jun 16, 2024 - - - - - - - - - - - - - - - - - - - - - - - - - - - - - - - - - - - - - - - - JUAN THOMPSON STANDARD FORM 515 ID:[id number] SEX:M :1945 AGE: 78 LOC:[id number] PCP: Sonia Phillips /pablo/ BRIELLE AMIN MD STAFF PATHOLOGIST, PATHOLOGY & LABORATORY MED [facility] Signed: 06/16/2024 12:[address] [facility] May 14, 2024 10:47 AM LR SURGICAL PATHOLOGY REPORT: LOCAL TITLE: LR SURGICAL PATHOLOGY REPORT STANDARD TITLE: PATHOLOGY REPORT DATE OF NOTE: MAY 14, 2024@10:47:04 ENTRY DATE: MAY 14, 2024@10:47:04 AUTHOR: VIPUL DASILVA EXP COSIGNER: URGENCY: STATUS: COMPLETED $APHDR Reporting Lab: [facility] [CLIA# [id number]] [place] [address] - - - - - - - [...] - PATHOLOGY REPORT Accession No. [id number] - - - - - - - [...] Surgical Pathology Report Performed By: [facility] [CLIA# [id number]] [place] [address] $FTR - - - - - - [...] - JUAN THOMPSON JR STANDARD FORM 515 ID:[id number] SEX:M :1945 AGE: 78 LOC:[id number] PCP: Sonia Phillips /pablo/ VIPUL DASILVA MD STAFF PATHOLOGIST Signed: 05/14/2024 10:[address] [facility] Encounter Notes: All associated encounter notes This section contains the clinical notes associated to the Encounter. Date/Time Encounter Note(s) Provider Source Jun 04, 2024 09:40 AM PSYCHIATRY E & M NOTE: LOCAL TITLE: PSYCHIATRIC EVALUATION & MANAGEMENT STANDARD TITLE: PSYCHIATRY E & M NOTE DATE OF NOTE: JUN 04, 2024@09:40 ENTRY DATE: JUN 04, 2024@09:40:26 AUTHOR: LORETA HONEYCUTT EXP COSIGNER: URGENCY: STATUS: COMPLETED PSYCHIATRIC EVALUATION & MANAGEMENT Has ADDENDA PSYCHIATRIC EVALUATION AND MANAGEMENT FOLLOW UP VISIT INTERVAL HISTORY: Patient reports he is overall doing well. He feels depression has been well controlled for a while. States due to prolonged psychiatric stability, he is interested in tapering aripriprazole. We discussed that the aripriprazole was initially increased to treat psychotic symptoms. Patient discussed his past experience of communicating with Emma Esparza through the television, he reports he is still fairly certain this was real but is not experiencing it right now. Reports he used to see his mother in the apartment with him during the day. Today he reports no further visual hallucinations of his mother during day recently. He does report vivid dreams, possible hypnopompic hallucinations.Sleep more active dream thakur, keep waking up in the middle of a dream and as I'm waking up I'm not quite sure if I'm dreaming or not. He will think he heard his mother calling, hears her voice really clearly, for a long time imagined she was in the room but that does not happen anymore. One of his most recent experiences was he woke up and thought she was in the room, and he got ready to go help her. He reports he woke to himself getting dressed to go outside at 4am. He reports this only happened once. states he generally quickly realizes he is not in a dream in these instances. Denies recent VH during the day. denies VH of animals across his vision. Denies falling out of bed, years since falling out of bed. Patient overall satisfied with his routine and level of support. I live my own life, I prefer it that way. He has a couple social workers, a guardian. Feels it is a good relationship with his aids social worker and guardian. Physically, denies recent fall. Reports shakiness with certain fine movements. Uses walker to ambulate Cognition not formally assessed. Patient is very attuned and knowledgable to current events. He also has good awareness of recent healthcare. Has a bone biopsy scheduled next week. He is noted to forget his walker and hat when leaving the appointment. Also noted to seem confused about reason for appointment at the outset. ENTAL STATUS EXAM: General: Cooperative, no acute distress, slow gait, uses walker Eye Contact: Good Psychomotor Activity: WNL (Within normal limits) Abnormal Involuntary Movements: None Speech: Regular rate and rhythm, soft at baseline Mood: Euthymic Affect: appropriate, mood congruent Thought Process: logical, organized Thought Content: Denies SI (Suicidal Ideation), HI(Homicidal Ideation) Perceptual disturbances: No AH(Auditory Hallucinations),VH(Visual Hallucinations), or delusions Insight: Fair Judgment: Fair Attention/Concentration: Intact for exam purposes PERTINENT ASSESSMENTS: Neuropsychological testing 01/17/2023: DIAGNOSIS: Unspecified dementia, mild, with other behavioral disturbance (ICD- 10-CM F03.A18) (Primary), Bipolar Disorder, Current Episode Depressed, Severe, with Psychotic Features (ICD-10-CM F31.5) SUMMARY/IMPRESSIONS: The Paradise's presentation is likely consistent with a major neurocognitive disorder (dementia) affecting multiple cognitive domains. Etiology is certainly multifactorial. The 's psychiatric presentation likely plays a prominent role; symptoms of psychosis were evident during the current evaluation and appeared to affect his attention and ability to engage in the assessment; this may be loss prevention representative of his day-to-day functioning. Given his [...] as Alzheimer's disease is less likely. The Paradise's presentation is complex and symptoms may persist and progress, as his history increases his risk for future decline. Further evaluation of his psychiatric symptoms and intervention for management of diabetes and sleep disruption is encouraged. MoCA (09/2021) __ LABS 07/11/2023 HEMOGLOBIN A1C 6.5 H % 4.0 - 6.0 11/06/2022 HEMOGLOBIN A1C 6.4% Collection DT Spec CH LDL-CHO SUMEET LDL NONHDLC *HDL TRIG(NO TR 07/11/2023 10:37 PLASM 110 38 57 53 93 ASSESSMENT: 78 yo male with PMH significant for GERD, hx bariatric surgery, AF, HTN, DM2, MCI, hx psychosis, bipolar 2 disorder, STEPHANIE and MDD, seen today for geriatric psychiatry follow-up. Most recent medication change in October 2022 at which time aripiprazole was increased from 15 to 20 mg for depression and psychotic symptoms. Psychotic symptoms were noted during neuropsychological assessment by Dr. Hess in December 2022 which have now appeared to improve. History of delusions noted (communication with television persona) at that time which have resolved. History of chronic visual hallucinations intermittent VH of his parents reported since 2021 which are more likely due to neurodegenerative disorder than mood disorder w/ psychosis given chronic and fluctuating nature , later onset, absence of correlation with mood episodes. Chart reviewed and there is no clear hx of manic episodes, and was maintained on treatment with two antidepressants and very low dose of aripriprazole until he developed more significant psychotic symptoms in , suggesting these symptoms may be related to neurodegenerative disorder. Also has history of intermittent delirium secondary to hyperglycemia which resulted in fdc admission and guardianship in 2021. His function seems to have improved since then but continues to benefit from assisted living facility and guardian services. Patient with multiple mechanical falls ~Aug 2023, likely multfactorial, concern for Parkinsonsim, evaluated by neurology 10/2023 and has upcoming Nikolay scan to clarify diagnosis. Recently discontinued bupropion to reduce polypharmacy (bupropion strong CYP2D6 inhibitor may increase levels of aripriprazole and increase risk of adverse side effects including dizziness/falls). Discussed that aripriprazole my contribute to Parkinsonism ,mild possible PD symptoms on recent neuro assessment (no tremors, masked facies, reduced blinking.) Plan to reduce the dose and consider either treatment at lowest effective dose or transition to a different antipsychotic (if continued treatment is necessary). 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 Also reports symptoms of parasomnia ? hypnopompic delusions. Denies symptoms of rem sleep behavior disorder though lives alone and sleep not observed. Will consider a sleep study in the future. Will repeat MoCA at follow up appointment and consider repeat neuropsych testing for diagnostic clarity. DIAGNOSIS: #Bipolar II Disorder, most recent episode depressed,mild #Psychosis, unspecified, secondary to neurocognitive disorder vs bipolar disorder #Major Neurocognitive Disorder, multifactoral etiology (vascular , bipolar disorder, h/o delirium, sleep dysfunction) #Parasomnia TREATMENT PLAN: #Bipolar Disorder #Psychosis likely secondary to neurocognitive disorder -Decrease Aripiprazole to 15mg mg po daily. Patient denies recent significant psychotic symptoms and concern that aripriprazole contributing to Parkinsonism. -Will consider changing to quetiapine or pimavanserin if continued psychosis and patient Nikolay scan suggestive of PD/LBD #Major Neurocognitive Disorder -consider starting Acetocholinesterase inhibitor - discuss at next appointment -repeat MoCA at follow up #Bipolar II Disorder vs recurrent MDD -Continue Venlafaxine 150 mg po daily. #Metabolic Lab monitoring: HgA1c 6.5/Lipid panel WNL 06/2023 HgA1c 6.4 10/2022 -AIMS monitoring: AIMS 0 on 10/03/23 -RTC 5-6 Months -Collateral: Guardian: Nathalie Cline: SUICIDE RISK ASSESSMENT: Low acute risk Risk factors: age, gender, race, mental health disease, history of suicide attempt, strained relationship with son per prior reports. Protective factors: established connection with the mental health clinic, motivated to improve mental and physical health, positive connection with legal guardian, safe and supportive living situation, absence of current SI or HI. PERCEIVED ACUTE SUICIDE RISK: Low acute - [...] clinical information in medical record, and care coordination:45 /DO MICHELLE Alex PSYCHIATRIST Signed: 06/04/2024 17:54 06/04/2024 ADDENDUM STATUS: COMPLETED called javier Cline to discuss recommended treatment change (reduction in aripriprazole) and to obtain collateral on patient current physical /cognitive status and function. Message left with clinic contact information requesting call back. /DO MICHELLE Alex PSYCHIATRIST Signed: 06/11/2024 16:29 06/15/2024 ADDENDUM STATUS: COMPLETED Attempted to call back javier Monreal, to consent for treatment change and collateral. Guardian was not reached, message left requesting call back. recieved updated contact info as follows phone: ph: [phone]. /DO MICHELLE Alex PSYCHIATRIST Signed: 06/15/2024 15:06 06/15/2024 ADDENDUM STATUS: COMPLETED Attempted to call javier Cline at [phone], voicemail left with callback number. /DO MICHELLE Alex PSYCHIATRIST Signed: 06/19/2024 17:[address] [facility]
--- OUTSIDE RECORDS SUMMARY | 2024-07-06 16:23 | XMS_ITS | Encounter Summary ---
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 Date/Time Encounter Type Encounter Description Reason Provider Source Jun 23, 2024 10:15 AM OFFICE O/P EST HI 40 MIN ONCOLOGY/TUMOR ICD-10-CM D47.2 Monoclonal gammopathy RENUKA JOHNSON [facility] Encounter Template Text not used by [facility] Assessments - Encounter Diagnoses This section includes the primary and secondary diagnoses documented for the Encounter. Date/Time Primary/Secondary Diagnosis Diagnosis Name Provider Source Jun 23, 2024 10:45 AM PRIMARY Monoclonal gammopathy MARIE MORRIS [facility] Jun 23, 2024 10:45 AM SECONDARY Abnormal findings on diagnostic imaging of prt ms sys ARTUROCHAYO [facility] Jun 23, 2024 10:45 AM SECONDARY Anemia, unspecified [facility] Plan of Treatment: Future Appointments (+ 6 months) and Future Tests (+/- 45 days) The Plan of Treatment section includes future care activities for the patient from all [place] [facility]. This section includes future appointments and future orders which are active, pending or scheduled. Future Appointments This section includes appointments that were scheduled to occur 6 months from the date of the Encounter, up to a maximum of 20 appointments. The data comes from all [facility]. Appointment Date/Time Appointment Type Appointme nt Facility Name Jul 06, 2024 08:30 AM [facility] Jul 16, 2024 07:30 AM [facility] Jul 16, 2024 08:30 AM [facility] Jul 16, 2024 09:00 AM AMBULATORY - PSYCHIATRY [facility] Jul 16, 2024 09:30 AM AMBULATORY - PSYCHIATRY [facility] Oct 07, 2024 09:00 AM AMBULATORY - MEDICINE [facility] Oct 19, 2024 09:30 AM AMBULATORY - NEUROLOGY [facility] Active, Pending, and Scheduled Orders This section includes a listing of several types of active, pending, and scheduled orders, including clinic medications orders, diagnostic test orders, procedure orders and consult orders; where the start date of the order is 45 days before the date of the Encounter or 45 days after the date of theEncounter. The data comes from all [facility]. Test Date/Time Test Type Test Details Facility Name Jun 19, 2024 04:32 PM Consult Order [facility] Cons Project Archivist's Choice [facility] Lab Results: +/- 30 days of the encounter This section includes the Chemistry and Hematology Lab Results on record with [place] for the patient. Radiology Reports and Pathology Reports are provided separately, in subsequent sections. Lab Results This section contains the Chemistry/Hematology Results that were resulted 30 days before or 30 daysafter the date of the Encounter. Date/Time Source Result Type Result - Unit Interpretation Reference Range Comment Jun 12, 2024 07:22 AM [facility] PHOSPHORUS Specimen Type: PLASMA No comment entered. Ordering Provider: AYANA MICHELLE Report Released Date/Time: May 26, 2024 09:45 AM Reporting Lab: [facility] [id number] Performing Lab: [facility] [id number] PHOSPHORUS 3.4 mg/dL 2.3-4.3 Jun 12, 2024 07:22 AM [facility] RETICS Specimen Type: BLOOD Comment: Automated Differential Performed Ordering Provider: AYANA MICHELLE Report Released Date/Time: May 26, 2024 09:53 AM Reporting Lab: [facility] [id number] Performing Lab: [facility] [id number] ABS RETIC 0.0429 0.0300-0.1 000 .RETICULOCYTE 1.06 0.6-2.0 IMMATURE RETIC 5.9 1.0-14.0 .RETICULOCYTE HE 30.5 pg 28.2-36.6 Jun 12, 2024 07:22 AM [facility] COMPREHENSIVE METABOLIC PANEL+MG Specimen Type: PLASMA No comment entered. Ordering Provider: AYANA MICHELLE Report Released Date/Time: May 26, 2024 09:45 AM Reporting Lab: [facility] [id number] Performing Lab: [facility] [id number] CREATININE 1.0 mg/dL 0.7-1.2 UREA NITROGEN 22 [...] 78 >60 Jun 12, 2024 07:22 AM [facility] CBC & DIFF Specimen Type: BLOOD Comment: Automated Differential Performed Ordering Provider: AYANA MICHELLE Report Released Date/Time: May 26, 2024 09:45 AM Reporting Lab: [facility] [id number] Performing Lab: [facility] [id number] WBC 6.4 4.0-11.0 RBC 4.05 L 4.60-6.20 [...] pg 28.2-36.6 Jun 03, 2024 11:17 AM [facility] URINALYSIS Specimen Type: URINE No comment entered. Ordering Provider: ELOISE YEUNG Report Released Date/Time: Jun 03, 2024 10:39 AM Reporting Lab: [facility] [id number] Performing Lab: [facility] [address] [facility] [address] URINE COLOR YELLOW SPECIFIC GRAVITY 1.018 1.003-1.03 5 URINE BILIRUBIN NEGATIVE NEGATIVE URINE KETONES NEGATIVE NEGATIVE URINE GLUCOSE 500 mg/dL <30 URINE PROTEIN NEGATIVE mg/dL <20 URINE PH 6.5 5.0-8.0 URINE WBC/HPF 9 /[HPF] H 0-7 URINE BACTERIA NONE SEEN URINE RBC/HPF 3 /[HPF] 0-3 APPEARANCE CLEAR SQUAMOUS EPITHELIAL <1 /[HPF] URINE BLOOD NEGATIVE NEGATIVE URINE NITRITE NEGATIVE NEGATIVE LEUKOCYTE ESTERASE 75 NEGATIVE Vital Signs: All taken on the encounter date This section contains inpatient and outpatient Vital Signs collected on the date of the Encounter. Date/Time Temperature Pulse Blood Pressure Respiratory Rate SP02 Pain Height Weight Body Mass Index Source Jun 23, 2024 09:59 AM 132/73 [facility] Jun 23, 2024 09:54 AM 97.9 58 142/73 18 99 0 68 176.8 27 [facility] Social History: Smoking Status (Most current) and Tobacco Use (All prior to encounter date) This section includes the most current, and the historical, smoking and tobacco- related health factors from the [place] facility where the Encounter took place. Current Smoking Status This section includes the most current smoking, or tobacco-related health factor, from the [place] facility where the Encounter took place. Date/Time Current Smoking Status Comment Aj woods Aug 21, 2023 10:30 AM VA-TOBACCO QUIT 15 YRS OR MORE [facility] Tobacco Use History This section includes a history of the smoking, or tobacco-related health factors, that were collected on or before the date of the Encounter. The data comes from the [place] facility where the Encounter took place. Date/Time Smoking Status/Tobacco Use Comment Guanakito ortez Aug 21, 2023 10:30 AM VA-TOBACCO QUIT 15 YRS OR MORE [facility] Aug 15, 2022 09:00 AM VA-TOBACCO FORMER USER [facility] Aug 15, 2022 09:00 AM VA-TOBACCO QUIT 15 YRS OR MORE [facility] Aug 21, 2021 01:00 PM VA-TOBACCO FORMER USER [facility] Aug 21, 2021 01:00 PM VA-TOBACCO QUIT 15 YRS OR MORE [facility] Jul 09, 2018 08:58 AM VA-TOBACCO FORMER USER [facility] Jul 09, 2018 08:58 AM VA-TOBACCO QUIT 15 YRS OR MORE [facility] Jul 18, 2017 09:58 AM FORMER TOBACCO USER 7Y OR GREATE R [facility] Aug 14, 2016 10:59 AM FORMER TOBACCO USER 7Y OR GREATE R [facility] Jun 29, 2015 02:03 PM FORMER TOBACCO USER 7Y OR MARVAE R [facility] Jan 06, 2014 03:04 PM FORMER TOBACCO USER 7Y OR GREATE R [facility] Jan 04, 2012 08:36 AM FORMER TOBACCO USER 7Y OR MARVAE R [facility] Pathology Reports: +/- 30 days [...] the Encounter. The data comes from all [facility] facilities. Date/Time Pathology Report Provider Source Jun 16, 2024 12:06 PM LR SURGICAL PATHOL OGY REPORT: LOCAL TITLE: LR SURGICAL PATHOLOGY REPORT STANDARD TITLE: PATHOLOGY REPORT DATE OF NOTE: JUN 16, 2024@12:06:01 ENTRY DATE: JUN 16, 2024@12:06:01 AUTHOR: BRIELLE AMIN COSIGNER: URGENCY: STATUS: COMPLETED $APHDR Reporting Lab: [facility] [CLIA# [id number]] [place] [address] - - - - - - - [...] - - POSTOPERATIVE DIAGNOSIS: Surgeon/physician: JAVIER MICHELLE =-=-=-=-=-=-=-=-=-=-=-=-=-=-=-= -=-=-=-=-=-=-=-=-=-=-=-=-=-=-=- =-=-=-=-=-=-=-=-= - - - - - - - [...] in cassette B. Grossing performed by: DAVID, Financial Reporting Director Entered by: DAVID, Financial Reporting Director Grossing confirmed by: Brielle Amin, Hematopathologist This report includes the results of laboratory tests utilizing Analyte Specific Reagents or commercially available antibodies (Calabash and Lambda CISH Probes). These tests have been developed, fully validated, and their optimal performance characteristics determined by the [facility]. Such tests have not [...] see also concurrent negative flow cytometry study ([id number]). Imaging studies concerning for possible lytic lesions [...] controls for CD3, CD20, CD34, CD61, CD138, Calabash and lambda light chains, and pankeratin are [...] MD STAFF PATHOLOGIST, PATHOLOGY & LABORATORY [facility] Signed Jun 16, 2024@12:06 Performing Laboratory: Surgical Pathology Report Performed By: [facility] [CLIA# [id number]] [place] [address] $FTR - - - - - - - - - - - - - - - - - - - - - - - - - - - - - - - - - - - - - - - - (End of report) BRIELLE AMIN MD [facility] Date Jun 16, 2024 - - - - - - - - - - - - - - - - - - - - - - - - - - - - - - - - - - - - - - - - JUAN THOMPSON JR STANDARD FORM 515 ID:[id number] SEX:M :1945 AGE: 78 LOC:[id number] PCP: Sonia Phillips /pablo/ BRIELLE AMIN MD STAFF PATHOLOGIST, PATHOLOGY & LABORATORY [facility] [place] Signed: 06/16/2024 12:06 BRIELLE AMIN [facility] Jun 16, 2024 12:02 PM LR SURGICAL PATHOL OGY REPORT: LOCAL TITLE: LR SURGICAL PATHOLOGY REPORT STANDARD TITLE: PATHOLOGY REPORT DATE OF NOTE: JUN 16, 2024@12:02:40 ENTRY DATE: JUN 16, 2024@12:02:40 AUTHOR: BRIELLE AMIN EXP COSIGNER: URGENCY: STATUS: COMPLETED $APHDR Reporting Lab: [facility] [CLIA# [id number]] [place] [address] - - - - - - - [...] - - POSTOPERATIVE DIAGNOSIS: Surgeon/physician: JAVIER MICHELLE =-=-=-=-=-=-=-=-=-=-=-=-=-=-=-= -=-=-=-=-=-=-=-=-=-=-=-=-=-=-=- =-=-=-=-=-=-=-=-= - - - - - - - [...] morphologic correlation see bone marrow biopsy report [id number]. Summary: On CD45 vs. side scatter analysis, [...] MD STAFF PATHOLOGIST, PATHOLOGY & LABORATORY [facility] [place] Signed Jun 16, 2024@12:02 Performing Laboratory: Surgical Pathology Report Performed By: [facility] [CLIA# [id number]] [place] [address] $FTR - - - - - - - - - - - - - - - - - - - - - - - - - - - - - - - - - - - - - - - - (End of report) BRIELLE AMIN MD [facility] Date Jun 16, 2024 - - - - - - - - - - - - - - - - - - - - - - - - - - - - - - - - - - - - - - - - DONNAJUAN SIRIA STANDARD FORM 515 ID:[id number] SEX:M :1945 AGE: 78 LOC:[id number] PCP: Sonia Phillips /pablo/ BRIELLE AMIN MD STAFF PATHOLOGIST, PATHOLOGY & LABORATORY [facility] [place] Signed: 06/16/2024 12:02 BRIELLE AMIN [facility] Encounter Notes: All associated encounter notes This section contains the clinical notes associated to the Encounter. Date/Time Encounter Note(s) Provider Source Jun 23, 2024 01:01 PM ADDENDUM: LOCAL TITLE: Addendum STANDARD TITLE: ADDENDUM DATE OF NOTE: JUN 23, 2024@13:01:49 ENTRY DATE: JUN 23, 2024@13:01:50 AUTHOR: RENUKA JOHNSON COSIGNER: URGENCY: STATUS: COMPLETED I saw Mr. Thompson and agree with the fellow note and plan. Pet/ct and bone marrow biopsy do not reveal evidence of malignancy. He has a small monoclonal protein that hem/onc will monitor. However, there are no areas in the mottling of the bone amenable to biopsy. He has a few lung nodules that are small, and a consult to nodule clinic was submitted. Weight loss was likely attributable to his gastric bypass surgery and semaglutide. Weight is up now. Has follow up with endocrinology. Would pursue further malignancy workup if new concerning symptoms arise. /es/ Renuka Johnson MD HEM/ONC STAFF PHYSICIAN Signed: 06/23/2024 13:04 Receipt Acknowledged By: 06/23/2024 13:16 /pablo/ SONIA PHILLIPS MD PHYSICIAN for LYUBOV YEUNG 06/23/2024 13:16 /pablo/ SONIA PHILLIPS MD PHYSICIAN --- Original Document --- 06/23/24 HEME/ONC CLINIC NOTE: Reason for visit (CC): Weight loss, lymphadenopathy - malignancy eval HPI and Interval history: PMHx of Ina en Y bypass (2011), Afib on eliquis, personal history of colonic polyps, mild cognitive disorder, bipolar disorder, >30 year smoking history, lung nodules. Initially seen for consult on 05/13/24 for lytic lesions and non specific LAD noted on CT CAP (03/2024) and ongoing unintentional weight loss for malignancy work up. Recommended PET/CT for further w/u. Follow-up visit 05/26/24 w/ negative assessments - recommended BMBx. Today, he presents for follow-up. He states he has had weakness, fatigue in the last few month. Also endorses chronic history (atleast 6 months) of food getting stuck in his throat. Also endorses around 1 year of gracia loss - 260s prior to ozempic and after starting had weight loss to 158 lbs. Endorses around 6 months of productive cough. Denies any fevers, nightsweats, chills, abdominal pain, chronic constipation, hematochezia, melena, hematuria, hemoptysis. Fmaily history: Paternal grandmother - colon cancer. Chronological pertinent work-up history: - CT CAP 04/20/24: multiple non specific LAD, Mottled appearance to ribs, thoracic, lumbar spine, femoral heads and neck with suggestion of a small lytic lesions within the sacrum and iliacs. RLL opacity 1.4 x 1.1 cm with semisolid components. - 05/13/24: Initial oncology consult (Dr. Johnson) for few months of unintentional weight loss (65+ lb weight loss reported). Concurrently on semaglutide from 10/2022 > 02/2024. - 04/22/24: SPEP, UPEP- no monoclonal protein. - 05/20/24: PET/CT No malignancy. RUL GGO w/ 5mm solid component, likely inflammatory. - EGD 05/08/24 - Gastric body congestion, edema, erosion and erythema. Biopsies negative. Prior Colonoscopy 08/28/2016 - Negative, rec 10 yr f/u. - 05/13/2024: FLC 1.73 (K 27.3 H), PSA 0.49, Immunoglobulins - nl, B12/folate/iron panel - wnl. - BMBx 06/12/2024: Slightly hypercellular bone marrow. neg neoplastic findings. Concurrent flow cytometry negative. Allergies reviewed: SULFAMETHOXAZOLE (Feb 07, 2022) EMPAGLIFLOZIN (Jun 06, 2022) Nursing note and vitals reviewed: == VITAL SIGNS: Tempreture:97.4 F [36.3 C] (06/12/2024 11:14), BP: 119/70 (06/12/2024 11:14), HR: 63 (06/12/2024 11:14), RR: 16 (06/12/2024 11:14), Weight: 173.2 lb [78.56 kg] (06/12/2024 08:50) PHYSICAL EXAMINATION: GENERAL: NAD, appears comfortable. SKIN: Warm, dry, well perfused, normal in texture. No rash on exposed areas. Lymph: No plapable cervical lymph nodes. PULM: Good chest wall expansion. Normal effort on RA MSK: ROM grossly intact. No gross deformities. NEURO: A&O. Moves extremities spontaneously. PSYCH: Affect and mood at baseline. Labs reviewed with patient: CBC: WBC 6.4 (06/12/24) HGB 11.8 L (06/12/24) HCT 37.5 L (06/12/24) PLT 298 (06/12/24) ABS NEUT 3.5 (06/12/24) ABS LYMPH 2.0 (06/12/24) Hg trend: HGB 11.8 L BLOOD (06/12/24 07:22) 11.5 L BLOOD (05/13/24 11:44) 13.0 L BLOOD (04/22/24 08:15) BMP POTASSIUM 4.2 (06/12/24) CO2 32 H (06/12/24) UREA NITROGEN 22 (06/12/24) CREATININE 1.0 (06/12/24) CALCIUM 9.0 (06/12/24) Liver Function tests: SGOT 20 (06/12/24) SGPT 14 (06/12/24) BILIRUBIN, TOTAL 0.2 (06/12/24) ALK PHOSPHATASE 74 (06/12/24) ALBUMIN 3.8 (06/12/24) SLT - Lab Tests Selected Collection DT Specimen Test Name Result Units Ref Range 05/13/2024 11:44 SERUM !! .KAPPA LT CHAIN,F 27.3 H mg/L 3.3 - 19.4 05/13/2024 11:44 SERUM !! .LAMBDA LC,FREE 15.8 mg/L 5.7 - 26.3 05/13/2024 11:44 SERUM !! .KAPPA/LAMBDA,PAULA 1.73 H 0.26 - 1.65 !! Indicates COMMENTS AVAILABLE...Refer to Interim Lab Report. M-SPIKE 1 - NONE FOUND SLT - ELP/IMMUNOFIX,SERUM Collection DT Specimen Test Name Result Units Ref Range 06/12/2024 07:22 PLASMA PROTEIN,TOTAL 5.9 L g/dL 6.4 - 8.3 IGG 714.3 (05/13/24) IGM 78.8 (05/13/24) IGA 123.8 (05/13/24) Collection DT Specimen Test Name Result Units Ref Range 05/13/2024 11:44 PLASMA IGG 714.3 mg/dL 540.0 - 1822.0 Collection DT Specimen Test Name Result Units Ref Range 05/13/2024 11:44 PLASMA IGM 78.8 mg/dL 22.0 - 293.0 Collection DT Specimen Test Name Result Units Ref Range 05/13/2024 11:44 PLASMA IGA 123.8 mg/dL 63.0 - 645.0 LD,TOTAL 141 (05/13/24) SLT - Lab Tests Selected Collection DT Specimen Test Name Result Units Ref Range 05/13/2024 11:44 PLASMA LD,TOTAL 141 U/L 125 - 220 IMAGING/PATHOLOGY: BONE MARROW BIOPSY 06/12/2024 DIAGNOSIS: - Slightly hypercellular bone marrow (50% cellular) with trilineage hematopoietic maturation - No morphologic or immunophenotypic evidence of involvement by a lymphoid or plasma cell neoplasm; no evidence of metastatic carcinoma - Peripheral blood smear with moderate normochromic, normocytic anemia Comment: Please see also concurrent negative flow cytometry study ([id number]). Imaging studies concerning for possible lytic lesions are noted. Bone marrow findings do not provide an explanation for these concerns. Rare lymphoid aggregates are present; however, there is no immunophenotypic evidence of clonal lymphocyte (or plasma cell) populations. FLOW CYTOMETRY 06/12/2024 INTERPRETATION: No immunophenotypic evidence of a lymphoproliferative disorder. No increase in blasts. Plasma cell clonality was not analyzed by this method. For morphologic correlation see bone marrow biopsy report [id number]. CP GASTROENTEROLOGY PROCEDURE EGD -05/08/24 Findings: - A 3 cm hiatal hernia was present. - The middle third of the esophagus and lower third of the esophagus were normal. Biopsies were taken with a cold forceps for histology. - Evidence of a sleeve gastrectomy was found in the gastric body. - This was characterized by congestion, edema, erosion and erythema. Biopsies were taken with a cold forceps for Helicobacter pylori testing. DIAGNOSES: SPEC.1 Stomach; body; biopsy-- -mild to moderate [...] histopathologic abnormalities -no evidence of eosinophilic esophagitis CP GASTROENTEROLOGY PROCEDURE Colonoscopy -08/28/2016 Impression: - The cecum is normal. - [...] colon cancer screening will no longer be SKULL-THIGH PET IMAGE W/CT 05/20/24 Impression: 1. Hyperglycemia. This may decrease the sensitivity of the examination for detecting viable tumor. 2. No malignancy identified. 3. Residual groundglass opacity right upper lobe. This is associated with a 5 mm solid nodule which appears new from April 20, 2024. I would favor the findings are likely inflammatory in nature. If clinically desired, close follow-up can be considered. CT (CAP) CHEST W CONTRAST 04/20/24 Impression: In this patient with history [...] as described in the body the report. PERFORMANCE STATUS ECOG = 1-2 ASSESSMENT/PLAN: 78 year old male with PMHx of Ina en Y bypass (2011), Afib on eliquis, personal history of colonic polyps, mild cognitive disorder, bipolar disorder, >30 year smoking history, lung nodules. Seen for initial consult on 05/13/24 for ongoing weight loss (~65lbs), lytic lesions on CT concerning for malignancy. Diagnosis: 1. Weight loss (>65lbs) on GLP-1; dysphagia 2. Lytic lesions sacrum/iliacs, diffuse mottled appreance of bones 3. Scattered sub cm pulmonary nodules; h/o >30 pack year 4. Normocytic anemia 5. Elevated K light chain -MGUS No definite diagnosis of malignancy based on extensive work-up (as noted below). - Negative SPEP/UPEP 04/22/24. - 05/20/24 PET/CT No malignancy. RUL GGO w/ 5mm solid component, likely inflammatory. - EGD 05/08/24 - Gastric body congestion, edema, erosion and erythema. Biopsies negative. Prior Colonoscopy 08/28/2016 - Negative, rec 10 yr f/u. - 05/13/2024: FLC 1.73 (K 27.3 H), PSA 0.49, Immunoglobulins - nl, B12/folate/iron panel - wnl. - BMBx 06/12/2024: Slightly hypercellular bone marrow. neg neoplastic findings. Concurrent flow cytometry negative. There is no laboratory or imaging evidence of malignancy at this time. His abnormal findings on CT CAP (03/2024) including mottled bone appearance and suggestive sacral/iliac lytic lesions are non-specific and do not have concurrent laboratory evidence of a neoplastic process such as multiple myeloma or other metastatic cancers. This could be seocndary to a metabolic/ chronic bone disorder process such as Pagets disease, sarcoidosis, osteomalacia, osteoporosis; although there are no concurrent abnormalitis in his ALKP, calcium or Vit D (high) levels to suggest one particular etiology. He would benefit from following up with Endocrinology for further evaluations. 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 No evidence of smoldering or multiple myeloma based on labs and bone marrow. - Follow-up with Endocrinology - had appt with Dr. Salvador on 07/16/24 (alerted on this note). - Referral for pulmonary nodule clinic follow-up placed today. - RTC in 6 months w/ labs, LC-MGUS follow-up. Discussed with Dr. Johnson. 40 min spent reviewing lab results, patient history and examination, discussing treatment plan and EHR documentation. /pablo/ MARIE MORRIS HEMATOLOGY ONCOLOGY FELLOW Signed: 06/23/2024 10:40 Receipt Acknowledged By: 06/23/2024 13:01 /pablo/ Renuka Johnson MD HEM/ONC STAFF PHYSICIAN 06/23/2024 10:47 /pablo/ ISAEL SALVADOR MD PHYSICIAN RENUKA JOHNSON [facility] Jun 23, 2024 09:57 AM INTERNAL MEDICINE OUTPATIENT NOTE: LOCAL TITLE: MEDICINE CLINIC NURSING NOTE STANDARD TITLE: INTERNAL MEDICINE OUTPATIENT NOTE DATE OF NOTE: JUN 23, 2024@09:57 ENTRY DATE: JUN 23, 2024@09:57:21 AUTHOR: ROSANA ORANTES EXP COSIGNER: URGENCY: STATUS: COMPLETED TYPE OF VISIT: Appointment Check In Type of appointment: In-person appointment REASON FOR VISIT: scheduled clinic appointment ALLERGIES: SULFAMETHOXAZOLE (Feb 07, 2022) EMPAGLIFLOZIN (Jun 06, 2022) VITAL SIGNS: Blood Pressure: 142/73 (06/23/2024 09:54) 132/73 Pulse: 58 (06/23/2024 09:54) Respiration: 18 (06/23/2024 09:54) Temperature: 97.9 F [36.6 C] (06/23/2024 09:54) Weight: 176.8 lb [80.20 kg] (06/23/2024 09:54) Height: 68 in [172.7 cm] (06/23/2024 09:54) BMI: 26.9 O2 Sat: 99% (06/23/2024 09:54) Pain: 0 (06/23/2024 09:54) PAIN SCREEN: Patient is not having significant pain that they wish to discuss with their provider today. MEDICATION Over the Counter/Herbal Medications: The patient denies taking any outside medications or herbals. /pablo/ ROSANA ORANTES LPN MANAGER PERFORMANCE Signed: 06/23/2024 09:59 ROSANA ORANTES [facility] Jun 23, 2024 09:03 AM HEMATOLOGY AND ONC OLOGY ATTENDING NOTE: LOCAL TITLE: HEME/ONC CLINIC NOTE STANDARD TITLE: HEMATOLOGY AND ONCOLOGY ATTENDING NOTE DATE OF NOTE: JUN 23, 2024@09:03 ENTRY DATE: JUN 23, 2024@09:03:46 AUTHOR: MARIE MORRIS EXP COSIGNER: URGENCY: STATUS: COMPLETED HEME/ONC CLINIC NOTE Has ADDENDA Reason for visit (CC): Weight loss, lymphadenopathy - malignancy eval HPI and Interval history: PMHx of Ina en Y bypass (2011), Afib on eliquis, personal history of colonic polyps, mild cognitive disorder, bipolar disorder, >30 year smoking history, lung nodules. Initially seen for consult on 05/13/24 for lytic lesions and non specific LAD noted on CT CAP (03/2024) and ongoing unintentional weight loss for malignancy work up. Recommended PET/CT for further w/u. Follow-up visit 05/26/24 w/ negative assessments - recommended BMBx. Today, he presents for follow-up. He states he has had weakness, fatigue in the last few month. Also endorses chronic history (atleast 6 months) of food getting stuck in his throat. Also endorses around 1 year of gracia loss - 260s prior to ozempic and after starting had weight loss to 158 lbs. Endorses around 6 months of productive cough. Denies any fevers, nightsweats, chills, abdominal pain, chronic constipation, hematochezia, melena, hematuria, hemoptysis. Fmaily history: Paternal grandmother - colon cancer. Chronological pertinent work-up history: - CT CAP 04/20/24: multiple non specific LAD, Mottled appearance to ribs, thoracic, lumbar spine, femoral heads and neck with suggestion of a small lytic lesions within the sacrum and iliacs. RLL opacity 1.4 x 1.1 cm with semisolid components. - 05/13/24: Initial oncology consult (Dr. Johnson) for few months of unintentional weight loss (65+ lb weight loss reported). Concurrently on semaglutide from 10/2022 > 02/2024. - 04/22/24: SPEP, UPEP- no monoclonal protein. - 05/20/24: PET/CT No malignancy. RUL GGO w/ 5mm solid component, likely inflammatory. - EGD 05/08/24 - Gastric body congestion, edema, erosion and erythema. Biopsies negative. Prior Colonoscopy 08/28/2016 - Negative, rec 10 yr f/u. - 05/13/2024: FLC 1.73 (K 27.3 H), PSA 0.49, Immunoglobulins - nl, B12/folate/iron panel - wnl. - BMBx 06/12/2024: Slightly hypercellular bone marrow. neg neoplastic findings. Concurrent flow cytometry negative. Allergies reviewed: SULFAMETHOXAZOLE (Feb 07, 2022) EMPAGLIFLOZIN (Jun 06, 2022) Nursing note and vitals reviewed: == VITAL SIGNS: Tempreture:97.4 F [36.3 C] (06/12/2024 11:14), BP: 119/70 (06/12/2024 11:14), HR: 63 (06/12/2024 11:14), RR: 16 (06/12/2024 11:14), Weight: 173.2 lb [78.56 kg] (06/12/2024 08:50) PHYSICAL EXAMINATION: GENERAL: NAD, appears comfortable. SKIN: Warm, dry, well perfused, normal in texture. No rash on exposed areas. Lymph: No plapable cervical lymph nodes. PULM: Good chest wall expansion. Normal effort on RA MSK: ROM grossly intact. No gross deformities. NEURO: A&O. Moves extremities spontaneously. PSYCH: Affect and mood at baseline. Labs reviewed with patient: CBC: WBC 6.4 (06/12/24) HGB 11.8 L (06/12/24) HCT 37.5 L (06/12/24) PLT 298 (06/12/24) ABS NEUT 3.5 (06/12/24) ABS LYMPH 2.0 (06/12/24) Hg trend: HGB 11.8 L BLOOD (06/12/24 07:22) 11.5 L BLOOD (05/13/24 11:44) 13.0 L BLOOD (04/22/24 08:15) BMP POTASSIUM 4.2 (06/12/24) CO2 32 H (06/12/24) UREA NITROGEN 22 (06/12/24) CREATININE 1.0 (06/12/24) CALCIUM 9.0 (06/12/24) Liver Function tests: SGOT 20 (06/12/24) SGPT 14 (06/12/24) BILIRUBIN, TOTAL 0.2 (06/12/24) ALK PHOSPHATASE 74 (06/12/24) ALBUMIN 3.8 (06/12/24) SLT - Lab Tests Selected Collection DT Specimen Test Name Result Units Ref Range 05/13/2024 11:44 SERUM !! .KAPPA LT CHAIN,F 27.3 H mg/L 3.3 - 19.4 05/13/2024 11:44 SERUM !! .LAMBDA LC,FREE 15.8 mg/L 5.7 - 26.3 05/13/2024 11:44 SERUM !! .KAPPA/LAMBDA,PAULA 1.73 H 0.26 - 1.65 !! Indicates COMMENTS AVAILABLE...Refer to Interim Lab Report. M-SPIKE 1 - NONE FOUND SLT - ELP/IMMUNOFIX,SERUM Collection DT Specimen Test Name Result Units Ref Range 06/12/2024 07:22 PLASMA PROTEIN,TOTAL 5.9 L g/dL 6.4 - 8.3 IGG 714.3 (05/13/24) IGM 78.8 (05/13/24) IGA 123.8 (05/13/24) Collection DT Specimen Test Name Result Units Ref Range 05/13/2024 11:44 PLASMA IGG 714.3 mg/dL 540.0 - 1822.0 Collection DT Specimen Test Name Result Units Ref Range 05/13/2024 11:44 PLASMA IGM 78.8 mg/dL 22.0 - 293.0 Collection DT Specimen Test Name Result Units Ref Range 05/13/2024 11:44 PLASMA IGA 123.8 mg/dL 63.0 - 645.0 LD,TOTAL 141 (05/13/24) SLT - Lab Tests Selected Collection DT Specimen Test Name Result Units Ref Range 05/13/2024 11:44 PLASMA LD,TOTAL 141 U/L 125 - 220 IMAGING/PATHOLOGY: BONE MARROW BIOPSY 06/12/2024 DIAGNOSIS: - Slightly hypercellular bone marrow (50% cellular) with trilineage hematopoietic maturation - No morphologic or immunophenotypic evidence of involvement by a lymphoid or plasma cell neoplasm; no evidence of metastatic carcinoma - Peripheral blood smear with moderate normochromic, normocytic anemia Comment: Please see also concurrent negative flow cytometry study ([id number]). Imaging studies concerning for possible lytic lesions are noted. Bone marrow findings do not provide an explanation for these concerns. Rare lymphoid aggregates are present; however, there is no immunophenotypic evidence of clonal lymphocyte (or plasma cell) populations. FLOW CYTOMETRY 06/12/2024 INTERPRETATION: No immunophenotypic evidence of a lymphoproliferative disorder. No increase in blasts. Plasma cell clonality was not analyzed by this method. For morphologic correlation see bone marrow biopsy report [id number]. GASTROENTEROLOGY PROCEDURE EGD -05/08/24 Findings: - A 3 cm hiatal hernia was present. - The middle third of the esophagus and lower third of the esophagus were normal. Biopsies were taken with a cold forceps for histology. - Evidence of a sleeve gastrectomy was found in the gastric body. - This was characterized by congestion, edema, erosion and erythema. Biopsies were taken with a cold forceps for Helicobacter pylori testing. DIAGNOSES: SPEC.1 Stomach; body; biopsy-- -mild to moderate [...] histopathologic abnormalities -no evidence of eosinophilic esophagitis CP GASTROENTEROLOGY PROCEDURE Colonoscopy -08/28/2016 Impression: - The cecum is normal. - [...] colon cancer screening will no longer be SKULL-THIGH PET IMAGE W/CT 05/20/24 Impression: 1. Hyperglycemia. This may decrease the sensitivity of the examination for detecting viable tumor. 2. No malignancy identified. 3. Residual groundglass opacity right upper lobe. This is associated with a 5 mm solid nodule which appears new from April 20, 2024. I would favor the findings are likely inflammatory in nature. If clinically desired, close follow-up can be considered. CT (CAP) CHEST W CONTRAST 04/20/24 Impression: In this patient with history [...] as described in the body the report. PERFORMANCE STATUS ECOG = 1-2 ASSESSMENT/PLAN: 78 year old male with PMHx of Ina en Y bypass (2011), Afib on eliquis, personal history of colonic polyps, mild cognitive disorder, bipolar disorder, >30 year smoking history, lung nodules. Seen for initial consult on 05/13/24 for ongoing weight loss (~65lbs), lytic lesions on CT concerning for malignancy. Diagnosis: 1. Weight loss (>65lbs) on GLP-1; dysphagia 2. Lytic lesions sacrum/iliacs, diffuse mottled appreance of bones 3. Scattered sub cm pulmonary nodules; h/o >30 pack year 4. Normocytic anemia 5. Elevated K light chain -MGUS No definite diagnosis of malignancy based on extensive work-up (as noted below). - Negative SPEP/UPEP 04/22/24. - 05/20/24 PET/CT No malignancy. RUL GGO w/ 5mm solid component, likely inflammatory. - EGD 05/08/24 - Gastric body congestion, edema, erosion and erythema. Biopsies negative. Prior Colonoscopy 08/28/2016 - Negative, rec 10 yr f/u. - 05/13/2024: FLC 1.73 (K 27.3 H), PSA 0.49, Immunoglobulins - nl, B12/folate/iron panel - wnl. - BMBx 06/12/2024: Slightly hypercellular bone marrow. neg neoplastic findings. Concurrent flow cytometry negative. There is no laboratory or imaging evidence of malignancy at this time. His abnormal findings on CT CAP (03/2024) including mottled bone appearance and suggestive sacral/iliac lytic lesions are non-specific and do not have concurrent laboratory evidence of a neoplastic process such as multiple myeloma or other metastatic cancers. This could be seocndary to a metabolic/ chronic bone disorder process such as Pagets disease, sarcoidosis, osteomalacia, osteoporosis; although there are no concurrent abnormalitis in his ALKP, calcium or Vit D (high) levels to suggest one particular etiology. He would benefit from following up with Endocrinology for further evaluations. 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 No evidence of smoldering or multiple myeloma based on labs and bone marrow. - Follow-up with Endocrinology - had appt with Dr. Salvador on 07/16/24 (alerted on this note). - Referral for pulmonary nodule clinic follow-up placed today. - RTC in 6 months w/ labs, LC-MGUS follow-up. Discussed with Dr. Johnson. 40 min spent reviewing lab results, patient history and examination, discussing treatment plan and EHR documentation. /pablo/ MARIE MORRIS HEMATOLOGY ONCOLOGY FELLOW Signed: 06/23/2024 10:40 Receipt Acknowledged By: 06/23/2024 13:01 /pablo/ Renuka Johnson MD HEM/ONC STAFF PHYSICIAN 06/23/2024 10:47 /pablo/ ISAEL SALVADOR MD PHYSICIAN 06/23/2024 ADDENDUM STATUS: COMPLETED I saw Mr. Thompson and agree with the fellow note and plan. Pet/ct and bone marrow biopsy do not reveal evidence of malignancy. He has a small monoclonal protein that hem/onc will monitor. However, there are no areas in the mottling of the bone amenable to biopsy. He has a few lung nodules that are small, and a consult to nodule clinic was submitted. Weight loss was likely attributable to his gastric bypass surgery and semaglutide. Weight is up now. Has follow up with endocrinology. Would pursue further malignancy workup if new concerning symptoms arise. /pablo/ Renuka Johnson MD HEM/ONC STAFF PHYSICIAN Signed: 06/23/2024 13:04 Receipt Acknowledged By: * AWAITING SIGNATURE * LYUBOV YEUNG * AWAITING SIGNATURE * SONIA PHILLIPS [facility]
--- OUTSIDE RECORDS SUMMARY | 2024-07-06 16:23 | XMS_ITS | Encounter Summary ---
Author Name [facility] [facility] [place] Address [address] [place] [address] Care Team Providers Care Service Coordinator Name Role Phone SONIA PHILLIPS Primary Care [...] PART A Sep 26, 2012 PART A [id number] [phone] JUAN THOMPSON JR PATIENT MEDICARE (WNR) MEDICARE (M) PART B Sep 26, 2012 PART B [id number] [phone] JUAN THOMPSON JR PATIENT Selected Encounter This section includes the information on record at [place] for the Encounter. Date/Time Encounter Type Encounter Description Reason Provider Source Jun 16, 2024 12:02 PM Outpatient Encounter EVENT (HISTORICAL) BRIELLE OROURKE Encounter Template Text not used by [place] Plan of Treatment: Future Appointments (+ 6 months) and Future Tests (+/- 45 days) The Plan of Treatment section includes future care activities for the patient from all [place] [facility]. This section includes future appointments and future orders which are active, pending or scheduled. Future Appointments This section includes appointments that were scheduled to occur 6 months from the date of the Encounter, up to a maximum of 20 appointments. The data comes from all [place] treatment facilities. Appointment Date/Time Appointment Type Appointme nt Facility Name Jun 23, 2024 10:15 AM [facility] Jul 06, 2024 08:30 AM AMBULATORY - NONE [facility] Jul 16, 2024 07:30 AM [facility] Jul 16, 2024 08:30 AM [facility] Jul 16, 2024 09:00 AM AMBULATORY - PSYCHIATRY [facility] Jul 16, 2024 09:30 AM AMBULATORY - PSYCHIATRY [facility] Oct 07, 2024 09:00 AM [facility] Oct 19, 2024 09:30 AM AMBULATORY - NEUROLOGY [facility] Active, Pending, and Scheduled Orders This section includes a listing of several types of active, pending, and scheduled orders, including clinic medications orders, diagnostic test orders, procedure orders and consult orders; where the start date of the order is 45 days before the date of the Encounter or 45 days after the date of theEncounter. The data comes from all [facility]. Test Date/Time Test Type Test Details Facility Name Jun 19, 2024 04:32 PM Consult Order COMMUNITY CARE-NUCLEAR MEDICINE Cons Ergonomist's Choice [facility] Lab Results: +/- 30 days of the encounter This section includes the Chemistry and Hematology Lab Results on record with [place] for the patient. Radiology Reports and Pathology Reports are provided separately, in subsequent sections. Lab Results This section contains the Chemistry/Hematology Results that were resulted 30 days before or 30 daysafter the date of the Encounter. Date/Time Source Result Type Result - Unit Interpretation Reference Range Comment Jun 12, 2024 07:22 AM [facility] PHOSPHORUS Specimen Type: PLASMA No comment entered. Ordering Provider: AYANA MICHELLE Report Released Date/Time: May 26, 2024 09:45 AM Reporting Lab: [facility] [address] Performing Lab: [facility] [address] PHOSPHORUS 3.4 mg/dL 2.3-4.3 Jun 12, 2024 07:22 AM [facility] RETICS Specimen Type: BLOOD Comment: Automated Differential Performed Ordering Provider: AYANA MICHELLE Report Released Date/Time: May 26, 2024 09:53 AM Reporting Lab: [facility] [address] Performing Lab: [facility] [address] ABS RETIC 0.0429 0.0300-0.1 000 .RETICULOCYTE 1.06 0.6-2.0 IMMATURE RETIC 5.9 1.0-14.0 .RETICULOCYTE HE 30.5 pg 28.2-36.6 Jun 12, 2024 07:22 AM [facility] COMPREHENSIVE METABOLIC PANEL+MG Specimen Type: PLASMA No comment entered. Ordering Provider: AYANA MICHELLE Report Released Date/Time: May 26, 2024 09:45 AM Reporting Lab: [facility] [address] Performing Lab: [facility] [address] CREATININE 1.0 mg/dL 0.7-1.2 UREA NITROGEN 22 [...] 78 >60 Jun 12, 2024 07:22 AM [facility] CBC & DIFF Specimen Type: BLOOD Comment: Automated Differential Performed Ordering Provider: AYANA MICHELLE Report Released Date/Time: May 26, 2024 09:45 AM Reporting Lab: [facility] [address] Performing Lab: [facility] [address] WBC 6.4 4.0-11.0 RBC 4.05 L 4.60-6.20 [...] pg 28.2-36.6 Jun 03, 2024 11:17 AM [facility] URINALYSIS Specimen Type: URINE No comment entered. Ordering Provider: ELOISE YEUNG Report Released Date/Time: Jun 03, 2024 10:39 AM Reporting Lab: [facility] [address] Performing Lab: [facility] [address] URINE COLOR YELLOW SPECIFIC GRAVITY 1.018 1.003-1.03 [...] 75 NEGATIVE May 20, 2024 09:39 AM [facility] FINGERSTICK GLUCOSE Specimen Type: BLOOD Comment: Save Result Ordering Provider: UNA PHILLIPS Report Released Date/Time: May 20, 2024 03:03 PM Reporting Lab: [facility] [address] Performing Lab: [facility] [address] FINGERSTICK GLUCOSE 148 mg/dL H 70-100 Social History: Smoking Status (Most current) and Tobacco Use (All prior to encounter date) This section includes the most current, and the historical, smoking and tobacco- related health factors from the [place] facility where the Encounter took place. Current Smoking Status This section includes the most current smoking, or tobacco-related health factor, from the [place] facility where the Encounter took place. Date/Time Current Smoking Status Comment Facil ity Aug 21, 2023 10:30 AM VA-TOBACCO FORMER USER [facility] Tobacco Use History This section includes a history of the smoking, or tobacco-related health factors, that were collected on or before the date of the Encounter. The data comes from the [place] facility where the Encounter took place. Date/Time Smoking Status/Tobacco Use Comment F acility Aug 21, 2023 10:30 AM VA-TOBACCO QUIT 15 YRS OR MORE [facility] Aug 15, 2022 09:00 AM VA-TOBACCO FORMER USER [facility] Aug 15, 2022 09:00 AM VA-TOBACCO QUIT 15 YRS OR MORE [facility] Aug 21, 2021 01:00 PM VA-TOBACCO FORMER USER [facility] Aug 21, 2021 01:00 PM VA-TOBACCO QUIT 15 YRS OR MORE [facility] Jul 09, 2018 08:58 AM VA-TOBACCO FORMER USER [facility] Jul 09, 2018 08:58 AM VA-TOBACCO QUIT 15 YRS OR MORE [facility] Jul 18, 2017 09:58 AM FORMER TOBACCO USER 7Y OR GREATE R [facility] Aug 14, 2016 10:59 AM FORMER TOBACCO USER 7Y OR GREATE R [facility] Jun 29, 2015 02:03 PM FORMER TOBACCO USER 7Y OR GREATE R [facility] Jan 06, 2014 03:04 PM FORMER TOBACCO USER 7Y OR GREATE R [facility] Jan 04, 2012 08:36 AM FORMER TOBACCO USER 7Y OR GREATE R [facility] Radiology Reports: +/- 30 days of [...] the Encounter. The data comes from all [place] treatment facilities. Date/Time Radiology Report Provider Source May 20, 2024 09:[address] BODY W/O CO NTRAST (P): JUAN THOMPSON [id number] -1945 M Exm Date: MAY 20, 2024@09:14 Req Phys: LYUBOV YEUNG Loc: [facility] APACT L RES 03 WH 4F (Req' Img Loc: NUC MED Service: [place] [address] (Case [id number] COMPLETE) SKULL-THIGH PET IMAGE W/CT (NM Detailed) CPT:45614 Reason for Study: eval for malignancy (Case [...] pager listed below: User placing orders pager: [phone] LAST CREATININE 1.0 (04/22/24) Report Status: Verified Date Reported: MAY 20, 2024 Date Verified: MAY 20, 2024 Registered Travel Nurse E-Sig:/ES/RUFUS GROVES MD, FACR, CCD Report: PET/CT [...] Staff: RUFUS GROVES MD, FACR, STAFF RADIOLOGIST (Registered Travel Nurse) /BSF RUFUS GROVES [facility] Pathology Reports: +/- 30 days of [...] the Encounter. The data comes from all [place] treatment facilities. Date/Time Pathology Report Provider Source Jun 16, 2024 12:06 PM LR SURGICAL PATHOL OGY REPORT: LOCAL TITLE: LR SURGICAL PATHOLOGY REPORT STANDARD TITLE: PATHOLOGY REPORT DATE OF NOTE: JUN 16, 2024@12:06:01 ENTRY DATE: JUN 16, 2024@12:06:01 AUTHOR: BRIELLE OROURKE COSIGNER: URGENCY: STATUS: COMPLETED $APHDR Reporting Lab: [facility] [CLIA# [id number]] [place] [address] - - - - - - - [...] in cassette B. Grossing performed by: DAVID, Retail And Promotions Coordinator Entered by: DAVID, Retail And Promotions Coordinator Grossing confirmed by: Brielle Orourke, Hematopathologist This report includes the results of laboratory tests utilizing Analyte Specific Reagents or commercially available antibodies ([place] and Lambda CISH Probes). These tests have been developed, fully validated, and their optimal performance characteristics determined by the [facility]. Such tests have not [...] see also concurrent negative flow cytometry study ([id number]). Imaging studies concerning for possible lytic lesions [...] controls for CD3, CD20, CD34, CD61, CD138, [place] and lambda light chains, and pankeratin are [...] MD STAFF PATHOLOGIST, PATHOLOGY & LABORATORY MED [facility] Signed Jun 16, 2024@12:06 Performing Laboratory: Surgical Pathology Report Performed By: [facility] [CLIA# [id number]] [place] [address] $FTR - - - - - - - - - - - - - - - - - - - - - - - - - - - - - - - - - - - - - - - - (End of report) BRIELLE OROURKE MD [facility] Date Jun 16, 2024 - - - - - - - - - - - - - - - - - - - - - - - - - - - - - - - - - - - - - - - - JUAN THOMPSON JR STANDARD FORM 515 ID:[id number] SEX:M :1945 AGE: 78 LOC:[id number] PCP: Sonia Phillips /aneesh OROURKE MD STAFF PATHOLOGIST, PATHOLOGY & LABORATORY MED [facility] Signed: 06/16/2024 12:06 BRIELLE OROURKE [facility] Jun 16, 2024 12:02 PM LR SURGICAL PATHOL OGY REPORT: LOCAL TITLE: LR SURGICAL PATHOLOGY REPORT STANDARD TITLE: PATHOLOGY REPORT DATE OF NOTE: JUN 16, 2024@12:02:40 ENTRY DATE: JUN 16, 2024@12:02:40 AUTHOR: BRIELLE OROURKE EXP COSIGNER: URGENCY: STATUS: COMPLETED $APHDR Reporting Lab: [facility] [CLIA# [id number]] [place] [address] - - - - - - - [...] morphologic correlation see bone marrow biopsy report [id number]. Summary: On CD45 vs. side scatter analysis, [...] MD STAFF PATHOLOGIST, PATHOLOGY & LABORATORY MED [facility] Signed Jun 16, 2024@12:02 Performing Laboratory: Surgical Pathology Report Performed By: [facility] [CLIA# [id number]] [place] [address] $FTR - - - - - - - - - - - - - - - - - - - - - - - - - - - - - - - - - - - - - - - - (End of report) BRIELLE OROURKE MD [facility] Date Jun 16, 2024 - - - - - - - - - - - - - - - - - - - - - - - - - - - - - - - - - - - - - - - - JUAN THOMPSON JR STANDARD FORM 515 ID:[id number] SEX:M :1945 AGE: 78 LOC:[id number] PCP: Sonia Phillips /pablo/ BRIELLE OROURKE MD STAFF PATHOLOGIST, PATHOLOGY & LABORATORY MED [facility] Signed: 06/16/2024 12:02 BRIELLE OROURKE [facility] Encounter Notes: All associated encounter notes This section contains the clinical notes associated to the Encounter. Date/Time Encounter Note(s) Provider Source Jun 16, 2024 12:02 PM PATHOLOGY REPORT: LOCAL TITLE: LR SURGICAL PATHOLOGY REPORT STANDARD TITLE: PATHOLOGY REPORT DATE OF NOTE: JUN 16, 2024@12:02:40 ENTRY DATE: JUN 16, 2024@12:02:40 AUTHOR: BRIELLE OROURKE EXP COSIGNER: URGENCY: STATUS: COMPLETED $APHDR Reporting Lab: [facility] [CLIA# [id number]] [place] [address] - - - - - - - [...] morphologic correlation see bone marrow biopsy report [id number]. Summary: On CD45 vs. side scatter analysis, [...] MD STAFF PATHOLOGIST, PATHOLOGY & LABORATORY MED [facility] Signed Jun 16, 2024@12:02 Performing Laboratory: Surgical Pathology Report Performed By: [facility] [CLIA# [id number]] [place] [address] $FTR - - - - - - - - - - - - - - - - - - - - - - - - - - - - - - - - - - - - - - - - (End of report) BRIELLE OROURKE MD [facility] Date Jun 16, 2024 - - - - - - - - - - - - - - - - - - - - - - - - - - - - - - - - - - - - - - - - JUAN THOMPSON JR STANDARD FORM 515 ID:[id number] SEX:M :1945 AGE: 78 LOC:[id number] PCP: Sonia Phillips /aneesh OROURKE MD STAFF PATHOLOGIST, PATHOLOGY & LABORATORY MED [facility] Signed: 06/16/2024 12:02 BRIELLE OROURKE [facility]
--- OUTSIDE RECORDS SUMMARY | 2024-07-06 16:23 | XMS_ITS | Encounter Summary ---
Author Name [facility] [place] Address [address] [place] [address] Care Team Providers Care Sign Carpenter Name Role Phone SONIA PHILLIPS Primary Care [...] PART B Sep 26, 2012 PART B [id number] [phone] JUAN THOMPSON JR PATIENT MEDICARE (WNR) MEDICARE (M) PART A Sep 26, 2012 PART A [id number] [phone] JUAN THOMPSON JR PATIENT Selected Encounter This section includes the information on record at [place] for the Encounter. Date/Time Encounter Type Encounter Description Reason Provider Source Jun 16, 2024 12:06 PM Outpatient Encounter EVENT (HISTORICAL) BRIELLE OROURKE Encounter Template Text not used by [place] Plan of Treatment: Future Appointments (+ 6 months) and Future Tests (+/- 45 days) The Plan of Treatment section includes future care activities for the patient from all [place] [facility]. This section includes future appointments and future orders which are active, pending or scheduled. Future Appointments This section includes appointments that were scheduled to occur 6 months from the date of the Encounter, up to a maximum of 20 appointments. The data comes from all [place] treatment facilities. Appointment Date/Time Appointment Type Appointme nt Facility Name Jun 23, 2024 10:15 AM [facility] Jul 06, 2024 08:30 AM AM[facility]UL[facility] - NONE [facility] Jul 16, 2024 07:30 AM [facility] Jul 16, 2024 08:30 AM [facility] Jul 16, 2024 09:00 AM AMBULATORY - PSYCHIATRY [facility] Jul 16, 2024 09:30 AM AMBULATORY - PSYCHIATRY [facility] Oct 07, 2024 09:00 AM [facility] Oct 19, 2024 09:30 AM AMBULATORY - NEUROLOGY [facility] Active, Pending, and Scheduled Orders This [...] PM Consult Order COMMUNITY CARE-NUCLEAR MEDICINE Cons Wastewater Treatment Supervisor's Choice [facility] Lab Results: +/- 30 days [...] Range Comment Jun 12, 2024 07:22 AM [facility] PHOSPHORUS Specimen Type: PLASMA No comment entered. Ordering Provider: AYANA MICHELLE Report Released Date/Time: May 26, 2024 09:45 AM Reporting Lab: [facility] [address] Performing Lab: [facility] [address] PHOSPHORUS 3.4 mg/dL 2.3-4.3 Jun 12, 2024 07:22 AM [facility] RETICS Specimen Type: BLOOD Comment: Automated Differential Performed Ordering Provider: AYANA MICEHLLE Report Released Date/Time: May 26, 2024 09:53 AM Reporting Lab: [facility] [address] Performing Lab: [facility] [address] ABS RETIC 0.0429 0.0300-0.1 000 .RETICULOCYTE 1.06 0.6-2.0 IMMATURE RETIC 5.9 1.0-14.0 .RETICULOCYTE HE 30.5 pg 28.2-36.6 Jun 12, 2024 07:22 AM [facility] COMPREHENSIVE METABOLIC PANEL+MG Specimen Type: PLASMA No comment entered. Ordering Provider: AYANA MICHELLE Report Released Date/Time: May 26, 2024 09:45 AM Reporting Lab: [facility] [address] Performing Lab: [facility] [address] CREATININE 1.0 mg/dL 0.7-1.2 UREA NITROGEN 22 [...] 78 >60 Jun 12, 2024 07:22 AM [facility] CBC & DIFF Specimen Type: BLOOD Comment: Automated Differential Performed Ordering Provider: AYANA MICHELLE Report Released Date/Time: May 26, 2024 09:45 AM Reporting Lab: [facility] [address] Performing Lab: [facility] [address] WBC 6.4 4.0-11.0 RBC 4.05 L 4.60-6.20 [...] pg 28.2-36.6 Jun 03, 2024 11:17 AM [facility] URINALYSIS Specimen Type: URINE No comment entered. Ordering Provider: ELOISE YEUNG Report Released Date/Time: Jun 03, 2024 10:39 AM Reporting Lab: [facility] [address] Performing Lab: [facility] [address] URINE COLOR YELLOW SPECIFIC GRAVITY 1.018 1.003-1.03 [...] 75 NEGATIVE May 20, 2024 09:39 AM [facility] FINGERSTICK GLUCOSE Specimen Type: BLOOD Comment: Save Result Ordering Provider: UNA PHILLIPS Report Released Date/Time: May 20, 2024 03:03 PM Reporting Lab: [facility] [address] Performing Lab: [facility] [address] FINGERSTICK GLUCOSE 148 mg/dL H 70-100 Social [...] AM VA-TOBACCO QUIT 15 YRS OR MORE [facility] Tobacco Use History This section includes a history of the smoking, or tobacco-related health factors, that were collected on or before the date of the Encounter. The data comes from the [place] facility where the Encounter took place. Date/Time Smoking Status/Tobacco Use Comment F acility Aug 21, 2023 10:30 AM VA-TOBACCO QUIT 15 YRS OR MORE [facility] Aug 15, 2022 09:00 AM VA-TOBACCO FORMER USER [facility] Aug 15, 2022 09:00 AM VA-TOBACCO QUIT 15 YRS OR MORE [facility] Aug 21, 2021 01:00 PM VA-TOBACCO FORMER USER [facility] Aug 21, 2021 01:00 PM VA-TOBACCO QUIT 15 YRS OR MORE [facility] Jul 09, 2018 08:58 AM VA-TOBACCO FORMER USER [facility] Jul 09, 2018 08:58 AM VA-TOBACCO QUIT 15 YRS OR MORE [facility] Jul 18, 2017 09:58 AM FORMER TOBACCO USER 7Y OR GREATE R [facility] Aug 14, 2016 10:59 AM FORMER TOBACCO USER 7Y OR GREATE R [facility] Jun 29, 2015 02:03 PM FORMER TOBACCO USER 7Y OR GREATE R [facility] Jan 06, 2014 03:04 PM FORMER TOBACCO USER 7Y OR GREATE R [facility] Jan 04, 2012 08:36 AM FORMER TOBACCO USER 7Y OR GREATE R [facility] Radiology Reports: +/- 30 days [...] the Encounter. The data comes from all [place] treatment facilities. Date/Time Radiology Report Provider Source May 20, 2024 09:[address] BODY W/O CO NTRAST (P): JUAN THOMPSON [id number] -1945 M Exm Date: MAY 20, 2024@09:14 Req Phys: LYUBOV YEUNG Loc: [facility] APACT L RES 03 WH 4F (Req' Img Loc: NUC MED Service: [place] [address] (Case [id number] COMPLETE) SKULL-THIGH PET IMAGE W/CT (NM Detailed) CPT:70717 Reason for Study: eval for malignancy (Case [...] pager listed below: User placing orders pager: [phone] LAST CREATININE 1.0 (04/22/24) Report Status: Verified Date Reported: MAY 20, 2024 Date Verified: MAY 20, 2024 Test Pilot E-Sig:/ES/RUFUS GROVES MD, FACR, CCD Report: PET/CT [...] Staff: RUFUS GROVES MD, FACR, STAFF RADIOLOGIST (Test Pilot) /BSF RUFUS GROVES [facility] Pathology Reports: +/- 30 days [...] the Encounter. The data comes from all [place] treatment facilities. Date/Time Pathology Report Provider Source Jun 16, 2024 12:06 PM LR SURGICAL PATHOL OGY REPORT: LOCAL TITLE: LR SURGICAL PATHOLOGY REPORT STANDARD TITLE: PATHOLOGY REPORT DATE OF NOTE: JUN 16, 2024@12:06:01 ENTRY DATE: JUN 16, 2024@12:06:01 AUTHOR: BRIELLE OROURKE COSIGNER: URGENCY: STATUS: COMPLETED $APHDR Reporting Lab: [facility] [CLIA# [id number]] [place] [address] - - - - - - - [...] in cassette B. Grossing performed by: DAVID, Fraud Analyst Entered by: DAVID, Fraud Analyst Grossing confirmed by: Brielle Orourke, Hematopathologist This report includes the results of laboratory tests utilizing Analyte Specific Reagents or commercially available antibodies (Burton and Lambda CISH Probes). These tests have been developed, fully validated, and their optimal performance characteristics determined by the [facility] Laboratory Service. Such tests have [...] see also concurrent negative flow cytometry study ([id number]). Imaging studies concerning for possible lytic lesions [...] controls for CD3, CD20, CD34, CD61, CD138, Burton and lambda light chains, and pankeratin are [...] MD STAFF PATHOLOGIST, PATHOLOGY & LABORATORY [facility] Signed Jun 16, 2024@12:06 Performing Laboratory: Surgical Pathology Report Performed By: [facility] [CLIA# [id number]] [place] [address] $FTR - - - - - - - - - - - - - - - - - - - - - - - - - - - - - - - - - - - - - - - - (End of report) BRIELLE OROURKE MD [facility] Date Jun 16, 2024 - - - - - - - - - - - - - - - - - - - - - - - - - - - - - - - - - - - - - - - - JUAN THOMPSON STANDARD FORM 515 ID:[id number] SEX:M :1945 AGE: 78 LOC:[id number] PCP: Sonia Phillips /aneesh OROURKE MD STAFF PATHOLOGIST, PATHOLOGY & LABORATORY [facility] Signed: 06/16/2024 12:06 BRIELLE OROURKE [facility] Jun 16, 2024 12:02 PM LR SURGICAL PATHOL OGY REPORT: LOCAL TITLE: LR SURGICAL PATHOLOGY REPORT STANDARD TITLE: PATHOLOGY REPORT DATE OF NOTE: JUN 16, 2024@12:02:40 ENTRY DATE: JUN 16, 2024@12:02:40 AUTHOR: BRIELLE OROURKE EXP COSIGNER: URGENCY: STATUS: COMPLETED $APHDR Reporting Lab: [facility] [CLIA# [id number]] [place] [address] - - - - - - - [...] morphologic correlation see bone marrow biopsy report [id number]. Summary: On CD45 vs. side scatter analysis, [...] MD STAFF PATHOLOGIST, PATHOLOGY & LABORATORY [facility] Signed Jun 16, 2024@12:02 Performing Laboratory: Surgical Pathology Report Performed By: [facility] [CLIA# [id number]] [place] [address] $FTR - - - - - - - - - - - - - - - - - - - - - - - - - - - - - - - - - - - - - - - - (End of report) BRIELLE OROURKE MD [facility] [place] Date Jun 16, 2024 - - - - - - - - - - - - - - - - - - - - - - - - - - - - - - - - - - - - - - - - JUAN THOMPSON JR STANDARD FORM 515 ID:[id number] SEX:M :1945 AGE: 78 LOC:[id number] PCP: Sonia Phillips /pablo/ BRIELLE OROURKE MD STAFF PATHOLOGIST, PATHOLOGY & LABORATORY [facility] Signed: 06/16/2024 12:02 BRIELLE OROURKE [facility] Encounter Notes: All associated encounter notes This section contains the clinical notes associated to the Encounter. Date/Time Encounter Note(s) Provider Source Jun 16, 2024 12:06 PM PATHOLOGY REPORT: LOCAL TITLE: LR SURGICAL PATHOLOGY REPORT STANDARD TITLE: PATHOLOGY REPORT DATE OF NOTE: JUN 16, 2024@12:06:01 ENTRY DATE: JUN 16, 2024@12:06:01 AUTHOR: BRIELLE OROURKE EXP COSIGNER: URGENCY: STATUS: COMPLETED $APHDR Reporting Lab: [facility] [CLIA# [id number]] [place] [address] - - - - - - - [...] in cassette B. Grossing performed by: DAVID, Fraud Analyst Entered by: DAVID, Fraud Analyst Grossing confirmed by: Brielle Orourke, Hematopathologist This report includes the results of laboratory tests utilizing Analyte Specific Reagents or commercially available antibodies (Burton and Lambda CISH Probes). These tests have been developed, fully validated, and their optimal performance characteristics determined by the [facility] Laboratory Service. Such tests have [...] see also concurrent negative flow cytometry study ([id number]). Imaging studies concerning for possible lytic lesions [...] controls for CD3, CD20, CD34, CD61, CD138, Burton and lambda light chains, and pankeratin are [...] OROURKE MD STAFF PATHOLOGIST, PATHOLOGY & LABORATORY [facility] Signed Jun 16, 2024@12:06 Performing Laboratory: Surgical Pathology Report Performed By: [facility] [CLIA# [id number]] [place] [address] $FTR - - - - - - - - - - - - - - - - - - - - - - - - - - - - - - - - - - - - - - - - (End of report) BRIELLE OROURKE MD [facility] [place] Date Jun 16, 2024 - - - - - - - - - - - - - - - - - - - - - - - - - - - - - - - - - - - - - - - - JUAN THOMPSON JR STANDARD FORM 515 ID:[id number] SEX:M :1945 AGE: 78 LOC:[id number] PCP: Sonia Phillips /pablo/ BRIELLE OROURKE MD STAFF PATHOLOGIST, PATHOLOGY & LABORATORY [facility] Signed: 06/16/2024 12:06 BRIELLE OROURKE [facility]
--- OUTSIDE RECORDS SUMMARY | 2024-07-06 16:23 | XMS_ITS | Encounter Summary ---
Author Name [facility] [place] Address [address] [place] [address] Care Team Providers Care Elementary [employer] Director Name Role Phone SONIA PHILLIPS Primary Care [...] PART A Sep 26, 2012 PART A [id number] [facility] [phone] JUAN THOMPSON JR PATIENT MEDICARE (WNR) MEDICARE (M) PART B Sep 26, 2012 PART B [id number] JUAN THOMPSON JR PATIENT Selected Encounter This section includes the information on record at [place] for the Encounter. Date/Time Encounter Type Encounter Description Reason Provider Source Jun 24, 2024 08:00 AM OFF/OP EST NOVEMBER X REQ PHY/QHP PULMONARY/CHEST ICD-10-CM R91.1 Solitary pulmonary nodule ANGEL PARKER IHE Encounter Template Text not used by [place] Assessments - Encounter Diagnoses This section includes the primary and secondary diagnoses documented for the Encounter. Date/Time Primary/Secondary Diagnosis Diagnosis Name Provider Source Jun 24, 2024 08:09 AM PRIMARY Solitary pulmonary nodule ANGEL PARKER [facility] Plan of Treatment: Future Appointments (+ 6 months) and Future Tests (+/- 45 days) The Plan of Treatment section includes future care activities for the patient from all [place] [facility]. This section includes future appointments and future orders which are active, pending or scheduled. Future Appointments This section includes appointments that were scheduled to occur 6 months from the date of the Encounter, up to a maximum of 20 appointments. The data comes from all [facility]. Appointment Date/Time Appointment Type Appointme nt Facility Name Jul 06, 2024 08:30 AM [facility] Jul 16, 2024 07:30 AM [facility] Jul 16, [facility] 08:30 [facility] Jul 16, 2024 09:00 AM [facility] Jul 16, 2024 09:30 AM [facility] Oct 07, 2024 09:00 AM [facility] Oct 19, 2024 09:30 AM AMB[facility]ATORY - [facility]UROLOGY [facility] Active, Pending, and [...] The data comes from all [place] treatment [facility]. Test Date/Time Test Type Test Details Facility Name Jun 19, 2024 04:32 PM Consult Order COMMUNITY CARE-NUCLEAR MEDICINE Cons Software Developer Manager's Choice [facility] Lab Results: +/- [...] Range Comment Jun 12, 2024 07:22 AM [facility] PHOSPHORUS Specimen Type: PLASMA No comment entered. Ordering Provider: AYNAA MICHELLE Report Released Date/Time: May 26, 2024 09:45 AM Reporting Lab: [facility] [address] Performing Lab: [facility] [address] PHOSPHORUS 3.4 mg/dL 2.3-4.3 Jun 12, 2024 07:22 AM [facility] RETICS Specimen Type: BLOOD Comment: Automated Differential Performed Ordering Provider: AYANA MICHELLE Report Released Date/Time: May 26, 2024 09:53 AM Reporting Lab: [facility] [address] Performing Lab: [facility] [address] ABS RETIC 0.0429 0.0300-0.1 000 .RETICULOCYTE 1.06 0.6-2.0 IMMATURE RETIC 5.9 1.0-14.0 .RETICULOCYTE HE 30.5 pg 28.2-36.6 Jun 12, 2024 07:22 AM [facility] COMPREHENSIVE METABOLIC PANEL+MG Specimen Type: PLASMA No comment entered. Ordering Provider: AYANA MICHELLE Report Released Date/Time: May 26, 2024 09:45 AM Reporting Lab: [facility] [address] Performing Lab: [facility] [address] CREATININE 1.0 mg/dL 0.7-1.2 UREA NITROGEN 22 [...] 78 >60 Jun 12, 2024 07:22 AM [facility] CBC & DIFF Specimen Type: BLOOD Comment: Automated Differential Performed Ordering Provider: AYANA MICHELLE Report Released Date/Time: May 26, 2024 09:45 AM Reporting Lab: [facility] [address] Performing Lab: [facility] [address] WBC 6.4 4.0-11.0 RBC 4.05 L 4.60-6.20 [...] pg 28.2-36.6 Jun 03, 2024 11:17 AM [facility] URINALYSIS Specimen Type: URINE No comment entered. Ordering Provider: ELOISE YEUNG Report Released Date/Time: Jun 03, 2024 10:39 AM Reporting Lab: [facility] [address] Performing Lab: [facility] [address] URINE COLOR YELLOW SPECIFIC GRAVITY 1.018 1.003-1.03 5 URINE BILIRUBIN NEGATIVE NEGATIVE URINE KETONES NEGATIVE NEGATIVE URINE GLUCOSE 500 mg/dL <30 URINE PROTEIN NEGATIVE mg/dL <20 URINE PH 6.5 5.0-8.0 URINE WBC/HPF 9 /[HPF] H 0-7 URINE BACTERIA NONE SEEN URINE RBC/HPF 3 /[HPF] 0-3 APPEARANCE CLEAR SQUAMOUS EPITHELIAL <1 /[HPF] URINE BLOOD NEGATIVE NEGATIVE URINE NITRITE NEGATIVE NEGATIVE LEUKOCYTE ESTERASE 75 NEGATIVE Social History: Smoking Status (Most current) and Tobacco Use (All prior to encounter date) This section includes the most current, and the historical, smoking and tobacco- related health factors from the [facility] where the Encounter took place. [...] 7Y OR GREATE R [facility] Pathology Reports: +/- 30 [...] $APHDR Reporting Lab: [facility] [CLIA# [id number]] [place] [address] - - - - - - - [...] in cassette B. Grossing performed by: DAVID, Health And Wellness Coordinator Entered by: DAVID, Health And Wellness Coordinator Grossing confirmed by: Brielle Orourke, Hematopathologist This report includes the results of laboratory tests utilizing Analyte Specific Reagents or commercially available antibodies ([place] and Lambda CISH Probes). These tests have been developed, fully validated, and their optimal performance characteristics determined by the [facility] Laboratory Service. Such tests have not [...] see also concurrent negative flow cytometry study ([id number]). Imaging studies concerning for possible lytic lesions [...] controls for CD3, CD20, CD34, CD61, CD138, [place] and lambda light chains, and pankeratin are [...] MD STAFF PATHOLOGIST, PATHOLOGY & LABORATORY MED [facility] Signed Jun 16, 2024@12:06 Performing Laboratory: Surgical Pathology Report Performed By: [facility] [CLIA# [id number]] [place] [address] $FTR - - - - - - - - - - - - - - - - - - - - - - - - - - - - - - - - - - - - - - - - (End of report) BRIELLE OROURKE MD [facility] Date Jun 16, 2024 - - - - - - - - - - - - - - - - - - - - - - - - - - - - - - - - - - - - - - - - JUAN THOMPSON STANDARD FORM 515 ID:[id number] SEX:M :1945 AGE: 78 LOC:[id number] PCP: Sonia Phillips /pablo/ BRIELLE OROURKE MD STAFF PATHOLOGIST, PATHOLOGY & LABORATORY MED [facility] Signed: 06/16/2024 12:06 BRIELLE OROURKE [facility] Jun 16, 2024 12:02 PM LR SURGICAL PATHOL OGY REPORT: LOCAL TITLE: LR SURGICAL PATHOLOGY REPORT STANDARD TITLE: PATHOLOGY REPORT DATE OF NOTE: JUN 16, 2024@12:02:40 ENTRY DATE: JUN 16, 2024@12:02:40 AUTHOR: BRIELLE OROURKE EXP COSIGNER: URGENCY: STATUS: COMPLETED $APHDR Reporting Lab: [facility] [CLIA# [id number]] [place] [address] - - - - - - - [...] - - - PATHOLOGY REPORT Accession No. [id number] - - - - - [...] morphologic correlation see bone marrow biopsy report [id number]. Summary: On CD45 vs. side scatter analysis, [...] MD STAFF PATHOLOGIST, PATHOLOGY & LABORATORY MED [facility] Signed Jun 16, 2024@12:02 Performing Laboratory: Surgical Pathology Report Performed By: [facility] [CLIA# [id number]] [place] [address] $FTR - - - - - - - - - - - - - - - - - - - - - - - - - - - - - - - - - - - - - - - - (End of report) BRIELLE OROURKE MD [facility] Date Jun 16, 2024 - - - - - - - - - - - - - - - - - - - - - - - - - - - - - - - - - - - - - - - - JUAN THOMPSON SIRIA LANDAVERDE STANDARD FORM 515 ID:[id number] SEX:M :1945 AGE: 78 LOC:[id number] PCP: Sonia Phillips /pablo/ BRIELLE OROURKE MD STAFF PATHOLOGIST, PATHOLOGY & LABORATORY MED [facility] Signed: 06/16/2024 12:02 BRIELLE OROURKE [facility] Encounter Notes: All associated encounter notes This section contains the clinical notes associated to the Encounter. Date/Time Encounter Note(s) Provider Source Jun 24, 2024 08:00 AM PULMONARY CONSULT: LOCAL TITLE: PULMONARY CONSULT STANDARD TITLE: PULMONARY CONSULT DATE OF NOTE: JUN 24, 2024@08:00 ENTRY DATE: JUN 24, 2024@08:04:25 AUTHOR: LEXIE PARKER EXP COSIGNER: URGENCY: STATUS: COMPLETED This is a PULMONARY NODULE E-CONSULT based on review of chest imaging REPORTS for pulmonary nodule(s). Lung nodule of greatest concern for possible malignancy that requires tracking is [address] 05/20/24: Impression: 1. Hyperglycemia. This may decrease the sensitivity of the examination for detecting viable tumor. 2. No malignancy identified. 3. Residual groundglass opacity right upper lobe. This is associated with a 5 mm solid nodule which appears new from April 20, 2024. I would favor the findings are likely inflammatory in nature. If clinically Impression: Lung nodule(s) in a high risk patient with a low clinical probability of cancer based on the current nodule size. Plan: -LDCT Chest 6 months from previous, 5 months from today. Patient will be enrolled in the [facility] Lung Nodule Tracking Program and the lung nodule will be tracked with serial chest CT scans following Fleischner guidelines to monitor for growth and/or change suggesting malignancy. Results and plan of follow up chest CTs will be sent to the Primary Care Provider (beginning and ending tracking, pulmonary chest conference and incidental findings). Time spent on E-Consult: 5-10 minutes. /pablo/ LEXIE PARKER calculating machine mechanic Nurse/Pulmonary Commercial Sales Director Signed: 06/24/2024 08:09 LEXIE PARKER [facility]
--- OUTSIDE RECORDS SUMMARY | 2024-07-06 16:24 | XMS_ITS | Encounter Summary ---
Author Name [facility] [place] [facility] [place] [facility] [place] Address [address] [place] [address] Care Team Providers Care Overlocker Name Role Phone SONIA PHILLIPS Primary Care [...] PART A Sep 26, 2012 PART A [id number] [facility] [phone] JUAN THOMPSON JR PATIENT MEDICARE (WNR) MEDICARE (M) PART B Sep 26, 2012 PART B [id number] [phone] JUAN THOMPSON JR PATIENT Selected Encounter This section includes the information on record at [place] for the Encounter. Date/Time Encounter Type Encounter Description Reason Provider Source Jun 24, 2024 08:00 AM Outpatient Encounter ADMIN PAT ACTIVTIES (MASNONCT) LEXIE PARKER IHBaldo Encounter Template Text not used by [place] Plan of Treatment: Future Appointments (+ 6 months) and Future Tests (+/- 45 days) The Plan of Treatment section includes future care activities for the [facility] [place] [facility] This section includes future appointments and future orders which are active, pending or scheduled. Future Appointments This section includes appointments that were scheduled to occur 6 months from the date of the Encounter, up to a maximum of 20 appointments. The data comes from all [facility]. Appointment Date/Time Appointment Type Appointme nt Facility Name Jul 06, 2024 08:30 AM AM[place]ORY - [place]ONE [place] [facility] Jul 16, 2024 07:30 AM [facility] [place] [facility] Jul 16, 2024 08:30 AM [place] [place] [facility] Jul 16, 2024 09:00 AM AMBULATORY - PSY[facility] Jul 16, 2024 09:30 AM AMBULATORY - PSYCHI[facility]RY [facility] Oct 07, 2024 09:00 AM [facility] [place] [facility] Oct 19, 2024 09:30 AM AMBULATORY - NEUROLOGY [facility] [place] [facility] Active, Pending, and Scheduled Orders This section includes a listing of several types of active, pending, and scheduled orders, including clinic medications orders, diagnostic test orders, procedure orders and consult orders; where the start date of the order is 45 days before the date of the Encounter or 45 days after the date of theEncounter. The data comes from all [facility]. Test Date/Time Test Type Test Details Facility Name Jun 19, 2024 04:32 PM Consult Order COMMUNITY CARE-NUCLEAR MEDICINE Cons Head Strength And Conditioning Coach's Choice [facility] Lab Results: +/- 30 days of the encounter This section includes the Chemistry and Hematology Lab Results on record with [place] for the patient. Radiology Reports and Pathology Reports are provided separately, in subsequent sections. Lab Results This section contains the Chemistry/Hematology Results that were resulted 30 days before or 30 daysafter the date of the Encounter. Date/Time Source Result Type Result - Unit Interpretation Reference Range Comment Jun 12, 2024 07:22 AM [facility] PHOSPHORUS Specimen Type: PLASMA No comment entered. Ordering Provider: AYANA MICHELLE Report Released Date/Time: May 26, 2024 09:45 AM Reporting Lab: [facility] [id number] Performing Lab: [facility] [id number] PHOSPHORUS 3.4 mg/dL 2.3-4.3 Jun 12, 2024 07:22 AM [facility] RETICS Specimen Type: BLOOD Comment: Automated Differential Performed Ordering Provider: AYANA MICHELLE Report Released Date/Time: May 26, 2024 09:53 AM Reporting Lab: [facility] [id number] Performing Lab: [facility] [address] ABS RETIC 0.0429 0.0300-0.1 000 .RETICULOCYTE 1.06 0.6-2.0 IMMATURE RETIC 5.9 1.0-14.0 .RETICULOCYTE HE 30.5 pg 28.2-36.6 Jun 12, 2024 07:22 AM [facility] COMPREHENSIVE METABOLIC PANEL+MG Specimen Type: PLASMA No comment entered. Ordering Provider: AYANA MICHELLE Report Released Date/Time: May 26, 2024 09:45 AM Reporting Lab: [facility] [id number] Performing Lab: [facility] [address] CREATININE 1.0 mg/dL 0.7-1.2 UREA NITROGEN 22 [...] 78 >60 Jun 12, 2024 07:22 AM [facility] CBC & DIFF Specimen Type: BLOOD Comment: Automated Differential Performed Ordering Provider: AYANA MICHELLE Report Released Date/Time: May 26, 2024 09:45 AM Reporting Lab: [facility] [address] Performing Lab: [facility] [address] WBC 6.4 4.0-11.0 RBC 4.05 L 4.60-6.20 [...] pg 28.2-36.6 Jun 03, 2024 11:17 AM [facility] URINALYSIS Specimen Type: URINE No comment entered. Ordering Provider: ELOISE YEUNG Report Released Date/Time: Jun 03, 2024 10:39 AM Reporting Lab: [facility] [address] Performing Lab: [facility] [address] URINE COLOR YELLOW SPECIFIC GRAVITY 1.018 1.003-1.03 [...] and tobacco- related health factors from the [place] facility where the Encounter took place. Current Smoking Status This section includes the most current smoking, or tobacco-related health factor, from the [place] facility where the Encounter took place. Date/Time Current Smoking Status Comment Facil ity Aug 21, 2023 10:30 AM VA-TOBACCO FORMER USER [facility] Tobacco Use History This section includes a history of the smoking, or tobacco-related health factors, that were collected on or before the date of the Encounter. The data comes from the [place] facility where the Encounter took place. Date/Time Smoking Status/Tobacco Use Comment F acility Aug 21, 2023 10:30 AM VA-TOBACCO QUIT 15 YRS OR MORE [facility] Aug 15, 2022 09:00 AM VA-TOBACCO FORMER USER [facility] Aug 15, 2022 09:00 AM VA-TOBACCO QUIT 15 YRS OR MORE [facility] Aug 21, 2021 01:00 PM VA-TOBACCO FORMER USER [facility] Aug 21, 2021 01:00 PM VA-TOBACCO QUIT 15 YRS OR MORE [facility] Jul 09, 2018 08:58 AM VA-TOBACCO FORMER USER [facility] Jul 09, 2018 08:58 AM VA-TOBACCO QUIT 15 YRS OR MORE [facility] Jul 18, 2017 09:58 AM FORMER TOBACCO USER 7Y OR GREATE R [facility] Aug 14, 2016 10:59 AM FORMER TOBACCO USER 7Y OR GREATE R [facility] Jun 29, 2015 02:03 PM FORMER TOBACCO USER 7Y OR GREATE R [facility] Jan 06, 2014 03:04 PM FORMER TOBACCO USER 7Y OR GREATE R [facility] Jan 04, 2012 08:36 AM FORMER TOBACCO USER 7Y OR GREATE R [facility] Pathology Reports: +/- 30 days of [...] comes from all [facility]. Date/Time Pathology Report Provider Source Jun 16, 2024 12:06 PM LR SURGICAL PATHOL OGY REPORT: LOCAL TITLE: LR SURGICAL PATHOLOGY REPORT STANDARD TITLE: PATHOLOGY REPORT DATE OF NOTE: JUN 16, 2024@12:06:01 ENTRY DATE: JUN 16, 2024@12:06:01 AUTHOR: BRIELLE OROURKE COSIGNER: URGENCY: STATUS: COMPLETED $APHDR Reporting Lab: [facility] [CLIA# [id number]] [place] [address] - - - - - - - [...] in cassette B. Grossing performed by: DAVID, Network Operations Center Engineer Entered by: DAVID, Network Operations Center Engineer Grossing confirmed by: Brielle Orourke, Hematopathologist This report includes the results of laboratory tests utilizing Analyte Specific Reagents or commercially available antibodies ([place] and Lambda CISH Probes). These tests have been developed, fully validated, and their optimal performance characteristics determined by the [facility]. Such tests [...] see also concurrent negative flow cytometry study ([id number]). Imaging studies concerning for possible lytic lesions [...] controls for CD3, CD20, CD34, CD61, CD138, [place] and lambda light chains, and pankeratin are [...] Performing Laboratory: Surgical Pathology Report Performed By: [facility] [CLIA# [id number]] [place] [address] $FTR - - - - - - - - - - - - - - - - - - - - - - - - - - - - - - - - - - - - - - - - (End of report) BRIELLE OROURKE MD [facility] [place] Jun 16, 2024 - - - - - - - - - - - - - - - - - - - - - - - - - - - - - - - - - - - - - - - - JUAN THOMPSON STANDARD FORM 515 ID:[id number] SEX:M :1945 AGE: 78 LOC:[id number] PCP: Sonia Phillips /aneesh OROURKE MD STAFF PATHOLOGIST, PATHOLOGY & LABORATORY [facility] Signed: 06/16/2024 12:06 BRIELLE OROURKE [facility] Jun 16, 2024 12:02 PM LR SURGICAL PATHOL OGY REPORT: LOCAL TITLE: LR SURGICAL PATHOLOGY REPORT STANDARD TITLE: PATHOLOGY REPORT DATE OF NOTE: JUN 16, 2024@12:02:40 ENTRY DATE: JUN 16, 2024@12:02:40 AUTHOR: BRIELLE OROURKE EXP COSIGNER: URGENCY: STATUS: COMPLETED $APHDR Reporting Lab: [facility] [CLIA# [id number]] [place] [address] - - - - - - - [...] morphologic correlation see bone marrow biopsy report [id number]. Summary: On CD45 vs. side scatter analysis, [...] Performing Laboratory: Surgical Pathology Report Performed By: [facility] [CLIA# [id number]] [place] [address] $FTR - - - - - - - - - - - - - - - - - - - - - - - - - - - - - - - - - - - - - - - - (End of report) BRIELLE OROURKE MD [facility] [place] Jun 16, 2024 - - - - - - - - - - - - - - - - - - - - - - - - - - - - - - - - - - - - - - - - JUAN THOMPSON JR STANDARD FORM 515 ID:[id number] SEX:M :1945 AGE: 78 LOC:[id number] PCP: Sonia Phillips /pablo/ BRIELLE OROURKE MD STAFF PATHOLOGIST, PATHOLOGY & LABORATORY [facility] Signed: 06/16/2024 12:02 BRIELLE OROURKE [facility] Encounter Notes: All associated encounter notes This section contains the clinical notes associated to the Encounter. Date/Time Encounter Note(s) Provider Source Jun 24, 2024 08:17 AM LETTERS: LOCAL TITLE: FOLLOW UP RESULTS LETTER STANDARD TITLE: LETTERS DATE OF NOTE: JUN 24, 2024@08:17 ENTRY DATE: JUN 24, 2024@08:17:25 AUTHOR: LEXIE PARKER EXP COSIGNER: URGENCY: STATUS: COMPLETED [facility] [address] [place] [address] May JUAN THOMPSON [address] [facility] [id number] Dear : Your recent chest imaging on Apr showed: one or more small lung nodules (sometimes called spots). Lung nodules are usually caused by scar tissue, a healed infection that never made you sick, or some irritant found in the air we breathe. In general, most nodules ARE NOT early lung cancer. The best way to make sure this is not something of greater concern, such as a small, early cancer, is to keep an eye on your nodule with chest CT scans to make sure it's not growing. To make sure that your nodule(s) is not growing, we will continue to follow the nodule(s) with repeat CT scans until it has been stable for one to three years. *THIS IS IMPORTANT: Your next CT scan should be scheduled for 5 months from today. You will receive a recall letter six weeks before your CT scan is due asking you to call to schedule the appointment. If you have any further questions or problems, please contact Lung Nodule Tracking staff at [phone]. LEXIE PARKER road production general manager Nurse/Pulmonary Mechanical Maintenance Supervisor LEXIE PARKER [facility] Jun 24, 2024 08:12 AM PULMONARY NOTE: LOCAL TITLE: PULMONARY LUNG NODULE NOTE STANDARD TITLE: PULMONARY NOTE DATE OF NOTE: JUN 24, 2024@08:12 ENTRY DATE: JUN 24, 2024@08:13:09 AUTHOR: LEXIE PARKER EXP COSIGNER: URGENCY: STATUS: COMPLETED Lung Nodule Registry: The patient will be tracked by the [facility]. Date of initial image: May 20, 2024 Patient risk level: High Nodule density: Solid Size of nodule of greatest concern: Enter number in MM only: 5 Size of nodule of greatest concern: All nodules <6mm Nodule border: Regular/smooth Location of largest nodule: Right Upper Lobe Next CT is recommended in 6 months. Results letter sent to patient. /pablo/ LEXIE PARKER road production general manager Nurse/Pulmonary Mechanical Maintenance Supervisor Signed: 06/24/2024 08:15 LEXIE PARKER [facility]
--- OUTSIDE RECORDS SUMMARY | 2024-07-06 16:25 | XMS_ITS | Encounter Summary ---
Author Name [facility] [place] [facility] [place] Address [address] [place] [address] Care Team Providers Care Timber Feller Name Role Phone SONIA PHILLIPS Primary Care [...] PART A Sep 26, 2012 PART A [id number] [phone] JUAN THOMPSON JR PATIENT MEDICARE (WNR) MEDICARE (M) PART B Sep 26, 2012 PART B [id number] [phone] JUAN THOMPSON JR PATIENT Selected Encounter This section includes the information on record at [place] for the Encounter. Date/Time Encounter Type Encounter Description Reason Pro vider Source May 20, 2024 12:00 AM Outpatient Encounter EVENT (HISTORICAL) IHE Encounter Template Text not used by [place] Plan of Treatment: Future Appointments (+ 6 months) and Future Tests (+/- 45 days) The Plan of Treatment section includes future care activities for the [facility] [place] [facility] This section includes future appointments and future orders which are active, pending or scheduled. Future Appointments This section includes appointments that were scheduled to occur 6 months from the date of the Encounter, up to a maximum of 20 appointments. The data comes from all [facility]. Appointment Date/Time Appointment Type Appointme nt Facility Name May 26, 2024 09:15 AM [place] [facility] Jun 03, 2024 10:00 AM [facility] Jun 04, 2024 09:30 AM [facility] [place] [facility] Jun 05, 2024 01:30 PM [facility] Jun 12, 2024 07:30 AM [place] [facility] Jun 12, 2024 08:30 AM [facility] Jun 23, 2024 10:15 AM [facility] Jul 06, 2024 08:30 AM [place] [facility] Jul 16, 2024 07:30 AM [place] [facility] Jul 16, 2024 08:30 AM [place] [facility] Jul 16, 2024 09:00 AM [facility] Jul 16, 2024 09:30 AM [facility] Oct 07, 2024 09:00 [facility] Oct 19, 2024 09:30 AM [facility]UROLOGY [place] [facility] Active, Pending, and Scheduled Orders This section includes a listing of several types of active, pending, and scheduled orders, including clinic medications orders, diagnostic test orders, procedure orders and consult orders; where the start date of the order is 45 days before the date of the Encounter or 45 days after the date of theEncounter. The data comes from all [facility]. Test Date/Time Test Type Test Details Facility Name Jun 19, 2024 04:32 PM Consult Order COMMUNITY CARE-NUCLEAR MEDICINE Cons [employer] [facility] Lab Results: +/- 30 days of the encounter This section includes the Chemistry and Hematology Lab Results on record with [place] for the patient. Radiology Reports and Pathology Reports are provided separately, in subsequent sections. Lab Results This section contains the Chemistry/Hematology Results that were resulted 30 days before or 30 daysafter the date of the Encounter. Date/Time Source Result Type Result - Unit Interpretation Reference Range Comment Jun 12, 2024 07:22 AM [facility] PHOSPHORUS Specimen Type: PLASMA No comment entered. Ordering Provider: JAVIER MICHELLE Report Released Date/Time: May 26, 2024 09:45 AM Reporting Lab: [facility] [address] Performing Lab: [facility] [address] PHOSPHORUS 3.4 mg/dL 2.3-4.3 Jun 12, 2024 07:22 AM [facility] RETICS Specimen Type: BLOOD Comment: Automated Differential Performed Ordering Provider: JAVIER MICHELLE Report Released Date/Time: May 26, 2024 09:53 AM Reporting Lab: [facility] [address] Performing Lab: [facility] [address] ABS RETIC 0.0429 0.0300-0.1 000 .RETICULOCYTE 1.06 0.6-2.0 IMMATURE RETIC 5.9 1.0-14.0 .RETICULOCYTE HE 30.5 pg 28.2-36.6 Jun 12, 2024 07:22 AM [facility] COMPREHENSIVE METABOLIC PANEL+MG Specimen Type: PLASMA No comment entered. Ordering Provider: JAVIER MICHELLE Report Released Date/Time: May 26, 2024 09:45 AM Reporting Lab: [facility] [address] Performing Lab: [facility] [address] CREATININE 1.0 mg/dL 0.7-1.2 UREA NITROGEN 22 [...] 78 >60 Jun 12, 2024 07:22 AM [facility] CBC & DIFF Specimen Type: BLOOD Comment: Automated Differential Performed Ordering Provider: JAVIER MICHELLE Report Released Date/Time: May 26, 2024 09:45 AM Reporting Lab: [facility] [address] Performing Lab: [facility] [address] WBC 6.4 4.0-11.0 RBC 4.05 L 4.60-6.20 [...] pg 28.2-36.6 Jun 03, 2024 11:17 AM [facility] URINALYSIS Specimen Type: URINE No comment entered. Ordering Provider: LYUBOV YEUNG Report Released Date/Time: Jun 03, 2024 10:39 AM Reporting Lab: [facility] [address] Performing Lab: [facility] [address] URINE COLOR YELLOW SPECIFIC GRAVITY 1.018 1.003-1.03 [...] 75 NEGATIVE May 20, 2024 09:39 AM [facility] FINGERSTICK GLUCOSE Specimen Type: BLOOD Comment: Save Result Ordering Provider: TANK PHILLIPS Report Released Date/Time: May 20, 2024 03:03 PM Reporting Lab: [facility] [address] Performing Lab: [facility] [address] FINGERSTICK GLUCOSE 148 mg/dL H 70-100 May 13, 2024 11:44 AM [facility] KAPPA/LAMBDA LC FREE,RATIO Specimen Type: [...] therapy of these disorders. Test Performed by [facility], [facility], [address] [place] [address] Devante Meyer M.D., Ph.D., Director of Laboratories , CLIA [id number] Ordering Provider: RENUKA JOHNSON Report Released Date/Time: Apr 24, 2024 04:08 PM Reporting Lab: [facility] [address] Performing Lab: [address] .KAPPA LT CHAIN,FREE 27.3 mg/L H 3.3-19.4 .LAMBDA LC,FREE 15.8 mg/L 5.7-26.3 .KAPPA/LAMBDA, FREE 1.73 H 0.26-1.65 May 13, 2024 11:44 AM [facility] LD,TOTAL Specimen Type: PLASMA No comment entered. Ordering Provider: RENUKA JOHNSON Report Released Date/Time: Apr 24, 2024 04:08 PM Reporting Lab: [facility] [address] Performing Lab: [facility] [address] LD,TOTAL 141 U/L 125-220 May 13, 2024 11:44 AM [facility] URIC ACID Specimen Type: PLASMA No comment entered. Ordering Provider: RENUKA JOHNSON Report Released Date/Time: Apr 24, 2024 04:08 PM Reporting Lab: [facility] [address] Performing Lab: [facility] [address] URIC ACID 3.1 mg/dL L 3.7-7.7 May 13, 2024 11:44 AM [facility] B 12 Specimen Type: SERUM No comment entered. Ordering Provider: RENUKA JOHNSON Report Released Date/Time: Apr 24, 2024 04:08 PM Reporting Lab: [facility] [address] Performing Lab: [facility] [address] B 12 722 pg/mL 213-816 May 13, 2024 11:44 AM [facility] FOLATE Specimen Type: SERUM No comment entered. Ordering Provider: RENUKA JOHNSON Report Released Date/Time: Apr 24, 2024 04:08 PM Reporting Lab: [facility] [address] Performing Lab: [facility] [address] FOLATE 14.6 ng/mL >7.0 May 13, 2024 11:44 AM [facility] PHOSPHORUS Specimen Type: PLASMA No comment entered. Ordering Provider: RENUKA JOHNSON Report Released Date/Time: Apr 24, 2024 04:08 PM Reporting Lab: [facility] [phone] Performing Lab: [facility] [address] PHOSPHORUS 3.3 mg/dL 2.3-4.3 May 13, 2024 11:44 AM [facility] IRON GROUP Specimen Type: SERUM No comment entered. Ordering Provider: RENUKA JOHNSON Report Released Date/Time: Apr 24, 2024 04:08 PM Reporting Lab: [facility] [address] Performing Lab: [facility] [address] IRON 101 ug/dL 65-175 TIBC,CALCULATE D 313 ug/dL 250-425 FERRITIN pending IRON SATURATION 32 20-50 TRANSFERRIN 250 mg/dL 163-382 May 13, 2024 11:44 AM [facility] TOTAL IMMUNOGLOB (IGA,IGG,IGM) Specimen Type: PLASMA No comment entered. Ordering Provider: RENUKA JOHNSON Report Released Date/Time: Apr 24, 2024 04:08 PM Reporting Lab: [facility] [address] Performing Lab: [facility] [address] IGM 78.8 mg/dL 22.0-293.0 IGG 714.3 mg/dL 540.0-18 22 .0 IGA 123.8 mg/dL 63.0-645.0 May 13, 2024 11:44 AM [facility] BETA 2-MICROGLOBULIN Specimen Type: SERUM No comment entered. Ordering Provider: RENUKA JOHNSON Report Released Date/Time: Apr 24, 2024 04:08 PM Reporting Lab: [facility] [address] Performing Lab: [facility] [address] BETA 2-MICROGLOBULI N 3.36 mg/L H 0.97-2.64 May 13, 2024 11:44 AM [facility] PSA Specimen Type: SERUM No comment entered. Ordering Provider: ABBY MEANS Report Released Date/Time: May 12, 2024 08:28 PM Reporting Lab: [facility] [address] Performing Lab: [facility] [address] PSA 0.49 ng/mL <4.00 May 13, 2024 11:44 AM [facility] TESTOSTERONE Specimen Type: SERUM No comment entered. Ordering Provider: ABBY MEANS Report Released Date/Time: May 12, 2024 08:30 PM Reporting Lab: [facility] [address] Performing Lab: [facility] [address] TESTOSTERONE 534 ng/dL 221-870 May 13, 2024 11:44 AM [facility] CBC & DIFF Specimen Type: BLOOD Comment: Automated Differential Performed Ordering Provider: RENUKA JOHNSON Report Released Date/Time: Apr 24, 2024 04:08 PM Reporting Lab: [facility] [address] Performing Lab: [facility] [address] WBC 8.3 4.0-11.0 RBC 4.04 L 4.60-6.20 [...] 0.0 0.0-0.1 May 13, 2024 11:44 AM [facility] COMPREHENSIVE METABOLIC PANEL+MG Specimen Type: PLASMA No comment entered. Ordering Provider: RENUKA JOHNSON Report Released Date/Time: Apr 24, 2024 04:08 PM Reporting Lab: [facility] [address] Performing Lab: [facility] [address] CREATININE 1.0 mg/dL 0.7-1.2 UREA NITROGEN 26 [...] 78 >60 May 13, 2024 11:44 AM [facility] PERIPHERAL SMEAR PATHOLOGIST REVIEW Specimen Type: BLOOD No comment entered. Ordering Provider: RENUKA JOHNSON Report Released Date/Time: May 13, 2024 01:51 PM Reporting Lab: [facility] [address] Performing Lab: [facility] [address] PERIPHERAL SMEAR PATHOLOGIST REVIEW SLIDES MADE Apr 22, 2024 10:41 AM [facility] ELP/IMMFIX,SERUM PANEL Specimen Type: SERUM Comment: Decreased gamma fraction may be seen in certain lymphoproliferat jeff disorders. Recommend submitting a 24 hr urine for ELP and immunofixation tests. Ordering Provider: LYUBOV YEUNG Report Released Date/Time: Apr 22, 2024 10:20 AM Reporting Lab: [facility] [address] Performing Lab: [facility] [address] PROTEIN,TOTAL 6.0 g/dL L 6.4-8.3 .ALBUMIN FRACTION 3.63 g/dL L 3.66-4.78 .ALPHA 1 FRACTION 0.37 g/dL 0.14-0.38 .ALPHA 2 FRACTION 0.81 g/dL 0.50-0.90 .BETA 1 FRACTION 0.34 g/dL 0.33-0.55 .BETA 2 FRACTION 0.28 g/dL 0.20-0.52 .GAMMA FRACTION 0.57 g/dL L 0.58-1.72 .TOTAL PROTEIN 6.0 g/dL 6.0-8.3 .INTERPRETATIO N NO MONOCLONALS DETECTED Apr 22, 2024 10:32 AM [facility] ELP/IMMFIX,URINE RANDOM PANEL Specimen Type: URINE No comment entered. Ordering Provider: LYUBOV YEUNG Report Released Date/Time: Apr 22, 2024 10:20 AM Reporting Lab: [facility] [address] Performing Lab: [facility] [address] PROTEIN,T. RANDOM UR <6.8 mg/dL <14.0 .INTERPRETATIO N,UR NO MONOCLONALS DETECTED Apr 22, 2024 08:15 AM [facility] BASIC METABOLIC PANEL+MG Specimen Type: PLASMA No comment entered. Ordering Provider: LYUBOV YEUNG Report Released Date/Time: Oct 09, 2023 11:10 AM Reporting Lab: [facility] [address] Performing Lab: [facility] [address] CREATININE 1.0 mg/dL 0.7-1.2 UREA NITROGEN 18 mg/dL 8-26 GLUCOSE 217 mg/dL H 70-100 SODIUM 144 mmol/L 136-145 POTASSIUM 4.3 mmol/L 3.5-5.1 CHLORIDE 106 mmol/L 98-107 CO2 31 mmol/L H 22-29 CALCIUM 9.6 mg/dL 8.4-10.2 MAGNESIUM 1.4 mg/dL L 1.6-2.6 ANION GAP 7 mmol/L 5-15 .CREAT EGFR(CKD-EPI) 78 >60 Apr 22, 2024 08:15 AM [facility] CBC Specimen Type: BLOOD No comment entered. Ordering Provider: LYUBOV YEUNG Report Released Date/Time: Oct 09, 2023 11:10 AM Reporting Lab: [facility] [address] Performing Lab: [facility] [address] WBC 9.8 4.0-11.0 RBC 4.45 L 4.60-6.20 HGB 13.0 g/dL L 13.5-17.9 HCT 40.2 L 41-54 MCV 90.3 fL 80-100 MCH 29.2 pg 27-33 MCHC 32.3 g/dL 32.0-37.5 PLT 328 150-400 MPV 9.7 fL 9.1-13.0 RDW 14.3 11.5-14.5 Social History: Smoking Status (Most current) and Tobacco Use (All prior to encounter date) This section includes the most current, and the historical, smoking and tobacco- related health factors from the [place] facility where the Encounter took place. Current Smoking Status This section includes the most current smoking, or tobacco-related health factor, from the [place] facility where the Encounter took place. Date/Time Current Smoking Status Comment Facil ity Aug 21, 2023 10:30 AM VA-TOBACCO FORMER USER [facility] Tobacco Use History This section includes a history of the smoking, or tobacco-related health factors, that were collected on or before the date of the Encounter. The data comes from the [place] facility where the Encounter took place. Date/Time Smoking Status/Tobacco Use Comment F acility Aug 21, 2023 10:30 AM VA-TOBACCO QUIT 15 YRS OR MORE [facility] Aug 15, 2022 09:00 AM VA-TOBACCO FORMER USER [facility] Aug 15, 2022 09:00 AM VA-TOBACCO QUIT 15 YRS OR MORE [facility] Aug 21, 2021 01:00 PM VA-TOBACCO FORMER USER [facility] Aug 21, 2021 01:00 PM VA-TOBACCO QUIT 15 YRS OR MORE [facility] Jul 09, 2018 08:58 AM VA-TOBACCO FORMER USER [facility] Jul 09, 2018 08:58 AM VA-TOBACCO QUIT 15 YRS OR MORE [facility] Jul 18, 2017 09:58 AM FORMER TOBACCO USER 7Y OR GREATE R [facility] Aug 14, 2016 10:59 AM FORMER TOBACCO USER 7Y OR GREATE R [facility] Jun 29, 2015 02:03 PM FORMER TOBACCO USER 7Y OR GREATE R [facility] Jan 06, 2014 03:04 PM FORMER TOBACCO USER 7Y OR GREATE R [facility] Jan 04, 2012 08:36 AM FORMER TOBACCO USER 7Y OR GREATE R [facility] Radiology Reports: +/- 30 [...] the Encounter. The data comes from all [place] treatment facilities. Date/Time Radiology Report Provider Source May 20, 2024 09:[address] BODY W/O CONTRAST (P): JUAN THOMPSON [id number] -1945 M Exm Date: MAY 20, 2024@09:14 Req Phys: LYUBOV YEUNG Loc: [facility] APACT L RES 03 WH 4F (Req' Img Loc: [facility]UC MED Service: [place] [address] (Case [id number] COMPLETE) SKULL-THIGH PET IMAGE W/CT (NM Detailed) CPT:50943 Reason for Study: eval for malignancy (Case [...] pager listed below: User placing orders pager: [phone] LAST CREATININE 1.0 (04/22/24) Report Status: Verified Date Reported: MAY 20, 2024 Date Verified: MAY 20, 2024 Sales And Business Development Manager E-Sig:/ES/RUFUS GROVES MD, FACR, CCD Report: [...] Staff: RUFUS GROVES MD, FACR, STAFF RADIOLOGIST (Sales And Business Development Manager) /BSF RUFUS GROVES [facility] Apr 20, 2024 08:[address] (CAP) CHEST/ABD/PELVIS (P): JUAN THOMPSON [id number] -1945 M Exm Date: APR 20, 2024@08:07 Req Phys: RACHEL WATSON Pat Loc: [facility] APACT L RES 03 WH 4F (Req' Img Loc: CT IMAGING Service: [place] [address] (Case [id number] COMPLETE) CT (CAP) CHEST W CONTRAST (CT Detailed) CPT:07590 Contrast Media : Non-ionic Iodinated Reason for Study: 78M with weight loss & lymphadenopathy, CT for malignancy eval (Case 148 COMPLETE) CT (CAP) ABDOMEN/PELVIS W CONTRAS(CT Detailed) CPT:90286 Contrast Media : Non-ionic Iodinated Clinical History: [...] any questions or notifications of critical findings: [phone] If ordering provider is a trainee, enter [...] PLASMA .CREAT EGFR(CKD-E 63 Ref: >=60 Allergies: ([facility]) SULFAMETHOXAZOLE (Feb 07, 2022) EMPAGLIFLOZIN (Jun 06, 2022) Report Status: Verified Date Reported: APR 20, 2024 Date Verified: APR 20, 2024 Sales And Business Development Manager E-Sig:/ES/JONATAN MILLER MD Report: CT CHEST, ABDOMEN [...] Primary Interpreting Staff: JONATAN MILLER MD, RADIOLOGIST (Sales And Business Development Manager) /JONATAN [facility] Pathology Reports: +/- 30 [...] the Encounter. The data comes from all [place] treatment facilities. Date/Time Pathology Report Provider Source Jun 16, 2024 12:06 PM LR SURGICAL PATHOLOGY REPORT: LOCAL TITLE: LR SURGICAL PATHOLOGY REPORT STANDARD TITLE: PATHOLOGY REPORT DATE OF NOTE: JUN 16, 2024@12:06:01 ENTRY DATE: JUN 16, 2024@12:06:01 AUTHOR: BRIELLE AMINIGNER: URGENCY: STATUS: COMPLETED $APHDR Reporting Lab: [facility] [CLIA# [id number]] [place] [address] - - - - - - - [...] in cassette B. Grossing performed by: DAVID, Radio Interference Supervisor Entered by: DAVID, Radio Interference Supervisor Grossing confirmed by: Brielle Amin, Hematopathologist This report includes the results of laboratory tests utilizing Analyte Specific Reagents or commercially available antibodies ([place] and Lambda CISH Probes). These tests have been developed, fully validated, and their optimal performance characteristics determined by the [facility] Laboratory Service. Such tests have not [...] see also concurrent negative flow cytometry study ([id number]). Imaging studies concerning for possible lytic lesions [...] controls for CD3, CD20, CD34, CD61, CD138, [place] and lambda light chains, and pankeratin are [...] MD STAFF PATHOLOGIST, PATHOLOGY & LABORATORY [facility] Signed Jun 16, 2024@12:06 Performing Laboratory: Surgical Pathology Report Performed By: [facility] [CLIA# [id number]] [place] [address] $FTR - - - - - - - - - - - - - - - - - - - - - - - - - - - - - - - - - - - - - - - - (End of report) BRIELLE AMIN MD [facility] Date Jun 16, 2024 - - - - - - - - - - - - - - - - - - - - - - - - - - - - - - - - - - - - - - - - JUAN THOMPSON STANDARD FORM 515 ID:[id number] SEX:M :1945 AGE: 78 LOC:[id number] PCP: Sonia Phillips /pablo/ BRIELLE AMIN MD STAFF PATHOLOGIST, PATHOLOGY & LABORATORY [facility] Signed: 06/16/2024 12:06 BRIELLE AMIN [facility] Jun 16, 2024 12:02 PM LR SURGICAL PATHOLOGY REPORT: LOCAL TITLE: LR SURGICAL PATHOLOGY REPORT STANDARD TITLE: PATHOLOGY REPORT DATE OF NOTE: JUN 16, 2024@12:02:40 ENTRY DATE: JUN 16, 2024@12:02:40 AUTHOR: BRIELLE AMIN EXP COSIGNER: URGENCY: STATUS: COMPLETED $APHDR Reporting Lab: [facility] [CLIA# [id number]] [place] [address] - - - - - - - [...] - - - PATHOLOGY REPORT Accession No. [facility] [id number] - - - - - - - [...] - PATHOLOGY REPORT Accession No. [id number] - - - - - - - [...] morphologic correlation see bone marrow biopsy report [id number]. Summary: On CD45 vs. side scatter analysis, [...] MD STAFF PATHOLOGIST, PATHOLOGY & LABORATORY [facility] Signed Jun 16, 2024@12:02 Performing Laboratory: Surgical Pathology Report Performed By: [facility] [CLIA# [id number]] [place] [address] $FTR - - - - - - - - - - - - - - - - - - - - - - - - - - - - - - - - - - - - - - - - (End of report) BRIELLE AMIN MD [facility] Date Jun 16, 2024 - - - - - - - - - - - - - - - - - - - - - - - - - - - - - - - - - - - - - - - - JUAN THOMPSON STANDARD FORM 515 ID:[id number] SEX:M :1945 AGE: 78 LOC:[id number] PCP: Sonia alegre/ BRIELLE AMIN MD STAFF PATHOLOGIST, PATHOLOGY & LABORATORY [facility] Signed: 06/16/2024 12:02 BRIELLE AMIN [facility] May 14, 2024 10:47 AM LR SURGICAL PATHOLOGY REPORT: LOCAL TITLE: LR SURGICAL PATHOLOGY REPORT STANDARD TITLE: PATHOLOGY REPORT DATE OF NOTE: MAY 14, 2024@10:47:04 ENTRY DATE: MAY 14, 2024@10:47:04 AUTHOR: VIPUL DASILVA EXP COSIGNER: URGENCY: STATUS: COMPLETED $APHDR Reporting Lab: [facility] [CLIA# [id number]] [place] [address] - - - - - - - [...] Performing Laboratory: Surgical Pathology Report Performed By: [facility] [CLIA# [id number]] [place] [address] $FTR - - - - - - [...] - JUAN THOMPSON JR STANDARD FORM 515 ID:[id number] SEX:M :1945 AGE: 78 LOC:[id number] PCP: Sonia Phillips /pablo/ VIPUL DASILVA MD STAFF PATHOLOGIST Signed: 05/14/2024 10:47 VIPUL DASILVA [facility]
--- OUTSIDE RECORDS SUMMARY | 2024-07-06 16:25 | XMS_ITS | Encounter Summary ---
Author Name [facility] Organization [facility] Address [address] [facility] [place] [address] Care Team Providers Care Canoe Inspector Final Name Role Phone SONIA PHILLIPS Primary Care [...] PART A Sep 26, 2012 PART A [id number] [phone] JUAN THOMPSON JR PATIENT MEDICARE (WNR) MEDICARE (M) PART B Sep 26, 2012 PART B [id number] [phone] JUAN THOMPSON JR PATIENT Selected Encounter This section includes the information on record at NH for the Encounter. Date/Time Encounter Type Encounter Description Reason Pro vider Source Jul 02, 2024 10:30 PM Outpatient Encounter TELEPHONE TRIAGE IHE Encounter Template Text not used by NH Plan of Treatment: Future Appointments (+ 6 months) and Future Tests (+/- 45 days) The Plan of Treatment section includes future care activities for the [facility] This section includes future appointments and future [...] 08:30 AM AM[place] - [place] [facility] Jul 16, 2024 07:30 [facility] Jul 16, 2024 08:30 [facility] Jul 16, 2024 09:00 AM AM[place] [facility] Jul 16, 2024 09:30 AM [place] [facility] Oct 07, 2024 09:00 AM [facility] Oct 19, 2024 09:30 AM AMBULATORY - NEUROLOGY [facility] Active, Pending, and Scheduled [...] PM Consult Order COMMUNITY CARE-NUCLEAR MEDICINE Cons Rig Supervisor's Choice [facility] Lab Results: +/- 30 days of [...] Range Comment Jun 12, 2024 07:22 AM [facility] PHOSPHORUS Specimen Type: PLASMA No comment entered. Ordering Provider: AYANA MICHELLE Report Released Date/Time: May 26, 2024 09:45 AM Reporting Lab: [facility] [id number] Performing Lab: [facility] [id number] PHOSPHORUS 3.4 mg/dL 2.3-4.3 Jun 12, 2024 07:22 AM [facility] RETICS Specimen Type: BLOOD Comment: Automated Differential Performed Ordering Provider: AYANA MICHELLE Report Released Date/Time: May 26, 2024 09:53 AM Reporting Lab: [facility] [id number] Performing Lab: [facility] [id number] ABS RETIC 0.0429 0.0300-0.1 000 .RETICULOCYTE 1.06 0.6-2.0 IMMATURE RETIC 5.9 1.0-14.0 .RETICULOCYTE HE 30.5 pg 28.2-36.6 Jun 12, 2024 07:22 AM [facility] COMPREHENSIVE METABOLIC PANEL+MG Specimen Type: PLASMA No comment entered. Ordering Provider: AYANA MICHELLE Report Released Date/Time: May 26, 2024 09:45 AM Reporting Lab: [facility] [id number] Performing Lab: [facility] [id number] CREATININE 1.0 mg/dL 0.7-1.2 UREA NITROGEN 22 [...] 78 >60 Jun 12, 2024 07:22 AM [facility] CBC & DIFF Specimen Type: BLOOD Comment: Automated Differential Performed Ordering Provider: AYANA MICHELLE Report Released Date/Time: May 26, 2024 09:45 AM Reporting Lab: [facility] [id number] Performing Lab: [facility] [id number] WBC 6.4 4.0-11.0 RBC 4.05 L 4.60-6.20 [...] pg 28.2-36.6 Jun 03, 2024 11:17 AM [facility] URINALYSIS Specimen Type: URINE No comment entered. Ordering Provider: ELOISE YEUNG Report Released Date/Time: Jun 03, 2024 10:39 AM Reporting Lab: [facility] [id number] Performing Lab: [facility] [id number] URINE COLOR YELLOW SPECIFIC GRAVITY 1.018 1.003-1.03 [...] and tobacco- related health factors from the NH facility where the Encounter took place. Current Smoking Status This section includes the most current smoking, or tobacco-related health factor, from the NH facility where the Encounter took place. Date/Time Current Smoking Status Comment Facil ity Aug 21, 2023 10:30 AM VA-TOBACCO QUIT 15 YRS OR MORE [facility] Tobacco Use History This section includes a history of the smoking, or tobacco-related health factors, that were collected on or before the date of the Encounter. The data comes from the NH facility where the Encounter took place. Date/Time Smoking Status/Tobacco Use Comment F acility Aug 21, 2023 10:30 AM VA-TOBACCO QUIT 15 YRS OR MORE [facility] Aug 15, 2022 09:00 AM VA-TOBACCO FORMER USER [facility] Aug 15, 2022 09:00 AM VA-TOBACCO [...] USER 7Y OR GREATE R [facility] Pathology Reports: +/- 30 days of the [...] the Encounter. The data comes from all [facility] facilities. Date/Time Pathology Report Provider Source Jun 16, 2024 12:06 PM LR SURGICAL PATHOL OGY REPORT: LOCAL TITLE: LR SURGICAL PATHOLOGY REPORT STANDARD TITLE: PATHOLOGY REPORT DATE OF NOTE: JUN 16, 2024@12:06:01 ENTRY DATE: JUN 16, 2024@12:06:01 AUTHOR: BRIELLE AMIN COSIGNER: URGENCY: STATUS: COMPLETED $APHDR Reporting Lab: [facility] [CLIA# [id number]] [place] [address] - - - - - - - [...] in cassette B. Grossing performed by: DAVID, Crane Follower Entered by: DAVID, Crane Follower Grossing confirmed by: Brielle Amin, Hematopathologist This report includes the results of laboratory tests utilizing Analyte Specific Reagents or commercially available antibodies (Melbeta and Lambda CISH Probes). These tests have been developed, fully validated, and their optimal performance characteristics determined by the [facility] Laboratory Service. Such tests have not [...] see also concurrent negative flow cytometry study ([id number]). Imaging studies concerning for possible lytic lesions [...] controls for CD3, CD20, CD34, CD61, CD138, Melbeta and lambda light chains, and pankeratin are [...] PATHOLOGIST, PATHOLOGY & LABORATORY [facility] Signed Jun 16, 2024@12:06 Performing Laboratory: Surgical Pathology Report Performed By: [facility] [CLIA# [id number]] [place] [address] $FTR - - - - - - - - - - - - - - - - - - - - - - - - - - - - - - - - - - - - - - - - (End of report) BRIELLE AMIN MD [facility] Date Jun 16, 2024 - - - - - - - - - - - - - - - - - - - - - - - - - - - - - - - - - - - - - - - - JUAN THOMPSON STANDARD FORM 515 ID:[id number] SEX:M :1945 AGE: 78 LOC:[id number] PCP: Sonia Phillips /pablo/ BRIELLE AMIN MD STAFF PATHOLOGIST, PATHOLOGY & LABORATORY [facility] Signed: 06/16/2024 12:06 BRIELLE AMIN [facility] Jun 16, 2024 12:02 PM LR SURGICAL PATHOL OGY REPORT: LOCAL TITLE: LR SURGICAL PATHOLOGY REPORT STANDARD TITLE: PATHOLOGY REPORT DATE OF NOTE: JUN 16, 2024@12:02:40 ENTRY DATE: JUN 16, 2024@12:02:40 AUTHOR: BRIELLE AMIN EXP COSIGNER: URGENCY: STATUS: COMPLETED $APHDR Reporting Lab: [facility] [CLIA# [id number]] [place] [address] - - - - - - - [...] morphologic correlation see bone marrow biopsy report [id number]. Summary: On CD45 vs. side scatter analysis, [...] PATHOLOGIST, PATHOLOGY & LABORATORY [facility] Signed Jun 16, 2024@12:02 Performing Laboratory: Surgical Pathology Report Performed By: [facility] [CLIA# [id number]] [place] [address] $FTR - - - - - - - - - - - - - - - - - - - - - - - - - - - - - - - - - - - - - - - - (End of report) BRIELLE AMIN MD [facility] Date Jun 16, 2024 - - - - - - - - - - - - - - - - - - - - - - - - - - - - - - - - - - - - - - - - JUAN THOMPSON JR STANDARD FORM 515 ID:[id number] SEX:M :1945 AGE: 78 LOC:[id number] PCP: Sonia Phillips /pablo/ BRIELLE AMIN MD STAFF PATHOLOGIST, PATHOLOGY & LABORATORY [facility] Signed: 06/16/2024 12:02 BRIELLE AMIN [facility] Encounter Notes: All associated encounter notes This section contains the clinical notes associated to the Encounter. Date/Time Encounter Note(s) Provider Source Jul 03, 2024 07:32 AM ADDENDUM: LOCAL TITLE: Addendum STANDARD TITLE: ADDENDUM DATE OF NOTE: JUL 03, 2024@07:32:41 ENTRY DATE: JUL 03, 2024@07:32:42 AUTHOR: MANGO MONTES COSIGNER: URGENCY: STATUS: COMPLETED Good morning: I'm covering for Dr. Phillips today. Could you please contact patient as requested and let me know if something needed from my end? Thank you. /pablo/ MANGO MONTES MD PHYSICIAN Signed: 07/03/2024 07:33 Receipt Acknowledged By: 07/03/2024 16:05 /es/ Brittani Hernandez RN Registered Nurse --- Original Document --- 07/02/24 CCC: CLINICAL TRIAGE: Patient Demographics Patient Name: JUAN THOMPSON JR Patient Primary [address]: [address] [place] [address] Patient Primary Phone: [phone] Patient : 1945 Patient Age: 78 Current Location: [address] [place] [address] Call Back Number: [phone] Caller/Recipient Relation to Patient: Self Caller Name: JUAN THOMPSON JR Emergency Contact: SIRIA THOMPSON Triage Summary Utilized the Triage Tool: Yes Chief Complaint: Calf Swelling (bilateral) System WHEN: Within 24 Hours Nurse's Recommendation / WHEN: Within 8 Hours System WHERE: Clinic Nurse's Recommendation / WHERE: ED Other Nurse's Other / WHERE: increased swelling, left greater right WHEN/WHERE modifier reason: Distance from Hospital Patient Disposition Patient/Caregiver agrees to plan of care: Yes Patient WHERE: ED Other Patient WHEN: Within 8 hours Patient is Urgent or Emergent Nursing Plan and Disposition Referred patient to higher level of care Instructed to go to Emergency Room (ER) Advised of Financial Disclaimer: Patient advised that recommendation for care provided during the call does not constitute an approval or authorization for payment by the NH or its staff. Patient advised to report a community ED visit to the [facility] Office of Community Care at within 72 hours. 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 Tionesta stated that it is red especially where he itched it and warm to touch. Tionesta stated that he has noticed this around 3 days and try to elevate. stated he has generalized pain in hips and knees rating 3' out of 10 but no pain in calves. stated that husky massage his leg rubbing against him and has a bruise but no pain. Tionesta stated that he always sleep with 2 pillows for the past 2 years and not been short of breath but gets up to go to bathroom. stated that he is wearing [place] boots form [place] since he is unable to wear his shoes. denied any chest pain, shortness or breath, dizziness, fever, diaphoresis, drainage of legs. Kinsey is able to speak in complete clear sentences. Triaged for System recommended to be seen within 24 hours. RN uptriaged to be seen within 2-8 hours or sooner due to left greater than right calf swelling, wearing Velcro boots unable to wear shoes, history of A fib or delayed treatment could cause further damage, heart issues or life threatening. stated the [place] is [place] miles stated the nearest ER is [place] less than 2 miles. stated that they have emergency response team that will come out to get you. Tionesta agreed to be seen within 2-8 hours and will either call emergency rapid response or call his neighbor to take him Rn advised to call if worsening symptoms or if acute emergency, call 911. verbalized understanding. Tionesta requested a call back from the clinic for follow up swelling in calves Please call Tionesta at on 07/03/2024 follow up as above. Thank you. Clinical Contact Center Codes Clinic/Location: [facility] PHONE CCC RN Decision Support System Output: Triage Complete Triage Date: 07/02/2024, 10:09 PM Triage Note: Decision Support Tool Used: [facility] Phone Triage Sat, 03 Jul 2024 02:59:24 +0000 [facility] Demographics 78 y/o Male Results CC: Calf Swelling (bilateral) Software suggested: Within 24 Hours Software suggested follow-up location: Clinic, consider [facility] care Values and Measures Respiratory Rate: 16 bpm Duration of CC: 3 Days Positive Responses HPI: skin erythema, legs HPI: skin swelling, legs, worsening VS: temperature not taken Negative Responses Denies: HPI: dyspnea on exertion, worse than usual during normal activities Denies: HPI: leg pain with leg swelling, bilateral Denies: HPI: red streaks, from a spot on the legs Denies: HPI: skin lump, swollen, painful, over the legs Denies: HPI: vomiting Denies: MEDS: chemotherapy Denies: PMH: CHF Denies: PMH: diabetes Denies: PMH: HIV positive Denies: PSH: organ transplant Tionesta Education Verbal Education Provided for: Leg Swelling Home Care IMPORTANT: This note was created by [facility] Clinical Contact Center staff. Please do not alert the staff member by adding them as a signer for future communications. Alerts are not monitored by this user. /es/ CIPRIANO LYLES RN TELECARE NURSE Signed: 07/02/2024 21:30 Receipt Acknowledged By: 07/03/2024 15:53 /es/ Brittani Hernandez RN Registered Nurse 07/03/2024 07:32 /es/ MANGO MONTES MD PHYSICIAN for SONIA Arreola JACQUELINE 07/03/2024 ADDENDUM STATUS: UNSIGNED You may not VIEW this UNSIGNED Addendum. MANGO MONTES [facility] Jul 02, 2024 09:30 PM RN PROGRESS NOTE: LOCAL TITLE: CCC: CLINICAL TRIAGE STANDARD TITLE: RN PROGRESS NOTE DATE OF NOTE: JUL 02, 2024@21:30:17 ENTRY DATE: JUL 02, 2024@21:30:18 AUTHOR: CIPRIANO LYLES COSIGNER: URGENCY: STATUS: COMPLETED CCC: CLINICAL TRIAGE Has ADDENDA Patient Demographics Patient Name: JUAN THOMPSON JR Patient Primary Address: [address] [place] [address] Patient Primary Phone: [phone] Patient : 1945 Patient Age: 78 Current Location: [address] [place] [address] Call Back Number: [phone] Caller/Recipient Relation to Patient: Self Caller Name: JUAN THOMPSON JR Emergency Contact: SIRIA THOMPSON Triage Summary Utilized the Triage Tool: Yes Chief Complaint: Calf Swelling (bilateral) System WHEN: Within 24 Hours Nurse's Recommendation / WHEN: Within 8 Hours System WHERE: Clinic Nurse's Recommendation / WHERE: ED Other Nurse's Other / WHERE: increased swelling, left greater right WHEN/WHERE modifier reason: Distance from Hospital Patient Disposition Patient/Caregiver agrees to plan of care: Yes Patient WHERE: ED Other Patient WHEN: Within 8 hours Patient is Urgent or Emergent Nursing Plan and Disposition Referred patient to higher level of care Instructed to go to Emergency Room (ER) Advised of Financial Disclaimer: Patient advised that recommendation for care provided during the call does not constitute an approval or authorization for payment by the NH or its staff. Patient advised to report a community ED visit to the [facility] Office of Community Care at within 72 hours. 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 stated that it is red especially where he itched it and warm to touch. Tionesta stated that he has noticed this around 3 days and try to elevate. stated he has generalized pain in hips and knees rating 3' out of 10 but no pain in calves. Tionesta stated that husky massage his leg rubbing against him and has a bruise but no pain. stated that he always sleep with 2 pillows for the past 2 years and not been short of breath but gets up to go to bathroom. stated that he is wearing Velco boots form [place] since he is unable to wear his shoes. denied any chest pain, shortness or breath, dizziness, fever, diaphoresis, drainage of legs. Tionesta is able to speak in complete clear sentences. Triaged for System recommended to be seen within 24 hours. RN uptriaged to be seen within 2-8 hours or sooner due to left greater than right calf swelling, wearing Velcro boots unable to wear shoes, history of A fib or delayed treatment could cause further damage, heart issues or life threatening. stated the [place] is [place] miles stated the nearest ER is [place] less than 2 miles. stated that they have emergency response team that will come out to get you. Tionesta agreed to be seen within 2-8 hours and will either call emergency rapid response or call his neighbor to take him Rn advised to call if worsening symptoms or if acute emergency, call 911. verbalized understanding. requested a call back from the clinic for follow up swelling in calves Please call at on 07/03/2024 follow up as above. Thank you. Clinical Contact Center Codes Clinic/Location: 3 [facility] PHONE [facility] RN Decision Support System Output: Triage Complete Triage Date: 07/02/2024, 10:09 PM Triage Note: Decision Support Tool Used: [facility] Phone Triage 03 Jul 2024 02:59:24 +0000 [facility] Demographics 78 y/o Male Results CC: Calf Swelling (bilateral) Software suggested: Within 24 Hours Software suggested follow-up location: Clinic, consider [facility] care Values and Measures Respiratory Rate: 16 bpm Duration of CC: 3 Days Positive Responses HPI: skin erythema, legs HPI: skin swelling, legs, worsening VS: temperature not taken Negative Responses Denies: HPI: dyspnea on exertion, worse than usual during normal activities Denies: HPI: leg pain with leg swelling, bilateral Denies: HPI: red streaks, from a spot on the legs Denies: HPI: skin lump, swollen, painful, over the legs Denies: HPI: vomiting Denies: MEDS: chemotherapy Denies: PMH: CHF Denies: PMH: diabetes Denies: PMH: HIV positive Denies: PSH: organ transplant Tionesta Education Verbal Education Provided for: Leg Swelling Home Care IMPORTANT: This note was created by [facility] Clinical Contact Center staff. Please do not alert the staff member by adding them as a signer for future communications. Alerts are not monitored by this user. /pablo/ CIPRIANO LYLES RN TELECARE NURSE Signed: 07/02/2024 21:30 Receipt Acknowledged By: 07/03/2024 15:53 /pablo/ Brittani Hernnadez RN Registered Nurse 07/03/2024 07:32 /pablo/ MANGO MONTES MD PHYSICIAN for SONIA PHILLIPS 07/03/2024 ADDENDUM STATUS: COMPLETED Good morning: I'm covering for Dr. Phillips today. Could you please contact patient as requested and let me know if something needed from my end? Thank you. /pablo/ MANGO MONTES MD PHYSICIAN Signed: 07/03/2024 07:33 Receipt Acknowledged By: 07/03/2024 16:05 /pablo/ Brittani Hernandez RN Registered Nurse 07/03/2024 ADDENDUM STATUS: COMPLETED Reviewed chart, no notes available in CPRS or JLV to suggest pt sought care. Called pt, no answer, left brief message on self-identified VM requesting return call to provided number. Called pt's guardian, Nathalie Cline ( ), no answer, left detailed message on confidential self identified VM requesting return call for update and/or assistance with coordinating f/u if needed. /pablo/ Brittani Hernandez RN Registered Nurse Signed: 07/03/2024 16:07 Receipt Acknowledged By: * AWAITING SIGNATURE * LYUBOV YEUNG ANGELA C [facility]
--- OUTSIDE RECORDS SUMMARY | 2024-07-06 16:26 | XMS_ITS | Encounter Summary ---
Author Name [facility] [place] [facility] [place] Address [address] [place] [address] Care Team Providers Care Mental Hygienist Name Role Phone MARIUSZ PHILLIPS Primary Care [...] PART A Sep 26, 2012 PART A [id number] [facility] [phone] JUAN THOMPSON JR PATIENT MEDICARE (WNR) MEDICARE (M) PART B Sep 26, 2012 PART B [id number] [phone] JUAN THOMPSON JR PATIENT Selected Encounter This section includes the information on record at CT for the Encounter. Date/Time Encounter Type Encounter Description Reason Provider Source Aug 21, 2023 11:15 AM EMERGENCY DEPT VISIT MOD [facility] EMERGENCY DEPT ICD-10-CM W19.XXXA Unspecified fall, initial encounter KESHA BARROSO [facility] Encounter Template Text not used by CT Assessments - Encounter Diagnoses This section includes the primary and secondary diagnoses documented for the Encounter. Date/Time Primary/Secondary Diagnosis Diagnosis Name Provider Source Aug 21, 2023 04:10 PM PRIMARY Unspecified fall, initial encounter KESHA BARROSO [facility] Aug 21, 2023 04:10 PM SECONDARY Urinary tract infection, site not specified KESHA BARROSO [facility] Plan of Treatment: Future Appointments (+ 6 months) and Future Tests (+/- 45 days) The Plan of Treatment section includes future care activities for the [facility] This section includes future appointments and future orders which are active, pending or scheduled. Future Appointments This section includes appointments that were scheduled to occur 6 months from the date of the Encounter, up to a maximum of 20 appointments. The data comes from all CT treatment facilities. Appointment Date/Time Appointment Type Appointme nt Facility Name Sep 28, 2023 07:00 AM AM[place]ORY - NONE [place] [facility] Oct 02, 2023 07:00 AM AMB[place]ORY [place] [facility] Oct 03, 2023 08:30 AM [place] [facility] Oct 09, 2023 09:00 AM AMBULATORY - NONE [place] [facility] Oct 09, 2023 10:00 AM AMBULATORY [place]IC[place] [facility] Nov 07, 2023 09:30 AM AM[place]ORY [place]IC[place] [facility] Nov 07, 2023 10:30 AM [place]ORY [place]ICINE [place] [facility] Nov 07, 2023 11:30 AM [place] [facility] Nov 07, 2023 11:45 AM AMBUL[place]ORY [place]ICINE [place] [facility] Nov 20, 2023 09:00 AM [place] [facility] December 05, 2023 09:30 AM AMBUL[place]ORY [place] [facility] Feb 07, 2024 11:00 AM AMBULATORY - NONE [place] [facility] Feb 07, 2024 11:30 AM [place]ORY [place] [facility] Feb 07, 2024 12:30 PM AM[place]UL[place]ORY - NONE [place] [facility] Feb 18, 2024 08:00 AM AMBULATORY - MEDICINE [place] [facility] Active, Pending, and Scheduled Orders This section includes a listing of several types of active, pending, and scheduled orders, including clinic medications orders, diagnostic test orders, procedure orders and consult orders; where the start date of the order is 45 days before the date of the Encounter or 45 days after the date of theEncounter. The data comes from all [facility] facilities. Test Date/Time Test Type Test Details Facility Name Aug 15, 2023 12:00 AM Laboratory - Chemi stry Order BASIC METABOLIC PANEL+MG PLASMA [facility] Aug 15, 2023 12:00 AM Laboratory - Chemi stry Order CBC BLOOD [facility] Aug 15, 2023 12:00 AM Laboratory - Chemi stry Order HEMOGLOBIN A1C BLOOD [facility] Aug 21, 2023 04:02 PM Laboratory - Chemi stry Order URINALYSIS URINE ER STAT WC ONCE [facility] Lab Results: +/- 30 days of the encounter This section includes the Chemistry and Hematology Lab Results on record with CT for the patient. Radiology Reports and Pathology Reports are provided separately, in subsequent sections. Lab Results This section contains the Chemistry/Hematology Results that were resulted 30 days before or 30 daysafter the date of the Encounter. Date/Time Source Result Type Result - Unit Interpretation Reference Range Comment Aug 21, 2023 02:27 PM [facility] URINALYSIS Specimen Type: URINE No comment entered. Ordering Provider: KESHA BARROSO Report Released Date/Time: Aug 21, 2023 01:11 PM Reporting Lab: [facility] [id number] Performing Lab: [facility] [id number] URINE COLOR YELLOW SPECIFIC GRAVITY 1.027 1.003-1.035 URINE BILIRUBIN NEGATIVE NEGATIVE URINE KETONES NEGATIVE NEGATIVE URINE GLUCOSE NEGATIVE mg/dL URINE PROTEIN 20 mg/dL URINE PH 6.0 5.0-8.0 URINE WBC/HPF 39 /[HPF] H 0-7 URINE BACTERIA NONE SEEN URINE RBC/HPF >180 /[HPF] H 0-3 APPEARANCE CLEAR SQUAMOUS EPITHELIAL 1 /[HPF] URINE BLOOD TRACE NEGATIVE URINE NITRITE NEGATIVE NEGATIVE LEUKOCYTE ESTERASE 250 NEGATIVE Aug 21, 2023 01:36 PM [facility] TROPONIN I, HS Specimen Type: PLASMA No comment entered. Ordering Provider: KESHA BARROSO Report Released Date/Time: Aug 21, 2023 01:11 PM Reporting Lab: [facility] [id number] Performing Lab: [facility] [id number] TROPONIN I, HS <3 <35 Aug 21, 2023 01:36 PM [facility] BASIC METABOLIC PANEL+MG Specimen Type: PLASMA No comment entered. Ordering Provider: KESHA BARROSO Report Released Date/Time: Aug 21, 2023 01:11 PM Reporting Lab: [facility] [phone] Performing Lab: [facility] [id number] CREATININE 1.2 mg/dL 0.7-1.2 UREA NITROGEN 23 mg/dL 8-26 GLUCOSE 82 mg/dL 70-100 SODIUM 142 mmol/L 136-145 POTASSIUM 3.7 mmol/L 3.5-5.1 CHLORIDE 105 mmol/L 98-107 CO2 30 mmol/L H 22-29 CALCIUM 8.7 mg/dL 8.4-10.2 MAGNESIUM 1.7 mg/dL 1.6-2.6 ANION GAP 7 mmol/L 5-15 .CREAT EGFR(CKD-EPI ) 63 >60 Aug 21, 2023 01:36 PM [facility] CBC & DIFF Specimen Type: BLOOD Comment: Automated Differential Performed Ordering Provider: KESHA BARROSO Report Released Date/Time: Aug 21, 2023 01:11 PM Reporting Lab: [facility] [id number] Performing Lab: [facility] [id number] WBC 6.27 10*3/uL 4.0-11.0 RBC 3.93 10*6/uL L 4.6-6.2 HGB 11.7 g/dL L 13.5-17.9 HCT 35.6 L 41-54 MCV 90.6 fL 80-100 MCH 29.8 pg 27-33 MCHC 32.9 g/dL 32.0-37.5 PLT 248 10*3/uL 150-400 MPV 9.4 fL 7.4-10.4 NEUT 43.2 40.0-80.0 LYMPHS 41.9 15.0-45.0 MONO 11.2 2.0-12.0 EOSINO 3.3 0.0-6.0 BASO 0.2 0.0-2.0 RDW 13.8 11.5-14.5 ABS LYMPH 2.63 10*3/uL 1.0-4.0 ABS MONO 0.70 10*3/uL 0.1-1.0 ABS NEUT 2.71 10*3/uL 2.0-7.7 ABS EOS 0.21 10*3/uL 0-0.5 ABS BASO 0.01 10*3/uL 0-0.2 IG(META,MYEL O,PRO) 0.2 ABS IMMATURE GRAN 0.01 10*3/uL 0-0.1 Aug 21, 2023 01:32 PM [facility] EXTRA GOLD GEL TUBE Specimen Type: SERUM No comment entered. Ordering Provider: KESHA BARROSO Report Released Date/Time: Aug 21, 2023 01:36 PM Reporting Lab: [facility] [id number] Performing Lab: [facility] [phone] EXTRA GOLD GEL TUBE RECEIVED Aug 21, 2023 01:32 PM [facility] EXTRA BLUE TUBE Specimen Type: PLASMA No comment entered. Ordering Provider: KESHA BARROSO Report Released Date/Time: Aug 21, 2023 01:36 PM Reporting Lab: [facility] [id number] Performing Lab: [facility] [phone] EXTRA BLUE TUBE RECEIVED Vital Signs: All taken on the encounter date This section contains inpatient and outpatient Vital Signs collected on the date of the Encounter. Date/Time Temperature Pulse Blood Pressure Respiratory Rate SP02 Pain Height Weight Body Mass Index Source Aug 21, 2023 12:02 PM 97.4 F 66 /min 110/63 mm[Hg] 16 /min 99 % 3 [facility] Social History: Smoking Status (Most current) and Tobacco Use (All prior to encounter date) This section includes the most current, and the historical, smoking and tobacco- related health factors from the CT facility where the Encounter took place. Current Smoking Status This section includes the most current smoking, or tobacco-related health factor, from the CT facility where the Encounter took place. Date/Time Current Smoking Status Comment Aj woods Aug 21, 2023 10:[address]-TOBACCO QUIT 15 YRS OR MORE [facility] Tobacco Use History This section includes a history of the smoking, or tobacco-related health factors, that were collected on or before the date of the Encounter. The data comes from the CT facility where the Encounter took place. Date/Time Smoking Status/Tobacco Use Comment F acility Aug 21, 2023 10:30 AM VA-TOBACCO QUIT 15 YRS OR MORE [facility] Aug 15, 2022 09:00 AM VA-TOBACCO FORMER USER [facility] Aug 15, 2022 09:00 AM VA-TOBACCO QUIT 15 YRS OR MORE [facility] Aug 21, 2021 01:00 PM VA-TOBACCO FORMER USER [facility] Aug 21, 2021 01:00 PM VA-TOBACCO QUIT 15 YRS OR MORE [facility] Jul 09, 2018 08:58 AM VA-TOBACCO FORMER USER [facility] Jul 09, 2018 08:58 AM VA-TOBACCO QUIT 15 YRS OR MORE [facility] Jul 18, 2017 09:58 AM FORMER TOBACCO USER 7Y OR GREATE R [facility] Aug 14, 2016 10:59 AM FORMER TOBACCO USER 7Y OR GREATE R [facility] Jun 29, 2015 02:03 PM FORMER TOBACCO USER 7Y OR GREATE R [facility] Jan 06, 2014 03:04 PM FORMER TOBACCO USER 7Y OR GREATE R [facility] Jan 04, 2012 08:36 AM FORMER TOBACCO USER 7Y OR GREATE R [facility] Radiology Reports: +/- 30 days of [...] The data comes from all [facility] facilities. Date/Time Radiology Report Provider Source Aug 21, 2023 01:[address] C-SPINE W/O (P) : JUAN THOMPSON [id number] -1945 M Exm Date: AUG 21, 2023@13:29 Req Phys: KESHA BARROSO Loc: [facility] EMERGENCY DEPT WALK-IN (Re Img Loc: CT IMAGING Service: Unknown (Case [id number] COMPLETE) CT CERVICAL SPINE W/O CONTRAST (CT Detailed) CPT:74031 Reason for Study: fall hit head Clinical History: Per Joint Commission Standards, by signing this diagnostic imaging request the ordering provider confirms they have considered patients age and recent imaging history. Defer to radiologist for final CT protocol. Please enter pertinent clinical history on the next page. Contact number for responsbile provider who can be reached for any questions or notifications of critical findings: giselle If ordering provider is a trainee, enter the name and contact information of the responsible staff physician. giselle LAST 3: Collection DT Specimen Test Name Result Units Ref Range 07/11/2023 10:38 PLASMA CREATININE 1.2 mg/dL 0.7 - 1.2 02/13/2023 15:07 PLASMA CREATININE 1.3 H mg/dL 0.7 - 1.2 11/06/2022 12:38 PLASMA CREATININE 1.1 mg/dL 0.7 - 1.2 07/11/2023 10:38 PLASMA .CREAT EGFR(CKD-E 63 Ref: >=60 02/13/2023 15:07 PLASMA .CREAT EGFR(CKD-E 57 L Ref: >=60 11/06/2022 12:38 PLASMA .CREAT EGFR(CKD-E 70 Ref: >=60 Allergies: ([place] only) SULFAMETHOXAZOLE (Feb 07, 2022) EMPAGLIFLOZIN (Jun 06, 2022) To see allergies from all CT locations click Reports tab>Remote Data>All Available Sites>Clinical Reports>Allergies. Report Status: Verified Date Reported: AUG 21, 2023 Date Verified: AUG 21, 2023 Adult Secondary Education Instructor E-Sig:/ES/OMAIRA LANDERS MD Report: CT CERVICAL SPINE W/O CONTRAST 08/21/2023 1:29 PM HISTORY: Head injury status post fall. TECHNIQUE: CT imaging of the cervical spine was performed without contrast. CONTRAST: None. DOSE: DLP: 1244.99, mGy.cm/CTDIvol Mean: 49.62, mGy. COMPARISON: None. FINDINGS: No fracture is identified. The cervical vertebral body heights and alignment are maintained. The bilateral facet joints are intact. No prevertebral soft tissue swelling is evident. 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 Multilevel degenerative disc disease is worst at C5-C6 and C6-C7 where it is moderate in degree. On the left, multilevel facet osteoarthritis is worst at C2-C3, C3-C4, and C7-T1 where it is moderate in degree. On the left, multilevel facet osteoarthritis is worst at C4-C5 and C7-T1 where it is moderate in degree. Impression: 1. No evidence of cervical vertebral fracture or traumatic malalignment. 2. Multilevel cervical spinal degenerative changes. Primary Interpreting Staff: OMAIRA LANDERS MD, RADIOLOGIST (Adult Secondary Education Instructor) /[facility] OMAIRA LANDERS [facility] Aug 21, 2023 01:[address] HEAD (P): JUAN THOMPSON [id number] -1945 M Exm Date: AUG 21, 2023@13:28 Req Phys: KESHA BARROSO Loc: [facility] EMERGENCY DEPT WALK-IN (Re Img Loc: CT IMAGING Service: Unknown (Case [id number] COMPLETE) CT HEAD/BRAIN W/O CONTRAST (CT Detailed) CPT:83499 Reason for Study: fall hit head Clinical History: IS NOT under investigation for COVID-19 or is COVID-19 negative Defer to radiologist for final CT protocol. Please enter pertinent clinical history on the next page. Contact number for responsbile provider who can be reached for any questions or notifications of critical findings: GISELLE If ordering provider is a trainee, enter the name and contact information of the responsible staff physician. Giselle LAST 3: Collection DT Specimen Test Name Result Units Ref Range 07/11/2023 10:38 PLASMA CREATININE 1.2 mg/dL 0.7 - 1.2 02/13/2023 15:07 PLASMA CREATININE 1.3 H mg/dL 0.7 - 1.2 11/06/2022 12:38 PLASMA CREATININE 1.1 mg/dL 0.7 - 1.2 07/11/2023 10:38 PLASMA .CREAT EGFR(CKD-E 63 Ref: >=60 02/13/2023 15:07 PLASMA .CREAT EGFR(CKD-E 57 L Ref: >=60 11/06/2022 12:38 PLASMA .CREAT EGFR(CKD-E 70 Ref: >=60 Allergies: ([place] only) SULFAMETHOXAZOLE (Feb 07, 2022) EMPAGLIFLOZIN (Jun 06, 2022) To see allergies from all CT locations click Reports tab>Remote Data>All Available Sites>Clinical Reports>Allergies. Report Status: Verified Date Reported: AUG 21, 2023 Date Verified: AUG 21, 2023 Adult Secondary Education Instructor E-Sig:/ES/SWATHI STACY MD Report: NONCONTRAST CT OF THE HEAD 08/21/2023 1:28 PM INDICATION: Head injury TECHNIQUE: Non-enhanced axial images of the brain were obtained from the base of the skull to the vertex. COMPARISON: None DOSE: DLP 913 mGy*cm FINDINGS: Moderate atrophy, somewhat greater centrally. Mild prominent considering age. No bleed, mass effect, or acute infarct is evident. Paranasal sinuses and mastoid air cells are essentially clear. Bones are unremarkable. Impression: 1. Mildly prominent involutional changes for age. 2. No acute superimposed intracranial finding. Primary Interpreting Staff: SWATHI STACY MD, RADIOLOGIST (Adult Secondary Education Instructor) /[place] [facility] Encounter Notes: All associated encounter notes This section contains the clinical notes associated to the Encounter. Date/Time Encounter Note(s) Provider Source Aug 21, 2023 04:11 PM NURSING EMERGENCY DEPT NOTE: LOCAL TITLE: EMERGENCY DEPT NURSING NOTE STANDARD TITLE: NURSING EMERGENCY DEPT NOTE DATE OF NOTE: AUG 21, 2023@16:11 ENTRY DATE: AUG 21, 2023@16:11:24 AUTHOR: YOLANDA HEATH EXP COSIGNER: URGENCY: STATUS: COMPLETED Emergency Department Discharge Education Personal Protective Equipment (PPE): Patient was in mask on arrival, Patient was in mask on arrival, patient remained masked for entire visit, RN used PPE during every encounter with the patient The patient was given education on the following: follow up plan EDUCATION/TEACH BACK: [facility] discharge instructions have been reviewed with Patient AND had an opportunity to ask questions, has verbalized understanding, have received a copy of the [facility] instructions EDUCATIONAL LEVEL OF UNDERSTANDING: Patient was ready and receptive to education. BARRIERS TO LEARNING: No barriers identified Accompanied by: Family Mode of Transportation: Relative/friend EXIT ADDITIONAL EDUCATION GIVE: Discharged to: Home a/o. steady gait. no obvious distress. sent to pharmacy. /pablo/ YOLANDA HEATH RN Signed: 08/21/2023 16:13 YOLANDA HEATH [facility] Aug 21, 2023 04:01 PM EMERGENCY DEPT EDUCATION NOTE: LOCAL TITLE: EMERGENCY DEPT DISCHARGE INSTRUCTIONS STANDARD TITLE: EMERGENCY DEPT EDUCATION NOTE DATE OF NOTE: AUG 21, 2023@16:01:06 ENTRY DATE: AUG 21, 2023@16:01:06 AUTHOR: MITKESHA SAM COSIGNER: URGENCY: STATUS: COMPLETED DISCHARGE INSTRUCTIONS IMPORTANT: We examined and treated you today on an emergency basis only. This was not a substitute for, or an effort to provide, comprehensive medical care. In most cases, you must let your healthcare provider check you again. Tell your healthcare provider about any new or lasting problems. We cannot recognize and treat all injuries or illnesses in one Emergency Department visit. After you leave, you should follow the instructions below. You were treated today by Kesha Barroso, . Special Information Please follow-up with your primary care provider. It will be helpful for you to get some physical therapy and Occupational Therapy assessment. Your urine test was equivocal today given your symptoms we will treat you with antibiotic. There was some red blood cells in your urine which should clear if it is due to infection. Please follow-up with your primary care provider in 1 to 2 weeks after completing the antibiotics for repeat urinalysis to make sure it has cleared. Please note that you should keep your [employer] with you at all times. Please call or come if you have any new or worsening symptoms This Information Is About Your Follow Up Care We recommend that you follow up with your Primary Care Team to have an appointment within the next 1 - 2 weeks. Call to arrange this appointment. If you are not feeling better and improving as discussed or if you have any questions please contact your Primary Care Provider. Future Appointments 11/07/2023 at 9:30am [facility] 79 LAB 11/07/2023 at 10:30am [facility] KIM This Information Is About Your Illness and Diagnosis URINARY TRACT INFECTION (Bladder infection) There is an infection in your urine. This infection was caused by bacteria getting into the bladder through your urethra (the tube you urinate through). With treatment, you can expect to be better in 2 to 3 days. If a urine culture was taken, the result will be back in 1 to 2 days. It will show which bacteria caused your infection and which antibiotic will fight the bacteria. Please follow these instructions: -Drink extra liquids to help wash out the infection (at least 8 large glasses of water or juice each day unless your healthcare provider has limited your fluids). -Keep your genital area clean. Use plain soap and rinse well. -Women should wipe from front to back after passing stool or urine. -Take showers instead of tub baths. -See your healthcare provider to recheck your urine after you finish the medicine to make sure the infection is gone. Contact your healthcare provider as soon as possible if you have any of the following: -you have increased pain or trouble passing your urine. -you have a fever. -you are not better in 2 to 3 days. -your symptoms return after you finish the medicine. -you have any new problems or concerns. General Health Information REDUCE YOUR RISK OF FALLING Each year, millions of people are injured by falls. People at risk of falling include hospital patients, correction residents and those who are recovering from an illness or injury at home. The following information will give you tips and actions you can take to reduce your risk of falling, whether at home or in a medical facility. Why do falls happen? Most falls occur: -if a person is weak, tired or sick -if a person is not physically fit -if a person has trouble seeing clearly -if a person is taking medicines that cause weakness, sleepiness, confusion or dizziness -if a person walks on slippery or wet floors or stairs -if objects or other obstructions are in a person's pathway -if it is dark How can I reduce my risk of falling? -Take care of your health. -Exercise regularly. Exercise builds strength. -Prevent dehydration. Dehydration is when your body is too low on fluids. It can make you dizzy and make it easier to lose your balance. Make sure to drink plenty of water each day. -Have your eyes checked. Make sure you do not have any eye problems or need a new prescription. -Talk to your health care provider if your medicine makes you dizzy, sleepy, light-headed, sluggish or confused. Ask how to reduce these side effects or if you can take a different medicine. Take extra precautions: -Turn on the lights when you enter a room. Do not walk in the dark. -Make sure your pathways are clear. -Use the handrails on staircases. -Sit in chairs that do not move. Use chairs that have arm rests to help when you sit down and stand up. -Wear shoes that have firm, flat, non-slip soles. Do not wear shoes that do not have backs on them. -Replace the rubber tips on canes and walkers when they become worn. Make small changes to your home: -Install timers, clap-on or motion sensors on your lights. -Use night lights in your bedroom, bathroom and the hallway leading to the bathroom. -Keep the floor and stairs clear of objects such as books, tools, papers, shoes and clothing. -Remove small area rugs and throw rugs that can slip. Rubber mats are a good replacement. -Put frequently used items in koix-rq-[id number] places that do not require using a step stool. -Make sure your bed is easy to get in and out of. -Apply non-slip treads on stairs. -Apply non-slip decals or use a non-slip mat in the bathtub or shower. -Install grab bars near the toilet and the bathtub or shower. A home care agency, personal care and support agency, or community program may be able to help make changes to your home if you live alone and need help. Take extra precautions in your health care facility, such as a hospital or correction: Many falls occur when patients or residents try to get out of bed either to go to the bathroom or walk around the room by themselves. If you need to get out of bed: -Use your call button to ask for help getting out of bed if you feel unsteady. -Use your call button to ask for help going to the bathroom, or walking around the room or in hallways. -Wear non-slip socks or footwear. -Lower the height of the bed and the side rails when you get into and out of bed. Your nurse or other health care provider may raise your bed's side rails when you are in bed to help keep you from falling out of bed. -Talk to your health care provider if your medicine makes you dizzy, sleepy, light-headed, sluggish or confused. Ask how to reduce these side effects or if you can take another medicine. IMPORTANT MEDICATION INFORMATION -Your medication list includes any medications that were recently prescribed but not filled by the Pharmacy (PENDING Medicines). -Included are any known ACTIVE Medicines. Please review this list to make sure it is accurate, if this list does not match the current medications you are taking please follow-up with your Primary Care Team to have your Medication List reviewed. Pending Medications AMOXICILLIN 875/CLAV K 125MG TAB \ Sig: TAKE 1 TABLET BY MOUTH TWICE A DAY\Indication: UTI Active Medications ACCU-CHEK GUIDE (GLUCOSE) TEST STRIP USE 1 STRIP EVERY DAY TO CHECK BLOOD SUGAR--USE WITHIN 3 MINUTES OF REMOVING FROM CONTAINER APIXABAN 5MG TAB TAKE ONE TABLET BY MOUTH EVERY 12 HOURS TO PREVENT AND/OR TREAT BLOOD CLOTS ARIPIPRAZOLE 20MG TAB TAKE ONE TABLET BY MOUTH EVERY DAY FOR BIPOLAR DISORDER DOSE INCREASED 11-23-22 ATORVASTATIN CALCIUM 10MG TAB TAKE ONE TABLET BY MOUTH AT BEDTIME BUPROPION HCL 150MG 24HR SA TAB TAKE ONE TABLET BY MOUTH EVERY MORNING CALCIUM 200MG (CA CITRATE-950MG) TAB TAKE TWO TABLETS BY MOUTH TWICE A DAY FOR CALCIUM SUPPLEMENT CHOLECALCIF 25MCG (D3-1,000UNIT) TAB TAKE ONE TABLET BY MOUTH EVERY DAY CYANOCOBALAMIN 1000MCG TAB TAKE ONE TABLET BY MOUTH EVERY DAY FERROUS SULFATE 325MG TAB TAKE ONE TABLET BY MOUTH EVERY DAY IRON DEFICIENCY MAGNESIUM OXIDE 400MG TAB TAKE TWO TABLETS BY MOUTH EVERY DAY FOR SUPPLEMENTATION METFORMIN HCL 500MG TAB TAKE ONE TABLET BY MOUTH EVERY DAY FOR DIABETES *NOTE:WHOLE TABLETS METOPROLOL SUCCINATE 50MG SA TAB TAKE ONE TABLET BY MOUTH EVERY DAY FOR HEART AND BLOOD PRESSURE MULTIVIT/OPHTH AREDS2/LUTE/ZEAX CAP/TAB TAKE 1 CAP/TAB BY MOUTH TWICE A DAY WITH MEALS MULTIVITAMIN CAP/TAB TAKE 1 TABLET BY MOUTH EVERY DAY SEMAGLUTIDE 0.25MG/0.375ML INJ PEN 3ML INJECT 0.5MG UNDER THE SKIN EVERY WEEK DIABETES AND WEIGHT LOSS VENLAFAXINE HCL 150MG 24HR SA CAP TAKE ONE CAPSULE BY MOUTH EVERY DAY Medications Medications in the last 90 days ACETAMINOPHEN 500MG TAB TAKE ONE TABLET BY MOUTH EVERY 6 HOURS NEEDED FOR PAIN INSULIN,GLARGINE 100 UNT/ML 3ML SOLOSTAR INJECT 14 UNITS UNDER THE SKIN EVERY DAY LIDOCAINE 5% PATCH APPLY 1 PATCH TOPICALLY EVERY DAY FOR PAIN OMEPRAZOLE 20MG EC CAP TAKE ONE CAPSULE BY MOUTH EVERY MORNING AND TAKE TWO CAPSULES EVERY EVENING ON AN EMPTY STOMACH, AT LEAST 30 MINUTES PRIOR TO A MEAL FOR REFRACTORY GERD YOU ARE THE MOST IMPORTANT FACTOR IN YOUR RECOVERY. Follow the above instructions carefully. Take your medicines as prescribed. If you do not understand any of your medicines, please ask questions. If you have any outstanding tests from the emergency department, please contact your provider to review them in the next 3-5 days. If you have new symptoms, feel worse, or are not getting better as discussed, call to discuss your health questions and arrange for follow-up care, or return to the Emergency Room IF YOU ARE EXPERIENCING A MEDICAL EMERGENCY CALL 911 OR GO TO THE NEAREST EMERGENCY ROOM // KESHA BARROSO MD Staff Physician Signed: 08/21/2023 16:01 KESHA BARROSO [facility] Aug 21, 2023 03:18 PM INTERNAL MEDICINE INPATIENT NOTE: LOCAL TITLE: MEDICINE INPT PROGRESS NOTE STANDARD TITLE: INTERNAL MEDICINE INPATIENT NOTE DATE OF NOTE: AUG 21, 2023@15:18 ENTRY DATE: AUG 21, 2023@15:18:30 AUTHOR: BRYANT FLAHERTY EXP COSIGNER: URGENCY: STATUS: COMPLETED SUBJECT: Brief ED triage note MEDICINE INPT PROGRESS NOTE Has ADDENDA 77 yo M with 2 recent falls with head injury. No presyncopal symptoms but has noticed increased daytime sleepiness and generalized weakness. BLE symmetric 4/5 weakness on exam. Both falls most likely mechanical. Has a walker at home. Encouraged patient to use walker at all times. Patient also recently moved to a new apartment on the 1st floor, no stairs for entry. He is agreeable to PT/OT [facility] Ordered in home PT and OT home safety eval for patient. Appreciate PACT assistance in setting up if agree. Will alert PACT hospice patient care secretary to help arrange. Also think PCP evaluation of increased daytime sleepiness would be helpful if PCP follow up could be arranged in next 2-3 weeks. /pablo/ BRYANT FLAHERTY MD PHYSICIAN Signed: 08/21/2023 15:30 Receipt Acknowledged By: 08/23/2023 14:44 /pablo/ Brittani Hernandez RN Registered Nurse 08/21/2023 15:43 /pablo/ MARIUSZ PHILLIPS MD PHYSICIAN 08/21/2023 ADDENDUM STATUS: COMPLETED Appreciate PACT CM assistance in setting up home health and clinic follow up. /aneesh PHILLIPS MD PHYSICIAN Signed: 08/21/2023 15:43 08/23/2023 ADDENDUM STATUS: COMPLETED See separate RN note. /aneesh Hernandez RN Registered Nurse Signed: 08/23/2023 14:44 BRYANT FLAHERTY [facility] Aug 21, 2023 02:10 PM PHYSICIAN EMERGENCY DEPT NOTE: LOCAL TITLE: EMERGENCY DEPT NOTE STANDARD TITLE: PHYSICIAN EMERGENCY DEPT NOTE DATE OF NOTE: AUG 21, 2023@14:10 ENTRY DATE: AUG 21, 2023@14:11:09 AUTHOR: KESHA BARROSO EXP COSIGNER: URGENCY: STATUS: COMPLETED Personal Protective Equipment (PPE): Patient was in mask on arrival, RN used PPE during every encounter with the patient, MD/PA/MOLD YARD SUPERVISOR used PPE during every encounter with the patient Nurse's note reviewed. Chief Complaint: The patient is a 77 y/o MALE complaining of: Status post fall x2 in the last few days TDAP/TD Immunizations No data available for: TETANUS TOXOID, ADSORBED TETANUS TOXOID, NOT ADSORBED TETANUS TOXOID, UNSPECIFIED FORMULATION TDAP Covid-19 Immunizations ADMINISTERED Immunization Series Date Facility Reaction Info COVID-19 (MODERNA), MRNA, LNP-S,* 1 09/09/2020 [facility] COVID-19 (MODERNA), MRNA, LNP-S,* 09/12/2020 [facility] COVID-19 (MODERNA), MRNA, LNP-S,* 2 10/13/2020 [facility] COVID-19 (MODERNA), MRNA, LNP-S,* 3 07/20/2021 [facility] COVID-19 (MODERNA), MRNA, LNP-S,* 4 11/29/2021 [facility]* CONTRAINDICATED No data available REFUSED ======= No data available * Value is truncated; see the Detailed Immunizations Health Summary Component[DIM] for complete text History of present illness: Patient past medical history as listed below significant for atrial fibrillation on anticoagulation, had 2 instances of fall in the last weekend. Unclear what caused his fall he was trying to move some grocery item bags in his when when he had the first episode he is not quite sure if he lost his consciousness or not but not clear whether he tripped. The second episode was he was walking in dark and he tripped and fell. He was at the CT for his regular appointment with mental health provider who recommended that he be seen in the emergency room because he had 2 falls and hit his head. He denies any chest pain pressure heaviness tightness lightheadedness dizziness. He lives alone and independently. Complains of some neck pain. More than 10 point review of system was carried out was otherwise negative. Allergies: SULFAMETHOXAZOLE (Feb 07, 2022) EMPAGLIFLOZIN (Jun 06, 2022) Review of Systems: 10 point ROS reviewed and otherwise negative unless stated in HPI. Past Medical History: Active problems - Computerized Problem List is the source for the followin. Essential hypertension (SNOMED CT 85541109) 2. Major depressive disorder (SNOMED CT 398077229) 3. Generalized anxiety disorder (SNOMED CT 33975603) 4. Primary Obesity 5. Bronchiectasis (SNOMED CT 57855666) 6. Gastroesophageal reflux disease (SNOMED CT 329469512) 7. Bariatric Surgery Status 8. Cataracts (SNOMED CT 27953263) 9. Hypermetropia/Hyperopia 10. Astigmatism, Unspec 11. Presbyopia 12. Atrial fibrillation (SNOMED CT 89984870) 13. Varicose veins of lower extremity 14. Compulsive gambling 15. Bipolar disorder (SNOMED CT 32865571) 16. Mild cognitive disorder 17. Type 2 diabetes mellitus 18. Long-term current use of anticoagulant 19. Gastritis 20. Dementia Social History: Medications: Active Outpatient Medications (excluding Supplies): Outpatient Medications Status 1) ACCU-CHEK GUIDE (GLUCOSE) TEST STRIP USE 1 STRIP ACTIVE EVERY DAY TO CHECK BLOOD SUGAR--USE WITHIN 3 MINUTES OF REMOVING FROM CONTAINER 2) APIXABAN 5MG TAB TAKE ONE TABLET BY MOUTH EVERY 12 ACTIVE HOURS TO PREVENT AND/OR TREAT BLOOD CLOTS 3) ARIPIPRAZOLE 20MG TAB TAKE ONE TABLET BY MOUTH EVERY ACTIVE DAY FOR BIPOLAR DISORDER DOSE INCREASED 11-23-22 4) ATORVASTATIN CALCIUM 10MG TAB TAKE ONE TABLET BY ACTIVE MOUTH AT BEDTIME 5) BUPROPION HCL 150MG 24HR SA TAB TAKE ONE TABLET BY ACTIVE MOUTH EVERY MORNING 6) CALCIUM 200MG (CA CITRATE-950MG) TAB TAKE TWO TABLETS ACTIVE BY MOUTH TWICE A DAY FOR CALCIUM SUPPLEMENT 7) CHOLECALCIF 25MCG (D3-1,000UNIT) TAB TAKE ONE TABLET ACTIVE BY MOUTH EVERY DAY 8) CYANOCOBALAMIN 1000MCG TAB TAKE ONE TABLET BY MOUTH ACTIVE EVERY DAY 9) FERROUS SULFATE 325MG TAB TAKE ONE TABLET BY MOUTH ACTIVE EVERY DAY IRON DEFICIENCY 10) MAGNESIUM OXIDE 400MG TAB TAKE TWO TABLETS BY MOUTH ACTIVE EVERY DAY FOR SUPPLEMENTATION 11) METFORMIN HCL 500MG TAB TAKE ONE TABLET BY MOUTH ACTIVE EVERY DAY FOR DIABETES *NOTE:WHOLE TABLETS 12) METOPROLOL SUCCINATE 50MG SA TAB TAKE ONE TABLET BY ACTIVE MOUTH EVERY DAY FOR HEART AND BLOOD PRESSURE 13) MULTIVIT/OPHTH AREDS2/LUTE/ZEAX CAP/TAB TAKE 1 ACTIVE CAP/TAB BY MOUTH TWICE A DAY WITH MEALS 14) MULTIVITAMIN CAP/TAB TAKE 1 TABLET BY MOUTH EVERY DAY ACTIVE 15) SEMAGLUTIDE 0.25MG/0.375ML INJ PEN 3ML INJECT 0.5MG ACTIVE UNDER THE SKIN EVERY WEEK DIABETES AND WEIGHT LOSS 16) VENLAFAXINE HCL 150MG 24HR SA CAP TAKE ONE CAPSULE BY ACTIVE MOUTH EVERY DAY MEDICATION RECONCILIATION: The medication list above was reviewed with the patient at today's visit. I have updated the medications under the Meds tab as appropriate. The patient will be given an updated medication list upon discharge from the Emergency Department. Physical Exam: BP: 110/63 (08/21/2023 12:02) P: 66 (08/21/2023 12:02) R: 16 (08/21/2023 12:02) T: 97.4 F [36.3 C] (08/21/2023 12:02) O2 Sats: 99% (08/21/2023 12:02) General: NAD Neck: suppleTender over C4 Eye: PERRLA, EOMI Cardiovascular: S1/S2, irregularly irregular rhythm Respiratory: Lungs - clear to auscultation bilaterally Abdominal: normal bowel sounds, soft,NT,ND Neuro: alert and oriented, grossly non-focal Extremities: No edema Ekg Interpretation: Labs: PT/INR Done: WBC: 6.27 RBC: 3.93 L HGB: 11.7 L HCT: 35.6 L MCV: 90.6 MCH: 29.8 MCHC: 32.9 RDW: 13.8 PLT: 248 MPV: 9.4 SEGS: 43.2 LYMPHS: 41.9 MONOCYTES: 11.2 EOSINO: 3.3 BASO: 0.2 NEUTROPHIL, ABSOLUTE: 2.71 EOSINO, ABSOLUTE: 0.21 BASO, ABSOLUTE: 0.01 MONOCYTE, ALTERNATE ABS: 0.70 LYMPHS, ALTERNATE ABS: 2.63 I.2 IG,ABSOLUTE: 0.01 TROPONIN, HIGH SENSITIVITY: <3 GLUCOSE: 82 UREA NITROGEN: 23 CREATININE: 1.2 SODIUM: 142 POTASSIUM: 3.7 CHLORIDE: 105 CO2: 30 H CALCIUM: 8.7 MAGNESIUM: 1.7 ANION GAP: 7 CREATININE EGFR (CKD-EPI): 63 Imaging: CT head and C-spine without acute fracture UA equivocal for UTI ED Course/Medical Decision Making/Assessment: CPRS Notes/Labs Reviewed for Patient Encounter: Emergency department triage, emergency department nursing note, Diagnosis and Plan: 2 recent falls both mechanical likely -Patient lives alone but does have a [employer] and will be using it. -Hospitalist team to arrange for home PT OT and social work for home safety -Patient feels safe and ambulated before discharge in the emergency room without any unsteady gait. -No acute neurologic deficits. -Care plan discussed with hospitalist for possible observation admission. Hospitalist will arrange for home safety evaluation and PT OT Equivocal UA -Patient is somewhat symptomatic -Started on antibiotics -Patient to follow-up with primary care provider for repeat UA after treatment as patient did have hematuria as well. Patient understands and agrees with plan Disposition: Condition on discharge: Improved Provider determined patient ready for discharge at: Patient instructed to call primary care provider if no improvement. /pablo/ KESHA BARROSO MD Staff Physician Signed: 08/21/2023 19:09 Receipt Acknowledged By: 08/22/2023 08:36 /aneesh PHILLIPS MD PHYSICIAN for LYUBOV YEUNG 08/22/2023 08:36 /aneesh PHILLIPS MD PHYSICIAN KESHA BARROSO [facility] Aug 21, 2023 12:04 PM NURSING EMERGENCY DEPT TRIAGE NOTE: LOCAL TITLE: EMERGENCY DEPARTMENT NURSING TRIAGE NOTE STANDARD TITLE: NURSING EMERGENCY DEPT TRIAGE NOTE DATE OF NOTE: AUG 21, 2023@12:04 ENTRY DATE: AUG 21, 2023@12:04:24 AUTHOR: REBECCA PAEZ EXP COSIGNER: URGENCY: STATUS: COMPLETED EMERGENCY DEPARTMENT NURSING TRIAGE NOTE Has ADDENDA Emergency Department/Urgent Care Center Triage Patient age:77 Sex: MALE On arrival patient was: AMBULATORY Patient phone number: Allergies: SULFAMETHOXAZOLE (Feb 07, 2022) EMPAGLIFLOZIN (Jun 06, 2022) Subjective/Chief Complaint: I fell a couple of times this past weekend and hit my head Objective: Ambulated to desk, no distress noted The patient is not a fall risk. Vital Signs * Blood Pressure: 110/63 (08/21/2023 12:02) Heart Rate: 66 (08/21/2023 12:02) Respirations: 16 (08/21/2023 12:02) Temperature: 97.4 F [36.3 C] (08/21/2023 12:02) Pain: 3 (08/21/2023 12:02) Weight: 184.3 lb [83.60 kg] (07/11/2023 09:58) O2 Sats: 99% (08/21/2023 12:02) Emergency Severity Index (COURTNEY) level Level 3 Current Medications: Active Outpatient Medications (including Supplies): Active Outpatient Medications Status 1) ACCU-CHEK GUIDE (GLUCOSE) TEST STRIP USE 1 STRIP ACTIVE EVERY DAY TO CHECK BLOOD SUGAR--USE WITHIN 3 MINUTES OF REMOVING FROM CONTAINER 2) APIXABAN 5MG TAB TAKE ONE TABLET BY MOUTH EVERY 12 ACTIVE HOURS TO PREVENT AND/OR TREAT BLOOD CLOTS 3) ARIPIPRAZOLE 20MG TAB TAKE ONE TABLET BY MOUTH EVERY ACTIVE DAY FOR BIPOLAR DISORDER DOSE INCREASED 11-23-22 4) ATORVASTATIN CALCIUM 10MG TAB TAKE ONE TABLET BY ACTIVE MOUTH AT BEDTIME 5) BUPROPION HCL 150MG 24HR SA TAB TAKE ONE TABLET BY ACTIVE MOUTH EVERY MORNING 6) CALCIUM 200MG (CA CITRATE-950MG) TAB TAKE TWO TABLETS ACTIVE BY MOUTH TWICE A DAY FOR CALCIUM SUPPLEMENT 7) CHOLECALCIF 25MCG (D3-1,000UNIT) TAB TAKE ONE TABLET ACTIVE BY MOUTH EVERY DAY 8) CYANOCOBALAMIN 1000MCG TAB TAKE ONE TABLET BY MOUTH ACTIVE EVERY DAY 9) FERROUS SULFATE 325MG TAB TAKE ONE TABLET BY MOUTH ACTIVE EVERY DAY IRON DEFICIENCY 10) MAGNESIUM OXIDE 400MG TAB TAKE TWO TABLETS BY MOUTH ACTIVE EVERY DAY FOR SUPPLEMENTATION 11) METFORMIN HCL 500MG TAB TAKE ONE TABLET BY MOUTH ACTIVE EVERY DAY FOR DIABETES *NOTE:WHOLE TABLETS 12) METOPROLOL SUCCINATE 50MG SA TAB TAKE ONE TABLET BY ACTIVE MOUTH EVERY DAY FOR HEART AND BLOOD PRESSURE 13) MULTIVIT/OPHTH AREDS2/LUTE/ZEAX CAP/TAB TAKE 1 ACTIVE CAP/TAB BY MOUTH TWICE A DAY WITH MEALS 14) MULTIVITAMIN CAP/TAB TAKE 1 TABLET BY MOUTH EVERY DAY ACTIVE 15) SEMAGLUTIDE 0.25MG/0.375ML INJ PEN 3ML INJECT 0.5MG ACTIVE UNDER THE SKIN EVERY WEEK DIABETES AND WEIGHT LOSS 16) VENLAFAXINE HCL 150MG 24HR SA CAP TAKE ONE CAPSULE BY ACTIVE MOUTH EVERY DAY Current Problems: Essential hypertension ([facility] 16246910) Major depressive disorder ([facility] 862484242) Generalized anxiety disorder ([facility] 861799Pvcihza Obesity (ICD-9-CM 278.00) Bronchiectasis ([facility] 05127809) Gastroesophageal reflux disease ([facility] 057040788) Bariatric Surgery Status (ICD-9-CM V45.8Cataracts ([facility] 86813069) Hypermetropia/Hyperopia (ICD-9-CM 367.0)Astigmatism, Unspec (ICD-9-CM 367.20) Presbyopia (ICD-9-CM 367.4) Atrial fibrillation ([facility] 40527622) Varicose veins of lower extremity (SCT 7Compulsive gambling ([facility] 33467822) Bipolar disorder ([facility] 29681802) Mild cognitive disorder ([facility] 759917059) Type 2 diabetes mellitus ([facility] 17366434) Long-term current use of anticoagulant ([facility] 133218226) Gastritis ([facility] 4490563) Dementia ([facility] 57220052) Identification of Seniors at Risk (ISAR):* Perform Screen Yes-ISAR help on a regular basis Yes-ISAR More than 3 different medications daily Total Score: 2 Suicide Screen: [place] Suicide Severity Rating Scale (C-SSRS) screener 1. [...] went to the roof but didn't jump)? No 8. If YES, was this within the past 3 months? Response not required due to responses to other questions. /pablo/ REBECCA PAEZ MSN, RN REGISTERED NURSE Signed: 08/21/2023 12:06 08/21/2023 ADDENDUM STATUS: COMPLETED Patient is a falls risk due to falling twice this past weekend. Offered wheel chair to patient, he declined. Encourged patient to ask for assitance before ambulating. /pablo/ REBECCA PAEZ, MSN, RN REGISTERED NURSE Signed: 08/21/2023 12:46 REBECCA PAEZ [facility]
--- OUTSIDE RECORDS SUMMARY | 2024-07-06 16:26 | XMS_ITS | Encounter Summary ---
Author Name [facility] [place] [facility] [place] Address [address] [place] [place] [address] Care Team Providers Care Project Coach Name Role Phone MARIUSZ PHILLIPS Primary Care [...] PART A Sep 26, 2012 PART A [id number] [phone] JUAN THOMPSON JR PATIENT MEDICARE (WNR) MEDICARE (M) PART B Sep 26, 2012 PART B [id number] [phone] JUAN THOMPSON JR PATIENT Selected Encounter This section includes the information on record at [place] for the Encounter. Date/Time Encounter Type Encounter Description Reason Pro vider Source Oct 02, 2023 10:30 AM Outpatient Encounter PSYCHOGERIATRIC - INDIVIDUAL IHE Encounter Template Text not used by [place] Plan of Treatment: Future Appointments (+ 6 months) and Future Tests (+/- 45 days) The Plan of Treatment section includes future care activities for the patient [facility] [place] [facility] This section includes future appointments and future orders which are active, pending or scheduled. Future Appointments This section includes appointments that were scheduled to occur 6 months from the date of the Encounter, up to a maximum of 20 appointments. The data comes from all [place] treatment facilities. Appointment Date/Time Appointment Type Appointme nt Facility Name Oct 03, 2023 08:30 AM [place] [facility] Oct 09, 2023 09:00 AM AMBULATORY - NONE [place] [facility] Oct 09, 2023 10:00 AM [place]BULATORY - [place]ICINE [place] [facility] Nov 07, 2023 09:30 AM AM[place]ULATORY - MEDICINE [place] [facility] Nov 07, 2023 10:30 AM [place]ATORY - MEDICINE [place] [facility] Nov 07, 2023 11:30 AM AM[place] [facility] Nov 07, 2023 11:45 AM [place]ULATORY - MEDICINE [place] [facility] Nov 20, 2023 09:00 AM [place] [facility] December 05, 2023 09:30 AM AM[place]ULATORY [place]ATRY [place] [facility] Feb 07, 2024 11:00 AM AM[place]ULATORY - NONE [place] [facility] Feb 07, 2024 11:30 AM AMBUL[place]ORY - SURGERY [place] [facility] Feb 07, 2024 12:30 PM AM[place]ATORY - NONE [place] [facility] Feb 18, 2024 08:00 AM AM[place]ULATORY - MEDICINE [place] [facility] Mar 05, 2024 07:30 AM [place]ATORY - MEDICINE [place] [facility] Mar 05, 2024 08:30 AM [place]ATORY - MEDICINE [place] [facility] Mar 05, 2024 10:00 AM AM[place]ULATORY - MEDICINE [place] [facility] Mar 09, 2024 08:45 AM AMBULATORY - SURGERY [place] [facility] Mar 16, 2024 09:00 AM AM[place]ULATORY - MEDICINE [place] [facility] Mar 16, 2024 10:15 AM AM[place]ULATORY - NONE [place] [facility] Mar 27, 2024 07:00 AM AM[place]ULATORY - NONE [place] [facility] Active, Pending, and Scheduled Orders This section includes a listing of several types of active, pending, and scheduled orders, including clinic medications orders, diagnostic test orders, procedure orders and consult orders; where the start date of the order is 45 days before the date of the Encounter or 45 days after the date of theEncounter. The data comes from all [place] treatment facilities. Test Date/Time Test Type Test Details Facility Name Aug 21, 2023 04:02 PM Laboratory - Chemi stry Order URINALYSIS URINE ER STAT WC ONCE [facility] Lab Results: +/- 30 days [...] - Unit Interpretation Reference Range Comment Oct 09, 2023 08:[address] [facility] HEMOGLOBIN A1C Specimen Type: BLOOD Comment: Values obtained from A1C measurements can vary. For typical A1C assays, a reported value of 7.0 could actually be between 6.7 and 7.3 if measured by a reference method. A reported value of 9.0 could actually be between 8.7 and 9.3. Ref: http://www.ngs p.org/CAPdata. asp Ordering Provider: YO YEUNG Report Released Date/Time: Aug 29, 2023 04:30 PM Reporting Lab: [facility] [id number] Performing Lab: [facility] [id number] HEMOGLOBIN A1C 6.4 H 4.0-6.0 Oct 09, 2023 08:[address] [facility] CBC Specimen Type: BLOOD No comment entered. Ordering Provider: OY YEUNG Report Released Date/Time: Aug 29, 2023 04:30 PM Reporting Lab: [facility] [id number] Performing Lab: [facility] [address] WBC 7.18 10*3/uL 4.0-11.0 RBC 3.94 10*6/uL L 4.6-6.2 HGB 11.7 g/dL L 13.5-17.9 HCT 36.0 L 41-54 MCV 91.4 fL 80-100 MCH 29.7 pg 27-33 MCHC 32.5 g/dL 32.0-37.5 PLT 266 10*3/uL 150-400 MPV 9.7 fL 7.4-10.4 RDW 14.3 11.5-14.5 Oct 09, 2023 08:[address] [facility] BASIC METABOLIC PANEL+MG Specimen Type: PLASMA No comment entered. Ordering Provider: YO YEUNG Report Released Date/Time: Aug 29, 2023 04:30 PM Reporting Lab: [facility] [id number] Performing Lab: [facility] [id number] CREATININE 1.1 mg/dL 0.7-1.2 UREA NITROGEN 22 mg/dL 8-26 GLUCOSE 151 mg/dL H 70-100 SODIUM 141 mmol/L 136-145 POTASSIUM 3.8 mmol/L 3.5-5.1 CHLORIDE 104 mmol/L 98-107 CO2 29 mmol/L 22-29 CALCIUM 9.3 mg/dL 8.4-10.2 MAGNESIUM 1.4 mg/dL L 1.6-2.6 ANION GAP 8 mmol/L 5-15 .CREAT EGFR(CKD-EPI ) 70 >60 Social History: Smoking Status (Most [...] 2023 10:30 AM [facility] OR [facility] Aug 15, 2022 09:00 AM VA-TOBACCO FORMER USER [facility] Aug 15, 2022 09:00 AM [...] GREATE R [facility] Jan 04, 2012 08:36 AM FORMER TOBACCO USER 7Y OR [facility] Encounter Notes: All associated encounter notes This section contains the clinical notes associated to the Encounter. Date/Time Encounter Note(s) Provider Source Sep 19, 2023 11:03 AM NO SHOW NOTE: LOCAL TITLE: NO SHOW/CANCELLATION CLINIC NOTE STANDARD TITLE: NO SHOW NOTE DATE OF NOTE: SEP 19, 2023@11:03 ENTRY DATE: SEP 19, 2023@11:03:09 AUTHOR: HARRISON DALLAS EXP COSIGNER: URGENCY: STATUS: COMPLETED [place] not seen for scheduled appointment due to: cancelled Pt cancelled appt for 10/02/23 @ 10:30. Appointment Rescheduled: Yes Pt r/s for 10/03/23 @ 8:30. Please review patient chart and medications for renewal needs (if appropriate). /pablo/ HARRISON DALLAS SUPERVISOR LACE TEARING Signed: 09/19/2023 11:03 Receipt Acknowledged By: 09/19/2023 13:51 /pablo/ LORETA HONEYCUTT DO STAFF PSYCHIATRIST 09/19/2023 11:10 /pablo/ MYLES JOE RN-BSN, MA RN-BSN, [facility]
--- OUTSIDE RECORDS SUMMARY | 2024-07-06 16:26 | XMS_ITS | Encounter Summary ---
Author Name [facility] Address [address] [place] [address] Care Team Providers Care Resource Director Name Role Phone MARIUSZ PHILLIPS Primary Care Provider TUAN Mayfield Unavailable [...] PART A Sep 26, 2012 PART A [id number] [facility] [phone] JUAN THOMPSON JR PATIENT MEDICARE (WNR) MEDICARE (M) PART B Sep 26, 2012 PART B [id number] [phone] JUAN THOMPSON JR PATIENT Selected Encounter This section includes the information on record at [place] for the Encounter. Date/Time Encounter Type Encounter Description Reason Provider Source Oct 09, 2023 10:00 AM OFFICE O/P EST MOD 30 MIN PRIMARY CARE/MEDICINE ICD-10-CM W19.XXXD Unspecified fall, subsequent encounter LINDA OVIEDO I IHBaldo Encounter Template Text not used by [place] Assessments - Encounter Diagnoses This section includes the primary and secondary diagnoses documented for the Encounter. Date/Time Primary/Secondary Diagnosis Diagnosis Name Provider Source Oct 09, 2023 03:09 PM PRIMARY [facility]specified [facility], [facility] Oct 09, 2023 03:09 PM SECONDARY Asymptomatic varicose veins of bilateral lower extremities [facility] Oct 09, 2023 03:09 PM SECONDARY Bipolar II disorder [facility] Oct 09, 2023 03:09 PM SECONDARY Bronchiectasis, uncomplicated [facility] Oct 09, 2023 03:09 PM SECONDARY Essential (primary) hypertension [facility] Oct 09, 2023 03:09 PM SECONDARY Gastro-esophageal reflux disease without esophagitis [facility] Oct 09, 2023 03:09 PM SECONDARY Generalized anxiety disorder 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 Oct 09, 2023 03:09 PM SECONDARY Major depressive disorder, recurrent, moderate [facility] Oct 09, 2023 03:09 PM SECONDARY Other drug induced secondary parkinsonism [facility] Oct 09, 2023 03:09 PM SECONDARY Type 2 diabetes mellitus with unspecified complications [facility] Oct 09, 2023 03:09 PM SECONDARY Unspecified atrial fibrillation [facility] Oct 09, 2023 03:09 PM SECONDARY Unspecified dementia, mild, with other behavioral disturb [facility] Plan of Treatment: Future Appointments (+ [...] [place] treatment facilities. Appointment Date/Time Appointment Type Appointme nt Facility Name Nov 07, 2023 09:30 AM AMB[place] [facility] Nov 07, 2023 10:30 AM [place] [facility] Nov 07, 2023 11:30 AM AMBUL[place] [facility] Nov 07, 2023 11:45 AM [place]IC[place] [facility] Nov 20, 2023 09:00 AM [place] [facility] December 05, 2023 09:30 AM AMB[place] [facility] Feb 07, 2024 11:00 AM [place] [facility] Feb 07, 2024 11:30 AM [place] [facility] Feb 07, 2024 12:30 PM AM[place]ORY [place] [facility] Feb 18, 2024 08:00 AM AMBULATORY [place]IC[place] [facility] Mar 05, 2024 07:30 AM [place] [facility] Mar 05, 2024 08:30 AM [place] [facility] Mar 05, 2024 10:00 AM [place]UL[place]ORY [place] [facility] Mar 09, 2024 08:45 AM AMBUL[place]ORY [place] [facility] Mar 16, 2024 09:00 AM [place]ORY [place] [facility] Mar 16, 2024 10:15 AM [place]ORY [place] [facility] Mar 27, 2024 07:00 AM [place] [facility] Mar 31, 2024 07:00 AM [place] [facility] Lab Results: +/- 30 days of [...] - Unit Interpretation Reference Range Comment Nov 07, 2023 11:14 AM [facility] VIT D 25-OH,TOTAL Specimen Type: SERUM No comment entered. Ordering Provider: ISAEL ALVAREZ Report Released Date/Time: Nov 07, 2023 10:08 AM Reporting Lab: [facility] [id number] Performing Lab: [facility] [id number] VIT D 25-OH,TOTAL 70 ng/mL H 12-50 Nov 07, 2023 09:38 AM [facility] VITAMIN A Specimen Type: SERUM Comment: Vitamin supplementation within 24 hours prior to blood draw may affect the accuracy of the results. This test was developed and its analytical performance characteristics have been determined by [employer] [place], [place]. It has not been cleared or approved by the U.S. Food and Drug Administration. This assay has been validated pursuant to the CLIA regulations and is used for clinical purposes. Test Performed by [facility], [employer] [facility], [address] [place] [address] Devante Meyer M.D., Ph.D., Director of Laboratories , [place] [id number] Ordering Provider: ISAEL ALVAREZ Report Released Date/Time: Jul 11, 2023 10:23 AM Reporting Lab: [facility] [id number] Performing Lab: [facility] [id number] [place] [address] VITAMIN A 58 ug/dL 38-98 Nov 07, 2023 09:38 AM [facility] HEMOGLOBIN [...] Jul 11, 2023 10:23 AM Reporting Lab: [facility] [id number] Performing Lab: [facility] [phone] HEMOGLOBIN A1C 6.4 H 4.0-6.0 Oct 09, 2023 08:35 AM [facility] HEMOGLOBIN A1C Specimen Type: BLOOD Comment: Values obtained from A1C measurements can vary. For typical A1C assays, a reported value of 7.0 could actually be between 6.7 and 7.3 if measured by a reference method. A reported value of 9.0 could actually be between 8.7 and 9.3. Ref: http://www.[email or web address] [email or web address] Ordering Provider: TUAN YEUNG Report Released Date/Time: Aug 29, 2023 04:30 PM Reporting Lab: [facility] [id number] Performing Lab: [facility] [phone] HEMOGLOBIN A1C 6.4 H 4.0-6.0 Oct 09, 2023 08:35 AM [facility] CBC Specimen Type: BLOOD No comment entered. Ordering Provider: TUAN YEUNG Report Released Date/Time: Aug 29, 2023 04:30 PM Reporting Lab: [facility] [id number] Performing Lab: [facility] [phone] WBC 7.18 10*3/uL 4.0-11.0 RBC 3.94 10*6/uL L 4.6-6.2 HGB 11.7 g/dL L 13.5-17.9 HCT 36.0 L 41-54 MCV 91.4 fL 80-100 MCH 29.7 pg 27-33 MCHC 32.5 g/dL 32.0-37.5 PLT 266 10*3/uL 150-400 MPV 9.7 fL 7.4-10.4 RDW 14.3 11.5-14.5 Oct 09, 2023 08:35 AM [facility] BASIC METABOLIC PANEL+MG Specimen Type: PLASMA No comment entered. Ordering Provider: TUAN YEUNG Report Released Date/Time: Aug 29, 2023 04:30 PM Reporting Lab: [facility] [phone] Performing Lab: [facility] [phone] CREATININE 1.1 mg/dL 0.7-1.2 UREA NITROGEN 22 mg/dL 8-26 GLUCOSE 151 mg/dL H 70-100 SODIUM 141 mmol/L 136-145 POTASSIUM 3.8 mmol/L 3.5-5.1 CHLORIDE 104 mmol/L 98-107 CO2 29 mmol/L 22-29 CALCIUM 9.3 mg/dL 8.4-10.2 MAGNESIUM 1.4 mg/dL L 1.6-2.6 ANION GAP 8 mmol/L 5-15 .CREAT EGFR(CKD-EPI ) 70 >60 Vital Signs: All taken on the encounter date This section contains inpatient and outpatient Vital Signs collected on the date of the Encounter. Date/Time Temperature Pulse Blood Pressure Respiratory Rate SP02 Pain Height Weight Body Mass Index Source Oct 09, 2023 09:43 AM 124 117/78 16 98 0 68 185 28 [facility] Social History: Smoking Status (Most current) and Tobacco Use (All prior to encounter date) This section includes the most current, and the historical, smoking and tobacco- related health factors from the [facility] where the Encounter took place. Current Smoking Status This section includes the most current smoking, or tobacco-related health factor, from the [place] facility where the Encounter took place. Date/Time Current Smoking Status Comment Facil ity Aug 21, 2023 10:30 AM [facility]ACCO FORMER USER [facility] Tobacco Use [...] MORE [facility] Aug 15, 2022 09:00 AM VA-TOBACCO FORMER USER [facility] Aug 15, 2022 09:00 AM VA-TOBACCO QUIT [...] GREATE R [facility] Encounter Notes: All associated encounter notes This section contains the clinical notes associated to the Encounter. Date/Time Encounter Note(s) Provider Source Feb 24, 2024 10:19 AM ADDENDUM: LOCAL TITLE: Addendum STANDARD TITLE: ADDENDUM DATE OF NOTE: FEB 24, 2024@10:19:09 ENTRY DATE: FEB 24, 2024@10:19:10 AUTHOR: MARIUSZ PHILLIPS COSIGNER: URGENCY: STATUS: COMPLETED Alerting PCP to results of TTE, will defer patient notification and follow up for mild/mod to PCP. 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 HPI/ROS: 77M following up for annual. Last seen in our clinic 07/2022 Dr. Mondragon with f/u in 1y. Metabolic clinic started semaglutide for him, decreased his glargine, continued metformin. His DEXA showed normal bone density. Seen by ortho for OA, received injections in both knees and rec MARK for R hip. Appears to be lost to their f/u as he never called to schedule his next visit as they requested. Was seen in ED in interim 07/2023 for repeated falls, thought to be mechanical in nature, CT H/N was negative for acute issues. Equivocal UA, though was given abx as he was felt to be symptomatic. Home safety evaluation and PT/OT set up after that visit. Notes also indicate he had been more sleepy during the daytime and confused than his baseline, with possible subsequent return to his baseline after abx course. He continued to have falls, however, (at least two in September, one leading to injury on his chin requiring stitches per available notes). He has an order for home PT and they will start services during the week of 10/20 d/t staff availability. As relates to his falls - One of the falls was getting on the bus with his groceries and states he was on slippery ground and his feet came out from under him. Another was when he was getting out of bed - doesn't have carpet or rugs, has a mattress and boxspring directly on the floor without a frame, has refused to use a bedframe or use a hospital bed d/t concerns about falling out of bed. Thinks he tripped on something but is not sure what. The most recent was standing from the couch, when he stood up and tried to walk he felt like his feet didn't come with me and he fell straight forward and felt powerless to stop himself. He notes he's had a more difficult time walking lately because he keeps losing his balance, not because he's dizzy or lightheaded but just because he feels like he tips over. Thinks he might be weak but also feels like his feet don't move as well as they used to, he has a lot of difficulty especially with turns/stopping/starting. Does endorse feeling lightheaded occasionally when standing up fast but this is not a regular occurrence and was not associated with any of his falls. Endorses SOB with activity but not chest pain and none related to his falls. He was referred to [employer] [employer] at last visit, where eval showed mild deficits with no need for specific dysphagia diet. However, they did recommend possible consult to Neurology given hypophonia and tongue shaking seen during swallowing and at rest during CN exam if not consistent with tardive dyskinesia. Seen by psychiatry 09/2023, dx major Major Neurocognitive Disorder, multifactoral etiology (vascular , bipolar disorder, h/o delirium, sleep dysfunction), psychosis, and BPD. Has VH/delusions that are fixed and not causing significant impairment. Bupropion d/c'd at that visit. Exam at that time was not felt to be c/w tardive dyskinesia. 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 He has a court appointed guardian as below. Name of guardian: [employer] [facility], Flor Fajardoer, Elaina Verdugo and/or Jj Lassiter Contact information for guardian: [address] [facility] [address] Office: [phone] Past medical history/Active Problems: Active problems - Computerized Problem List is the source for the followin. Essential hypertension (SNOMED CT 45398921) 2. Major depressive disorder (SNOMED CT 996067036) 3. Generalized anxiety disorder (SNOMED CT 04382800) 4. Primary Obesity 5. Bronchiectasis (SNOMED CT 60516410) 6. Gastroesophageal reflux disease (SNOMED CT 540245704) 7. Bariatric Surgery Status 8. Cataracts (SNOMED CT 69045605) 9. Hypermetropia/Hyperopia 10. Astigmatism, Unspec 11. Presbyopia 12. Atrial fibrillation (SNOMED CT 00970190) 13. Varicose veins of lower extremity 14. Compulsive gambling 15. Bipolar disorder (SNOMED CT 76471116) 16. Mild cognitive disorder 17. Type 2 diabetes mellitus 18. Long-term current use of anticoagulant 19. Gastritis 20. Dementia Allergies: SULFAMETHOXAZOLE (Feb 07, 2022) EMPAGLIFLOZIN (Jun 06, 2022) EXAM: VS: Temperature: 97.4 F [36.3 C] (08/21/2023 12:02) Blood Pressure: 117/78 (10/09/2023 09:43) Pulse: 112-122, measured manually during clinic at intervals Respiration: 16 (10/09/2023 09:43) Pain: 0 (10/09/2023 09:43) General: sitting comfortably, NAD HEENT: NCAT, PERRL, EOMI, MMM Lungs: bibasilar insp crackles otherwise CTAB, no W/R/R CV: irregularly irregular and tachycardic, no M/G/R, no JVD Abdomen: BS+, S/NT/ND, no masses Extremities: WWP, 2+ pitting edema b/l LE, pulses 2+ and symmetric b/l Neuro: Shuffling gait, hypophonia, fine resting tremor most notable in jaw> hands. Strength 5/5 in UE and LE. CN II-XII grossly intact Psych: Calm, cooperative, appropriate Data/Labs: Today's Labs: GLUCOSE: 151 H UREA NITROGEN: 22 CREATININE: 1.1 SODIUM: 141 POTASSIUM: 3.8 CHLORIDE: 104 CO2: 29 CALCIUM: 9.3 MAGNESIUM: 1.4 L ANION GAP: 8 CREATININE EGFR (CKD-EPI): 70 HGB A1C: 6.4 H WBC: 7.18 RBC: 3.94 L HGB: 11.7 L HCT: 36.0 L MCV: 91.4 MCH: 29.7 MCHC: 32.5 RDW: 14.3 PLT: 266 MPV: 9.7 Assessment and Plan: # C/f drug-induced parkinsonism Presenting today with hypophonia, fine resting tremor (of jaw more than hands, and also reportedly of tongue per [employer] exam), shuffling gait, increasing difficulty with turns/stopping/starting, recent hx of feet getting stuck causing him to fall over. Long hx of antipsychotic Rx. I suspect this is the most significant cause of his recent falls given his description of the events surrounding them and his grossly intact strength on exam. It's not clear to me that his antipsychotic regimen could be safely modified significantly, and he may require symptom management with additional pharmacotherapy. - Referral to neurology - Co-sign psychiatry as FYI, consider modification of antipsychotics as able # Deconditioning # Falls - Home PT to start this month # A Fib (CHADVASC 5) with RVR # HTN - controlled BP today controlled, HR above goal (110s-120s) though without hypotension or symptomatic palpitations. His hx worsening LE edema and basilar crackles on exam leaves some c/f tachycardia-mediated acute HF (last echo 2018 was unremarkable). Will increase metoprolol slightly as better rate control would be helpful overall and doubt hypotension is contributing significantly to his falls. Will get CXR and echo to w/u possible HF (possibly tachycardia-mediated CM). - Incr metoprolol to 75 mg QD - Cont apixaban via anticoag clinic - TTE and CXR ordered - Will consider referral to cardiology in future pending echo or for consideration of rhythm control vs ablation # OA Affected: hips, knees. [facility] planning for R hip [facility]. - APAP PRN - Lidocaine QDay - Voltaren gel PRN - PT - F/u ortho, co-signed for scheduling purposes as he appears to be lost to followup # Overweight Previously obese, has lost 35 lbs on purpose in the past year. Follows w/metabolic clinic, on semaglutide. - F/u metabolic clinic as planned # Normocytic anemia Stable. Mulifactorial (vitamin deficiencies d/t gastric bypass + ACD). - Supplements and f/u as planned per metabolic clinic (next visit 10/2023) # Bipolar II # STEPHANIE # Major Neurocognitive Disorder, multifactoral etiology (vascular , bipolar disorder, h/o delirium, sleep dysfunction) # Sleep dysfunction # Psychosis Follows with Dr. Delvalle with . No SI/HI. Feels this is well controlled currently. - cont psych meds per # DMII A1c today 6.4 from 6.5. Metabolic clinic following. Stopped insulin around 07/2023 as he ran out of supplies and wasn't re-ordered, but his A1c is low enough today that he should be off insulin anyway. - Diabetic Nephropathy: wnl 2022, repeat U alb/cr next visit - Diabetic Neuropathy/Foot Exam: complete at next visit - Diabetic Retinopathy: reminded to call eye clinic for appt - Cont metformin 500 mg QD - Cont semaglutide 0.5 mg QW - F/u as planned metabolic clinic (next visit 10/2023) # HLD # Chronic Small Vessel Ischemia - cont atorvastatin # Hx of Gastric Bypass Patient had Rou-en-Y done in early . Lab monitoring and supplements per metabolic clinic - F/u with metabolic clinic as planned (next visit 10/2023) # Bronchiectasis - albuterol PRN #RHM - C-scope: normal in 2017. No further scopes d/t aging out - AAA: 2016 normal - Eligible for flu shot and bivalent booster RTC 6m Future Appointments: NOV 06, 2023@10:00 Clinic: [facility] 1P-100A NOV 07, 2023@09:30 Clinic: [facility] NOV 07, 2023@10:30 Clinic: [facility] Patient staffed with Dr. Keagan Yeung MD Internal Medicine/Dermatology PGY-3 --2077 Education on Treatment Plan: Patient indicates readiness [...] medicines under the med tab as appropriate. Medication Reconciliation: Education Evaluations *Was medication education provided for NEW medications or CHANGES to medications? (including medication name, dose, route, reason for use, and potential side effects). Yes. Verbal education was provided to patient/caregiver and patient/caregiver verbalized understanding. TERATOGENIC MED & CONTRACEPTION REVIEW (Optional)... ===== MEDICATION RECONCILIATION ===== List Given: An updated medication list was provided to the patient/caregiver. Active and Recently Outpatient Medications (including Supplies): Issue Date Status Last Fill Active Outpatient Medications Refills Expiration 1) APIXABAN 5MG TAB Qty: 180 for 90 days ACTIVE Issu:10-12-22 Sig: TAKE ONE TABLET BY MOUTH EVERY 12 Refills: 0 Last:03-07-24 HOURS TO PREVENT AND/OR TREAT BLOOD Expr:10-13-23 CLOTS 2) ARIPIPRAZOLE 20MG TAB Qty: 90 for 90 ACTIVE Issu:11-23-22 days Sig: TAKE ONE TABLET BY MOUTH Refills: 0 Last:10-03-23 EVERY DAY FOR BIPOLAR DISORDER DOSE Expr:11-24-23 INCREASED 11-23-22 3) CYANOCOBALAMIN 1000MCG TAB Qty: 100 for ACTIVE Issu:11-27-22 90 days Sig: TAKE ONE TABLET BY MOUTH Refills: 1 Last:08-13-23 EVERY DAY Expr:11-28-23 4) FERROUS SULFATE 325MG TAB Qty: 100 for ACTIVE Issu:11-06-22 90 days Sig: TAKE ONE TABLET BY MOUTH Refills: 0 Last:09-19-23 EVERY DAY IRON DEFICIENCY Expr:11-07-23 5) MAGNESIUM OXIDE 400MG TAB Qty: 120 for ACTIVE Issu:06-17-23 60 days Sig: TAKE TWO TABLETS BY Refills: 4 Last:09-09-23 MOUTH EVERY DAY FOR SUPPLEMENTATION Expr:06-17-24 6) METFORMIN HCL 500MG TAB Qty: 60 for 60 ACTIVE Issu:06-12-23 days Sig: TAKE ONE TABLET BY MOUTH Refills: 4 Last:08-02-23 EVERY DAY FOR DIABETES *NOTE:WHOLE Expr:06-12-24 TABLETS 7) MULTIVIT/OPHTH AREDS2/LUTE/ZEAX CAP/TAB ACTIVE Issu:12-27-22 Qty: 120 for 60 days Sig: TAKE 1 Refills: 1 Last:09-19-23 CAP/TAB BY MOUTH TWICE A DAY WITH Expr:12-28-23 MEALS 8) MULTIVITAMIN CAP/TAB Qty: 100 for 90 ACTIVE Issu:10-11-22 days Sig: TAKE 1 TABLET BY MOUTH Refills: 0 Last:09-19-23 EVERY DAY Expr:10-12-23 9) OMEPRAZOLE 40MG EC CAP Qty: 180 for 90 ACTIVE Issu:09-19-23 days Sig: TAKE ONE CAPSULE BY MOUTH Refills: 3 Last:09-20-23 TWICE A DAY ON AN EMPTY STOMACH, AT Expr:09-19-24 LEAST 30 MINUTES PRIOR TO A MEAL TO DECREASE STOMACH ACID 10) SEMAGLUTIDE 0.25MG/0.375ML INJ PEN 3ML ACTIVE Issu:11-07-22 Qty: 1 for 28 days Sig: INJECT 0.5MG Refills: 3 Last:09-16-23 UNDER THE SKIN EVERY WEEK DIABETES AND Expr:11-08-23 WEIGHT LOSS 11) VENLAFAXINE HCL 150MG 24HR SA CAP Qty: ACTIVE Issu:11-23-22 90 for 90 days Sig: TAKE ONE CAPSULE Refills: 1 Last:08-13-23 BY MOUTH EVERY DAY Expr:11-24-23 Issue Date Status Last Fill Pending Outpatient Medications Refills Expiration 1) ACETAMINOPHEN 500MG TAB Qty: 100 Sig: PENDING TAKE ONE TABLET BY MOUTH EVERY 6 HOURS Refills: 0 NEEDED 2) ALBUTEROL 90MCG (CFC-F) 200D ORAL INHL PENDING Qty: 2 Sig: INHALE 2 PUFFS BY Refills: 0 INHALATION FOUR TIMES A DAY NEEDED 3) ATORVASTATIN CALCIUM 10MG TAB Qty: 90 PENDING Sig: TAKE ONE TABLET BY MOUTH AT Refills: 0 BEDTIME 4) LIDOCAINE 5% PATCH Qty: 30 Sig: APPLY PENDING 1 PATCH TOPICALLY EVERY DAY Refills: 0 5) METOPROLOL SUCCINATE 25MG SA TAB Qty: PENDING 270 Sig: TAKE THREE TABLETS BY MOUTH Refills: 0 EVERY DAY FOR HEART AND BLOOD PRESSURE Issue Date Status Last Fill Inactive Outpatient Medications Refills Expiration 1) ACCU-CHEK GUIDE (GLUCOSE) TEST STRIP Issu:09-20-22 Qty: 100 for 90 days Sig: USE 1 STRIP Refills: 2 Last:07-09-23 EVERY DAY TO CHECK BLOOD SUGAR--USE Expr:09-21-23 WITHIN 3 MINUTES OF REMOVING FROM CONTAINER 2) ACETAMINOPHEN 500MG TAB Qty: 100 for 25 Issu:08-15-22 days Sig: TAKE ONE TABLET BY MOUTH Refills: 1 Last:04-09-23 EVERY 6 HOURS NEEDED FOR PAIN Expr:08-16-23 3) AMOXICILLIN 875/CLAV K 125MG TAB Qty: Issu:08-21-23 14 for 7 days Sig: TAKE 1 TABLET BY Refills: 0 Last:08-21-23 MOUTH TWICE A DAY FOR URINARY TRACT Expr:09-20-23 INFECTION 4) ATORVASTATIN CALCIUM 10MG TAB Qty: 90 Issu:09-20-22 for 90 days Sig: TAKE ONE TABLET BY Refills: 0 Last:07-10-23 MOUTH AT BEDTIME Expr:09-21-23 5) ATORVASTATIN CALCIUM 20MG TAB Qty: 45 DISCONTINUED Issu:09-20-22 for 90 days Sig: TAKE ONE-HALF TABLET (EDIT) Last:09-21-22 BY MOUTH AT BEDTIME Refills: 3 Expr:09-21-23 6) BUPROPION HCL 150MG 24HR SA TAB Qty: 90 DISCONTINUED Issu:11-23-22 for 90 days Sig: TAKE ONE TABLET BY Refills: 1 Last:08-13-23 MOUTH EVERY MORNING Expr:11-24-23 7) CALCIUM 200MG (CA CITRATE-950MG) TAB Issu:09-11-22 Qty: 400 for 90 days Sig: TAKE TWO Refills: 0 Last:06-19-23 TABLETS BY MOUTH TWICE A DAY FOR Expr:09-12-23 CALCIUM SUPPLEMENT 8) CHOLECALCIF 25MCG (D3-1,000UNIT) TAB Issu:09-20-22 Qty: 100 for 90 days Sig: TAKE ONE Refills: 0 Last:08-13-23 TABLET BY MOUTH EVERY DAY Expr:09-21-23 9) LIDOCAINE 5% PATCH Qty: 30 for 30 days Issu:08-15-22 Sig: APPLY 1 PATCH TOPICALLY EVERY DAY Refills: 1 Last:08-04-23 FOR PAIN Expr:08-16-23 10) MAGNESIUM OXIDE 400MG TAB Qty: 240 for DISCONTINUED Issu:07-11-22 90 days Sig: TAKE TWO TABLETS BY Refills: 0 Last:05-02-23 MOUTH EVERY DAY FOR SUPPLEMENTATION Expr:07-12-23 11) METOPROLOL SUCCINATE 50MG SA TAB Qty: DISCONTINUED Issu:10-26-22 90 for 90 days Sig: TAKE ONE TABLET (EDIT) Last:08-17-23 BY MOUTH EVERY DAY FOR HEART AND BLOOD Refills: 0 Expr:10-27-23 PRESSURE 12) OMEPRAZOLE 20MG EC CAP Qty: 270 for 90 DISCONTINUED Issu:07-11-22 days Sig: TAKE ONE CAPSULE BY MOUTH Refills: 0 Last:06-12-23 EVERY MORNING AND TAKE TWO CAPSULES Expr:07-12-23 EVERY EVENING ON AN EMPTY STOMACH, AT LEAST 30 MINUTES PRIOR TO A MEAL FOR REFRACTORY GERD 13) SEMAGLUTIDE 0.25MG/0.375ML INJ PEN 3ML DISCONTINUED Issu:11-07-22 Qty: 1 for 42 days Sig: INJECT 0.25MG Refills: 11 Last:11-12-22 UNDER THE SKIN EVERY WEEK FOR 4 WEEKS, Expr:11-08-23 THEN INJECT 0.5MG EVERY WEEK DIABETES AND WEIGHT LOSS 29 Total Medications /es/ TUAN YEUNG MD RESIDENT PHYSICIAN Signed: 10/09/2023 15:09 10/09/2023 ADDENDUM STATUS: COMPLETED FYI to psychiatry Dr. 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 Referred to neurology but would likely also benefit from changes to antipsychotics if those are possible. Thank you! Tuan Yeung MD Internal Medicine/Dermatology PGY-3 --3218 /pablo/ TUAN YEUNG MD RESIDENT PHYSICIAN Signed: 10/09/2023 15:12 Receipt Acknowledged By: 10/09/2023 16:09 /pablo/ LORETA ORTEGA DO STAFF PSYCHIATRIST 10/09/2023 ADDENDUM STATUS: COMPLETED FYI to orthopedics Dr. Figueroa: patient was to be scheduled for MARK, appears to have been lost to f/u. Greatly appreciate any help your office can provide. Tuan Yeung MD Internal Medicine/Dermatology PGY-3 --3218 /pablo/ TUAN YEUNG MD RESIDENT PHYSICIAN Signed: 10/09/2023 15:17 Receipt Acknowledged By: 10/13/2023 22:17 /aneesh FIGUEROA MD STAFF SURGEON 10/13/2023 ADDENDUM STATUS: COMPLETED please schedule at any at [facility], [facility], [facility] within 30 days for re-evaluation for possible right hip arthroplasty. /aneesh FIGUEROA MD STAFF SURGEON Signed: 10/13/2023 22:21 Receipt Acknowledged By: 10/14/2023 12:06 /MARIUSZ Evans MSA [facility] Oct 13, 2023 10:20 PM ADDENDUM: LOCAL TITLE: Addendum STANDARD TITLE: ADDENDUM DATE OF NOTE: OCT 13, 2023@22:20:10 ENTRY DATE: OCT 13, 2023@22:20:11 AUTHOR: PATITO FIGUEROA COSIGNER: URGENCY: STATUS: COMPLETED please schedule at any at [facility] [employer], [facility] within 30 days for re-evaluation for possible right hip arthroplasty. 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 HPI/ROS: 77M following up for annual. Last seen in our clinic 07/2022 Dr. Mondragon with f/u in 1y. Metabolic clinic started semaglutide for him, decreased his glargine, continued metformin. His DEXA showed normal bone density. Seen by ortho for OA, received injections in both knees and rec [facility] for R hip. Appears to be lost to their f/u as he never called to schedule his next visit as they requested. Was seen in ED in interim 07/2023 for repeated falls, thought to be mechanical in nature, CT H/N was negative for acute issues. Equivocal UA, though was given abx as he was felt to be symptomatic. Home safety evaluation and PT/OT set up after that visit. Notes also indicate he had been more sleepy during the daytime and confused than his baseline, with possible subsequent return to his baseline after abx course. He continued to have falls, however, (at least two in September, one leading to injury on his chin requiring stitches per available notes). He has an order for home PT and they will start services during the week of 10/20 d/t staff availability. As relates to his falls - One of the falls was getting on the bus with his groceries and states he was on slippery ground and his feet came out from under him. Another was when he was getting out of bed - doesn't have carpet or rugs, has a mattress and boxspring directly on the floor without a frame, has refused to use a bedframe or use a hospital bed d/t concerns about falling out of bed. Thinks he tripped on something but is not sure what. The most recent was standing from the couch, when he stood up and tried to walk he felt like his feet didn't come with me and he fell straight forward and felt powerless to stop himself. He notes he's had a more difficult time walking lately because he keeps losing his balance, not because he's dizzy or lightheaded but just because he feels like he tips over. Thinks he might be weak but also feels like his feet don't move as well as they used to, he has a lot of difficulty especially with turns/stopping/starting. Does endorse feeling lightheaded occasionally when standing up fast but this is not a regular occurrence and was not associated with any of his falls. Endorses SOB with activity but not chest pain and none related to his falls. He was referred to [facility] at last visit, where eval showed mild deficits with no need for specific dysphagia diet. However, they did recommend possible consult to Neurology given hypophonia and tongue shaking seen during swallowing and at rest during CN exam if not consistent with tardive dyskinesia. Seen by psychiatry 09/2023, dx major Major Neurocognitive Disorder, multifactoral etiology (vascular , bipolar disorder, h/o delirium, sleep dysfunction), psychosis, and BPD. Has VH/delusions that are fixed and not causing significant impairment. Bupropion d/c'd at that visit. Exam at that time was not felt to be c/w tardive dyskinesia. 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 He has a court appointed guardian as below. Name of guardian: [employer] [facility], Flor Diaz, Elaina Verdugo and/or Jj Lassiter Contact information for guardian: [address] [place] [address] Office: [phone] Past medical history/Active Problems: Active problems - Computerized Problem List is the source for the followin. Essential hypertension (SNOMED CT 38360330) 2. Major depressive disorder (SNOMED CT 302888780) 3. Generalized anxiety disorder (SNOMED CT 92527731) 4. Primary Obesity 5. Bronchiectasis (SNOMED CT 73061655) 6. Gastroesophageal reflux disease (SNOMED CT 796808853) 7. Bariatric Surgery Status 8. Cataracts (SNOMED CT 26925253) 9. Hypermetropia/Hyperopia 10. Astigmatism, Unspec 11. Presbyopia 12. Atrial fibrillation (SNOMED CT 57248407) 13. Varicose veins of lower extremity 14. Compulsive gambling 15. Bipolar disorder (SNOMED CT 52070109) 16. Mild cognitive disorder 17. Type 2 diabetes mellitus 18. Long-term current use of anticoagulant 19. Gastritis 20. Dementia Allergies: SULFAMETHOXAZOLE (Feb 07, 2022) EMPAGLIFLOZIN (Jun 06, 2022) EXAM: VS: Temperature: 97.4 F [36.3 C] (08/21/2023 12:02) Blood Pressure: 117/78 (10/09/2023 09:43) Pulse: 112-122, measured manually during clinic at intervals Respiration: 16 (10/09/2023 09:43) Pain: 0 (10/09/2023 09:43) General: sitting comfortably, NAD HEENT: NCAT, PERRL, EOMI, MMM Lungs: bibasilar insp crackles otherwise CTAB, no W/R/R CV: irregularly irregular and tachycardic, no M/G/R, no JVD Abdomen: BS+, S/NT/ND, no masses Extremities: WWP, 2+ pitting edema b/l LE, pulses 2+ and symmetric b/l Neuro: Shuffling gait, hypophonia, fine resting tremor most notable in jaw> hands. Strength 5/5 in UE and LE. CN II-XII grossly intact Psych: Calm, cooperative, appropriate Data/Labs: Today's Labs: GLUCOSE: 151 H UREA NITROGEN: 22 CREATININE: 1.1 SODIUM: 141 POTASSIUM: 3.8 CHLORIDE: 104 CO2: 29 CALCIUM: 9.3 MAGNESIUM: 1.4 L ANION GAP: 8 CREATININE EGFR (CKD-EPI): 70 HGB A1C: 6.4 H WBC: 7.18 RBC: 3.94 L HGB: 11.7 L HCT: 36.0 L MCV: 91.4 MCH: 29.7 MCHC: 32.5 RDW: 14.3 PLT: 266 MPV: 9.7 Assessment and Plan: # C/f drug-induced parkinsonism Presenting today with hypophonia, fine resting tremor (of jaw more than hands, and also reportedly of tongue per [employer] exam), shuffling gait, increasing difficulty with turns/stopping/starting, recent hx of feet getting stuck causing him to fall over. Long hx of antipsychotic Rx. I suspect this is the most significant cause of his recent falls given his description of the events surrounding them and his grossly intact strength on exam. It's not clear to me that his antipsychotic regimen could be safely modified significantly, and he may require symptom management with additional pharmacotherapy. - Referral to neurology - Co-sign psychiatry as FYI, consider modification of antipsychotics as able # Deconditioning # Falls - Home PT to start this month # A Fib (CHADVASC 5) with RVR # HTN - controlled BP today controlled, HR above goal (110s-120s) though without hypotension or symptomatic palpitations. His hx worsening LE edema and basilar crackles on exam leaves some c/f tachycardia-mediated acute HF (last echo 2018 was unremarkable). Will increase metoprolol slightly as better rate control would be helpful overall and doubt hypotension is contributing significantly to his falls. Will get CXR and echo to w/u possible HF (possibly tachycardia-mediated CM). - Incr metoprolol to 75 mg QD - Cont apixaban via anticoag clinic - TTE and CXR ordered - Will consider referral to cardiology in future pending echo or for consideration of rhythm control vs ablation # OA Affected: hips, knees. Following with [facility], planning for R hip [facility]. - APAP PRN - Lidocaine QDay - Voltaren gel PRN - PT - F/u ortho, co-signed for scheduling purposes as he appears to be lost to followup # Overweight Previously obese, has lost 35 lbs on purpose in the past year. Follows w/metabolic clinic, on semaglutide. - F/u metabolic clinic as planned # Normocytic anemia Stable. Mulifactorial (vitamin deficiencies d/t gastric bypass + ACD). - Supplements and f/u as planned per metabolic clinic (next visit 10/2023) # Bipolar II # STEPHANIE # Major Neurocognitive Disorder, multifactoral etiology (vascular , bipolar disorder, h/o delirium, sleep dysfunction) # Sleep dysfunction # Psychosis Follows with Dr. Delvalle with . No SI/HI. Feels this is well controlled currently. - cont psych meds per # DMII A1c today 6.4 from 6.5. Metabolic clinic following. Stopped insulin around 07/2023 as he ran out of supplies and wasn't re-ordered, but his A1c is low enough today that he should be off insulin anyway. - Diabetic Nephropathy: wnl 2022, repeat U alb/cr next visit - Diabetic Neuropathy/Foot Exam: complete at next visit - Diabetic Retinopathy: reminded to call eye clinic for appt - Cont metformin 500 mg QD - Cont semaglutide 0.5 mg QW - F/u as planned metabolic clinic (next visit 10/2023) # HLD # Chronic Small Vessel Ischemia - cont atorvastatin # Hx of Gastric Bypass Patient had Rou-en-Y done in early . Lab monitoring and supplements per metabolic clinic - F/u with metabolic clinic as planned (next visit 10/2023) # Bronchiectasis - albuterol PRN #RHM - C-scope: normal in 2016. No further scopes d/t aging out - AAA: 2016 normal - Eligible for flu shot and bivalent booster RTC 6m Future Appointments: NOV 06, 2023@10:00 Clinic: [facility] 1P-100A NOV 07, 2023@09:30 Clinic: [facility] LAB NOV 07, 2023@10:30 Clinic: [facility] [address] Keagan Yeung MD Internal Medicine/Dermatology PGY-3 --3012 Education on Treatment Plan: Patient indicates readiness [...] medicines under the med tab as appropriate. Medication Reconciliation: Education Evaluations *Was medication education provided for NEW medications or CHANGES to medications? (including medication name, dose, route, reason for use, and potential side effects). Yes. Verbal education was provided to patient/caregiver and patient/caregiver verbalized understanding. TERATOGENIC MED & CONTRACEPTION REVIEW (Optional)... ===== MEDICATION RECONCILIATION ===== List Given: An updated medication list was provided to the patient/caregiver. Active and Recently Outpatient Medications (including Supplies): Issue Date Status Last Fill Active Outpatient Medications Refills Expiration 1) APIXABAN 5MG TAB Qty: 180 for 90 days ACTIVE Issu:10-12-22 Sig: TAKE ONE TABLET BY MOUTH EVERY 12 Refills: 0 Last:10-03-23 HOURS TO PREVENT AND/OR TREAT BLOOD Expr:10-13-23 CLOTS 2) ARIPIPRAZOLE 20MG TAB Qty: 90 for 90 ACTIVE Issu:11-23-22 days Sig: TAKE ONE TABLET BY MOUTH Refills: 0 Last:10-03-23 EVERY DAY FOR BIPOLAR DISORDER DOSE Expr:11-24-23 INCREASED 11-23-22 3) CYANOCOBALAMIN 1000MCG TAB Qty: 100 for ACTIVE Issu:11-27-22 90 days Sig: TAKE ONE TABLET BY MOUTH Refills: 1 Last:08-13-23 EVERY DAY Expr:11-28-23 4) FERROUS SULFATE 325MG TAB Qty: 100 for ACTIVE Issu:11-06-22 90 days Sig: TAKE ONE TABLET BY MOUTH Refills: 0 Last:09-19-23 EVERY DAY IRON DEFICIENCY Expr:11-07-23 5) MAGNESIUM OXIDE 400MG TAB Qty: 120 for ACTIVE Issu:06-17-23 60 days Sig: TAKE TWO TABLETS BY Refills: 4 Last:09-09-23 MOUTH EVERY DAY FOR SUPPLEMENTATION Expr:06-17-24 6) METFORMIN HCL 500MG TAB Qty: 60 for 60 ACTIVE Issu:06-12-23 days Sig: TAKE ONE TABLET BY MOUTH Refills: 4 Last:08-02-23 EVERY DAY FOR DIABETES *NOTE:WHOLE Expr:06-12-24 TABLETS 7) MULTIVIT/OPHTH AREDS2/LUTE/ZEAX CAP/TAB ACTIVE Issu:12-27-22 Qty: 120 for 60 days Sig: TAKE 1 Refills: 1 Last:09-19-23 CAP/TAB BY MOUTH TWICE A DAY WITH Expr:12-28-23 MEALS 8) MULTIVITAMIN CAP/TAB Qty: 100 for 90 ACTIVE Issu:10-11-22 days Sig: TAKE 1 TABLET BY MOUTH Refills: 0 Last:09-19-23 EVERY DAY Expr:10-12-23 9) OMEPRAZOLE 40MG EC CAP Qty: 180 for 90 ACTIVE Issu:09-19-23 days Sig: TAKE ONE CAPSULE BY MOUTH Refills: 3 Last:09-20-23 TWICE A DAY ON AN EMPTY STOMACH, AT Expr:09-19-24 LEAST 30 MINUTES PRIOR TO A MEAL TO DECREASE STOMACH ACID 10) SEMAGLUTIDE 0.25MG/0.375ML INJ PEN 3ML ACTIVE Issu:11-07-22 Qty: 1 for 28 days Sig: INJECT 0.5MG Refills: 3 Last:09-16-23 UNDER THE SKIN EVERY WEEK DIABETES AND Expr:11-08-23 WEIGHT LOSS 11) VENLAFAXINE HCL 150MG 24HR SA CAP Qty: ACTIVE Issu:11-23-22 90 for 90 days Sig: TAKE ONE CAPSULE Refills: 1 Last:08-13-23 BY MOUTH EVERY DAY Expr:11-24-23 Issue Date Status Last Fill Pending Outpatient Medications Refills Expiration 1) ACETAMINOPHEN 500MG TAB Qty: 100 Sig: PENDING TAKE ONE TABLET BY MOUTH EVERY 6 HOURS Refills: 0 NEEDED 2) ALBUTEROL 90MCG (CFC-F) 200D ORAL INHL PENDING Qty: 2 Sig: INHALE 2 PUFFS BY Refills: 0 INHALATION FOUR TIMES A DAY NEEDED 3) ATORVASTATIN CALCIUM 10MG TAB Qty: 90 PENDING Sig: TAKE ONE TABLET BY MOUTH AT Refills: 0 BEDTIME 4) LIDOCAINE 5% PATCH Qty: 30 Sig: APPLY PENDING 1 PATCH TOPICALLY EVERY DAY Refills: 0 5) METOPROLOL SUCCINATE 25MG SA TAB Qty: PENDING 270 Sig: TAKE THREE TABLETS BY MOUTH Refills: 0 EVERY DAY FOR HEART AND BLOOD PRESSURE Issue Date Status Last Fill Inactive Outpatient Medications Refills Expiration 1) ACCU-CHEK GUIDE (GLUCOSE) TEST STRIP Issu:09-20-22 Qty: 100 for 90 days Sig: USE 1 STRIP Refills: 2 Last:07-09-23 EVERY DAY TO CHECK BLOOD SUGAR--USE Expr:09-21-23 WITHIN 3 MINUTES OF REMOVING FROM CONTAINER 2) ACETAMINOPHEN 500MG TAB Qty: 100 for 25 Issu:08-15-22 days Sig: TAKE ONE TABLET BY MOUTH Refills: 1 Last:04-09-23 EVERY 6 HOURS NEEDED FOR PAIN Expr:08-16-23 3) AMOXICILLIN 875/CLAV K 125MG TAB Qty: Issu:08-21-23 14 for 7 days Sig: TAKE 1 TABLET BY Refills: 0 Last:08-21-23 MOUTH TWICE A DAY FOR URINARY TRACT Expr:09-20-23 INFECTION 4) ATORVASTATIN CALCIUM 10MG TAB Qty: 90 Issu:09-20-22 for 90 days Sig: TAKE ONE TABLET BY Refills: 0 Last:07-10-23 MOUTH AT BEDTIME Expr:09-21-23 5) ATORVASTATIN CALCIUM 20MG TAB Qty: 45 DISCONTINUED Issu:09-20-22 for 90 days Sig: TAKE ONE-HALF TABLET (EDIT) Last:09-21-22 BY MOUTH AT BEDTIME Refills: 3 Expr:09-21-23 6) BUPROPION HCL 150MG 24HR SA TAB Qty: 90 DISCONTINUED Issu:11-23-22 for 90 days Sig: TAKE ONE TABLET BY Refills: 1 Last:08-13-23 MOUTH EVERY MORNING Expr:11-24-23 7) CALCIUM 200MG (CA CITRATE-950MG) TAB Issu:09-11-22 Qty: 400 for 90 days Sig: TAKE TWO Refills: 0 Last:06-19-23 TABLETS BY MOUTH TWICE A DAY FOR Expr:09-12-23 CALCIUM SUPPLEMENT 8) CHOLECALCIF 25MCG (D3-1,000UNIT) TAB Issu:09-20-22 Qty: 100 for 90 days Sig: TAKE ONE Refills: 0 Last:08-13-23 TABLET BY MOUTH EVERY DAY Expr:09-21-23 9) LIDOCAINE 5% PATCH Qty: 30 for 30 days Issu:08-15-22 Sig: APPLY 1 PATCH TOPICALLY EVERY DAY Refills: 1 Last:08-04-23 FOR PAIN Expr:08-16-23 10) MAGNESIUM OXIDE 400MG TAB Qty: 240 for DISCONTINUED Issu:07-11-22 90 days Sig: TAKE TWO TABLETS BY Refills: 0 Last:05-02-23 MOUTH EVERY DAY FOR SUPPLEMENTATION Expr:07-12-23 11) METOPROLOL SUCCINATE 50MG SA TAB Qty: DISCONTINUED Issu:10-26-22 90 for 90 days Sig: TAKE ONE TABLET (EDIT) Last:08-17-23 BY MOUTH EVERY DAY FOR HEART AND BLOOD Refills: 0 Expr:10-27-23 PRESSURE 12) OMEPRAZOLE 20MG EC CAP Qty: 270 for 90 DISCONTINUED Issu:07-11-22 days Sig: TAKE ONE CAPSULE BY MOUTH Refills: 0 Last:06-12-23 EVERY MORNING AND TAKE TWO CAPSULES Expr:07-12-23 EVERY EVENING ON AN EMPTY STOMACH, AT LEAST 30 MINUTES PRIOR TO A MEAL FOR REFRACTORY GERD 13) SEMAGLUTIDE 0.25MG/0.375ML INJ PEN 3ML DISCONTINUED Issu:11-07-22 Qty: 1 for 42 days Sig: INJECT 0.25MG Refills: 11 Last:11-12-22 UNDER THE SKIN EVERY WEEK FOR 4 WEEKS, Expr:11-08-23 THEN INJECT 0.5MG EVERY WEEK DIABETES AND WEIGHT LOSS 29 Total Medications /es/ TUAN YEUNG MD RESIDENT PHYSICIAN Signed: 10/09/2023 15:09 10/09/2023 ADDENDUM STATUS: COMPLETED FYI to psychiatry Dr. 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 Referred to neurology but would likely also benefit from changes to antipsychotics if those are possible. Thank you! Tuan Yeung MD Internal Medicine/Dermatology PGY-3 --3196 /es/ TUAN YEUNG MD RESIDENT PHYSICIAN Signed: 10/09/2023 15:12 Receipt Acknowledged By: 10/09/2023 16:09 /es/ LORETA ORTEGA DO STAFF PSYCHIATRIST 10/09/2023 ADDENDUM STATUS: COMPLETED FYI to orthopedics Dr. Figueroa: patient was to be scheduled for MARK, appears to have been lost to f/u. Greatly appreciate any help your office can provide. Tuan Yeung MD Internal Medicine/Dermatology PGY-3 --3218 /pablo/ TUAN YEUNG MD RESIDENT PHYSICIAN Signed: 10/09/2023 15:17 Receipt Acknowledged By: 10/13/2023 22:17 /es/ PATITO FIGUEROA MD STAFF SURGEON PATITO FIGUEROA [facility] Oct 09, 2023 03:13 PM ADDENDUM: LOCAL TITLE: Addendum STANDARD TITLE: ADDENDUM DATE OF NOTE: OCT 09, 2023@15:13:47 ENTRY DATE: OCT 09, 2023@15:13:48 AUTHOR: TUAN YEUNG COSIGNER: URGENCY: STATUS: COMPLETED FYI to orthopedics Dr. Figueroa: patient was to be scheduled for MARK, appears to have been lost to f/u. Greatly appreciate any help your office can provide. 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 HPI/ROS: 77M following up for annual. Last seen in our clinic 07/2022 Dr. Mondragon with f/u in 1y. Metabolic clinic started semaglutide for him, decreased his glargine, continued metformin. His DEXA showed normal bone density. Seen by ortho for OA, received injections in both knees and rec [facility] for R hip. Appears to be lost to their f/u as he never called to schedule his next visit as they requested. Was seen in ED in interim 07/2023 for repeated falls, thought to be mechanical in nature, CT H/N was negative for acute issues. Equivocal UA, though was given abx as he was felt to be symptomatic. Home safety evaluation and PT/OT set up after that visit. Notes also indicate he had been more sleepy during the daytime and confused than his baseline, with possible subsequent return to his baseline after abx course. He continued to have falls, however, (at least two in September, one leading to injury on his chin requiring stitches per available notes). He has an order for home PT and they will start services during the week of 10/20 d/t staff availability. As relates to his falls - One of the falls was getting on the bus with his groceries and states he was on slippery ground and his feet came out from under him. Another was when he was getting out of bed - doesn't have carpet or rugs, has a mattress and boxspring directly on the floor without a frame, has refused to use a bedframe or use a hospital bed d/t concerns about falling out of bed. Thinks he tripped on something but is not sure what. The most recent was standing from the couch, when he stood up and tried to walk he felt like his feet didn't come with me and he fell straight forward and felt powerless to stop himself. He notes he's had a more difficult time walking lately because he keeps losing his balance, not because he's dizzy or lightheaded but just because he feels like he tips over. Thinks he might be weak but also feels like his feet don't move as well as they used to, he has a lot of difficulty especially with turns/stopping/starting. Does endorse feeling lightheaded occasionally when standing up fast but this is not a regular occurrence and was not associated with any of his falls. Endorses SOB with activity but not chest pain and none related to his falls. He was referred to [employer] [facility] at last visit, where fidencio showed mild deficits with no need for specific dysphagia diet. However, they did recommend possible consult to Neurology given hypophonia and tongue shaking seen during swallowing and at rest during CN exam if not consistent with tardive dyskinesia. Seen by psychiatry 09/2023, dx major Major Neurocognitive Disorder, multifactoral etiology (vascular , bipolar disorder, h/o delirium, sleep dysfunction), psychosis, and BPD. Has VH/delusions that are fixed and not causing significant impairment. Bupropion d/c'd at that visit. Exam at that time was not felt to be c/w tardive dyskinesia. 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 He has a court appointed guardian as below. Name of guardian: [employer] [facility], Flor Diaz, Elaina Verdugo and/or Jj Lassiter Contact information for guardian: [address] [place] [address] Office: [phone] Past medical history/Active Problems: Active problems - Computerized Problem List is the source for the followin. Essential hypertension (SNOMED CT 96360390) 2. Major depressive disorder (SNOMED CT 798210434) 3. Generalized anxiety disorder (SNOMED CT 53700442) 4. Primary Obesity 5. Bronchiectasis (SNOMED CT 15735476) 6. Gastroesophageal reflux disease (SNOMED CT 616508015) 7. Bariatric Surgery Status 8. Cataracts (SNOMED CT 40043900) 9. Hypermetropia/Hyperopia 10. Astigmatism, Unspec 11. Presbyopia 12. Atrial fibrillation (SNOMED CT 36323646) 13. Varicose veins of lower extremity 14. Compulsive gambling 15. Bipolar disorder (SNOMED CT 87382531) 16. Mild cognitive disorder 17. Type 2 diabetes mellitus 18. Long-term current use of anticoagulant 19. Gastritis 20. Dementia Allergies: SULFAMETHOXAZOLE (Feb 07, 2022) EMPAGLIFLOZIN (Jun 06, 2022) EXAM: VS: Temperature: 97.4 F [36.3 C] (08/21/2023 12:02) Blood Pressure: 117/78 (10/09/2023 09:43) Pulse: 112-122, measured manually during clinic at intervals Respiration: 16 (10/09/2023 09:43) Pain: 0 (10/09/2023 09:43) General: sitting comfortably, NAD HEENT: NCAT, PERRL, EOMI, MMM Lungs: bibasilar insp crackles otherwise CTAB, no W/R/R CV: irregularly irregular and tachycardic, no M/G/R, no JVD Abdomen: BS+, S/NT/ND, no masses Extremities: WWP, 2+ pitting edema b/l LE, pulses 2+ and symmetric b/l Neuro: Shuffling gait, hypophonia, fine resting tremor most notable in jaw> hands. Strength 5/5 in UE and LE. CN II-XII grossly intact Psych: Calm, cooperative, appropriate Data/Labs: Today's Labs: GLUCOSE: 151 H UREA NITROGEN: 22 CREATININE: 1.1 SODIUM: 141 POTASSIUM: 3.8 CHLORIDE: 104 CO2: 29 CALCIUM: 9.3 MAGNESIUM: 1.4 L ANION GAP: 8 CREATININE EGFR (CKD-EPI): 70 HGB A1C: 6.4 H WBC: 7.18 RBC: 3.94 L HGB: 11.7 L HCT: 36.0 L MCV: 91.4 MCH: 29.7 MCHC: 32.5 RDW: 14.3 PLT: 266 MPV: 9.7 Assessment and Plan: # C/f drug-induced parkinsonism Presenting today with hypophonia, fine resting tremor (of jaw more than hands, and also reportedly of tongue per [employer] exam), shuffling gait, increasing difficulty with turns/stopping/starting, recent hx of feet getting stuck causing him to fall over. Long hx of antipsychotic Rx. I suspect this is the most significant cause of his recent falls given his description of the events surrounding them and his grossly intact strength on exam. It's not clear to me that his antipsychotic regimen could be safely modified significantly, and he may require symptom management with additional pharmacotherapy. - Referral to neurology - Co-sign psychiatry as FYI, consider modification of antipsychotics as able # Deconditioning # Falls - Home PT to start this month # A Fib (CHADVASC 5) with RVR # HTN - controlled BP today controlled, HR above goal (110s-120s) though without hypotension or symptomatic palpitations. His hx worsening LE edema and basilar crackles on exam leaves some c/f tachycardia-mediated acute HF (last echo 2017 was unremarkable). Will increase metoprolol slightly as better rate control would be helpful overall and doubt hypotension is contributing significantly to his falls. Will get CXR and echo to w/u possible HF (possibly tachycardia-mediated CM). - Incr metoprolol to 75 mg QD - Cont apixaban via anticoag clinic - TTE and CXR ordered - Will consider referral to cardiology in future pending echo or for consideration of rhythm control vs ablation # OA Affected: hips, knees. [facility] for R hip MARK. - APAP PRN - Lidocaine QDay - Voltaren gel PRN - PT - F/u ortho, co-signed for scheduling purposes as he appears to be lost to followup # Overweight Previously obese, has lost 35 lbs on purpose in the past year. Follows w/metabolic clinic, on semaglutide. - F/u metabolic clinic as planned # Normocytic anemia Stable. Mulifactorial (vitamin deficiencies d/t gastric bypass + ACD). - Supplements and f/u as planned per metabolic clinic (next visit 10/2023) # Bipolar II # STEPHANIE # Major Neurocognitive Disorder, multifactoral etiology (vascular , bipolar disorder, h/o delirium, sleep dysfunction) # Sleep dysfunction # Psychosis Follows with Dr. Delvalle with . No SI/HI. Feels this is well controlled currently. - cont psych meds per # DMII A1c today 6.4 from 6.5. Metabolic clinic following. Stopped insulin around 07/2023 as he ran out of supplies and wasn't re-ordered, but his A1c is low enough today that he should be off insulin anyway. - Diabetic Nephropathy: wnl 2022, repeat U alb/cr next visit - Diabetic Neuropathy/Foot Exam: complete at next visit - Diabetic Retinopathy: reminded to call eye clinic for appt - Cont metformin 500 mg QD - Cont semaglutide 0.5 mg QW - F/u as planned metabolic clinic (next visit 10/2023) # HLD # Chronic Small Vessel Ischemia - cont atorvastatin # Hx of Gastric Bypass Patient had Rou-en-Y done in early 2000s. Lab monitoring and supplements per metabolic clinic - F/u with metabolic clinic as planned (next visit 10/2023) # Bronchiectasis - albuterol PRN #RHM - C-scope: normal in 2017. No further scopes d/t aging out - AAA: 2015 normal - Eligible for flu shot and bivalent booster RTC 6m Future Appointments: NOV 06, 2023@10:00 Clinic: [facility] 1P-100A NOV 07, 2023@09:30 Clinic: [facility] 79 LAB NOV 07, 2023@10:30 Clinic: [facility] [address] Keagan Yeung MD Internal Medicine/Dermatology PGY-3 --3218 Education on Treatment Plan: Patient indicates [...] medicines under the med tab as appropriate. Medication Reconciliation: Education Evaluations *Was medication education provided for NEW medications or CHANGES to medications? (including medication name, dose, route, reason for use, and potential side effects). Yes. Verbal education was provided to patient/caregiver and patient/caregiver verbalized understanding. TERATOGENIC MED & CONTRACEPTION REVIEW (Optional)... ===== MEDICATION RECONCILIATION ===== List Given: An updated medication list was provided to the patient/caregiver. Active and Recently Outpatient Medications (including Supplies): Issue Date Status Last Fill Active Outpatient Medications Refills Expiration 1) APIXABAN 5MG TAB Qty: 180 for 90 days ACTIVE Issu:10-12-22 Sig: TAKE ONE TABLET BY MOUTH EVERY 12 Refills: 0 Last:10-03-23 HOURS TO PREVENT AND/OR TREAT BLOOD Expr:10-13-23 CLOTS 2) ARIPIPRAZOLE 20MG TAB Qty: 90 for 90 ACTIVE Issu:11-23-22 days Sig: TAKE ONE TABLET BY MOUTH Refills: 0 Last:10-03-23 EVERY DAY FOR BIPOLAR DISORDER DOSE Expr:11-24-23 INCREASED 11-23-22 3) CYANOCOBALAMIN 1000MCG TAB Qty: 100 for ACTIVE Issu:11-27-22 90 days Sig: TAKE ONE TABLET BY MOUTH Refills: 1 Last:08-13-23 EVERY DAY Expr:11-28-23 4) FERROUS SULFATE 325MG TAB Qty: 100 for ACTIVE Issu:11-06-22 90 days Sig: TAKE ONE TABLET BY MOUTH Refills: 0 Last:09-19-23 EVERY DAY IRON DEFICIENCY Expr:11-07-23 5) MAGNESIUM OXIDE 400MG TAB Qty: 120 for ACTIVE Issu:06-17-23 60 days Sig: TAKE TWO TABLETS BY Refills: 4 Last:09-09-23 MOUTH EVERY DAY FOR SUPPLEMENTATION Expr:06-17-24 6) METFORMIN HCL 500MG TAB Qty: 60 for 60 ACTIVE Issu:06-12-23 days Sig: TAKE ONE TABLET BY MOUTH Refills: 4 Last:08-02-23 EVERY DAY FOR DIABETES *NOTE:WHOLE Expr:06-12-24 TABLETS 7) MULTIVIT/OPHTH AREDS2/LUTE/ZEAX CAP/TAB ACTIVE Issu:12-27-22 Qty: 120 for 60 days Sig: TAKE 1 Refills: 1 Last:09-19-23 CAP/TAB BY MOUTH TWICE A DAY WITH Expr:12-28-23 MEALS 8) MULTIVITAMIN CAP/TAB Qty: 100 for 90 ACTIVE Issu:10-11-22 days Sig: TAKE 1 TABLET BY MOUTH Refills: 0 Last:09-19-23 EVERY DAY Expr:10-12-23 9) OMEPRAZOLE 40MG EC CAP Qty: 180 for 90 ACTIVE Issu:09-19-23 days Sig: TAKE ONE CAPSULE BY MOUTH Refills: 3 Last:09-20-23 TWICE A DAY ON AN EMPTY STOMACH, AT Expr:09-19-24 LEAST 30 MINUTES PRIOR TO A MEAL TO DECREASE STOMACH ACID 10) SEMAGLUTIDE 0.25MG/0.375ML INJ PEN 3ML ACTIVE Issu:11-07-22 Qty: 1 for 28 days Sig: INJECT 0.5MG Refills: 3 Last:09-16-23 UNDER THE SKIN EVERY WEEK DIABETES AND Expr:11-08-23 WEIGHT LOSS 11) VENLAFAXINE HCL 150MG 24HR SA CAP Qty: ACTIVE Issu:11-23-22 90 for 90 days Sig: TAKE ONE CAPSULE Refills: 1 Last:08-13-23 BY MOUTH EVERY DAY Expr:11-24-23 Issue Date Status Last Fill Pending Outpatient Medications Refills Expiration 1) ACETAMINOPHEN 500MG TAB Qty: 100 Sig: PENDING TAKE ONE TABLET BY MOUTH EVERY 6 HOURS Refills: 0 NEEDED 2) ALBUTEROL 90MCG (CFC-F) 200D ORAL INHL PENDING Qty: 2 Sig: INHALE 2 PUFFS BY Refills: 0 INHALATION FOUR TIMES A DAY NEEDED 3) ATORVASTATIN CALCIUM 10MG TAB Qty: 90 PENDING Sig: TAKE ONE TABLET BY MOUTH AT Refills: 0 BEDTIME 4) LIDOCAINE 5% PATCH Qty: 30 Sig: APPLY PENDING 1 PATCH TOPICALLY EVERY DAY Refills: 0 5) METOPROLOL SUCCINATE 25MG SA TAB Qty: PENDING 270 Sig: TAKE THREE TABLETS BY MOUTH Refills: 0 EVERY DAY FOR HEART AND BLOOD PRESSURE Issue Date Status Last Fill Inactive Outpatient Medications Refills Expiration 1) ACCU-CHEK GUIDE (GLUCOSE) TEST STRIP Issu:09-20-22 Qty: 100 for 90 days Sig: USE 1 STRIP Refills: 2 Last:07-09-23 EVERY DAY TO CHECK BLOOD SUGAR--USE Expr:09-21-23 WITHIN 3 MINUTES OF REMOVING FROM CONTAINER 2) ACETAMINOPHEN 500MG TAB Qty: 100 for 25 Issu:08-15-22 days Sig: TAKE ONE TABLET BY MOUTH Refills: 1 Last:04-09-23 EVERY 6 HOURS NEEDED FOR PAIN Expr:08-16-23 3) AMOXICILLIN 875/CLAV K 125MG TAB Qty: Issu:08-21-23 14 for 7 days Sig: TAKE 1 TABLET BY Refills: 0 Last:08-21-23 MOUTH TWICE A DAY FOR URINARY TRACT Expr:09-20-23 INFECTION 4) ATORVASTATIN CALCIUM 10MG TAB Qty: 90 Issu:09-20-22 for 90 days Sig: TAKE ONE TABLET BY Refills: 0 Last:07-10-23 MOUTH AT BEDTIME Expr:09-21-23 5) ATORVASTATIN CALCIUM 20MG TAB Qty: 45 DISCONTINUED Issu:09-20-22 for 90 days Sig: TAKE ONE-HALF TABLET (EDIT) Last:09-21-22 BY MOUTH AT BEDTIME Refills: 3 Expr:09-21-23 6) BUPROPION HCL 150MG 24HR SA TAB Qty: 90 DISCONTINUED Issu:11-23-22 for 90 days Sig: TAKE ONE TABLET BY Refills: 1 Last:08-13-23 MOUTH EVERY MORNING Expr:11-24-23 7) CALCIUM 200MG (CA CITRATE-950MG) TAB Issu:09-11-22 Qty: 400 for 90 days Sig: TAKE TWO Refills: 0 Last:06-19-23 TABLETS BY MOUTH TWICE A DAY FOR Expr:09-12-23 CALCIUM SUPPLEMENT 8) CHOLECALCIF 25MCG (D3-1,000UNIT) TAB Issu:09-20-22 Qty: 100 for 90 days Sig: TAKE ONE Refills: 0 Last:08-13-23 TABLET BY MOUTH EVERY DAY Expr:09-21-23 9) LIDOCAINE 5% PATCH Qty: 30 for 30 days Issu:08-15-22 Sig: APPLY 1 PATCH TOPICALLY EVERY DAY Refills: 1 Last:08-04-23 FOR PAIN Expr:08-16-23 10) MAGNESIUM OXIDE 400MG TAB Qty: 240 for DISCONTINUED Issu:07-11-22 90 days Sig: TAKE TWO TABLETS BY Refills: 0 Last:05-02-23 MOUTH EVERY DAY FOR SUPPLEMENTATION Expr:07-12-23 11) METOPROLOL SUCCINATE 50MG SA TAB Qty: DISCONTINUED Issu:10-26-22 90 for 90 days Sig: TAKE ONE TABLET (EDIT) Last:08-17-23 BY MOUTH EVERY DAY FOR HEART AND BLOOD Refills: 0 Expr:10-27-23 PRESSURE 12) OMEPRAZOLE 20MG EC CAP Qty: 270 for 90 DISCONTINUED Issu:07-11-22 days Sig: TAKE ONE CAPSULE BY MOUTH Refills: 0 Last:06-12-23 EVERY MORNING AND TAKE TWO CAPSULES Expr:07-12-23 EVERY EVENING ON AN EMPTY STOMACH, AT LEAST 30 MINUTES PRIOR TO A MEAL FOR REFRACTORY GERD 13) SEMAGLUTIDE 0.25MG/0.375ML INJ PEN 3ML DISCONTINUED Issu:11-07-22 Qty: 1 for 42 days Sig: INJECT 0.25MG Refills: 11 Last:11-12-22 UNDER THE SKIN EVERY WEEK FOR 4 WEEKS, Expr:11-08-23 THEN INJECT 0.5MG EVERY WEEK DIABETES AND WEIGHT LOSS 29 Total Medications /es/ TUAN YEUNG MD RESIDENT PHYSICIAN Signed: 10/09/2023 15:09 10/09/2023 ADDENDUM STATUS: COMPLETED FYI to psychiatry Dr. 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 Referred to neurology but would likely also benefit from changes to antipsychotics if those are possible. Thank you! Tuan Yeung MD Internal Medicine/Dermatology PGY-3 --3218 /pablo/ TUAN YEUNG MD RESIDENT PHYSICIAN Signed: 10/09/2023 15:12 Receipt Acknowledged By: 10/09/2023 16:09 /aneesh ORTEGA DO STAFF PSYCHIATRIST TUAN YEUNG [facility] Oct 09, 2023 03:10 PM ADDENDUM: LOCAL TITLE: Addendum STANDARD TITLE: ADDENDUM DATE OF NOTE: OCT 09, 2023@15:10:24 ENTRY DATE: OCT 09, 2023@15:10:24 AUTHOR: TUAN YEUNG COSIGNER: URGENCY: STATUS: COMPLETED FYI to psychiatry Dr. 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 Referred to neurology but would likely also benefit from changes to antipsychotics if those are possible. Thank you! 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 HPI/ROS: 77M following up for annual. Last seen in our clinic 07/2022 Dr. Mondragon with f/u in 1y. Metabolic clinic started semaglutide for him, decreased his glargine, continued metformin. His DEXA showed normal bone density. Seen by ortho for OA, received injections in both knees and rec MARK for R hip. Appears to be lost to their f/u as he never called to schedule his next visit as they requested. Was seen in ED in interim 07/2023 for repeated falls, thought to be mechanical in nature, CT H/N was negative for acute issues. Equivocal UA, though was given abx as he was felt to be symptomatic. Home safety evaluation and PT/OT set up after that visit. Notes also indicate he had been more sleepy during the daytime and confused than his baseline, with possible subsequent return to his baseline after abx course. He continued to have falls, however, (at least two in September, one leading to injury on his chin requiring stitches per available notes). He has an order for home PT and they will start services during the week of 10/20 d/t staff availability. As relates to his falls - One of the falls was getting on the bus with his groceries and states he was on slippery ground and his feet came out from under him. Another was when he was getting out of bed - doesn't have carpet or rugs, has a mattress and boxspring directly on the floor without a frame, has refused to use a bedframe or use a hospital bed d/t concerns about falling out of bed. Thinks he tripped on something but is not sure what. The most recent was standing from the couch, when he stood up and tried to walk he felt like his feet didn't come with me and he fell straight forward and felt powerless to stop himself. He notes he's had a more difficult time walking lately because he keeps losing his balance, not because he's dizzy or lightheaded but just because he feels like he tips over. Thinks he might be weak but also feels like his feet don't move as well as they used to, he has a lot of difficulty especially with turns/stopping/starting. Does endorse feeling lightheaded occasionally when standing up fast but this is not a regular occurrence and was not associated with any of his falls. Endorses SOB with activity but not chest pain and none related to his falls. He was referred to [employer] at last visit, where eval showed mild deficits with no need for specific dysphagia diet. However, they did recommend possible consult to Neurology given hypophonia and tongue shaking seen during swallowing and at rest during CN exam if not consistent with tardive dyskinesia. Seen by psychiatry 09/2023, dx major Major Neurocognitive Disorder, multifactoral etiology (vascular , bipolar disorder, h/o delirium, sleep dysfunction), psychosis, and BPD. Has VH/delusions that are fixed and not causing significant impairment. Bupropion d/c'd at that visit. Exam at that time was not felt to be c/w tardive dyskinesia. 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 He has a court appointed guardian as below. Name of guardian: [employer] [facility] Ivette Simms, Flor Diaz, Elaina Verdugo and/or Jj Lassiter Contact information for guardian: [address] [place] [address] Office: [phone] Past medical history/Active Problems: Active problems - Computerized Problem List is the source for the followin. Essential hypertension (SNOMED CT 56093408) 2. Major depressive disorder (SNOMED CT 591435949) 3. Generalized anxiety disorder (SNOMED CT 85070219) 4. Primary Obesity 5. Bronchiectasis (SNOMED CT 89288160) 6. Gastroesophageal reflux disease (SNOMED CT 000248066) 7. Bariatric Surgery Status 8. Cataracts (SNOMED CT 68848350) 9. Hypermetropia/Hyperopia 10. Astigmatism, Unspec 11. Presbyopia 12. Atrial fibrillation (SNOMED CT 62838551) 13. Varicose veins of lower extremity 14. Compulsive gambling 15. Bipolar disorder (SNOMED CT 79328015) 16. Mild cognitive disorder 17. Type 2 diabetes mellitus 18. Long-term current use of anticoagulant 19. Gastritis 20. Dementia Allergies: SULFAMETHOXAZOLE (Feb 07, 2022) EMPAGLIFLOZIN (Jun 06, 2022) EXAM: VS: Temperature: 97.4 F [36.3 C] (08/21/2023 12:02) Blood Pressure: 117/78 (10/09/2023 09:43) Pulse: 112-122, measured manually during clinic at intervals Respiration: 16 (10/09/2023 09:43) Pain: 0 (10/09/2023 09:43) General: sitting comfortably, NAD HEENT: NCAT, PERRL, EOMI, MMM Lungs: bibasilar insp crackles otherwise CTAB, no W/R/R CV: irregularly irregular and tachycardic, no M/G/R, no JVD Abdomen: BS+, S/NT/ND, no masses Extremities: WWP, 2+ pitting edema b/l LE, pulses 2+ and symmetric b/l Neuro: Shuffling gait, hypophonia, fine resting tremor most notable in jaw> hands. Strength 5/5 in UE and LE. CN II-XII grossly intact Psych: Calm, cooperative, appropriate Data/Labs: Today's Labs: GLUCOSE: 151 H UREA NITROGEN: 22 CREATININE: 1.1 SODIUM: 141 POTASSIUM: 3.8 CHLORIDE: 104 CO2: 29 CALCIUM: 9.3 MAGNESIUM: 1.4 L ANION GAP: 8 CREATININE EGFR (CKD-EPI): 70 HGB A1C: 6.4 H WBC: 7.18 RBC: 3.94 L HGB: 11.7 L HCT: 36.0 L MCV: 91.4 MCH: 29.7 MCHC: 32.5 RDW: 14.3 PLT: 266 MPV: 9.7 Assessment and Plan: # C/f drug-induced parkinsonism Presenting today with hypophonia, fine resting tremor (of jaw more than hands, and also reportedly of tongue per [employer] exam), shuffling gait, increasing difficulty with turns/stopping/starting, recent hx of feet getting stuck causing him to fall over. Long hx of antipsychotic Rx. I suspect this is the most significant cause of his recent falls given his description of the events surrounding them and his grossly intact strength on exam. It's not clear to me that his antipsychotic regimen could be safely modified significantly, and he may require symptom management with additional pharmacotherapy. - Referral to neurology - Co-sign psychiatry as FYI, consider modification of antipsychotics as able # Deconditioning # Falls - Home PT to start this month # A Fib (CHADVASC 5) with RVR # HTN - controlled BP today controlled, HR above goal (110s-120s) though without hypotension or symptomatic palpitations. His hx worsening LE edema and basilar crackles on exam leaves some c/f tachycardia-mediated acute HF (last echo 2018 was unremarkable). Will increase metoprolol slightly as better rate control would be helpful overall and doubt hypotension is contributing significantly to his falls. Will get CXR and echo to w/u possible HF (possibly tachycardia-mediated CM). - Incr metoprolol to 75 mg QD - Cont apixaban via anticoag clinic - TTE and CXR ordered - Will consider referral to cardiology in future pending echo or for consideration of rhythm control vs ablation # OA Affected: hips, knees. Following with [facility], planning for R hip MARK. - APAP PRN - Lidocaine QDay - Voltaren gel PRN - PT - F/u ortho, co-signed for scheduling purposes as he appears to be lost to followup # Overweight Previously obese, has lost 35 lbs on purpose in the past year. Follows w/metabolic clinic, on semaglutide. - F/u metabolic clinic as planned # Normocytic anemia Stable. Mulifactorial (vitamin deficiencies d/t gastric bypass + ACD). - Supplements and f/u as planned per metabolic clinic (next visit 10/2023) # Bipolar II # STEPHANIE # Major Neurocognitive Disorder, multifactoral etiology (vascular , bipolar disorder, h/o delirium, sleep dysfunction) # Sleep dysfunction # Psychosis Follows with Dr. Delvalle with . No SI/HI. Feels this is well controlled currently. - cont psych meds per # DMII A1c today 6.4 from 6.5. Metabolic clinic following. Stopped insulin around 07/2023 as he ran out of supplies and wasn't re-ordered, but his A1c is low enough today that he should be off insulin anyway. - Diabetic Nephropathy: wnl 2022, repeat U alb/cr next visit - Diabetic Neuropathy/Foot Exam: complete at next visit - Diabetic Retinopathy: reminded to call eye clinic for appt - Cont metformin 500 mg QD - Cont semaglutide 0.5 mg QW - F/u as planned metabolic clinic (next visit 10/2023) # HLD # Chronic Small Vessel Ischemia - cont atorvastatin # Hx of Gastric Bypass Patient had Rou-en-Y done in early . Lab monitoring and supplements per metabolic clinic - F/u with metabolic clinic as planned (next visit 10/2023) # Bronchiectasis - albuterol PRN #RHM - C-scope: normal in 2017. No further scopes d/t aging out - AAA: 2016 normal - Eligible for flu shot and bivalent booster RTC 6m Future Appointments: NOV 06, 2023@10:00 Clinic: [facility] 1P-100A NOV 07, 2023@09:30 Clinic: [facility] 79 LAB NOV 07, 2023@10:30 Clinic: [facility] ALVARE[facility] [address] Keagan Yeung MD Internal Medicine/Dermatology PGY-3 --3218 Education on Treatment Plan: Patient indicates [...] medicines under the med tab as appropriate. Medication Reconciliation: Education Evaluations *Was medication education provided for NEW medications or CHANGES to medications? (including medication name, dose, route, reason for use, and potential side effects). Yes. Verbal education was provided to patient/caregiver and patient/caregiver verbalized understanding. TERATOGENIC MED & CONTRACEPTION REVIEW (Optional)... ===== MEDICATION RECONCILIATION ===== List Given: An updated medication list was provided to the patient/caregiver. Active and Recently Outpatient Medications (including Supplies): Issue Date Status Last Fill Active Outpatient Medications Refills Expiration 1) APIXABAN 5MG TAB Qty: 180 for 90 days ACTIVE Issu:10-12-22 Sig: TAKE ONE TABLET BY MOUTH EVERY 12 Refills: 0 Last:10-03-23 HOURS TO PREVENT AND/OR TREAT BLOOD Expr:10-13-23 CLOTS 2) ARIPIPRAZOLE 20MG TAB Qty: 90 for 90 ACTIVE Issu:11-23-22 days Sig: TAKE ONE TABLET BY MOUTH Refills: 0 Last:10-03-23 EVERY DAY FOR BIPOLAR DISORDER DOSE Expr:11-24-23 INCREASED 11-23-22 3) CYANOCOBALAMIN 1000MCG TAB Qty: 100 for ACTIVE Issu:11-27-22 90 days Sig: TAKE ONE TABLET BY MOUTH Refills: 1 Last:08-13-23 EVERY DAY Expr:11-28-23 4) FERROUS SULFATE 325MG TAB Qty: 100 for ACTIVE Issu:11-06-22 90 days Sig: TAKE ONE TABLET BY MOUTH Refills: 0 Last:09-19-23 EVERY DAY IRON DEFICIENCY Expr:11-07-23 5) MAGNESIUM OXIDE 400MG TAB Qty: 120 for ACTIVE Issu:06-17-23 60 days Sig: TAKE TWO TABLETS BY Refills: 4 Last:09-09-23 MOUTH EVERY DAY FOR SUPPLEMENTATION Expr:06-17-24 6) METFORMIN HCL 500MG TAB Qty: 60 for 60 ACTIVE Issu:06-12-23 days Sig: TAKE ONE TABLET BY MOUTH Refills: 4 Last:08-02-23 EVERY DAY FOR DIABETES *NOTE:WHOLE Expr:06-12-24 TABLETS 7) MULTIVIT/OPHTH AREDS2/LUTE/ZEAX CAP/TAB ACTIVE Issu:12-27-22 Qty: 120 for 60 days Sig: TAKE 1 Refills: 1 Last:09-19-23 CAP/TAB BY MOUTH TWICE A DAY WITH Expr:12-28-23 MEALS 8) MULTIVITAMIN CAP/TAB Qty: 100 for 90 ACTIVE Issu:10-11-22 days Sig: TAKE 1 TABLET BY MOUTH Refills: 0 Last:09-19-23 EVERY DAY Expr:10-12-23 9) OMEPRAZOLE 40MG EC CAP Qty: 180 for 90 ACTIVE Issu:09-19-23 days Sig: TAKE ONE CAPSULE BY MOUTH Refills: 3 Last:09-20-23 TWICE A DAY ON AN EMPTY STOMACH, AT Expr:09-19-24 LEAST 30 MINUTES PRIOR TO A MEAL TO DECREASE STOMACH ACID 10) SEMAGLUTIDE 0.25MG/0.375ML INJ PEN 3ML ACTIVE Issu:11-07-22 Qty: 1 for 28 days Sig: INJECT 0.5MG Refills: 3 Last:09-16-23 UNDER THE SKIN EVERY WEEK DIABETES AND Expr:11-08-23 WEIGHT LOSS 11) VENLAFAXINE HCL 150MG 24HR SA CAP Qty: ACTIVE Issu:11-23-22 90 for 90 days Sig: TAKE ONE CAPSULE Refills: 1 Last:08-13-23 BY MOUTH EVERY DAY Expr:11-24-23 Issue Date Status Last Fill Pending Outpatient Medications Refills Expiration 1) ACETAMINOPHEN 500MG TAB Qty: 100 Sig: PENDING TAKE ONE TABLET BY MOUTH EVERY 6 HOURS Refills: 0 NEEDED 2) ALBUTEROL 90MCG (CFC-F) 200D ORAL INHL PENDING Qty: 2 Sig: INHALE 2 PUFFS BY Refills: 0 INHALATION FOUR TIMES A DAY NEEDED 3) ATORVASTATIN CALCIUM 10MG TAB Qty: 90 PENDING Sig: TAKE ONE TABLET BY MOUTH AT Refills: 0 BEDTIME 4) LIDOCAINE 5% PATCH Qty: 30 Sig: APPLY PENDING 1 PATCH TOPICALLY EVERY DAY Refills: 0 5) METOPROLOL SUCCINATE 25MG SA TAB Qty: PENDING 270 Sig: TAKE THREE TABLETS BY MOUTH Refills: 0 EVERY DAY FOR HEART AND BLOOD PRESSURE Issue Date Status Last Fill Inactive Outpatient Medications Refills Expiration 1) ACCU-CHEK GUIDE (GLUCOSE) TEST STRIP Issu:09-20-22 Qty: 100 for 90 days Sig: USE 1 STRIP Refills: 2 Last:07-09-23 EVERY DAY TO CHECK BLOOD SUGAR--USE Expr:09-21-23 WITHIN 3 MINUTES OF REMOVING FROM CONTAINER 2) ACETAMINOPHEN 500MG TAB Qty: 100 for 25 Issu:08-15-22 days Sig: TAKE ONE TABLET BY MOUTH Refills: 1 Last:04-09-23 EVERY 6 HOURS NEEDED FOR PAIN Expr:08-16-23 3) AMOXICILLIN 875/CLAV K 125MG TAB Qty: Issu:08-21-23 14 for 7 days Sig: TAKE 1 TABLET BY Refills: 0 Last:08-21-23 MOUTH TWICE A DAY FOR URINARY TRACT Expr:09-20-23 INFECTION 4) ATORVASTATIN CALCIUM 10MG TAB Qty: 90 Issu:09-20-22 for 90 days Sig: TAKE ONE TABLET BY Refills: 0 Last:07-10-23 MOUTH AT BEDTIME Expr:09-21-23 5) ATORVASTATIN CALCIUM 20MG TAB Qty: 45 DISCONTINUED Issu:09-20-22 for 90 days Sig: TAKE ONE-HALF TABLET (EDIT) Last:09-21-22 BY MOUTH AT BEDTIME Refills: 3 Expr:09-21-23 6) BUPROPION HCL 150MG 24HR SA TAB Qty: 90 DISCONTINUED Issu:11-23-22 for 90 days Sig: TAKE ONE TABLET BY Refills: 1 Last:08-13-23 MOUTH EVERY MORNING Expr:11-24-23 7) CALCIUM 200MG (CA CITRATE-950MG) TAB Issu:09-11-22 Qty: 400 for 90 days Sig: TAKE TWO Refills: 0 Last:06-19-23 TABLETS BY MOUTH TWICE A DAY FOR Expr:09-12-23 CALCIUM SUPPLEMENT 8) CHOLECALCIF 25MCG (D3-1,000UNIT) TAB Issu:09-20-22 Qty: 100 for 90 days Sig: TAKE ONE Refills: 0 Last:08-13-23 TABLET BY MOUTH EVERY DAY Expr:09-21-23 9) LIDOCAINE 5% PATCH Qty: 30 for 30 days Issu:08-15-22 Sig: APPLY 1 PATCH TOPICALLY EVERY DAY Refills: 1 Last:08-04-23 FOR PAIN Expr:08-16-23 10) MAGNESIUM OXIDE 400MG TAB Qty: 240 for DISCONTINUED Issu:07-11-22 90 days Sig: TAKE TWO TABLETS BY Refills: 0 Last:05-02-23 MOUTH EVERY DAY FOR SUPPLEMENTATION Expr:07-12-23 11) METOPROLOL SUCCINATE 50MG SA TAB Qty: DISCONTINUED Issu:10-26-22 90 for 90 days Sig: TAKE ONE TABLET (EDIT) Last:08-17-23 BY MOUTH EVERY DAY FOR HEART AND BLOOD Refills: 0 Expr:10-27-23 PRESSURE 12) OMEPRAZOLE 20MG EC CAP Qty: 270 for 90 DISCONTINUED Issu:07-11-22 days Sig: TAKE ONE CAPSULE BY MOUTH Refills: 0 Last:06-12-23 EVERY MORNING AND TAKE TWO CAPSULES Expr:07-12-23 EVERY EVENING ON AN EMPTY STOMACH, AT LEAST 30 MINUTES PRIOR TO A MEAL FOR REFRACTORY GERD 13) SEMAGLUTIDE 0.25MG/0.375ML INJ PEN 3ML DISCONTINUED Issu:11-07-22 Qty: 1 for 42 days Sig: INJECT 0.25MG Refills: 11 Last:11-12-22 UNDER THE SKIN EVERY WEEK FOR 4 WEEKS, Expr:11-08-23 THEN INJECT 0.5MG EVERY WEEK DIABETES AND WEIGHT LOSS 29 Total Medications /es/ TUAN YEUNG MD RESIDENT PHYSICIAN Signed: 10/09/2023 15:09 10/09/2023 ADDENDUM STATUS: COMPLETED FYI to orthopedics Dr. Figueroa: patient was to be scheduled for MARK, appears to have been lost to f/u. Greatly appreciate any help your office can provide. Tuan Yeung MD Internal Medicine/Dermatology PGY-3 --3218 /pablo/ TUAN YEUNG MD RESIDENT PHYSICIAN Signed: 10/09/2023 15:17 Receipt Acknowledged By: * AWAITING SIGNATURE * PATITO FIGUEROA TUAN YEUNG [facility] Oct 09, 2023 10:50 AM INTERNAL MEDICINE NOTE: LOCAL TITLE: MEDICINE CLINIC NOTE STANDARD TITLE: INTERNAL MEDICINE NOTE DATE OF NOTE: OCT 09, 2023@10:50 ENTRY DATE: OCT 09, 2023@10:50:31 AUTHOR: LA OVIEDO EXP COSIGNER: URGENCY: STATUS: COMPLETED I have reviewed this patient's history, pertinent physical examination, laboratory, and (when obtained) radiologic or other diagnostic tests with the resident evaluating this patient. I agree with the treatment plan as outlined. This plan was reviewed with the resident on the date of this note. Staffed with Dr. Yeung. Mr. Thompson presents today for increasing falls in the past few months. Some of the falls are due to tripping, walking on a slick surface, or rapidly standing up with some orthostatic symptoms. He also has some hypophonia and tremors, concerning for development of Parkinsonism. Will refer to neurology. He also has tachycardia from atrial fibrillation, so will increase metoprolol (doubt hypotension is contributing substantially). Will also check echo given some evidence for fluid overload and tachycardia (to look for tachycardia mediated cardiomyopathy). He follows with metabolic clinic for weight and is on semaglutide. He will also follow up with orthopedics for scheduling his MARK. /pablo/ LA OVIEDO MD Staff Physician Signed: 10/09/2023 13:04 LA OVIEDO [facility] Oct 09, 2023 09:45 AM INTERNAL MEDICINE OUTPATIENT NOTE: LOCAL TITLE: MEDICINE CLINIC NURSING NOTE STANDARD TITLE: INTERNAL MEDICINE OUTPATIENT NOTE DATE OF NOTE: OCT 09, 2023@09:45 ENTRY DATE: OCT 09, 2023@09:45:45 AUTHOR: JYOTSNA MEIER EXP COSIGNER: URGENCY: STATUS: COMPLETED TYPE OF VISIT: Appointment Check In Type of appointment: In-person appointment REASON FOR VISIT: Check up. ALLERGIES: SULFAMETHOXAZOLE (Feb 07, 2022) EMPAGLIFLOZIN (Jun 06, 2022) VITAL SIGNS: Blood Pressure: 117/78 (10/09/2023 09:43) Pulse: 124 (10/09/2023 09:43) Respiration: 16 (10/09/2023 09:43) Temperature: 97.4 F [36.3 C] (08/21/2023 12:02) Weight: 185 lb [83.91 kg] (10/09/2023 09:43) Height: 68 in [172.7 cm] (10/09/2023 09:43) BMI: 28.2 O2 Sat: 98% (10/09/2023 09:43) Pain: 0 (10/09/2023 09:43) PAIN SCREEN: Patient is not having significant pain that they wish to discuss with their provider today. MEDICATION Over the Counter/Herbal Medications: The patient states that they take some outside medications and/or herbals. COVID-19 Immunization: Refused Pfizer Monovalent COVID-19 vaccine Immunization: COVID-19 (PFIZER), MRNA, LNP-S, PF, JERI-SUCROSE, 30 MCG/0.3 ML (AGES 12+ YEARS) Refusal Reason: PATIENT DECISION Patient refuses all immunization(s) in the COVID-19 group Date Documented: 10/09/23 09:46 Influenza Immunization: The patient declines to receive the recommended dose of seasonal influenza vaccine. Immunization: INFLUENZA, UNSPECIFIED FORMULATION Refusal Reason: PATIENT DECISION Patient refuses all immunization(s) in the FLU group Date Documented: 10/09/23 09:47 Td / Tdap Immunization: The patient declines to receive the recommended dose of Td/Tdap vaccine. 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 HPI/ROS: 77M following up for annual. Last seen in our clinic 07/2022 Dr. Mondragon with f/u in 1y. Metabolic clinic started semaglutide for him, decreased his glargine, continued metformin. His DEXA showed normal bone density. Seen by ortho for OA, received injections in both knees and rec MARK for R hip. Appears to be lost to their f/u as he never called to schedule his next visit as they requested. Was seen in ED in interim 07/2023 for repeated falls, thought to be mechanical in nature, CT H/N was negative for acute issues. Equivocal UA, though was given abx as he was felt to be symptomatic. Home safety evaluation and PT/OT set up after that visit. Notes also indicate he had been more sleepy during the daytime and confused than his baseline, with possible subsequent return to his baseline after abx course. He continued to have falls, however, (at least two in September, one leading to injury on his chin requiring stitches per available notes). He has an order for home PT and they will start services during the week of 10/20 d/t staff availability. As relates to his falls - One of the falls was getting on the bus with his groceries and states he was on slippery ground and his feet came out from under him. Another was when he was getting out of bed - doesn't have carpet or rugs, has a mattress and boxspring directly on the floor without a frame, has refused to use a bedframe or use a hospital bed d/t concerns about falling out of bed. Thinks he tripped on something but is not sure what. The most recent was standing from the couch, when he stood up and tried to walk he felt like his feet didn't come with me and he fell straight forward and felt powerless to stop himself. He notes he's had a more difficult time walking lately because he keeps losing his balance, not because he's dizzy or lightheaded but just because he feels like he tips over. Thinks he might be weak but also feels like his feet don't move as well as they used to, he has a lot of difficulty especially with turns/stopping/starting. Does endorse feeling lightheaded occasionally when standing up fast but this is not a regular occurrence and was not associated with any of his falls. Endorses SOB with activity but not chest pain and none related to his falls. He was referred to [employer] at last visit, where eval showed mild deficits with no need for specific dysphagia diet. However, they did recommend possible consult to Neurology given hypophonia and tongue shaking seen during swallowing and at rest during CN exam if not consistent with tardive dyskinesia. Seen by psychiatry 09/2023, dx major Major Neurocognitive Disorder, multifactoral etiology (vascular , bipolar disorder, h/o delirium, sleep dysfunction), psychosis, and BPD. Has VH/delusions that are fixed and not causing significant impairment. Bupropion d/c'd at that visit. Exam at that time was not felt to be c/w tardive dyskinesia. 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 He has a court appointed guardian as below. Name of guardian[facility] Flor Diaz, Elaina Verdugo and/or Jj Lassiter Contact information for guardian: [address] [place], [place] [id number] Office: [phone] Past medical history/Active Problems: Active problems - Computerized Problem List is the source for the followin. Essential hypertension (SNOMED CT 18405102) 2. Major depressive disorder (SNOMED CT 367833620) 3. Generalized anxiety disorder (SNOMED CT 18214304) 4. Primary Obesity 5. Bronchiectasis (SNOMED CT 00020376) 6. Gastroesophageal reflux disease (SNOMED CT 136413014) 7. Bariatric Surgery Status 8. Cataracts (SNOMED CT 96642992) 9. Hypermetropia/Hyperopia 10. Astigmatism, Unspec 11. Presbyopia 12. Atrial fibrillation (SNOMED CT 99373086) 13. Varicose veins of lower extremity 14. Compulsive gambling 15. Bipolar disorder (SNOMED CT 41816481) 16. Mild cognitive disorder 17. Type 2 diabetes mellitus 18. Long-term current use of anticoagulant 19. Gastritis 20. Dementia Allergies: SULFAMETHOXAZOLE (Feb 07, 2022) EMPAGLIFLOZIN (Jun 06, 2022) EXAM: VS: Temperature: 97.4 F [36.3 C] (08/21/2023 12:02) Blood Pressure: 117/78 (10/09/2023 09:43) Pulse: 112-122, measured manually during clinic at intervals Respiration: 16 (10/09/2023 09:43) Pain: 0 (10/09/2023 09:43) General: sitting comfortably, NAD HEENT: NCAT, PERRL, EOMI, MMM Lungs: bibasilar insp crackles otherwise CTAB, no W/R/R CV: irregularly irregular and tachycardic, no M/G/R, no JVD Abdomen: BS+, S/NT/ND, no masses Extremities: WWP, 2+ pitting edema b/l LE, pulses 2+ and symmetric b/l Neuro: Shuffling gait, hypophonia, fine resting tremor most notable in jaw> hands. Strength 5/5 in UE and LE. CN II-XII grossly intact Psych: Calm, cooperative, appropriate Data/Labs: Today's Labs: GLUCOSE: 151 H UREA NITROGEN: 22 CREATININE: 1.1 SODIUM: 141 POTASSIUM: 3.8 CHLORIDE: 104 CO2: 29 CALCIUM: 9.3 MAGNESIUM: 1.4 L ANION GAP: 8 CREATININE EGFR (CKD-EPI): 70 HGB A1C: 6.4 H WBC: 7.18 RBC: 3.94 L HGB: 11.7 L HCT: 36.0 L MCV: 91.4 MCH: 29.7 MCHC: 32.5 RDW: 14.3 PLT: 266 MPV: 9.7 Assessment and Plan: # C/f drug-induced parkinsonism Presenting today with hypophonia, fine resting tremor (of jaw more than hands, and also reportedly of tongue per [employer] exam), shuffling gait, increasing difficulty with turns/stopping/starting, recent hx of feet getting stuck causing him to fall over. Long hx of antipsychotic Rx. I suspect this is the most significant cause of his recent falls given his description of the events surrounding them and his grossly intact strength on exam. It's not clear to me that his antipsychotic regimen could be safely modified significantly, and he may require symptom management with additional pharmacotherapy. - Referral to neurology - Co-sign psychiatry as FYI, consider modification of antipsychotics as able # Deconditioning # Falls - Home PT to start this month # A Fib (CHADVASC 5) with RVR # HTN - controlled BP today controlled, HR above goal (110s-120s) though without hypotension or symptomatic palpitations. His hx worsening LE edema and basilar crackles on exam leaves some c/f tachycardia-mediated acute HF (last echo 2017 was unremarkable). Will increase metoprolol slightly as better rate control would be helpful overall and doubt hypotension is contributing significantly to his falls. Will get CXR and echo to w/u possible HF (possibly tachycardia-mediated CM). - Incr metoprolol to 75 mg QD - Cont apixaban via anticoag clinic - TTE and CXR ordered - Will consider referral to cardiology in future pending echo or for consideration of rhythm control vs ablation # OA Affected: hips, knees. [facility] R hip MARK. - APAP PRN - Lidocaine QDay - Voltaren gel PRN - PT - F/u ortho, co-signed for scheduling purposes as he appears to be lost to followup # Overweight Previously obese, has lost 35 lbs on purpose in the past year. Follows w/metabolic clinic, on semaglutide. - F/u metabolic clinic as planned # Normocytic anemia Stable. Mulifactorial (vitamin deficiencies d/t gastric bypass + ACD). - Supplements and f/u as planned per metabolic clinic (next visit 10/2023) # Bipolar II # STEPHANIE # Major Neurocognitive Disorder, multifactoral etiology (vascular , bipolar disorder, h/o delirium, sleep dysfunction) # Sleep dysfunction # Psychosis Follows with Dr. Delvalle with . No SI/HI. Feels this is well controlled currently. - cont psych meds per # DMII A1c today 6.4 from 6.5. Metabolic clinic following. Stopped insulin around 07/2023 as he ran out of supplies and wasn't re-ordered, but his A1c is low enough today that he should be off insulin anyway. - Diabetic Nephropathy: wnl 2022, repeat U alb/cr next visit - Diabetic Neuropathy/Foot Exam: complete at next visit - Diabetic Retinopathy: reminded to call eye clinic for appt - Cont metformin 500 mg QD - Cont semaglutide 0.5 mg QW - F/u as planned metabolic clinic (next visit 10/2023) # HLD # Chronic Small Vessel Ischemia - cont atorvastatin # Hx of Gastric Bypass Patient had Rou-en-Y done in early . Lab monitoring and supplements per metabolic clinic - F/u with metabolic clinic as planned (next visit 10/2023) # Bronchiectasis - albuterol PRN #RHM - C-scope: normal in 2017. No further scopes d/t aging out - AAA: 2016 normal - Eligible for flu shot and bivalent booster RTC 6m Future Appointments: NOV 06, 2023@10:00 Clinic: [facility] 1P-100A NOV 07, 2023@09:30 Clinic: [facility] LAB NOV 07, 2023@10:30 Clinic: [facility] [address] Keagan Yeung MD Internal Medicine/Dermatology PGY-3 --3218 Education on Treatment Plan: Patient indicates [...] medicines under the med tab as appropriate. Medication Reconciliation: Education Evaluations *Was medication education provided for NEW medications or CHANGES to medications? (including medication name, dose, route, reason for use, and potential side effects). Yes. Verbal education was provided to patient/caregiver and patient/caregiver verbalized understanding. TERATOGENIC MED & CONTRACEPTION REVIEW (Optional)... ===== MEDICATION RECONCILIATION ===== List Given: An updated medication list was provided to the patient/caregiver. Active and Recently Outpatient Medications (including Supplies): Issue Date Status Last Fill Active Outpatient Medications Refills Expiration 1) APIXABAN 5MG TAB Qty: 180 for 90 days ACTIVE Issu:10-12-22 Sig: TAKE ONE TABLET BY MOUTH EVERY 12 Refills: 0 Last:10-03-23 HOURS TO PREVENT AND/OR TREAT BLOOD Expr:10-13-23 CLOTS 2) ARIPIPRAZOLE 20MG TAB Qty: 90 for 90 ACTIVE Issu:11-23-22 days Sig: TAKE ONE TABLET BY MOUTH Refills: 0 Last:10-03-23 EVERY DAY FOR BIPOLAR DISORDER DOSE Expr:11-24-23 INCREASED 11-23-22 3) CYANOCOBALAMIN 1000MCG TAB Qty: 100 for ACTIVE Issu:11-27-22 90 days Sig: TAKE ONE TABLET BY MOUTH Refills: 1 Last:08-13-23 EVERY DAY Expr:11-28-23 4) FERROUS SULFATE 325MG TAB Qty: 100 for ACTIVE Issu:11-06-22 90 days Sig: TAKE ONE TABLET BY MOUTH Refills: 0 Last:09-19-23 EVERY DAY IRON DEFICIENCY Expr:11-07-23 5) MAGNESIUM OXIDE 400MG TAB Qty: 120 for ACTIVE Issu:06-17-23 60 days Sig: TAKE TWO TABLETS BY Refills: 4 Last:09-09-23 MOUTH EVERY DAY FOR SUPPLEMENTATION Expr:06-17-24 6) METFORMIN HCL 500MG TAB Qty: 60 for 60 ACTIVE Issu:06-12-23 days Sig: TAKE ONE TABLET BY MOUTH Refills: 4 Last:08-02-23 EVERY DAY FOR DIABETES *NOTE:WHOLE Expr:06-12-24 TABLETS 7) MULTIVIT/OPHTH AREDS2/LUTE/ZEAX CAP/TAB ACTIVE Issu:12-27-22 Qty: 120 for 60 days Sig: TAKE 1 Refills: 1 Last:09-19-23 CAP/TAB BY MOUTH TWICE A DAY WITH Expr:12-28-23 MEALS 8) MULTIVITAMIN CAP/TAB Qty: 100 for 90 ACTIVE Issu:10-11-22 days Sig: TAKE 1 TABLET BY MOUTH Refills: 0 Last:09-19-23 EVERY DAY Expr:10-12-23 9) OMEPRAZOLE 40MG EC CAP Qty: 180 for 90 ACTIVE Issu:09-19-23 days Sig: TAKE ONE CAPSULE BY MOUTH Refills: 3 Last:09-20-23 TWICE A DAY ON AN EMPTY STOMACH, AT Expr:09-19-24 LEAST 30 MINUTES PRIOR TO A MEAL TO DECREASE STOMACH ACID 10) SEMAGLUTIDE 0.25MG/0.375ML INJ PEN 3ML ACTIVE Issu:11-07-22 Qty: 1 for 28 days Sig: INJECT 0.5MG Refills: 3 Last:09-16-23 UNDER THE SKIN EVERY WEEK DIABETES AND Expr:11-08-23 WEIGHT LOSS 11) VENLAFAXINE HCL 150MG 24HR SA CAP Qty: ACTIVE Issu:11-23-22 90 for 90 days Sig: TAKE ONE CAPSULE Refills: 1 Last:08-13-23 BY MOUTH EVERY DAY Expr:11-24-23 Issue Date Status Last Fill Pending Outpatient Medications Refills Expiration 1) ACETAMINOPHEN 500MG TAB Qty: 100 Sig: PENDING TAKE ONE TABLET BY MOUTH EVERY 6 HOURS Refills: 0 NEEDED 2) ALBUTEROL 90MCG (CFC-F) 200D ORAL INHL PENDING Qty: 2 Sig: INHALE 2 PUFFS BY Refills: 0 INHALATION FOUR TIMES A DAY NEEDED 3) ATORVASTATIN CALCIUM 10MG TAB Qty: 90 PENDING Sig: TAKE ONE TABLET BY MOUTH AT Refills: 0 BEDTIME 4) LIDOCAINE 5% PATCH Qty: 30 Sig: APPLY PENDING 1 PATCH TOPICALLY EVERY DAY Refills: 0 5) METOPROLOL SUCCINATE 25MG SA TAB Qty: PENDING 270 Sig: TAKE THREE TABLETS BY MOUTH Refills: 0 EVERY DAY FOR HEART AND BLOOD PRESSURE Issue Date Status Last Fill Inactive Outpatient Medications Refills Expiration 1) ACCU-CHEK GUIDE (GLUCOSE) TEST STRIP Issu:09-20-22 Qty: 100 for 90 days Sig: USE 1 STRIP Refills: 2 Last:07-09-23 EVERY DAY TO CHECK BLOOD SUGAR--USE Expr:09-21-23 WITHIN 3 MINUTES OF REMOVING FROM CONTAINER 2) ACETAMINOPHEN 500MG TAB Qty: 100 for 25 Issu:08-15-22 days Sig: TAKE ONE TABLET BY MOUTH Refills: 1 Last:04-09-23 EVERY 6 HOURS NEEDED FOR PAIN Expr:08-16-23 3) AMOXICILLIN 875/CLAV K 125MG TAB Qty: Issu:08-21-23 14 for 7 days Sig: TAKE 1 TABLET BY Refills: 0 Last:08-21-23 MOUTH TWICE A DAY FOR URINARY TRACT Expr:09-20-23 INFECTION 4) ATORVASTATIN CALCIUM 10MG TAB Qty: 90 Issu:09-20-22 for 90 days Sig: TAKE ONE TABLET BY Refills: 0 Last:07-10-23 MOUTH AT BEDTIME Expr:09-21-23 5) ATORVASTATIN CALCIUM 20MG TAB Qty: 45 DISCONTINUED Issu:09-20-22 for 90 days Sig: TAKE ONE-HALF TABLET (EDIT) Last:09-21-22 BY MOUTH AT BEDTIME Refills: 3 Expr:09-21-23 6) BUPROPION HCL 150MG 24HR SA TAB Qty: 90 DISCONTINUED Issu:11-23-22 for 90 days Sig: TAKE ONE TABLET BY Refills: 1 Last:08-13-23 MOUTH EVERY MORNING Expr:11-24-23 7) CALCIUM 200MG (CA CITRATE-950MG) TAB Issu:09-11-22 Qty: 400 for 90 days Sig: TAKE TWO Refills: 0 Last:06-19-23 TABLETS BY MOUTH TWICE A DAY FOR Expr:09-12-23 CALCIUM SUPPLEMENT 8) CHOLECALCIF 25MCG (D3-1,000UNIT) TAB Issu:09-20-22 Qty: 100 for 90 days Sig: TAKE ONE Refills: 0 Last:08-13-23 TABLET BY MOUTH EVERY DAY Expr:09-21-23 9) LIDOCAINE 5% PATCH Qty: 30 for 30 days Issu:08-15-22 Sig: APPLY 1 PATCH TOPICALLY EVERY DAY Refills: 1 Last:08-04-23 FOR PAIN Expr:08-16-23 10) MAGNESIUM OXIDE 400MG TAB Qty: 240 for DISCONTINUED Issu:07-11-22 90 days Sig: TAKE TWO TABLETS BY Refills: 0 Last:05-02-23 MOUTH EVERY DAY FOR SUPPLEMENTATION Expr:07-12-23 11) METOPROLOL SUCCINATE 50MG SA TAB Qty: DISCONTINUED Issu:10-26-22 90 for 90 days Sig: TAKE ONE TABLET (EDIT) Last:08-17-23 BY MOUTH EVERY DAY FOR HEART AND BLOOD Refills: 0 Expr:10-27-23 PRESSURE 12) OMEPRAZOLE 20MG EC CAP Qty: 270 for 90 DISCONTINUED Issu:07-11-22 days Sig: TAKE ONE CAPSULE BY MOUTH Refills: 0 Last:06-12-23 EVERY MORNING AND TAKE TWO CAPSULES Expr:07-12-23 EVERY EVENING ON AN EMPTY STOMACH, AT LEAST 30 MINUTES PRIOR TO A MEAL FOR REFRACTORY GERD 13) SEMAGLUTIDE 0.25MG/0.375ML INJ PEN 3ML DISCONTINUED Issu:11-07-22 Qty: 1 for 42 days Sig: INJECT 0.25MG Refills: 11 Last:11-12-22 UNDER THE SKIN EVERY WEEK FOR 4 WEEKS, Expr:11-08-23 THEN INJECT 0.5MG EVERY WEEK DIABETES AND WEIGHT LOSS 29 Total Medications /es/ TUAN YEUNG MD RESIDENT PHYSICIAN Signed: 10/09/2023 15:09 10/09/2023 ADDENDUM STATUS: COMPLETED FYI to psychiatry Dr. 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 Referred to neurology but would likely also benefit from changes to antipsychotics if those are possible. Thank you! Tuan Yeung MD Internal Medicine/Dermatology PGY-3 --3218 /pablo/ TUAN YEUNG MD RESIDENT PHYSICIAN Signed: 10/09/2023 15:12 Receipt Acknowledged By: 10/09/2023 16:09 /pablo/ LORETA ORTEGA DO STAFF PSYCHIATRIST 10/09/2023 ADDENDUM STATUS: COMPLETED FYI to orthopedics Dr. Figueroa: patient was to be scheduled for MARK, appears to have been lost to f/u. Greatly appreciate any help your office can provide. Tuan Yeung MD Internal Medicine/Dermatology PGY-3 --3218 /pablo/ TUAN YEUNG MD RESIDENT PHYSICIAN Signed: 10/09/2023 15:17 Receipt Acknowledged By: 10/13/2023 22:17 /pablo/ PATITO FIGUEROA MD STAFF SURGEON 10/13/2023 ADDENDUM STATUS: COMPLETED please schedule at any at DIRECTOR OF ADULT EPILEPSY, PA, [facility] within 30 days for re-evaluation for possible right hip arthroplasty. /pablo/ PATITO FIGUEROA MD STAFF SURGEON Signed: 10/13/2023 22:21 Receipt Acknowledged By: 10/14/2023 12:06 /es/ ALMA FREDERICK ADVANCED MSA 02/24/2024 ADDENDUM STATUS: COMPLETED Alerting PCP to results of TTE, will defer patient notification and follow up for mild/mod to PCP. /pablo/ MARIUSZ PHILLIPS MD PHYSICIAN Signed: 02/24/2024 10:19 Receipt Acknowledged By: * AWAITING SIGNATURE * RACHEL WATSON CONNOR R [facility]
--- OUTSIDE RECORDS SUMMARY | 2024-07-06 16:26 | XMS_ITS | Encounter Summary ---
Author Name [facility] [place] [facility] [place] [facility] [place] [facility] [place] Address [address] [place] [address] Care Team Providers Care Family Program Specialist Name Role Phone MARIUSZ PHILLIPS Primary Care [...] PART A Sep 26, 2012 PART A [id number] [facility] [phone] JUAN THOMPSON JR PATIENT MEDICARE (WNR) MEDICARE (M) PART B Sep 26, 2012 PART B [id number] [phone] JUAN THOMPSON JR PATIENT Selected Encounter This section includes the information on record at [place] for the Encounter. Date/Time Encounter Type Encounter Description Reason Pro vider Source Oct 03, 2023 08:30 AM OFFICE O/P EST MOD 30 MIN PSYCHOGERIATRIC - INDIVIDUAL ICD-10-CM F31.76 Bipolar disorder, in full remis, most recent episode depress JANETTE HONEYCUTT [facility] Encounter Template Text not used by [place] Assessments - Encounter Diagnoses This section includes the primary and secondary diagnoses documented for the Encounter. Date/Time Primary/Secondary Diagnosis Diagnosis Name Provider Source Oct 04, 2023 12:06 PM PRIMARY Bipolar disorder, in full remis, most recent episode depress JOSE HONEYCUTT [facility] Oct 04, 2023 12:06 PM SECONDARY Unspecified dementia, mild, with other behavioral disturb JOSE HONEYCUTT [facility] Oct 04, 2023 12:06 PM SECONDARY Visual hallucinations JOSE HONEYCUTT [facility] Plan of Treatment: Future Appointments (+ 6 months) and Future Tests (+/- 45 days) The Plan of Treatment section includes future care activities for the patient [facility] [place] [facility] This section includes future appointments and future orders which are active, pending or scheduled. Future Appointments This section includes appointments that were scheduled to occur 6 months from the date of the Encounter, up to a maximum of 20 appointments. The data comes from all [place] treatment facilities. Appointment Date/Time Appointment Type Appointme nt Facility Name Oct 09, 2023 09:00 AM AM[facility]ORY - NONE [place] [facility] Oct 09, 2023 10:00 AM [place]IC[place] [facility] Nov 07, 2023 09:30 AM [facility] [place] [facility] [place] [facility] [facility] Nov 07, 2023 10:30 AM [place]IC[place] [facility] Nov 07, 2023 11:30 AM AMB[place] [facility] Nov 07, 2023 11:45 AM [place]IC[place] [facility] Nov 20, 2023 09:00 AM [place] [facility] December 05, 2023 09:30 AM [place] [facility] Feb 07, 2024 11:00 AM AMBULATORY - NONE [place] [facility] Feb 07, 2024 11:30 AM AMB[place] [facility] Feb 07, 2024 12:30 PM AMBUL[place]ORY - NONE [place] [facility] Feb 18, 2024 08:00 AM [place]ORY [place]IC[place] [facility] Mar 05, 2024 07:30 AM [place]IC[place] [facility] Mar 05, 2024 08:30 AM [place]IC[place] [facility] Mar 05, 2024 10:00 AM [facility] [place] [facility] Mar 09, 2024 08:45 AM [place] [facility] Mar 16, 2024 09:00 AM AMBUL[facility]ORY - MEDICINE [facility] Mar 16, 2024 10:15 AM AMBULATORY - NONE [place] [facility] Mar 27, 2024 07:00 AM AMBULATORY - NONE [place] [facility] Mar 31, 2024 07:00 AM AMBULATORY - NONE [place] [facility] Active, Pending, and Scheduled Orders [...] Order URINALYSIS URINE ER STAT WC ONCE [facility] Lab Results: +/- 30 days [...] Range Comment Oct 09, 2023 08:35 AM [facility] HEMOGLOBIN A1C Specimen Type: BLOOD [...] Aug 29, 2023 04:30 PM Reporting Lab: [facility] [id number] Performing Lab: [facility] [id number] HEMOGLOBIN A1C 6.4 H 4.0-6.0 Oct 09, 2023 08:35 AM [facility] CBC Specimen Type: BLOOD No comment entered. Ordering Provider: YO YEUNG Report Released Date/Time: Aug 29, 2023 04:30 PM Reporting Lab: [facility] [id number] Performing Lab: [facility] [id number] WBC 7.18 10*3/uL 4.0-11.0 RBC 3.94 10*6/uL L 4.6-6.2 HGB 11.7 g/dL L 13.5-17.9 HCT 36.0 L 41-54 MCV 91.4 fL 80-100 MCH 29.7 pg 27-33 MCHC 32.5 g/dL 32.0-37.5 PLT 266 10*3/uL 150-400 MPV 9.7 fL 7.4-10.4 RDW 14.3 11.5-14.5 Oct 09, 2023 08:35 AM [facility] BASIC METABOLIC PANEL+MG Specimen Type: PLASMA No comment entered. Ordering Provider: YO YEUNG Report Released Date/Time: Aug 29, 2023 04:30 PM Reporting Lab: [facility] [id number] Performing Lab: [facility] [id number] CREATININE 1.1 mg/dL 0.7-1.2 UREA NITROGEN 22 [...] 21, 2023 10:30 AM VA-TOBACCO FORMER USER [facility] Tobacco Use History This section includes a history of the smoking, or tobacco-related health factors, that were collected on or before the date of the Encounter. The data comes from the [place] facility where the Encounter took place. Date/Time Smoking Status/Tobacco Use Comment F acility Aug 21, 2023 10:30 AM VA-TOBACCO QUIT 15 YRS OR MORE [facility] Aug 15, 2022 09:00 AM VA-TOBACCO FORMER USER [facility] Aug 15, 2022 09:00 AM VA-TOBACCO QUIT 15 YRS OR MORE [facility] Aug 21, 2021 01:00 PM VA-TOBACCO FORMER USER [facility] Aug 21, 2021 01:00 PM VA-TOBACCO QUIT 15 YRS OR MORE [facility] Jul 09, 2018 08:58 AM VA-TOBACCO FORMER USER [facility] Jul 09, 2018 08:58 AM VA-TOBACCO QUIT 15 YRS OR MORE [facility] Jul 18, 2017 09:58 AM FORMER TOBACCO USER 7Y OR GREATE R [facility] Aug 14, 2016 10:59 AM FORMER TOBACCO USER 7Y OR GREATE R [facility] Jun 29, 2015 02:03 PM FORMER TOBACCO USER 7Y OR GREATE R [facility] Jan 06, 2014 03:04 PM FORMER TOBACCO USER 7Y OR GREATE R [facility] Jan 04, 2012 08:36 AM FORMER TOBACCO USER 7Y OR GREATE R [facility] Encounter Notes: All associated encounter notes This section contains the clinical notes associated to the Encounter. Date/Time Encounter Note(s) Provider Source Oct 03, 2023 09:26 AM [facility] NOTE: LOCAL TITLE: MH TARDIVE DYSKINESIA EXAM STANDARD TITLE: MENTAL HEALTH E & M NOTE DATE OF NOTE: OCT 03, 2023@09:26 ENTRY DATE: OCT 03, 2023@09:26:24 AUTHOR: JAMES SAUNDERS COSIGNER: URGENCY: STATUS: COMPLETED AIMS (Mental Health [...] Status Current problems with teeth and/or dentures. no 12. Dental Status Does patient usually wear dentures? no The Psychiatrist/Clinician is responsible for determining if the patient has Tardive Dyskinesia and document it in the patients record. Last exam date/score/severity ratin08/21/23 with a score of 0. Only items 1-7 are counted in the total score. Items 8-10 are global judgments; items 11-12 indicate dental status. Exam score of 3 or more on 1 body region, or, 2 or more on 2 body regions, qualifies patients for Schooler's and Hurd's criteria of Tardive Dyskinesia. Scoring Thomas: 0=None, 1=minimal-might be normal, 2=mild, 3=moderate, 4=severe /pablo/ JAMES SAUNDERS LPN Signed: 10/03/2023 09:27 Receipt Acknowledged By: 10/04/2023 19:12 /pablo/ LORETA HONEYCUTT DO STAFF PSYCHIATRIST JAMES SAUNDERS [facility] Oct 03, 2023 08:38 AM PSYCHIATRY E & M NOTE: LOCAL TITLE: PSYCHIATRIC EVALUATION & MANAGEMENT STANDARD TITLE: PSYCHIATRY E & M NOTE DATE OF NOTE: OCT 03, 2023@08:38 ENTRY DATE: OCT 03, 2023@08:38:14 AUTHOR: LORETA HONEYCUTT COSIGNER: URGENCY: STATUS: COMPLETED PSYCHIATRIC EVALUATION AND MANAGEMENT FOLLOW UP VISIT INTERVAL HISTORY: Patient is a 77 year old Male with history of bipolar disorder and Major Neurocognitive Disorder. No medication changes made at last appointment. Per Chart review, patient's in home caregivers have been concerned about declining cognition and function and falls. Per Medicine clinic note 08/26/23: He also seems to be more confused and forgetful over the last month, suspects this was r/t gradually worsening UTI, but possibly worsening cognition and dementia. Pt has been forgetting to use his walker. A few weeks ago he lost his dentures at home, staff and pt still haven't been able to locate them. Pt was able to locate his past bottom denture, but not the top, so has been able to eat some foods safely. Per Community Care Coordination Note 10/02/23: He had fallen Saturday night and split his chin wide open. We finally convinced him Saturday afternoon to be seen at the [facility] and they put in 6 stitches. She reports all the did was stand up from his chair, straightened, and fell forward face down. The week prior she reports he tripped getting out of bed and got a bloody nose. SUBJECTIVE: Patient reports mood is intermittently depressed, leads very solitary life. Transportation is main barrier to inccreased socialization. Had two recent mechanical falls and seen in ED 10/02/23. He reports he is not dizzy or lightheaded but falling because his body feels awkward and clumsy. Reports sleeping pretty well at night. Fell out of bed at night and got a bloody nose. Was dreaming his mother was in bed and tried to scoot over to leave room for her. Patient reports he has a twin bed and it was been suggested he get a bigger bed but has not felt that was necessary. Evaluated psychotic symptoms. Asked directly about history of communicating through the television. Patient reports he remembers this time and was able to communicate with television newspeople such as James Esparza. Denies this is happening currently but believes that it did in the past. He reports ongoing Visual hallucinations of his parents when he is at his apartment. He finds this entirely comforting. Does not cause distress. Denies current auditory hallucinations. Patient reports current medication for bipolar disorder is helping with mood stability. Reports it prevents him from being too up and also prevents severe depression with suicidal ideation. Spoke with patient's guardian Nathalie who confirms patient has increased falls lately. Reports he has been stable in his mental health per her interactions with him. She is in agreement/gives consent to discontinue bupropion to reduce polypharmacy. SUBSTANCE USE: Denies current use of ETOH, cannabis, stimulants, or other substances MEDICATION COMPLIANCE: Per chart review had made errors in taking medication recently MOST RECENT VITALS: Blood Pressure: 110/63 (08/21/2023 12:02) Pulse: 66 (08/21/2023 12:02) Temperature: 97.4 F [36.3 C] (08/21/2023 12:02) Weight: 184.3 lb [83.60 kg] (07/11/2023 09:58) Body Mass Index: 28.1 MENTAL STATUS EXAM: General: Cooperative, no acute distress, slow gait, uses walker, large buise on chin Eye Contact: Good Psychomotor Activity: WNL (Within normal limits) Abnormal Involuntary Movements: None Speech: Regular rate and rhythm, soft at baseline Mood: Euthymic Affect: somewhat blunted, appropriate, mood congruent Thought Process: tangential Thought Content: Denies SI (Suicidal Ideation), HI(Homicidal Ideation) Perceptual disturbances: No AH(Auditory Hallucinations),VH(Visual Hallucinations), or delusions Insight: Fair Judgment: Fair Attention/Concentration: Intact for exam purposes PERTINENT ASSESSMENTS: Neuropsychological testing 01/17/2023: DIAGNOSIS: Unspecified dementia, mild, with other behavioral disturbance (ICD- 10-CM F03.A18) (Primary), Bipolar Disorder, Current Episode Depressed, Severe, with Psychotic Features (ICD-10-CM F31.5) SUMMARY/IMPRESSIONS: The 's presentation is likely consistent with a major neurocognitive disorder (dementia) affecting multiple cognitive domains. Etiology is certainly multifactorial. The 's psychiatric presentation likely plays a prominent role; symptoms of psychosis were evident during the current evaluation and appeared to affect his attention and ability to engage in the assessment; this may be enrollment representative of his day-to-day functioning. Given his [...] and sleep disruption is encouraged. [facility] (09/2021) LABS 07/11/2023 HEMOGLOBIN A1C 6.5 H % 4.0 - 6.0 Collection DT Spec CH LDL-CHO SUMEET LDL NONHDLC *HDL TRIG(NO TR 07/11/2023 10:37 PLASM 110 38 57 53 93 ASSESSMENT: 77 yo male with PMH significant [...] 2022 which have now appeared to improve. Has chronic visual hallucinations of his parents which he finds entirely comforting. Mood is stable and believes depression has improved since increase in aripiprazole. 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 Denies any command type auditory hallucinations, suicidal ideation, homicidal ideation, manic or hypomanic symptoms. VH/delusions are fixed and not causing significant impairment. No indication to adjust antipsychotic medication. Patient with multiple mechanical falls recently, likely multfactorial largely related to deconditioning. Will discontinue bupropion to reduce polypharmacy (strong CYP2D6 inhibitor may increase levels of aripriprazole and increase risk of adverse side effects including dizziness/falls). This was discussed with patient's guardian who is in agreement DIAGNOSIS: Bipolar Disorder, most recent episode depressed,mild Psychosis, unspecified Major Neurocognitive Disorder, multifactoral etiology (vascular , bipolar disorder, h/o delirium, sleep dysfunction) TREATMENT PLAN: -Continue Aripiprazole 20 mg po daily -Continue Venlafaxine 150 mg po daily. -Discontinue Bupropion 24HR 150 mg po daily. -Metabolic Lab monitoring: HgA1c 6.5/Lipid panel WNL 06/2023 -AIMS monitoring: AIMS 0 on 10/03/23 -RTC 4-6 weeks -Collateral: Guardian: Nathalie Cline: SUICIDE RISK ASSESSMENT: [...] clinical information in medical record, and care coordination:35 minutes /es/ LORETA HONEYCUTT DO STAFF PSYCHIATRIST Signed: 10/04/2023 12:06 LORETA HONEYCUTT [facility]
--- OUTSIDE RECORDS SUMMARY | 2024-07-06 16:27 | XMS_ITS | Encounter Summary ---
Author Name [facility] [facility] [place] [facility] [place] [facility] [place] Address [address] [place] [address] Care Team Providers Care Specialties Operator Name Role Phone MARIUSZ PHILLIPS Primary Care [...] PART A Sep 26, 2012 PART A [id number] [facility] [phone] GIO THOMPSON JR PATIENT MEDICARE (WNR) MEDICARE (M) PART B Sep 26, 2012 PART B [id number] [phone] GIO THOMPSON JR PATIENT Selected Encounter This section includes the information on record at [place] for the Encounter. Date/Time Encounter Type Encounter Description Reason Provider Source Feb 07, 2024 11:30 AM OFFICE O/P EST MOD 30 MIN ORTHO/JOINT SURG ICD-10-CM M16.11 Unilateral primary osteoarthritis, right hip DAIN FIGUEROA ES Christos IHE Encounter Template Text not used by [place] Assessments - Encounter Diagnoses This section includes the primary and secondary diagnoses documented for the Encounter. Date/Time Primary/Secondary Diagnosis Diagnosis Name Provider Source Feb 09, 2024 12:38 PM PRIMARY Unilateral primary osteoarthritis, right hip LAVON FIGUEROA [facility] Feb 09, 2024 12:38 PM SECONDARY Bilateral primary osteoarthritis of knee LAVON FIGUEROA [facility] Plan of Treatment: Future Appointments (+ 6 months) and Future Tests (+/- 45 days) The Plan of Treatment section includes future care activities for the patient from all [place] [facility] This section includes future appointments and future orders which are active, pending or scheduled. Future Appointments This section includes appointments that were scheduled to occur 6 months from the date of the Encounter, up to a maximum of 20 appointments. The data comes from all [place] treatment facilities. Appointment Date/Time Appointment Type Appointme nt Facility Name Feb 18, 2024 08:00 AM AM[place]ORY [place]IC[place] [facility] Mar 05, 2024 07:30 AM [place] [place] [facility] Mar 05, 2024 08:30 AM [place] [facility] Mar 05, 2024 10:00 AM [place] [facility] Mar 09, 2024 08:45 AM [place] [facility] Mar 16, 2024 09:00 AM [place] [facility] Mar 16, 2024 10:15 AM [place] [facility] Mar 27, 2024 07:00 AM [place] [place] [facility] Mar 31, 2024 07:00 AM [place] [place] [facility] Apr 20, 2024 08:00 AM [place] [place] [facility] Apr 20, 2024 09:30 AM [place] [facility] Apr 22, 2024 09:00 AM [place] [facility] Apr 22, 2024 10:00 AM [place] [place]IC[place] [facility] Apr 29, 2024 10:30 AM [place] [facility] May 13, 2024 12:00 PM [facility] [place] [facility] May 13, 2024 01:00 PM [place] [facility] May 20, 2024 09:45 AM [place] [place] [facility] May 26, 2024 09:15 AM AMBULATORY - MEDICINE [facility] Jun 03, 2024 10:00 AM AMBULATORY - MEDICINE [facility] Jun 04, 2024 09:30 AM [place] [place] [facility] Active, Pending, and Scheduled Orders This [...] Order CARDIAC EC HO OUTPT-ALL SITES Cons Warp Tying Machine Tender's Choice [facility] Lab Results: +/- 30 days [...] Result - Unit Interpretation Reference Range Comment Mar 05, 2024 09:55 AM [facility] VITAMIN B-1,BLOOD Specimen Type: BLOOD Comment: Vitamin supplementation within 24 hours prior to blood draw may affect the accuracy of the results. This test was developed and its analytical performance characteristics have been determined by [employer] [place], [place]. It has not been cleared or approved by the U.S. Food and Drug Administration. This assay has been validated pursuant to the CLIA regulations and is used for clinical purposes. Test Performed by [facility] [place], [address] [place] [address] Devante Meyer M.D., Ph.D., Director of Laboratories , CLIA [id number] Ordering Provider: CATHY,INDERJIT CASAREZ Report Released Date/Time: Mar 05, 2024 09:40 AM Reporting Lab: [facility] ONE [facility] [address] Performing Lab: [address] VITAMIN B-1,BLOOD 125 nmol/L 78-185 Mar 05, 2024 09:55 AM [facility] VITAMIN A Specimen Type: SERUM Comment: Vitamin supplementation within 24 hours prior to blood draw may affect the accuracy of the results. This test was developed and its analytical performance characteristics have been determined by [facility] [place], [place]. It has not been cleared or approved by the U.S. Food and Drug Administration. This assay has been validated pursuant to the CLIA regulations and is used for clinical purposes. Test [facility] by [facility] [place], [address] [place] [address] Devante Meyer M.D., Ph.D., Director of Laboratories , CLIA [id number] Ordering Provider: INDERJIT MORGAN Report Released Date/Time: Mar 05, 2024 09:40 AM Reporting Lab: [address] Performing Lab: [address] VITAMIN A 54 ug/dL 38-98 Mar 05, 2024 09:55 AM [facility] ZINC Specimen Type: SERUM Comment: This test was developed and its analytical performance characteristics have been determined by [facility] [place], [place]. It has not been cleared or approved by the U.S. Food and Drug Administration. This assay has been validated pursuant to the CLIA regulations and is used for clinical purposes. Test Performed by [facility], [address] [place] [address] Devante Meyer M.D., Ph.D., Director of Laboratories , CLIA [id number] Ordering Provider: INDERJIT MORGAN Report Released Date/Time: Mar 05, 2024 09:40 AM Reporting Lab: [facility] [id number] Performing Lab: [address] ZINC 96 ug/dL 60-130 Mar 05, 2024 09:55 AM [facility] COPPER Specimen Type: PLASMA Comment: This test was developed and its analytical performance characteristics have been determined by [facility] [place], [place]. It has not been cleared or approved by the U.S. Food and Drug Administration. This assay has been validated pursuant to the CLIA regulations and is used for clinical purposes. Test Performed by [facility], [facility], [address] [place] [address] Devante Meyer M.D., Ph.D., Director of Laboratories , CLIA [id number] Ordering Provider: INDERJIT OMRGAN Report Released Date/Time: Mar 05, 2024 09:40 AM Reporting Lab: [facility] [address] Performing Lab: [address] COPPER 99 ug/dL 70-175 Mar 05, 2024 09:55 AM [facility] TSH W/REFLEX TO FREE T4 Specimen Type: PLASMA No comment entered. Ordering Provider: INDERJIT MORGAN Report Released Date/Time: Mar 05, 2024 09:40 AM Reporting Lab: [facility] [address] Performing Lab: [facility] [address] TSH 2.01 u[IU]/mL 0.35-4.94 Mar 05, 2024 09:55 AM [facility] FERRITIN Specimen Type: SERUM No comment entered. Ordering Provider: INDERJIT MORGAN Report Released Date/Time: Mar 05, 2024 09:40 AM Reporting Lab: [facility] [address] Performing Lab: [facility] [address] FERRITIN 191.6 ng/mL 21.8-274.7 Mar 05, 2024 09:55 AM [facility] PRE-ALBUMIN Specimen Type: SERUM No comment entered. Ordering Provider: INDERJIT MORGAN Report Released Date/Time: Mar 05, 2024 09:40 AM Reporting Lab: [facility] [address] Performing Lab: [facility] [address] PRE-ALBUMIN 19.9 mg/dL 14.0-45.0 Mar 05, 2024 09:55 AM [facility] B 12 Specimen Type: PLASMA No comment entered. Ordering Provider: INDERJIT MORGAN Report Released Date/Time: Mar 05, 2024 09:40 AM Reporting Lab: [facility] [address] Performing Lab: [facility] [address] B 12 864 pg/mL H 213-816 Mar 05, 2024 09:55 AM [facility] LIPID PANEL,NON-FASTING Specimen Type: PLASMA No comment entered. Ordering Provider: INDERJIT MORGAN Report Released Date/Time: Mar 05, 2024 09:40 AM Reporting Lab: [facility] [address] Performing Lab: [facility] [address] CHOLESTEROL 111 mg/dL <199 .HDL 45 mg/dL >40 LDL CALCULATION 54 mg/dL <99 VLDL CALCULATION 12 mg/dL <29 NON HDL CHOLESTEROL 66 mg/dL <129 TRIG(NON FASTING) 60 mg/dL <149 Mar 05, 2024 09:55 AM [facility] FOLATE Specimen Type: SERUM No comment entered. Ordering Provider: INDERJIT MORGAN Report Released Date/Time: Mar 05, 2024 09:40 AM Reporting Lab: [facility] [address] Performing Lab: [facility] [address] FOLATE 14.5 ng/mL >7.0 Mar 05, 2024 09:55 AM [facility] VIT D 25-OH,TOTAL Specimen Type: SERUM No comment entered. Ordering Provider: INDERJIT MORGAN Report Released Date/Time: Mar 05, 2024 09:40 AM Reporting Lab: [facility] [address] Performing Lab: [facility] [address] VIT D 25-OH,TOTAL 71 ng/mL H 12-50 Mar 05, 2024 09:55 AM [facility] CALCIUM Specimen Type: PLASMA No comment entered. Ordering Provider: INDERJIT MORGAN Report Released Date/Time: Mar 05, 2024 09:40 AM Reporting Lab: [facility] [address] Performing Lab: [facility] [address] CALCIUM 9.6 mg/dL 8.4-10.2 Mar 05, 2024 09:55 AM [facility] COMPREHENSIVE METABOLIC PANEL+MG Specimen Type: PLASMA No comment entered. Ordering Provider: INDERJIT MORGAN Report Released Date/Time: Mar 05, 2024 09:40 AM Reporting Lab: [facility] [address] Performing Lab: [facility] [address] CREATININE 1.1 mg/dL 0.7-1.2 UREA NITROGEN 19 mg/dL 8-26 GLUCOSE 166 mg/dL H 70-100 SODIUM 140 mmol/L 136-145 POTASSIUM 3.8 mmol/L 3.5-5.1 CHLORIDE 99 mmol/L 98-107 CO2 33 mmol/L H 22-29 CALCIUM 9.6 mg/dL 8.4-10.2 PROTEIN,TOTAL 6.1 g/dL L 6.4-8.3 ALBUMIN 3.8 g/dL 3.5-5.2 BILIRUBIN, TOTAL 0.7 mg/dL 0.2-1.2 MAGNESIUM 1.4 mg/dL L 1.6-2.6 ANION GAP 8 mmol/L 5-15 ALKALINE PHOSPHATASE 135 U/L 40-150 ALT/SGPT 7 U/L <44 AST/SGOT 25 U/L 11-34 .CREAT EGFR(CKD-EPI) 70 >60 Mar 05, 2024 09:55 AM [facility] MAGNESIUM Specimen Type: PLASMA No comment entered. Ordering Provider: INDERJIT MORGAN Report Released Date/Time: Mar 05, 2024 09:40 AM Reporting Lab: [facility] [address] Performing Lab: [facility] [address] MAGNESIUM 1.4 mg/dL L 1.6-2.6 Mar 05, 2024 09:55 AM [facility] IRON GROUP Specimen Type: SERUM No comment entered. Ordering Provider: INDERJIT MORGAN Report Released Date/Time: Mar 05, 2024 09:40 AM Reporting Lab: [facility] [address] Performing Lab: [facility] [address] IRON 59 ug/dL L 65-175 TIBC,CALCULATE D 258 ug/dL 250-425 FERRITIN 191.6 ng/mL 21.8-274.7 IRON SATURATION 23 20-50 TRANSFERRIN 206 mg/dL 163-382 Mar 05, 2024 09:55 AM [facility] CBC & DIFF Specimen Type: BLOOD Comment: Automated Differential Performed Ordering Provider: INDERJIT MORGAN Report Released Date/Time: Mar 05, 2024 09:40 AM Reporting Lab: [facility] [address] Performing Lab: [facility] [address] WBC 6.85 10*3/uL 4.0-11.0 RBC 4.20 10*6/uL L 4.6-6.2 HGB 12.3 g/dL L 13.5-17.9 HCT 37.6 L 41-54 MCV 89.5 fL 80-100 MCH 29.3 pg 27-33 MCHC 32.7 g/dL 32.0-37.5 PLT 305 10*3/uL 150-400 MPV 9.3 fL 7.4-10.4 NEUT 65.5 40.0-80.0 LYMPHS 23.8 15.0-45.0 MONO 7.0 2.0-12.0 EOSINO 3.1 0.0-6.0 BASO 0.3 0.0-2.0 RDW 13.4 11.5-14.5 ABS LYMPH 1.63 10*3/uL 1.0-4.0 ABS MONO 0.48 10*3/uL 0.1-1.0 ABS NEUT 4.49 10*3/uL 2.0-7.7 ABS EOS 0.21 10*3/uL 0-0.5 ABS BASO 0.02 10*3/uL 0-0.2 IG(META,MYELO, PRO) 0.3 ABS IMMATURE GRAN 0.02 10*3/uL 0-0.1 Mar 05, 2024 09:55 AM [facility] PTH-N-TACT Specimen Type: SERUM No comment entered. Ordering Provider: INDERJIT MORGAN Report Released Date/Time: Mar 05, 2024 09:40 AM Reporting Lab: [facility] [address] Performing Lab: [facility] [address] PTH-N-TACT 26.5 pg/mL 8.7-77.1 Mar 05, 2024 09:54 AM [facility] VITAMIN A Specimen Type: SERUM Comment: Vitamin supplementation within 24 hours prior to blood draw may affect the accuracy of the results. This test was developed and its analytical performance characteristics have been determined by [facility] [place], [place]. It has not been cleared or approved by the U.S. Food and Drug Administration. This assay has been validated pursuant to the CLIA regulations and is used for clinical purposes. Test Performed by [facility], [facility], [address] [place] [address] Devante Meyer M.D., Ph.D., Director of Laboratories , CLIA [id number] Ordering Provider: INDERJIT MORGAN Report Released Date/Time: Mar 05, 2024 09:40 AM Reporting Lab: [facility] [address] Performing Lab: [address] VITAMIN A 54 ug/dL 38-98 Mar 05, 2024 07:35 AM [facility] HEMOGLOBIN A1C Specimen Type: BLOOD Comment: Values obtained from A1C measurements can vary. For typical A1C assays, a reported value of 7.0 could actually be between 6.7 and 7.3 if measured by a reference method. A reported value of 9.0 could actually be between 8.7 and 9.3. Ref: http://www.ngsp. org/CAPdata.asp Ordering Provider: ARABELLA VANESSA JR Report Released Date/Time: Nov 07, 2023 10:56 AM Reporting Lab: [facility] [address] Performing Lab: [facility] [address] HEMOGLOBIN A1C 6.6 H 4.0-6.0 Social History: Smoking Status (Most [...] place. Date/Time Current Smoking Status Comment Facil [facility] Aug 21, 2023 10:30 AM [place]-TOBACCO FORMER USER [facility] Tobacco Use History This section includes a history of the smoking, or tobacco-related health factors, that were collected on or before the date of the Encounter. The data comes from the [place] facility where the Encounter took place. Date/Time Smoking Status/Tobacco Use Comment F acility Aug 21, 2023 10:30 AM VA-TOBACCO QUIT 15 YRS OR MORE [facility] Aug 15, 2022 09:00 AM VA-TOBACCO FORMER USER [facility] Aug 15, 2022 09:00 AM VA-TOBACCO QUIT 15 YRS OR MORE [facility] Aug 21, 2021 01:00 PM VA-TOBACCO FORMER USER [facility] Aug 21, 2021 01:00 PM VA-TOBACCO QUIT 15 YRS OR MORE [facility] Jul 09, 2018 08:58 AM VA-TOBACCO FORMER USER [facility] Jul 09, 2018 08:58 AM VA-TOBACCO QUIT 15 YRS OR MORE [facility] Jul 18, 2017 09:58 AM FORMER TOBACCO USER 7Y OR GREATE R [facility] Aug 14, 2016 10:59 AM FORMER TOBACCO USER 7Y OR GREATE R [facility] Jun 29, 2015 02:03 PM FORMER TOBACCO USER 7Y OR GREATE R [facility] Jan 06, 2014 03:04 PM FORMER TOBACCO USER 7Y OR GREATE R [facility] Jan 04, 2012 08:36 AM FORMER TOBACCO USER 7Y OR GREATE R [facility] Radiology Reports: +/- 30 days [...] Encounter. The data comes from all [facility] facilities. Date/Time Radiology Report Provider Source Feb 07, 2024 12:25 PM SPINE LUMBOSACRAL 2 OR 3 VIEWS: GIO THOMPSON [id number] -[id number] M Exm Date: FEB 07, 2024@12:25 Req Phys: PATITO FIGUEROA Loc: [facility] [place] (Req'g Loc Img Loc: MAIN X-RAY Service: [place] [address] (Case [id number] COMPLETE) SPINE LUMBOSACRAL 2 OR 3 VIEWS (RAD Detailed) CPT:28718 Proc Modifiers : Standing Reason for Study: radiating right lower extremity pain Clinical History: IS NOT under investigation for COVID-19 or is COVID-19 negative radiating right lower extremity. Please perform AP & Lat. Responsible provider name and phone number to notify for critical findings if other than user placing the order and pager listed below: User placing orders pager: LAST CREATININE 1.1 (10/09/23) Report Status: Verified Date Reported: FEB 07, 2024 Date Verified: FEB 07, 2024 Safety Deposit Clerk E-Sig:/ES/SWATHI STACY MD Report: SPINE LUMBOSACRAL 2 OR 3 VIEWS 02/07/2024 INDICATION: radiating right lower extremity pain COMPARISON: None. FINDINGS: Five lumbar vertebral bodies. Small T12 ribs. Lordosis normal. Mild S-shaped asymmetry convex right superiorly and convex left inferiorly. Vertebral body heights are maintained. Dzmp-nf-sopyqlxy diffuse disc space narrowing. Modest degree of facet arthropathy. No acute superimposed bony finding. Moderate aortic calcification. Normal caliber. Clips from cholecystectomy. Stool impaction in the colon. Advanced degenerative change of the right hip. 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 No acute bony finding. Advanced degenerative change of the right hip. Primary Interpreting Staff: SWATHI STACY MD, RADIOLOGIST (Safety Deposit Clerk) /SWATHI [facility] Feb 07, 2024 10:22 AM HIP RIGHT 2 VIEWS W/PELVIS: GIO THOMPSON [id number] M Ex Date: FEB 07, 2024@10:22 Req Phys: PATITO FIGUEROA Pat Loc: V23 [facility] PHONE CCC RN (Tim'jasmine Hemphill Img Loc: MAIN X-RAY Service: [place] [address] (Case [id number] COMPLETE) HIP RIGHT 2 VIEWS W/PELVIS (RAD Detailed) CPT:72563 Reason for Study: pain Clinical History: pain Responsible provider name and phone number to notify for critical findings if other than user placing the order and pager listed below: User placing orders pager: LAST CREATININE 1.1 (10/09/23) Report Status: Verified Date Reported: FEB 07, 2024 Date Verified: FEB 07, 2024 Safety Deposit Clerk E-Sig:/ES/LYNNE MARTÍNEZ DO Report: EXAMINATION: HIP RIGHT 2 VIEWS W/PELVIS 02/07/2024 10:22 AM INDICATION: pain COMPARISON: 08/28/2022 Impression: Severe degenerative change in the right hip joint with joint space narrowing, subchondral sclerosis and cystic change and osteophyte formation. No collapse of the femoral heads. Mild left hip joint degenerative change. Left femoral head contour is preserved. Subchondral sclerosis along the SI joints, left greater than right. Symphysis is intact. No acute fracture or dislocation. Primary Interpreting Staff: LYNNE MARTÍNEZ DO, RADIOLOGIST (Safety Deposit Clerk) /DDS LYNNE MARTÍNEZ [facility] Encounter Notes: All associated encounter notes This section contains the clinical notes associated to the Encounter. Date/Time Encounter Note(s) Provider Source Feb 07, 2024 09:39 PM ORTHOPEDIC SURGERY ATTENDING NOTE: LOCAL TITLE: ORTHOPEDIC CLINIC NOTE STANDARD TITLE: ORTHOPEDIC SURGERY ATTENDING NOTE DATE OF NOTE: FEB 07, 2024@21:39 ENTRY DATE: FEB 07, 2024@21:39:08 AUTHOR: PATITO FIGUEROA COSIGNER: URGENCY: STATUS: COMPLETED SUBJECT: Orthopedic Clinic Note Subjective: Mr. Gio Thompson is a 78-year-old male returning today for follow-up evaluation of his bilateral knee and right hip osteoarthritis. He was last seen for the above problems back in 04/19/23. At that time, he was getting treatment for pneumonia and surgical treatment consisting of a right total hip arthroplasty was put on hold due to this co-morbidity. At present, he still has persistent right hip/groin and bilateral knee pain that is relatively well controlled. He has still limited activities during pain exacerbation. He has had cortisone injections on both knees. He now reports radiating pain on his right lower extremity that is more prominent during activities. No numbness or tingling reported. He has no other complaints. Objective: Physical [...] bilateral lower extremities, with hair loss. - no reproduceable radiating pain on hip/LE maneuvers - intact motor and sensory function - distal pulses PT/DP were palpable today. Focused examination of [facility] back: - skin is intact - no significant warmth, swelling or erythema - no palpable tenderness - (-) SLR Imaging: No new imaging on today'smvisit Assessment/Plan: - Degenerative arthritis right hip - Degerative arthritiss bilateral knees I discussed the clinical and imaging findings which were consistent with right hip and bilateral knee osteoarthrtis. His recent complaint of radiating pain may possible indicate degenerative changes in his lower back. We will obtain a lumbar x-ray to further evaluate this. Order for xrays were placed. I will call him back on 02/24/24 to discuss the results. Patient's pneumonia has resolved. Lately, he has had several episodes of fall. Neurology evaluated patient for parkinsonism versus other movement disorder and recommended [employer] to evaluate further for idiopathic Parkinson's disease. His right hip and bilateral knee pain persists but seemed to have decreased in the intensity of pain. We will hold off on scheduling him for a right MARK until the underlying cause of his frequent falls is detrmined and addressed. The patient and his guardian agreed with this plan. All their questions and concerns were answered to their satisfaction. I spent 30 minutes with the patient to discuss the clinical findings, review the imaging studies and treatment plan. More than 50% of the time was spent counselling the patient. /pablo/ PATITO FIGUEROA MD STAFF SURGEON Signed: 02/09/2024 12:39 PATITO FIGUEROA [facility]
--- OUTSIDE RECORDS SUMMARY | 2024-07-06 16:27 | XMS_ITS | Encounter Summary ---
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 Date/Time Encounter Type Encounter Description Reason Provider Source Nov 07, 2023 10:30 AM OFFICE O/P EST MOD 30 MIN ENDOCRINOLOGY ICD-10-CM 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 mellitus with diabetic neuropathy, unsp AMANDA ALVAREZ E Encounter Template Text not used by [place] Assessments - Encounter Diagnoses This section includes the primary and secondary diagnoses documented for the Encounter. Date/Time Primary/Secondary Diagnosis Diagnosis Name Provider Source Nov 13, 2023 04:19 PM PRIMARY Type 2 diabetes mellitus with diabetic neuropathy, unsp AMANDA ALVAREZ [facility] Nov 13, 2023 04:19 PM SECONDARY Bariatric surgery status AMANDA ALVAREZ [facility] Nov 13, 2023 04:19 PM SECONDARY Overweight AMANDA ALVAREZ [facility] Plan of Treatment: Future Appointments (+ 6 months) and Future Tests (+/- 45 days) The Plan of Treatment section includes future care activities for the [facility] This section includes future appointments and future orders which are active, pending or scheduled. Future Appointments This section includes appointments that were scheduled to occur 6 months from the date of the Encounter, up to a maximum of 20 appointments. The data comes from all [place] treatment facilities. Appointment Date/Time Appointment Type Appointme nt Facility Name Nov 20, 2023 09:00 AM AMBULATORY - [facility]UROLOGY [facility] December 05, 2023 09:30 AM AMBULAT[facility] - PSYCHIATRY [facility] Feb 07, 2024 11:00 AM AMB[facility]ATORY - NONE [facility] Feb 07, 2024 11:30 AM AMBULATORY - SURGERY [facility] Feb 07, 2024 12:30 PM AMBULATORY - NONE [facility] Feb 18, 2024 08:00 AM AMBULATORY - MEDICINE [facility] Mar 05, 2024 07:30 AM AMBUL[facility]ORY - MEDICINE [facility] Mar 05, 2024 08:30 AM AMBULATORY - MEDICINE [facility] Mar 05, 2024 10:00 AM AMBULATORY - MEDICINE [facility] Mar 09, 2024 08:45 AM AMBULATORY - SURGERY [facility] Mar 16, 2024 09:00 AM AMBULATORY - MEDICINE [facility] Mar 16, 2024 10:15 AM AMBULATORY - NONE [facility] Mar 27, 2024 07:00 AM AMBULATORY - NONE [facility] Mar 31, 2024 07:00 AM AMBULATORY - NONE [facility] Apr 20, 2024 08:00 AM AMBULATORY - NONE [facility] Apr 20, 2024 09:30 AM [facility]OLOG[facility] Apr 22, 2024 09:00 AM AMB[facility]ORY - NONE [facility] Apr 22, 2024 10:00 AM [facility] - MEDICINE [facility] Apr 29, 2024 10:30 AM [facility] Lab Results: +/- 30 days [...] Range Comment Nov 07, 2023 11:14 AM [facility] VIT D 25-OH,TOTAL Specimen Type: SERUM No comment entered. Ordering Provider: ISAEL ALVAREZ Report Released Date/Time: Nov 07, 2023 10:08 AM Reporting Lab: [facility] [id number] Performing Lab: [facility] [id number] VIT D 25-OH,TOTAL 70 ng/mL H 12-50 Nov 07, 2023 09:38 AM [facility] VITAMIN A Specimen Type: SERUM Comment: Vitamin supplementation within 24 hours prior to blood draw may affect the accuracy of the results. This test was developed and its analytical performance characteristics have been determined by [employer] [place], [place]. It has not been cleared or approved by the U.S. Food and Drug Administration. This assay has been validated pursuant to the CLIA regulations and is used for clinical purposes. Test Performed by [employer] [place], [address] [place] [address] Devante Meyer M.D., Ph.D., Director of Laboratories , CLIA [id number] Ordering Provider: ISAEL ALVAREZ Report Released Date/Time: Jul 11, 2023 10:23 AM Reporting Lab: [facility] [id number] Performing Lab: [address] VITAMIN A 58 ug/dL 38-98 Nov 07, 2023 09:38 AM [facility] HEMOGLOBIN A1C Specimen Type: [...] Jul 11, 2023 10:23 AM Reporting Lab: [facility] [id number] Performing Lab: [facility] [address] HEMOGLOBIN A1C 6.4 H 4.0-6.0 Oct 09, 2023 08:35 AM [facility] HEMOGLOBIN A1C Specimen Type: BLOOD Comment: Values obtained from A1C measurements can vary. For typical A1C assays, a reported value of 7.0 could actually be between 6.7 and 7.3 if measured by a reference method. A reported value of 9.0 could actually be between 8.7 and 9.3. Ref: [email or web address] [email or web address] Ordering Provider: LYUBOV YEUNG Report Released Date/Time: Aug 29, 2023 04:30 PM Reporting Lab: [facility] [address] Performing Lab: [facility] [address] HEMOGLOBIN A1C 6.4 H 4.0-6.0 Oct 09, 2023 08:35 AM [facility] CBC Specimen Type: BLOOD No comment entered. Ordering Provider: LYUBOV YEUNG Report Released Date/Time: Aug 29, 2023 04:30 PM Reporting Lab: [facility] [address] Performing Lab: [facility] [address] WBC 7.18 10*3/uL 4.0-11.0 RBC 3.94 10*6/uL L 4.6-6.2 HGB 11.7 g/dL L 13.5-17.9 HCT 36.0 L 41-54 MCV 91.4 fL 80-100 MCH 29.7 pg 27-33 MCHC 32.5 g/dL 32.0-37.5 PLT 266 10*3/uL 150-400 MPV 9.7 fL 7.4-10.4 RDW 14.3 11.5-14.5 Oct 09, 2023 08:35 AM [facility] BASIC METABOLIC PANEL+MG Specimen Type: PLASMA No comment entered. Ordering Provider: LYUBOV YEUNG Report Released Date/Time: Aug 29, 2023 04:30 PM Reporting Lab: [facility] [address] Performing Lab: [facility] [address] CREATININE 1.1 mg/dL 0.7-1.2 UREA NITROGEN 22 [...] Height Weight Body Mass Index Source Nov 07, 2023 10:15 AM 97.6 80 118/68 16 94 177.[address] [facility] Social History: Smoking Status (Most [...] 21, 2023 10:30 AM [place]-TO[place]AC[place] FORMER USER [facility] Tobacco Use History This section includes a history of the smoking, or tobacco-related health factors, that were collected on or before the date of the Encounter. The data comes from the [place] facility where the Encounter took place. Date/Time Smoking Status/Tobacco Use Comment [facility] Aug 21, 2023 10:30 AM [place]-TOBACCO QUIT 15 YRS OR MORE [facility] Aug 15, 2022 09:00 AM [place]-TOBACCO FORMER USER [facility] Aug 15, 2022 09:00 AM [place]-TOBACCO [...] USER 7Y OR GREATE R [facility] Encounter Notes: All associated encounter notes This section contains the clinical notes associated to the Encounter. Date/Time Encounter Note(s) Provider Source Nov 13, 2023 04:17 PM ADDENDUM: LOCAL TITLE: Addendum STANDARD TITLE: ADDENDUM DATE OF NOTE: NOV 13, 2023@16:17:19 ENTRY DATE: NOV 13, 2023@16:17:20 AUTHOR: ISAEL ALVAREZ EXP COSIGNER: URGENCY: STATUS: COMPLETED results letter sent. will ask metabolic nurse coordinator here by way of co-sign to please reach out to pt to review. is there something else with D in it besides the 1000 international units which I am discontinuing for now? thanks. /pablo/ ISAEL ALVAREZ MD PHYSICIAN Signed: 11/13/2023 19:58 Receipt Acknowledged By: 11/14/2023 10:46 /es/ MIGUEL ANGEL WHITLOCK, ULYSSES Metabolic Waiter/Waitress Bar --- Original Document --- 11/07/23 METABOLIC CLINIC NOTE: Metabolic/Endocrine Clinic Note Nursing notes reviewed Chief Complaint: 78 year old MALE referred for follow-up evaluation of weight loss and type 2 diabetes mellitus. History of Present Illness: 77 YO M w/ PMHx significant for nora-en-y bypass (2011), T2DM who presents to clinic for follow up. return visit for him, reviewed and relevant [...] diabetes went into remission. Interval history: He continues taking vitamins/supplements since then including calcium, MVI, B12, vit D. He reports that his goal weight is 165-170lbs. He eats 3 meals a day. He was previously snacking with sweets and chocolates but he has stopped doing that as he does not have cravings. He has started grocery shopping and making his own meals. He reports that he drinks soda about 5 times weekly, occasional orange juice, and not much alcohol or water. He is also physically active and goes on walks with his walker. He is satisfied with the progress of his weight loss. 177.7 lbs today from 185 in 09/2023. Diabetes complications: Neuropathy: mild Nephropathy: none Retinopathy: none documented; patient reports slightly blurred vision Medication effects and side effects: semaglutide 0.5 mg weekly, tolerating, benefiting Metformin 500 mg daily Past Medical History: Active problems - Computerized Problem List is the source for the followin. Essential hypertension (SNOMED CT 14295007) 2. Major depressive disorder (SNOMED CT 522873421) 3. Generalized anxiety disorder (SNOMED CT 73527019) 4. Primary Obesity 5. Bronchiectasis (SNOMED CT 89391509) 6. Gastroesophageal reflux disease (SNOMED CT 923327113) 7. Bariatric Surgery Status 8. Cataracts (SNOMED CT 71158154) 9. Hypermetropia/Hyperopia 10. Astigmatism, Unspec 11. Presbyopia 12. Atrial fibrillation (SNOMED CT 85639943) 13. Varicose veins of lower extremity 14. Compulsive gambling 15. Bipolar disorder (SNOMED CT 80467344) 16. Mild cognitive disorder 17. Type 2 diabetes mellitus 18. Long-term current use of anticoagulant 19. Gastritis 20. Dementia Allergies: SULFAMETHOXAZOLE (Feb 07, 2022) EMPAGLIFLOZIN (Jun 06, 2022) Active Outpatient Medications (including Supplies): ACETAMINOPHEN 500MG TAB TAKE ONE TABLET BY MOUTH EVERY 6 ACTIVE HOURS NEEDED FOR PAIN ALBUTEROL 90MCG (CFC-F) 200D ORAL INHL INHALE 2 PUFFS BY ACTIVE INHALATION FOUR TIMES A DAY NEEDED FOR SHORTNESS OF BREATH ARIPIPRAZOLE 20MG TAB TAKE ONE TABLET BY MOUTH EVERY DAY ACTIVE FOR BIPOLAR DISORDER DOSE INCREASED 11-23-22 ATORVASTATIN CALCIUM 10MG TAB TAKE ONE TABLET BY MOUTH AT ACTIVE BEDTIME CHOLECALCIF 25MCG (D3-1,000UNIT) TAB TAKE ONE TABLET BY ACTIVE MOUTH EVERY DAY CYANOCOBALAMIN 1000MCG TAB TAKE ONE TABLET BY MOUTH EVERY ACTIVE DAY FERROUS SULFATE 325MG TAB TAKE ONE TABLET BY MOUTH EVERY ACTIVE DAY IRON DEFICIENCY LIDOCAINE 5% PATCH APPLY 1 PATCH TOPICALLY EVERY DAY FOR ACTIVE UP TO 12 HOURS FOR PAIN MAGNESIUM OXIDE 400MG TAB TAKE TWO TABLETS BY MOUTH EVERY ACTIVE DAY FOR SUPPLEMENTATION METFORMIN HCL 500MG TAB TAKE ONE TABLET BY MOUTH EVERY DAY ACTIVE FOR DIABETES *NOTE:WHOLE TABLETS METOPROLOL SUCCINATE 25MG SA TAB TAKE THREE TABLETS BY ACTIVE MOUTH EVERY DAY FOR HEART AND BLOOD PRESSURE MULTIVIT/OPHTH AREDS2/LUTE/ZEAX CAP/TAB TAKE 1 CAP/TAB BY ACTIVE MOUTH TWICE A DAY WITH MEALS OMEPRAZOLE 40MG EC CAP TAKE ONE CAPSULE BY MOUTH TWICE A ACTIVE DAY ON AN EMPTY STOMACH, AT LEAST 30 MINUTES PRIOR TO A MEAL TO DECREASE STOMACH ACID SEMAGLUTIDE 0.25MG/0.375ML INJ PEN 3ML INJECT 0.5MG UNDER ACTIVE THE SKIN EVERY WEEK DIABETES AND WEIGHT LOSS VENLAFAXINE HCL 150MG 24HR SA CAP TAKE ONE CAPSULE BY ACTIVE MOUTH EVERY DAY MEDICATION RECONCILIATION Outpatient 1. At this visit I have reviewed the medication list, and discussed relevant medications with the patient/surrogate. An updated patient medication list was given to the participant(s). 2. Education on NEW Medication: I have reviewed the medication list for possible drug:drug interactions or contraindications prior to ordering NEW medications during this visit. 3. Patient/surrogate indicated readiness to learn and has been instructed on action, dose, frequency and side effects of the new medication and I noted new medication on participant's copy of the medication list. Physical Exam: Vital Signs: Temp: 97.6 F [36.4 C] (11/07/2023 10:15) B/P: 118/68 (11/07/2023 10:15) Pulse: 80 (11/07/2023 10:15) Ht: 68 in [172.7 cm] (10/09/2023 09:43) Wt: 177.7 lb [80.60 kg] (11/07/2023 10:15) Pain: 0 (10/09/2023 09:43) BMI: 27.1 General: NAD, alert, interactive HEENT: NCAT, eomi, no scleral icterus or proptosis Today's Labs: HGB A1C: 6.4 H Imaging: No new Assessment/Plan: # Obesity s/p Nora-en-y bypass w/ low iron # T2DM - controlled # Elevated vitamin D Patient doing well and is having progressive weight loss. Reduced snacking and is making his own foods. He is also physically active. Vitamin D elevated on 09/2023 labs at 68; patient asymptomatic Plan: - Encouraged to make appointment with the eye clinic for a diabetic eye exam - Continue current medications (Semaglutide 0.5 mg qweekly and metformin 500 mg daily) - Encouraged reduced snacking and incorporating healthier snack options such as fruits and vegetables. - Encouraged abstaining from drinking sugary drinks. - RTC in 4 months with HgbA1c - Repeat vitamin D 25 level - Due for nutritional labs screening in 06/2024. Time spent: 30 min All labs completed at this time were discussed with the patient. Patient was discussed with attending Dr. Alvarez. /pablo/ ARABELLA VANESSA JR RESIDENT PHYSICIAN Signed: 11/07/2023 11:24 Receipt Acknowledged By: 11/13/2023 19:57 /pablo/ ISAEL ALVAREZ MD PHYSICIAN 11/14/2023 ADDENDUM STATUS: COMPLETED Attempted to contact to f/u on results letter from Dr. Alvarez, no answer. Left a message with direct number to call when he is available. /pablo/ MIGUEL ANGEL WHITLOCK RN Metabolic Waiter/Waitress Bar Signed: 11/14/2023 10:47 ISAEL ALVAREZ [facility] Nov 07, 2023 11:10 AM ENDOCRINOLOGY ATTENDING NOTE: LOCAL TITLE: METABOLIC CLINIC NOTE STANDARD TITLE: ENDOCRINOLOGY ATTENDING NOTE DATE OF NOTE: NOV 07, 2023@11:10 ENTRY DATE: NOV 07, 2023@11:10:37 AUTHOR: ARABELLA VANESSA JR COSIGNER: URGENCY: STATUS: COMPLETED METABOLIC CLINIC NOTE Has ADDENDA Metabolic/Endocrine Clinic Note Nursing notes reviewed Chief Complaint: 78 year old MALE referred for follow-up evaluation of weight loss and type 2 diabetes mellitus. History of Present Illness: 77 YO M w/ PMHx significant for nora-en-y bypass (2011), T2DM who presents to clinic for follow up. return visit for him, reviewed and relevant [...] diabetes went into remission. Interval history: He continues taking vitamins/supplements since then including calcium, MVI, B12, vit D. He reports that his goal weight is 165-170lbs. He eats 3 meals a day. He was previously snacking with sweets and chocolates but he has stopped doing that as he does not have cravings. He has started grocery shopping and making his own meals. He reports that he drinks soda about 5 times weekly, occasional orange juice, and not much alcohol or water. He is also physically active and goes on walks with his walker. He is satisfied with the progress of his weight loss. 177.7 lbs today from 185 in 09/2023. Diabetes complications: Neuropathy: mild Nephropathy: none Retinopathy: none documented; patient reports slightly blurred vision Medication effects and side effects: semaglutide 0.5 mg weekly, tolerating, benefiting Metformin 500 mg daily Past Medical History: Active problems - Computerized Problem List is the source for the followin. Essential hypertension (SNOMED CT 10292417) 2. Major depressive disorder (SNOMED CT 753834940) 3. Generalized anxiety disorder (SNOMED CT 53859474) 4. Primary Obesity 5. Bronchiectasis (SNOMED CT 32551220) 6. Gastroesophageal reflux disease (SNOMED CT 956950639) 7. Bariatric Surgery Status 8. Cataracts (SNOMED CT 64772770) 9. Hypermetropia/Hyperopia 10. Astigmatism, Unspec 11. Presbyopia 12. Atrial fibrillation (SNOMED CT 28498375) 13. Varicose veins of lower extremity 14. Compulsive gambling 15. Bipolar disorder (SNOMED CT 18548341) 16. Mild cognitive disorder 17. Type 2 diabetes mellitus 18. Long-term current use of anticoagulant 19. Gastritis 20. Dementia Allergies: SULFAMETHOXAZOLE (Feb 07, 2022) EMPAGLIFLOZIN (Jun 06, 2022) Active Outpatient Medications (including Supplies): ACETAMINOPHEN 500MG TAB TAKE ONE TABLET BY MOUTH EVERY 6 ACTIVE HOURS NEEDED FOR PAIN ALBUTEROL 90MCG (CFC-F) 200D ORAL INHL INHALE 2 PUFFS BY ACTIVE INHALATION FOUR TIMES A DAY NEEDED FOR SHORTNESS OF BREATH ARIPIPRAZOLE 20MG TAB TAKE ONE TABLET BY MOUTH EVERY DAY ACTIVE FOR BIPOLAR DISORDER DOSE INCREASED 11-23-22 ATORVASTATIN CALCIUM 10MG TAB TAKE ONE TABLET BY MOUTH AT ACTIVE BEDTIME CHOLECALCIF 25MCG (D3-1,000UNIT) TAB TAKE ONE TABLET BY ACTIVE MOUTH EVERY DAY CYANOCOBALAMIN 1000MCG TAB TAKE ONE TABLET BY MOUTH EVERY ACTIVE DAY FERROUS SULFATE 325MG TAB TAKE ONE TABLET BY MOUTH EVERY ACTIVE DAY IRON DEFICIENCY LIDOCAINE 5% PATCH APPLY 1 PATCH TOPICALLY EVERY DAY FOR ACTIVE UP TO 12 HOURS FOR PAIN MAGNESIUM OXIDE 400MG TAB TAKE TWO TABLETS BY MOUTH EVERY ACTIVE DAY FOR SUPPLEMENTATION METFORMIN HCL 500MG TAB TAKE ONE TABLET BY MOUTH EVERY DAY ACTIVE FOR DIABETES *NOTE:WHOLE TABLETS METOPROLOL SUCCINATE 25MG SA TAB TAKE THREE TABLETS BY ACTIVE MOUTH EVERY DAY FOR HEART AND BLOOD PRESSURE MULTIVIT/OPHTH AREDS2/LUTE/ZEAX CAP/TAB TAKE 1 CAP/TAB BY ACTIVE MOUTH TWICE A DAY WITH MEALS OMEPRAZOLE 40MG EC CAP TAKE ONE CAPSULE BY MOUTH TWICE A ACTIVE DAY ON AN EMPTY STOMACH, AT LEAST 30 MINUTES PRIOR TO A MEAL TO DECREASE STOMACH ACID SEMAGLUTIDE 0.25MG/0.375ML INJ PEN 3ML INJECT 0.5MG UNDER ACTIVE THE SKIN EVERY WEEK DIABETES AND WEIGHT LOSS VENLAFAXINE HCL 150MG 24HR SA CAP TAKE ONE CAPSULE BY ACTIVE MOUTH EVERY DAY MEDICATION RECONCILIATION Outpatient 1. At this visit I have reviewed the medication list, and discussed relevant medications with the patient/surrogate. An updated patient medication list was given to the participant(s). 2. Education on NEW Medication: I have reviewed the medication list for possible drug:drug interactions or contraindications prior to ordering NEW medications during this visit. 3. Patient/surrogate indicated readiness to learn and has been instructed on action, dose, frequency and side effects of the new medication and I noted new medication on participant's copy of the medication list. Physical Exam: Vital Signs: Temp: 97.6 F [36.4 C] (11/07/2023 10:15) B/P: 118/68 (11/07/2023 10:15) Pulse: 80 (11/07/2023 10:15) Ht: 68 in [172.7 cm] (10/09/2023 09:43) Wt: 177.7 lb [80.60 kg] (11/07/2023 10:15) Pain: 0 (10/09/2023 09:43) BMI: 27.1 General: NAD, alert, interactive HEENT: NCAT, eomi, no scleral icterus or proptosis Today's Labs: HGB A1C: 6.4 H Imaging: No new Assessment/Plan: # Obesity s/p Nora-en-y bypass w/ low iron # T2DM - controlled # Elevated vitamin D Patient doing well and is having progressive weight loss. Reduced snacking and is making his own foods. He is also physically active. Vitamin D elevated on 09/2023 labs at 68; patient asymptomatic Plan: - Encouraged to make appointment with the eye clinic for a diabetic eye exam - Continue current medications (Semaglutide 0.5 mg qweekly and metformin 500 mg daily) - Encouraged reduced snacking and incorporating healthier snack options such as fruits and vegetables. - Encouraged abstaining from drinking sugary drinks. - RTC in 4 months with HgbA1c - Repeat vitamin D 25 level - Due for nutritional labs screening in 06/2024. Time spent: 30 min All labs completed at this time were discussed with the patient. Patient was discussed with attending Dr. Alvarez. /pablo/ ARABELLA VANESSA JR RESIDENT PHYSICIAN Signed: 11/07/2023 11:24 Receipt Acknowledged By: 11/13/2023 19:57 /pablo/ ISAEL ALVAREZ MD PHYSICIAN 11/13/2023 ADDENDUM STATUS: COMPLETED results letter sent. will ask metabolic nurse coordinator here by way of co-sign to please reach out to pt to review. is there something else with D in it besides the 1000 international units which I am discontinuing for now? thanks. /pablo/ ISAEL ALVAREZ MD PHYSICIAN Signed: 11/13/2023 19:58 Receipt Acknowledged By: 11/14/2023 10:46 /pablo/ MIGUEL ANGEL WHITLOCK RN Metabolic Waiter/Waitress Bar 11/14/2023 ADDENDUM STATUS: COMPLETED Attempted to contact to f/u on results letter from Dr. Alvarez, no answer. Left a message with direct number to call when he is available. /aneesh WHITLOCK RN Metabolic Waiter/Waitress Bar Signed: 11/14/2023 10:47 ARABELLA VANESSA JR [facility] Nov 07, 2023 11:10 AM LETTERS: LOCAL TITLE: FOLLOW UP RESULTS LETTER STANDARD TITLE: LETTERS DATE OF NOTE: NOV 07, 2023@11:10 ENTRY DATE: NOV 07, 2023@11:10:52 AUTHOR: ISAEL ALVAREZ EXP COSIGNER: URGENCY: STATUS: COMPLETED [facility] [address] [place] [address] Oct JUAN JONGREN [address] [facility] [address] Dear : I am writing to inform you of the results of the tests you had done at the [facility]. The tests below were performed and are satisfactory unless otherwise noted. The date and time of the test as well as the normal range is listed if the actual value of the test is included. Comments: Metabolic results--with these results the 25OH vitamin D level is elevated--we will follow up with you. We can discontinue the 1000 international unit supplement but you can continue current doses of other D supplements you might be taking. We will review with you. We can follow up further at your next visit. Please let us know if you have any interim questions. Collection time: Nov 07, 2023@09:38 Test Name Result Units Range --------- ------ ----- ----- HEMOGLOBIN A1C 6.4 H % 4.0 - 6.0 VIT D 25-OH,TOTAL 70 H ng/mL 12 - 50 VITAMIN A 58 mcg/dL 38 - 98 HEMOGLOBIN A1C 6.4 H % 4.0 - 6.0 If you have any further questions or problems, please contact our nursing staff or me at the following number: [phone]. Sincerely, ISAEL ALVAREZ MD PHYSICIAN ISAEL ALVAREZ [facility] Nov 07, 2023 10:17 AM INTERNAL MEDICINE OUTPATIENT NOTE: LOCAL TITLE: MEDICINE CLINIC NURSING NOTE STANDARD TITLE: INTERNAL MEDICINE OUTPATIENT NOTE DATE OF NOTE: NOV 07, 2023@10:17 ENTRY DATE: NOV 07, 2023@10:17:32 AUTHOR: JACKI BOSS EXP COSIGNER: URGENCY: STATUS: COMPLETED TYPE OF VISIT: Appointment Check In Type of appointment: In-person appointment REASON FOR VISIT: scheduled visit ALLERGIES: SULFAMETHOXAZOLE (Feb 07, 2022) EMPAGLIFLOZIN (Jun 06, 2022) VITAL SIGNS: Blood Pressure: 118/68 (11/07/2023 10:15) Pulse: 80 (11/07/2023 10:15) Respiration: 16 (11/07/2023 10:15) Temperature: 97.6 F [36.4 C] (11/07/2023 10:15) Weight: 177.7 lb [80.60 kg] (11/07/2023 10:15) Height: 68 in [172.7 cm] (10/09/2023 09:43) BMI: 27.1 O2 Sat: 94% (11/07/2023 10:15) Pain: 0 (10/09/2023 09:43) PAIN SCREEN: Patient is not having significant pain that they wish to discuss with their provider today. MEDICATION Over the Counter/Herbal Medications: The patient states that they take some outside medications and/or herbals. /pablo/ JACKI BOSS LPN LPN Signed: 11/07/2023 10:18 JACKI BOSS [facility]
--- OUTSIDE RECORDS SUMMARY | 2024-07-06 16:27 | XMS_ITS | Encounter Summary ---
Author Name [facility] [place] [facility] [place] Address [address] [place] [address] Care Team Providers Care Application Development Intern Name Role Phone MARIUSZ PHILLIPS Primary Care [...] PART A Sep 26, 2012 PART A [id number] [facility] [phone] JUAN THOMPSON JR PATIENT MEDICARE ([place]NR) MEDICARE (M) PART B Sep 26, 2012 PART B [id number] [phone] JUAN THOMPSON JR PATIENT Selected Encounter This section includes the information on record at [place] for the Encounter. Date/Time Encounter Type Encounter Description Reason Pro vider Source December 05, 2023 09:30 AM OFFICE O/P EST MOD 30 MIN PSYCHOGERIATRIC - INDIVIDUAL ICD-10-CM F31.81 Bipolar II disorder JOSE HONEYCUTT [facility] Encounter Template Text not used by [place] Assessments - Encounter Diagnoses This section includes the primary and secondary diagnoses documented for the Encounter. Date/Time Primary/Secondary Diagnosis Diagnosis Name Provider Source December 05, 2023 12:32 PM PRIMARY Bipolar II disorder JANETTE HONEYCUTT [facility] Plan of Treatment: Future Appointments (+ 6 months) and Future Tests (+/- 45 days) The Plan of Treatment section includes future care activities for the patient from all [place] [facility]. This section includes future appointments and future orders which are active, pending or scheduled. Future Appointments This section includes appointments that were scheduled to occur 6 months from the date of the Encounter, up to a maximum of 20 appointments. The data comes from all [place] treatment facilities. Appointment Date/Time Appointment Type Appointme nt Facility Name Feb 07, 2024 11:00 AM [facility] [place] [facility] Feb 07, 2024 11:30 AM AM[place] [place] [facility] Feb 07, 2024 12:30 PM AM[facility]UL[facility]ORY - NONE [place] [facility] Feb 18, 2024 08:00 AM [place] [facility] Mar 05, 2024 07:30 AM [place] - [place]IC[place] [facility] Mar 05, 2024 08:30 AM [place] [place]IC[place] [facility] Mar 05, 2024 10:00 AM AM[place]UL[facility]ORY - [place]IC[place] [facility] Mar 09, 2024 08:45 AM AMBULATORY - [place]GERY [place] [facility] Mar 16, 2024 09:00 AM AM[place]ULATORY - [place]IC[place] [facility] Mar 16, 2024 10:15 AM AMBULATORY - NONE [place] [facility] Mar 27, 2024 07:00 AM AMBULATORY - NONE [place] [facility] Mar 31, 2024 07:00 AM AMBULATORY - NONE [place] [facility] Apr 20, 2024 08:00 AM AM[facility]ULATORY - NONE [place] [facility] Apr 20, 2024 09:30 AM [place] [facility] Apr 22, 2024 09:00 AM AMBULATORY - NONE [place] [facility] Apr 22, 2024 10:00 AM AM[place]ORY - [place]ICINE [place] [facility] Apr 29, 2024 10:30 AM AMBULATORY - SURGERY [place] [facility] May 13, 2024 12:00 PM AMBULATORY - NONE [facility] May 13, 2024 01:00 PM AMBULATORY - MEDICINE [facility] May 20, 2024 09:45 AM AMBULATORY - NONE [facility] Lab Results: +/- 30 [...] Nov 07, 2023 10:08 AM Reporting Lab: [facility] [id number] Performing Lab: [facility] [id number] VIT D 25-OH,TOTAL 70 ng/mL H 12-50 Nov 07, 2023 09:38 AM [facility] VITAMIN A Specimen Type: SERUM Comment: Vitamin supplementation within 24 hours prior to blood draw may affect the accuracy of the results. This test was developed and its analytical performance characteristics have been determined by [employer] [place], [place]. It has not been cleared or approved by the U.S. Food and Drug Administration. This assay has been validated pursuant to the CLIA regulations and is used for clinical purposes. Test Performed by [facility], [employer] [facility], [address] [place] [address] Devante Meyer M.D., Ph.D., Director of Laboratories , CLIA [id number] Ordering Provider: ISAEL ALVAREZ Report Released Date/Time: Jul 11, 2023 10:23 AM Reporting Lab: [facility] [id number] Performing Lab: [address] VITAMIN A 58 ug/dL 38-98 Nov [...] Jul 11, 2023 10:23 AM Reporting Lab: [facility] [id number] Performing Lab: [facility] [id number] HEMOGLOBIN A1C 6.4 H 4.0-6.0 Social History: Smoking Status (Most [...] FORMER TOBACCO USER 7Y OR [facility] Encounter Notes: All associated encounter notes This section contains the clinical notes associated to the Encounter. Date/Time Encounter Note(s) Provider Source December 05, 2023 09:35 AM PSYCHIATRY E & M NOTE: LOCAL TITLE: PSYCHIATRIC EVALUATION & MANAGEMENT STANDARD TITLE: PSYCHIATRY E & M NOTE DATE OF NOTE: DECEMBER 05, 2023@09:35 ENTRY DATE: DECEMBER 05, 2023@09:35:34 AUTHOR: LORETA HONEYCUTT COSIGNER: URGENCY: STATUS: COMPLETED PSYCHIATRIC EVALUATION AND MANAGEMENT FOLLOW UP VISIT INTERVAL HISTORY: Patient had neuro appt 11/20/23, no tremors noted but had reduced blinking, reduced smell and masked facies , plan for Nikolay scan to evaluate further for Parkinsons Disease, not started on any meds for PD. SUBJECTIVE: Patient reports mood has been stable. He has pain in joints. States he has been waiting to have a call to go forward with a hip surgery. Reports he has not felt overwhelmed by depression at all recently. Has not noticed any negative change in mood since discontinuing buprpion. Reports no hallucinations in the past several months.Reports that somnolence/ falling asleep during the day has decreased, has been weeks since he fell asleep while holding his coffee. Denies recent fall. General mood hasn't been down to the point where he can't get up. He has an [facility] worker who comes once a week, and they go on walks or do activities which is helpful. Appetite is not raging' but adequate. He is taking ozempic and almost at his goal weight. Sleep: tends to stay up late, wakes up 2-3x to go to bathroom, apart from that he is sleeping ok and feeling well rested. SUBSTANCE USE: Denies current use of ETOH, cannabis, stimulants, or other substances MENTAL STATUS EXAM: General: Cooperative, no acute distress, slow gait, uses walker Eye Contact: Good Psychomotor Activity: WNL (Within normal limits) Abnormal Involuntary Movements: None Speech: Regular rate and rhythm, soft at baseline Mood: Euthymic Affect: somewhat blunted, appropriate, mood congruent Thought Process: mildly tangential though logical Thought Content: Denies SI (Suicidal Ideation), HI(Homicidal [...] cognitive domains. Etiology is certainly multifactorial. 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 Given his complex [...] as Alzheimer's disease is less likely. The Chester's presentation is complex and symptoms may persist [...] have now appeared to improve. History of chronic visual hallucinations intermittent VH of his parents but repports no VH in the past 2-3 months. Mood is stable and believes depression has improved since increase in aripiprazole. Denies any command type auditory hallucinations, suicidal ideation, homicidal ideation, manic or hypomanic symptoms. Patient with multiple mechanical falls ~Aug 2023, likely multfactorial, concern for Parkinsonsim, evaluated by neurology 10/2023 and has upcoming Nikolay scan to clarify diagnosis. Recently discontinued bupropion to reduce polypharmacy (bupropion strong CYP2D6 inhibitor may increase levels of aripriprazole and increase risk of adverse side effects including dizziness/falls). Mood stable and psychotic symptoms remain resolved. Also reports less daytime somnolence lately. Discussed that aripriprazole my contribute to Parkinsonism and falls though patient with very mild possible PD symptoms on recent neuro assessment (no tremors, masked facies, reduced blinking.) Discussed we May consider decreasing aripriprazole to lowest effective dose in the future, however it is likely important in mood stabilization and has helped resolve psychotic symptoms of delusions. DIAGNOSIS: Bipolar Disorder, most recent episode depressed,mild Psychosis, unspecified Major Neurocognitive Disorder, multifactoral etiology (vascular , bipolar disorder, h/o delirium, sleep dysfunction) TREATMENT PLAN: -Continue Aripiprazole 20 mg po daily -Continue Venlafaxine 150 mg po daily. -Metabolic Lab monitoring: [...] information in medical record, and care coordination: 30 minutes /pablo/ LORETA HONEYCUTT DO STAFF PSYCHIATRIST Signed: 12/05/2023 12:32 LORETA HONEYCUTT [facility]
--- OUTSIDE RECORDS SUMMARY | 2024-07-06 16:27 | XMS_ITS | Encounter Summary ---
Author Name [facility] [place] [facility] [place] Address [address] [place] [address] Care Team Providers Care Sap Project Manager Name Role Phone MARIUSZ PHILLIPS Primary Care [...] PART A Sep 26, 2012 PART A [id number] [facility] [phone] JUAN THOMPSON JR PATIENT MEDICARE ([place]NR) MEDICARE (M) PART B Sep 26, 2012 PART B [id number] JUAN THOMPSON JR PATIENT Selected Encounter This section includes the information on record at [place] for the Encounter. Date/Time Encounter Type Encounter Description Reason Provider Source Nov 20, 2023 09:00 AM OFF/OP CNSLTJ NEW/EST MOD 40 NEUROLOGY ICD-10-CM G20.C Parkinsonism, unspecified APRIL DUNN [facility] Encounter Template Text not used by [place] Assessments - Encounter Diagnoses This section includes the primary and secondary diagnoses documented for the Encounter. Date/Time Primary/Secondary Diagnosis Diagnosis Name Provider Source December 02, 2023 05:20 PM PRIMARY Parkinsonism, unspecified APRIL DUNN [facility] Plan of Treatment: Future Appointments (+ [...] Date/Time Appointment Type Appointme nt Facility Name December 05, 2023 09:30 AM AM[place]UL[place]ORY [place] [facility] Feb 07, 2024 11:00 AM [place]ORY - NONE [place] [facility] Feb 07, 2024 11:30 AM [place] [facility] Feb 07, 2024 12:30 PM AMBULATORY - NONE [place] [facility] Feb 18, 2024 08:00 AM [place]IC[place] [facility] Mar 05, 2024 07:30 AM [place] [place]IC[place] [facility] Mar 05, 2024 08:30 AM [place] [place]IC[place] [facility] Mar 05, 2024 10:00 AM [place]IC[place] [facility] Mar 09, 2024 08:45 AM [place] - [place]GERY [place] [facility] Mar 16, 2024 09:00 AM [place] - [place]IC[place] [facility] Mar 16, 2024 10:15 AM AMBULATORY - NONE [place] [facility] Mar 27, 2024 07:00 AM AMBULATORY - NONE [place] [facility] Mar 31, 2024 07:00 AM AMBULATORY - NONE [place] [facility] Apr 20, 2024 08:00 AM AMBULATORY - NONE [place] [facility] Apr 20, 2024 09:30 AM [place] [facility] Apr 22, 2024 09:00 AM AMBULATORY - NONE [place] [facility] Apr 22, 2024 10:00 AM [place]IC[place] [facility] Apr 29, 2024 10:30 AM AMBUL[place]ORY - [place] [facility] May 13, 2024 12:00 PM AMBULATORY - NONE [facility] May 13, 2024 01:00 PM AMBULATORY - MEDICINE [facility] Lab Results: +/- 30 days [...] Range Comment Nov 07, 2023 11:14 AM [facility] VIT D 25-OH,TOTAL Specimen Type: SERUM No comment entered. Ordering Provider: ISAEL ALVAREZ Report Released Date/Time: Nov 07, 2023 10:08 AM Reporting Lab: [facility] [id number] Performing Lab: [facility] [id number] VIT D 25-OH,TOTAL 70 ng/mL H 12-50 Nov 07, 2023 09:38 AM [facility] VITAMIN A Specimen Type: SERUM Comment: Vitamin supplementation within 24 hours prior to blood draw may affect the accuracy of the results. This test was developed and its analytical performance characteristics have been determined by [employer] [place], [place]. It has not been cleared or approved by the U.S. Food and Drug Administration. This assay has been validated pursuant to the CLIA regulations and is used for clinical purposes. Test Performed by [facility], [employer] [facility], [address] [place] [address] Devante Meyer M.D., Ph.D., Director of Laboratories , CLIA [id number] Ordering Provider: ISAEL ALVAREZ Report Released Date/Time: Jul 11, 2023 10:23 AM Reporting Lab: [facility] [id number] Performing Lab: [address] VITAMIN A 58 ug/dL 38-98 Nov 07, 2023 09:38 AM [facility] HEMOGLOBIN A1C Specimen Type: BLOOD Comment: [...] Jul 11, 2023 10:23 AM Reporting Lab: [facility] [id number] Performing Lab: [facility] [id number] HEMOGLOBIN A1C 6.4 H 4.0-6.0 Vital Signs: All taken on the encounter date This section contains inpatient and outpatient Vital Signs collected on the date of the Encounter. Date/Time Temperature Pulse Blood Pressure Respiratory Rate SP02 Pain Height Weight Body Mass Index Source Nov 20, 2023 08:52 AM 98.5 63 108/[address] [facility] Social History: Smoking Status [...] 21, 2023 10:30 AM [place] FORMER USER [facility] Tobacco Use History This section includes a history of the smoking, or tobacco-related health factors, that were collected on or before the date of the Encounter. The data comes from the [place] facility where the Encounter took place. Date/Time Smoking Status/Tobacco Use Comment F acility Aug 21, 2023 10:30 AM [place]-TOBACCO QUIT 15 YRS OR MORE [facility] Aug 15, 2022 09:00 AM [place]-TOBACCO FORMER USER [facility] Aug 15, 2022 09:00 AM VA-TOBACCO QUIT 15 YRS OR MORE [facility] Aug 21, 2021 01:00 PM VA-TOBACCO FORMER USER [facility] Aug 21, 2021 01:00 PM VA-TOBACCO QUIT 15 YRS OR MORE [facility] Jul 09, 2018 08:58 AM [place]-TOBACCO FORMER USER [facility] Jul 09, 2018 08:58 AM [place]-TOBACCO QUIT 15 YRS OR MORE [facility] Jul 18, 2017 09:58 AM FORMER TOBACCO USER 7Y OR [facility] Aug 14, 2016 10:59 AM FORMER TOBACCO USER 7Y OR [facility] Jun 29, 2015 02:03 PM FORMER TOBACCO USER 7Y OR [facility] Jan 06, 2014 03:04 PM FORMER TOBACCO USER 7Y OR [facility] Jan 04, 2012 08:36 AM FORMER TOBACCO USER 7Y OR [facility] Encounter Notes: All associated encounter notes This section contains the clinical notes associated to the Encounter. Date/Time Encounter Note(s) Provider Source Nov 20, 2023 09:00 AM NEUROLOGY CONSULT: LOCAL TITLE: NEUROLOGY CONSULT STANDARD TITLE: NEUROLOGY CONSULT DATE OF NOTE: NOV 20, 2023@09:00 ENTRY DATE: DECEMBER 02, 2023@17:19:22 AUTHOR: APRIL DUNN COSIGNER: URGENCY: STATUS: COMPLETED Reason for consultation: Patient with history of shuffling gait, difficulty turning, hypophonia, fine resting tremor and jaw. Evaluate for drug-induced parkinsonism versus other movement disorder. History of present illness: The patient is a 78-year-old man who reports changes over the last few years. He has noted a cold sensation in his lower extremities which he believes is neuropathy. He is also been bothered by hip and back problems and pain in the bilateral knees. He reports stiffness in his low back for which she uses lidocaine patches. The patient notices that its more difficult to project when he is speaking. He has had some difficulty with swallowing and food getting stuck in particular. He reports liquids passed with no trouble. He notes a loss of sense of taste but denies any loss of sense of smell. He reports this loss of taste developed when he caught COVID early in the COVID-19 pandemic. He denies any tremor. He is not had any falls. He does report excessive somnolence and reports that he is falling asleep with a coffee cup in his hand around 100 times in the last year. Past medical history: 1. Type 2 diabetes 2. Atrial fibrillation 3. Peripheral neuropathy 4. Dementia 5. Gastroesophageal reflux disease 6. Anticoagulation 7. Bipolar disorder 8. Bronchiectasis 9. Cataracts 10. Major depressive disorder 11. Generalized anxiety disorder 12. Compulsive gambling 13. History of Ina-en-Y gastric bypass Social history: Patient lives at [address] [place] [address]. He quit tobacco 30 years ago. He drank alcohol heavily for 10 years but has now only drinks occasionally. Family history: No history of neurological conditions in the family. Review of systems: A full 10 point review of systems was negative except as noted in the history of present illness. Mental status: The patient is alert and oriented x3. Speech and language are normal. 5 out of 5 serial sevens. 3 out of 3 delayed recall. Cranial nerves: Patient has a markedly decreased blink rate with masklike facies and hypophonia. Otherwise cranial nerves II through XII are intact including funduscopic examination. Motor: Normal tone and bulk throughout. Strength is full 5 out of 5 in bilateral upper and lower extremities in proximal and distal muscles. Reflexes: 2+ out of 4 in bilateral biceps, triceps, brachioradialis, patella and Achilles. Coordination: Normal gwqnkc-dx-lylq testing and rapid alternating movements. Sensation: Pinprick sensation is intact in all four distal extremities. Gait: He takes short somewhat shuffling steps. Multiple steps on turns. Impression and plan: 78-year-old man with a history of parkinsonism. Notably he has decreased blink rate and masklike facies. He does endorse some changes to taste but denies signs of smell changes. I will refer the patient for a DaTscan to evaluate further for idiopathic Parkinson's disease. I will plan of the patient return to clinic in 3 months time for further follow-up. /pablo/ APRIL DUNN STAFF NEUROLOGIST Signed: 12/02/2023 17:20 APRIL DUNN [facility] Nov 20, 2023 08:58 AM NEUROLOGY NURSING OUTPATIENT NOTE: LOCAL TITLE: NEUROLOGY CLINIC NURSING NOTE STANDARD TITLE: NEUROLOGY NURSING OUTPATIENT NOTE DATE OF NOTE: NOV 20, 2023@08:58 ENTRY DATE: NOV 20, 2023@08:58:16 AUTHOR: MARY GRACE PACHECO COSIGNER: URGENCY: STATUS: COMPLETED Type of visit: Appointment Check In Reason for Visit: CONSULT Vital Signs: Blood Pressure: 108/72 (11/20/2023 08:52) Pulse: 63 (11/20/2023 08:52) Respiration: 16 (11/20/2023 08:52) Temperature: 98.5 F [36.9 C] (11/20/2023 08:52) Weight: 177.7 lb [80.60 kg] (11/07/2023 10:15) Height: 68 in [172.7 cm] (10/09/2023 09:43) BMI: 27.1 Pain: 8 (11/20/2023 08:52) Allergies: SULFAMETHOXAZOLE (Feb 07, 2022) EMPAGLIFLOZIN (Jun 06, 2022) Medications: Active Outpatient Medications and Supplies: Active Outpatient Medications (including Supplies): Active Outpatient Medications Status 1) ACETAMINOPHEN 500MG TAB TAKE ONE TABLET BY MOUTH ACTIVE EVERY 6 HOURS NEEDED FOR PAIN 2) ALBUTEROL 90MCG (CFC-F) 200D ORAL INHL INHALE 2 PUFFS ACTIVE BY INHALATION FOUR TIMES A DAY NEEDED FOR SHORTNESS OF BREATH 3) ARIPIPRAZOLE 20MG TAB TAKE ONE TABLET BY MOUTH EVERY ACTIVE DAY FOR BIPOLAR DISORDER DOSE INCREASED 11-23-22 4) ATORVASTATIN CALCIUM 10MG TAB TAKE ONE TABLET BY ACTIVE MOUTH AT BEDTIME 5) CALCIUM 200MG (CA CITRATE-950MG) TAB TAKE TWO TABLETS ACTIVE BY MOUTH TWICE A DAY FOR CALCIUM SUPPLEMENT 6) CYANOCOBALAMIN 1000MCG TAB TAKE ONE TABLET BY MOUTH ACTIVE EVERY DAY 7) DICLOFENAC NA 1% TOP GEL APPLY 4 GRAMS TOPICALLY FOUR ACTIVE TIMES A DAY NEEDED TO AFFECTED AREA FOR PAIN 8) LIDOCAINE 5% PATCH APPLY 1 PATCH TOPICALLY EVERY DAY ACTIVE FOR UP TO 12 HOURS FOR PAIN 9) MAGNESIUM OXIDE 400MG TAB TAKE TWO TABLETS BY MOUTH ACTIVE EVERY DAY FOR SUPPLEMENTATION 10) METFORMIN HCL 500MG TAB TAKE ONE TABLET BY MOUTH ACTIVE EVERY DAY FOR DIABETES *NOTE:WHOLE TABLETS 11) METOPROLOL SUCCINATE 25MG SA TAB TAKE THREE TABLETS ACTIVE BY MOUTH EVERY DAY FOR HEART AND BLOOD PRESSURE 12) MULTIVIT/OPHTH AREDS2/LUTE/ZEAX CAP/TAB TAKE 1 ACTIVE CAP/TAB BY MOUTH TWICE A DAY WITH MEALS 13) OMEPRAZOLE 40MG EC CAP TAKE ONE CAPSULE BY MOUTH ACTIVE TWICE A DAY ON AN EMPTY STOMACH, AT LEAST 30 MINUTES PRIOR TO A MEAL TO DECREASE STOMACH ACID 14) VENLAFAXINE HCL 150MG 24HR SA CAP TAKE ONE CAPSULE BY ACTIVE MOUTH EVERY DAY Patient reports the following changes regarding the current pharmacy list of medications: PREVOGEN QD The above medication list confirmed with patient. A copy of the above medication list given to the MD for review and update. Provider will give printed copy of medication list to patient with any changes documented on printed medication list. /pablo/ MARY GRACE PACHECO LPN LPN Signed: 11/20/2023 08:59 MARY GRACE PACHECO [facility]
--- OUTSIDE RECORDS SUMMARY | 2024-07-06 16:27 | XMS_ITS | Encounter Summary ---
Author Name [facility] [place] Organization [facility] [place] Address [address] [facility] [place] [address] Care Team Providers Care Direct Service Worker Name Role Phone MARIUSZ PHILLIPS Primary Care [...] PART A Sep 26, 2012 PART A [id number] [phone] JUAN THOMPSON JR PATIENT MEDICARE (WNR) MEDICARE (M) PART B Sep 26, 2012 PART B [id number] JUAN THOMPSON JR PATIENT Selected Encounter This section includes the information on record at [place] for the Encounter. Date/Time Encounter Type Encounter Description Reason Pro vider Source Feb 19, 2024 09:00 AM Outpatient Encounter NEUROLOGY IHE Encounter Template Text not used by [place] Plan of Treatment: Future Appointments (+ 6 months) and Future Tests (+/- 45 days) The Plan of Treatment section includes future care activities for the patient from all [place] [facility] This section includes future appointments and future orders which are active, pending or scheduled. Future Appointments This section includes appointments that were scheduled to occur 6 months from the date of the Encounter, up to a maximum of 20 appointments. The data comes from all [facility]. Appointment Date/Time Appointment Type Appointme nt Facility Name Mar 05, 2024 07:30 AM [place] [facility] Mar 05, 2024 08:30 AM [place] [facility] Mar 05, 2024 10:00 AM [place] [facility] Mar 09, 2024 08:45 AM [place] [facility] Mar 16, 2024 09:00 AM [place] [facility] Mar 16, 2024 10:15 AM AM[place]ORY [place]ONE [place] [facility] Mar 27, 2024 07:00 AM [place]ONE [place] [facility] Mar 31, 2024 07:00 AM [place] [facility] Apr 20, 2024 08:00 AM [place] [facility] Apr 20, 2024 09:30 AM [place] [facility] Apr 22, 2024 09:00 AM [place] [facility] Apr 22, 2024 10:00 AM [place] [facility] Apr 29, 2024 10:30 AM [place] [facility] May 13, 2024 12:00 PM AM[place]ORY [place]ONE [place] [facility] May 13, 2024 01:00 PM [place] [facility] May 20, 2024 09:45 AM [place]ONE [place] [facility] May 26, 2024 09:15 AM [place] [facility] Jun 03, 2024 10:00 AM [place] [facility] Jun 04, 2024 09:30 AM AM[place] [facility] Jun 05, 2024 01:30 PM [facility] Active, Pending, and Scheduled Orders This section includes a listing of several types of active, pending, and scheduled orders, including clinic medications orders, diagnostic test orders, procedure orders and consult orders; where the start date of the order is 45 days before the date of the Encounter or 45 days after the date of theEncounter. The data comes from all [place] treatment facilities. Test Date/Time Test Type Test Details Facility Name Mar 18, 2024 05:05 PM Consult Order CARDIAC EC HO OUTPT-ALL SITES Cons Emergency Management Specialist's Choice [facility] Lab Results: +/- 30 days of the encounter This section includes the Chemistry and Hematology Lab Results on record with [place] for the patient. Radiology Reports and Pathology Reports are provided separately, in subsequent sections. Lab Results This section contains the Chemistry/Hematology Results that were resulted 30 days before or 30 daysafter the date of the Encounter. Date/Time Source Result Type Result - Unit Interpretation Reference Range Comment Mar 05, 2024 09:55 AM [facility] VITAMIN B-1,BLOOD Specimen Type: BLOOD Comment: Vitamin supplementation within 24 hours prior to blood draw may affect the accuracy of the results. This test was developed and its analytical performance characteristics have been determined by [email or web address] [place], [place]. It has not been cleared or approved by the U.S. Food and Drug Administration. This assay has been validated pursuant to the CLIA regulations and is used for clinical purposes. Test Performed by [employer], [email or web address] [place], [address] [place] [address] Devante Meyer M.D., Ph.D., Director of Laboratories , CLIA [id number] Ordering Provider: INDERJIT MORGAN Report Released Date/Time: Mar 05, 2024 09:40 AM Reporting Lab: [facility] [address] Performing Lab: [address] VITAMIN B-1,BLOOD 125 nmol/L 78-185 Mar 05, 2024 09:55 AM [facility] VITAMIN A Specimen Type: SERUM Comment: Vitamin supplementation within 24 hours prior to blood draw may affect the accuracy of the results. This test was developed and its analytical performance characteristics have been determined by [employer] [place], [place]. It has not been cleared or approved by the U.S. Food and Drug Administration. This assay has been validated pursuant to the CLIA regulations and is used for clinical purposes. Test Performed by [email or web address] [facility], [address] [place] [address] Devante Meyer M.D., Ph.D., Director of Laboratories , CLIA [id number] Ordering Provider: INDERJIT MORGAN Report Released Date/Time: Mar 05, 2024 09:40 AM Reporting Lab: [facility] [id number] Performing Lab: [address] VITAMIN A 54 ug/dL 38-98 Mar 05, 2024 09:55 AM [facility] ZINC Specimen Type: SERUM Comment: This test was developed and its analytical performance characteristics have been determined by [employer] [place], [place]. It has not been cleared or approved by the U.S. Food and Drug Administration. This assay has been validated pursuant to the CLIA regulations and is used for clinical purposes. Test Performed by [employer], [email or web address] [facility], [address] [place] [address] Devante Meyer M.D., Ph.D., Director of Laboratories , CLIA [id number] Ordering Provider: INDERJIT MORGAN Report Released Date/Time: Mar 05, 2024 09:40 AM Reporting Lab: [facility] [id number] Performing Lab: [address] ZINC 96 ug/dL 60-130 Mar 05, 2024 09:55 AM [facility] COPPER Specimen Type: PLASMA Comment: This test was developed and its analytical performance characteristics have been determined by [place]. It has not been cleared or approved by the U.S. Food and Drug Administration. This assay has been validated pursuant to the CLIA regulations and is used for clinical purposes. Test Performed by [email or web address] [facility], [address] [place] [address] Devante Meyer M.D., Ph.D., Director of Laboratories , CLIA [id number] Ordering Provider: INDERJIT MORGAN Report Released Date/Time: Mar 05, 2024 09:40 AM Reporting Lab: [facility] [address] Performing Lab: [facility] [address] [facility] [address] [place] 99 ug/dL 70-175 Mar 05, 2024 09:55 AM [facility] TSH W/REFLEX TO FREE T4 Specimen Type: PLASMA No comment entered. Ordering Provider: INDERJIT MORGAN Report Released Date/Time: Mar 05, 2024 09:40 AM Reporting Lab: [facility] [address] Performing Lab: [facility] [address] TSH 2.01 u[IU]/mL 0.35-4.94 Mar 05, 2024 09:55 AM [facility] FERRITIN Specimen Type: SERUM No comment entered. Ordering Provider: INDERJIT MORGAN Report Released Date/Time: Mar 05, 2024 09:40 AM Reporting Lab: [facility] [address] Performing Lab: [facility] [address] FERRITIN 191.6 ng/mL 21.8-274.7 Mar 05, 2024 09:55 AM [facility] PRE-ALBUMIN Specimen Type: SERUM No comment entered. Ordering Provider: INDERJIT MORGAN Report Released Date/Time: Mar 05, 2024 09:40 AM Reporting Lab: [facility] [address] Performing Lab: [facility] [address] PRE-ALBUMIN 19.9 mg/dL 14.0-45.0 Mar 05, 2024 09:55 AM [facility] B 12 Specimen Type: PLASMA No comment entered. Ordering Provider: INDERJIT MORGAN Report Released Date/Time: Mar 05, 2024 09:40 AM Reporting Lab: [facility] [address] Performing Lab: [facility] [address] B 12 864 pg/mL H 213-816 Mar 05, 2024 09:55 AM [facility] LIPID PANEL,NON-FASTING Specimen Type: PLASMA No comment entered. Ordering Provider: INDERJIT MORGAN Report Released Date/Time: Mar 05, 2024 09:40 AM Reporting Lab: [facility] [address] Performing Lab: [facility] [address] CHOLESTEROL 111 mg/dL <199 .HDL 45 mg/dL >40 LDL CALCULATION 54 mg/dL <99 VLDL CALCULATION 12 mg/dL <29 NON HDL CHOLESTEROL 66 mg/dL <129 TRIG(NON FASTING) 60 mg/dL <149 Mar 05, 2024 09:55 AM [facility] FOLATE Specimen Type: SERUM No comment entered. Ordering Provider: INDERJIT MORGAN Report Released Date/Time: Mar 05, 2024 09:40 AM Reporting Lab: [facility] [address] Performing Lab: [facility] [address] FOLATE 14.5 ng/mL >7.0 Mar 05, 2024 09:55 AM [facility] VIT D 25-OH,TOTAL Specimen Type: SERUM No comment entered. Ordering Provider: INDERJIT MORGAN Report Released Date/Time: Mar 05, 2024 09:40 AM Reporting Lab: [facility] [address] Performing Lab: [facility] [address] VIT D 25-OH,TOTAL 71 ng/mL H 12-50 Mar 05, 2024 09:55 AM [facility] COMPREHENSIVE METABOLIC PANEL+MG Specimen Type: PLASMA No comment entered. Ordering Provider: INDERJIT MORGAN Report Released Date/Time: Mar 05, 2024 09:40 AM Reporting Lab: [facility] [address] Performing Lab: [facility] [address] CREATININE 1.1 mg/dL 0.7-1.2 UREA NITROGEN 19 [...] 70 >60 Mar 05, 2024 09:55 AM [facility] CALCIUM Specimen Type: PLASMA No comment entered. Ordering Provider: INDERJIT MORGAN Report Released Date/Time: Mar 05, 2024 09:40 AM Reporting Lab: [facility] [address] Performing Lab: [facility] [address] CALCIUM 9.6 mg/dL 8.4-10.2 Mar 05, 2024 09:55 AM [facility] IRON GROUP Specimen Type: SERUM No comment entered. Ordering Provider: INDERJIT MORGAN Report Released Date/Time: Mar 05, 2024 09:40 AM Reporting Lab: [facility] [address] Performing Lab: [facility] [address] IRON 59 ug/dL L 65-175 TIBC,CALCULATE D 258 ug/dL 250-425 FERRITIN 191.6 ng/mL 21.8-274.7 IRON SATURATION 23 20-50 TRANSFERRIN 206 mg/dL 163-382 Mar 05, 2024 09:55 AM [facility] PTH-N-TACT Specimen Type: SERUM No comment entered. Ordering Provider: INDERJIT MORGAN Report Released Date/Time: Mar 05, 2024 09:40 AM Reporting Lab: [facility] [address] Performing Lab: [facility] [address] PTH-N-TACT 26.5 pg/mL 8.7-77.1 Mar 05, 2024 09:55 AM [facility] MAGNESIUM Specimen Type: PLASMA No comment entered. Ordering Provider: INDERJIT MORGAN Report Released Date/Time: Mar 05, 2024 09:40 AM Reporting Lab: [facility] [address] Performing Lab: [facility] [address] MAGNESIUM 1.4 mg/dL L 1.6-2.6 Mar 05, 2024 09:55 AM [facility] CBC & DIFF Specimen Type: BLOOD Comment: Automated Differential Performed Ordering Provider: INDERJIT MORGAN Report Released Date/Time: Mar 05, 2024 09:40 AM Reporting Lab: [facility] [address] Performing Lab: [facility] [address] WBC 6.85 10*3/uL 4.0-11.0 RBC 4.20 10*6/uL [...] GRAN 0.02 10*3/uL 0-0.1 Mar 05, 2024 09:54 AM [facility] VITAMIN A Specimen Type: SERUM Comment: Vitamin supplementation within 24 hours prior to blood draw may affect the accuracy of the results. This test was developed and its analytical performance characteristics have been determined by [email or web address] [place], [place]. It has not been cleared or approved by the U.S. Food and Drug Administration. This assay has been validated pursuant to the CLIA regulations and is used for clinical purposes. Test Performed by [facility], [employer] [facility], [address] [place], [place] Devante Meyer M.D., Ph.D., Director of Laboratories , [facility] [id number] Ordering Provider: INDERJIT MORGAN Report Released Date/Time: Mar 05, 2024 09:40 AM Reporting Lab: [facility] [address] Performing Lab: [facility] [address] [facility] VITAMIN A 54 ug/dL 38-98 Mar 05, 2024 07:35 AM [facility] HEMOGLOBIN A1C Specimen Type: BLOOD [...] Nov 07, 2023 10:56 AM Reporting Lab: [facility] [address] Performing Lab: [facility] [address] HEMOGLOBIN A1C 6.6 H 4.0-6.0 Vital Signs: All taken on the encounter date This section contains inpatient and outpatient Vital Signs collected on the date of the Encounter. Date/Time Temperature Pulse Blood Pressure Respiratory Rate SP02 Pain Height Weight Body Mass Index Source Feb 19, 2024 09:13 AM 162.1 25 [facility] Feb 19, 2024 09:08 AM 115 103/71 18 96 7 [facility] Social History: Smoking Status (Most current) and Tobacco Use (All prior to encounter date) This section includes the most current, and the historical, smoking and tobacco- related health factors from the [place] facility where the Encounter took place. Current Smoking Status This section includes the most current smoking, or tobacco-related health factor, from the [place] facility where the Encounter took place. Date/Time Current Smoking Status Comment Facil chuck Aug 21, 2023 10:30 AM [place] FORMER USER [facility] Tobacco Use History This section includes a history of the smoking, or tobacco-related health factors, that were collected on or before the date of the Encounter. The data comes from the [place] facility where the Encounter took place. Date/Time [...] the Encounter. The data comes from all [facility] facilities. Date/Time Radiology Report Provider Source Mar 16, 2024 10:09 AM HIP LEFT 2 VIEWS W /PELVIS: JUAN THOMPSON [id number] -1945 M Exm Date: MAR 16, 2024@10:09 Req Phys: DUONG FIELDS Pat Loc: [facility] APACT A RES 05 WH 4F (Req' Img Loc: MAIN X-RAY Service: [place] [address] (Case [id number] COMPLETE) HIP LEFT 2 VIEWS W/PELVIS (RAD Detailed) CPT:83783 Proc Modifiers : LEFT Reason for Study: mechanical fall 3 days ago Clinical History: [place] IS NOT under investigation for COVID-19 or is COVID-19 negative mechanical fall three days ago, rule out fracture. Responsible provider name and phone number to notify for critical findings if other than user placing the order and pager listed below: User placing orders pager: LAST CREATININE 1.1 (03/05/24) Report Status: Verified Date Reported: MAR 16, 2024 Date Verified: MAR 16, 2024 Digital Marketing Strategist E-Sig: Report: HIP LEFT 2 VIEWS W/PELVIS HISTORY: mechanical fall 3 days ago COMPARISON: Left hip series 08/28/2022 TECHNIQUE: AP view of the pelvis, and AP and frog-leg views of the left hip, submitted to the [place] National Teleradiology Program (NTP) for interpretation. FINDINGS: The right hip joint osteoarthritis is severe, and is worse. There is satisfactory alignment of the SI joints and pubic symphysis. The degenerative spurring of the iliac crests is stable. The mild left hip joint osteoarthritis is stable. There is no acute left hip fracture. Impression: 1. No acute fracture. 2. Worse right hip joint OA. 3. Stable left hip joint OA. READING PHYSICIAN: Jere Johnson -[id number] 03/16/2024 14:24 CDT [facility] National Teleradiology Program [phone] (For Medical Practitioner Use Only) Attention Patients / Veterans: If you have questions or concerns about these test results, please contact your ordering provider or primary care team. Primary Interpreting Staff: RADIOLOGY,OUTSIDE SERVICE, Staff Physician / RADIOLOGY,OUTSIDE SERVICE [facility] Feb 07, 2024 12:25 PM SPINE LUMBOSACRAL 2 OR 3 VIEWS: JUAN THOPMSON [id number] -[id number] M Exm Date: FEB 07, 2024@12:25 Req Phys: PATITO FIGUEROA Loc: DOROTHY FIGUEROA (Req'g Loc Img Loc: MAIN X-RAY Service: [place] [address] (Case [id number] COMPLETE) SPINE LUMBOSACRAL 2 OR 3 VIEWS (RAD Detailed) CPT:73267 Proc Modifiers : Standing Reason for Study: radiating right lower extremity pain Clinical History: [place] IS NOT under investigation for COVID-19 or is COVID-19 negative radiating right lower extremity. Please perform AP & Lat. Responsible provider name and phone number to notify for critical findings if other than user placing the order and pager listed below: User placing orders pager: LAST CREATININE 1.1 (10/09/23) Report Status: Verified Date Reported: FEB 07, 2024 Date Verified: FEB 07, 2024 Digital Marketing Strategist E-Sig:/ES/SWATHI STACY MD Report: SPINE LUMBOSACRAL 2 OR 3 VIEWS 02/07/2024 INDICATION: radiating right lower extremity pain COMPARISON: None. FINDINGS: Five lumbar vertebral bodies. Small T12 ribs. Lordosis normal. Mild S-shaped asymmetry convex right superiorly and convex left inferiorly. Vertebral body heights are maintained. [id number] diffuse disc space narrowing. Modest degree of facet arthropathy. No acute superimposed bony finding. Moderate aortic calcification. Normal caliber. Clips from cholecystectomy. Stool impaction in the colon. Advanced degenerative change of the right hip. 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 No acute bony finding. Advanced degenerative change of the right hip. Primary Interpreting Staff: SWATHI STACY MD, RADIOLOGIST (Digital Marketing Strategist) /SWATHI [facility] Feb 07, 2024 10:22 AM HIP RIGHT 2 VIEWS W/PELVIS: JUAN THOMPSON [id number] -[id number] M Ex Date: FEB 07, 2024@10:22 Req Phys: PATITO FIGUEROA Pat Loc: V23 [facility] PHONE [facility] RN (Req'g Lo Img Loc: MAIN X-RAY Service: [place] [address] (Case [id number] COMPLETE) HIP RIGHT 2 VIEWS W/PELVIS (RAD Detailed) CPT:68412 Reason for Study: pain Clinical History: pain Responsible provider name and phone number to notify for critical findings if other than user placing the order and pager listed below: User placing orders pager: LAST CREATININE 1.1 (10/09/23) Report Status: Verified Date Reported: FEB 07, 2024 Date Verified: FEB 07, 2024 Digital Marketing Strategist E-Sig:/ES/LYNNE MARTÍNEZ DO Report: EXAMINATION: HIP RIGHT [...] Primary Interpreting Staff: LYNNE MARTÍNEZ DO, RADIOLOGIST (Digital Marketing Strategist) /DDS LYNNE MARTÍNEZ [facility] Encounter Notes: All associated encounter notes This section contains the clinical notes associated to the Encounter. Date/Time Encounter Note(s) Provider Source Feb 19, 2024 09:09 AM NEUROLOGY NURSING OUTPATIENT NOTE: LOCAL TITLE: NEUROLOGY CLINIC NURSING NOTE STANDARD TITLE: NEUROLOGY NURSING OUTPATIENT NOTE DATE OF NOTE: FEB 19, 2024@09:09 ENTRY DATE: FEB 19, 2024@09:10:22 AUTHOR: SCARLETT ART EXP COSIGNER: URGENCY: STATUS: COMPLETED NEUROLOGY CLINIC NURSING NOTE Has ADDENDA Type of visit: Appointment Check In Reason for Visit: Here for F/U Getting all medication from the [place]. Vital Signs: Blood Pressure: 103/71 (02/19/2024 09:08) Pulse: 115 (02/19/2024 09:08) Respiration: 18 (02/19/2024 09:08) Temperature: 98.5 F [36.9 C] (11/20/2023 08:52) Weight: 177.7 lb [80.60 kg] (11/07/2023 10:15) Height: 68 in [172.7 cm] (10/09/2023 09:43) BMI: 27.1 Pain: 7 (02/19/2024 09:08) Allergies: SULFAMETHOXAZOLE (Feb 07, 2022) EMPAGLIFLOZIN (Jun [...] TWICE A DAY FOR CALCIUM SUPPLEMENT 7) DICLOFENAC NA 1% TOP GEL APPLY 4 GRAMS TOPICALLY FOUR ACTIVE TIMES A DAY NEEDED TO AFFECTED AREA FOR PAIN 8) FERROUS SULFATE 325MG TAB TAKE ONE TABLET BY MOUTH ACTIVE EVERY DAY FOR IRON SUPPLEMENT 9) LIDOCAINE 5% PATCH APPLY 1 PATCH TOPICALLY EVERY DAY ACTIVE FOR UP TO 12 HOURS FOR PAIN 10) MAGNESIUM OXIDE 400MG TAB TAKE TWO TABLETS BY MOUTH ACTIVE EVERY DAY FOR SUPPLEMENTATION 11) METFORMIN HCL 500MG TAB TAKE ONE TABLET BY MOUTH ACTIVE EVERY DAY FOR DIABETES *NOTE:WHOLE TABLETS 12) METOPROLOL SUCCINATE 25MG SA TAB TAKE THREE TABLETS ACTIVE BY MOUTH EVERY DAY FOR HEART AND BLOOD PRESSURE 13) OMEPRAZOLE 40MG EC CAP TAKE ONE CAPSULE BY MOUTH ACTIVE TWICE A DAY ON AN EMPTY STOMACH, AT LEAST 30 MINUTES PRIOR TO A MEAL TO DECREASE STOMACH ACID 14) SEMAGLUTIDE 0.25MG/0.375ML INJ PEN 3ML INJECT 0.5MG ACTIVE UNDER THE SKIN EVERY WEEK DIABETES AND WEIGHT LOSS 15) VENLAFAXINE HCL 150MG 24HR SA CAP TAKE [...] any changes documented on printed medication list. /aneesh ART LPN CLINICAL LICENSED PRACTICAL NURSE Signed: 02/19/2024 09:11 02/19/2024 ADDENDUM STATUS: COMPLETED not seen in clinic today as provider out ill. will reschedule appointment. /aneesh ART LPN CLINICAL LICENSED PRACTICAL NURSE Signed: 02/19/2024 10:12 [facility] ART [facility]
--- OUTSIDE RECORDS SUMMARY | 2024-07-06 16:27 | XMS_ITS | Encounter Summary ---
Author Name [facility] [place] [facility] [place] Address [address] [place] [address] Care Team Providers Care Extended Insurance Clerk Name Role Phone MARIUSZ PHILLIPS Primary Care [...] PART A Sep 26, 2012 PART A [id number] [facility] [phone] JUAN THOMPSON JR PATIENT MEDICARE (WNR) MEDICARE (M) PART B Sep 26, 2012 PART B [id number] JUAN THOMPSON JR PATIENT Selected Encounter This section includes the information on record at [place] for the Encounter. Date/Time Encounter Type Encounter Description Reason Provider Source Mar 05, 2024 08:30 AM OFFICE O/P EST HI 40 MIN ENDOCRINOLOGY ICD-10-CM E11.8 Type 2 diabetes mellitus with unspecified complications RAF SALVADOR IHBaldo Encounter Template Text not used by [place] Assessments - Encounter Diagnoses This section includes the primary and secondary diagnoses documented for the Encounter. Date/Time Primary/Secondary Diagnosis Diagnosis Name Provider Source Mar 05, 2024 09:51 AM PRIMARY Type 2 diabetes mellitus with unspecified complications INDERJIT MORGAN [facility] Mar 05, 2024 09:51 AM SECONDARY Abnormal [facility] Mar 05, 2024 09:51 AM SECONDARY Other obesity [facility] Plan of Treatment: Future Appointments (+ 6 months) and Future Tests (+/- 45 days) The Plan of Treatment section includes future care activities for the [facility] This section includes future appointments and future orders which are active, pending or scheduled. Future Appointments This section includes appointments that were scheduled to occur 6 months from the date of the Encounter, up to a maximum of 20 appointments. The data comes from all [place] treatment facilities. Appointment Date/Time Appointment Type Appointme nt Facility Name Mar 09, 2024 08:45 AM [facility] [place] [place] [facility] [facility] Mar 16, 2024 09:00 AM [facility] Mar 16, 2024 10:15 AM [facility] [facility] Mar 27, 2024 07:00 AM [facility] [place]ONE [place] [facility] [facility] Mar 31, 2024 07:00 AM [facility] [place]ONE [place] [facility] Apr 20, 2024 08:00 AM [facility] [place]ONE [place] [facility] Apr 20, 2024 09:30 AM [facility] [place] [facility] Apr 22, 2024 09:00 AM [facility]ONE [place] [facility] [facility] Apr 22, 2024 10:00 AM [facility] Apr 29, 2024 10:30 AM [facility] [place] [facility] May 13, 2024 12:00 PM AM[facility]ORY - NONE [place] [facility] May 13, 2024 01:00 PM [place] [place] [facility] May 20, 2024 09:45 AM [facility] [place]ONE [place] [facility] May 26, 2024 09:15 AM [facility] Jun 03, 2024 10:00 AM [facility] Jun 04, 2024 09:30 AM [facility] Jun 05, 2024 01:30 PM AMBULAT[facility] - MEDICINE [facility] Jun 12, 2024 07:30 AM [facility] NONE [place] [facility] Jun 12, 2024 08:30 AM AMBULATORY - MEDICINE [facility] Jun 23, 2024 10:15 AM AMBULATORY - MEDICINE [facility] Active, Pending, and Scheduled Orders This [...] Order CARDIAC EC HO OUTPT-ALL SITES Cons It Operations Manager's Choice [facility] Lab Results: +/- 30 days of [...] Range Comment Mar 05, 2024 09:55 AM [facility] VITAMIN B-1,BLOOD Specimen Type: BLOOD Comment: Vitamin supplementation within 24 hours prior to blood draw may affect the accuracy of the results. This test was developed and its analytical performance characteristics have been determined by [facility] [place], [place]. It has not been cleared or approved by the U.S. Food and Drug Administration. This assay has been validated pursuant to the CLIA regulations and is used for clinical purposes. Test Performed by [facility], [facility], [address] [place], [place] Devante Meyer M.D., Ph.D., Director of Laboratories , CLIA [id number] Ordering Provider: INDERJIT MORGAN Report Released Date/Time: Mar 05, 2024 09:40 AM Reporting Lab: [facility] [phone] Performing Lab: [address] VITAMIN B-1,BLOOD 125 nmol/L 78-185 Mar 05, 2024 09:55 AM [facility] VITAMIN A Specimen Type: SERUM Comment: Vitamin supplementation within 24 hours prior to blood draw may affect the accuracy of the results. This test was developed and its analytical performance characteristics have been determined by [facility] [place]. It has not been cleared or approved by the U.S. Food and Drug Administration. This assay has been validated pursuant to the CLIA regulations and is used for clinical purposes. Test Performed by [facility], [address] [place] [address] Devante Meyer M.D., Ph.D., Director of Laboratories , CLIA [id number] Ordering Provider: INDERJIT MORGAN Report Released Date/Time: Mar 05, 2024 09:40 AM Reporting Lab: [address] Performing Lab: [address] VITAMIN A 54 ug/dL 38-98 Mar 05, 2024 09:55 AM [facility] ZINC Specimen Type: SERUM Comment: This test was developed and its analytical performance characteristics have been determined by [facility] [place], [place]. It has not been cleared or approved by the U.S. Food and Drug Administration. This assay has been validated pursuant to the CLIA regulations and is used for clinical purposes. Test Performed by [facility], [address] [place] [address] Devante Meyer M.D., Ph.D., Director of Laboratories , CLIA [id number] Ordering Provider: INDERJIT MORGAN Report Released Date/Time: Mar 05, 2024 09:40 AM Reporting Lab: [place] [id number] Performing Lab: [address] ZINC 96 ug/dL 60-130 Mar 05, 2024 09:55 AM [facility] COPPER Specimen Type: PLASMA Comment: This test was developed and its analytical performance characteristics have been determined by [facility] [place]. It has not been cleared or approved by the U.S. Food and Drug Administration. This assay has been validated pursuant to the CLIA regulations and is used for clinical purposes. Test Performed by [facility], [facility], [address] [place] [address] Devante Meyer M.D., Ph.D., Director of Laboratories , CLIA [id number] Ordering Provider: INDERJIT MORGAN Report Released Date/Time: Mar 05, 2024 09:40 AM Reporting Lab: [facility] [address] Performing Lab: [facility] [id number] [place] [address] COPPER 99 ug/dL 70-175 Mar 05, 2024 09:55 AM [facility] TSH W/REFLEX TO FREE T4 Specimen Type: PLASMA No comment entered. Ordering Provider: INDERJIT MORGAN Report Released Date/Time: Mar 05, 2024 09:40 AM Reporting Lab: [facility] [address] Performing Lab: [facility] [address] TSH 2.01 u[IU]/mL 0.35-4.94 Mar 05, 2024 09:55 AM [facility] FERRITIN Specimen Type: SERUM No comment entered. Ordering Provider: INDERJIT MORGAN Report Released Date/Time: Mar 05, 2024 09:40 AM Reporting Lab: [facility] [address] Performing Lab: [facility] [address] FERRITIN 191.6 ng/mL 21.8-274.7 Mar 05, 2024 09:55 AM [facility] PRE-ALBUMIN Specimen Type: SERUM No comment entered. Ordering Provider: INDERJIT MORGAN Report Released Date/Time: Mar 05, 2024 09:40 AM Reporting Lab: [facility] [address] Performing Lab: [facility] [address] PRE-ALBUMIN 19.9 mg/dL 14.0-45.0 Mar 05, 2024 09:55 AM [facility] B 12 Specimen Type: PLASMA No comment entered. Ordering Provider: INDERJIT MORGAN Report Released Date/Time: Mar 05, 2024 09:40 AM Reporting Lab: [facility] [address] Performing Lab: [facility] [address] B 12 864 pg/mL H 213-816 Mar 05, 2024 09:55 AM [facility] LIPID PANEL,NON-FASTING Specimen Type: PLASMA No comment entered. Ordering Provider: INDERJIT MORGAN Report Released Date/Time: Mar 05, 2024 09:40 AM Reporting Lab: [facility] [address] Performing Lab: [facility] [address] CHOLESTEROL 111 mg/dL <199 .HDL 45 mg/dL >40 LDL CALCULATION 54 mg/dL <99 VLDL CALCULATION 12 mg/dL <29 NON HDL CHOLESTEROL 66 mg/dL <129 TRIG(NON FASTING) 60 mg/dL <149 Mar 05, 2024 09:55 AM [facility] FOLATE Specimen Type: SERUM No comment entered. Ordering Provider: INDERJIT MORGAN Report Released Date/Time: Mar 05, 2024 09:40 AM Reporting Lab: [facility] [address] Performing Lab: [facility] [address] FOLATE 14.5 ng/mL >7.0 Mar 05, 2024 09:55 AM [facility] VIT D 25-OH,TOTAL Specimen Type: SERUM No comment entered. Ordering Provider: INDERJIT MORGAN Report Released Date/Time: Mar 05, 2024 09:40 AM Reporting Lab: [facility] [address] Performing Lab: [facility] [address] VIT D 25-OH,TOTAL 71 ng/mL H 12-50 Mar 05, 2024 09:55 AM [facility] COMPREHENSIVE METABOLIC PANEL+MG Specimen Type: PLASMA No comment entered. Ordering Provider: INDERJIT MORGAN Report Released Date/Time: Mar 05, 2024 09:40 AM Reporting Lab: [facility] [address] Performing Lab: [facility] [address] CREATININE 1.1 mg/dL 0.7-1.2 UREA NITROGEN 19 [...] 70 >60 Mar 05, 2024 09:55 AM [facility] CALCIUM Specimen Type: PLASMA No comment entered. Ordering Provider: INDERJIT MORGAN Report Released Date/Time: Mar 05, 2024 09:40 AM Reporting Lab: [facility] [address] Performing Lab: [facility] [address] CALCIUM 9.6 mg/dL 8.4-10.2 Mar 05, 2024 09:55 AM [facility] IRON GROUP Specimen Type: SERUM No comment entered. Ordering Provider: INDERJIT MORGAN Report Released Date/Time: Mar 05, 2024 09:40 AM Reporting Lab: [facility] [address] Performing Lab: [facility] [address] IRON 59 ug/dL L 65-175 TIBC,CALCULATE D 258 ug/dL 250-425 FERRITIN 191.6 ng/mL 21.8-274.7 IRON SATURATION 23 20-50 TRANSFERRIN 206 mg/dL 163-382 Mar 05, 2024 09:55 AM [facility] PTH-N-TACT Specimen Type: SERUM No comment entered. Ordering Provider: INDERJIT MORGAN Report Released Date/Time: Mar 05, 2024 09:40 AM Reporting Lab: [facility] [address] Performing Lab: [facility] [address] PTH-N-TACT 26.5 pg/mL 8.7-77.1 Mar 05, 2024 09:55 AM [facility] MAGNESIUM Specimen Type: PLASMA No comment entered. Ordering Provider: INDERJIT MORGAN Report Released Date/Time: Mar 05, 2024 09:40 AM Reporting Lab: [facility] [address] Performing Lab: [facility] [address] MAGNESIUM 1.4 mg/dL L 1.6-2.6 Mar 05, 2024 09:55 AM [facility] CBC & DIFF Specimen Type: BLOOD Comment: Automated Differential Performed Ordering Provider: INDERJIT MORGAN Report Released Date/Time: Mar 05, 2024 09:40 AM Reporting Lab: [facility] [address] Performing Lab: [facility] [address] WBC 6.85 10*3/uL 4.0-11.0 RBC 4.20 10*6/uL [...] 10*3/uL 0-0.1 Mar 05, 2024 09:54 AM [facility] VITAMIN A Specimen Type: SERUM Comment: Vitamin supplementation within 24 hours prior to blood draw may affect the accuracy of the results. This test was developed and its analytical performance characteristics have been determined by [facility] [place], [place]. It has not been cleared or approved by the U.S. Food and Drug Administration. This assay has been validated pursuant to the CLIA regulations and is used for clinical purposes. Test Performed by [facility], [facility], [address] [place] [address] Devante Meyer M.D., Ph.D., Director of Laboratories , CLIA [id number] Ordering Provider: INDERJIT MORGAN Report Released Date/Time: Mar 05, 2024 09:40 AM Reporting Lab: [facility] [address] Performing Lab: [address] VITAMIN A 54 ug/dL 38-98 Mar 05, 2024 07:35 AM [facility] HEMOGLOBIN A1C Specimen Type: BLOOD Comment: [...] Nov 07, 2023 10:56 AM Reporting Lab: [facility] [address] Performing Lab: [facility] [address] HEMOGLOBIN A1C 6.6 H 4.0-6.0 Vital Signs: All taken on the encounter date This section contains inpatient and outpatient Vital Signs collected on the date of the Encounter. Date/Time Temperature Pulse Blood Pressure Respiratory Rate SP02 Pain Height Weight Body Mass Index Source Mar 05, 2024 08:52 AM 97.9 85 99/66 16 98 7 158.2 24 [facility] Social History: Smoking Status (Most [...] 21, 2023 10:30 AM [place]-TOBACCO FORMER USER [facility] Tobacco Use History This section includes a history of the smoking, or tobacco-related health factors, that were collected on or before the date of the Encounter. The data comes from the [place] facility where the Encounter took place. Date/Time Smoking Status/Tobacco Use Comment F acility Aug 21, 2023 10:30 AM VA-TOBACCO QUIT 15 YRS OR MORE [facility] Aug 15, 2022 09:00 AM VA-TOBACCO FORMER USER [facility] Aug 15, 2022 09:00 AM VA-TOBACCO QUIT 15 YRS OR MORE [facility] Aug 21, 2021 01:00 PM VA-TOBACCO FORMER USER [facility] Aug 21, 2021 01:00 PM VA-TOBACCO QUIT 15 YRS OR MORE [facility] Jul 09, 2018 08:58 AM VA-TOBACCO FORMER USER [facility] Jul 09, 2018 08:58 AM VA-TOBACCO QUIT 15 YRS OR MORE [facility] Jul 18, 2017 09:58 AM FORMER TOBACCO USER 7Y OR GREATE R [facility] Aug 14, 2016 10:59 AM FORMER TOBACCO USER 7Y OR GREATE R [facility] Jun 29, 2015 02:03 PM FORMER TOBACCO USER 7Y OR GREATE R [facility] Jan 06, 2014 03:04 PM FORMER TOBACCO USER 7Y OR GREATE R [facility] Jan 04, 2012 08:36 AM FORMER TOBACCO USER 7Y OR GREATE R [facility] Radiology Reports: +/- 30 days of [...] treatment facilities. Date/Time Radiology Report Provider Source Mar 16, 2024 10:09 AM HIP LEFT 2 VIEWS W /PELVIS: JUAN THOMPSON [id number] -1945 M Exm Date: MAR 16, 2024@10:09 Req Phys: DUONG FIELDS Elba Pat Loc: [facility] APACT A RES 05 WH 4F (Req' Img Loc: MAIN X-RAY Service: [place] [address] (Case [id number] COMPLETE) HIP LEFT 2 VIEWS W/PELVIS (RAD Detailed) CPT:17387 Proc Modifiers : LEFT Reason for Study: mechanical fall 3 days ago Clinical History: IS NOT under investigation for COVID-19 or is COVID-19 negative mechanical fall three days ago, rule out fracture. Responsible provider name and phone number to notify for critical findings if other than user placing the order and pager listed below: User placing orders pager: LAST CREATININE 1.1 (03/05/24) Report Status: Verified Date Reported: MAR 16, 2024 Date Verified: MAR 16, 2024 Executive Administrator E-Sig: Report: HIP LEFT 2 VIEWS W/PELVIS HISTORY: mechanical fall 3 days ago COMPARISON: Left hip series 08/28/2022 TECHNIQUE: AP view of the pelvis, and AP and frog-leg views of the left hip, submitted to the [place] National Teleradiology Program (NTP) for interpretation. FINDINGS: [...] hip joint OA. READING PHYSICIAN: Jere Johnson -[id number] 03/16/2024 14:24 CDT [facility] National Teleradiology Program [phone] (For Medical Practitioner Use Only) Attention Patients / Veterans: If you have questions or concerns about these test results, please contact your ordering provider or primary care team. Primary Interpreting Staff: RADIOLOGY,OUTSIDE SERVICE, Staff Physician / RADIOLOGY,OUTSIDE SERVICE [facility] Feb 07, 2024 12:25 PM SPINE LUMBOSACRAL 2 OR 3 VIEWS: JUAN THOMPSON [id number] -1945 M Exm Date: FEB 07, 2024@12:25 Req Phys: CAROLINAPATITO Christos Pat Loc: [facility] ORTHO [place] (Req'g Loc Img Loc: MAIN X-RAY Service: [place] [address] (Case [id number] COMPLETE) SPINE LUMBOSACRAL 2 OR 3 VIEWS (RAD Detailed) CPT:38327 Proc Modifiers : Standing Reason for Study: [...] 07, 2024 Date Verified: FEB 07, 2024 Executive Administrator E-Sig:/ES/SWATIH STACY MD Report: SPINE LUMBOSACRAL 2 OR 3 VIEWS 02/07/2024 INDICATION: radiating right lower extremity pain COMPARISON: None. FINDINGS: Five lumbar vertebral bodies. Small T12 ribs. Lordosis normal. Mild S-shaped asymmetry convex right superiorly and convex left inferiorly. Vertebral body heights are maintained. Ataf-df-zahzvffx diffuse disc space narrowing. Modest degree of facet arthropathy. No acute superimposed bony finding. Moderate aortic calcification. Normal caliber. Clips from cholecystectomy. Stool impaction in the colon. Advanced degenerative change of the right hip. 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 No acute bony finding. Advanced degenerative change of the right hip. Primary Interpreting Staff: SWATHI STACY MD, RADIOLOGIST (Executive Administrator) /SWATHI NEWBERRY [facility] Feb 07, 2024 10:22 AM HIP RIGHT 2 VIEWS W/PELVIS: JUAN THOMPSON [id number] [facility]1945 M Exm Date: FEB 07, 2024@10:22 Req Phys: PATITO FIGUEROA Pat Loc: V23 [facility] PHONE CCC RN (Req'g Lo Img Loc: MAIN X-RAY Service: [place] [address] (Case [id number] COMPLETE) HIP RIGHT 2 VIEWS W/PELVIS (RAD Detailed) CPT:20036 Reason for Study: pain Clinical History: pain Responsible provider name and phone number to notify for critical findings if other than user placing the order and pager listed below: User placing orders pager: LAST CREATININE 1.1 (10/09/23) Report Status: Verified Date Reported: FEB 07, 2024 Date Verified: FEB 07, 2024 Executive Administrator E-Sig:/PABLO/LYNNE MARTÍNEZ DO Report: EXAMINATION: HIP RIGHT 2 [...] Primary Interpreting Staff: LYNNE MARTÍNEZ DO, RADIOLOGIST (Executive Administrator) /DDS LYNNE MARTÍNEZ [facility] Encounter Notes: All associated encounter notes This section contains the clinical notes associated to the Encounter. Date/Time Encounter Note(s) Provider Source Mar 10, 2024 10:26 AM ADDENDUM: LOCAL TITLE: Addendum STANDARD TITLE: ADDENDUM DATE OF NOTE: MAR 10, 2024@10:26:14 ENTRY DATE: MAR 10, 2024@10:26:15 AUTHOR: MIGUEL ANGEL WHITLOCK EXP COSIGNER: URGENCY: STATUS: COMPLETED Called and spoke with . Reviewed results letter with him. He will stop the vitamin D3 supplement. He is taking ferrous sulfate as prescribed. Reports he has been having anemia for years, denies visible blood in his stool. He reports he is also drinking Ensure daily. Will alert provider to this information. /pablo/ MIGUEL ANGEL WHITLOCK RN Metabolic Train Dispatcher Signed: 03/10/2024 10:33 Receipt Acknowledged By: 03/11/2024 13:51 /pablo/ ISAEL SALVADOR MD PHYSICIAN --- Original Document --- 03/05/24 METABOLIC CLINIC NOTE: Endocrine/Metabolic Clinic Note Chief Complaint: 78 year old MALE referred for evaluation of obesity. History of Present Illness: 78 YO M w/ PMHx significant for nora-en-y bypass (2011), T2DM, recent diagnosis of parkisonism who presents to clinic for follow up. Noticed no significant change in appetite. Generally he is only eating when he is hungry: usually 3 meals. AM: breakfast sandwich with meat, turkey or ham, cheese, eggs, bagel (usually can only eat half at a time), infrequent snacking (small amounts of candy); eats somedays out of the week Noon: sandwich or soup (eats most days) PM: often eats tilapia and mash potatoes, eats this most days Takes a multivitamins, also takes a Vitamin D3 supplement. Lately he has been trying to eat more, but still losing weight. Has a chronic problem with constipation, uses miralax to help promote bowel movements. Has some stomach pain with the constipation. Has noted dark stools (is taking an iron supplement), but does have hemorrhoids. He had a colonoscopy several years ago. No N/V/D. Lives at [address] [place] [address], has housekeeping come in 3 days per week. merchandise worker helps out once per week. Uses dosimeters for medications, a nurse comes and sets them up for him. Has a 30 year history of smoking, has a little bit of COPD. His shortness of breath has worsened a little bit. 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 Past Medical History: Active problems - Computerized Problem List is the source for the followin. Essential hypertension (SNOMED CT 15449896) 2. Major depressive disorder (SNOMED CT 046364208) 3. Generalized anxiety disorder (SNOMED CT 01320634) 4. Primary Obesity 5. Bronchiectasis (SNOMED CT 56887758) 6. Gastroesophageal reflux disease (SNOMED CT 157632453) 7. Bariatric Surgery Status 8. Cataracts (SNOMED CT 89577596) 9. Hypermetropia/Hyperopia 10. Astigmatism, Unspec 11. Presbyopia 12. Atrial fibrillation (SNOMED CT 34977990) 13. Varicose veins of lower extremity 14. Compulsive gambling 15. Bipolar disorder (SNOMED CT 72616286) 16. Mild cognitive disorder 17. Type 2 [...] A DAY NEEDED FOR SHORTNESS OF BREATH APIXABAN 5MG TAB TAKE ONE TABLET BY MOUTH EVERY 12 HOURS ACTIVE TO PREVENT AND/OR TREAT BLOOD CLOTS ARIPIPRAZOLE 20MG TAB TAKE ONE TABLET BY MOUTH EVERY DAY ACTIVE FOR BIPOLAR DISORDER DOSE INCREASED 11-23-22 ATORVASTATIN CALCIUM 10MG TAB TAKE ONE TABLET BY MOUTH AT ACTIVE BEDTIME CALCIUM 200MG (CA CITRATE-950MG) TAB TAKE TWO TABLETS BY ACTIVE MOUTH TWICE A DAY FOR CALCIUM SUPPLEMENT DICLOFENAC NA 1% TOP GEL APPLY 4 GRAMS TOPICALLY FOUR ACTIVE TIMES A DAY NEEDED TO AFFECTED AREA FOR PAIN FERROUS SULFATE 325MG TAB TAKE ONE TABLET BY MOUTH EVERY ACTIVE DAY FOR IRON SUPPLEMENT LIDOCAINE 5% PATCH APPLY 1 PATCH TOPICALLY [...] ONE CAPSULE BY ACTIVE MOUTH EVERY DAY Physical Exam: Vital Signs Temp: 97.9 F [36.6 C] (03/05/2024 08:52) B/P: 99/66 (03/05/2024 08:52) Pulse: 85 (03/05/2024 08:52) Ht: 68 in [172.7 cm] (10/09/2023 09:43) Wt: 158.2 lb [71.76 kg] (03/05/2024 08:52) Pain: 7 (03/05/2024 08:52) BMI: 24.1 General: thin, no acute distress, conversational Neurological: soft spoken, limited facial expressions, ambulates with walker and shuffling gait Labs and Imaging HGB A1C: 6.6 H Assessment and Plan: # Obesity s/p Nora-en-y bypass w/ low iron # T2DM - controlled (A1C 6.6) # Elevated vitamin D # progressive weight loss Having progressive significant weight loss of unclear etiology, likely exacerbated by his current weight loss medications and plan. Appetite is maintained and it appears that he has sufficient access to food at home at this time. Ddx includes weight loss in the s/o of his recent Parkinsonism sxs, but we may need to ultimately rule out occult malignancy--he has a remote history of 30 years of smoking and he is having dark stools but is on an iron supplement + has a history of significant hemorrhoids (he did age out of CRC screening after his 2017 scope). Vitamin D elevated on 09/2023 labs at 68, A1C stable. In shared decision making today, we will stop his semaglutide and get comprehensive nutritional laboratory work-up. We will also CC his primary care providers to schedule close follow-up for his unintentional weight loss (consideration of fecal occult tests, imaging, etc.) pending his ultimate course. Plan: - DISCONTINUE semaglutide 0.5mg qweekly today - DISCONTINUE current OTC Vitamin D3 supplement given hypervitaminosis D. - Continue metformin 500 mg daily - RTC in 3-4 months in Metabolic Clinic - We will get comprehensive nutritional labs, TSH, CBC with Diff, and CMP today - Will CC his primary care provider for close follow-up and potential further work-up for his unintentional weight loss. - Due for diabetic eye exam (encouraged to schedule this) Over 50% of this 40 minute visit was spent counseling the patient. All labs completed at this time were discussed with the patient. Patient was discussed and examined with attending Dr. Salvador, who agrees with the assessment and plan. /pablo/ INDERJIT CASAREZ CATHY RESIDENT Signed: 03/05/2024 09:49 Receipt Acknowledged By: 03/09/2024 17:20 /pablo/ ISAEL SALVADOR MD PHYSICIAN 03/05/2024 ADDENDUM STATUS: COMPLETED CC'ing primary care providers given progressive unintentional weight loss of unclear etiology-- may need to ultimately consider occult malignancy work-up. We stopped his semaglutide today and are getting comprehensive nutritional labs. Appreciate close PCP follow-up. /pablo/ INDERJIT CASAREZ CATHY RESIDENT Signed: 03/05/2024 09:52 Receipt Acknowledged By: * AWAITING SIGNATURE * RACHEL WATSON 03/09/2024 14:20 /pablo/ MARIUSZ PHILLIPS MD PHYSICIAN 03/09/2024 ADDENDUM STATUS: COMPLETED Has recall in place for PCP f/u in ~3 weeks /pablo/ MARIUSZ PHILLIPS MD PHYSICIAN Signed: 03/09/2024 14:20 03/09/2024 ADDENDUM STATUS: COMPLETED --will ask metabolic nurse coordinator to please review results letter with him and let me know his responses. thanks. /pablo/ ISAEL SALVADOR MD PHYSICIAN Signed: 03/09/2024 17:21 Receipt Acknowledged By: 03/10/2024 10:25 /pablo/ MIGUEL ANGEL WHITLOCK RN Metabolic Train Dispatcher MIGUEL ANGEL WHITLOCK [facility] Mar 09, 2024 05:20 PM ADDENDUM: LOCAL TITLE: Addendum STANDARD TITLE: ADDENDUM DATE OF NOTE: MAR 09, 2024@17:20:31 ENTRY DATE: MAR 09, 2024@17:20:33 AUTHOR: ISAEL SALVADOR EXP COSIGNER: URGENCY: STATUS: COMPLETED --will ask metabolic nurse coordinator to please review results letter with him and let me know his responses. thanks. /aneesh SALVADOR MD PHYSICIAN Signed: 03/09/2024 17:21 Receipt Acknowledged By: 03/10/2024 10:25 /pablo/ MIGUEL ANGEL WHITLOCK RN Metabolic Train Dispatcher --- Original Document --- 03/05/24 METABOLIC CLINIC NOTE: Endocrine/Metabolic Clinic Note Chief Complaint: 78 year old MALE referred for evaluation of obesity. History of Present Illness: 78 YO M w/ PMHx significant for nora-en-y bypass (2011), T2DM, recent diagnosis of parkisonism who presents to clinic for follow up. Noticed no significant change in appetite. Generally he is only eating when he is hungry: usually 3 meals. AM: breakfast sandwich with meat, turkey or ham, cheese, eggs, bagel (usually can only eat half at a time), infrequent snacking (small amounts of candy); eats somedays out of the week Noon: sandwich or soup (eats most days) PM: often eats tilapia and mash potatoes, eats this most days Takes a multivitamins, also takes a Vitamin D3 supplement. Lately he has been trying to eat more, but still losing weight. Has a chronic problem with constipation, uses miralax to help promote bowel movements. Has some stomach pain with the constipation. Has noted dark stools (is taking an iron supplement), but does have hemorrhoids. He had a colonoscopy several years ago. No N/V/D. Lives at [address] [place] [address], has housekeeping come in 3 days per week. merchandise worker helps out once per week. Uses dosimeters for medications, a nurse comes and sets them up for him. Has a 30 year history of smoking, has a little bit of COPD. His shortness of breath has worsened a little bit. 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 Past Medical History: Active problems - Computerized Problem List is the source for the followin. Essential hypertension (SNOMED CT 26966622) 2. Major depressive disorder (SNOMED CT 885682586) 3. Generalized anxiety disorder (SNOMED CT 75878810) 4. Primary Obesity 5. Bronchiectasis (SNOMED CT 60924682) 6. Gastroesophageal reflux disease (SNOMED CT 577356507) 7. Bariatric Surgery Status 8. Cataracts (SNOMED CT 79692305) 9. Hypermetropia/Hyperopia 10. Astigmatism, Unspec 11. Presbyopia 12. Atrial fibrillation (SNOMED CT 23273409) 13. Varicose veins of lower extremity 14. Compulsive gambling 15. Bipolar disorder (SNOMED CT 17193088) 16. Mild cognitive disorder 17. Type 2 [...] A DAY NEEDED FOR SHORTNESS OF BREATH APIXABAN 5MG TAB TAKE ONE TABLET BY MOUTH EVERY 12 HOURS ACTIVE TO PREVENT AND/OR TREAT BLOOD CLOTS ARIPIPRAZOLE 20MG TAB TAKE ONE TABLET BY MOUTH EVERY DAY ACTIVE FOR BIPOLAR DISORDER DOSE INCREASED 11-23-22 ATORVASTATIN CALCIUM 10MG TAB TAKE ONE TABLET BY MOUTH AT ACTIVE BEDTIME CALCIUM 200MG (CA CITRATE-950MG) TAB TAKE TWO TABLETS BY ACTIVE MOUTH TWICE A DAY FOR CALCIUM SUPPLEMENT DICLOFENAC NA 1% TOP GEL APPLY 4 GRAMS TOPICALLY FOUR ACTIVE TIMES A DAY NEEDED TO AFFECTED AREA FOR PAIN FERROUS SULFATE 325MG TAB TAKE ONE TABLET BY MOUTH EVERY ACTIVE DAY FOR IRON SUPPLEMENT LIDOCAINE 5% PATCH APPLY 1 PATCH TOPICALLY [...] ONE CAPSULE BY ACTIVE MOUTH EVERY DAY Physical Exam: Vital Signs Temp: 97.9 F [36.6 C] (03/05/2024 08:52) B/P: 99/66 (03/05/2024 08:52) Pulse: 85 (03/05/2024 08:52) Ht: 68 in [172.7 cm] (10/09/2023 09:43) Wt: 158.2 lb [71.76 kg] (03/05/2024 08:52) Pain: 7 (03/05/2024 08:52) BMI: 24.1 General: thin, no acute distress, conversational Neurological: soft spoken, limited facial expressions, ambulates with walker and shuffling gait Labs and Imaging HGB A1C: 6.6 H Assessment and Plan: # Obesity s/p Nora-en-y bypass w/ low iron # T2DM - controlled (A1C 6.6) # Elevated vitamin D # progressive weight loss Having progressive significant weight loss of unclear etiology, likely exacerbated by his current weight loss medications and plan. Appetite is maintained and it appears that he has sufficient access to food at home at this time. Ddx includes weight loss in the s/o of his recent Parkinsonism sxs, but we may need to ultimately rule out occult malignancy--he has a remote history of 30 years of smoking and he is having dark stools but is on an iron supplement + has a history of significant hemorrhoids (he did age out of CRC screening after his 2017 scope). Vitamin D elevated on 09/2023 labs at 68, A1C stable. In shared decision making today, we will stop his semaglutide and get comprehensive nutritional laboratory work-up. We will also CC his primary care providers to schedule close follow-up for his unintentional weight loss (consideration of fecal occult tests, imaging, etc.) pending his ultimate course. Plan: - DISCONTINUE semaglutide 0.5mg qweekly today - DISCONTINUE current OTC Vitamin D3 supplement given hypervitaminosis D. - Continue metformin 500 mg daily - RTC in 3-4 months in Metabolic Clinic - We will get comprehensive nutritional labs, TSH, CBC with Diff, and CMP today - Will CC his primary care provider for close follow-up and potential further work-up for his unintentional weight loss. - Due for diabetic eye exam (encouraged to schedule this) Over 50% of this 40 minute visit was spent counseling the patient. All labs completed at this time were discussed with the patient. Patient was discussed and examined with attending Dr. Salvador, who agrees with the assessment and plan. /pablo/ INDERJIT MORGAN RESIDENT Signed: 03/05/2024 09:49 Receipt Acknowledged By: 03/09/2024 17:20 /pablo/ ISAEL SALVADOR MD PHYSICIAN 03/05/2024 ADDENDUM STATUS: COMPLETED CC'ing primary care providers given progressive unintentional weight loss of unclear etiology-- may need to ultimately consider occult malignancy work-up. We stopped his semaglutide today and are getting comprehensive nutritional labs. Appreciate close PCP follow-up. /pablo/ INDERJIT ECHAVARRIAN RESIDENT Signed: 03/05/2024 09:52 Receipt Acknowledged By: * AWAITING SIGNATURE * RACHEL WATSON 03/09/2024 14:20 /pablo/ MARIUSZ PHILLIPS MD PHYSICIAN 03/09/2024 ADDENDUM STATUS: COMPLETED Has recall in place for PCP f/u in ~3 weeks /pablo/ MARIUSZ PHILLIPS MD PHYSICIAN Signed: 03/09/2024 14:20 ISAEL SALVADOR [facility] Mar 05, 2024 09:51 AM ADDENDUM: LOCAL TITLE: Addendum STANDARD TITLE: ADDENDUM DATE OF NOTE: MAR 05, 2024@09:51:13 ENTRY DATE: MAR 05, 2024@09:51:15 AUTHOR: IDNERJIT MORGAN EXP COSIGNER: URGENCY: STATUS: COMPLETED CC'ing primary care providers given progressive unintentional weight loss of unclear etiology-- may need to ultimately consider occult malignancy work-up. We stopped his semaglutide today and are getting comprehensive nutritional labs. Appreciate close PCP follow-up. /pablo/ INDERJIT ECHAVARRIAN RESIDENT Signed: 03/05/2024 09:52 Receipt Acknowledged By: 03/13/2024 16:02 /aneesh WATSON MD RESIDENT PHYSICIAN 03/09/2024 14:20 /aneesh PHILLIPS MD PHYSICIAN --- Original Document --- 03/05/24 METABOLIC CLINIC NOTE: Endocrine/Metabolic Clinic Note Chief Complaint: 78 year old MALE referred for evaluation of obesity. History of Present Illness: 78 YO M w/ PMHx significant for nora-en-y bypass (2011), T2DM, recent diagnosis of parkisonism who presents to clinic for follow up. Noticed no significant change in appetite. Generally he is only eating when he is hungry: usually 3 meals. AM: breakfast sandwich with meat, turkey or ham, cheese, eggs, bagel (usually can only eat half at a time), infrequent snacking (small amounts of candy); eats somedays out of the week Noon: sandwich or soup (eats most days) PM: often eats tilapia and mash potatoes, eats this most days Takes a multivitamins, also takes a Vitamin D3 supplement. Lately he has been trying to eat more, but still losing weight. Has a chronic problem with constipation, uses miralax to help promote bowel movements. Has some stomach pain with the constipation. Has noted dark stools (is taking an iron supplement), but does have hemorrhoids. He had a colonoscopy several years ago. No N/V/D. Lives at [address] [place] [address], has housekeeping come in 3 days per week. merchandise worker helps out once per week. Uses dosimeters for medications, a nurse comes and sets them up for him. Has a 30 year history of smoking, has a little bit of COPD. His shortness of breath has worsened a little bit. 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 Past Medical History: Active problems - Computerized Problem List is the source for the followin. Essential hypertension (SNOMED CT 80681672) 2. Major depressive disorder (SNOMED CT 129328393) 3. Generalized anxiety disorder (SNOMED CT 43200153) 4. Primary Obesity 5. Bronchiectasis (SNOMED CT 75159301) 6. Gastroesophageal reflux disease (SNOMED CT 884745721) 7. Bariatric Surgery Status 8. Cataracts (SNOMED CT 13317635) 9. Hypermetropia/Hyperopia 10. Astigmatism, Unspec 11. Presbyopia 12. Atrial fibrillation (SNOMED CT 77522896) 13. Varicose veins of lower extremity 14. Compulsive gambling 15. Bipolar disorder (SNOMED CT 74827833) 16. Mild cognitive disorder 17. Type 2 [...] A DAY NEEDED FOR SHORTNESS OF BREATH APIXABAN 5MG TAB TAKE ONE TABLET BY MOUTH EVERY 12 HOURS ACTIVE TO PREVENT AND/OR TREAT BLOOD CLOTS ARIPIPRAZOLE 20MG TAB TAKE ONE TABLET BY MOUTH EVERY DAY ACTIVE FOR BIPOLAR DISORDER DOSE INCREASED 11-23-22 ATORVASTATIN CALCIUM 10MG TAB TAKE ONE TABLET BY MOUTH AT ACTIVE BEDTIME CALCIUM 200MG (CA CITRATE-950MG) TAB TAKE TWO TABLETS BY ACTIVE MOUTH TWICE A DAY FOR CALCIUM SUPPLEMENT DICLOFENAC NA 1% TOP GEL APPLY 4 GRAMS TOPICALLY FOUR ACTIVE TIMES A DAY NEEDED TO AFFECTED AREA FOR PAIN FERROUS SULFATE 325MG TAB TAKE ONE TABLET BY MOUTH EVERY ACTIVE DAY FOR IRON SUPPLEMENT LIDOCAINE 5% PATCH APPLY 1 PATCH TOPICALLY [...] ONE CAPSULE BY ACTIVE MOUTH EVERY DAY Physical Exam: Vital Signs Temp: 97.9 F [36.6 C] (03/05/2024 08:52) B/P: 99/66 (03/05/2024 08:52) Pulse: 85 (03/05/2024 08:52) Ht: 68 in [172.7 cm] (10/09/2023 09:43) Wt: 158.2 lb [71.76 kg] (03/05/2024 08:52) Pain: 7 (03/05/2024 08:52) BMI: 24.1 General: thin, no acute distress, conversational Neurological: soft spoken, limited facial expressions, ambulates with walker and shuffling gait Labs and Imaging HGB A1C: 6.6 H Assessment and Plan: # Obesity s/p Nora-en-y bypass w/ low iron # T2DM - controlled (A1C 6.6) # Elevated vitamin D # progressive weight loss Having progressive significant weight loss of unclear etiology, likely exacerbated by his current weight loss medications and plan. Appetite is maintained and it appears that he has sufficient access to food at home at this time. Ddx includes weight loss in the s/o of his recent Parkinsonism sxs, but we may need to ultimately rule out occult malignancy--he has a remote history of 30 years of smoking and he is having dark stools but is on an iron supplement + has a history of significant hemorrhoids (he did age out of CRC screening after his 2017 scope). Vitamin D elevated on 09/2023 labs at 68, A1C stable. In shared decision making today, we will stop his semaglutide and get comprehensive nutritional laboratory work-up. We will also CC his primary care providers to schedule close follow-up for his unintentional weight loss (consideration of fecal occult tests, imaging, etc.) pending his ultimate course. Plan: - DISCONTINUE semaglutide 0.5mg qweekly today - DISCONTINUE current OTC Vitamin D3 supplement given hypervitaminosis D. - Continue metformin 500 mg daily - RTC in 3-4 months in Metabolic Clinic - We will get comprehensive nutritional labs, TSH, CBC with Diff, and CMP today - Will CC his primary care provider for close follow-up and potential further work-up for his unintentional weight loss. - Due for diabetic eye exam (encouraged to schedule this) Over 50% of this 40 minute visit was spent counseling the patient. All labs completed at this time were discussed with the patient. Patient was discussed and examined with attending Dr. Salvador, who agrees with the assessment and plan. /pablo/ INDERJIT CASAREZ CATHY RESIDENT Signed: 03/05/2024 09:49 Receipt Acknowledged By: 03/09/2024 17:20 /pablo/ ISAEL SALVADOR MD PHYSICIAN 03/09/2024 ADDENDUM STATUS: COMPLETED Has recall in place for PCP f/u in ~3 weeks /pablo/ MARIUSZ PHILLIPS MD PHYSICIAN Signed: 03/09/2024 14:20 03/09/2024 ADDENDUM STATUS: COMPLETED --will ask metabolic nurse coordinator to please review results letter with him and let me know his responses. thanks. /pablo/ ISAEL SALVADOR MD PHYSICIAN Signed: 03/09/2024 17:21 Receipt Acknowledged By: 03/10/2024 10:25 /pablo/ MIGUEL ANGEL WHITLOCK RN Metabolic Train Dispatcher 03/10/2024 ADDENDUM STATUS: COMPLETED Called and spoke with . Reviewed results letter with him. He will stop the vitamin D3 supplement. He is taking ferrous sulfate as prescribed. Reports he has been having anemia for years, denies visible blood in his stool. He reports he is also drinking Ensure daily. Will alert provider to this information. /pablo/ MIGUEL ANGEL WHITLOCK RN Metabolic Train Dispatcher Signed: 03/10/2024 10:33 Receipt Acknowledged By: 03/11/2024 13:51 /aneesh SALVADOR MD PHYSICIAN CATHY,INDERJIT CASAREZ [facility] Mar 05, 2024 08:58 AM INTERNAL MEDICINE OUTPATIENT NOTE: LOCAL TITLE: MEDICINE CLINIC NURSING NOTE STANDARD TITLE: INTERNAL MEDICINE OUTPATIENT NOTE DATE OF NOTE: MAR 05, 2024@08:58 ENTRY DATE: MAR 05, 2024@08:58:37 AUTHOR: CARLOS SNYDER EXP COSIGNER: URGENCY: STATUS: COMPLETED TYPE OF VISIT: Appointment Check In Type of appointment: In-person appointment REASON FOR VISIT: clinic visit ALLERGIES: SULFAMETHOXAZOLE (Feb 07, 2022) EMPAGLIFLOZIN (Jun 06, 2022) VITAL SIGNS: Blood Pressure: 99/66 (03/05/2024 08:52) Pulse: 85 (03/05/2024 08:52) Respiration: 16 (03/05/2024 08:52) Temperature: 97.9 F [36.6 C] (03/05/2024 08:52) Weight: 158.2 lb [71.76 kg] (03/05/2024 08:52) Height: 68 in [172.7 cm] (10/09/2023 09:43) BMI: 24.1 O2 Sat: 98% (03/05/2024 08:52) Pain: 7 (03/05/2024 08:52) PAIN SCREEN: Patient is having significant pain that they would like to talk to their provider about today. Acute pain is new pain, which as been present for less than 6 months Words used to describe pain: achy Number that best describes pain intensity on average in the past week: 7 Pain located in the following location(s): left leg, hips Pain radiates to the following location(s) : left hip Pain is worse when: walking Pain is better when: medication, other: lidocaine patch /es/ CARLOS SNYDER ENAMEL DIPPER Signed: 03/05/2024 09:00 CARLOS SNYDER [facility] Mar 05, 2024 08:58 AM ENDOCRINOLOGY ATTENDING NOTE: LOCAL TITLE: METABOLIC CLINIC NOTE STANDARD TITLE: ENDOCRINOLOGY ATTENDING NOTE DATE OF NOTE: MAR 05, 2024@08:58 ENTRY DATE: MAR 05, 2024@08:58:33 AUTHOR: INDERJIT MORGAN EXP COSIGNER: URGENCY: STATUS: COMPLETED METABOLIC CLINIC NOTE Has ADDENDA Endocrine/Metabolic Clinic Note Chief Complaint: 78 year old MALE referred for evaluation of obesity. History of Present Illness: 78 YO M w/ PMHx significant for nora-en-y bypass (2011), T2DM, recent diagnosis of parkisonism who presents to clinic for follow up. Noticed no significant change in appetite. Generally he is only eating when he is hungry: usually 3 meals. AM: breakfast sandwich with meat, turkey or ham, cheese, eggs, bagel (usually can only eat half at a time), infrequent snacking (small amounts of candy); eats somedays out of the week Noon: sandwich or soup (eats most days) PM: often eats tilapia and mash potatoes, eats this most days Takes a multivitamins, also takes a Vitamin D3 supplement. Lately he has been trying to eat more, but still losing weight. Has a chronic problem with constipation, uses miralax to help promote bowel movements. Has some stomach pain with the constipation. Has noted dark stools (is taking an iron supplement), but does have hemorrhoids. He had a colonoscopy several years ago. No N/V/D. Lives at [address] [place] [address], has housekeeping come in 3 days per week. merchandise worker helps out once per week. Uses dosimeters for medications, a nurse comes and sets them up for him. Has a 30 year history of smoking, has a little bit of COPD. His shortness of breath has worsened a little bit. 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 Past Medical History: Active problems - Computerized Problem List is the source for the followin. Essential hypertension (SNOMED CT 57475780) 2. Major depressive disorder (SNOMED CT 005438012) 3. Generalized anxiety disorder (SNOMED CT 62722749) 4. Primary Obesity 5. Bronchiectasis (SNOMED CT 87096544) 6. Gastroesophageal reflux disease (SNOMED CT 374747262) 7. Bariatric Surgery Status 8. Cataracts (SNOMED CT 70128451) 9. Hypermetropia/Hyperopia 10. Astigmatism, Unspec 11. Presbyopia 12. Atrial fibrillation (SNOMED CT 03543922) 13. Varicose veins of lower extremity 14. Compulsive gambling 15. Bipolar disorder (SNOMED CT 39899707) 16. Mild cognitive disorder 17. Type 2 [...] A DAY NEEDED FOR SHORTNESS OF BREATH APIXABAN 5MG TAB TAKE ONE TABLET BY MOUTH EVERY 12 HOURS ACTIVE TO PREVENT AND/OR TREAT BLOOD CLOTS ARIPIPRAZOLE 20MG TAB TAKE ONE TABLET BY MOUTH EVERY DAY ACTIVE FOR BIPOLAR DISORDER DOSE INCREASED 11-23-22 ATORVASTATIN CALCIUM 10MG TAB TAKE ONE TABLET BY MOUTH AT ACTIVE BEDTIME CALCIUM 200MG (CA CITRATE-950MG) TAB TAKE TWO TABLETS BY ACTIVE MOUTH TWICE A DAY FOR CALCIUM SUPPLEMENT DICLOFENAC NA 1% TOP GEL APPLY 4 GRAMS TOPICALLY FOUR ACTIVE TIMES A DAY NEEDED TO AFFECTED AREA FOR PAIN FERROUS SULFATE 325MG TAB TAKE ONE TABLET BY MOUTH EVERY ACTIVE DAY FOR IRON SUPPLEMENT LIDOCAINE 5% PATCH APPLY 1 PATCH TOPICALLY [...] ONE CAPSULE BY ACTIVE MOUTH EVERY DAY Physical Exam: Vital Signs Temp: 97.9 F [36.6 C] (03/05/2024 08:52) B/P: 99/66 (03/05/2024 08:52) Pulse: 85 (03/05/2024 08:52) Ht: 68 in [172.7 cm] (10/09/2023 09:43) Wt: 158.2 lb [71.76 kg] (03/05/2024 08:52) Pain: 7 (03/05/2024 08:52) BMI: 24.1 General: thin, no acute distress, conversational Neurological: soft spoken, limited facial expressions, ambulates with walker and shuffling gait Labs and Imaging HGB A1C: 6.6 H Assessment and Plan: # Obesity s/p Nora-en-y bypass w/ low iron # T2DM - controlled (A1C 6.6) # Elevated vitamin D # progressive weight loss Having progressive significant weight loss of unclear etiology, likely exacerbated by his current weight loss medications and plan. Appetite is maintained and it appears that he has sufficient access to food at home at this time. Ddx includes weight loss in the s/o of his recent Parkinsonism sxs, but we may need to ultimately rule out occult malignancy--he has a remote history of 30 years of smoking and he is having dark stools but is on an iron supplement + has a history of significant hemorrhoids (he did age out of CRC screening after his 2017 scope). Vitamin D elevated on 09/2023 labs at 68, A1C stable. In shared decision making today, we will stop his semaglutide and get comprehensive nutritional laboratory work-up. We will also CC his primary care providers to schedule close follow-up for his unintentional weight loss (consideration of fecal occult tests, imaging, etc.) pending his ultimate course. Plan: - DISCONTINUE semaglutide 0.5mg qweekly today - DISCONTINUE current OTC Vitamin D3 supplement given hypervitaminosis D. - Continue metformin 500 mg daily - RTC in 3-4 months in Metabolic Clinic - We will get comprehensive nutritional labs, TSH, CBC with Diff, and CMP today - Will CC his primary care provider for close follow-up and potential further work-up for his unintentional weight loss. - Due for diabetic eye exam (encouraged to schedule this) Over 50% of this 40 minute visit was spent counseling the patient. All labs completed at this time were discussed with the patient. Patient was discussed and examined with attending Dr. Salvador, who agrees with the assessment and plan. /pablo/ INDERJIT ECHAVARRIAN RESIDENT Signed: 03/05/2024 09:49 Receipt Acknowledged By: 03/09/2024 17:20 /pablo/ ISAEL SALVADOR MD PHYSICIAN 03/05/2024 ADDENDUM STATUS: COMPLETED CC'ing primary care providers given progressive unintentional weight loss of unclear etiology-- may need to ultimately consider occult malignancy work-up. We stopped his semaglutide today and are getting comprehensive nutritional labs. Appreciate close PCP follow-up. /pablo/ INDERJIT CASAREZ CATHY RESIDENT Signed: 03/05/2024 09:52 Receipt Acknowledged By: * AWAITING SIGNATURE * RACHEL WATSON 03/09/2024 14:20 /pablo/ MARIUSZ PHILLIPS MD PHYSICIAN 03/09/2024 ADDENDUM STATUS: COMPLETED Has recall in place for PCP f/u in ~3 weeks /aneesh PHILLIPS MD PHYSICIAN Signed: 03/09/2024 14:20 03/09/2024 ADDENDUM STATUS: COMPLETED --will ask metabolic nurse coordinator to please review results letter with him and let me know his responses. thanks. /pablo/ ISAEL SALVADOR MD PHYSICIAN Signed: 03/09/2024 17:21 Receipt Acknowledged By: 03/10/2024 10:25 /pablo/ MIGUEL ANGEL WHITLOCK RN Metabolic Train Dispatcher 03/10/2024 ADDENDUM STATUS: COMPLETED Called and spoke with . Reviewed results letter with him. He will stop the vitamin D3 supplement. He is taking ferrous sulfate as prescribed. Reports he has been having anemia for years, denies visible blood in his stool. He reports he is also drinking Ensure daily. Will alert provider to this information. /pablo/ MIGUEL ANGEL WHITLOCK RN Metabolic Train Dispatcher Signed: 03/10/2024 10:33 Receipt Acknowledged By: * AWAITING SIGNATURE * ISAEL SALVADOR CATHY,INDERJIT CASAREZ [facility]
--- OUTSIDE RECORDS SUMMARY | 2024-07-06 16:27 | XMS_ITS | Encounter Summary ---
Author Name [facility] [place] [facility] [place] Address [address] [place] [address] Care Team Providers Care Exhibition Carver Name Role Phone MARIUSZ PHILLIPS Primary Care [...] PART A Sep 26, 2012 PART A [id number] [facility] [phone] JUAN THOMPSON JR PATIENT MEDICARE (WNR) MEDICARE (M) PART B Sep 26, 2012 PART B [id number] [phone] JUAN THOMPSON JR PATIENT Selected Encounter This section includes the information on record at [place] for the Encounter. Date/Time Encounter Type Encounter Description Reason Pro vider Source Nov 07, 2023 11:30 AM OFFICE O/P EST MOD 30 MIN PSYCHOGERIATRIC - INDIVIDUAL ICD-10-CM F31.76 Bipolar disorder, in full remis, most recent episode depress JANETTE HONEYCUTT IN [facility] Encounter Template Text not used by [place] Assessments - Encounter Diagnoses This section includes the primary and secondary diagnoses documented for the Encounter. Date/Time Primary/Secondary Diagnosis Diagnosis Name Provider Source Nov 08, 2023 02:07 PM PRIMARY Bipolar disorder, in full remis, most recent episode depress JOSE HONEYCUTT [facility] Nov 08, 2023 02:07 PM SECONDARY Visual hallucinations JOSE HONEYCUTT [facility] Plan of Treatment: Future Appointments (+ 6 months) and Future Tests (+/- 45 days) The Plan of Treatment section includes future care activities for the patient from all [place] treatment[facility]. This section includes future appointments and future orders which are active, pending or scheduled. Future Appointments This section includes appointments that were scheduled to occur 6 months from the date of the Encounter, up to a maximum of 20 appointments. The data comes from all [place] treatment facilities. Appointment Date/Time Appointment Type Appointme nt Facility Name Nov 20, 2023 09:00 AM AMBULATORY - [facility]UROLOGY [facility] December 05, 2023 09:30 AM AMBULATORY - PS[facility]CHIATRY [facility] Feb 07, 2024 11:00 AM AMBULATORY - NONE [facility] Feb 07, 2024 11:30 AM AMBULATORY - SURGERY [facility] Feb 07, 2024 12:30 PM AMBULATORY - NONE [facility] Feb 18, 2024 08:00 AM AMBULATORY - MEDICINE [facility] Mar 05, 2024 07:30 AM AMBULATORY - MEDICINE [facility] Mar 05, 2024 08:30 AM AMBULATORY - MEDICINE [facility] Mar 05, 2024 10:00 AM AMBULATORY - MEDICINE [facility] Mar 09, 2024 08:45 AM AMBULATORY - SURGERY [facility] Mar 16, 2024 09:00 AM AMBULATORY - MEDICINE [facility] Mar 16, 2024 10:15 AM AMBULATORY - NONE [facility] Mar 27, 2024 07:00 AM AMBULATORY - NONE [facility] Mar 31, 2024 07:00 AM AMBULATORY - NONE [facility] Apr 20, 2024 08:00 AM AMBULATORY - NONE [facility] Apr 20, 2024 09:30 AM AM[facility]ORY [facility]UROLOGY [facility] Apr 22, 2024 09:00 AM AMBULATORY - NONE [facility] Apr 22, 2024 10:00 AM AMBULATORY - MEDICINE [facility] Apr 29, 2024 10:30 AM AMBULATORY - SURGERY [facility] Lab Results: +/- 30 days of [...] Range Comment Nov 07, 2023 11:14 AM [facility] VIT D 25-OH,TOTAL Specimen Type: SERUM No comment entered. Ordering Provider: ISAEL ALVRAEZ Report Released Date/Time: Nov 07, 2023 10:08 AM Reporting Lab: [facility] [id number] Performing Lab: [facility] [id number] VIT D 25-OH,TOTAL 70 ng/mL H 12-50 Nov 07, 2023 09:38 AM [facility] VITAMIN A Specimen Type: SERUM Comment: Vitamin supplementation within 24 hours prior to blood draw may affect the accuracy of the results. This test was developed and its analytical performance characteristics have been determined by [facility] [place], [place]. It has not been cleared or approved by the U.S. Food and Drug Administration. This assay has been validated pursuant to the CLIA regulations and is used for clinical purposes. Test Performed by [facility], [facility] [place], [address] [place] [address] Devante Meyer M.D., Ph.D., Director of Laboratories , CLIA [id number] Ordering Provider: ISAEL ALVAREZ Report Released Date/Time: Jul 11, 2023 10:23 AM Reporting Lab: [facility] [id number] Performing Lab: [address] VITAMIN A 58 ug/dL 38-98 Nov 07, 2023 09:38 AM [facility] HEMOGLOBIN A1C Specimen Type: BLOOD [...] Jul 11, 2023 10:23 AM Reporting Lab: [facility] [id number] Performing Lab: [facility] [id number] HEMOGLOBIN A1C 6.4 H 4.0-6.0 Oct 09, 2023 08:35 AM [facility] HEMOGLOBIN A1C Specimen Type: BLOOD [...] Aug 29, 2023 04:30 PM Reporting Lab: [facility] [id number] Performing Lab: [facility] [id number] HEMOGLOBIN A1C 6.4 H 4.0-6.0 Oct 09, 2023 08:35 AM [facility] CBC Specimen Type: BLOOD No comment entered. Ordering Provider: LYUBOV YEUNG Report Released Date/Time: Aug 29, 2023 04:30 PM Reporting Lab: [facility] [id number] Performing Lab: [facility] [id number] WBC 7.18 10*3/uL 4.0-11.0 RBC 3.94 10*6/uL L 4.6-6.2 HGB 11.7 g/dL L 13.5-17.9 HCT 36.0 L 41-54 MCV 91.4 fL 80-100 MCH 29.7 pg 27-33 MCHC 32.5 g/dL 32.0-37.5 PLT 266 10*3/uL 150-400 MPV 9.7 fL 7.4-10.4 RDW 14.3 11.5-14.5 Oct 09, 2023 08:35 AM [facility] BASIC METABOLIC PANEL+MG Specimen Type: PLASMA No comment entered. Ordering Provider: LYUBOV YEUNG Report Released Date/Time: Aug 29, 2023 04:30 PM Reporting Lab: [facility] [id number] Performing Lab: [facility] [id number] CREATININE 1.1 mg/dL 0.7-1.2 UREA NITROGEN 22 [...] 97.6 80 118/68 16 94 177.7 27 [facility] Social History: Smoking Status (Most [...] Aj ity Aug 21, 2023 10:30 AM [place]-TOBACCO QUIT 15 YRS OR MORE [facility] Tobacco Use History This section includes a history of the smoking, or tobacco-related health factors, that were collected on or before the date of the Encounter. The data comes from the [place] facility where the Encounter took place. Date/Time Smoking Status/Tobacco Use Comment F acility Aug 21, 2023 10:30 AM [place]-TOBACCO QUIT 15 YRS OR MORE [facility] Aug 15, 2022 09:00 AM [place]-TOBACCO FORMER USER [facility] Aug 15, 2022 09:00 AM VA-TOBACCO QUIT 15 YRS OR MORE [facility] Aug 21, 2021 01:00 PM VA-TOBACCO FORMER USER [facility] Aug 21, 2021 01:00 PM VA-TOBACCO QUIT 15 YRS OR MORE [facility] Jul 09, 2018 08:58 AM VA-TOBACCO FORMER USER [facility] Jul 09, 2018 08:58 AM VA-TOBACCO QUIT 15 YRS OR MORE [facility] Jul 18, 2017 09:58 AM FORMER TOBACCO USER 7Y OR GREATE R [facility] Aug 14, 2016 10:59 AM FORMER TOBACCO USER 7Y OR GREATE R [facility] Jun 29, 2015 02:03 PM FORMER TOBACCO USER 7Y OR GREATE R [facility] Jan 06, 2014 03:04 PM FORMER TOBACCO USER 7Y OR GREATE R [facility] Jan 04, 2012 08:36 AM FORMER TOBACCO USER 7Y OR GREATE R [facility] Encounter Notes: All associated encounter notes This section contains the clinical notes associated to the Encounter. Date/Time Encounter Note(s) Provider Source Nov 07, 2023 11:32 AM PSYCHIATRY E & M NOTE: LOCAL TITLE: PSYCHIATRIC EVALUATION & MANAGEMENT STANDARD TITLE: PSYCHIATRY E & M NOTE DATE OF NOTE: NOV 07, 2023@11:32 ENTRY DATE: NOV 07, 2023@11:32:20 AUTHOR: LORETA HONEYCUTT COSIGNER: URGENCY: STATUS: COMPLETED PSYCHIATRIC EVALUATION AND MANAGEMENT FOLLOW UP VISIT INTERVAL HISTORY: Not feeling highs or lows, except during nightmares or bad dreams. He stopped bupropion , and denies any negative mood changes or adverse effects from stopping bupropion. Reports he has not had hallucinations in weeks, has not seen his mom and dad for quite a while. Reports at night has been havning a lot of waking up to go to the bathroom and some restlessness. He is sleeping in chunks. Can lie down and go to sleep for 3-4 hours, last night slept about 6 hours. Energy during the day is getting a little better, he is eating more protein and feeling a little stronger. He is engaging in physical therapy though that is going to end soon. Still falls asleep during the day but states he does not feel overmedicated. He reports mood has been very stable recently no severe depression in many years, and no recent psychotic symptoms. Reports he has been talking to his adult son more and working through some of the things that happened in son's childhood, and this has been a positive change. He reports working on his physical activity and future oriented. Discussed that aripriprazole my contribute to Parkinsonism and falls, has upcoming neurology appointment to further assess. Discussed we May consider decreasing aripriprazole to lowest effective dose, however it is likely important in mood stabilization and has helped resolve psychotic symptoms of delusions. SUBSTANCE USE: Denies current use of ETOH, [...] cognitive domains. Etiology is certainly multifactorial. The [place]'s psychiatric presentation likely plays a prominent role; symptoms of psychosis were evident during the current evaluation and appeared to affect his attention and ability to engage in the assessment; this may be outside sales representative insurance of his day-to-day functioning. Given his complex [...] as Alzheimer's disease is less likely. The [place]'s presentation is complex and symptoms may persist [...] December 2022 which have now appeared to improve, no further delusions or thought disorganization. Has chronic visual hallucinations intermittent VH of his parents which he finds entirely comforting. Mood is stable and believes depression has improved since increase in aripiprazole. He continues to endorse delusion that he communicated with event host in the past, though reports it is not currently occurring. Denies any command type auditory hallucinations, suicidal ideation, homicidal ideation, manic or hypomanic symptoms. 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 Has upcoming appointment with Neurology to further assess. Recently discontinued bupropion to reduce polypharmacy (bupropion strong CYP2D6 inhibitor may increase levels of aripriprazole and increase risk of adverse side effects including dizziness/falls) and patient mood and psychotic symptoms improved with aripriprazole increase. Will monitor and consider reducing aripriprazole to lowest effective dose. Recently discontinue bupropion so will wait another four weeks to fully appreciate the effect before making further changese. DIAGNOSIS: Bipolar Disorder, most recent episode depressed,mild [...] /pablo/ LORETA HONEYCUTT DO STAFF PSYCHIATRIST Signed: 11/08/2023 14:09 LORETA HONEYCUTT [facility]
--- OUTSIDE RECORDS SUMMARY | 2024-07-06 16:28 | XMS_ITS | Encounter Summary ---
Author Name [facility] [facility] [place] [facility] [place] Address [address] [place] [address] Care Team Providers Care Medical Administrative Technician Name Role Phone MARIUSZ PHILLIPS Primary Care [...] PART B Sep 26, 2012 PART B [id number] [facility] [phone] GIO THOMPSON JR PATIENT MEDICARE ([place]) MEDICARE (M) PART A Sep 26, 2012 PART A [id number] [phone] GIO THOMPSON JR PATIENT Selected Encounter This section includes the information on record at [place] for the Encounter. Date/Time Encounter Type Encounter Description Reason Provider Source Mar 16, 2024 09:00 AM OFFICE O/P EST MOD 30 MIN PRIMARY CARE/MEDICINE ICD-10-CM M25.552 Pain in left hip DIANNA RIBEIRO Encounter Template Text not used by [place] Assessments - Encounter Diagnoses This section includes the primary and secondary diagnoses documented for the Encounter. Date/Time Primary/Secondary Diagnosis Diagnosis Name Provider Source Mar 16, 2024 12:22 PM PRIMARY Pain in left hip DUONG FIELDS [facility] Mar 16, 2024 12:22 PM SECONDARY Bilateral primary osteoarthritis of hip DUONG FIELDS [facility] Mar 16, 2024 12:22 PM SECONDARY Fall same lev from slip/trip w/o strike against object, init DUONG FIELDS [facility] Mar 16, 2024 12:22 PM SECONDARY Pain in right [facility] Plan of Treatment: Future Appointments (+ 6 months) and Future Tests (+/- 45 days) The Plan of Treatment section includes future care activities for the patient from [facility] [place] [facility] This section includes future appointments and future orders which are active, pending or scheduled. Future Appointments This section includes appointments that were scheduled to occur 6 months from the date of the Encounter, up to a maximum of 20 appointments. The data comes from all [place] treatment facilities. Appointment Date/Time Appointment Type Appointme nt Facility Name Mar 27, 2024 07:00 AM AM[facility] - NONE [place] [facility] [facility] Mar 31, 2024 07:00 AM [facility] - NONE [place] [facility] Apr 20, 2024 08:00 AM [place]ONE [place] [facility] Apr 20, 2024 09:30 AM [place] [facility] Apr 22, 2024 09:00 AM [place] [facility] Apr 22, 2024 10:00 [facility] Apr 29, 2024 10:30 AM [place] [facility] May 13, 2024 12:00 PM [facility] - NONE [place] [facility] [facility] May 13, 2024 01:00 PM [place]IC[place] [facility] May 20, 2024 09:45 AM AM[facility]ORY - NONE [place] [facility] [facility] May 26, 2024 09:15 AM [place]IC[place] [facility] Jun 03, 2024 10:00 AM [place]IC[place] [facility] Jun 04, 2024 09:30 AM [place] [facility] Jun 05, 2024 01:30 PM [place]IC[place] [facility] Jun 12, 2024 07:30 AM [place] [place] [facility] Jun 12, 2024 08:30 AM [facility] Jun 23, 2024 10:15 AM [place]IC[place] [facility] Jul 06, 2024 08:30 AM [facility] [place] NONE [place] [facility] [facility] Jul 16, 2024 07:30 AM [facility] Jul 16, 2024 08:30 AM [facility] Active, Pending, and Scheduled Orders This section includes a listing of several types of active, pending, and scheduled orders, including clinic medications orders, diagnostic test orders, procedure orders and consult orders; where thestart date of the order is 45 days before the date of the Encounter or 45 days after the date of the Encounter. The data comes from all [place] treatment facilities. Test Date/Time Test Type Test Details Facility Name Mar 18, 2024 05:05 PM Consult Order CARDIAC EC HO OUTPT-ALL SITES Cons Payroll Coordinator's Choice [facility] Lab Results: +/- 30 days [...] Range Comment Mar 05, 2024 09:55 AM [facility] VITAMIN B-1,BLOOD Specimen Type: BLOOD Comment: Vitamin supplementation within 24 hours prior to blood draw may affect the accuracy of the results. This test was developed and its analytical performance characteristics have been determined by [employer] [place]. It has not been cleared or approved by the U.S. Food and Drug Administration. This assay has been validated pursuant to the CLIA regulations and is used for clinical purposes. Test Performed by [facility] [place], [facility]d [facility], [address] [place] [address] Devante Meyer M.D., Ph.D., Director of Laboratories , CLIA [id number] Ordering Provider: INDERJIT MORGAN Report Released Date/Time: Mar 05, 2024 09:40 AM Reporting Lab: [place] [address] Performing Lab: [address] VITAMIN B-1,BLOOD 125 nmol/L 78-185 Mar 05, 2024 09:55 AM [facility] VITAMIN A Specimen Type: SERUM Comment: Vitamin supplementation within 24 hours prior to blood draw may affect the accuracy of the results. This test was developed and its analytical performance characteristics have been determined by [employer] [place], [place]. It has not been cleared or approved by the U.S. Food and Drug Administration. This assay has been validated pursuant to the CLIA regulations and is used for clinical purposes. Test Performed by [facility] [place], [address] [place] [address] Devante Meyer M.D., Ph.D., Director of Laboratories , CLIA [id number] Ordering Provider: INDERJIT MORGAN Report Released Date/Time: Mar 05, 2024 09:40 AM Reporting Lab: [place] [address] Performing Lab: [address] VITAMIN A 54 ug/dL 38-98 Mar 05, 2024 09:55 AM [facility] ZINC Specimen Type: SERUM Comment: This test was developed and its analytical performance characteristics have been determined by [employer] [place], [place]. It has not been cleared or approved by the U.S. Food and Drug Administration. This assay has been validated pursuant to the CLIA regulations and is used for clinical purposes. Test Performed by [facility] [place], [address] [place] [address] Devante Meyer M.D., Ph.D., Director of Laboratories , CLIA [id number] Ordering Provider: INDERJIT MORGAN Report Released Date/Time: Mar 05, 2024 09:40 AM Reporting Lab: [address] Performing Lab: [facility] [address] [facility] ZINC 96 ug/dL 60-130 Mar 05, 2024 09:55 AM [facility] COPPER Specimen Type: PLASMA Comment: This test was developed and its analytical performance characteristics have been determined by [employer] [place], [place]. It has not been cleared or approved by the U.S. Food and Drug Administration. This assay has been validated pursuant to the CLIA regulations and is used for clinical purposes. Test Performed by [facility], [facility], [address] [place] [address] Devante Meyer M.D., Ph.D., Director of Laboratories , CLIA [id number] Ordering Provider: INDERJIT MORGAN Report Released Date/Time: Mar 05, 2024 09:40 AM Reporting Lab: [place] [address] Performing Lab: [address] COP[place] 99 ug/dL 70-175 Mar 05, 2024 09:55 AM [facility] TSH W/REFLEX TO FREE T4 Specimen Type: PLASMA No comment entered. Ordering Provider: INDERJIT MORGAN Report Released Date/Time: Mar 05, 2024 09:40 AM Reporting Lab: [place] [id number] Performing Lab: [place] [id number] TSH 2.01 u[IU]/mL 0.35-4.94 Mar 05, 2024 09:55 AM [facility] FERRITIN Specimen Type: SERUM No comment entered. Ordering Provider: INDERJIT MORGAN Report Released Date/Time: Mar 05, 2024 09:40 AM Reporting Lab: [facility] [address] Performing Lab: [place] [address] FERRITIN 191.6 ng/mL 21.8-274.7 Mar 05, 2024 09:55 AM [facility] PRE-ALBUMIN Specimen Type: SERUM No comment entered. Ordering Provider: INDERJIT MORGAN Report Released Date/Time: Mar 05, 2024 09:40 AM Reporting Lab: [facility] [address] Performing Lab: [facility] [address] PRE-ALBUMIN 19.9 mg/dL 14.0-45.0 Mar 05, 2024 09:55 AM [facility] B 12 Specimen Type: PLASMA No comment entered. Ordering Provider: INDERJIT MORGAN Report Released Date/Time: Mar 05, 2024 09:40 AM Reporting Lab: [facility] [address] Performing Lab: [facility] [address] B 12 864 pg/mL H 213-816 Mar 05, 2024 09:55 AM [facility] LIPID PANEL,NON-FASTING Specimen Type: PLASMA No comment entered. Ordering Provider: INDERJIT MORGAN Report Released Date/Time: Mar 05, 2024 09:40 AM Reporting Lab: [facility] [address] Performing Lab: [facility] [address] CHOLESTEROL 111 mg/dL <199 .HDL 45 mg/dL >40 LDL CALCULATION 54 mg/dL <99 VLDL CALCULATION 12 mg/dL <29 NON HDL CHOLESTEROL 66 mg/dL <129 TRIG(NON FASTING) 60 mg/dL <149 Mar 05, 2024 09:55 AM [facility] FOLATE Specimen Type: SERUM No comment entered. Ordering Provider: INDERJIT MORGAN Report Released Date/Time: Mar 05, 2024 09:40 AM Reporting Lab: [facility] [address] Performing Lab: [facility] [address] FOLATE 14.5 ng/mL >7.0 Mar 05, 2024 09:55 AM [facility] VIT D 25-OH,TOTAL Specimen Type: SERUM No comment entered. Ordering Provider: INDERJIT MORGAN Report Released Date/Time: Mar 05, 2024 09:40 AM Reporting Lab: [facility] [address] Performing Lab: [facility] [address] VIT D 25-OH,TOTAL 71 ng/mL H 12-50 Mar 05, 2024 09:55 AM [facility] COMPREHENSIVE METABOLIC PANEL+MG Specimen Type: PLASMA No comment entered. Ordering Provider: INDERJIT MORGAN Report Released Date/Time: Mar 05, 2024 09:40 AM Reporting Lab: [facility] [address] Performing Lab: [facility] [address] CREATININE 1.1 mg/dL 0.7-1.2 UREA NITROGEN 19 [...] 70 >60 Mar 05, 2024 09:55 AM [facility] CALCIUM Specimen Type: PLASMA No comment entered. Ordering Provider: INDERJIT MORGAN Report Released Date/Time: Mar 05, 2024 09:40 AM Reporting Lab: [facility] [address] Performing Lab: [facility] [address] CALCIUM 9.6 mg/dL 8.4-10.2 Mar 05, 2024 09:55 AM [facility] CBC & DIFF Specimen Type: BLOOD Comment: Automated Differential Performed Ordering Provider: INDERJIT MORGAN Report Released Date/Time: Mar 05, 2024 09:40 AM Reporting Lab: [facility] [address] Performing Lab: [facility] [address] WBC 6.85 10*3/uL 4.0-11.0 RBC 4.20 10*6/uL [...] 10*3/uL 0-0.1 Mar 05, 2024 09:55 AM [facility] MAGNESIUM Specimen Type: PLASMA No comment entered. Ordering Provider: INDERJIT MORGAN Report Released Date/Time: Mar 05, 2024 09:40 AM Reporting Lab: [facility] [address] Performing Lab: [facility] [address] MAGNESIUM 1.4 mg/dL L 1.6-2.6 Mar 05, 2024 09:55 AM [facility] PTH-N-TACT Specimen Type: SERUM No comment entered. Ordering Provider: INDERJIT MORGAN Report Released Date/Time: Mar 05, 2024 09:40 AM Reporting Lab: [facility] [address] Performing Lab: [facility] [address] PTH-N-TACT 26.5 pg/mL 8.7-77.1 Mar 05, 2024 09:55 AM [facility] IRON GROUP Specimen Type: SERUM No comment entered. Ordering Provider: INDERJIT MORGAN Report Released Date/Time: Mar 05, 2024 09:40 AM Reporting Lab: [facility] [address] Performing Lab: [facility] [address] IRON 59 ug/dL L 65-175 TIBC,CALCULATE D 258 ug/dL 250-425 FERRITIN 191.6 ng/mL 21.8-274.7 IRON SATURATION 23 20-50 TRANSFERRIN 206 mg/dL 163-382 Mar 05, 2024 09:54 AM [facility] VITAMIN A Specimen Type: SERUM Comment: Vitamin supplementation within 24 hours prior to blood draw may affect the accuracy of the results. This test was developed and its analytical performance characteristics have been determined by [employer] [place], [place]. It has not been cleared or approved by the U.S. Food and Drug Administration. This assay has been validated pursuant to the CLIA regulations and is used for clinical purposes. Test Performed by [facility], [facility], [address] [place] [address] Devante Meyer M.D., Ph.D., Director of Laboratories , CLIA [id number] Ordering Provider: INDERJIT MORGAN Report Released Date/Time: Mar 05, 2024 09:40 AM Reporting Lab: [facility] [address] Performing Lab: [address] VITAMIN A 54 ug/dL 38-98 Mar 05, 2024 07:35 AM [facility] HEMOGLOBIN A1C Specimen Type: BLOOD [...] Nov 07, 2023 10:56 AM Reporting Lab: [facility] [address] Performing Lab: [facility] [address] HEMOGLOBIN A1C 6.6 H 4.0-6.0 Vital Signs: All taken on the encounter date This section contains inpatient and outpatient Vital Signs collected on the date of the Encounter. Date/Time Temperature Pulse Blood Pressure Respiratory Rate SP02 Pain Height Weight Body Mass Index Source Mar 16, 2024 09:03 AM 97.8 71 132/76 16 98 9 156.8 24 [facility] G[facility]ING [facility] Social History: Smoking Status (Most current) and Tobacco Use (All prior to encounter date) This section includes the most current, and the historical, smoking and tobacco- related health factors from the [facility] where the Encounter took place. Current Smoking Status This section includes the most current smoking, or tobacco-related health factor, from the [place] facility where the Encounter took place. Date/Time Current Smoking Status Comment Facil ity Aug 21, 2023 10:30 AM [place]-TOBACCO FORMER USER [facility] Tobacco Use History This section includes a history of the smoking, or tobacco-related health factors, that were collected on or before the date of the Encounter. The data comes from the [place] facility where the Encounter took place. Date/Time Smoking Status/Tobacco Use Comment F acility Aug 21, 2023 10:30 AM VA-TOBACCO QUIT 15 YRS OR MORE [facility] Aug 15, 2022 09:00 AM VA-TOBACCO FORMER USER [facility] Aug 15, 2022 09:00 AM VA-TOBACCO QUIT 15 YRS OR MORE [facility] Aug 21, 2021 01:00 PM VA-TOBACCO FORMER USER [facility] Aug 21, 2021 01:00 PM VA-TOBACCO QUIT 15 YRS OR MORE [facility] Jul 09, 2018 08:58 AM VA-TOBACCO FORMER USER [facility] Jul 09, 2018 08:58 AM VA-TOBACCO QUIT 15 YRS OR MORE [facility] Jul 18, 2017 09:58 AM FORMER TOBACCO USER 7Y OR GREATE R [facility] Aug 14, 2016 10:59 AM FORMER TOBACCO USER 7Y OR GREATE R [facility] Jun 29, 2015 02:03 PM FORMER TOBACCO USER 7Y OR GREATE R [facility] Jan 06, 2014 03:04 PM FORMER TOBACCO USER 7Y OR GREATE R [facility] Jan 04, 2012 08:36 AM FORMER TOBACCO USER 7Y OR GREATE R [facility] Radiology Reports: +/- 30 days [...] the Encounter. The data comes from all [place] treatment facilities. Date/Time Radiology Report Provider Source Mar 16, 2024 10:09 AM HIP LEFT 2 VIEWS W /PELVIS: GIO THOMPSON [id number] -[id number] M Exm Date: MAR 16, 2024@10:09 Req Phys: DUONG FIELDS Pat Loc: [facility] APACT A RES 05 WH 4F (Req' Img Loc: MAIN X-RAY Service: [place] [address] (Case [id number] COMPLETE) HIP LEFT 2 VIEWS W/PELVIS (RAD Detailed) CPT:42056 Proc Modifiers : LEFT Reason for Study: mechanical fall 3 days ago Clinical History: Laurel Bloomery IS NOT under investigation for COVID-19 or is COVID-19 negative mechanical fall three days ago, rule out fracture. Responsible provider name and phone number to notify for critical findings if other than user placing the order and pager listed below: User placing orders pager: LAST CREATININE 1.1 (03/05/24) Report Status: Verified Date Reported: MAR 16, 2024 Date Verified: MAR 16, 2024 Derrick Follower E-Sig: Report: HIP LEFT 2 VIEWS W/PELVIS HISTORY: mechanical fall 3 days ago COMPARISON: Left hip series 08/28/2022 TECHNIQUE: AP view of the pelvis, and AP and frog-leg views of the left hip, submitted to the [place] [facility] T[facility] (NTP) for interpretation. FINDINGS: [...] hip joint OA. READING PHYSICIAN: Jere Johnson -[id number] 03/16/2024 14:24 CDT [facility] National Teleradiology Program [phone] (For Medical Practitioner Use Only) Attention Patients / Veterans: If you have questions or concerns about these test results, please contact your ordering provider or primary care team. Primary Interpreting Staff: RADIOLOGY,OUTSIDE SERVICE, Staff Physician / RADIOLOGY,OUTSIDE SERVICE [facility] Encounter Notes: All associated encounter notes This section contains the clinical notes associated to the Encounter. Date/Time Encounter Note(s) Provider Source Mar 16, 2024 11:55 AM INTERNAL MEDICINE NOTE: LOCAL TITLE: MEDICINE CLINIC NOTE STANDARD TITLE: INTERNAL MEDICINE NOTE DATE OF NOTE: MAR 16, 2024@11:55 ENTRY DATE: MAR 16, 2024@11:55:23 AUTHOR: DUONG FIELDS COSIGNER: URGENCY: STATUS: COMPLETED MEDICINE CLINIC NOTE Has ADDENDA GIO THOMPSON is a 78 year old MALE with the following chief complaint: left hip pain Nurse's Note Reviewed. HPI/ROS: Gio is a 78 year old male with a PMHx of obesity s/p Nora-en-y 2011, bilateral knee OA, right hip OA, falls, parkinsonism, DM2, who presents today to clinic to discuss left hip pain. This is my first visit with the . He presents alone. Left hip pain: called into triage line reporting left hip pain x 6 months. Reports on Saturday (3 days ago) he had a ground level mechanical fall outside while trying to reach up high into a trash container and fell on the concrete ground. Stated he fell onto the left side. Noted a small bump on the head. No loss of consciousness with the fall, no dizziness. States he sat up immediately and a bystander helped him to his feet. Fall occurred at his independent living facility in [place] where he resides. Did not seek medical attention following this event. Reports the left hip pain is achy and sore since the fall. Endorses anterior thigh pain as well that is also described as an ache and this has been present for 6+ months. No change in sensation or strength. Denies radicular symptoms. Denies fevers, chills, or cauda equina symptoms. Has been able to walk with his walker (baseline) since the fall. Has a history of bilateral knee OA and right hip OA of which he has been following with orthopedics for. Most recent visit with orthopedics 01/2024. ROS - No fevers or chills - No chest pain - No shortness of breath - No orthopnea or PND - No peripherial edema - No nausea or vomiting - No diarrhea or constipation - No change in bowel habits or stools Past medical history/Active Problems: Active problems - Computerized Problem List is the source for the followin. Essential hypertension (SNOMED CT 56445592) 2. Major depressive disorder (SNOMED CT 741537524) 3. Generalized anxiety disorder (SNOMED CT 77838746) 4. Primary Obesity 5. Bronchiectasis (SNOMED CT 64115715) 6. Gastroesophageal reflux disease (SNOMED CT 131263618) 7. Bariatric Surgery Status 8. Cataracts (SNOMED CT 56144833) 9. Hypermetropia/Hyperopia 10. Astigmatism, Unspec 11. Presbyopia 12. Atrial fibrillation (SNOMED CT 48834267) 13. Varicose veins of lower extremity 14. Compulsive gambling 15. Bipolar disorder (SNOMED CT 83004517) 16. Mild cognitive disorder 17. Type 2 diabetes mellitus 18. Long-term current use of anticoagulant 19. Gastritis 20. Dementia EXAM: VS: Temp: 97.8 F [36.6 C] (03/16/2024 09:03) BP: 132/76 (03/16/2024 09:03) Pulse:71 (03/16/2024 09:03) Resp: 16 (03/16/2024 09:03) Pain: 9 (03/16/2024 09:03) Weight: WEIGHTS IN LAST 6 MONTHS - NONE FOUND O2 sat: 98% (03/16/2024 09:03) General Appearance: No acute distress Head: normocephalic, atraumatic, moist mucous membranes, posterior oropharynx is clear or erythema orexudate Eyes: Sclera without icterus, PERRLA Neck/Thyroid: No adenopathy Cardiac: RRR, No murmurs, gallops, rubs Chest/Lungs: Bilaterally clear with no respiratory distress Abdominal: Normal - Normal bowel sounds, Non-tender Extremities: No edema Neurological: Alert and oriented, hypophonia, Strength 5/5 in UE and LE. CN II- XII grossly intact Psych: Clear speech Left hip: No visible hip deformity, erythema, edema or ecchymosis. No tenderness over the greater trochanter or SI joint. No tenderness over lumbar spine to palpation. Mild decrease in PROM of hip adduction and abduction. Negative SANAZ test. Slow shuffling gait. No reproduceable radiating pain on hip or lower extremity manuevers. Intact motor and sensory fuction. Distal pulses PT/DP palpable today. Data/Labs: SPINE LUMBOSACRAL 2 OR 3 VIEWS 02/07/2024 INDICATION: radiating right lower extremity pain COMPARISON: None. FINDINGS: Five lumbar vertebral bodies. Small T12 ribs. Lordosis normal. Mild S-shaped asymmetry convex right superiorly and convex left inferiorly. Vertebral body heights are maintained. Rxty-[id number] diffuse disc space narrowing. Modest degree of facet arthropathy. No acute superimposed bony finding. Moderate aortic calcification. Normal caliber. Clips from cholecystectomy. Stool impaction in the colon. Advanced degenerative change of the right hip. 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 No acute bony finding. Advanced degenerative change of the right hip. EXAMINATION: HIP RIGHT 2 VIEWS W/PELVIS 02/07/2024 [...] is intact. No acute fracture or dislocation. Report: EXAMINATION: HIP LEFT 2 VIEWS W/PELVIS [...] the iliac bones. There are pelvic phleboliths. Assessment and Plan: Gio is a 78 year old male with a PMHx of obesity s/p Nora-en-y 2011, bilateral knee OA, right hip OA, falls, parkinsonism, DM2, who presents today to clinic to discuss left hip pain. This is my first visit with the . # Left hip pain s/p ground level mechanical fall # known mild left hip joint degenerative changes on radiographs Overall pain is relatively well controlled with current regiment. He still has limited activity but no changes in activity level prior to the fall. - Xray of left hip today to rule out fracture or other trauma. No ecchymosis noted on bilateral hips or back which is reassuring. - Continue tylenol on regular schedule. Instructed to take three times per day - Continue using lidocaine patches as prescribed. Reports these are helpful in managing the chronic left anterior thigh pain - Can apply diclofenac gel to left hip up to QID for pain - Consider PT - No neurological changes/concerns, so will defer any head imaging today. Reviewed red flag sx and when to seek care. - Reviewed importance of avoiding NSAIDs due to apixaban use, he reports compliance with this # Chronic right hip pain - OA # Chronic bilateral knee pain - OA Stable. No acute changes following his reported fall. Is following with orthopedics for evaluation/consideration of right MARK. Missed a phone call last week from ortho to follow up on xray results. He has not yet scheduled this appt. Instructed to stop at orthopedics office to make follow up appt. Per orthopedics, We will hold off on scheduling him for a right MARK until the underlying cause of his frequent falls is detrmined and addressed. Has an appt scheduled with neurology next month. All other cares deferred today. Had annual exam 09/2023 with plan for RTC 6 months (03/2024) for 6 month check up with PCP. Patient staffed with Dr. Ribeiro Education on Treatment Plan: Patient indicates readiness [...] reason for use, and potential side effects). No new medications or medication changes during this encounter. TERATOGENIC MED & CONTRACEPTION REVIEW (Optional)... MEDICATION RECONCILIATION Review Done: The medication list shown below was verified for accuracy and it includes all pending medications/active medications/all medications or discontinued within the last 90 days/all remote medications and non-VA medications. If a given category (i.e. remote meds) is not shown, that means that a patient doesn't have a medication(s) in that category. Allergies listed below were also reviewed/updated for accuracy. Allergies/ADR from [facility] may not display in [facility]. Use [facility] MRT5 - Allergies/ADRs FACILITY ALLERGY/ADR -------- No Remote Allergy/ADR Data available for this patient [facility] EMPAGLIFLOZIN [facility] SULFAMETHOXAZOLE Active and Recently Outpatient Medications (including Supplies): Issue Date Status Last Fill Active Outpatient Medications Refills Expiration 1) ACETAMINOPHEN 500MG TAB Qty: 100 for 25 ACTIVE Issu:10-09-23 days Sig: TAKE ONE TABLET BY MOUTH Refills: 3 Last:10-10-23 EVERY 6 HOURS NEEDED FOR PAIN Expr:10-09-24 2) ALBUTEROL 90MCG (CFC-F) 200D ORAL INHL ACTIVE Issu:10-09-23 Qty: 2 for 50 days Sig: INHALE 2 Refills: 6 Last:10-10-23 PUFFS BY INHALATION FOUR TIMES A DAY Expr:10-09-24 NEEDED FOR SHORTNESS OF BREATH 3) APIXABAN 5MG TAB Qty: 180 for 90 days ACTIVE Issu:12-05-23 Sig: TAKE ONE TABLET BY MOUTH EVERY 12 Refills: 3 Last:12-22-23 HOURS TO PREVENT AND/OR TREAT BLOOD Expr:12-05-24 CLOTS 4) ARIPIPRAZOLE 20MG TAB Qty: 90 for 90 ACTIVE Issu:12-05-23 days Sig: TAKE ONE TABLET BY MOUTH Refills: 3 Last:12-22-23 EVERY DAY FOR BIPOLAR DISORDER DOSE Expr:12-05-24 INCREASED 11-23-22 5) ATORVASTATIN CALCIUM 10MG TAB Qty: 90 ACTIVE Issu:10-09-23 for 90 days Sig: TAKE ONE TABLET BY Refills: 2 Last:03-09-24 MOUTH AT BEDTIME Expr:10-09-24 6) CALCIUM 200MG (CA CITRATE-950MG) TAB ACTIVE Issu:11-13-23 Qty: 400 for 90 days Sig: TAKE TWO Refills: 2 Last:03-09-24 TABLETS BY MOUTH TWICE A DAY FOR Expr:11-13-24 CALCIUM SUPPLEMENT 7) CYANOCOBALAMIN 1000MCG TAB Qty: 100 for ACTIVE Issu:03-09-24 90 days Sig: TAKE ONE TABLET BY MOUTH Refills: 3 Last:03-11-24 EVERY DAY Expr:03-10-25 8) DICLOFENAC NA 1% TOP GEL Qty: 100 for ACTIVE Issu:11-13-23 30 days Sig: APPLY 4 GRAMS TOPICALLY Refills: 2 Last:03-09-24 FOUR TIMES A DAY NEEDED TO AFFECTED Expr:11-13-24 AREA FOR PAIN 9) FERROUS SULFATE 325MG TAB Qty: 100 for ACTIVE Issu:01-13-24 90 days Sig: TAKE ONE TABLET BY MOUTH Refills: 3 Last:01-14-24 EVERY DAY FOR IRON SUPPLEMENT Expr:01-13-25 10) LIDOCAINE 5% PATCH Qty: 30 for 30 days ACTIVE Issu:10-09-23 Sig: APPLY 1 PATCH TOPICALLY EVERY DAY Refills: 3 Last:02-10-24 FOR UP TO 12 HOURS FOR PAIN Expr:10-09-24 11) MAGNESIUM OXIDE 400MG TAB Qty: 120 for ACTIVE Issu:06-17-23 60 days Sig: TAKE TWO TABLETS BY Refills: 1 Last:03-07-24 MOUTH EVERY DAY FOR SUPPLEMENTATION Expr:06-17-24 12) METFORMIN HCL 500MG TAB Qty: 60 for 60 ACTIVE Issu:06-12-23 days Sig: TAKE ONE TABLET BY MOUTH Refills: 2 Last:01-13-24 EVERY DAY FOR DIABETES *NOTE:WHOLE Expr:06-12-24 TABLETS 13) METOPROLOL SUCCINATE 25MG SA TAB Qty: ACTIVE Issu:10-09-23 270 for 90 days Sig: TAKE THREE Refills: 2 Last:12-16-23 TABLETS BY MOUTH EVERY DAY FOR HEART Expr:10-09-24 AND BLOOD PRESSURE 14) MULTIVIT/OPHTH AREDS2/LUTE/ZEAX CAP/TAB ACTIVE Issu:02-24-24 Qty: 120 for 60 days Sig: TAKE 1 Refills: 5 Last:02-25-24 CAP/TAB BY MOUTH TWICE A DAY WITH Expr:02-24-25 MEALS 15) MULTIVITAMIN CAP/TAB Qty: 100 for 90 ACTIVE Issu:03-11-24 days Sig: TAKE 1 TABLET BY MOUTH Refills: 3 Last:03-11-24 EVERY DAY FOR SUPPLEMENT Expr:03-12-25 16) OMEPRAZOLE 40MG EC CAP Qty: 180 for 90 ACTIVE Issu:09-19-23 days Sig: TAKE ONE CAPSULE BY MOUTH Refills: 2 Last:01-13-24 TWICE A DAY ON AN EMPTY STOMACH, AT Expr:09-19-24 LEAST 30 MINUTES PRIOR TO A MEAL TO DECREASE STOMACH ACID 17) VENLAFAXINE HCL 150MG 24HR SA CAP Qty: ACTIVE Issu:12-05-23 90 for 90 days Sig: TAKE ONE CAPSULE Refills: 3 Last:02-01-24 BY MOUTH EVERY DAY Expr:12-05-24 Issue Date Status Last Fill Inactive Outpatient Medications Refills Expiration 1) ARIPIPRAZOLE 20MG TAB Qty: 90 for 90 DISCONTINUED Issu:11-23-22 days Sig: TAKE ONE TABLET BY MOUTH Refills: 0 Last:10-03-23 EVERY DAY FOR BIPOLAR DISORDER DOSE Expr:11-24-23 INCREASED 11-23-22 2) BUPROPION HCL 150MG 24HR SA TAB Qty: 90 DISCONTINUED Issu:11-23-22 for 90 days Sig: TAKE ONE TABLET BY Refills: 1 Last:08-13-23 MOUTH EVERY MORNING Expr:11-24-23 3) CHOLECALCIF 25MCG (D3-1,000UNIT) TAB DISCONTINUED Issu:10-30-23 Qty: 100 for 90 days Sig: TAKE ONE Refills: 3 Last:11-01-23 TABLET BY MOUTH EVERY DAY Expr:10-30-24 4) CYANOCOBALAMIN 1000MCG TAB Qty: 100 for DISCONTINUED Issu:11-27-22 90 days Sig: TAKE ONE TABLET BY MOUTH Refills: 0 Last:11-01-23 EVERY DAY Expr:11-28-23 5) MULTIVIT/OPHTH AREDS2/LUTE/ZEAX CAP/TAB DISCONTINUED Issu:12-27-22 Qty: 120 for 60 days Sig: TAKE 1 Refills: 0 Last:12-10-23 CAP/TAB BY MOUTH TWICE A DAY WITH Expr:12-28-23 MEALS 6) SEMAGLUTIDE 0.25MG/0.375ML INJ PEN 3ML DISCONTINUED Issu:12-03-23 Qty: 1 for 28 days Sig: INJECT 0.5MG Refills: 7 Last:02-17-24 UNDER THE SKIN EVERY WEEK DIABETES AND Expr:12-03-24 WEIGHT LOSS 7) VENLAFAXINE HCL 150MG 24HR SA CAP Qty: DISCONTINUED Issu:11-23-22 90 for 90 days Sig: TAKE ONE CAPSULE Refills: 0 Last:11-13-23 BY MOUTH EVERY DAY Expr:11-24-23 24 Total Medications /es/ DUONG FIELDS NURSE PRACTITIONER RESIDENT Signed: 03/16/2024 12:22 03/18/2024 ADDENDUM STATUS: COMPLETED Called patient on 03/18/24 to review weight loss. Patient's weight was 224 lbs on 08/15/22, but has decreased to 157 lbs by 03/16/24. Patient had been on semaglutide from 10/2022 until early 02/2024. he had a nora-en-y bypass ~14 years ago. However weight loss over this time (67 lbs) exceeds what would be expected for semaglutide. Patient denies fevers, chills, or night sweats. However, he does note some axillary and cervical lymphadenopathy that has been worrying him. He drinks an ensure daily. 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 He reports several negative HIV/TB tests at work. Laboratory workup including CBC, CMP, pre-albumin, iron studies, TSH have been nonrevealing At this point, weight loss remians unexplained. We will plan for follow-up in clinic for thorough exam (lymph nodes, spleen). We will also order a CT C/A/P to evlaluate for malignancy Of note, TTE demonstrated mild aortic stenosis and regurgitation, will plan to monitor in 1 year Plan: - Follow-up in clinic in ~2 weeks for thorough exam (including evaluation for lymphadenoapthy and splenomegaly) - CT C/A/P for malignancy eval - if malignancy workup is negative, will plan for supervisor inspection consultation - Repeat TTE in 1 year for monitoring of mild /AR /es/ RACHEL WATSON MD RESIDENT PHYSICIAN Signed: 03/18/2024 16:58 03/24/2024 ADDENDUM STATUS: COMPLETED I have reviewed this patient's history (obtained by the resident), pertinent physical examination (performed by the resident), and, when obtained and available, pertinent laboratory, radiologic or other diagnostic tests with the resident evaluating this patient. I agree with the treatment plan as outlined. This plan was reviewed with the resident on the date of this note. /es/ Dianna Ribeiro MD STAFF PHYSICIAN Signed: 03/24/2024 15:06 DONNIEDUONG [facility] Mar 16, 2024 09:08 AM INTERNAL MEDICINE OUTPATIENT NOTE: LOCAL TITLE: MEDICINE CLINIC NURSING NOTE STANDARD TITLE: INTERNAL MEDICINE OUTPATIENT NOTE DATE OF NOTE: MAR 16, 2024@09:08 ENTRY DATE: MAR 16, 2024@09:08:24 AUTHOR: BUSHRA WILLIS EXP COSIGNER: URGENCY: STATUS: COMPLETED TYPE OF VISIT: Appointment Check In Type of appointment: In-person appointment REASON FOR VISIT: Annual ALLERGIES: SULFAMETHOXAZOLE (Feb 07, 2022) EMPAGLIFLOZIN (Jun 06, 2022) VITAL SIGNS: Blood Pressure: 132/76 (03/16/2024 09:03) Pulse: 71 (03/16/2024 09:03) Respiration: 16 (03/16/2024 09:03) Temperature: 97.8 F [36.6 C] (03/16/2024 09:03) Weight: 156.8 lb. [71.12 kg] (03/16/2024 09:03) Height: 68 in [172.7 cm] (10/09/2023 09:43) BMI: 23.9 O2 Sat: 98% (03/16/2024 09:03) Pain: 9 (03/16/2024 09:03) PAIN SCREEN: Patient is having significant pain that they would like to talk to their provider about today. Acute pain is new pain, which as been present for less than 6 months Words used to describe pain: achy Number that best describes pain intensity on average in the past week: 6 Pain located in the following location(s): other: Gluteal Pain has been happening for: less than one week Pain is worse when: sitting, other: Laying Pain is better when: medication Lidocaine patches MEDICATION Over the Counter/Herbal Medications: The patient states that they take some outside medications and/or herbals. Nursing Annual Screening: Whole Health Screen is due OR due soon (within 90 days). Whole Health Screening Why is addressing your overall health important to you? Want to live to an older age What do you want your health for (why do you want to be healthy)? Writting a book, want to be independent /pablo/ BUSHRA Cox. LAZARO JOYA Signed: 03/16/2024 09:18 BUSHRA WILLIS [facility]
[2024-07-06 16:36] LABS: Lactate* 1.1 mmol/L (0.5-1.9)
[2024-07-06 16:37] LABS: Basophils Absolute Auto 0.02 K/uL (0.00-0.30); Basophils Percent Auto 0.4 % (0.0-3.0); Eosinophils Absolute Auto 0.29 K/uL (0.00-0.50); Eosinophils Percent Auto 5.3 % (0.0-7.0); Hematocrit 35.3 % (37.0-53.0); Hemoglobin* 11.1 gm/dL (13.5-17.5); Lymphocytes Absolute Auto 1.82 K/uL (0.90-2.90); Lymphocytes Percent Auto 33.5 % (20-44); Mean Corpuscular HGB Conc 31 gm/dL (32-36); Mean Corpuscular Hemoglobin 29 pg (26-34); Mean Corpuscular Volume 92 fL (80-100); Monocytes Percent Auto 12.1 % (0.0-11.0); Neutrophils Absolute Auto 2.65 K/uL (1.7-7.0); Neutrophils Percent Auto 48.7 % (42.0-72.0); Platelet Count* 259 K/uL (140-440); RDW Coefficient of Variation % 13.8 % (11.5-15.5); Red Blood Count 3.82 m/uL (4.30-5.90); White Blood Count* 5.44 K/uL (4.50-11.00)
[2024-07-06 16:39] VITALS: PULSE 65; RESP 14; O2SAT 98
[2024-07-06 16:54] LABS: Albumin* 4.1 g/dL (3.3-5.0); Chloride* 102 mmol/L (96-114)
[2024-07-06 16:55] LABS: Potassium* 4.1 mmol/L (3.6-5.1); Slide Review Reflex No; Sodium* 139 mmol/L (135-149)
[2024-07-06 16:57] LABS: Bilirubin Total* 0.2 mg/dL (0.1-1.5); Creatinine* 0.9 mg/dL (0.5-1.5); Est. Creatinine Clearance* 64.89; Estimated Glomerular Filt Rate 89 ml/min
[2024-07-06 16:58] LABS: Alanine Aminotransferase* 16 U/L (4-50); Alkaline Phosphatase* 77 U/L (40-150); Anion Gap 4 mEq/L (7-15); Aspartate Amino Transferase* 21 U/L (12-35); Blood Urea Nitrogen* 27 mg/dL (7-30); Calcium* 9.5 mg/dL (8.4-10.6); Carbon Dioxide* 33 mmol/L (20-32); Glucose* 134 mg/dL (60-115); Total Protein* 6.3 g/dL (6.0-8.3)
[2024-07-06 17:00] VITALS: PULSE 56; O2SAT 98
[2024-07-06 17:06] LABS: C Reactive Protein* < 0.5 mg/dL (0.5-1.0)
[2024-07-06 17:18] LABS: NT Pro B Type NatriureticPept* 211 pg/mL; Troponin I* < 0.01 ng/mL (0.01-0.04)
[2024-07-06 17:30] VITALS: PULSE 66; RESP 14; O2SAT 98
[2024-07-06 18:18] VITALS: BP 127/73; PULSE 59; RESP 14; TEMP 36.8
--- OUTSIDE RECORDS SUMMARY | 2024-07-08 18:12 | XMS_ITS | Continuity of Care Document ---
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 It does not include entries that were removed or entered in error. Problem Status Onset Date Problem Type Date of Resolution Comments Source Anemia Active Condition [facility] Astigmatism, Unspec Active Condition [facility] Atrial fibrillation (SNOMED CT 61828737) Active Condition [facility] Bariatric Surgery Status (ICD-9-CM V45.86) Active Condition [facility] Bipolar disorder (SNOMED CT 51498905) Active Condition [facility] Bronchiectasis (SNOMED CT 44088315) Active Condition [facility] Cataracts (SNOMED CT 50510393) Active Condition [facility] Compulsive gambling Active Condition [facility] Dementia Active Condition [facility] Essential hypertension (SNOMED CT 52191608) Active Condition [facility] Gastritis Active Condition [facility] Gastroesophageal reflux disease (SNOMED CT 588047890) Active Condition [facility] Generalized anxiety disorder (SNOMED CT 56581875) Active Condition [facility] Hypermetropia/Hypero miguel Active Condition [facility] Long-term current use of anticoagulant Active Condition [facility] Major depressive disorder (SNOMED CT 539897519) Active Condition [facility] Mild cognitive disorder Active Condition [facility] Monoclonal gammopathy of uncertain significance Active Condition [facility] Presbyopia Active Condition [facility] Primary Obesity (ICD-9-CM 278.00) Active Condition [facility] Type 2 diabetes mellitus Active Condition [facility] Varicose veins of lower extremity Active Condition [facility] Diagnosis: ICD-10-CM R63.4 Abnormal weight loss Active Diagnosis [facility] Diagnosis: ICD-10-CM R91.1 Solitary pulmonary nodule Active Diagnosis [facility] Diagnosis: ICD-10-CM D47.2 Monoclonal gammopathy Active Diagnosis [facility] Diagnosis: ICD-10-CM R93.7 Abnormal findings on diagnostic imaging of prt ms sys Active Diagnosis [facility] Diagnosis: ICD-10-CM D64.9 Anemia, unspecified Active Diagnosis [facility] Diagnosis: ICD-10-CM 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, mild, w/o beh/psych/mood/anx Active Diagnosis [facility] [place] [facility] Diagnosis: ICD-10-CM R93.89 Abnormal findings on dx imaging of oth body structures Active Diagnosis [facility] Diagnosis: ICD-10-CM F03.A18 Unspecified dementia, mild, with other behavioral disturb Active Diagnosis [facility] Diagnosis: ICD-10-CM M17.0 Bilateral primary osteoarthritis of knee Active Diagnosis [facility] Diagnosis: ICD-10-CM G20.C Parkinsonism, unspecified Active Diagnosis [facility] Diagnosis: ICD-10-CM M25.552 Pain in left hip Active Diagnosis [facility] Diagnosis: ICD-10-CM M16.11 Unilateral primary osteoarthritis, right hip Active Diagnosis [facility] Diagnosis: ICD-10-CM E11.8 Type 2 diabetes mellitus with unspecified complications Active Diagnosis [facility] Diagnosis: ICD-10-CM R60.9 Edema, unspecified Active Diagnosis [facility] Diagnosis: ICD-10-CM Z79.01 custodial (current) use of anticoagulants Active Diagnosis [facility] Diagnosis: ICD-10-CM F31.81 Bipolar II disorder Active Diagnosis [facility] Diagnosis: ICD-10-CM F31.76 Bipolar disorder, in full remis, most recent episode depress Active Diagnosis [facility] Diagnosis: ICD-10-CM 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 mellitus with diabetic neuropathy, unsp Active Diagnosis [facility] Diagnosis: ICD-10-CM W19.XXXD Unspecified fall, subsequent encounter Active Diagnosis [facility] Diagnosis: ICD-10-CM W19.XXXA Unspecified fall, initial encounter Active Diagnosis [facility] Diagnosis: ICD-10-CM E66.3 Overweight Active Diagnosis [facility] Diagnosis: ICD-10-CM F03.A4 Unspecified dementia, mild, with anxiety Active Diagnosis [facility] Diagnosis: ICD-10-CM Z01.818 Encounter for other preprocedural examination Active Diagnosis [facility] Diagnosis: ICD-10-CM Z13.6 Encounter for screening for cardiovascular disorders Active Diagnosis [facility] Medications Combined list of outpatient medications from [...] HOURS NEEDED FOR PAIN ORAL ACTIVE 10/09/2024 [id number] 4 LYUBOV YEUNG 2023 100 [facility] ACETAMINOPH EN 500MG TAB TAKE ONE TABLET BY MOUTH EVERY 6 HOURS NEEDED FOR PAIN ORAL DISCONT INUED 08/16/2023 [id number] KEITH CRANE 2022 100 [facility] ALBUTEROL 90MCG/ACTUA T (CFC-F) INHL,ORAL,8 .5GM DOSE COUNTER INHALE 2 PUFFS BY INHALATI ON FOUR TIMES A DAY NEEDED FOR SHORTNES S OF BREATH RESPIR ATORY (INHAL ATION) ACTIVE 10/09/2024 [id number] 4 LYUBOV YEUNG 2023 2 [facility] AMOXICILLIN TRIHYDRATE 875MG/CLAVU LANATE K 125MG TAB TAKE 1 TABLET BY MOUTH TWICE A DAY FOR URINARY TRACT INFECTIO N ORAL 09/20/2023 [id number] Caden CHAVEZ 2023 14 [facility] APIXABAN 5MG TAB TAKE ONE TABLET BY MOUTH EVERY 12 HOURS TO PREVENT AND/OR TREAT BLOOD CLOTS ORAL ACTIVE 12/05/2024 [id number] 4 COBY HOWE 2023 180 [facility] APIXABAN 5MG TAB TAKE ONE TABLET BY MOUTH EVERY 12 HOURS TO PREVENT AND/OR TREAT BLOOD CLOTS ORAL DISCONT INUED 10/13/2023 [id number] 4 MISSY LARSEN 2022 180 [facility] ARIPIPRAZOL E 20MG TAB TAKE ONE TABLET BY MOUTH EVERY DAY FOR BIPOLAR DISORDER DOSE INCREASE D 11-23-22 ORAL ACTIVE 12/05/2024 [id number] 4 LORETA HONEYCUTT 2023 90 [facility] ARIPIPRAZOL E 20MG TAB TAKE ONE TABLET BY MOUTH EVERY DAY FOR BIPOLAR DISORDER DOSE INCREASE D 11-23-22 ORAL DISCONT INUED 11/24/2023 [id number] USHA PURI 2022 90 [facility] ATORVASTATI N CA 10MG TAB TAKE ONE TABLET BY MOUTH AT BEDTIME ORAL ACTIVE 10/09/2024 [id number] 4 LYUBOV YEUNG 2023 90 [facility] ATORVASTATI N CA 10MG TAB TAKE ONE TABLET BY MOUTH AT BEDTIME ORAL DISCONT INUED 09/21/2023 [id number] MARIUSZ PHILLIPS 2022 90 [facility] BUPROPION HCL 150MG 24HR TAB,SA TAKE ONE TABLET BY MOUTH EVERY MORNING ORAL DISCONT INUED BY PROVIDE R 11/24/2023 [id number] 4 USHA PURI 2022 90 [facility] CALCIUM 200MG (CA CITRATE-950 MG) TAB TAKE TWO TABLETS BY MOUTH TWICE A DAY FOR CALCIUM SUPPLEME NT ORAL ACTIVE 11/13/2024 [id number] 4 MARIUSZ PHILLIPS 2023 400 [facility] CALCIUM 200MG (CA CITRATE-950 MG) TAB TAKE TWO TABLETS BY MOUTH TWICE A DAY FOR CALCIUM SUPPLEME NT ORAL DISCONT INUED 09/12/2023 [id number] 3 DHOLE,ATH ARVA K 2022 400 [facility] CHOLECALCIF GABRIELA 25MCG (1,000UNIT) TAB TAKE ONE TABLET BY MOUTH EVERY DAY ORAL DISCONT INUED BY PROVIDE R 10/30/2024 [id number] 4 MARIUSZ PHILLIPS 2023 100 [facility] CHOLECALCIF GABRIELA 25MCG (1,000UNIT) TAB TAKE ONE TABLET BY MOUTH EVERY DAY ORAL DISCONT INUED 09/21/2023 [id number] 4 MARIUSZ PHILLIPS 2022 100 [facility] CYANOCOBALA MIN 1000MCG TAB TAKE ONE TABLET BY MOUTH EVERY DAY ORAL ACTIVE 03/10/2025 [id number] 4 MARIUSZ PHILLIPS 2023 100 [facility] CYANOCOBALA MIN 1000MCG TAB TAKE ONE TABLET BY MOUTH EVERY DAY ORAL DISCONT INUED 11/28/2023 [id number] 4 KEITH CRANE 2022 100 [facility] DICLOFENAC NA 1% GEL,TOP APPLY 4 GRAMS TOPICALL Y FOUR TIMES A DAY NEEDED TO AFFECTED AREA FOR PAIN TOPICA L ACTIVE 11/13/2024 [id number] 4 RACHEL LEIVA 2023 100 [facility] FERROUS SO4 325MG TAB TAKE ONE TABLET BY MOUTH EVERY DAY FOR IRON SUPPLEME NT ORAL ACTIVE 01/13/2025 [id number] 4 ADELE KINCAID 2023 100 [facility] FERROUS SO4 325MG TAB TAKE ONE TABLET BY MOUTH EVERY DAY IRON DEFICIEN CY ORAL DISCONT INUED 11/07/2023 [id number] 4 ADELE KINCAID HAJOSE 2022 100 [facility] LIDOCAINE 5% PATCH APPLY 1 PATCH TOPICALL Y EVERY DAY FOR UP TO 12 HOURS FOR PAIN TOPICA L ACTIVE 10/09/2024 [id number] 4 LYUBOV YEUNG 2023 30 [facility] LIDOCAINE 5% PATCH APPLY 1 PATCH TOPICALL Y EVERY DAY FOR PAIN TOPICA L DISCONT INUED 08/16/2023 [id number] KEITH CRANE 2022 30 [facility] MAGNESIUM OXIDE 400MG TAB TAKE TWO TABLETS BY MOUTH EVERY DAY FOR SUPPLEME NTATION ORAL SUSPEND ED 05/07/2025 [id number] 5 MARIUSZ PHILLIPS 2023 120 [facility] MAGNESIUM OXIDE 400MG TAB TAKE TWO TABLETS BY MOUTH EVERY DAY FOR SUPPLEME NTATION ORAL DISCONT INUED 06/17/2024 [id number] 4 RACHEL LEIVA 2022 120 [facility] MAGNESIUM OXIDE 400MG TAB TAKE TWO TABLETS BY MOUTH EVERY DAY FOR SUPPLEME NTATION ORAL DISCONT INUED 07/12/2023 [id number] INGRID BURLESON 2021 240 [facility] METFORMIN HCL 500MG TAB TAKE ONE TABLET BY MOUTH EVERY DAY FOR DIABETES *NOTE:WH OLE TABLETS ORAL DISCONT INUED 05/02/2023 [id number] MARRAFFA, ALTHEA A 2021 60 [facility] METFORMIN HCL 500MG TAB TAKE ONE TABLET BY MOUTH EVERY DAY FOR DIABETES *NOTE:WH OLE TABLETS ORAL 06/12/2024 [id number] 4 MARRAFFA, ALTHEA A 2022 60 [facility] METOPROLOL SUCCINATE 25MG TAB,SA TAKE THREE TABLETS BY MOUTH EVERY DAY FOR HEART AND BLOOD PRESSURE ORAL ACTIVE 10/09/2024 [id number] 4 LYUBOV YEUNG 2023 270 [facility] METOPROLOL SUCCINATE 50MG TAB,SA TAKE ONE TABLET BY MOUTH EVERY DAY FOR HEART AND BLOOD PRESSURE ORAL DISCONT INUED (EDIT) 10/27/2023 [id number] 4 KEITH CRANE 2022 90 [facility] MULTIVIT/OP HTH AREDS2/LUTE IN/ZEAXANTH IN CAP/TAB TAKE 1 CAP/TAB BY MOUTH TWICE A DAY WITH MEALS ORAL ACTIVE 02/24/2025 [id number] 4 MARIUSZ PHILLIPS 2023 120 [facility] MULTIVIT/OP HTH AREDS2/LUTE IN/ZEAXANTH IN CAP/TAB TAKE 1 CAP/TAB BY MOUTH TWICE A DAY WITH MEALS ORAL DISCONT INUED 12/28/2023 [id number] 4 KEITH CRANE 2022 120 [facility] MULTIVITAMI NS CAP/TAB TAKE 1 TABLET BY MOUTH EVERY DAY FOR SUPPLEME NT ORAL ACTIVE 03/12/2025 [id number] MARIUSZ PHILLIPS 2023 100 [facility] MULTIVITAMI NS CAP/TAB TAKE 1 TABLET BY MOUTH EVERY DAY ORAL 2023 [id number] KEITH CRANE 2022 100 [facility] [place] [facility] OMEPRAZOLE 20MG CAP,EC TAKE ONE CAPSULE BY MOUTH EVERY MORNING AND TAKE TWO CAPSULES EVERY EVENING ON AN EMPTY STOMACH, AT LEAST 30 MINUTES PRIOR TO A MEAL FOR REFRACTO RY GERD ORAL DISCONT INUED 07/12/2023 [id number] INGRID BURLESON 2021 270 [facility] [place] [facility] OMEPRAZOLE 40MG CAP,EC TAKE ONE CAPSULE BY MOUTH TWICE A DAY ON AN EMPTY STOMACH, AT LEAST 30 MINUTES PRIOR TO A MEAL TO DECREASE STOMACH ACID ORAL ACTIVE 09/19/2024 [id number] 4 JACQUELINEMARIUSZ Garza Elba 2023 180 [facility] [place] [facility] SEMAGLUTIDE 0.25MG/0.37 5ML INJ,SOLN,PE N,3ML INJECT 0.5MG UNDER THE SKIN EVERY WEEK DIABETES AND WEIGHT LOSS SUBCUT ANEOUS DISCONT INUED BY ANGEL Khan 12/03/2024 [id number] 4 ADELE KINCAID 2023 1 [facility] SEMAGLUTIDE 0.25MG/0.37 5ML INJ,SOLN,PE N,3ML INJECT 0.5MG UNDER THE SKIN EVERY WEEK DIABETES AND WEIGHT LOSS SUBCUT ANEOUS DISCONT INUED 11/08/2023 [id number] 4 ADELE KINCAID 2022 1 [facility] [place] [facility] VENLAFAXINE HCL 150MG 24HR CAP,SA TAKE ONE CAPSULE BY MOUTH EVERY DAY ORAL ACTIVE 12/05/2024 [id number] 4 LORETA HONEYCUTT 2023 90 [facility] VENLAFAXINE HCL 150MG 24HR CAP,SA TAKE ONE CAPSULE BY MOUTH EVERY DAY ORAL DISCONT INUED 11/24/2023 [id number] 4 USHA PURI 2022 90 [facility] Allergies, Adverse Reactions, Alerts Combined list [...] Site Reaction Lot Number CVX Code 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 Comments Source COVID-19 (PFIZER), MRNA, LNP-S, PF, JERI-SUCROSE, 30 MCG/0.3 ML (AGES 12+ YEARS) 2023 SUSAN MEIER LEFT DELTO ID [id number] complet ed [facility] PNEUMOCOCCAL CONJUGATE PCV20, POLYSACCHARID E [id number] CONJUGATE, ADJUVANT, PF 2023 DIVINAS,CAMILLA A RIGHT DELTO ID [id number] 216 complet ed [facility] INFLUENZA, HIGH-DOSE, TRIVALENT, PF 2023 SHADES,CAMILLA A LEFT DELTO ID [id number] A 135 complet ed [facility] INFLUENZA VACCINE, QUADRIVALENT, ADJUVANTED 2022 SUSAN MEIER LEFT DELTO ID [id number] 205 complet ed [facility] ZOSTER RECOMBINANT 2 2021 187 complet ed [facility] COVID-19 (MODERNA), MRNA, LNP-S, PF, 100 MCG/0.5ML DOSE OR 50 MCG/0.25ML DOSE 4 2021 207 complet ed [facility] ZOSTER RECOMBINANT 1 2021 187 complet ed [facility] COVID-19 (MODERNA), MRNA, LNP-S, PF, 100 MCG/0.5ML DOSE OR 50 MCG/0.25ML DOSE 3 2020 207 complet ed [facility] INFLUENZA, HIGH DOSE SEASONAL 2020 135 complet ed [facility] INFLUENZA, UNSPECIFIED FORMULATION 2020 88 complet ed [facility] COVID-19 (MODERNA), MRNA, LNP-S, PF, 100 MCG/0.5 ML DOSE 2 2020 207 complet ed [facility] COVID-19 (MODERNA), MRNA, LNP-S, PF, 100 MCG/0.5ML DOSE OR 50 MCG/0.25ML DOSE 2020 207 complet ed [facility] COVID-19 (MODERNA), MRNA, LNP-S, PF, 100 MCG/0.5 ML DOSE 1 2020 207 complet ed [facility] INFLUENZA, INJECTABLE, QUADRIVALENT, PRESERVATIVE FREE 2019 150 complet ed [facility] ZOSTER RECOMBINANT 1 2018 187 complet ed [facility] INFLUENZA, SEASONAL, INJECTABLE, PRESERVATIVE FREE 2017 140 complet ed [facility] INFLUENZA, HIGH DOSE SEASONAL 2016 135 complet ed [facility] PNEUMOCOCCAL POLYSACCHARID E PPV23 2016 33 complet ed MERCK, [id number], EX 01/01/2018 [facility] INFLUENZA, HIGH DOSE SEASONAL 2016 135 complet ed [facility] PNEUMOCOCCAL CONJUGATE PCV 13 2015 133 complet ed 000 [facility] INFLUENZA, HIGH DOSE SEASONAL 2014 135 complet ed [facility] INFLUENZA, SEASONAL, INJECTABLE 2014 141 complet ed [facility] INFLUENZA, SEASONAL, INJECTABLE 2013 141 complet ed [facility] INFLUENZA, INJECTABLE, QUADRIVALENT 2013 158 complet ed [facility] INFLUENZA, UNSPECIFIED FORMULATION 2012 88 complet ed [facility] TDAP 2012 115 complet ed 2R45M/04/12 [facility] ZOSTER LIVE 2012 121 complet ed [id number] 8May14 [facility] INFLUENZA, UNSPECIFIED FORMULATION 2012 88 complet ed [facility] PNEUMOCOCCAL POLYSACCHARID E PPV23 2011 33 complet ed [facility] INFLUENZA, UNSPECIFIED FORMULATION 2010 88 complet ed [facility] PNEUMOCOCCAL, UNSPECIFIED FORMULATION 2010 109 complet ed [facility] INFLUENZA, SEASONAL, INJECTABLE, PRESERVATIVE FREE 2009 140 complet ed [facility] TD(ADULT) UNSPECIFIED FORMULATION 2007 139 complet ed [facility] INFLUENZA, SEASONAL, INJECTABLE 2002 141 complet ed [facility] INFLUENZA, UNSPECIFIED FORMULATION 1997 88 complet ed [facility] PNEUMOCOCCAL POLYSACCHARID E PPV23 1997 33 complet ed [facility] Results Combined list of recent chemistry, [...] May 26, 2024 09:45 AM Reporting Lab: [facility] [id number] Performing Lab: [facility] [address] [facility] RETICS RETICULOCY TIMO/100 ERYTHROCYT ES IN BLOOD BY AUTOMATED COUNT 0.0429 0.0300 - 0.1000 06/12 Specimen Type: BLOOD Comment: Automated Differentia l Performed Ordering Provider: ADA MICHELLE Report Released Date/Time: May 26, 2024 09:53 AM Reporting Lab: [facility] [phone] Performing Lab: [facility] [address] [facility] RETICS RETICULOCY TIMO/100 ERYTHROCYT ES IN BLOOD BY AUTOMATED COUNT 1.06 0.6 - 2.0 06/12 Specimen Type: BLOOD Comment: Automated Differentia l Performed Ordering Provider: ADA MICHELLE Report Released Date/Time: May 26, 2024 09:53 AM Reporting Lab: [facility] [address] Performing Lab: [facility] [address] [place] [facility] RETICS IMMATURE RETICULOCY TIMO/RETICU LOCYTES.TO ANA IN BLOOD 5.9 1.0 - 14.0 06/12 Specimen Type: BLOOD Comment: Automated Differentia l Performed Ordering Provider: ADA MICHELLE Report Released Date/Time: May 26, 2024 09:53 AM Reporting Lab: [facility] [address] Performing Lab: [facility] [address] [place] [facility] RET[facility] RETICULOCY TE PRODUCTION INDEX 30.5 pg 28.2 - 36.6 06/12 Specimen Type: BLOOD Comment: Automated Differentia l Performed Ordering Provider: ADA MICHELLE Report Released Date/Time: May 26, 2024 09:53 AM Reporting Lab: [facility] [address] Performing Lab: [facility] [address] [place] [facility] COMPREHE NSIVE METABOLI C PANEL+MG CREATININE [MASS/VOLU ME] IN SERUM OR PLASMA 1.0 mg/dL 0.7 - 1.2 06/12 Specimen Type: PLASMA No comment entered. Ordering Provider: ADA MICHELLE Report Released Date/Time: May 26, 2024 09:45 AM Reporting Lab: [facility] [address] Performing Lab: [facility] [address] [place] [facility] COMPREHE NSIVE METABOLI C PANEL+MG UREA NITROGEN [MASS/VOLU ME] IN SERUM OR PLASMA 22 mg/dL 8 - 26 06/12 Specimen Type: PLASMA No comment entered. Ordering Provider: ADA MICHELLE Report Released Date/Time: May 26, 2024 09:45 AM Reporting Lab: [facility] [address] Performing Lab: [facility] [address] [place] [facility] COMPREHE NSIVE METABOLI C PANEL+MG GLUCOSE [MASS/VOLU ME] IN SERUM OR PLASMA 132 mg/dL 70 - 100 06/12 H Specimen Type: PLASMA No comment entered. Ordering Provider: ADA MICHELLE Report Released Date/Time: May 26, 2024 09:45 AM Reporting Lab: [facility] [address] Performing Lab: [facility] [address] [place] [facility] COMPREHE NSIVE METABOLI C PANEL+MG SODIUM [MOLES/VOL UME] IN SERUM OR PLASMA 142 mmol/L 136 - 145 06/12 Specimen Type: PLASMA No comment entered. Ordering Provider: ADA MICHELLE Report Released Date/Time: May 26, 2024 09:45 AM Reporting Lab: [facility] [address] Performing Lab: [facility] [address] [place] [facility] COMPREHE NSIVE METABOLI C PANEL+MG POTASSIUM [MOLES/VOL UME] IN SERUM OR PLASMA 4.2 mmol/L 3.5 - 5.1 06/12 Specimen Type: PLASMA No comment entered. Ordering Provider: ADA MICHELLE Report Released Date/Time: May 26, 2024 09:45 AM Reporting Lab: [facility] [address] Performing Lab: [facility] [address] [place] [facility] COMPREHE NSIVE METABOLI C PANEL+MG CHLORIDE [MOLES/VOL UME] IN SERUM OR PLASMA 104 mmol/L 98 - 107 06/12 Specimen Type: PLASMA No comment entered. Ordering Provider: ADA MICHELLE Report Released Date/Time: May 26, 2024 09:45 AM Reporting Lab: [facility] [address] Performing Lab: [facility] [address] [place] [facility] COMPREHE NSIVE METABOLI C PANEL+MG CARBON DIOXIDE, TOTAL [MOLES/VOL UME] IN SERUM OR PLASMA 32 mmol/L 22 - 29 06/12 H Specimen Type: PLASMA No comment entered. Ordering Provider: ADA MICHELLE Report Released Date/Time: May 26, 2024 09:45 AM Reporting Lab: [facility] [address] Performing Lab: [facility] [address] [place] [facility] COMPREHE NSIVE METABOLI C PANEL+MG CALCIUM [MASS/VOLU ME] IN SERUM OR PLASMA 9.0 mg/dL 8.4 - 10.2 06/12 Specimen Type: PLASMA No comment entered. Ordering Provider: ADA MICHELLE Report Released Date/Time: May 26, 2024 09:45 AM Reporting Lab: [facility] [address] Performing Lab: [facility] [address] [place] [facility] COMPREHE NSIVE METABOLI C PANEL+MG PROTEIN [MASS/VOLU ME] IN SERUM OR PLASMA 5.9 g/dL 6.4 - 8.3 06/12 L Specimen Type: PLASMA No comment entered. Ordering Provider: ADA MICHELLE Report Released Date/Time: May 26, 2024 09:45 AM Reporting Lab: [facility] [address] Performing Lab: [facility] [address] [place] [facility] COMPREHE NSIVE METABOLI C PANEL+MG ALBUMIN [MASS/VOLU ME] IN SERUM OR PLASMA 3.8 g/dL 3.5 - 5.0 06/12 Specimen Type: PLASMA No comment entered. Ordering Provider: ADA MICHELLE Report Released Date/Time: May 26, 2024 09:45 AM Reporting Lab: [facility] [address] Performing Lab: [facility] [address] [place] [facility] COMPREHE NSIVE METABOLI C PANEL+MG BILIRUBIN. TOTAL [MASS/VOLU ME] IN SERUM OR PLASMA 0.2 mg/dL 0.2 - 1.2 06/12 Specimen Type: PLASMA No comment entered. Ordering Provider: ADA MICHELLE Report Released Date/Time: May 26, 2024 09:45 AM Reporting Lab: [facility] [address] Performing Lab: [facility] [address] [place] [facility] COMPREHE NSIVE METABOLI C PANEL+MG MAGNESIUM [MASS/VOLU ME] IN SERUM OR PLASMA 1.6 mg/dL 1.6 - 2.6 06/12 Specimen Type: PLASMA No comment entered. Ordering Provider: ADA MICHELLE Report Released Date/Time: May 26, 2024 09:45 AM Reporting Lab: [facility] [address] Performing Lab: [facility] [address] [place] [facility] COMPREHE NSIVE METABOLI C PANEL+MG ANION GAP IN SERUM OR PLASMA 6 mmol/L 5 - 15 06/12 Specimen Type: PLASMA No comment entered. Ordering Provider: ADA MICHELLE Report Released Date/Time: May 26, 2024 09:45 AM Reporting Lab: [facility] [address] Performing Lab: [facility] [address] [facility] COMPREHE NSIVE METABOLI C PANEL+MG ALKALINE PHOSPHATAS E [ENZYMATIC ACTIVITY/V OLUME] IN SERUM OR PLASMA 74 U/L 40 - 150 06/12 Specimen Type: PLASMA No comment entered. Ordering Provider: ADA MICHELLE Report Released Date/Time: May 26, 2024 09:45 AM Reporting Lab: [facility] [address] Performing Lab: [facility] [address] [place] [facility] COMPREHE NSIVE METABOLI C PANEL+MG ALANINE AMINOTRANS FERASE [ENZYMATIC ACTIVITY/V OLUME] IN SERUM OR PLASMA 14 U/L <44 - 44 06/12 Specimen Type: PLASMA No comment entered. Ordering Provider: ADA MICHELLE Report Released Date/Time: May 26, 2024 09:45 AM Reporting Lab: [facility] [address] Performing Lab: [facility] [address] [place] [facility] COMPREHE NSIVE METABOLI C PANEL+MG ASPARTATE AMINOTRANS FERASE [ENZYMATIC ACTIVITY/V OLUME] IN SERUM OR PLASMA 20 U/L 11 - 34 06/12 Specimen Type: PLASMA No comment entered. Ordering Provider: ADA MICHELLE Report Released Date/Time: May 26, 2024 09:45 AM Reporting Lab: [facility] [address] Performing Lab: [facility] [address] [place] [facility] COMPREHE NSIVE METABOLI C PANEL+MG GLOMERULAR FILTRATION RATE/1.73 SQ M.PREDICTE D [VOLUME RATE/AREA] IN SERUM, PLASMA OR BLOOD BY CREATININE -BASED FORMULA (CKD-EPI 2020) 78 60 06/12 Specimen Type: PLASMA No comment entered. Ordering Provider: ADA MICHELLE Report Released Date/Time: May 26, 2024 09:45 AM Reporting Lab: [facility] [id number] Performing Lab: [facility] [phone] [facility] CBC & DIFF LEUKOCYTES [#/VOLUME] IN BLOOD BY AUTOMATED COUNT 6.4 4.0 - 11.0 06/12 Specimen Type: BLOOD Comment: Automated Differentia l Performed Ordering Provider: ADA MICHELLE Report Released Date/Time: May 26, 2024 09:45 AM Reporting Lab: [facility] [phone] Performing Lab: [facility] [phone] [facility] IS [facility] CBC & DIFF ERYTHROCYT ES [#/VOLUME] IN BLOOD BY AUTOMATED COUNT 4.05 4.60 - 6.20 06/12 L Specimen Type: BLOOD Comment: Automated Differentia l Performed Ordering Provider: ADA MICHELLE Report Released Date/Time: May 26, 2024 09:45 AM Reporting Lab: [facility] [phone] Performing Lab: [facility] [address] [place] [facility] CBC & DIFF HEMOGLOBIN [MASS/VOLU ME] IN BLOOD 11.8 g/dL 13.5 - 17.9 06/12 L Specimen Type: BLOOD Comment: Automated Differentia l Performed Ordering Provider: ADA MICHELLE Report Released Date/Time: May 26, 2024 09:45 AM Reporting Lab: [facility] [address] Performing Lab: [facility] [address] [place] [facility] CBC & DIFF HEMATOCRIT [VOLUME FRACTION] OF BLOOD BY AUTOMATED COUNT 37.5 41.0 - 54.0 06/12 L Specimen Type: BLOOD Comment: Automated Differentia l Performed Ordering Provider: ADA MICHELLE Report Released Date/Time: May 26, 2024 09:45 AM Reporting Lab: [facility] [address] Performing Lab: [facility] [address] [place] [facility] CBC & DIFF MCV [ENTITIC VOLUME] BY AUTOMATED COUNT 92.6 fL 80.0 - 100.0 06/12 Specimen Type: BLOOD Comment: Automated Differentia l Performed Ordering Provider: ADA MICHELLE Report Released Date/Time: May 26, 2024 09:45 AM Reporting Lab: [facility] [address] Performing Lab: [facility] [address] [place] [facility] CBC & DIFF MCH [ENTITIC MASS] BY AUTOMATED COUNT 29.1 pg 27.0 - 33.0 06/12 Specimen Type: BLOOD Comment: Automated Differentia l Performed Ordering Provider: ADA MICHELLE Report Released Date/Time: May 26, 2024 09:45 AM Reporting Lab: [facility] [address] Performing Lab: [facility] [address] [place] [facility] CBC & DIFF MCHC [MASS/VOLU ME] BY AUTOMATED COUNT 31.5 g/dL 32.0 - 37.5 06/12 L Specimen Type: BLOOD Comment: Automated Differentia l Performed Ordering Provider: ADA MICHELLE Report Released Date/Time: May 26, 2024 09:45 AM Reporting Lab: [facility] [address] Performing Lab: [facility] [address] [place] [facility] CBC & DIFF PLATELETS [#/VOLUME] IN BLOOD BY AUTOMATED COUNT 298 150 - 400 06/12 Specimen Type: BLOOD Comment: Automated Differentia l Performed Ordering Provider: ADA MICHELLE Report Released Date/Time: May 26, 2024 09:45 AM Reporting Lab: [facility] [address] Performing Lab: [facility] [address] [place] [facility] CBC & DIFF PLATELET MEAN VOLUME [ENTITIC VOLUME] IN BLOOD BY AUTOMATED COUNT 9.0 fL 9.1 - 13.0 06/12 L Specimen Type: BLOOD Comment: Automated Differentia l Performed Ordering Provider: ADA MICHELLE Report Released Date/Time: May 26, 2024 09:45 AM Reporting Lab: [facility] [address] Performing Lab: [facility] [address] [place] [facility] CBC & DIFF NEUTROPHIL S/100 LEUKOCYTES IN BLOOD BY MANUAL COUNT 54.5 40.0 - 80.0 06/12 Specimen Type: BLOOD Comment: Automated Differentia l Performed Ordering Provider: ADA MICHELLE Report Released Date/Time: May 26, 2024 09:45 AM Reporting Lab: [facility] [address] Performing Lab: [facility] [address] [place] [facility] CBC & DIFF LYMPHOCYTE S/100 LEUKOCYTES IN BLOOD BY MANUAL COUNT 31.6 15.0 - 45.0 06/12 Specimen Type: BLOOD Comment: Automated Differentia l Performed Ordering Provider: ADA MICHELLE Report Released Date/Time: May 26, 2024 09:45 AM Reporting Lab: [facility] [address] Performing Lab: [facility] [address] [place] [facility] CBC & DIFF MONOCYTES/ 100 LEUKOCYTES IN BLOOD BY AUTOMATED COUNT 9.2 2.0 - 12.0 06/12 Specimen Type: BLOOD Comment: Automated Differentia l Performed Ordering Provider: ADA MICHELLE Report Released Date/Time: May 26, 2024 09:45 AM Reporting Lab: [facility] [address] Performing Lab: [facility] [address] [place] [facility] CBC & DIFF EOSINOPHIL S/100 LEUKOCYTES IN BLOOD BY AUTOMATED COUNT 3.9 0.0 - 6.0 06/12 Specimen Type: BLOOD Comment: Automated Differentia l Performed Ordering Provider: ADA MICHELLE Report Released Date/Time: May 26, 2024 09:45 AM Reporting Lab: [facility] [address] Performing Lab: [facility] [address] [place] [facility] CBC & DIFF BASOPHILS/ 100 LEUKOCYTES IN BLOOD BY MANUAL COUNT 0.5 0.0 - 2.0 06/12 Specimen Type: BLOOD Comment: Automated Differentia l Performed Ordering Provider: ADA MICHELLE Report Released Date/Time: May 26, 2024 09:45 AM Reporting Lab: [facility] [address] Performing Lab: [facility] [address] [place] [facility] CBC & DIFF ERYTHROCYT E DISTRIBUTI ON WIDTH [RATIO] BY AUTOMATED COUNT 14.1 11.5 - 14.5 06/12 Specimen Type: BLOOD Comment: Automated Differentia l Performed Ordering Provider: ADA MICHELLE Report Released Date/Time: May 26, 2024 09:45 AM Reporting Lab: [facility] [address] Performing Lab: [facility] [address] [place] [facility] CBC & DIFF LYMPHOCYTE S [#/VOLUME] IN BLOOD BY AUTOMATED COUNT 2.0 1.0 - 4.0 06/12 Specimen Type: BLOOD Comment: Automated Differentia l Performed Ordering Provider: ADA MICHELLE Report Released Date/Time: May 26, 2024 09:45 AM Reporting Lab: [facility] [address] Performing Lab: [facility] [address] [place] [facility] CBC & DIFF MONOCYTES [#/VOLUME] IN BLOOD BY AUTOMATED COUNT 0.6 0.1 - 1.0 06/12 Specimen Type: BLOOD Comment: Automated Differentia l Performed Ordering Provider: ADA MICHELLE Report Released Date/Time: May 26, 2024 09:45 AM Reporting Lab: [facility] [address] Performing Lab: [facility] [address] [place] [facility] CBC & DIFF NEUTROPHIL S [#/VOLUME] IN BLOOD BY AUTOMATED COUNT 3.5 2.0 - 7.7 06/12 Specimen Type: BLOOD Comment: Automated Differentia l Performed Ordering Provider: ADA MICHELLE Report Released Date/Time: May 26, 2024 09:45 AM Reporting Lab: [facility] [address] Performing Lab: [facility] [address] [place] [facility] CBC & DIFF EOSINOPHIL S [#/VOLUME] IN BLOOD BY AUTOMATED COUNT 0.3 0.0 - 0.5 06/12 Specimen Type: BLOOD Comment: Automated Differentia l Performed Ordering Provider: ADA MICHELLE Report Released Date/Time: May 26, 2024 09:45 AM Reporting Lab: [facility] [address] Performing Lab: [facility] [address] [place] [facility] CBC & DIFF BASOPHILS [#/VOLUME] IN BLOOD BY AUTOMATED COUNT 0.0 0.0 - 0.2 06/12 Specimen Type: BLOOD Comment: Automated Differentia l Performed Ordering Provider: ADA MICHELLE Report Released Date/Time: May 26, 2024 09:45 AM Reporting Lab: [facility] [address] Performing Lab: [facility] [address] [place] [facility] CBC & DIFF IG(META,MY [place],PRO) 0.3 06/12 Specimen Type: BLOOD Comment: Automated Differentia l Performed Ordering Provider: ADA MICHELLE Report Released Date/Time: May 26, 2024 09:45 AM Reporting Lab: [facility] [address] Performing Lab: [facility] [address] [place] [facility] CBC & DIFF IMMATURE GRANULOCYT ES [PRESENCE] IN BLOOD BY AUTOMATED COUNT 0.0 0.0 - 0.1 06/12 Specimen Type: BLOOD Comment: Automated Differentia l Performed Ordering Provider: ADA MICHELLE Report Released Date/Time: May 26, 2024 09:45 AM Reporting Lab: [facility] [address] Performing Lab: [facility] [address] [place] [facility] CBC & DIFF RETICULOCY TE PRODUCTION INDEX 30.5 pg 28.2 - 36.6 06/12 Specimen Type: BLOOD Comment: Automated Differentia l Performed Ordering Provider: ADA MICHELLE Report Released Date/Time: May 26, 2024 09:45 AM Reporting Lab: [facility] [address] Performing Lab: [facility] [address] [place] [facility] URINALYS IS COLOR OF URINE YELLOW 06/03 Specimen Type: URINE No comment entered. Ordering Provider: DESIREE YEUNG NNOR R Report Released Date/Time: Jun 03, 2024 10:39 AM Reporting Lab: [facility] [address] Performing Lab: [facility] [address] [place] [facility] URINALYS IS SPECIFIC GRAVITY OF URINE 1.018 1.003 - 1.035 06/03 Specimen Type: URINE No comment entered. Ordering Provider: DESIREE YEUNG NNOR R Report Released Date/Time: Jun 03, 2024 10:39 AM Reporting Lab: [facility] [address] Performing Lab: [facility] [address] [place] [facility] URINALYS IS BILIRUBIN. TOTAL [PRESENCE] IN URINE BY TEST STRIP NEGATIVE 06/03 Specimen Type: URINE No comment entered. Ordering Provider: DESIREE YEUNG NNOR R Report Released Date/Time: Jun 03, 2024 10:39 AM Reporting Lab: [facility] [address] Performing Lab: [facility] [address] [place] [facility] URINALYS IS KETONES [MASS/VOLU ME] IN URINE BY TEST STRIP NEGATIVE 06/03 Specimen Type: URINE No comment entered. Ordering Provider: DESIREE YEUNG NNOR R Report Released Date/Time: Jun 03, 2024 10:39 AM Reporting Lab: [facility] [address] Performing Lab: [facility] [address] [place] [facility] URINALYS IS GLUCOSE [MASS/VOLU ME] IN URINE BY TEST STRIP 500 mg/dL <30 - 30 06/03 Specimen Type: URINE No comment entered. Ordering Provider: DESIREE YEUNG NNOR R Report Released Date/Time: Jun 03, 2024 10:39 AM Reporting Lab: [facility] [address] Performing Lab: [facility] [address] [place] [facility] URINALYS IS PROTEIN [MASS/VOLU ME] IN URINE BY TEST STRIP NEGATIVE mg/dL <20 - 20 06/03 Specimen Type: URINE No comment entered. Ordering Provider: DESIREE YEUNG NNOR R Report Released Date/Time: Jun 03, 2024 10:39 AM Reporting Lab: [facility] [address] Performing Lab: [facility] [address] [facility] URINALYS IS PH OF URINE BY TEST STRIP 6.5 5.0 - 8.0 06/03 Specimen Type: URINE No comment entered. Ordering Provider: DESIREE YEUNG NNOR R Report Released Date/Time: Jun 03, 2024 10:39 AM Reporting Lab: [facility] [address] Performing Lab: [facility] [address] [facility] URINALYS IS LEUKOCYTES [#/AREA] IN URINE SEDIMENT BY MICROSCOPY HIGH POWER FIELD 9 /[HPF] 0 - 7 06/03 H Specimen Type: URINE No comment entered. Ordering Provider: DESIREE YEUNG NNOR R Report Released Date/Time: Jun 03, 2024 10:39 AM Reporting Lab: [facility] [address] Performing Lab: [facility] [address] [place] [facility] URINALYS IS BACTERIA [PRESENCE] IN URINE SEDIMENT BY LIGHT MICROSCOPY NONE SEEN 06/03 Specimen Type: URINE No comment entered. Ordering Provider: DESIREE YEUNG NNOR R Report Released Date/Time: Jun 03, 2024 10:39 AM Reporting Lab: [facility] [address] Performing Lab: [facility] [address] [place] [facility] URINALYS IS ERYTHROCYT ES [#/AREA] IN URINE SEDIMENT BY MICROSCOPY HIGH POWER FIELD 3 /[HPF] 0 - 3 06/03 Specimen Type: URINE No comment entered. Ordering Provider: DESIREE YEUNG NNOR R Report Released Date/Time: Jun 03, 2024 10:39 AM Reporting Lab: [facility] [address] Performing Lab: [facility] [address] [place] [facility] URINALYS IS APPEARANCE OF URINE CLEAR 06/03 Specimen Type: URINE No comment entered. Ordering Provider: DESIREE YEUNG NNOR R Report Released Date/Time: Jun 03, 2024 10:39 AM Reporting Lab: [facility] [address] Performing Lab: [facility] [address] [place] [facility] URINALYS IS EPITHELIAL CELLS.SQUA MOUS [#/AREA] IN URINE SEDIMENT BY MICROSCOPY HIGH POWER FIELD <1/[HPF] 06/03 Specimen Type: URINE No comment entered. Ordering Provider: DESIREE YUENG NNOR R Report Released Date/Time: Jun 03, 2024 10:39 AM Reporting Lab: [facility] [address] Performing Lab: [facility] [address] [place] [facility] URINALYS IS HEMOGLOBIN [PRESENCE] IN URINE BY TEST STRIP NEGATIVE 06/03 Specimen Type: URINE No comment entered. Ordering Provider: DESIREE YEUNG NNOR R Report Released Date/Time: Jun 03, 2024 10:39 AM Reporting Lab: [facility] [address] Performing Lab: [facility] [address] [place] [facility] URINALYS IS NITRITE [PRESENCE] IN URINE BY TEST STRIP NEGATIVE 06/03 Specimen Type: URINE No comment entered. Ordering Provider: DESIREE YEUNG NNOR R Report Released Date/Time: Jun 03, 2024 10:39 AM Reporting Lab: [facility] [address] Performing Lab: [facility] [address] [place] [facility] URINALYS IS LEUKOCYTE ESTERASE [PRESENCE] IN URINE BY TEST STRIP 75 06/03 Specimen Type: URINE No comment entered. Ordering Provider: DESIREE YEUNG Report Released Date/Time: Jun 03, 2024 10:39 AM Reporting Lab: [facility] [address] Performing Lab: [facility] [address] [facility] FINGERST ICK GLUCOSE GLUCOSE [MASS/VOLU ME] IN CAPILLARY BLOOD 148 mg/dL 70 - 100 05/20 H Specimen Type: BLOOD Comment: Save Result Ordering Provider: JOSE PHILLIPS Report Released Date/Time: May 20, 2024 03:03 PM Reporting Lab: [facility] [address] Performing Lab: [facility] [address] [place] [facility] KAPPA/[place] MBDA LC FREE,RAT IO [place]PA LIGHT [...] therapy of these disorders. Test Performed by [employer] [employer] [facility], [address] [place] [address] Devante Meyer M.D., Ph.D., Director of Laboratorie s , CLIA [id number] Ordering Provider: RENUKA JOHNSON Report Released Date/Time: Apr 24, 2024 04:08 PM Reporting Lab: [facility] [address] Performing Lab: [address] [place] [facility] [place] MBDA LC FREE,RAT IO LAMBDA LIGHT [...] therapy of these disorders. Test Performed by [employer], [employer] [facility], [address] [place] [address] Devante Meyer M.D., Ph.D., Director of Laboratorie s , CLIA [id number] Ordering Provider: RENUKA JOHNSON Report Released Date/Time: Apr 24, 2024 04:08 PM Reporting Lab: [facility] [address] Performing Lab: [address] [place] [facility] [place] MBDA LC FREE,RAT IO [place]PA LIGHT [...] of these disorders. Test Performed by [employer], [employer] [facility], [address] [place], [place] Devante Meyer M.D., Ph.D., Director of Laboratorie s , [place] [id number] Ordering Provider: RENUKA JOHNSON Report Released Date/Time: Apr 24, 2024 04:08 PM Reporting Lab: [facility] [address] Performing Lab: [facility] [address] [facility] LD,TOTAL LACTATE DEHYDROGEN ASE [ENZYMATIC ACTIVITY/V OLUME] IN SERUM OR PLASMA BY LACTATE TO PYRUVATE REACTION 141 U/L 125 - 220 05/13 Specimen Type: PLASMA No comment entered. Ordering Provider: RENUKA JOHNSON Report Released Date/Time: Apr 24, 2024 04:08 PM Reporting Lab: [facility] [address] Performing Lab: [facility] [address] [facility] URIC ACID URATE [MASS/VOLU ME] IN SERUM OR PLASMA 3.1 mg/dL 3.7 - 7.7 05/13 L Specimen Type: PLASMA No comment entered. Ordering Provider: RENUKA JOHNSON Report Released Date/Time: Apr 24, 2024 04:08 PM Reporting Lab: [facility] [address] Performing Lab: [facility] [address] [facility] IS [facility] B 12 COBALAMIN (VITAMIN B12) [MASS/VOLU ME] IN SERUM OR PLASMA 722 pg/mL 213 - 816 05/13 Specimen Type: SERUM No comment entered. Ordering Provider: RENUKA JOHNSON Report Released Date/Time: Apr 24, 2024 04:08 PM Reporting Lab: [facility] [address] Performing Lab: [facility] [address] [facility] Vital Signs Combined list of inpatient and outpatient Vital Signs from Department of Defense and Veterans Affairs, ranging from 12 months to all on record, depending upon the facility. Vital Sign Value Date Comments Source SYSTOLIC BLOOD PRESSURE 142 06/23/2024 09:54:57 [facility] DIASTOLIC BLOOD PRESSURE 73 06/23/2024 09:54:57 [place] [facility] SYSTOLIC BLOOD PRESSURE 110 05/26/2024 09:22:56 [facility] DIASTOLIC BLOOD PRESSURE 73 05/26/2024 09:22:56 [facility] PULSE OXIMETRY 98 05/26/2024 09:22:56 [facility] WEIGHT 166.9 05/26/2024 09:22:56 [facility] BMI 25kg/m2 05/26/2024 09:22:56 [facility] PAIN 4 05/26/2024 09:22:56 [facility] TEMPERATURE 98.6 05/26/2024 09:22:56 [facility] [facility] PULSE 88 05/26/2024 09:22:56 [facility] RESPIRATION 19 05/26/2024 09:22:56 [facility] [facility] SYSTOLIC BLOOD PRESSURE 120 05/13/2024 12:38:02 [facility] DIASTOLIC BLOOD PRESSURE 80 05/13/2024 12:38:02 [facility] PULSE OXIMETRY 97 05/13/2024 12:38:02 [facility] [place] [facility] WEIGHT 162.3 05/13/2024 12:38:02 [place] [...] DC Date Status Disposition Source [place] [facility] Outpatient Encounter [id number] 01/16 [place] [facility] [place] [facility] NRPSYC TST EVAL PHYS/QHP 1ST [id number] Diagnos is: ICD-10- CM F03.A18 Unspeci fied dementi a, mild, with other behavio ral disturb
JAMIE LYLES N 01/17 [place] [facility] [place] [facility] Out[place] Encounter [id number] 01/24 [place] [facility] [place] [facility] Outpatient Encounter [id number] 01/29 [facility] [place] [facility] [place] [facility] OFFICE O/P EST LOW 20-29 MIN [id number] Diagnos is: ICD-10- CM M16.11 Unilate ral primary osteoar thritis , right hip<br/ > SOFIA VARELA 02/13 [facility] [place] [facility] [place] [facility] Outpatient Encounter [id number] 02/13 [facility] [place] [facility] [place] [facility] Outpatient Encounter [id number] 02/13 [facility] [place] [facility] [place] [facility] Outpatient Encounter [id number] 02/14 [facility] [place] [facility] [place] [facility] Outpatient Encounter [id number] 02/20 [facility] [place] [facility] [place] [facility] Outpatient Encounter [id number] 02/23 [facility] [place] [facility] [place] [facility] ELECTROCAR DIOGRAM COMPLETE [id number] Diagnos is: ICD-10- CM Z13.6 Encount er for screeni ng for cardiov ascular disorde rs
Sabrina WILL 02/25 [facility] [place] [facility] OFF[place] O/P EST MOD 30-39 MIN [id number] Diagnos is: ICD-10- CM Z01.818 Encount er for other preproc edural examina tion
RAFFI MG 02/25 [place] [facility] [place] [facility] Outpatient Encounter [id number] 02/25 [place] [facility] [place] [facility] Outpatient Encounter [id number] 02/28 [place] [facility] [place] [facility] Outpatient Encounter [id number] 03/05 [facility] [place] [facility] [place] [facility] HC PRO PHONE CALL 11-20 MIN [id number] Diagnos is: ICD-10- CM E11.8 Type 2 diabete s mellitu s with unspeci fied complic ations< br/> LUCY WHITLOCK 03/07 [facility] [place] [facility] [place] [facility] Outpatient Encounter [id number] 03/07 [facility] [place] [facility] [place] [facility] Outpatient Encounter [id number] 03/13 [facility] [place] [facility] [place] [facility] Outpatient Encounter [id number] 04/05 [facility] [place] [facility] OFFICE O/P EST LOW 20-29 MIN [id number] Diagnos is: ICD-10- CM M16.11 Unilate ral primary osteoar thritis , right hip<br/ > PATITO FIGUEROA 04/19 [facility] [place] [facility] [place] [facility] Outpatient Encounter [id number] 05/14 [facility] [place] [facility] [place] [facility] Outpatient Encounter [id number] 05/14 [facility] [place] [facility] [place] [facility] OFFICE O/P EST HI 40-54 MIN [id number] Diagnos is: ICD-10- CM F31.81 Bipolar II disorde r
Diego HONEYCUTT 05/20 [facility] [place] [facility] Outpatient Encounter [id number] 06/04 [facility] SELF CARE MNGMENT TRAINING [id number] Diagnos is: ICD-10- CM F03.A4 Unspeci fied dementi a, mild, with anxiety
JAVIER COOK A 06/17 [facility] OFFICE O/P EST MOD 30-39 MIN [id number] Diagnos is: ICD-10- CM E66.3 Overwei ght<br/ > HARSH ALVAREZ 07/11 [facility] Outpatient Encounter [id number] 08/09 [facility] Outpatient Encounter [id number] 08/14 [facility] OFFICE O/P EST MOD 30 MIN [id number] Diagnos is: ICD-10- CM F31.81 Bipolar II disorde r
Diego HONEYCUTT 08/21 [facility] EMERGENCY DEPT VISIT MOD MDM [id number] Diagnos is: ICD-10- CM W19.XXX A Unspeci fied fall, initial encount er
SA JAXSON CHAVEZ 08/21 [facility] Outpatient Encounter [id number] 08/22 [facility] [place] [facility] Outpatient Encounter [id number] 08/22 [facility] [place] [facility] Outpatient Encounter [id number] 08/23 [facility] [place] [facility] Outpatient Encounter [id number] 08/29 [facility] Outpatient Encounter [id number] MARYJO SCHOFIELD 09/04 [place] [facility] [place] Outpatient Encounter [id number] 09/19 [place] [facility] [place] Outpatient Encounter [id number] 10/01 [place] [facility] [place] Outpatient Encounter [id number] 10/01 [place] [facility] [place] OFF[facility] O/P EST MOD 30 MIN [id number] Diagnos is: ICD-10- CM F31.76 Bipolar disorde r, in full remis, most recent episode depress
Diego HONEYCUTT 10/02 [facility] [place] O/P EST MOD 30 MIN [id number] Diagnos is: ICD-10- CM W19.XXX D Unspeci fied fall, subsequ ent encount er
LA OVIEDO 10/08 [facility] [place] [place] [facility] Outpatient [facility]counter [id number] 10/13 [facility] [place] [place] [facility] O/P EST MOD 30 MIN [id number] Diagnos is: ICD-10- CM E11.40 Type 2 diabete s mellitu s with diabeti c neuropa thy, unsp
HARSH ALVAREZ 11/06 [facility] [facility] [place] [facility] [place] [facility] OFFICE O/P EST MOD 30 MIN [id number] Diagnos is: ICD-10- CM F31.76 Bipolar disorde r, in full remis, most recent episode depress
Diego HONEYCUTT 11/06 [facility] [place] [facility] [place] [facility] Outpatient Encounter [id number] 11/08 [facility] [place] [facility] Outpatient Encounter [id number] ASHOK CHRISTIANSON SABA 11/10 [facility] [place] [facility] Outpatient Encounter [id number] ANNALEE LENNON 11/12 [facility] [place] [facility] OFF/OP CNSLTJ NEW/EST MOD 40 [id number] Diagnos is: ICD-10- CM G20.C Yumiko onism, unspeci fied
ADELE DUNN 11/19 [facility] [place] [facility] Outpatient Encounter [id number] 11/25 [facility] [place] [facility] Outpatient Encounter [id number] BAR LANTIGUA 11/27 [facility] [place] [facility] OFFICE O/P EST MOD 30 MIN [id number] Diagnos is: ICD-10- CM F31.81 Bipolar II disorde r
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
Christos HOWE 12/04 [facility] [place] [facility] Outpatient Encounter [id number] SARA MI 02/05 [facility] [place] [facility] Outpatient Encounter [id number] 02/05 [facility] [place] [facility] OFF[facility] O/P EST MOD 30 MIN [id number] Diagnos is: ICD-10- CM M16.11 Unilate ral primary osteoar thritis , right hip<br/ > PATITO FIGUEROA 02/06 [facility] [place] [facility] TTE W/DOPPLER COMPLETE [id number] Diagnos is: ICD-10- CM R60.9 Edema, unspeci fied
MELVIN MERRILL RADHA 02/17 [facility] [place] [facility] [place] [facility] Outpatient Encounter [id number] 02/18 [facility] [place] [facility] OFF[facility] O/P EST HI 40 MIN [id number] Diagnos is: ICD-10- CM E11.8 Type 2 diabete s mellitu s with unspeci fied complic ations< br/> HARSH ALVAREZ 03/05 [facility] Outpatient Encounter [id number] Diagnos is: ICD-10- CM M16.11 Unilate ral primary osteoar thritis , right hip<br/ > PATITO FIGUEROA A 03/09 [facility] Outpatient Encounter [id number] JOE ROPER A 03/10 [facility] Outpatient Encounter [id number] MARYJO SCHOFIELD 03/12 [facility] Outpatient Encounter [id number] 03/12 [facility] OFFICE O/P EST MOD 30 MIN [id number] Diagnos is: ICD-10- CM M25.552 Pain in left hip<br/ > ROYA RIBEIRO 03/16 [facility] Outpatient Encounter [id number] 03/16 [facility] [place] [facility] Outpatient Encounter [id number] 03/25 [facility] [place] [facility] Outpatient Encounter [id number] 03/27 [facility] [place] [facility] OFFICE O/P EST MOD 30 MIN [id number] Diagnos is: ICD-10- CM G20.C Yumiko onism, unspeci fied
MONAADELE GIAN Brooke 04/20 [facility] [place] [facility] Outpatient Encounter [id number] 04/22 [facility] [place] [facility] OFF[facility] O/P EST MOD 30 MIN [id number] Diagnos is: ICD-10- CM R63.4 Abnorma l weight loss
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
PATITO FIGUEROA A 04/29 [facility] PRO PHONE CALL 21-30 MIN [id number] Diagnos is: ICD-10- CM F03.A18 Unspeci fied dementi a, mild, with other behavio ral disturb
ROJAS SNYDER RY K 05/01 [facility] [place] [facility] Outpatient Encounter [id number] 05/08 [facility] [place] [facility] OFFICE O/P NEW HI 60 MIN [id number] Diagnos is: ICD-10- CM R93.89 Abnorma l finding s on dx imaging of oth body structu res<br/ > RENUKA JOHNSON 05/13 [facility] [place] [facility] Outpatient Encounter [id number] CASEY DASILVA 05/14 [facility] Outpatient Encounter [id number] 05/20 [facility] OFFICE O/P EST HI 40 MIN [id number] Diagnos is: ICD-10- CM R93.89 Abnorma l finding s on dx imaging of oth body structu res<br/ > OSIEL MICHELLEDEBI M 05/26 [facility] Outpatient Encounter [id number] 05/26 [facility] OFF[facility] O/P EST MOD 30 MIN [id number] Diagnos is: ICD-10- CM R63.4 Abnorma l weight loss
LA OVIEDO 06/03 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
Diego HONEYCUTT 06/04 [facility] Outpatient Encounter [id number] 06/04 [facility] PRO PHONE CALL 11-20 MIN [phone] Diagnos is: ICD-10- CM D64.9 Anemia, unspeci fied
KINANE,RAC BENJAMIN M 06/05 [facility] Outpatient Encounter [id number] 06/11 [facility] DX [employer] [id number] Diagnos is: ICD-10- CM R93.7 Abnorma l finding s on diagnos tic imaging of prt ms sys<br/ > MARY KING S 06/12 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<br/ > RENUKA JOHNSON A 06/23 [facility] [place] [facility] [place] [facility] Outpatient Encounter [id number] ROJAS PARKER S 06/24 [facility] [place] [facility] [place] OFF/OP EST MAY X REQ PHY/QHP [id number] Diagnos is: ICD-10- CM R91.1 Solitar y pulmona ry nodule< br/> ROJAS PARKER S 06/24 [facility] [place] [facility] [place] [facility] Outpatient Encounter [id number] 07/02 [place] [facility] [place] [facility] [place] [id number] Diagnos is: ICD-10- CM R63.4 Abnorma l weight loss
TRUE GANDARA A 07/06 [place] [facility] [place] [facility] Outpatient Encounter [id number] 07/08 [place] [facility] [place] [facility] Outpatient Encounter [id number] Nancy HONEYCUTT 07/08 [place] [facility] Social History Combined list of available smoking, tobacco, and other social history from Department of Defense and Veterans Affairs facilities. Social History Type Response Date Comment [facility] e Tobacco smoking status [facility]-TOBACCO FORMER USER 08/21/2023 [facility] of [facility] 5 YRS OR MORE 08/21/2023 [facility] History of tobacco use [facility] FORMER USER 08/15/2022 [facility] History of tobacco use [facility] QUIT 1 5 YRS OR MORE 08/21/2021 [facility] History of tobacco use [facility] FORMER USER 07/09/2018 [facility] History of tobacco use FORMER TOBACCO US ER 7Y OR GREATER 07/18/2017 [facility] History of tobacco use FORMER TOBACCO US ER 7Y OR GREATER 08/14/2016 [facility] History of tobacco use FORMER TOBACCO US ER 7Y OR GREATER 06/29/2015 [facility] History of tobacco use FORMER TOBACCO US ER 7Y OR GREATER 01/06/2014 [facility] History of tobacco use FORMER TOBACCO US ER 7Y OR GREATER 01/04/2012 [facility] Plan of Care List of future care activities from Department of Veterans Affairs facilities. Additional future care activities may be listed in the Assessment and Plan section. Date/Time Care Activity Care Activity Detail Facili ty 07/08/2024 AMBULATORY - NONE AMBULATORY - NONE [facility] 07/16/2024 AMBULATORY - MEDICINE AMBULATORY - MEDICI NE [facility] 07/16/2024 AMBULATORY - MEDICINE AMBULATORY - MEDICI NE [facility] 07/16/2024 AMBULATORY - PSYCHIATRY AMBULATORY - PSYC HIATRY [facility] 07/16/2024 AMBULATORY - PSYCHIATRY AMBULATORY - PSYC HIATRY [facility] 08/14/2024 AMBULATORY - NONE AMBULATORY - NONE [facility] 10/07/2024 AMBULATORY - MEDICINE AMBULATORY - MEDICI NE [facility] 10/19/2024 AMBULATORY - NEUROLOGY AMBULATORY - NEURO LOGY [facility] 06/19/2024 Consult Order [facility] Cons Postdoctoral Scientist's Choice [facility]
--- OUTSIDE RECORDS SUMMARY | 2024-07-08 18:13 | XMS_ITS | Encounter Summary ---
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 Date/Time Encounter Type Encounter Description Reason Pro vider Source Aug 09, 2023 03:55 PM Outpatient Encounter PRIMARY CARE/MEDICINE I[facility] Encounter Template Text not used by [place] Plan of Treatment: Future Appointments (+ 6 months) and Future Tests (+/- 45 days) The Plan of Treatment section includes future care activities for the [facility] [place] [facility]. This section includes future appointments and [...] 21, 2023 10:30 AM AMBULATORY [place] [facility] Aug 21, 2023 11:15 AM AMBULATORY [place]IC[place] [facility] Aug 21, 2023 01:30 PM AMBULATORY - NONE [facility] Sep 28, 2023 07:00 AM AMBULATORY - NONE [facility] [facility] Oct 02, 2023 07:00 AM AMBULATORY - NONE [place] [facility] Oct 03, 2023 08:30 AM AMBULATORY [place] [facility] Oct 09, 2023 09:00 AM AMBULATORY - NONE [facility] [facility] Oct 09, 2023 10:00 AM AMBULATORY - MEDICINE [facility] [facility] Nov 07, 2023 09:30 AM AMBULATORY - MEDIC[place] [facility] Nov 07, 2023 10:30 AM AMBULATORY - MEDICINE [facility] [facility] Nov 07, 2023 11:30 AM AMBULATORY [place] [facility] Nov 07, 2023 11:45 AM AMBULATORY - MEDICINE [facility] [facility] Nov 20, 2023 09:00 AM [place] [facility] December 05, 2023 09:30 AM AMBULATORY [place] [facility] Feb 07, 2024 11:00 AM AMBULATORY - NONE [facility] [facility] Feb 07, 2024 11:30 AM AMBULATORY [place] SURGERY [facility] [facility] Feb 07, 2024 12:30 PM AMBULATORY - NONE [facility] [facility] Active, Pending, and Scheduled Orders This section includes a listing of several types of active, pending, and scheduled orders, including clinic medications orders, diagnostic test orders, procedure orders and consult orders; where the start date of the order is 45 days before the date of the Encounter or 45 days after the date of theEncounter. The data comes from all [facility]. Test Date/Time Test Type Test Details Facility Name Aug 15, 2023 12:00 AM Laboratory - Chemi stry Order BASIC METABOLIC PANEL+MG PLASMA [facility] Aug 15, 2023 12:00 AM Laboratory - Chemi stry Order HEMOGLOBIN A1C BLOOD [facility] Aug 15, 2023 12:00 AM Laboratory - Chemi stry Order CBC BLOOD [facility] Aug 21, 2023 04:02 PM Laboratory - Chemi stry Order URINALYSIS URINE ER STAT WC ONCE [facility] Lab Results: +/- [...] Range Comment Aug 21, 2023 02:27 PM [facility] URINALYSIS Specimen Type: URINE No comment entered. Ordering Provider: STEPH CHAVEZ Report Released Date/Time: Aug 21, 2023 01:11 PM Reporting Lab: [facility] [phone] Performing Lab: [facility] [phone] URINE COLOR YELLOW SPECIFIC GRAVITY 1.027 1.003-1.03 5 URINE BILIRUBIN NEGATIVE NEGATIVE URINE KETONES NEGATIVE NEGATIVE URINE GLUCOSE NEGATIVE mg/dL URINE PROTEIN 20 mg/dL URINE PH 6.0 5.0-8.0 URINE WBC/HPF 39 /[HPF] H 0-7 URINE BACTERIA NONE SEEN URINE RBC/HPF >180 /[HPF] H 0-3 APPEARANCE CLEAR SQUAMOUS EPITHELIAL 1 /[HPF] URINE BLOOD TRACE NEGATIVE URINE NITRITE NEGATIVE NEGATIVE LEUKOCYTE ESTERASE 250 NEGATIVE Aug 21, 2023 01:36 PM [facility] TROPONIN I, HS Specimen Type: PLASMA No comment entered. Ordering Provider: STEPH CHAVEZ Report Released Date/Time: Aug 21, 2023 01:11 PM Reporting Lab: [facility] [id number] Performing Lab: [facility] [phone] TROPONIN I, HS <3 <35 Aug 21, 2023 01:36 PM [facility] BASIC METABOLIC PANEL+MG Specimen Type: PLASMA No comment entered. Ordering Provider: STEPH CHAVEZ Report Released Date/Time: Aug 21, 2023 01:11 PM Reporting Lab: [facility] [phone] Performing Lab: [facility] [phone] CREATININE 1.2 mg/dL 0.7-1.2 UREA NITROGEN 23 mg/dL 8-26 GLUCOSE 82 mg/dL 70-100 SODIUM 142 mmol/L 136-145 POTASSIUM 3.7 mmol/L 3.5-5.1 CHLORIDE 105 mmol/L 98-107 CO2 30 mmol/L H 22-29 CALCIUM 8.7 mg/dL 8.4-10.2 MAGNESIUM 1.7 mg/dL 1.6-2.6 ANION GAP 7 mmol/L 5-15 .CREAT EGFR(CKD-EPI ) 63 >60 Aug 21, 2023 01:36 PM [facility] CBC & DIFF Specimen Type: BLOOD Comment: Automated Differential Performed Ordering Provider: STEPH CHAVEZ Report Released Date/Time: Aug 21, 2023 01:11 PM Reporting Lab: [facility] [address] Performing Lab: [facility] [address] WBC 6.27 10*3/uL 4.0-11.0 RBC 3.93 10*6/uL [...] 10*3/uL 0-0.1 Aug 21, 2023 01:32 PM [facility] EXTRA GOLD GEL TUBE Specimen Type: SERUM No comment entered. Ordering Provider: STEPH CHAVEZ Report Released Date/Time: Aug 21, 2023 01:36 PM Reporting Lab: [facility] [phone] Performing Lab: [facility] [phone] EXTRA GOLD GEL TUBE RECEIVED Aug 21, 2023 01:32 PM [facility] EXTRA BLUE TUBE Specimen Type: PLASMA No comment entered. Ordering Provider: STEPH CHAVEZ Report Released Date/Time: Aug 21, 2023 01:36 PM Reporting Lab: [facility] [phone] Performing Lab: [facility] [address] EXTRA BLUE TUBE RECEIVED Jul 11, 2023 10:38 AM [facility] BASIC METABOLIC PANEL+MG Specimen Type: PLASMA No comment entered. Ordering Provider: ISAEL ALVAREZ Report Released Date/Time: Jul 11, 2023 10:23 AM Reporting Lab: [facility] [phone] Performing Lab: [facility] [address] CREATININE 1.2 mg/dL 0.7-1.2 UREA NITROGEN 22 mg/dL 8-26 GLUCOSE 193 mg/dL H 70-100 SODIUM 143 mmol/L 136-145 POTASSIUM 3.7 mmol/L 3.5-5.1 CHLORIDE 108 mmol/L H 98-107 CO2 28 mmol/L 22-29 CALCIUM 9.2 mg/dL 8.4-10.2 MAGNESIUM 1.8 mg/dL 1.6-2.6 ANION GAP 7 mmol/L 5-15 .CREAT EGFR(CKD-EPI ) 63 >60 Jul 11, 2023 10:37 AM [facility] VITAMIN B-1,BLOOD Specimen Type: BLOOD Comment: Vitamin supplementation within 24 hours prior to blood draw may affect the accuracy of the results. This test was developed and its analytical performance characteristics have been determined by [employer] [place], [place]. It has not been cleared or approved by the U.S. Food and Drug Administration. This assay has been validated pursuant to the CLIA regulations and is used for clinical purposes. Test Performed by [facility] [employer] [place], [address] [place] [address] Devante Meyer M.D., Ph.D., Director of Laboratories , CLIA [id number] Ordering Provider: ISAEL ALVAREZ Report Released Date/Time: Jul 11, 2023 10:23 AM Reporting Lab: [facility] [phone] Performing Lab: [address] VITAMIN B-1,BLOOD 132 nmol/L 78-185 Jul 11, 2023 10:37 AM [facility] VITAMIN A Specimen Type: SERUM Comment: Vitamin supplementation within 24 hours prior to blood draw may affect the accuracy of the results. This test was developed and its analytical performance characteristics have been determined by [employer] [place]. It has not been cleared or approved by the U.S. Food and Drug Administration. This assay has been validated pursuant to the CLIA regulations and is used for clinical purposes. Test Performed by [facility] [employer] [place], [address] [place] [address] Devante Meyer M.D., Ph.D., Director of Laboratories , CLIA [id number] Ordering Provider: ISAEL ALVAREZ Report Released Date/Time: Jul 11, 2023 10:23 AM Reporting Lab: [facility] [phone] Performing Lab: [address] VITAMIN A 53 ug/dL 38-98 Jul 11, 2023 10:37 AM [facility] ZINC Specimen Type: SERUM Comment: This test was developed and its analytical performance characteristics have been determined by [employer] [place], [place]. It has not been cleared or approved by the U.S. Food and Drug Administration. This assay has been validated pursuant to the CLIA regulations and is used for clinical purposes. Test Per[facility] by [facility], [employer] [place], [address] [place] [address] Devante Meyer M.D., Ph.D., Director of Laboratories , CLIA [id number] Ordering Provider: ISAEL ALVAREZ Report Released Date/Time: Jul 11, 2023 10:23 AM Reporting Lab: [facility] [phone] Performing Lab: [address] ZINC 78 ug/dL 60-130 Jul 11, 2023 10:37 AM [facility] COPPER Specimen Type: PLASMA Comment: This test was developed and its analytical performance characteristics have been determined by [employer] [place]. It has not been cleared or approved by the U.S. Food and Drug Administration. This assay has been validated pursuant to the CLIA regulations and is used for clinical purposes. Test Performed by [facility], [employer] [facility], [address] [place] [address] Devante Meyer M.D., Ph.D., Director of Laboratories , CLIA [id number] Ordering Provider: ISAEL ALVAREZ Report Released Date/Time: Jul 11, 2023 10:23 AM Reporting Lab: [facility] [phone] Performing Lab: [address] COPPER 81 ug/dL 70-175 Jul 11, 2023 10:37 AM [facility] HEMOGLOBIN A1C [...] Jul 11, 2023 10:23 AM Reporting Lab: [facility] [address] Performing Lab: [facility] [address] HEMOGLOBIN A1C 6.5 H 4.0-6.0 Jul 11, 2023 10:37 AM [facility] FERRITIN Specimen Type: SERUM No comment entered. Ordering Provider: ISAEL ALVAREZ Report Released Date/Time: Jul 11, 2023 10:23 AM Reporting Lab: [facility] [address] Performing Lab: [facility] [address] FERRITIN 66.0 ng/mL 21.8-274.7 Jul 11, 2023 10:37 AM [facility] LIPID PANEL,NON-FASTING Specimen Type: PLASMA Comment: [...] Jul 11, 2023 10:23 AM Reporting Lab: [facility] [address] Performing Lab: [facility] Jul 11, 2023 10:37 AM [facility] PRE-ALBUMIN Specimen Type: SERUM No comment entered. Ordering Provider: ISAEL ALVAREZ Report Released Date/Time: Jul 11, 2023 10:23 AM Reporting Lab: [facility] [address] Performing Lab: [facility] [address] PRE-ALBUMIN 22.5 mg/dL 14.0-45.0 Jul 11, 2023 10:37 AM [facility] B 12 Specimen Type: PLASMA No comment entered. Ordering Provider: ISAEL ALVAREZ Report Released Date/Time: Jul 11, 2023 10:23 AM Reporting Lab: [facility] [address] Performing Lab: [facility] [address] B 12 1016 pg/mL H 213-816 Jul 11, 2023 10:37 AM [facility] CBC Specimen Type: BLOOD No comment entered. Ordering Provider: ISAEL ALVAREZ Report Released Date/Time: Jul 11, 2023 10:23 AM Reporting Lab: [facility] [address] Performing Lab: [facility] [address] WBC 7.56 10*3/uL 4.0-11.0 RBC 4.25 10*6/uL L 4.6-6.2 HGB 12.5 g/dL L 13.5-17.9 HCT 39.1 L 41-54 MCV 92.0 fL 80-100 MCH 29.4 pg 27-33 MCHC 32.0 g/dL 32.0-37.5 PLT 249 10*3/uL 150-400 MPV 9.8 fL 7.4-10.4 RDW 14.6 H 11.5-14.5 Jul 11, 2023 10:37 AM [facility] FOLATE Specimen Type: SERUM No comment entered. Ordering Provider: ISAEL ALVAREZ Report Released Date/Time: Jul 11, 2023 10:23 AM Reporting Lab: [facility] [address] Performing Lab: [facility] [address] FOLATE 17.8 ng/mL >7.0 Jul 11, 2023 10:37 AM [facility] VIT D 25-OH,TOTAL Specimen Type: SERUM No comment entered. Ordering Provider: ISAEL ALVAREZ Report Released Date/Time: Jul 11, 2023 10:23 AM Reporting Lab: [facility] [address] Performing Lab: [facility] [address] VIT D 25-OH,TOTAL 68 ng/mL H 12-50 Jul 11, 2023 10:37 AM [facility] IRON GROUP Specimen Type: SERUM Comment: [...] Jul 11, 2023 10:23 AM Reporting Lab: [facility] [address] Performing Lab: [facility] Jul 11, 2023 10:37 AM [facility] MAGNESIUM Specimen Type: PLASMA No comment entered. Ordering Provider: ISAEL ALVAREZ Report Released Date/Time: Jul 11, 2023 10:23 AM Reporting Lab: [facility] [address] Performing Lab: [facility] [address] MAGNESIUM 1.7 mg/dL 1.6-2.6 Jul 11, 2023 10:37 AM [facility] CALCIUM Specimen Type: PLASMA No comment entered. Ordering Provider: ISAEL ALVAREZ Report Released Date/Time: Jul 11, 2023 10:23 AM Reporting Lab: [facility] [address] Performing Lab: [facility] [address] CALCIUM 9.2 mg/dL 8.4-10.2 Jul 11, 2023 10:37 AM [facility] PTH-N-TACT Specimen Type: SERUM No comment entered. Ordering Provider: ISAEL ALVAREZ Report Released Date/Time: Jul 11, 2023 10:23 AM Reporting Lab: [facility] [address] Performing Lab: [facility] [address] PTH-N-TACT 30.3 pg/mL 8.7-77.1 Social History: Smoking Status (Most current) [...] YRS OR MORE [facility] Tobacco Use History [...] FORMER TOBACCO USER 7Y OR MARVAE R [facility] Jun 29, 2015 02:03 PM FORMER TOBACCO USER 7Y OR MARVAE R [facility] Jan 06, 2014 03:04 PM FORMER TOBACCO USER 7Y OR MARVAE R [facility] Jan 04, 2012 08:36 AM FORMER TOBACCO USER 7Y OR MARVAE R [facility] Radiology Reports: +/- [...] Hospital facilities. Date/Time Radiology Report Provider Source Aug 21, 2023 01:[address] C-SPINE W/O (P) : DONNA,JUAN LEDESMAIC [id number] -1945 M Exm Date: AUG 21, 2023@13:29 Req Phys: STEPH CHAVEZ Loc: [facility] EM[facility]GENCY [facility] WALK-IN (Re Img Loc: CT IMAGING Service: Unknown (Case [id number] COMPLETE) CT CERVICAL SPINE W/O CONTRAST (CT Detailed) CPT:22957 Reason for Study: fall hit head Clinical [...] any questions or notifications of critical findings: earnestine If ordering provider is a trainee, enter the name and contact information of the responsible staff physician. earnestine LAST 3: Collection DT Specimen Test Name [...] PLASMA .CREAT EGFR(CKD-E 70 Ref: >=60 Allergies: ([place] only) SULFAMETHOXAZOLE (Feb 07, 2022) EMPAGLIFLOZIN (Jun 06, 2022) To see allergies from all [place] locations click Reports tab>Remote Data>All Available Sites>Clinical Reports>Allergies. Report Status: Verified Date Reported: AUG 21, 2023 Date Verified: AUG 21, 2023 Authorization Representative E-Sig:/ES/OMAIRA LANDERS MD Report: CT CERVICAL SPINE [...] Primary Interpreting Staff: OMAIRA LANDERS MD, RADIOLOGIST (Authorization Representative) /[facility] OMAIRA LANDERS [facility] Aug 21, 2023 01:[address] HEAD (P): JUAN THOMPSON [id number] -1945 M Exm Date: AUG 21, 2023@13:28 Req Phys: STEPH CHAVEZ Pat Loc: [facility] EMERGENCY [facility] WALK-IN (Re Img Loc: CT IMAGING Service: Unknown (Case [id number] COMPLETE) CT HEAD/BRAIN W/O CONTRAST (CT Detailed) CPT:73439 Reason for Study: fall hit head Clinical History: IS NOT under investigation for COVID-19 or is COVID-19 negative Defer to radiologist for final CT protocol. Please enter pertinent clinical history on the next page. Contact number for responsbile provider who can be reached for any questions or notifications of critical findings: MITHANI If ordering provider is a trainee, enter the name and contact information of the responsible staff physician. MITHANi LAST 3: Collection DT Specimen Test Name [...] PLASMA .CREAT EGFR(CKD-E 70 Ref: >=60 Allergies: ([place] only) SULFAMETHOXAZOLE (Feb 07, 2022) EMPAGLIFLOZIN (Jun 06, 2022) To see allergies from all [place] locations click Reports tab>Remote Data>All Available Sites>Clinical Reports>Allergies. Report Status: Verified Date Reported: AUG 21, 2023 Date Verified: AUG 21, 2023 Authorization Representative E-Sig:/ES/SWATHI STACY MD Report: NONCONTRAST CT OF [...] Primary Interpreting Staff: SWATHI STACY MD, RADIOLOGIST (Authorization Representative) /SWATHI [place] [facility] Encounter Notes: All [...] Center Scheduling (PtCSch) Contact attempt made to [place] 1st attempt, 07/16/23 Letter - Sent letter by regular [place] mail to address on file: 2nd attempt Text message, 07/23/23 If calls back, schedule appt for: DOROTHY VERGARA L RES 03 RTC +12M W/NF [id number] FED 08/15/22 Dispositioned: 08/09/23 /pablo/ Will Iniguez CP, BOCO Fire Pot Operator Signed: 08/09/2023 15:55 WILL INIGUEZ [facility]
--- OUTSIDE RECORDS SUMMARY | 2024-07-08 18:13 | XMS_ITS | Encounter Summary ---
Author Name [facility] [place] [facility] [place] Organization [facility] [place] Address [address] [place] [address] Care Team Providers Care Curtain Cleaner Name Role Phone SONIA PHILLIPS Primary Care [...] PART B Sep 26, 2012 PART B [id number] [phone] JUAN THOMPSON JR PATIENT MEDICARE (WNR) MEDICARE (M) PART A Sep 26, 2012 PART A [id number] JUAN THOMPSON JR PATIENT Selected Encounter This [...] for the patient [facility] all [place] [facility]. This section includes future appointments [...] 2023 10:30 AM AM[place] [facility] Aug 21, 2023 11:15 AM [place] [facility] Aug 21, 2023 01:30 PM [place] [facility] Sep 28, 2023 07:00 AM [place] [facility] Oct 02, 2023 07:00 AM [place] [facility] Oct 03, 2023 08:30 AM [place] [facility] Oct 09, 2023 09:00 AM [place] [facility] Oct 09, 2023 10:00 AM [place] [facility] Nov 07, 2023 09:30 AM [place] [facility] Nov 07, 2023 10:30 AM [place] [facility] Nov 07, 2023 11:30 AM AM[place] [facility] Nov 07, 2023 11:45 AM [place] [facility] Nov 20, 2023 09:00 AM [place] [facility] December 05, 2023 09:30 AM [place] [facility] Feb 07, 2024 11:00 AM [place] [facility] Feb 07, 2024 11:30 AM [place] [facility] Feb 07, 2024 12:30 PM AM[place]ORY - [place]ONE [place] [facility] Active, Pending, and Scheduled Orders This section includes a listing of several types of active, pending, and scheduled orders, including clinic medications orders, diagnostic test orders, procedure orders and consult orders; where the start date of the order is 45 days before the date of the Encounter or 45 days after the date of theEncounter. The data comes from all [facility]. Test Date/Time Test Type Test Details Facility Name Aug 15, 2023 12:00 AM Laboratory - Chemi stry Order BASIC METABOLIC PANEL+MG PLASMA [facility] Aug 15, 2023 12:00 AM Laboratory - Chemi stry Order HEMOGLOBIN A1C BLOOD [facility] Aug 15, 2023 12:00 AM Laboratory - Chemi stry Order CBC BLOOD [facility] Aug 21, 2023 04:02 PM Laboratory - Chemi stry Order URINALYSIS URINE ER STAT WC ONCE [facility] Lab Results: +/- 30 days of [...] Range Comment Aug 21, 2023 02:27 PM [facility] URINALYSIS Specimen Type: URINE No comment entered. Ordering Provider: STEPH CHAVEZ Report Released Date/Time: Aug 21, 2023 01:11 PM Reporting Lab: [facility] [id number] Performing Lab: [facility] [address] URINE COLOR YELLOW SPECIFIC GRAVITY 1.027 1.003-1.035 [...] 250 NEGATIVE Aug 21, 2023 01:36 PM [facility] BASIC METABOLIC PANEL+MG Specimen Type: PLASMA No comment entered. Ordering Provider: STEPH CHAVEZ Report Released Date/Time: Aug 21, 2023 01:11 PM Reporting Lab: [facility] [address] Performing Lab: [facility] [address] CREATININE 1.2 mg/dL 0.7-1.2 UREA NITROGEN 23 mg/dL 8-26 GLUCOSE 82 mg/dL 70-100 SODIUM 142 mmol/L 136-145 POTASSIUM 3.7 mmol/L 3.5-5.1 CHLORIDE 105 mmol/L 98-107 CO2 30 mmol/L H 22-29 CALCIUM 8.7 mg/dL 8.4-10.2 MAGNESIUM 1.7 mg/dL 1.6-2.6 ANION GAP 7 mmol/L 5-15 .CREAT EGFR(CKD-EPI ) 63 >60 Aug 21, 2023 01:36 PM [facility] TROPONIN I, HS Specimen Type: PLASMA No comment entered. Ordering Provider: STEPH CHAVEZ Report Released Date/Time: Aug 21, 2023 01:11 PM Reporting Lab: [facility] [id number] Performing Lab: [facility] [address] TROPONIN I, HS <3 <35 Aug 21, 2023 01:36 PM [facility] CBC & DIFF Specimen Type: BLOOD Comment: Automated Differential Performed Ordering Provider: STEPH CHAVEZ Report Released Date/Time: Aug 21, 2023 01:11 PM Reporting Lab: [facility] [address] Performing Lab: [facility] [address] WBC 6.27 10*3/uL 4.0-11.0 RBC 3.93 10*6/uL [...] 10*3/uL 0-0.1 Aug 21, 2023 01:32 PM [facility] EXTRA GOLD GEL TUBE Specimen Type: SERUM No comment entered. Ordering Provider: STEPH CHAVEZ Report Released Date/Time: Aug 21, 2023 01:36 PM Reporting Lab: [facility] [phone] Performing Lab: [facility] [address] EXTRA GOLD GEL TUBE RECEIVED Aug 21, 2023 01:32 PM [facility] EXTRA BLUE TUBE Specimen Type: PLASMA No comment entered. Ordering Provider: STEPH CHAVEZ Report Released Date/Time: Aug 21, 2023 01:36 PM Reporting Lab: [facility] [id number] Performing Lab: [facility] [address] EXTRA BLUE TUBE RECEIVED Social History: Smoking Status (Most current) and [...] 09:00 AM VA-TOBACCO FORMER USER [facility] Tobacco Use History This section includes a history of the smoking, or tobacco-related health factors, that were collected on or before the date of the Encounter. The data comes from the [place] facility where the Encounter took place. Date/Time Smoking Status/Tobacco Use Comment F acility Aug 15, 2022 09:00 AM VA-TOBACCO QUIT 15 YRS OR MORE [facility] Aug 21, 2021 01:00 PM VA-TOBACCO FORMER USER [facility] Aug 21, 2021 01:00 PM VA-TOBACCO QUIT 15 YRS OR MORE [facility] Jul 09, 2018 08:58 AM VA-TOBACCO FORMER USER [facility] Jul 09, 2018 08:58 AM [place]-TOBACCO QUIT 15 YRS OR MORE [facility] Jul 18, 2017 09:58 AM FORMER TOBACCO USER 7Y OR GREATE R [facility] Aug 14, 2016 10:59 AM FORMER TOBACCO USER 7Y OR GREATE R [facility] Jun 29, 2015 02:03 PM FORMER TOBACCO USER 7Y OR KIAH Khan [facility] Jan 06, 2014 03:04 PM FORMER TOBACCO USER 7Y OR KIAH Khan [facility] Jan 04, 2012 08:36 AM FORMER TOBACCO USER 7Y OR KIAH Khan [facility] Radiology Reports: +/- 30 days of the [...] CT C-SPINE W/O (P) : JUAN THOMPSON [id number] -1945 M Ex Date: AUG 21, 2023@13:29 Req Phys: STEPH CHAVEZ Loc: [facility] EMERGENCY DEPT WALK-IN (Re Img Loc: CT IMAGING Service: Unknown (Case [id number] COMPLETE) CT CERVICAL SPINE W/O CONTRAST (CT Detailed) CPT:30361 Reason for Study: fall hit head Clinical [...] PLASMA .CREAT EGFR(CKD-E 70 Ref: >=60 Allergies: ([place] only) SULFAMETHOXAZOLE (Feb 07, 2022) EMPAGLIFLOZIN (Jun 06, 2022) To see allergies from all [place] locations click Reports tab>Remote Data>All Available Sites>Clinical Reports>Allergies. Report Status: Verified Date Reported: AUG 21, 2023 Date Verified: AUG 21, 2023 Shaping Machine Tender E-Sig:/ES/OMAIRA LANDERS MD Report: CT CERVICAL SPINE [...] Primary Interpreting Staff: OMAIRA LANDERS MD, RADIOLOGIST (Shaping Machine Tender) /[facility] OMAIRA LANDERS [facility] Aug 21, 2023 01:[address] HEAD (P): JUAN THOMPSON [id number] -1945 M Ex Date: AUG 21, 2023@13:28 Req Phys: STEPH CHAVEZ Loc: [facility] EMERGENCY DEPT WALK-IN (Re Img Loc: CT IMAGING Service: Unknown (Case [id number] COMPLETE) CT HEAD/BRAIN W/O CONTRAST (CT Detailed) CPT:01456 Reason for Study: fall hit head Clinical History: [place] IS NOT under investigation for COVID-19 or [...] PLASMA .CREAT EGFR(CKD-E 70 Ref: >=60 Allergies: ([place] only) SULFAMETHOXAZOLE (Feb 07, 2022) EMPAGLIFLOZIN (Jun 06, 2022) To see allergies from all [place] locations click Reports tab>Remote Data>All Available Sites>Clinical Reports>Allergies. Report Status: Verified Date Reported: AUG 21, 2023 Date Verified: AUG 21, 2023 Shaping Machine Tender E-Sig:/ES/SWATHI STACY MD Report: NONCONTRAST CT OF [...] Primary Interpreting Staff: SWATHI STACY MD, RADIOLOGIST (Shaping Machine Tender) /SWATHI [place]Y [facility] Encounter Notes: All associated encounter notes This section contains the clinical notes associated to the Encounter. Date/Time Encounter Note(s) Provider Source Aug 14, 2023 12:03 PM HOME HEALTH REFERR [place] NOTE: LOCAL TITLE: [facility] CARE STANDARD TITLE: HOME HEALTH REFERRAL NOTE DATE OF NOTE: AUG 14, 2023@12:03 ENTRY DATE: AUG 14, 2023@12:03:32 AUTHOR: STACEY SEWELL EXP COSIGNER: URGENCY: STATUS: COMPLETED HOME HEALTH CARE CERTIFICATION AND PLAN OF CARE SIGNED BY: [facility] Sonia Phillips[facility] Cert[facility] period From: Jun To: Aug /pablo/ STACEY SEWELL RN Signed: 08/14/2023 12:04 STACEY SEWELL [facility]
--- OUTSIDE RECORDS SUMMARY | 2024-07-08 18:26 | XMS_ITS | Encounter Summary ---
Author Name Department of [place] [place] Organization [place] Address [address] [place] [address] Care Team Providers Care Colorman Name Role Phone SONIA PHILLIPS Primary Care [...] PART A Sep 26, 2012 PART A [id number] [phone] JUAN THOMPSON JR PATIENT MEDICARE (WNR) MEDICARE (M) PART B Sep 26, 2012 PART B [id number] [phone] JUAN THOMPSON JR PATIENT Selected Encounter This [...] activities for the patient from all [place] [facility]. This section includes future appointments and future orders which are active, pending or scheduled. Future Appointments This section includes appointments that were scheduled to occur 6 months from the date of the Encounter, up to a maximum of 20 appointments. The data comes from all [facility]. Appointment Date/Time Appointment Type Appointme nt Facility Name Jul 06, 2024 08:30 AM AM[place]ORY [place] [facility] Jul 08, 2024 11:07 AM [place] [facility] Jul 16, 2024 07:30 AM [facility] Jul 16, 2024 08:30 AM [facility] Jul 16, 2024 09:00 AM [place] [place] [facility] Jul 16, 2024 09:30 AM [facility] [place] [facility] Aug 14, 2024 03:00 PM [place]ORY - [place]ONE [place] [facility] Oct 07, 2024 09:00 AM [place]IC[place] [facility] Oct 19, 2024 09:30 AM AM[place] [facility] Active, Pending, and Scheduled [...] data comes from all [facility]. Test Date/Time Test Type Test Details Facility Name Jun 19, 2024 04:32 PM Consult Order COMMUNITY CARE-NUCLEAR MEDICINE Cons Clinical Nurse Educator's Choice [facility] Lab Results: +/- 30 [...] May 26, 2024 09:45 AM Reporting Lab: [facility] [id number] Performing Lab: [facility] [address] PHOSPHORUS 3.4 mg/dL 2.3-4.3 Jun 12, 2024 07:22 AM [facility] RETICS Specimen Type: BLOOD Comment: Automated Differential Performed Ordering Provider: AYANA MICHELLE Report Released Date/Time: May 26, 2024 09:53 AM Reporting Lab: [facility] [address] Performing Lab: [facility] [address] ABS RETIC 0.0429 0.0300-0.1 000 .RETICULOCYTE 1.06 0.6-2.0 IMMATURE RETIC 5.9 1.0-14.0 .RETICULOCYTE HE 30.5 pg 28.2-36.6 Jun 12, 2024 07:22 AM [facility] COMPREHENSIVE METABOLIC PANEL+MG Specimen Type: PLASMA No comment entered. Ordering Provider: AYANA MICHELLE Report Released Date/Time: May 26, 2024 09:45 AM Reporting Lab: [facility] [address] Performing Lab: [facility] [address] CREATININE 1.0 mg/dL 0.7-1.2 UREA NITROGEN 22 [...] May 26, 2024 09:45 AM Reporting Lab: [facility] [address] Performing Lab: [facility] [address] WBC 6.4 4.0-11.0 RBC 4.05 L 4.60-6.20 [...] Jun 03, 2024 10:39 AM Reporting Lab: [facility] [address] Performing Lab: [facility] [address] URINE COLOR YELLOW SPECIFIC GRAVITY 1.018 1.003-1.03 [...] and tobacco- related health factors from the [facility] where the Encounter took place. Current Smoking Status This section includes the most current smoking, or tobacco-related health factor, from the [place] facility where the Encounter took place. Date/Time Current Smoking Status Comment Facil ity Aug 21, 2023 10:30 AM VA-TOBACCO FORMER USER [facility] Tobacco [...] data comes from all [place] treatment facilities. Date/Time Pathology Report Provider Source Jun 16, 2024 12:06 PM LR SURGICAL PATHOL OGY REPORT: LOCAL TITLE: LR SURGICAL PATHOLOGY REPORT STANDARD TITLE: PATHOLOGY REPORT DATE OF NOTE: JUN 16, 2024@12:06:01 ENTRY DATE: JUN 16, 2024@12:06:01 AUTHOR: BRIELLE OROURKE COSIGNER: URGENCY: STATUS: COMPLETED $APHDR Reporting Lab: [facility] [CLIA# [id number]] [place] [address] - - - - - - - [...] in cassette B. Grossing performed by: DAVID, Sales Representative Door To Door Entered by: DAVID, Sales Representative Door To Door Grossing confirmed by: Brielle Orourke Hematopathologist This report includes the results of laboratory tests utilizing Analyte Specific Reagents or commercially available antibodies (Braddock and Lambda CISH Probes). These tests have been developed, fully validated, and their optimal performance characteristics determined by the [facility]. Such tests have not been [...] see also concurrent negative flow cytometry study ([id number]). Imaging studies concerning for possible lytic lesions [...] controls for CD3, CD20, CD34, CD61, CD138, Braddock and lambda light chains, and pankeratin are [...] MD STAFF PATHOLOGIST, PATHOLOGY & LABORATORY [facility] Signed Jun 16, 2024@12:06 Performing Laboratory: Surgical Pathology Report Performed By: [facility] [CLIA# [id number]] [place] [address] $FTR - - - - - - - - - - - - - - - - - - - - - - - - - - - - - - - - - - - - - - - - (End of report) BRIELLE OROURKE MD [facility] [place] Date Jun 16, 2024 - - - - - - - - - - - - - - - - - - - - - - - - - - - - - - - - - - - - - - - - JUAN THOMPSON STANDARD FORM 515 ID:[id number] SEX:M :1945 AGE: 78 LOC:[id number] PCP: Sonia Phillips /aneesh OROURKE MD STAFF PATHOLOGIST, PATHOLOGY & LABORATORY [facility] Signed: 06/16/2024 12:06 BRIELLE OROURKE [facility] Jun 16, 2024 12:02 PM LR SURGICAL PATHOL OGY REPORT: LOCAL TITLE: LR SURGICAL PATHOLOGY REPORT STANDARD TITLE: PATHOLOGY REPORT DATE OF NOTE: JUN 16, 2024@12:02:40 ENTRY DATE: JUN 16, 2024@12:02:40 AUTHOR: BRIELLE OROURKE EXP COSIGNER: URGENCY: STATUS: COMPLETED $APHDR Reporting Lab: [facility] [CLIA# [id number]] [place] [address] - - - - - - - [...] morphologic correlation see bone marrow biopsy report [id number]. Summary: On CD45 vs. side scatter analysis, [...] MD STAFF PATHOLOGIST, PATHOLOGY & LABORATORY [facility] Signed Jun 16, 2024@12:02 Performing Laboratory: Surgical Pathology Report Performed By: [facility] [CLIA# [id number]] [place] [address] $FTR - - - - - - - - - - - - - - - - - - - - - - - - - - - - - - - - - - - - - - - - (End of report) BRIELLE OROURKE MD [facility] [place] Date Jun 16, 2024 - - - - - - - - - - - - - - - - - - - - - - - - - - - - - - - - - - - - - - - - JUAN THOMPSON JR STANDARD FORM 515 ID:[id number] SEX:M :1945 AGE: 78 LOC:[id number] PCP: Sonia Phillips /pablo/ BRIELLE OROURKE MD STAFF PATHOLOGIST, PATHOLOGY & LABORATORY [facility] Signed: 06/16/2024 12:02 BRIELLE OROURKE [facility] Encounter Notes: All associated encounter [...] Name: JUAN THOMPSON JR Patient Primary Address: [address] [place] [address] Patient Primary Phone: [phone] Patient : 1945 Patient Age: 78 Current Location: [address] [place] [address] Call Back Number: [phone] Caller/Recipient Relation to Patient: Self Caller Name: JUAN THOMPSON Emergency Contact: SIRIA THOMPSON Triage Summary Utilized [...] approval or authorization for payment by the [place] or its staff. Patient advised to report a community ED visit to the [facility] Office of Community Care at within 72 hours. 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 stated that it is red especially where he itched it and warm to touch. stated that he has noticed this around 3 days and try to elevate. [place] stated he has generalized pain in hips and knees rating 3' out of 10 but no pain in calves. stated that husky massage his leg rubbing against him and has a bruise but no pain. [place] stated that he always sleep with 2 pillows for the past 2 years and not been short of breath but gets up to go to bathroom. [place] stated that he is wearing Velco boots form [place] since he is unable to wear his shoes. [place] denied any chest pain, shortness or breath, dizziness, fever, diaphoresis, drainage of legs. [place] is able to speak in complete clear sentences. Triaged for System recommended to be seen within 24 hours. RN uptriaged to be seen within 2-8 hours or sooner due to left greater than right calf swelling, wearing Velcro boots unable to wear shoes, history of A fib or delayed treatment could cause further damage, heart issues or life threatening. stated the [place] ER is [place] miles [place] stated the nearest ER is [place] less than 2 miles. [place] stated that they have emergency response team that will come out to get you. [place] agreed to be seen within 2-8 hours [...] Contact Center Codes Clinic/Location: [facility] PHONE [facility] RN Decision Support System Output: Triage Complete Triage Date: 07/02/2024, 10:09 PM Triage Note: Decision Support Tool Used: [facility] Phone Triage 03 Jul 2024 02:59:24 +0000 [facility] Demographics 78 y/o Male Results CC: Calf Swelling (bilateral) Software suggested: Within 24 Hours Software suggested follow-up location: Clinic, consider [facility] Values and Measures Respiratory Rate: 16 bpm [...] PMH: HIV positive Denies: PSH: organ transplant [place] Education Verbal Education Provided for: Leg Swelling Home Care IMPORTANT: This note was created by [facility] Clinical Contact Center staff. Please do not alert the staff member by adding them as a signer for future communications. Alerts are not monitored by this user. /es/ CIPRIANO LYLES RN TELECARE NURSE Signed: 07/02/2024 21:30 Receipt Acknowledged By: 07/03/2024 15:53 /es/ Brittani Hernandez RN Registered Nurse 07/03/2024 07:32 /es/ MANGO MONTES MD PHYSICIAN for SONIA PHILLIPS 07/03/2024 ADDENDUM STATUS: UNSIGNED You may not [...] Name: JUAN THOMPSON JR Patient Primary Address: [address] [place] [address] Patient Primary Phone: [phone] Patient : 1945 Patient Age: 78 Current Location: [address] [place] [address] Call Back Number: [phone] Caller/Recipient Relation to Patient: Self Caller Name: [...] approval or authorization for payment by the [place] or its staff. Patient advised to report a community ED visit to the national Office of Community Care at within 72 hours. 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 [place] stated that it is red especially where he itched it and warm to touch. [place] stated that he has noticed this around 3 days and try to elevate. stated he has generalized pain in hips and knees rating 3' out of 10 but no pain in calves. [place] stated that sarthak massage his leg rubbing against him and has a bruise but no pain. [place] stated that he always sleep with 2 pillows for the past 2 years and not been short of breath but gets up to go to bathroom. [place] stated that he is wearing Velco boots form [place] since he is unable to wear his [...] heart issues or life threatening. stated the [place] ER is [place] stated the nearest ER is [place] less than 2 miles. stated that they have emergency response team that will come out to get you. [place] agreed to be seen within 2-8 hours and will either call emergency rapid response or call his neighbor to take him Rn advised to call if worsening symptoms or if acute emergency, call 911. verbalized understanding. [place] requested a call back from the clinic for follow up swelling in calves Please call [place] at on 07/03/2024 follow up as above. Thank you. Clinical Contact Center Codes Clinic/Location: [facility] PHONE [facility] RN Decision Support System Output: Triage Complete Triage Date: 07/02/2024, 10:09 PM Triage Note: Decision Support Tool Used: [facility] Phone Triage 03 Jul 2024 02:59:24 +0000 [facility] Demographics 78 y/o Male Results CC: Calf Swelling (bilateral) Software suggested: Within 24 Hours Software suggested follow-up location: Clinic, [facility] Values and Measures Respiratory Rate: 16 bpm [...] PMH: HIV positive Denies: PSH: organ transplant [place] Education Verbal Education Provided for: Leg Swelling Home Care IMPORTANT: This note was created by [facility] Clinical Contact Center staff. Please do not alert the staff member by adding them as a signer for future communications. Alerts are not monitored by this user. /es/ CIPRIANO LYLES RN TELECARE NURSE Signed: 07/02/2024 21:30 Receipt Acknowledged By: 07/03/2024 15:53 /es/ Brittani Hernandez RN Registered Nurse 07/03/2024 07:32 /es/ MANGO MONTES MD PHYSICIAN for SONIA PHILLIPS 07/03/2024 ADDENDUM STATUS: COMPLETED Good morning: I'm covering for Dr. Phillips today. Could you please contact patient as requested and let me know if something needed from my end? Thank you. /pablo/ MANGO MONTES MD PHYSICIAN Signed: 07/03/2024 07:33 Receipt Acknowledged By: 07/03/2024 16:05 /es/ Brittani Hernandez RN Registered Nurse 07/03/2024 ADDENDUM STATUS: COMPLETED Reviewed chart, no notes available in CPRS or JLV to suggest pt sought care. Called pt, no answer, left brief message on self-identified VM requesting return call to provided number. Called pt's guardianNathalie ( ), no answer, left detailed message on confidential self identified VM requesting return call for update and/or assistance with coordinating f/u if needed. /es/ Brittani Hernandez RN Registered Nurse Signed: 07/03/2024 16:07 Receipt Acknowledged By: * AWAITING SIGNATURE * LYUBOV YEUNG 07/08/2024 ADDENDUM STATUS: COMPLETED FYI only to provider, no action requested: Spoke to javier Harris. Vet went to [place] ED 07/06. Was not admitted to the hospital. D/c paperwork unavailable through CPRS or JLV. Have submitted request to Emergency Care Reporting which should hopefully help produce paperwork from the visit. /pablo/ RENU KEVIN RN Signed: 07/08/2024 09:29 Receipt Acknowledged By: * AWAITING SIGNATURE * LYUBOV YEUNG [facility]
--- OUTSIDE RECORDS SUMMARY | 2024-07-08 18:30 | XMS_ITS | Encounter Summary ---
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 Date/Time Encounter Type Encounter Description Reason Pro vider Source Aug 22, 2023 02:18 PM Outpatient Encounter COMMUNITY CARE CONSULT IHE Encounter Template Text not used by [facility] Plan of Treatment: Future Appointments (+ 6 months) and Future Tests (+/- 45 days) The Plan of Treatment section includes future care activities for the [facility] [place] [facility] This section includes future appointments and future orders which are active, pending or scheduled. Future Appointments This section includes appointments that were scheduled to occur 6 months from the date of the Encounter, up to a maximum of 20 appointments. The data comes from all [facility]. Appointment Date/Time Appointment Type Appointme nt Facility Name Sep 28, 2023 07:00 AM AMB[facility]ATORY - NONE [place] [facility] Oct 02, 2023 07:00 [facility] Oct 03, 2023 08:30 AM [facility] [place] [place] [facility] Oct 09, 2023 09:00 [facility] Oct 09, 2023 10:00 AM [facility] Nov 07[facility] 2023 09:30 [facility] Nov 07, 2023 10:30 [facility] Nov 07[facility] 2023 11:30 AM [facility] [place] [facility] Nov 07, 2023 11:45 [facility] Nov 20, 2023 09:00 AM [facility] December 05, 2023 09:30 AM [place] [facility] Feb 07, 2024 11:00 AM [facility] Feb 07, 2024 11:30 AM [facility] [place] [facility] Feb 07, 2024 12:30 PM [facility] Feb 18, 2024 08:00 AM [facility] Active, Pending, and Scheduled Orders This section includes a listing of several types of active, pending, and scheduled orders, including clinic medications orders, diagnostic test orders, procedure orders and consult orders; where the start date of the order is 45 days before the date of the Encounter or 45 days after the date of theEncounter. The data comes from all [facility]. Test Date/Time Test Type Test Details Facility Name Aug 15, 2023 12:00 AM Laboratory - Chemi stry Order BASIC METABOLIC PANEL+MG PLASMA SP [facility] Aug 15, 2023 12:00 AM Laboratory - Chemi stry Order HEMOGLOBIN A1C BLOOD [facility] Aug 15, 2023 12:00 AM Laboratory - Chemi stry Order CBC BLOOD [facility] Aug 21, 2023 04:02 PM Laboratory - Chemi stry Order URINALYSIS URINE ER STAT WC ONCE [facility] Lab Results: +/- 30 days of the [...] Range Comment Aug 21, 2023 02:27 PM [facility] URINALYSIS Specimen Type: URINE No comment entered. Ordering Provider: STEPH CHAVEZ Report Released Date/Time: Aug 21, 2023 01:11 PM Reporting Lab: [facility] [id number] Performing Lab: [facility] [id number] URINE COLOR YELLOW SPECIFIC GRAVITY 1.027 1.003-1.035 [...] 250 NEGATIVE Aug 21, 2023 01:36 PM [facility] TROPONIN I, HS Specimen Type: PLASMA No comment entered. Ordering Provider: STEPH CHAVEZ Report Released Date/Time: Aug 21, 2023 01:11 PM Reporting Lab: [facility] [id number] Performing Lab: [facility] [id number] TROPONIN I, HS <3 <35 Aug 21, 2023 01:36 PM [facility] BASIC METABOLIC PANEL+MG Specimen Type: PLASMA No comment entered. Ordering Provider: STEPH CHAVEZ Report Released Date/Time: Aug 21, 2023 01:11 PM Reporting Lab: [facility] [id number] Performing Lab: [facility] [id number] CREATININE 1.2 mg/dL 0.7-1.2 UREA NITROGEN 23 mg/dL 8-26 GLUCOSE 82 mg/dL 70-100 SODIUM 142 mmol/L 136-145 POTASSIUM 3.7 mmol/L 3.5-5.1 CHLORIDE 105 mmol/L 98-107 CO2 30 mmol/L H 22-29 CALCIUM 8.7 mg/dL 8.4-10.2 MAGNESIUM 1.7 mg/dL 1.6-2.6 ANION GAP 7 mmol/L 5-15 .CREAT EGFR(CKD-EPI ) 63 >60 Aug 21, 2023 01:36 PM [facility] CBC & DIFF Specimen Type: BLOOD Comment: Automated Differential Performed Ordering Provider: STEPH CHAVEZ Report Released Date/Time: Aug 21, 2023 01:11 PM Reporting Lab: [facility] [id number] Performing Lab: [facility] [id number] WBC 6.27 10*3/uL 4.0-11.0 RBC 3.93 10*6/uL [...] 10*3/uL 0-0.1 Aug 21, 2023 01:32 PM [facility] EXTRA GOLD GEL TUBE Specimen Type: SERUM No comment entered. Ordering Provider: STEPH CHAVEZ Report Released Date/Time: Aug 21, 2023 01:36 PM Reporting Lab: [facility] [id number] Performing Lab: [facility] [id number] EXTRA GOLD GEL TUBE RECEIVED Aug 21, 2023 01:32 PM [facility] EXTRA BLUE TUBE Specimen Type: PLASMA No comment entered. Ordering Provider: STEPH CHAVEZ Report Released Date/Time: Aug 21, 2023 01:36 PM Reporting Lab: [facility] [id number] Performing Lab: [facility] [address] EXTRA BLUE TUBE RECEIVED Social History: Smoking [...] 21, 2023 10:30 AM VA-TOBACCO FORMER USER [facility] Tobacco Use History This section includes a history of the smoking, or tobacco-related health factors, that were collected on or before the date of the Encounter. The data comes from the [place] facility where the Encounter took place. Date/Time Smoking Status/Tobacco Use Comment F acility Aug 21, 2023 10:30 AM VA-TOBACCO QUIT 15 YRS OR MORE [facility] Aug 15, 2022 09:00 AM VA-TOBACCO FORMER USER [facility] Aug 15, 2022 09:00 AM VA-TOBACCO QUIT 15 YRS OR MORE [facility] Aug 21, 2021 01:00 PM VA-TOBACCO FORMER USER [facility] Aug 21, 2021 01:00 PM VA-TOBACCO QUIT 15 YRS OR MORE [facility] Jul 09, 2018 08:58 AM VA-TOBACCO FORMER USER [facility] Jul 09, 2018 08:58 AM VA-TOBACCO QUIT 15 YRS OR MORE [facility] Jul 18, 2017 09:58 AM FORMER TOBACCO USER 7Y OR GREATE R [facility] Aug 14, 2016 10:59 AM FORMER TOBACCO USER 7Y OR GREATE R [facility] Jun 29, 2015 02:03 PM FORMER TOBACCO USER 7Y OR KIAH Khan [facility] Jan 06, 2014 03:04 PM FORMER TOBACCO USER 7Y OR KIAH Khan [facility] Jan 04, 2012 08:36 AM FORMER TOBACCO USER 7Y OR KIAH Khan [facility] Radiology Reports: +/- 30 days of the [...] CT C-SPINE W/O (P) : JUAN THOMPSON [id number] -[id number] M Exm Date: AUG 21, 2023@13:29 Req Phys: STEPH CHAVEZ Loc: [facility] EMERGENCY DEPT WALK-IN (Re Img Loc: CT IMAGING Service: Unknown (Case [id number] COMPLETE) CT CERVICAL SPINE W/O CONTRAST (CT Detailed) CPT:50544 Reason for Study: fall hit head Clinical [...] PLASMA .CREAT EGFR(CKD-E 70 Ref: >=60 Allergies: ([place] only) SULFAMETHOXAZOLE (Feb 07, 2022) EMPAGLIFLOZIN (Jun 06, 2022) To see allergies from all [place] locations click Reports tab>Remote Data>All Available Sites>Clinical Reports>Allergies. Report Status: Verified Date Reported: AUG 21, 2023 Date Verified: AUG 21, 2023 Hydropress Operator E-Sig:/ES/OMAIRA LANDERS MD Report: CT CERVICAL SPINE [...] Primary Interpreting Staff: OMAIRA LANDERS MD, RADIOLOGIST (Hydropress Operator) /[facility] OMAIRA LANDERS [facility] Aug 21, 2023 01:[address] HEAD (P): JUAN THOMPSON [id number] -[id number] M Exm Date: AUG 21, 2023@13:28 Req Phys: STEPH CHAVEZ Loc: [facility] EMERGENCY DEPT WALK-IN (Re Img Loc: CT IMAGING Service: Unknown (Case [id number] COMPLETE) CT HEAD/BRAIN W/O CONTRAST (CT Detailed) CPT:13662 Reason for Study: fall hit head Clinical History: [place] IS NOT under investigation for COVID-19 or [...] PLASMA .CREAT EGFR(CKD-E 70 Ref: >=60 Allergies: ([place] only) SULFAMETHOXAZOLE (Feb 07, 2022) EMPAGLIFLOZIN (Jun 06, 2022) To see allergies from all [place] locations click Reports tab>Remote Data>All Available Sites>Clinical Reports>Allergies. Report Status: Verified Date Reported: AUG 21, 2023 Date Verified: AUG 21, 2023 Hydropress Operator E-Sig:/ES/SWATHI STACY MD Report: NONCONTRAST CT OF [...] Primary Interpreting Staff: SWATHI STACY MD, RADIOLOGIST (Hydropress Operator) /SWATHI [facility] Encounter Notes: All associated encounter notes This section contains the clinical notes associated to the Encounter. Date/Time Encounter Note(s) Provider Source Aug 22, 2023 02:18 PM NONVA NOTE: LOCAL TITLE: COMMUNITY CARE-CARE COORDINATION PLAN NOTE STANDARD TITLE: NONVA NOTE DATE OF NOTE: AUG 22, 2023@14:18 ENTRY DATE: AUG 22, 2023@14:18:36 AUTHOR: ADELITA MAIER EXP COSIGNER: URGENCY: STATUS: COMPLETED COMMUNITY CARE-CARE COORDINATION PLAN NOTE Has ADDENDA In reference to Community Care Consult #[[id number]], dated [08/21/23], consult cancelled d/t: A home therapy consult is not indicated as care is covered under the [facility] consult #[[id number]], dated [Mar 06, 2023]. Action needed: Yes PACT to call vendor to verify that they can provide the requested service. PACT to enter nursing text order and fax to agency or provide verbal order directly to agency. If current home care agency is unable to provide the requested service/s, please place a Community Home Health Care Referral-Skilled in order for services to be coordinated with an alternate agency. Thanks. /pablo/ ADELITA MAIER RN skein bander Hemming And Tacking Machine Operator Signed: 08/22/2023 14:20 Receipt Acknowledged By: 08/23/2023 14:44 /pablo/ Brittani Hernandez RN Registered Nurse 08/22/2023 15:16 /pablo/ MARIUSZ PHILLIPS MD PHYSICIAN 08/22/2023 ADDENDUM STATUS: COMPLETED Appreciate PACT CM assistance /aneesh PHILLIPS MD PHYSICIAN Signed: 08/22/2023 15:16 08/23/2023 ADDENDUM STATUS: COMPLETED Called agency x2, no answer. Left detailed message on confidential self- identified voicemail requesting return call to provided direct number. [facility] [address] [place] [address] [address] [place] [address] /pablo/ Brittani Hernandez RN Registered Nurse Signed: 08/23/2023 13:35 08/23/2023 ADDENDUM STATUS: COMPLETED See separate RN note. /aneesh Hernandez RN Registered Nurse Signed: 08/23/2023 14:45 ADELITA MAIER [facility]
--- OUTSIDE RECORDS SUMMARY | 2024-07-08 18:52 | XMS_ITS | Encounter Summary ---
Author Name [facility] [place] [facility] [place] Address [address] [facility] [address] Care Team Providers Care Weight Loss Consultant Name Role Phone MARIUSZ PHILLIPS Primary Care [...] PART A Sep 26, 2012 PART A [id number] [phone] JUAN THOMPSON JR PATIENT MEDICARE (WNR) MEDICARE (M) PART B Sep 26, 2012 PART B [id number] [phone] JUAN THOMPSON JR PATIENT Selected Encounter This section includes the information on record at [place] for the Encounter. Date/Time Encounter Type Encounter Description Reason Provider Source Mar 09, 2024 08:45 AM Outpatient Encounter TELEPHONE/SURGERY ICD-10-CM M16.11 Unilateral primary osteoarthritis, right hip LAVON FIGUEROAC ES A I[facility] Encounter Template Text not used by [place] Assessments - Encounter Diagnoses This section includes the primary and secondary diagnoses documented for the Encounter. Date/Time Primary/Secondary Diagnosis Diagnosis Name Provider Source Mar 09, 2024 08:45 AM PRIMARY Unilateral primary osteoarthritis, right hip LAVON FIGUEROA A [facility] Mar 09, 2024 08:45 AM SECONDARY Bilateral primary osteoarthritis of knee LAVON FIGUEROA A [facility] Plan of Treatment: Future Appointments (+ 6 months) and Future Tests (+/- 45 days) The Plan of Treatment section includes future care activities for the patient from [facility] [place] [facility]. This section includes future appointments and future orders which are active, pending or scheduled. Future Appointments This section includes appointments that were scheduled to occur 6 months from the date of the Encounter, up to a maximum of 20 appointments. The data comes from all [place] treatment facilities. Appointment Date/Time Appointment Type Appointme nt Facility Name Mar 16, 2024 09:00 AM [place]ORY [place]IC[place] [facility] Mar 16, 2024 10:15 AM AMBULATORY - NONE [place] [facility] Mar 27, 2024 07:00 AM AMBULATORY - NONE [place] [facility] Mar 31, 2024 07:00 AM AMB[place]ORY - NONE [place] [facility] Apr 20, 2024 08:00 AM AM[place]ORY - NONE [place] [facility] Apr 20, 2024 09:30 AM [place] [facility] Apr 22, 2024 09:00 AM [place]ORY - NONE [place] [facility] Apr 22, 2024 10:00 AM [place]ORY [place]ICINE [place] [facility] Apr 29, 2024 10:30 AM AMBUL[place]ORY [place] [facility] May 13, 2024 12:00 PM AMBULATORY - NONE [place] [facility] May 13, 2024 01:00 PM [place]ORY [place]ICINE [place] [facility] May 20, 2024 09:45 AM AM[place]ORY - NONE [place] [facility] May 26, 2024 09:15 AM [place]BULATORY - [place]ICINE [place] [facility] Jun 03, 2024 10:00 AM [place]ORY [place]ICINE [place] [facility] Jun 04, 2024 09:30 AM AMB[place] [facility] Jun 05, 2024 01:30 PM [place]ICINE [place] [facility] Jun 12, 2024 07:30 AM AMBULATORY - NONE [place] [facility] Jun 12, 2024 08:30 AM [facility] Jun 23, 2024 10:15 [facility] Jul 06, 2024 08:30 [facility] Active, Pending, and Scheduled Orders This section includes a listing of several types of active, pending, and scheduled orders, including clinic medications orders, diagnostic test orders, procedure orders and consult orders; where the start date of the order is 45 days before the date of the Encounter or 45 days after the date of theEncounter. The data comes from all [place] treatment facilities. Test Date/Time Test Type Test Details Facility Name Mar 18, 2024 05:05 PM Consult Order CARDIAC EC HO OUTPT-ALL SITES Cons [employer] Machine Operator's Choice [facility] Lab Results: +/- 30 days [...] Range Comment Mar 05, 2024 09:55 AM [facility] VITAMIN B-1,BLOOD Specimen Type: BLOOD Comment: Vitamin supplementation within 24 hours prior to blood draw may affect the accuracy of the results. This test was developed and its analytical performance characteristics have been determined by [facility] [place]. It has not been cleared or approved by the U.S. Food and Drug Administration. This assay has been validated pursuant to the CLIA regulations and is used for clinical purposes. Test Performed by [email or web address], [facility] [place], [address] [place] [address] Devante Meyer M.D., Ph.D., Director of Laboratories , CLIA [id number] Ordering Provider: INDERJIT MORGAN Report Released Date/Time: Mar 05, 2024 09:40 AM Reporting Lab: [facility] [address] Performing Lab: [address] VITAMIN B-1,BLOOD 125 nmol/L 78-185 Mar 05, 2024 09:55 AM [facility] VITAMIN A Specimen Type: SERUM Comment: Vitamin supplementation within 24 hours prior to blood draw may affect the accuracy of the results. This test was developed and its analytical performance characteristics have been determined by [facility] [place]. It has not been cleared or approved by the U.S. Food and Drug Administration. This assay has been validated pursuant to the CLIA regulations and is used for clinical purposes. Test Performed by [email or web address] [place], [address] [place] [address] Devante Meyer M.D., Ph.D., Director of Laboratories , CLIA [id number] Ordering Provider: INDERJIT MORGAN Report Released Date/Time: Mar 05, 2024 09:40 AM Reporting Lab: [place] [id number] Performing Lab: [address] VITAMIN A 54 ug/dL 38-98 Mar 05, 2024 09:55 AM [facility] ZINC Specimen Type: SERUM Comment: This test was developed and its analytical performance characteristics have been determined by [facility] [place]. It has not been cleared or approved by the U.S. Food and Drug Administration. This assay has been validated pursuant to the CLIA regulations and is used for clinical purposes. Test Performed by [email or web address], [address] [place] [address] Devante Meyer M.D., Ph.D., Director of Laboratories , CLIA [id number] Ordering Provider: INDERJIT MORGAN Report Released Date/Time: Mar 05, 2024 09:40 AM Reporting Lab: [facility] [address] Performing Lab: [address] ZINC 96 ug/dL 60-130 Mar 05, 2024 09:55 AM [facility] COPPER Specimen Type: PLASMA Comment: This test was developed and its analytical performance characteristics have been determined by [facility] [place]. It has not been cleared or approved by the U.S. Food and Drug Administration. This assay has been validated pursuant to the CLIA regulations and is used for clinical purposes. Test Performed by [email or web address], [facility], [address] [place] [address] Devante Meyer M.D., Ph.D., Director of Laboratories , CLIA [id number] Ordering Provider: INDERJIT MORGAN Report Released Date/Time: Mar 05, 2024 09:40 AM Reporting Lab: [facility] [address] Performing Lab: [facility] [id number] [place] [address] COPPER 99 ug/dL 70-175 Mar 05, 2024 09:55 AM [facility] TSH W/REFLEX TO FREE T4 Specimen Type: PLASMA No comment entered. Ordering Provider: INDERJIT MORGAN Report Released Date/Time: Mar 05, 2024 09:40 AM Reporting Lab: [facility] [address] Performing Lab: [facility] [address] TSH 2.01 u[IU]/mL 0.35-4.94 Mar 05, 2024 09:55 AM [facility] FERRITIN Specimen Type: SERUM No comment entered. Ordering Provider: INDERJIT MORGAN Report Released Date/Time: Mar 05, 2024 09:40 AM Reporting Lab: [facility] [address] Performing Lab: [facility] [address] FERRITIN 191.6 ng/mL 21.8-274.7 Mar 05, 2024 09:55 AM [facility] B 12 Specimen Type: PLASMA No comment entered. Ordering Provider: INDERJIT MORGAN Report Released Date/Time: Mar 05, 2024 09:40 AM Reporting Lab: [facility] [address] Performing Lab: [facility] [address] B 12 864 pg/mL H 213-816 Mar 05, 2024 09:55 AM [facility] PRE-ALBUMIN Specimen Type: SERUM No comment entered. Ordering Provider: INDERJIT MORGAN Report Released Date/Time: Mar 05, 2024 09:40 AM Reporting Lab: [facility] [address] Performing Lab: [facility] [address] PRE-ALBUMIN 19.9 mg/dL 14.0-45.0 Mar 05, 2024 09:55 AM [facility] LIPID PANEL,NON-FASTING Specimen Type: PLASMA No comment entered. Ordering Provider: INDERJIT MORGAN Report Released Date/Time: Mar 05, 2024 09:40 AM Reporting Lab: [facility] [address] Performing Lab: [facility] [address] CHOLESTEROL 111 mg/dL <199 .HDL 45 mg/dL >40 LDL CALCULATION 54 mg/dL <99 VLDL CALCULATION 12 mg/dL <29 NON HDL CHOLESTEROL 66 mg/dL <129 TRIG(NON FASTING) 60 mg/dL <149 Mar 05, 2024 09:55 AM [facility] FOLATE Specimen Type: SERUM No comment entered. Ordering Provider: INDERJIT MORGAN Report Released Date/Time: Mar 05, 2024 09:40 AM Reporting Lab: [facility] [address] Performing Lab: [facility] [address] FOLATE 14.5 ng/mL >7.0 Mar 05, 2024 09:55 AM [facility] COMPREHENSIVE METABOLIC PANEL+MG Specimen Type: PLASMA No comment entered. Ordering Provider: INDERJIT MORGAN Report Released Date/Time: Mar 05, 2024 09:40 AM Reporting Lab: [facility] [address] Performing Lab: [facility] [address] CREATININE 1.1 mg/dL 0.7-1.2 UREA NITROGEN 19 [...] 70 >60 Mar 05, 2024 09:55 AM [facility] VIT D 25-OH,TOTAL Specimen Type: SERUM No comment entered. Ordering Provider: INDERJIT MORGAN Report Released Date/Time: Mar 05, 2024 09:40 AM Reporting Lab: [facility] [address] Performing Lab: [facility] [address] VIT D 25-OH,TOTAL 71 ng/mL H 12-50 Mar 05, 2024 09:55 AM [facility] CALCIUM Specimen Type: PLASMA No comment entered. Ordering Provider: INDERJIT MORGAN Report Released Date/Time: Mar 05, 2024 09:40 AM Reporting Lab: [facility] [address] Performing Lab: [facility] [address] CALCIUM 9.6 mg/dL 8.4-10.2 Mar 05, 2024 09:55 AM [facility] MAGNESIUM Specimen Type: PLASMA No comment entered. Ordering Provider: INDERJIT MORGAN Report Released Date/Time: Mar 05, 2024 09:40 AM Reporting Lab: [facility] [address] Performing Lab: [facility] [address] MAGNESIUM 1.4 mg/dL L 1.6-2.6 Mar 05, 2024 09:55 AM [facility] CBC & DIFF Specimen Type: BLOOD Comment: Automated Differential Performed Ordering Provider: INDERJIT MORGAN Report Released Date/Time: Mar 05, 2024 09:40 AM Reporting Lab: [facility] [address] Performing Lab: [facility] [address] WBC 6.85 10*3/uL 4.0-11.0 RBC 4.20 10*6/uL [...] 10*3/uL 0-0.1 Mar 05, 2024 09:55 AM [facility] PTH-N-TACT Specimen Type: SERUM No comment entered. Ordering Provider: INDERJIT MORGAN Report Released Date/Time: Mar 05, 2024 09:40 AM Reporting Lab: [facility] [address] Performing Lab: [facility] [address] PTH-N-TACT 26.5 pg/mL 8.7-77.1 Mar 05, 2024 09:55 AM [facility] IRON GROUP Specimen Type: SERUM No comment entered. Ordering Provider: INDERJIT MORGAN Report Released Date/Time: Mar 05, 2024 09:40 AM Reporting Lab: [facility] [address] Performing Lab: [facility] [address] IRON 59 ug/dL L 65-175 TIBC,CALCULATE D 258 ug/dL 250-425 FERRITIN 191.6 ng/mL 21.8-274.7 IRON SATURATION 23 20-50 TRANSFERRIN 206 mg/dL 163-382 Mar 05, 2024 09:54 AM [facility] VITAMIN A Specimen Type: SERUM Comment: Vitamin supplementation within 24 hours prior to blood draw may affect the accuracy of the results. This test was developed and its analytical performance characteristics have been determined by [facility] [place]. It has not been cleared or approved by the U.S. Food and Drug Administration. This assay has been validated pursuant to the CLIA regulations and is used for clinical purposes. Test Performed by [email or web address], [facility], [address] [place] [address] Devante Meyer M.D., Ph.D., Director of Laboratories , CLIA [id number] Ordering Provider: INDERJIT MORGAN Report Released Date/Time: Mar 05, 2024 09:40 AM Reporting Lab: [facility] [address] Performing Lab: [address] VITAMIN A 54 ug/dL 38-98 Mar 05, 2024 07:35 AM [facility] HEMOGLOBIN A1C Specimen Type: BLOOD [...] Nov 07, 2023 10:56 AM Reporting Lab: [facility] [address] Performing Lab: [facility] [address] HEMOGLOBIN A1C 6.6 H 4.0-6.0 Social History: [...] 21, 2023 10:30 AM [place]-[facility]BAC[place] FORMER USER [facility] Tobacco [...] 15 YRS OR MORE [facility] Aug 15, 2022 09:00 AM VA-TOBACCO FORMER USER [facility] Aug 15, 2022 09:00 AM [place]ACCO [...] USER 7Y OR GREATE R [facility] Radiology Reports: +/- 30 days of [...] the Encounter. The data comes from all [facility] facilities. Date/Time Radiology Report Provider Source Mar 16, 2024 10:09 AM HIP LEFT 2 VIEWS W /PELVIS: JUAN THOMPSON [id number] -[id number] M Ex Date: MAR 16, 2024@10:09 Req Phys: DUONG FIELDS Pat Loc: [facility] APACT A RES 05 WH 4F (Req' Img Loc: MAIN X-RAY Service: [place] [address] (Case [id number] COMPLETE) HIP LEFT 2 VIEWS W/PELVIS (RAD Detailed) CPT:61729 Proc Modifiers : LEFT Reason for Study: mechanical fall 3 days ago Clinical History: [place] IS NOT under investigation for COVID-19 or is COVID-19 negative mechanical fall three days ago, rule out fracture. 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 FINDINGS: [...] hip joint OA. READING PHYSICIAN: Jere Johnson -[phone] 03/16/2024 14:24 CDT [facility] National Teleradiology Program [phone] (For Medical Practitioner Use Only) Attention Patients / Veterans: If you have questions or concerns about these test results, please contact your ordering provider or primary care team. Primary Interpreting Staff: RADIOLOGY,OUTSIDE SERVICE, Staff Physician / RADIOLOGY,OUTSIDE SERVICE [facility] Encounter Notes: All associated encounter notes This section contains the clinical notes associated to the Encounter. Date/Time Encounter Note(s) Provider Source Mar 09, 2024 08:24 AM ORTHOPEDIC SURGERY ATTENDING NOTE: LOCAL TITLE: ORTHOPEDIC CLINIC NOTE STANDARD TITLE: ORTHOPEDIC SURGERY ATTENDING NOTE DATE OF NOTE: MAR 09, 2024@08:24 ENTRY DATE: MAR 09, 2024@08:25:31 AUTHOR: PATITO FIGUEROA COSIGNER: URGENCY: STATUS: COMPLETED SUBJECT: Orthopedic Clinic Note Called Mr. Thompson to discuss the results of the lumbar x-rayand discuss further treatment. No answer but left voicemail for patient to call back at [phone] to re-schedule his apppointment. /pablo/ PATITO FIGUEROA MD STAFF SURGEON Signed: 03/09/2024 08:30 PATITO FIGUEROA [facility]
--- OUTSIDE RECORDS SUMMARY | 2024-07-08 18:54 | XMS_ITS | Encounter Summary ---
Author Name [facility] Organization [facility] Address [address] [place] [address] Care Team Providers Care Chart Calculator Name Role Phone MARIUSZ PHILLIPS Primary Care [...] PART A Sep 26, 2012 PART A [id number] [phone] JUAN THOMPSON JR PATIENT MEDICARE (WNR) MEDICARE (M) PART B Sep 26, 2012 PART B [id number] [phone] JUAN THOMPSON JR PATIENT Selected Encounter This section includes the information on record at NH for the Encounter. Date/Time Encounter Type Encounter Description Reason Provider Source Mar 10, 2024 11:14 AM Outpatient Encounter TELEPHONE TRIAGE JUDSON,RAMIREZ A IHE Encounter Template Text not used by [facility] Plan of Treatment: Future Appointments (+ 6 months) and Future Tests (+/- 45 days) The Plan of Treatment section includes future [facility] the [facility] This section includes future appointments and [...] 09:00 AM AMBULATORY - [place]ICINE [place] [facility] Mar 16, 2024 10:15 AM AMBULATORY - NONE [place] [facility] Mar 27, 2024 07:00 AM AMBULATORY - NONE [place] [facility] Mar 31, 2024 07:00 AM AMBULATORY - NONE [place] [facility] Apr 20, 2024 08:00 AM AMBULATORY - NONE [place] [facility] Apr 20, 2024 09:30 AM AMB[place] [facility] Apr 22, 2024 09:00 AM AMBULATORY - NONE [place] [facility] Apr 22, 2024 10:00 AM AMBULATORY - MEDICINE [place] [facility] Apr 29, 2024 10:30 AM AMBULATORY - SURGERY [place] [facility] May 13, 2024 12:00 PM AMBULATORY - NONE [place] [facility] May 13, 2024 01:00 PM AMBULATORY - MEDICINE [place] [facility] May 20, 2024 09:45 AM AMBULATORY - NONE [place] [facility] May 26, 2024 09:15 AM AMBULATORY - MEDICINE [place] [facility] Jun 03, 2024 10:00 AM AMBULATORY - [place]ICINE [place] [facility] Jun 04, 2024 09:30 AM AMBUL[place] [facility] Jun 05, 2024 01:30 PM AMBULATORY - MEDICINE [place] [facility] Jun 12, 2024 07:30 AM AM[place]ORY - NONE [place] [facility] Jun 12, 2024 08:30 AM AMBULATORY - MEDICINE [place] [facility] Jun 23, 2024 10:15 AM AMBULATORY - MEDICINE [place] [facility] Jul 06, 2024 08:30 AM AMBULATORY - NONE [place] [facility] Active, Pending, and Scheduled Orders This section includes a listing of several types of active, pending, and scheduled orders, including clinic medications orders, diagnostic test orders, procedure orders and consult orders; where the start date of the order is 45 days before the date of the Encounter or 45 days after the date of theEncounter. The data comes from all [place] treatment facilities. Test Date/Time Test Type Test Details Facility Name Mar 18, 2024 05:05 PM Consult Order CARDIAC EC HO OUTPT-ALL SITES Cons Financial Coach's Choice [facility] Lab Results: +/- 30 days [...] Range Comment Mar 05, 2024 09:55 AM [facility] VITAMIN B-1,BLOOD Specimen Type: BLOOD Comment: Vitamin supplementation within 24 hours prior to blood draw may affect the accuracy of the results. This test was developed and its analytical performance characteristics have been determined by [employer] [place], [place]. It has not been cleared or approved by the U.S. Food and Drug Administration. This assay has been validated pursuant to the CLIA regulations and is used for clinical purposes. Test Performed by [employer], [employer] [place], [address] [place] [address] Devante Meyer M.D., Ph.D., Director of Laboratories , CLIA [id number] Ordering Provider: INDERJIT MORGAN Report Released Date/Time: Mar 05, 2024 09:40 AM Reporting Lab: [facility] [address] Performing Lab: [address] VITAMIN B-1,BLOOD 125 nmol/L 78-185 Mar 05, 2024 09:55 AM [facility] VITAMIN A Specimen Type: SERUM Comment: Vitamin supplementation within 24 hours prior to blood draw may affect the accuracy of the results. This test was developed and its analytical performance characteristics have been determined by [employer] [place], [place]. It has not been cleared or approved by the U.S. Food and Drug Administration. This assay has been validated pursuant to the CLIA regulations and is used for clinical purposes. Test Performed by [employer], [employer] [place], [address] [place] [address] Devante Meyer M.D., Ph.D., Director of Laboratories , CLIA [id number] Ordering Provider: INDERJIT MORGAN Report Released Date/Time: Mar 05, 2024 09:40 AM Reporting Lab: [facility] [id number] Performing Lab: [address] VITAMIN A 54 ug/dL 38-98 Mar 05, 2024 09:55 AM [facility] ZINC Specimen Type: SERUM Comment: This test was developed and its analytical performance characteristics have been determined by [employer] [place], [place]. It has not been cleared or approved by the U.S. Food and Drug Administration. This assay has been validated pursuant to the CLIA regulations and is used for clinical purposes. Test Performed by [employer] [facility] [employer] [place], [address] [place] [address] Devante Meyer M.D., Ph.D., Director of Laboratories , CLIA [id number] Ordering Provider: INDERJIT MORGAN Report Released Date/Time: Mar 05, 2024 09:40 AM Reporting Lab: [facility] [id number] Performing Lab: [address] ZINC 96 ug/dL 60-130 Mar 05, 2024 09:55 AM [facility] COPPER Specimen Type: PLASMA Comment: This test was developed and its analytical performance characteristics have been determined by [employer] [place], [place]. It has not been cleared or approved by the U.S. Food and Drug Administration. This assay has been validated pursuant to the CLIA regulations and is used for clinical purposes. Test Performed by [employer] [place], [address] [place] [address] Devante Meyer M.D., Ph.D., Director of Laboratories , [facility] [id number] Ordering Provider: INDERJIT MORGAN Report Released Date/Time: Mar 05, 2024 09:40 AM Reporting Lab: [facility] [id number] Performing Lab: [facility] [address] [facility] [address] COPPER 99 ug/dL 70-175 Mar 05, 2024 09:55 AM [facility] TSH W/REFLEX TO FREE T4 Specimen Type: PLASMA No comment entered. Ordering Provider: INDERJIT MORGAN Report Released Date/Time: Mar 05, 2024 09:40 AM Reporting Lab: [facility] [id number] Performing Lab: [facility] [address] TSH 2.01 u[IU]/mL 0.35-4.94 Mar 05, 2024 09:55 AM [facility] FERRITIN Specimen Type: SERUM No comment entered. Ordering Provider: INDERJIT MORGAN Report Released Date/Time: Mar 05, 2024 09:40 AM Reporting Lab: [facility] [address] Performing Lab: [facility] [address] FERRITIN 191.6 ng/mL 21.8-274.7 Mar 05, 2024 09:55 AM [facility] B 12 Specimen Type: PLASMA No comment entered. Ordering Provider: INDERJIT MORGAN Report Released Date/Time: Mar 05, 2024 09:40 AM Reporting Lab: [facility] [address] Performing Lab: [facility] [address] B 12 864 pg/mL H 213-816 Mar 05, 2024 09:55 AM [facility] PRE-ALBUMIN Specimen Type: SERUM No comment entered. Ordering Provider: INDERJIT MORGAN Report Released Date/Time: Mar 05, 2024 09:40 AM Reporting Lab: [facility] [address] Performing Lab: [facility] [address] PRE-ALBUMIN 19.9 mg/dL 14.0-45.0 Mar 05, 2024 09:55 AM [facility] LIPID PANEL,NON-FASTING Specimen Type: PLASMA No comment entered. Ordering Provider: INDERJIT MORGAN Report Released Date/Time: Mar 05, 2024 09:40 AM Reporting Lab: [facility] [address] Performing Lab: [facility] [address] CHOLESTEROL 111 mg/dL <199 .HDL 45 mg/dL >40 LDL CALCULATION 54 mg/dL <99 VLDL CALCULATION 12 mg/dL <29 NON HDL CHOLESTEROL 66 mg/dL <129 TRIG(NON FASTING) 60 mg/dL <149 Mar 05, 2024 09:55 AM [facility] FOLATE Specimen Type: SERUM No comment entered. Ordering Provider: INDERJIT MORGAN Report Released Date/Time: Mar 05, 2024 09:40 AM Reporting Lab: [facility] [address] Performing Lab: [facility] [address] FOLATE 14.5 ng/mL >7.0 Mar 05, 2024 09:55 AM [facility] VIT D 25-OH,TOTAL Specimen Type: SERUM No comment entered. Ordering Provider: INDERJIT MORGAN Report Released Date/Time: Mar 05, 2024 09:40 AM Reporting Lab: [facility] [address] Performing Lab: [facility] [address] VIT D 25-OH,TOTAL 71 ng/mL H 12-50 Mar 05, 2024 09:55 AM [facility] COMPREHENSIVE METABOLIC PANEL+MG Specimen Type: PLASMA No comment entered. Ordering Provider: INDERJIT MORGAN Report Released Date/Time: Mar 05, 2024 09:40 AM Reporting Lab: [facility] [address] Performing Lab: [facility] [address] CREATININE 1.1 mg/dL 0.7-1.2 UREA NITROGEN 19 [...] 70 >60 Mar 05, 2024 09:55 AM [facility] CBC & DIFF Specimen Type: BLOOD Comment: Automated Differential Performed Ordering Provider: INDERJIT MORGAN Report Released Date/Time: Mar 05, 2024 09:40 AM Reporting Lab: [facility] [address] Performing Lab: [facility] [address] WBC 6.85 10*3/uL 4.0-11.0 RBC 4.20 10*6/uL [...] 10*3/uL 0-0.1 Mar 05, 2024 09:55 AM [facility] MAGNESIUM Specimen Type: PLASMA No comment entered. Ordering Provider: INDERJIT MORGAN Report Released Date/Time: Mar 05, 2024 09:40 AM Reporting Lab: [facility] [address] Performing Lab: [facility] [address] MAGNESIUM 1.4 mg/dL L 1.6-2.6 Mar 05, 2024 09:55 AM [facility] CALCIUM Specimen Type: PLASMA No comment entered. Ordering Provider: INDERJIT MORGAN Report Released Date/Time: Mar 05, 2024 09:40 AM Reporting Lab: [facility] [address] Performing Lab: [facility] [address] CALCIUM 9.6 mg/dL 8.4-10.2 Mar 05, 2024 09:55 AM [facility] IRON GROUP Specimen Type: SERUM No comment entered. Ordering Provider: INDERJIT MORGAN Report Released Date/Time: Mar 05, 2024 09:40 AM Reporting Lab: [facility] [address] Performing Lab: [facility] [address] IRON 59 ug/dL L 65-175 TIBC,CALCULATE D 258 ug/dL 250-425 FERRITIN 191.6 ng/mL 21.8-274.7 IRON SATURATION 23 20-50 TRANSFERRIN 206 mg/dL 163-382 Mar 05, 2024 09:55 AM [facility] PTH-N-TACT Specimen Type: SERUM No comment entered. Ordering Provider: INDERJIT MORGAN Report Released Date/Time: Mar 05, 2024 09:40 AM Reporting Lab: [facility] [address] Performing Lab: [facility] [address] PTH-N-TACT 26.5 pg/mL 8.7-77.1 Mar 05, 2024 09:54 AM [facility] VITAMIN A Specimen Type: SERUM Comment: Vitamin supplementation within 24 hours prior to blood draw may affect the accuracy of the results. This test was developed and its analytical performance characteristics have been determined by [employer] [place]. It has not been cleared or approved by the U.S. Food and Drug Administration. This assay has been validated pursuant to the CLIA regulations and is used for clinical purposes. Test Performed by [employer], [employer] [facility], [address] [place], [place] Devante Meyer M.D., Ph.D., Director of Laboratories , [facility] [id number] Ordering Provider: INDERJIT MORGAN Report Released Date/Time: Mar 05, 2024 09:40 AM Reporting Lab: [facility] [address] Performing Lab: [address] VITAMIN A 54 ug/dL 38-98 Mar 05, 2024 07:35 AM [facility] HEMOGLOBIN A1C Specimen Type: BLOOD [...] Nov 07, 2023 10:56 AM Reporting Lab: [facility] [address] Performing Lab: [facility] [address] HEMOGLOBIN A1C 6.6 H 4.0-6.0 Social History: [...] 21, 2023 10:30 AM VA-TOBACCO FORMER USER [facility] Tobacco Use History This section includes a history of the smoking, or tobacco-related health factors, that were collected on or before the date of the Encounter. The data comes from the [place] facility where the Encounter took place. Date/Time Smoking Status/Tobacco Use Comment [facility] Aug 21, 2023 10:30 AM VA-TOBACCO QUIT 15 YRS OR MORE [facility] Aug 15, 2022 09:00 AM VA-TOBACCO FORMER USER [facility] Aug 15, 2022 09:00 AM VA-TOBACCO QUIT 15 YRS OR MORE [facility] Aug 21, 2021 01:00 PM VA-TOBACCO FORMER USER [facility] Aug 21, 2021 01:00 PM VA-TOBACCO QUIT 15 YRS OR MORE [facility] Jul 09, 2018 08:58 AM VA-TOBACCO FORMER USER [facility] Jul 09, 2018 08:58 AM VA-TOBACCO QUIT 15 YRS OR MORE [facility] Jul 18, 2017 09:58 AM FORMER TOBACCO USER 7Y OR GREATE R [facility] Aug 14, 2016 10:59 AM FORMER TOBACCO USER 7Y OR GREATE R [facility] Jun 29, 2015 02:03 PM FORMER TOBACCO USER 7Y OR GREATE R [facility] Jan 06, 2014 03:04 PM FORMER TOBACCO USER 7Y OR GREATE R [facility] Jan 04, 2012 08:36 AM FORMER TOBACCO USER 7Y OR GREATE R [facility] Radiology Reports: +/- 30 days [...] LEFT 2 VIEWS W /PELVIS: JUAN THOMPSON [id number] -1945 M Exm Date: MAR 16, 2024@10:09 Req Phys: DUONG FIELDS Pat Loc: [facility] APACT A RES 05 WH 4F (Req' Img Loc: MAIN X-RAY Service: [place] [address] (Case [id number] COMPLETE) HIP LEFT 2 VIEWS W/PELVIS (RAD Detailed) CPT:85241 Proc Modifiers : LEFT Reason for Study: mechanical fall 3 days ago Clinical History: [place] IS NOT under investigation for COVID-19 or is COVID-19 negative mechanical fall three days ago, rule out fracture. 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 FINDINGS: [...] hip joint OA. READING PHYSICIAN: Jere Johnson -[phone] 03/16/2024 14:24 CDT [facility] National Teleradiology Program [phone] (For Medical Practitioner Use Only) Attention Patients / Veterans: If you have questions or concerns about these test results, please contact your ordering provider or primary care team. Primary Interpreting Staff: RADIOLOGY,OUTSIDE SERVICE, Staff Physician / RADIOLOGY,OUTSIDE SERVICE [facility] Encounter Notes: All associated encounter notes This section contains the clinical notes associated to the Encounter. Date/Time Encounter Note(s) Provider Source Mar 10, 2024 11:14 AM RN PROGRESS NOTE: LOCAL TITLE: CCC: CLINICAL TRIAGE STANDARD TITLE: RN PROGRESS NOTE DATE OF NOTE: MAR 10, 2024@11:14:45 ENTRY DATE: MAR 10, 2024@11:14:45 AUTHOR: RAMIREZ ROPER COSIGNER: URGENCY: STATUS: COMPLETED Patient Demographics Patient Name: JUAN THOMPSON Patient Primary [address]: [address] [place] [id number] Patient Primary Phone: [phone] Patient : 1945 Patient Age: 78 Caller/Recipient Relation to Patient: Self Emergency Contact: SIRIA THOMPSON Triage Summary Conducted triage/discussed symptoms Utilized the Triage Tool: Yes Chief Complaint: Hip Pain (one hip) System WHEN: Within 3 Days Nurse's Recommendation / WHEN: Other Nurse's Other / WHEN: Within 7 days System WHERE: Clinic Nurse's Recommendation / [facility] Patient Disposition Patient/Caregiver agrees to plan of care: Yes Nursing Plan and Disposition Referred Patient for In-Person Appt Transferred patient to Sched & Admin-Apt Nurse Summary Nurse Summary: PATIENT CONCERN/DURATION/ONSET: Paradise calls with concerns of L hip pain over the past 6 months. states, ''I feel the pain in my thigh. There is an area that is tender to the touch. My leg does feel weak d/t the pain. Currently the pain is a 7/10 but the pain can get as high as a 9/10.'' -[place] denies recent injury, redness, swelling, fever/chills, changes in bowel/bladder habits, or numbness/tingling. -[employer] informed the to call back if his symptoms become worse and to be evaluated at the ER if he is unable to bear-weight on his leg, develops any redness with streaks, develops fever/chills, or if he develops changes in bowel/bladder habits. states he understood. WHAT HAS PATIENT TRIED TO TREAT THE SYMPTOMS: Paradise has been applying Lidocaine patches and does get some relief. [place] states he also has been applying Diclofenac gel and does not get any relief with his hip pain. HISTORY/PREVIOUS TREATMENT: Denies similar in the past. WHAT IS PATIENT GOAL FOR THE CALL: Appointment with PACT Was Virtual Care Visit considered (TELE or VVC): No, per SOP TRANSPORTATION DIRECTOR DISPOSITION: Recommended triage is evaluation within >3 -<7 days with PCP secondary to duration of symptoms and states the pain has been getting worse. Seth agrees with plan. Appointment scheduled for 03/16/2024 at 09:00. Advised patient to call back immediately/seek emergency care if any of the signs or symptoms noted above worsen. Best contact for seth is (Verified). This note was created by a [address] [employer] disability examiner. Please do not alert this nurse by adding as a signer for future communications. Alerts are not monitored by this user, please reach out to [place] [facility] instead if indicated. Clinical Contact Center Codes Clinic/Location: V23 [facility] PHONE CCC RN Decision Support System Output: Triage Complete Triage Date: 03/10/2024, 11:03 AM Triage Note: Decision Support Tool Used: [facility] Phone Triage Sat, 10 Mar 2024 15:55:48 +0000 [facility] Demographics 78 y/o Male Results CC: Hip Pain (one hip) Software suggested: Within 3 Days Software suggested follow-up location: Clinic, consider [facility] care Values and Measures Duration of CC: 6 Months Positive Responses HPI: hip pain, duration longer than 1 week HPI: hip pain, duration longer than 2 hours HPI: hip pain, moderate to severe HPI: hip pain, worsening PMH: osteoarthritis VS: temperature not taken Negative Responses Denies: HPI: hip injury, within past 2 days Denies: HPI: hip pain, severe Denies: HPI: leg swelling, localized below the painful hip Denies: HPI: lymph node pain, lymph node swelling, inguinal Denies: HPI: red streaks, from a spot on the hip Denies: HPI: skin erythema, hip Denies: HPI: skin lump, swollen, painful, over the hip or thigh Denies: PMH: rheumatoid arthritis Denies: PMH: systemic lupus erythematosus Denies: PSH: hip surgery, within past 4 weeks Education Verbal Education Provided for: Hip Pain Home Care Education Log Home care for hip pain includes: Avoid activities that cause hip pain. Apply cold compresses: Wrap ice in a moist hand towel. Do not apply ice directly to the skin. Apply for 20-30 minutes, every 4 hours, for the first few days. Apply warm compresses: Apply for 20-30 minutes, every 4 hours. Rest the hip: Use a walker. Use crutches. Use a cane. Take prescribed medications as directed: Don't skip doses of your medication. This makes them less effective. Be aware of the common side effects that may be caused by your medication. Perform hip stretching exercises. Apply nonprescription pain rubs: Ask your pharmacist. Ask your provider if you can take acetaminophen for pain. Ask your provider if you can take nonprescription nonsteroidal anti-inflammatory medications for pain: Ibuprofen Naproxen Notify your provider if you have hip pain and any of the following: Inability to move the hip joint Inability to walk Leg swelling (unilateral) Leg weakness (unilateral) Leg numbness (unilateral) Redness of the skin over the hip Fever over 101 degrees F (38.3 C) Worsening hip pain Worsening knee pain Worsening hip swelling [id number] [employer] /es/ RAMIREZ ROPER RN VISN23 [facility] Signed: 03/10/2024 11:14 RAMIREZ ROPER [facility]
--- OUTSIDE RECORDS SUMMARY | 2024-07-08 18:56 | XMS_ITS | Encounter Summary ---
Author Name [facility] [place] [facility] [place] Address [address] [place] [address] Care Team Providers Care Rental Car Ferry Driver Name Role Phone MARIUSZ PHILLIPS Primary [...] PART A Sep 26, 2012 PART A [id number] [phone] JUAN THOMPSON JR PATIENT MEDICARE (WNR) MEDICARE (M) PART B Sep 26, 2012 PART B [id number] [phone] JUAN THOMPSON JR PATIENT Selected Encounter This section includes the information on record at [place] for the Encounter. Date/Time Encounter Type Encounter Description Reason Pro vider Source Mar 16, 2024 10:38 AM Outpatient Encounter ORTHO/JOINT SURG IHE Encounter Template Text not used by [place] Plan of Treatment: Future Appointments (+ 6 months) and Future Tests (+/- 45 days) The Plan of Treatment section includes future care activities for the [facility] This section includes future appointments and future orders which are active, pending or scheduled. Future Appointments This section includes appointments that were scheduled to occur 6 months from the date of the Encounter, up to a maximum of 20 appointments. The data comes from all [place] treatment facilities. Appointment Date/Time Appointment Type Appointme nt Facility Name Mar 27, 2024 07:00 AM AMB[facility]ATORY - NONE [facility] Mar 31, 2024 07:00 AM AMBULATORY - NONE [facility] Apr 20, 2024 08:00 AM AM[facility]ORY [facility] NONE [facility] Apr 20, 2024 09:30 AM [facility] [place] [facility] Apr 22, 2024 09:00 AM AMBULATORY - NONE [facility] Apr 22, 2024 10:00 AM [place] [place]ICINE [facility] Apr 29, 2024 10:30 AM [facility] [place] [facility] May 13, 2024 12:00 PM AMBULATORY - NONE [facility] May 13, 2024 01:00 PM AM[facility]ORY [place] [facility]ICINE [facility] May 20, 2024 09:45 AM AMBULATORY - NONE [facility] May 26, 2024 09:15 AM [facility]ORY [place]ICINE [facility] [facility] Jun 03, 2024 10:00 AM [facility]ORY [place] [facility]ICINE [facility] Jun 04, 2024 09:30 AM AMBUL[facility]ORY [place] [facility] Jun 05, 2024 01:30 PM [facility]ORY - MEDICINE [facility] Jun 12, 2024 07:30 AM AMBULATORY - NONE [facility] Jun 12, 2024 08:30 AM [facility]ORY [place] MEDICINE [facility] [facility] Jun 23, 2024 10:15 AM AMBUL[facility]ORY - MEDICINE [facility] [facility] Jul 06, 2024 08:30 AM AMBULATORY - NONE [facility] Jul 08, 2024 11:07 AM AMBULATORY - NONE [facility] Jul 16, 2024 07:30 AM AMBULATORY - MEDICINE [facility] Active, Pending, and Scheduled Orders This section includes a listing of several types of active, pending, and scheduled orders, including clinic medications orders, diagnostic test orders, procedure orders and consult orders; where the start date of the order is 45 days before the date of the Encounter or 45 days after the date of theEncounter. The data comes from all [place] treatment facilities. Test Date/Time Test Type Test Details Facility Name Mar 18, 2024 05:05 PM Consult Order CARDIAC EC HO OUTPT-ALL SITES Cons Grades 7 8 Tutor's Choice [facility] Lab Results: +/- 30 days of [...] Range Comment Mar 05, 2024 09:55 AM [facility] VITAMIN B-1,BLOOD Specimen Type: BLOOD Comment: Vitamin supplementation within 24 hours prior to blood draw may affect the accuracy of the results. This test was developed and its analytical performance characteristics have been determined by [employer] [place], [place]. It has not been cleared or approved by the U.S. Food and Drug Administration. This assay has been validated pursuant to the CLIA regulations and is used for clinical purposes. Test Performed by [employer], [employer] [place], [address] [place] [address] Devante Meyer M.D., Ph.D., Director of Laboratories , CLIA [id number] Ordering Provider: INDERJIT MORGAN Report Released Date/Time: Mar 05, 2024 09:40 AM Reporting Lab: [facility] [id number] Performing Lab: [address] VITAMIN B-1,BLOOD 125 nmol/L 78-185 Mar 05, 2024 09:55 AM [facility] VITAMIN A Specimen Type: SERUM Comment: Vitamin supplementation within 24 hours prior to blood draw may affect the accuracy of the results. This test was developed and its analytical performance characteristics have been determined by [employer] [place], [place]. It has not been cleared or approved by the U.S. Food and Drug Administration. This assay has been validated pursuant to the CLIA regulations and is used for clinical purposes. Test Performed by [facility], [employer] [place], [address] [place] [address] Devante Meyer M.D., Ph.D., Director of Laboratories , CLIA [id number] Ordering Provider: INDERJIT MORGAN Report Released Date/Time: Mar 05, 2024 09:40 AM Reporting Lab: [facility] [phone] Performing Lab: [address] VITAMIN A 54 ug/dL 38-98 Mar 05, 2024 09:55 AM [facility] ZINC Specimen Type: SERUM Comment: This test was developed and its analytical performance characteristics have been determined by [employer] [place], [place]. It has not been cleared or approved by the U.S. Food and Drug Administration. This assay has been validated pursuant to the CLIA regulations and is used for clinical purposes. Test [facility] by [facility] [employer] [place], [address] [place] [address] Devante Meyer M.D., Ph.D., Director of Laboratories , CLIA [id number] Ordering Provider: INDERJIT MORGAN Report Released Date/Time: Mar 05, 2024 09:40 AM Reporting Lab: [facility] [phone] Performing Lab: [address] ZINC 96 ug/dL 60-130 Mar 05, 2024 09:55 AM [facility] COPPER Specimen Type: PLASMA Comment: This test was developed and its analytical performance characteristics have been determined by [employer] [place], [place]. It has not been cleared or approved by the U.S. Food and Drug Administration. This assay has been validated pursuant to the CLIA regulations and is used for clinical purposes. Test Performed by [employer] [place], [address] [place] [address] Devante Meyer M.D., Ph.D., Director of Laboratories , [facility] [id number] Ordering Provider: INDERJIT MORGAN Report Released Date/Time: Mar 05, 2024 09:40 AM Reporting Lab: [facility] [id number] Performing Lab: [facility] [address] [facility] [address] COPPER 99 ug/dL 70-175 Mar 05, 2024 09:55 AM [facility] TSH W/REFLEX TO FREE T4 Specimen Type: PLASMA No comment entered. Ordering Provider: INDERJIT MORGAN Report Released Date/Time: Mar 05, 2024 09:40 AM Reporting Lab: [facility] [phone] Performing Lab: [facility] [address] TSH 2.01 u[IU]/mL 0.35-4.94 Mar 05, 2024 09:55 AM [facility] FERRITIN Specimen Type: SERUM No comment entered. Ordering Provider: INDERJIT MORGAN Report Released Date/Time: Mar 05, 2024 09:40 AM Reporting Lab: [facility] [phone] Performing Lab: [facility] [address] FERRITIN 191.6 ng/mL 21.8-274.7 Mar 05, 2024 09:55 AM [facility] B 12 Specimen Type: PLASMA No comment entered. Ordering Provider: INDERJIT MORGAN Report Released Date/Time: Mar 05, 2024 09:40 AM Reporting Lab: [facility] [address] Performing Lab: [facility] [address] B 12 864 pg/mL H 213-816 Mar 05, 2024 09:55 AM [facility] PRE-ALBUMIN Specimen Type: SERUM No comment entered. Ordering Provider: INDERJIT MORGAN Report Released Date/Time: Mar 05, 2024 09:40 AM Reporting Lab: [facility] [phone] Performing Lab: [facility] [address] PRE-ALBUMIN 19.9 mg/dL 14.0-45.0 Mar 05, 2024 09:55 AM [facility] LIPID PANEL,NON-FASTING Specimen Type: PLASMA No comment entered. Ordering Provider: INDERJIT MORGAN Report Released Date/Time: Mar 05, 2024 09:40 AM Reporting Lab: [facility] [phone] Performing Lab: [facility] [address] CHOLESTEROL 111 mg/dL <199 .HDL 45 mg/dL >40 LDL CALCULATION 54 mg/dL <99 VLDL CALCULATION 12 mg/dL <29 NON HDL CHOLESTEROL 66 mg/dL <129 TRIG(NON FASTING) 60 mg/dL <149 Mar 05, 2024 09:55 AM [facility] FOLATE Specimen Type: SERUM No comment entered. Ordering Provider: INDERJIT MORGAN Report Released Date/Time: Mar 05, 2024 09:40 AM Reporting Lab: [facility] [address] Performing Lab: [facility] [address] FOLATE 14.5 ng/mL >7.0 Mar 05, 2024 09:55 AM [facility] VIT D 25-OH,TOTAL Specimen Type: SERUM No comment entered. Ordering Provider: INDERJIT MORGAN Report Released Date/Time: Mar 05, 2024 09:40 AM Reporting Lab: [facility] [address] Performing Lab: [facility] [address] VIT D 25-OH,TOTAL 71 ng/mL H 12-50 Mar 05, 2024 09:55 AM [facility] COMPREHENSIVE METABOLIC PANEL+MG Specimen Type: PLASMA No comment entered. Ordering Provider: INDERJIT MORGAN Report Released Date/Time: Mar 05, 2024 09:40 AM Reporting Lab: [facility] [address] Performing Lab: [facility] [address] CREATININE 1.1 mg/dL 0.7-1.2 UREA NITROGEN 19 [...] 70 >60 Mar 05, 2024 09:55 AM [facility] CBC & DIFF Specimen Type: BLOOD Comment: Automated Differential Performed Ordering Provider: INDERJIT MORGAN Report Released Date/Time: Mar 05, 2024 09:40 AM Reporting Lab: [facility] [address] Performing Lab: [facility] [address] WBC 6.85 10*3/uL 4.0-11.0 RBC 4.20 10*6/uL [...] 10*3/uL 0-0.1 Mar 05, 2024 09:55 AM [facility] MAGNESIUM Specimen Type: PLASMA No comment entered. Ordering Provider: INDERJIT MORGAN Report Released Date/Time: Mar 05, 2024 09:40 AM Reporting Lab: [facility] [address] Performing Lab: [facility] [address] MAGNESIUM 1.4 mg/dL L 1.6-2.6 Mar 05, 2024 09:55 AM [facility] CALCIUM Specimen Type: PLASMA No comment entered. Ordering Provider: INDERJIT MORGAN Report Released Date/Time: Mar 05, 2024 09:40 AM Reporting Lab: [facility] [address] Performing Lab: [facility] [address] CALCIUM 9.6 mg/dL 8.4-10.2 Mar 05, 2024 09:55 AM [facility] IRON GROUP Specimen Type: SERUM No comment entered. Ordering Provider: INDERJIT MORGAN Report Released Date/Time: Mar 05, 2024 09:40 AM Reporting Lab: [facility] [address] Performing Lab: [facility] [address] IRON 59 ug/dL L 65-175 TIBC,CALCULATE D 258 ug/dL 250-425 FERRITIN 191.6 ng/mL 21.8-274.7 IRON SATURATION 23 20-50 TRANSFERRIN 206 mg/dL 163-382 Mar 05, 2024 09:55 AM [facility] PTH-N-TACT Specimen Type: SERUM No comment entered. Ordering Provider: INDERJIT MORGAN Report Released Date/Time: Mar 05, 2024 09:40 AM Reporting Lab: [facility] [address] Performing Lab: [facility] [address] PTH-N-TACT 26.5 pg/mL 8.7-77.1 Mar 05, 2024 09:54 AM [facility] VITAMIN A Specimen Type: SERUM Comment: Vitamin supplementation within 24 hours prior to blood draw may affect the accuracy of the results. This test was developed and its analytical performance characteristics have been determined by [employer], [place]. It has not been cleared or approved by the U.S. Food and Drug Administration. This assay has been validated pursuant to the CLIA regulations and is used for clinical purposes. Test Performed by [employer] [place], [employer] [facility] [place], [address] [place], [place] Devante Meyer M.D., Ph.D., Director of Laboratories , [facility] [id number] Ordering Provider: INDERJIT MORGAN Report Released Date/Time: Mar 05, 2024 09:40 AM Reporting Lab: [facility] [phone] Performing Lab: [facility] [address] [facility] VITAMIN A 54 ug/dL 38-98 Mar 05, 2024 07:35 AM [facility] HEMOGLOBIN A1C [...] Nov 07, 2023 10:56 AM Reporting Lab: [facility] [address] Performing Lab: [facility] [address] HEMOGLOBIN A1C 6.6 H 4.0-6.0 Vital Signs: All taken on the encounter date This section contains inpatient and outpatient Vital Signs collected on the date of the Encounter. Date/Time Temperature Pulse Blood Pressure Respiratory Rate SP02 Pain Height Weight Body Mass Index Source Mar 16, 2024 09:03 AM 97.8 71 132/76 16 98 9 156.8 24 [facility] Social History: Smoking Status (Most [...] FORMER TOBACCO USER 7Y OR GREATE R [facility] Aug 14, 2016 10:59 AM FORMER TOBACCO USER 7Y OR GREATE R [facility] Jun 29, 2015 02:03 PM FORMER TOBACCO USER 7Y OR GREATE R [facility] Jan 06, 2014 03:04 PM FORMER TOBACCO USER 7Y OR GREATE R [facility] Jan 04, 2012 08:36 AM FORMER TOBACCO USER 7Y OR GREATE R [facility] Radiology Reports: +/- 30 days of [...] the Encounter. The data comes from all [facility] facilities. Date/Time Radiology Report Provider Source Mar 16, 2024 10:09 AM HIP LEFT 2 VIEWS W /PELVIS: JUAN THOMPSON [id number] -[id number] M Exm Date: MAR 16, 2024@10:09 Req Phys: DUONG FIELDS Pat Loc: [facility] APACT A RES 05 WH 4F (Req' Img Loc: MAIN X-RAY Service: [place] [address] (Case [id number] COMPLETE) HIP LEFT 2 VIEWS W/PELVIS (RAD Detailed) CPT:64923 Proc Modifiers : LEFT Reason for Study: [...] 16, 2024 Date Verified: MAR 16, 2024 Application Internship E-Sig: Report: HIP LEFT 2 VIEWS W/PELVIS HISTORY: mechanical fall 3 days ago COMPARISON: Left hip series 08/28/2022 TECHNIQUE: AP view of the pelvis, and AP and frog-leg views of the left hip, submitted to the [place] National Teleradiology Program (NTP) for interpretation. FINDINGS: [...] hip joint OA. READING PHYSICIAN: Jere Johnson -[id number] 03/16/2024 14:24 CDT [facility] National Teleradiology Program [phone] (For Medical Practitioner Use Only) Attention Patients / Veterans: If you have questions or concerns about these test results, please contact your ordering provider or primary care team. Primary Interpreting Staff: RADIOLOGY,OUTSIDE SERVICE, Staff Physician / RADIOLOGY,OUTSIDE SERVICE [facility] Encounter Notes: All associated encounter notes This section contains the clinical notes associated to the Encounter. Date/Time Encounter Note(s) Provider Source Mar 24, 2024 10:37 PM ADDENDUM: LOCAL TITLE: Addendum STANDARD TITLE: ADDENDUM DATE OF NOTE: MAR 24, 2024@22:37:21 ENTRY DATE: MAR 24, 2024@22:37:22 AUTHOR: VIPUL SANTANA EXP COSIGNER: URGENCY: STATUS: COMPLETED SUBJECT: Ortho update Case reviewed. Patient known to Dr. Flood. Schedule in next available [facility]. Ok for phone visit. X-rays adequate. /pablo/ VIPUL SANTANA MD STAFF ORTHOPAEDIC SURGEON Signed: 03/24/2024 22:40 Receipt Acknowledged By: 03/25/2024 10:54 /pablo/ ANANTH NICHOLAS AMSA 03/27/2024 18:54 /es/ CAMILA Jolley PENNYGAMAL AMSA --- Original Document --- 03/16/24 PATIENT CONTACT NOTE: Patient contact Name of Angier: DONNAJUAN JR Name/Relationship of Contact if other than Angier: Date & Time of Contact: Feb@10:39 Type of Contact: Reason for Contact: pt came into the clinic today wanted to f/u on his left hip if appropraite please place order cons#[id number] /pablo/ ANANTH NICHOLAS AMSA Signed: 03/16/2024 10:41 Receipt Acknowledged By: 03/24/2024 22:35 /pablo/ VIPUL SANTANA MD STAFF ORTHOPAEDIC SURGEON VIPUL SANTANA [facility] Mar 16, 2024 10:39 AM REPORT OF CONTACT: LOCAL TITLE: PATIENT CONTACT NOTE STANDARD TITLE: REPORT OF CONTACT DATE OF NOTE: MAR 16, 2024@10:39 ENTRY DATE: MAR 16, 2024@10:39:33 AUTHOR: ANANTH NICHOLAS EXP COSIGNER: URGENCY: STATUS: COMPLETED PATIENT CONTACT NOTE Has ADDENDA Patient contact Name of : JUAN THOMPSON JR Name/Relationship of Contact if other than : Date & Time of Contact: Feb@10:39 Type of Contact: Reason for Contact: pt came into the clinic today wanted to f/u on his left hip if appropraite please place order cons#[id number] /pablo/ ANANTH NICHOLAS AMSA Signed: 03/16/2024 10:41 Receipt Acknowledged By: 03/24/2024 22:35 /pablo/ VIPUL SANTANA MD STAFF ORTHOPAEDIC SURGEON 03/24/2024 ADDENDUM STATUS: COMPLETED Case reviewed. Patient known to Dr. Flood. Schedule in next available [facility]. Ok for phone visit. X-rays adequate. /pablo/ VIPUL SANTANA MD STAFF ORTHOPAEDIC SURGEON Signed: 03/24/2024 22:40 Receipt Acknowledged By: * AWAITING SIGNATURE * ANANTH NICHOLAS * AWAITING SIGNATURE * CAMILA MEEK AYSIA M [facility]
--- OUTSIDE RECORDS SUMMARY | 2024-07-08 19:38 | XMS_ITS ---
[place] MEDICAL NUTRITION INDIV IN [facility] HCS Encounter Summary Created on: July 08, 2024 JUAN THOMPSON : 1945 Sex: Male Author Name [facility] [place] Address [address] [place] [address] Care Team Providers Care Social Staff Worker Name Role Phone SONIA PHILLIPS Primary Care [...] PART B Sep 26, 2012 PART B [id number] [facility] [phone] JUAN THOMPSON JR PATIENT MEDICARE (WNR) MEDICARE (M) PART A Sep 26, 2012 PART A [id number] [phone] JUAN THOMPSON JR PATIENT Selected Encounter This section includes the information on record at [place] for the Encounter. Date/Time Encounter Type Encounter Description Reason Provider Source Jul 06, 2024 08:30 AM MEDICAL NUTRITION INDIV IN TELEPHONE/ANCILLAR Y ICD-10-CM R63.4 Abnormal weight loss CARLY GANDARA SA A IHE Encounter Template Text not used by [place] Assessments - Encounter Diagnoses This section includes the primary and secondary diagnoses documented for the Encounter. Date/Time Primary/Secondary Diagnosis Diagnosis Name Provider Source Jul 06, 2024 08:30 AM PRIMARY Abnormal weight loss SAGE GANDARA A [facility] Jul 06, 2024 08:30 AM SECONDARY Dietary counseling and surveillance SAGE GANDARA A [facility] Plan of Treatment: Future Appointments (+ 6 months) and Future Tests (+/- 45 days) The Plan of Treatment section includes future care activities for the patient from all [place] [facility] This section includes future appointments and future orders which are active, pending or scheduled. Future Appointments This section includes appointments that were scheduled to occur 6 months from the date of the Encounter, up to a maximum of 20 appointments. The data comes from all [facility]. Appointment Date/Time Appointment Type Appointme nt Facility Name Jul 08, 2024 11:07 AM [facility] Jul 16, 2024 07:30 AM [facility] Jul 16, 2024 08:30 AM [facility] [place] [facility] Jul 16, 2024 09:00 AM [facility] Jul 16, 2024 09:30 AM AMBULATORY - PS[facility]CHIATRY [facility] Aug 14, 2024 03:00 PM [facility] Oct 07, 2024 09:00 AM [facility] Oct 19, 2024 09:30 AM AMBULATORY - NEUROLOGY [facility] Active, Pending, and Scheduled Orders This [...] data comes from all [facility]. Test Date/Time Test Type Test Details Facility Name Jun 19, 2024 04:32 PM Consult Order COMMUNITY CARE-NUCLEAR MEDICINE Cons [place] Operator's Choice [facility] Lab Results: +/- 30 days [...] Range Comment Jun 12, 2024 07:22 AM [facility] PHOSPHORUS Specimen Type: PLASMA No comment entered. Ordering Provider: AYANA MICHELLE Report Released Date/Time: May 26, 2024 09:45 AM Reporting Lab: [facility] [id number] Performing Lab: [facility] [id number] PHOSPHORUS 3.4 mg/dL 2.3-4.3 Jun 12, 2024 07:22 AM [facility] RETICS Specimen Type: BLOOD Comment: Automated Differential Performed Ordering Provider: AYANA MICHELLE Report Released Date/Time: May 26, 2024 09:53 AM Reporting Lab: [facility] [id number] Performing Lab: [facility] [address] ABS RETIC 0.0429 0.0300-0.1 000 .RETICULOCYTE 1.06 0.6-2.0 IMMATURE RETIC 5.9 1.0-14.0 .RETICULOCYTE HE 30.5 pg 28.2-36.6 Jun 12, 2024 07:22 AM [facility] COMPREHENSIVE METABOLIC PANEL+MG Specimen Type: PLASMA No comment entered. Ordering Provider: AYANA MICHELLE Report Released Date/Time: May 26, 2024 09:45 AM Reporting Lab: [facility] [id number] Performing Lab: [facility] [address] CREATININE 1.0 mg/dL 0.7-1.2 UREA NITROGEN 22 [...] 78 >60 Jun 12, 2024 07:22 AM [facility] CBC & DIFF Specimen Type: BLOOD Comment: Automated Differential Performed Ordering Provider: AYANA MICHELLE Report Released Date/Time: May 26, 2024 09:45 AM Reporting Lab: [facility] [phone] Performing Lab: [facility] [id number] WBC 6.4 4.0-11.0 RBC 4.05 L 4.60-6.20 [...] 0.0 0.0-0.1 .RETICULOCYTE HE 30.5 pg 28.2-36.6 Social History: Smoking Status (Most current) and Tobacco Use (All prior to encounter date) This section includes the most current, and the historical, smoking and tobacco- related health factors from the [place] facility where the Encounter took place. Current Smoking Status This section includes the most current smoking, or tobacco-related health factor, from the [place] facility where the Encounter took place. Date/Time Current Smoking Status Comment Facil ity Aug 21, 2023 10:30 AM VA-TOBACCO FORMER USER [facility] Tobacco Use History This section includes a history of the smoking, or tobacco-related health factors, that were collected on or before the date of the Encounter. The data comes from the [facility] where the Encounter took place. Date/Time Smoking Status/Tobacco Use Comment F acility Aug 21, 2023 10:30 AM VA-TOBACCO QUIT 15 YRS OR MORE [facility] Aug 15, 2022 09:00 AM VA-TOBACCO FORMER USER [facility] Aug 15, 2022 09:00 AM VA-TOBACCO QUIT 15 YRS OR MORE [facility] Aug 21, 2021 01:00 PM VA-TOBACCO FORMER USER [facility] Aug 21, 2021 01:00 PM VA-TOBACCO QUIT 15 YRS OR MORE [facility] Jul 09, 2018 08:58 AM VA-TOBACCO FORMER USER [facility] Jul 09, 2018 08:58 AM VA-TOBACCO QUIT 15 YRS OR MORE [facility] Jul 18, 2017 09:58 AM FORMER TOBACCO USER 7Y OR GREATE R [facility] Aug 14, 2016 10:59 AM FORMER TOBACCO USER 7Y OR GREATE R [facility] Jun 29, 2015 02:03 PM FORMER TOBACCO USER 7Y OR GREATE R [facility] Jan 06, 2014 03:04 PM FORMER TOBACCO USER 7Y OR GREATE R [facility] Jan 04, 2012 08:36 AM FORMER TOBACCO USER 7Y OR GREATE R [facility] Pathology Reports: +/- 30 days [...] the Encounter. The data comes from all [facility] facilities. Date/Time Pathology Report Provider Source Jun 16, 2024 12:06 PM LR SURGICAL PATHOL OGY REPORT: LOCAL TITLE: LR SURGICAL PATHOLOGY REPORT STANDARD TITLE: PATHOLOGY REPORT DATE OF NOTE: JUN 16, 2024@12:06:01 ENTRY DATE: JUN 16, 2024@12:06:01 AUTHOR: CIOC,BRIELLE M EXP COSIGNER: URGENCY: STATUS: COMPLETED $APHDR Reporting Lab: [facility] [CLIA# [id number]] [place] [address] - - - - - - - [...] - - - PATHOLOGY REPORT Accession No. [id number] - - - - - [...] in cassette B. Grossing performed by: DAVID, Muck Boss Entered by: DAVID, Muck Boss Grossing confirmed by: Brielle Orourke, Hematopathologist This report includes the results of laboratory tests utilizing Analyte Specific Reagents or commercially available antibodies ([place] and Lambda CISH Probes). These tests have been developed, fully validated, and their optimal performance characteristics determined by the [facility]. Such tests have not [...] see also concurrent negative flow cytometry study ([id number]). Imaging studies concerning for possible lytic lesions [...] controls for CD3, CD20, CD34, CD61, CD138, [place] and lambda light chains, and pankeratin are [...] STAFF PATHOLOGIST, PATHOLOGY & LABORATORY MED [facility] Signed Jun 16, 2024@12:06 Performing Laboratory: Surgical Pathology Report Performed By: [facility] [CLIA# [id number]] [place] [address] $FTR - - - - - - - - - - - - - - - - - - - - - - - - - - - - - - - - - - - - - - - - (End of report) BRIELLE OROURKE MD [facility] Date Jun 16, 2024 - - - - - - - - - - - - - - - - - - - - - - - - - - - - - - - - - - - - - - - - JUAN THOMPSON JR STANDARD FORM 515 ID:[id number] SEX:M :1945 AGE: 78 LOC:[id number] PCP: Sonia Phillips /pablo/ BRIELLE OROURKE MD STAFF PATHOLOGIST, PATHOLOGY & LABORATORY [facility] Signed: 06/16/2024 12:06 BRIELLE OROURKE [facility] Jun 16, 2024 12:02 PM LR SURGICAL PATHOL OGY REPORT: LOCAL TITLE: LR SURGICAL PATHOLOGY REPORT STANDARD TITLE: PATHOLOGY REPORT DATE OF NOTE: JUN 16, 2024@12:02:40 ENTRY DATE: JUN 16, 2024@12:02:40 AUTHOR: BRIELLE OROURKE EXP COSIGNER: URGENCY: STATUS: COMPLETED $APHDR Reporting Lab: [facility] [CLIA# [id number]] [place] [address] - - - - - - - [...] - - - PATHOLOGY REPORT Accession No. [id number] - - - - - - - [...] morphologic correlation see bone marrow biopsy report [id number]. Summary: On CD45 vs. side scatter analysis, [...] STAFF PATHOLOGIST, PATHOLOGY & LABORATORY MED [facility] Signed Jun 16, 2024@12:02 Performing Laboratory: Surgical Pathology Report Performed By: [facility] [CLIA# [id number]] [place] [address] $FTR - - - - - - - - - - - - - - - - - - - - - - - - - - - - - - - - - - - - - - - - (End of report) BRIELLE OROURKE MD [facility] Date Jun 16, 2024 - - - - - - - - - - - - - - - - - - - - - - - - - - - - - - - - - - - - - - - - JUAN THOMPSON JR STANDARD FORM 515 ID:[id number] SEX:M :1945 AGE: 78 LOC:[id number] PCP: Sonia Phillips /aneesh OROURKE MD STAFF PATHOLOGIST, PATHOLOGY & LABORATORY MED [facility] Signed: 06/16/2024 12:BRIELLE PONCE [facility] Encounter Notes: All associated encounter notes This section contains the clinical notes associated to the Encounter. Date/Time Encounter Note(s) Provider Source Jul 06, 2024 08:18 AM NUTRITION RISK ASS ESSMENT SCREENING NOTE: LOCAL TITLE: NUTRITION OUTPT ASSESSMENT STANDARD TITLE: NUTRITION RISK ASSESSMENT SCREENING NOTE DATE OF NOTE: JUL 06, 2024@08:18 ENTRY DATE: JUL 06, 2024@08:18:16 AUTHOR: TRUE GANDARA COSIGNER: URGENCY: STATUS: COMPLETED Visit Information: Delivery Method: phone Visit Type: initial Reason for visit: unintentional wt. loss Time spent with [place]: 30 min ASSESSMENT: Pt shares that he has been trying to gain wt. Notes that he started Ensure about 3 months ago and this has helped with his energy and also his appetite has improved. Feels good at his current wt. However notes recent concerns that he has developed CHF. Noted recent contact notes for this, based on discussion with pt has still not been seen as was recommended. Says he plans to follow-up on this but did not state exactly when. Does get Meals on Wheels delivered for lunch. May have soup, cheese or egg sandwich for his other meals. Will sometimes add salt to food but is open to trying to reduce this. Tries to eat 3 meals/day but sometimes only ends up eating 2. May purchase vending machine snack occasionally. Drinks quite a bit of coffee, also some juice, drinks 2-3 c. of milk per day. Has a bilingual social worker who will take to store 1x/week and says this is working for him to supplement his delivered meals that he receives. Doesn't know how to add calories. Also pt indicates that he is edentulous so relies on soft foods. Height: 68 in [172.7 cm] (06/23/2024 09:54) Weight: 170 lb. stated Measurement DT WEIGHT LB(KG)[BMI] 06/23/2024 09:54 176.8(80.20)[27] 06/12/2024 08:50 173.2(78.56)[26] 06/03/2024 10:12 166(75.30)[25] Body Mass Index: 26.9 Weight change: -30 lb. from September-Mar of this year, has since regained 20 lb. from Mar-May (stopped Ozempic in Feb); pt however notes fluid gain Weight goal: 170 lb. stated Malnutrition Assessment (per AND/ASPEN Consensus Statement, 2012): Dietitian does not suspect malnutrition at this time, therefore, physical assessment not conducted Estimated Nutrient Intake: calories: 6694-3883/day estimate on average sodium: >2000 mg/day Comparative Standards: based on stated wt. 77 kg 1925 kcal/day 25 kcal/kg sodium: <2000 mg/day DIAGNOSIS: NEW Problem: inadequate oral intake Etiology: food and nutrition related knowledge deficit, decreased appetite Signs/Symptoms: eating <3 meals/day NEW Problem: excessive sodium intake Etiology: undesirable food choices, reliance on quick processed foods Signs/Symptoms: sodium intake > daily recommendations INTERVENTION: Nutrition Prescription: balanced eating, low sodium Nutrition Education Content: Content Related Nutrition Education: -reviewed ways to add calories, encouraged small/frequent meals -suggested food first approach and reviewed ideas for foods he could include for calories to replace Ensure Goal(s): eat at least 3x/day, focus on nutrient dense, high calorie foods Education on nutrition's influence on health: -reviewed impact of high sodium diet on health, encouraged pt to monitor intake Goal(s): reduce sodium intake Coordination of Care by Nutrition Professional: Referral by nutrition professional to other providers -recommended follow-up on leg swelling ANAMIKA vs waiting Goal(s): see provider for edema Patient Education of Treatment Plan: Patient indicates readiness to learn, verbalizes understanding, agreement and satisfaction with the treatment plan. Denies further questions. MONITORING & EVALUATION: Food and/or Nutrient Intake: Number of meals estimated in 24 hours: 3 meals/day with intake >1900 kcal Estimated sodium intake: <2000 mg/day Follow Up: Follow up appointment will be scheduled: 08/11 at 2pm phone /pablo/ TRUE GANDARA MS, RD, LD Registered Dietitian, PACT Signed: 07/07/2024 09:09 TRUE GANDARA [facility]
--- OUTSIDE RECORDS SUMMARY | 2024-07-08 19:42 | XMS_ITS | Encounter Summary ---
Author Name [facility] [place] Address [address] [place] [address] Care Team Providers Care Bakery Manager Name Role Phone MARIUSZ PHILLIPS Primary [...] PART A Sep 26, 2012 PART A [id number] [facility] [phone] JUAN THOMPSON JR PATIENT MEDICARE (WNR) MEDICARE (M) PART B Sep 26, 2012 PART B [id number] [phone] JUAN THOMPSON JR PATIENT Selected Encounter This section includes the information on record at [place] for the Encounter. Date/Time Encounter Type Encounter Description Reason Pro vider Source Aug 22, 2023 04:32 PM Outpatient Encounter ADMIN PAT ACTIVTIES (MASNONCT) IHE Encounter Template Text not used by [place] Plan of Treatment: Future Appointments (+ 6 months) and Future Tests (+/- 45 days) The Plan of Treatment section includes future care activities for the patient from all [place] [facility]. This section includes future appointments and future orders which are active, pending or scheduled. Future Appointments This section includes appointments that were scheduled to occur 6 months from the date of the Encounter, up to a maximum of 20 appointments. The data comes from all [facility]. Appointment Date/Time Appointment Type Appointme nt Facility Name Sep 28, 2023 07:00 AM AMBULATORY - NONE [place] [facility] Oct 02, 2023 07:00 AM AMBULATORY - [place]ONE [place] [facility] Oct 03, 2023 08:30 AM [place] [facility] Oct 09, 2023 09:00 AM AMBULATORY - NONE [place] [facility] Oct 09, 2023 10:00 AM AM[place]ORY [place]IC[place] [facility] Nov 07, 2023 09:30 AM AM[place]IC[place] [facility] Nov 07, 2023 10:30 AM [place] [facility] Nov 07, 2023 11:30 AM AM[place] [facility] Nov 07, 2023 11:45 AM AM[place]UL[place]ORY [place]IC[place] [facility] Nov 20, 2023 09:00 AM AMBUL[place]ORY [place] [facility] December 05, 2023 09:30 AM AMBULATORY [place]RY [place] [facility] Feb 07, 2024 11:00 AM AMBULATORY - NONE [place] [facility] Feb 07, 2024 11:30 AM [place]ORY [place] [facility] Feb 07, 2024 12:30 PM AMBULATORY - NONE [place] [facility] Feb 18, 2024 08:00 AM [facility] [place] [facility] Active, Pending, and Scheduled Orders This section includes a listing of several types of active, pending, and scheduled orders, including clinic medications orders, diagnostic test orders, procedure orders and consult orders; where the start date of the order is 45 days before the date of the Encounter or 45 days after the date of theEncounter. The data comes from all [facility]. Test Date/Time Test Type Test Details Facility Name Aug 15, 2023 12:00 AM Laboratory - Chemi stry Order BASIC METABOLIC PANEL+MG PLASMA SP [facility] Aug 15, 2023 12:00 AM Laboratory - Chemi stry Order HEMOGLOBIN A1C BLOOD SP [facility] Aug 15, 2023 12:00 AM Laboratory - Chemi stry Order [facility] Aug 21, 2023 04:02 PM Laboratory - Chemi stry Order URINALYSIS URINE ER STAT WC ONCE [facility] Lab Results: +/- 30 [...] Range Comment Aug 21, 2023 02:27 PM [facility] URINALYSIS Specimen Type: URINE No comment entered. Ordering Provider: STEPH CHAVEZ Report Released Date/Time: Aug 21, 2023 01:11 PM Reporting Lab: [facility] [address] Performing Lab: [facility] [address] URINE COLOR YELLOW SPECIFIC GRAVITY 1.027 1.003-1.035 [...] 250 NEGATIVE Aug 21, 2023 01:36 PM [facility] TROPONIN I, HS Specimen Type: PLASMA No comment entered. Ordering Provider: STEPH CHAVEZ Report Released Date/Time: Aug 21, 2023 01:11 PM Reporting Lab: [facility] [address] Performing Lab: [facility] [address] TROPONIN I, HS <3 <35 Aug 21, 2023 01:36 PM [facility] BASIC METABOLIC PANEL+MG Specimen Type: PLASMA No comment entered. Ordering Provider: STEPH CHAVEZ Report Released Date/Time: Aug 21, 2023 01:11 PM Reporting Lab: [facility] [address] Performing Lab: [facility] [address] CREATININE 1.2 mg/dL 0.7-1.2 UREA NITROGEN 23 mg/dL 8-26 GLUCOSE 82 mg/dL 70-100 SODIUM 142 mmol/L 136-145 POTASSIUM 3.7 mmol/L 3.5-5.1 CHLORIDE 105 mmol/L 98-107 CO2 30 mmol/L H 22-29 CALCIUM 8.7 mg/dL 8.4-10.2 MAGNESIUM 1.7 mg/dL 1.6-2.6 ANION GAP 7 mmol/L 5-15 .CREAT EGFR(CKD-EPI ) 63 >60 Aug 21, 2023 01:36 PM [facility] CBC & DIFF Specimen Type: BLOOD Comment: Automated Differential Performed Ordering Provider: STEPH CHAVEZ Report Released Date/Time: Aug 21, 2023 01:11 PM Reporting Lab: [facility] [address] Performing Lab: [facility] [address] WBC 6.27 10*3/uL 4.0-11.0 RBC 3.93 10*6/uL [...] 10*3/uL 0-0.1 Aug 21, 2023 01:32 PM [facility] EXTRA GOLD GEL TUBE Specimen Type: SERUM No comment entered. Ordering Provider: STEPH CHAVEZ Report Released Date/Time: Aug 21, 2023 01:36 PM Reporting Lab: [facility] [address] Performing Lab: [facility] [address] EXTRA GOLD GEL TUBE RECEIVED Aug 21, 2023 01:32 PM [facility] EXTRA BLUE TUBE Specimen Type: PLASMA No comment entered. Ordering Provider: STEPH CHAVEZ Report Released Date/Time: Aug 21, 2023 01:36 PM Reporting Lab: [facility] [address] Performing Lab: [facility] [address] EXTRA BLUE TUBE RECEIVED Social History: Smoking [...] 21, 2023 10:30 AM VA-TOBACCO FORMER USER [facility] Tobacco Use History This [...] FORMER TOBACCO USER 7Y OR KIAH R [facility] Jun 29, 2015 02:03 PM FORMER TOBACCO USER 7Y OR K[facility] R [facility] Jan 06, 2014 03:04 PM FORMER TOBACCO USER 7Y OR KIAH R [facility] Jan 04, 2012 08:36 AM FORMER TOBACCO USER 7Y OR K[facility] Khan [facility] Radiology Reports: +/- 30 [...] comes from all [facility] facilities. Date/Time Radiology Report Provider Source Aug 21, 2023 01:[address] C-SPINE W/O (P) : JUAN THOMPSON [id number] -1945 M Ex Date: AUG 21, 2023@13:29 Req Phys: STEPH CHAVEZ Loc: [facility] EMERGENCY DEPT WALK-IN (Re Img Loc: CT IMAGING Service: Unknown (Case [id number] COMPLETE) CT CERVICAL SPINE W/O CONTRAST (CT Detailed) CPT:59327 Reason for Study: fall hit head Clinical [...] any questions or notifications of critical findings: scott If ordering provider is a trainee, enter the name and contact information of the responsible staff physician. scott LAST 3: Collection DT Specimen Test Name [...] PLASMA .CREAT EGFR(CKD-E 70 Ref: >=60 Allergies: ([facility] only) SULFAMETHOXAZOLE (Feb 07, 2022) EMPAGLIFLOZIN (Jun 06, 2022) To see allergies from all [place] locations click Reports tab>Remote Data>All Available Sites>Clinical Reports>Allergies. Report Status: Verified Date Reported: AUG 21, 2023 Date Verified: AUG 21, 2023 Nursing Unit Coordinator E-Sig:/ES/OMAIRA LANDERS MD Report: CT CERVICAL SPINE [...] Primary Interpreting Staff: OMAIRA LANDERS MD, RADIOLOGIST (Nursing Unit Coordinator) /[facility] OMAIRA LANDERS [facility] Aug 21, 2023 01:[address] HEAD (P): JUAN THOMPSON [id number] -1945 M Ex Date: AUG 21, 2023@13:28 Req Phys: STEPH CHAVEZ Loc: [facility] EMERGENCY DEPT WALK-IN (Re Img Loc: CT IMAGING Service: Unknown (Case [id number] COMPLETE) CT HEAD/BRAIN W/O CONTRAST (CT Detailed) CPT:84614 Reason for Study: fall hit head Clinical History: IS NOT under investigation for COVID-19 or is COVID-19 negative Defer to radiologist for final CT protocol. Please enter pertinent clinical history on the next page. Contact number for responsbile provider who can be reached for any questions or notifications of critical findings: SCOTT If ordering provider is a trainee, enter the name and contact information of the responsible staff physician. PENELOPEi LAST 3: Collection DT Specimen Test Name [...] PLASMA .CREAT EGFR(CKD-E 70 Ref: >=60 Allergies: ([facility] only) SULFAMETHOXAZOLE (Feb 07, 2022) EMPAGLIFLOZIN (Jun 06, 2022) To see allergies from all [place] locations click Reports tab>Remote Data>All Available Sites>Clinical Reports>Allergies. Report Status: Verified Date Reported: AUG 21, 2023 Date Verified: AUG 21, 2023 Nursing Unit Coordinator E-Sig:/ES/SWATHI STACY MD Report: NONCONTRAST CT OF [...] Primary Interpreting Staff: SWATHI STACY MD, RADIOLOGIST (Nursing Unit Coordinator) /SWATHI NEWBERRY [facility] Encounter Notes: All associated encounter notes This section contains the clinical notes associated to the Encounter. Date/Time Encounter Note(s) Provider Source Aug 21, 2023 04:32 PM SCANNED REPORT: LOCAL TITLE: TELEMETRY RHYTHM STRIPS STANDARD TITLE: SCANNED REPORT DATE OF NOTE: AUG 21, 2023@16:32 ENTRY DATE: AUG 22, 2023@16:32:43 AUTHOR: NIVIA LI EXP COSIGNER: URGENCY: STATUS: COMPLETED see [employer]. /pablo/ NIVIA LI [employer] Technician Signed: 08/22/2023 16:33 NIVIA LI [facility]
--- OUTSIDE RECORDS SUMMARY | 2024-07-08 19:47 | XMS_ITS | Encounter Summary ---
Author Name [facility] [place] Organization [facility] [place] Address [address] [place] [address] Care Team Providers Care Chief Dispatcher Name Role Phone MARIUSZ PHILLIPS Primary Care [...] PART A Sep 26, 2012 PART A [id number] [phone] JUAN THOMPSON JR PATIENT MEDICARE (WNR) MEDICARE (M) PART B Sep 26, 2012 PART B [id number] [phone] JUAN THOMPSON JR PATIENT Selected Encounter This section includes the information on record at [place] for the Encounter. Date/Time Encounter Type Encounter Description Reason Pro vider Source Oct 02, 2023 11:18 AM Outpatient Encounter COMMUNITY CARE CONSULT IHE Encounter Template Text not used by [facility] Plan of Treatment: Future Appointments (+ 6 months) and Future Tests (+/- 45 days) The Plan of Treatment section includes future care activities for the patient from all [place] [facility] This section includes future appointments and future orders which are active, pending or scheduled. Future Appointments This section includes appointments that were scheduled to occur 6 months from the date of the Encounter, up to a maximum of 20 appointments. The data comes from all [place] treatment facilities. Appointment Date/Time Appointment Type Appointme nt Facility Name Oct 03, 2023 08:30 AM AMBUL[place]ORY [place] [facility] Oct 09, 2023 09:00 AM [place] - [place] [facility] Oct 09, 2023 10:00 AM [place]IC[place] [facility] Nov 07, 2023 09:30 AM [place]IC[place] [facility] Nov 07, 2023 10:30 AM [place] - [place]IC[place] [facility] Nov 07, 2023 11:30 AM AMB[place] [facility] Nov 07, 2023 11:45 AM [place]IC[place] [facility] Nov 20, 2023 09:00 AM [place] [facility] December 05, 2023 09:30 AM AMBUL[place] [facility] Feb 07, [...] NONE [place] [facility] Active, Pending, and Scheduled Orders This section includes a listing of several types of active, pending, and scheduled orders, including clinic medications orders, diagnostic test orders, procedure orders and consult orders; where the start date of the order is 45 days before the date of the Encounter or 45 days after the date of theEncounter. The data comes from all [place] treatment facilities. Test Date/Time Test Type Test Details Facility Name Aug 21, 2023 04:02 PM Laboratory - Chemi stry Order URINALYSIS URINE ER STAT WC ONCE [facility] Lab Results: +/- 30 days of [...] Range Comment Oct 09, 2023 08:35 AM [facility] HEMOGLOBIN A1C Specimen Type: BLOOD Comment: [...] Aug 29, 2023 04:30 PM Reporting Lab: [facility] [id number] Performing Lab: [facility] [id number] HEMOGLOBIN A1C 6.4 H 4.0-6.0 Oct 09, 2023 08:35 AM [facility] CBC Specimen Type: BLOOD No comment entered. Ordering Provider: YO YEUNG Report Released Date/Time: Aug 29, 2023 04:30 PM Reporting Lab: [facility] [id number] Performing Lab: [facility] [id number] WBC 7.18 10*3/uL 4.0-11.0 RBC 3.94 10*6/uL L 4.6-6.2 HGB 11.7 g/dL L 13.5-17.9 HCT 36.0 L 41-54 MCV 91.4 fL 80-100 MCH 29.7 pg 27-33 MCHC 32.5 g/dL 32.0-37.5 PLT 266 10*3/uL 150-400 MPV 9.7 fL 7.4-10.4 RDW 14.3 11.5-14.5 Oct 09, 2023 08:35 AM [facility] BASIC METABOLIC PANEL+MG Specimen Type: PLASMA No comment entered. Ordering Provider: YO YEUNG Report Released Date/Time: Aug 29, 2023 04:30 PM Reporting Lab: [facility] [id number] Performing Lab: [facility] [id number] CREATININE 1.1 mg/dL 0.7-1.2 UREA NITROGEN 22 [...] 21, 2023 10:30 AM VA-TOBACCO FORMER USER [facility] Tobacco Use History This section includes a history of the smoking, or tobacco-related health factors, that were collected on or before the date of the Encounter. The data comes from the [place] facility where the Encounter took place. Date/Time Smoking Status/Tobacco Use Comment [facility] Aug 21, 2023 10:30 AM VA-TOBACCO QUIT 15 YRS OR MORE [facility] Aug 15, 2022 09:00 AM VA-TOBACCO FORMER USER [facility] Aug 15, 2022 09:00 AM VA-TOBACCO QUIT 15 YRS OR MORE [facility] Aug 21, 2021 01:00 PM VA-TOBACCO FORMER USER [facility] Aug 21, 2021 01:00 PM VA-TOBACCO QUIT 15 YRS OR MORE [facility] Jul 09, 2018 08:58 AM VA-TOBACCO FORMER USER [facility] Jul 09, 2018 08:58 AM VA-TOBACCO QUIT 15 YRS OR MORE [facility] Jul 18, 2017 09:58 AM FORMER TOBACCO USER 7Y OR GREATE R [facility] Aug 14, 2016 10:59 AM FORMER TOBACCO USER 7Y OR GREATE R [facility] Jun 29, 2015 02:03 PM FORMER TOBACCO USER 7Y OR GREATE R [facility] Jan 06, 2014 03:04 PM FORMER TOBACCO USER 7Y OR GREATE R [facility] Jan 04, 2012 08:36 AM FORMER TOBACCO USER 7Y OR GREATE R [facility] Encounter Notes: All associated encounter notes This section contains the clinical notes associated to the Encounter. Date/Time Encounter Note(s) Provider Source Oct 02, 2023 01:31 PM ADDENDUM: LOCAL TITLE: Addendum STANDARD TITLE: ADDENDUM DATE OF NOTE: OCT 02, 2023@13:31:38 ENTRY DATE: OCT 02, 2023@13:31:39 AUTHOR: BRITTANI HERNANDEZ EXP COSIGNER: URGENCY: STATUS: COMPLETED Returned call and left detailed message on Patricia Duenas's self-identified confidential VM providing VO for PT services. FYI only to CC RN. /pablo/ Brittani Hernandez RN Registered Nurse Signed: 10/02/2023 13:33 Receipt Acknowledged By: 10/02/2023 13:51 /es/ RENU SCHOFIELD RN honing machine set up operator Hydrologist --- Original Document --- 10/02/23 COMMUNITY CARE-CARE COORDINATION PLAN NOTE: Received VM from ULYSSES Gomez at [facility]. Patricia calls to relay concerns/changes with [place]'s home safety in the past few weeks, stating he is beginning to have more falls. Reports He had fallen Saturday night and split his chin wide open. We finally convinced him Saturday afternoon to be seen at the [facility] and they put in 6 stitches. She reports all the did was stand up from his chair, straightened, and fell forward face down. The week prior she reports he tripped getting out of bed and got a bloody nose. Visalia has a guardian (Nathalie Cline) and they are wondering if a in-home physical therapy referral would be appropriate to address strength/balance and improve safety and prevent falls. She reports the does use his walker. Pat reports they ([facility]) have a physical therapist and they would be able to accept the orders for in-home PT to be added to his current skilled homecare authorization. Pat can be reached at [phone] with any further questions/concerns. Action need by PACT: If approved/appropriate, please call Pat and provide either verbal or faxed orders for in-home physical therapy. Therapy will be added to [place]'s existing skilled homecare authorization, no consult needed. Thank you [facility] [address] [place] [address] [place] AUTH: [id number] VALID FROM: 2023-09-28 through 2024-03-26 /pablo/ RENU SCHOFIELD RN honing machine set up operator Hydrologist Signed: 10/02/2023 12:16 Receipt Acknowledged By: 10/02/2023 13:31 /pablo/ Brittani Hernandez RN Registered Nurse 10/02/2023 12:19 /pablo/ MARIUSZ PHILLIPS MD PHYSICIAN 10/02/2023 ADDENDUM STATUS: COMPLETED Agree with PT recommendation as above /aneesh PHILLIPS MD PHYSICIAN Signed: 10/02/2023 12:19 BRITTANI HERNANDEZ [facility] Oct 02, 2023 11:18 AM NONVA NOTE: LOCAL TITLE: COMMUNITY CARE-CARE COORDINATION PLAN NOTE STANDARD TITLE: NONVA NOTE DATE OF NOTE: OCT 02, 2023@11:18 ENTRY DATE: OCT 02, 2023@11:18:44 AUTHOR: RENU SCHOFIELD EXP COSIGNER: URGENCY: STATUS: COMPLETED COMMUNITY CARE-CARE COORDINATION PLAN NOTE Has ADDENDA Received VM from ULYSSES Gomez at [facility]. Pat calls to relay concerns/changes with [place]'s home safety in the past few weeks, stating he is beginning to have more falls. Reports He had fallen Saturday night and split his chin wide open. We finally convinced him Saturday afternoon to be seen at the [facility] and they put in 6 stitches. She reports all the did was stand up from his chair, straightened, and fell forward face down. The week prior she reports he tripped getting out of bed and got a bloody nose. has a guardian (Nathalie Cline) and they are wondering if a in-home physical therapy referral would be appropriate to address strength/balance and improve safety and prevent falls. She reports the does use his walker. Pat reports they ([facility]) have a physical therapist and they would be able to accept the orders for in-home PT to be added to his current skilled homecare authorization. Pat can be reached at [phone] with any further questions/concerns. Action need by PACT: If approved/appropriate, please call Pat and provide either verbal or faxed orders for in-home physical therapy. Therapy will be added to [place]'s existing skilled homecare authorization, no consult needed. Thank you [facility] [address] [place] [address] [place] AUTH: [id number] VALID FROM: 2023-09-28 through 2024-03-26 /pablo/ RENU SCHOFIELD RN honing machine set up operator Hydrologist Signed: 10/02/2023 12:16 Receipt Acknowledged By: 10/02/2023 13:31 /pablo/ Brittani Hernandez RN Registered Nurse 10/02/2023 12:19 /pablo/ MARIUSZ PHILLIPS MD PHYSICIAN 10/02/2023 ADDENDUM STATUS: COMPLETED Agree with PT recommendation as above /pablo/ MARIUSZ PHILLIPS MD PHYSICIAN Signed: 10/02/2023 12:19 10/02/2023 ADDENDUM STATUS: COMPLETED Returned call and left detailed message on Patricia Duenas's self-identified confidential VM providing VO for PT services. FYI only to CC RN. /pablo/ Brittani Hernandez RN Registered Nurse Signed: 10/02/2023 13:33 Receipt Acknowledged By: 10/02/2023 13:51 /pablo/ RENU SCHOFIELD RN honing machine set up operator Hydrologist 10/03/2023 ADDENDUM STATUS: COMPLETED Received f/u VM from ULYSSES Gomez stating order has been received and they will start services during the week of 10/20 d/t staff availability. /pablo/ Brittani Hernandez RN Registered Nurse Signed: 10/03/2023 09:42 RENU SCHOFIELD [facility]
--- OUTSIDE RECORDS SUMMARY | 2024-07-08 19:54 | XMS_ITS | Encounter Summary ---
Author Name [facility] [place] Organization [place] Address [address] [place] [address] Care Team Providers Care Silver Recovery Operator Name Role Phone MARIUSZ PHILLIPS Primary [...] PART B Sep 26, 2012 PART B [id number] [phone] JUAN THOMPSON JR PATIENT MEDICARE (WNR) MEDICARE ([place]) PART A Sep 26, 2012 PART A [id number] [phone] JUAN THOMPSON JR PATIENT Selected Encounter This section includes the information on record at [place] for the Encounter. Date/Time Encounter Type Encounter Description Reason Provider Source Nov 13, 2023 11:14 AM Outpatient Encounter TELEPHONE TRIAGE NASIR LENNON Baldo Encounter Template Text not used by [facility] Plan of Treatment: Future Appointments (+ 6 months) and Future Tests (+/- 45 days) The Plan of Treatment section includes future care activities for the patient from all [place] [facility] This section includes future appointments and future [...] 09:00 AM AMBULATORY [place] [facility] December 05, 2023 09:30 AM AMB[place] [facility] Feb 07, 2024 11:00 AM [place] - [place]ONE [place] [facility] Feb 07, 2024 11:30 AM AMB[place] [facility] Feb 07, 2024 12:30 PM AMBUL[place]ORY - NONE [place] [facility] Feb 18, 2024 08:00 AM AM[place] - MEDICINE [place] [facility] Mar 05, 2024 07:30 AM AM[place]ORY - [place]IC[place] [facility] Mar 05, 2024 08:30 AM [place]ORY [place]IC[place] [facility] Mar 05, 2024 10:00 AM AM[place]ORY - [place]IC[place] [facility] Mar 09, 2024 08:45 AM AMBULATORY - [place]GERY [place] [facility] Mar 16, 2024 09:00 AM [place]ORY - [place]IC[place] [facility] Mar 16, 2024 10:15 AM AM[place]ORY - NONE [place] [facility] Mar 27, 2024 07:00 AM [place]ORY - NONE [place] [facility] Mar 31, 2024 07:00 AM [place]UL[place]ORY - NONE [place] [facility] Apr 20, 2024 08:00 AM [place]ORY - NONE [place] [facility] Apr 20, 2024 09:30 AM [place] [facility] Apr 22, 2024 09:00 AM AM[place]ORY - NONE [place] [facility] Apr 22, 2024 10:00 AM AM[place]ORY - [place]ICINE [place] [facility] Apr 29, 2024 10:30 AM AMBUL[place]ORY - [place] [facility] May 13, 2024 12:00 PM AMBULATORY - NONE [place] [facility] Lab Results: +/- 30 days of [...] Range Comment Nov 07, 2023 11:14 AM [facility] VIT D 25-OH,TOTAL Specimen Type: SERUM No comment entered. Ordering Provider: ISAEL ALVAREZ Report Released Date/Time: Nov 07, 2023 10:08 AM Reporting Lab: [facility] [id number] Performing Lab: [facility] [id number] VIT D 25-OH,TOTAL 70 ng/mL H 12-50 Nov 07, 2023 09:38 AM [facility] VITAMIN A Specimen Type: SERUM Comment: Vitamin supplementation within 24 hours prior to blood draw may affect the accuracy of the results. This test was developed and its analytical performance characteristics have been determined by [facility] [place], [place]. It has not been cleared or approved by the U.S. Food and Drug Administration. This assay has been validated pursuant to the CLIA regulations and is used for clinical purposes. Test Performed by [facility], [facility], [address] [place] [address] Devante Meyer M.D., Ph.D., Director of Laboratories , CLIA [id number] Ordering Provider: ISAEL ALVAREZ Report Released Date/Time: Jul 11, 2023 10:23 AM Reporting Lab: [facility] [id number] Performing Lab: [facility] [address] [facility] VITAMIN A 58 ug/dL 38-98 Nov 07, 2023 09:38 AM [facility] HEMOGLOBIN A1C Specimen Type: BLOOD Comment: Values [...] Jul 11, 2023 10:23 AM Reporting Lab: [facility] [phone] Performing Lab: [facility] [address] HEMOGLOBIN A1C 6.4 H 4.0-6.0 Social History: [...] 21, 2023 10:30 AM VA-TOBACCO FORMER USER [facility] Tobacco Use History This section includes a history of the smoking, or tobacco-related health factors, that were collected on or before the date of the Encounter. The data comes from the [place] facility where the Encounter took place. Date/Time Smoking Status/Tobacco Use Comment [facility] Aug 21, 2023 10:30 AM VA-TOBACCO QUIT 15 YRS OR MORE [facility] Aug 15, 2022 09:00 AM VA-TOBACCO FORMER USER [facility] Aug 15, 2022 09:00 AM VA-TOBACCO QUIT 15 YRS OR MORE [facility] Aug 21, 2021 01:00 PM VA-TOBACCO FORMER USER [facility] Aug 21, 2021 01:00 PM VA-TOBACCO QUIT 15 YRS OR MORE [facility] Jul 09, 2018 08:58 AM VA-TOBACCO FORMER USER [facility] Jul 09, 2018 08:58 AM VA-TOBACCO QUIT 15 YRS OR MORE [facility] Jul 18, 2017 09:58 AM FORMER TOBACCO USER 7Y OR GREATE R [facility] Aug 14, 2016 10:59 AM FORMER TOBACCO USER 7Y OR GREATE R [facility] Jun 29, 2015 02:03 PM FORMER TOBACCO USER 7Y OR GREATE R [facility] Jan 06, 2014 03:04 PM FORMER TOBACCO USER 7Y OR GREATE R [facility] Jan 04, 2012 08:36 AM FORMER TOBACCO USER 7Y OR GREATE R [facility] Encounter Notes: All associated encounter notes This section contains the clinical notes associated to the Encounter. Date/Time Encounter Note(s) Provider Source Nov 13, 2023 11:14 AM PHARMACY NOTE: LOCAL TITLE: CCC: PHARMACY I STANDARD TITLE: PHARMACY NOTE DATE OF NOTE: NOV 13, 2023@11:14 ENTRY DATE: NOV 13, 2023@11:14:39 AUTHOR: NASIR LENNON EXP COSIGNER: URGENCY: STATUS: COMPLETED Medication renewal request - non-controlled substance: Second request: Alerting the provider of a second request from patient. Please review patient's request and renew if deemed appropriate. Added both provider and nurse to this note as part of escalation process to prevent further delays. Patient is requesting a refill of the following prescription(s) : CALCIUM CITRATE TAB 200MG TAKE TWO TABLETS BY MOUTH TWICE A DAY FOR CALCIUM SUPPLEMENT Quantity: 400 Refills: 3 Indication: FOR CALCIUM SUPPLEMENT *Flagged - Med renewal request - Activity: 09/11/2022 11:55 New Order entered by ABBY COHEN (RESIDENT) Order Text: CALCIUM CITRATE TAB 200MG TAKE TWO TABLETS BY MOUTH TWICE A DAY Quantity: 360 Refills: 3 Indication: FOR CALCIUM SUPPLEMENT Nature of Order: ELECTRONICALLY ENTERED Elec Signature: ABBY COHEN (RESIDENT) on 09/11/2022 11:59 09/13/2022 12:15 Change entered by SOCRATES ZAMAN (PHARMACIST) Changed to: CALCIUM CITRATE TAB 200MG TAKE TWO TABLETS BY MOUTH TWICE A DAY FOR CALCIUM SUPPLEMENT Quantity: 400 Refills: 3 Indication: FOR CALCIUM SUPPLEMENT Nature of Order: SERVICE CORRECTION Signature: SERVICE CORRECTION TO SIGNED ORDER Flagged by: TAMMIE GRUBER (PHARMACY TECHNI) on 10/30/2023 13:47 Med renewal request If clinically appropriate, please refill. Meds to be MAILED Medications: Active and Recently Outpatient Medications (excluding Supplies): Active Outpatient Medications Status 1) ACETAMINOPHEN [...] TABLET BY ACTIVE MOUTH AT BEDTIME 5) CHOLECALCIF 25MCG (D3-1,000UNIT) TAB TAKE ONE TABLET ACTIVE BY MOUTH EVERY DAY 6) CYANOCOBALAMIN 1000MCG TAB TAKE ONE TABLET BY MOUTH ACTIVE EVERY DAY 7) LIDOCAINE 5% PATCH APPLY 1 PATCH TOPICALLY EVERY DAY ACTIVE FOR UP TO 12 HOURS FOR PAIN 8) MAGNESIUM OXIDE 400MG TAB TAKE TWO TABLETS BY MOUTH ACTIVE (S) EVERY DAY FOR SUPPLEMENTATION 9) METFORMIN HCL 500MG TAB TAKE ONE TABLET BY MOUTH ACTIVE (S) EVERY DAY FOR DIABETES *NOTE:WHOLE TABLETS 10) METOPROLOL SUCCINATE 25MG SA TAB TAKE THREE TABLETS ACTIVE BY MOUTH EVERY DAY FOR HEART AND BLOOD PRESSURE 11) MULTIVIT/OPHTH AREDS2/LUTE/ZEAX CAP/TAB TAKE 1 ACTIVE CAP/TAB BY MOUTH TWICE A DAY WITH MEALS 12) OMEPRAZOLE 40MG EC CAP TAKE ONE CAPSULE BY MOUTH ACTIVE TWICE A DAY ON AN EMPTY STOMACH, AT LEAST 30 MINUTES PRIOR TO A MEAL TO DECREASE STOMACH ACID 13) VENLAFAXINE HCL 150MG 24HR SA CAP TAKE ONE CAPSULE BY ACTIVE (S) MOUTH EVERY DAY Inactive Outpatient Medications Status 1) FERROUS SULFATE 325MG TAB TAKE ONE TABLET BY MOUTH EVERY DAY IRON DEFICIENCY 2) SEMAGLUTIDE 0.25MG/0.375ML INJ PEN 3ML INJECT 0.5MG UNDER THE SKIN EVERY WEEK DIABETES AND WEIGHT LOSS 15 Total Medications Future appointments: 11/20/2023 09:00 DOROTHY NEURO DUNN 12/05/2023 09:30 DOROTHY HONEYCUTT 1P-[id number] 03/05/2024 07:30 MSP 79 LAB 03/05/2024 08:30 DOROTHY METABOLIC KIM 79 [facility] staff are not able to make outbound calls to patients. If patient requires follow up, patient's care team is responsible for the follow up. /pablo/ NASIR LENNON CPHT V23 [facility] ELECTRICAL CONTINUITY TESTER Signed: 11/13/2023 11:17 Receipt Acknowledged By: 11/13/2023 11:26 /es/ MARIUSZ PHILLIPS MD PHYSICIAN 11/13/2023 15:58 /es/ Brittani Hernandez, RN Registered Nurse * AWAITING SIGNATURE * ABBY COHEN WENDY K [facility]
--- OUTSIDE RECORDS SUMMARY | 2024-07-08 19:57 | XMS_ITS | Encounter Summary ---
Author Name [facility] [place] Organization [facility] [place] Address [address] [place] [address] Care Team Providers Care Human Factors Scientist Name Role Phone MARIUSZ PHILLIPS Primary Care [...] PART B Sep 26, 2012 PART B [id number] [phone] JAUN THOMPSON JR PATIENT MEDICARE (WNR) MEDICARE (M) PART A Sep 26, 2012 PART A [id number] [phone] JUAN THOMPSON JR PATIENT Selected Encounter This section includes the information on record at [place] for the Encounter. Date/Time Encounter Type Encounter Description Reason Provider Source November 28, 2023 12:08 AM Outpatient Encounter TELEPHONE TRIAGE KHANH LANTIGUA E Encounter Template Text not used by [facility] Plan of Treatment: Future Appointments (+ 6 months) and Future Tests (+/- 45 days) The Plan of Treatment section includes future care activities for the patient [facility] [place] [facility] This section includes future appointments and [...] 05, 2023 09:30 AM AMBULATORY [place] [facility] Feb 07, 2024 11:00 AM AM[place]ORY [place]ONE [place] [facility] Feb 07, 2024 11:30 AM AM[place] [facility] Feb 07, 2024 12:30 PM AMBULATORY - NONE [place] [facility] Feb 18, 2024 08:00 AM [place]BUL[place]ORY [place]IC[place] [facility] Mar 05, 2024 07:30 AM AM[place]ORY [place]IC[place] [facility] Mar 05, 2024 08:30 AM AM[place]ORY [place]IC[place] [facility] Mar 05, 2024 10:00 AM AM[place]ULATORY - [place]IC[place] [facility] Mar 09, 2024 08:45 AM AMBULATORY - [place]GERY [place] [facility] Mar 16, 2024 09:00 AM [place]ORY [place]IC[place] [facility] Mar 16, 2024 10:15 AM AMBULATORY - NONE [place] [facility] Mar 27, 2024 07:00 AM AMBULATORY [...] - MEDICINE [place] [facility] Lab Results: +/- 30 days of [...] Range Comment Nov 07, 2023 11:[address] [facility] VIT D 25-OH,TOTAL Specimen Type: SERUM No comment entered. Ordering Provider: ISAEL ALVAREZ Report Released Date/Time: Nov 07, 2023 10:08 AM Reporting Lab: [facility] [id number] Performing Lab: [facility] [id number] VIT D 25-OH,TOTAL 70 ng/mL H 12-50 Nov 07, 2023 09:[address] [facility] VITAMIN A Specimen Type: SERUM Comment: Vitamin supplementation within 24 hours prior to blood draw may affect the accuracy of the results. This test was developed and its analytical performance characteristics have been determined by [facility] [place], [place]. It has not been cleared or approved by the U.S. Food and Drug Administration. This assay has been validated pursuant to the CLIA regulations and is used for clinical purposes. Test Performed by [facility], [facility], [address] [place] [address] Devante Meyer M.D., Ph.D., Director of Laboratories , CLIA [id number] Ordering Provider: ISAEL ALVAREZ Report Released Date/Time: Jul 11, 2023 10:23 AM Reporting Lab: [facility] [id number] Performing Lab: [facility] [id number] [facility] VITAMIN A 58 ug/dL 38-98 Nov 07, 2023 09:[address] [facility] HEMOGLOBIN A1C Specimen Type: [...] 11, 2023 10:23 AM Reporting Lab: [facility] [address] [facility] [id number] Performing Lab: [facility] [id number] HEMOGLOBIN A1C 6.4 H 4.0-6.0 Social History: [...] 10:30 AM VA-TOBACCO FORMER USER [facility] [...] 7Y OR GREATE R [facility] Encounter Notes: All associated encounter notes This section contains the clinical notes associated to the Encounter. Date/Time Encounter Note(s) Provider Source November 27, 2023 11:08 PM ADMINISTRATIVE NOT E: LOCAL TITLE: CCC: SCHEDULING ADMINISTRATION STANDARD TITLE: ADMINISTRATIVE NOTE DATE OF NOTE: NOVEMBER 27, 2023@23:08:35 ENTRY DATE: NOVEMBER 27, 2023@23:08:35 AUTHOR: KHANH LANTIGUA EXP COSIGNER: URGENCY: STATUS: COMPLETED Patient Demographics Patient Name: JUAN THOMPSON Patient Primary Phone: [phone] Patient Primary [address]: [address] [place] [id number] Patient : 1945 Patient Age: 78 Caller/Recipient Relation to Patient: Self Administrative Administrative Note Reason: Other Administrative Note Comments: [place] is calling to check the status of getting scheduled for the following appointment DOROTHY FIGUEROA. Please advise . Thank you. /aneesh LANTIGUA Advanced Analytics Specialist Signed: 11/27/2023 23:08 Receipt Acknowledged By: 11/28/2023 10:31 /pablo/ [facility] KHANH RAMIREZ [facility]
--- OUTSIDE RECORDS SUMMARY | 2024-07-08 19:58 | XMS_ITS | Encounter Summary ---
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 Date/Time Primary/Secondary Diagnosis Diagnosis Name Provider Source December 05, 2023 10:38 AM PRIMARY prison (current) use of anticoagulants TRACI MENDEZ [facility] December 05, 2023 10:38 AM SECONDARY Encounter for therapeutic drug level monitoring TRACI MENDEZ [facility] December 05, 2023 10:38 AM SECONDARY Unspecified atrial fibrillation BENJAMINTRACI LIN [facility] Plan of Treatment: Future Appointments (+ 6 months) and Future Tests (+/- 45 days) The Plan of Treatment section includes future care activities for the patient from all [place] [facility]. This section includes future appointments and future orders which are active, pending or scheduled. Future Appointments This section includes appointments that were scheduled to occur 6 months from the date of the Encounter, up to a maximum of 20 appointments. The data comes from all [facility]. Appointment Date/Time Appointment Type Appointme nt Facility Name Feb 07, 2024 11:00 AM AM[place]ORY - [place]ONE [place] [facility] Feb 07, 2024 11:30 AM [place] [facility] Feb 07, 2024 12:30 [...] MEDICINE [place] [facility] Mar 09, 2024 08:45 AM AM[place]UL[place]ORY - [place] [facility] Mar 16, 2024 09:00 AM [place]ORY [place]IC[place] [facility] Mar 16, 2024 10:15 AM AM[place]ULATORY - NONE [place] [facility] Mar 27, 2024 07:00 AM AM[place]ORY - NONE [place] [facility] Mar 31, 2024 07:00 AM AM[place]ORY - NONE [place] [facility] Apr 20, 2024 08:00 AM [place]ORY - NONE [place] [facility] Apr 20, 2024 09:30 AM [place] [facility] Apr 22, 2024 09:00 AM [place]ORY - [place] [facility] Apr 22, 2024 10:00 AM [place]IC[place] [facility] Apr 29, 2024 10:30 AM AMBULATORY - SURGERY [place] [facility] May 13, 2024 12:00 PM AMBULATORY - NONE [place] [facility] May 13, 2024 01:00 PM [place]ORY - [place]ICINE [place] [facility] May 20, 2024 09:45 [facility] Lab Results: +/- 30 days [...] Range Comment Nov 07, 2023 11:14 AM [facility] VIT D 25-OH,TOTAL Specimen Type: SERUM No comment entered. Ordering Provider: ISAEL ALVAREZ Report Released Date/Time: Nov 07, 2023 10:08 AM Reporting Lab: [facility] [id number] Performing Lab: [facility] [id number] VIT D 25-OH,TOTAL 70 ng/mL H 12-50 Nov 07, 2023 09:38 AM [facility] VITAMIN A Specimen Type: SERUM Comment: Vitamin supplementation within 24 hours prior to blood draw may affect the accuracy of the results. This test was developed and its analytical performance characteristics have been determined by [facility] [place], [place]. It has not been cleared or approved by the U.S. Food and Drug Administration. This assay has been validated pursuant to the CLIA regulations and is used for clinical purposes. Test Performed by [facility], [facility], [address] [place], [place] Devante Meyer M.D., Ph.D., Director of Laboratories , CLIA [id number] Ordering Provider: ISAEL ALVAREZ Report Released Date/Time: Jul 11, 2023 10:23 AM Reporting Lab: [facility] [id number] Performing Lab: [facility] [id number] [facility] VITAMIN A 58 ug/dL 38-98 Nov 07, 2023 09:38 AM [facility] HEMOGLOBIN A1C Specimen Type: BLOOD [...] Jul 11, 2023 10:23 AM Reporting Lab: [facility] [phone] Performing Lab: [facility] [address] HEMOGLOBIN A1C 6.4 H 4.0-6.0 Social History: [...] Current Smoking Status Comment Aj itstephanie Aug 21, 2023 10:30 AM VA-TOBACCO FORMER USER [facility] Tobacco Use History This section includes a history of the smoking, or tobacco-related health factors, that were collected on or before the date of the Encounter. The data comes from the [place] facility where the Encounter took place. Date/Time Smoking Status/Tobacco Use Comment F acility Aug 21, 2023 10:30 AM VA-TOBACCO QUIT 15 YRS OR MORE [facility] Aug 15, 2022 09:00 AM VA-TOBACCO FORMER USER [facility] Aug 15, 2022 09:00 AM VA-TOBACCO QUIT 15 YRS OR MORE [facility] Aug 21, 2021 01:00 PM VA-TOBACCO FORMER USER [facility] Aug 21, 2021 01:00 PM VA-TOBACCO QUIT 15 YRS OR MORE [facility] Jul 09, 2018 08:58 AM VA-TOBACCO FORMER USER [facility] Jul 09, 2018 08:58 AM VA-TOBACCO QUIT 15 YRS OR MORE [facility] Jul 18, 2017 09:58 AM FORMER TOBACCO USER 7Y OR KIAH R [facility] Aug 14, 2016 10:59 AM FORMER TOBACCO USER 7Y OR KIAH Khan [facility] Jun 29, 2015 02:03 PM FORMER TOBACCO USER 7Y OR KIAH R [facility] Jan 06, 2014 03:04 PM FORMER TOBACCO USER 7Y OR KIAH R [facility] Jan 04, 2012 08:36 AM FORMER TOBACCO USER 7Y OR KIAH Khan [facility] Encounter Notes: All associated encounter notes This section contains the clinical notes associated to the Encounter. Date/Time Encounter Note(s) Provider Source December 05, 2023 10:34 AM PHARMACY OUTPATIEN T MEDICATION MGT NOTE: LOCAL TITLE: PHARMACY ANTICOAGULATION CLINIC F/U STANDARD TITLE: PHARMACY OUTPATIENT MEDICATION MGT NOTE DATE OF NOTE: DECEMBER 05, 2023@10:34 ENTRY DATE: DECEMBER 05, 2023@10:34:29 AUTHOR: COBY MENDEZ COSIGNER: URGENCY: STATUS: COMPLETED DOAC DASHBOARD ALERT - Anticoagulant: Apixaban 5mg q12H - Indication: A-fib - Relevant PMH: - Per pt: TIA (2011) - Ina-en-Y bariatric surgery - dementia - Prior major bleeds: none - Prior anticoagulants: o warfarin (08/2013-10/2019) - Date started: 10/2019 ([place] back to [place] 09/2021) - Anticipated duration: indefinite - HAS-BLED = age, anemia, +/-TIA = 2-3: MODERATE/HIGH RISK - [id number] = age++, HTN, DM, +/-TIA ++ = 4-6: LOW/MODERATE RISK - Notes: - Difficult to reach by phone and has trouble getting his VM - Legal guardianship: Ivette Otto Care Coordination: - CHILD CARE COUNSELOR: Home [facility] visits weekly ([phone]) SUBJECTIVE/OBJECTIVE: Obtained from chart review. Dashboard flags: - Renewal due Labs ==== Age: 78 Height: 68 in [172.7 cm] (10/09/2023 09:43) Weight: 177.7 lb [80.60 kg] (11/07/2023 10:15) Collection DT Specimen Test Name Result Units Ref Range 10/09/2023 08:35 PLASMA CREATININE 1.1 mg/dL 0.7 - 1.2 08/21/2023 13:36 PLASMA CREATININE 1.2 mg/dL 0.7 - 1.2 07/11/2023 10:38 PLASMA CREATININE 1.2 mg/dL 0.7 - 1.2 02/13/2023 15:07 PLASMA CREATININE 1.3 H mg/dL 0.7 - 1.2 11/06/2022 12:38 PLASMA CREATININE 1.1 mg/dL 0.7 - 1.2 08/28/2022 10:51 PLASMA CREATININE 1.1 mg/dL 0.7 - 1.2 07/11/2022 10:05 PLASMA CREATININE 1.1 mg/dL 0.7 - 1.2 04/11/2022 12:30 PLASMA CREATININE 1.2 mg/dL 0.7 - 1.2 10/04/2021 15:59 PLASMA CREATININE 1.1 mg/dL 0.7 - 1.2 10/27/2018 08:51 PLASMA!! CREATININE 1.0 mg/dL .7 - 1.2 Cockcroft & Gault (Actual body weight) = 65.1 mL/min Collection DT Spec WBC HGB HCT PLT MCV NEUT LYMPHS 10/09/2023 08:35 BLOOD 7.18 11.7 L 36.0 L 266 91.4 08/21/2023 13:36 BLOOD 6.27 11.7 L 35.6 L 248 90.6 43.2 41.9 07/11/2023 10:37 BLOOD 7.56 12.5 L 39.1 L 249 92.0 02/13/2023 15:07 BLOOD 7.60 12.6 L 39.7 L 246 88.2 58.9 28.8 Collection DT Specimen Test Name Result Units Ref Range 11/06/2022 12:38 PLASMA BILIRUBIN, TOTAL 0.5 mg/dL 0.2 - 1.2 11/06/2022 12:38 PLASMA ALKALINE PHOSPHAT 149 U/L 40 - 150 11/06/2022 12:38 PLASMA AST/SGOT 16 U/L Ref: <=34 11/06/2022 12:38 PLASMA ALT/SGPT 19 U/L Ref: <=55 ASSESSMENT/PLAN: Per chart review, appropriate for continued anticoagulant use. No contraindications noted. Benefit of therapy continues to outweigh risk. Lab monitoring current and without concern. - Continue anticoagulation at current dose. - Monitor dashboard for labs, drug interactions, and compliance. - Dashboard flags reviewed/cleared, if applicable. - Lab monitoring frequency defined by dashboard or as clinically indicated. - Rx reviewed - renewed for 90ds w/ refills. Time spent: 10 minutes /pablo/ Coby Mendez PharmD Clinical Pharmacist - [facility] clinic Signed: 12/05/2023 10:38 COBY MENDEZ [facility]
--- OUTSIDE RECORDS SUMMARY | 2024-07-08 19:59 | XMS_ITS | Encounter Summary ---
Author Name [facility] [place] Organization [facility] [place] [place] Address [address] [place] [address] Care Team Providers Care News Copy Editor Name Role Phone MARIUSZ PHILLIPS Primary Care [...] PART A Sep 26, 2012 PART A [id number] [phone] JUAN THOMPSON JR PATIENT MEDICARE (WNR) MEDICARE (M) PART B Sep 26, 2012 PART B [id number] JUAN THOMPSON JR PATIENT Selected Encounter This section includes the information on record at [place] for the Encounter. Date/Time Encounter Type Encounter Description Reason Provider Source Feb 06, 2024 08:26 AM Outpatient Encounter TELEPHONE TRIAGE [place] Encounter Template Text not used by [place] Plan of Treatment: Future Appointments (+ 6 months) and Future Tests (+/- 45 days) The Plan of Treatment section includes future care activities for the patient [facility] [place] [facility] This section includes future appointments and future orders which are active, pending or scheduled. Future Appointments This section includes appointments that were scheduled to occur 6 months from the date of the Encounter, up to a maximum of 20 appointments. The data comes from all [place] treatment facilities. Appointment Date/Time Appointment Type Appointme nt Facility Name Feb 07, 2024 11:00 AM AM[place]ORY [place] NONE [place] [facility] Feb 07, 2024 11:30 AM AM[place] [facility] Feb 07, 2024 12:30 PM AMB[place]ORY - NONE [place] [facility] Feb 18, 2024 08:00 AM [place]IC[place] [facility] Mar 05, 2024 07:30 AM [place]IC[place] [facility] Mar 05, 2024 08:30 AM [place]IC[place] [facility] Mar 05, 2024 10:00 AM [place]ORY [place]IC[place] [facility] Mar 09, 2024 08:45 AM [place]ORY [place] [facility] Mar 16, 2024 09:00 AM [place]IC[place] [facility] Mar 16, 2024 10:15 AM AMBULATORY - NONE [place] [facility] Mar 27, 2024 07:00 AM AM[place]ORY - NONE [place] [facility] Mar 31, 2024 07:00 AM AM[place]ORY - NONE [place] [facility] Apr 20, 2024 08:00 AM AM[place]ORY - [place]ONE [place] [facility] Apr 20, 2024 09:30 AM [place] [facility] Apr 22, 2024 09:00 AM AM[place]ORY [place] NONE [place] [facility] Apr 22, 2024 10:00 AM [place]IC[place] [facility] Apr 29, 2024 10:30 AM [place]GERY [place] [facility] May 13, 2024 12:00 PM AMBUL[place]ORY - NONE [place] [facility] May 13, 2024 01:00 PM [place]ICINE [place] [facility] May 20, 2024 09:45 AM AMBULATORY - NONE [place] [facility] Active, Pending, and Scheduled Orders This section includes a listing of several types of active, pending, and scheduled orders, including clinic medications orders, diagnostic test orders, procedure orders and consult orders; where the start date of the order is 45 days before the date of the Encounter or 45 days after the date of theEncounter. The data comes from all [place] treatment facilities. Test Date/Time Test Type Test Details Facility Name Mar 18, 2024 05:05 PM Consult Order CARDIAC EC HO OUTPT-ALL SITES Cons [employer] Supervisor's Choice [facility] Lab Results: +/- [...] Range Comment Mar 05, 2024 09:55 AM [facility] VITAMIN B-1,BLOOD Specimen Type: BLOOD Comment: Vitamin supplementation within 24 hours prior to blood draw may affect the accuracy of the results. This test was developed and its analytical performance characteristics have been determined by [employer] [place], [place]. It has not been cleared or approved by the U.S. Food and Drug Administration. This assay has been validated pursuant to the CLIA regulations and is used for clinical purposes. Test Performed by [facility], [facility], [address] [place] [address] Devante Meyer M.D., Ph.D., Director of Laboratories , CLIA [id number] Ordering Provider: INDERJIT MORGAN Report Released Date/Time: Mar 05, 2024 09:40 AM Reporting Lab: [facility] [address] Performing Lab: [address] VITAMIN B-1,BLOOD 125 nmol/L 78-185 Mar 05, 2024 09:55 AM [facility] VITAMIN A Specimen Type: SERUM Comment: Vitamin supplementation within 24 hours prior to blood draw may affect the accuracy of the results. This test was developed and its analytical performance characteristics have been determined by [employer] [place], [place]. It has not been cleared or approved by the U.S. Food and Drug Administration. This assay has been validated pursuant to the CLIA regulations and is used for clinical purposes. Test Performed by [facility], [facility], [address] [place] [address] Devante Meyer M.D., Ph.D., Director of Laboratories , CLIA [id number] Ordering Provider: INDERJIT MORGAN Report Released Date/Time: Mar 05, 2024 09:40 AM Reporting Lab: [facility] [id number] Performing Lab: [address] VITAMIN A 54 ug/dL 38-98 Mar 05, 2024 09:55 AM [facility] ZINC Specimen Type: SERUM Comment: This test was developed and its analytical performance characteristics have been determined by [employer] [place], [place]. It has not been cleared or approved by the U.S. Food and Drug Administration. This assay has been validated pursuant to the CLIA regulations and is used for clinical purposes. Test Performed by [facility], [facility], [address] [place] [address] Devante Meyer M.D., Ph.D., Director of Laboratories , CLIA [id number] Ordering Provider: INDERJIT MORGAN Report Released Date/Time: Mar 05, 2024 09:40 AM Reporting Lab: [facility] [address] Performing Lab: [address] ZINC 96 ug/dL 60-130 Mar 05, 2024 09:55 AM [facility] COPPER Specimen Type: PLASMA Comment: This test was developed and its analytical performance characteristics have been determined by [employer] [place], [place]. It has not been cleared or approved by the U.S. Food and Drug Administration. This assay has been validated pursuant to the CLIA regulations and is used for clinical purposes. Test Performed by [facility], [employer] [place], [address] [place] [address] Devante Meyer M.D., Ph.D., Director of Laboratories , CLIA [id number] Ordering Provider: INDERJIT MORGAN Report Released Date/Time: Mar 05, 2024 09:40 AM Reporting Lab: [facility] [address] Performing Lab: [facility] [address] [facility] [address] COPPER 99 ug/dL 70-175 Mar 05, 2024 09:55 AM [facility] TSH W/REFLEX TO FREE T4 Specimen Type: PLASMA No comment entered. Ordering Provider: INDERJIT MORGAN Report Released Date/Time: Mar 05, 2024 09:40 AM Reporting Lab: [facility] [address] Performing Lab: [facility] [address] TSH 2.01 u[IU]/mL 0.35-4.94 Mar 05, 2024 09:55 AM [facility] FERRITIN Specimen Type: SERUM No comment entered. Ordering Provider: INDERJIT MORGAN Report Released Date/Time: Mar 05, 2024 09:40 AM Reporting Lab: [facility] [address] Performing Lab: [facility] [address] FERRITIN 191.6 ng/mL 21.8-274.7 Mar 05, 2024 09:55 AM [facility] PRE-ALBUMIN Specimen Type: SERUM No comment entered. Ordering Provider: INDERJIT MORGAN Report Released Date/Time: Mar 05, 2024 09:40 AM Reporting Lab: [facility] [address] Performing Lab: [facility] [address] PRE-ALBUMIN 19.9 mg/dL 14.0-45.0 Mar 05, 2024 09:55 AM [facility] FOLATE Specimen Type: SERUM No comment entered. Ordering Provider: INDERJIT MORGAN Report Released Date/Time: Mar 05, 2024 09:40 AM Reporting Lab: [facility] [address] Performing Lab: [place] [address] FOLATE 14.5 ng/mL >7.0 Mar 05, 2024 09:55 AM [facility] LIPID PANEL,NON-FASTING Specimen Type: PLASMA No comment entered. Ordering Provider: INDERJIT MORGAN Report Released Date/Time: Mar 05, 2024 09:40 AM Reporting Lab: [facility] [address] Performing Lab: [facility] [address] CHOLESTEROL 111 mg/dL <199 .HDL 45 mg/dL >40 LDL CALCULATION 54 mg/dL <99 VLDL CALCULATION 12 mg/dL <29 NON HDL CHOLESTEROL 66 mg/dL <129 TRIG(NON FASTING) 60 mg/dL <149 Mar 05, 2024 09:55 AM [facility] B 12 Specimen Type: PLASMA No comment entered. Ordering Provider: INDERJIT MORGAN Report Released Date/Time: Mar 05, 2024 09:40 AM Reporting Lab: [facility] [address] Performing Lab: [facility] [address] B 12 864 pg/mL H 213-816 Mar 05, 2024 09:55 AM [facility] VIT D 25-OH,TOTAL Specimen Type: SERUM No comment entered. Ordering Provider: INDERJIT MORGAN Report Released Date/Time: Mar 05, 2024 09:40 AM Reporting Lab: [facility] [address] Performing Lab: [facility] [address] VIT D 25-OH,TOTAL 71 ng/mL H 12-50 Mar 05, 2024 09:55 AM [facility] COMPREHENSIVE METABOLIC PANEL+MG Specimen Type: PLASMA No comment entered. Ordering Provider: INDERJIT MORGAN Report Released Date/Time: Mar 05, 2024 09:40 AM Reporting Lab: [facility] [address] Performing Lab: [facility] [address] CREATININE 1.1 mg/dL 0.7-1.2 UREA NITROGEN 19 [...] 70 >60 Mar 05, 2024 09:55 AM [facility] CBC & DIFF Specimen Type: BLOOD Comment: Automated Differential Performed Ordering Provider: INDERJIT MORGAN Report Released Date/Time: Mar 05, 2024 09:40 AM Reporting Lab: [facility] [address] Performing Lab: [facility] [address] WBC 6.85 10*3/uL 4.0-11.0 RBC 4.20 10*6/uL [...] 10*3/uL 0-0.1 Mar 05, 2024 09:55 AM [facility] PTH-N-TACT Specimen Type: SERUM No comment entered. Ordering Provider: INDERJIT MORGAN Report Released Date/Time: Mar 05, 2024 09:40 AM Reporting Lab: [facility] [address] Performing Lab: [facility] [address] PTH-N-TACT 26.5 pg/mL 8.7-77.1 Mar 05, 2024 09:55 AM [facility] CALCIUM Specimen Type: PLASMA No comment entered. Ordering Provider: INDERJIT MORGAN Report Released Date/Time: Mar 05, 2024 09:40 AM Reporting Lab: [facility] [address] Performing Lab: [facility] [address] CALCIUM 9.6 mg/dL 8.4-10.2 Mar 05, 2024 09:55 AM [facility] IRON GROUP Specimen Type: SERUM No comment entered. Ordering Provider: INDERJIT MORGAN Report Released Date/Time: Mar 05, 2024 09:40 AM Reporting Lab: [facility] [address] Performing Lab: [facility] [address] IRON 59 ug/dL L 65-175 TIBC,CALCULATE D 258 ug/dL 250-425 FERRITIN 191.6 ng/mL 21.8-274.7 IRON SATURATION 23 20-50 TRANSFERRIN 206 mg/dL 163-382 Mar 05, 2024 09:55 AM [facility] MAGNESIUM Specimen Type: PLASMA No comment entered. Ordering Provider: INDERJIT MORGAN Report Released Date/Time: Mar 05, 2024 09:40 AM Reporting Lab: [facility] [address] Performing Lab: [facility] [address] MAGNESIUM 1.4 mg/dL L 1.6-2.6 Mar 05, 2024 09:54 AM [facility] VITAMIN A Specimen Type: SERUM Comment: Vitamin supplementation within 24 hours prior to blood draw may affect the accuracy of the results. This test was developed and its analytical performance characteristics have been determined by [employer] [place], [place]. It has not been cleared or approved by the U.S. Food and Drug Administration. This assay has been validated pursuant to the CLIA regulations and is used for clinical purposes. Test Performed by [facility], [facility], [address] [place], [place] Devante Meyer M.D., Ph.D., Director of Laboratories , [facility] [id number] Ordering Provider: INDERJIT MORGAN Report Released Date/Time: Mar 05, 2024 09:40 AM Reporting Lab: [facility] [address] Performing Lab: [facility] [address] [facility] VITAMIN A 54 ug/dL 38-98 Mar 05, 2024 07:35 AM [facility] HEMOGLOBIN A1C Specimen Type: BLOOD Comment: Values [...] Nov 07, 2023 10:56 AM Reporting Lab: [facility] [address] Performing Lab: [facility] [address] HEMOGLOBIN A1C 6.6 H 4.0-6.0 Social History: [...] USER 7Y OR GREATE R [facility] Radiology Reports: +/- 30 days of [...] treatment facilities. Date/Time Radiology Report Provider Source Feb 07, 2024 12:25 PM SPINE LUMBOSACRAL 2 OR 3 VIEWS: JUAN THOMPSON [id number] -1945 M Exm Date: FEB 07, 2024@12:25 Req Phys: PATITO FIGUEROA Loc: [facility] [place] (Req'g Loc Img Loc: MAIN X-RAY Service: [place] [address] (Case [id number] COMPLETE) SPINE LUMBOSACRAL 2 OR 3 VIEWS (RAD Detailed) CPT:49111 Proc Modifiers : Standing Reason for Study: [...] 07, 2024 Date Verified: FEB 07, 2024 [employer] E-Sig:/ES/SWATHI STACY MD Report: SPINE LUMBOSACRAL 2 OR 3 VIEWS 02/07/2024 INDICATION: radiating right lower extremity pain COMPARISON: None. FINDINGS: Five lumbar vertebral bodies. Small T12 ribs. Lordosis normal. Mild S-shaped asymmetry convex right superiorly and convex left inferiorly. Vertebral body heights are maintained. Hgem-xk-ecmtypae diffuse disc space narrowing. Modest degree of facet arthropathy. No acute superimposed bony finding. Moderate aortic calcification. Normal caliber. Clips from cholecystectomy. Stool impaction in the colon. Advanced degenerative change of the right hip. 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 No acute bony finding. Advanced degenerative change of the right hip. Primary Interpreting Staff: SWTAHI STACY MD, RADIOLOGIST ([employer]) /[place] [facility] Feb 07, 2024 10:22 AM HIP RIGHT 2 VIEWS W/PELVIS: JUAN THOMPSON [id number] -1945 M Ex Date: FEB 07, 2024@10:22 Req Phys: CAROLINAPATITO Christos Pat Loc: V23 [facility] PHONE CCC RN (Req'g Lo Img Loc: MAIN X-RAY Service: [place] [address] (Case [id number] COMPLETE) HIP RIGHT 2 VIEWS W/PELVIS (RAD Detailed) CPT:40903 Reason for Study: pain Clinical History: pain Responsible provider name and phone number to notify for critical findings if other than user placing the order and pager listed below: User placing orders pager: LAST CREATININE 1.1 (10/09/23) Report Status: Verified Date Reported: FEB 07, 2024 Date Verified: FEB 07, 2024 [employer] E-Sig:/ES/LYNNE MARTÍNEZ DO Report: EXAMINATION: HIP RIGHT [...] Primary Interpreting Staff: LYNNE MARTÍNEZ DO, RADIOLOGIST ([employer]) /DDS LYNNE MARTÍNEZ [facility] Encounter Notes: All associated encounter notes This section contains the clinical notes associated to the Encounter. Date/Time Encounter Note(s) Provider Source Feb 06, 2024 08:26 AM RN PROGRESS NOTE: LOCAL TITLE: CCC: CLINICAL TRIAGE STANDARD TITLE: RN PROGRESS NOTE DATE OF NOTE: FEB 06, 2024@08:26:25 ENTRY DATE: FEB 06, 2024@08:26:25 AUTHOR: [place] COSIGNER: URGENCY: STATUS: COMPLETED Patient Demographics Patient Name: JUAN THOMPSON Patient Primary [address]: [address] [place] [address] Patient Primary Phone: [phone] Patient : 1945 Patient Age: 78 Call Back Number: [phone] Caller/Recipient Relation to Patient: Self Emergency Contact: SIRIA THOMPSON Nursing Plan and Disposition Other course(s) of action Generated msg to PACT/Provider Nurse Summary Nurse Summary: PATIENT CONCERN/DURATION/ONSET: [place] calling stating he has an orthopedic appointment tomorrow and is wondering if he needs x rays prior. He claims the appointment is to discuss his hip pain, left > right. relies on transportation and is expecting to arrive at [place] at 1115 but states his ride is able to drive him there an hour earlier if necessary. 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 Advised caller note placed and sent to appropriate team for follow-up. Caller verbalized understanding through teach back method at time of call and anticipates a return call to discuss at [phone]. Non-Triage/Non-Symptom Call Generated msg to PACT/Provider-NonTriage Clinical Contact Center Codes Clinic/Location: V23 [facility] PHONE CCC RN /pablo/ SADE [place] RN [facility]IL[facility] VISN 23 DAYTIME SIGNALER Signed: 02/06/2024 08:26 Receipt Acknowledged By: 02/06/2024 09:22 /pablo/ RENU MAHAJAN RN 02/06/2024 14:13 /pablo/ RENU LEON, RN REGISTERED NURSE SADE [place] [facility]
--- OUTSIDE RECORDS SUMMARY | 2024-07-08 19:59 | XMS_ITS | Encounter Summary ---
Author Name [facility] [place] [place] [facility] [place] Address [address] [place] [address] Care Team Providers Care Language Path Name Role Phone MARIUSZ PHILLIPS Primary Care [...] PART A Sep 26, 2012 PART A [id number] [phone] JUAN THOMPSON JR PATIENT MEDICARE (WNR) MEDICARE (M) PART B Sep 26, 2012 PART B [id number] JUAN THOMPSON JR PATIENT Selected Encounter This section includes the information on record at [place] for the Encounter. Date/Time Encounter Type Encounter Description Reason Pro vider Source Feb 06, 2024 04:17 PM Outpatient Encounter PRIMARY CARE/MEDICINE IHE Encounter Template Text not used by [place] Plan of Treatment: Future Appointments (+ 6 months) and Future Tests (+/- 45 days) The Plan of Treatment section includes future care activities [place] the [facility] [place] [facility]. This section includes future appointments and future [...] 11:00 AM AM[facility]ORY - NONE [place] [facility] Feb 07, 2024 11:30 AM AM[place] [place] [facility] Feb 07, 2024 12:30 PM AMBULATORY - NONE [facility] Feb 18, 2024 08:00 AM AMBUL[place]ORY [place]ICINE [facility] [facility] [facility] Mar 05, 2024 07:30 AM AMBULATORY - [place]ICINE [place] [facility] Mar 05, 2024 08:30 AM AMBUL[facility]ORY [place]IC[facility] [place] [facility] [facility] Mar 05, 2024 10:00 AM AMBULATORY - [facility]ICINE [place] [facility] [facility] Mar 09, 2024 08:45 AM AMBULATORY - SURGERY [place] [facility] Mar 16, 2024 09:00 AM AM[facility]ULATORY [place]ICINE [place] [facility] [facility] Mar 16, 2024 10:15 AM AMBULATORY - NONE [facility] [facility] Mar 27, 2024 07:00 AM AMBULATORY - NONE [place] [facility] Mar 31, 2024 07:00 AM AMBULATORY - NONE [facility] [facility] Apr 20, 2024 08:00 AM AMBULATORY - NONE [facility] [facility] Apr 20, 2024 09:30 AM [place] [facility] Apr 22, 2024 09:00 AM AMBULATORY - NONE [place] [facility] Apr 22, 2024 10:00 AM [place]ORY [place]IC[place] [facility] Apr 29, 2024 10:30 AM AMBULATORY - SURGERY [place] [facility] May 13, 2024 12:00 PM AMBULATORY - NONE [facility] [facility] May 13, 2024 01:00 PM AM[place]ULATORY - [place]ICINE [place] [facility] [facility] May 20, 2024 09:45 AM AMBULATORY - NONE [place] [facility] Active, Pending, and Scheduled Orders [...] Order CARDIAC EC HO OUTPT-ALL SITES Cons Infection Control Manager's Choice [facility] Lab Results: +/- [...] analytical performance characteristics have been determined by [facility] [place]. It has not been cleared or approved by the U.S. Food and Drug Administration. This assay has been validated pursuant to the CLIA regulations and is used for clinical purposes. Test Performed by [facility], [facility] [place], [address] [place] [address] Devante Meyer M.D., Ph.D., Director of Laboratories , CLIA [id number] Ordering Provider: INDERJIT MORGAN Report Released Date/Time: Mar 05, 2024 09:40 AM Reporting Lab: [facility] [id number] Performing Lab: [address] VITAMIN B-1,BLOOD 125 nmol/L 78-185 Mar 05, 2024 09:55 AM [facility] VITAMIN A Specimen Type: SERUM Comment: Vitamin supplementation within 24 hours prior to blood draw may affect the accuracy of the results. This test was developed and its analytical performance characteristics have been determined by [facility] [place]. It has not been cleared or approved by the U.S. Food and Drug Administration. This assay has been validated pursuant to the CLIA regulations and is used for clinical purposes. Test Performed by [facility], [facility] [employer] [place], [address] [place] [address] Devante Meyer M.D., Ph.D., Director of Laboratories , CLIA [id number] Ordering Provider: INDERJIT MORGAN Report Released Date/Time: Mar 05, 2024 09:40 AM Reporting Lab: [facility] [id number] Performing Lab: [address] VITAMIN A 54 ug/dL 38-98 Mar 05, 2024 09:55 AM [facility] ZINC Specimen Type: SERUM Comment: This test was developed and its analytical performance characteristics have been determined by [facility] [place]. It has not been cleared or approved by the U.S. Food and Drug Administration. This assay has been validated pursuant to the CLIA regulations and is used for clinical purposes. Test Performed by [facility] [place], [facility] [employer] [place], [address] [place] [address] Devante Meyer M.D., Ph.D., Director of Laboratories , CLIA [id number] Ordering Provider: INDERJIT MORGAN Report Released Date/Time: Mar 05, 2024 09:40 AM Reporting Lab: [facility] [id number] Performing Lab: [address] ZINC 96 ug/dL 60-130 Mar 05, 2024 09:55 AM [facility] COPPER Specimen Type: PLASMA Comment: This test was developed and its analytical performance characteristics have been determined by [facility] [place]. It has not been cleared or approved by the U.S. Food and Drug Administration. This assay has been validated pursuant to the CLIA regulations and is used for clinical purposes. Test Performed by [facility], [facility] [employer] [place], [address] [place] [address] Devante Meyer M.D., Ph.D., Director of Laboratories , CLIA [id number] Ordering Provider: INDERJIT MORGAN Report Released Date/Time: Mar 05, 2024 09:40 AM Reporting Lab: [facility] [phone] Performing Lab: [facility] [address] [facility] [address] COPPER 99 ug/dL 70-175 Mar 05, 2024 09:55 AM [facility] TSH W/REFLEX TO FREE T4 Specimen Type: PLASMA No comment entered. Ordering Provider: INDERJIT MORGAN Report Released Date/Time: Mar 05, 2024 09:40 AM Reporting Lab: [facility] [address] Performing Lab: [facility] [address] TSH 2.01 u[IU]/mL 0.35-4.94 Mar 05, 2024 09:55 AM [facility] FERRITIN Specimen Type: SERUM No comment entered. Ordering Provider: INDERJIT MORGAN Report Released Date/Time: Mar 05, 2024 09:40 AM Reporting Lab: [facility] [address] Performing Lab: [facility] [address] FERRITIN 191.6 ng/mL 21.8-274.7 Mar 05, 2024 09:55 AM [facility] PRE-ALBUMIN Specimen Type: SERUM No comment entered. Ordering Provider: INDERJIT MORGAN Report Released Date/Time: Mar 05, 2024 09:40 AM Reporting Lab: [facility] [address] Performing Lab: [facility] [address] PRE-ALBUMIN 19.9 mg/dL 14.0-45.0 Mar 05, 2024 09:55 AM [facility] FOLATE Specimen Type: SERUM No comment entered. Ordering Provider: INDERJIT MORGAN Report Released Date/Time: Mar 05, 2024 09:40 AM Reporting Lab: [facility] [address] Performing Lab: [place] [phone] FOLATE 14.5 ng/mL >7.0 Mar 05, 2024 09:55 AM [facility] LIPID PANEL,NON-FASTING Specimen Type: PLASMA No comment entered. Ordering Provider: INDERJIT MORGAN Report Released Date/Time: Mar 05, 2024 09:40 AM Reporting Lab: [facility] [address] Performing Lab: [facility] [address] CHOLESTEROL 111 mg/dL <199 .HDL 45 mg/dL >40 LDL CALCULATION 54 mg/dL <99 VLDL CALCULATION 12 mg/dL <29 NON HDL CHOLESTEROL 66 mg/dL <129 TRIG(NON FASTING) 60 mg/dL <149 Mar 05, 2024 09:55 AM [facility] B 12 Specimen Type: PLASMA No comment entered. Ordering Provider: INDERJIT MORGAN Report Released Date/Time: Mar 05, 2024 09:40 AM Reporting Lab: [facility] [address] Performing Lab: [facility] [address] B 12 864 pg/mL H 213-816 Mar 05, 2024 09:55 AM [facility] VIT D 25-OH,TOTAL Specimen Type: SERUM No comment entered. Ordering Provider: INDERJIT MORGAN Report Released Date/Time: Mar 05, 2024 09:40 AM Reporting Lab: [facility] [address] Performing Lab: [facility] [address] VIT D 25-OH,TOTAL 71 ng/mL H 12-50 Mar 05, 2024 09:55 AM [facility] COMPREHENSIVE METABOLIC PANEL+MG Specimen Type: PLASMA No comment entered. Ordering Provider: INDERJIT MORGAN Report Released Date/Time: Mar 05, 2024 09:40 AM Reporting Lab: [facility] [address] Performing Lab: [facility] [address] CREATININE 1.1 mg/dL 0.7-1.2 UREA NITROGEN 19 [...] 2024 09:40 AM Reporting Lab: [facility] [address] Performing Lab: [facility] [address] WBC 6.85 10*3/uL 4.0-11.0 RBC 4.20 10*6/uL [...] 2024 09:40 AM Reporting Lab: [facility] [address] Performing Lab: [facility] [address] PTH-N-TACT 26.5 pg/mL 8.7-77.1 Mar 05, 2024 09:55 AM [facility] CALCIUM Specimen Type: PLASMA No comment entered. Ordering Provider: INDERJIT MORGAN Report Released Date/Time: Mar 05, 2024 09:40 AM Reporting Lab: [facility] [address] Performing Lab: [facility] [address] CALCIUM 9.6 mg/dL 8.4-10.2 Mar 05, 2024 09:55 AM [facility] IRON GROUP Specimen Type: SERUM No comment entered. Ordering Provider: INDERJIT MORGAN Report Released Date/Time: Mar 05, 2024 09:40 AM Reporting Lab: [facility] [address] Performing Lab: [facility] [address] IRON 59 ug/dL L 65-175 TIBC,CALCULATE D 258 ug/dL 250-425 FERRITIN 191.6 ng/mL 21.8-274.7 IRON SATURATION 23 20-50 TRANSFERRIN 206 mg/dL 163-382 Mar 05, 2024 09:55 AM [facility] MAGNESIUM Specimen Type: PLASMA No comment entered. Ordering Provider: INDERJIT MORGAN Report Released Date/Time: Mar 05, 2024 09:40 AM Reporting Lab: [facility] [address] Performing Lab: [facility] [address] MAGNESIUM 1.4 mg/dL L 1.6-2.6 Mar 05, 2024 09:54 AM [facility] VITAMIN A Specimen Type: SERUM Comment: Vitamin supplementation within 24 hours prior to blood draw may affect the accuracy of the results. This test was developed and its analytical performance characteristics have been determined by [facility] [place]. It has not been cleared or approved by the U.S. Food and Drug Administration. This assay has been validated pursuant to the CLIA regulations and is used for clinical purposes. Test Performed by [facility] [place], [facility], [address] [place], [place] Devante Meyer M.D., Ph.D., Director of Laboratories , [facility] [id number] Ordering Provider: INDERJIT MORGAN Report Released Date/Time: Mar 05, 2024 09:40 AM Reporting Lab: [facility] [address] Performing Lab: [facility] [address] [facility] VITAMIN A 54 ug/dL 38-98 Mar [...] Nov 07, 2023 10:56 AM Reporting Lab: [facility] [address] Performing Lab: [facility] [address] HEMOGLOBIN A1C 6.6 H 4.0-6.0 Social History: [...] LUMBOSACRAL 2 OR 3 VIEWS: JUAN THOMPSON [id number] -1945 M Exm Date: FEB 07, 2024@12:25 Req Phys: PATITO FIGUEROA Loc: [facility] [place] (Req'g Loc Img Loc: MAIN X-RAY Service: [place] [address] (Case [id number] COMPLETE) SPINE LUMBOSACRAL 2 OR 3 VIEWS (RAD Detailed) CPT:65129 Proc Modifiers : Standing Reason for Study: [...] 07, 2024 Date Verified: FEB 07, 2024 Mat Packer E-Sig:/ES/SWATHI STACY MD Report: SPINE LUMBOSACRAL 2 OR 3 VIEWS 02/07/2024 INDICATION: radiating right lower extremity pain COMPARISON: None. FINDINGS: Five lumbar vertebral bodies. Small T12 ribs. Lordosis normal. Mild S-shaped asymmetry convex right superiorly and convex left inferiorly. Vertebral body heights are maintained. [id number] diffuse disc space narrowing. Modest degree of facet arthropathy. No acute superimposed bony finding. Moderate aortic calcification. Normal caliber. Clips from cholecystectomy. Stool impaction in the colon. Advanced degenerative change of the right hip. 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 No acute bony finding. Advanced degenerative change of the right hip. Primary Interpreting Staff: SWATHI STACY MD, RADIOLOGIST (Mat Packer) /[facility] Feb 07, 2024 10:22 AM HIP RIGHT 2 VIEWS W/PELVIS: JUAN THOMPSON [id number] -1945 M Ex Date: FEB 07, 2024@10:22 Req Phys: CAROLINAPATITO Christos Pat Loc: V23 [facility] PHONE CCC RN (Req'g Lo Img Loc: MAIN X-RAY Service: [place] [address] (Case [id number] COMPLETE) HIP RIGHT 2 VIEWS W/PELVIS (RAD Detailed) CPT:17560 Reason for Study: pain Clinical History: pain Responsible provider name and phone number to notify for critical findings if other than user placing the order and pager listed below: User placing orders pager: LAST CREATININE 1.1 (10/09/23) Report Status: Verified Date Reported: FEB 07, 2024 Date Verified: FEB 07, 2024 Mat Packer E-Sig:/ES/LYNNE MARTÍNEZ DO Report: EXAMINATION: HIP RIGHT [...] Primary Interpreting Staff: LYNNE MARTÍNEZ DO, RADIOLOGIST (Mat Packer) /DDS LYNNE MARTÍNEZ [facility] Encounter Notes: All associated encounter notes This section contains the clinical notes associated to the Encounter. Date/Time Encounter Note(s) Provider Source Feb 06, 2024 04:17 PM HOME HEALTH REFERR AL NOTE: LOCAL TITLE: [facility] HOME HEALTH CARE STANDARD TITLE: HOME HEALTH REFERRAL NOTE DATE OF NOTE: FEB 06, 2024@16:17 ENTRY DATE: FEB 06, 2024@16:17:23 AUTHOR: ESSENCE BORREGO EXP COSIGNER: URGENCY: STATUS: COMPLETED HOME HEALTH CARE CERTIFICATION AND PLAN OF CARE SIGNED BY: Dr. Phillips for [facility] in [place], [place] Certification period From: Dec To: Feb /pablo/ ESSENCE BORREGO JR. [facility] Signed: 02/06/2024 16:19 ESSENCE BORREGO JR [facility]
--- OUTSIDE RECORDS SUMMARY | 2024-07-08 20:03 | XMS_ITS | Encounter Summary ---
Author Name [facility] [place] [facility] [place] [facility] [place] Address [address] [place] [address] Care Team Providers Care Matrix Repairer Name Role Phone MARIUSZ PHILLIPS Primary Care [...] PART A Sep 26, 2012 PART A [id number] [phone] JUAN THOMSPON JR PATIENT MEDICARE (WNR) MEDICARE ([place]) PART B Sep 26, 2012 PART B [id number] JUAN THOMPSON JR PATIENT Selected Encounter This section includes the information on record at [place] for the Encounter. Date/Time Encounter Type Encounter Description Reason Pro vider Source IHE Encounter Template Text not used by [place]
--- OUTSIDE RECORDS SUMMARY | 2024-07-08 20:09 | XMS_ITS | Encounter Summary ---
Author Name [facility] [place] Organization [facility] [place] Address [address] [facility] [place] [place] [address] Care Team Providers Care Lead Data Entry Operator Name Role Phone SONIA PHILLIPS Primary [...] PART A Sep 26, 2012 PART A [id number] [facility] [phone] JUAN THOMPSON JR PATIENT MEDICARE (WNR) MEDICARE (M) PART B Sep 26, 2012 PART B [id number] [phone] JUAN THOMPSON JR PATIENT Selected Encounter This section includes the information on record at [place] for the Encounter. Date/Time Encounter Type Encounter Description Reason Provider Source Jul 08, 2024 11:07 AM Outpatient Encounter ADMIN PAT ACTIVTIES (MASNONCT) PATI ORTEGA Baldo Encounter Template Text not used by DC Plan of Treatment: Future Appointments (+ 6 months) and Future Tests (+/- 45 days) The Plan of Treatment section includes future care activities for the patient from all [facility]. This section includes future appointments and future orders which are active, pending or scheduled. Future Appointments This section includes appointments that were scheduled to occur 6 months from the date of the Encounter, up to a maximum of 20 appointments. The data comes from all [facility]. Appointment Date/Time Appointment Type Appointme nt Facility Name Jul 16, 2024 07:30 AM [facility] Jul 16, 2024 08:30 AM [facility] Jul 16, 2024 09:00 AM AMBULATORY - [facility]RY [place] [facility] Jul 16, 2024 09:30 AM AMBULATORY - PSYCHIATRY [facility] Aug 14, 2024 03:00 PM AMBULATORY - NONE [place] [facility] Oct 07, 2024 09:00 AM AMBULATORY - MEDICINE [facility] Oct 19, 2024 09:30 AM AMBULATORY - NEUROLOGY [facility] Active, Pending, and Scheduled Orders This section includes a listing of several types of active, pending, and scheduled orders, including clinic medications orders, diagnostic test orders, procedure orders and consult orders; where the start date of the order is 45 days before the date of the Encounter or 45 days after the date of theEncounter. The data comes from all [facility]. Test Date/Time Test Type Test Details Facility Name Jun 19, 2024 04:32 PM Consult Order COMMUNITY CARE-NUCLEAR MEDICINE Cons Literacy Teacher's Choice [facility] Lab Results: +/- 30 days of [...] Range Comment Jun 12, 2024 07:22 AM [facility] PHOSPHORUS Specimen Type: PLASMA No comment entered. Ordering Provider: AYANA MICHELLE Report Released Date/Time: May 26, 2024 09:45 AM Reporting Lab: [facility] [id number] Performing Lab: [facility] [id number] PHOSPHORUS 3.4 mg/dL 2.3-4.3 Jun 12, 2024 07:22 AM [facility] RETICS Specimen Type: BLOOD Comment: Automated Differential Performed Ordering Provider: AYANA MICHELLE Report Released Date/Time: May 26, 2024 09:53 AM Reporting Lab: [facility] [id number] Performing Lab: [facility] [id number] ABS RETIC 0.0429 0.0300-0.1 000 .RETICULOCYTE 1.06 0.6-2.0 IMMATURE RETIC 5.9 1.0-14.0 .RETICULOCYTE HE 30.5 pg 28.2-36.6 Jun 12, 2024 07:22 AM [facility] COMPREHENSIVE METABOLIC PANEL+MG Specimen Type: PLASMA No comment entered. Ordering Provider: AYANA MICHELLE Report Released Date/Time: May 26, 2024 09:45 AM Reporting Lab: [facility] [id number] Performing Lab: [facility] [address] CREATININE 1.0 mg/dL 0.7-1.2 UREA NITROGEN 22 [...] 78 >60 Jun 12, 2024 07:22 AM [facility] CBC & DIFF Specimen Type: BLOOD Comment: Automated Differential Performed Ordering Provider: AYANA MICHELLE Report Released Date/Time: May 26, 2024 09:45 AM Reporting Lab: [facility] [phone] Performing Lab: [facility] [id number] WBC 6.4 4.0-11.0 RBC 4.05 L 4.60-6.20 [...] 21, 2023 10:30 AM VA-TOBACCO FORMER [facility]ER [facility] OR MORE [facility] Aug 15, 2022 09:00 AM VA-TOBACCO FORMER USER [facility] Aug 15, 2022 09:00 AM VA-TOBACCO QUIT 15 YRS OR MORE [facility] Aug 21, 2021 01:00 PM VA-TOBACCO FORMER USER [facility] Aug 21, 2021 01:00 PM VA-TOBACCO QUIT 15 YRS OR MORE [facility] Jul 09, 2018 08:58 AM VA-TOBACCO FORMER USER [facility] Jul 09, 2018 08:58 AM VA-TOBACCO QUIT [...] OR GREATE R [facility] Pathology Reports: +/- 30 days of the [...] the Encounter. The data comes from all [facility] facilities. Date/Time Pathology Report Provider Source Jun 16, 2024 12:06 PM LR SURGICAL PATHOL OGY REPORT: LOCAL TITLE: LR SURGICAL PATHOLOGY REPORT STANDARD TITLE: PATHOLOGY REPORT DATE OF NOTE: JUN 16, 2024@12:06:01 ENTRY DATE: JUN 16, 2024@12:06:01 AUTHOR: BRIELLE AMIN COSIGNER: URGENCY: STATUS: COMPLETED $APHDR Reporting Lab: [facility] [CLIA# [id number]] [place] [address] - - - - - - - [...] in cassette B. Grossing performed by: DAVID, Administrative Resources Associate Entered by: DAVID, Administrative Resources Associate Grossing confirmed by: Brielle Amin, Hematopathologist This report includes the results of laboratory tests utilizing Analyte Specific Reagents or commercially available antibodies ([place] and Lambda CISH Probes). These tests have been developed, fully validated, and their optimal performance characteristics determined by the [facility]. Such tests have not [...] see also concurrent negative flow cytometry study ([id number]). Imaging studies concerning for possible lytic lesions [...] controls for CD3, CD20, CD34, CD61, CD138, [place] and lambda light chains, and pankeratin are [...] PATHOLOGIST, PATHOLOGY & LABORATORY [facility] Jun 16, 2024@12:06 Performing Laboratory: Surgical Pathology Report Performed By: [facility] [CLIA# [id number]] [place] [address] $FTR - - - - - - - - - - - - - - - - - - - - - - - - - - - - - - - - - - - - - - - - (End of report) BRIELLE AMIN [place] [facility] [place] Jun 16, 2024 - - - - - - - - - - - - - - - - - - - - - - - - - - - - - - - - - - - - - - - - DONNAJUAN OLMOS JR STANDARD FORM 515 ID:[id number] SEX:M :1945 AGE: 78 LOC:[id number] PCP: Sonia Phillips /pablo/ BRIELLE AMIN MD STAFF PATHOLOGIST, PATHOLOGY & LABORATORY [facility] [place] Signed: 06/16/2024 12:06 BRIELLE AMIN [facility] Jun 16, 2024 12:02 PM LR SURGICAL PATHOL OGY REPORT: LOCAL TITLE: LR SURGICAL PATHOLOGY REPORT STANDARD TITLE: PATHOLOGY REPORT DATE OF NOTE: JUN 16, 2024@12:02:40 ENTRY DATE: JUN 16, 2024@12:02:40 AUTHOR: BRIELLE AMIN EXP COSIGNER: URGENCY: STATUS: COMPLETED $APHDR Reporting Lab: [facility] [CLIA# [id number]] [place] [address] - - - - - - - [...] morphologic correlation see bone marrow biopsy report [id number]. Summary: On CD45 vs. side scatter analysis, [...] PATHOLOGIST, PATHOLOGY & LABORATORY [facility] [place]igned Jun 16, 2024@12:02 Performing Laboratory: Surgical Pathology Report Performed By: [facility] [CLIA# [id number]] [place] [address] $FTR - - - - - - - - - - - - - - - - - - - - - - - - - - - - - - - - - - - - - - - - (End of report) BRIELLE AMIN MD [facility] [place] Jun 16, 2024 - - - - - - - - - - - - - - - - - - - - - - - - - - - - - - - - - - - - - - - - JUAN THOMPSON JR STANDARD FORM 515 ID:[id number] SEX:M :1945 AGE: 78 LOC:[id number] PCP: Sonia Phillips /aneesh AMIN MD STAFF PATHOLOGIST, PATHOLOGY & LABORATORY [facility] [place] Signed: 06/16/2024 12:02 BRIELLE AMIN [facility] Encounter Notes: All associated encounter notes This section contains the clinical notes associated to the Encounter. Date/Time Encounter Note(s) Provider Source Jul 08, 2024 03:25 PM ADDENDUM: LOCAL TITLE: Addendum STANDARD TITLE: ADDENDUM DATE OF NOTE: JUL 08, 2024@15:25:50 ENTRY DATE: JUL 08, 2024@15:25:52 AUTHOR: CIPRIANO KIMBLE COSIGNER: URGENCY: STATUS: COMPLETED Records requested and will be uploaded via Ensequence when received. /pablo/ CIPRIANO KIMBLE .YenyAdvanced Snow Technician Signed: 07/08/2024 15:26 Receipt Acknowledged By: 07/08/2024 15:30 /pablo/ RENU KEVIN RN for SIOMARA SNYDER --- Original Document --- 07/06/24 [facility] SELF PRESENTING CARE COORD PLAN NOTE: Emergency Notification Intake Date Presenting to the Facility: Jun Method of Contact: Notified from [employer] worklist Notification ID: [id number] [facility] Referral #: [facility] Name: Hospital: [facility] Address: City: [place] State: [place] Zip Code: Phone : [facility] Point of Contact: Name: Phone: Chief complaint: UNKNOWN Primary Diagnosis: Disposition Discharged Date of discharge: Jun Discharge to home 1703 Clinical Review /pablo/ ELISE ADAMS Weight Inspector(AOD) Signed: 07/08/2024 13:11 Receipt Acknowledged By: 07/08/2024 14:04 /pablo/ Pati Ortega RN BSN sausage stuffer Chemical Librarian 07/08/2024 ADDENDUM STATUS: COMPLETED Notification acknowledged by RN. Medical and clinical information not reviewed. /pablo/ Pati Ortega RN BSN sausage stuffer Chemical Librarian Signed: 07/08/2024 14:05 CIPRIANO KIMBLE [facility] Jul 06, 2024 01:09 PM NONVA NOTE: LOCAL TITLE: [facility] SELF PRESENTING CARE COORD PLAN STANDARD TITLE: NONVA NOTE DATE OF NOTE: JUL 06, 2024@13:09 ENTRY DATE: JUL 08, 2024@13:09:34 AUTHOR: ELISE ADAMS EXP COSIGNER: URGENCY: STATUS: COMPLETED [facility] SELF PRESENTING CARE COORD PLAN NOTE Has ADDENDA Emergency Notification Intake Date Presenting to the Facility: Jun Method of Contact: Notified from ECR worklist Notification ID: [id number] [facility] Hospital[facility] Address: City: [place] State: [place] Zip Code: Phone : Community Facility Point of Contact: Name: Phone: Chief complaint: UNKNOWN Primary Diagnosis: Disposition Discharged Date of discharge: Jun Discharge to home 1703 Clinical Review /pablo/ ELISE ADAMS Weight Inspector(AOD) Signed: 07/08/2024 13:11 Receipt Acknowledged By: 07/08/2024 14:04 /es/ Pati Ortega, INFORMATION SECURITY ENGINEER sausage stuffer Chemical Librarian 07/08/2024 ADDENDUM STATUS: COMPLETED Notification acknowledged by RN. Medical and clinical information not reviewed. /pablo/ Pati Ortega INFORMATION SECURITY ENGINEER sausage stuffer Chemical Librarian Signed: 07/08/2024 14:05 07/08/2024 ADDENDUM STATUS: COMPLETED Records requested and will be uploaded via Ensequence when received. /pablo/ CIPRIANO KIMBLE ..WillisAdvanced Snow Technician Signed: 07/08/2024 15:26 Receipt Acknowledged By: 07/08/2024 15:30 /es/ RENU KEVIN RN for ELISE DENNIS [facility]
== END 2024-07-06 18:19 | disposition home or self-care (01) ==
PROVIDERS: Emergency Provider Family Medicine; PCP Hospitalist
DX: R60.0 Localized edema (principal)
CPT/HCPCS: 36415; 71045; 80053; 83605; 83880; 84484; 85025; 86140; 93005; 94761; 99284

== ENCOUNTER 2024-09-05 08:55 | Outpatient (CLI) | payer MEDICARE, MEDICAID, SELFPAY | END 2024-09-05 08:56 | disposition home or self-care (01) | LOC: AMB 09-09 15:55 | PROVIDERS: PCP Hospitalist; Visit Provider Family Medicine | DX: R53.1 Weakness (principal); R41.82 Altered mental status, unspecified | CPT/HCPCS: A0425; A0427 ==

== ENCOUNTER 2024-09-05 09:24 | Inpatient (IN) | payer MEDICARE, MEDICAID, SELFPAY ==
[2024-09-05] VITALS (32 sets, daily range): BP systolic 79–138; BP diastolic 42–76; PULSE 84–109; RESP 18–24; TEMP 36.7–39.8; O2SAT 91–97; BMI 25.8
--- OUTSIDE RECORDS SUMMARY | 2024-09-05 09:26 | XMS_ITS ---
Author Organization [facility] [employer] [facility] Address Unknown Allergies, Adverse Reactions, Alerts Substance Reaction Status Noted Date Resolved Date Sulfa Antibiotics Anaphylaxis active 11/24/2020 Problems Problem Status Start Date End Date TYPE 2 DIABETES MELLITUS WIT H HYPERGLYCEMIA (Primary) (E11.65 - ICD-10-CM) ACTIVE 11/24/2020 OTHER INTERVERTEBRAL DISC DI SPLACEMENT, LUMBAR REGION (M51.26 - ICD-10-CM) ACTIVE 11/24/2020 CHRONIC ATRIAL FIBRILLATION, UNSPECIFIED (I48.20 - ICD-10-CM) ACTIVE 11/24/2020 BIPOLAR II DISORDER (F31.81 - ICD-10-CM) ACTIVE 11/24/2020 ESSENTIAL (PRIMARY) HYPERTENSION (I10 - ICD-10-CM) ACT JENNIFER 11/24/2020 ANXIETY DISORDER, UNSPECIFIED (F41.9 - ICD-10-CM) ACTI VE 11/24/2020 OBESITY, UNSPECIFIED (E66.9 - ICD-10-CM) ACTIVE 11/24/2020 GASTRO-ESOPHAGEAL REFLUX DIS EASE WITHOUT ESOPHAGITIS (K21.9 - ICD-10-CM) ACTIVE 11/24/2020 ANEMIA IN OTHER CHRONIC DISE ASES CLASSIFIED ELSEWHERE (D63.8 - ICD-10-CM) ACTIVE 07/05/2021 MAJOR DEPRESSIVE DISORDER, R ECURRENT, MODERATE (F33.1 - ICD-10-CM) ACTIVE 11/28/2020 BRONCHIECTASIS, UNCOMPLICATED (J47.9 - ICD-10-CM) ACTI VE 11/24/2020 DEHYDRATION (E86.0 - ICD-10-CM) ACTIVE 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) ACTIVE 11/24/2020 PRIMARY OSTEOARTHRITIS, LEFT SHOULDER (M19.012 - ICD-10-CM) ACTIVE 11/24/2020 BARIATRIC SURGERY STATUS (Z98.84 - ICD-10-CM) ACTIVE 11/24/2020 MAJOR DEPRESSIVE DISORDER, S CYNTHIA EPISODE, UNSPECIFIED (F32.9 - ICD-10-CM) ACTIVE 11/24/2020 UNSPECIFIED SYMPTOMS AND SIG NS INVOLVING COGNITIVE FUNCTIONS AND AWARENESS (R41.9 - ICD-10-CM) ACTIVE 11/24/2020 DELIRIUM DUE TO KNOWN PHYSIO LOGICAL CONDITION (F05 - ICD-10-CM) ACTIVE 11/24/2020 MILD COGNITIVE IMPAIRMENT OF UNCERTAIN OR UNKNOWN ETIOLOGY (G31.84 - ICD-10-CM) ACTIVE 11/24/2020 CHRONIC OBSTRUCTIVE PULMONAR Y DISEASE, UNSPECIFIED (J44.9 - ICD-10-CM) ACTIVE 11/24/2020 Encounters Encounter Performer Performer Role Encounter Diagnoses Location Date Discharge - Discharged to home or self care - Private home/apt. with home health services [facility] [employer] [facility] 11/24/2020 02:30 pm EDT - 08/16/2021 03:15 pm EST Immunizations Vaccine Date Influenza 05/19/2021 06:00 pm EDT Pneumovax Dose 1 05/20/1998 01:00 am EDT TB 2 Step Mantoux Skin Test 12/14/2020 0 7:35 pm EDT TB 2 Step Mantoux Skin Test 11/24/2020 0 7:55 am EDT Pneumovax Dose 2 08/06/2011 01:00 am EST SARS-COV-2 (COVID-19) 10/13/2020 01:00 a m EDT SARS-COV-2 (COVID-19) 09/13/2020 01:00 a m EST COVID Booster Vaccine 07/20/2021 08:13 p m EST Social History
--- NOTE | 2024-09-05 09:45 | CRLHL7_ITS ---
For Patients: As a result of the Century Cures Act, medical imaging exams and procedure reports are released immediately into your electronic medical record. You may view this report before your referring provider. If you have questions, please contact your health care provider. INDICATION: Cough. TECHNIQUE: Chest 1 views. COMPARISON: X-ray chest June 2024. FINDINGS/IMPRESSION: No focal consolidation, effusion or pneumothorax. Borderline cardiomegaly without pulmonary edema. No acute osseous findings. Dictated by Kavita Menendez MD @ 09/05/2024 10:26:38 AM (Electronically Signed)
--- NOTE | 2024-09-05 09:49 | ED_ITS ---
HPI - General Adult General Chief complaint: Fever Stated complaint: fever Time Seen by Provider: 09/05/24 09:25 History of Present Illness HPI narrative: Patient is a 78 year white male with COPD, atrial fibrillation on apixaban, history of pneumonia, history of 2 day history of cough, today weakness today confusion. He reports he has been coughing, he is alert to person but not to place, he was brought in by EMS. She has a significant temperature of 103.7?. He is allergic to sulfa, he has had a cough has been worse as mention he is unable to tell if it has been productive or not. He does not really feel short of breath, he has no chest pain. He has had no leg swelling or edema. Related Data Home Medications ?Medication ?Instructions ?Recorded ?Confirmed apixaban 5 mg tablet (Eliquis) 5 mg PO BID 04/24/23 09/05/24 aripiprazole 15 mg tablet 15 mg PO DAILY 04/24/23 09/05/24 atorvastatin 10 mg tablet 10 mg PO QHS 04/24/23 09/05/24 bupropion HCl 150 mg 24 hr tablet, 150 mg PO QDAY 04/24/23 07/06/24 extended release calcium 500 mg (as 2 tab PO BID 04/24/23 09/05/24 carbonate)-vitamin D3 3.125 mcg (125 unit) tablet cholecalciferol (vitamin D3) 25 2,000 unit PO DAILY 04/24/23 07/06/24 mcg (1,000 unit) tablet cyanocobalamin (vitamin B-12) 1,000 mcg PO DAILY 04/24/23 07/06/24 1,000 mcg tablet magnesium oxide 400 mg (241.3 mg 400 mg PO BID 04/24/23 09/05/24 magnesium) tablet metformin 500 mg tablet,extended 500 mg PO DAILY 04/24/23 09/05/24 release 24 hr metoprolol succinate 50 mg 50 mg PO QDAY 04/24/23 09/05/24 tablet,extended release 24 hr multivitamin 1 tab PO QDAY 04/24/23 07/06/24 mv-mn-folic 200 mcg-vit K 15 1 cap PO BID 04/24/23 07/06/24 mcg-lutein 5 mg-zeaxanthin 1 mg capsule (PreserVision AREDS 2 Plus Multivit) omeprazole 20 mg capsule,delayed 40 mg PO BID 04/24/23 09/05/24 release venlafaxine 150 mg 150 mg PO DAILY 04/24/23 09/05/24 capsule,extended release 24 hr ferrous sulfate 325 mg (65 mg 325 mg PO DAILY 09/30/23 09/05/24 iron) tablet (Daniel-Time) calcium citrate 200 mg PO BID 09/05/24 09/05/24 Previous Rx's ?Medication ?Instructions ?Recorded furosemide 20 mg tablet 20 mg PO DAILY #3 tabs 07/06/24 Allergies Allergy/AdvReac Type Severity Reaction Status Date / Time Sulfa (Sulfonamide Allergy Mild Rash Verified 09/05/24 09:35 Antibiotics) sulfamethoxazole Allergy Mild Rash Verified 09/05/24 09:35 trimethoprim Allergy Mild Rash Verified 09/05/24 09:35 Review of Systems Status of ROS: Reports: 6 or more systems reviewed and unremarkable except as noted in History and below Narrative: Patient denies any urinary symptoms PFSH PFSH Surgical History Hx of appendectomy ?Z90.49 - Acquired absence of other specified parts of digestive tract (ICD- 10) History of carpal tunnel release ?Z98.890 - Other specified postprocedural states (ICD-10) Hx of cholecystectomy ?Z90.49 - Acquired absence of other specified parts of digestive tract (ICD- 10) H/O submandibular gland removal ?Z98.890 - Other specified postprocedural states (ICD-10) ?Z90.89 - Acquired absence of other organs (ICD-10) Hx of hernia repair ?Z98.890 - Other specified postprocedural states (ICD-10) ?Z87.19 - Personal history of other diseases of the digestive system (ICD-10) Hx of tonsillectomy ?Z90.89 - Acquired absence of other organs (ICD-10) History of gastric bypass ?Z98.84 - Bariatric surgery status (ICD-10) Social History Smoking Status: Former smoker Do you use any of these nicotine containing products: None Second hand tobacco smoke exposure: No How often do you have a drink containing alcohol: monthly or less How many standard drinks containing alcohol do you have on a typical day: 1 or 2 How often do you have six or more drinks on one occasion: Never AUDIT-C Alcohol total score: 1 Non-prescribed substance use: denies use service: Yes Exam Narrative: Exam Narrative: Objective: Patient's temp is 103.7? O2 sat is 93% on room air, the patient is very warm to touch, alert to person, he is little bit confused when asked questions but he talks in normal verbiage. HEENT shows dry mucous membranes neck is supple chest diminished air exchange bilaterally heart rate and rhythm regular with occasional ectopic beat and 2/6 systolic murmur Abdomen benign soft no masses Extremities without edema neurologic grossly nonfocal. Const: Vital Signs, click to edit/add: Vital Signs - 24 hr 09/05/24 09:26 09/05/24 11:04 Temperature 103.7 F H 101.8 F H Pulse Rate [Right Pulse Oximeter] 102 H Respiratory Rate 24 Blood Pressure [Le ft Upper Arm] 121/72 Pulse Oximetry 93 Oxygen Delivery Me thod Room Air Course Vital Signs Vital signs: Initial Vital Signs Temperature 103.7 F H 09/05/24 09:26 Temperature Source Temporal Artery Scan 09/05/24 09:26 Pulse Rate 102 H 09/05/24 09:26 Pulse Rhythm Regular 09/05/24 09:26 Respiratory Rate 24 09/05/24 09:26 Blood Pressure 121/72 09/05/24 09:26 Blood Pressure Mean 88 09/05/24 09:26 Blood Pressure Position Supine 09/05/24 09:26 Pulse Oximetry 93 09/05/24 09:26 Oxygen Delivery Method Room Air 09/05/24 09:26 Vital Signs Temperature 103.7 F H 09/05/24 09:26 Pulse Rate 102 H 09/05/24 09:26 Respiratory Rate 24 09/05/24 09:26 Blood Pressure 121/72 09/05/24 09:26 Pulse Oximetry 93 09/05/24 09:26 Oxygen Delivery Method Room Air 09/05/24 09:26 Temperature 101.8 F H 09/05/24 11:04 Pulse Rate 102 H 09/05/24 09:26 Respiratory Rate 24 09/05/24 09:26 Blood Pressure 121/72 09/05/24 09:26 Pulse Oximetry 93 09/05/24 09:26 Oxygen Delivery Method Room Air 09/05/24 09:26 Medications Administered Medications: Generic Name Dose Route Start Last Admin Trade Name Freq PRN Reason Stop Dose Admin Vancomycin/PEG/NADA/Lysine/Water 1.5 gm in 300 mls @ 200 mls/hr 09/05/24 10:30 09/05/24 10:33 Vancomycin 1.5 Gm/300 Ml IVPB 09/05/24 11:59 200 mls/hr ONCE ONE Administration Oseltamivir Phosphate 75 mg 09/05/24 10:51 09/05/24 11:00 Oseltamivir Phosphate 75 Mg Capsule PO 09/05/24 10:52 75 mg ONCE ONE Administration Discontinued Medications Generic Name Dose Route Start Last Admin Trade Name Freq PRN Reason Stop Dose Admin Acetaminophen 1,000 mg 09/05/24 09:44 09/05/24 09:54 Acetaminophen 500 Mg Tablet PO 09/05/24 09:45 1,000 mg ONCE ONE Administration Azithromycin 500 mg 09/05/24 09:44 09/05/24 10:33 Azithromycin 100 Mg/Ml Inj IVPB 09/05/24 09:45 500 mg ONCE ONE Administration Sodium Chloride 1,000 mls @ 6,000 mls/hr 09/05/24 09:45 09/05/24 10:25 0.9 % Sodium Chloride 1000 Ml IV 09/05/24 09:54 Infused .Q10M GOSIA Infusion Piperacillin Sod/Tazobactam 100 mls @ 200 mls/hr 09/05/24 09:44 09/05/24 10:34 Sod 3.375 gm/ Sodium Chloride IVPB 09/05/24 09:45 Infused ONCE ONE Infusion Sodium Chloride 1,000 mls @ 6,000 mls/hr 09/05/24 10:15 09/05/24 10:35 0.9 % Sodium Chloride 1000 Ml IV 09/05/24 10:24 6,000 mls/hr .Q10M GOSIA Administration Sodium Chloride 250 mls @ 250 mls/hr 09/05/24 10:01 09/05/24 10:33 0.9 % Sodium Chloride 250 Ml IV 09/05/24 11:00 250 mls/hr .Q1H ONE Administration Medical Decision Making MDM Narrative Medical decision making narrative: [age] white male with probable sepsis, versus severe viral infection. At this point given his confusion mental status changes, high fever I think treating him aggressively with antibiotics and fluids would be appropriate will give him 30 mL/kilos IV fluid as well as antibiotics including Zithromax for pneumonia. Will do his viral studies, procalcitonin, blood cultures x2, urinalysis, chest x-ray. Patient will likely need admission for monitoring following up on his cultures and antibiotic treatment until deemed not necessary. Will discuss with hospitalist. Will review labs as they return x- ray. EKG by my review shows sinus tachycardia rate 102 beats per minute low- voltage QRS no acute ST T wave changes. Because of the patient's concern ing presentation, will street him for sepsis urgently, will give him 2.25 L of fluid, that just shy of 30 milligrams/kilogram and I think that will be adequate for beti. Given his age I think that is an appropriate amount of fluid. Addendum 10:45 a.m. the patient has a chest x-ray that looks pretty unremarkable although he had a presentation in November of 2022 with a high fever and had right upper lobe pneumonia. At this time he has a little bit dry certainly he could have blossoming pneumonia if he has fluid replaced which we are doing now. He still remains a little bit confused. He has gotten antibiotics. We are waiting a blood test. His lactate is within normal limits white count is normal. Addendum 10:52 a.m.: The patient does come back positive for influenza A he will be started on Tamiflu. I still think given his confusion and history of pneumonia and COPD wished probably watch in the hospital discussed with hospitalist. Lab Data Labs: Lab Results 09/05/24 Range/Units 09:45 WBC 5.26 (4.50-11.00) K/uL RBC 3.69 L (4.30-5.90) m/uL Hgb 10.7 L (13.5-17.5) gm/dL Hct 32.9 L (37.0-53.0) % MCV 89 (80-100) fL MCH 29 (26-34) pg MCHC 33 (32-36) gm/dL RDW Coeff of Maurice 12.8 (11.5-15.5) % Plt Count 215 (140-440) K/uL Neut % (Auto) 77.9 H (42.0-72.0) % Lymph % (Auto) 7.2 L (20-44) % [place] % (Auto) 13.9 H (0.0-11.0) % Eos % (Auto) 0.4 (0.0-7.0) % Baso % (Auto) 0.4 (0.0-3.0) % Neut # (Auto) 4.10 (1.7-7.0) K/uL Lymph # (Auto) 0.40 L (0.90-2.90) K/uL [place] # (Auto) 0.70 (0.00-0.90) K/UL Eos # (Auto) 0.02 (0.00-0.50) K/uL Baso # (Auto) 0.02 (0.00-0.30) K/uL Abs Immat Gran (auto) 0.01 (0.00-0.30) K/uL Imm/Tot Granulo (auto) 0.2 % INR 1.17 H (0.91-1.10) Sodium 132 L (135-149) mmol/L Potassium 4.0 (3.6-5.1) mmol/L Chloride 95 L (96-114) mmol/L Carbon Dioxide 31 (20-32) mmol/L Anion Gap 6 L (7-15) mEq/L BUN 25 (7-30) mg/dL Creatinine 1.1 (0.5-1.5) mg/dL Estimated Creat Clear 55.27 Estimated GFR 70 ml/min Glucose 154 H (60-115) mg/dL Lactate 1.4 (0.5-1.9) mmol/L Calcium 8.4 (8.4-10.6) mg/dL Total Bilirubin 0.3 (0.1-1.5) mg/dL Direct Bilirubin 0.2 (0.0-0.5) mg/dL AST 18 (12-35) U/L ALT 13 (4-50) U/L Alkaline Phosphatase 81 (40-150) U/L C-Reactive Protein 0.8 (0.5-1.0) mg/dL NT-Pro-B Natriuret Pep 1680 pg/mL Total Protein 5.7 L (6.0-8.3) g/dL Albumin 3.7 (3.3-5.0) g/dL Procalcitonin 0.09 (<0.50) ng/mL SARS-CoV-2 (PCR) Negative SARS-CoV-2 (Negative) Influenza Type A (PCR) POSITIVE PCR FLU A A (Negative) Influenza Type B (PCR) Negative PCR FLU B (Negative) RSV (PCR) Negative PCR RSV (Negative) Discharge Plan Discharge Clinical Impression: Fever, Sepsis, Acute confusion Prescriptions: No Action cholecalciferol (vitamin D3) 25 mcg (1,000 unit) tablet 2,000 unit PO DAILY cyanocobalamin (vitamin B-12) 1,000 mcg tablet 1,000 mcg PO DAILY multivitamin Tablet 1 tab PO QDAY venlafaxine 150 mg capsule,extended release 24hr 150 mg PO DAILY PreserVision AREDS 2 Plus MV 200 mcg-15 mcg- 5 mg-1 mg capsule 1 cap PO BID magnesium oxide 400 mg (241.3 mg magnesium) tablet 400 mg PO BID omeprazole 20 mg capsule,delayed release(DR/EC) 40 mg PO BID calcium carbonate-vitamin D3 500 mg-3.125 mcg (125 unit) tablet 2 tab PO BID metformin 500 mg tablet extended release 24 hr 500 mg PO DAILY Eliquis 5 mg tablet 5 mg PO BID aripiprazole 15 mg tablet 15 mg PO DAILY atorvastatin 10 mg tablet 10 mg PO QHS bupropion HCl 150 mg tablet extended release 24 hr 150 mg PO QDAY metoprolol succinate 50 mg tablet extended release 24 hr 50 mg PO QDAY furosemide 20 mg tablet 20 mg PO DAILY Qty: 3 0RF calcium citrate 200 mg (950 mg) tablet 200 mg PO BID ferrous sulfate [Daniel-Time] 325 mg (65 mg iron) tablet 325 mg PO DAILY Follow Up/Referrals: Sonia Ordaz MD [Primary Care Provider] -
[2024-09-05] MEDS: ACETAMINOPHEN 500 MG TABLET 1000 MG PO (09:54)
[2024-09-05] MEDS: 0.9 % SODIUM CHLORIDE 1000 ml 1,000 ML 6000 ML IV ×2 (09:56→10:35)
[2024-09-05] MEDS: PIPERACILLIN/TAZOBACTAM 3.375 GM in 0.9 % SODIUM CHLORIDE Mini-bag 100 ML IVPB (10:04)
[2024-09-05 10:08] LABS: Lactate* 1.4 mmol/L (0.5-1.9)
[2024-09-05 10:13] LABS: Basophils Absolute Auto 0.02 K/uL (0.00-0.30); Basophils Percent Auto 0.4 % (0.0-3.0); Eosinophils Absolute Auto 0.02 K/uL (0.00-0.50); Eosinophils Percent Auto 0.4 % (0.0-7.0); Hematocrit 32.9 % (37.0-53.0); Hemoglobin* 10.7 gm/dL (13.5-17.5); Immature Granulocytes Abs Auto 0.01 K/uL (0.00-0.30); Immature Granulocytes Pct Auto 0.2 %; Lymphocytes Percent Auto 7.2 % (20-44); Mean Corpuscular HGB Conc 33 gm/dL (32-36); Mean Corpuscular Hemoglobin 29 pg (26-34); Mean Corpuscular Volume 89 fL (80-100); Monocytes Percent Auto 13.9 % (0.0-11.0); Neutrophils Percent Auto 77.9 % (42.0-72.0); Platelet Count* 215 K/uL (140-440); RDW Coefficient of Variation % 12.8 % (11.5-15.5); Red Blood Count 3.69 m/uL (4.30-5.90); White Blood Count* 5.26 K/uL (4.50-11.00)
[2024-09-05 10:14] LABS: Slide Review Reflex No
--- OUTSIDE RECORDS SUMMARY | 2024-09-05 10:18 | XMS_ITS | Encounter Summary ---
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 Date/Time Encounter Type Encounter Description Reason Provider Source Aug 31, 2024 09:00 AM NRPSYC TST EVAL PHYS/QHP EA PSYCHOLOGICAL TESTING ICD-10-CM F03.A18 Unspecified dementia, mild, with other behavioral disturb [facility] Encounter Template Text not used by ID Assessments - Encounter Diagnoses This section includes the primary and secondary diagnoses documented for the Encounter. Date/Time Primary/Secondary Diagnosis Diagnosis Name Provider Source Aug 31, 2024 12:21 PM PRIMARY Unspecified dementia, mild, with other behavioral disturb JAMIE LYLES [facility] Aug 31, 2024 12:21 PM SECONDARY Bipolar II disorder JAMIE LYLES [facility] Plan of Treatment: Future Appointments (+ 6 months) and Future Tests (+/- 45 days) The Plan of Treatment section includes future care activities for the patient [facility] This section includes future appointments and future orders which are active, pending or scheduled. Future Appointments This section includes appointments that were scheduled to occur 6 months from the date of the Encounter, up to a maximum of 20 appointments. The data comes from all ID treatment [facility]. Appointment Date/Time Appointment Type Appointme nt Facility Name Sep 03, 2024 08:00 AM AMBULATORY - PSYCHIATRY [facility] Sep 17, 2024 08:00 AM [facility] Sep 17, 2024 09:00 AM [facility] Sep 18, 2024 01:00 PM AMBULATORY - PSYCHIATRY [facility] Sep 24, 2024 07:00 AM [facility] Oct 02, 2024 03:00 PM [facility] Oct 07, 2024 09:00 AM [facility] Oct 19, 2024 09:30 AM AMBULATORY - NEUROLOGY [facility] Feb 17, 2025 10:00 AM [facility] Active, Pending, [...] of theEncounter. The data comes from all ID treatment [facility]. Test Date/Time Test Type Test Details Facility Name Aug 26, 2024 07:52 AM Consult Order [facility] Cons Staff Home Therapy Rn's Choice [facility] Social History: Smoking Status (Most current) and Tobacco Use (All prior to encounter date) This section includes the most current, and the historical, smoking and tobacco- related health factors from the [facility] where the Encounter took place. Current Smoking Status This section includes the most current smoking, or tobacco-related health factor, from the ID facility where the Encounter took place. Date/Time Current Smoking Status Comment Facil ity Aug 21, 2023 10:30 AM VA-TOBACCO FORMER USER [facility] Tobacco Use History This section includes a history of the smoking, or tobacco-related health factors, that were collected on or before the date of the Encounter. The data comes from the ID facility where the Encounter took place. Date/Time Smoking Status/Tobacco Use Comment F acility Aug 21, 2023 10:30 AM VA-TOBACCO QUIT 15 YRS OR MORE [facility] Aug 15, 2022 09:00 AM VA-TOBACCO FORMER USER [facility] Aug 15, 2022 09:00 AM VA-TOBACCO QUIT 15 YRS OR MORE [facility] Aug 21, 2021 01:00 PM VA-TOBACCO FORMER USER [facility] Aug 21, 2021 01:00 PM VA-TOBACCO QUIT 15 YRS OR MORE [facility] Jul 09, 2018 08:58 AM VA-TOBACCO FORMER USER [facility] Jul 09, 2018 08:58 AM VA-TOBACCO QUIT 15 YRS OR MORE [facility] Jul 18, 2017 09:58 AM FORMER TOBACCO USER 7Y OR GREATE R [facility] Aug 14, 2016 10:59 AM FORMER TOBACCO USER 7Y OR GREATE R [facility] Jun 29, 2015 02:03 PM FORMER TOBACCO USER 7Y OR GREATE R [facility] Jan 06, 2014 03:04 PM FORMER TOBACCO USER 7Y OR GREATE R [facility] Jan 04, 2012 08:36 AM FORMER TOBACCO USER 7Y OR GREATE R [facility] Encounter Notes: All associated encounter notes This section contains the clinical notes associated to the Encounter. Date/Time Encounter Note(s) Provider Source Aug 31, 2024 09:00 AM MENTAL HEALTH CONS ULT: LOCAL TITLE: MH NEUROPSYCHOLOGY CONSULT STANDARD TITLE: MENTAL HEALTH CONSULT DATE OF NOTE: AUG 31, 2024@09:00 ENTRY DATE: AUG 31, 2024@12:15:57 AUTHOR: JAMIE LYLES EXP COSIGNER: URGENCY: STATUS: COMPLETED Mr. Thompson was referred for neuropsychological evaluation. He arrived independently and on time and completed a clinical interview and cognitive testing as part of a comprehensive evaluation. CONSENT: The reason for neuropsychological evaluation was reviewed along with information regarding test procedures, benefits/risks associated with neuropsychological testing, and limits of confidentiality. Mr. Thompson voiced understanding and provided verbal consent to participate in the evaluation. Formal consent was obtained from his guardian Kimberly Cline on 08/27 via telephone. SUICIDE/HOMICIDE RISK ASSESSMENT: Risk factors: Age, gender, race, MH diagnosis, remote history of suicide attempt Protective factors: Denied SI/HI, stable housing and finances, support from guardian, social work professor, rep payee, future-oriented, engaged in care Risk Determination: Suicide: Acute = low. Chronic = low. Homicide: Acute = low. Chronic = low. PROCEDURES: Clinical Interview Total time: 60 minutes Neurobehavioral status exam (28019) 1 Neuropsychological testing/scoring by Psychologist (total time): 180 minutes Initial 30-minutes (03920): 1 * Subsequent 30-min increments (43440): 5 Neuropsychological test evaluation services (total time): 240-minutes First hour (38941): 1 * Additional hours (43544): 3 PLAN: A comprehensive report with final diagnostic impressions and treatment recommendations will be addended to this note. Mr. Thompson agreed to a feedback appointment on 09/18 at 1pm via telephone. Suicide Screen: C-SSRS Screening [place]-Suicide Severity Rating Scale (C-SSRS Screener) 1. Over [...] this within the past 3 months? No /pablo/ JAMIE LYLES, PHD, LP, ABPP STAFF NEUROPSYCHOLIGST Signed: 08/31/2024 12:21 JAMIE LYLES [facility]
--- OUTSIDE RECORDS SUMMARY | 2024-09-05 10:19 | XMS_ITS | Encounter Summary ---
Author Name [facility] Organization [facility] Address [address] [place] [address] Care Team Providers Care Freight Receiver Name Role Phone SONIA PHILLIPS Primary Care Provider RACHEL Winslow Unavailable [...] PART B Sep 26, 2012 PART B [id number] [facility] [phone] JUAN THOMPSON JR PATIENT MEDICARE (WNR) MEDICARE (M) PART A Sep 26, 2012 PART A [id number] [phone] JUAN THOMPSON JR PATIENT Selected Encounter This section includes the information on record at MD for the Encounter. Date/Time Encounter Type Encounter Description Reason Pro vider Source Jul 16, 2024 09:30 AM Outpatient Encounter PSYCHOGERIATRIC - INDIVIDUAL IHE Encounter Template Text not used by MD Plan of Treatment: Future Appointments (+ 6 months) and Future Tests (+/- 45 days) The Plan of Treatment section includes future care activities for the patient from all [facility]. This section includes future appointments and future orders which are active, pending or scheduled. Future Appointments This section includes appointments that were scheduled to occur 6 months from the date of the Encounter, up to a maximum of 20 appointments. The data comes from all [facility]. Appointment Date/Time Appointment Type Appointme nt Facility Name Jul 23, 2024 09:00 AM [facility] Jul 28, 2024 09:00 AM [facility] [place] [facility] Aug 14, 2024 03:00 PM [place] [facility] Aug 18, 2024 10:30 AM [place] [facility] Aug 31, 2024 09:00 AM [place] [facility] Sep 03, 2024 08:00 [facility] Sep 17, 2024 08:00 AM [place] [facility] Sep 17, 2024 09:00 AM [place] [facility] Sep 18, 2024 01:00 PM [place] [facility] Sep 24, 2024 07:00 AM [place] [facility] Oct 02, 2024 03:00 PM [place] [facility] Oct 07, 2024 09:00 AM [place] [facility] Oct 19, 2024 09:30 AM [place] [facility] Active, Pending, and Scheduled Orders This section includes a listing of several types of active, pending, and scheduled orders, including clinic medications orders, diagnostic test orders, procedure orders and consult orders; where the start date of the order is 45 days before the date of the Encounter or 45 days after the date of theEncounter. The data comes from all [facility]. Test Date/Time Test Type Test Details Facility Name Jun 19, 2024 04:32 PM Consult Order [facility] Aug 26, 2024 07:52 AM Consult Order [facility] Lab Results: +/- 30 days of the [...] - Unit Interpretation Reference Range Comment Jul 13, 2024 11:18 AM [facility] BNP Specimen Type: PLASMA No comment entered. Ordering Provider: SARAH STANLEY Report Released Date/Time: Jul 13, 2024 11:12 AM Reporting Lab: [facility] [id number] Performing Lab: [facility] [id number] BNP 55 pg/mL <99 Jul 13, 2024 11:18 AM [facility] COMPREHENSIVE METABOLIC PANEL+MG Specimen Type: PLASMA No comment entered. Ordering Provider: SARAH STANLEY Report Released Date/Time: Jul 13, 2024 11:12 AM Reporting Lab: [facility] [id number] Performing Lab: [facility] [id number] CREATININE 1.1 mg/dL 0.7-1.2 UREA NITROGEN 29 mg/dL H 8-26 GLUCOSE 168 mg/dL H 70-100 SODIUM 144 mmol/L 136-145 POTASSIUM 4.5 mmol/L 3.5-5.1 CHLORIDE 105 mmol/L 98-107 CO2 34 mmol/L H 22-29 CALCIUM 9.5 mg/dL 8.4-10.2 PROTEIN,TOTAL 6.5 g/dL 6.4-8.3 ALBUMIN 4.1 g/dL 3.5-5.0 BILIRUBIN, TOTAL 0.5 mg/dL 0.2-1.2 MAGNESIUM 1.8 mg/dL 1.6-2.6 ANION GAP 5 mmol/L 5-15 ALKALINE PHOSPHATASE 80 U/L 40-150 ALT/SGPT 13 U/L <44 AST/SGOT 17 U/L 11-34 .CREAT EGFR(CKD-EPI) 70 >60 Social History: Smoking [...] 21, 2023 10:30 AM VA-TOBACCO FORMER USER [facility] [...] YRS OR MORE [facility] Aug 15, 2022 09:00 AM VA-TOBACCO FORMER USER [facility] Aug 15, 2022 09:00 AM VA-TOBACCO QUIT [...] 7Y OR GREATE R [facility] Pathology Reports: +/- 30 days of the [...] the Encounter. The data comes from all [facility] facilities. Date/Time Pathology Report Provider Source Jun 16, 2024 12:06 PM LR SURGICAL PATHOL OGY REPORT: LOCAL TITLE: LR SURGICAL PATHOLOGY REPORT STANDARD TITLE: PATHOLOGY REPORT DATE OF NOTE: JUN 16, 2024@12:06:01 ENTRY DATE: JUN 16, 2024@12:06:01 AUTHOR: BRIELLE OROURKE COSIGNER: URGENCY: STATUS: COMPLETED $APHDR Reporting Lab: [facility] [CLIA# [id number]] [place] [address] - - - - - - - [...] - - - PATHOLOGY REPORT Accession No. [id number] - - - - [...] in cassette B. Grossing performed by: DAVID, Senior Sql Server Database Developer Entered by: DAVID, Senior Sql Server Database Developer Grossing confirmed by: Brielle Orourke, Hematopathologist This report includes the results of laboratory tests utilizing Analyte Specific Reagents or commercially available antibodies (Canon and Lambda CISH Probes). These tests have been developed, fully validated, and their optimal performance characteristics determined by the [facility]. Such tests have not [...] see also concurrent negative flow cytometry study ([id number]). Imaging studies concerning for possible lytic lesions [...] controls for CD3, CD20, CD34, CD61, CD138, Canon and lambda light chains, and pankeratin are [...] OROURKE MD STAFF PATHOLOGIST, PATHOLOGY & LABORATORY [facility] Signed Jun 16, 2024@12:06 Performing Laboratory: Surgical Pathology Report Performed By: [facility] [CLIA# [id number]] [place] [address] $FTR - - - - - - - - - - - - - - - - - - - - - - - - - - - - - - - - - - - - - - - - (End of report) BRIELLE OROURKE MD [facility] Date Jun 16, 2024 - - - - - - - - - - - - - - - - - - - - - - - - - - - - - - - - - - - - - - - - JUAN THOMPSON JR STANDARD FORM 515 ID:[id number] SEX:M :1945 AGE: 78 LOC:[id number] PCP: Sonia Phillips /pablo/ BRIELLE OROURKE MD STAFF PATHOLOGIST, PATHOLOGY & LABORATORY [facility] Signed: 06/16/2024 12:06 BRIELLE OROURKE [facility] Jun 16, 2024 12:02 PM LR SURGICAL PATHOL OGY REPORT: LOCAL TITLE: LR SURGICAL PATHOLOGY REPORT STANDARD TITLE: PATHOLOGY REPORT DATE OF NOTE: JUN 16, 2024@12:02:40 ENTRY DATE: JUN 16, 2024@12:02:40 AUTHOR: BRIELLE OROURKE EXP COSIGNER: URGENCY: STATUS: COMPLETED $APHDR Reporting Lab: [facility] [CLIA# [id number]] [place] [address] - - - - - - - [...] - PATHOLOGY REPORT Accession No. [id number] - - - - - [...] morphologic correlation see bone marrow biopsy report [id number]. Summary: On CD45 vs. side scatter analysis, [...] MD STAFF PATHOLOGIST, PATHOLOGY & LABORATORY [facility] Signed Jun 16, 2024@12:02 Performing Laboratory: Surgical Pathology Report Performed By: [facility] [CLIA# [id number]] [place] [address] $FTR - - - - - - - - - - - - - - - - - - - - - - - - - - - - - - - - - - - - - - - - (End of report) BRIELLE OROURKE MD [facility] Date Jun 16, 2024 - - - - - - - - - - - - - - - - - - - - - - - - - - - - - - - - - - - - - - - - JUAN THOMPSON JR STANDARD FORM 515 ID:[id number] SEX:M :1945 AGE: 78 LOC:[id number] PCP: Sonia Phillips /pablo/ BRIELLE OROURKE MD STAFF PATHOLOGIST, PATHOLOGY & LABORATORY [facility] Signed: 06/16/2024 12:02 [facility] Encounter Notes: All associated encounter notes This section contains the clinical notes associated to the Encounter. Date/Time Encounter Note(s) Provider Source Jul 16, 2024 10:00 AM NO SHOW NOTE: LOCAL TITLE: MH NO SHOW NOTE STANDARD TITLE: NO SHOW NOTE DATE OF NOTE: JUL 16, 2024@10:00 ENTRY DATE: JUL 16, 2024@10:00:57 AUTHOR: LORETA HONEYCUTT EXP COSIGNER: URGENCY: STATUS: COMPLETED Patient did not appear for scheduled appointment. SUICIDE RISK ASSESSMENT: Low acute risk Risk [...] suicidal ideation or history of self-directed violence. Spoke with patient's guardian Nathalie and informed her of patient's missed appointment. Have been trying to connect with Nathalie since patient last appointment 06/04/24. She reports from a functional standpoint patient seems to be doing ok in current environment with adequate support. He has [facility] worker once a week which is helpful to monitor MH symptoms. She denies any acute mental health concerns and states patient doing well from psychiatric standpoing. Based on our last appointment, I recommended patient reduce aripriprazole to 15mg due to concern for adverse side effect (Parkinsonism) and no recent psychotic symptoms . I recommend gradual deprescription to lowest effective dose and Nathalie is in agreement. Will plan to reduce aripriprazole to 15mg HS. Will alert [facility] to please contact patient to schedule follow up. /pablo/ LORETA HONEYCUTT DO STAFF PSYCHIATRIST Signed: 07/16/2024 15:52 Receipt Acknowledged By: 07/17/2024 12:25 /pablo/ HARRISON [place] BURRER OPERATOR LROETA HONEYCUTT [facility]
--- OUTSIDE RECORDS SUMMARY | 2024-09-05 10:19 | XMS_ITS | Encounter Summary ---
Author Name [facility] [place] [facility] [place] Address [address] [place] [address] Care Team Providers Care Journalists And Other Writers Name Role Phone SONIA PHILLIPS Primary Care [...] PART B Sep 26, 2012 PART B [id number] [facility] [phone] JUAN THOMPSON JR PATIENT MEDICARE (WNR) MEDICARE (M) PART A Sep 26, 2012 PART A [id number] [phone] JUAN THOMPSON JR PATIENT Selected Encounter This section includes the information on record at [place] for the Encounter. Date/Time Encounter Type Encounter Description Reason Pro vider Source Jun 04, 2024 09:30 AM OFFICE O/P EST HI 40 MIN PSYCHOGERIATRIC - INDIVIDUAL ICD-10-CM 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, mild, w/o beh/psych/mo od/anx JANETTE HONEYCUTT IN [facility] Encounter Template Text not used by [place] Assessments - Encounter Diagnoses This section includes the primary and secondary diagnoses documented for the Encounter. Date/Time Primary/Secondary Diagnosis Diagnosis Name Provider Source Jun 04, 2024 05:53 PM PRIMARY Dem in other dis classd elswhr, mild, w/o beh/psych/mood/ anx JANETTE HONEYCUTT IN [facility] Jun 04, 2024 05:53 PM SECONDARY Bipolar II disorder JANETTE HONEYCUTT IN [facility] Plan of Treatment: Future Appointments (+ 6 months) and Future Tests (+/- 45 days) The Plan of Treatment section includes future care activities for the [facility] [place] [facility] This section includes future appointments [...] 2024 01:30 PM [facility] Jun 12, 2024 07:30 AM [facility] Jun 12, 2024 08:30 [facility] Jun 23, 2024 10:15 [facility] Jul 06, 2024 08:30 AM [facility] [facility] Jul 08, 2024 11:07 AM [facility] [place] [facility] Jul 13, 2024 10:00 AM [facility] [place] [facility] [facility] [facility] Jul 16, 2024 07:30 AM [facility] [place] [facility] [facility] Jul 16, 2024 08:30 AM [facility] Jul 16, 2024 09:00 AM [facility] Jul 16, 2024 09:30 [facility] Jul 23, 2024 09:00 [facility] Jul 28, 2024 09:00 AM [facility] [place] [facility] [place] [facility] [facility] Aug 14, 2024 03:00 PM [facility] [place] [facility] Aug 18, 2024 10:30 AM [facility] [place] [facility] Aug 31, 2024 09:00 AM [facility] [place] [facility] Sep 03, 2024 08:00 AM [facility] [place] [facility] [facility] Sep 17, 2024 08:00 AM [facility] Sep 17, 2024 09:00 AM [facility] Sep 18, 2024 01:00 PM [facility] [place] [facility] Active, Pending, and Scheduled Orders This section includes a listing of several types of active, pending, and scheduled orders, including clinic medications orders, diagnostic test orders, procedure orders and consult orders; where the start date of the order is 45 days before the date of the Encounter or 45 days after the date of theEncounter. The data comes from all [place] treatment facilities. Test Date/Time Test Type Test Details Facility Name Jun 19, 2024 04:32 PM Consult Order [facility]IC[facility] Cons Housekeeper Child Care's Choice [facility] Lab Results: +/- [...] Range Comment Jun 12, 2024 07:22 AM [facility] PHOSPHORUS Specimen Type: PLASMA No comment entered. Ordering Provider: JAVIER MICHELLE Report Released Date/Time: May 26, 2024 09:45 AM Reporting Lab: [facility] [address] Performing Lab: [facility] [address] PHOSPHORUS 3.4 mg/dL 2.3-4.3 Jun 12, 2024 07:22 AM [facility] RETICS Specimen Type: BLOOD Comment: Automated Differential Performed Ordering Provider: JAVIER MICHELLE Report Released Date/Time: May 26, 2024 09:53 AM Reporting Lab: [facility] [address] Performing Lab: [facility] [address] ABS RETIC 0.0429 0.0300-0.1 000 .RETICULOCYTE 1.06 0.6-2.0 IMMATURE RETIC 5.9 1.0-14.0 .RETICULOCYTE HE 30.5 pg 28.2-36.6 Jun 12, 2024 07:22 AM [facility] COMPREHENSIVE METABOLIC PANEL+MG Specimen Type: PLASMA No comment entered. Ordering Provider: JAVIER MICHELLE Report Released Date/Time: May 26, 2024 09:45 AM Reporting Lab: [facility] [address] Performing Lab: [facility] [address] CREATININE 1.0 mg/dL 0.7-1.2 UREA NITROGEN 22 [...] 78 >60 Jun 12, 2024 07:22 AM [facility] CBC & DIFF Specimen Type: BLOOD Comment: Automated Differential Performed Ordering Provider: JAVIER MICHELLE Report Released Date/Time: May 26, 2024 09:45 AM Reporting Lab: [facility] [address] Performing Lab: [facility] [address] WBC 6.4 4.0-11.0 RBC 4.05 L 4.60-6.20 [...] pg 28.2-36.6 Jun 03, 2024 11:17 AM [facility] URINALYSIS Specimen Type: URINE No comment entered. Ordering Provider: LYUBOV YUENG Report Released Date/Time: Jun 03, 2024 10:39 AM Reporting Lab: [facility] [address] Performing Lab: [facility] [address] URINE COLOR YELLOW SPECIFIC GRAVITY 1.018 1.003-1.03 [...] 75 NEGATIVE May 20, 2024 09:39 AM [facility] FINGERSTICK GLUCOSE Specimen Type: BLOOD Comment: Save Result Ordering Provider: TANK PHILLIPS Report Released Date/Time: May 20, 2024 03:03 PM Reporting Lab: [facility] [phone] Performing Lab: [facility] [address] FINGERSTICK GLUCOSE 148 mg/dL H 70-100 May 13, 2024 11:44 AM [facility] KAPPA/LAMBDA LC FREE,RATIO Specimen Type: SERUM [...] therapy of these disorders. Test Performed by [facility] [place], [employer] [facility], [address] [place] [address] Devante Meyer M.D., Ph.D., Director of Laboratories , CLIA [id number] Ordering Provider: RENUKA JOHNSON Report Released Date/Time: Apr 24, 2024 04:08 PM Reporting Lab: [facility] [address] Performing Lab: [address] .KAPPA LT CHAIN,FREE 27.3 mg/L H 3.3-19.4 .LAMBDA LC,FREE 15.8 mg/L 5.7-26.3 .KAPPA/LAMBDA, FREE 1.73 H 0.26-1.65 May 13, 2024 11:44 AM [facility] LD,TOTAL Specimen Type: PLASMA No comment entered. Ordering Provider: RENUKA OJHNSON Report Released Date/Time: Apr 24, 2024 04:08 PM Reporting Lab: [facility] [address] Performing Lab: [facility] [address] LD,TOTAL 141 U/L 125-220 May 13, 2024 11:44 AM [facility] URIC ACID Specimen Type: PLASMA No comment entered. Ordering Provider: RENUKA JOHNSON Report Released Date/Time: Apr 24, 2024 04:08 PM Reporting Lab: [facility] [address] Performing Lab: [facility] [address] URIC ACID 3.1 mg/dL L 3.7-7.7 May 13, 2024 11:44 AM [facility] B 12 Specimen Type: SERUM No comment entered. Ordering Provider: RENUKA JOHNSON Report Released Date/Time: Apr 24, 2024 04:08 PM Reporting Lab: [facility] [address] Performing Lab: [place] [phone] B 12 722 pg/mL 213-816 May 13, 2024 11:44 AM [facility] FOLATE Specimen Type: SERUM No comment entered. Ordering Provider: RENUKA JOHNSON Report Released Date/Time: Apr 24, 2024 04:08 PM Reporting Lab: [facility] [address] Performing Lab: [facility] [address] FOLATE 14.6 ng/mL >7.0 May 13, 2024 11:44 AM [facility] PHOSPHORUS Specimen Type: PLASMA No comment entered. Ordering Provider: RENUKA JOHNSON Report Released Date/Time: Apr 24, 2024 04:08 PM Reporting Lab: [facility] [address] Performing Lab: [facility] [address] PHOSPHORUS 3.3 mg/dL 2.3-4.3 May 13, 2024 11:44 AM [facility] IRON GROUP Specimen Type: SERUM No comment entered. Ordering Provider: RENUKA JOHNSON Report Released Date/Time: Apr 24, 2024 04:08 PM Reporting Lab: [facility] [address] Performing Lab: [facility] [address] IRON 101 ug/dL 65-175 TIBC,CALCULATE D 313 ug/dL 250-425 FERRITIN pending IRON SATURATION 32 20-50 TRANSFERRIN 250 mg/dL 163-382 May 13, 2024 11:44 AM [facility] TOTAL IMMUNOGLOB (IGA,IGG,IGM) Specimen Type: PLASMA No comment entered. Ordering Provider: RENUKA JOHNSON Report Released Date/Time: Apr 24, 2024 04:08 PM Reporting Lab: [facility] [address] Performing Lab: [facility] [address] IGM 78.8 mg/dL 22.0-293.0 IGG 714.3 mg/dL 540.0-18 22 .0 IGA 123.8 mg/dL 63.0-645.0 May 13, 2024 11:44 AM [facility] BETA 2-MICROGLOBULIN Specimen Type: SERUM No comment entered. Ordering Provider: RENUKA JOHNSON Report Released Date/Time: Apr 24, 2024 04:08 PM Reporting Lab: [facility] [address] Performing Lab: [facility] [address] BETA 2-MICROGLOBULI N 3.36 mg/L H 0.97-2.64 May 13, 2024 11:44 AM [facility] CBC & DIFF Specimen Type: BLOOD Comment: Automated Differential Performed Ordering Provider: RENUKA JOHNSON Report Released Date/Time: Apr 24, 2024 04:08 PM Reporting Lab: [facility] [address] Performing Lab: [facility] [address] WBC 8.3 4.0-11.0 RBC 4.04 L 4.60-6.20 [...] 0.0 0.0-0.1 May 13, 2024 11:44 AM [facility] PSA Specimen Type: SERUM No comment entered. Ordering Provider: ABBY MEANS Report Released Date/Time: May 12, 2024 08:28 PM Reporting Lab: [facility] [address] Performing Lab: [facility] [address] PSA 0.49 ng/mL <4.00 May 13, 2024 11:44 AM [facility] TESTOSTERONE Specimen Type: SERUM No comment entered. Ordering Provider: ABBY MEANS Report Released Date/Time: May 12, 2024 08:30 PM Reporting Lab: [facility] [address] Performing Lab: [facility] [address] TESTOSTERONE 534 ng/dL 221-870 May 13, 2024 11:44 AM [facility] COMPREHENSIVE METABOLIC PANEL+MG Specimen Type: PLASMA No comment entered. Ordering Provider: RENUKA JOHNSON Report Released Date/Time: Apr 24, 2024 04:08 PM Reporting Lab: [facility] [address] Performing Lab: [facility] [address] CREATININE 1.0 mg/dL 0.7-1.2 UREA NITROGEN 26 [...] 78 >60 May 13, 2024 11:44 AM [facility] PERIPHERAL SMEAR PATHOLOGIST REVIEW Specimen Type: BLOOD No comment entered. Ordering Provider: RENUKA JOHNSON Report Released Date/Time: May 13, 2024 01:51 PM Reporting Lab: [facility] [address] Performing Lab: [facility] [address] PERIPHERAL SMEAR PATHOLOGIST REVIEW SLIDES MADE Social [...] 21, 2023 10:30 AM [facility] OR MORE [facility] Aug 15, 2022 09:00 AM VA-TOBACCO FORMER USER [facility] Aug 15, 2022 09:00 AM [...] OR GREATE R [facility] Radiology Reports: +/- 30 days [...] the Encounter. The data comes from all [facility] facilities. Date/Time Radiology Report Provider Source May 20, 2024 09:[address] BODY W/O CO NTRAST (P): JUAN THOMPSON [id number] -1945 M Exm Date: MAY 20, 2024@09:14 Req Phys: LYUBOV YEUNG Loc: [facility] APACT L RES 03 WH 4F (Req' Img Loc: NUC MED Service: [place] [address] (Case [id number] COMPLETE) SKULL-THIGH PET IMAGE W/CT (NM Detailed) CPT:75381 Reason for Study: eval for malignancy (Case [...] pager listed below: User placing orders pager: [phone] LAST CREATININE 1.0 (04/22/24) Report Status: Verified Date Reported: MAY 20, 2024 Date Verified: MAY 20, 2024 Import Export Manager E-Sig:/ES/RUFUS GROVES MD, FACR, CCD Report: [...] Staff: RUFUS GROVES MD, FACR, STAFF RADIOLOGIST (Import Export Manager) /BSF RUFUS GROVES [facility] Pathology Reports: +/- 30 days [...] comes from all [place] treatment facilities. Date/Time Pathology Report Provider Source Jun 16, 2024 12:06 PM LR SURGICAL PATHOLOGY REPORT: LOCAL TITLE: LR SURGICAL PATHOLOGY REPORT STANDARD TITLE: PATHOLOGY REPORT DATE OF NOTE: JUN 16, 2024@12:06:01 ENTRY DATE: JUN 16, 2024@12:06:01 AUTHOR: BRIELLE AMIN COSIGNER: URGENCY: STATUS: COMPLETED $APHDR Reporting Lab: [facility] [CLIA# [id number]] [place] [address] - - - - - - - [...] in cassette B. Grossing performed by: DAVID, Director Strategic Planning Entered by: DAVID, Director Strategic Planning Grossing confirmed by: Brielle Amin, Hematopathologist This report includes the results of laboratory tests utilizing Analyte Specific Reagents or commercially available antibodies (Warm [place] and Lambda CISH Probes). These tests have been developed, fully validated, and their optimal performance characteristics determined by the [facility] Laboratory Service. Such tests have not [...] see also concurrent negative flow cytometry study ([id number]). Imaging studies concerning for possible lytic lesions [...] controls for CD3, CD20, CD34, CD61, CD138, [place] and lambda light chains, and pankeratin are [...] PATHOLOGY & LABORATORY [facility] Signed Jun 16, 2024@12:06 Performing Laboratory: Surgical Pathology Report Performed By: [facility] [CLIA# [id number]] [place] [address] $FTR - - - - - - - - - - - - - - - - - - - - - - - - - - - - - - - - - - - - - - - - (End of report) BRIELLE AMIN MD [facility] Date Jun 16, 2024 - - - - - - - - - - - - - - - - - - - - - - - - - - - - - - - - - - - - - - - - JUAN THOMPSON JR STANDARD FORM 515 ID:[id number] SEX:M :1945 AGE: 78 LOC:[id number] PCP: Sonia Phillips /pablo/ BRIELLE AMIN MD STAFF PATHOLOGIST, PATHOLOGY & LABORATORY [facility] Signed: 06/16/2024 12:06 BRIELLE AMIN [facility] Jun 16, 2024 12:02 PM LR SURGICAL PATHOLOGY REPORT: LOCAL TITLE: LR SURGICAL PATHOLOGY REPORT STANDARD TITLE: PATHOLOGY REPORT DATE OF NOTE: JUN 16, 2024@12:02:40 ENTRY DATE: JUN 16, 2024@12:02:40 AUTHOR: BRIELLE AMIN EXP COSIGNER: URGENCY: STATUS: COMPLETED $APHDR Reporting Lab: [facility] [CLIA# [id number]] [place] [address] - - - - - - - [...] - PATHOLOGY REPORT Accession No. -[id number] - - - - - - - [...] morphologic correlation see bone marrow biopsy report [id number]. Summary: On CD45 vs. side scatter analysis, [...] PATHOLOGY & LABORATORY [facility] Signed Jun 16, 2024@12:02 Performing Laboratory: Surgical Pathology Report Performed By: [facility] [CLIA# [id number]] [place] [address] $FTR - - - - - - - - - - - - - - - - - - - - - - - - - - - - - - - - - - - - - - - - (End of report) BRIELLE AMIN MD [facility] Date Jun 16, 2024 - - - - - - - - - - - - - - - - - - - - - - - - - - - - - - - - - - - - - - - - JUAN THOMPSON JR STANDARD FORM 515 ID:[id number] SEX:M :1945 AGE: 78 LOC:[id number] PCP: Sonia Phillips /aneesh AMIN MD STAFF PATHOLOGIST, PATHOLOGY & LABORATORY [facility] Signed: 06/16/2024 12:02 BRIELLE AMIN [facility] May 14, 2024 10:47 AM LR SURGICAL PATHOLOGY REPORT: LOCAL TITLE: LR SURGICAL PATHOLOGY REPORT STANDARD TITLE: PATHOLOGY REPORT DATE OF NOTE: MAY 14, 2024@10:47:04 ENTRY DATE: MAY 14, 2024@10:47:04 AUTHOR: VIPUL DASILVAIGNER: URGENCY: STATUS: COMPLETED $APHDR Reporting Lab: [facility] [CLIA# [id number]] [address] [place] [address] - - - - - - - [...] - - - PATHOLOGY REPORT Accession No. PS-CT [id number] - - - - - [...] Performing Laboratory: Surgical Pathology Report Performed By: [facility] [CLIA# [id number]] [place] [address] $FTR - - - - - - [...] - JUAN THOMPSON JR STANDARD FORM 515 ID:[id number] SEX:M :1945 AGE: 78 LOC:[id number] PCP: Sonia Phillips /pablo/ VIPUL DASILVA MD STAFF PATHOLOGIST Signed: 05/14/2024 10:47 VIPUL DASILVA [facility] Encounter Notes: All associated encounter notes This section contains the clinical notes associated to the Encounter. Date/Time Encounter Note(s) Provider Source Jun 04, 2024 09:40 AM PSYCHIATRY E & M NOTE: LOCAL TITLE: PSYCHIATRIC EVALUATION & MANAGEMENT STANDARD TITLE: PSYCHIATRY E & M NOTE DATE OF NOTE: JUN 04, 2024@09:40 ENTRY DATE: JUN 04, 2024@09:40:26 AUTHOR: LORETA HONEYCUTT COSIGNER: URGENCY: STATUS: COMPLETED PSYCHIATRIC EVALUATION & [...] it is a good relationship with his high school social studies tutor and guardian. Physically, denies recent fall. Reports [...] engage in the assessment; this may be hostess party sales representative of his day-to-day functioning. Given his [...] as Alzheimer's disease is less likely. The [place]'s presentation is complex and symptoms may persist [...] delirium secondary to hyperglycemia which resulted in [facility] and guardianship in 2021. His function [...] information in medical record, and care coordination:45 /pablo/ LORETA HONEYCUTT DO STAFF PSYCHIATRIST Signed: 06/04/2024 17:54 06/04/2024 ADDENDUM STATUS: COMPLETED called guardian Nathalie Cline to discuss recommended treatment change (reduction in aripriprazole) and to obtain collateral on patient current physical /cognitive status and function. Message left with clinic contact information requesting call back. /aneesh HONEYCUTT DO STAFF PSYCHIATRIST Signed: 06/11/2024 16:29 06/15/2024 ADDENDUM STATUS: COMPLETED Attempted to call back javier Monreal, to consent for treatment change and collateral. Guardian was not reached, message left requesting call back. recieved updated contact info as follows phone: ph: [phone]. /pablo/ LORETA HONEYCUTT DO STAFF PSYCHIATRIST Signed: 06/15/2024 15:06 06/15/2024 ADDENDUM STATUS: COMPLETED Attempted to call javier Cline at [phone], voicemail left with callback number. /pablo/ LORETA HONEYCUTT DO STAFF PSYCHIATRIST Signed: 06/19/2024 17:05 LORETA HONEYCUTT [facility]
--- OUTSIDE RECORDS SUMMARY | 2024-09-05 10:19 | XMS_ITS | Encounter Summary ---
Author Name [facility] [place] Organization [facility] [place] Address [address] [place] [address] Care Team Providers Care Knitted Goods Shaper Name Role Phone MARIUSZ PHILLIPS Primary Care [...] PART A Sep 26, 2012 PART A [id number] [facility] [phone] JUAN THOMPSON JR PATIENT MEDICARE (WNR) MEDICARE (M) PART B Sep 26, 2012 PART B [id number] [phone] JUAN THOMPSON JR PATIENT Selected Encounter This [...] Encounter Template Text not used by [place] Assessments - Encounter Diagnoses This section includes the primary and secondary diagnoses documented for the Encounter. Date/Time Primary/Secondary Diagnosis Diagnosis Name Provider Source Oct 04, 2023 12:06 PM PRIMARY Bipolar disorder, in full remis, most recent episode depress JOSE HONEYCUTT [facility] Oct 04, 2023 12:06 PM SECONDARY Unspecified dementia, mild, with other behavioral disturb JOSE HONEYCUTT [facility] Oct 04, 2023 12:06 PM SECONDARY Visual hallucinations JOSE HONEYCUTT [facility] Plan of Treatment: Future Appointments (+ 6 months) and Future Tests (+/- 45 days) The Plan of Treatment section includes future care activities for the patient from all [facility]. This section includes future appointments and future orders which are active, pending or scheduled. Future Appointments This section includes appointments that were scheduled to occur 6 months from the date of the Encounter, up to a maximum of 20 appointments. The data comes from all [place] treatment facilities. Appointment Date/Time Appointment Type Appointme nt Facility Name Oct 09, 2023 09:00 AM AM[place]ORY - [place]ONE [place] [facility] Oct 09, 2023 10:00 AM [place]IC[place] [facility] Nov 07, 2023 09:30 AM [place] [facility] Nov 07, 2023 10:30 AM [place] [facility] Nov 07, 2023 11:30 AM AM[place] [facility] Nov 07, 2023 11:45 AM [place]IC[place] [facility] Nov 20, 2023 09:00 AM [place] [facility] December 05, 2023 09:30 AM AM[place]UL[place] [facility] Feb 07, 2024 11:00 AM AM[place]UL[place]ORY - NONE [place] [facility] Feb 07, 2024 11:30 AM AM[place] [facility] Feb 07, 2024 12:30 PM AMBUL[place]ORY - NONE [place] [facility] Feb 18, 2024 08:00 AM [place]IC[place] [facility] Mar 05, 2024 07:30 AM [place]IC[place] [facility] Mar 05, 2024 08:30 AM [place] [facility] Mar 05, 2024 10:00 AM [facility] Mar 09, 2024 08:45 AM AM[facility]UL[facility]ORY - [place] [facility] Mar 16, 2024 09:00 AM [facility] Mar 16, 2024 10:15 AM AM[place]ORY - NONE [place] [facility] Mar 27, 2024 07:00 AM AM[place]ORY - NONE [place] [facility] Mar 31, 2024 07:00 AM AM[place]UL[place]ORY - NONE [place] [facility] Active, Pending, and Scheduled Orders This section includes a listing of several types of active, pending, and scheduled orders, including clinic medications orders, diagnostic test orders, procedure orders and consult orders; where the start date of the order is 45 days before the date of the Encounter or 45 days after the date of theEncounter. The data comes from all [place] treatment facilities. Test Date/Time Test Type Test Details Facility Name Aug 21, 2023 04:02 PM Laboratory - Chemi stry Order URINALYSIS URINE ER STAT WC ONCE [facility] Lab Results: +/- [...] Range Comment Oct 09, 2023 08:35 AM [facility] HEMOGLOBIN A1C Specimen Type: BLOOD Comment: [...] Aug 29, 2023 04:30 PM Reporting Lab: [facility] [id number] Performing Lab: [facility] [id number] HEMOGLOBIN A1C 6.4 H 4.0-6.0 Oct 09, 2023 08:35 AM [facility] CBC Specimen Type: BLOOD No comment entered. Ordering Provider: YO YEUNG Report Released Date/Time: Aug 29, 2023 04:30 PM Reporting Lab: [facility] [id number] Performing Lab: [facility] [id number] WBC 7.18 10*3/uL 4.0-11.0 RBC 3.94 10*6/uL L 4.6-6.2 HGB 11.7 g/dL L 13.5-17.9 HCT 36.0 L 41-54 MCV 91.4 fL 80-100 MCH 29.7 pg 27-33 MCHC 32.5 g/dL 32.0-37.5 PLT 266 10*3/uL 150-400 MPV 9.7 fL 7.4-10.4 RDW 14.3 11.5-14.5 Oct 09, 2023 08:35 AM [facility] BASIC METABOLIC PANEL+MG Specimen Type: PLASMA No comment entered. Ordering Provider: YO YEUNG Report Released Date/Time: Aug 29, 2023 04:30 PM Reporting Lab: [facility] [id number] Performing Lab: [facility] [id number] CREATININE 1.1 mg/dL 0.7-1.2 UREA NITROGEN 22 [...] LORETA HONEYCUTT DO STAFF PSYCHIATRIST JAMES SAUNDERS [facility] Oct 03, 2023 08:38 AM PSYCHIATRY E [...] Saturday afternoon to be seen at the [facility] and they put in 6 stitches. 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 Etiology is certainly multifactorial. The [place]'s psychiatric presentation likely plays a prominent role; symptoms of psychosis were evident during the current evaluation and appeared to affect his attention and ability to engage in the assessment; this may be agency service representative of his day-to-day functioning. Given [...] endorse delusion that he communicated with television reporter in the past, though reports it is [...] STAFF PSYCHIATRIST Signed: 10/04/2023 12:06 LORETA HONEYCUTT [facility]
--- OUTSIDE RECORDS SUMMARY | 2024-09-05 10:19 | XMS_ITS | Encounter Summary ---
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 Date/Time Encounter Type Encounter Description Reason Pro vider Source December 05, 2023 09:30 AM OFFICE O/P EST MOD 30 MIN PSYCHOGERIATRIC - INDIVIDUAL ICD-10-CM F31.81 Bipolar II disorder JOSE HONEYCUTT [facility] Encounter Template Text not used by [place] Assessments - Encounter Diagnoses This section includes the primary and secondary diagnoses documented for the Encounter. Date/Time Primary/Secondary Diagnosis Diagnosis Name Provider Source December 05, 2023 12:32 PM PRIMARY Bipolar II disorder JANETTE HONEYCUTT IN [facility] Plan of Treatment: Future Appointments (+ 6 months) and Future Tests (+/- 45 days) The Plan of Treatment section includes future care activities for the patient from all [facility]. This section includes future appointments and future orders which are active, pending or scheduled. Future Appointments This section includes appointments that were scheduled to occur 6 months from the date of the Encounter, up to a maximum of 20 appointments. The data comes from all [place] treatment facilities. Appointment Date/Time Appointment Type Appointme [...] AMBULATORY - [place]ICINE [place] [facility] Apr 29, 2024 10:30 AM [facility] - [place] [facility] May 13, 2024 12:00 PM AMBULATORY - NONE [facility] May 13, 2024 01:00 PM AMBULATORY - MEDICINE [facility] [facility] May 20, 2024 09:45 AM AMBULATORY - NONE [facility] Lab Results: +/- [...] Range Comment Nov 07, 2023 11:14 AM [facility] VIT D 25-OH,TOTAL Specimen Type: SERUM No comment entered. Ordering Provider: ISAEL ALVAREZ Report Released Date/Time: Nov 07, 2023 10:08 AM Reporting Lab: [facility] [id number] Performing Lab: [facility] [id number] VIT D 25-OH,TOTAL 70 ng/mL H 12-50 Nov 07, 2023 09:38 AM [facility] VITAMIN A Specimen Type: SERUM Comment: Vitamin supplementation within 24 hours prior to blood draw may affect the accuracy of the results. This test was developed and its analytical performance characteristics have been determined by [employer] [place], [place]. It has not been cleared or approved by the U.S. Food and Drug Administration. This assay has been validated pursuant to the CLIA regulations and is used for clinical purposes. Test Performed by [facility], [employer] [facility], [address] [place] [address] Devante Meyer M.D., Ph.D., Director of Laboratories , CLIA [id number] Ordering Provider: ISAEL ALVAREZ Report Released Date/Time: Jul 11, 2023 10:23 AM Reporting Lab: [facility] [id number] Performing Lab: [address] VITAMIN A 58 ug/dL 38-98 Nov 07, 2023 09:38 AM [facility] HEMOGLOBIN A1C Specimen [...] Jul 11, 2023 10:23 AM Reporting Lab: [facility] [id number] Performing Lab: [facility] [id number] HEMOGLOBIN A1C 6.4 H 4.0-6.0 Social History: [...] 21, 2023 10:30 AM [place] FOR[facility]ER [facility] OR MORE [facility] Aug 15, 2022 09:00 AM VA-TOBACCO FORMER USER [facility] Aug 15, 2022 09:00 AM [...] FORMER TOBACCO USER 7Y OR KIAH Khan [facility] Encounter Notes: All [...] he can't get up. 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 Etiology is certainly multifactorial. The [place]'s psychiatric presentation likely plays a prominent role; symptoms of psychosis were evident during the current evaluation and appeared to affect his attention and ability to engage in the assessment; this may be data entry representative of his day-to-day functioning. Given his [...] as Alzheimer's disease is less likely. The [place]'s presentation is complex and symptoms may persist [...] 6.4 10/2022 -AIMS monitoring: AIMS 0 on 3/7/24 -RTC 5-6 Months -Collateral: Guardian: Nathalie Cline: [...] STAFF PSYCHIATRIST Signed: 12/05/2023 12:32 LORETA HONEYCUTT [facility]
--- OUTSIDE RECORDS SUMMARY | 2024-09-05 10:19 | XMS_ITS | Continuity of Care Document ---
Author Name [facility] Organization [facility] Care Team Providers Care Junior Copywriter Name Role Phone [facility] Unavailable Unavailable Problems Combined list of problems from Department of Defense and Veterans Affairs facilities. It does not include entries that were removed or entered in error. Problem Status Onset Date Problem Type Date of Resolution Comments Source Anemia Active Condition [facility] Astigmatism, Unspec Active Condition [facility] Atrial fibrillation (SNOMED CT 61226638) Active Condition [facility] Bariatric Surgery Status (ICD-9-CM V45.86) Active Condition [facility] Bipolar disorder (SNOMED CT 88734389) Active Condition [facility] Bronchiectasis (SNOMED CT 80792725) Active Condition [facility] Cataracts (SNOMED CT 04955674) Active Condition [facility] Compulsive gambling Active Condition [facility] Dementia Active Condition [facility] Essential hypertension (SNOMED CT 32061056) Active Condition [facility] Gastritis Active Condition [facility] Gastroesophageal reflux disease (SNOMED CT 882703426) Active Condition [facility] Generalized anxiety disorder (SNOMED CT 79249771) Active Condition [facility] Hypermetropia/Hypero miguel Active Condition [facility] Long-term current use of anticoagulant Active Condition [facility] Major depressive disorder (SNOMED CT 389138053) Active Condition [facility] Mild cognitive disorder Active Condition [facility] Monoclonal gammopathy of uncertain significance Active Condition [facility] Presbyopia Active Condition [facility] Primary Obesity (ICD-9-CM 278.00) Active Condition [facility] Type 2 diabetes mellitus Active Condition [facility] Varicose veins of lower extremity Active Condition [facility] Venous insufficiency of leg Active Condition [facility] Diagnosis: ICD-10-CM F03.A18 Unspecified dementia, mild, with other behavioral disturb Active Diagnosis [facility] Diagnosis: ICD-10-CM R63.4 Abnormal weight loss Active Diagnosis [facility] Diagnosis: ICD-10-CM I87.2 Venous insufficiency (chronic) (peripheral) Active Diagnosis [facility] Diagnosis: ICD-10-CM F31.81 Bipolar II disorder Active Diagnosis [facility] Diagnosis: ICD-10-CM R91.1 Solitary pulmonary nodule Active Diagnosis [facility] Diagnosis: ICD-10-CM D47.2 Monoclonal gammopathy Active Diagnosis [facility] Diagnosis: ICD-10-CM R93.7 Abnormal findings on diagnostic imaging of prt ms sys Active Diagnosis [facility] Diagnosis: ICD-10-CM D64.9 Anemia, unspecified Active Diagnosis [facility] Diagnosis: ICD-10-CM 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, mild, w/o beh/psych/mood/anx [facility] Diagnosis: ICD-10-CM R93.89 Abnormal findings on dx imaging of oth body structures Active Diagnosis [facility] Diagnosis: ICD-10-CM M17.0 Bilateral primary osteoarthritis of knee Active Diagnosis [facility] Diagnosis: ICD-10-CM G20.C Parkinsonism, unspecified Active Diagnosis [facility] Diagnosis: ICD-10-CM M25.552 Pain in left hip Active Diagnosis [facility] Diagnosis: ICD-10-CM M16.11 Unilateral primary osteoarthritis, right hip Active Diagnosis [facility] Diagnosis: ICD-10-CM E11.8 Type 2 diabetes mellitus with unspecified complications Active Diagnosis [facility] Diagnosis: ICD-10-CM R60.9 Edema, unspecified Active Diagnosis [facility] Diagnosis: ICD-10-CM 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 Active Diagnosis [facility] Diagnosis: ICD-10-CM F31.76 Bipolar disorder, in full remis, most recent episode depress Active Diagnosis [facility] Diagnosis: ICD-10-CM 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 mellitus with diabetic neuropathy, unsp Active Diagnosis [facility] Diagnosis: ICD-10-CM W19.XXXD Unspecified fall, subsequent encounter Active Diagnosis [facility] Diagnosis: ICD-10-CM W19.XXXA Unspecified fall, initial encounter Active Diagnosis [facility] Diagnosis: ICD-10-CM E66.3 Overweight Active Diagnosis [facility] Diagnosis: ICD-10-CM F03.A4 Unspecified dementia, mild, with anxiety Active Diagnosis [facility] Medications Combined list of outpatient [...] 6 HOURS NEEDED FOR PAIN ORAL ACTIVE 07/31/2025 [id number] 5 LYUBOV YEUNG 2024 100 [facility] ACETAMINOPH EN 500MG TAB TAKE ONE TABLET BY MOUTH EVERY 6 HOURS NEEDED FOR PAIN ORAL DISCONT INUED 10/09/2024 [id number] 4 LYUBOV YEUNG 2023 100 [facility] ALBUTEROL 90MCG/ACTUA T (CFC-F) INHL,ORAL,8 .5GM DOSE COUNTER INHALE 2 PUFFS BY INHALATI ON FOUR TIMES A DAY NEEDED FOR SHORTNES S OF BREATH RESPIR ATORY (INHAL ATION) ACTIVE 10/09/2024 [id number] 4 LYUBVO YEUNG 2023 2 [facility] AMOXICILLIN TRIHYDRATE 875MG/CLAVU LANATE K 125MG TAB TAKE 1 TABLET BY MOUTH TWICE A DAY FOR URINARY TRACT INFECTIO N ORAL 09/20/2023 [id number] Caden CHAVEZ 2023 14 [facility] APIXABAN 5MG TAB TAKE ONE TABLET BY MOUTH EVERY 12 HOURS TO PREVENT AND/OR TREAT BLOOD CLOTS ORAL ACTIVE 12/05/2024 [id number] 5 COBY HOWE 2023 180 [facility] APIXABAN 5MG TAB TAKE ONE TABLET BY MOUTH EVERY 12 HOURS TO PREVENT AND/OR TREAT BLOOD CLOTS ORAL DISCONT INUED 10/13/2023 [id number] 4 MISSY LARSEN 2022 180 [facility] ARIPIPRAZOL E 15MG TAB TAKE ONE TABLET BY MOUTH EVERY DAY FOR BIPOLAR DISORDER NOTE CHANGE IN STRENGTH ORAL ACTIVE 07/24/2025 [id number] LORETA HONEYCUTT 2023 30 [facility] ARIPIPRAZOL E 20MG TAB TAKE ONE TABLET BY MOUTH EVERY DAY FOR BIPOLAR DISORDER DOSE INCREASE D - ORAL DISCONT INUED (EDIT) 12/05/2024 [id number] 4 LORETA HONEYCUTT 2023 90 [facility] ARIPIPRAZOL E 20MG TAB TAKE ONE TABLET BY MOUTH EVERY DAY FOR BIPOLAR DISORDER DOSE INCREASE D 11-23-22 ORAL DISCONT INUED 11/24/2023 [id number] 4 USHA PURI 2022 90 [facility] ATORVASTATI N CA 10MG TAB TAKE ONE TABLET BY MOUTH AT BEDTIME ORAL ACTIVE 10/09/2024 [id number] 4 LYUBOV YEUNG 2023 90 [facility] ATORVASTATI N CA 10MG TAB TAKE ONE TABLET BY MOUTH AT BEDTIME ORAL DISCONT INUED 09/21/2023 [id number] MARIUSZ PHILLIPS 2022 90 [facility] BUPROPION HCL 150MG 24HR TAB,SA TAKE ONE TABLET BY MOUTH EVERY MORNING ORAL DISCONT INUED BY PROVIDE R 11/24/2023 [id number] 4 USHA PURI 2022 90 [facility] CALCIUM 200MG (CA CITRATE-950 MG) TAB TAKE TWO TABLETS BY MOUTH TWICE A DAY FOR CALCIUM SUPPLEME NT ORAL ACTIVE 11/13/2024 [id number] 4 MARIUSZ PHILLIPS 2023 400 [facility] CALCIUM 200MG (CA CITRATE-950 MG) TAB TAKE TWO TABLETS BY MOUTH TWICE A DAY FOR CALCIUM SUPPLEME NT ORAL DISCONT INUED 09/12/2023 [id number] DHZULLY VICTOR ARVA K 2022 400 [facility] CHOLECALCIF GABRIELA 25MCG (1,000UNIT) TAB TAKE ONE TABLET BY MOUTH EVERY DAY ORAL DISCONT INUED BY PROVIDE R 10/30/2024 [id number] 4 JACQUELINEMARIUSZ RICHARDSON 2023 100 [facility] [place] [facility] CHOLECALCIF GABRIELA 25MCG (1,000UNIT) TAB TAKE ONE TABLET BY MOUTH EVERY DAY ORAL DISCONT INUED 09/21/2023 [id number] 4 MARIUSZ PHILLIPS 2022 100 [facility] [place] [facility] CYANOCOBALA MIN 1000MCG TAB TAKE ONE TABLET BY MOUTH EVERY DAY ORAL ACTIVE 03/10/2025 [id number] 4 JACQUELINEMARIUSZ RICHARDSON 2023 100 [facility] [place] [facility] CYANOCOBALA MIN 1000MCG TAB TAKE ONE TABLET BY MOUTH EVERY DAY ORAL DISCONT INUED 11/28/2023 [id number] 4 KEITH CRANE 2022 100 [facility] [place] [facility] DICLOFENAC NA 1% GEL,TOP APPLY 4 GRAMS TOPICALL Y FOUR TIMES A DAY NEEDED TO AFFECTED AREA FOR PAIN TOPICA L ACTIVE 11/13/2024 [id number] 4 RACHEL LEIVA 2023 100 [facility] [place] [facility] FERROUS SO4 325MG TAB TAKE ONE TABLET BY MOUTH EVERY DAY FOR IRON SUPPLEME NT ORAL ACTIVE 01/13/2025 [id number] 4 ADELE KINCAID HAEL 2023 100 [facility] [place] [facility] FERROUS SO4 325MG TAB TAKE ONE TABLET BY MOUTH EVERY DAY IRON DEFICIEN CY ORAL DISCONT INUED 11/07/2023 [id number] 4 SALIElbaADELE HAEL 2022 100 [facility] [place] [facility] LIDOCAINE 5% PATCH APPLY 1 PATCH TOPICALL Y EVERY DAY FOR UP TO 12 HOURS FOR PAIN TOPICA L ACTIVE 10/09/2024 [id number] 5 LYUBOV YEUNG 2023 30 [place] [facility] LIDOCAINE 5% PATCH APPLY 1 PATCH TOPICALL Y EVERY DAY FOR PAIN TOPICA L DISCONT INUED 08/16/2023 [id number] KEITH CRANE 2022 30 [place] [facility] MAGNESIUM OXIDE 400MG TAB TAKE TWO TABLETS BY MOUTH EVERY DAY FOR SUPPLEME NTATION ORAL ACTIVE 05/07/2025 [id number] 5 MARIUSZ PHILLIPS 2023 120 [place] [facility] MAGNESIUM OXIDE 400MG TAB TAKE TWO TABLETS BY MOUTH EVERY DAY FOR SUPPLEME NTATION ORAL DISCONT INUED 06/17/2024 [id number] 4 LIZ TABOR,RACHEL 2022 120 [place] [facility] METFORMIN HCL 500MG TAB TAKE ONE TABLET BY MOUTH EVERY DAY FOR DIABETES *NOTE:WH OLE TABLETS ORAL 06/12/2024 [id number] 4 ALTHEA MURPHY 2022 60 [facility] [place] [facility] METOPROLOL SUCCINATE 25MG TAB,SA TAKE THREE TABLETS BY MOUTH EVERY DAY FOR HEART AND BLOOD PRESSURE ORAL ACTIVE 10/09/2024 [id number] 4 LYUBOV YEUNG 2023 270 [place] [facility] METOPROLOL SUCCINATE 50MG TAB,SA TAKE ONE TABLET BY MOUTH EVERY DAY FOR HEART AND BLOOD PRESSURE ORAL DISCONT INUED (EDIT) 10/27/2023 [id number] 4 KEITH CRANE 2022 90 [facility] [place] [facility] MULTIVIT/OP HTH AREDS2/LUTE IN/ZEAXANTH IN CAP/TAB TAKE 1 CAP/TAB BY MOUTH TWICE A DAY WITH MEALS ORAL ACTIVE 02/24/2025 [id number] 4 MARIUSZ PHILLIPS 2023 120 [place] [facility] MULTIVIT/OP HTH AREDS2/LUTE IN/ZEAXANTH IN CAP/TAB TAKE 1 CAP/TAB BY MOUTH TWICE A DAY WITH MEALS ORAL DISCONT INUED 12/28/2023 [id number] 4 KEITH CRANE 2022 120 [place] [facility] MULTIVITAMI NS CAP/TAB TAKE 1 TABLET BY MOUTH EVERY DAY FOR SUPPLEME NT ORAL ACTIVE 03/12/2025 [id number] JACQUELINEMARIUSZ Garza 2023 100 [place] [facility] MULTIVITAMI NS CAP/TAB TAKE 1 TABLET BY MOUTH EVERY DAY ORAL 2023 [id number] KEITH CRANE 2022 100 [place] [facility] OMEPRAZOLE 20MG CAP,EC TAKE ONE CAPSULE BY MOUTH EVERY MORNING AND TAKE TWO CAPSULES EVERY EVENING ON AN EMPTY STOMACH, AT LEAST 30 MINUTES PRIOR TO A MEAL FOR REFRACTO RY GERD ORAL DISCONT INUED 07/12/2023 [id number] INGRID BURLESON 2021 270 [place] [facility] OMEPRAZOLE 40MG CAP,EC TAKE ONE CAPSULE BY MOUTH TWICE A DAY ON AN EMPTY STOMACH, AT LEAST 30 MINUTES PRIOR TO A MEAL TO DECREASE STOMACH ACID ORAL ACTIVE 09/19/2024 [id number] 4 JACQUELINETANKEDY Arreola 2023 180 [place] [facility] SEMAGLUTIDE 0.25MG/0.37 5ML INJ,SOLN,PE N,3ML INJECT 0.5MG UNDER THE SKIN EVERY WEEK DIABETES AND WEIGHT LOSS SUBCUT ANEOUS DISCONT INUED BY ANGEL Khan 12/03/2024 [id number] 4 ADELE KINCAID 2023 1 [place] [facility] SEMAGLUTIDE 0.25MG/0.37 5ML INJ,SOLN,PE N,3ML INJECT 0.5MG UNDER THE SKIN EVERY WEEK DIABETES AND WEIGHT LOSS SUBCUT ANEOUS DISCONT INUED 11/08/2023 [id number] ADELE KINCAID 2022 1 [place] VENLAFAXINE HCL 150MG 24HR CAP,SA TAKE ONE CAPSULE BY MOUTH EVERY DAY ORAL ACTIVE 12/05/2024 [id number] 4 LORETA HONEYCUTT 2023 90 [place] VENLAFAXINE HCL 150MG 24HR CAP,SA TAKE ONE CAPSULE BY MOUTH EVERY DAY ORAL DISCONT INUED 11/24/2023 [id number] 4 USHA PURI 2022 90 [facility] Allergies, Adverse Reactions, Alerts Combined list of allergies from Department of Defense and Veterans Affairs facilities. It does not include entries that were removed or entered in error. Substance Category Reaction Severity Reaction type Status Date Reported Comments Source TOM Jolley Propensity to adverse reactions to drug (finding) Dizziness, Fatigue MILD active 2 [facility] SULFAMETHOXA ZOLE Propensity to adverse reactions to drug (finding) Acute renal impairment active 2 [facility] Immunizations Combined list of available immunizations from the Department of [facility] and Veterans Affairs facilities. Immunization Series Date Given Administered By Site Reaction Lot Number CVX Code Drug Enrollment Management Vice President Status Comments Source TDAP 2023 BREONNA SALTER LEFT DELTO ID [id number] 115 complet ed [facility] COVID-19 (PFIZER), MRNA, LNP-S, PF, JERI-SUCROSE, 30 MCG/0.3 ML (AGES 12+ YEARS) 2023 SUSAN MEIER LEFT DELTO ID [id number] 309 complet ed [facility] PNEUMOCOCCAL CONJUGATE PCV20, POLYSACCHARID E [id number] CONJUGATE, ADJUVANT, PF 2023 DIVINAS,CAMILLA A RIGHT DELTO ID [id number] 216 complet ed [facility] INFLUENZA, HIGH-DOSE, TRIVALENT, PF 2023 SHADES,CAMILLA A LEFT DELTO ID [id number] 135 complet ed [facility] INFLUENZA VACCINE, QUADRIVALENT, ADJUVANTED 2022 SUSAN MEIER LEFT DELTO ID [id number] 205 complet ed [facility] ZOSTER RECOMBINANT 2 2021 187 complet ed [facility] COVID-19 (MODERNA), MRNA, LNP-S, PF, 100 MCG/0.5ML DOSE OR 50 MCG/0.25ML DOSE 4 2021 207 complet ed [facility] ZOSTER RECOMBINANT 1 2021 187 complet ed [facility] COVID-19 (MODERNA), MRNA, LNP-S, PF, 100 MCG/0.5ML DOSE OR 50 MCG/0.25ML DOSE 3 2020 207 complet ed [facility] INFLUENZA, HIGH DOSE SEASONAL 2020 135 complet ed [facility] INFLUENZA, UNSPECIFIED FORMULATION 2020 88 complet ed [facility] COVID-19 (MODERNA), MRNA, LNP-S, PF, 100 MCG/0.5 ML DOSE 1 2020 207 complet ed [facility] COVID-19 (MODERNA), MRNA, LNP-S, PF, 100 MCG/0.5ML DOSE OR 50 MCG/0.25ML DOSE 2020 207 complet ed [facility] COVID-19 (MODERNA), MRNA, LNP-S, PF, 100 MCG/0.5 ML DOSE 1 2020 207 complet ed [facility] INFLUENZA, INJECTABLE, QUADRIVALENT, PRESERVATIVE FREE 2019 150 complet ed [facility] ZOSTER RECOMBINANT 1 2018 187 complet ed [facility] INFLUENZA, SEASONAL, INJECTABLE, PRESERVATIVE FREE 2017 140 complet ed [facility] INFLUENZA, HIGH DOSE SEASONAL 2016 135 complet ed [facility] PNEUMOCOCCAL POLYSACCHARID E PPV23 2016 33 complet ed [facility], [id number], EX 01/01/2018 [facility] INFLUENZA, HIGH DOSE SEASONAL 2016 135 complet ed [facility] PNEUMOCOCCAL CONJUGATE PCV 13 2015 133 complet ed 000 [facility] INFLUENZA, HIGH DOSE SEASONAL 2014 135 complet ed [facility] INFLUENZA, SEASONAL, INJECTABLE 2014 141 complet ed [facility] INFLUENZA, SEASONAL, INJECTABLE 2013 141 complet ed [facility] INFLUENZA, INJECTABLE, QUADRIVALENT 2013 158 complet ed [facility] INFLUENZA, UNSPECIFIED FORMULATION 2012 88 complet ed [facility] TDAP 2012 115 complet ed 2R45M/04/12 [facility] ZOSTER LIVE 2012 121 complet ed [id number] [facility] INFLUENZA, UNSPECIFIED FORMULATION 2012 88 complet ed [facility] PNEUMOCOCCAL POLYSACCHARID E PPV23 2011 33 complet ed [facility] INFLUENZA, UNSPECIFIED FORMULATION 2010 88 complet ed [facility] PNEUMOCOCCAL, UNSPECIFIED FORMULATION 2010 109 complet ed [facility] INFLUENZA, SEASONAL, INJECTABLE, PRESERVATIVE FREE 2009 140 complet ed [facility] TD(ADULT) UNSPECIFIED FORMULATION 2007 139 complet ed [facility] INFLUENZA, SEASONAL, INJECTABLE 2002 141 complet ed [facility] INFLUENZA, UNSPECIFIED FORMULATION 1997 88 complet ed [facility] PNEUMOCOCCAL POLYSACCHARID E PPV23 1997 33 complet ed [facility] Results Combined list of recent chemistry, hematology and other laboratory results from Department of Defense and Veterans Affairs, ranging from 15 months to all on record, depending upon the facility. Order Name Results Value Reference Range Date Interpretation Specimen Comments Source BNP NATRIURETI C PEPTIDE B [MASS/VOLU ME] IN SERUM OR PLASMA 55 pg/mL <99 - 99 07/13 Specimen Type: PLASMA No comment entered. Ordering Provider: MACO STANLEY Report Released Date/Time: Jul 13, 2024 11:12 AM Reporting Lab: [facility] [address] Performing Lab: [facility] [address] [facility] COMPREHE NSIVE METABOLI C PANEL+MG CREATININE [MASS/VOLU ME] IN SERUM OR PLASMA 1.1 mg/dL 0.7 - 1.2 07/13 Specimen Type: PLASMA No comment entered. Ordering Provider: MACO STANLEY Report Released Date/Time: Jul 13, 2024 11:12 AM Reporting Lab: [facility] [address] Performing Lab: [facility] [address] [facility] COMPREHE NSIVE METABOLI C PANEL+MG UREA NITROGEN [MASS/VOLU ME] IN SERUM OR PLASMA 29 mg/dL 8 - 26 07/13 H Specimen Type: PLASMA No comment entered. Ordering Provider: MACO STANLEY Report Released Date/Time: Jul 13, 2024 11:12 AM Reporting Lab: [facility] [address] Performing Lab: [facility] [address] [place] [facility] COMPREHE NSIVE METABOLI C PANEL+MG GLUCOSE [MASS/VOLU ME] IN SERUM OR PLASMA 168 mg/dL 70 - 100 07/13 H Specimen Type: PLASMA No comment entered. Ordering Provider: MACO STANLEY Report Released Date/Time: Jul 13, 2024 11:12 AM Reporting Lab: [facility] [address] Performing Lab: [facility] [address] [place] [facility] COMPREHE NSIVE METABOLI C PANEL+MG SODIUM [MOLES/VOL UME] IN SERUM OR PLASMA 144 mmol/L 136 - 145 07/13 Specimen Type: PLASMA No comment entered. Ordering Provider: MACO STANLEY Report Released Date/Time: Jul 13, 2024 11:12 AM Reporting Lab: [facility] [address] Performing Lab: [facility] [address] [place] [facility] COMPREHE NSIVE METABOLI C PANEL+MG POTASSIUM [MOLES/VOL UME] IN SERUM OR PLASMA 4.5 mmol/L 3.5 - 5.1 07/13 Specimen Type: PLASMA No comment entered. Ordering Provider: MACO STANLEY Report Released Date/Time: Jul 13, 2024 11:12 AM Reporting Lab: [facility] [address] Performing Lab: [facility] [address] [place] [facility] COMPREHE NSIVE METABOLI C PANEL+MG CHLORIDE [MOLES/VOL UME] IN SERUM OR PLASMA 105 mmol/L 98 - 107 07/13 Specimen Type: PLASMA No comment entered. Ordering Provider: MACO STANLEY Report Released Date/Time: Jul 13, 2024 11:12 AM Reporting Lab: [facility] [address] Performing Lab: [facility] [address] [place] [facility] COMPREHE NSIVE METABOLI C PANEL+MG CARBON DIOXIDE, TOTAL [MOLES/VOL UME] IN SERUM OR PLASMA 34 mmol/L 22 - 29 07/13 H Specimen Type: PLASMA No comment entered. Ordering Provider: MACO STANLEY Report Released Date/Time: Jul 13, 2024 11:12 AM Reporting Lab: [facility] [address] Performing Lab: [facility] [address] [place] [facility] COMPREHE NSIVE METABOLI C PANEL+MG CALCIUM [MASS/VOLU ME] IN SERUM OR PLASMA 9.5 mg/dL 8.4 - 10.2 07/13 Specimen Type: PLASMA No comment entered. Ordering Provider: MACO STANLEY Report Released Date/Time: Jul 13, 2024 11:12 AM Reporting Lab: [facility] [address] Performing Lab: [facility] [address] [facility] COMPREHE NSIVE METABOLI C PANEL+MG PROTEIN [MASS/VOLU ME] IN SERUM OR PLASMA 6.5 g/dL 6.4 - 8.3 07/13 Specimen Type: PLASMA No comment entered. Ordering Provider: MACO STANLEY Report Released Date/Time: Jul 13, 2024 11:12 AM Reporting Lab: [facility] [address] Performing Lab: [facility] [address] [facility] COMPREHE NSIVE METABOLI C PANEL+MG ALBUMIN [MASS/VOLU ME] IN SERUM OR PLASMA 4.1 g/dL 3.5 - 5.0 07/13 Specimen Type: PLASMA No comment entered. Ordering Provider: MACO STANLEY Report Released Date/Time: Jul 13, 2024 11:12 AM Reporting Lab: [facility] [address] Performing Lab: [facility] [address] [facility] COMPREHE NSIVE METABOLI C PANEL+MG BILIRUBIN. TOTAL [MASS/VOLU ME] IN SERUM OR PLASMA 0.5 mg/dL 0.2 - 1.2 07/13 Specimen Type: PLASMA No comment entered. Ordering Provider: MACO STANLEY Report Released Date/Time: Jul 13, 2024 11:12 AM Reporting Lab: [facility] [address] Performing Lab: [facility] [address] [place] [facility] COMPREHE NSIVE METABOLI C PANEL+MG MAGNESIUM [MASS/VOLU ME] IN SERUM OR PLASMA 1.8 mg/dL 1.6 - 2.6 07/13 Specimen Type: PLASMA No comment entered. Ordering Provider: MACO STANLEY Report Released Date/Time: Jul 13, 2024 11:12 AM Reporting Lab: [facility] [address] Performing Lab: [facility] [address] [place] [facility] COMPREHE NSIVE METABOLI C PANEL+MG ANION GAP IN SERUM OR PLASMA 5 mmol/L 5 - 15 07/13 Specimen Type: PLASMA No comment entered. Ordering Provider: MACO STANLEY Report Released Date/Time: Jul 13, 2024 11:12 AM Reporting Lab: [facility] [address] Performing Lab: [facility] [address] [place] [facility] COMPREHE NSIVE METABOLI C PANEL+MG ALKALINE PHOSPHATAS E [ENZYMATIC ACTIVITY/V OLUME] IN SERUM OR PLASMA 80 U/L 40 - 150 07/13 Specimen Type: PLASMA No comment entered. Ordering Provider: MACO STANLEY Report Released Date/Time: Jul 13, 2024 11:12 AM Reporting Lab: [facility] [address] Performing Lab: [facility] [address] [place] [facility] COMPREHE NSIVE METABOLI C PANEL+MG ALANINE AMINOTRANS FERASE [ENZYMATIC ACTIVITY/V OLUME] IN SERUM OR PLASMA 13 U/L <44 - 44 07/13 Specimen Type: PLASMA No comment entered. Ordering Provider: MACO STANLEY Report Released Date/Time: Jul 13, 2024 11:12 AM Reporting Lab: [facility] [address] Performing Lab: [facility] [address] [place] [facility] COMPREHE NSIVE METABOLI C PANEL+MG ASPARTATE AMINOTRANS FERASE [ENZYMATIC ACTIVITY/V OLUME] IN SERUM OR PLASMA 17 U/L - 34 07/13 Specimen Type: PLASMA No comment entered. Ordering Provider: MACO STANLEY Report Released Date/Time: Jul 13, 2024 11:12 AM Reporting Lab: [facility] [address] Performing Lab: [facility] [address] [place] [facility] COMPREHE NSIVE METABOLI C PANEL+MG GLOMERULAR FILTRATION RATE/1.73 SQ M.PREDICTE D [VOLUME RATE/AREA] IN SERUM, PLASMA OR BLOOD BY CREATININE -BASED FORMULA (CKD-EPI 2020) 70 60 07/13 Specimen Type: PLASMA No comment entered. Ordering Provider: MACO STANLEY Report Released Date/Time: Jul 13, 2024 11:12 AM Reporting Lab: [facility] [address] Performing Lab: [facility] [address] [place] [facility] CBC & DIFF LEUKOCYTES [#/VOLUME] IN BLOOD BY AUTOMATED COUNT 6.4 4.0 - 11.0 06/12 Specimen Type: BLOOD Comment: Automated Differentia l Performed Ordering Provider: ADA MICHELLE Report Released Date/Time: May 26, 2024 09:45 AM Reporting Lab: [facility] [id number] Performing Lab: [facility] [id number] [facility] CBC & DIFF ERYTHROCYT ES [#/VOLUME] IN BLOOD BY AUTOMATED COUNT 4.05 4.60 - 6.20 06/12 L Specimen Type: BLOOD Comment: Automated Differentia l Performed Ordering Provider: ADA MICHELLE Report Released Date/Time: May 26, 2024 09:45 AM Reporting Lab: [facility] [id number] Performing Lab: [facility] [phone] [facility] CBC & DIFF HEMOGLOBIN [MASS/VOLU ME] IN BLOOD 11.8 g/dL 13.5 - 17.9 06/12 L Specimen Type: BLOOD Comment: Automated Differentia l Performed Ordering Provider: ADA MICHELLE Report Released Date/Time: May 26, 2024 09:45 AM Reporting Lab: [facility] [address] Performing Lab: [facility] [address] [place] [facility] CBC & DIFF HEMATOCRIT [VOLUME FRACTION] OF BLOOD BY AUTOMATED COUNT 37.5 41.0 - 54.0 06/12 L Specimen Type: BLOOD Comment: Automated Differentia l Performed Ordering Provider: ADA MICHELLE Report Released Date/Time: May 26, 2024 09:45 AM Reporting Lab: [facility] [address] Performing Lab: [facility] [address] [place] [facility] CBC & DIFF MCV [ENTITIC VOLUME] BY AUTOMATED COUNT 92.6 fL 80.0 - 100.0 06/12 Specimen Type: BLOOD Comment: Automated Differentia l Performed Ordering Provider: ADA MICHELLE Report Released Date/Time: May 26, 2024 09:45 AM Reporting Lab: [facility] [address] Performing Lab: [facility] [address] [place] [facility] CBC & DIFF MCH [ENTITIC MASS] BY AUTOMATED COUNT 29.1 pg 27.0 - 33.0 06/12 Specimen Type: BLOOD Comment: Automated Differentia l Performed Ordering Provider: ADA MICHELLE Report Released Date/Time: May 26, 2024 09:45 AM Reporting Lab: [facility] [address] Performing Lab: [facility] [address] [place] [facility] CBC & DIFF MCHC [MASS/VOLU ME] BY AUTOMATED COUNT 31.5 g/dL 32.0 - 37.5 06/12 L Specimen Type: BLOOD Comment: Automated Differentia l Performed Ordering Provider: ADA MICHELLE Report Released Date/Time: May 26, 2024 09:45 AM Reporting Lab: [facility] [address] Performing Lab: [facility] [address] [place] [facility] CBC & DIFF PLATELETS [#/VOLUME] IN BLOOD BY AUTOMATED COUNT 298 150 - 400 06/12 Specimen Type: BLOOD Comment: Automated Differentia l Performed Ordering Provider: ADA MICHELLE Report Released Date/Time: May 26, 2024 09:45 AM Reporting Lab: [facility] [address] Performing Lab: [facility] [address] [place] [facility] CBC & DIFF PLATELET MEAN VOLUME [ENTITIC VOLUME] IN BLOOD BY AUTOMATED COUNT 9.0 fL 9.1 - 13.0 06/12 L Specimen Type: BLOOD Comment: Automated Differentia l Performed Ordering Provider: ADA MICHELLE Report Released Date/Time: May 26, 2024 09:45 AM Reporting Lab: [facility] [address] Performing Lab: [facility] [address] [place] [facility] CBC & DIFF NEUTROPHIL S/100 LEUKOCYTES IN BLOOD BY MANUAL COUNT 54.5 40.0 - 80.0 06/12 Specimen Type: BLOOD Comment: Automated Differentia l Performed Ordering Provider: ADA MICHELLE Report Released Date/Time: May 26, 2024 09:45 AM Reporting Lab: [facility] [address] Performing Lab: [facility] [address] [place] [facility] CBC & DIFF LYMPHOCYTE S/100 LEUKOCYTES IN BLOOD BY MANUAL COUNT 31.6 15.0 - 45.0 06/12 Specimen Type: BLOOD Comment: Automated Differentia l Performed Ordering Provider: ADA MICHELLE Report Released Date/Time: May 26, 2024 09:45 AM Reporting Lab: [facility] [address] Performing Lab: [facility] [address] [place] [facility] CBC & DIFF MONOCYTES/ 100 LEUKOCYTES IN BLOOD BY AUTOMATED COUNT 9.2 2.0 - 12.0 06/12 Specimen Type: BLOOD Comment: Automated Differentia l Performed Ordering Provider: ADA MICHELLE Report Released Date/Time: May 26, 2024 09:45 AM Reporting Lab: [facility] [address] Performing Lab: [facility] [address] [place] [facility] CBC & DIFF EOSINOPHIL S/100 LEUKOCYTES IN BLOOD BY AUTOMATED COUNT 3.9 0.0 - 6.0 06/12 Specimen Type: BLOOD Comment: Automated Differentia l Performed Ordering Provider: ADA MICHELLE Report Released Date/Time: May 26, 2024 09:45 AM Reporting Lab: [facility] [address] Performing Lab: [facility] [address] [place] [facility] CBC & DIFF BASOPHILS/ 100 LEUKOCYTES IN BLOOD BY MANUAL COUNT 0.5 0.0 - 2.0 06/12 Specimen Type: BLOOD Comment: Automated Differentia l Performed Ordering Provider: ADA MICHELLE Report Released Date/Time: May 26, 2024 09:45 AM Reporting Lab: [facility] [address] Performing Lab: [facility] [address] [place] [facility] CBC & DIFF ERYTHROCYT E DISTRIBUTI ON WIDTH [RATIO] BY AUTOMATED COUNT 14.1 11.5 - 14.5 06/12 Specimen Type: BLOOD Comment: Automated Differentia l Performed Ordering Provider: ADA MICHELLE Report Released Date/Time: May 26, 2024 09:45 AM Reporting Lab: [facility] [address] Performing Lab: [facility] [address] [place] [facility] CBC & DIFF LYMPHOCYTE S [#/VOLUME] IN BLOOD BY AUTOMATED COUNT 2.0 1.0 - 4.0 06/12 Specimen Type: BLOOD Comment: Automated Differentia l Performed Ordering Provider: ADA MICHELLE Report Released Date/Time: May 26, 2024 09:45 AM Reporting Lab: [facility] [address] Performing Lab: [facility] [address] [place] [facility] CBC & DIFF MONOCYTES [#/VOLUME] IN BLOOD BY AUTOMATED COUNT 0.6 0.1 - 1.0 06/12 Specimen Type: BLOOD Comment: Automated Differentia l Performed Ordering Provider: ADA MICHELLE Report Released Date/Time: May 26, 2024 09:45 AM Reporting Lab: [facility] [address] Performing Lab: [facility] [address] [place] [facility] CBC & DIFF NEUTROPHIL S [#/VOLUME] IN BLOOD BY AUTOMATED COUNT 3.5 2.0 - 7.7 06/12 Specimen Type: BLOOD Comment: Automated Differentia l Performed Ordering Provider: ADA MICHELLE Report Released Date/Time: May 26, 2024 09:45 AM Reporting Lab: [facility] [address] Performing Lab: [facility] [address] [place] [facility] CBC & DIFF EOSINOPHIL S [#/VOLUME] IN BLOOD BY AUTOMATED COUNT 0.3 0.0 - 0.5 06/12 Specimen Type: BLOOD Comment: Automated Differentia l Performed Ordering Provider: ADA MICHELLE Report Released Date/Time: May 26, 2024 09:45 AM Reporting Lab: [facility] [address] Performing Lab: [facility] [address] [place] [facility] CBC & DIFF BASOPHILS [#/VOLUME] IN BLOOD BY AUTOMATED COUNT 0.0 0.0 - 0.2 06/12 Specimen Type: BLOOD Comment: Automated Differentia l Performed Ordering Provider: ADA MICHELLE Report Released Date/Time: May 26, 2024 09:45 AM Reporting Lab: [facility] [address] Performing Lab: [facility] [address] [place] [facility] CBC & DIFF IG(META,MY [place],PRO) 0.3 06/12 Specimen Type: BLOOD Comment: Automated Differentia l Performed Ordering Provider: ADA MICHELLE Report Released Date/Time: May 26, 2024 09:45 AM Reporting Lab: [facility] [address] Performing Lab: [facility] [address] [place] [facility] CBC & DIFF IMMATURE GRANULOCYT ES [PRESENCE] IN BLOOD BY AUTOMATED COUNT 0.0 0.0 - 0.1 06/12 Specimen Type: BLOOD Comment: Automated Differentia l Performed Ordering Provider: ADA MICHELLE Report Released Date/Time: May 26, 2024 09:45 AM Reporting Lab: [facility] [address] Performing Lab: [facility] [address] [place] [facility] CBC & DIFF RETICULOCY TE PRODUCTION INDEX 30.5 pg 28.2 - 36.6 06/12 Specimen Type: BLOOD Comment: Automated Differentia l Performed Ordering Provider: AAD MICHELLE Report Released Date/Time: May 26, 2024 09:45 AM Reporting Lab: [facility] [address] Performing Lab: [facility] [address] [place] [facility] COMPREHE NSIVE METABOLI C PANEL+MG CREATININE [MASS/VOLU ME] IN SERUM OR PLASMA 1.0 mg/dL 0.7 - 1.2 06/12 Specimen Type: PLASMA No comment entered. Ordering Provider: ADA MICHELLE Report Released Date/Time: May 26, 2024 09:45 AM Reporting Lab: [facility] [address] Performing Lab: [facility] [address] [place] [facility] COMPREHE NSIVE METABOLI C PANEL+MG UREA NITROGEN [MASS/VOLU ME] IN SERUM OR PLASMA 22 mg/dL 8 - 26 06/12 Specimen Type: PLASMA No comment entered. Ordering Provider: ADA MICHELLE Report Released Date/Time: May 26, 2024 09:45 AM Reporting Lab: [facility] [address] Performing Lab: [facility] [address] [place] [facility] COMPREHE NSIVE METABOLI C PANEL+MG GLUCOSE [MASS/VOLU ME] IN SERUM OR PLASMA 132 mg/dL 70 - 100 06/12 H Specimen Type: PLASMA No comment entered. Ordering Provider: ADA MICHELLE Report Released Date/Time: May 26, 2024 09:45 AM Reporting Lab: [facility] [address] Performing Lab: [facility] [address] [place] [facility] COMPREHE NSIVE METABOLI C PANEL+MG SODIUM [MOLES/VOL UME] IN SERUM OR PLASMA 142 mmol/L 136 - 145 06/12 Specimen Type: PLASMA No comment entered. Ordering Provider: ADA MICHELLE Report Released Date/Time: May 26, 2024 09:45 AM Reporting Lab: [facility] [address] Performing Lab: [facility] [address] [place] [facility] COMPREHE NSIVE METABOLI C PANEL+MG POTASSIUM [MOLES/VOL UME] IN SERUM OR PLASMA 4.2 mmol/L 3.5 - 5.1 06/12 Specimen Type: PLASMA No comment entered. Ordering Provider: ADA MICHELLE Report Released Date/Time: May 26, 2024 09:45 AM Reporting Lab: [facility] [address] Performing Lab: [facility] [address] [place] [facility] COMPREHE NSIVE METABOLI C PANEL+MG CHLORIDE [MOLES/VOL UME] IN SERUM OR PLASMA 104 mmol/L 98 - 107 06/12 Specimen Type: PLASMA No comment entered. Ordering Provider: ADA MICHELLE Report Released Date/Time: May 26, 2024 09:45 AM Reporting Lab: [facility] [address] Performing Lab: [facility] [address] [place] [facility] COMPREHE NSIVE METABOLI C PANEL+MG CARBON DIOXIDE, TOTAL [MOLES/VOL UME] IN SERUM OR PLASMA 32 mmol/L 22 - 29 06/12 H Specimen Type: PLASMA No comment entered. Ordering Provider: ADA MICHELLE Report Released Date/Time: May 26, 2024 09:45 AM Reporting Lab: [facility] [address] Performing Lab: [facility] [address] [place] [facility] COMPREHE NSIVE METABOLI C PANEL+MG CALCIUM [MASS/VOLU ME] IN SERUM OR PLASMA 9.0 mg/dL 8.4 - 10.2 06/12 Specimen Type: PLASMA No comment entered. Ordering Provider: ADA MICHELLE Report Released Date/Time: May 26, 2024 09:45 AM Reporting Lab: [facility] [address] Performing Lab: [facility] [address] [place] [facility] COMPREHE NSIVE METABOLI C PANEL+MG PROTEIN [MASS/VOLU ME] IN SERUM OR PLASMA 5.9 g/dL 6.4 - 8.3 06/12 L Specimen Type: PLASMA No comment entered. Ordering Provider: ADA MICHELLE Report Released Date/Time: May 26, 2024 09:45 AM Reporting Lab: [facility] [address] Performing Lab: [facility] [address] [place] [facility] COMPREHE NSIVE METABOLI C PANEL+MG ALBUMIN [MASS/VOLU ME] IN SERUM OR PLASMA 3.8 g/dL 3.5 - 5.0 06/12 Specimen Type: PLASMA No comment entered. Ordering Provider: ADA MICHELLE Report Released Date/Time: May 26, 2024 09:45 AM Reporting Lab: [facility] [address] Performing Lab: [facility] [address] [place] [facility] COMPREHE NSIVE METABOLI C PANEL+MG BILIRUBIN. TOTAL [MASS/VOLU ME] IN SERUM OR PLASMA 0.2 mg/dL 0.2 - 1.2 06/12 Specimen Type: PLASMA No comment entered. Ordering Provider: ADA MICHELLE Report Released Date/Time: May 26, 2024 09:45 AM Reporting Lab: [facility] [address] Performing Lab: [facility] [address] [place] [facility] COMPREHE NSIVE METABOLI C PANEL+MG MAGNESIUM [MASS/VOLU ME] IN SERUM OR PLASMA 1.6 mg/dL 1.6 - 2.6 06/12 Specimen Type: PLASMA No comment entered. Ordering Provider: ADA MICHELLE Report Released Date/Time: May 26, 2024 09:45 AM Reporting Lab: [facility] [address] Performing Lab: [facility] [address] [place] [facility] COMPREHE NSIVE METABOLI C PANEL+MG ANION GAP IN SERUM OR PLASMA 6 mmol/L 5 - 15 06/12 Specimen Type: PLASMA No comment entered. Ordering Provider: ADA MICHELLE Report Released Date/Time: May 26, 2024 09:45 AM Reporting Lab: [facility] [address] Performing Lab: [facility] [address] [place] [facility] COMPREHE NSIVE METABOLI C PANEL+MG ALKALINE PHOSPHATAS E [ENZYMATIC ACTIVITY/V OLUME] IN SERUM OR PLASMA 74 U/L 40 - 150 06/12 Specimen Type: PLASMA No comment entered. Ordering Provider: AAD MICHELLE Report Released Date/Time: May 26, 2024 09:45 AM Reporting Lab: [facility] [address] Performing Lab: [facility] [address] [place] [facility] COMPREHE NSIVE METABOLI C PANEL+MG ALANINE AMINOTRANS FERASE [ENZYMATIC ACTIVITY/V OLUME] IN SERUM OR PLASMA 14 U/L <44 - 44 06/12 Specimen Type: PLASMA No comment entered. Ordering Provider: ADA MICHELLE Report Released Date/Time: May 26, 2024 09:45 AM Reporting Lab: [facility] [address] Performing Lab: [facility] [address] [place] [facility] COMPREHE NSIVE METABOLI C PANEL+MG ASPARTATE AMINOTRANS FERASE [ENZYMATIC ACTIVITY/V OLUME] IN SERUM OR PLASMA 20 U/L 11 - 34 06/12 Specimen Type: PLASMA No comment entered. Ordering Provider: ADA MICHELLE Report Released Date/Time: May 26, 2024 09:45 AM Reporting Lab: [facility] [address] Performing Lab: [facility] [address] [place] [facility] COMPREHE NSIVE METABOLI C PANEL+MG GLOMERULAR FILTRATION RATE/1.73 SQ M.PREDICTE D [VOLUME RATE/AREA] IN SERUM, PLASMA OR BLOOD BY CREATININE -BASED FORMULA (CKD-EPI 2020) 78 60 06/12 Specimen Type: PLASMA No comment entered. Ordering Provider: ADA MICHELLE Report Released Date/Time: May 26, 2024 09:45 AM Reporting Lab: [facility] [address] Performing Lab: [facility] [address] [place] [facility] PHOSPHOR US PHOSPHATE [MASS/VOLU ME] IN SERUM OR PLASMA 3.4 mg/dL 2.3 - 4.3 06/12 Specimen Type: PLASMA No comment entered. Ordering Provider: ADA MICHELLE Report Released Date/Time: May 26, 2024 09:45 AM Reporting Lab: [facility] [address] Performing Lab: [facility] [address] [place] [facility] RETICS RETICULOCY TIMO/100 ERYTHROCYT ES IN BLOOD BY AUTOMATED COUNT 0.0429 0.0300 - 0.1000 06/12 Specimen Type: BLOOD Comment: Automated Differentia l Performed Ordering Provider: ADA MICHELLE Report Released Date/Time: May 26, 2024 09:53 AM Reporting Lab: [facility] [address] Performing Lab: [facility] [address] [place] [facility] RETICS RETICULOCY TIMO/100 ERYTHROCYT ES IN BLOOD BY AUTOMATED COUNT 1.06 0.6 - 2.0 06/12 Specimen Type: BLOOD Comment: Automated Differentia l Performed Ordering Provider: ADA MICHELLE Report Released Date/Time: May 26, 2024 09:53 AM Reporting Lab: [facility] [address] Performing Lab: [facility] [address] [place] [facility] RETICS IMMATURE RETICULOCY TIMO/RETICU LOCYTES.TO ANA IN BLOOD 5.9 1.0 - 14.0 06/12 Specimen Type: BLOOD Comment: Automated Differentia l Performed Ordering Provider: ADA MICHELLE Report Released Date/Time: May 26, 2024 09:53 AM Reporting Lab: [facility] [address] Performing Lab: [facility] [address] [place] [facility] RETICS RETICULOCY TE PRODUCTION INDEX 30.5 pg 28.2 - 36.6 06/12 Specimen Type: BLOOD Comment: Automated Differentia l Performed Ordering Provider: ADA MICHELLE Report Released Date/Time: May 26, 2024 09:53 AM Reporting Lab: [facility] [address] Performing Lab: [facility] [address] [place] [facility] URINALYS IS COLOR OF URINE YELLOW 06/03 Specimen Type: URINE No comment entered. Ordering Provider: DESIREE YEUNG NNOR R Report Released Date/Time: Jun 03, 2024 10:39 AM Reporting Lab: [facility] [address] Performing Lab: [facility] [address] [place] [facility] URINALYS IS SPECIFIC GRAVITY OF URINE 1.018 1.003 - 1.035 06/03 Specimen Type: URINE No comment entered. Ordering Provider: DESIREE YEUNG NNOR R Report Released Date/Time: Jun 03, 2024 10:39 AM Reporting Lab: [facility] [address] Performing Lab: [facility] [address] [place] [facility] URINALYS IS BILIRUBIN. TOTAL [PRESENCE] IN URINE BY TEST STRIP NEGATIVE 06/03 Specimen Type: URINE No comment entered. Ordering Provider: DESIREE YEUNG NNOR R Report Released Date/Time: Jun 03, 2024 10:39 AM Reporting Lab: [facility] [address] Performing Lab: [facility] [address] [place] [facility] URINALYS IS KETONES [MASS/VOLU ME] IN URINE BY TEST STRIP NEGATIVE 06/03 Specimen Type: URINE No comment entered. Ordering Provider: DESIREE YEUNG NNOR R Report Released Date/Time: Jun 03, 2024 10:39 AM Reporting Lab: [facility] [address] Performing Lab: [facility] [address] [place] [facility] URINALYS IS GLUCOSE [MASS/VOLU ME] IN URINE BY TEST STRIP 500 mg/dL <30 - 30 06/03 Specimen Type: URINE No comment entered. Ordering Provider: DESIREE YEUNG NNOR R Report Released Date/Time: Jun 03, 2024 10:39 AM Reporting Lab: [facility] [address] Performing Lab: [facility] [address] [place] [facility] URINALYS IS PROTEIN [MASS/VOLU ME] IN URINE BY TEST STRIP NEGATIVE mg/dL <20 - 20 06/03 Specimen Type: URINE No comment entered. Ordering Provider: DESIREE YEUNG NNOR R Report Released Date/Time: Jun 03, 2024 10:39 AM Reporting Lab: [facility] [address] Performing Lab: [facility] [address] [place] [facility] URINALYS IS PH OF URINE BY TEST STRIP 6.5 5.0 - 8.0 06/03 Specimen Type: URINE No comment entered. Ordering Provider: DESIREE YEUNG NNOR R Report Released Date/Time: Jun 03, 2024 10:39 AM Reporting Lab: [facility] [address] Performing Lab: [facility] [address] [place] [facility] URINALYS IS LEUKOCYTES [#/AREA] IN URINE SEDIMENT BY MICROSCOPY HIGH POWER FIELD 9 /[HPF] 0 - 7 06/03 H Specimen Type: URINE No comment entered. Ordering Provider: DESIREE YEUNG NNOR R Report Released Date/Time: Jun 03, 2024 10:39 AM Reporting Lab: [facility] [address] Performing Lab: [facility] [address] [place] [facility] URINALYS IS BACTERIA [PRESENCE] IN URINE SEDIMENT BY LIGHT MICROSCOPY NONE SEEN 06/03 Specimen Type: URINE No comment entered. Ordering Provider: DESIREE YEUNG NNOR R Report Released Date/Time: Jun 03, 2024 10:39 AM Reporting Lab: [facility] [address] Performing Lab: [facility] [address] [place] [facility] URINALYS IS ERYTHROCYT ES [#/AREA] IN URINE SEDIMENT BY MICROSCOPY HIGH POWER FIELD 3 /[HPF] 0 - 3 06/03 Specimen Type: URINE No comment entered. Ordering Provider: DESIREE YEUNG NNOR R Report Released Date/Time: Jun 03, 2024 10:39 AM Reporting Lab: [facility] [address] Performing Lab: [facility] [address] [place] [facility] URINALYS IS APPEARANCE OF URINE CLEAR 06/03 Specimen Type: URINE No comment entered. Ordering Provider: DESIREE YEUNG NNOR R Report Released Date/Time: Jun 03, 2024 10:39 AM Reporting Lab: [facility] [address] Performing Lab: [facility] [address] [place] [facility] URINALYS IS EPITHELIAL CELLS.SQUA MOUS [#/AREA] IN URINE SEDIMENT BY MICROSCOPY HIGH POWER FIELD <1/[HPF] 06/03 Specimen Type: URINE No comment entered. Ordering Provider: DESIREE YEUNG NNOR R Report Released Date/Time: Jun 03, 2024 10:39 AM Reporting Lab: [facility] [address] Performing Lab: [facility] [address] [place] [facility] URINALYS IS HEMOGLOBIN [PRESENCE] IN URINE BY TEST STRIP NEGATIVE 06/03 Specimen Type: URINE No comment entered. Ordering Provider: DESIREE YEUNG NNOR R Report Released Date/Time: Jun 03, 2024 10:39 AM Reporting Lab: [facility] [address] Performing Lab: [facility] [address] [place] [facility] URINALYS IS NITRITE [PRESENCE] IN URINE BY TEST STRIP NEGATIVE 06/03 Specimen Type: URINE No comment entered. Ordering Provider: DESIREE YEUNG NNOR R Report Released Date/Time: Jun 03, 2024 10:39 AM Reporting Lab: [facility] [address] Performing Lab: [facility] [address] [place] [facility] URINALYS IS LEUKOCYTE ESTERASE [PRESENCE] IN URINE BY TEST STRIP 75 06/03 Specimen Type: URINE No comment entered. Ordering Provider: DESIREE YEUNG Report Released Date/Time: Jun 03, 2024 10:39 AM Reporting Lab: [facility] [address] Performing Lab: [facility] [address] [place] [facility] FINGERST ICK GLUCOSE GLUCOSE [MASS/VOLU ME] IN CAPILLARY BLOOD 148 mg/dL 70 - 100 05/20 H Specimen Type: BLOOD Comment: Save Result Ordering Provider: JOSE PHILLIPS Report Released Date/Time: May 20, 2024 03:03 PM Reporting Lab: [facility] [address] Performing Lab: [facility] [address] [place] [facility] KAPPA/LA MBDA LC FREE,RAT IO KAPPA LIGHT [...] therapy of these disorders. Test Performed by [facility], [employer], [address] [place] [address] Devante Meyer M.D., Ph.D., Director of Laboratorie s , CLIA [id number] Ordering Provider: RENUKA JOHNSON Report Released Date/Time: Apr 24, 2024 04:08 PM Reporting Lab: [facility] [address] Performing Lab: [address] [place] [facility] [place] MBDA LC FREE,RAT IO LAMBDA LIGHT [...] therapy of these disorders. Test Performed by [email or web address], [address] [place] [address] Devante Meyer M.D., Ph.D., Director of Laboratorie s , [place] [id number] Ordering Provider: RENUKA JOHNSON Report Released Date/Time: Apr 24, 2024 04:08 PM Reporting Lab: [facility] [id number] Performing Lab: [address] [place] [facility] [place] MBDA LC FREE,RAT IO [place] LIGHT [...] therapy of these disorders. Test Performed by [employer] [employer], [address] [place] [address] Devante Meyer M.D., Ph.D., Director of Laboratorie s , [place] [id number] Ordering Provider: RENUKA JOHNSON Report Released Date/Time: Apr 24, 2024 04:08 PM Reporting Lab: [facility] [address] Performing Lab: [facility] [id number] [facility] LD,TOTAL LACTATE DEHYDROGEN ASE [ENZYMATIC ACTIVITY/V OLUME] IN SERUM OR PLASMA BY LACTATE TO PYRUVATE REACTION 141 U/L 125 - 220 05/13 Specimen Type: PLASMA No comment entered. Ordering Provider: RENUKA JOHNSON Report Released Date/Time: Apr 24, 2024 04:08 PM Reporting Lab: [facility] [id number] Performing Lab: [facility] [id number] [facility] Vital Signs Combined list of inpatient and outpatient Vital Signs from Department of Defense and Veterans Affairs, ranging from 12 months to all on record, depending upon the facility. Vital Sign Value Date Comments Source SYSTOLIC BLOOD PRESSURE 145 07/13/2024 09:56:56 [facility] DIASTOLIC BLOOD PRESSURE 77 07/13/2024 09:56:56 [facility] PULSE OXIMETRY 94 07/13/2024 09:56:56 [facility] WEIGHT 175 07/13/2024 09:56:56 [facility] BMI 27 kg/m2 07/13/2024 09:56:56 [facility] PAIN 0 07/13/2024 09:56:56 [facility] TEMPERATURE 97.9 07/13/2024 09:56:56 [facility] PULSE 65 07/13/2024 09:56:56 [facility] RESPIRATION 18 07/13/2024 09:56:56 [facility] SYSTOLIC BLOOD PRESSURE 142 06/23/2024 09:54:57 [facility] DIASTOLIC BLOOD PRESSURE 73 06/23/2024 09:54:57 [facility] PULSE OXIMETRY 99 06/23/2024 09:54:57 [facility] WEIGHT 176.8 06/23/2024 09:54:57 [facility] BMI 27 kg/m2 06/23/2024 09:54:57 [facility] PAIN [...] 06/12/2024 08:50:58 [facility] BMI 26 kg/m2 06/12/2024 08:50:58 [facility] PAIN [...] 06/03/2024 10:12:03 [facility] BMI 25 kg/m2 06/03/2024 10:12:03 [facility] PAIN 1 06/03/2024 10:12:03 [facility] HEIGHT 68 06/03/2024 10:12:03 [facility] PULSE 90 06/03/2024 10:12:03 [facility] RESPIRATION 16 06/03/2024 10:12:03 [facility] SYSTOLIC BLOOD PRESSURE 110 05/26/2024 09:22:56 [facility] DIASTOLIC BLOOD PRESSURE 73 05/26/2024 09:22:56 [facility] PULSE OXIMETRY 98 05/26/2024 09:22:56 [facility] WEIGHT 166.9 05/26/2024 09:22:56 [facility] BMI 25 kg/m2 05/26/2024 09:22:56 [facility] PAIN 4 05/26/2024 09:22:56 [facility] TEMPERATURE 98.6 05/26/2024 09:22:56 [facility] PULSE 88 05/26/2024 09:22:56 [facility] RESPIRATION 19 05/26/2024 09:22:56 [facility] Encounters Combined list of: 1) Encounters from Department of Veterans Affairs facilities going backup to the last 18 months, not all [place] inpatient encounters are included; 2) Encounters from the Department of [facility] facilities going backup to 280 months. Location Location Details Encounter Type Encounter Number Reason For Visit Attending Provider ADM Date DC Date Status Disposition Source [facility] Outpatient Encounter [id number] 03/05 [facility] PRO PHONE CALL 11-20 MIN [id number] Diagnos is: ICD-10- CM E11.8 Type 2 diabete s mellitu s with unspeci fied complic ations CHINYERE,LUCY I M 03/07 [facility] [place] [facility] Outpatient Encounter [id number] 03/07 [facility] [place] [facility] Outpatient Encounter [id number] 03/13 [facility] [place] [facility] Outpatient Encounter [id number] 04/05 [facility] OFFICE O/P EST LOW 20-29 MIN [id number] Diagnos is: ICD-10- CM M16.11 Unilate ral primary osteoar thritis , right hip CAROLINA, RAMCES A 04/19 [facility] [place] [facility] Outpatient Encounter [id number] 05/14 [facility] [place] [facility] Outpatient Encounter [id number] 05/14 [facility] [place] [facility] OFFICE O/P EST HI 40-54 MIN [id number] Diagnos is: ICD-10- CM F31.81 Bipolar II disorde Diego Villa 05/20 [facility] [place] [facility] Outpatient Encounter [id number] 06/04 [facility] SELF CARE MNGMENT TRAINING [id number] Diagnos is: ICD-10- CM F03.A4 Unspeci fied dementi a, mild, with anxiety JAVIER COOK 06/17 [facility] OFFICE O/P EST MOD 30-39 MIN [id number] Diagnos is: ICD-10- CM E66.3 OverHARSH Womack 07/11 [facility] Outpatient Encounter [id number] 08/09 [facility] [place] [facility] Outpatient Encounter [id number] 08/14 [facility] [place] [facility] OFFICE O/P EST MOD 30 MIN [id number] Diagnos is: ICD-10- CM F31.81 Bipolar II disorde Diego Villa 08/21 [facility] EMERGENCY DEPT VISIT MOD MDM [id number] Diagnos is: ICD-10- CM W19.XXX A Unspeci fied fall, initial encount er SA JAXSON CHAVEZ 08/21 [facility] Outpatient Encounter [id number] 08/22 [place] [facility] [place] [facility] Outpatient Encounter [id number] 08/22 [place] [facility] [place] [facility] Outpatient Encounter [id number] 08/23 [place] [facility] [place] [facility] Outpatient Encounter [id number] 08/29 [place] [facility] [place] [facility] Outpatient Encounter [id number] MARYJO SCHOFIELD Elba 09/04 [facility] [place] [facility] Outpatient Encounter [id number] 09/19 [facility] [place] [facility] Outpatient Encounter [id number] 10/01 [facility] [place] [facility] Outpatient Encounter [id number] 10/01 [facility] [place] [facility] OFFICE O/P EST MOD 30 MIN [id number] Diagnos is: ICD-10- CM F31.76 Bipolar disorde r, in full remis, most recent episode depress Diego HONEYCUTT 10/02 [facility] [place] [facility] OFFICE O/P EST MOD 30 MIN [id number] Diagnos is: ICD-10- CM W19.XXX D Unspeci fied fall, subsequ ent encount er IVELISSE, NERSI 10/08 [facility] [place] [facility] Outpatient Encounter [id number] 10/13 [facility] [place] [facility] OFFICE O/P EST MOD 30 MIN [id number] Diagnos is: ICD-10- CM E11.40 Type 2 diabete s mellitu s with diabeti c neuropa thy, unsp HARSH ALVAREZ 11/06 [facility] [place] [facility] OFFICE O/P EST MOD 30 MIN [id number] Diagnos is: ICD-10- CM F31.76 Bipolar disorde r, in full remis, most recent episode depress Diego HONEYCUTT 11/06 [facility] Outpatient Encounter [id number] 11/08 [facility] [place] [facility] Outpatient Encounter [id number] ASHOK CHRISTIANSON 11/10 [facility] Outpatient Encounter [id number] ANNALEE LENNON 11/12 [facility] OFF/OP CNSLTJ NEW/EST MOD 40 [id number] Diagnos is: ICD-10- CM G20.C Yumiko onism, unspeci ADELE Noriega 11/19 [facility] Outpatient Encounter [id number] 11/25 [facility] Outpatient Encounter [id number] BAR LANTIGUA 11/27 [facility] OFFICE O/P EST MOD 30 MIN [id number] Diagnos is: ICD-10- CM F31.81 Bipolar II disorde r Diego HONEYCUTT 12/04 [facility] QNHP OL DIG ASSMT&MGMT 5-10 [id number] Diagnos is: ICD-10- CM Z79.01 [facility]CI (curren t) use of anticoa jasminlanChristos Montgomery 12/04 [facility] Outpatient Encounter [id number] SARA MI 02/05 [facility] Outpatient Encounter [id number] 02/05 [place] [facility] OFFICE O/P EST MOD 30 MIN [id number] Diagnos is: ICD-10- CM M16.11 Unilate ral primary osteoar thritis , right hip CAROLINA, RAMCES A 02/06 [facility] TTE W/DOPPLER COMPLETE [id number] Diagnos is: ICD-10- CM R60.9 Edema, unspeci fied MELVIN MERRILL FAN 02/17 [facility] Outpatient Encounter [id number] 02/18 [facility] OFFICE O/P EST HI 40 MIN [id number] Diagnos is: ICD-10- CM E11.8 Type 2 diabete s mellitu s with unspeci fied complic atjuan j HARSH ALVAREZ 03/05 [facility] Outpatient Encounter [id number] Diagnos is: ICD-10- CM M16.11 Unilate ral primary osteoar thritis , right hip CAROLINA, RAMCES A 03/09 [facility] Outpatient Encounter [id number] JOE ROPER A 03/10 [facility] Outpatient Encounter [id number] MARYJO SCHOFIELD 03/12 [facility] Outpatient Encounter [id number] 03/12 [facility] OFFICE O/P EST MOD 30 MIN [id number] Diagnos is: ICD-10- CM M25.552 Pain in left hip ROYA RIBEIRO 03/16 [facility] Outpatient Encounter [id number] 03/16 [facility] [place] [facility] Outpatient Encounter [id number] 03/25 [place] [facility] [place] [facility] Outpatient Encounter [id number] 03/27 [facility] [place] [facility] OFFICE O/P EST MOD 30 MIN [id number] Diagnos is: ICD-10- CM G20.C Yumiko onism, unspeci fied ADELE DUNN 04/20 [facility] [place] [facility] Outpatient Encounter [id number] 04/22 [facility] [place] [facility] OFFICE O/P EST MOD 30 MIN [id number] Diagnos is: ICD-10- CM R63.4 Abnorma l weight loss KAYLA ZENG 04/22 [facility] [place] [facility] Outpatient Encounter [id number] 04/28 [facility] [place] [facility] OFFICE O/P EST MOD 30 MIN [id number] Diagnos is: ICD-10- CM 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 PATITO FIGUEROA A 04/29 [facility] PRO PHONE CALL 21-30 MIN [id number] Diagnos is: ICD-10- CM F03.A18 Unspeci fied dementi a, mild, with other behavio ral disturb ROJAS SNYDER K 05/01 [facility] [place] [facility] Outpatient Encounter [id number] 05/08 [facility] [place] [facility] OFFICE O/P NEW HI 60 MIN [id number] Diagnos is: ICD-10- CM R93.89 Abnorma l finding s on dx imaging of oth body structu res RENUKA JOHNSON 05/13 [facility] Outpatient Encounter [id number] CASEY DASILVA 05/14 [facility] Outpatient Encounter [id number] 05/20 [facility] [place] [facility] OFFICE O/P EST HI 40 MIN [id number] Diagnos is: ICD-10- CM R93.89 Abnorma l finding s on dx imaging of oth body structu res OSIEL MICHELLE SAGE M 05/26 [facility] Outpatient Encounter [id number] 05/26 [facility] OFFICE O/P EST MOD 30 MIN [id number] Diagnos is: ICD-10- CM R63.4 Abnorma l weight loss LA OVIEDO 06/03 [facility] OFFICE O/P EST HI 40 MIN [id number] Diagnos is: ICD-10- CM 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, mild, 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 /anx Diego HONEYCUTT 06/04 [facility] Outpatient Encounter [id number] 06/04 [facility] HC PRO PHONE CALL 11-20 MIN [id number] Diagnos is: ICD-10- CM D64.9 Anemia, unspeci fied ABDIRAHMAN CHIN M 06/05 [facility] Outpatient Encounter [id number] 06/11 [facility] DX BONE MARR[employer] BX & ASPIR [id number] Diagnos is: ICD-10- CM R93.7 Abnorma l finding s on diagnos tic imaging of prt ms sys CHRISTNER, MARY S 06/12 [place] [facility] [place] [facility] Outpatient Encounter [id number] 06/12 [place] [facility] [place] [facility] Outpatient Encounter [id number] CIOC,SARAH M 06/16 [place] [facility] [place] [facility] Outpatient Encounter [id number] CIOC,SARAH M 06/16 [place] [facility] OFFICE O/P EST HI 40 MIN [id number] Diagnos is: ICD-10- CM 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 JOHNSONRENUKA A 06/23 [facility] Outpatient Encounter [id number] ROJAS PARKER S 06/24 [place] [facility] OFF/OP EST MAY X REQ PHY/QHP [id number] Diagnos is: ICD-10- CM R91.1 Solitar y pulmona ry nodule ROJAS PARKER S 06/24 [facility] [place] [facility] Outpatient [facility]counter [id number] 07/02 [facility] [place] [id number] Diagnos is: ICD-10- CM R63.4 Abnorma l weight loss TRUE GANDARA A 07/06 [place] [facility] [place] [facility] Outpatient Encounter [id number] 07/08 [place] [facility] [place] [facility] Outpatient Encounter [id number] Nancy HONEYCUTT 07/08 [place] [facility] [place] [facility] Outpatient Encounter [id number] 07/10 [place] [facility] [place] [facility] Outpatient Encounter [id number] 07/13 [place] [facility] [place] [facility] OFFICE O/P EST MOD 30 MIN [id number] Diagnos is: ICD-10- CM I87.2 Venous insuffi ciency (chroni c) (periph eral) ROYA RIBEIRO 07/13 [place] [facility] [place] [facility] Outpatient Encounter [id number] 07/13 [place] [facility] [place] [facility] Outpatient Encounter [id number] 07/16 [facility] [place] [facility] Outpatient Encounter [id number] 07/16 [facility] [place] [facility] OFFICE O/P EST HI 40 MIN [id number] Diagnos is: ICD-10- CM F31.81 Bipolar II disorde r Diego HONEYCUTT E 07/23 [facility] ORTHOTIC MGMT&TRAIN G 1ST ENC [id number] Diagnos is: ICD-10- CM I87.2 Venous insuffi ciency (chroni c) (periph eral) OTILIO CAMERON J 07/28 [facility] [place] [facility] Outpatient Encounter [id number] 07[facility]30 [facility] [place] [facility] Outpatient [facility]counter [id number] 07/30 [facility] [place] [facility] MED NUTRITION INDIV SUBSEQ [id number] Diagnos is: ICD-10- CM R63.4 Abnorma l weight loss TRUE GANDARA 08/14 [facility] [place] [facility] NRPSYC TST EVAL PHYS/QHP EA [id number] Diagnos is: ICD-10- CM F03.A18 Unspeci fied dementi a, mild, with other behavio ral disturb RAFAL,JAMIE N 08[facility] Social History Combined list of available smoking, tobacco, and other social history from Department of Defense and Veterans Affairs facilities. Social History Type Response Date Comment Sourc e Tobacco smoking status NHIS [facility]CO FORMER USER 08/21/2023 FELIX SCHWARTZ [facility] History of tobacco use VA-TOBACCO QUIT 1 5 YRS OR MORE 08/21/2023 [facility] History of tobacco use VA-TOBACCO FORMER USER 08/15/2022 [facility] History of tobacco use VA-TOBACCO QUIT 1 5 YRS OR MORE 08/21/2021 [facility] History of tobacco use VA-TOBACCO QUIT 1 5 YRS OR MORE 07/09/2018 [facility] History of tobacco use FORMER TOBACCO US ER 7Y OR GREATER 07/18/2017 [facility] History of tobacco use FORMER TOBACCO US ER 7Y OR GREATER 08/14/2016 [facility] History of tobacco use FORMER TOBACCO US ER 7Y OR GREATER 06/29/2015 [facility] History of tobacco use FORMER TOBACCO US ER 7Y OR GREATER 01/06/2014 [facility] History of tobacco use FORMER TOBACCO US ER 7Y OR GREATER 01/04/2012 [facility] Plan of Care List of future care activities from Department of Veterans Affairs facilities. Additional future care activities may be listed in the Assessment and Plan section. Date/Time Care Activity Care Activity Detail Facili ty 09/17/2024 AMBULATORY - MEDICINE AMBULATORY - MEDICI NE [facility] 09/17/2024 AMBULATORY - MEDICINE AMBULATORY - MEDICI NE [facility] 09/18/2024 AMBULATORY - PSYCHIATRY AMBULATORY - PSYC HIATRY [facility] 09/24/2024 AMBULATORY - NONE AMBULATORY - NONE [facility] A[facility] [facility] 10/02/2024 AMBULATORY - NONE AMBULATORY - NONE [facility] ASHLEYS [facility] 10/07/2024 AMBULATORY - MEDICINE AMBULATORY - MEDICI NE [facility] 10/19/2024 AMBULATORY - NEUROLOGY AMBULATORY - NEURO LOGY [facility] 02/17/2025 AMBULATORY - MEDICINE AMBULATORY - MEDICI NE [facility] 08/26/2024 Consult Order [facility] Cons Slitter And Rewinder Machine Operator's Choice [facility]
--- OUTSIDE RECORDS SUMMARY | 2024-09-05 10:20 | XMS_ITS | Encounter Summary ---
Author Name [facility] [place] Address [address] [facility] [place] [address] Care Team Providers Care Manager Credit Collections Name Role Phone MARIUSZ PHILLIPS Primary Care [...] PART B Sep 26, 2012 PART B [id number] [facility] [phone] JUAN THOMPSON JR PATIENT MEDICARE (WNR) MEDICARE (M) PART A Sep 26, 2012 PART A [id number] [phone] JUAN THOMPSON JR PATIENT Selected Encounter This [...] [facility] the [facility] [place] [facility] This section includes future [...] AM AMBULATORY - [place] [facility] Oct 09, 2023 09:00 AM [place] [facility] Oct 09, 2023 10:00 AM [place]IC[place] [facility] Nov 07, 2023 09:30 AM [place]IC[place] [facility] Nov 07, 2023 10:30 AM [place]IC[place] [facility] Nov 07, 2023 11:30 AM AMBUL[place] - [place] [facility] Nov 07, 2023 11:45 AM [place]IC[place] [facility] Nov 20, 2023 09:00 AM [place] [facility] December 05, 2023 09:30 AM AMBUL[place] - [place] [facility] Feb 07, 2024 11:00 AM [place]ORY [place]ONE [place] [facility] Feb 07, 2024 11:30 AM [place] [facility] Feb 07, 2024 12:30 PM AMBUL[place]ORY - NONE [place] [facility] Feb 18, 2024 08:00 AM [place] - [place]IC[place] [facility] Mar 05, 2024 07:30 AM [place]IC[place] [facility] Mar 05, 2024 08:30 AM [place]IC[place] [facility] Mar 05, 2024 10:00 AM [place]IC[place] [facility] Mar 09, 2024 08:45 AM [place] - [place]GERY [place] [facility] Mar 16, 2024 09:00 AM [place]IC[place] [facility] Mar 16, 2024 10:15 AM AM[place]ORY - NONE [place] [facility] Mar 27, 2024 07:00 AM [place]ORY - NONE [place] [facility] Active, Pending, and Scheduled Orders This [...] Order URINALYSIS URINE ER STAT WC ONCE [facility] Lab Results: +/- 30 days [...] Range Comment Oct 09, 2023 08:35 AM [facility] HEMOGLOBIN A1C Specimen Type: BLOOD Comment: [...] Aug 29, 2023 04:30 PM Reporting Lab: [facility] [id number] Performing Lab: [facility] [id number] HEMOGLOBIN A1C 6.4 H 4.0-6.0 Oct 09, 2023 08:35 AM [facility] CBC Specimen Type: BLOOD No comment entered. Ordering Provider: YO YEUNG Report Released Date/Time: Aug 29, 2023 04:30 PM Reporting Lab: [facility] [id number] Performing Lab: [facility] [id number] WBC 7.18 10*3/uL 4.0-11.0 RBC 3.94 10*6/uL L 4.6-6.2 HGB 11.7 g/dL L 13.5-17.9 HCT 36.0 L 41-54 MCV 91.4 fL 80-100 MCH 29.7 pg 27-33 MCHC 32.5 g/dL 32.0-37.5 PLT 266 10*3/uL 150-400 MPV 9.7 fL 7.4-10.4 RDW 14.3 11.5-14.5 Oct 09, 2023 08:35 AM [facility] BASIC METABOLIC PANEL+MG Specimen Type: PLASMA No comment entered. Ordering Provider: YO YEUNG Report Released Date/Time: Aug 29, 2023 04:30 PM Reporting Lab: [facility] [id number] Performing Lab: [facility] [id number] CREATININE 1.1 mg/dL 0.7-1.2 UREA NITROGEN 22 [...] 21, 2023 10:30 AM VA-TOBACCO FORMER USER [facility] Tobacco Use History This section includes a history of the smoking, or tobacco-related health factors, that were collected on or before the date of the Encounter. The data comes from the [place] facility where the Encounter took place. Date/Time Smoking Status/Tobacco Use Comment [place] Aug 21, 2023 10:30 AM VA-TOBACCO QUIT 15 YRS OR MORE [facility] Aug 15, 2022 09:00 AM VA-TOBACCO FORMER USER [facility] Aug 15, 2022 09:00 AM VA-TOBACCO QUIT 15 YRS OR MORE [facility] Aug 21, 2021 01:00 PM VA-TOBACCO FORMER USER [facility] Aug 21, 2021 01:00 PM VA-TOBACCO QUIT 15 YRS OR MORE [facility] Jul 09, 2018 08:58 AM VA-TOBACCO FORMER USER [facility] Jul 09, 2018 08:58 AM VA-TOBACCO QUIT 15 YRS OR MORE [facility] Jul 18, 2017 09:58 AM FORMER TOBACCO USER 7Y OR GREATE R [facility] Aug 14, 2016 10:59 AM FORMER TOBACCO USER 7Y OR GREATE R [facility] Jun 29, 2015 02:03 PM FORMER TOBACCO USER 7Y OR GREATE R [facility] Jan 06, 2014 03:04 PM FORMER TOBACCO USER 7Y OR GREATE R [facility] Jan 04, 2012 08:36 AM FORMER TOBACCO USER 7Y OR GREATE R [facility] Encounter Notes: All associated encounter notes This section contains the clinical notes associated to the Encounter. Date/Time Encounter Note(s) Provider Source Sep 19, 2023 11:03 AM NO SHOW NOTE: LOCAL TITLE: NO SHOW/CANCELLATION CLINIC NOTE STANDARD TITLE: NO SHOW NOTE DATE OF NOTE: SEP 19, 2023@11:03 ENTRY DATE: SEP 19, 2023@11:03:09 AUTHOR: HARRISON DALLAS EXP COSIGNER: URGENCY: STATUS: COMPLETED [place] not seen for scheduled appointment due to: [place] cancelled Pt cancelled appt for 10/02/23 @ 10:30. Appointment Rescheduled: Yes Pt r/s for 10/03/23 @ 8:30. Please review patient chart and medications for renewal needs (if appropriate). /pablo/ HARRISON DALLAS TUNGSTEN TENDER Signed: 09/19/2023 11:03 Receipt Acknowledged By: 09/19/2023 13:51 /pablo/ LORETA HONEYCUTT DO STAFF PSYCHIATRIST 09/19/2023 11:10 /pablo/ MYLES JOE RN-BSN, MA RN-BSN, [place]ISON WILLS [facility]
--- OUTSIDE RECORDS SUMMARY | 2024-09-05 10:20 | XMS_ITS | Encounter Summary ---
Author Name [facility] [place] Address [address] [place] [address] Care Team Providers Care Scorer Helper Name Role Phone MARIUSZ PHILLIPS Primary Care [...] PART A Sep 26, [id number] [facility] [phone] JUAN THOMPSON JR PATIENT MEDICARE (WNR) MEDICARE (M) PART B Sep 26, 2012 PART B [id number] [phone] JUAN THOMPSON JR PATIENT Selected Encounter This section includes the information on record at [place] for the Encounter. Date/Time Encounter Type Encounter Description Reason Provider Source Nov 20, 2023 09:00 AM OFF/OP CNSLTJ NEW/EST MOD 40 NEUROLOGY ICD-10-CM G20.C Parkinsonism, unspecified APR[facility] DUNN [facility] Encounter Template Text not used by [place] Assessments - Encounter Diagnoses This section includes the primary and secondary diagnoses documented for the Encounter. Date/Time Primary/Secondary Diagnosis Diagnosis Name Provider Source December 02, 2023 05:20 PM PRIMARY Parkinsonism, unspecified APRIL DUNN [facility] Plan of Treatment: Future Appointments (+ 6 [...] 05, 2023 09:30 AM AM[facility]UL[facility] Feb 07, 2024 11:00 [...] 09:30 AM AM[facility]UL[facility] - [facility] [place] [facility] Apr 22, 2024 09:00 AM [facility] [facility] Apr 22, 2024 10:00 AM [facility] Apr 29, 2024 10:30 AM AMBULATORY - SURGERY [facility] May 13, 2024 12:00 PM AMBULATORY - NONE [facility] May 13, 2024 01:00 PM AMBULATORY - MEDICINE [facility] Lab Results: +/- 30 days [...] Range Comment Nov 07, 2023 11:14 AM [facility] VIT D 25-OH,TOTAL Specimen Type: SERUM No comment entered. Ordering Provider: ISAEL ALVAREZ Report Released Date/Time: Nov 07, 2023 10:08 AM Reporting Lab: [facility] [id number] Performing Lab: [facility] [id number] VIT D 25-OH,TOTAL 70 ng/mL H 12-50 Nov 07, 2023 09:38 AM [facility] VITAMIN A Specimen Type: SERUM Comment: Vitamin supplementation within 24 hours prior to blood draw may affect the accuracy of the results. This test was developed and its analytical performance characteristics have been determined by [employer] [place], [place]. It has not been cleared or approved by the U.S. Food and Drug Administration. This assay has been validated pursuant to the CLIA regulations and is used for clinical purposes. Test Performed by [facility], [employer] [facility], [address] [place] [address] Devante Meyer M.D., Ph.D., Director of Laboratories , CLIA [id number] Ordering Provider: ISAEL ALVAREZ Report Released Date/Time: Jul 11, 2023 10:23 AM Reporting Lab: [facility] [id number] Performing Lab: [address] VITAMIN A 58 ug/dL 38-98 Nov 07, 2023 09:38 AM [facility] HEMOGLOBIN A1C Specimen Type: BLOOD Comment: Values obtained from A1C measurements can vary. For typical A1C assays, a reported value of 7.0 could actually be between 6.7 and 7.3 if measured by a reference method. A reported value of 9.0 could actually be between 8.7 and 9.3. Ref: http://www.ngsp. org/CAPdata.asp Ordering Provider: ISAEL ALVARZE Report Released Date/Time: Jul 11, 2023 10:23 AM Reporting Lab: [facility] [id number] Performing Lab: [facility] [id number] HEMOGLOBIN A1C 6.4 H 4.0-6.0 Vital Signs: All taken on the encounter date This section contains inpatient and outpatient Vital Signs collected on the date of the Encounter. Date/Time Temperature Pulse Blood Pressure Respiratory Rate SP02 Pain Height Weight Body Mass Index Source Nov 20, 2023 08:52 AM 98.5 63 108/72 16 97 8 [facility] Social History: [...] FORMER TOBACCO USER [facility] Aug 14, 2016 10:59 AM FORMER TOBACCO USER [facility] Jun 29, 2015 02:03 PM FORMER TOBACCO USER [facility] Jan 06, 2014 03:04 PM FORMER TOBACCO USER [facility] Jan 04, 2012 08:36 AM FORMER TOBACCO USER [facility] Encounter Notes: All associated encounter [...] gastric bypass Social history: Patient lives at [address] [place] [address]. He quit tobacco 30 years ago. He [...] triceps, brachioradialis, patella and Achilles. Coordination: Normal [id number] testing and rapid alternating movements. Sensation: Pinprick [...] STAFF NEUROLOGIST Signed: 12/02/2023 17:20 [facility] D[facility] Nov 20, 2023 08:58 AM NEUROLOGY NURSING [...] LPN Signed: 11/20/2023 08:59 MARY GRACE PACHECO [facility]
--- OUTSIDE RECORDS SUMMARY | 2024-09-05 10:20 | XMS_ITS | Encounter Summary ---
Author Name [facility] [place] Organization [facility] [facility] [place] Address [address] [place] [address] Care Team Providers Care Criminalist Technician Name Role Phone SONIA PHILLIPS Primary [...] PART B Sep 26, 2012 PART B [id number] [facility] [phone] JUAN THOMPSON JR PATIENT MEDICARE (WNR) MEDICARE (M) PART A Sep 26, 2012 PART A [id number] [phone] JUAN THOMPSON JR PATIENT Selected Encounter This section includes the information on record at OR for the Encounter. Date/Time Encounter Type Encounter Description Reason Provider Source Apr 20, 2024 09:30 AM OFFICE O/P EST MOD 30 MIN NEUROLOGY ICD-10-CM G20.C Parkinsonism, unspecified [facility] Encounter Template Text not used by OR Assessments - Encounter Diagnoses This section includes the primary and secondary diagnoses documented for the Encounter. Date/Time Primary/Secondary Diagnosis Diagnosis Name Provider Source Apr 22, 2024 10:01 AM PRIMARY Parkinsonism, unspecified APR[facility] DUNN [facility] Plan of Treatment: Future Appointments (+ 6 months) and Future Tests (+/- 45 days) The Plan of Treatment section includes future care activities for the patient from all [place] treatmentfacilities. This section includes future appointments and future orders which are active, pending or scheduled. Future Appointments This section includes appointments that were scheduled to occur 6 months from the date of the Encounter, up to a maximum of 20 appointments. The data comes from all [place] treatment facilities. Appointment Date/Time Appointment Type Appointme nt Facility Name Apr 22, 2024 09:00 AM [facility]ONE [place] [facility] Apr 22, 2024 10:00 AM [place] [place]IC[place] [facility] Apr 29, 2024 10:30 AM [facility] [place] [facility] May 13, 2024 12:00 PM [facility]ORY - NONE [place] [facility] May 13, 2024 01:00 PM [place] [place]IC[place] [facility] May 20, 2024 09:45 AM [facility]ORY - [facility]ONE [place] [facility] May 26, 2024 09:15 AM [facility] [place]ICINE [place] [facility] Jun 03, 2024 10:00 AM [facility] [place]IC[place] [facility] Jun 04, 2024 09:30 AM [place] [facility] Jun 05, 2024 01:30 PM [facility] [place]ICINE [place] [facility] Jun 12, 2024 07:30 AM [facility] - NONE [place] [facility] [facility] Jun 12, 2024 08:30 AM [facility] [place]ICINE [place] [facility] Jun 23, 2024 10:15 AM [facility] [place]ICINE [place] [facility] Jul 06, 2024 08:30 AM [facility]ORY - NONE [place] [facility] Jul 08, 2024 11:07 AM [facility] - [facility]ONE [place] [facility] Jul 13, 2024 10:00 AM [facility] [place]ICINE [place] [facility] Jul 16, 2024 07:30 AM [facility] [place]ICINE [place] [facility] Jul 16, 2024 08:30 AM AMBULATORY - MEDICINE [facility] Jul 16, 2024 09:00 AM AMBULATORY - PSYCHIATRY [facility] Jul 16, 2024 09:30 AM AMBULATORY - PSYCHIATRY [facility] Active, Pending, and Scheduled Orders This section includes a listing of several types of active, pending, and scheduled orders, including clinic medications orders, diagnostic test orders, procedure orders and consult orders; where the start date of the order is 45 days before the date of the Encounter or 45 days after the date of theEncounter. The data comes from all [place] treatment facilities. Test Date/Time Test Type Test Details Facility Name Mar 18, 2024 05:05 PM Consult Order CARDIAC EC HO OUTPT-ALL SITES Cons Tea Blender[employer] Choice [facility] Lab Results: +/- 30 days [...] Range Comment May 20, 2024 09:39 AM [facility] FINGERSTICK GLUCOSE Specimen Type: BLOOD Comment: Save Result Ordering Provider: TANK PHILLIPS Report Released Date/Time: May 20, 2024 03:03 PM Reporting Lab: [facility] [address] Performing Lab: [facility] [address] FINGERSTICK GLUCOSE 148 mg/dL H 70-100 May 13, 2024 11:44 AM [facility] KAPPA/LAMBDA LC FREE,RATIO Specimen Type: SERUM [...] therapy of these disorders. Test Performed by [facility], [place] [facility], [address] [place], [place] Devante Meyer M.D., Ph.D., Director of Laboratories , [place] [id number] Ordering Provider: RENUKA JOHNSON Report Released Date/Time: Apr 24, 2024 04:08 PM Reporting Lab: [place] [address] Performing Lab: [address] .KAPPA LT CHAIN,FREE 27.3 mg/L H 3.3-19.4 .LAMBDA LC,FREE 15.8 mg/L 5.7-26.3 .KAPPA/LAMBDA, FREE 1.73 H 0.26-1.65 May 13, 2024 11:44 AM [facility] LD,TOTAL Specimen Type: PLASMA No comment entered. Ordering Provider: RENUKA JOHNSON Report Released Date/Time: Apr 24, 2024 04:08 PM Reporting Lab: [facility] [address] Performing Lab: [facility] [address] LD,TOTAL 141 U/L 125-220 May 13, 2024 11:44 AM [facility] URIC ACID Specimen Type: PLASMA No comment entered. Ordering Provider: RENUKA JOHNSON Report Released Date/Time: Apr 24, 2024 04:08 PM Reporting Lab: [facility] [address] Performing Lab: [facility] [address] URIC ACID 3.1 mg/dL L 3.7-7.7 May 13, 2024 11:44 AM [facility] B 12 Specimen Type: SERUM No comment entered. Ordering Provider: RENUKA JOHNSON Report Released Date/Time: Apr 24, 2024 04:08 PM Reporting Lab: [facility] [address] Performing Lab: [facility] [address] B 12 722 pg/mL 213-816 May 13, 2024 11:44 AM [facility] FOLATE Specimen Type: SERUM No comment entered. Ordering Provider: RENUKA JOHNSON Report Released Date/Time: Apr 24, 2024 04:08 PM Reporting Lab: [facility] [address] Performing Lab: [facility] [address] FOLATE 14.6 ng/mL >7.0 May 13, 2024 11:44 AM [facility] PHOSPHORUS Specimen Type: PLASMA No comment entered. Ordering Provider: RENUKA JOHNSON Report Released Date/Time: Apr 24, 2024 04:08 PM Reporting Lab: [facility] [address] Performing Lab: [facility] [address] PHOSPHORUS 3.3 mg/dL 2.3-4.3 May 13, 2024 11:44 AM [facility] IRON GROUP Specimen Type: SERUM No comment entered. Ordering Provider: RENUKA JOHNSON Report Released Date/Time: Apr 24, 2024 04:08 PM Reporting Lab: [facility] [address] Performing Lab: [facility] [address] IRON 101 ug/dL 65-175 TIBC,CALCULATE D 313 ug/dL 250-425 FERRITIN pending IRON SATURATION 32 20-50 TRANSFERRIN 250 mg/dL 163-382 May 13, 2024 11:44 AM [facility] TOTAL IMMUNOGLOB (IGA,IGG,IGM) Specimen Type: PLASMA No comment entered. Ordering Provider: RENUKA JOHNSON Report Released Date/Time: Apr 24, 2024 04:08 PM Reporting Lab: [facility] [address] Performing Lab: [facility] [address] IGM 78.8 mg/dL 22.0-293.0 IGG 714.3 mg/dL 540.0-18 22 .0 IGA 123.8 mg/dL 63.0-645.0 May 13, 2024 11:44 AM [facility] BETA 2-MICROGLOBULIN Specimen Type: SERUM No comment entered. Ordering Provider: RENUKA JOHNSON Report Released Date/Time: Apr 24, 2024 04:08 PM Reporting Lab: [facility] [address] Performing Lab: [facility] [address] BETA 2-MICROGLOBULI N 3.36 mg/L H 0.97-2.64 May 13, 2024 11:44 AM [facility] CBC & DIFF Specimen Type: BLOOD Comment: Automated Differential Performed Ordering Provider: RENUKA JOHNSON Report Released Date/Time: Apr 24, 2024 04:08 PM Reporting Lab: [facility] [address] Performing Lab: [facility] [address] WBC 8.3 4.0-11.0 RBC 4.04 L 4.60-6.20 [...] 0.0 0.0-0.1 May 13, 2024 11:44 AM [facility] PSA Specimen Type: SERUM No comment entered. Ordering Provider: ABBY MEANS Report Released Date/Time: May 12, 2024 08:28 PM Reporting Lab: [facility] [address] Performing Lab: [facility] [address] PSA 0.49 ng/mL <4.00 May 13, 2024 11:44 AM [facility] TESTOSTERONE Specimen Type: SERUM No comment entered. Ordering Provider: ABBY MEANS Report Released Date/Time: May 12, 2024 08:30 PM Reporting Lab: [facility] [address] Performing Lab: [facility] [address] TESTOSTERONE 534 ng/dL 221-870 May 13, 2024 11:44 AM [facility] COMPREHENSIVE METABOLIC PANEL+MG Specimen Type: PLASMA No comment entered. Ordering Provider: RENUKA JOHNSON Report Released Date/Time: Apr 24, 2024 04:08 PM Reporting Lab: [facility] [address] Performing Lab: [facility] [address] CREATININE 1.0 mg/dL 0.7-1.2 UREA NITROGEN 26 [...] 78 >60 May 13, 2024 11:44 AM [facility] PERIPHERAL SMEAR PATHOLOGIST REVIEW Specimen Type: BLOOD No comment entered. Ordering Provider: RENUKA JOHNSON Report Released Date/Time: May 13, 2024 01:51 PM Reporting Lab: [facility] [address] Performing Lab: [facility] [address] PERIPHERAL SMEAR PATHOLOGIST REVIEW SLIDES MADE Apr 22, 2024 10:41 AM [facility] ELP/IMMFIX,SERUM PANEL Specimen Type: SERUM Comment: Decreased gamma fraction may be seen in certain lymphoproliferat jeff disorders. Recommend submitting a 24 hr urine for ELP and immunofixation tests. Ordering Provider: LYUBOV YEUNG Report Released Date/Time: Apr 22, 2024 10:20 AM Reporting Lab: [facility] [address] Performing Lab: [facility] [address] PROTEIN,TOTAL 6.0 g/dL L 6.4-8.3 .ALBUMIN FRACTION 3.63 g/dL L 3.66-4.78 .ALPHA 1 FRACTION 0.37 g/dL 0.14-0.38 .ALPHA 2 FRACTION 0.81 g/dL 0.50-0.90 .BETA 1 FRACTION 0.34 g/dL 0.33-0.55 .BETA 2 FRACTION 0.28 g/dL 0.20-0.52 .GAMMA FRACTION 0.57 g/dL L 0.58-1.72 .TOTAL PROTEIN 6.0 g/dL 6.0-8.3 .INTERPRETATIO N NO MONOCLONALS DETECTED Apr 22, 2024 10:32 AM [facility] ELP/IMMFIX,URINE RANDOM PANEL Specimen Type: URINE No comment entered. Ordering Provider: LYUBOV YEUNG Report Released Date/Time: Apr 22, 2024 10:20 AM Reporting Lab: [facility] [address] Performing Lab: [facility] [address] PROTEIN,T. RANDOM UR <6.8 mg/dL <14.0 .INTERPRETATIO N,UR NO MONOCLONALS DETECTED Apr 22, 2024 08:15 AM [facility] BASIC METABOLIC PANEL+MG Specimen Type: PLASMA No comment entered. Ordering Provider: LYUBOV YEUNG Report Released Date/Time: Oct 09, 2023 11:10 AM Reporting Lab: [facility] [address] Performing Lab: [facility] [address] CREATININE 1.0 mg/dL 0.7-1.2 UREA NITROGEN 18 mg/dL 8-26 GLUCOSE 217 mg/dL H 70-100 SODIUM 144 mmol/L 136-145 POTASSIUM 4.3 mmol/L 3.5-5.1 CHLORIDE 106 mmol/L 98-107 CO2 31 mmol/L H 22-29 CALCIUM 9.6 mg/dL 8.4-10.2 MAGNESIUM 1.4 mg/dL L 1.6-2.6 ANION GAP 7 mmol/L 5-15 .CREAT EGFR(CKD-EPI) 78 >60 Apr 22, 2024 08:15 AM [facility] CBC Specimen Type: BLOOD No comment entered. Ordering Provider: LYUBOV YEUNG Report Released Date/Time: Oct 09, 2023 11:10 AM Reporting Lab: [facility] [address] Performing Lab: [facility] [address] WBC 9.8 4.0-11.0 RBC 4.45 L 4.60-6.20 HGB 13.0 g/dL L 13.5-17.9 HCT 40.2 L 41-54 MCV 90.3 fL 80-100 MCH 29.2 pg 27-33 MCHC 32.3 g/dL 32.0-37.5 PLT 328 150-400 MPV 9.7 fL 9.1-13.0 RDW 14.3 11.5-14.5 Apr 20, 2024 08:28 AM [facility] POC CREATININE Specimen Type: BLOOD No comment entered. Ordering Provider: TANK PHILLIPS Report Released Date/Time: Apr 20, 2024 08:30 AM Reporting Lab: [facility] [address] Performing Lab: [facility] [address] POC CREATININE 1.1 mg/dL 0.6-1.3 Vital Signs: All taken on the encounter date This section contains inpatient and outpatient Vital Signs collected on the date of the Encounter. Date/Time Temperature Pulse Blood Pressure Respiratory Rate SP02 Pain Height Weight Body Mass Index Source Apr 20, 2024 09:38 AM 98.5 65 105/66 16 97 5 [facility] Social History: Smoking Status (Most current) and Tobacco Use (All prior to encounter date) This section includes the most current, and the historical, smoking and tobacco- related health factors from the OR facility where the Encounter took place. Current [...] F acility Aug 21, 2023 10:30 AM OR-TOBACCO QUIT 15 YRS OR MORE [facility] [...] USER 7Y OR GREATE R [facility] Radiology Reports: +/- 30 days of [...] the Encounter. The data comes from all [place] treatment facilities. Date/Time Radiology Report Provider Source May 20, 2024 09:[address] BODY W/O CONTRAST (P): JUAN THOMPSON [id number] -1945 M Exm Date: MAY 20, 2024@09:14 Req Phys: LYUBOV YEUNG Pat Loc: [facility] AP[facility] L RES 03 WH 4F (Req' Img Loc: NUC MED Service: [place] [address] (Case [id number] COMPLETE) SKULL-THIGH PET IMAGE W/CT (NM Detailed) CPT:95785 Reason for Study: eval for malignancy (Case [...] pager listed below: User placing orders pager: [phone] LAST CREATININE 1.0 (04/22/24) Report Status: Verified Date Reported: MAY 20, 2024 Date Verified: MAY 20, 2024 [employer] E-Sig:/ES/RUFUS GROVES MD, FACR, CCD Report: PET/CT [...] RUFUS GROVES MD, FACR, STAFF RADIOLOGIST ([employer]) /BSF RUFUS GROVES [facility] Apr 20, 2024 08:[address] (CAP) CHEST/ABD/PELVIS (P): JUAN THOMPSON [id number] -1945 M Exm Date: APR 20, 2024@08:07 Req Phys: RACHEL WATSON Pat Loc: [facility] APACT L RES 03 WH 4F (Req' Img Loc: CT IMAGING Service: [place] [address] (Case [id number] COMPLETE) CT (CAP) CHEST W CONTRAST (CT Detailed) CPT:96391 Contrast Media : Non-ionic Iodinated Reason for Study: 78M with weight loss & lymphadenopathy, CT for malignancy eval (Case [id number] COMPLETE) CT (CAP) ABDOMEN/PELVIS W CONTRAS(CT Detailed) CPT:77562 Contrast Media : Non-ionic Iodinated Clinical History: [...] any questions or notifications of critical findings: [phone] If ordering provider is a trainee, enter [...] PLASMA .CREAT EGFR(CKD-E 63 Ref: >=60 Allergies: ([place] only) SULFAMETHOXAZOLE (Feb 07, 2022) EMPAGLIFLOZIN (Jun 06, 2022) Report Status: Verified Date Reported: APR 20, 2024 Date Verified: APR 20, 2024 Super[employer] E-Sig:/ES/JONATAN MILLER MD Report: CT CHEST, ABDOMEN [...] Primary Interpreting Staff: JONATAN MILLER MD, RADIOLOGIST ([employer]) /JONATAN GOMEZ [facility] Pathology Reports: +/- 30 days of [...] the Encounter. The data comes from all [place] treatment facilities. Date/Time Pathology Report Provider Source May 14, 2024 10:47 AM LR SURGICAL PATHOLOGY REPORT: LOCAL TITLE: LR SURGICAL PATHOLOGY REPORT STANDARD TITLE: PATHOLOGY REPORT DATE OF NOTE: MAY 14, 2024@10:47:04 ENTRY DATE: MAY 14, 2024@10:47:04 AUTHOR: VIPUL DASILVA EXP COSIGNER: URGENCY: STATUS: COMPLETED $APHDR Reporting Lab: [facility] [CLIA# [id number]] [place] [address] - - - - - - - [...] - - - PATHOLOGY REPORT Accession No. -[id number] - - - - - [...] - - - POSTOPERATIVE DIAGNOSIS: Surgeon/physician: RENUKA JONHSON MD =-=-=-=-=-=-=-=-=-=-=-=-=-=-=- =-=-=-=-=-=-=-=-=-=-=-=-=-=-=- =-=-=-=-=-=-=-=-=-= - - - [...] Performing Laboratory: Surgical Pathology Report Performed By: [facility] [CLIA# [id number]] [place] [address] $FTR - - - - - - [...] - JUAN THOMPSON JR STANDARD FORM 515 ID:[id number] SEX:M :1945 AGE: 78 LOC:79030 PCP: Sonia Phillips /pablo/ VIPUL DASILVA MD STAFF PATHOLOGIST Signed: 05/14/2024 10:47 VIPUL DASILVA [facility] Encounter Notes: All associated encounter notes This section contains the clinical notes associated to the Encounter. Date/Time Encounter Note(s) Provider Source Apr 20, 2024 10:30 AM NEUROLOGY ATTENDIN G NOTE: LOCAL TITLE: NEUROLOGY CLINIC NOTE STANDARD [...] STAFF NEUROLOGIST Signed: 04/22/2024 10:02 APRIL DUNN [facility] Apr 20, 2024 09:44 AM NEUROLOGY NURSING OUTPATIENT NOTE: LOCAL TITLE: NEUROLOGY CLINIC NURSING NOTE STANDARD TITLE: NEUROLOGY NURSING OUTPATIENT NOTE DATE OF NOTE: APR 20, 2024@09:44 ENTRY DATE: APR 20, 2024@09:44:49 AUTHOR: MARY GRACE PACHECO EXP COSIGNER: URGENCY: STATUS: COMPLETED Type of visit: [...] LPN Signed: 04/20/2024 09:45 MARY GRACE PACHECO [facility]
--- OUTSIDE RECORDS SUMMARY | 2024-09-05 10:20 | XMS_ITS | Encounter Summary ---
Author Name [facility] [place] Address [address] [place] [address] Care Team Providers Care Master Esthetician Name Role Phone MARIUSZ PHILLIPS Primary Care [...] PART B Sep 26, 2012 PART B [id number] [phone] JUAN THOMPSON JR PATIENT MEDICARE (WNR) MEDICARE (M) PART A Sep 26, 2012 PART A [id number] [phone] JUAN THOMPSON JR PATIENT Selected Encounter This section includes the information on record at [place] for the Encounter. Date/Time Encounter Type Encounter Description Reason Pro vider Source Jul 30, 2024 09:12 AM Outpatient Encounter PSYCHOLOGICAL TESTING IHE Encounter Template Text not used by [facility] Plan of Treatment: Future Appointments (+ 6 months) and Future Tests (+/- 45 days) The Plan of Treatment section includes future care activities for the [facility] [place] [facility] This section includes future appointments and future orders which are active, pending or scheduled. Future Appointments This section includes appointments that were scheduled to occur 6 months from the date of the Encounter, up to a maximum of 20 appointments. The data comes from all [facility]. Appointment Date/Time Appointment Type Appointme nt Facility Name Aug 14, 2024 03:00 PM [facility] [place]ONE [place] [facility] Aug 18, 2024 10:30 AM [facility] [place] [facility] Aug 31, 2024 09:00 AM [facility] Sep 03, [facility]24 08:00 [facility] Sep 17, 2024 08:00 [facility] Sep 17, 2024 09:00 [facility] [place] [place] [facility] Sep 18, 2024 01:00 PM [place] [facility] Sep 24, 2024 07:00 AM [facility] [place] [facility] Oct 02, 2024 03:00 PM [facility] [facility] Oct 07, 2024 09:00 AM [facility] Oct 19, 2024 09:30 AM [facility] Active, Pending, and Scheduled [...] PM Consult Order [facility]-NUCLEAR MEDICINE Cons Distribution Warehouse Manager's Choice [facility] Aug 26, 2024 07:52 AM Consult Order COMMUNITY CARE-GEC SKILLED HOME CARE Cons Distribution Warehouse Manager's Choice [facility] Lab Results: +/- [...] Range Comment Jul 13, 2024 11:18 AM [facility] BNP Specimen Type: PLASMA No comment entered. Ordering Provider: SARAH STANLEY Report Released Date/Time: Jul 13, 2024 11:12 AM Reporting Lab: [facility] [address] Performing Lab: [facility] [address] BNP 55 pg/mL <99 Jul 13, 2024 11:18 AM [facility] COMPREHENSIVE METABOLIC PANEL+MG Specimen Type: PLASMA No comment entered. Ordering Provider: SARAH STANLEY Report Released Date/Time: Jul 13, 2024 11:12 AM Reporting Lab: [facility] [address] Performing Lab: [facility] [address] CREATININE 1.1 mg/dL 0.7-1.2 UREA NITROGEN 29 [...] 21, 2023 10:30 AM [facility] OR MORE [facility] Aug 15, 2022 09:00 AM VA-TOBACCO FORMER USER [facility] Aug 15, 2022 09:00 [...] Encounter. Date/Time Encounter Note(s) Provider Source Jul 30, 2024 09:12 AM REPORT OF CONTACT: LOCAL TITLE: APPOINTMENT SCHEDULING NOTE STANDARD TITLE: REPORT OF CONTACT DATE OF NOTE: JUL 30, 2024@09:12 ENTRY DATE: JUL 30, 2024@09:12:31 AUTHOR: SEVERO AMIN EXP COSIGNER: URGENCY: STATUS: COMPLETED Food And Nutrition Supervisor spoke with Sherry ([facility]) who assisted with scheduling on veterans behalf. is tentatively scheduled for 08/31/24 at 9:00AM with Dr. Jamie Hess in clinic [id number]. /pablo/ SEVERO AMIN [employer] Salesperson, VHA Signed: 07/30/2024 09:16 Receipt Acknowledged By: 07/30/2024 10:05 /pablo/ JAMIE HESS, PHD, LP, ABPP STAFF NEUROPSYCHOLIGST SEVERO AMIN J [facility]
--- OUTSIDE RECORDS SUMMARY | 2024-09-05 10:20 | XMS_ITS | Encounter Summary ---
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 Date/Time Encounter Type Encounter Description Reason Pro vider Source Jul 30, 2024 11:26 AM Outpatient Encounter TELEPHONE TRIAGE IHE Encounter Template Text not used by [facility] Plan of Treatment: Future Appointments (+ 6 months) and Future Tests (+/- 45 days) The Plan of Treatment section includes future care activities for the patient [facility] This section includes future appointments and future orders which are active, pending or scheduled. Future Appointments This section includes appointments that were scheduled to occur 6 months from the date of the Encounter, up to a maximum of 20 appointments. The data comes from all [facility]. Appointment Date/Time Appointment Type Appointme nt Facility Name Aug 14, 2024 03:00 PM AM[place]ORY [place] [facility] Aug 18, 2024 10:30 AM AM[place]ORY [place] [facility] Aug 31, 2024 09:00 AM [facility] [place] [facility] [facility] Sep 03, 2024 08:00 AM [facility] [place] [facility] [facility] Sep 17, 2024 08:00 AM [facility] Sep 17, 2024 09:00 AM [place] [facility] Sep 18, 2024 01:00 PM [place] [facility] Sep 24, 2024 07:00 AM [place] [facility] Oct 02, 2024 03:00 PM [place] [place] [facility] Oct 07, 2024 09:00 AM [facility] [place] [facility] [place] [facility] Oct 19, 2024 09:30 AM [facility] Active, Pending, and [...] of theEncounter. The data comes from all [facility]. Test Date/Time Test Type Test Details Facility Name Jun 19, 2024 04:32 PM Consult Order COMMUNITY CARE-NUCLEAR MEDICINE Cons [employer] [facility] Aug 26, 2024 07:52 AM Consult Order COMMUNITY CARE-[facility] SKILLED HOME CARE Cons [employer] [facility] Lab Results: +/- 30 days of the encounter This section includes the Chemistry and Hematology Lab Results on record with [place] for the patient. Radiology Reports and Pathology Reports are provided separately, in subsequent sections. Lab Results This section contains the Chemistry/Hematology Results that were resulted 30 days before or 30 daysafter the date of the Encounter. Date/Time Source Result Type Result - Unit Interpretation Reference Range Comment Jul 13, 2024 11:18 AM [facility] BNP Specimen Type: PLASMA No comment entered. Ordering Provider: SARAH STANLEY Report Released Date/Time: Jul 13, 2024 11:12 AM Reporting Lab: [facility] [id number] Performing Lab: [facility] [id number] BNP 55 pg/mL <99 Jul 13, 2024 11:18 AM [facility] COMPREHENSIVE METABOLIC PANEL+MG Specimen Type: PLASMA No comment entered. Ordering Provider: SARAH STANLEY Report Released Date/Time: Jul 13, 2024 11:12 AM Reporting Lab: [facility] [id number] Performing Lab: [facility] [id number] CREATININE 1.1 mg/dL 0.7-1.2 UREA NITROGEN 29 [...] and tobacco- related health factors from the [place] facility where the Encounter took place. Current Smoking Status This section includes the most current smoking, or tobacco-related health factor, from the [place] facility where the Encounter took place. Date/Time Current Smoking Status Comment [place] Aug 21, 2023 10:30 AM VA-TOBACCO FORMER USER [facility] Tobacco Use History This section includes a history of the smoking, or tobacco-related health factors, that were collected on or before the date of the Encounter. The data comes from the [place] facility where the Encounter took place. Date/Time Smoking Status/Tobacco Use Comment F acility Aug 21, 2023 10:30 AM VA-TOBACCO QUIT 15 YRS OR MORE [facility] Aug 15, 2022 09:00 AM VA-TOBACCO FORMER USER [facility] Aug 15, 2022 09:00 AM VA-TOBACCO [...] USER 7Y OR GREATE R [facility] Jun 29, 2015 02:03 PM FORMER TOBACCO USER 7Y OR GREATE R [facility] Jan 06, 2014 03:04 PM FORMER TOBACCO USER 7Y OR GREATE R [facility] Jan 04, 2012 08:36 AM FORMER TOBACCO USER 7Y OR GREATE R [facility] Encounter Notes: All associated encounter notes This section contains the clinical notes associated to the Encounter. Date/Time Encounter Note(s) Provider Source Jul 30, 2024 11:26 AM RN PROGRESS NOTE: LOCAL TITLE: CCC: CLINICAL TRIAGE STANDARD TITLE: RN PROGRESS NOTE DATE OF NOTE: JUL 30, 2024@11:26:24 ENTRY DATE: JUL 30, 2024@11:26:25 AUTHOR: DANIEL CASTANO COSIGNER: URGENCY: STATUS: COMPLETED Patient Demographics Patient Name: JUAN THOMPSON JR Patient Primary Address: [address] [place] [address] Patient Primary Phone: [phone] Patient : 1945 Patient Age: 78 Caller/Recipient Relation to Patient: Self Caller Name: JUAN THOMPSON JR Emergency Contact: SIRIABHAVYA JONDONNA Triage Summary Conducted triage/discussed symptoms Pain Score: 10 (Severe Pain) Utilized the Triage Tool: Yes Chief Complaint: Hip Pain (unilateral) System WHEN: Within 8 Hours Nurse's Recommendation / WHEN: Now System WHERE: Urgent care center Nurse's Recommendation / WHERE: ED Other Patient Disposition Patient/Caregiver agrees to plan of care: Yes Nursing Plan and Disposition Referred patient to higher level of care Instructed to go to Emergency Room (ER) Advised of Financial Disclaimer: Patient advised that recommendation for care provided during the call does not constitute an approval or authorization for payment by the [place] or its staff. Patient advised to report a community ED visit to the [facility] Office of Community Care at within 72 hours. Nurse Summary Nurse Summary: PATIENT CONCERN/DURATION/ONSET: [place] c/o severe pain in his right hip over the past 2-3 days. He reports he is able to walk but he is basically limping. He reports he does have some swelling of both legs and wears compression hose so no not sure if that is worse. Pain is rated at 10/10 if he is up walking, 6/10 tender to touch. He denies any fever, chills or redness of the hip, denies any injury. WHAT HAS PATIENT TRIED TO TREAT THE SYMPTOMS: Monitoring symptoms. HISTORY/PREVIOUS TREATMENT: DM, long-term use of anticoagulant, atrial fibrillation, venous insufficiency of leg. WHAT IS PATIENT GOAL FOR THE CALL: Evaluation. Was Virtual Care Visit considered (TELE or VVC)? No. 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 [place] agreeable to plan, does have a guardian flag. [place] was advised of financial disclaimer and given [facility] ER notification number to call within 72 hours. Did contact guardian and advise of triage and ER recommendation. Butch Cline reports seth will have to call ambulance for transport and advised she would speak with him to advise him of this. Warm transferred call to guardian. Best contact for Seth is [phone](Verified). This note was created by a [facility] RN. Please do not alert this nurse by adding as a signer for future communications. Alerts are not monitored by this user, please reach out to [facility] Leadership instead if indicated. Clinical Contact Center Codes Clinic/Location: 3 MSP PHONE CCC RN Decision Support System Output: Triage Complete Triage Date: 07/30/2024, 11:12 AM Triage Note: Decision Support Tool Used: TXCC Phone Triage Alicia, 30 Jul 2024 16:53:41 +0000 [facility] Demographics 78 y/o Male Results CC: Hip Pain (unilateral) Software suggested: Within 8 Hours Software suggested follow-up location: Urgent care center, consider community medical center care Values and Measures Duration of CC: 3 Days Positive Responses HPI: hip pain, severe HPI: hip pain, worsening HPI: leg swelling, localized below the painful hip PMH: osteoarthritis VS: temperature not taken Negative Responses Denies: HPI: confined passenger travel, duration longer than 6 hours, within past 2 weeks Denies: HPI: hip injury, within past 2 days Denies: HPI: hip swelling, with hip pain Denies: HPI: nonambulatory, confined to bed or wheelchair, for more than 4 days Denies: HPI: skin erythema, hip Denies: HPI: unable to walk Denies: MEDS: chemotherapy Denies: PMH: DVT Denies: PMH: pulmonary embolism Denies: PMH: rheumatoid arthritis Denies: PMH: systemic lupus erythematosus Denies: PSH: hip surgery, within past 4 weeks Denies: PSH: surgery, trunk, within past month IMPORTANT: This note was created by [facility] Clinical Contact Center staff. Please do not alert the staff member by adding them as a signer for future communications. Alerts are not monitored by this user. /pablo/ Daniel Castano RN, BSN, AMB-BC Registered Nurse, V23 [facility] Signed: 07/30/2024 11:26 DANIEL CASTANO [facility]
--- OUTSIDE RECORDS SUMMARY | 2024-09-05 10:20 | XMS_ITS | Encounter Summary ---
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 Date/Time Encounter Type Encounter Description Reason Provider Source Jul 28, 2024 09:00 AM ORTHOTIC MGMT&TRAING 1ST ENC PROSTHETICS/ORTHO TICS ICD-10-CM I87.2 Venous insufficiency (chronic) (peripheral) GRISELDA CAMERON [facility] Encounter Template Text not used by [place] Assessments - Encounter Diagnoses This section includes the primary and secondary diagnoses documented for the Encounter. Date/Time Primary/Secondary Diagnosis Diagnosis Name Provider Source Jul 28, 2024 09:33 AM PRIMARY Venous insufficiency (chronic) (peripheral) GRISELDA CAMERON [facility] Plan of Treatment: Future Appointments (+ 6 months) and Future Tests (+/- 45 days) The Plan of Treatment section includes future care activities for the patient from all [facility] This section includes future appointments and future orders which are active, pending or scheduled. Future Appointments This section includes appointments that were scheduled to occur 6 months from the date of the Encounter, up to a maximum of 20 appointments. The data comes from all [facility]. Appointment Date/Time Appointment Type Appointme nt Facility Name Aug 14, 2024 03:00 PM [place]ORY - [place]ONE [place] [facility] Aug 18, 2024 10:30 AM [facility] Aug 31, 2024 09:00 AM [facility] Sep 03, 2024 08:00 AM [facility] Sep 17, 2024 08:00 AM [facility] Sep 17, 2024 09:00 AM [place] [facility] Sep 18, 2024 01:00 PM [facility] Sep 24, 2024 07:00 AM [place] [place] [facility] Oct 02, 2024 03:00 PM [place]ORY - [place] [facility] Oct 07, 2024 09:00 AM [place] [facility] Oct 19, 2024 09:30 AM [facility] Active, Pending, and Scheduled Orders This section includes a listing of several types of active, pending, and scheduled orders, including clinic medications orders, diagnostic test orders, procedure orders and consult orders; where the start date of the order is 45 days before the date of the Encounter or 45 days after the date of theEncounter. The data comes from all [place] treatment [facility]. Test Date/Time Test Type Test Details Facility Name Jun 19, 2024 04:32 PM Consult Order COMMUNITY CARE-NUCLEAR MEDICINE Cons Dressing Room [facility] Aug 26, 2024 07:52 AM Consult Order [facility]ITY [facility] CARE Cons Dressing Room [facility] Lab Results: [...] Range Comment Jul 13, 2024 11:18 AM [facility] BNP Specimen Type: PLASMA No comment entered. Ordering Provider: SARAH STANLEY Report Released Date/Time: Jul 13, 2024 11:12 AM Reporting Lab: [facility] [id number] Performing Lab: [facility] [id number] BNP 55 pg/mL <99 Jul 13, 2024 11:18 AM [facility] COMPREHENSIVE METABOLIC PANEL+MG Specimen Type: PLASMA No comment entered. Ordering Provider: SARAH STANLEY Report Released Date/Time: Jul 13, 2024 11:12 AM Reporting Lab: [facility] [id number] Performing Lab: [facility] [id number] CREATININE 1.1 mg/dL 0.7-1.2 UREA NITROGEN 29 [...] and tobacco- related health factors from the [facility] where the Encounter took place. Current Smoking Status This section includes the most current smoking, or tobacco-related health factor, from the [facility] where the Encounter took place. Date/Time Current Smoking Status Comment Facil ity Aug 21, 2023 10:30 AM VA-TOBACCO FORMER USER [facility] Tobacco Use History This section includes a history of the smoking, or tobacco-related health factors, that were collected on or before the date of the Encounter. The data comes from the [facility] where the Encounter took [...] GREATE R [facility] Jan 06, 2014 03:04 PM FORMER TOBACCO USER 7Y OR GREATE R [facility] Jan 04, 2012 08:36 AM FORMER TOBACCO USER 7Y OR GREATE R [facility] Encounter Notes: All associated encounter notes This section contains the clinical notes associated to the Encounter. Date/Time Encounter Note(s) Provider Source Jul 28, 2024 09:26 AM ORTHOTICS PROSTHET ICS CONSULT: LOCAL TITLE: PROSTHETICS CONSULT STANDARD TITLE: ORTHOTICS PROSTHETICS CONSULT DATE OF NOTE: JUL 28, 2024@09:26 ENTRY DATE: JUL 28, 2024@09:27:23 AUTHOR: GRISELDA CAMERON EXP COSIGNER: URGENCY: STATUS: COMPLETED Provisional Diagnosis: Venous Insufficiency (Chronic) (Peripheral)(ICD-10-CM I87.2) Reason For Request: Compression Therapy Outpt Reason compression garments are being requested: Edema/other Pedal Pulses present Yes 30-40 mmHg Assessment: [place] presented in clinic with orders to be fit with compression wraps. The patient was then evaluated measured and fit. Rx for AK compression hose. 30-40 mmHg Ankle:11 1/4 10 3/4 Calf: 15 14 1/2 Thigh:17 3/4 16 1/2 Size: Large, EDUCATION: Education was provided to patient during this encounter. Patient indicated readiness to learn about educational information re: the following topics: donning/doffing, wash/care instructions, how to report a concern. Additional education training is not indicated. Patient indicates readiness to learn, verbalizes understanding, agreement and satisfaction with the treatment plan. Patient denies further questions. If necessary, patient to be rescheduled upon receipt or completed fabrication of ordered item(s)/device(s) Fit and issued from non stock : QTY:4 [employer] Thigh High Compression [id number] RESSION- STOCKINGS Supplier: [employer] /pablo/ GRISELDA CAMERON [employer] Engineering Specialist (Correctional Corporal) Signed: 07/28/2024 09:33 GRISELDA CAMERON [facility]
--- OUTSIDE RECORDS SUMMARY | 2024-09-05 10:20 | XMS_ITS | Encounter Summary ---
Author Name [facility] Address [address] [place] [address] Care Team Providers Care Silk Screen Printer Helper Name Role Phone SONIA PHILLIPS Primary Care [...] PART B Sep 26, 2012 PART B [id number] [facility] [phone] JUAN THOMPSON JR PATIENT MEDICARE (WNR) MEDICARE (M) PART A Sep 26, 2012 PART A [id number] [phone] JUAN THOMPSON JR PATIENT Selected Encounter This section includes the information on record at NH for the Encounter. Date/Time Encounter Type Encounter Description Reason Provider Source Apr 22, 2024 10:00 AM OFFICE O/P EST MOD 30 MIN PRIMARY CARE/MEDICINE ICD-10-CM R63.4 Abnormal weight loss CIPRIANO ZENG Baldo Encounter Template Text not used by [place] Assessments - Encounter Diagnoses This section includes the primary and secondary diagnoses documented for the Encounter. Date/Time Primary/Secondary Diagnosis Diagnosis Name Provider Source Apr 22, 2024 04:44 PM PRIMARY Abnormal weight loss ELOISE YEUNG OR R [facility] Apr 22, 2024 04:44 PM SECONDARY Bronchiectasis, uncomplicated ELOISE YEUNG OR R [facility] Apr 22, 2024 04:44 PM SECONDARY Encounter for immunization SHADES,CAMILLA A [facility] Apr 22, 2024 04:44 PM SECONDARY Gastro-esophageal reflux disease without esophagitis [facility] Apr 22, 2024 04:44 PM SECONDARY Generalized anxiety disorder [facility] Apr 22, 2024 04:44 PM SECONDARY jail (current) use of anticoagulants [facility] Apr 22, 2024 04:44 PM SECONDARY Major depressive disorder, recurrent, moderate ELOISE YEUNG OR R [facility] Apr 22, 2024 04:44 PM SECONDARY Type 2 diabetes mellitus with unspecified complications [facility] Apr 22, 2024 04:44 PM SECONDARY Unspecified atrial fibrillation [facility] Plan of Treatment: Future Appointments (+ 6 months) and Future Tests (+/- 45 days) The Plan of Treatment section includes future care activities for the patient from all [facility]. This section includes future appointments and future orders which are active, pending or scheduled. Future Appointments This section includes appointments that were scheduled to occur 6 months from the date of the Encounter, up to a maximum of 20 appointments. The data comes from all [facility]. Appointment Date/Time Appointment Type Appointme nt Facility Name Apr 29, 2024 10:30 AM AMBULATORY - [place] [facility] May 13, 2024 12:00 PM AMBULATORY - NONE [facility] May 13, 2024 01:00 PM AMBULATORY - MEDICINE [facility] May 20, 2024 09:45 AM AMBULATORY - NONE [facility] May 26, 2024 09:15 AM AMBULATORY - MEDICINE [facility] Jun 03, 2024 10:00 AM AMBULATORY - MEDICINE [place] [facility] Jun 04, 2024 09:30 AM AMBUL[place]ORY [place] [facility] Jun 05, 2024 01:30 PM AMBULATORY - MEDICINE [place] [facility] Jun 12, 2024 07:30 AM AMBULATORY - NONE [place] [facility] Jun 12, 2024 08:30 AM AMBULATORY - MEDICINE [place] [facility] Jun 23, 2024 10:15 AM AMBULATORY - MEDICINE [place] [facility] Jul 06, 2024 08:30 AM AMBULATORY - NONE [place] [facility] Jul 08, 2024 11:07 AM AMBULATORY - NONE [place] [facility] Jul 13, 2024 10:00 AM AMBULATORY - MEDICINE [place] [facility] Jul 16, 2024 07:30 AM AMBULATORY - MEDICINE [place] [facility] Jul 16, 2024 08:30 AM AMBULATORY - MEDICINE [place] [facility] Jul 16, 2024 09:00 [facility] Jul 16, 2024 09:30 AM [facility] [place] [facility] Jul 23, 2024 09:00 [facility] Jul 28, 2024 09:00 AM [facility] Active, Pending, and Scheduled Orders This [...] Order CARDIAC EC HO OUTPT-ALL SITES Cons Capacitor Repairer's Choice [facility] Lab Results: +/- 30 [...] Range Comment May 20, 2024 09:39 AM [facility] FINGERSTICK GLUCOSE Specimen Type: BLOOD Comment: Save Result Ordering Provider: TANK PHILLIPS Report Released Date/Time: May 20, 2024 03:03 PM Reporting Lab: [facility] [address] Performing Lab: [facility] [address] FINGERSTICK GLUCOSE 148 mg/dL H 70-100 May 13, 2024 11:44 AM [facility] KAPPA/LAMBDA LC FREE,RATIO Specimen Type: SERUM Comment: [...] therapy of these disorders. Test Performed by [facility], [facility], [address] [place] [address] Devante Meyer M.D., Ph.D., Director of Laboratories , [place] [id number] Ordering Provider: RENUKA JOHNSON Report Released Date/Time: Apr 24, 2024 04:08 PM Reporting Lab: [facility] [address] Performing Lab: [address] .KAPPA LT CHAIN,FREE 27.3 mg/L H 3.3-19.4 .LAMBDA LC,FREE 15.8 mg/L 5.7-26.3 .KAPPA/LAMBDA, FREE 1.73 H 0.26-1.65 May 13, 2024 11:44 AM [facility] LD,TOTAL Specimen Type: PLASMA No comment entered. Ordering Provider: RENUKA JOHNSON Report Released Date/Time: Apr 24, 2024 04:08 PM Reporting Lab: [facility] [address] Performing Lab: [facility] [address] LD,TOTAL 141 U/L 125-220 May 13, 2024 11:44 AM [facility] URIC ACID Specimen Type: PLASMA No comment entered. Ordering Provider: RENUKA JOHNSON Report Released Date/Time: Apr 24, 2024 04:08 PM Reporting Lab: [facility] [address] Performing Lab: [facility] [address] URIC ACID 3.1 mg/dL L 3.7-7.7 May 13, 2024 11:44 AM [facility] B 12 Specimen Type: SERUM No comment entered. Ordering Provider: RENUKA JOHNSON Report Released Date/Time: Apr 24, 2024 04:08 PM Reporting Lab: [facility] [address] Performing Lab: [facility] [address] B 12 722 pg/mL 213-816 May 13, 2024 11:44 AM [facility] FOLATE Specimen Type: SERUM No comment entered. Ordering Provider: RENUKA JOHNSON Report Released Date/Time: Apr 24, 2024 04:08 PM Reporting Lab: [facility] [address] Performing Lab: [place] [phone] FOLATE 14.6 ng/mL >7.0 May 13, 2024 11:44 AM [facility] PHOSPHORUS Specimen Type: PLASMA No comment entered. Ordering Provider: RENUKA JOHNSON Report Released Date/Time: Apr 24, 2024 04:08 PM Reporting Lab: [facility] [address] Performing Lab: [facility] [address] PHOSPHORUS 3.3 mg/dL 2.3-4.3 May 13, 2024 11:44 AM [facility] IRON GROUP Specimen Type: SERUM No comment entered. Ordering Provider: RENUKA JOHNSON Report Released Date/Time: Apr 24, 2024 04:08 PM Reporting Lab: [facility] [address] Performing Lab: [facility] [address] IRON 101 ug/dL 65-175 TIBC,CALCULATE D 313 ug/dL 250-425 FERRITIN pending IRON SATURATION 32 20-50 TRANSFERRIN 250 mg/dL 163-382 May 13, 2024 11:44 AM [facility] TOTAL IMMUNOGLOB (IGA,IGG,IGM) Specimen Type: PLASMA No comment entered. Ordering Provider: RENUKA JOHNSON Report Released Date/Time: Apr 24, 2024 04:08 PM Reporting Lab: [facility] [address] Performing Lab: [facility] [address] IGM 78.8 mg/dL 22.0-293.0 IGG 714.3 mg/dL 540.0-18 22 .0 IGA 123.8 mg/dL 63.0-645.0 May 13, 2024 11:44 AM [facility] BETA 2-MICROGLOBULIN Specimen Type: SERUM No comment entered. Ordering Provider: RENUKA JOHNSON Report Released Date/Time: Apr 24, 2024 04:08 PM Reporting Lab: [facility] [address] Performing Lab: [facility] [address] BETA 2-MICROGLOBULI N 3.36 mg/L H 0.97-2.64 May 13, 2024 11:44 AM [facility] CBC & DIFF Specimen Type: BLOOD Comment: Automated Differential Performed Ordering Provider: RENUKA JOHNSON Report Released Date/Time: Apr 24, 2024 04:08 PM Reporting Lab: [facility] [address] Performing Lab: [facility] [address] WBC 8.3 4.0-11.0 RBC 4.04 L 4.60-6.20 [...] 0.0 0.0-0.1 May 13, 2024 11:44 AM [facility] PSA Specimen Type: SERUM No comment entered. Ordering Provider: ABBY MEANS Report Released Date/Time: May 12, 2024 08:28 PM Reporting Lab: [facility] [address] Performing Lab: [facility] [address] PSA 0.49 ng/mL <4.00 May 13, 2024 11:44 AM [facility] TESTOSTERONE Specimen Type: SERUM No comment entered. Ordering Provider: ABBY MEANS Report Released Date/Time: May 12, 2024 08:30 PM Reporting Lab: [facility] [address] Performing Lab: [facility] [address] TESTOSTERONE 534 ng/dL 221-870 May 13, 2024 11:44 AM [facility] COMPREHENSIVE METABOLIC PANEL+MG Specimen Type: PLASMA No comment entered. Ordering Provider: RENUKA JOHNSON Report Released Date/Time: Apr 24, 2024 04:08 PM Reporting Lab: [facility] [address] Performing Lab: [facility] [address] CREATININE 1.0 mg/dL 0.7-1.2 UREA NITROGEN 26 [...] 78 >60 May 13, 2024 11:44 AM [facility] PERIPHERAL SMEAR PATHOLOGIST REVIEW Specimen Type: BLOOD No comment entered. Ordering Provider: RENUKA JOHNSON Report Released Date/Time: May 13, 2024 01:51 PM Reporting Lab: [facility] [address] Performing Lab: [facility] [address] PERIPHERAL SMEAR PATHOLOGIST REVIEW SLIDES MADE Apr 22, 2024 10:41 AM [facility] ELP/IMMFIX,SERUM PANEL Specimen Type: SERUM Comment: Decreased gamma fraction may be seen in certain lymphoproliferat jeff disorders. Recommend submitting a 24 hr urine for ELP and immunofixation tests. Ordering Provider: LYUBOV YEUNG Report Released Date/Time: Apr 22, 2024 10:20 AM Reporting Lab: [facility] [address] Performing Lab: [facility] [address] PROTEIN,TOTAL 6.0 g/dL L 6.4-8.3 .ALBUMIN FRACTION 3.63 g/dL L 3.66-4.78 .ALPHA 1 FRACTION 0.37 g/dL 0.14-0.38 .ALPHA 2 FRACTION 0.81 g/dL 0.50-0.90 .BETA 1 FRACTION 0.34 g/dL 0.33-0.55 .BETA 2 FRACTION 0.28 g/dL 0.20-0.52 .GAMMA FRACTION 0.57 g/dL L 0.58-1.72 .TOTAL PROTEIN 6.0 g/dL 6.0-8.3 .INTERPRETATIO N NO MONOCLONALS DETECTED Apr 22, 2024 10:32 AM [facility] ELP/IMMFIX,URINE RANDOM PANEL Specimen Type: URINE No comment entered. Ordering Provider: LYUBOV YEUNG Report Released Date/Time: Apr 22, 2024 10:20 AM Reporting Lab: [facility] [address] Performing Lab: [facility] [address] PROTEIN,T. RANDOM UR <6.8 mg/dL <14.0 .INTERPRETATIO N,UR NO MONOCLONALS DETECTED Apr 22, 2024 08:15 AM [facility] BASIC METABOLIC PANEL+MG Specimen Type: PLASMA No comment entered. Ordering Provider: LYUBOV YEUNG Report Released Date/Time: Oct 09, 2023 11:10 AM Reporting Lab: [facility] [address] Performing Lab: [facility] [address] CREATININE 1.0 mg/dL 0.7-1.2 UREA NITROGEN 18 mg/dL 8-26 GLUCOSE 217 mg/dL H 70-100 SODIUM 144 mmol/L 136-145 POTASSIUM 4.3 mmol/L 3.5-5.1 CHLORIDE 106 mmol/L 98-107 CO2 31 mmol/L H 22-29 CALCIUM 9.6 mg/dL 8.4-10.2 MAGNESIUM 1.4 mg/dL L 1.6-2.6 ANION GAP 7 mmol/L 5-15 .CREAT EGFR(CKD-EPI) 78 >60 Apr 22, 2024 08:15 AM [facility] CBC Specimen Type: BLOOD No comment entered. Ordering Provider: LYUBOV YEUNG Report Released Date/Time: Oct 09, 2023 11:10 AM Reporting Lab: [facility] [address] Performing Lab: [facility] [address] WBC 9.8 4.0-11.0 RBC 4.45 L 4.60-6.20 HGB 13.0 g/dL L 13.5-17.9 HCT 40.2 L 41-54 MCV 90.3 fL 80-100 MCH 29.2 pg 27-33 MCHC 32.3 g/dL 32.0-37.5 PLT 328 150-400 MPV 9.7 fL 9.1-13.0 RDW 14.3 11.5-14.5 Apr 20, 2024 08:28 AM [facility] POC CREATININE Specimen Type: BLOOD No comment entered. Ordering Provider: TANK PHILLIPS Report Released Date/Time: Apr 20, 2024 08:30 AM Reporting Lab: [facility] [address] Performing Lab: [facility] [address] POC CREATININE 1.1 mg/dL 0.6-1.3 Vital Signs: All taken on the encounter date This section contains inpatient and outpatient Vital Signs collected on the date of the Encounter. Date/Time Temperature Pulse Blood Pressure Respiratory Rate SP02 Pain Height Weight Body Mass Index Source Apr 22, 2024 10:20 AM 88 [facility] Apr 22, 2024 08:49 AM 102/69 [facility] Apr 22, 2024 08:40 AM 97.6 120 94/64 18 97 5 68 154.8 24 [facility] Immunizations: All administered on the encounter date This section contains immunizations associated to the Encounter. Immunization Series Date Issued Reaction Comments PNEUMOCOCCAL CONJUGATE PCV20 , POLYSACCHARIDE MQU030 CONJUGATE, ADJUVANT, PF Apr 22, 2024 INFLUENZA, [...] 21, 2023 10:30 AM VA-TOBACCO FORMER USER [facility] Tobacco Use History This section includes a history of the smoking, or tobacco-related health factors, that were collected on or before the date of the Encounter. The data comes from the [place] facility where the Encounter took place. Date/Time Smoking Status/Tobacco Use Comment F acility Aug 21, 2023 10:30 AM VA-TOBACCO QUIT 15 YRS OR MORE [facility] Aug 15, 2022 09:00 AM VA-TOBACCO FORMER USER [facility] Aug 15, 2022 09:00 AM VA-TOBACCO QUIT 15 YRS OR MORE [facility] Aug 21, 2021 01:00 PM VA-TOBACCO FORMER USER [facility] Aug 21, 2021 01:00 PM VA-TOBACCO QUIT 15 YRS OR MORE [facility] Jul 09, 2018 08:58 AM VA-TOBACCO FORMER USER [facility] Jul 09, 2018 08:58 AM VA-TOBACCO QUIT 15 YRS OR MORE [facility] Jul 18, 2017 09:58 AM FORMER TOBACCO USER 7Y OR GREATE R [facility] Aug 14, 2016 10:59 AM FORMER TOBACCO USER 7Y OR GREATE R [facility] Jun 29, 2015 02:03 PM FORMER TOBACCO USER 7Y OR GREATE R [facility] Jan 06, 2014 03:04 PM FORMER TOBACCO USER 7Y OR GREATE R [facility] Jan 04, 2012 08:36 AM FORMER TOBACCO USER 7Y OR GREATE R [facility] Radiology Reports: +/- 30 [...] CT BODY W/O CONTRAST (P): JUAN THOMPSON [id number] -1945 M Exm Date: MAY 20, 2024@09:14 Req Phys: LYUBOV YEUNG Loc: [facility] APACT L RES 03 WH 4F (Req' Img Loc: NUC MED Service: [place] [address] (Case [id number] COMPLETE) SKULL-THIGH PET IMAGE W/CT (NM Detailed) CPT:93945 Reason for Study: eval for malignancy (Case [...] pager listed below: User placing orders pager: [phone] LAST CREATININE 1.0 (04/22/24) Report Status: Verified Date Reported: MAY 20, 2024 Date Verified: MAY 20, 2024 Plant Nursery Worker E-Sig:/ES/RUFUS GROVES MD, FACR, CCD Report: PET/CT [...] Staff: RUFUS GROVES MD, FACR, STAFF RADIOLOGIST (Plant Nursery Worker) /BSF RUFUS GROVES [facility] Apr 20, 2024 08:[address] (CAP) CHEST/ABD/PELVIS (P): JUAN THOMPSON [id number] -1945 M Ex Date: APR 20, 2024@08:07 Req Phys: RACHEL WATSON Pat Loc: [facility] APACT L RES 03 WH 4F (Req' Img Loc: CT IMAGING Service: [place] [address] (Case 147 COMPLETE) CT (CAP) CHEST W CONTRAST (CT Detailed) CPT:90311 Contrast Media : Non-ionic Iodinated Reason for Study: 78M with weight loss & lymphadenopathy, CT for malignancy eval (Case 148 COMPLETE) CT (CAP) ABDOMEN/PELVIS W CONTRAS(CT Detailed) CPT:42017 Contrast Media : Non-ionic Iodinated Clinical History: [...] any questions or notifications of critical findings: [phone] If ordering provider is a trainee, enter [...] PLASMA .CREAT EGFR(CKD-E 63 Ref: >=60 Allergies: ([place] only) SULFAMETHOXAZOLE (Feb 07, 2022) EMPAGLIFLOZIN (Jun 06, 2022) Report Status: Verified Date Reported: APR 20, 2024 Date Verified: APR 20, 2024 Plant Nursery Worker E-Sig:/ES/JONATAN MILLER MD Report: CT CHEST, ABDOMEN [...] Primary Interpreting Staff: JONATAN MILLER MD, RADIOLOGIST (Plant Nursery Worker) /[facility] Pathology Reports: +/- 30 days of [...] comes from all [place] treatment facilities. Date/Time Pathology Report Provider Source May 14, 2024 10:47 AM [facility] SURGICAL PATHOLOGY REPORT: LOCAL TITLE: LR SURGICAL PATHOLOGY REPORT STANDARD TITLE: PATHOLOGY REPORT DATE OF NOTE: MAY 14, 2024@10:47:04 ENTRY DATE: MAY 14, 2024@10:47:04 AUTHOR: VIPUL DASILVA COSIGNER: URGENCY: STATUS: COMPLETED $APHDR Reporting Lab: [facility] [CLIA# [id number]] [place] [address] - - - - - - - [...] Performing Laboratory: Surgical Pathology Report Performed By: [facility] [CLIA# [id number]] [place] [address] $FTR - - - - - - [...] - - - - - - DONNAJUAN JR STANDARD FORM 515 ID:[id number] SEX:M :1945 AGE: 78 LOC:[id number] PCP: Sonia Phillips /pablo/ VIPUL DASILVA MD STAFF PATHOLOGIST Signed: 05/14/2024 10:47 VIPUL DASILVA [facility] Encounter Notes: All associated [...] PF Date Administered: Apr 22, 2024 08:44 Curator: SANOFI PASTEUR Lot: [id number] Exp Date: Jan 25, 2025 Admin Route/Site: INTRAMUSCULAR/LEFT DELTOID Dosage: 0.5mL Vaccine Information Statement(s): INFLUENZA(FLU) VACC(INACTIVATED OR RECOMBINANT)VIS Mar 03, 2021 ([place]) Order By: Policy Administered By: Camilla Brown [...] vaccine. PNEUMOCOCCAL VACCINATION Pneumococcal Conjugate Vaccine PCV20 ([id number]) PCV20 (Prevnar 20) Administered: PNEUMOCOCCAL CONJUGATE PCV20, POLYSACCHARIDE [id number] CONJUGATE, ADJUVANT, PF Date Administered: Apr 22, 2024 08:46 Curator: [employer] Lot: [id number] Exp Date: Jan 25, 2025 [facility]: [id number] Admin Route/Site: INTRAMUSCULAR/RIGHT DELTOID Dosage: 0.5mL Vaccine Information Statement(s): PNEUMOCOCCAL CONJUGATE ([id number]) VIS December 07, 2022 ([place]) Order By: Policy Administered By: Camilla Brown [...] to lab /pablo/ JYOTSNA MEIER LPN STAFF GLOBAL ACCOUNT DIRECTOR Signed: 04/22/2024 10:25 CAMILLA BROWN [facility] Apr 22, 2024 07:57 AM INTERNAL MEDICINE [...] for the followin. Essential hypertension (SNOMED CT 63255691) 2. Major depressive disorder (SNOMED CT 739534855) 3. Generalized anxiety disorder (SNOMED CT 93517176) 4. Primary Obesity 5. Bronchiectasis (SNOMED CT 63567255) 6. Gastroesophageal reflux disease (SNOMED CT 142602678) 7. Bariatric Surgery Status 8. Cataracts (SNOMED CT 24239294) 9. Hypermetropia/Hyperopia 10. Astigmatism, Unspec 11. Presbyopia 12. Atrial fibrillation (SNOMED CT 87118873) 13. Varicose veins of lower extremity 14. Compulsive gambling 15. Bipolar disorder (SNOMED CT 58697591) 16. Mild cognitive disorder 17. Type 2 [...] Sleep dysfunction # Psychosis Follows with Dr. Delvlale with . No SI/HI. Feels this is [...] Dr. Trenton Yeung MD Internal Medicine/Dermatology PGY-4 --7715 Education on Treatment Plan: Patient indicates readiness [...] RESIDENT PHYSICIAN Signed: 04/22/2024 16:44 LYUBOV YEUNG [facility]
--- OUTSIDE RECORDS SUMMARY | 2024-09-05 10:21 | XMS_ITS | Encounter Summary ---
Author Name [facility] Organization [facility] Address [address] [facility] [place] [address] Care Team Providers Care Operational Trainer Name Role Phone SONIA PHILLIPS Primary Care [...] PART B Sep 26, 2012 PART B [id number] [phone] JUAN THOMPSON JR PATIENT MEDICARE (WNR) MEDICARE (M) PART A Sep 26, 2012 PART A [id number] JUAN THOMPSON JR PATIENT Selected Encounter This section includes the information on record at [place] for the Encounter. Date/Time Encounter Type Encounter Description Reason Pro vider Source Jul 16, 2024 08:30 AM Outpatient Encounter ENDOCRINOLOGY IHE Encounter Template Text not used by [place] Plan of Treatment: Future Appointments (+ 6 months) and Future Tests (+/- 45 days) The Plan of Treatment section includes future care activities for the patient [facility] [place] [facility] This section includes future appointments and future orders which are active, pending or scheduled. Future Appointments This section includes appointments that were scheduled to occur 6 months from the date of the Encounter, up to a maximum of 20 appointments. The data comes from all [facility]. Appointment Date/Time Appointment Type Appointme nt Facility Name Jul 23, 2024 09:00 AM [place] [facility] Jul 28, 2024 09:00 AM AM[place]ORY [place]ONE [place] [facility] Aug 14, 2024 03:00 PM AMBUL[place]ORY - NONE [place] [facility] Aug 18, 2024 10:30 AM AMBUL[place]ORY - [place]ONE [place] [facility] Aug 31, 2024 09:00 AM AM[place]UL[place] [facility] Sep 03, 2024 08:00 AM AM[place] [facility] Sep 17, 2024 08:00 AM [place]ORY [place]IC[place] [facility] Sep 17, 2024 09:00 AM [place]IC[place] [facility] Sep 18, 2024 01:00 PM AMBUL[place] [facility] Sep 24, 2024 07:00 AM AMBUL[place]ORY - NONE [place] [facility] Oct 02, 2024 03:00 PM AMBUL[place]ORY - NONE [place] [facility] Oct 07, 2024 09:00 AM [place]ORY [place]ICINE [place] [facility] Oct 19, 2024 09:30 AM [place] [facility] Active, Pending, and Scheduled Orders This section includes a listing of several types of active, pending, and scheduled orders, including clinic medications orders, diagnostic test orders, procedure orders and consult orders; where the start date of the order is 45 days before the date of the Encounter or 45 days after the date of theEncounter. The data comes from all [facility]. Test Date/Time Test Type Test Details Facility Name Jun 19, 2024 04:32 PM Consult Order COMMUNITY CARE-NUCLEAR MEDICINE Cons Reimbursement Coordinator's Choice [facility] Aug 26, 2024 07:52 AM Consult Order [facility] SKILLED HOME CARE Cons Reimbursement Coordinator's Choice [facility] Lab Results: +/- 30 [...] Range Comment Jul 13, 2024 11:18 AM [facility] BNP Specimen Type: PLASMA No comment entered. Ordering Provider: SARAH STANLEY Report Released Date/Time: Jul 13, 2024 11:12 AM Reporting Lab: [facility] [id number] Performing Lab: [facility] [id number] BNP 55 pg/mL <99 Jul 13, 2024 11:18 AM [facility] COMPREHENSIVE METABOLIC PANEL+MG Specimen Type: PLASMA No comment entered. Ordering Provider: SARAH STANLEY Report Released Date/Time: Jul 13, 2024 11:12 AM Reporting Lab: [facility] [id number] Performing Lab: [facility] [id number] CREATININE 1.1 mg/dL 0.7-1.2 UREA NITROGEN 29 [...] 21, 2023 10:30 AM VA-TOBACCO FORMER USER [facility] Tobacco Use History This section includes a history of the smoking, or tobacco-related health factors, that were collected on or before the date of the Encounter. The data comes from the [place] facility where the Encounter took place. Date/Time Smoking Status/Tobacco Use Comment F acility Aug 21, 2023 10:30 AM VA-TOBACCO QUIT 15 YRS OR MORE [facility] Aug 15, 2022 09:00 AM VA-TOBACCO FORMER USER [facility] Aug 15, 2022 09:00 AM VA-TOBACCO QUIT 15 YRS OR MORE [facility] Aug 21, 2021 01:00 PM VA-TOBACCO FORMER USER [facility] Aug 21, 2021 01:00 PM VA-TOBACCO QUIT 15 YRS OR MORE [facility] Jul 09, 2018 08:58 AM VA-TOBACCO FORMER USER [facility] Jul 09, 2018 08:58 AM VA-TOBACCO QUIT 15 YRS OR MORE [facility] Jul 18, 2017 09:58 AM FORMER TOBACCO USER 7Y OR GREATE R [facility] Aug 14, 2016 10:59 AM FORMER TOBACCO USER 7Y OR GREATE R [facility] Jun 29, 2015 02:03 PM FORMER TOBACCO USER 7Y OR GREATE R [facility] Jan 06, 2014 03:04 PM FORMER TOBACCO USER 7Y OR GREATE R [facility] Jan 04, 2012 08:36 AM FORMER TOBACCO USER 7Y OR GREATE R [facility] Pathology Reports: +/- 30 days [...] the Encounter. The data comes from all [facility] facilities. Date/Time Pathology Report Provider Source Jun 16, 2024 12:06 PM LR SURGICAL PATHOL OGY REPORT: LOCAL TITLE: LR SURGICAL PATHOLOGY REPORT STANDARD TITLE: PATHOLOGY REPORT DATE OF NOTE: JUN 16, 2024@12:06:01 ENTRY DATE: JUN 16, 2024@12:06:01 AUTHOR: SARAH OROURKE COSIGNER: URGENCY: STATUS: COMPLETED $APHDR Reporting Lab: [facility] [CLIA# [id number]] [place] [address] - - - - - - - [...] - - - PATHOLOGY REPORT Accession No. [id number] - - - - - [...] cassette B. Grossing performed by: DAVID, Wood Panel Inspector Entered by: DAVID, Wood Panel Inspector Grossing confirmed by: Sarah Orourke, Hematopathologist This report includes the results of laboratory tests utilizing Analyte Specific Reagents or commercially available antibodies (Pike and Lambda CISH Probes). These tests have been developed, fully validated, and their optimal performance characteristics determined by the [facility]. Such tests have not [...] see also concurrent negative flow cytometry study ([id number]). Imaging studies concerning for possible lytic lesions [...] controls for CD3, CD20, CD34, CD61, CD138, Pike and lambda light chains, and pankeratin are performed on the clot and biopsy sections. Rare blasts are seen. Megakaryocytes appear generally adequate in number and morphology. Scattered and small groups of B- and T-cells are present with T-cells exceeding B-cells. Plasma cells appear normal in number and distribution and appear polyclonal. Pankeratin stain is negative. /pablo/ SARAH OROURKE MD STAFF PATHOLOGIST, PATHOLOGY & LABORATORY [facility] Signed Jun 16, 2024@12:06 Performing Laboratory: Surgical Pathology Report Performed By: [facility] [CLIA# [id number]] [place] [address] $FTR - - - - - - - - - - - - - - - - - - - - - - - - - - - - - - - - - - - - - - - - (End of report) SARAH OROURKE MD [facility] [place] Date Jun 16, 2024 - - - - - - - - - - - - - - - - - - - - - - - - - - - - - - - - - - - - - - - - JUAN THOMPSON JR STANDARD FORM 515 ID:[id number] SEX:M :1945 AGE: 78 LOC:[id number] PCP: Sonia Phililps /pablo/ SARAH OROURKE MD STAFF PATHOLOGIST, PATHOLOGY & LABORATORY [facility] Signed: 06/16/2024 12:06 SARAH OROURKE [facility] Jun 16, 2024 12:02 PM LR SURGICAL PATHOL OGY REPORT: LOCAL TITLE: LR SURGICAL PATHOLOGY REPORT STANDARD TITLE: PATHOLOGY REPORT DATE OF NOTE: JUN 16, 2024@12:02:40 ENTRY DATE: JUN 16, 2024@12:02:40 AUTHOR: SARAH OROURKE EXP COSIGNER: URGENCY: STATUS: COMPLETED $APHDR Reporting Lab: [facility] [CLIA# [id number]] [place] [address] - - - - - - - [...] - - - PATHOLOGY REPORT Accession No. [id number] - - - - - - [...] morphologic correlation see bone marrow biopsy report [id number]. Summary: On CD45 vs. side scatter analysis, [...] the U.[place]. Food and Drug Administration. /pablo/ SARAH OROURKE MD STAFF PATHOLOGIST, PATHOLOGY & LABORATORY [facility] Signed Jun 16, 2024@12:02 Performing Laboratory: Surgical Pathology Report Performed By: [facility] [CLIA# [id number]] [place] [address] $FTR - - - - - - - - - - - - - - - - - - - - - - - - - - - - - - - - - - - - - - - - (End of report) SARAH OROURKE MD [facility] [place] [place] Date Jun 16, 2024 - - - - - - - - - - - - - - - - - - - - - - - - - - - - - - - - - - - - - - - - JUAN THOMPSON JR STANDARD FORM 515 ID:[id number] SEX:M :1945 AGE: 78 LOC:[id number] PCP: Sonia Phillips /pablo/ SARAH OROURKE MD STAFF PATHOLOGIST, PATHOLOGY & LABORATORY [facility] Signed: 06/16/2024 12:02 SARAH OROURKE [facility] Encounter Notes: All associated encounter notes This section contains the clinical notes associated to the Encounter. Date/Time Encounter Note(s) Provider Source Jul 16, 2024 09:48 AM NO SHOW NOTE: LOCAL TITLE: NO SHOW/CANCELLATION CLINIC NOTE STANDARD TITLE: NO SHOW NOTE DATE OF NOTE: JUL 16, 2024@09:48 ENTRY DATE: JUL 16, 2024@09:48:23 AUTHOR: ISAEL ALVAREZ EXP COSIGNER: URGENCY: STATUS: COMPLETED not seen for scheduled appointment due to: No Show --alerting metabolic [facility]SA for assistance with rescheduling /pablo/ ISAEL ALVAREZ MD PHYSICIAN Signed: 07/16/2024 09:48 Receipt Acknowledged By: 07/20/2024 09:48 /pablo/ SHANIKA BROWN [facility]ED [facility] ISAEL ALVAREZ [facility]
--- OUTSIDE RECORDS SUMMARY | 2024-09-05 10:21 | XMS_ITS | Encounter Summary ---
Author Name [facility] Organization [facility] Address [address] [place] [address] Care Team Providers Care Risk Analyst Name Role Phone SONIA PHILLIPS Primary Care [...] PART B Sep 26, 2012 PART B [id number] [facility] [phone] GIO THOMPSON JR PATIENT MEDICARE (WNR) MEDICARE (M) PART A Sep 26, 2012 PART A [id number] [phone] GIO THOMPSON JR PATIENT Selected Encounter This section includes the information on record at ME for the Encounter. Date/Time Encounter Type Encounter Description Reason Provider Source Apr 29, 2024 10:30 AM OFFICE O/P EST MOD 30 MIN ORTHO/JOINT SURG ICD-10-CM M17.0 Bilateral primary osteoarthritis of knee [facility] Encounter Template Text not used by ME Assessments - Encounter Diagnoses This section includes the primary and secondary diagnoses documented for the Encounter. Date/Time Primary/Secondary Diagnosis Diagnosis Name Provider Source Apr 29, 2024 02:33 PM PRIMARY Bilateral primary osteoarthritis of knee ZULEMA CARVAL[facility] Apr 29, 2024 02:33 PM SECONDARY Unilateral primary osteoarthritis, right hip ZULEMA CARVALHO [facility] Plan of Treatment: Future Appointments (+ 6 months) and Future Tests (+/- 45 days) The Plan of Treatment section includes future care activities for the [facility] This section includes future appointments and future orders which are active, pending or scheduled. Future Appointments This section includes appointments that were scheduled to occur 6 months from the date of the Encounter, up to a maximum of 20 appointments. The data comes from all [place] treatment facilities. Appointment Date/Time Appointment Type Appointme nt Facility Name May 13, 2024 12:00 PM [facility] [place] NONE [place] May 13, 2024 01:00 PM [facility] [place] [facility] May 20, 2024 09:45 AM [facility] [facility] May 26, 2024 09:15 AM [facility] Jun 03, 2024 10:00 AM [facility] Jun 04, 2024 09:30 AM [facility] Jun 05, 2024 01:30 PM [facility] Jun 12, 2024 07:30 AM [facility] Jun 12, 2024 08:30 AM [facility] [place] [facility] [facility] Jun 23, 2024 10:15 AM [facility] [place] [facility] Jul 06, 2024 08:30 AM [facility] [place] [facility] [place] [facility] [facility] Jul 08, 2024 11:07 AM [facility] [place] [facility] [facility] Jul 13, 2024 10:00 AM [facility] Jul 16, 2024 07:30 AM [facility] Jul 16, 2024 08:30 AM [facility] Jul 16, 2024 09:00 AM [facility] [place] [facility] [facility] Jul 16, 2024 09:30 AM [facility] [place] [facility] [place] [facility] Jul 23, 2024 09:00 AM [facility] Jul 28, 2024 09:00 AM [facility] Aug 14, 2024 03:00 PM [facility] Active, Pending, and Scheduled Orders This section includes a listing of several types of active, pending, and scheduled orders, including clinic medications orders, diagnostic test orders, procedure orders and consult orders; where the start date of the order is 45 days before the date of the Encounter or 45 days after the date of theEncounter. The data comes from all [place] treatment facilities. Test Date/Time Test Type Test Details Facility Name Mar 18, 2024 05:05 PM Consult Order CARDIAC EC HO OUTPT-ALL SITES Cons [facility] [employer] Operator[facility] Lab Results: +/- 30 days [...] Range Comment May 20, 2024 09:[address] [facility] FINGERSTICK GLUCOSE Specimen Type: BLOOD Comment: Save Result Ordering Provider: TANK PHILLIPS Report Released Date/Time: May 20, 2024 03:03 PM Reporting Lab: [facility] [phone] Performing Lab: [facility] [phone] FINGERSTICK GLUCOSE 148 mg/dL H 70-100 May 13, 2024 11:[address] [facility] KAPPA/LAMBDA LC FREE,RATIO Specimen Type: [...] therapy of these disorders. Test Performed by [facility] [place], [employer], [address] [place] [address] Devante Meyer M.D., Ph.D., Director of Laboratories , [place] [id number] Ordering Provider: RENUKA JOHNSON Report Released Date/Time: Apr 24, 2024 04:08 PM Reporting Lab: [facility] [phone] Performing Lab: [facility] [id number] [place] [address] .KAPPA LT CHAIN,FREE 27.3 mg/L H 3.3-19.4 .LAMBDA LC,FREE 15.8 mg/L 5.7-26.3 .KAPPA/LAMBDA, FREE 1.73 H 0.26-1.65 May 13, 2024 11:[address] [facility] LD,TOTAL Specimen Type: PLASMA No comment entered. Ordering Provider: RENUKA JOHNSON Report Released Date/Time: Apr 24, 2024 04:08 PM Reporting Lab: [facility] [address] Performing Lab: [facility] [address] LD,TOTAL 141 U/L 125-220 May 13, 2024 11:[address] [facility] URIC ACID Specimen Type: PLASMA No comment entered. Ordering Provider: RENUKA JOHNSON Report Released Date/Time: Apr 24, 2024 04:08 PM Reporting Lab: [facility] [phone] Performing Lab: [facility] [address] URIC ACID 3.1 mg/dL L 3.7-7.7 May 13, 2024 11:[address] [facility] B 12 Specimen Type: SERUM No comment entered. Ordering Provider: RENUKA JOHNSON Report Released Date/Time: Apr 24, 2024 04:08 PM Reporting Lab: [facility] [phone] Performing Lab: [facility] [address] B 12 722 pg/mL 213-816 May 13, 2024 11:[address] [facility] FOLATE Specimen Type: SERUM No comment entered. Ordering Provider: RENUKA JOHNSON Report Released Date/Time: Apr 24, 2024 04:08 PM Reporting Lab: [facility] [address] Performing Lab: [facility] [address] FOLATE 14.6 ng/mL >7.0 May 13, 2024 11:[address] [facility] PHOSPHORUS Specimen Type: PLASMA No comment entered. Ordering Provider: RENUKA JOHNSON Report Released Date/Time: Apr 24, 2024 04:08 PM Reporting Lab: [facility] [phone] Performing Lab: [facility] [address] PHOSPHORUS 3.3 mg/dL 2.3-4.3 May 13, 2024 11:[address] [facility] IRON GROUP Specimen Type: SERUM No comment entered. Ordering Provider: RENUKA JOHNSON Report Released Date/Time: Apr 24, 2024 04:08 PM Reporting Lab: [facility] [address] Performing Lab: [place] [phone] IRON 101 ug/dL 65-175 TIBC,CALCULATE D 313 ug/dL 250-425 FERRITIN pending IRON SATURATION 32 20-50 TRANSFERRIN 250 mg/dL 163-382 May 13, 2024 11:[address] [facility] BETA 2-MICROGLOBULIN Specimen Type: SERUM No comment entered. Ordering Provider: RENUKA JOHNSON Report Released Date/Time: Apr 24, 2024 04:08 PM Reporting Lab: [facility] [address] Performing Lab: [facility] [address] BETA 2-MICROGLOBULI N 3.36 mg/L H 0.97-2.64 May 13, 2024 11:[address] [facility] PSA Specimen Type: SERUM No comment entered. Ordering Provider: ABBY MEANS Report Released Date/Time: May 12, 2024 08:28 PM Reporting Lab: [facility] [address] Performing Lab: [facility] [address] PSA 0.49 ng/mL <4.00 May 13, 2024 11:[address] [facility] TOTAL IMMUNOGLOB (IGA,IGG,IGM) Specimen Type: PLASMA No comment entered. Ordering Provider: RENUKA JOHNSON Report Released Date/Time: Apr 24, 2024 04:08 PM Reporting Lab: [facility] [address] Performing Lab: [facility] [address] IGM 78.8 mg/dL 22.0-293.0 IGG 714.3 mg/dL 540.0-18 22 .0 IGA 123.8 mg/dL 63.0-645.0 May 13, 2024 11:[address] [facility] TESTOSTERONE Specimen Type: SERUM No comment entered. Ordering Provider: ABBY MEANS Report Released Date/Time: May 12, 2024 08:30 PM Reporting Lab: [facility] [address] Performing Lab: [facility] [address] TESTOSTERONE 534 ng/dL 221-870 May 13, 2024 11:[address] [facility] CBC & DIFF Specimen Type: BLOOD Comment: Automated Differential Performed Ordering Provider: RENUKA JOHNSON Report Released Date/Time: Apr 24, 2024 04:08 PM Reporting Lab: [facility] [phone] Performing Lab: [facility] [address] WBC 8.3 4.0-11.0 RBC 4.04 L 4.60-6.20 [...] 0.0-0.1 May 13, 2024 11:[address] [facility] COMPREHENSIVE METABOLIC PANEL+MG Specimen Type: PLASMA No comment entered. Ordering Provider: RENUKA JOHNSON Report Released Date/Time: Apr 24, 2024 04:08 PM Reporting Lab: [facility] [address] Performing Lab: [facility] [address] CREATININE 1.0 mg/dL 0.7-1.2 UREA NITROGEN 26 [...] >60 May 13, 2024 11:[address] [facility] PERIPHERAL SMEAR PATHOLOGIST REVIEW Specimen Type: BLOOD No comment entered. Ordering Provider: RENUKA JOHNSON Report Released Date/Time: May 13, 2024 01:51 PM Reporting Lab: [facility] [phone] Performing Lab: [facility] [phone] PERIPHERAL SMEAR PATHOLOGIST REVIEW SLIDES MADE Apr 22, 2024 10:[address] [facility] ELP/IMMFIX,SERUM PANEL Specimen Type: SERUM Comment: Decreased gamma fraction may be seen in certain lymphoproliferat jeff disorders. Recommend submitting a 24 hr urine for ELP and immunofixation tests. Ordering Provider: LYUBOV YEUNG Report Released Date/Time: Apr 22, 2024 10:20 AM Reporting Lab: [facility] [address] Performing Lab: [facility] [address] PROTEIN,TOTAL 6.0 g/dL L 6.4-8.3 .ALBUMIN FRACTION 3.63 g/dL L 3.66-4.78 .ALPHA 1 FRACTION 0.37 g/dL 0.14-0.38 .ALPHA 2 FRACTION 0.81 g/dL 0.50-0.90 .BETA 1 FRACTION 0.34 g/dL 0.33-0.55 .BETA 2 FRACTION 0.28 g/dL 0.20-0.52 .GAMMA FRACTION 0.57 g/dL L 0.58-1.72 .TOTAL PROTEIN 6.0 g/dL 6.0-8.3 .INTERPRETATIO N NO MONOCLONALS DETECTED Apr 22, 2024 10:[address] [facility] ELP/IMMFIX,URINE RANDOM PANEL Specimen Type: URINE No comment entered. Ordering Provider: LYUBOV YEUNG Report Released Date/Time: Apr 22, 2024 10:20 AM Reporting Lab: [facility] [address] Performing Lab: [facility] [phone] PROTEIN,T. RANDOM UR <6.8 mg/dL <14.0 .INTERPRETATIO N,UR NO MONOCLONALS DETECTED Apr 22, 2024 08:[address] [facility] CBC Specimen Type: BLOOD No comment entered. Ordering Provider: LYUBOV YEUNG Report Released Date/Time: Oct 09, 2023 11:10 AM Reporting Lab: [facility] [address] Performing Lab: [facility] [address] WBC 9.8 4.0-11.0 RBC 4.45 L 4.60-6.20 HGB 13.0 g/dL L 13.5-17.9 HCT 40.2 L 41-54 MCV 90.3 fL 80-100 MCH 29.2 pg 27-33 MCHC 32.3 g/dL 32.0-37.5 PLT 328 150-400 MPV 9.7 fL 9.1-13.0 RDW 14.3 11.5-14.5 Apr 22, 2024 08:[address] [facility] BASIC METABOLIC PANEL+MG Specimen Type: PLASMA No comment entered. Ordering Provider: LYUBOV YEUNG Report Released Date/Time: Oct 09, 2023 11:10 AM Reporting Lab: [facility] [address] Performing Lab: [facility] [address] CREATININE 1.0 mg/dL 0.7-1.2 UREA NITROGEN 18 mg/dL 8-26 GLUCOSE 217 mg/dL H 70-100 SODIUM 144 mmol/L 136-145 POTASSIUM 4.3 mmol/L 3.5-5.1 CHLORIDE 106 mmol/L 98-107 CO2 31 mmol/L H 22-29 CALCIUM 9.6 mg/dL 8.4-10.2 MAGNESIUM 1.4 mg/dL L 1.6-2.6 ANION GAP 7 mmol/L 5-15 .CREAT EGFR(CKD-EPI) 78 >60 Apr 20, 2024 08:[address] [facility] POC CREATININE Specimen Type: BLOOD No comment entered. Ordering Provider: TANK PHILLIPS Report Released Date/Time: Apr 20, 2024 08:30 AM Reporting Lab: [facility] [address] Performing Lab: [facility] [address] POC CREATININE 1.1 mg/dL 0.6-1.3 Vital Signs: All taken on the encounter date This section contains inpatient and outpatient Vital Signs collected on the date of the Encounter. Date/Time Temperature Pulse Blood Pressure Respiratory Rate SP02 Pain Height Weight Body Mass Index Source Apr 29, 2024 12:02 PM 158 24 [place] [facility] Social History: [...] 2023 10:30 AM VA-TOBACCO FORMER USER [facility] Tobacco Use History This section includes a history of the smoking, or tobacco-related health factors, that were collected on or before the date of the Encounter. The data comes from the [place] facility where the Encounter took place. Date/Time Smoking Status/Tobacco Use Comment [facility] [facility] Aug 21, 2023 10:30 AM [place]-TOBACCO QUIT [address] [facility] Aug 15, 2022 09:00 AM VA-TOBACCO FORMER USER [facility] Aug 15, 2022 09:00 AM VA-TOBACCO QUIT [address] [facility] Aug 21, 2021 01:00 PM VA-TOBACCO FORMER USER [facility] Aug 21, 2021 01:00 PM VA-TOBACCO QUIT [address] [facility] Jul 09, 2018 08:58 AM VA-TOBACCO FORMER USER [facility] Jul 09, 2018 08:58 AM VA-TOBACCO QUIT [address] [facility] Jul 18, 2017 09:58 AM FORMER TOBACCO USER 7Y OR GREATE R [facility] Aug 14, 2016 10:59 AM FORMER TOBACCO USER 7Y OR GREATE R [facility] Jun 29, 2015 02:03 PM FORMER TOBACCO USER 7Y OR GREATE R [facility] Jan 06, 2014 03:04 PM FORMER TOBACCO USER 7Y OR GREATE R [facility] Jan 04, 2012 08:36 AM FORMER TOBACCO USER 7Y OR GREATE R [facility] Radiology Reports: +/- 30 days [...] the Encounter. The data comes from all [facility] [place] facilities. Date/Time Radiology Report Provider Source May 20, 2024 09:[address] BODY W/O CONTRAST (P): GIO THOMPSON [id number] [facility]-1945 M Ex Date: MAY 20, 2024@09:14 Req Phys: LYUBOV YEUNG Loc: [facility] APACT L RES 03 WH 4F (Req' Img Loc: NUC MED Service: [place] [address] (Case [id number] COMPLETE) SKULL-THIGH PET IMAGE W/CT (NM Detailed) CPT:00726 Reason for Study: eval for malignancy (Case [...] pager listed below: User placing orders pager: [phone] LAST CREATININE 1.0 (04/22/24) Report Status: Verified Date Reported: MAY 20, 2024 Date Verified: MAY 20, 2024 Regulatory Auditor E-Sig:/ES/RUFUS GROVES MD, FACR, CCD Report: PET/CT [...] Staff: RUFUS GROVES MD, FACR, STAFF RADIOLOGIST (Regulatory Auditor) /BSF RUFUS GROVES [facility] Apr 20, 2024 08:[address] (CAP) CHEST/ABD/PELVIS (P): GIO THOMPSON [id number] -1945 M Exm Date: APR 20, 2024@08:07 Req Phys: RACHEL WATSON Pat Loc: [facility] APACT L RES 03 WH 4F (Req' Img Loc: CT IMAGING Service: [place] [address] (Case 147 COMPLETE) CT (CAP) CHEST W CONTRAST (CT Detailed) CPT:60138 Contrast Media : Non-ionic Iodinated Reason for Study: 78M with weight loss & lymphadenopathy, CT for malignancy eval (Case 148 COMPLETE) CT (CAP) ABDOMEN/PELVIS W CONTRAS(CT Detailed) CPT:26197 Contrast Media : Non-ionic Iodinated Clinical History: [...] any questions or notifications of critical findings: [phone] If ordering provider is a trainee, enter [...] PLASMA .CREAT EGFR(CKD-E 63 Ref: >=60 Allergies: ([place] only) SULFAMETHOXAZOLE (Feb 07, 2022) EMPAGLIFLOZIN (Jun 06, 2022) Report Status: Verified Date Reported: APR 20, 2024 Date Verified: APR 20, 2024 Regulatory Auditor E-Sig:/ES/JONATAN MILLER MD Report: CT CHEST, ABDOMEN [...] Primary Interpreting Staff: JONATAN MILLER MD, RADIOLOGIST (Regulatory Auditor) /JONATAN GOMEZ [facility] Pathology Reports: +/- 30 days [...] the Encounter. The data comes from all [place] treatment facilities. Date/Time Pathology Report Provider Source May 14, 2024 10:47 AM [facility] SURGICAL PATHOLOGY REPORT: LOCAL TITLE: LR SURGICAL PATHOLOGY REPORT STANDARD TITLE: PATHOLOGY REPORT DATE OF NOTE: MAY 14, 2024@10:47:04 ENTRY DATE: MAY 14, 2024@10:47:04 AUTHOR: VIPUL DASILVA COSIGNER: URGENCY: STATUS: COMPLETED $APHDR Reporting Lab: [facility] [CLIA# [id number]] [place] [employer] [place] [address] - - - - - - - [...] Laboratory: Surgical Pathology Report Performed By: [facility] [CLIA# [id number]] [place] [address] $FTR - - - - - - [...] - - - - - GIO THOMPSON SIRIA LANDAVERDE STANDARD FORM 515 ID:[id number] SEX:M :1945 AGE: 78 LOC:[id number] PCP: Sonia Phillips /pablo/ VIPUL DASILVA MD STAFF PATHOLOGIST Signed: 05/14/2024 10:[address] [facility] Encounter Notes: All associated encounter [...] MD RESIDENT Signed: 04/29/2024 14:[address] [facility]
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
--- OUTSIDE RECORDS SUMMARY | 2024-09-05 10:21 | XMS_ITS | Encounter Summary ---
Author Name [facility] [place] [facility] [place] Address [address] [place] [address] Care Team Providers Care Inside Solar Sales Consultant Name Role Phone MARIUSZ PHILLIPS Primary [...] PART B Sep 26, 2012 PART B [id number] [facility] [phone] JUAN THOMPSON JR PATIENT MEDICARE (WNR) MEDICARE (M) PART A Sep 26, 2012 PART A [id number] [phone] JUAN THOMPSON JR PATIENT Selected Encounter This section includes the information on record at CT for the Encounter. Date/Time Encounter Type Encounter Description Reason Provider Source Oct 09, 2023 10:00 AM OFFICE O/P EST MOD 30 MIN PRIMARY CARE/MEDICINE ICD-10-CM W19.XXXD Unspecified fall, subsequent encounter LINDA OVIEDO I IHBaldo Encounter Template Text not used by CT Assessments - Encounter Diagnoses This section includes the primary and secondary diagnoses documented for the Encounter. Date/Time Primary/Secondary Diagnosis Diagnosis Name Provider Source Oct 09, 2023 03:09 PM PRIMARY Unspecified fall, subsequent encounter [facility] Oct 09, 2023 03:09 PM SECONDARY Asymptomatic varicose veins of bilateral lower extremities [facility] Oct 09, 2023 03:09 PM SECONDARY Bipolar II disorder [facility] Oct 09, 2023 03:09 PM SECONDARY Bronchiectasis, uncomplicated [facility] Oct 09, 2023 03:09 PM SECONDARY Essential (primary) hypertension [facility] Oct 09, 2023 03:09 PM SECONDARY Gastro-esophageal reflux disease without esophagitis [facility] Oct 09, 2023 03:09 PM SECONDARY Generalized anxiety disorder [facility] Oct 09, 2023 03:09 PM SECONDARY half-way (current) use of anticoagulants [facility] Oct 09, 2023 03:09 PM SECONDARY Major depressive disorder, recurrent, moderate [facility] Oct 09, 2023 03:09 PM SECONDARY Other drug induced secondary parkinsonism [facility] Oct 09, 2023 03:09 PM SECONDARY Type 2 diabetes mellitus with unspecified complications [facility] Oct 09, 2023 03:09 PM SECONDARY Unspecified atrial fibrillation [facility] Oct 09, 2023 03:09 PM SECONDARY Unspecified dementia, mild, with other behavioral disturb [facility] Plan of Treatment: Future Appointments (+ 6 months) and Future Tests (+/- 45 days) The Plan of Treatment section includes future care activities for the patient from all CT treatmentfacilities. This section includes future appointments and [...] 09:30 AM AMBULATORY - [place]IC[place] [facility] Nov 07, 2023 10:30 AM [place]IC[place] [facility] Nov 07, 2023 11:30 AM AMB[place] [facility] Nov 07, 2023 11:45 AM [place]ORY [place]ICINE [place] [facility] Nov 20, 2023 09:00 AM [place] [facility] December 05, 2023 09:30 AM AMB[place] [facility] Feb 07, 2024 11:00 AM AM[place]ORY [place] [facility] Feb 07, 2024 11:30 AM AMB[place] [facility] Feb 07, 2024 12:30 PM AMB[place]ORY - NONE [place] [facility] Feb 18, 2024 08:00 AM AMBULATORY - [place]ICINE [place] [facility] Mar 05, 2024 07:30 AM [place]ORY [place]ICINE [place] [facility] Mar 05, 2024 08:30 AM [place]ORY [place]ICINE [place] [facility] Mar 05, 2024 10:00 AM [place]ORY [place]IC[place] [facility] Mar 09, 2024 08:45 AM AMBUL[place]ORY [place] [facility] Mar 16, 2024 09:00 AM AM[place]ORY [place]ICINE [place] [facility] Mar 16, 2024 10:15 AM [place]ORY - NONE [place] [facility] Mar 27, 2024 07:00 AM [place]ORY - NONE [place] [facility] Mar 31, 2024 07:00 AM [place]ORY - NONE [place] [facility] Lab Results: +/- 30 days [...] Comment Nov 07, 2023 11:14 AM [facility] VIT D 25-OH,TOTAL Specimen Type: SERUM No comment entered. Ordering Provider: ISAEL ALVAREZ Report Released Date/Time: Nov 07, 2023 10:08 AM Reporting Lab: [facility] [id number] Performing Lab: [facility] [id number] VIT D 25-OH,TOTAL 70 ng/mL H 12-50 Nov 07, 2023 09:38 AM [facility] VITAMIN A Specimen Type: SERUM Comment: Vitamin supplementation within 24 hours prior to blood draw may affect the accuracy of the results. This test was developed and its analytical performance characteristics have been determined by [employer] [place], [place]. It has not been cleared or approved by the U.S. Food and Drug Administration. This assay has been validated pursuant to the CLIA regulations and is used for clinical purposes. Test Performed by [facility], [employer] [facility], [address] [place] [address] Devante Meyer M.D., Ph.D., Director of Laboratories , [place] [id number] Ordering Provider: ISAEL ALVAREZ Report Released Date/Time: Jul 11, 2023 10:23 AM Reporting Lab: [facility] [id number] Performing Lab: [facility] [id number] [facility] VITAMIN A 58 ug/dL 38-98 Nov 07, 2023 09:38 AM [facility] HEMOGLOBIN A1C Specimen Type: [...] 11, 2023 10:23 AM Reporting Lab: [facility] [id number] Performing Lab: [facility] [id number] HEMOGLOBIN A1C 6.4 H 4.0-6.0 Oct 09, 2023 08:35 AM [facility] HEMOGLOBIN A1C Specimen Type: [...] Aug 29, 2023 04:30 PM Reporting Lab: [facility] [id number] Performing Lab: [facility] [id number] HEMOGLOBIN A1C 6.4 H 4.0-6.0 Oct 09, 2023 08:35 AM [facility] CBC Specimen Type: BLOOD No comment entered. Ordering Provider: TUAN YEUNG Report Released Date/Time: Aug 29, 2023 04:30 PM Reporting Lab: [facility] [id number] Performing Lab: [facility] [id number] WBC 7.18 10*3/uL 4.0-11.0 RBC 3.94 10*6/uL L 4.6-6.2 HGB 11.7 g/dL L 13.5-17.9 HCT 36.0 L 41-54 MCV 91.4 fL 80-100 MCH 29.7 pg 27-33 MCHC 32.5 g/dL 32.0-37.5 PLT 266 10*3/uL 150-400 MPV 9.7 fL 7.4-10.4 RDW 14.3 11.5-14.5 Oct 09, 2023 08:35 AM [facility] BASIC METABOLIC PANEL+MG Specimen Type: PLASMA No comment entered. Ordering Provider: TUAN YEUNG Report Released Date/Time: Aug 29, 2023 04:30 PM Reporting Lab: [facility] [id number] Performing Lab: [facility] [id number] CREATININE 1.1 mg/dL 0.7-1.2 UREA NITROGEN 22 [...] 117/78 16 98 0 68 [address] [facility] Social History: Smoking Status (Most current) and Tobacco Use (All prior to encounter date) This section includes the most current, and the historical, smoking and tobacco- related health factors from the [facility] [...] 7Y OR GREATE R [facility] Encounter Notes: All associated encounter notes This section contains the clinical notes associated to the Encounter. Date/Time Encounter Note(s) Provider Source Feb 24, 2024 10:19 AM ADDENDUM: LOCAL TITLE: Addendum STANDARD TITLE: ADDENDUM DATE OF NOTE: FEB 24, 2024@10:19:09 ENTRY DATE: FEB 24, 2024@10:19:10 AUTHOR: MARIUSZ PHILLIPS EXP COSIGNER: URGENCY: STATUS: COMPLETED Alerting PCP to [...] will start services during the week of 3/25 d/t staff availability. As relates to his [...] to his falls. He was referred to ROOM SERVICE FOOD SERVER at last visit, where eval showed mild [...] SNV QOW for medication set-up, has a NAIL MAKER/HM on MWF for 5.5 hours/week for personal cares and homemaking services, and is pending home PT enrollment. He has a court appointed guardian as below. Name of guardian: [facility], Flor Diaz, Elaina Verdugo and/or Jj Lassiter Contact information for guardian: [address] [facility] [address] Office: [phone] Past medical history/Active Problems: Active problems - Computerized Problem List is the source for the followin. Essential hypertension (SNOMED CT 31723099) 2. Major depressive disorder (SNOMED CT 284153748) 3. Generalized anxiety disorder (SNOMED CT 90444567) 4. Primary Obesity 5. Bronchiectasis (SNOMED CT 23502156) 6. Gastroesophageal reflux disease (SNOMED CT 717002064) 7. Bariatric Surgery Status 8. Cataracts (SNOMED CT 72904408) 9. Hypermetropia/Hyperopia 10. Astigmatism, Unspec 11. Presbyopia 12. Atrial fibrillation (SNOMED CT 67936964) 13. Varicose veins of lower extremity 14. Compulsive gambling 15. Bipolar disorder (SNOMED CT 18204995) 16. Mild cognitive disorder 17. Type 2 [...] hands, and also reportedly of tongue per ROOM SERVICE FOOD SERVER exam), shuffling gait, increasing difficulty with turns/stopping/starting, [...] # OA Affected: hips, knees. Following with CT obdulio, planning for R hip MARK. - [...] Tuan Yeung MD Internal Medicine/Dermatology PGY-3 --3218 /aneesh YEUNG MD RESIDENT PHYSICIAN Signed: 10/09/2023 15:17 Receipt Acknowledged By: 10/13/2023 22:17 /aneesh FIGUEROA MD STAFF SURGEON 10/13/2023 ADDENDUM STATUS: COMPLETED please schedule at any at [employer]IC[facility], SAL, [facility] within 30 days for re-evaluation for possible right hip arthroplasty. /aneesh FIGUEROA MD STAFF SURGEON Signed: 10/13/2023 22:21 Receipt Acknowledged By: 10/14/2023 12:06 /MARIUSZ Evans MSA [facility] Oct 13, 2023 10:20 PM ADDENDUM: LOCAL TITLE: Addendum STANDARD TITLE: ADDENDUM DATE OF NOTE: OCT 13, 2023@22:20:10 ENTRY DATE: OCT 13, 2023@22:20:11 AUTHOR: PATITO FIGUEROA COSIGNER: URGENCY: STATUS: COMPLETED please schedule at any at [employer]RIC[facility], SAL, [facility] within [...] to his falls. He was referred to ROOM SERVICE FOOD SERVER at last visit, where eval showed mild [...] SNV QOW for medication set-up, has a NAIL MAKER/HM on MWF for 5.5 hours/week for personal cares and homemaking services, and is pending home PT enrollment. He has a court appointed guardian as below. Name of guardian: [facility] [facility], Flor Diaz, Elaina Verdugo and/or Jj Lassiter Contact information for guardian: [address] [facility] [address] Office: [phone] Past medical history/Active Problems: Active problems - Computerized Problem List is the source for the followin. Essential hypertension (SNOMED CT 06898328) 2. Major depressive disorder (SNOMED CT 977866277) 3. Generalized anxiety disorder (SNOMED CT 02098275) 4. Primary Obesity 5. Bronchiectasis (SNOMED CT 78449032) 6. Gastroesophageal reflux disease (SNOMED CT 440991112) 7. Bariatric Surgery Status 8. Cataracts (SNOMED CT 82078722) 9. Hypermetropia/Hyperopia 10. Astigmatism, Unspec 11. Presbyopia 12. Atrial fibrillation (SNOMED CT 35433906) 13. Varicose veins of lower extremity 14. Compulsive gambling 15. Bipolar disorder (SNOMED CT 80926391) 16. Mild cognitive disorder 17. Type 2 [...] hands, and also reportedly of tongue per ROOM SERVICE FOOD SERVER exam), shuffling gait, increasing difficulty with turns/stopping/starting, [...] CAP/TAB BY MOUTH TWICE A DAY WITH Expr:06-01-24 MEALS 8) MULTIVITAMIN CAP/TAB Qty: 100 for [...] you! Tuan Yeung MD Internal Medicine/Dermatology PGY-3 --9427 /es/ TUAN YEUNG MD RESIDENT PHYSICIAN Signed: 10/09/2023 15:12 Receipt Acknowledged By: 10/09/2023 16:09 /es/ LORETA ORTEGA DO STAFF PSYCHIATRIST 10/09/2023 ADDENDUM STATUS: COMPLETED FYI to orthopedics Dr. Figueroa: patient was to be scheduled for MARK, appears to have been lost to f/u. Greatly appreciate any help your office can provide. Tuan Yeung MD Internal Medicine/Dermatology PGY-3 --3218 /pablo/ TUAN YUENG MD RESIDENT PHYSICIAN Signed: 10/09/2023 15:17 Receipt Acknowledged By: 10/13/2023 22:17 /es/ PATITO FIGUEROA MD STAFF SURGEON PATITO FIGUEROA [facility] Oct 09, 2023 03:13 PM ADDENDUM: LOCAL [...] 22:17 /es/ PATITO FIGUEROA MD STAFF SURGEON --- Original Document --- 10/09/23 MEDICINE CLINIC NOTE: JUAN SIRIA DONNA is a 77 year old MALE [...] to his falls. He was referred to ROOM SERVICE FOOD SERVER at last visit, where eval showed mild [...] SNV QOW for medication set-up, has a NAIL MAKER/HM on MWF for 5.5 hours/week for personal cares and homemaking services, and is pending home PT enrollment. He has a court appointed guardian as below. Name of guardian: [facility], Flor Diaz, Elaina Verdugo and/or Jj Lassiter Contact information for guardian: [address] [place] [address] Office: [phone] Past medical history/Active Problems: Active problems - Computerized Problem List is the source for the followin. Essential hypertension (SNOMED CT 36300564) 2. Major depressive disorder (SNOMED CT 029864195) 3. Generalized anxiety disorder (SNOMED CT 73522438) 4. Primary Obesity 5. Bronchiectasis (SNOMED CT 65062551) 6. Gastroesophageal reflux disease (SNOMED CT 079355514) 7. Bariatric Surgery Status 8. Cataracts (SNOMED CT 96250378) 9. Hypermetropia/Hyperopia 10. Astigmatism, Unspec 11. Presbyopia 12. Atrial fibrillation (SNOMED CT 02207613) 13. Varicose veins of lower extremity 14. Compulsive gambling 15. Bipolar disorder (SNOMED CT 70886841) 16. Mild cognitive disorder 17. Type 2 [...] hands, and also reportedly of tongue per ROOM SERVICE FOOD SERVER exam), shuffling gait, increasing difficulty with turns/stopping/starting, [...] # OA Affected: hips, knees. Following with CT ortho, planning for R hip MARK. - [...] ORTEGA DO STAFF PSYCHIATRIST TUAN YEUNG [facility] Oct 09, 2023 03:10 PM ADDENDUM: LOCAL [...] to his falls. He was referred to ROOM SERVICE FOOD SERVER at last visit, where eval showed mild [...] SNV QOW for medication set-up, has a NAIL MAKER/HM on MWF for 5.5 hours/week for personal cares and homemaking services, and is pending home PT enrollment. He has a court appointed guardian as below. Name of guardian: [facility] Ivette Simms, Flor Diaz, Elaina Verdugo and/or Jj Lassiter Contact information for guardian: [address] [place] [address] Office: [phone] Past medical history/Active Problems: Active problems - Computerized Problem List is the source for the followin. Essential hypertension (SNOMED CT 68517333) 2. Major depressive disorder (SNOMED CT 793772637) 3. Generalized anxiety disorder (SNOMED CT 68094967) 4. Primary Obesity 5. Bronchiectasis (SNOMED CT 48846794) 6. Gastroesophageal reflux disease (SNOMED CT 305962036) 7. Bariatric Surgery Status 8. Cataracts (SNOMED CT 47000151) 9. Hypermetropia/Hyperopia 10. Astigmatism, Unspec 11. Presbyopia 12. Atrial fibrillation (SNOMED CT 30836638) 13. Varicose veins of lower extremity 14. Compulsive gambling 15. Bipolar disorder (SNOMED CT 87548158) 16. Mild cognitive disorder 17. Type 2 [...] hands, and also reportedly of tongue per ROOM SERVICE FOOD SERVER exam), shuffling gait, increasing difficulty with turns/stopping/starting, [...] # OA Affected: hips, knees. Following with CT ortho, planning for R hip MARK. - [...] SIGNATURE * PATITO FIGUEROA TUAN YEUNG [facility] Oct 09, 2023 10:50 AM INTERNAL MEDICINE [...] Physician Signed: 10/09/2023 13:04 LA OVIEDO [facility] Oct 09, 2023 09:45 AM INTERNAL MEDICINE [...] 10/09/23 09:47 /pablo/ JYOTSNA MEIER LPN STAFF HOT STRIP MILL SUPERVISOR Signed: 10/09/2023 09:47 JYOTSNA MEIER [facility] Oct 09, 2023 07:29 AM INTERNAL MEDICINE [...] to his falls. He was referred to ROOM SERVICE FOOD SERVER at last visit, where eval showed mild [...] SNV QOW for medication set-up, has a NAIL MAKER/HM on MWF for 5.5 hours/week for personal cares and homemaking services, and is pending home PT enrollment. He has a court appointed guardian as below. Name of guardian: [facility], Flor Diaz, Elaina Verdugo and/or Jj Lassiter Contact information for guardian: [address] [place], [place] [address] Office: [phone] Past medical history/Active Problems: Active problems - Computerized Problem List is the source for the followin. Essential hypertension (SNOMED CT 14641499) 2. Major depressive disorder (SNOMED CT 625274780) 3. Generalized anxiety disorder (SNOMED CT 95827076) 4. Primary Obesity 5. Bronchiectasis (SNOMED CT 18487740) 6. Gastroesophageal reflux disease (SNOMED CT 975208030) 7. Bariatric Surgery Status 8. Cataracts (SNOMED CT 55438926) 9. Hypermetropia/Hyperopia 10. Astigmatism, Unspec 11. Presbyopia 12. Atrial fibrillation (SNOMED CT 00891696) 13. Varicose veins of lower extremity 14. Compulsive gambling 15. Bipolar disorder (SNOMED CT 56011816) 16. Mild cognitive disorder 17. Type 2 [...] hands, and also reportedly of tongue per ROOM SERVICE FOOD SERVER exam), shuffling gait, increasing difficulty with turns/stopping/starting, [...] # OA Affected: hips, knees. Following with CT ortho, planning for R hip MARK. - [...] STATUS: COMPLETED please schedule at any at [employer] [facility], [place], [facility] within [...] SIGNATURE * RACHEL WATSON CONNOR R [facility]
--- OUTSIDE RECORDS SUMMARY | 2024-09-05 10:21 | XMS_ITS | Encounter Summary ---
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 Date/Time Encounter Type Encounter Description Reason Provider Source Mar 16, 2024 09:00 AM OFFICE O/P EST MOD 30 MIN PRIMARY CARE/MEDICINE ICD-10-CM M25.552 Pain in left hip DIANNA RIBEIRO Encounter Template Text not used by [place] Assessments - Encounter Diagnoses This section includes the primary and secondary diagnoses documented for the Encounter. Date/Time Primary/Secondary Diagnosis Diagnosis Name Provider Source Mar 16, 2024 12:22 PM PRIMARY Pain in left hip DUONG FIELDS [facility] Mar 16, 2024 12:22 PM SECONDARY Bilateral primary osteoarthritis of hip DUONG FIELDS [facility] Mar 16, 2024 12:22 PM SECONDARY Fall same lev from slip/trip w/o strike against object, init DUONG FIELDS [facility] Mar 16, 2024 12:22 PM SECONDARY Pain in right [facility] Plan of Treatment: Future Appointments (+ 6 months) and Future Tests (+/- 45 days) The Plan of Treatment section includes future care activities for the patient [facility] [place] [facility] [place] This section includes future appointments and future [...] 2024 07:00 AM AMBULATORY - NONE [facility] Mar 31, 2024 07:00 AM AMBULATORY - NONE [facility] Apr 20, 2024 08:00 AM [place] [place] [facility] Apr 20, 2024 09:30 AM [place] [facility] Apr 22, 2024 09:00 AM [place] [facility] Apr 22, 2024 10:00 AM [facility] Apr 29, 2024 10:30 AM [place] [facility] May 13, 2024 12:00 PM [place] [facility] May 13, 2024 01:00 PM [place] [facility] May 20, 2024 09:45 AM [place]ONE [place] [facility] May 26, 2024 09:15 AM [place] [facility] Jun 03, 2024 10:00 AM [facility] Jun 04, 2024 09:30 AM [place] [facility] Jun 05, 2024 01:30 PM [place] [facility] Jun 12, 2024 07:30 AM [place] [facility] Jun 12, 2024 08:30 AM [facility] Jun 23, 2024 10:15 AM [facility] [place] [facility] Jul 06, 2024 08:30 AM AMBULATORY - NONE [facility] Jul 08, 2024 11:07 AM [facility] Jul 13, 2024 10:00 AM AM[facility]UL[facility]ORY - [facility]IC[facility] Active, Pending, and Scheduled Orders [...] Order CARDIAC EC HO OUTPT-ALL SITES Cons News Producer's Choice [facility] Lab Results: +/- [...] analytical performance characteristics have been determined by [facility] [place], [place]. It has not been cleared or approved by the U.S. Food and Drug Administration. This assay has been validated pursuant to the CLIA regulations and is used for clinical purposes. Test Performed by [facility], [facility], [address] [place] [address] Devante Meyer M.D., Ph.D., Director of Laboratories , CLIA [id number] Ordering Provider: INDERJIT MORGAN Report Released Date/Time: Mar 05, 2024 09:40 AM Reporting Lab: [place] [address] Performing Lab: [address] VITAMIN B-1,BLOOD 125 nmol/L 78-185 Mar 05, 2024 09:55 AM [facility] VITAMIN A Specimen Type: SERUM Comment: Vitamin supplementation within 24 hours prior to blood draw may affect the accuracy of the results. This test was developed and its analytical performance characteristics have been determined by [facility] [place]. It has not been cleared or approved by the U.S. Food and Drug Administration. This assay has been validated pursuant to the CLIA regulations and is used for clinical purposes. Test Performed by [facility] [place], [address] [place] [address] Devante Meyer M.D., Ph.D., Director of Laboratories , CLIA [id number] Ordering Provider: INDERJIT MORGAN Report Released Date/Time: Mar 05, 2024 09:40 AM Reporting Lab: [place] [address] Performing Lab: [address] VITAMIN A 54 ug/dL 38-98 Mar 05, 2024 09:55 AM [facility] ZINC Specimen Type: SERUM Comment: This test was developed and its analytical performance characteristics have been determined by [facility] [place]. It has not been cleared or approved by the U.S. Food and Drug Administration. This assay has been validated pursuant to the CLIA regulations and is used for clinical purposes. Test Performed by [facility] [place], [address] [place] [address] Devante Meyer M.D., Ph.D., Director of Laboratories , CLIA [id number] Ordering Provider: INDERJIT MORGAN Report Released Date/Time: Mar 05, 2024 09:40 AM Reporting Lab: [place] [address] Performing Lab: [facility] [address] [facility] ZINC 96 ug/dL 60-130 Mar 05, 2024 09:55 AM [facility] COPPER Specimen Type: PLASMA Comment: This test was developed and its analytical performance characteristics have been determined by [facility] [place]. It has not been cleared or approved by the U.S. Food and Drug Administration. This assay has been validated pursuant to the CLIA regulations and is used for clinical purposes. Test Performed by [facility], [facility], [address] [place] [address] Devante Meyer M.D., Ph.D., Director of Laboratories , CLIA [id number] Ordering Provider: INDERJIT MORGAN Report Released Date/Time: Mar 05, 2024 09:40 AM Reporting Lab: [facility] [address] Performing Lab: [address] COPPER 99 ug/dL 70-175 Mar 05, 2024 09:55 AM [facility] TSH W/REFLEX TO FREE T4 Specimen Type: PLASMA No comment entered. Ordering Provider: INDERJIT MORGAN Report Released Date/Time: Mar 05, 2024 09:40 AM Reporting Lab: [facility] [address] Performing Lab: [facility] [address] TSH 2.01 u[IU]/mL 0.35-4.94 Mar 05, 2024 09:55 AM [facility] FERRITIN Specimen Type: SERUM No comment entered. Ordering Provider: INDERJIT MORGAN Report Released Date/Time: Mar 05, 2024 09:40 AM Reporting Lab: [facility] [address] Performing Lab: [address] FERRITIN 191.6 ng/mL 21.8-274.7 Mar 05, 2024 09:55 AM [facility] PRE-ALBUMIN Specimen Type: SERUM No comment entered. Ordering Provider: INDERJIT MORGAN Report Released Date/Time: Mar 05, 2024 09:40 AM Reporting Lab: [facility] [address] Performing Lab: [facility] [address] PRE-ALBUMIN 19.9 mg/dL 14.0-45.0 Mar 05, 2024 09:55 AM [facility] B 12 Specimen Type: PLASMA No comment entered. Ordering Provider: INDERJIT MORGAN Report Released Date/Time: Mar 05, 2024 09:40 AM Reporting Lab: [facility] [address] Performing Lab: [facility] [address] B 12 864 pg/mL H 213-816 Mar 05, 2024 09:55 AM [facility] LIPID PANEL,NON-FASTING Specimen Type: PLASMA No comment entered. Ordering Provider: INDERJIT MROGAN Report Released Date/Time: Mar 05, 2024 09:40 AM Reporting Lab: [facility] [address] Performing Lab: [facility] [address] CHOLESTEROL 111 mg/dL <199 .HDL 45 mg/dL >40 LDL CALCULATION 54 mg/dL <99 VLDL CALCULATION 12 mg/dL <29 NON HDL CHOLESTEROL 66 mg/dL <129 TRIG(NON FASTING) 60 mg/dL <149 Mar 05, 2024 09:55 AM [facility] FOLATE Specimen Type: SERUM No comment entered. Ordering Provider: INDERJIT MORGAN Report Released Date/Time: Mar 05, 2024 09:40 AM Reporting Lab: [facility] [address] Performing Lab: [facility] [address] FOLATE 14.5 ng/mL >7.0 Mar 05, 2024 09:55 AM [facility] VIT D 25-[place],TOTAL Specimen Type: SERUM No comment entered. Ordering Provider: INDERJIT MORGAN Report Released Date/Time: Mar 05, 2024 09:40 AM Reporting Lab: [facility] [address] Performing Lab: [facility] [address] VIT D 25-[place],TOTAL 71 ng/mL H 12-50 Mar 05, 2024 09:55 AM [facility] COMPREHENSIVE METABOLIC PANEL+MG Specimen Type: PLASMA No comment entered. Ordering Provider: INDERJIT MORGAN Report Released Date/Time: Mar 05, 2024 09:40 AM Reporting Lab: [facility] [address] Performing Lab: [facility] [address] CREATININE 1.1 mg/dL 0.7-1.2 UREA NITROGEN 19 [...] Mar 05, 2024 09:40 AM Reporting Lab: [facility] [address] Performing Lab: [facility] [address] CALCIUM 9.6 mg/dL 8.4-10.2 Mar 05, 2024 09:55 AM [facility] CBC & DIFF Specimen Type: BLOOD Comment: Automated Differential Performed Ordering Provider: INDERJIT MORGAN Report Released Date/Time: Mar 05, 2024 09:40 AM Reporting Lab: [facility] [address] Performing Lab: [facility] [address] WBC 6.85 10*3/uL 4.0-11.0 RBC 4.20 10*6/uL [...] 10*3/uL 0-0.1 Mar 05, 2024 09:55 AM [facility] MAGNESIUM Specimen Type: PLASMA No comment entered. Ordering Provider: INDERJIT MORGAN Report Released Date/Time: Mar 05, 2024 09:40 AM Reporting Lab: [facility] [address] Performing Lab: [facility] [address] MAGNESIUM 1.4 mg/dL L 1.6-2.6 Mar 05, 2024 09:55 AM [facility] IRON GROUP Specimen Type: SERUM No comment entered. Ordering Provider: INDERJIT MORGAN Report Released Date/Time: Mar 05, 2024 09:40 AM Reporting Lab: [facility] [address] Performing Lab: [facility] [address] IRON 59 ug/dL L 65-175 TIBC,CALCULATE D 258 ug/dL 250-425 FERRITIN 191.6 ng/mL 21.8-274.7 IRON SATURATION 23 20-50 TRANSFERRIN 206 mg/dL 163-382 Mar 05, 2024 09:55 AM [facility] PTH-N-TACT Specimen Type: SERUM No comment entered. Ordering Provider: INDERJIT MORGAN Report Released Date/Time: Mar 05, 2024 09:40 AM Reporting Lab: [facility] [address] Performing Lab: [facility] [address] PTH-N-TACT 26.5 pg/mL 8.7-77.1 Mar 05, 2024 09:54 AM [facility] VITAMIN A Specimen Type: SERUM Comment: Vitamin supplementation within 24 hours prior to blood draw may affect the accuracy of the results. This test was developed and its analytical performance characteristics have been determined by [facility] [place], [place]. It has not been cleared or approved by the U.S. Food and Drug Administration. This assay has been validated pursuant to the CLIA regulations and is used for clinical purposes. Test Performed by [facility], [facility], [address] [place] [address] Devante Meyer M.D., Ph.D., Director of Laboratories , CLIA [id number] Ordering Provider: INDERJIT MORGAN Report Released Date/Time: Mar 05, 2024 09:40 AM Reporting Lab: [facility] [address] Performing Lab: [address] VITAMIN A 54 ug/dL 38-98 Mar [...] Nov 07, 2023 10:56 AM Reporting Lab: [facility] [address] Performing Lab: [facility] [address] HEMOGLOBIN A1C 6.6 H 4.0-6.0 Vital Signs: All taken on the encounter date This section contains inpatient and outpatient Vital Signs collected on the date of the Encounter. Date/Time Temperature Pulse Blood Pressure Respiratory Rate SP02 Pain Height Weight Body Mass Index Source Mar 16, 2024 09:03 AM 97.8 71 132/76 16 98 9 156.8 24 [facility] Social History: Smoking Status (Most current) and Tobacco Use (All prior to encounter date) This section includes the most current, and the historical, smoking and tobacco- related health factors from the [facility] where the Encounter took place. Current Smoking [...] LEFT 2 VIEWS W /PELVIS: GIO THOMPSON [id number] -1945 M Exm Date: MAR 16, 2024@10:09 Req Phys: DUONG FIELDS Pat Loc: [facility]SP APACT A RES 05 WH 4F (Req' Img Loc: MAIN X-RAY Service: [place] [address] (Case [id number] COMPLETE) HIP LEFT 2 VIEWS W/PELVIS (RAD Detailed) CPT:46661 Proc Modifiers : LEFT Reason for Study: [...] 16, 2024 Date Verified: MAR 16, 2024 Wick Tender E-Sig: Report: HIP LEFT 2 VIEWS W/PELVIS HISTORY: mechanical fall 3 days ago COMPARISON: Left hip series 08/28/2022 TECHNIQUE: AP view of the pelvis, and AP and frog-leg views of the left hip, submitted to the [place] National Teleradiology Program (NTP) for interpretation. FINDINGS: [...] hip joint OA. READING PHYSICIAN: Jere Johnson -[id number] 03/16/2024 14:24 CDT [facility] National Teleradiology Program [phone] (For Medical Practitioner Use Only) Attention Patients / Veterans: If you have questions or concerns about these test results, please contact your ordering provider or primary care team. Primary Interpreting Staff: RADIOLOGY,OUTSIDE SERVICE, Staff Physician / RADIOLOGY,OUTSIDE SERVICE [facility] Encounter Notes: All associated encounter notes This [...] occurred at his independent living facility in [place] where he resides. Did not seek medical [...] for the followin. Essential hypertension (SNOMED CT 09951215) 2. Major depressive disorder (SNOMED CT 195535461) 3. Generalized anxiety disorder (SNOMED CT 51464419) 4. Primary Obesity 5. Bronchiectasis (SNOMED CT 91794687) 6. Gastroesophageal reflux disease (SNOMED CT 863514633) 7. Bariatric Surgery Status 8. Cataracts (SNOMED CT 91852636) 9. Hypermetropia/Hyperopia 10. Astigmatism, Unspec 11. Presbyopia 12. Atrial fibrillation (SNOMED CT 37813115) 13. Varicose veins of lower extremity 14. Compulsive gambling 15. Bipolar disorder (SNOMED CT 53669816) 16. Mild cognitive disorder 17. Type 2 [...] left inferiorly. Vertebral body heights are maintained. Byiu-dv-nfcasurm diffuse disc space narrowing. 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
--- OUTSIDE RECORDS SUMMARY | 2024-09-05 10:21 | XMS_ITS ---
[place] MED NUTRITION INDIV SUBSEQ [facility] Encounter Summary Created on: September 05, 2024 JUAN THOMPSON : 1945 Sex: Male Author Name [facility] [place] [facility] [place] Address [address] [place] [address] Care Team Providers Care Stripper Black And White Name Role Phone MARIUSZ PHILLIPS Primary Care [...] PART B Sep 26, 2012 PART B [id number] [facility] [phone] JUAN THOMPSON JR PATIENT MEDICARE (WNR) MEDICARE (M) PART A Sep 26, 2012 PART A [id number] [phone] JUAN THOMPSON JR PATIENT Selected Encounter This section includes the information on record at [place] for the Encounter. Date/Time Encounter Type Encounter Description Reason Provider Source Aug 14, 2024 03:00 PM MED NUTRITION INDIV SUBSEQ TELEPHONE/ANCILLAR Y ICD-10-CM R63.4 Abnormal weight loss CARLY GANDARA [facility] Encounter Template Text not used by [place] Assessments - Encounter Diagnoses This section includes the primary and secondary diagnoses documented for the Encounter. Date/Time Primary/Secondary Diagnosis Diagnosis Name Provider Source Aug 14, 2024 03:00 PM PRIMARY Abnormal weight loss SAGE GANDARA A [facility] Aug 14, 2024 03:00 PM SECONDARY Dietary counseling and surveillance SAGE GANDARA [facility] Plan of Treatment: Future Appointments (+ 6 months) and Future Tests (+/- 45 days) The Plan of Treatment section includes future care activities for the patient [facility] [place] [facility] This section includes future appointments and future orders which are active, pending or scheduled. Future Appointments This section includes appointments that were scheduled to occur 6 months from the date of the Encounter, up to a maximum of 20 appointments. The data comes from all [place] treatment [facility]. Appointment Date/Time Appointment Type Appointme nt Facility Name Aug 18, 2024 10:30 AM [facility] Aug 31, 2024 09:00 AM AMBULATORY - PS[place]CHIATRY [place] [facility] Sep 03, 2024 08:00 AM AMBULATORY - PSYCHIATRY [place] [facility] Sep 17, 2024 08:00 AM [facility] Sep 17, 2024 09:00 AM [facility] Sep 18, 2024 01:00 PM AMBUL[place] [facility] Sep 24, 2024 07:00 AM [facility] Oct 02, 2024 03:00 PM [facility] Oct 07, 2024 09:00 AM [facility] Oct 19, 2024 09:30 AM [facility] Active, Pending, and Scheduled Orders This section includes a listing of several types of active, pending, and scheduled orders, including clinic medications orders, diagnostic test orders, procedure orders and consult orders; where the start date of the order is 45 days before the date of the Encounter or 45 days after the date of theEncounter. The data comes from all [place] treatment [facility]. Test Date/Time Test Type Test Details Facility Name Aug 26, 2024 07:52 AM Consult Order [facility] Cons Application Development Director's Choice [facility] Social History: Smoking Status (Most current) and Tobacco Use (All prior to encounter date) This section includes the most current, and the historical, smoking and tobacco- related health factors from the [facility] where the Encounter took place. Current Smoking Status This section includes the most current smoking, or tobacco-related health factor, from the [place] facility where the Encounter took place. Date/Time Current Smoking Status Comment Facil ity Aug 21, 2023 10:30 AM VA-TOBACCO QUIT 15 YRS OR MORE [facility] Tobacco Use History This [...] 7Y OR GREATE R [facility] Encounter Notes: All associated encounter notes This section contains the clinical notes associated to the Encounter. Date/Time Encounter Note(s) Provider Source Aug 14, 2024 03:07 PM NUTRITION NOTE: LOCAL TITLE: NUTRITION OUTPT PROGRESS NOTE STANDARD TITLE: NUTRITION NOTE DATE OF NOTE: AUG 14, 2024@15:07 ENTRY DATE: AUG 14, 2024@15:07:48 AUTHOR: CARLSTROM,TRUE A EXP COSIGNER: URGENCY: STATUS: COMPLETED Visit Information: Delivery Method: phone Visit Type: follow-up Reason for visit: unintentional wt. loss Time spent with [place]: 30 min ASSESSMENT: Appetite isn't always great. Mentions food doesn't always excite him. Has been taking Ensure for protein for the last few months. [facility] so he doesn't have to [facility] for it. Does want to maintain his current wt. He has noticed a difference with his muscle mass since starting the Ensure. Does get Meals on Wheels delivered for lunch. May have soup, cheese or egg sandwich for his other meals; relies on quick things that he can prepare. May have some snacks. Drinks 2-3 pots of coffee each day, some water and juice. Drinks 2-3 larger cups of milk/day. Drinking 1 carton of Ensure/day (350 kcals). Has a director social service who will take to store 1x/week and says this is working for him to supplement his delivered meals that he receives. Height: 68 in [172.7 cm] (06/23/2024 09:54) Weight: 169 lb. stated ( Measurement DT WEIGHT LB(KG)[BMI] 07/13/2024 09:56 175(79.38)[27] 06/23/2024 09:54 176.8(80.20)[27] 06/12/2024 08:50 173.2(78.56)[26] Body Mass Index: 26.7 Weight change: -30 lb. from September-Mar of this year, has since regained 20 lb. from Mar-May (stopped Ozempic in Feb) Weight goal: 170 lb. stated Malnutrition Assessment (per AND/ASPEN Consensus Statement, 2012): Dietitian does not suspect malnutrition at this time, therefore, physical assessment not conducted Estimated Nutrient Intake: calories: 4974-6420/day estimate on average pt shares that he doesn't feel as though he consistently gets 2000 kcals/day Comparative Standards: based on stated wt. 77 kg 1925 kcal/day 25 kcal/kg DIAGNOSIS: ACTIVE, IMPROVING Problem: inadequate oral intake Etiology: food and nutrition related knowledge deficit, decreased appetite Signs/Symptoms: eating <3 meals/day DISCONTINUED Problem: excessive sodium intake Etiology: undesirable food choices, reliance on quick processed foods Signs/Symptoms: sodium intake > daily recommendations INTERVENTION: Nutrition Prescription: balanced eating Nutrition Education Content: Content Related Nutrition Education: -reviewed ways to add calories, encouraged small/frequent meals -suggested food first approach and reviewed ideas for foods he could include for calories to replace Ensure *will send list in the mail of ideas for high calorie/high protein snacks that he could include in place of Ensure with goal to wean from Goal(s): eat at least 3x/day, focus on nutrient dense, high calorie foods Patient Education of Treatment Plan: Patient indicates readiness to learn, verbalizes understanding, agreement and satisfaction with the treatment plan. Denies further questions. MONITORING & EVALUATION: Food and/or Nutrient Intake: Number of meals estimated in 24 hours: 3 meals/day with intake >1900 kcal --some progress made, ongoing Estimated sodium intake: <2000 mg/day --some progress made Follow Up: Follow up appointment will be scheduled: 10/02 at 3pm phone /pablo/ TRUE GANDARA MS, RD, LD Registered Dietitian, PACT Signed: 08/14/2024 15:53 TRUE GANDARA [facility]
--- OUTSIDE RECORDS SUMMARY | 2024-09-05 10:21 | XMS_ITS | Encounter Summary ---
Author Name [facility] [place] [facility] [place] Address [address] [place] [address] Care Team Providers Care Compound Machine Operator Name Role Phone SONIA PHILLIPS [...] PART B Sep 26, 2012 PART B [id number] [facility] [phone] JUAN THOMPSON JR PATIENT MEDICARE (WNR) MEDICARE (M) PART A Sep 26, 2012 PART A [id number] JUAN THOMPSON JR PATIENT Selected Encounter This section includes the information on record at [place] for the Encounter. Date/Time Encounter Type Encounter Description Reason Provider Source May 26, 2024 09:15 AM OFFICE O/P EST HI 40 MIN ONCOLOGY/TUMOR ICD-10-CM R93.89 Abnormal findings on dx imaging of oth body structures TALIA MICHELLE [facility] Encounter Template Text not used by [place] Assessments - Encounter Diagnoses This section includes the primary and secondary diagnoses documented for the Encounter. Date/Time Primary/Secondary Diagnosis Diagnosis Name Provider Source May 26, 2024 10:24 AM PRIMARY Abnormal findings on dx imaging of oth body structures TALIA MICHELLE [facility] Plan of Treatment: Future Appointments (+ 6 months) and Future Tests (+/- 45 days) The Plan of Treatment section includes future care activities for the patient from all [place] [facility]. This section includes future appointments and future orders which are active, pending or scheduled. Future Appointments This section includes appointments that were scheduled to occur 6 months from the date of the Encounter, up to a maximum of 20 appointments. The data comes from all [place] treatment facilities. Appointment Date/Time Appointment Type Appointme nt Facility Name Jun 03, 2024 10:00 AM AM[place]ORY [place]IC[place] [facility] Jun 04, 2024 09:30 AM AMBULATORY [place] [facility] Jun 05, 2024 01:30 PM AMBULATORY - [place]IC[place] [facility] Jun 12, 2024 07:30 AM AM[place]ORY - [place] [facility] Jun 12, 2024 08:30 AM AM[place]ULATORY - [place]IC[place] [facility] Jun 23, 2024 10:15 AM AMBULATORY - [place]IC[place] [facility] Jul 06, 2024 08:30 AM AMBULATORY - NONE [place] [facility] Jul 08, 2024 11:07 AM AM[place]ORY [place]ONE [place] [facility] Jul 13, 2024 10:00 AM AM[place]ULATORY [place]IC[place] [facility] Jul 16, 2024 07:30 AM [facility]ORY [place]IC[place] [facility] Jul 16, 2024 08:30 AM AM[facility]ATORY - [place]IC[place] [facility] [facility] Jul 16, 2024 09:00 AM AMBULATORY [place] [facility] Jul 16, 2024 09:30 AM AMBUL[facility]ORY [place] [facility] Jul 23, 2024 09:00 AM AMBULATORY [place]RY [place] [facility] Jul 28, 2024 09:00 AM [facility]ORY [place]ONE [place] [facility] Aug 14, 2024 03:00 PM [facility]ONE [place] [facility] Aug 18, 2024 10:30 AM AMBUL[facility]ORY - NONE [facility] Aug 31, 2024 09:00 AM [facility] Sep 03, 2024 08:00 AM [facility] Sep 17, 2024 08:00 AM [facility] Active, Pending, and Scheduled Orders This section includes a listing of several types of active, pending, and scheduled orders, including clinic medications orders, diagnostic test orders, procedure orders and consult orders; where the start date of the order is 45 days before the date of the Encounter or 45 days after the date of theEncounter. The data comes from all [place] treatment facilities. Test Date/Time Test Type Test Details Facility Name Jun 19, 2024 04:32 PM Consult Order COMMUNITY CARE-NUCLEAR MEDICINE Cons Art Consultant's Choice [facility] Lab Results: [...] May 26, 2024 09:45 AM Reporting Lab: [facility] [phone] Performing Lab: [facility] [address] PHOSPHORUS 3.4 mg/dL 2.3-4.3 Jun 12, 2024 07:22 AM [facility] RETICS Specimen Type: BLOOD Comment: Automated Differential Performed Ordering Provider: JAVIER MICHELLE Report Released Date/Time: May 26, 2024 09:53 AM Reporting Lab: [facility] [id number] Performing Lab: [facility] [address] ABS RETIC 0.0429 0.0300-0.1 000 .RETICULOCYTE 1.06 0.6-2.0 IMMATURE RETIC 5.9 1.0-14.0 .RETICULOCYTE HE 30.5 pg 28.2-36.6 Jun 12, 2024 07:22 AM [facility] COMPREHENSIVE METABOLIC PANEL+MG Specimen Type: PLASMA No comment entered. Ordering Provider: JAVIER MICHELLE Report Released Date/Time: May 26, 2024 09:45 AM Reporting Lab: [facility] [address] Performing Lab: [facility] [address] CREATININE 1.0 mg/dL 0.7-1.2 UREA NITROGEN 22 [...] May 26, 2024 09:45 AM Reporting Lab: [facility] [address] Performing Lab: [facility] [address] WBC 6.4 4.0-11.0 RBC 4.05 L 4.60-6.20 [...] pg 28.2-36.6 Jun 03, 2024 11:17 AM [facility] URINALYSIS Specimen Type: URINE No comment entered. Ordering Provider: LYUBOV YEUNG Report Released Date/Time: Jun 03, 2024 10:39 AM Reporting Lab: [facility] [address] Performing Lab: [facility] [address] URINE COLOR YELLOW SPECIFIC GRAVITY 1.018 1.003-1.03 [...] 75 NEGATIVE May 20, 2024 09:39 AM [facility] FINGERSTICK GLUCOSE Specimen Type: BLOOD Comment: Save Result Ordering Provider: TANK PHILLIPS Report Released Date/Time: May 20, 2024 03:03 PM Reporting Lab: [facility] [address] Performing Lab: [facility] [address] FINGERSTICK GLUCOSE 148 mg/dL H 70-100 May 13, 2024 11:44 AM [facility] KAPPA/LAMBDA LC FREE,RATIO Specimen Type: SERUM Comment: [...] therapy of these disorders. Test Performed by [facility], [facility], [address] [place] [address] Devante Meyer M.D., Ph.D., Director of Laboratories , [place] [id number] Ordering Provider: RENUKA JOHNSON Report Released Date/Time: Apr 24, 2024 04:08 PM Reporting Lab: [facility] [address] Performing Lab: [address] .KAPPA LT CHAIN,FREE 27.3 mg/L H 3.3-19.4 .LAMBDA LC,FREE 15.8 mg/L 5.7-26.3 .KAPPA/LAMBDA, FREE 1.73 H 0.26-1.65 May 13, 2024 11:44 AM [facility] LD,TOTAL Specimen Type: PLASMA No comment entered. Ordering Provider: RENUKA JOHNSON Report Released Date/Time: Apr 24, 2024 04:08 PM Reporting Lab: [facility] [address] Performing Lab: [facility] [address] LD,TOTAL 141 U/L 125-220 May 13, 2024 11:44 AM [facility] URIC ACID Specimen Type: PLASMA No comment entered. Ordering Provider: RENUKA JOHNSON Report Released Date/Time: Apr 24, 2024 04:08 PM Reporting Lab: [facility] [address] Performing Lab: [facility] [address] URIC ACID 3.1 mg/dL L 3.7-7.7 May 13, 2024 11:44 AM [facility] FOLATE Specimen Type: SERUM No comment entered. Ordering Provider: RENUKA JOHNSON Report Released Date/Time: Apr 24, 2024 04:08 PM Reporting Lab: [facility] [address] Performing Lab: [facility] [address] FOLATE 14.6 ng/mL >7.0 May 13, 2024 11:44 AM [facility] B 12 Specimen Type: SERUM No comment entered. Ordering Provider: RENUKA JOHNSON Report Released Date/Time: Apr 24, 2024 04:08 PM Reporting Lab: [facility] [address] Performing Lab: [place] [phone] B 12 722 pg/mL 213-816 May 13, 2024 11:44 AM [facility] PHOSPHORUS Specimen Type: PLASMA No comment entered. Ordering Provider: RENUKA JOHNSON Report Released Date/Time: Apr 24, 2024 04:08 PM Reporting Lab: [facility] [address] Performing Lab: [facility] [address] PHOSPHORUS 3.3 mg/dL 2.3-4.3 May 13, 2024 11:44 AM [facility] BETA 2-MICROGLOBULIN Specimen Type: SERUM No comment entered. Ordering Provider: RENUKA JOHNSON Report Released Date/Time: Apr 24, 2024 04:08 PM Reporting Lab: [facility] [address] Performing Lab: [facility] [address] BETA 2-MICROGLOBULI N 3.36 mg/L H 0.97-2.64 May 13, 2024 11:44 AM [facility] PSA Specimen Type: SERUM No comment entered. Ordering Provider: ABBY MEANS Report Released Date/Time: May 12, 2024 08:28 PM Reporting Lab: [facility] [address] Performing Lab: [facility] [address] PSA 0.49 ng/mL <4.00 May 13, 2024 11:44 AM [facility] TOTAL IMMUNOGLOB (IGA,IGG,IGM) Specimen Type: PLASMA No comment entered. Ordering Provider: RENUKA JOHNSON Report Released Date/Time: Apr 24, 2024 04:08 PM Reporting Lab: [facility] [address] Performing Lab: [facility] [address] IGM 78.8 mg/dL 22.0-293.0 IGG 714.3 mg/dL 540.0-18 22 .0 IGA 123.8 mg/dL 63.0-645.0 May 13, 2024 11:44 AM [facility] IRON GROUP Specimen Type: SERUM No comment entered. Ordering Provider: RENUKA JOHNSON Report Released Date/Time: Apr 24, 2024 04:08 PM Reporting Lab: [facility] [address] Performing Lab: [facility] [address] IRON 101 ug/dL 65-175 TIBC,CALCULATE D 313 ug/dL 250-425 FERRITIN pending IRON SATURATION 32 20-50 TRANSFERRIN 250 mg/dL 163-382 May 13, 2024 11:44 AM [facility] TESTOSTERONE Specimen Type: SERUM No comment entered. Ordering Provider: ABBY MEANS Report Released Date/Time: May 12, 2024 08:30 PM Reporting Lab: [facility] [address] Performing Lab: [facility] [address] TESTOSTERONE 534 ng/dL 221-870 May 13, 2024 11:44 AM [facility] CBC & DIFF Specimen Type: BLOOD Comment: Automated Differential Performed Ordering Provider: RENUKA JOHNSON Report Released Date/Time: Apr 24, 2024 04:08 PM Reporting Lab: [facility] [address] Performing Lab: [facility] [address] WBC 8.3 4.0-11.0 RBC 4.04 L 4.60-6.20 [...] 0.0 0.0-0.1 May 13, 2024 11:44 AM [facility] COMPREHENSIVE METABOLIC PANEL+MG Specimen Type: PLASMA No comment entered. Ordering Provider: RENUKA JOHNSON Report Released Date/Time: Apr 24, 2024 04:08 PM Reporting Lab: [facility] [address] Performing Lab: [facility] [address] CREATININE 1.0 mg/dL 0.7-1.2 UREA NITROGEN 26 [...] 78 >60 May 13, 2024 11:44 AM [facility] PERIPHERAL SMEAR PATHOLOGIST REVIEW Specimen Type: BLOOD No comment entered. Ordering Provider: RENUKA JOHNSON Report Released Date/Time: May 13, 2024 01:51 PM Reporting Lab: [facility] [address] Performing Lab: [facility] [address] PERIPHERAL SMEAR PATHOLOGIST REVIEW SLIDES MADE Vital Signs: All taken on the encounter date This section contains inpatient and outpatient Vital Signs collected on the date of the Encounter. Date/Time Temperature Pulse Blood Pressure Respiratory Rate SP02 Pain Height Weight Body Mass Index Source May 26, 2024 09:22 AM 98.6 88 110/73 19 98 4 166.9 25 [facility] Social History: Smoking Status (Most current) and Tobacco Use (All prior to encounter date) This section includes the most current, and the historical, smoking and tobacco- related health factors from the [facility] [...] the Encounter. The data comes from all [place] treatment facilities. Date/Time Radiology Report Provider Source May 20, 2024 09:[address] BODY W/O CO NTRAST (P): JUAN THOMPSON [id number] -1945 M Exm Date: MAY 20, 2024@09:14 Req Phys: LYUBOV YEUNG Pat Loc: [facility] APACT L RES 03 WH 4F (Req' Img Loc: [facility] MED Service: [place] [address] (Case [id number] COMPLETE) SKULL-THIGH PET IMAGE W/CT (NM Detailed) CPT:28811 Reason for Study: eval for malignancy (Case [...] pager listed below: User placing orders pager: [phone] LAST CREATININE 1.0 (04/22/24) Report Status: Verified Date Reported: MAY 20, 2024 Date Verified: MAY 20, 2024 Spaghetti Machine Operator E-Sig:/ES/RUFUS GROVES MD, FACR, CCD Report: [...] Staff: RUFUS GROVES MD, FACR, STAFF RADIOLOGIST (Spaghetti Machine Operator) /BSF RUFUS GROVES [facility] Pathology Reports: +/- [...] the Encounter. The data comes from all [place] treatment facilities. Date/Time Pathology Report Provider Source Jun 16, 2024 12:06 PM LR SURGICAL PATHOLOGY REPORT: LOCAL TITLE: LR SURGICAL PATHOLOGY REPORT STANDARD TITLE: PATHOLOGY REPORT DATE OF NOTE: JUN 16, 2024@12:06:01 ENTRY DATE: JUN 16, 2024@12:06:01 AUTHOR: BRIELLE AMIN EXP COSIGNER: URGENCY: STATUS: COMPLETED $APHDR Reporting Lab: [facility] [CLIA# [id number]] [place] [address] - - - - - - - [...] in cassette B. Grossing performed by: DAVID, Hearing And Speech Assistant Entered by: DAVID, Hearing And Speech Assistant Grossing confirmed by: Brielle Amin, Hematopathologist This report includes the results of laboratory tests utilizing Analyte Specific Reagents or commercially available antibodies ([place] and Lambda CISH Probes). These tests have been developed, fully validated, and their optimal performance characteristics determined by the [facility]. Such tests have not [...] see also concurrent negative flow cytometry study ([id number]). Imaging studies concerning for possible lytic lesions [...] controls for CD3, CD20, CD34, CD61, CD138, [place] and lambda light chains, and pankeratin are [...] STAFF PATHOLOGIST, PATHOLOGY & LABORATORY [facility] Signed Jun 16, 2024@12:06 Performing Laboratory: Surgical Pathology Report Performed By: [facility] [CLIA# [id number]] [place] [address] $FTR - - - - - - - - - - - - - - - - - - - - - - - - - - - - - - - - - - - - - - - - (End of report) BRIELLE AMIN MD [facility] Date Jun 16, 2024 - - - - - - - - - - - - - - - - - - - - - - - - - - - - - - - - - - - - - - - - JUAN THOMPSON STANDARD FORM 515 ID:[id number] SEX:M :1945 AGE: 78 LOC:[id number] PCP: Sonia Phillips /pablo/ BRIELLE AMIN MD STAFF PATHOLOGIST, PATHOLOGY & LABORATORY [facility] Signed: 06/16/2024 12:06 BRIELLE AMIN [facility] Jun 16, 2024 12:02 PM LR SURGICAL PATHOLOGY REPORT: LOCAL TITLE: LR SURGICAL PATHOLOGY REPORT STANDARD TITLE: PATHOLOGY REPORT DATE OF NOTE: JUN 16, 2024@12:02:40 ENTRY DATE: JUN 16, 2024@12:02:40 AUTHOR: BRIELLE AMIN EXP COSIGNER: URGENCY: STATUS: COMPLETED $APHDR Reporting Lab: [facility] [CLIA# [id number]] [place] [address] - - - - - - - [...] morphologic correlation see bone marrow biopsy report [id number]. Summary: On CD45 vs. side scatter analysis, [...] STAFF PATHOLOGIST, PATHOLOGY & LABORATORY [facility] Signed Jun 16, 2024@12:02 Performing Laboratory: Surgical Pathology Report Performed By: [facility] [CLIA# [id number]] [place] [address] $FTR - - - - - - - - - - - - - - - - - - - - - - - - - - - - - - - - - - - - - - - - (End of report) BRIELLE AMIN MD [facility] Date Jun 16, 2024 - - - - - - - - - - - - - - - - - - - - - - - - - - - - - - - - - - - - - - - - JUAN THOMPSON JR STANDARD FORM 515 ID:[id number] SEX:M :1945 AGE: 78 LOC:[id number] PCP: Sonai Phillips /aneesh AMIN MD STAFF PATHOLOGIST, PATHOLOGY & LABORATORY [facility] Signed: 06/16/2024 12:02 BRIELLE AMIN [facility] May 14, 2024 10:47 AM LR SURGICAL PATHOLOGY REPORT: LOCAL TITLE: LR SURGICAL PATHOLOGY REPORT STANDARD TITLE: PATHOLOGY REPORT DATE OF NOTE: MAY 14, 2024@10:47:04 ENTRY DATE: MAY 14, 2024@10:47:04 AUTHOR: VIPUL DASILVAIGNER: URGENCY: STATUS: COMPLETED $APHDR Reporting Lab: [facility] [CLIA# [id number]] [place] [address] - - - - - - - [...] Performed By: [facility] [CLIA# [id number]] [place] [address] $FTR - - - - - - [...] - JUAN THOMPSON JR STANDARD FORM 515 ID:[id number] SEX:M :1945 AGE: 78 LOC:[id number] PCP: Sonia Phillips /pablo/ VIPUL DASILVA MD STAFF PATHOLOGIST Signed: 05/14/2024 10:47 VIPUL DASILVA [facility] Encounter Notes: All associated encounter notes This section contains the clinical notes associated to the Encounter. Date/Time Encounter Note(s) Provider Source May 26, 2024 10:27 AM ADDENDUM: LOCAL TITLE: Addendum STANDARD TITLE: ADDENDUM DATE OF NOTE: MAY 26, 2024@10:27:57 ENTRY DATE: MAY 26, 2024@10:27:58 AUTHOR: JAVIER MICHELLE COSIGNER: URGENCY: STATUS: COMPLETED In review of patient's chart, mortgage or loan underwriter identified that has a guardian (see neuropsych note 01/17/23). A BMBX has been recommended for . Web Marketing Manager saw today who appeared decisional. Requesting Hem/Onc public health social worker to evaluate further and see if guardian will need to be present (via phone or in person) to consent for BMBX for patient. /pablo/ JAVIER MICHELLE, MSN, SUPERVISOR PIG MACHINE SUPERVISOR PIG MACHINE Signed: 05/26/2024 10:31 Receipt Acknowledged By: 05/26/2024 13:09 /pablo/ TISHA KRUSE, [facility] Primary Care Electric Refrigerator Servicer --- Original Document --- 05/26/24 HEME/ONC CLINIC NOTE: Date of service: MAY 25, 2024 Last visit: 05/13/24 Reason for visit: f/u for lytic lesions Interval Hx: JUAN THOMPSON is a 78 year old MALE who presents to the [facility] ([facility] shares that his right and left leg [...] assessment and plan. /pablo/ JAVIER MICHELLE, MSN, SUPERVISOR PIG MACHINE SUPERVISOR PIG MACHINE Signed: 05/26/2024 10:24 Receipt Acknowledged By: * AWAITING SIGNATURE * RENUKA JOHNSON CHARITY M [facility] May 26, 2024 10:23 AM HEMATOLOGY AND [...] lytic lesions Interval Hx: JUAN BEVERLY JR THOMPSON is a 78 year old MALE who presents to the [facility] ([facility] [place] shares that his right and left leg [...] assessment and plan. /pablo/ JAVIER MICHELLE, MSN, SUPERVISOR PIG MACHINE SUPERVISOR PIG MACHINE Signed: 05/26/2024 10:24 Receipt Acknowledged By: 05/26/2024 17:08 /pablo/ Renuka Johnson MD HEM/ONC STAFF PHYSICIAN 05/26/2024 ADDENDUM STATUS: COMPLETED In review of patient's chart, mortgage or loan underwriter identified that has a guardian (see neuropsych note 01/17/23). A BMBX has been recommended for . Web Marketing Manager saw today who appeared decisional. Requesting Hem/Onc public health social worker to evaluate further and see if guardian will need to be present (via phone or in person) to consent for BMBX for patient. /aneesh MICHELLE, MSN, SUPERVISOR PIG MACHINE SUPERVISOR PIG MACHINE Signed: 05/26/2024 10:31 Receipt Acknowledged By: 05/26/2024 13:09 /es/ TISHA KRUSE, [facility] Primary Care Electric Refrigerator Servicer 06/18/2024 ADDENDUM STATUS: COMPLETED - - - [...] in cassette B. Grossing performed by: DAVID, Hearing And Speech Assistant Entered by: DAVID, Hearing And Speech Assistant Grossing confirmed by: Brielle Amin, Hematopathologist This report includes the results of laboratory tests utilizing Analyte Specific Reagents or commercially available antibodies ([place] and Lambda CISH Probes). These tests have been developed, fully validated, and their optimal performance characteristics determined by the [facility]. Such tests have not been [...] see also concurrent negative flow cytometry study ([id number]). Imaging studies concerning for possible lytic lesions [...] controls for CD3, CD20, CD34, CD61, CD138, [place] and lambda light chains, and pankeratin are [...] STAFF PATHOLOGIST, PATHOLOGY & LABORATORY [facility] Signed Jun 16, 2024@12:06 Performing Laboratory: Surgical Pathology Report Performed By: [facility] [CLIA# [id number]] [place] [address] - - - - - - - - - - - - - - - - - - - - - - - - - - - - - - - - - - - - - - - - (End of report) BRIELLE AMIN MD [facility] Date Jun 16, 2024 - - - - - - - - - - - - - - - - - - - - - - - - - - - - - - - - - - - - - - - - JUAN THOMPSON JR STANDARD FORM 515 ID:[id number] SEX:M :1945 AGE: 78 LOC:87230 PCP: Sonia Phillips Facility: [facility] /es/ JAVIER MICHELLE, MSN, SUPERVISOR PIG MACHINE SUPERVISOR PIG MACHINE Signed: 06/18/2024 19:19 JAVIER MICHELLE [facility] May 26, 2024 09:27 AM INTERNAL MEDICINE [...] with their provider today. /pablo/ EDMOND RANGEL LPN [employer]ILROOM PERSONNEL Signed: 05/26/2024 09:33 EDMOND RANGEL [facility]
--- OUTSIDE RECORDS SUMMARY | 2024-09-05 10:21 | XMS_ITS | Encounter Summary ---
Author Name [facility] [place] Address [address] [place] [address] Care Team Providers Care Sausage Smoker Name Role Phone SONIA PHILLIPS Primary Care [...] PART B Sep 26, 2012 PART B [id number] [facility] [phone] JUAN THOMPSON JR PATIENT MEDICARE (WNR) MEDICARE (M) PART A Sep 26, 2012 PART A [id number] [phone] JUAN THOMPSON JR PATIENT Selected Encounter This [...] activities [facility] the [facility] This section includes future appointments and future orders which are active, pending or scheduled. Future Appointments This section includes appointments that were scheduled to occur 6 months from the date of the Encounter, up to a maximum of 20 appointments. The data comes from all [place] treatment [facility]. Appointment Date/Time Appointment Type Appointme nt Facility Name Jul 06, 2024 08:30 AM [place] [facility] Jul 08, 2024 11:07 AM [place] [facility] Jul 13, 2024 10:00 AM [place] [facility] Jul 16, 2024 07:30 AM [place] [facility] Jul 16, 2024 08:30 AM [place] [facility] Jul 16, 2024 09:00 AM [place] [facility] Jul 16, 2024 09:30 AM [place] [facility] Jul 23, 2024 09:00 AM [place] [facility] Jul 28, 2024 09:00 AM [place] [facility] Aug 14, 2024 03:00 PM AMBUL[place]ORY [place]ONE [place] [facility] Aug 18, 2024 10:30 AM [place] [facility] Aug 31, 2024 09:00 AM [place] [facility] Sep 03, 2024 08:00 AM [place] [facility] Sep 17, 2024 08:00 AM [place] [facility] Sep 17, 2024 09:00 AM [place] [facility] Sep 18, 2024 01:00 PM [place] [facility] Sep 24, 2024 07:00 AM [place] [facility] Oct 02, 2024 03:00 PM AM[place]UL[place]ORY - [place]ONE [place] [facility] Oct 07, 2024 09:00 AM [place] [facility] Oct 19, 2024 09:30 AM [place] [facility] Active, Pending, and Scheduled Orders This section [...] PM Consult Order COMMUNITY CARE-NUCLEAR MEDICINE Cons Metrology Technician's Choice [facility] Lab Results: +/- 30 days of the [...] Range Comment Jul 13, 2024 11:18 AM [facility] BNP Specimen Type: PLASMA No comment entered. Ordering Provider: SARAH STANLEY Report Released Date/Time: Jul 13, 2024 11:12 AM Reporting Lab: [facility] [address] Performing Lab: [facility] [address] BNP 55 pg/mL <99 Jul 13, 2024 11:18 AM [facility] COMPREHENSIVE METABOLIC PANEL+MG Specimen Type: PLASMA No comment entered. Ordering Provider: SARAH STANLEY Report Released Date/Time: Jul 13, 2024 11:12 AM Reporting Lab: [facility] [address] Performing Lab: [facility] [address] CREATININE 1.1 mg/dL 0.7-1.2 UREA NITROGEN 29 [...] 17 U/L 11-34 .CREAT EGFR(CKD-EPI) 70 >60 Jun 12, 2024 07:22 AM [facility] PHOSPHORUS Specimen Type: PLASMA No comment entered. Ordering Provider: AYANA MICHELLE Report Released Date/Time: May 26, 2024 09:45 AM Reporting Lab: [facility] [address] Performing Lab: [facility] [address] PHOSPHORUS 3.4 mg/dL 2.3-4.3 Jun 12, 2024 07:22 AM [facility] RETICS Specimen Type: BLOOD Comment: Automated Differential Performed Ordering Provider: AYANA MICHELLE Report Released Date/Time: May 26, 2024 09:53 AM Reporting Lab: [facility] [address] Performing Lab: [facility] [address] ABS RETIC 0.0429 0.0300-0.1 000 .RETICULOCYTE 1.06 0.6-2.0 IMMATURE RETIC 5.9 1.0-14.0 .RETICULOCYTE HE 30.5 pg 28.2-36.6 Jun 12, 2024 07:22 AM [facility] COMPREHENSIVE METABOLIC PANEL+MG Specimen Type: PLASMA No comment entered. Ordering Provider: AYANA MICHELLE Report Released Date/Time: May 26, 2024 09:45 AM Reporting Lab: [facility] [address] Performing Lab: [facility] [address] CREATININE 1.0 mg/dL 0.7-1.2 UREA NITROGEN 22 [...] 78 >60 Jun 12, 2024 07:22 AM [facility] CBC & DIFF Specimen Type: BLOOD Comment: Automated Differential Performed Ordering Provider: AYANA MICHELLE Report Released Date/Time: May 26, 2024 09:45 AM Reporting Lab: [facility] [address] Performing Lab: [facility] [address] WBC 6.4 4.0-11.0 RBC 4.05 L 4.60-6.20 [...] pg 28.2-36.6 Jun 03, 2024 11:17 AM [facility] URINALYSIS Specimen Type: URINE No comment entered. Ordering Provider: ELOISE YEUNG Report Released Date/Time: Jun 03, 2024 10:39 AM Reporting Lab: [facility] [place] [address] Performing Lab: [facility] [address] URINE COLOR YELLOW SPECIFIC GRAVITY 1.018 1.003-1.03 [...] 10:30 AM VA-TOBACCO FORMER USER [facility] Tobacco Use History This section includes a history of the smoking, or tobacco-related health factors, that were collected on or before the date of the Encounter. The data comes from the [place] facility where the Encounter took place. Date/Time Smoking Status/Tobacco Use Comment F acility Aug 21, 2023 10:30 AM VA-TOBACCO QUIT 15 YRS OR MORE [facility] Aug 15, 2022 09:00 AM VA-TOBACCO FORMER USER [facility] Aug 15, 2022 09:00 AM VA-TOBACCO QUIT 15 YRS OR MORE [facility] Aug 21, 2021 01:00 PM VA-TOBACCO FORMER USER [facility] Aug 21, 2021 01:00 PM VA-TOBACCO QUIT 15 YRS OR MORE [facility] Jul 09, 2018 08:58 AM VA-TOBACCO FORMER USER [facility] Jul 09, 2018 08:58 AM VA-TOBACCO QUIT 15 YRS OR MORE [facility] Jul 18, 2017 09:58 AM FORMER TOBACCO USER 7Y OR GREATE R [facility] Aug 14, 2016 10:59 AM FORMER TOBACCO USER 7Y OR GREATE R [facility] Jun 29, 2015 02:03 PM FORMER TOBACCO USER 7Y OR GREATE R [facility] Jan 06, 2014 03:04 PM FORMER TOBACCO USER 7Y OR GREATE R [facility] Jan 04, 2012 08:36 AM FORMER TOBACCO USER 7Y OR [facility] Pathology Reports: +/- 30 days of the [...] COSIGNER: URGENCY: STATUS: COMPLETED $APHDR Reporting Lab: [facility] [CLIA# [id number]] [place] [address] - - - - - - - [...] in cassette B. Grossing performed by: DAVID, All Purpose Clerk Entered by: DAVID, All Purpose Clerk Grossing confirmed by: Brielle Orourke, Hematopathologist This report includes the results of laboratory tests utilizing Analyte Specific Reagents or commercially available antibodies ([place]. [place] and Lambda CISH Probes). These tests have been developed, fully validated, and their optimal performance characteristics determined by the [facility]. Such tests have [...] see also concurrent negative flow cytometry study ([id number]). Imaging studies concerning for possible lytic lesions [...] controls for CD3, CD20, CD34, CD61, CD138, [place]. [place] and lambda light chains, and pankeratin are [...] MD STAFF PATHOLOGIST, PATHOLOGY & LABORATORY [facility] Signed Jun 16, 2024@12:06 Performing Laboratory: Surgical Pathology Report Performed By: [facility] [CLIA# [id number]] [place] [address] $FTR - - - - - - - - - - - - - - - - - - - - - - - - - - - - - - - - - - - - - - - - (End of report) BRIELLE OROURKE [place] [facility] [place] Jun 16, 2024 - - - - - - - - - - - - - - - - - - - - - - - - - - - - - - - - - - - - - - - - JUAN THOMPSON JR STANDARD FORM 515 ID:[id number] SEX:M :1945 AGE: 78 LOC:[id number] PCP: Sonia Phillips /aneesh OROURKE MD STAFF PATHOLOGIST, PATHOLOGY & LABORATORY [facility] Signed: 06/16/2024 12:06 BRIELLE OROURKE [facility] Jun 16, 2024 12:02 PM LR SURGICAL PATHOL OGY REPORT: LOCAL TITLE: LR SURGICAL PATHOLOGY REPORT STANDARD TITLE: PATHOLOGY REPORT DATE OF NOTE: JUN 16, 2024@12:02:40 ENTRY DATE: JUN 16, 2024@12:02:40 AUTHOR: BRIELLE OROURKE COSIGNER: URGENCY: STATUS: COMPLETED $APHDR Reporting Lab: [facility] [CLIA# [id number]] [place] [address] - - - - - - - [...] - - - PATHOLOGY REPORT Accession No. -[id number] - - - - - - - [...] morphologic correlation see bone marrow biopsy report [id number]. Summary: On CD45 vs. side scatter analysis, [...] MD STAFF PATHOLOGIST, PATHOLOGY & LABORATORY [facility] Signed Jun 16, 2024@12:02 Performing Laboratory: Surgical Pathology Report Performed By: [facility] [CLIA# [id number]] [place] [address] $FTR - - - - - - - - - - - - - - - - - - - - - - - - - - - - - - - - - - - - - - - - (End of report) BRIELLE OROURKE [place] [facility] [place] Jun 16, 2024 - - - - - - - - - - - - - - - - - - - - - - - - - - - - - - - - - - - - - - - - JUAN THOMPSON JR STANDARD FORM 515 ID:[id number] SEX:M :1945 AGE: 78 LOC:[id number] PCP: Sonia Phillips /pablo/ BRIELLE OROURKE MD STAFF PATHOLOGIST, PATHOLOGY & LABORATORY [facility] Signed: 06/16/2024 12:02 BRIELLE OROURKE [facility] Encounter Notes: All associated encounter notes This section contains the clinical notes associated to the Encounter. Date/Time Encounter Note(s) Provider Source Jun 24, 2024 08:17 AM LETTERS: LOCAL TITLE: FOLLOW UP RESULTS LETTER STANDARD TITLE: LETTERS DATE OF NOTE: JUN 24, 2024@08:17 ENTRY DATE: JUN 24, 2024@08:17:25 AUTHOR: LEXIE PARKER EXP COSIGNER: URGENCY: STATUS: COMPLETED [facility] [place] [address] May JUAN THOMPSON [address] [facility] [address] [facility] [address] Dear Benedict: Your recent chest imaging on Apr showed: [...] please contact Lung Nodule Tracking staff at [phone]. LEXIE PARKER RN Staff Nurse/Pulmonary Home Stereo Equipment Installer LEXIE PARKER [facility] Jun 24, 2024 08:12 AM PULMONARY NOTE: LOCAL TITLE: PULMONARY LUNG NODULE NOTE STANDARD TITLE: PULMONARY NOTE DATE OF NOTE: JUN 24, 2024@08:12 ENTRY DATE: JUN 24, 2024@08:13:09 AUTHOR: LEXIE PARKER EXP COSIGNER: URGENCY: STATUS: COMPLETED Lung Nodule Registry: The patient will be tracked by the [facility]. Date of initial image: May 20, 2024 Patient risk level: High Nodule density: Solid Size of nodule of greatest concern: Enter number in MM only: 5 Size of nodule of greatest concern: All nodules <6mm Nodule border: Regular/smooth Location of largest nodule: Right Upper Lobe Next CT is recommended in 6 months. Results letter sent to patient. /es/ LEXIE PARKER RN Staff Nurse/Pulmonary Home Stereo Equipment Installer Signed: 06/24/2024 08:15 LEXIE PARKER [facility]
[2024-09-05 10:22] LABS: Albumin* 3.7 g/dL (3.3-5.0); Chloride* 95 mmol/L (96-114)
--- OUTSIDE RECORDS SUMMARY | 2024-09-05 10:22 | XMS_ITS | Encounter Summary ---
Author Name [facility] [place] Organization [facility] [place] Address [address] [place] [address] Care Team Providers Care Unit Coordinator Name Role Phone SONIA PHILLIPS Primary [...] PART A Sep 26, 2012 PART A [id number] [facility] [phone] JUAN THOMPSON JR PATIENT MEDICARE (WNR) MEDICARE (M) PART B Sep 26, 2012 PART B [id number] [phone] JUAN THOMPSON JR PATIENT Selected Encounter This section includes the information on record at [place] for the Encounter. Date/Time Encounter Type Encounter Description Reason Provider Source Jun 23, 2024 10:15 AM OFFICE O/P EST HI 40 MIN ONCOLOGY/TUMOR ICD-10-CM D47.2 Monoclonal gammopathy RENUKA JOHNSON [facility] Encounter Template Text not used by [place] Assessments - Encounter Diagnoses This section includes the primary and secondary diagnoses documented for the Encounter. Date/Time Primary/Secondary Diagnosis Diagnosis Name Provider Source Jun 23, 2024 10:45 AM PRIMARY Monoclonal gammopathy ARTURO,CHAYO [facility] Jun 23, 2024 10:45 AM SECONDARY Abnormal findings on diagnostic imaging of prt ms sys [facility] Jun 23, 2024 10:45 AM SECONDARY Anemia, unspecified [facility] Plan of Treatment: Future Appointments (+ 6 months) and Future Tests (+/- 45 days) The Plan of Treatment section includes future care activities for the patient [facility] [place] [facility] This section includes future appointments [...] 2024 08:30 AM [place] [facility] Jul 08, 2024 11:07 AM [place] [facility] Jul 13, 2024 10:00 AM [place] [facility] Jul 16, 2024 07:30 AM [place] [facility] Jul 16, 2024 08:30 AM [place] [facility] Jul 16, 2024 09:00 AM AM[place] [facility] Jul 16, 2024 09:30 AM AM[place] [facility] Jul 23, 2024 09:00 AM AM[place] [facility] Jul 28, 2024 09:00 AM [place]ORY - [place] [facility] Aug 14, 2024 03:00 PM AMBULATORY - [place]ONE [place] [facility] Aug 18, 2024 10:30 AM AM[place]ORY - [place] [facility] Aug 31, 2024 09:00 AM AM[place] [facility] Sep 03, 2024 08:00 AM AM[place] [facility] Sep 17, 2024 08:00 AM [place] [facility] Sep 17, 2024 09:00 AM [place] [facility] Sep 18, 2024 01:00 PM AM[place] [facility] Sep 24, 2024 07:00 AM AM[place]ORY - [place]ONE [place] [facility] Oct 02, 2024 03:00 PM AMBUL[place]ORY - [place]ONE [place] [facility] Oct 07, 2024 09:00 AM [place] [facility] Oct 19, 2024 09:30 AM AMBULATORY - NEUROLOGY [place] [facility] Active, Pending, and Scheduled Orders [...] PM Consult Order COMMUNITY CARE-NUCLEAR MEDICINE Cons School Operations Manager's Choice [facility] Lab Results: +/- 30 [...] Range Comment Jul 13, 2024 11:18 AM [facility] BNP Specimen Type: PLASMA No comment entered. Ordering Provider: SARAH STANLEY Report Released Date/Time: Jul 13, 2024 11:12 AM Reporting Lab: [facility] [address] Performing Lab: [facility] [address] BNP 55 pg/mL <99 Jul 13, 2024 11:18 AM [facility] COMPREHENSIVE METABOLIC PANEL+MG Specimen Type: PLASMA No comment entered. Ordering Provider: SARAH STANLEY Report Released Date/Time: Jul 13, 2024 11:12 AM Reporting Lab: [facility] [address] Performing Lab: [facility] [address] CREATININE 1.1 mg/dL 0.7-1.2 UREA NITROGEN 29 [...] 70 >60 Jun 12, 2024 07:22 AM [facility] PHOSPHORUS Specimen Type: PLASMA No comment entered. Ordering Provider: AYANA MICHELLE Report Released Date/Time: May 26, 2024 09:45 AM Reporting Lab: [facility] [address] Performing Lab: [facility] [address] PHOSPHORUS 3.4 mg/dL 2.3-4.3 Jun 12, 2024 07:22 AM [facility] RETICS Specimen Type: BLOOD Comment: Automated Differential Performed Ordering Provider: AYANA MICHELLE Report Released Date/Time: May 26, 2024 09:53 AM Reporting Lab: [facility] [address] Performing Lab: [facility] [address] ABS RETIC 0.0429 0.0300-0.1 000 .RETICULOCYTE 1.06 0.6-2.0 IMMATURE RETIC 5.9 1.0-14.0 .RETICULOCYTE HE 30.5 pg 28.2-36.6 Jun 12, 2024 07:22 AM [facility] COMPREHENSIVE METABOLIC PANEL+MG Specimen Type: PLASMA No comment entered. Ordering Provider: AYANA MICHELLE Report Released Date/Time: May 26, 2024 09:45 AM Reporting Lab: [facility] [address] Performing Lab: [facility] [address] CREATININE 1.0 mg/dL 0.7-1.2 UREA NITROGEN 22 [...] 78 >60 Jun 12, 2024 07:22 AM [facility] CBC & DIFF Specimen Type: BLOOD Comment: Automated Differential Performed Ordering Provider: AYANA MICHELLE Report Released Date/Time: May 26, 2024 09:45 AM Reporting Lab: [facility] [address] Performing Lab: [facility] [address] WBC 6.4 4.0-11.0 RBC 4.05 L 4.60-6.20 [...] pg 28.2-36.6 Jun 03, 2024 11:17 AM [facility] URINALYSIS Specimen Type: URINE No comment entered. Ordering Provider: ELOISE YEUNG Report Released Date/Time: Jun 03, 2024 10:39 AM Reporting Lab: [facility] [address] Performing Lab: [facility] [address] URINE COLOR YELLOW SPECIFIC GRAVITY 1.018 1.003-1.03 [...] Source Jun 23, 2024 09:59 AM 132/73 [facility] Jun 23, 2024 09:54 AM 97.9 58 142/73 18 99 0 68 176.8 27 [facility] Social History: Smoking Status (Most [...] [place] Aug 21, 2023 10:30 AM [place]-TOBACCO FORMER USER [facility] Tobacco Use [...] YRS OR MORE [facility] Aug 15, 2022 09:00 AM VA-TOBACCO FORMER USER [facility] Aug 15, 2022 09:00 AM VA-TOBACCO [...] 7Y OR GREATE R [facility] Pathology Reports: +/- 30 days of [...] COSIGNER: URGENCY: STATUS: COMPLETED $APHDR Reporting Lab: [facility] [CLIA# [id number]] [place] [address] - - - - - - - [...] in cassette B. Grossing performed by: DAVID, Pool Attendant Entered by: DAVID, Pool Attendant Grossing confirmed by: Brielle Amin, Hematopathologist This report includes the results of laboratory tests utilizing Analyte Specific Reagents or commercially available antibodies ([place] and Lambda CISH Probes). These tests have been developed, fully validated, and their optimal performance characteristics determined by the [facility]. Such tests have [...] see also concurrent negative flow cytometry study ([id number]). Imaging studies concerning for possible lytic lesions [...] controls for CD3, CD20, CD34, CD61, CD138, [place] and lambda light chains, and pankeratin are [...] Performing Laboratory: Surgical Pathology Report Performed By: [facility] [CLIA# [id number]] [place] [address] $FTR - - - - - - - - - - - - - - - - - - - - - - - - - - - - - - - - - - - - - - - - (End of report) BRIELLE AMIN MD [facility] Date Jun 16, 2024 - - - - - - - - - - - - - - - - - - - - - - - - - - - - - - - - - - - - - - - - DONNAJUAN SIRIABHAVYA LANDAVERDE STANDARD FORM 515 ID:[id number] SEX:M :1945 AGE: 78 LOC:[id number] PCP: Sonia Phillips /pablo/ BRIELLE AMIN MD STAFF PATHOLOGIST, PATHOLOGY & LABORATORY [facility] Signed: 06/16/2024 12:06 BRIELLE AMIN [facility] Jun 16, 2024 12:02 PM LR SURGICAL PATHOL OGY REPORT: LOCAL TITLE: LR SURGICAL PATHOLOGY REPORT STANDARD TITLE: PATHOLOGY REPORT DATE OF NOTE: JUN 16, 2024@12:02:40 ENTRY DATE: JUN 16, 2024@12:02:40 AUTHOR: BRIELLE AMIN EXP COSIGNER: URGENCY: STATUS: COMPLETED $APHDR Reporting Lab: [facility] [CLIA# [id number]] [place] [address] - - - - - - - [...] morphologic correlation see bone marrow biopsy report [id number]. Summary: On CD45 vs. side scatter analysis, [...] Performing Laboratory: Surgical Pathology Report Performed By: [facility] [CLIA# [id number]] [place] [address] $FTR - - - - - - - - - - - - - - - - - - - - - - - - - - - - - - - - - - - - - - - - (End of report) BRIELLE AMIN MD [facility] [place] Date Jun 16, 2024 - - - - - - - - - - - - - - - - - - - - - - - - - - - - - - - - - - - - - - - - JUAN THOMPSON JR STANDARD FORM 515 ID:[id number] SEX:M :1945 AGE: 78 LOC:[id number] PCP: Sonia Phillips /aneesh AMIN MD STAFF PATHOLOGIST, PATHOLOGY & LABORATORY [facility] Signed: 06/16/2024 12:02 BRIELLE AMIN [facility] Encounter Notes: All associated [...] /pablo/ SONIA PHILLIPS MD PHYSICIAN for LYUBOV CINTRONRYAN 06/23/2024 13:16 /pablo/ SONIA PHILLIPS MD PHYSICIAN [...] see also concurrent negative flow cytometry study ([id number]). Imaging studies concerning for possible lytic lesions [...] morphologic correlation see bone marrow biopsy report [id number]. CP GASTROENTEROLOGY PROCEDURE EGD -05/08/24 Findings: - [...] histopathologic abnormalities -no evidence of eosinophilic esophagitis GASTROENTEROLOGY PROCEDURE Colonoscopy -08/28/2016 Impression: - The [...] Endocrinology for further evaluations. 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 /pablo/ ROSANA ORANTES LPN [employer] Signed: 06/23/2024 09:59 ROSANA ORANTES [facility] Jun 23, 2024 09:03 AM HEMATOLOGY AND ONC OLOGY ATTENDING NOTE: LOCAL TITLE: HEME/ONC CLINIC NOTE STANDARD TITLE: HEMATOLOGY AND ONCOLOGY ATTENDING NOTE DATE OF NOTE: JUN 23, 2024@09:03 ENTRY DATE: JUN 23, 2024@09:03:46 AUTHOR: MARIE MORRIS EXP COSIGNER: URGENCY: STATUS: COMPLETED HEME/ONC CLINIC NOTE Has ADDENDA Reason for visit (CC): Weight loss, lymphadenopathy - malignancy eval HPI and Interval history: PMHx of Nia en Y bypass (2011), Afib on eliquis, [...] see also concurrent negative flow cytometry study ([id number]). Imaging studies concerning for possible lytic lesions [...] morphologic correlation see bone marrow biopsy report [id number]. CP GASTROENTEROLOGY PROCEDURE EGD -05/08/24 Findings: - [...] Endocrinology for further evaluations. 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
--- OUTSIDE RECORDS SUMMARY | 2024-09-05 10:22 | XMS_ITS | Encounter Summary ---
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 Date/Time Encounter Type Encounter Description Reason Provider Source Jun 03, 2024 10:00 AM OFFICE O/P EST MOD 30 MIN PRIMARY CARE/MEDICINE ICD-10-CM R63.4 Abnormal weight loss LINDA BOOGIE I IHE Encounter Template Text not used by [place] Assessments - Encounter Diagnoses This section includes the primary and secondary diagnoses documented for the Encounter. Date/Time Primary/Secondary Diagnosis Diagnosis Name Provider Source Jun 03, 2024 12:20 PM PRIMARY Abnormal weight loss WESTON BOOGIE GURINDER [facility] Jun 03, 2024 12:20 PM SECONDARY Encounter for immunization HARDEEPSUSAN GARCIA [facility] Plan of Treatment: Future Appointments (+ 6 months) and Future Tests (+/- 45 days) The Plan of Treatment section includes future care activities for the patient from [facility] [place] [facility]. This section includes future appointments and future orders which are active, pending or scheduled. Future Appointments This section includes appointments that were scheduled to occur 6 months from the date of the Encounter, up to a maximum of 20 appointments. The data comes from all [facility] facilities. Appointment Date/Time Appointment Type Appointme nt Facility Name Jun 04, 2024 09:30 AM AM[place] [facility] Jun 05, 2024 01:30 PM [place] [facility] Jun 12, 2024 07:30 AM AMB[place]ORY [place] [facility] Jun 12, 2024 08:30 AM [place] [facility] Jun 23, 2024 10:15 AM [place] [facility] Jul 06, 2024 08:30 AM [place]ORY [place]ONE [place] [facility] Jul 08, 2024 11:07 AM [place]ORY [place]ONE [place] [facility] Jul 13, 2024 10:00 AM [place]IC[place] [facility] Jul 16, 2024 07:30 AM [place] [facility] Jul 16, 2024 08:30 AM [place]IC[place] [facility] Jul 16, 2024 09:00 AM [place] [facility] Jul 16, 2024 09:30 AM [place] [facility] Jul 23, 2024 09:00 AM AM[place] [facility] Jul 28, 2024 09:00 AM [place]ORY [place]ONE [place] [facility] Aug 14, 2024 03:00 PM AMB[place]ORY - [place]ONE [place] [facility] Aug 18, 2024 10:30 AM [place]ORY [place]ONE [place] [facility] Aug 31, 2024 09:00 AM AMBULATORY [place] [facility] Sep 03, 2024 08:00 AM AMBUL[place] [facility] Sep 17, 2024 08:00 AM [place]ORY [place]IC[place] [facility] Sep 17, 2024 09:00 AM [facility] Active, Pending, and Scheduled Orders This section includes a listing of several types of active, pending, and scheduled orders, including clinic medications orders, diagnostic test orders, procedure orders and consult orders; where the start date of the order is 45 days before the date of the Encounter or 45 days after the date of theEncounter. The data comes from all [place] treatment facilities. Test Date/Time Test Type Test Details Facility Name Jun 19, 2024 04:32 PM Consult Order [facility] Cons Student Records Coordinator's Choice [facility] Lab Results: +/- 30 days of the encounter This section includes the Chemistry and Hematology Lab Results on record with [place] for the patient. Radiology Reports and Pathology Reports are provided separately, in subsequent sections. Lab Results This section contains the Chemistry/Hematology Results that were resulted 30 days before or 30 daysafter the date of the Encounter. Date/Time Source Result Type Result - Unit Interpretation Reference Range Comment Jun 12, 2024 07:22 AM [facility] PHOSPHORUS Specimen Type: PLASMA No comment entered. Ordering Provider: JAVIER MICHELLE Report Released Date/Time: May 26, 2024 09:45 AM Reporting Lab: [facility] [address] Performing Lab: [facility] [address] PHOSPHORUS 3.4 mg/dL 2.3-4.3 Jun 12, 2024 07:22 AM [facility] RETICS Specimen Type: BLOOD Comment: Automated Differential Performed Ordering Provider: JAVIER MICHELLE Report Released Date/Time: May 26, 2024 09:53 AM Reporting Lab: [facility] [address] Performing Lab: [facility] [address] ABS RETIC 0.0429 0.0300-0.1 000 .RETICULOCYTE 1.06 0.6-2.0 IMMATURE RETIC 5.9 1.0-14.0 .RETICULOCYTE HE 30.5 pg 28.2-36.6 Jun 12, 2024 07:22 AM [facility] COMPREHENSIVE METABOLIC PANEL+MG Specimen Type: PLASMA No comment entered. Ordering Provider: JAVIER MICHELLE Report Released Date/Time: May 26, 2024 09:45 AM Reporting Lab: [facility] [address] Performing Lab: [facility] [address] CREATININE 1.0 mg/dL 0.7-1.2 UREA NITROGEN 22 [...] 78 >60 Jun 12, 2024 07:22 AM [facility] CBC & DIFF Specimen Type: BLOOD Comment: Automated Differential Performed Ordering Provider: JAVIER MICHELLE Report Released Date/Time: May 26, 2024 09:45 AM Reporting Lab: [facility] [address] Performing Lab: [facility] [address] WBC 6.4 4.0-11.0 RBC 4.05 L 4.60-6.20 [...] pg 28.2-36.6 Jun 03, 2024 11:17 AM [facility] URINALYSIS Specimen Type: URINE No comment entered. Ordering Provider: TUAN YEUNG Report Released Date/Time: Jun 03, 2024 10:39 AM Reporting Lab: [facility] [address] Performing Lab: [facility] [address] URINE COLOR YELLOW SPECIFIC GRAVITY 1.018 1.003-1.03 [...] 75 NEGATIVE May 20, 2024 09:39 AM [facility] FINGERSTICK GLUCOSE Specimen Type: BLOOD Comment: Save Result Ordering Provider: TANK PHILLIPS Report Released Date/Time: May 20, 2024 03:03 PM Reporting Lab: [facility] [address] Performing Lab: [facility] [address] FINGERSTICK GLUCOSE 148 mg/dL H 70-100 May 13, 2024 11:44 AM [facility] KAPPA/LAMBDA LC FREE,RATIO Specimen Type: SERUM [...] therapy of these disorders. Test Performed by [employer] [facility], [address] [place] [address] Devante Meyer M.D., Ph.D., Director of Laboratories , CLIA [id number] Ordering Provider: RENUKA JOHNSON Report Released Date/Time: Apr 24, 2024 04:08 PM Reporting Lab: [facility] [address] Performing Lab: [address] .KAPPA LT CHAIN,FREE 27.3 mg/L H 3.3-19.4 .LAMBDA LC,FREE 15.8 mg/L 5.7-26.3 .KAPPA/LAMBDA, FREE 1.73 H 0.26-1.65 May 13, 2024 11:44 AM [facility] URIC ACID Specimen Type: PLASMA No comment entered. Ordering Provider: RENUKA JOHNSON Report Released Date/Time: Apr 24, 2024 04:08 PM Reporting Lab: [facility] [address] Performing Lab: [facility] [address] URIC ACID 3.1 mg/dL L 3.7-7.7 May 13, 2024 11:44 AM [facility] LD,TOTAL Specimen Type: PLASMA No comment entered. Ordering Provider: RENUKA JOHNSON Report Released Date/Time: Apr 24, 2024 04:08 PM Reporting Lab: [facility] [address] Performing Lab: [facility] [address] LD,TOTAL 141 U/L 125-220 May 13, 2024 11:44 AM [facility] B 12 Specimen Type: SERUM No comment entered. Ordering Provider: RENUKA JOHNSON Report Released Date/Time: Apr 24, 2024 04:08 PM Reporting Lab: [facility] [address] Performing Lab: [facility] [address] B 12 722 pg/mL 213-816 May 13, 2024 11:44 AM [facility] FOLATE Specimen Type: SERUM No comment entered. Ordering Provider: RENUKA JOHNSON Report Released Date/Time: Apr 24, 2024 04:08 PM Reporting Lab: [facility] [address] Performing Lab: [facility] [address] FOLATE 14.6 ng/mL >7.0 May 13, 2024 11:44 AM [facility] PHOSPHORUS Specimen Type: PLASMA No comment entered. Ordering Provider: RENUKA JOHNSON Report Released Date/Time: Apr 24, 2024 04:08 PM Reporting Lab: [facility] [address] Performing Lab: [facility] [address] PHOSPHORUS 3.3 mg/dL 2.3-4.3 May 13, 2024 11:44 AM [facility] IRON GROUP Specimen Type: SERUM No comment entered. Ordering Provider: ERNUKA JOHNSON Report Released Date/Time: Apr 24, 2024 04:08 PM Reporting Lab: [facility] [address] Performing Lab: [facility] [address] IRON 101 ug/dL 65-175 TIBC,CALCULATE D 313 ug/dL 250-425 FERRITIN pending IRON SATURATION 32 20-50 TRANSFERRIN 250 mg/dL 163-382 May 13, 2024 11:44 AM [facility] BETA 2-MICROGLOBULIN Specimen Type: SERUM No comment entered. Ordering Provider: RENUKA JOHNSON Report Released Date/Time: Apr 24, 2024 04:08 PM Reporting Lab: [facility] [address] Performing Lab: [facility] [address] BETA 2-MICROGLOBULI N 3.36 mg/L H 0.97-2.64 May 13, 2024 11:44 AM [facility] TOTAL IMMUNOGLOB (IGA,IGG,IGM) Specimen Type: PLASMA No comment entered. Ordering Provider: RENUKA JOHNSON Report Released Date/Time: Apr 24, 2024 04:08 PM Reporting Lab: [facility] [address] Performing Lab: [facility] [address] IGM 78.8 mg/dL 22.0-293.0 IGG 714.3 mg/dL 540.0-18 22 .0 IGA 123.8 mg/dL 63.0-645.0 May 13, 2024 11:44 AM [facility] PSA Specimen Type: SERUM No comment entered. Ordering Provider: ABBY MEANS Report Released Date/Time: May 12, 2024 08:28 PM Reporting Lab: [facility] [address] Performing Lab: [facility] [address] PSA 0.49 ng/mL <4.00 May 13, 2024 11:44 AM [facility] TESTOSTERONE Specimen Type: SERUM No comment entered. Ordering Provider: ABBY MEANS Report Released Date/Time: May 12, 2024 08:30 PM Reporting Lab: [facility] [address] Performing Lab: [facility] [address] TESTOSTERONE 534 ng/dL 221-870 May 13, 2024 11:44 AM [facility] CBC & DIFF Specimen Type: BLOOD Comment: Automated Differential Performed Ordering Provider: RENUKA JOHNSON Report Released Date/Time: Apr 24, 2024 04:08 PM Reporting Lab: [facility] [address] Performing Lab: [facility] [address] WBC 8.3 4.0-11.0 RBC 4.04 L 4.60-6.20 [...] 0.0 0.0-0.1 May 13, 2024 11:44 AM [facility] COMPREHENSIVE METABOLIC PANEL+MG Specimen Type: PLASMA No comment entered. Ordering Provider: RENUKA JOHNSON Report Released Date/Time: Apr 24, 2024 04:08 PM Reporting Lab: [facility] [address] Performing Lab: [facility] [address] CREATININE 1.0 mg/dL 0.7-1.2 UREA NITROGEN 26 [...] 78 >60 May 13, 2024 11:44 AM [facility] PERIPHERAL SMEAR PATHOLOGIST REVIEW Specimen Type: BLOOD No comment entered. Ordering Provider: RENUKA JOHNSON Report Released Date/Time: May 13, 2024 01:51 PM Reporting Lab: [facility] [address] Performing Lab: [facility] [address] PERIPHERAL SMEAR PATHOLOGIST REVIEW SLIDES MADE Vital Signs: All taken on the encounter date This section contains inpatient and outpatient Vital Signs collected on the date of the Encounter. Date/Time Temperature Pulse Blood Pressure Respiratory Rate SP02 Pain Height Weight Body Mass Index Source Jun 03, 2024 10:12 AM 90 110/73 16 97 1 68 166 25 [facility] Immunizations: All administered on the encounter [...] smoking, or tobacco-related health factor, from the [place] facility where the Encounter took place. Date/Time Current Smoking Status Comment Facil ity Aug 21, 2023 10:30 AM [place]-TOBACCO QUIT 15 YRS OR MORE [facility] Tobacco Use History This section includes a history of the smoking, or tobacco-related health factors, that were collected on or before the date of the Encounter. The data comes from the [facility] where the Encounter took place. Date/Time Smoking Status/Tobacco Use Comment F acility Aug 21, 2023 10:30 AM [place]-TOBACCO QUIT 15 YRS OR MORE [facility] Aug 15, 2022 09:00 AM VA-TOBACCO FORMER USER [facility] Aug 15, 2022 09:00 AM [place]-TOBACCO QUIT 15 YRS OR MORE [facility] Aug 21, 2021 01:00 PM VA-TOBACCO FORMER USER [facility] Aug 21, 2021 01:00 PM [place]-TOBACCO QUIT 15 YRS OR MORE [facility] Jul 09, 2018 08:58 AM [place]-TOBACCO FORMER USER [facility] Jul 09, 2018 08:58 AM [place]-TOBACCO QUIT 15 YRS OR MORE [facility] Jul 18, 2017 09:58 AM FORMER TOBACCO USER 7Y OR GREATE R [facility] Aug 14, 2016 10:59 AM FORMER TOBACCO USER 7Y OR GREATE R [facility] Jun 29, 2015 02:03 PM FORMER TOBACCO USER 7Y OR GREATE R [facility] Jan 06, 2014 03:04 PM FORMER TOBACCO USER 7Y OR GREATE R [facility] Jan 04, 2012 08:36 AM FORMER TOBACCO USER 7Y OR GREATE R [facility] Radiology Reports: +/- 30 days of [...] the Encounter. The data comes from all [place] treatment facilities. Date/Time Radiology Report Provider Source May 20, 2024 09:[address] BODY W/O CO NTRAST (P): JUAN THOMPSON [id number] -1945 M Exm Date: MAY 20, 2024@09:14 Req Phys: TUAN YEUNG Loc: [facility] APACT L RES 03 WH 4F (Req' Img Loc: [facility] MED Service: [place] [address] (Case [id number] COMPLETE) SKULL-THIGH PET IMAGE W/CT (NM Detailed) CPT:70000 Reason for Study: eval for malignancy (Case [...] pager listed below: User placing orders pager: [phone] LAST CREATININE 1.0 (04/22/24) Report Status: Verified Date Reported: MAY 20, 2024 Date Verified: MAY 20, 2024 [place] E-Sig:/ES/RUFUS GROVES MD, FACR, CCD Report: PET/CT [...] Staff: RUFUS GROVES MD, FACR, STAFF RADIOLOGIST ([place]) /BSF RUFUS GROVES [facility] Pathology Reports: +/- 30 days of the [...] the Encounter. The data comes from all [place] treatment facilities. Date/Time Pathology Report Provider Source Jun 16, 2024 12:06 PM LR SURGICAL PATHOLOGY REPORT: LOCAL TITLE: LR SURGICAL PATHOLOGY REPORT STANDARD TITLE: PATHOLOGY REPORT DATE OF NOTE: JUN 16, 2024@12:06:01 ENTRY DATE: JUN 16, 2024@12:06:01 AUTHOR: BRIELLE AMIN COSIGNER: URGENCY: STATUS: COMPLETED $APHDR Reporting Lab: [facility] [CLIA# [id number]] [place] [address] - - - - - - - [...] - - - POSTOPERATIVE DIAGNOSIS: Surgeon/physician: JAVIER M. LUSTECK =-=-=-=-=-=-=-=-=-=-=-=-=-=-=- =-=-=-=-=-=-=-=-=-=-=-=-=-=-=- =-=-=-=-=-=-=-=-=-= - - - - [...] cassette B. Grossing performed by: DAVID, Director Of Regional Sales Entered by: DAVID, Director Of Regional Sales Grossing confirmed by: Brielle Amin, Hematopathologist This report includes the results of laboratory tests utilizing Analyte Specific Reagents or commercially available antibodies ([place] and Lambda CISH Probes). These tests have [...] see also concurrent negative flow cytometry study ([id number]). Imaging studies concerning for possible lytic lesions [...] controls for CD3, CD20, CD34, CD61, CD138, [place] and lambda light chains, and pankeratin are [...] MD STAFF PATHOLOGIST, PATHOLOGY & LABORATORY MED [facility] Signed Jun 16, 2024@12:06 Performing Laboratory: Surgical Pathology Report Performed By: [facility] [CLIA# [id number]] [place] [address] $FTR - - - - - - - - - - - - - - - - - - - - - - - - - - - - - - - - - - - - - - - - (End of report) BRIELLE AMIN MD [facility] Date Jun 16, 2024 - - - - - - - - - - - - - - - - - - - - - - - - - - - - - - - - - - - - - - - - JUAN THOMPSON STANDARD FORM 515 ID:[id number] SEX:M :1945 AGE: 78 LOC:[id number] PCP: Sonia Phillips /pablo/ BRIELLE AMIN MD STAFF PATHOLOGIST, PATHOLOGY & LABORATORY MED [facility] Signed: 06/16/2024 12:06 BRIELLE AMIN [facility] Jun 16, 2024 12:02 PM LR SURGICAL PATHOLOGY REPORT: LOCAL TITLE: LR SURGICAL PATHOLOGY REPORT STANDARD TITLE: PATHOLOGY REPORT DATE OF NOTE: JUN 16, 2024@12:02:40 ENTRY DATE: JUN 16, 2024@12:02:40 AUTHOR: BRIELLE AMIN EXP COSIGNER: URGENCY: STATUS: COMPLETED $APHDR Reporting Lab: [facility] [CLIA# [id number]] [place] [address] - - - - - - - [...] morphologic correlation see bone marrow biopsy report [id number]. Summary: On CD45 vs. side scatter analysis, [...] by the U.S. Food and Drug Administration. /es/ BRIELLE AMIN MD STAFF PATHOLOGIST, PATHOLOGY & LABORATORY MED [facility] Signed Jun 16, 2024@12:02 Performing Laboratory: Surgical Pathology Report Performed By: [facility] [CLIA# [id number]] [place] [address] $FTR - - - - - - - - - - - - - - - - - - - - - - - - - - - - - - - - - - - - - - - - (End of report) BRIELLE AMIN MD [facility] Date Jun 16, 2024 - - - - - - - - - - - - - - - - - - - - - - - - - - - - - - - - - - - - - - - - JUAN THOMPSON JR STANDARD FORM 515 ID:[id number] SEX:M :1945 AGE: 78 LOC:[id number] PCP: Sonia Phillips /pablo/ BRIELLE AMIN MD STAFF PATHOLOGIST, PATHOLOGY & LABORATORY MED [facility] Signed: 06/16/2024 12:02 BRIELLE AMIN [facility] May 14, 2024 10:47 AM LR SURGICAL PATHOLOGY REPORT: LOCAL TITLE: LR SURGICAL PATHOLOGY REPORT STANDARD TITLE: PATHOLOGY REPORT DATE OF NOTE: MAY 14, 2024@10:47:04 ENTRY DATE: MAY 14, 2024@10:47:04 AUTHOR: VIPUL DASILVA COSIGNER: URGENCY: STATUS: COMPLETED $APHDR Reporting Lab: [facility] [CLIA# [id number]] [place] [address] - - - - - - - [...] Performing Laboratory: Surgical Pathology Report Performed By: [facility] [CLIA# [id number]] [place] [address] $FTR - - - - - - [...] - JUAN THOMPSON JR STANDARD FORM 515 ID:[id number] SEX:M :1945 AGE: 78 LOC:[id number] PCP: Sonia Phillips /pablo/ VIPUL DASILVA MD STAFF PATHOLOGIST Signed: 05/14/2024 10:47 VIPUL DASILVA [facility] Encounter Notes: All associated encounter notes [...] YEARS) Date Administered: Jun 03, 2024 10:00 Sales Merchandising Specialist: [employer] Lot: [id number] Exp Date: Oct 27, 2024 [facility]: [id number] Admin Route/Site: INTRAMUSCULAR/LEFT DELTOID Dosage: 0.3mL Vaccine Information Statement(s): COVID-19 MRNA VACCINE (12+ YRS) VACCINE VIS May 14, 2024 ([place]OTT[place]) Order By: Policy Administered By: Jyotsna Meier Vaccine administered without complications. Td / Tdap Immunization: The patient declines to receive the recommended dose of Td/Tdap vaccine. Immunization: TD(ADULT) UNSPECIFIED FORMULATION Refusal Reason: PATIENT DECISION Patient refuses all immunization(s) in the Td group Date Documented: 06/03/24 10:17 /aneesh MEIER LPN STAFF COILED TUBING SUPERVISOR Signed: 06/03/2024 10:17 06/03/2024 ADDENDUM STATUS: COMPLETED EDUCATION: PARTICIPANT(s): Patient Clean Catch Urine Instructed in collection of clean catch urine. Printed instructions provided and participant(s) is able to repeat these instructions accurately. Urinalysis and urine culture sent to lab /pablo/ JYOTSNA MEIER LPN STAFF COILED TUBING SUPERVISOR Signed: 06/03/2024 10:52 JYOTSNA MEIER [facility] Jun 03, 2024 08:46 AM INTERNAL MEDICINE [...] his normal renal function, normal calcium, hemoglobin 11-, though he still may have light chain [...] for the followin. Essential hypertension (SNOMED CT 18682235) 2. Major depressive disorder (SNOMED CT 852511622) 3. Generalized anxiety disorder (SNOMED CT 08413116) 4. Primary Obesity 5. Bronchiectasis (SNOMED CT 50185734) 6. Gastroesophageal reflux disease (SNOMED CT 044769869) 7. Bariatric Surgery Status 8. Cataracts (SNOMED CT 35382829) 9. Hypermetropia/Hyperopia 10. Astigmatism, Unspec 11. Presbyopia 12. Atrial fibrillation (SNOMED CT 16942668) 13. Varicose veins of lower extremity 14. Compulsive gambling 15. Bipolar disorder (SNOMED CT 81180962) 16. Mild cognitive disorder 17. Type 2 [...] next week, f/u oncology, appreciate input # [place] urine No urinary tract sxs otherwise, but [...] Boogie. Tuan Yeung MD Internal Medicine/Dermatology PGY-4 --0108 Education on Treatment Plan: Patient indicates readiness [...] 06/03/2024 11:11 Receipt Acknowledged By: 06/03/2024 12:20 /aneesh BOOGIE MD Staff Physician 06/19/2024 16:28 /pablo/ [...] Staff Physician Signed: 06/03/2024 12:20 TUAN YEUNG [facility]
--- OUTSIDE RECORDS SUMMARY | 2024-09-05 10:22 | XMS_ITS | Encounter Summary ---
Author Name [facility] [place] [facility] [place] [facility] [place] Address [address] [place] [address] Care Team Providers Care Dental Sales Representative Name Role Phone SONIA PHILLIPS Primary Care [...] PART B Sep 26, 2012 PART B [id number] [facility] [phone] JUAN THOMPSON JR PATIENT MEDICARE (WNR) MEDICARE (M) PART A Sep 26, 2012 PART A [id number] [phone] JUAN THOMPSON JR PATIENT Selected Encounter This [...] on diagnostic imaging of prt WILLEM Kwok [facility] Plan of Treatment: Future Appointments (+ 6 months) and Future Tests (+/- 45 days) The Plan of Treatment section includes future care activities for the patient [facility] [place] [facility] This section includes future appointments [...] [place] [facility] Jul 08, 2024 11:07 AM AMBULATORY - NONE [place] [facility] Jul 13, 2024 10:00 AM [place]UL[place] - [place]IC[place] [facility] Jul 16, 2024 07:30 AM [place]IC[place] [facility] Jul 16, 2024 08:30 AM [place]IC[place] [facility] Jul 16, 2024 09:00 AM [place] [facility] Jul 16, 2024 09:30 AM [place] [facility] Jul 23, 2024 09:00 AM [place] [facility] Jul 28, 2024 09:00 AM AM[place]UL[place]ORY - NONE [place] [facility] Aug 14, 2024 03:00 PM AMBUL[place]ORY - NONE [place] [facility] Aug 18, 2024 10:30 AM [place]UL[place]ORY - NONE [place] [facility] Aug 31, 2024 09:00 AM [place] [facility] Sep 03, 2024 08:00 AM [place] [facility] Sep 17, 2024 08:00 AM [place]IC[place] [facility] Sep 17, 2024 09:00 AM [facility] [place] [place] [facility] Sep 18, 2024 01:00 PM [place] [facility] Sep 24, 2024 07:00 AM AMBULATORY - NONE [place] Oct 02, 2024 03:00 PM AMBULATORY - NONE [place] [facility] Oct 07, 2024 09:00 AM [facility] Active, Pending, and Scheduled Orders This [...] PM Consult Order COMMUNITY CARE-NUCLEAR MEDICINE Cons Table Saw Operator's Choice [facility] Lab Results: +/- 30 days [...] Range Comment Jun 12, 2024 07:22 AM [facility] PHOSPHORUS Specimen Type: PLASMA No comment entered. Ordering Provider: AYANA MICHELLE Report Released Date/Time: May 26, 2024 09:45 AM Reporting Lab: [facility] [address] Performing Lab: [facility] [address] PHOSPHORUS 3.4 mg/dL 2.3-4.3 Jun 12, 2024 07:22 AM [facility] RETICS Specimen Type: BLOOD Comment: Automated Differential Performed Ordering Provider: AYANA MICHELLE Report Released Date/Time: May 26, 2024 09:53 AM Reporting Lab: [facility] [address] Performing Lab: [facility] [address] ABS RETIC 0.0429 0.0300-0.1 000 .RETICULOCYTE 1.06 0.6-2.0 IMMATURE RETIC 5.9 1.0-14.0 .RETICULOCYTE HE 30.5 pg 28.2-36.6 Jun 12, 2024 07:22 AM [facility] COMPREHENSIVE METABOLIC PANEL+MG Specimen Type: PLASMA No comment entered. Ordering Provider: AYANA MICHELLE Report Released Date/Time: May 26, 2024 09:45 AM Reporting Lab: [facility] [address] Performing Lab: [facility] [address] CREATININE 1.0 mg/dL 0.7-1.2 UREA NITROGEN 22 [...] 78 >60 Jun 12, 2024 07:22 AM [facility] CBC & DIFF Specimen Type: BLOOD Comment: Automated Differential Performed Ordering Provider: AYANA MICHELLE Report Released Date/Time: May 26, 2024 09:45 AM Reporting Lab: [facility] [address] Performing Lab: [facility] [address] WBC 6.4 4.0-11.0 RBC 4.05 L 4.60-6.20 [...] pg 28.2-36.6 Jun 03, 2024 11:17 AM [facility] URINALYSIS Specimen Type: URINE No comment entered. Ordering Provider: ELOISE YEUNG Report Released Date/Time: Jun 03, 2024 10:39 AM Reporting Lab: [facility] [address] Performing Lab: [facility] [address] URINE COLOR YELLOW SPECIFIC GRAVITY 1.018 1.003-1.03 [...] 75 NEGATIVE May 20, 2024 09:39 AM [facility] FINGERSTICK GLUCOSE Specimen Type: BLOOD Comment: Save Result Ordering Provider: UNA PHILLIPS Report Released Date/Time: May 20, 2024 03:03 PM Reporting Lab: [facility] [address] Performing Lab: [facility] [address] FINGERSTICK GLUCOSE 148 mg/dL H 70-100 Vital Signs: All taken on the encounter date This section contains inpatient and outpatient Vital Signs collected on the date of the Encounter. Date/Time Temperature Pulse Blood Pressure Respiratory Rate SP02 Pain Height Weight Body Mass Index Source Jun 12, 2024 11:14 AM 97.4 63 119/70 16 97 0 [place] [facility] Jun 12, 2024 10:32 AM 97.7 62 126/83 16 97 0 [facility] Jun 12, 2024 08:50 AM 97.6 77 109/62 20 99 0 68 173.2 26 [facility] Social History: Smoking Status [...] 10:30 AM [place]-TOBACCO FORMER USER [facility] Tobacco Use History This section includes a history of the smoking, or tobacco-related health factors, that were collected on or before the date of the Encounter. The data comes from the [place] facility where the Encounter took place. Date/Time Smoking Status/Tobacco Use Comment F acility Aug 21, 2023 10:30 AM VA-TOBACCO QUIT 15 YRS OR MORE [facility] Aug 15, 2022 09:00 AM VA-TOBACCO FORMER USER [facility] Aug 15, 2022 09:00 AM VA-TOBACCO QUIT 15 YRS OR MORE [facility] Aug 21, 2021 01:00 PM VA-TOBACCO FORMER USER [facility] Aug 21, 2021 01:00 PM VA-TOBACCO QUIT 15 YRS OR MORE [facility] Jul 09, 2018 08:58 AM VA-TOBACCO FORMER USER [facility] Jul 09, 2018 08:58 AM VA-TOBACCO QUIT 15 YRS OR MORE [facility] Jul 18, 2017 09:58 AM FORMER TOBACCO USER 7Y OR GREATE R [facility] Aug 14, 2016 10:59 AM FORMER TOBACCO USER 7Y OR GREATE R [facility] Jun 29, 2015 02:03 PM FORMER TOBACCO USER 7Y OR GREATE R [facility] Jan 06, 2014 03:04 PM FORMER TOBACCO USER 7Y OR GREATE R [facility] Jan 04, 2012 08:36 AM FORMER TOBACCO USER 7Y OR GREATE R [facility] Radiology Reports: +/- 30 days of [...] BODY W/O CO NTRAST (P): JUAN THOMPSON [id number] -1945 M Exm Date: MAY 20, 2024@09:14 Req Phys: LYUBOV YEUNG Loc: [facility] APACT L RES 03 WH 4F (Req' Img Loc: [facility] Service: [place] [address] (Case [id number] COMPLETE) SKULL-THIGH PET IMAGE W/CT (NM Detailed) CPT:38622 Reason for Study: eval for malignancy (Case [...] pager listed below: User placing orders pager: [phone] LAST CREATININE 1.0 (04/22/24) Report Status: Verified Date Reported: MAY 20, 2024 Date Verified: MAY 20, 2024 Ems Manager E-Sig:/ES/RUFUS GROVES MD, FACR, CCD Report: [...] Staff: RUFUS GROVES MD, FACR, STAFF RADIOLOGIST (Ems Manager) /BSF RUFUS GROVES [facility] Pathology Reports: +/- 30 days of [...] COSIGNER: URGENCY: STATUS: COMPLETED $APHDR Reporting Lab: [facility] [CLIA# [id number]] [place] [address] - - - - - - - [...] - - - PATHOLOGY REPORT Accession No. [id number] - - - - - [...] in cassette B. Grossing performed by: DAVID, Quill Reamer Entered by: DAVID, Quill Reamer Grossing confirmed by: Brielle Amin, Hematopathologist This report includes the results of laboratory tests utilizing Analyte Specific Reagents or commercially available antibodies (Botkins and Lambda CISH Probes). These tests have been developed, fully validated, and their optimal performance characteristics determined by the [facility]. Such tests have [...] see also concurrent negative flow cytometry study ([id number]). Imaging studies concerning for possible lytic lesions [...] controls for CD3, CD20, CD34, CD61, CD138, Botkins and lambda light chains, and pankeratin are [...] MD STAFF PATHOLOGIST, PATHOLOGY & LABORATORY MED [facility] Signed Jun 16, 2024@12:06 Performing Laboratory: Surgical Pathology Report Performed By: [facility] [CLIA# [id number]] [place] [address] $FTR - - - - - - - - - - - - - - - - - - - - - - - - - - - - - - - - - - - - - - - - (End of report) BRIELLE AMIN MD [facility] Date Jun 16, 2024 - - - - - - - - - - - - - - - - - - - - - - - - - - - - - - - - - - - - - - - - JUAN THOMPSON JR STANDARD FORM 515 ID:[id number] SEX:M :1945 AGE: 78 LOC:[id number] PCP: Sonia Phillips /pablo/ BRIELLE AMIN MD STAFF PATHOLOGIST, PATHOLOGY & LABORATORY [facility] Signed: 06/16/2024 12:06 BRIELLE AMIN [facility] Jun 16, 2024 12:02 PM LR SURGICAL PATHOLOGY REPORT: LOCAL TITLE: LR SURGICAL PATHOLOGY REPORT STANDARD TITLE: PATHOLOGY REPORT DATE OF NOTE: JUN 16, 2024@12:02:40 ENTRY DATE: JUN 16, 2024@12:02:40 AUTHOR: BRIELLE AMIN EXP COSIGNER: URGENCY: STATUS: COMPLETED $APHDR Reporting Lab: [facility] [CLIA# [id number]] [place] [address] - - - - - - - [...] - - - PATHOLOGY REPORT Accession No. [id number] - - - - - - - [...] morphologic correlation see bone marrow biopsy report [id number]. Summary: On CD45 vs. side scatter analysis, [...] MD STAFF PATHOLOGIST, PATHOLOGY & LABORATORY MED [facility] Signed Jun 16, 2024@12:02 Performing Laboratory: Surgical Pathology Report Performed By: [facility] [CLIA# [id number]] [place] [address] $FTR - - - - - - - - - - - - - - - - - - - - - - - - - - - - - - - - - - - - - - - - (End of report) BRIELLE AMIN MD [facility] Date Jun 16, 2024 - - - - - - - - - - - - - - - - - - - - - - - - - - - - - - - - - - - - - - - - JUAN THOMPSON JR STANDARD FORM 515 ID:[id number] SEX:M :1945 AGE: 78 LOC:[id number] PCP: Sonia Phillips /pablo/ BRIELLE AMIN MD STAFF PATHOLOGIST, PATHOLOGY & LABORATORY MED [facility] Signed: 06/16/2024 12:02 BRIELLE AMIN [facility] May 14, 2024 10:47 AM LR SURGICAL PATHOLOGY REPORT: LOCAL TITLE: LR SURGICAL PATHOLOGY REPORT STANDARD TITLE: PATHOLOGY REPORT DATE OF NOTE: MAY 14, 2024@10:47:04 ENTRY DATE: MAY 14, 2024@10:47:04 AUTHOR: VIPUL DASILVA COSIGNER: URGENCY: STATUS: COMPLETED $APHDR Reporting Lab: [facility] [CLIA# [id number]] [place] [address] - - - - - - - [...] Performing Laboratory: Surgical Pathology Report Performed By: [facility] [CLIA# [id number]] [place] [address] $FTR - - - - - - [...] - JUAN THOMPSON JR STANDARD FORM 515 ID:[id number] SEX:M :1945 AGE: 78 LOC:[id number] PCP: Sonia Phillips /pablo/ VIPUL DASILVA MD STAFF PATHOLOGIST Signed: 05/14/2024 10:47 VIPUL DASILVA [facility] Encounter Notes: All associated encounter notes [...] Intact Wristband Removed: Yes /pablo/ ROSANA ORANTES LPN MANAGER PROGRAMS Signed: 06/12/2024 11:37 Receipt Acknowledged By: 06/12/2024 [...] REGISTERED NURSE Signed: 06/12/2024 11:55 ROSANA ORANTES [facility] Jun 12, 2024 10:33 AM INTERNAL [...] Clean, Dry, and Intact Bedrest until: May@11:20 /aneesh ORANTES LPN MANAGER PROGRAMS Signed: 06/12/2024 10:36 ROSANA ORANTES [facility] Jun 12, 2024 10:29 AM HEMATOLOGY [...] consent obtained from the patient, using the [place] approved form. Informed Consent Progress Note containing [...] end of procedure. /pablo/ SAL RODRIGUEZ PHYSICIAN ANGLE DOZER OPERATOR Signed: 06/12/2024 10:45 MARY [place] [facility] Jun 12, 2024 08:51 AM INTERNAL MEDICINE OUTPATIENT NOTE: LOCAL TITLE: MEDICINE CLINIC NURSING NOTE STANDARD TITLE: INTERNAL MEDICINE OUTPATIENT NOTE DATE OF NOTE: JUN 12, 2024@08:51 ENTRY DATE: JUN 12, 2024@08:52:01 AUTHOR: ROSANA ORANTES EXP COSIGNER: URGENCY: STATUS: [...] Information: Primary NOK: SIRIA THOMPSON Relation: SON Esthela [address], [place] [address] Emergency Contact information verified or corrected. Metal Drawer accompanying patient today: anam [phone] /pablo/ ROSANA ORANTES LPN, LPN Signed: 06/12/2024 08:55 06/12/2024 ADDENDUM STATUS: COMPLETED tylenol 1000mg given at 0925 /pablo/ ROSANA ORANTES LPN, LPN Signed: 06/12/2024 09:32 ROSANA ORANTES [facility]
--- OUTSIDE RECORDS SUMMARY | 2024-09-05 10:22 | XMS_ITS | Encounter Summary ---
Author Name [facility] [place] Organization [place] Address [address] [place] [address] Care Team Providers Care Unix Analyst Name Role Phone MARIUSZ PHILLIPS Primary Care [...] Policy [place] MEDICARE (WNR) MEDICARE (M) PART B Sep 26, 2012 PART B [id number] [facility] [phone] JUAN THOMPSON JR PATIENT MEDICARE (WNR) MEDICARE (M) PART A Sep 26, 2012 PART A [id number] [phone] JUAN THOMPSON JR PATIENT Selected Encounter This section includes the information on record at [place] for the Encounter. Date/Time Encounter Type Encounter Description Reason Provider Source Nov 07, 2023 10:30 AM OFFICE O/P EST MOD 30 MIN ENDOCRINOLOGY ICD-10-CM 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 mellitus with diabetic neuropathy, unsp AMANDA ALVAREZ [facility] Encounter Template Text not used by [place] Assessments - Encounter Diagnoses This section includes the primary and secondary diagnoses documented for the Encounter. Date/Time Primary/Secondary Diagnosis Diagnosis Name Provider Source Nov 13, 2023 04:19 PM PRIMARY Type 2 diabetes mellitus with diabetic neuropathy, unsp AMANDA ALVAREZ [facility] Nov 13, 2023 04:19 PM SECONDARY Bariatric surgery status AMANDA ALVAREZ [facility] Nov 13, 2023 04:19 PM SECONDARY Overweight AMANDA ALVAREZ [facility] Plan of Treatment: Future Appointments (+ 6 months) and Future Tests (+/- 45 days) The Plan of Treatment section includes future care activities for the patient from all [place] [facility] This section includes future appointments and future orders which are active, pending or scheduled. Future Appointments This section includes appointments that were scheduled to occur 6 months from the date of the Encounter, up to a maximum of 20 appointments. The data comes from all [place] treatment facilities. Appointment Date/Time Appointment Type Appointme nt Facility Name Nov 20, 2023 09:00 AM AMBULATORY - [place] [facility] December 05, 2023 09:30 AM AMBULAT[place] [facility] Feb 07, 2024 [...] 10:30 AM AMBULATORY - SURGERY [place] [facility] Lab Results: +/- 30 [...] Range Comment Nov 07, 2023 11:14 AM [facility] VIT D 25-OH,TOTAL Specimen Type: SERUM No comment entered. Ordering Provider: ISAEL ALVAREZ Report Released Date/Time: Nov 07, 2023 10:08 AM Reporting Lab: [facility] [address] Performing Lab: [facility] [address] VIT D 25-OH,TOTAL 70 ng/mL H 12-50 Nov 07, 2023 09:38 AM [facility] VITAMIN A Specimen Type: SERUM Comment: Vitamin supplementation within 24 hours prior to blood draw may affect the accuracy of the results. This test was developed and its analytical performance characteristics have been determined by [employer] [place], [place]. It has not been cleared or approved by the U.S. Food and Drug Administration. This assay has been validated pursuant to the CLIA regulations and is used for clinical purposes. Test Performed by [employer] [employer] [place], [address] [place] [address] Devante Meyer M.D., Ph.D., Director of Laboratories , CLIA [id number] Ordering Provider: ISAEL ALVAREZ Report Released Date/Time: Jul 11, 2023 10:23 AM Reporting Lab: [facility] [address] Performing Lab: [address] VITAMIN A 58 ug/dL 38-98 Nov 07, 2023 09:38 AM [facility] HEMOGLOBIN A1C Specimen Type: BLOOD [...] 2023 10:23 AM Reporting Lab: [facility] [address] Performing Lab: [facility] [address] HEMOGLOBIN A1C 6.4 H 4.0-6.0 Oct 09, 2023 08:35 AM [facility] HEMOGLOBIN A1C Specimen Type: BLOOD [...] Aug 29, 2023 04:30 PM Reporting Lab: [facility] [address] Performing Lab: [facility] [address] HEMOGLOBIN A1C 6.4 H 4.0-6.0 Oct 09, 2023 08:35 AM [facility] CBC Specimen Type: BLOOD No comment entered. Ordering Provider: LYUBOV YEUNG Report Released Date/Time: Aug 29, 2023 04:30 PM Reporting Lab: [facility] [address] Performing Lab: [facility] [address] WBC 7.18 10*3/uL 4.0-11.0 RBC 3.94 10*6/uL L 4.6-6.2 HGB 11.7 g/dL L 13.5-17.9 HCT 36.0 L 41-54 MCV 91.4 fL 80-100 MCH 29.7 pg 27-33 MCHC 32.5 g/dL 32.0-37.5 PLT 266 10*3/uL 150-400 MPV 9.7 fL 7.4-10.4 RDW 14.3 11.5-14.5 Oct 09, 2023 08:35 AM [facility] BASIC METABOLIC PANEL+MG Specimen Type: PLASMA No comment entered. Ordering Provider: LYUBOV YEUNG Report Released Date/Time: Aug 29, 2023 04:30 PM Reporting Lab: [facility] [address] Performing Lab: [facility] [address] CREATININE 1.1 mg/dL 0.7-1.2 UREA NITROGEN 22 [...] 97.6 80 118/68 16 94 177.7 27 [facility] Social History: Smoking Status (Most current) [...] 21, 2023 10:30 AM VA-TOBACCO FORMER USER [facility] Tobacco Use History This section includes a history of the smoking, or tobacco-related health factors, that were collected on or before the date of the Encounter. The data comes from the [place] facility where the Encounter took place. Date/Time Smoking Status/Tobacco Use Comment [facility] Aug 21, 2023 10:30 AM [place]-TO[place]AC[place] QU[place] 15 YRS OR MORE [facility] Aug 15, 2022 09:00 AM VA-TOBACCO FORMER USER [facility] Aug 15, 2022 09:00 AM VA-TOBACCO QUIT 15 YRS OR MORE [facility] Aug 21, 2021 01:00 PM VA-TOBACCO FORMER USER [facility] Aug 21, 2021 01:00 PM VA-TOBACCO QUIT 15 YRS OR MORE [facility] Jul 09, 2018 08:58 AM VA-TOBACCO FORMER USER [facility] Jul 09, 2018 08:58 AM VA-TOBACCO QUIT 15 YRS OR MORE [facility] Jul 18, 2017 09:58 AM FORMER TOBACCO USER 7Y OR GREATE R [facility] Aug 14, 2016 10:59 AM FORMER TOBACCO USER 7Y OR GREATE R [facility] Jun 29, 2015 02:03 PM FORMER TOBACCO USER 7Y OR GREATE R [facility] Jan 06, 2014 03:04 PM FORMER TOBACCO USER 7Y OR GREATE R [facility] Jan 04, 2012 08:36 AM FORMER TOBACCO USER 7Y OR GREATE R [facility] Encounter Notes: All associated encounter [...] 10:46 /es/ MIGUEL ANGEL WHITLOCK, ULYSSES Metabolic Wardrobe Custodian --- Original Document --- 11/07/23 [facility] [...] for the followin. Essential hypertension (SNOMED CT 59127293) 2. Major depressive disorder (SNOMED CT 383460474) 3. Generalized anxiety disorder (SNOMED CT 86103897) 4. Primary Obesity 5. Bronchiectasis (SNOMED CT 52032408) 6. Gastroesophageal reflux disease (SNOMED CT 839191414) 7. Bariatric Surgery Status 8. Cataracts (SNOMED CT 13600214) 9. Hypermetropia/Hyperopia 10. Astigmatism, Unspec 11. Presbyopia 12. Atrial fibrillation (SNOMED CT 84803498) 13. Varicose veins of lower extremity 14. Compulsive gambling 15. Bipolar disorder (SNOMED CT 93520028) 16. Mild cognitive disorder 17. Type 2 [...] available. /pablo/ MIGUEL ANGEL WHITLOCK RN Metabolic Wardrobe Custodian Signed: 11/14/2023 10:47 ISAEL ALVAREZ [facility] Nov 07, 2023 11:10 AM ENDOCRINOLOGY ATTENDING [...] for the followin. Essential hypertension (SNOMED CT 10908982) 2. Major depressive disorder (SNOMED CT 280438968) 3. Generalized anxiety disorder (SNOMED CT 45353458) 4. Primary Obesity 5. Bronchiectasis (SNOMED CT 61679553) 6. Gastroesophageal reflux disease (SNOMED CT 492376721) 7. Bariatric Surgery Status 8. Cataracts (SNOMED CT 84509244) 9. Hypermetropia/Hyperopia 10. Astigmatism, Unspec 11. Presbyopia 12. Atrial fibrillation (SNOMED CT 53512322) 13. Varicose veins of lower extremity 14. Compulsive gambling 15. Bipolar disorder (SNOMED CT 38838753) 16. Mild cognitive disorder 17. Type 2 [...] Acknowledged By: 11/14/2023 10:46 /pablo/ MIGUEL ANGEL HWITLOCK RN Metabolic Wardrobe Custodian 11/14/2023 ADDENDUM STATUS: COMPLETED Attempted to contact to f/u on results letter from Dr. Alvarez, no answer. Left a message with direct number to call when he is available. /pablo/ MIGUEL ANGEL WHITLOCK RN Metabolic Wardrobe Custodian Signed: 11/14/2023 10:47 ARABELLA VANESSA JR [facility] Nov 07, 2023 11:10 AM LETTERS: LOCAL TITLE: FOLLOW UP RESULTS LETTER STANDARD TITLE: LETTERS DATE OF NOTE: NOV 07, 2023@11:10 ENTRY DATE: NOV 07, 2023@11:10:52 AUTHOR: ISAEL ALVAREZ EXP COSIGNER: URGENCY: STATUS: COMPLETED [facility] [address] [place] [address] Oct JUAN BEVERLY JR [facility] [address] [facility] [address] Dear : I am writing to inform you of the results of the tests you had done at the [facility]. The tests below were performed and [...] staff or me at the following number: [phone]. Sincerely, ISAEL ALVAREZ MD PHYSICIAN ISAEL ALVAREZ [facility] Nov 07, 2023 10:17 AM INTERNAL MEDICINE [...] LPN LPN Signed: 11/07/2023 10:18 JACKI BOSS [facility]
--- OUTSIDE RECORDS SUMMARY | 2024-09-05 10:22 | XMS_ITS | Encounter Summary ---
Author Name [facility] [place] [facility] [facility] [place] Address [address] [place] [address] Care Team Providers Care Residence Hall Director Name Role Phone SONIA PHILLIPS Primary [...] PART A Sep 26, 2012 PART A [id number] [facility] [phone] JUAN THOMPSON JR PATIENT MEDICARE (WNR) MEDICARE (M) PART B Sep 26, 2012 PART B [id number] [phone] JUAN THOMPSON JR PATIENT Selected Encounter This section includes the information on record at [place] for the Encounter. Date/Time Encounter Type Encounter Description Reason Provider Source Jun 24, 2024 08:00 AM OFF/OP EST NOVEMBER X REQ PHY/QHP PULMONARY/CHEST ICD-10-CM R91.1 Solitary pulmonary nodule ANGEL PARKER [facility] Encounter Template Text not used by [place] Assessments - Encounter Diagnoses This section includes the primary and secondary diagnoses documented for the Encounter. Date/Time Primary/Secondary Diagnosis Diagnosis Name Provider Source Jun 24, 2024 08:09 AM PRIMARY Solitary pulmonary nodule ANGEL PARKER [facility] Plan of Treatment: Future Appointments (+ 6 months) and Future Tests (+/- 45 days) The Plan of Treatment section includes future care activities for the [facility] [place] [facility] This section includes future appointments and [...] 08:30 AM AMBULATORY - NONE [place] [facility] Jul 08, 2024 11:07 AM AMBULATORY - NONE [place] [facility] Jul 13, 2024 10:00 AM AMBULATORY - [place]IC[place] [facility] Jul 16, 2024 07:30 AM AMBUL[place]ORY - [place]ICINE [place] [facility] Jul 16, 2024 08:30 AM [place]ORY [place]IC[place] [facility] Jul 16, 2024 09:00 AM AMBULATORY - [place] [facility] Jul 16, 2024 09:30 AM AMBULATORY - [place]RY [place] [facility] Jul 23, 2024 09:00 AM AMBULATORY - [place]ATRY [place] [facility] Jul 28, 2024 09:00 AM AMBULATORY - NONE [place] [facility] Aug 14, 2024 03:00 PM AMBULATORY - NONE [place] [facility] Aug 18, 2024 10:30 AM AMBULATORY - NONE [place] [facility] Aug 31, 2024 09:00 AM AMBULATORY - PS[place]IATRY [place] [facility] Sep 03, 2024 08:00 AM AMBULATORY - [place]IATRY [place] [facility] Sep 17, 2024 08:00 AM [place]UL[place]ORY - [place]ICINE [place] [facility] Sep 17, 2024 09:00 AM [place]ORY [place]ICINE [place] [facility] Sep 18, 2024 01:00 PM AMBULATORY - PS[place]CHIATRY [place] [facility] Sep 24, 2024 07:00 AM AMBULATORY - NONE [place] [facility] Oct 02, 2024 03:00 PM AMBULATORY - NONE [place] [facility] Oct 07, 2024 09:00 AM AM[place]UL[place]ORY - [place]ICINE [place] [facility] Oct 19, 2024 09:30 AM AMBULATORY - [place]UROLOGY [place] [facility] Active, Pending, and Scheduled Orders This section includes a listing of several types of active, pending, and scheduled orders, including clinic medications orders, diagnostic test orders, procedure orders and consult orders; where the start date of the order is 45 days before the date of the Encounter or 45 days after the date of theEncounter. The data comes from all [place] treatment facilities. 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 Ordering Provider: SARAH STANLEY Report Released Date/Time: Jul 13, 2024 11:12 AM Reporting Lab: [facility] [address] Performing Lab: [facility] [address] BNP 55 pg/mL <99 Jul 13, 2024 11:18 AM [facility] COMPREHENSIVE METABOLIC PANEL+MG Specimen Type: PLASMA No comment entered. Ordering Provider: SARAH STANLEY Report Released Date/Time: Jul 13, 2024 11:12 AM Reporting Lab: [facility] [address] Performing Lab: [facility] [address] CREATININE 1.1 mg/dL 0.7-1.2 UREA NITROGEN 29 [...] 70 >60 Jun 12, 2024 07:22 AM [facility] PHOSPHORUS Specimen Type: PLASMA No comment entered. Ordering Provider: AYANA MICHELLE Report Released Date/Time: May 26, 2024 09:45 AM Reporting Lab: [facility] [address] Performing Lab: [facility] [address] PHOSPHORUS 3.4 mg/dL 2.3-4.3 Jun 12, 2024 07:22 AM [facility] RETICS Specimen Type: BLOOD Comment: Automated Differential Performed Ordering Provider: AYANA MICHELLE Report Released Date/Time: May 26, 2024 09:53 AM Reporting Lab: [facility] [address] Performing Lab: [facility] [address] ABS RETIC 0.0429 0.0300-0.1 000 .RETICULOCYTE 1.06 0.6-2.0 IMMATURE RETIC 5.9 1.0-14.0 .RETICULOCYTE HE 30.5 pg 28.2-36.6 Jun 12, 2024 07:22 AM [facility] COMPREHENSIVE METABOLIC PANEL+MG Specimen Type: PLASMA No comment entered. Ordering Provider: AYANA MICHELLE Report Released Date/Time: May 26, 2024 09:45 AM Reporting Lab: [facility] [address] Performing Lab: [facility] [address] CREATININE 1.0 mg/dL 0.7-1.2 UREA NITROGEN 22 [...] 78 >60 Jun 12, 2024 07:22 AM [facility] CBC & DIFF Specimen Type: BLOOD Comment: Automated Differential Performed Ordering Provider: AYANA MICHELLE Report Released Date/Time: May 26, 2024 09:45 AM Reporting Lab: [facility] [address] Performing Lab: [facility] [address] WBC 6.4 4.0-11.0 RBC 4.05 L 4.60-6.20 [...] pg 28.2-36.6 Jun 03, 2024 11:17 AM [facility] URINALYSIS Specimen Type: URINE No comment entered. Ordering Provider: ELOISE YEUNG Report Released Date/Time: Jun 03, 2024 10:39 AM Reporting Lab: [facility] [address] Performing Lab: [facility] [address] URINE COLOR YELLOW SPECIFIC GRAVITY 1.018 1.003-1.03 [...] FORMER TOBACCO USER 7Y OR MARVAE R [facility] Pathology Reports: +/- 30 [...] the Encounter. The data comes from all [facility] facilities. Date/Time Pathology Report Provider Source Jun 16, 2024 12:06 PM LR SURGICAL PATHOL OGY REPORT: LOCAL TITLE: LR SURGICAL PATHOLOGY REPORT STANDARD TITLE: PATHOLOGY REPORT DATE OF NOTE: JUN 16, 2024@12:06:01 ENTRY DATE: JUN 16, 2024@12:06:01 AUTHOR: BRIELLE OROURKE COSIGNER: URGENCY: STATUS: COMPLETED $APHDR Reporting Lab: [facility] [CLIA# [id number]] [place] [address] - - - - - - - [...] in cassette B. Grossing performed by: DAVID, Keypunch Operators Supervisor Entered by: DAVID, Keypunch Operators Supervisor Grossing confirmed by: Brielle Orourke, Hematopathologist This report includes the results of laboratory tests utilizing Analyte Specific Reagents or commercially available antibodies (Stout and Lambda CISH Probes). These tests have been developed, fully validated, and their optimal performance characteristics determined by the [facility] Laboratory [facility]. Such tests have [...] see also concurrent negative flow cytometry study ([id number]). Imaging studies concerning for possible lytic lesions [...] controls for CD3, CD20, CD34, CD61, CD138, Stout and lambda light chains, and pankeratin are [...] MD STAFF PATHOLOGIST, PATHOLOGY & LABORATORY [facility] Signed Jun 16, 2024@12:06 Performing Laboratory: Surgical Pathology Report Performed By: [facility] [CLIA# [id number]] [place] [address] $FTR - - - - - - - - - - - - - - - - - - - - - - - - - - - - - - - - - - - - - - - - (End of report) [place]RIELLE OROURKE [place] [facility] [place] Jun 16, 2024 - - - - - - - - - - - - - - - - - - - - - - - - - - - - - - - - - - - - - - - - JUAN THOMPSON JR STANDARD FORM 515 ID:[id number] SEX:M :1945 AGE: 78 LOC:[id number] PCP: Sonia Phillips /pablo/ BRIELLE OROURKE MD STAFF PATHOLOGIST, PATHOLOGY & LABORATORY [facility] Signed: 06/16/2024 12:06 BRIELLE OROURKE [facility] Jun 16, 2024 12:02 PM LR SURGICAL PATHOL OGY REPORT: LOCAL TITLE: LR SURGICAL PATHOLOGY REPORT STANDARD TITLE: PATHOLOGY REPORT DATE OF NOTE: JUN 16, 2024@12:02:40 ENTRY DATE: JUN 16, 2024@12:02:40 AUTHOR: BRIELLE OROURKE EXP COSIGNER: URGENCY: STATUS: COMPLETED $APHDR Reporting Lab: [facility] [CLIA# [id number]] [place] [address] - - - - - - - [...] morphologic correlation see bone marrow biopsy report [id number]. Summary: On CD45 vs. side scatter analysis, [...] MD STAFF PATHOLOGIST, PATHOLOGY & LABORATORY [facility] Signed Jun 16, 2024@12:02 Performing Laboratory: Surgical Pathology Report Performed By: [facility] [CLIA# [id number]] [place] [address] $FTR - - - - - - - - - - - - - - - - - - - - - - - - - - - - - - - - - - - - - - - - (End of report) BRIELLE OROURKE [place] [facility] [place] Jun 16, 2024 - - - - - - - - - - - - - - - - - - - - - - - - - - - - - - - - - - - - - - - - JUAN THOMPSON JR STANDARD FORM 515 ID:[id number] SEX:M :1945 AGE: 78 LOC:[id number] PCP: Sonia Phillips /aneesh OROURKE MD STAFF PATHOLOGIST, PATHOLOGY & LABORATORY [facility] Signed: 06/16/2024 12:02 BRIELLE OROURKE [facility] Encounter Notes: All associated [...] today. Patient will be enrolled in the [employer] Lung Nodule Tracking Program and the lung nodule will be tracked with serial chest CT scans following Fleischner guidelines to monitor for growth and/or change suggesting malignancy. Results and plan of follow up chest CTs will be sent to the Primary Care Provider (beginning and ending tracking, pulmonary chest conference and incidental findings). Time spent on E-Consult: 5-10 minutes. /pablo/ LEXIE PARKER RN Staff Nurse/Pulmonary Automotive Alignment Specialist Signed: 06/24/2024 08:09 LEXIE PARKER [facility]
--- OUTSIDE RECORDS SUMMARY | 2024-09-05 10:22 | XMS_ITS | Encounter Summary ---
Author Name [facility] [facility] [place] Address [address] [place] [address] Care Team Providers Care Rural Sociologist Name Role Phone SONIA PHILLIPS Primary Care [...] PART B Sep 26, [id number] [facility] [phone] JUAN THOMPSON JR PATIENT MEDICARE (WNR) MEDICARE (M) PART A Sep 26, 2012 PART A [id number] [phone] JUAN THOMPSON JR PATIENT Selected Encounter This section includes the information on record at [place] for the Encounter. Date/Time Encounter Type Encounter Description Reason Provider Source May 13, 2024 01:00 PM OFFICE O/P [place] 60 MIN ONCOLOGY/TUMOR ICD-10-CM R93.89 Abnormal findings on dx imaging of oth body structures RENUKA JOHNSON [facility] Encounter Template Text not used by [place] Assessments - Encounter Diagnoses This section includes the primary and secondary diagnoses documented for the Encounter. Date/Time Primary/Secondary Diagnosis Diagnosis Name Provider Source May 14, 2024 06:44 PM PRIMARY Abnormal findings on dx imaging of oth body structures RENUKA JOHNSON [facility] Plan of Treatment: Future Appointments [...] 2024 09:45 AM AMBULATORY - NONE [facility] May 26, 2024 09:15 AM [facility] Jun 03[facility] 2024 10:00 AM [facility] Jun 04, 2024 09:30 AM AMBUL[facility] - [facility] [facility] Jun 05, 2024 01:30 PM AMBUL[facility]ORY - [place]IC[place] [facility] Jun 12, 2024 07:30 AM AMBULATORY - NONE [facility] Jun 12, 2024 08:30 AM AM[facility]UL[facility]ORY - [place]ICINE [facility] Jun 23, 2024 10:15 AM AMBULATORY - [place]ICINE [facility] Jul 06, 2024 08:30 AM AMBULATORY - NONE [facility] Jul 08, 2024 11:07 AM AMBULATORY - NONE [facility] [facility] Jul 13, 2024 10:00 AM AMBULATORY - [place]ICINE [facility] Jul 16, 2024 07:30 AM AMBUL[facility]ORY - [place]ICINE [place] Jul 16, 2024 08:30 AM AMBULATORY - [place]ICINE [facility] Jul 16, 2024 09:00 AM AMBULATORY - [place] [facility] Jul 16, 2024 09:30 AM AMBUL[place]ORY [place] [facility] Jul 23, 2024 09:00 AM AMBULATORY - [place]ATRY [place] [facility] Jul 28, 2024 09:00 AM AMBULATORY - NONE [place] [facility] Aug 14, 2024 03:00 PM AMBULATORY - NONE [facility] [facility] Aug 18, 2024 10:30 AM AMBULATORY - NONE [facility] Aug 31, 2024 09:00 AM AMBULATORY - PSYCHIATRY IN [facility] Active, Pending, and Scheduled Orders This section [...] 19, 2024 04:32 PM Consult Order [facility] Cons Employment Director's Choice [facility] Lab Results: +/- 30 days [...] Range Comment Jun 12, 2024 07:22 AM [facility] PHOSPHORUS Specimen Type: PLASMA No comment entered. Ordering Provider: JAVIER MICHELLE Report Released Date/Time: May 26, 2024 09:45 AM Reporting Lab: [facility] [address] Performing Lab: [facility] [address] PHOSPHORUS 3.4 mg/dL 2.3-4.3 Jun 12, 2024 07:22 AM [facility] RETICS Specimen Type: BLOOD Comment: Automated Differential Performed Ordering Provider: JAVIER MICHELLE Report Released Date/Time: May 26, 2024 09:53 AM Reporting Lab: [facility] [address] Performing Lab: [facility] [address] ABS RETIC 0.0429 0.0300-0.1 000 .RETICULOCYTE 1.06 0.6-2.0 IMMATURE RETIC 5.9 1.0-14.0 .RETICULOCYTE HE 30.5 pg 28.2-36.6 Jun 12, 2024 07:22 AM [facility] COMPREHENSIVE METABOLIC PANEL+MG Specimen Type: PLASMA No comment entered. Ordering Provider: JAVIER MICHELLE Report Released Date/Time: May 26, 2024 09:45 AM Reporting Lab: [facility] [address] Performing Lab: [facility] [address] CREATININE 1.0 mg/dL 0.7-1.2 UREA NITROGEN 22 [...] 78 >60 Jun 12, 2024 07:22 AM [facility] CBC & DIFF Specimen Type: BLOOD Comment: Automated Differential Performed Ordering Provider: JAVIER MICHELLE Report Released Date/Time: May 26, 2024 09:45 AM Reporting Lab: [facility] [address] Performing Lab: [facility] [address] WBC 6.4 4.0-11.0 RBC 4.05 L 4.60-6.20 [...] pg 28.2-36.6 Jun 03, 2024 11:17 AM [facility] URINALYSIS Specimen Type: URINE No comment entered. Ordering Provider: LYUBOV YEUNG Report Released Date/Time: Jun 03, 2024 10:39 AM Reporting Lab: [facility] [address] Performing Lab: [facility] [address] URINE COLOR YELLOW SPECIFIC GRAVITY 1.018 1.003-1.03 [...] 75 NEGATIVE May 20, 2024 09:39 AM [facility] FINGERSTICK GLUCOSE Specimen Type: BLOOD Comment: Save Result Ordering Provider: TANK PHILLIPS Report Released Date/Time: May 20, 2024 03:03 PM Reporting Lab: [facility] [address] Performing Lab: [facility] [address] FINGERSTICK GLUCOSE 148 mg/dL H 70-100 May 13, 2024 11:44 AM [facility] KAPPA/LAMBDA LC FREE,RATIO Specimen Type: SERUM [...] therapy of these disorders. Test Performed by [facility], [address] [place] [address] Devante Meyer M.D., Ph.D., Director of Laboratories , [place] [id number] Ordering Provider: RENUKA JOHNSON Report Released Date/Time: Apr 24, 2024 04:08 PM Reporting Lab: [facility] [address] Performing Lab: [address] .KAPPA LT CHAIN,FREE 27.3 mg/L H 3.3-19.4 .LAMBDA LC,FREE 15.8 mg/L 5.7-26.3 .KAPPA/LAMBDA, FREE 1.73 H 0.26-1.65 May 13, 2024 11:44 AM [facility] LD,TOTAL Specimen Type: PLASMA No comment entered. Ordering Provider: RENUKA JOHNSON Report Released Date/Time: Apr 24, 2024 04:08 PM Reporting Lab: [facility] [address] Performing Lab: [facility] [address] LD,TOTAL 141 U/L 125-220 May 13, 2024 11:44 AM [facility] URIC ACID Specimen Type: PLASMA No comment entered. Ordering Provider: RENUKA JOHNSON Report Released Date/Time: Apr 24, 2024 04:08 PM Reporting Lab: [facility] [address] Performing Lab: [facility] [address] URIC ACID 3.1 mg/dL L 3.7-7.7 May 13, 2024 11:44 AM [facility] B 12 Specimen Type: SERUM No comment entered. Ordering Provider: RENUKA JOHNSON Report Released Date/Time: Apr 24, 2024 04:08 PM Reporting Lab: [facility] [address] Performing Lab: [facility] [address] B 12 722 pg/mL 213-816 May 13, 2024 11:44 AM [facility] FOLATE Specimen Type: SERUM No comment entered. Ordering Provider: RENUKA JOHNSON Report Released Date/Time: Apr 24, 2024 04:08 PM Reporting Lab: [facility] [address] Performing Lab: [facility] [address] FOLATE 14.6 ng/mL >7.0 May 13, 2024 11:44 AM [facility] PHOSPHORUS Specimen Type: PLASMA No comment entered. Ordering Provider: RENUKA JOHNSON Report Released Date/Time: Apr 24, 2024 04:08 PM Reporting Lab: [facility] [address] Performing Lab: [facility] [address] PHOSPHORUS 3.3 mg/dL 2.3-4.3 May 13, 2024 11:44 AM [facility] IRON GROUP Specimen Type: SERUM No comment entered. Ordering Provider: RENUKA JOHNSON Report Released Date/Time: Apr 24, 2024 04:08 PM Reporting Lab: [facility] [address] Performing Lab: [facility] [address] IRON 101 ug/dL 65-175 TIBC,CALCULATE D 313 ug/dL 250-425 FERRITIN pending IRON SATURATION 32 20-50 TRANSFERRIN 250 mg/dL 163-382 May 13, 2024 11:44 AM [facility] TOTAL IMMUNOGLOB (IGA,IGG,IGM) Specimen Type: PLASMA No comment entered. Ordering Provider: RENUKA JOHNSON Report Released Date/Time: Apr 24, 2024 04:08 PM Reporting Lab: [facility] [address] Performing Lab: [facility] [address] IGM 78.8 mg/dL 22.0-293.0 IGG 714.3 mg/dL 540.0-18 22 .0 IGA 123.8 mg/dL 63.0-645.0 May 13, 2024 11:44 AM [facility] BETA 2-MICROGLOBULIN Specimen Type: SERUM No comment entered. Ordering Provider: RENUKA JOHNSON Report Released Date/Time: Apr 24, 2024 04:08 PM Reporting Lab: [facility] [address] Performing Lab: [facility] [address] BETA 2-MICROGLOBULI N 3.36 mg/L H 0.97-2.64 May 13, 2024 11:44 AM [facility] CBC & DIFF Specimen Type: BLOOD Comment: Automated Differential Performed Ordering Provider: RENUKA JOHNSON Report Released Date/Time: Apr 24, 2024 04:08 PM Reporting Lab: [facility] [address] Performing Lab: [facility] [address] WBC 8.3 4.0-11.0 RBC 4.04 L 4.60-6.20 [...] 0.0 0.0-0.1 May 13, 2024 11:44 AM [facility] PSA Specimen Type: SERUM No comment entered. Ordering Provider: ABBY MEANS Report Released Date/Time: May 12, 2024 08:28 PM Reporting Lab: [facility] [address] Performing Lab: [facility] [address] PSA 0.49 ng/mL <4.00 May 13, 2024 11:44 AM [facility] TESTOSTERONE Specimen Type: SERUM No comment entered. Ordering Provider: ABBY MEANS Report Released Date/Time: May 12, 2024 08:30 PM Reporting Lab: [facility] [address] Performing Lab: [facility] [address] TESTOSTERONE 534 ng/dL 221-870 May 13, 2024 11:44 AM [facility] COMPREHENSIVE METABOLIC PANEL+MG Specimen Type: PLASMA No comment entered. Ordering Provider: RENUKA JOHNSON Report Released Date/Time: Apr 24, 2024 04:08 PM Reporting Lab: [facility] [address] Performing Lab: [facility] [address] CREATININE 1.0 mg/dL 0.7-1.2 UREA NITROGEN 26 [...] 78 >60 May 13, 2024 11:44 AM [facility] PERIPHERAL SMEAR PATHOLOGIST REVIEW Specimen Type: BLOOD No comment entered. Ordering Provider: RENUKA JOHNSON Report Released Date/Time: May 13, 2024 01:51 PM Reporting Lab: [facility] [address] Performing Lab: [facility] [address] PERIPHERAL SMEAR PATHOLOGIST REVIEW SLIDES MADE Apr 22, 2024 10:41 AM [facility] ELP/IMMFIX,SERUM PANEL Specimen Type: SERUM Comment: Decreased gamma fraction may be seen in certain lymphoproliferat jeff disorders. Recommend submitting a 24 hr urine for ELP and immunofixation tests. Ordering Provider: LYUBOV YEUNG Report Released Date/Time: Apr 22, 2024 10:20 AM Reporting Lab: [facility] [address] Performing Lab: [facility] [address] PROTEIN,TOTAL 6.0 g/dL L 6.4-8.3 .ALBUMIN FRACTION 3.63 g/dL L 3.66-4.78 .ALPHA 1 FRACTION 0.37 g/dL 0.14-0.38 .ALPHA 2 FRACTION 0.81 g/dL 0.50-0.90 .BETA 1 FRACTION 0.34 g/dL 0.33-0.55 .BETA 2 FRACTION 0.28 g/dL 0.20-0.52 .GAMMA FRACTION 0.57 g/dL L 0.58-1.72 .TOTAL PROTEIN 6.0 g/dL 6.0-8.3 .INTERPRETATIO N NO MONOCLONALS DETECTED Apr 22, 2024 10:32 AM [facility] ELP/IMMFIX,URINE RANDOM PANEL Specimen Type: URINE No comment entered. Ordering Provider: LYUBOV YEUNG Report Released Date/Time: Apr 22, 2024 10:20 AM Reporting Lab: [facility] [address] Performing Lab: [facility] [address] PROTEIN,T. RANDOM UR <6.8 mg/dL <14.0 .INTERPRETATIO N,UR NO MONOCLONALS DETECTED Apr 22, 2024 08:15 AM [facility] BASIC METABOLIC PANEL+MG Specimen Type: PLASMA No comment entered. Ordering Provider: LYUBOV YEUNG Report Released Date/Time: Oct 09, 2023 11:10 AM Reporting Lab: [facility] [address] Performing Lab: [facility] [address] CREATININE 1.0 mg/dL 0.7-1.2 UREA NITROGEN 18 mg/dL 8-26 GLUCOSE 217 mg/dL H 70-100 SODIUM 144 mmol/L 136-145 POTASSIUM 4.3 mmol/L 3.5-5.1 CHLORIDE 106 mmol/L 98-107 CO2 31 mmol/L H 22-29 CALCIUM 9.6 mg/dL 8.4-10.2 MAGNESIUM 1.4 mg/dL L 1.6-2.6 ANION GAP 7 mmol/L 5-15 .CREAT EGFR(CKD-EPI) 78 >60 Apr 22, 2024 08:15 AM [facility] CBC Specimen Type: BLOOD No comment entered. Ordering Provider: LYUBOV YEUNG Report Released Date/Time: Oct 09, 2023 11:10 AM Reporting Lab: [facility] [address] Performing Lab: [facility] [address] WBC 9.8 4.0-11.0 RBC 4.45 L 4.60-6.20 HGB 13.0 g/dL L 13.5-17.9 HCT 40.2 L 41-54 MCV 90.3 fL 80-100 MCH 29.2 pg 27-33 MCHC 32.3 g/dL 32.0-37.5 PLT 328 150-400 MPV 9.7 fL 9.1-13.0 RDW 14.3 11.5-14.5 Apr 20, 2024 08:28 AM [facility] POC CREATININE Specimen Type: BLOOD No comment entered. Ordering Provider: TANK PHILLIPS Report Released Date/Time: Apr 20, 2024 08:30 AM Reporting Lab: [facility] [address] Performing Lab: [facility] [address] POC CREATININE 1.1 mg/dL 0.6-1.3 Vital Signs: All taken on the encounter date This section contains inpatient and outpatient Vital Signs collected on the date of the Encounter. Date/Time Temperature Pulse Blood Pressure Respiratory Rate SP02 Pain Height Weight Body Mass Index Source May 13, 2024 12:38 PM 98.6 105 120/80 17 97 4 162.3 25 M [facility] Social History: Smoking Status (Most [...] 21, 2023 10:30 AM VA-TOBACCO FORMER USER [facility] Tobacco Use History This section includes a history of the smoking, or tobacco-related health factors, that were collected on or before the date of the Encounter. The data comes from the [place] facility where the Encounter took place. Date/Time Smoking Status/Tobacco Use Comment F acility Aug 21, 2023 10:30 AM VA-TOBACCO QUIT 15 YRS OR MORE [facility] Aug 15, 2022 09:00 AM VA-TOBACCO FORMER USER [facility] Aug 15, 2022 09:00 AM VA-TOBACCO QUIT 15 YRS OR MORE [facility] Aug 21, 2021 01:00 PM VA-TOBACCO FORMER USER [facility] Aug 21, 2021 01:00 PM VA-TOBACCO QUIT 15 YRS OR MORE [facility] Jul 09, 2018 08:58 AM VA-TOBACCO FORMER USER [facility] Jul 09, 2018 08:58 AM VA-TOBACCO QUIT 15 YRS OR MORE [facility] Jul 18, 2017 09:58 AM FORMER TOBACCO USER 7Y OR GREATE R [facility] Aug 14, 2016 10:59 AM FORMER TOBACCO USER 7Y OR GREATE R [facility] Jun 29, 2015 02:03 PM FORMER TOBACCO USER 7Y OR GREATE R [facility] Jan 06, 2014 03:04 PM FORMER TOBACCO USER 7Y OR GREATE R [facility] Jan 04, 2012 08:36 AM FORMER TOBACCO USER 7Y OR GREATE R [facility] Radiology Reports: +/- 30 days [...] [place] facilities. Date/Time Radiology Report Provider Source May 20, 2024 09:[address] BODY W/O CONTRAST (P): DONNA,JUAN BEVERLY [id number] -1945 M Ex Date: MAY 20, 2024@09:14 Req Phys: LYUBOV YEUNG Loc: [facility] APACT L RES 03 WH 4F (Req' Img Loc: NUC MED Service: [place] [address] (Case [id number] COMPLETE) SKULL-THIGH PET IMAGE W/CT (NM Detailed) CPT:47529 Reason for Study: eval for malignancy (Case [...] pager listed below: User placing orders pager: [phone] LAST CREATININE 1.0 (04/22/24) Report Status: Verified Date Reported: MAY 20, 2024 Date Verified: MAY 20, 2024 Back Roller E-Sig:/ES/RUFUS GROVES MD, FACR, CCD Report: PET/CT [...] Staff: RUFUS GROVES MD, FACR, STAFF RADIOLOGIST (Back Roller) /BSF RUFUS GROVES [facility] Apr 20, 2024 08:[address] (CAP) CHEST/ABD/PELVIS (P): JUAN THOMPSON [id number] -1945 M Exm Date: APR 20, 2024@08:07 Req Phys: RACHEL WATSON Pat Loc: [facility] APACT L RES 03 WH 4F (Req' Img Loc: CT IMAGING Service: [place] [address] (Case [id number] COMPLETE) CT (CAP) CHEST W CONTRAST (CT Detailed) CPT:08677 Contrast Media : Non-ionic Iodinated Reason for Study: 78M with weight loss & lymphadenopathy, CT for malignancy eval (Case 148 COMPLETE) CT (CAP) ABDOMEN/PELVIS W CONTRAS(CT Detailed) CPT:86961 Contrast Media : Non-ionic Iodinated Clinical History: [...] any questions or notifications of critical findings: [phone] If ordering provider is a trainee, enter [...] PLASMA .CREAT EGFR(CKD-E 63 Ref: >=60 Allergies: ([place] only) SULFAMETHOXAZOLE (Feb 07, 2022) EMPAGLIFLOZIN (Jun 06, 2022) Report Status: Verified Date Reported: APR 20, 2024 Date Verified: APR 20, 2024 Back Roller E-Sig:/ES/JONATAN MILLER MD Report: CT CHEST, ABDOMEN [...] Primary Interpreting Staff: JONATAN MILLER MD, RADIOLOGIST (Back Roller) /JONATAN GOMEZ [facility] Pathology Reports: +/- 30 days [...] comes from all [place] treatment facilities. Date/Time Pathology Report Provider Source May 14, 2024 10:47 AM LR SURGICAL PATHOLOGY REPORT: LOCAL TITLE: LR SURGICAL PATHOLOGY REPORT STANDARD TITLE: PATHOLOGY REPORT DATE OF NOTE: MAY 14, 2024@10:47:04 ENTRY DATE: MAY 14, 2024@10:47:04 AUTHOR: VIPUL DASILVA COSIGNER: URGENCY: STATUS: COMPLETED $APHDR Reporting Lab: [facility] [CLIA# [id number]] [place] [address] - - - - - - - [...] Performing Laboratory: Surgical Pathology Report Performed By: [facility] [CLIA# [id number]] [place] [address] $FTR - - - - - - [...] - JUAN THOMPSON JR STANDARD FORM 515 ID:[id number] SEX:M :1945 AGE: 78 LOC:98924 PCP: Sonia Phillips /pablo/ VIPUL DASILVA MD STAFF PATHOLOGIST Signed: 05/14/2024 10:47 VIPUL DASILVA [facility] Encounter Notes: All associated encounter [...] for the followin. Essential hypertension (SNOMED CT 97363087) 2. Major depressive disorder (SNOMED CT 493061705) 3. Generalized anxiety disorder (SNOMED CT 26990650) 4. Primary Obesity 5. Bronchiectasis (SNOMED CT 98466853) 6. Gastroesophageal reflux disease (SNOMED CT 640349331) 7. Bariatric Surgery Status 8. Cataracts (SNOMED CT 65973739) 9. Hypermetropia/Hyperopia 10. Astigmatism, Unspec 11. Presbyopia 12. Atrial fibrillation (SNOMED CT 86751514) 13. Varicose veins of lower extremity 14. Compulsive gambling 15. Bipolar disorder (SNOMED CT 97061407) 16. Mild cognitive disorder 17. Type 2 [...] at home. 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 REVIEW OF SYSTEMS: All other [...] with walker, Lives with assited care living [facility] due to cognitive issues) ASSESSMENT: A 78 [...] follow vs. biopsy. /pablo/ JAVIER MICHELLE, MSN, STRAWHAT SIZER STRAWHAT SIZER Signed: 05/25/2024 17:36 ABBY MEANS [facility] May 13, 2024 12:41 PM INTERNAL [...] medications or herbals. Hematology/Oncology Clinic Has the [place] had concerns about any of the items [...] Acknowledged By: 05/13/2024 13:08 /pablo/ TISHA KRUSE, JAILKEEPER Primary Care Ux Engineer ЕЛЕНА LAWTON [facility]
--- OUTSIDE RECORDS SUMMARY | 2024-09-05 10:22 | XMS_ITS | Encounter Summary ---
Author Name [facility] [facility] [place] Address [address] [place] [address] Care Team Providers Care Banquet Pilot Name Role Phone MARIUSZ PHILLIPS Primary Care [...] PART B Sep 26, 2012 PART B [id number] [facility] [phone] GIO THOMPSON JR PATIENT MEDICARE (WNR) MEDICARE (M) PART A Sep 26, 2012 PART A [id number] [phone] GIO THOMPSON JR PATIENT Selected Encounter This section includes the information on record at [place] for the Encounter. Date/Time Encounter Type Encounter Description Reason Pro vider Source Jul 23, 2024 09:00 AM OFFICE O/P EST HI 40 MIN PSYCHOGERIATRIC - INDIVIDUAL ICD-10-CM F31.81 Bipolar II disorder JOSE HONEYCUTT [facility] Encounter Template Text not used by [place] Assessments - Encounter Diagnoses This section includes the primary and secondary diagnoses documented for the Encounter. Date/Time Primary/Secondary Diagnosis Diagnosis Name Provider Source Jul 23, 2024 04:24 PM PRIMARY Bipolar II disorder JANETTE HONEYCUTT IN [facility] Jul 23, 2024 04:24 PM SECONDARY Unspecified dementia, mild, with other behavioral disturb JANETTE HONEYCUTT IN [facility] Plan of Treatment: Future Appointments (+ 6 months) and Future Tests (+/- 45 days) The Plan of Treatment section includes [facility] care activities for the [facility] [place] [facility] This section includes future appointments and future orders which are active, pending or scheduled. Future Appointments This section includes appointments that were scheduled to occur 6 months from the date of the Encounter, up to a maximum of 20 appointments. The data comes from all [place] treatment facilities. Appointment Date/Time Appointment Type Appointme nt Facility Name Jul 28, 2024 09:00 AM AMB[place]ATORY - NONE [place] [facility] Aug 14, 2024 03:00 PM AM[place] [facility] Aug 18, 2024 10:30 AM AMB[place]ORY - NONE [place] [facility] Aug 31, 2024 09:00 AM AMBULATORY - PSYCHIATRY [facility] Sep 03, 2024 08:00 AM AMBULATORY - PSYCHIATRY [facility] Sep 17, 2024 08:00 AM [facility] Sep 17, 2024 09:00 AM [facility] Sep 18, 2024 01:00 PM [facility] [place] [facility] Sep 24, 2024 07:00 AM AMBULATORY - NONE [place] [facility] Oct 02, 2024 03:00 PM AMBULATORY - NONE [place] [facility] Oct 07, 2024 09:00 AM [facility] Oct 19, 2024 09:30 AM AMBULATORY - NEUROLOGY [facility] Active, Pending, and Scheduled [...] PM Consult Order [facility]AR MEDICINE Cons Assistant Program Manager's Choice [facility] Aug 26, 2024 07:52 AM Consult Order [facility] Cons Assistant Program Manager's [facility] Lab Results: +/- 30 days [...] Range Comment Jul 13, 2024 11:18 AM [facility] BNP Specimen Type: PLASMA No comment entered. Ordering Provider: SARAH STANLEY Report Released Date/Time: Jul 13, 2024 11:12 AM Reporting Lab: [facility] [id number] Performing Lab: [facility] [id number] BNP 55 pg/mL <99 Jul 13, 2024 11:18 AM [facility] COMPREHENSIVE METABOLIC PANEL+MG Specimen Type: PLASMA No comment entered. Ordering Provider: SARAH STANLEY Report Released Date/Time: Jul 13, 2024 11:12 AM Reporting Lab: [facility] [id number] Performing Lab: [facility] [id number] CREATININE 1.1 mg/dL 0.7-1.2 UREA NITROGEN 29 [...] 21, 2023 10:30 AM VA-TOBACCO FORMER USER [facility] Tobacco Use History This section includes a history of the smoking, or tobacco-related health factors, that were collected on or before the date of the Encounter. The data comes from the [facility] where the Encounter took place. Date/Time Smoking Status/Tobacco Use Comment F acility Aug 21, 2023 10:30 AM VA-TOBACCO QUIT 15 YRS OR MORE [facility] Aug 15, 2022 09:00 AM VA-TOBACCO FORMER USER [facility] Aug 15, 2022 09:00 AM VA-TOBACCO QUIT [...] FORMER TOBACCO USER 7Y OR GREATE R [facility] Aug 14, 2016 10:59 AM FORMER TOBACCO USER 7Y OR GREATE R [facility] Jun 29, 2015 02:03 PM FORMER TOBACCO USER 7Y OR GREATE R [facility] Jan 06, 2014 03:04 PM FORMER TOBACCO USER 7Y OR GREATE R [facility] Jan 04, 2012 08:36 AM FORMER TOBACCO USER 7Y OR GREATE R [facility] Encounter Notes: All associated encounter notes This section contains the clinical notes associated to the Encounter. Date/Time Encounter Note(s) Provider Source Jul 23, 2024 01:01 PM PSYCHIATRY E & M NOTE: LOCAL TITLE: PSYCHIATRIC EVALUATION & MANAGEMENT STANDARD TITLE: PSYCHIATRY E & M NOTE DATE OF NOTE: JUL 23, 2024@13:01 ENTRY DATE: JUL 23, 2024@13:02:29 AUTHOR: FLAVIA SMALL COSIGNER: LORETA HONEYCUTT URGENCY: STATUS: COMPLETED PSYCHIATRIC EVALUATION & MANAGEMENT Has ADDENDA PSYCHIATRIC EVALUATION AND MANAGEMENT FOLLOW UP VISIT Duration: 30 minutes Time spent performing psychotherapy services: 16-30 minutes INTERVAL HISTORY: Marie was last seen in clinic on 06/04/24. At that time he was doing well, with a stable mood and no symptoms of psychosis or other mood/ thought disorder. 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 Plan at that time to decrease aripiprazole to 15mg qHS, continue venlafaxine 150mg qday, and obtain a Nikolay scan and repeat MoCA at subsequent visit. CURRENT MEDICATIONS: Reviewed in chart. MOST RECENT VITALS: Blood Pressure: 114/69 (07/13/2024 10:07) Pulse: 65 (07/13/2024 09:56) Temperature: 97.9 F [36.6 C] (07/13/2024 09:56) Weight: 175 lb [79.38 kg] (07/13/2024 09:56) Body Mass Index: 26.7 INTERVAL HISTORY: Patient reports he is doing OK. Reports he is taking his medications as prescribed and has a nurse who sets up his medications for him every 2 weeks. He reports he initially wanted to continue to set up his medications himself, but was at odds with his nurse when they both were attempting to set up his medications and he now allows them to do it. Reports medications are going OK- reports he has low magnesium and so at times will awaken with muscle shaking and cramping, and he takes a supplement. 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 Reports he is living at a [facility] facility and denies problems caring for himself. He does endorse ongoing disrupted sleep and ongoing vivid dreams at times but does not describe any particularly distressing dreams. Denies any ongoing visual hallucinations or ongoing ideas of reference. He does recall in the past feeling that he experienced Emma Esparza on [facility] speaking with him and indicates this was in her studio, and reports this experience felt real to me though acknowledges today that this apparent experience was due to psychosis. Denies similar events since then, denies ongoing visions of his mother (who has ) in his apartment but reports he sometimes feels her presence. He does agree that this seems to be more related to comfort. Gio otherwise reports that his mood was a bit difficult with Ronald- reports he tried to call his son whom he hasn't spoken to in years on [address] [place] but his son did not answer and his voicemail box was full. Reports he has been making positive connections with others which has been helpful to ease loneliness. Gio otherwise does referece belief that I expect to live to 89 years old and reports this is because he grew up with the daughter of the inventor of the pacemaker, though unclear the extent to which this odd belief may have been made in a somewhat joking/ exagerrated manner and no other possible delusional beliefs or symptoms of psychosis noted on exam. Gio completed a MoCA exam today with a score of 28/30 (noted below, with 5/5 on memory testing/ delayed recall) and expresses understanding that this is a good score, though with his report of possible cognitive impairment (trouble using his phone, some apparent functional short-term memory impairment despite doing well on the MocCA) he would likely benefit from further testing for clarification of his functioning in specific cognitive domains. He was agreeable to scheduling repeat Neuropsychological training and agreeable to decreasing his Abilify to 15mg today (had not yet decreased dose from last visit due to receiving Guardian approval for medication change last week). He was counselled on need to monitor for possible worse mood or return of symptoms of psychosis with decreased Abilify dose. MENTAL STATUS EXAM: General: Cooperative, no acute distress, slow gait with reduced arm swing, uses walker at home Eye Contact: Good Psychomotor Activity: WNL (Within normal limits) Abnormal Involuntary Movements: None. Mild tremor at mouth intermittently noted but no other tremors noted Speech: Regular rate and rhythm, soft at baseline Mood: Euthymic Affect: appropriate, mood congruent Thought Process: logical, organized Thought Content: Denies SI (Suicidal Ideation), HI(Homicidal Ideation) Perceptual disturbances: No AH(Auditory Hallucinations),VH(Visual Hallucinations), odd belief noted on exam but no overt delusional content Insight: Fair Judgment: Fair Attention/Concentration: Intact for [...] engage in the assessment; this may be field representative/health education of his day-to-day functioning. Given his complex [...] as Alzheimer's disease is less likely. The Marmora's presentation is complex and symptoms may persist and progress, as his history increases his risk for future decline. Further evaluation of his psychiatric symptoms and intervention for management of diabetes and sleep disruption is encouraged. MoCA (09/2021) MoCA (07/23/2024): detailed below MoCA (Version 8.1): Completed on 07/23/2024 Visuospatial/executive: 11/30 Namin/3 Registration (not scored): 11/30 trial 1, 11/30 trial 2 Digit span: 08/30 Vigilance: 07/29 Serial 7s: 09/28 Repetition: 08/30 Fluency: 0 (7 'f' words, +2 repetitions, 0 rule violations) Abstraction: 08/30 Delayed recall: 11/30 (+N/A w/ semantic clue, +N/A w/ MC) Orientation: 01/01 TOTAL: __ LABS 07/11/2023 HEMOGLOBIN A1C 6.5 H [...] delirium secondary to hyperglycemia which resulted in jail admission and guardianship in 2021. His function [...] consider repeat neuropsych testing for diagnostic clarity. TODAY: Patient with a stable mood and is without overt ongoing symptoms of psychosis. He endorses ongoing trouble with short-term memory though with a very good MoCA score on evaluation today of 28/30, with perfect delayed recall. Plan for repeat neuropsychological testing to further evaluate specific cognitive domains. He has not yet started the decreased aripiprazole dose of 15mg qHS though is agreeable to decreasing the dose now that permission has been received from his guardian Nathalie. Will continue Venlafaxine 150mg qday. Continue to await Nikolay scan for further evaluation of possible PD/ LBD, as patient does endorse some cognitive problems and with a history of VH, and does demonstrate some gait slowing and stiffness. DIAGNOSIS: #Bipolar II Disorder, most recent episode [...] scan suggestive of PD/LBD #Major Neurocognitive Disorder -continue to consider starting Acetocholinesterase inhibitor if patient has further evidence of functional impairment - placing referral for Neuropsychological testing - awaiting Nikolay scan #Bipolar II Disorder vs recurrent MDD -Continue Venlafaxine 150 mg po daily. #Metabolic Lab monitoring: HgA1c 6.5/Lipid panel WNL 06/2023 HgA1c 6.4 10/2022 -AIMS monitoring: AIMS 0 on 10/03/23 -RTC in 6 weeks -Collateral: Guardian: Nathalie Cline: SUICIDE RISK [...] the patient who acknowledges agreement and understanding. /pablo/ FLAVIA SMALL Resident Signed: 07/23/2024 13:38 /pablo/ LORETA HONEYCUTT DO STAFF PSYCHIATRIST Cosigned: 07/23/2024 16:24 07/23/2024 ADDENDUM STATUS: COMPLETED I agree with the assessment and plan as documented above. I was present during evaluation and provided direct supervision. Hayleystephanie, Patient had psychosis around December 2022 noted on neuropsychological assessment. 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 Patient mood has been very stable and so will gradually decrease apripriprazole slowly and monitor for worsening mood symptoms, it is possible he may require adjunctive treatment with antipsychotic indefinitely if symptoms recur. /pablo/ LORETA HONEYCUTT DO STAFF PSYCHIATRIST Signed: 07/23/2024 16:32 09/03/2024 ADDENDUM STATUS: COMPLETED 02/2024: HgA1c 6.6; lipid panel WNL, B12/folate WNL /pablo/ LORETA HONEYCUTT DO STAFF PSYCHIATRIST Signed: 09/03/2024 08:13 FLAVIA SMALL [facility]
--- OUTSIDE RECORDS SUMMARY | 2024-09-05 10:22 | XMS_ITS | Encounter Summary ---
Author Name [facility] [place] Organization [facility] [place] Address [address] [place] [address] Care Team Providers Care Bessemer Regulator Name Role Phone MARIUSZ PHILLIPS Primary Care [...] PART A Sep 26, 2012 PART A [id number] [phone] JUAN THOMPSON JR PATIENT MEDICARE (WNR) MEDICARE (M) PART B Sep 26, 2012 PART B [id number] [phone] JUAN THOMPSON JR PATIENT Selected Encounter This [...] activities for the [facility] [place] [facility] This section includes future appointments and future orders which are active, pending or scheduled. Future Appointments This section includes appointments that were scheduled to occur 6 months from the date of the Encounter, up to a maximum of 20 appointments. The data comes from all [place] treatment [facility]. Appointment Date/Time Appointment Type Appointme nt Facility Name Mar 05, 2024 07:30 AM AMBUL[place]ORY [place] [facility] Mar 05, 2024 08:30 AM [place]IC[place] [facility] Mar 05, 2024 10:00 AM [place]IC[place] [facility] Mar 09, 2024 08:45 AM [place] [facility] Mar 16, 2024 09:00 AM [place] [facility] Mar 16, 2024 10:15 AM [place] [facility] Mar 27, 2024 07:00 AM [place] [facility] Mar 31, 2024 07:00 AM [place] [facility] Apr 20, 2024 08:00 AM [place] [facility] Apr 20, 2024 09:30 AM [place] [facility] Apr 22, 2024 09:00 AM [place]ONE [place] [facility] Apr 22, 2024 10:00 AM [place]IC[place] [facility] Apr 29, 2024 10:30 [...] 10:00 AM [place]ORY [place]IC[place] [facility] Jun 04, 2024 09:30 AM [place] [facility] Jun 05, 2024 01:30 PM [facility] Active, Pending, and Scheduled Orders This section [...] Order CARDIAC EC HO OUTPT-ALL SITES Cons [employer]er[employer] Choice [facility] Lab Results: +/- [...] Range Comment Mar 05, 2024 09:55 AM [facility] VITAMIN B-1,BLOOD Specimen Type: BLOOD Comment: Vitamin supplementation within 24 hours prior to blood draw may affect the accuracy of the results. This test was developed and its analytical performance characteristics have been determined [place] It has not been cleared or approved by the U.S. Food and Drug Administration. This assay has been validated pursuant to the CLIA regulations and is used for clinical purposes. Test Performed by [facility], [employer], [address] [place] [address] Devante Meyer M.D., Ph.D., Director of Laboratories , CLIA [id number] Ordering Provider: INDERJIT MORGAN Report Released Date/Time: Mar 05, 2024 09:40 AM Reporting Lab: [facility] [phone] Performing Lab: [address] VITAMIN B-1,BLOOD 125 nmol/L 78-185 Mar 05, 2024 09:55 AM [facility] VITAMIN A Specimen Type: SERUM Comment: Vitamin supplementation within 24 hours prior to blood draw may affect the accuracy of the results. This test was developed and its analytical performance characteristics have been determined by [employer] [place], [place]. It has not been cleared or approved by the U.S. Food and Drug Administration. This assay has been validated pursuant to the CLIA regulations and is used for clinical purposes. Test Performed by [employer], [address] [place] [address] Devante Meyer M.D., Ph.D., Director of Laboratories , CLIA [id number] Ordering Provider: INDERJIT MORGAN Report Released Date/Time: Mar 05, 2024 09:40 AM Reporting Lab: [facility] [phone] Performing Lab: [address] VITAMIN A 54 ug/dL 38-98 Mar 05, 2024 09:55 AM [facility] ZINC Specimen Type: SERUM Comment: This test was developed and its analytical performance characteristics have been determined by [employer] [place], [place]. It has not been cleared or approved by the U.S. Food and Drug Administration. This assay has been validated pursuant to the CLIA regulations and is used for clinical purposes. Test Performed by [employer] [place], [employer], [address] [place] [address] Devante Meyer M.D., Ph.D., Director of Laboratories , CLIA [id number] Ordering Provider: INDERJIT MORGAN Report Released Date/Time: Mar 05, 2024 09:40 AM Reporting Lab: [facility] [phone] Performing Lab: [address] ZINC 96 ug/dL 60-130 Mar 05, 2024 09:55 AM [facility] COPPER Specimen Type: PLASMA Comment: This test was developed and its analytical performance characteristics have been determined by [employer] [place], [place]. It has not been cleared or approved by the U.S. Food and Drug Administration. This assay has been validated pursuant to the CLIA regulations and is used for clinical purposes. Test Performed by [employer], [address] [place] [address] Devante Meyer M.D., Ph.D., Director of Laboratories , [facility] [id number] Ordering Provider: INDERJIT MORGAN Report Released Date/Time: Mar 05, 2024 09:40 AM Reporting Lab: [facility] [id number] Performing Lab: [facility] [address] [facility] [address] COPPER 99 ug/dL 70-175 Mar 05, 2024 09:55 AM [facility] TSH W/REFLEX TO FREE T4 Specimen Type: PLASMA No comment entered. Ordering Provider: INDERJIT MORGAN Report Released Date/Time: Mar 05, 2024 09:40 AM Reporting Lab: [facility] [phone] Performing Lab: [facility] [phone] TSH 2.01 u[IU]/mL 0.35-4.94 Mar 05, 2024 09:55 AM [facility] FERRITIN Specimen Type: SERUM No comment entered. Ordering Provider: INDERJIT MORGAN Report Released Date/Time: Mar 05, 2024 09:40 AM Reporting Lab: [facility] [phone] Performing Lab: [facility] [address] FERRITIN 191.6 ng/mL 21.8-274.7 Mar 05, 2024 09:55 AM [facility] PRE-ALBUMIN Specimen Type: SERUM No comment entered. Ordering Provider: INDERJIT MORGAN Report Released Date/Time: Mar 05, 2024 09:40 AM Reporting Lab: [facility] [phone] Performing Lab: [facility] [phone] PRE-ALBUMIN 19.9 mg/dL 14.0-45.0 Mar 05, 2024 09:55 AM [facility] B 12 Specimen Type: PLASMA No comment entered. Ordering Provider: INDERJIT MORGAN Report Released Date/Time: Mar 05, 2024 09:40 AM Reporting Lab: [facility] [phone] Performing Lab: [facility] [address] B 12 864 pg/mL H 213-816 Mar 05, 2024 09:55 AM [facility] LIPID PANEL,NON-FASTING Specimen Type: PLASMA No comment entered. Ordering Provider: INDERJIT MORGAN Report Released Date/Time: Mar 05, 2024 09:40 AM Reporting Lab: [facility] [phone] Performing Lab: [facility] [address] CHOLESTEROL 111 mg/dL <199 .HDL 45 mg/dL >40 LDL CALCULATION 54 mg/dL <99 VLDL CALCULATION 12 mg/dL <29 NON HDL CHOLESTEROL 66 mg/dL <129 TRIG(NON FASTING) 60 mg/dL <149 Mar 05, 2024 09:55 AM [facility] FOLATE Specimen Type: SERUM No comment entered. Ordering Provider: INDERJIT MORGAN Report Released Date/Time: Mar 05, 2024 09:40 AM Reporting Lab: [facility] [phone] Performing Lab: [facility] [address] FOLATE 14.5 ng/mL >7.0 Mar 05, 2024 09:55 AM [facility] VIT D 25-OH,TOTAL Specimen Type: SERUM No comment entered. Ordering Provider: INDERJIT MORGAN Report Released Date/Time: Mar 05, 2024 09:40 AM Reporting Lab: [facility] [phone] Performing Lab: [facility] [address] VIT D 25-OH,TOTAL 71 ng/mL H 12-50 Mar 05, 2024 09:55 AM [facility] COMPREHENSIVE METABOLIC PANEL+MG Specimen Type: PLASMA No comment entered. Ordering Provider: INDERJIT MORGAN Report Released Date/Time: Mar 05, 2024 09:40 AM Reporting Lab: [facility] [address] Performing Lab: [facility] [address] CREATININE 1.1 mg/dL 0.7-1.2 UREA NITROGEN 19 [...] 70 >60 Mar 05, 2024 09:55 AM [facility] CALCIUM Specimen Type: PLASMA No comment entered. Ordering Provider: INDERJIT MORGAN Report Released Date/Time: Mar 05, 2024 09:40 AM Reporting Lab: [facility] [phone] Performing Lab: [facility] [address] CALCIUM 9.6 mg/dL 8.4-10.2 Mar 05, 2024 09:55 AM [facility] CBC & DIFF Specimen Type: BLOOD Comment: Automated Differential Performed Ordering Provider: INDERJIT MORGAN Report Released Date/Time: Mar 05, 2024 09:40 AM Reporting Lab: [facility] [phone] Performing Lab: [facility] [address] WBC 6.85 10*3/uL 4.0-11.0 RBC 4.20 10*6/uL [...] 10*3/uL 0-0.1 Mar 05, 2024 09:55 AM [facility] MAGNESIUM Specimen Type: PLASMA No comment entered. Ordering Provider: INDERJIT MORGAN Report Released Date/Time: Mar 05, 2024 09:40 AM Reporting Lab: [facility] [address] Performing Lab: [place] [phone] MAGNESIUM 1.4 mg/dL L 1.6-2.6 Mar 05, 2024 09:55 AM [facility] IRON GROUP Specimen Type: SERUM No comment entered. Ordering Provider: INDERJIT MORGAN Report Released Date/Time: Mar 05, 2024 09:40 AM Reporting Lab: [facility] [address] Performing Lab: [place] [phone] IRON 59 ug/dL L 65-175 TIBC,CALCULATE D 258 ug/dL 250-425 FERRITIN 191.6 ng/mL 21.8-274.7 IRON SATURATION 23 20-50 TRANSFERRIN 206 mg/dL 163-382 Mar 05, 2024 09:55 AM [facility] PTH-N-TACT Specimen Type: SERUM No comment entered. Ordering Provider: INDERJIT MORGAN Report Released Date/Time: Mar 05, 2024 09:40 AM Reporting Lab: [facility] [phone] Performing Lab: [facility] [address] PTH-N-TACT 26.5 pg/mL 8.7-77.1 Mar 05, 2024 09:54 AM [facility] VITAMIN A Specimen Type: SERUM Comment: Vitamin supplementation within 24 hours prior to blood draw may affect the accuracy of the results. This test was developed and its analytical performance characteristics have been determined by [employer] [place], [place]. It has not been cleared or approved by the U.S. Food and Drug Administration. This assay has been validated pursuant to the CLIA regulations and is used for clinical purposes. Test Performed by [employer] [place], [employer] [facility], [address] [place], [place] Devante Meyer M.D., Ph.D., Director of Laboratories , [facility] [id number] Ordering Provider: INDERJIT MORGAN Report Released Date/Time: Mar 05, 2024 09:40 AM Reporting Lab: [facility] [address] Performing Lab: [facility] [address] [facility] VITAMIN A 54 ug/dL 38-98 Mar 05, 2024 07:35 AM [facility] HEMOGLOBIN A1C [...] Nov 07, 2023 10:56 AM Reporting Lab: [facility] [address] Performing Lab: [facility] [address] HEMOGLOBIN A1C 6.6 H 4.0-6.0 Vital Signs: All taken on the encounter date This section contains inpatient and outpatient Vital Signs collected on the date of the Encounter. Date/Time Temperature Pulse Blood Pressure Respiratory Rate SP02 Pain Height Weight Body Mass Index Source Feb 19, 2024 09:13 AM 162.1 25 [facility] Feb 19, 2024 09:08 AM 115 103/71 18 96 7 [facility] Social History: [...] OR GREATE R [facility] Radiology Reports: +/- 30 days of [...] the Encounter. The data comes from all [facility] facilities. Date/Time Radiology Report Provider Source Mar 16, 2024 10:09 AM HIP LEFT 2 VIEWS W /PELVIS: JUAN THOMPSON [id number] -1945 M Exm Date: MAR 16, 2024@10:09 Req Phys: DUONG FIELDS Loc: [facility] APACT A RES 05 WH 4F (Req' Img Loc: MAIN X-RAY Service: [place] [address] (Case [id number] COMPLETE) HIP LEFT 2 VIEWS W/PELVIS (RAD Detailed) CPT:72076 Proc Modifiers : LEFT Reason for Study: mechanical fall 3 days ago Clinical History: [place] IS NOT under investigation for COVID-19 or is COVID-19 negative mechanical fall three days ago, rule out fracture. Responsible provider name and phone number to notify for critical findings if other than user placing the order and pager listed below: User placing orders pager: LAST CREATININE 1.1 (03/05/24) Report Status: Verified Date Reported: MAR 16, 2024 Date Verified: MAR 16, 2024 Drum Saw Operator E-Sig: Report: HIP LEFT 2 VIEWS W/PELVIS HISTORY: mechanical fall 3 days ago COMPARISON: Left hip series 08/28/2022 TECHNIQUE: AP view of the pelvis, and AP and frog-leg views of the left hip, submitted to the [place] National Teleradiology Program (NTP) for interpretation. FINDINGS: [...] hip joint OA. READING PHYSICIAN: Jere Johnson -[id number] 03/16/2024 14:24 CDT [facility] National Teleradiology Program [phone] (For Medical Practitioner Use Only) Attention Patients / Veterans: If you have questions or concerns about these test results, please contact your ordering provider or primary care team. Primary Interpreting Staff: RADIOLOGY,OUTSIDE SERVICE, Staff Physician / RADIOLOGY,OUTSIDE SERVICE [facility] Feb 07, 2024 12:25 PM SPINE LUMBOSACRAL 2 OR 3 VIEWS: JUAN THOMPSON [id number] -1945 M Ex Date: FEB 07, 2024@12:25 Req Phys: PATITO FIGUEROA Loc: DOROTHY FIGUEROA (Req'g Loc Img Loc: MAIN X-RAY Service: [place] [address] (Case [id number] COMPLETE) SPINE LUMBOSACRAL 2 OR 3 VIEWS (RAD Detailed) CPT:17376 Proc Modifiers : Standing Reason for Study: [...] 07, 2024 Date Verified: FEB 07, 2024 Drum Saw Operator E-Sig:/ES/SWATHI STACY MD Report: SPINE LUMBOSACRAL 2 OR 3 VIEWS 02/07/2024 INDICATION: radiating right lower extremity pain COMPARISON: None. FINDINGS: Five lumbar vertebral bodies. Small T12 ribs. Lordosis normal. Mild S-shaped asymmetry convex right superiorly and convex left inferiorly. Vertebral body heights are maintained. Ygft-xf-xgnxtigt diffuse disc space narrowing. Modest degree of facet arthropathy. No acute superimposed bony finding. Moderate aortic calcification. Normal caliber. Clips from cholecystectomy. Stool impaction in the colon. Advanced degenerative change of the right hip. 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 No acute bony finding. Advanced degenerative change of the right hip. Primary Interpreting Staff: SWATHI STACY MD, RADIOLOGIST (Drum Saw Operator) /SWATHI [place]BERRY [facility] Feb 07, 2024 10:22 AM HIP RIGHT 2 VIEWS W/PELVIS: JUAN THOMPSON [id number] -1945 M Exm Date: FEB 07, 2024@10:22 Req Phys: PATITO FIGUEROA Pat Loc: V23 [facility] PHONE CCC RN (Req'g Lo Img Loc: MAIN X-RAY Service: [place] [address] (Case [id number] COMPLETE) HIP RIGHT 2 VIEWS W/PELVIS (RAD Detailed) CPT:62669 Reason for Study: pain Clinical History: pain Responsible provider name and phone number to notify for critical findings if other than user placing the order and pager listed below: User placing orders pager: LAST CREATININE 1.1 (10/09/23) Report Status: Verified Date Reported: FEB 07, 2024 Date Verified: FEB 07, 2024 Drum Saw Operator E-Sig:/ES/LYNNE MARTÍNEZ DO Report: EXAMINATION: HIP RIGHT [...] Primary Interpreting Staff: LYNNE MARTÍNEZ DO, RADIOLOGIST (Drum Saw Operator) /DDS LYNNE MARTÍNEZ [facility] Encounter Notes: All [...] for F/U Getting all medication from the [place]. Vital Signs: Blood Pressure: 103/71 (02/19/2024 09:08) [...] PRACTICAL NURSE Signed: 02/19/2024 10:12 [place]
--- OUTSIDE RECORDS SUMMARY | 2024-09-05 10:22 | XMS_ITS | Encounter Summary ---
Author Name [facility] [place] [facility] [place] Address [address] [place] [address] Care Team Providers Care Dinkey Motor Operator Name Role Phone MARIUSZ PHILLIPS Primary [...] PART B Sep 26, 2012 PART B [id number] [facility] [phone] GIO THOMPSON JR PATIENT MEDICARE (WNR) MEDICARE (M) PART A Sep 26, 2012 PART A [id number] [phone] GIO THOMPSON JR PATIENT Selected Encounter This section includes the information on record at [place] for the Encounter. Date/Time Encounter Type Encounter Description Reason Provider Source Feb 07, 2024 11:30 AM OFFICE O/P EST MOD 30 MIN ORTHO/JOINT SURG ICD-10-CM M16.11 Unilateral primary osteoarthritis, right hip DAIN FIGUEROA ES A IHE Encounter Template Text not used by [place] Assessments - Encounter Diagnoses This section includes the primary and secondary diagnoses documented for the Encounter. Date/Time Primary/Secondary Diagnosis Diagnosis Name Provider Source Feb 09, 2024 12:38 PM PRIMARY Unilateral primary osteoarthritis, right hip LAVON FIGUEROA A [facility] Feb 09, 2024 12:38 PM SECONDARY Bilateral primary osteoarthritis of knee LAVON FIGUEROA A [facility] Plan of Treatment: Future Appointments (+ 6 months) and Future Tests (+/- 45 days) The Plan of Treatment section includes future care activities for the patient from all [place] [facility]. This section includes future appointments and [...] AM AMBULATORY [place]IC[place] [facility] Mar 05, 2024 07:30 AM [place]IC[place] [facility] Mar 05, 2024 08:30 AM [place]IC[place] [facility] Mar 05, 2024 10:00 AM [place] - [place]IC[place] [facility] Mar 09, 2024 08:45 AM [place]BUL[place]GERY [place] [facility] Mar 16, 2024 09:00 AM [place]IC[place] [facility] Mar 16, 2024 10:15 AM AMBULATORY - NONE [place] [facility] Mar 27, 2024 07:00 AM AMB[place]ORY - NONE [place] [facility] Mar 31, 2024 07:00 AM AMB[place]ATORY - NONE [place] [facility] Apr 20, 2024 08:00 AM [place]ORY - NONE [place] [facility] Apr 20, 2024 09:30 AM [place] [facility] Apr 22, 2024 09:00 AM [place]ORY - NONE [place] [facility] Apr 22, 2024 10:00 AM [place]IC[place] [facility] Apr 29, 2024 10:30 AM AMB[place]ORY - SURGERY [place] [facility] May 13, 2024 12:00 PM AMBUL[place]ORY - NONE [place] [facility] May 13, 2024 01:00 PM AMBULATORY - MEDICINE [facility] May 20, 2024 09:45 AM AM[place]ORY - NONE [place] [facility] May 26, 2024 09:15 AM AMBULATORY - MEDICINE [facility] Jun 03, 2024 10:00 AM AMBULATORY - MEDICINE [facility] Jun 04, 2024 09:30 AM [facility] Active, Pending, and Scheduled Orders This [...] Order CARDIAC EC HO OUTPT-ALL SITES Cons Neurodiagnostic Technician's Choice [facility] Lab Results: +/- 30 days [...] Range Comment Mar 05, 2024 09:55 AM [facility] VITAMIN B-1,BLOOD Specimen Type: BLOOD Comment: Vitamin supplementation within 24 hours prior to blood draw may affect the accuracy of the results. This test was developed and its analytical performance characteristics have been determined by [facility] [place], [place]. It has not been cleared or approved by the U.S. Food and Drug Administration. This assay has been validated pursuant to the CLIA regulations and is used for clinical purposes. Test Performed by [facility] [employer] [facility], [address] [place] [address] Devante Meyer M.D., Ph.D., Director of Laboratories , CLIA [id number] Ordering Provider: CATHY,INDERJIT CASAREZ Report Released Date/Time: Mar 05, 2024 09:40 AM Reporting Lab: [facility] [id number] Performing Lab: [address] VITAMIN B-1,BLOOD 125 nmol/L 78-185 Mar 05, 2024 09:55 AM [facility] VITAMIN A Specimen Type: SERUM Comment: Vitamin supplementation within 24 hours prior to blood draw may affect the accuracy of the results. This test was developed and its analytical performance characteristics have been determined by [facility] [place], [place]. It has not been cleared or approved by the U.S. Food and Drug Administration. This assay has been validated pursuant to the CLIA regulations and is used for clinical purposes. Test [facility] by [facility] [place], [address] [place] [address] Devante Meyer M.D., Ph.D., Director of Laboratories , CLIA [id number] Ordering Provider: INDERJIT MORGAN Report Released Date/Time: Mar 05, 2024 09:40 AM Reporting Lab: [place] [id number] Performing Lab: [address] VITAMIN A 54 ug/dL 38-98 Mar 05, 2024 09:55 AM [facility] ZINC Specimen Type: SERUM Comment: This test was developed and its analytical performance characteristics have been determined by [facility] [place], [place]. It has not been cleared or approved by the U.S. Food and Drug Administration. This assay has been validated pursuant to the CLIA regulations and is used for clinical purposes. Test Performed by [facility], [address] [place] [address] Devante Meyer M.D., Ph.D., Director of Laboratories , CLIA [id number] Ordering Provider: INDERJIT MORGAN Report Released Date/Time: Mar 05, 2024 09:40 AM Reporting Lab: [place] [phone] Performing Lab: [address] ZINC 96 ug/dL 60-130 Mar 05, 2024 09:55 AM [facility] COPPER Specimen Type: PLASMA Comment: This test was developed and its analytical performance characteristics have been determined by [facility] [place], [place]. It has not been cleared or approved by the U.S. Food and Drug Administration. This assay has been validated pursuant to the CLIA regulations and is used for clinical purposes. Test Performed by [facility], [facility], [address] [place] [address] Devante Meyer M.D., Ph.D., Director of Laboratories , CLIA [id number] Ordering Provider: INDERJIT MORGAN Report Released Date/Time: Mar 05, 2024 09:40 AM Reporting Lab: [facility] [phone] Performing Lab: [address] COPPER 99 ug/dL 70-175 Mar 05, 2024 09:55 AM [facility] TSH W/REFLEX TO FREE T4 Specimen Type: PLASMA No comment entered. Ordering Provider: INDERJIT MORGAN Report Released Date/Time: Mar 05, 2024 09:40 AM Reporting Lab: [facility] [address] Performing Lab: [facility] [address] TSH 2.01 u[IU]/mL 0.35-4.94 Mar 05, 2024 09:55 AM [facility] FERRITIN Specimen Type: SERUM No comment entered. Ordering Provider: INDERJIT MORGAN Report Released Date/Time: Mar 05, 2024 09:40 AM Reporting Lab: [facility] [address] Performing Lab: [facility] [address] FERRITIN 191.6 ng/mL 21.8-274.7 Mar 05, 2024 09:55 AM [facility] PRE-ALBUMIN Specimen Type: SERUM No comment entered. Ordering Provider: INDERJIT MORGAN Report Released Date/Time: Mar 05, 2024 09:40 AM Reporting Lab: [facility] [address] Performing Lab: [facility] [address] PRE-ALBUMIN 19.9 mg/dL 14.0-45.0 Mar 05, 2024 09:55 AM [facility] B 12 Specimen Type: PLASMA No comment entered. Ordering Provider: INDERJIT MORGAN Report Released Date/Time: Mar 05, 2024 09:40 AM Reporting Lab: [facility] [address] Performing Lab: [facility] [address] B 12 864 pg/mL H 213-816 Mar 05, 2024 09:55 AM [facility] LIPID PANEL,NON-FASTING Specimen Type: PLASMA No comment entered. Ordering Provider: INDERJIT MORGAN Report Released Date/Time: Mar 05, 2024 09:40 AM Reporting Lab: [facility] [address] Performing Lab: [facility] [address] CHOLESTEROL 111 mg/dL <199 .HDL 45 mg/dL >40 LDL CALCULATION 54 mg/dL <99 VLDL CALCULATION 12 mg/dL <29 NON HDL CHOLESTEROL 66 mg/dL <129 TRIG(NON FASTING) 60 mg/dL <149 Mar 05, 2024 09:55 AM [facility] FOLATE Specimen Type: SERUM No comment entered. Ordering Provider: INDERJIT MORGAN Report Released Date/Time: Mar 05, 2024 09:40 AM Reporting Lab: [facility] [address] Performing Lab: [facility] [address] FOLATE 14.5 ng/mL >7.0 Mar 05, 2024 09:55 AM [facility] VIT D 25-OH,TOTAL Specimen Type: SERUM No comment entered. Ordering Provider: INDERJIT MORGAN Report Released Date/Time: Mar 05, 2024 09:40 AM Reporting Lab: [facility] [address] Performing Lab: [facility] [address] VIT D 25-OH,TOTAL 71 ng/mL H 12-50 Mar 05, 2024 09:55 AM [facility] COMPREHENSIVE METABOLIC PANEL+MG Specimen Type: PLASMA No comment entered. Ordering Provider: INDERJIT MORGAN Report Released Date/Time: Mar 05, 2024 09:40 AM Reporting Lab: [facility] [address] Performing Lab: [facility] [address] CREATININE 1.1 mg/dL 0.7-1.2 UREA NITROGEN 19 [...] 70 >60 Mar 05, 2024 09:55 AM [facility] CBC & DIFF Specimen Type: BLOOD Comment: Automated Differential Performed Ordering Provider: INDERJIT MORGAN Report Released Date/Time: Mar 05, 2024 09:40 AM Reporting Lab: [facility] [address] Performing Lab: [facility] [address] WBC 6.85 10*3/uL 4.0-11.0 RBC 4.20 10*6/uL [...] 10*3/uL 0-0.1 Mar 05, 2024 09:55 AM [facility] CALCIUM Specimen Type: PLASMA No comment entered. Ordering Provider: INDERJIT MORGAN Report Released Date/Time: Mar 05, 2024 09:40 AM Reporting Lab: [facility] [address] Performing Lab: [facility] [address] CALCIUM 9.6 mg/dL 8.4-10.2 Mar 05, 2024 09:55 AM [facility] IRON GROUP Specimen Type: SERUM No comment entered. Ordering Provider: INDERJIT MORGAN Report Released Date/Time: Mar 05, 2024 09:40 AM Reporting Lab: [facility] [address] Performing Lab: [facility] [address] IRON 59 ug/dL L 65-175 TIBC,CALCULATE D 258 ug/dL 250-425 FERRITIN 191.6 ng/mL 21.8-274.7 IRON SATURATION 23 20-50 TRANSFERRIN 206 mg/dL 163-382 Mar 05, 2024 09:55 AM [facility] MAGNESIUM Specimen Type: PLASMA No comment entered. Ordering Provider: INDERJIT MORGAN Report Released Date/Time: Mar 05, 2024 09:40 AM Reporting Lab: [facility] [address] Performing Lab: [facility] [address] MAGNESIUM 1.4 mg/dL L 1.6-2.6 Mar 05, 2024 09:55 AM [facility] PTH-N-TACT Specimen Type: SERUM No comment entered. Ordering Provider: INDERJIT MORGAN Report Released Date/Time: Mar 05, 2024 09:40 AM Reporting Lab: [facility] [address] Performing Lab: [facility] [address] PTH-N-TACT 26.5 pg/mL 8.7-77.1 Mar 05, 2024 09:54 AM [facility] VITAMIN A Specimen Type: SERUM Comment: Vitamin supplementation within 24 hours prior to blood draw may affect the accuracy of the results. This test was developed and its analytical performance characteristics have been determined by [facility] [place], [place]. It has not been cleared or approved by the U.S. Food and Drug Administration. This assay has been validated pursuant to the CLIA regulations and is used for clinical purposes. Test Performed by [facility], [facility], [address] [place] [address] Devante Meyer M.D., Ph.D., Director of Laboratories , CLIA [id number] Ordering Provider: INDERJIT MORGAN Report Released Date/Time: Mar 05, 2024 09:40 AM Reporting Lab: [facility] [address] Performing Lab: [address] VITAMIN A 54 ug/dL 38-98 Mar 05, 2024 07:35 AM [facility] HEMOGLOBIN A1C Specimen Type: BLOOD [...] 07, 2023 10:56 AM Reporting Lab: [facility] [address] Performing Lab: [facility] [address] HEMOGLOBIN A1C 6.6 H 4.0-6.0 Social History: [...] 21, 2023 10:30 AM [place] FORMER USER [facility] Tobacco Use History This section includes a history of the smoking, or tobacco-related health factors, that were collected on or before the date of the Encounter. The data comes from the [place] facility where the Encounter took place. Date/Time Smoking Status/Tobacco Use Comment F acility Aug 21, 2023 10:30 AM [place]-TOBACCO QUIT 15 YRS OR MORE [facility] Aug 15, 2022 09:00 AM VA-TOBACCO FORMER USER [facility] Aug 15, 2022 09:00 AM VA-TOBACCO QUIT 15 YRS OR MORE [facility] Aug 21, 2021 01:00 PM VA-TOBACCO FORMER USER [facility] Aug 21, 2021 01:00 PM VA-TOBACCO QUIT 15 YRS OR MORE [facility] Jul 09, 2018 08:58 AM [place]-TOBACCO FORMER USER [facility] Jul 09, 2018 08:58 AM [place]-TOBACCO QUIT 15 YRS OR MORE [facility] Jul 18, 2017 09:58 AM FORMER TOBACCO USER 7Y OR GREATE R [facility] Aug 14, 2016 10:59 AM FORMER TOBACCO USER 7Y OR GREATE R [facility] Jun 29, 2015 02:03 PM FORMER TOBACCO USER 7Y OR GREATE R [facility] Jan 06, 2014 03:04 PM FORMER TOBACCO USER 7Y OR GREATE R [facility] Jan 04, 2012 08:36 AM FORMER TOBACCO USER 7Y OR GREATE R [facility] Radiology Reports: +/- 30 days [...] the Encounter. The data comes from all [facility] facilities. Date/Time Radiology Report Provider Source Feb 07, 2024 12:25 PM SPINE LUMBOSACRAL 2 OR 3 VIEWS: GIO THOMPSON [id number] -1945 M Exm Date: FEB 07, 2024@12:25 Req Phys: PATITO FIGUEROA Loc: [facility] [place] (Req'g Loc Img Loc: MAIN X-RAY Service: [place] [address] (Case [id number] COMPLETE) SPINE LUMBOSACRAL 2 OR 3 VIEWS (RAD Detailed) CPT:04696 Proc Modifiers : Standing Reason for Study: [...] 07, 2024 Date Verified: FEB 07, 2024 Professor Of Public Administration E-Sig:/ES/SWATHI STACY MD Report: SPINE LUMBOSACRAL 2 OR 3 VIEWS 02/07/2024 INDICATION: radiating right lower extremity pain COMPARISON: None. FINDINGS: Five lumbar vertebral bodies. Small T12 ribs. Lordosis normal. Mild S-shaped asymmetry convex right superiorly and convex left inferiorly. Vertebral body heights are maintained. [id number]-[id number] diffuse disc space narrowing. Modest degree of facet arthropathy. No acute superimposed bony finding. Moderate aortic calcification. Normal caliber. Clips from cholecystectomy. Stool impaction in the colon. Advanced degenerative change of the right hip. 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 No acute bony finding. Advanced degenerative change of the right hip. Primary Interpreting Staff: SWATHI STACY MD, RADIOLOGIST (Professor Of Public Administration) /SWATHI [place] [facility] Feb 07, 2024 10:22 AM HIP RIGHT 2 VIEWS W/PELVIS: DONNAGIO BEVERLY [id number] -1945 M [facility] Date: FEB 07, 2024@10:22 Req Phys: PATITO FIGUEROA Pat Loc: V23 [facility] PHONE CCC RN (Tim'jasmine Lo Img Loc: MAIN X-RAY Service: [place] [address] (Case [id number] COMPLETE) HIP RIGHT 2 VIEWS W/PELVIS (RAD Detailed) CPT:73853 Reason for Study: pain Clinical History: pain Responsible provider name and phone number to notify for critical findings if other than user placing the order and pager listed below: User placing orders pager: LAST CREATININE 1.1 (10/09/23) Report Status: Verified Date Reported: FEB 07, 2024 Date Verified: FEB 07, 2024 Professor Of Public Administration E-Sig:/ES/LYNNE MARTÍNEZ DO Report: EXAMINATION: HIP RIGHT [...] Primary Interpreting Staff: LYNNE MARTÍNEZ DO, RADIOLOGIST (Professor Of Public Administration) /DDS LYNNE MARTÍNEZ [facility] Encounter Notes: All associated encounter [...] PT/DP were palpable today. Focused examination of [facility] back: - skin is intact - no [...] STAFF SURGEON Signed: 02/09/2024 12:39 PATITO FIGUEROA [facility]
[2024-09-05 10:23] LABS: Sodium* 132 mmol/L (135-149)
--- OUTSIDE RECORDS SUMMARY | 2024-09-05 10:23 | XMS_ITS | Encounter Summary ---
Author Name [facility] [facility] [place] Address [address] [place] [address] Care Team Providers Care Senior Case Manager Name Role Phone MARIUSZ PHILLIPS Primary [...] PART A Sep 26, 2012 PART A [id number] [facility] [phone] JUAN THOMPSON JR PATIENT MEDICARE (WNR) MEDICARE (M) PART B Sep 26, 2012 PART B [id number] [phone] JUAN THOMPSON JR PATIENT Selected Encounter This section includes the information on record at [place] for the Encounter. Date/Time Encounter Type Encounter Description Reason Pro vider Source Nov 07, 2023 11:30 AM OFFICE O/P EST MOD 30 MIN PSYCHOGERIATRIC - INDIVIDUAL ICD-10-CM F31.76 Bipolar disorder, in full remis, most recent episode depress JANETTE HONEYCUTT [facility] Encounter Template Text not used by [place] Assessments - Encounter Diagnoses This section includes the primary and secondary diagnoses documented for the Encounter. Date/Time Primary/Secondary Diagnosis Diagnosis Name Provider Source Nov 08, 2023 02:07 PM PRIMARY Bipolar disorder, in full remis, most recent episode depress JOSE HONEYCUTT [facility] Nov 08, 2023 02:07 PM SECONDARY Visual hallucinations JOSE HONEYCUTT [facility] Plan of Treatment: Future Appointments (+ 6 months) and Future Tests (+/- 45 days) The Plan of Treatment section includes future care activities for the [facility] [place] [facility] This section includes future appointments [...] 09:00 AM AMBULATORY [place] [facility] December 05, 2023 09:30 AM AMBULAT[place]CHI[place] [facility] Feb 07, 2024 11:00 AM [place]ORY - [place]ONE [place] [facility] Feb 07, 2024 11:30 AM [place] [facility] Feb 07, 2024 12:30 PM [place]ORY - NONE [place] [facility] Feb 18, 2024 08:00 AM [place] - [place]IC[place] [facility] Mar 05, 2024 07:30 AM [place]IC[place] [facility] Mar 05, 2024 08:30 AM [place]IC[place] [facility] Mar 05, 2024 10:00 AM [place]IC[place] [facility] Mar 09, 2024 08:45 AM [place]BUL[place] [facility] Mar 16, 2024 09:00 AM [place]IC[place] [facility] Mar 16, 2024 10:15 AM [place]ORY - NONE [place] [facility] Mar 27, 2024 07:00 AM [place]ORY - NONE [place] [facility] Mar 31, 2024 07:00 AM [place]ORY - [place]ONE [place] [facility] Apr 20, 2024 08:00 AM [place]ORY - [place] [facility] Apr 20, 2024 09:30 AM AMBUL[place]UROLOG[place] [facility] Apr 22, 2024 09:00 AM [place]ORY - NONE [place] [facility] Apr 22, 2024 10:00 AM AMBULATORY - MEDICINE [place] [facility] Apr 29, 2024 10:30 AM AMBULATORY - SURGERY [place] [facility] Lab Results: +/- 30 days of [...] Range Comment Nov 07, 2023 11:14 AM [facility] VIT D 25-OH,TOTAL Specimen Type: SERUM No comment entered. Ordering Provider: ISAEL ALVAREZ Report Released Date/Time: Nov 07, 2023 10:08 AM Reporting Lab: [facility] [id number] Performing Lab: [facility] [id number] VIT D 25-OH,TOTAL 70 ng/mL H 12-50 Nov 07, 2023 09:38 AM [facility] VITAMIN A Specimen Type: SERUM Comment: Vitamin supplementation within 24 hours prior to blood draw may affect the accuracy of the results. This test was developed and its analytical performance characteristics have been determined by [facility] [place], [place]. It has not been cleared or approved by the U.S. Food and Drug Administration. This assay has been validated pursuant to the CLIA regulations and is used for clinical purposes. Test Performed by [facility], [facility], [address] [place] [address] Devante Meyer M.D., Ph.D., Director of Laboratories , CLIA [id number] Ordering Provider: ISAEL ALVAREZ Report Released Date/Time: Jul 11, 2023 10:23 AM Reporting Lab: [facility] [id number] Performing Lab: [address] VITAMIN A 58 ug/dL 38-98 Nov 07, 2023 09:38 AM [facility] HEMOGLOBIN A1C Specimen Type: BLOOD [...] 2023 10:23 AM Reporting Lab: [facility] [id number] Performing Lab: [facility] [id number] HEMOGLOBIN A1C 6.4 H 4.0-6.0 Oct 09, 2023 08:35 AM [facility] HEMOGLOBIN A1C Specimen Type: BLOOD [...] 29, 2023 04:30 PM Reporting Lab: [facility] [id number] Performing Lab: [facility] [id number] HEMOGLOBIN A1C 6.4 H 4.0-6.0 Oct 09, 2023 08:35 AM [facility] CBC Specimen Type: BLOOD No comment entered. Ordering Provider: LYUBOV YEUNG Report Released Date/Time: Aug 29, 2023 04:30 PM Reporting Lab: [facility] [id number] Performing Lab: [facility] [id number] WBC 7.18 10*3/uL 4.0-11.0 RBC 3.94 10*6/uL L 4.6-6.2 HGB 11.7 g/dL L 13.5-17.9 HCT 36.0 L 41-54 MCV 91.4 fL 80-100 MCH 29.7 pg 27-33 MCHC 32.5 g/dL 32.0-37.5 PLT 266 10*3/uL 150-400 MPV 9.7 fL 7.4-10.4 RDW 14.3 11.5-14.5 Oct 09, 2023 08:35 AM [facility] BASIC METABOLIC PANEL+MG Specimen Type: PLASMA No comment entered. Ordering Provider: LYUBOV YEUNG Report Released Date/Time: Aug 29, 2023 04:30 PM Reporting Lab: [facility] [id number] Performing Lab: [facility] [id number] CREATININE 1.1 mg/dL 0.7-1.2 UREA NITROGEN 22 [...] 97.6 80 118/68 16 94 177.7 27 [facility] Social History: Smoking Status (Most current) and [...] 21, 2023 10:30 AM [place]-TO[place]AC[place] FORMER USER [facility] Tobacco Use History This section includes a history of the smoking, or tobacco-related health factors, that were collected on or before the date of the Encounter. The data comes from the [place] facility where the Encounter took place. Date/Time Smoking Status/Tobacco Use Comment F acility Aug 21, 2023 10:30 AM [place]-TOBAC[place] QUIT 15 YRS OR MORE [facility] Aug 15, 2022 09:00 AM VA-TOBACCO FORMER USER [facility] Aug 15, 2022 09:00 AM VA-TOBACCO QUIT 15 YRS OR MORE [facility] Aug 21, 2021 01:00 PM VA-TOBACCO FORMER USER [facility] Aug 21, 2021 01:00 PM VA-TOBACCO QUIT 15 YRS OR MORE [facility] Jul 09, 2018 08:58 AM VA-TOBACCO FORMER USER [facility] Jul 09, 2018 08:58 AM VA-TOBACCO QUIT 15 YRS OR MORE [facility] Jul 18, 2017 09:58 AM FORMER TOBACCO USER 7Y OR GREATE R [facility] Aug 14, 2016 10:59 AM FORMER TOBACCO USER 7Y OR GREATE R [facility] Jun 29, 2015 02:03 PM FORMER TOBACCO USER 7Y OR GREATE R [facility] Jan 06, 2014 03:04 PM FORMER TOBACCO USER 7Y OR GREATE R [facility] Jan 04, 2012 08:36 AM FORMER TOBACCO USER 7Y OR GREATE R [facility] Encounter Notes: All associated encounter [...] with Psychotic 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 Etiology is certainly multifactorial. 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 Given [...] as Alzheimer's disease is less likely. The Lacrosse's presentation is complex and symptoms may persist [...] endorse delusion that he communicated with television announcer in the past, though reports it is [...] STAFF PSYCHIATRIST Signed: 11/08/2023 14:09 LORETA HONEYCUTT [facility]
--- OUTSIDE RECORDS SUMMARY | 2024-09-05 10:23 | XMS_ITS | Encounter Summary ---
Author Name [facility] [place] [facility] [place] Address [address] [place] [address] Care Team Providers Care Business Continuity Global Director Name Role Phone MARIUSZ PHILLIPS Primary [...] PART B Sep 26, 2012 PART B [id number] [facility] [phone] JUAN THOMPSON JR PATIENT MEDICARE (WNR) MEDICARE (M) PART A Sep 26, 2012 PART A [id number] [phone] JUAN THOMPSON JR PATIENT Selected Encounter This section includes the information on record at [place] for the Encounter. Date/Time Encounter Type Encounter Description Reason Provider Source Mar 05, 2024 08:30 AM OFFICE O/P EST HI 40 MIN ENDOCRINOLOGY ICD-10-CM E11.8 Type 2 diabetes mellitus with unspecified complications RAF SALVADOR IHE Encounter Template Text not used by [place] Assessments - Encounter Diagnoses This section includes the primary and secondary diagnoses documented for the Encounter. Date/Time Primary/Secondary Diagnosis Diagnosis Name Provider Source Mar 05, 2024 09:51 AM PRIMARY Type 2 diabetes mellitus with unspecified complications INDERJIT MORGAN [facility] Mar 05, 2024 09:51 AM SECONDARY Abnormal [facility] Mar 05, 2024 09:51 AM SECONDARY Other obesity CATHY,[facility] Plan of Treatment: Future Appointments (+ 6 months) and Future Tests (+/- 45 days) The Plan of Treatment section includes future care activities for the patient from [facility] [place] [facility] This section includes future appointments and future orders which are active, pending or scheduled. Future Appointments This section includes appointments that were scheduled to occur 6 months from the date of the Encounter, up to a maximum of 20 appointments. The data comes from all [facility] facilities. Appointment Date/Time Appointment Type Appointme nt Facility Name Mar 09, 2024 08:45 AM [facility] Mar 16, 2024 09:00 AM [facility] Mar 16, 2024 10:15 AM [facility] Mar 27, 2024 07:00 AM [facility]ONE [facility] Mar 31, 2024 07:00 AM [facility] Apr 20, 2024 08:00 AM [facility]ONE [facility] Apr 20, 2024 09:30 AM [place] [facility] [facility] Apr 22, 2024 09:00 AM [facility]ONE [facility] Apr 22, 2024 10:00 AM [facility] Apr 29, 2024 10:30 AM [facility] May 13, 2024 12:00 PM [facility] - NONE [facility] May 13, 2024 01:00 PM [facility] May 20, 2024 09:45 AM [facility]ONE [facility] [facility] May 26, 2024 09:15 AM [facility] Jun 03, 2024 10:00 AM AMBULATORY - MEDICINE [facility] Jun 04, 2024 09:30 AM AMBUL[place] [facility] Jun 05, 2024 01:30 PM AMBULATORY - MEDICINE [facility] Jun 12, 2024 07:30 AM [facility]ONE [place] [facility] Jun 12, 2024 08:30 AM AMBULATORY - MEDICINE [facility] Jun 23, 2024 10:15 AM AMBULATORY - MEDICINE [facility] Active, Pending, and Scheduled Orders This section includes a listing of several types of active, pending, and scheduled orders, including clinic medications orders, diagnostic test orders, procedure orders and consult orders; where the start date of the order is 45 days before the date of the Encounter or 45 days after the date of theEncounter. The data comes from all [place] treatment facilities. Test Date/Time Test Type Test Details Facility Name Mar 18, 2024 05:05 PM Consult Order CARDIAC EC HO OUTPT-ALL SITES Cons Submarine D[employer] Choice [facility] Lab Results: +/- 30 days of [...] Range Comment Mar 05, 2024 09:55 AM [facility] VITAMIN B-1,BLOOD Specimen Type: BLOOD Comment: Vitamin supplementation within 24 hours prior to blood draw may affect the accuracy of the results. This test was developed and its analytical performance characteristics have been determined by [facility] [place], [place]. It has not been cleared or approved by the U.S. Food and Drug Administration. This assay has been validated pursuant to the CLIA regulations and is used for clinical purposes. Test Performed by Jose Louie, [facility] [place], [address] [facility], [place], [place] Devante Meyer M.D., Ph.D., Director of Laboratories , CLIA [id number] Ordering Provider: INDERJIT MORGAN Report Released Date/Time: Mar 05, 2024 09:40 AM Reporting Lab: [facility] [address] Performing Lab: [address] VITAMIN B-1,BLOOD 125 nmol/L 78-185 Mar 05, 2024 09:55 AM [facility] VITAMIN A Specimen Type: SERUM Comment: Vitamin supplementation within 24 hours prior to blood draw may affect the accuracy of the results. This test was developed and its analytical performance characteristics have been determined by [facility] [place], [place]. It has not been cleared or approved by the U.S. Food and Drug Administration. This assay has been validated pursuant to the CLIA regulations and is used for clinical purposes. Test Performed by [facility] [place], [address] [place] [address] Devante Meyer M.D., Ph.D., Director of Laboratories , CLIA [id number] Ordering Provider: INDERJIT MORGAN Report Released Date/Time: Mar 05, 2024 09:40 AM Reporting Lab: [place] [id number] Performing Lab: [address] VITAMIN A 54 ug/dL 38-98 Mar 05, 2024 09:55 AM [facility] ZINC Specimen Type: SERUM Comment: This test was developed and its analytical performance characteristics have been determined by [facility] [place], [place]. It has not been cleared or approved by the U.S. Food and Drug Administration. This assay has been validated pursuant to the CLIA regulations and is used for clinical purposes. Test Performed by [facility] [place], [address] [place] [address] Devante Meyer M.D., Ph.D., Director of Laboratories , CLIA [id number] Ordering Provider: INDERJIT MORGAN Report Released Date/Time: Mar 05, 2024 09:40 AM Reporting Lab: [facility] [address] Performing Lab: [address] ZINC 96 ug/dL 60-130 Mar 05, 2024 09:55 AM [facility] COPPER Specimen Type: PLASMA Comment: This test was developed and its analytical performance characteristics have been determined by [facility] [place], [place]. It has not been cleared or approved by the U.S. Food and Drug Administration. This assay has been validated pursuant to the CLIA regulations and is used for clinical purposes. Test Performed by [facility], [facility], [address] [place] [address] Devante Meyer M.D., Ph.D., Director of Laboratories , CLIA [id number] Ordering Provider: INDERJIT MORGAN Report Released Date/Time: Mar 05, 2024 09:40 AM Reporting Lab: [facility] [address] Performing Lab: [address] COPPER 99 ug/dL 70-175 Mar 05, 2024 09:55 AM [facility] TSH W/REFLEX TO FREE T4 Specimen Type: PLASMA No comment entered. Ordering Provider: INDERJIT MORGAN Report Released Date/Time: Mar 05, 2024 09:40 AM Reporting Lab: [facility] [address] Performing Lab: [facility] [address] TSH 2.01 u[IU]/mL 0.35-4.94 Mar 05, 2024 09:55 AM [facility] FERRITIN Specimen Type: SERUM No comment entered. Ordering Provider: INDERJIT MORGAN Report Released Date/Time: Mar 05, 2024 09:40 AM Reporting Lab: [facility] [address] Performing Lab: [facility] [address] FERRITIN 191.6 ng/mL 21.8-274.7 Mar 05, 2024 09:55 AM [facility] PRE-ALBUMIN Specimen Type: SERUM No comment entered. Ordering Provider: INDERJIT MORGAN Report Released Date/Time: Mar 05, 2024 09:40 AM Reporting Lab: [facility] [address] Performing Lab: [facility] [address] PRE-ALBUMIN 19.9 mg/dL 14.0-45.0 Mar 05, 2024 09:55 AM [facility] B 12 Specimen Type: PLASMA No comment entered. Ordering Provider: INDERJIT MORGAN Report Released Date/Time: Mar 05, 2024 09:40 AM Reporting Lab: [facility] [address] Performing Lab: [facility] [address] B 12 864 pg/mL H 213-816 Mar 05, 2024 09:55 AM [facility] LIPID PANEL,NON-FASTING Specimen Type: PLASMA No comment entered. Ordering Provider: INDERJIT MORGAN Report Released Date/Time: Mar 05, 2024 09:40 AM Reporting Lab: [facility] [address] Performing Lab: [facility] [address] CHOLESTEROL 111 mg/dL <199 .HDL 45 mg/dL >40 LDL CALCULATION 54 mg/dL <99 VLDL CALCULATION 12 mg/dL <29 NON HDL CHOLESTEROL 66 mg/dL <129 TRIG(NON FASTING) 60 mg/dL <149 Mar 05, 2024 09:55 AM [facility] FOLATE Specimen Type: SERUM No comment entered. Ordering Provider: INDERJIT MORGAN Report Released Date/Time: Mar 05, 2024 09:40 AM Reporting Lab: [facility] [address] Performing Lab: [facility] [address] FOLATE 14.5 ng/mL >7.0 Mar 05, 2024 09:55 AM [facility] VIT D 25-OH,TOTAL Specimen Type: SERUM No comment entered. Ordering Provider: INDERJIT MORGAN Report Released Date/Time: Mar 05, 2024 09:40 AM Reporting Lab: [facility] [address] Performing Lab: [facility] [address] VIT D 25-OH,TOTAL 71 ng/mL H 12-50 Mar 05, 2024 09:55 AM [facility] CALCIUM Specimen Type: PLASMA No comment entered. Ordering Provider: INDERJIT MORGAN Report Released Date/Time: Mar 05, 2024 09:40 AM Reporting Lab: [facility] [address] Performing Lab: [facility] [address] CALCIUM 9.6 mg/dL 8.4-10.2 Mar 05, 2024 09:55 AM [facility] CBC & DIFF Specimen Type: BLOOD Comment: Automated Differential Performed Ordering Provider: INDERJIT MORGAN Report Released Date/Time: Mar 05, 2024 09:40 AM Reporting Lab: [facility] [address] Performing Lab: [facility] [address] WBC 6.85 10*3/uL 4.0-11.0 RBC 4.20 10*6/uL [...] 10*3/uL 0-0.1 Mar 05, 2024 09:55 AM [facility] MAGNESIUM Specimen Type: PLASMA No comment entered. Ordering Provider: INDERJIT MORGAN Report Released Date/Time: Mar 05, 2024 09:40 AM Reporting Lab: [facility] [address] Performing Lab: [facility] [address] MAGNESIUM 1.4 mg/dL L 1.6-2.6 Mar 05, 2024 09:55 AM [facility] IRON GROUP Specimen Type: SERUM No comment entered. Ordering Provider: INDERJIT MORGAN Report Released Date/Time: Mar 05, 2024 09:40 AM Reporting Lab: [facility] [address] Performing Lab: [facility] [address] IRON 59 ug/dL L 65-175 TIBC,CALCULATE D 258 ug/dL 250-425 FERRITIN 191.6 ng/mL 21.8-274.7 IRON SATURATION 23 20-50 TRANSFERRIN 206 mg/dL 163-382 Mar 05, 2024 09:55 AM [facility] PTH-N-TACT Specimen Type: SERUM No comment entered. Ordering Provider: NIDERJIT MORGAN Report Released Date/Time: Mar 05, 2024 09:40 AM Reporting Lab: [facility] [address] Performing Lab: [facility] [address] PTH-N-TACT 26.5 pg/mL 8.7-77.1 Mar 05, 2024 09:55 AM [facility] COMPREHENSIVE METABOLIC PANEL+MG Specimen Type: PLASMA No comment entered. Ordering Provider: INDERJIT MORGAN Report Released Date/Time: Mar 05, 2024 09:40 AM Reporting Lab: [facility] [address] Performing Lab: [facility] [address] CREATININE 1.1 mg/dL 0.7-1.2 UREA NITROGEN 19 [...] .CREAT EGFR(CKD-EPI) 70 >60 Mar 05, 2024 09:54 AM [facility] VITAMIN A Specimen Type: SERUM Comment: Vitamin supplementation within 24 hours prior to blood draw may affect the accuracy of the results. This test was developed and its analytical performance characteristics have been determined by [facility] [place], [place]. It has not been cleared or approved by the U.S. Food and Drug Administration. This assay has been validated pursuant to the CLIA regulations and is used for clinical purposes. Test Performed by [facility], [place] [facility], [address] [place] [address] Devante Meyer M.D., Ph.D., Director of Laboratories , [place] [id number] Ordering Provider: INDERJIT MORGAN Report Released Date/Time: Mar 05, 2024 09:40 AM Reporting Lab: [facility] [address] Performing Lab: [address] VITAMIN A 54 ug/dL 38-98 Mar 05, 2024 07:35 AM [facility] HEMOGLOBIN A1C Specimen Type: BLOOD Comment: [...] Nov 07, 2023 10:56 AM Reporting Lab: [facility] [address] Performing Lab: [facility] [address] HEMOGLOBIN A1C 6.6 H 4.0-6.0 Vital Signs: All taken on the encounter date This section contains inpatient and outpatient Vital Signs collected on the date of the Encounter. Date/Time Temperature Pulse Blood Pressure Respiratory Rate SP02 Pain Height Weight Body Mass Index Source Mar 05, 2024 08:52 AM 97.9 85 99/66 16 98 7 158.2 24 [facility] Social History: Smoking [...] 21, 2023 10:30 AM [place]-TOBACCO FORMER USER [facility] [...] YRS OR MORE [facility] Aug 15, 2022 09:00 AM VA-TOBACCO FORMER USER [facility] Aug 15, 2022 09:00 AM [place]-TO[place]ACCO [...] 7Y OR GREATE R [facility] Radiology Reports: +/- 30 days of [...] the Encounter. The data comes from all [place] treatment facilities. Date/Time Radiology Report Provider Source Mar 16, 2024 10:09 AM HIP LEFT 2 VIEWS W /PELVIS: JUAN THOMPSON [id number] -1945 M Exm Date: MAR 16, 2024@10:09 Req Phys: DUONG FIELDS Pat Loc: [facility] APACT A RES 05 WH 4F (Req' Img Loc: MAIN X-RAY Service: [place] [address] (Case [id number] COMPLETE) HIP LEFT 2 VIEWS W/PELVIS (RAD Detailed) CPT:78499 Proc Modifiers : LEFT Reason for Study: mechanical fall 3 days ago Clinical History: Alpha IS NOT under investigation for COVID-19 or is COVID-19 negative mechanical fall three days ago, rule out fracture. Responsible provider name and phone number to notify for critical findings if other than user placing the order and pager listed below: User placing orders pager: LAST CREATININE 1.1 (03/05/24) Report Status: Verified Date Reported: MAR 16, 2024 Date Verified: MAR 16, 2024 Adjunct Faculty Mathematics Department E-Sig: Report: HIP LEFT 2 VIEWS W/PELVIS HISTORY: mechanical fall 3 days ago COMPARISON: Left hip series 08/28/2022 TECHNIQUE: AP view of the pelvis, and AP and frog-leg views of the left hip, submitted to the [place] National Teleradiology Program (NTP) for interpretation. FINDINGS: [...] hip joint OA. READING PHYSICIAN: Jere Johnson -[phone] 03/16/2024 14:24 CDT [facility] National Teleradiology Program [phone] (For Medical Practitioner Use Only) Attention Patients / Veterans: If you have questions or concerns about these test results, please contact your ordering provider or primary care team. Primary Interpreting Staff: RADIOLOGY,OUTSIDE SERVICE, Staff Physician / RADIOLOGY,OUTSIDE SERVICE [facility] Feb 07, 2024 12:25 PM SPINE LUMBOSACRAL 2 OR 3 VIEWS: JUAN THOMPSON [id number] -[id number] M Exm Date: FEB 07, 2024@12:25 Req Phys: LAVON FIGUEROAASHWIN Christos Pat Loc: [facility] [place] (Req'g Loc Img Loc: MAIN X-RAY Service: [place] [address] (Case [id number] COMPLETE) SPINE LUMBOSACRAL 2 OR 3 VIEWS (RAD Detailed) CPT:88491 Proc Modifiers : Standing Reason for Study: radiating right lower extremity pain Clinical History: Alpha IS NOT under investigation for COVID-19 or is COVID-19 negative radiating right lower extremity. Please perform AP & Lat. Responsible provider name and phone number to notify for critical findings if other than user placing the order and pager listed below: User placing orders pager: LAST CREATININE 1.1 (10/09/23) Report Status: Verified Date Reported: FEB 07, 2024 Date Verified: FEB 07, 2024 Adjunct Faculty Mathematics Department E-Sig:/ES/SWATHI STACY MD Report: SPINE LUMBOSACRAL 2 OR 3 VIEWS 02/07/2024 INDICATION: radiating right lower extremity pain COMPARISON: None. FINDINGS: Five lumbar vertebral bodies. Small T12 ribs. Lordosis normal. Mild S-shaped asymmetry convex right superiorly and convex left inferiorly. Vertebral body heights are maintained. Vapy-yt-gvcrcuzp diffuse disc space narrowing. Modest degree of facet arthropathy. No acute superimposed bony finding. Moderate aortic calcification. Normal caliber. Clips from cholecystectomy. Stool impaction in the colon. Advanced degenerative change of the right hip. 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 No acute bony finding. Advanced degenerative change of the right hip. Primary Interpreting Staff: SWATHI STACY MD, RADIOLOGIST (Adjunct Faculty Mathematics Department) /SWATHI NEWBERRY [facility] Feb 07, 2024 10:22 AM HIP RIGHT 2 VIEWS W/PELVIS: JUAN THOMPSON [id number] -[id number] M Exm Date: FEB 07, 2024@10:22 Req Phys: PATITO FIGUEROA Pat Loc: V23 [facility] PHONE CCC RN (Req'g Lo Img Loc: MAIN X-RAY Service: [place] [address] (Case [id number] COMPLETE) HIP RIGHT 2 VIEWS W/PELVIS (RAD Detailed) CPT:87361 Reason for Study: pain Clinical History: pain Responsible provider name and phone number to notify for critical findings if other than user placing the order and pager listed below: User placing orders pager: LAST CREATININE 1.1 (10/09/23) Report Status: Verified Date Reported: FEB 07, 2024 Date Verified: FEB 07, 2024 Adjunct Faculty Mathematics Department E-Sig:/PABLO/LYNNE MARTÍNEZ DO Report: EXAMINATION: HIP RIGHT [...] Primary Interpreting Staff: LYNNE MARTÍNEZ DO, RADIOLOGIST (Adjunct Faculty Mathematics Department) /DDS LYNNE MARTÍNEZ [facility] Encounter Notes: All associated [...] information. /pablo/ MIGUEL ANGEL WHITLOCK RN Metabolic Technical Assistant Signed: 03/10/2024 10:33 Receipt Acknowledged By: 03/11/2024 [...] several years ago. No N/V/D. Lives at [address] [place] [address], has housekeeping come in 3 days per week. floor service worker spring helps out once per week. Uses dosimeters [...] for the followin. Essential hypertension (SNOMED CT 70152455) 2. Major depressive disorder (SNOMED CT 699245945) 3. Generalized anxiety disorder (SNOMED CT 87161507) 4. Primary Obesity 5. Bronchiectasis (SNOMED CT 08838707) 6. Gastroesophageal reflux disease (SNOMED CT 057707443) 7. Bariatric Surgery Status 8. Cataracts (SNOMED CT 53949234) 9. Hypermetropia/Hyperopia 10. Astigmatism, Unspec 11. Presbyopia 12. Atrial fibrillation (SNOMED CT 22868513) 13. Varicose veins of lower extremity 14. Compulsive gambling 15. Bipolar disorder (SNOMED CT 74499984) 16. Mild cognitive disorder 17. Type 2 [...] 10:25 /pablo/ MIGUEL ANGEL WHITLOCK RN Metabolic Technical Assistant MIGUEL ANGEL WHITLOCK [facility] Mar 09, 2024 05:20 PM ADDENDUM: LOCAL [...] 10:25 /pablo/ MIGUEL ANGEL WHITLOCK RN Metabolic Technical Assistant --- Original Document --- 03/05/24 METABOLIC CLINIC [...] several years ago. No N/V/D. Lives at [address] [place] [address], has housekeeping come in 3 days per week. floor service worker spring helps out once per week. Uses dosimeters [...] for the followin. Essential hypertension (SNOMED CT 34629730) 2. Major depressive disorder (SNOMED CT 246686187) 3. Generalized anxiety disorder (SNOMED CT 06264437) 4. Primary Obesity 5. Bronchiectasis (SNOMED CT 35974775) 6. Gastroesophageal reflux disease (SNOMED CT 273698297) 7. Bariatric Surgery Status 8. Cataracts (SNOMED CT 07881615) 9. Hypermetropia/Hyperopia 10. Astigmatism, Unspec 11. Presbyopia 12. Atrial fibrillation (SNOMED CT 46543511) 13. Varicose veins of lower extremity 14. Compulsive gambling 15. Bipolar disorder (SNOMED CT 76395666) 16. Mild cognitive disorder 17. Type 2 [...] /aneesh PHILLIPS MD PHYSICIAN Signed: 03/09/2024 14:20 ISAEL SALVADOR [facility] Mar 05, 2024 09:51 AM ADDENDUM: LOCAL TITLE: Addendum STANDARD TITLE: ADDENDUM DATE OF NOTE: MAR 05, 2024@09:51:13 ENTRY DATE: MAR 05, 2024@09:51:15 AUTHOR: INDERJIT MORGAN [place] EXP COSIGNER: URGENCY: STATUS: COMPLETED CC'ing primary [...] several years ago. No N/V/D. Lives at [address] [place] [address], has housekeeping come in 3 days per week. floor service worker spring helps out once per week. Uses dosimeters [...] for the followin. Essential hypertension (SNOMED CT 38826507) 2. Major depressive disorder (SNOMED CT 857592009) 3. Generalized anxiety disorder (SNOMED CT 61412327) 4. Primary Obesity 5. Bronchiectasis (SNOMED CT 80820961) 6. Gastroesophageal reflux disease (SNOMED CT 413267490) 7. Bariatric Surgery Status 8. Cataracts (SNOMED CT 44004614) 9. Hypermetropia/Hyperopia 10. Astigmatism, Unspec 11. Presbyopia 12. Atrial fibrillation (SNOMED CT 74407241) 13. Varicose veins of lower extremity 14. Compulsive gambling 15. Bipolar disorder (SNOMED CT 80033595) 16. Mild cognitive disorder 17. Type 2 [...] 03/09/2024 17:21 Receipt Acknowledged By: 03/10/2024 10:25 /aneesh WHITLOCK RN Metabolic Technical Assistant 03/10/2024 ADDENDUM STATUS: COMPLETED Called and spoke with . Reviewed results letter with him. He will stop the vitamin D3 supplement. He is taking ferrous sulfate as prescribed. Reports he has been having anemia for years, denies visible blood in his stool. He reports he is also drinking Ensure daily. Will alert provider to this information. /pablo/ MIGUEL ANGEL WHITLOCK RN Metabolic Technical Assistant Signed: 03/10/2024 10:33 Receipt Acknowledged By: 03/11/2024 13:51 /aneesh SALVADOR MD PHYSICIAN CATHY,INDERJIT CASAREZ [facility] Mar 05, 2024 08:58 AM INTERNAL MEDICINE [...] is better when: medication, other: lidocaine patch /pablo/ CARLOS SNYDER DIRECTOR GENERAL Signed: 03/05/2024 09:00 CARLOS SNYDER [facility] Mar 05, 2024 08:58 AM ENDOCRINOLOGY ATTENDING [...] several years ago. No N/V/D. Lives at [address] [place] [address], has housekeeping come in 3 days per week. floor service worker spring helps out once per week. Uses dosimeters [...] for the followin. Essential hypertension (SNOMED CT 85546636) 2. Major depressive disorder (SNOMED CT 574274836) 3. Generalized anxiety disorder (SNOMED CT 51393197) 4. Primary Obesity 5. Bronchiectasis (SNOMED CT 53202200) 6. Gastroesophageal reflux disease (SNOMED CT 026433493) 7. Bariatric Surgery Status 8. Cataracts (SNOMED CT 81353747) 9. Hypermetropia/Hyperopia 10. Astigmatism, Unspec 11. Presbyopia 12. Atrial fibrillation (SNOMED CT 21488339) 13. Varicose veins of lower extremity 14. Compulsive gambling 15. Bipolar disorder (SNOMED CT 14462500) 16. Mild cognitive disorder 17. Type 2 [...] 10:25 /pablo/ MIGUEL ANGEL WHITLOCK RN Metabolic Technical Assistant 03/10/2024 ADDENDUM STATUS: COMPLETED Called and spoke with . Reviewed results letter with him. He will stop the vitamin D3 supplement. He is taking ferrous sulfate as prescribed. Reports he has been having anemia for years, denies visible blood in his stool. He reports he is also drinking Ensure daily. Will alert provider to this information. /pablo/ MIGUEL ANGEL WHITLOCK RN Metabolic Technical Assistant Signed: 03/10/2024 10:33 Receipt Acknowledged By: * AWAITING SIGNATURE * ISAEL SALVADOR CATHY,INDERJIT CASAREZ [facility]
[2024-09-05 10:25] LABS: Creatinine* 1.1 mg/dL (0.5-1.5); Est. Creatinine Clearance* 55.27; Estimated Glomerular Filt Rate 70 ml/min; INR 1.17 (0.91-1.10); Prothrombin Time 15.6 Seconds
[2024-09-05 10:26] LABS: Alanine Aminotransferase* 13 U/L (4-50); Alkaline Phosphatase* 81 U/L (40-150); Anion Gap 6 mEq/L (7-15); Aspartate Amino Transferase* 18 U/L (12-35); Bilirubin Direct* 0.2 mg/dL (0.0-0.5); Bilirubin Total* 0.3 mg/dL (0.1-1.5); Blood Urea Nitrogen* 25 mg/dL (7-30); Calcium* 8.4 mg/dL (8.4-10.6); Carbon Dioxide* 31 mmol/L (20-32); Glucose* 154 mg/dL (60-115); Total Protein* 5.7 g/dL (6.0-8.3)
[2024-09-05 10:29] LABS: C Reactive Protein* 0.8 mg/dL (0.5-1.0)
[2024-09-05] MEDS: VANCOMYCIN 1.5 GM/300 ML 1.5 GM/300 ML PIGGYBACK IVPB (10:33)
[2024-09-05] MEDS: 0.9 % SODIUM CHLORIDE 250 ml 250 ML IV (10:33)
[2024-09-05] MEDS: AZITHROMYCIN 100 MG/ML inj 500 MG IVPB (10:33)
[2024-09-05 10:38] LABS: NT Pro B Type NatriureticPept* 1680 pg/mL
[2024-09-05 10:46] LABS: PCR FLU A POSITIVE PCR FLU A (Negative); PCR FLU B Negative PCR FLU B (Negative); PCR RSV Negative PCR RSV (Negative); SARS PCR* Negative SARS-CoV-2 (Negative)
[2024-09-05 10:49] LABS: Procalcitonin* 0.09 ng/mL (<0.50)
[2024-09-05] MEDS: OSELTAMIVIR PHOSPHATE 75 MG CAPSULE PO (11:00)
[2024-09-05] MEDS: OSELTAMIVIR 30 MG CAPSULE PO ×2 (11:34→21:46)
[2024-09-05] MEDS: 0.9 % SODIUM CHLORIDE 500 ML 500 ML IV (11:38)
[2024-09-05 11:53] LABS: Appearance Urine Clear (Clear); Bilirubin Urine Negative (Negative); Blood Urine Trace-intact (Negative); Color Urine Yellow (Yellow); Glucose Urine Negative (Negative); Ketones Urine Negative (Negative); Leukocyte Esterase Urine Negative (Negative); Nitrite Urine Negative (Negative); Protein Urine Negative (Negative); Urobilinogen Urine 0.2 (0.2-1.0); pH Urine 8.5 (5.0-8.5)
[2024-09-05 12:11] LABS: WBC Urine 0-2 (0-5)
--- NOTE | 2024-09-05 12:14 | ED.NURSE ---
Pt report given to sudhakar ARORA. Pt to room 279.
--- NOTE | 2024-09-05 15:43 | PC.NURSE ---
Patient arrived on the unit from the ED via stretcher. He was alert and orientedx4 with some confusion. Noted to be weak and falling asleep in the middle of conversation although he was able to answer questions appropriately. The patient was also febrile when he had just arrived on the unit, however temp normalized later. He was able to stand up with AX1 to use a urinal. Also had a few bites of food for lunch. Remains sleepy most of the shift.noted to have soft BP. ( Received 2L of fluids in ED). NSR on tele.
--- NOTE | 2024-09-05 18:47 | P.IMHP_ITS ---
Hospitalist- H&P: HPI History of Present Illness Date Seen: 09/05/24 Chief complaint: fever Narrative: Gio Mariano JR is a 78 year old male admitted to the hospital with fever cough weakness and confusion that began in the last day or 2. Patient was unable to give much history in the emergency department due to being relatively obtunded. Treated there for sepsis and has had some improvement in his mental status. Still unable to give much detail of the events of the last couple days. In the emergency department he was found to have influenza a which was thought to be the primary cause of his acute illness. Patient is unable to give much details about his past medical history. He is a patient at the [facility] primarily. Unable to get those records at this time. Other records indicate the following past medical history: Bipolar 2 dis order, history of delusions, history of hyper osmolarity, obesity status post Ina-en-Y gastric bypass, atrial fibrillation on anticoagulation, diabetes mellitus previously on insulin and now without insulin due to weight loss, cognitive impairment, GERD, hypertension. In the emergency department he was initially thought to have sepsis due to altered mental status, fever, hypotension, tachycardia. He received fluid bolus and broad-spectrum antibiotics. Eventually and influenza test came back positive and he was clinically improving it was felt that this was more likely influenza. Started on treatment with Tamiflu. When I see him he reports feeling a little better. He is not oriented to his circumstances. Speech is fluent. Review of Systems Narrative: Other than the profound weakness, fever and cough he reports no other new illness symptoms. He thinks he has been able to eat in the last 2 days but is not sure. Unclear whether he is taking his medications. 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) ?M51.26 - Other intervertebral disc displacement, lumbar region (ICD-10) Impaired cognition ?R41.89 - Other symptoms and signs involving cognitive functions and awareness (ICD-10) Hypertension (04/13/10) ?I10 - Essential (primary) hypertension (ICD-10) Bipolar disorder, unspecified ?F31.9 - Bipolar disorder, unspecified (ICD-10) Hyperosmolarity syndrome ?E87.0 - Hyperosmolality and hypernatremia (ICD-10) Gastroesophageal reflux (04/13/10) ?K21.9 - Gastro-esophageal reflux disease without esophagitis (ICD-10) COPD (chronic obstructive pulmonary disease) ?J44.9 - Chronic obstructive pulmonary disease, unspecified (ICD-10) Atrial fibrillation, chronic ?I48.20 - Chronic atrial fibrillation, unspecified (ICD-10) Diabetes mellitus, type II ?E11.9 - Type 2 diabetes mellitus without complications (ICD-10) Metabolic encephalopathy ?G93.41 - Metabolic encephalopathy (ICD-10) Surgical History (Updated 09/05/24 @ 18:59 by Khanh Jama MD) Hx of appendectomy ?Z90.49 - Acquired absence of other specified parts of digestive tract (ICD- 10) History of carpal tunnel release ?Z98.890 - Other specified postprocedural states (ICD-10) Hx of cholecystectomy ?Z90.49 - Acquired absence of other specified parts of digestive tract (ICD- 10) H/O submandibular gland removal ?Z98.890 - Other specified postprocedural states (ICD-10) ?Z90.89 - Acquired absence of other organs (ICD-10) Hx of hernia repair ?Z98.890 - Other specified postprocedural states (ICD-10) ?Z87.19 - Personal history of other diseases of the digestive system (ICD-10) Hx of tonsillectomy ?Z90.89 - Acquired absence of other organs (ICD-10) History of gastric bypass ?Z98.84 - Bariatric surgery status (ICD-10) Social History (Updated 09/05/24 @ 19:02 by Khanh Jama MD) Narrative: Patient lives in [place], probably [address] [facility], by himself. He is estranged from his family except his son, Jaun, who lives in [place]. His son does not have a telephone and cannot be contacted easily. If possible he would have his son Jaun be power of real estate attorney for healthcare decisions. He also indicates a friend and neighbor named Whit could be making decisions if necessary. He indicates full code status at this time. He gets healthcare through the [facility]. 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 What is your current living situation?: I presently have a place to live Problems where you live: no known problems Problems where you live details: N/A In the past 12 months, utilities in danger of being shut off: no In past 12 months, lack of transportation kept you from medical appts, meetings, work, or getting things needed for daily living: yes In the past 12 mos, have been you worried that your food would run out before you had money to buy more?: sometimes true In the past 12 mos, the food you bought just didn't last and you didn't have money to buy more?: sometimes true Smoking Status: Former smoker Do you use any of these nicotine containing products: None Second hand tobacco smoke exposure: No How often do you have a drink containing alcohol: monthly or less How many standard drinks containing alcohol do you have on a typical day: 1 or 2 How often do you have six or more drinks on one occasion: Never AUDIT-C Alcohol total score: 1 Non-prescribed substance use: denies use How often does anyone, including family, friends and others, physically hurt you : never How often does anyone, including family, friends and others, insult or talk down to you: never How often does anyone, including family, friends and others, threaten you with harm: never How often does anyone, including family, friends and others, scream or curse at you: never service: Yes Health Related Social Needs: food insecurity (Z59.41) and transportation insecurity (Z59.82) Meds Home Medications and Allergies Home Medications ?Medication ?Instructions ?Recorded ?Confirmed ?Type apixaban 5 mg tablet (Eliquis) 5 mg PO BID 04/24/23 09/05/24 History aripiprazole 15 mg tablet 15 mg PO DAILY 04/24/23 09/05/24 History atorvastatin 10 mg tablet 10 mg PO QHS 04/24/23 09/05/24 History bupropion HCl 150 mg 24 hr tablet, 150 mg PO QDAY 04/24/23 07/06/24 History extended release calcium 500 mg (as 2 tab PO BID 04/24/23 09/05/24 History carbonate)-vitamin D3 3.125 mcg (125 unit) tablet cholecalciferol (vitamin D3) 25 2,000 unit PO DAILY 04/24/23 09/05/24 History mcg (1,000 unit) tablet cyanocobalamin (vitamin B-12) 1,000 mcg PO DAILY 04/24/23 09/05/24 History 1,000 mcg tablet magnesium oxide 400 mg (241.3 mg 400 mg PO BID 04/24/23 09/05/24 History magnesium) tablet metformin 500 mg tablet,extended 500 mg PO DAILY 04/24/23 09/05/24 History release 24 hr metoprolol succinate 50 mg 50 mg PO DAILY 04/24/23 09/05/24 History tablet,extended release 24 hr multivitamin 1 tab PO DAILY 04/24/23 09/05/24 History mv-mn-folic 200 mcg-vit K 15 1 cap PO BID 04/24/23 09/05/24 History mcg-lutein 5 mg-zeaxanthin 1 mg capsule (PreserVision AREDS 2 Plus Multivit) omeprazole 20 mg capsule,delayed 40 mg PO BID 04/24/23 09/05/24 History release venlafaxine 150 mg 150 mg PO DAILY 04/24/23 09/05/24 History capsule,extended release 24 hr ferrous sulfate 325 mg (65 mg 325 mg PO DAILY 09/30/23 09/05/24 History iron) tablet (Daniel-Time) calcium citrate 200 mg PO BID 09/05/24 09/05/24 History Allergies Allergy/AdvReac Type Severity Reaction Status Date / Time Sulfa (Sulfonamide Allergy Mild Rash Verified 09/05/24 09:35 Antibiotics) sulfamethoxazole Allergy Mild Rash Verified 09/05/24 09:35 trimethoprim Allergy Mild Rash Verified 09/05/24 09:35 Exam Narrative: Exam Narrative: He is now awake, much improved from presentation in the emergency department. He is able to carry on a conversation but struggles to recall significant events from the last 2 days. Speech is fluent. He is mostly able to to answer simple questions. He is also mostly able to follow simple commands. Head is without trauma. Oropharynx with dry mucous membranes. Edentulous. Neck is supple without mass or adenopathy. Respirations are clear to auscultation except for occasional basilar crackle. Cardiovascular: S1, S2, regular rate and rhythm. 2/6 systolic ejection murmur heard best at the left sternal border. Abdomen: Bowel sounds active. Abdomen is soft without tenderness or mass. external genitalia normal. Extremities without edema. He moves all 4 extremities well. Const: Vital Signs, click to edit/add: Vital Signs - 24 hr 09/05/24 09:26 09/05/24 09:37 09/05/24 09:38 Temperature 103.7 F H Pulse Rate 104 H 105 H Pulse Rate [Pulse Oximeter] Pulse Rate [Right Pulse Oximeter] 102 H Respiratory Rate 24 Blood Pressure 118/65 Blood Pressure [Le ft Arm] Blood Pressure [Le ft Upper Arm] 121/72 Pulse Oximetry 93 95 [facility] 09/05/24 09:41 09/05/24 09:45 09/05/24 09:52 Temperature Pulse Rate 109 H Pulse Rate [Pulse Oximeter] Pulse Rate [Right Pulse Oximeter] Respiratory Rate Blood Pressure 114/65 Blood Pressure [Le ft Arm] Blood Pressure [Le ft Upper Arm] Pulse Oximetry 95 [address] [facility] 09/05/24 10:01 09/05/24 10:15 09/05/24 10:24 Temperature Pulse Rate 106 H 102 H 104 H Pulse Rate [Pulse Oximeter] Pulse Rate [Right Pulse Oximeter] Respiratory Rate Blood Pressure 121/66 104/54 L Blood Pressure [Le ft Arm] Blood Pressure [Le ft Upper Arm] Pulse Oximetry 97 93 [address] [facility] 09/05/24 10:30 09/05/24 10:41 09/05/24 10:46 Temperature Pulse Rate 104 H 106 H 105 H Pulse Rate [Pulse Oximeter] Pulse Rate [Right Pulse Oximeter] Respiratory Rate Blood Pressure 107/57 L Blood Pressure [Le ft Arm] Blood Pressure [Le ft Upper Arm] Pulse Oximetry 93 94 [address] 09/05/24 11:00 09/05/24 11:02 09/05/24 11:03 Temperature Pulse Rate 104 H 106 H 105 H Pulse Rate [Pulse Oximeter] Pulse Rate [Right Pulse Oximeter] Respiratory Rate Blood Pressure 97/56 L Blood Pressure [Le ft Arm] Blood Pressure [Le ft Upper Arm] Pulse Oximetry 95 95 [address] [address] [facility] 09/05/24 11:04 09/05/24 11:04 09/05/24 11:05 Temperature 101.8 F H 101.8 F H Pulse Rate Pulse Rate [Pulse Oximeter] Pulse Rate [Right Pulse Oximeter] Respiratory Rate 22 Blood Pressure Blood Pressure [Le ft Arm] Blood Pressure [Le ft Upper Arm] Pulse Oximetry 95 Oxygen Delivery Me [facility]od Room Air 09/05/24 11:15 09/05/24 11:22 09/05/24 11:38 Temperature Pulse Rate 103 H 102 H 100 Pulse Rate [Pulse Oximeter] Pulse Rate [Right Pulse Oximeter] Respiratory Rate Blood Pressure 90/52 L 88/45 L Blood Pressure [Le ft Arm] Blood Pressure [Le ft Upper Arm] Pulse Oximetry 94 94 [address] [facility] 09/05/24 11:39 09/05/24 11:42 09/05/24 11:45 Temperature Pulse Rate 102 H 101 H 101 H Pulse Rate [Pulse Oximeter] Pulse Rate [Right Pulse Oximeter] Respiratory Rate Blood Pressure 79/42 L Blood Pressure [Le ft Arm] Blood Pressure [Le ft Upper Arm] Pulse Oximetry 93 93 95 Oxygen Delivery [facility] 09/05/24 11:47 09/05/24 11:52 09/05/24 12:05 Temperature 100.5 F H Pulse Rate 99 Pulse Rate [Pulse Oximeter] 98 Pulse Rate [Right Pulse Oximeter] Respiratory Rate 22 Blood Pressure 88/53 L 98/58 L Blood Pressure [Le ft Arm] 94/57 L Blood Pressure [Le ft Upper Arm] Pulse Oximetry 96 93 Oxygen Delivery [facility] Room Air 09/05/24 12:17 09/05/24 13:46 09/05/24 15:00 Temperature 98.1 F Pulse Rate 84 Pulse Rate [Pulse Oximeter] Pulse Rate [Right Pulse Oximeter] Respiratory Rate Blood Pressure Blood Pressure [Le ft Arm] Blood Pressure [Le ft Upper Arm] Pulse Oximetry Oxygen Delivery [facility] Room Air 09/05/24 15:00 09/05/24 15:00 09/05/24 15:00 Temperature 98.7 F Pulse Rate Pulse Rate [Pulse Oximeter] 89 89 Pulse Rate [Right Pulse Oximeter] Respiratory Rate 18 18 Blood Pressure Blood Pressure [Le ft Arm] 135/76 Blood Pressure [Le ft Upper Arm] Pulse Oximetry 94 [address] [facility] Room Air Hospitalist - H&P: Result Labs Labs: Short CBC 09/05/24 Range/Units 09:45 WBC 5.26 (4.50-11.00) K/uL Hgb 10.7 L (13.5-17.5) gm/dL Hct 32.9 L (37.0-53.0) % Plt Count 215 (140-440) K/uL BMP 09/05/24 09:45 Sodium 132 L Potassium 4.0 Chloride 95 L Carbon Dioxide 31 BUN 25 Creatinine 1.1 Glucose 154 H Calcium 8.4 Liver Function 09/05/24 Range/Units 09:45 Total Bilirubin 0.3 (0.1-1.5) mg/dL Direct Bilirubin 0.2 (0.0-0.5) mg/dL AST 18 (12-35) U/L ALT 13 (4-50) U/L Alkaline Phosphatase 81 (40-150) U/L Albumin 3.7 (3.3-5.0) g/dL Urine 09/05/24 Range/Units 11:30 Urine Color Yellow (Yellow) Urine Appearance Clear (Clear) Urine pH 8.5 (5.0-8.5) Ur Specific [place] 1.020 (1.000-1.030) Urine Protein Negative (Negative) Urine Glucose (UA) Negative (Negative) ECG Attestation: I personally reviewed and interpreted this ECG as follows: (Normal sinus rhythm. No acute ST-T changes.) ECG interpretation date: 09/05/24 Imaging Chest x-ray: Radiologist's impression: INDICATION: Cough. TECHNIQUE: Chest 1 views. COMPARISON: X-ray chest June 2024. FINDINGS/IMPRESSION: No focal consolidation, effusion or pneumothorax. Borderline cardiomegaly without pulmonary edema. No acute osseous findings. Assessment and Plan Assessment and plan (1) Influenza A: Problem comment: In the last couple days patient has become acutely ill with influenza a. Details are a little unclear. Initiate Tamiflu and supportive care. Status: Acute (2) Metabolic encephalopathy: Problem comment: Likely due primarily to influenza though patient may have some underlying cognitive issues or neuro degenerative issues as well. He is clinically improved quite a bit with initial treatment for sepsis and fever Status: Acute (3) Bipolar disorder, unspecified: Problem comment: Supportive cares. Continue outpatient medications. Status: Acute (4) COPD (chronic obstructive pulmonary disease): Problem comment: Does not appear to be having a COPD exacerbation at this point. Continue to monitor Status: Acute Plan 78-year-old male admitted to the hospital with influenza a and encephalopathy likely due to influenza a. Will provide Tamiflu and supportive cares. Continue to monitor and support chronic mental health problems and other medical problems. Anticipate discharge in 2 days if no complications from influenza and he has an uncomplicated recovery. If he develops COPD exacerbation or pneumonia from influenza then may need several days in the hospital Total Time Spent Total Time Spent: Total time spent today is 75 minutes in reviewing outside records, discussing with other providers and with patient ongoing evaluation management of his acute illness
[2024-09-05] MEDS: ACETAMINOPHEN 325 MG TABLET 650 MG PO (20:21)
[2024-09-05] MEDS: ATORVASTATIN CALCIUM 10 MG TABLET PO (21:45)
[2024-09-05] MEDS: OMEPRAZOLE 20 MG CAPSULE DR 40 MG PO (21:46)
[2024-09-05] MEDS: SODIUM CHLORIDE 0.9 % (FLUSH) 10 ML SYRINGE 5 ML IVF (21:46)
[2024-09-05] MEDS: APIXABAN 5 MG TABLET PO (21:46)
[2024-09-05] MEDS: MAGNESIUM OXIDE 400 MG TABLET PO (21:46)
--- NOTE | 2024-09-05 23:53 | PC.NURSE ---
Pt arousable to name, though drowsy and is unable to maintain conversation with RN without falling asleep. Pt is not oriented, unable to use call light appropriately. Bed alarms in use. Pt febrile, prn tylenol given. Pt needs redirection. Pt in bed, appears to be resting. ?
[2024-09-06] VITALS (12 sets, daily range): BP systolic 100–134; BP diastolic 60–81; PULSE 57–94; RESP 16–24; TEMP 36.4–37.7; O2SAT 92–96
[2024-09-06] MEDS: ACETAMINOPHEN 325 MG TABLET 650 MG PO ×3 (07:01→20:57)
[2024-09-06 07:26] LABS: Hematocrit 34.5 % (37.0-53.0); Hemoglobin* 11.2 gm/dL (13.5-17.5); Immature Granulocytes Abs Auto 0.01 K/uL (0.00-0.30); Immature Granulocytes Pct Auto 0.2 %; Lymphocytes Percent Auto 17.9 % (20-44); Mean Corpuscular HGB Conc 33 gm/dL (32-36); Mean Corpuscular Hemoglobin 29 pg (26-34); Mean Corpuscular Volume 89 fL (80-100); Monocytes Percent Auto 13.7 % (0.0-11.0); Neutrophils Percent Auto 68.2 % (42.0-72.0); Platelet Count* 177 K/uL (140-440); RDW Coefficient of Variation % 13.1 % (11.5-15.5); Red Blood Count 3.86 m/uL (4.30-5.90); White Blood Count* 4.98 K/uL (4.50-11.00)
[2024-09-06 07:35] LABS: Chloride* 99 mmol/L (96-114); Potassium* 3.6 mmol/L (3.6-5.1); Sodium* 134 mmol/L (135-149)
[2024-09-06 07:37] LABS: Slide Review Reflex No
[2024-09-06 07:38] LABS: Anion Gap 7 mEq/L (7-15); Blood Urea Nitrogen* 21 mg/dL (7-30); Calcium* 7.7 mg/dL (8.4-10.6); Carbon Dioxide* 28 mmol/L (20-32); Estimated Glomerular Filt Rate 78 ml/min; Glucose* 103 mg/dL (60-115)
--- NOTE | 2024-09-06 07:49 | PC.NURSE ---
End of shift [id number] ? RN took over pt care at approximately 2300. Pt observed to sleep during majority of shift. Pt oriented to name and place. Struggled to recall and details related to situation that led to hospital stay. Appears very fatigued, noted to fall asleep while conversing with RN. Tolerating RA, regular fluids. Unable to clearly report whether or not he is uncomfortable or in pain. Mildly febrile during shift, given antipyretic medication per SEP. Pt appears to be resting comfortably in bed at end of shift with call light within reach. Expanse downtime from approximately [id number]
[2024-09-06] MEDS: METOPROLOL SUCCINATE (XL) 25 MG TAB PO (09:44)
[2024-09-06] MEDS: ARIPiprazole 10 MG TABLET 15 MG PO (09:44)
[2024-09-06] MEDS: METFORMIN ER 500 MG PO (09:45)
[2024-09-06] MEDS: OMEPRAZOLE 20 MG CAPSULE DR 40 MG PO ×2 (09:45→20:57)
[2024-09-06] MEDS: APIXABAN 5 MG TABLET PO ×2 (09:45→20:57)
[2024-09-06] MEDS: OSELTAMIVIR 30 MG CAPSULE PO ×2 (09:45→20:57)
[2024-09-06] MEDS: SODIUM CHLORIDE 0.9 % (FLUSH) 10 ML SYRINGE 5 ML IVF ×2 (09:46→20:58)
[2024-09-06] MEDS: VENLAFAXINE ER 75 MG CAPSULE 150 MG PO (09:46)
[2024-09-06] MEDS: FERROUS SULFATE 325 MG TABLET PO (09:46)
[2024-09-06] MEDS: MAGNESIUM OXIDE 400 MG TABLET PO ×2 (09:46→20:57)
--- NOTE | 2024-09-06 19:01 | PC.NURSE ---
Addendum entered by Bailey Asher RN 09/06/24 19:19: Friend Lilian was at bedside today and was updated with verbal permission from patient. Original Note: End of shift-- Pt has been pleasant and cooperative. Primarily alert and oriented, but occasional confusion noted. Pt was drowsy throughout the day. VSS and highest temp this shift was 99.8F. SPO2 maintained >90% on RA. He c/o his arms were a little sore this morning, but has denied any other pain. Expiratory rhonchi/ deep wheezes auscultated in lungs. Occasional moist, non-productive cough. Telemetry shows NSR. Murmur noted. He denied nausea and ate a regular diet independently. He has had 3 large liquid partially incontinent BMs today. He was up to the BR and chair with assist of 1, belt and walker today and tolerated it well. Report to oncoming shift.
[2024-09-06] MEDS: ATORVASTATIN CALCIUM 10 MG TABLET PO (20:57)
--- NOTE | 2024-09-06 21:52 | P.IMPN_ITS ---
Progress Note: A&P Assessment and plan (1) Influenza A: Problem details: In the last couple days patient has become acutely ill with influenza a. Initiate Tamiflu and supportive care. Status: Acute (2) Metabolic encephalopathy: Problem details: Likely due primarily to influenza though patient may have some underlying cognitive issues or neuro degenerative issues as well. He is clinically impro israel quite a bit with initial treatment for sepsis and fever. Status: Acute (3) Impaired mobility: Problem details: Patient has significantly impaired mobility which is likely primarily due to his influenza illness and metabolic encephalopathy. Anticipate improvement as his influenza illness wanes. Continue to work with therapy for safe discharge plan Status: Acute (4) Bipolar disorder, unspecified: Problem details: Supportive cares. Continue outpatient medications. Status: Acute (5) COPD (chronic obstructive pulmonary disease): Problem details: Does not appear to be having a COPD exacerbation at this point. Continue to monitor for COPD exacerbation or respiratory complications of influenza Status: Acute Plan Continue in-hospital for treatment and monitoring of influenza, metabolic encephalopathy pop, supportive cares and therapy to improve recovery and discharge to home. Time Spent With Patient Total time spent: Total time spent today is 35 minutes in evaluation management discussion with patient other providers plan of care Subjective Date Seen: 09/06/24 Interval history: Gio Mariano JR is a 78 year old male admitted to the hospital with fever cough weakness and confusion that began in the last day or 2. Patient was unable to give much history in the emergency department due to being relatively obtunded. Treated there for sepsis and has had some improvement in his mental status. Still unable to give much detail of the events of the last couple days. In the emergency department he was found to have influenza a which was thought to be the primary cause of his acute illness. Patient is unable to give much details about his past medical history. He is a patient at the [facility] primarily. Unable to get those records at this time. Other records indicate the following past medical history: Bipolar 2 disorder, history of delusions, history of hyper osmolarity, obesity status post Ina-en-Y gastric bypass, atrial fibrillation on anticoagulation, diabetes mellitus previously on insulin and now without insulin due to weight loss, cognitive impairment, GERD, hypertension. In the emergency department he was initially thought to have sepsis due to altered mental status, fever, hypotension, tachycardia. He received fluid bolus and broad-spectrum antibiotics. Eventually and influenza test came back positive and he was clinically improving it was felt that this was more likely influenza. Started on treatment with Tamiflu. When I see him he reports feeling a little better. He is not oriented to his circumstances. Speech is fluent. 09/05/2024: Patient is been hard to arouse this morning. When he is arouse he is complaining his head is in a fog. Today he is a little more oriented aware that he is in a hospital. Unable to describe significant events of the last 2 days however. Continues to have some fever. Has not been hypoxic. Therapy has assessed him and finds that he needs standby assistance for all mobility, standing transfers ambulation with a 4 wheeled walker. Exam Narrative: Exam Narrative: He is sleepy and arouses to voice. Oriented to place and person, not circumstances. Does not recall significant recent events. Dry recurrent cough noted. Respirations are clear without wheezing rales or rhonchi. Cardiovascular: S1, S2, regular rate and rhythm Const: Vital Signs, click to edit/add: Vital Signs - 24 hr 09/05/24 23:00 09/05/24 23:00 09/06/24 00:44 Temperature Pulse Rate 59 L Pulse Rate [Pulse Oximeter] Respiratory Rate 24 24 Blood Pressure [Le ft Arm] Blood Pressure [Ri ght Arm] Pulse Oximetry 92 Oxygen Delivery [facility] Room Air 09/06/24 03:00 09/06/24 07:00 09/06/24 07:00 Temperature 99.7 F H 99.7 F H Pulse Rate Pulse Rate [Pulse Oximeter] 94 78 Respiratory Rate 24 24 24 Blood Pressure [Le ft Arm] 134/81 111/61 Blood Pressure [Ri ght Arm] Pulse Oximetry 92 93 92 Oxygen Delivery [facility] Room Air Room Air Room Air 09/06/24 07:00 09/06/24 07:01 09/06/24 07:50 Temperature 99.7 F H Pulse Rate 87 Pulse Rate [Pulse Oximeter] 78 Respiratory Rate 24 Blood Pressure [Le ft Arm] Blood Pressure [Ri ght Arm] Pulse [facility]ximetry [facility] 09[facility] 08:40 09/06/24 11:00 09/06/24 12:41 Temperature 99.7 F H 99.8 F H 99.7 F H Pulse Rate Pulse Rate [Pulse Oximeter] 57 L Respiratory Rate 24 Blood Pressure [Le ft Arm] Blood Pressure [Ri ght Arm] 110/60 Pulse Oximetry 96 Oxygen Delivery [facility] Room Air 09/06/24 15:00 09/06/24 15:00 09/06/24 15:00 Temperature 99.4 F Pulse Rate Pulse Rate [Pulse Oximeter] 77 77 Respiratory Rate 16 24 24 Blood Pressure [Le ft Arm] Blood Pressure [Ri ght Arm] 100/60 Pulse Oximetry 94 94 Oxygen Delivery [facility] Room Air Room Air 09/06/24 16:10 09/06/24 20:30 Temperature 97.6 F Pulse Rate 69 Pulse Rate [Pulse Oximeter] 74 Respiratory Rate 20 Blood Pressure [Le ft Arm] 111/71 Blood Pressure [Ri ght Arm] Pulse Oximetry 94 Oxygen Delivery [facility] Room Air Documenting provider has reviewed patient's vital signs: yes Labs Labs: Laboratory Results - last 24 hr 09/06/24 07:08 WBC 4.98 RBC 3.86 L Hgb 11.2 L Hct 34.5 L MCV 89 MCH 29 MCHC 33 RDW Coeff of Maurice 13.1 Plt Count 177 Neut % (Auto) 68.2 Lymph % (Auto) 17.9 L Collier % (Auto) 13.7 H Eos % (Auto) 0.0 Baso % (Auto) 0.0 Neut # (Auto) 3.40 Lymph # (Auto) 0.90 Collier # (Auto) 0.70 Eos # (Auto) 0.00 Baso # (Auto) 0.00 Abs Immat Gran (auto) 0.01 Imm/Tot Granulo (auto) 0.2 Sodium 134 L Potassium 3.6 Chloride 99 Carbon Dioxide 28 Anion Gap 7 BUN 21 Creatinine 1.0 Estimated Creat Clear 60.80 Estimated GFR 78 Glucose 103 Calcium 7.7 L
[2024-09-07] VITALS (8 sets, daily range): BP systolic 104–125; BP diastolic 62–87; PULSE 70–88; RESP 16–20; TEMP 36.7–37.9; O2SAT 94–99
[2024-09-07] MEDS: ACETAMINOPHEN 325 MG TABLET 650 MG PO ×3 (05:09→21:12)
--- NOTE | 2024-09-07 06:52 | PC.NURSE ---
-: pleasant and cooperative. alert and oriented. calls appropriately. SBA with gb and walker. 1x BM.
[2024-09-07] MEDS: ARIPiprazole 10 MG TABLET 15 MG PO (08:57)
[2024-09-07] MEDS: OSELTAMIVIR 30 MG CAPSULE PO ×2 (08:58→20:58)
[2024-09-07] MEDS: OMEPRAZOLE 20 MG CAPSULE DR 40 MG PO ×2 (08:58→20:58)
[2024-09-07] MEDS: METOPROLOL SUCCINATE (XL) 25 MG TAB PO (08:59)
[2024-09-07] MEDS: MAGNESIUM OXIDE 400 MG TABLET PO ×2 (08:59→20:58)
[2024-09-07] MEDS: METFORMIN ER 500 MG PO (08:59)
[2024-09-07] MEDS: FERROUS SULFATE 325 MG TABLET PO (08:59)
[2024-09-07] MEDS: APIXABAN 5 MG TABLET PO ×2 (08:59→20:58)
[2024-09-07] MEDS: VENLAFAXINE ER 75 MG CAPSULE 150 MG PO (08:59)
[2024-09-07] MEDS: SODIUM CHLORIDE 0.9 % (FLUSH) 10 ML SYRINGE 5 ML IVF ×2 (09:00→20:59)
--- NOTE | 2024-09-07 09:19 | PC.SOCIAL ---
Addendum entered by TRE Mosquera 09/07/24 13:24: Social work: Called guardian listed on chart, Kimberly Cline [phone], and informed her pt may be ready for discharge tomorrow and asked about discharge plans. Kimberly has spoken with pt and states she expects him to be able to return to his independent apartment at [facility] [place] at discharge. Kimberly requested a call to go over discharge instructions and any medication changes prior to discharge. Provided Kimberly with direct phone number to the med/surg unit in case she wants to reach out to the nurse or provider directly. Kimberly was appreciative of the call from social work. Original Note: Social work: Called guardian listed on chart, Kimberly Cline [phone] and confirmed with Kimberly that she is currently apt's guardian and can be contacted for decision making. Kimberly provided a back up phone number for [facility] office [phone]. Information provided to .
--- NOTE | 2024-09-07 10:56 | NUTR.NU ---
RDN with nutrition screen related to positive skin risk. Patient admitted for influenza A, encephalopathy, and AMS. Per MD during IDT, patient has improved since admit. Current weight 168lb 11.2oz; height 5ft 8in; BMI 25.7 kg/m2. Per weight records, weight has been stable for the past year. Current diet order is Regular IDDSI Lvl 6 soft and bite-sized. Meal intakes have ranged greatly since admit, however intakes yesterday improved with 75% intake of breakfast this morning. No nutrition interventions at this time with stable weight and improved oral intakes. RDN will continue to monitor and follow-up prn.
[2024-09-07] MEDS: INSULIN ASPART 100 UNIT/ML SUBCUT (12:08)
--- NOTE | 2024-09-07 16:18 | PM.IMPN1 ---
Progress Note: A&P Assessment and plan (1) Influenza A: Problem details: In the last couple days patient has become acutely ill with influenza a. Initiate Tamiflu and supportive care. Improving Status: Acute (2) Metabolic encephalopathy: Problem details: Likely due primarily to influenza though patient may have some underlying cognitive issues or neuro degenerative issues as well. He is clinically improved quite a bit with initial treatment for sepsis and fever. Improving Status: Acute (3) Impaired mobility: Problem details: Patient has significantly impaired mobility which is likely primarily due to his influenza illness and metabolic encephalopathy. Anticipate improvement as his influenza illness wanes. Continue to work with therapy for safe discharge plan. Anticipate discharge to home. Status: Acute (4) Bipolar disorder, unspecified: Problem details: Supportive cares. Continue outpatient medications. Status: Acute (5) COPD (chronic obstructive pulmonary disease): Problem details: Does not appear to be having a COPD exacerbation at this point. Continue to monitor for COPD exacerbation or respiratory complications of influenza. Stable Status: Acute Plan Continue in hospital for 1 more day to make sure he is safe to discharge. Anticipate discharge to home possibly tomorrow. Continue to monitor for complications of influenza a. Continue to work with therapy to improve strength and mobility. Time Spent With Patient Total time spent: Total time spent today is 35 minutes in coordination of care and discussing with patient and other providers management of influenza and influenza related encephalopathy Subjective Date Seen: 09/07/24 Interval history: Gio Maraino JR is a 78 year old male admitted to the hospital with fever cough weakness and confusion that began in the last day or 2. Patient was unable to give much history in the emergency department due to being relatively obtunded. Treated there for sepsis and has had some improvement in his mental status. Still unable to give much detail of the events of the last couple days. In the emergency department he was found to have influenza a which was thought to be the primary cause of his acute illness. Patient is unable to give much details about his past medical history. He is a patient at the [facility] primarily. Unable to get those records at this time. Other records indicate the following past medical history: Bipolar 2 disorder, history of delusions, history of hyper osmolarity, obesity status post Ina-en-Y gastric bypass, atrial fibrillation on anticoagulation, diabetes mellitus previously on insulin and now without insulin due to weight loss, cognitive impairment, GERD, hypertension. In the emergency department he was initially thought to have sepsis due to altered mental status, fever, hypotension, tachycardia. He received fluid bolus and broad-spectrum antibiotics. Eventually and influenza test came back positive and he was clinically improving it was felt that this was more likely influenza. Started on treatment with Tamiflu. When I see him he reports feeling a little better. He is not oriented to his circumstances. Speech is fluent. 09/05/2024: Patient is been hard to arouse this morning. When he is arouse he is complaining his head is in a fog. Today he is a little more oriented aware that he is in a hospital. Unable to describe significant events of the last 2 days however. Continues to have some fever. Has not been hypoxic. Therapy has assessed him and finds that he needs standby assistance for all mobility, standing transfers ambulation with a 4 wheeled walker. 09/07/2024: Patient is much better today. He awakens spontaneously. He is oriented to his circumstances. He is more conversational. Therapy PE reports that he is stronger and walking better. His appetite is better. Still having fevers but improving. Coughing quite a bit without hypoxia. Exam Narrative: Exam Narrative: He is alert and appears in no distress. Speech is normal. He is pleasant and cooperative. Respirations with diminished breath sounds but no wheezing rales or rhonchi. Cardiovascular: S1, S2, regular rate and rhythm. Abdomen is soft without tenderness or mass. Extremities without edema. Const: Vital Signs, click to edit/add: Vital Signs - 24 hr 09/06/24 20:30 09/06/24 23:00 09/06/24 23:00 Temperature 97.6 F 99.2 F Pulse Rate [Pulse Oximeter] 74 84 Respiratory Rate 20 20 20 Blood Pressure [Le ft Arm] 111/71 118/70 Pulse Oximetry 94 93 93 Oxygen Delivery Me thod Room Air Room Air Room Air 09/06/24 23:00 09/07/24 03:00 09/07/24 07:00 Temperature 99.2 F Pulse Rate [Pulse Oximeter] 83 88 Respiratory Rate 20 20 16 Blood Pressure [Le ft Arm] 124/87 Pulse Oximetry 95 Oxygen Delivery Me thod Room Air 09/07/24 07:00 09/07/24 07:00 09/07/24 08:59 Temperature 100.3 F H 100.3 F H Pulse Rate [Pulse Oximeter] 88 Respiratory Rate 16 16 Blood Pressure [Le ft Arm] 123/76 Pulse Oximetry 94 94 Oxygen Delivery Me thod Room Air Room Air 09/07/24 10:40 09/07/24 10:41 Temperature 98.7 F 98.7 F Pulse Rate [Pulse Oximeter] 82 Respiratory Rate 18 Blood Pressure [Le ft Arm] 104/63 Pulse Oximetry 94 Oxygen Delivery Me thod Room Air Documenting provider has reviewed patient's vital signs: yes
--- NOTE | 2024-09-07 19:21 | PC.NURSE ---
End of shift: patient VSS and on RA. Patient has a productive cough, encouraged to spit out any phlegm. slight temp this AM and PRN tylenol administered w/relief. Patient up to chair for meals, ambulating hallway with SBA walker/GB. Patient tolerating a reg. diabetic diet.
[2024-09-07] MEDS: ATORVASTATIN CALCIUM 10 MG TABLET PO (20:58)
[2024-09-08 03:00] VITALS: BP 117/75; PULSE 74; RESP 17; TEMP 36.5; O2SAT 97
--- NOTE | 2024-09-08 07:19 | PC.NURSE ---
End of shift report [id number]: Alert and oriented x4. Patient continues with coarse, moist cough patient is able to bring up small amounts of thick white sputum. Inspiratory and expiratory rhonchi on auscultation. O2 sats 97-99% on room air. Afebrile throughout this shift. Patient did report a mild headache, pain to head resolved with PRN tylenol. Transfers and ambulates with SBA with walker and gait belt.
[2024-09-08 07:54] VITALS: BP 103/70; PULSE 96; RESP 16; TEMP 37.3; O2SAT 95
[2024-09-08] MEDS: MAGNESIUM OXIDE 400 MG TABLET PO (08:25)
[2024-09-08] MEDS: OMEPRAZOLE 20 MG CAPSULE DR 40 MG PO (08:25)
[2024-09-08] MEDS: METFORMIN ER 500 MG PO (08:26)
[2024-09-08] MEDS: OSELTAMIVIR 30 MG CAPSULE PO (08:26)
[2024-09-08] MEDS: VENLAFAXINE ER 75 MG CAPSULE 150 MG PO (08:26)
[2024-09-08] MEDS: APIXABAN 5 MG TABLET PO (08:26)
[2024-09-08] MEDS: FERROUS SULFATE 325 MG TABLET PO (08:26)
[2024-09-08] MEDS: ARIPiprazole 10 MG TABLET 15 MG PO (08:26)
[2024-09-08] MEDS: METOPROLOL SUCCINATE (XL) 25 MG TAB PO (08:26)
[2024-09-08] MEDS: SODIUM CHLORIDE 0.9 % (FLUSH) 10 ML SYRINGE 5 ML IVF (08:27)
--- NOTE | 2024-09-08 16:36 | PC.SOCIAL ---
Discharge plans: Prior to discharge, spoke with guardian who is aware and agrees with discharge home today with resumption of home health with [facility]. Called [facility] and spoke with Patricia Duenas who confirmed they will resume skilled home care for medication management and home making serves and will schedule a visit for morning. Secure emailed orders for resumption of home care to [facility].
--- NOTE | 2024-09-08 17:12 | P.DS_ITS ---
DS: Providers Provider Date Seen: 09/08/24 Date of admission: 09/05/24 12:48 Primary care physician: Sonia Ordaz MD Admitting Clinician: Khanh Jama MD Attending Physician on discharge: Khanh Jama MD Date of Discharge: 09/08/24 DS: Diagnosis Discharge Diagnosis (1) Influenza A: Status: Acute Problem details: In the last couple days patient has become acutely ill with influenza a. Initiate Tamiflu and supportive care. Improving day by day. (2) Metabolic encephalopathy: Status: Acute Problem details: Likely due primarily to influenza though patient may have some underlying cognitive issues or neuro degenerative issues as well. He is clinically improved quite a bit with initial treatment for sepsis and fever. Improving day by day. (3) Impaired mobility: Status: Acute Problem details: Patient has significantly impaired mobility which is likely primarily due to his influenza illness and metabolic encephalopathy. Anticipate improvement as his influenza illness wanes. Continue to work with therapy for safe discharge plan. Now ambulating without assistance with his walker. (4) Bipolar disorder, unspecified: Status: Acute Problem details: Supportive cares. Continue outpatient medications. (5) COPD (chronic obstructive pulmonary disease): Status: Acute Problem details: Does not appear to be having a COPD exacerbation at this point. Continue to monitor for COPD exacerbation or respiratory complications of influenza. Stable DS: Summary Hospital Course Hospital Course: Gio Mariano JR is a 78 year old male admitted to the hospital with fever cough weakness and confusion that began in the last day or 2. Patient was unable to give much history in the emergency department due to being relatively obtunded. Treated there for sepsis and has had some improvement in his mental status. Still unable to give much detail of the events of the last couple days. In the emergency department he was found to have influenza a which was thought to be the primary cause of his acute illness. Patient is unable to give much details about his past medical history. He is a patient at the [facility] primarily. Unable to get those records at this time. Other records indicate the following past medical history: Bipolar 2 disorder, history of delusions, history of hyper osmolarity, obesity status post Ina-en-Y gastric bypass, atrial fibrillation on anticoagulation, diabetes mellitus previously on insulin and now without insulin due to weight loss, cognitive impairment, GERD, hypertension. In the emergency department he was initially thought to have sepsis due to altered mental status, fever, hypotension, tachycardia. He received fluid bolus and broad-spectrum antibiotics. Eventually and influenza test came back positive and he was clinically improving it was felt that this was more likely influenza. Started on treatment with Tamiflu. When I see him he reports feeling a little better. He is not oriented to his circumstances. Speech is fluent. 09/05/2024: Patient is been hard to arouse this morning. When he is arouse he is complaining his head is in a fog. Today he is a little more oriented aware that he is in a hospital. Unable to describe significant events of the last 2 days however. Continues to have some fever. Has not been hypoxic. Therapy has assessed him and finds that he needs standby assistance for all mobility, standing transfers ambulation with a 4 wheeled walker. 09/07/2024: Patient is much better today. He awakens spontaneously. He is oriented to his circumstances. He is more conversational. Therapy PE reports that he is stronger and walking better. His appetite is better. Still having fevers but improving. Coughing quite a bit without hypoxia. 09/08/2024: Patient is approaching being back to normal with his mentation, strength and mobility. He is able to carry on a conversation without difficulty. Mental slowness and brain fog and sleepiness have resolved. Sense of humor has returned. Therapy believes he is back to his baseline mobility. Status at Discharge Functional status at discharge: uses cane/walker Overall status at discharge: patient is back to baseline Time Spent with Patient Time attestation: Total time spent providing and/or coordinating discharge services: 35 minutes Time spent: Greater than 30 minutes Exam Narrative: Exam Narrative: He is alert and appears in no distress. Mood and affect are bright. Speech is normal. Respirations are clear to auscultation. Diminished breath sounds with rare crackles. No consolidation. No wheezing. Cardiovascular: S1, S2, regular rate and rhythm. Abdomen is soft without tenderness or mass. Const: Vital Signs, click to edit/add: Vital Signs - 24 hr 09/07/24 19:00 09/07/24 23:00 09/07/24 23:00 Temperature 98.8 F Pulse Rate [Pulse Oximeter] 81 81 Respiratory Rate 18 16 16 Blood Pressure [Le ft Arm] 125/75 Pulse Oximetry 98 99 Oxygen Delivery Me thod Room Air Room Air 09/07/24 23:00 09/08/24 03:00 09/08/24 07:54 Temperature 98.1 F 97.7 F Pulse Rate [Pulse Oximeter] 82 74 Respiratory Rate 16 17 16 Blood Pressure [Le ft Arm] 118/72 117/75 Pulse Oximetry 99 97 95 Oxygen Delivery Me thod Room Air Room Air Room Air 09/08/24 07:54 Temperature 99.2 F Pulse Rate [Pulse Oximeter] 96 Respiratory Rate 16 Blood Pressure [Le ft Arm] 103/70 Pulse Oximetry 95 Oxygen Delivery Me thod Room Air Documenting provider has reviewed patient's vital signs: yes DS: Data Data Completed and Pending Labs on day of discharge: Preliminary micro results at discharge 09/05/24 09:45 Blood Culture - Preliminary Blood NO GROWTH AFTER 72 HOURS Imaging Chest x-ray: Radiologist's impression: INDICATION: Cough. TECHNIQUE: Chest 1 views. COMPARISON: X-ray chest June 2024. FINDINGS/IMPRESSION: No focal consolidation, effusion or pneumothorax. Borderline cardiomegaly without pulmonary edema. No acute osseous findings. Discharge Plan Discharge Disposition: Home, Self-Care Date of Admission: 09/05/24 12:48 Attending Provider on Discharge: Khanh Jama Primary Care Provider: Sonia Ordaz Condition: Improved Anticipated Discharge Date/Time: 09/08/24 12:00 Discharge Medications: New oseltamivir [Tamiflu] 30 mg capsule 30 mg PO BID 5 Days Qty: 4 0RF Continued cholecalciferol (vitamin D3) 25 mcg (1,000 unit) tablet 2,000 unit PO DAILY cyanocobalamin (vitamin B-12) 1,000 mcg tablet 1,000 mcg PO DAILY multivitamin Tablet 1 tab PO DAILY venlafaxine 150 mg capsule,extended release 24hr 150 mg PO DAILY PreserVision AREDS 2 Plus MV 200 mcg-15 mcg- 5 mg-1 mg capsule 1 cap PO BID magnesium oxide 400 mg (241.3 mg magnesium) tablet 400 mg PO BID omeprazole 20 mg capsule,delayed release(DR/EC) 40 mg PO BID calcium carbonate-vitamin D3 500 mg-3.125 mcg (125 unit) tablet 2 tab PO BID metformin 500 mg tablet extended release 24 hr 500 mg PO DAILY Eliquis 5 mg tablet 5 mg PO BID aripiprazole 15 mg tablet 15 mg PO DAILY atorvastatin 10 mg tablet 10 mg PO QHS calcium citrate 200 mg (950 mg) tablet 200 mg PO BID albuterol sulfate 90 mcg/actuation aerosol powdr breath activated 1 inh inhalation QID PRN metoprolol succinate [Toprol XL] 25 mg tablet extended release 24 hr 75 mg PO DAILY ferrous sulfate [Daniel-Time] 325 mg (65 mg iron) tablet 325 mg PO DAILY Discharge Orders: Discharge Order (Routine); Ordered 09/08/24 Ordered By: Khanh Jama Patient Education: Oseltamivir (By mouth) (Tamiflu) Additional Instructions: You are recovering from influenza a. You are likely to continue to cough for a week or 2. Your strength, cognitive function, appetite and energy should return to normal in the next week or so. See your doctor if you are not getting better or if you get worse. Activity Level: Activity as Tolerated and Use Walker Discharge Diet: Regular Follow Up Appointments: Sonia Ordaz MD [Primary Care Provider] - (follow up with the [facility] next week ) Forms: [employer] Info Instructions Discharge Comments: Resume [facility] senior care and homemaker services.
== END 2024-09-08 15:39 | disposition home or self-care (01) | DRG 193 ==
LOC: ED 10:16 → MEDSURG 11:32
PROVIDERS: Admitting Provider Family Medicine; Emergency Provider Family Medicine; PCP Hospitalist; Visit Provider Family Medicine
DX: J10.1 Influenza due to other identified influenza virus with other respiratory manifestations (principal); G93.41 Metabolic encephalopathy; F31.81 Bipolar II disorder; I48.20 Chronic atrial fibrillation, unspecified; J44.9 Chronic obstructive pulmonary disease, unspecified; E11.9 Type 2 diabetes mellitus without complications; Z79.84 Long term (current) use of oral hypoglycemic drugs; I10 Essential (primary) hypertension; E66.9 Obesity, unspecified; Z98.84 Bariatric surgery status; Z87.891 Personal history of nicotine dependence; Z59.41 Food insecurity; Z59.82 Transportation insecurity; K21.9 Gastro-esophageal reflux disease without esophagitis; Z74.09 Other reduced mobility; Z68.25 Body mass index [BMI] 25.0-25.9, adult
CPT/HCPCS: 36415; 51798; 71045; 80048; 80076; 81001; 82962; 83605; 83880; 84145; 85025; 85610; 86140; 87040; 87631; 93005; 94761; 97116; 97163; 97165; 97530; 97535; 99285; A9270; J0456; J2543; J3372; J7030; J7050

== ENCOUNTER 2024-09-23 14:16 | Outpatient (CLI) | payer MEDICARE, MEDICAID, SELFPAY | END 2024-09-23 14:17 | disposition home or self-care (01) | PROVIDERS: PCP Hospitalist; Visit Provider Student in an Organized Health Care Education/Training Program | DX: R06.09 Other forms of dyspnea (principal); R05.9 Cough, unspecified | CPT/HCPCS: A0425; A0427 ==

== ENCOUNTER 2025-06-08 13:09 | Emergency (ER) | payer MEDICARE, MEDICAID, SELFPAY ==
--- OUTSIDE RECORDS SUMMARY | 2025-06-08 13:12 | XMS_ITS | Encounter Summary ---
Author Organization [facility] Address [address] [place] [address]. [place] [address] Care Team Providers Care Plant Custodian Name Role Phone None Primary Care Provider Unavailabl e No Ref-Primary, Physician Primary Care Provider Encounter Details Date Type Department Care Team (Late st Contact Info) Description 07/07/[address], [address] [place] [address] Gretta Ellis MD [place] [address] Social History Tobacco Use Types Packs/Day Years Used Date Smoking Tobacco: Former Cigarettes 3 30 0 10/15/1963 - 10/14/1993 Pipe Cigars Alcohol Use Standard Drinks/Week Comments Yes 5 (1 standard drink = 0.6 oz pur e alcohol) rare Sex and Gender Information Value Date Recorded Sex Assigned at Not on file Legal Sex Male 3:36 AM 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 Gender Identity Not on file Sexual Orientation Not on file documented as of this encounter Plan of Treatment Not on file documented as of this encounter Visit Diagnoses Not on filedocumented in this encounter Additional Health Concerns Infection Onset Date Last Indicated Resolved Time MRSA-Contact Isolation Comment:Infection erroneous 07/31/2021 1 1:02 AM 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 MRSA 08/17/2021 08/17/2021 documented as of this encounter Care Teams Plant Custodian Relationship Specialty Start Date End Date None PCP - General 02/05/03 03/28/17 No Ref-Primary, Physician PCP - General 10/22/24 documented as of this encounter
--- OUTSIDE RECORDS SUMMARY | 2025-06-08 13:12 | XMS_ITS | Encounter Summary ---
Author Organization [facility] Address [address] [place] [address]. [place] [address] Care Team Providers Care Ethylbenzene Converter Operator Name Role Phone None Primary Care Provider Unavailabl e No Ref-Primary, Physician Primary Care Provider Encounter Details Date Type Department Care Team (Late st Contact Info) Description 06/16/2002 [facility] Health Information Management [address] [place] [address] Scan, Non-Provider HISTORICAL [place] RECORD Social History Tobacco Use Types Packs/Day Years Used Date Smoking Tobacco: Never Assessed Adolescent Education Answer Date Record ed Getting School Help Needed Not on file 05/04 Sex and Gender Information Value Date Recorded Sex Assigned at Not on file Legal Sex Male 3:36 AM CONVENTIONS ASSISTANT Gender Identity Not on file Sexual Orientation Not on file documented as of this encounter Plan of Treatment Not on file documented as of this encounter Visit Diagnoses Not on filedocumented in this encounter Additional Health Concerns Infection Onset Date Last Indicated Resolved Time MRSA-Contact Isolation Comment:Infection erroneous 07/31/2021 1 1:02 AM CONVENTIONS ASSISTANT MRSA 08/17/2021 08/17/2021 documented as of this encounter Care Teams Ethylbenzene Converter Operator Relationship Specialty Start Date End Date None PCP - General 02/05/03 03/28/17 No Ref-Primary, Physician PCP - General 10/22/24 documented as of this encounter
--- OUTSIDE RECORDS SUMMARY | 2025-06-08 13:12 | XMS_ITS | Encounter Summary ---
Author Organization [place] Address [address] [place] [address]. [place] [address] Care Team Providers Care Personal Injury Specialist Name Role Phone None Primary Care Provider Unavailabl e No Ref-Primary, Physician Primary Care Provider Encounter Details Date Type Department Care Team (Late st Contact Info) Description 01/08/2007 [facility] Refill [address] [address] Daniele Art MD [address] [place], [place] [id number] Social History Tobacco Use Types Packs/Day Years Used Date Smoking Tobacco: Former Cigarettes 3 30 0 10/15/1963 - 10/14/1993 Pipe Cigars Alcohol Use Standard Drinks/Week Comments Yes 5 (1 standard drink = 0.6 oz pur e alcohol) rare Sex and Gender Information Value Date Recorded Sex Assigned at Not on file Legal Sex Male 3:36 AM CUT [employer] Gender Identity Not on file Sexual Orientation Not on file documented as of this encounter Plan of Treatment Not on file documented as of this encounter Visit Diagnoses Not on filedocumented in this encounter Additional Health Concerns Infection Onset Date Last Indicated Resolved Time MRSA-Contact Isolation Comment:Infection erroneous 07/31/2021 1 1:02 AM CUT [employer] MRSA 08/17/2021 08/17/2021 documented as of this encounter Care Teams Personal Injury Specialist Relationship Specialty Start Date End Date None PCP - General 02/05/03 03/28/17 No Ref-Primary, Physician PCP - General 10/22/24 documented as of this encounter
--- OUTSIDE RECORDS SUMMARY | 2025-06-08 13:13 | XMS_ITS | Clinical Summary ---
Author Organization [place] Address Critical access hospital0 [facility] [place] [address] Care Team Providers Care Vinyl Cutter Name Role Phone No Ref-Primary, Physician Primary Care Provider Allergies Active Allergy Reactions Criticality Noted Date Comments Acetaminophen 10/14/2002 PERCOCET-RASH DARVOCET-NIGHT TERRORS Sulfamethoxazole-Trimethoprim 2002 BACTRIM Medications CENTRUM SILVER OR TABS 1 TABLET DAILY 30 0 3 Active B-100 COMPLEX CR OR TBCR Active CALCIUM + D 600-200 MG-IU OR TABS 2/DAY Active ASPIRIN 81 MG OR TABS 1 tab po QD (Once per day) 100 3 5 Active GLUCOSAMINE-CHOND ROITIN 750-600 MG OR TABS 1 tablet BID 0 5 Active ANDROGEL 50 MG/5GM TD GELIndications:Ty pe II or unspecified type diabetes mellitus without mention of complication, not stated as uncontrolled apply to shoulders daily 90 3 5 Active PREVACID 30 MG OR CPDRIndications:E sophageal reflux 1 CAPSULE BID 180 3 5 Active WELLBUTRIN XL 300MGIndications: Anxiety state, unspecified 1 tablet daily 60 5 6 Active BUSPIRONE HCL 15 MG OR TABSIndications:A nxiety state, unspecified take one tablet twice daily 60 5 6 Active HYOSCYAMINE SULFATE 0.125 MG SL SUBLIndications:I rritable bowel syndrome PRN 90 2 7 Active HYOSCYAMINE 0.375 MG OR [id number]:I rritable bowel syndrome 1 CAPSULE TWICE DAILY 60 5 200 7 Active Active Problems Problem Noted Date Diagnosed Date Coronary atherosclerosis 03/13/2004 Overview (04/28/2015): Problem list name updated by automated process. Provider to review Esophageal reflux 03/13/2004 Essential hypertension, benign 03/13/2004 Anxiety state 03/13/2004 Overview (04/28/2015): Problem list name updated by automated process. Provider to review Irritable bowel syndrome 03/13/2004 Paroxysmal supraventricular tachycardia 03/13/20 04 Overview (03/13/2004): resolved Impotence of organic origin 10/14/2002 Obesity 10/14/2002 Overview (04/28/2015): Problem list name updated by automated process. Provider to review Diabetes mellitus, type 2 10/14/2002 Overview (04/28/2015): Problem list name updated by automated process. Provider to review Loss of weight 10/14/2002 Immunizations Immunization Administration Dates Next Due Influenza (IIV3) PF 05/22/2008,05/20/1998 Pneumococcal 23 valent 07/20/1998 Family History Medical History Relation Comments C.A.D. Father Hypertension Father Cancer - colorectal Mother Breast Cancer No family hx of Cerebrovascular Disease No family hx of Diabetes No family hx of Prostate Cancer No family hx of Relation Status Comments Brother Alive Father Mother Alive Sister 1 Alive Sister 2 Alive Social History Tobacco Use Types Packs/Day Years Used Date Smoking Tobacco: Former Cigarettes 3 30 0 10/15/1963 - 10/14/1993 Pipe Cigars Alcohol Use Standard Drinks/Week Comments Yes 5 (1 standard drink = 0.6 oz pur e alcohol) rare Adolescent Education Answer Date Record ed Getting School Help Needed Not on file 05/04 Sex and Gender Information Value Date Recorded Sex Assigned at Not on file 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 Gender Identity Not on file Sexual Orientation Not on file Last Filed Vital Signs Vital Sign Reading Time Taken Comments Blood Pressure 122/76 09/05/2004 7:46 AM FARM HAND Pulse 88 01/26/2003 10:30 AM CDT Temperature 36.7 C (98 F) 01/26/2003 10:30 AM CDT Respiratory Rate 16 10/14/2002 11:00 AM FARM HAND Oxygen Saturation - - Inhaled Oxygen Concentration - - Weight 103.6 kg (228 lb 8 oz) 09/05/2004 7:46 AM FARM HAND Height 178.4 cm (5' 10.25) 09/05/2004 7:[address] Body Mass Index 32.55 09/05/2004 7:46 AM FARM HAND Plan of Treatment Health Maintenance Due Date Last Done Comments ADVANCE CARE PLANNING 1945 ANNUAL REVIEW OF HM ORDERS 1945 DIABETIC FOOT EXAM 1945 EYE EXAM 1945 HEPATITIS C SCREENING 10/11/1965 A1C 03/05/2005 09/05/2004, 05/30, 01/26/2003, Additional history exists BMP 09/05/2005 09/05/2004, 05/30, 01/26/2003, Additional history exists LIPID 09/05/2005 09/05/2004, 07/2002, 10/23/2002, Additional history exists MICROALBUMIN 09/05/2005 09/05/2004 LUNG CANCER SCREENING 06/16/2011 06/16/2010 FALL RISK ASSESSMENT 10/11/2012 MEDICARE ANNUAL WELLNESS VISIT 10/11/2012 09/05/2004 PHQ-2 (once per calendar year) 2024 COVID-19 VACCINE ( season) 2025 06/03/2024, 11/29/2021, 07/20/2021, Additional history exists INFLUENZA VACCINE (#1) 2025 , 08/15/2022, 05/19/2021, Additional history exists DTAP/TDAP/TD VACCINE (4 - Td or Tdap) 07/13/2034 07/13/2024, 03/16/2013, 07/29/2007 TSH W/FREE T4 REFLEX Discontinued 09/05/2004, 06/19/20 02 ZOSTER VACCINE Completed 12/21/2021, 03/2022, 10/27/2018, Additional history exists PNEUMOCOCCAL VACCINE 50+ YEARS Completed 04/22/2024, 11/12/2016, 09/27/2015, Additional history exists RSV VACCINE Completed 10/07/2024 HPV VACCINE (No Doses Required) Completed MENINGITIS VACCINE Aged Out No longer eligible based on patient's age to complete this topic Procedures Procedure Name Priority Date/Time Associated Diagnosis Comments CT CHEST W/O CONTRAST Routine 06/16/2010 12:17 PM FARM HAND HCL ALBUMIN URINE (INC CREAT) Routine 09/05/2004 8:34 AM FARM HAND DIABETES UNCOMPL ADULT-TYPE II ZZHCL TSH W/FREE T4 REFLEX Routine 09/05/2004 8:25 AM FARM HAND DIABETES UNCOMPL ADULT-TYPE II CL AFF A.M.A. LIPID PANEL Routine 09/05/2004 8:25 AM FARM HAND DIABETES UNCOMPL ADULT-TYPE II HCL COMPREHENSIVE METABOLIC PANEL Routine 09/05/2004 8:25 AM FARM HAND Routine Medical Exam DIABETES UNCOMPL ADULT-TYPE II ZZHCL GLYCATED HEMOGLOBIN Routine 09/05/2004 8:25 AM FARM HAND DIABETES UNCOMPL ADULT-TYPE II from Last 3 Months or Most Recently Relevant to Health Maintenance Results * CT Chest w/o contrast (06/16/2010 12:17 PM FARM HAND) Anatomical Region Laterality Modality Chest, SUBRAD CT BODY, UMP CT CHEST Computed Tomography 06/16/2010 12:1 7 PM FARM HAND Impressions 06/16/2010 3:[address] CHEST WITHOUT CONTRAST Jun 16, 2010 12:17:00 PM HISTORY: Chronic cough. TECHNIQUE: Scans obtained from the apices through the diaphragm without IV contrast. COMPARISON: Limited comparison to the lung bases at CT abdomen 03/03/2004. FINDINGS: No acute mediastinal abnormality. Calcified mediastinal lymph nodes. No chest effusions. Postoperative change of the stomach. Small fluid distends the esophagus at the mid chest. Coronary artery calcifications. No adenopathy identified reaching size criteria for significance. A few small mediastinal lymph nodes incidentally noted. Upper abdomen images show cholecystectomy surgical change but no acute abnormalities. Some vague low density at the gallbladder fossa is identified on images 58 through 60 series 3 and on adjacent levels. This is felt to be indeterminate but may represent an atypical appearing cystic lesion given its low density. No lobar pneumonia. Stable appearing linear and nodular densities at the base of the right lower lobe on image 47 series 4, a finding that may represent some subpleural scarring without change since 2003. Linear atelectasis at the left lower lobe base is identified on image 47 series 4. Small tree-in-bud opacity at the superior segment left lower lobe is seen on image 25 series 4 and to a lesser degree within the midportion of the left lower lobe as well, along with the left lower lobe base. Very mild left lower lobe bronchiectasis suggested at high resolution imaging. No air trapping or pulmonary fibrosis identified. IMPRESSION: 1. Very mild tree-in-bud opacity involving the left lower lobe, mostly within the superior segment. Some associated very mild left lower lobe bronchiectasis and scarring. These imaging findings may be seen with a chronic infectious or inflammatory etiology. 2. Coronary artery calcifications. 3. Old granulomatous disease of the chest. 4. Within the central liver at the gallbladder fossa is the finding of lobulated low density that is felt to be indeterminate. Recommend further imaging characterization with MRI or CT liver protocol. 5. Some scarring at the subpleural aspect of the right lower lobe base has been stable since 2003, suggesting a benign etiology. Anjum Campos MD IMG CT ORDERABLES Edited * MICROALBUMIN (INC URINE CREAT) (09/05/2004 8:34 AM FARM HAND) Albumin Urine mg/L 5 mg/L [facility] Albumin Urine mg/g Cr 3.41 0 - 20 mg/g Cr [facility] 09/05/2004 8:34 AM FARM HAND 09/05/2004 8:35 AM FARM HAND us Trip Ken MD LABORATORY Final Result [facility] [address] [place] [address] * (ABNORMAL) A.M.A. COMPREHENSIVE MET.PANEL (09/05/2004 8:25 AM FARM HAND) Sodium 145(H) 133 - 144 mmol/L [facility] Potassium 3.5 3.4 - 5.3 mmol/L [facility] Chloride 106 94 - 109 mmol/L [facility] Carbon Dioxide 28 20 - 32 mmol/L [facility] Anion Gap 11 6 - 17 mmol/L [facility] Glucose 93 60 - 110 mg/dL [facility] Urea Nitrogen 16 7 - 30 mg/dL [facility] Creatinine 1.00 0.80 - 1.50 mg/dL [facility] GFR Estimate >80 >60 mL/min/1.7 m2 [facility] GFR Estimate If Black >80 >60 mL/min/1.7 m2 [facility] Calcium 9.2 8.5 - 10.4 mg/dL [facility] Bilirubin Total 0.9 0.2 - 1.3 mg/dL [facility] Albumin 4.0 3.2 - 4.5 g/dL [facility] Protein Total 6.6 6.0 - 8.2 g/dL [facility] Alkaline Phosphatase 87 40 - 150 U/L [facility] ALT 23 0 - 70 U/L [facility] AST 26 0 - 55 U/L [facility] 09/05/2004 8:25 AM FARM HAND 09/05/2004 8:26 AM FARM HAND us Trip Ken MD LABORATORY Final Result Performing Organization Address [facility] Co de Phone Number [facility] [address] [facility] [place] [address] * TSH W/FREE T4 REFLEX (09/05/2004 8:25 AM FARM HAND) TSH 2.50 0.4 - 5.0 mU/L [facility] 09/05/2004 8:25 AM FARM HAND 09/05/2004 8:26 AM FARM HAND Trip Ken MD LABORATORY Final Result Performing Organization Address City/[facility]/ZIP Co de Phone Number [facility] [address] [place] [address] * HEMOGLOBIN A1C (09/05/2004 8:25 AM FARM HAND) Hemoglobin A1C 5.8 4.3 - 6.0 % [facility] 09/05/2004 8:25 AM FARM HAND 09/05/2004 8:26 AM FARM HAND Trip Ken MD LABORATORY Final Result [facility] [address] [place] [address] * A.M.A. LIPID PANEL (09/05/2004 8:25 AM FARM HAND) Cholesterol 173 0 - 200 mg/dL [facility] Comment: Cholesterol Reference Range: <200 The NCEP recommends further evaluation of: 1. Patients with cholesterol greater than 200 mg/dL if additional risk factors are present. 2. All patients with a cholesterol greater than 240 mg/dL. Triglycerides 75 0 - 150 mg/dL [facility] HDL Cholesterol 57 >40 mg/dL [facility] LDL Cholesterol Calculated 101 0 - 129 mg/dL [facility] VLDL-Cholesterol 15 0 - 30 mg/dL [facility] Cholesterol/HDL Ratio 3.1 0.0 - 5.0 [facility] 09/05/2004 8:25 AM FARM HAND 09/05/2004 8:26 AM FARM HAND Trip Ken MD LABORATORY Final Result [facility] [address] [facility] [place] [address] from Last 3 Months or Most Recently Relevant to Health Maintenance Additional Health Concerns Infection Onset Date Last Indicated MRSA 08/17/2021 08/17/2021 Insurance [facility] [place] [address] [facility] Care Teams Vinyl Cutter Relationship Specialty Start Date End Date No Ref-Primary, Physician PCP - General 10/22/24
--- OUTSIDE RECORDS SUMMARY | 2025-06-08 13:13 | XMS_ITS | Encounter Summary ---
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
--- OUTSIDE RECORDS SUMMARY | 2025-06-08 13:13 | XMS_ITS | Encounter Summary ---
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
--- OUTSIDE RECORDS SUMMARY | 2025-06-08 13:13 | XMS_ITS | Encounter Summary ---
Author Organization [place] Address [address] [place] [address]. [place] [address] Care Team Providers Care Senior Product Development Scientist Name Role Phone None Primary Care Provider Unavailabl e No Ref-Primary, Physician Primary Care Provider Encounter Details Date Type Department Care Team (Late st Contact Info) Description 04/21/2002 Abstract M [facility] Health Information Management [address] [facility] [facility] [address] [place] [phone] Scan, Non-Provider HISTORICAL [place] RECORD Social History Tobacco Use Types Packs/Day Years Used Date Smoking Tobacco: Never Assessed Adolescent Education Answer Date Record ed Getting School Help Needed Not on file 05/04 Sex and Gender Information Value Date Recorded Sex Assigned at Not on file Legal Sex Male 3:36 AM SHIFT MGR Gender Identity Not on file Sexual Orientation Not on file documented as of this encounter Plan of Treatment Not on file documented as of this encounter Visit Diagnoses Not on filedocumented in this encounter Additional Health Concerns Infection Onset Date Last Indicated Resolved Time MRSA-Contact Isolation Comment:Infection erroneous 07/31/2021 1 1:02 AM SHIFT MGR MRSA 08/17/2021 08/17/2021 documented as of this encounter Care Teams Senior Product Development Scientist Relationship Specialty Start Date End Date None PCP - General 02/05/03 03/28/17 No Ref-Primary, Physician PCP - General 10/22/24 documented as of this encounter
[2025-06-08 13:15] VITALS: BP 90/64; PULSE 103; RESP 20; TEMP 36.8; O2SAT 97; BMI 22.7
[2025-06-08 14:08] LABS: PCR FLU A Negative PCR FLU A (Negative); PCR FLU B Negative PCR FLU B (Negative); PCR RSV Negative PCR RSV (Negative); SARS PCR* Negative SARS-CoV-2 (Negative)
[2025-06-08 14:47] VITALS: BP 117/66; PULSE 103; RESP 20; O2SAT 99
--- NOTE | 2025-06-08 14:53 | CRLHL7_ITS ---
For Patients: As a result of the Century Cures Act, medical imaging exams and procedure reports are released immediately into your electronic medical record. You may view this report before your referring provider. If you have questions, please contact your health care provider. INDICATION: . Headache TECHNIQUE: CT head without contrast. COMPARISON: None. FINDINGS: No acute infarct or intracranial hemorrhage. Moderate parenchymal atrophy. No abnormal extra-axial fluid collection. No midline shift. Scattered white matter hypodensities are nonspecific, likely related to chronic microvascular angiopathy. Skull base and calvarium: The visualized paranasal sinuses and mastoid air cells demonstrate no acute or significant findings. The visualized orbits are grossly unremarkable. No skull fractures. IMPRESSION: Chronic changes without acute intracranial abnormality. Please note that all CT scans at this facility use dose modulation, iterative reconstruction, and/or weight-based dosing when appropriate to reduce radiation dose to as low as reasonably achievable. Dictated by Kavita Menendez MD @ 06/08/2025 3:46:52 PM (Electronically Signed)
[2025-06-08] MEDS: 0.9 % SODIUM CHLORIDE 500 ML 500 ML IV ×2 (15:25→17:23)
[2025-06-08 15:32] LABS: Lactate Sepsis w/Reflex* 3.3 mmol/L (0.5-1.9)
[2025-06-08 15:35] LABS: Hematocrit* 35.9 % (37.0-53.0); Hemoglobin* 11.3 gm/dL (13.5-17.5); Immature Granulocytes Abs Auto 0.01 K/uL (0.00-0.30); Immature Granulocytes Pct Auto 0.1 %; Lymphocytes Absolute Auto 1.67 K/uL (0.90-2.90); Mean Corpuscular HGB Conc 32 gm/dL (32-36); Mean Corpuscular Hemoglobin 29 pg (26-34); Mean Corpuscular Volume 91 fL (80-100); RDW Coefficient of Variation % 14.4 % (11.5-15.5); Red Blood Count* 3.93 m/uL (4.30-5.90); White Blood Count* 6.92 K/uL (4.50-11.00)
[2025-06-08 15:36] LABS: Slide Review Reflex No
--- NOTE | 2025-06-08 15:40 | ED.GENADULT ---
HPI - General Adult General Date Seen: 06/08/25 Chief complaint: Weakness Stated complaint: no bowel movements Time Seen by Provider: 06/08/25 13:15 History of Present Illness HPI narrative: Patient is a 79-year-old who is currently at [facility] for rehab after a hip replacement a month ago. He was brought in today after someone on staff there ran into him and thought that he seemed kind of off. He is not exactly sure what that person was worried about, but he does feel like he is just moving little slower today, maybe having little difficulty with word finding. He has also had headache for the past couple of days, it is not very bad right now but has been worse at times. He has not had any nausea vomiting, no diarrhea. Says he is eating and drinking well. His hip is feeling pretty good. He has not had any fevers. Has had a little bit of a cough. No shortness of breath or chest pain. Past medical history is notable for AFib, anticoagulated on Eliquis, metabolic encephalopathy, confusion, delusions, impaired cognition, sepsis, pneumonia, anxiety. He denies tobacco or alcohol use. He speaks in a very quiet voice, he tells me he has a history of some swallowing problems and has worked with PT on that. He says he thinks he might have had a stroke many years ago when he was living in his car, he says he fell sleep and was very hot any woke up and had sharp pains in his head and then it was hard to walk. He was not seen by anybody at that time but he is always that maybe he had a stroke. No cardiovascular disease aside from a atrial fibrillation. He has not noticed any other neurologic symptoms such as weakness, difficulty with coordination, slurred speech, numbness. Related Data Home Medications ?Medication ?Instructions ?Recorded ?Confirmed apixaban 5 mg tablet (Eliquis) 5 mg PO BID 04/24/23 09/05/24 aripiprazole 15 mg tablet 15 mg PO DAILY 04/24/23 09/05/24 atorvastatin 10 mg tablet 10 mg PO QHS 04/24/23 09/05/24 calcium 500 mg (as 2 tab PO BID 04/24/23 09/05/24 carbonate)-vitamin D3 3.125 mcg (125 unit) tablet cholecalciferol (vitamin D3) 25 2,000 unit PO DAILY 04/24/23 09/05/24 mcg (1,000 unit) tablet cyanocobalamin (vitamin B-12) 1,000 mcg PO DAILY 04/24/23 09/05/24 1,000 mcg tablet magnesium oxide 400 mg (241.3 mg 400 mg PO BID 04/24/23 09/05/24 magnesium) tablet metformin 500 mg tablet,extended 500 mg PO DAILY 04/24/23 09/05/24 release 24 hr multivitamin 1 tab PO DAILY 04/24/23 09/05/24 mv-mn-folic 200 mcg-vit K 15 1 cap PO BID 04/24/23 09/05/24 mcg-lutein 5 mg-zeaxanthin 1 mg capsule (PreserVision AREDS 2 Plus Multivit) omeprazole 20 mg capsule,delayed 40 mg PO BID 04/24/23 09/05/24 release venlafaxine 150 mg 150 mg PO DAILY 04/24/23 09/05/24 capsule,extended release 24 hr ferrous sulfate 325 mg (65 mg 325 mg PO DAILY 09/30/23 09/05/24 iron) tablet (Danile-Time) calcium citrate 200 mg PO BID 09/05/24 09/05/24 albuterol sulfate 90 mcg/actuation 1 inh inhalation QID PRN 09/07/24 09/07/24 breath activated powder inhaler metoprolol succinate 25 mg 75 mg PO DAILY 09/07/24 09/07/24 tablet,extended release 24 hr (Toprol XL) Previous Rx's ?Medication ?Instructions ?Recorded oseltamivir 30 mg capsule (Tamiflu) 30 mg PO BID 5 days #4 caps 09/08/24 Allergies Allergy/AdvReac Type Severity Reaction Status Date / Time Sulfa (Sulfonamide Allergy Mild Rash Verified 09/05/24 09:35 Antibiotics) sulfamethoxazole Allergy Mild Rash Verified 09/05/24 09:35 trimethoprim Allergy Mild Rash Verified 09/05/24 09:35 Review of Systems Status of ROS: Reports: 10 or more systems reviewed and unremarkable except as noted in History and below [facility] Medical History Major depression ?F32.9 - Major depressive disorder, single episode, unspecified (ICD-10) Uncontrolled diabetes mellitus Lumbar disc herniation (04/13/10) ?M51.26 - Other intervertebral disc displacement, lumbar region (ICD-10) Impaired cognition ?R41.89 - Other symptoms and signs involving cognitive functions and awareness (ICD-10) Hypertension (04/13/10) ?I10 - Essential (primary) hypertension (ICD-10) Bipolar disorder, unspecified ?F31.9 - Bipolar disorder, unspecified (ICD-10) Hyperosmolarity syndrome ?E87.0 - Hyperosmolality and hypernatremia (ICD-10) Gastroesophageal reflux (04/13/10) ?K21.9 - Gastro-esophageal reflux disease without esophagitis (ICD-10) COPD (chronic obstructive pulmonary disease) ?J44.9 - Chronic obstructive pulmonary disease, unspecified (ICD-10) Atrial fibrillation, chronic ?I48.20 - Chronic atrial fibrillation, unspecified (ICD-10) Diabetes mellitus, type II ?E11.9 - Type 2 diabetes mellitus without complications (ICD-10) Metabolic encephalopathy ?G93.41 - Metabolic encephalopathy (ICD-10) Surgical History Hx of appendectomy ?Z90.49 - Acquired absence of other specified parts of digestive tract (ICD-10) History of carpal tunnel release ?Z98.890 - Other specified postprocedural states (ICD-10) Hx of cholecystectomy ?Z90.49 - Acquired absence of other specified parts of digestive tract (ICD-10) H/O submandibular gland removal ?Z98.890 - Other specified postprocedural states (ICD-10) ?Z90.89 - Acquired absence of other organs (ICD-10) Hx of hernia repair ?Z98.890 - Other specified postprocedural states (ICD-10) ?Z87.19 - Personal history of other diseases of the digestive system (ICD-10) Hx of tonsillectomy ?Z90.89 - Acquired absence of other organs (ICD-10) History of gastric bypass ?Z98.84 - Bariatric surgery status (ICD-10) Social History Narrative: Patient lives in [place], [address], by himself. He is estranged from his family except his son, Jaun, who lives in [place]. His son does not have a telephone and cannot be contacted easily. If possible he would have his son Jaun be power of assistant prosecuting attorney for healthcare decisions. He also indicates a friend and neighbor named Whit could be making decisions if necessary. He indicates full code status at this time. He gets healthcare through the [facility]. 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 What is your current living situation?: I presently have a place to live Problems where you live: no known problems Problems where you live details: N/A In the past 12 months, utilities in danger of being shut off: no In past 12 months, lack of transportation kept you from medical appts, meetings, work, or getting things needed for daily living: yes In the past 12 mos, have been you worried that your food would run out before you had money to buy more?: sometimes true In the past 12 mos, the food you bought just didn't last and you didn't have money to buy more?: sometimes true Smoking Status: Former smoker Do you use any of these nicotine containing products: None Second hand tobacco smoke exposure: No How often do you have a drink containing alcohol: monthly or less How many standard drinks containing alcohol do you have on a typical day: 1 or 2 How often do you have six or more drinks on one occasion: Never AUDIT-C Alcohol total score: 1 Non-prescribed substance use: denies use How often does anyone, including family, friends and others, physically hurt you: never How often does anyone, including family, friends and others, insult or talk down to you: never How often does anyone, including family, friends and others, threaten you with harm: never How often does anyone, including family, friends and others, scream or curse at you: never service: Yes Health Related Social Needs: food insecurity (Z59.41) and transportation insecurity (Z59.82) Exam Narrative: Exam Narrative: Vital signs reviewed In general, an alert, nontoxic elderly male. Head: Normocephalic, atraumatic. Eyes: Sclera clear. Pupils equal and reactive. ENT: Mucous membranes moist. Neck: Supple without adenopathy. Heart: Regular rate and rhythm without murmur. Lungs: Clear. No increased work of breathing, crackles or wheezes. Abdomen: Soft, nontender to palpation. Extremities: Well perfused, pulses intact. No significant edema. Neurologic: Alert, conversant. Voice is very quiet, but speech is fluent, every once in a while he pauses to retrieve the word, but does not have any evidence of dysarthria or aphasia. Face is symmetric, strength is 5 of 5 in bilateral upper and lower extremities. Sensation intact to light touch. Gait is slow but stable. Skin: Warm, dry well perfused. Affect: Normal. Const: Vital Signs, click to edit/add: Vital Signs - 24 hr 06/08/25 13:15 06/08/25 14:47 06/08/25 17:25 Temperature 98.2 F 97.8 F Pulse Rate [Pulse Oximeter] 103 H 103 H 86 Respiratory Rate 20 20 18 Blood Pressure [Ri ght Upper Arm] 90/64 117/66 126/67 Pulse Oximetry 97 99 98 Oxygen Delivery Me thod Room Air Room Air Room Air Course Course ED Course: Patient presents with possibly mildly altered cognition, I do not find any focal abnormalities on exam. I think a CT scan of his head is reasonable given his recent headaches and anticoagulation. Other diagnostic considerations would be electrolyte abnormality, dehydration, infection. A viral swab was done in triage and this is negative. I reviewed the CT scan of his head, this is negative for hemorrhage, read as negative for any acute findings per Radiology. I do not find that he has any concerning neurologic findings to suggest stroke at this time, I do not think further neuroimaging is needed. The nurse did speak with the staff member at his facility who recommended he come in. She had reported that he just seemed a little forgetful today, was trying to use the wrong runner out for his phone for example and was not using his walker which he usually does. He is in an independent apartment and she questions whether not he needs to be in assisted living, but it sounds like he is not interested in that. His labs are notable for an elevated BUN, his creatinine is 1.4, which is in the normal range but up from his baseline of 1. I think he probably is somewhat dehydrated, we gave him a L of fluid here. His initial lactate was 3.3 but is 1.1 after fluid suggesting this is likely related to dehydration as well. His CRP was normal, TSH was normal, LFTs normal and CBC showed a normal white blood cell count and a mildly low hemoglobin of 11.3, which is at his baseline. I think it is reasonable to discharge home, continue to work on hydration, primary care follow-up if not improving over the next few days. Return any time for acute new symptoms such as neurologic changes, severe headache, fevers, or other worsening. Vital Signs Vital signs: Initial Vital Signs Temperature 98.2 F 06/08/25 13:15 Temperature Source Temporal Artery Scan 06/08/25 13:15 Pulse Rate 103 H 06/08/25 13:15 Respiratory Rate 20 06/08/25 13:15 Blood Pressure 90/64 06/08/25 13:15 Blood Pressure Mean 72 06/08/25 13:15 Blood Pressure Position Sitting 06/08/25 13:15 Pulse Oximetry 97 06/08/25 13:15 Oxygen Delivery Method Room Air 06/08/25 13:15 Vital Signs Temperature 98.2 F 06/08/25 13:15 Pulse Rate 103 H 06/08/25 13:15 Respiratory Rate 20 06/08/25 13:15 Blood Pressure 90/64 06/08/25 13:15 Pulse Oximetry 97 06/08/25 13:15 Oxygen Delivery Method Room Air 06/08/25 13:15 Temperature 97.8 F 06/08/25 17:25 Pulse Rate 86 06/08/25 17:25 Respiratory Rate 18 06/08/25 17:25 Blood Pressure 126/67 06/08/25 17:25 Pulse Oximetry 98 06/08/25 17:25 Oxygen Delivery Method Room Air 06/08/25 17:25 Medications Administered Medications: Discontinued Medications Generic Name Dose Route Start Last Admin Trade Name Freq PRN Reason Stop Dose Admin Acetaminophen 1,000 mg 06/08/25 17:35 06/08/25 17:48 Acetaminophen 500 Mg Tablet PO 06/08/25 17:36 1,000 mg ONCE ONE Administration Sodium Chloride 500 mls @ 500 mls/hr 06/08/25 14:59 06/08/25 17:23 0.9 % Sodium Chloride 500 Ml IV 06/08/25 15:58 Infused .Q1H ONE Infusion Sodium Chloride 500 mls @ 500 mls/hr 06/08/25 16:09 06/08/25 19:00 0.9 % Sodium Chloride 500 Ml IV 06/08/25 17:08 Infused .Q1H ONE Infusion Medical Decision Making Lab Data Labs: Lab Results 06/08/25 06/08/25 06/08/25 Range/Units 12:25 15:27 18:09 WBC 6.92 (4.50-11.00) K/uL RBC 3.93 L (4.30-5.90) m/uL Hgb 11.3 L (13.5-17.5) gm/dL Hct 35.9 L (37.0-53.0) % MCV 91 (80-100) fL MCH 29 (26-34) pg MCHC 32 (32-36) gm/dL RDW Coeff of Maurice 14.4 (11.5-15.5) % Plt Count 395 (140-440) K/uL Neut % (Auto) 62.0 (42.0-72.0) % Lymph % (Auto) 24.1 (20-44) % [place] % (Auto) 10.8 (0.0-11.0) % Eos % (Auto) 2.9 (0.0-7.0) % Baso % (Auto) 0.1 (0.0-3.0) % Neut # (Auto) 4.28 (1.7-7.0) K/uL Lymph # (Auto) 1.67 (0.90-2.90) K/uL [place] # (Auto) 0.70 (0.00-0.90) K/UL Eos # (Auto) 0.20 (0.00-0.50) K/uL Baso # (Auto) 0.01 (0.00-0.30) K/uL Abs Immat Gran (auto) 0.01 (0.00-0.30) K/uL Imm/Tot Granulo (auto) 0.1 % Sodium 135 (135-149) mmol/L Potassium 4.9 (3.6-5.1) mmol/L Chloride 94 L (96-114) mmol/L Carbon Dioxide 30 (20-32) mmol/L Anion Gap 11 (7-15) mEq/L BUN 46 H (7-30) mg/dL Creatinine 1.4 (0.5-1.5) mg/dL Estimated Creat Clear 42.24 Estimated GFR 52 ml/min Glucose 126 H (60-115) mg/dL Lactate 3.3 H 1.1 (0.5-1.9) mmol/L Calcium 10.2 (8.4-10.6) mg/dL Total Bilirubin 0.5 (0.1-1.5) mg/dL Direct Bilirubin 0.3 (0.0-0.5) mg/dL AST 20 (12-35) U/L ALT 14 (4-50) U/L Alkaline Phosphatase 140 (40-150) U/L C-Reactive Protein < 0.5 L (0.5-1.0) mg/dL Total Protein 6.5 (6.0-8.3) g/dL Albumin 4.0 (3.3-5.0) g/dL TSH 2.040 (0.270-4.200) uIU/mL SARS-CoV-2 (PCR) Negative SARS-CoV-2 (Negative) Influenza Type A (PCR) Negative PCR FLU A (Negative) Influenza Type B (PCR) Negative PCR FLU B (Negative) RSV (PCR) Negative PCR RSV (Negative) Imaging Data CT scan - head: Attestation: I have reviewed the pertinent imaging results. Radiologist's impression: Patient: Gio Mariano JR MR#: [id number] : 1945 Acct:[id number] Loc: ED Service Date: 06/08/[address]: Ordering Physician: Radha Apodaca M.D. Date of Service: 06/08/25 Procedure(s): CT head/brain wo con Accession Number(s): [id number] cc: Radha Apodaca M.D.; Sonia Ordaz M.D.~ For Patients: As a result of the Cures Act, medical imaging exams and procedure reports are released immediately into your electronic medical record. You may view this report before your referring provider. If you have questions, please contact your health care provider. INDICATION: . Headache TECHNIQUE: CT head without contrast. COMPARISON: None. FINDINGS: No acute infarct or intracranial hemorrhage. Moderate parenchymal atrophy. No abnormal extra-axial fluid collection. No midline shift. Scattered white matter hypodensities are nonspecific, likely related to chronic microvascular angiopathy. Skull base and calvarium: The visualized paranasal sinuses and mastoid air cells demonstrate no acute or significant findings. The visualized orbits are grossly unremarkable. No skull fractures. IMPRESSION: Chronic changes without acute intracranial abnormality. Please note that all CT scans at this facility use dose modulation, iterative reconstruction, and/or weight-based dosing when appropriate to reduce radiation dose to as low as reasonably achievable. Dictated by Kavita Menendez MD @ 06/08/2025 3:46:52 PM Discharge Plan Discharge Clinical Impression: Dehydration Patient Disposition: er [facility] Condition: Stable Additional Instructions: Test today suggest that you are somewhat dehydrated. Your head CT does not show any acute problems, and other lab work is reassuring. Make sure you are continuing to work on hydration. If you are feeling worse, had new symptoms such as fevers, focal weakness, difficulty breathing etcetera, return to the ER at any time. Prescriptions: No Action cholecalciferol (vitamin D3) 25 mcg (1,000 unit) tablet 2,000 unit PO DAILY cyanocobalamin (vitamin B-12) 1,000 mcg tablet 1,000 mcg PO DAILY multivitamin Tablet 1 tab PO DAILY venlafaxine 150 mg capsule,extended release 24hr 150 mg PO DAILY PreserVision AREDS 2 Plus MV 200 mcg-15 mcg- 5 mg-1 mg capsule 1 cap PO BID magnesium oxide 400 mg (241.3 mg magnesium) tablet 400 mg PO BID omeprazole 20 mg capsule,delayed release(DR/EC) 40 mg PO BID calcium carbonate-vitamin D3 500 mg-3.125 mcg (125 unit) tablet 2 tab PO BID metformin 500 mg tablet extended release 24 hr 500 mg PO DAILY Eliquis 5 mg tablet 5 mg PO BID aripiprazole 15 mg tablet 15 mg PO DAILY atorvastatin 10 mg tablet 10 mg PO QHS calcium citrate 200 mg (950 mg) tablet 200 mg PO BID albuterol sulfate 90 mcg/actuation aerosol powdr breath activated 1 inh inhalation QID PRN metoprolol succinate [Toprol XL] 25 mg tablet extended release 24 hr 75 mg PO DAILY oseltamivir [Tamiflu] 30 mg capsule 30 mg PO BID 5 Days Qty: 4 0RF ferrous sulfate [Daniel-Time] 325 mg (65 mg iron) tablet 325 mg PO DAILY Stand Alone Forms: [facility] Info Instructions
[2025-06-08 15:51] LABS: Albumin* 4.0 g/dL (3.3-5.0); Chloride* 94 mmol/L (96-114); Potassium* 4.9 mmol/L (3.6-5.1); Sodium* 135 mmol/L (135-149)
[2025-06-08 15:53] LABS: Blood Urea Nitrogen* 46 mg/dL (7-30); Creatinine* 1.4 mg/dL (0.5-1.5); Est. Creatinine Clearance* 42.24; Estimated Glomerular Filt Rate 52 ml/min
[2025-06-08 15:54] LABS: Alanine Aminotransferase* 14 U/L (4-50); Alkaline Phosphatase* 140 U/L (40-150); Anion Gap 11 mEq/L (7-15); Aspartate Amino Transferase* 20 U/L (12-35); Bilirubin Direct* 0.3 mg/dL (0.0-0.5); Bilirubin Total* 0.5 mg/dL (0.1-1.5); Calcium* 10.2 mg/dL (8.4-10.6); Carbon Dioxide* 30 mmol/L (20-32); Glucose* 126 mg/dL (60-115); Total Protein* 6.5 g/dL (6.0-8.3)
[2025-06-08 16:24] LABS: TSH With Reflex to FT4* 2.040 uIU/mL (0.270-4.200)
[2025-06-08 17:25] VITALS: BP 126/67; PULSE 86; RESP 18; TEMP 36.6; O2SAT 98
[2025-06-08] MEDS: ACETAMINOPHEN 500 MG TABLET 1000 MG PO (17:48)
[2025-06-08 18:13] LABS: Lactate Sepsis 2 Hour 1.1 mmol/L (0.5-1.9)
== END 2025-06-08 20:03 ==
PROVIDERS: Emergency Provider Emergency Medicine; PCP Hospitalist
DX: E86.0 Dehydration (principal); R51.9 Headache, unspecified; I48.91 Unspecified atrial fibrillation; Z79.01 Long term (current) use of anticoagulants
CPT/HCPCS: 36415; 70450; 80048; 80076; 83605; 84443; 85025; 86140; 87631; 93005; 96360; 96361; 99284; 99285; A9270; J7030